=== PATIENT | female | born 1935 | race Caucasian/White ===

== ENCOUNTER → 2017-07-24 11:06 | Outpatient (CLI) | payer MEDICARE, SELFPAY ==
[2017-07-24 12:22] LABS: Absolute Lymphocyte Count 1.98 X10^3/ul (0.83-4.51); Absolute Neutrophil Count 5.2 X10^3/uL (2.0-7.7); Basophil# 0.03 X10^3/uL; Basophil% 0.4 % (0-1); Eosinophil# 0.13 X10^3/uL; Eosinophils% 1.7 % (0-5); Hematocrit 43.9 % (37-47); Hemoglobin 14.3 g/dl (12.0-15.0); Lymphocyte # 1.98 X10^3/ul (4.0); Lymphocyte % 25.2 % (19-41); Mean Corp Hgb Conc 32.6 g/gl (32-36); Mean Corpuscular Hgb 30.5 pg (27.0-32.0); Mean Corpuscular Volume 93.6 fL (81-99); Mean Platelet Vol. 10.6 fl (6.2-12.0); Monocyte# 0.53 X10^3/uL; Monocyte% 6.7 % (0-10); Neutrophil # 5.19 X10^3/uL (2.7-7.7); Neutrophil % 65.9 % (47-70); Platelet Count 262 K/mm3 (150-450); RBC Distribution Width CV 12.9 % (11.6-14.6); RBC Distribution Width SD 43.5 fl (35.1-43.9); Red Blood Count 4.69 M/mm3 (4.2-5.4); White Blood Count 7.9 K/mm3 (4.4-11.0)
[2017-07-24 12:23] LABS: International Normalized Ratio 1.6; Prothrombin Time (Protime)PT. 18.5 SECONDS (11.7-14.9)
[2017-07-24 12:36] LABS: POSITIVE COUNT NO; POSITIVE DIFFERENTIAL NO; POSITIVE MORPHOLOGY NO
[2017-07-24 12:50] LABS: AST(SGOT) 21 U/L (15-37); Alanine Aminotransfer ALT/SGPT 26 U/L (13-56); Albumin, Serum 3.6 g/dL (3.2-5.0); Alkaline Phosphatase 87 U/L (45-117); Anion Gap 8 (5-15); BUN 10 mg/dL (7-18); BUN/Creat Ratio 15.4 RATIO (10-20); Calcium,Total 8.4 mg/dL (8.5-10.1); Chloride 100 mmol/L (98-107); Cholesterol 167 mg/dL (200); Creatinine, Serum 0.65 mg/dL (0.55-1.02); EST Glomerular Filtration Rate 93 mL/min (>60); Est Glom Filt Rate - Afr Amer 113 mL/min (>60); Globulin 3.7 g/dL (2.2-4.2); Glucose 82 mg/dL (74-106); High Density Lipoprotein 39 mg/dL; Potassium 3.8 mmol/L (3.5-5.1); Protein, Total 7.3 g/dL (6.4-8.2); Sodium Level 138 mmol/L (136-145); Triglycerides 123 mg/dL; Very Low Density Lipoprotein 25 mg/dL (5-40)
== END ==
PROVIDERS: Family Provider Family Medicine; PCP Family Medicine; Visit Provider Family Medicine
DX: I48.91 Unspecified atrial fibrillation (principal); G45.9 Transient cerebral ischemic attack, unspecified
CPT/HCPCS: 36415; 80053; 80061; 85025; 85610

== ENCOUNTER 2017-07-31 13:39 | Emergency (ER) | payer MEDICARE, SELFPAY ==
[2017-07-31 13:40] VITALS: BP 158/84; PULSE 72; RESP 17; TEMP 35.8; O2SAT 97; BMI 33.5
[2017-07-31 13:56] VITALS: BP 172/73; PULSE 65; RESP 17; O2SAT 97
[2017-07-31 14:11] LABS: Bedside Glucose 130 mg/dL (70-110)
--- NOTE | 2017-07-31 14:13 | RAD_ITS ---
STUDY: X-RAY CHEST REASON FOR EXAM: Female, 82 years old. Stroke workup. TECHNIQUE: Single AP portable view of the chest. COMPARISON: 10/01/2016. FINDINGS: The lungs are clear and expanded. There is no demonstrated pleural abnormality. Sternal cerclage wires and vascular clips are present from a prior sternotomy and coronary artery bypass graft procedure (CABG). Normal mediastinum and sue. Normal visualized pulmonary arteries. Normal visualized aortic arch and descending thoracic aorta. Normal visualized thoracic spine. Normal visualized ribs, clavicles, and shoulders. There is no demonstrated abnormality of the visualized soft tissue structures of the upper abdomen. RAD/Chest 1 View IMPRESSION: No acute chest disease. Electronically Signed: Juan Martinez MD at 14:46 EST , Service support ,
--- NOTE | 2017-07-31 14:13 | EKG12_ITS ---
Test Reason : NEURO S
--- NOTE | 2017-07-31 14:13 | CT_ITS ---
STUDY: CT BRAIN WITHOUT CONTRAST REASON FOR EXAM: Female, 82 years old. Speech changes. Difficulty speaking. RADIATION DOSAGE (If Supplied By Facility): CTDIvol = ( 44.99 ) mGy, DLP = ( 762.36 ) mGycm TECHNIQUE: Transaxial CT imaging of the brain was performed without administration of intravenous contrast material. Individualized dose optimization techniques were used for this CT. COMPARISON: None. FINDINGS: Normal soft tissue structures. Normal calvarium. There is mild cerebral atrophy with widening of the extra-axial spaces and ventricular dilatation. There are areas of decreased attenuation within the white matter tracts of the supratentorial brain, consistent with microvascular disease changes. Normal basal ganglia and thalami. Normal brainstem. There is mild cerebellar atrophy. There is no intracranial hemorrhage. There are no findings of an acute ischemic infarction. Normal visualized paranasal sinuses. CT/Brain/Head without Contrast IMPRESSION: Mild atrophy and White matter disease. No acute abnormalities. Electronically Signed: Juan Martinez MD at 14:48 EST , Service support ,
[2017-07-31 14:21] LABS: Absolute Lymphocyte Count 2.39 X10^3/ul (0.83-4.51); Absolute Neutrophil Count 4.2 X10^3/uL (2.0-7.7); Basophil# 0.03 X10^3/uL; Basophil% 0.4 % (0-1); Eosinophils% 2.7 % (0-5); Hematocrit 41.6 % (37-47); Hemoglobin 13.9 g/dl (12.0-15.0); Lymphocyte # 2.39 X10^3/ul (4.0); Lymphocyte % 32.5 % (19-41); Mean Corp Hgb Conc 33.4 g/gl (32-36); Mean Corpuscular Hgb 30.8 pg (27.0-32.0); Mean Platelet Vol. 10.4 fl (6.2-12.0); Monocyte% 6.8 % (0-10); Neutrophil # 4.22 X10^3/uL (2.7-7.7); Neutrophil % 57.5 % (47-70); Platelet Count 215 K/mm3 (150-450); RBC Distribution Width CV 12.6 % (11.6-14.6); RBC Distribution Width SD 42.7 fl (35.1-43.9); Red Blood Count 4.52 M/mm3 (4.2-5.4); White Blood Count 7.4 K/mm3 (4.4-11.0)
[2017-07-31 14:22] LABS: POSITIVE COUNT NO; POSITIVE DIFFERENTIAL NO; POSITIVE MORPHOLOGY NO
[2017-07-31 14:28] LABS: International Normalized Ratio 1.8; Partial Thromboplast Time 29.8 Seconds (24.1-36.2); Prothrombin Time (Protime)PT. 20.8 SECONDS (11.7-14.9)
[2017-07-31 14:33] LABS: Anion Gap 5 (5-15); BUN 7 mg/dL (7-18); BUN/Creat Ratio 10.3 RATIO (10-20); Calcium,Total 8.2 mg/dL (8.5-10.1); Chloride 103 mmol/L (98-107); Creatinine, Serum 0.68 mg/dL (0.55-1.02); EST Glomerular Filtration Rate 89 mL/min (>60); Est Glom Filt Rate - Afr Amer 107 mL/min (>60); Estimated Creatinine Clearance 33.86 ml/min; Glucose 132 mg/dL (74-106); Potassium 3.9 mmol/L (3.5-5.1); Sodium Level 139 mmol/L (136-145)
[2017-07-31 15:13] VITALS: BP 129/93; PULSE 60; PULSE 61; RESP 17; O2SAT 95; O2SAT 96
[2017-07-31 16:30] VITALS: BP 162/78; PULSE 59; PULSE 60; RESP 15; RESP 16; O2SAT 98
--- NOTE | 2017-07-31 16:32 | ED.VISSUMM ---
- ER Visit Summary Date of Service: 07/31/17 Chief Complaint: Slurred speech History of Present Illness: The patient is a 82 F transient slurred speech starting at 130 today. States that frontal headache. No falls or head injuries. No visual changes. She is on Coumadin for history of PE and paroxysmal atrial fibrillation. A week ago INR was 1.6. She has had multiple TIAs in the past. Always speech changes. She is on cholesterol medications. States speech is resolving. No hemiparesis. No other complaints. No recent illness. Physical Examination: General: Alert and oriented ?3, no acute distress HEENT: Normocephalic, atraumatic. Moist mucosa membranes Neck: supple, nontender. Cardiovascular: Regular rate and rhythm, no murmurs Respiratory: Normal breath sounds, symmetric, no distress Abdomen: Soft, nontender, nondistended Extremities: Nontender, no edema, pulses intact ?4 Neuro: NIH equal to 1 for paresthesia of left arm and left leg. Test Results: EKG: Sinus rhythm rate of [address] or T-wave changes. CBC, BMP, troponin normal. INR 1.8. Emergency Department Course and Treatment: Evaluation there is no speech changes, NIH is a 1 for paresthesias. Bat B workup initiated. Results negative except for noting a slightly subtherapeutic INR 1.8. On reevaluation only had mild paresthesia left lower extremity. Patient currently on optimal treatment with aspirin and Coumadin therapy, she is on lipid medications. Discussed with the patient and daughter in the room. Discussed options for monitoring the hospital versus outpatient follow-up with PCP with bridging of her Coumadin. She would like to workup as an outpatient. I did speak with her PCP, Dr. Ochoa, agrees with a Lovenox bridge. She will be bridged with a 1.5mg/kg daily. Patient will have Coumadin draw tomorrow as scheduled in the clinic. He states he is already initiated MRI and MRA studies as an outpatient. Discussed this with patient and family who understands and agrees with plan. She will return if any worsening symptoms. Lovenox given the ED. Treatment Plan: Lovenox bridge Disposition: [] Impression: 1. TIA 2. Subtherapeutic INR This note was generated with Spreakeration software. It may contain incorrect words, spelling, and punctuation that were not noted in review of the chart prior to signing ED Disposition - Plan for ED Patient: Disposition: Home or Assisted Living Chief Complaint: Neuro S/Sx Diagnosis: TIA (transient ischemic attack), Subtherapeutic international normalized ratio (INR) Instructions: ED Transient Ischemic Attack Prescriptions: Enoxaparin Sodium [Lovenox] 120 mg SQ DAILY #7 syringe Referrals: Joao Simon MD [Primary Care Provider] - 1 Day Additional Instructions: INR 1.8. Have INR checked as scheduled in office tomorrow to see if Lovenox needs to be continued.
[2017-07-31] MEDS: Enoxaparin 120 MG/0.8 ML Syringe SC (16:37)
[2017-07-31 16:42] VITALS: BP 162/87; PULSE 64; RESP 18; O2SAT 99
== END 2017-07-31 16:54 | disposition home or self-care (01) ==
PROVIDERS: Emergency Provider Emergency Medicine; Family Provider Family Medicine; PCP Family Medicine
DX: G45.9 Transient cerebral ischemic attack, unspecified (principal); R79.1 Abnormal coagulation profile; Z86.73 Personal history of transient ischemic attack (TIA), and cerebral infarction without residual deficits; I25.10 Atherosclerotic heart disease of native coronary artery without angina pectoris; I10 Essential (primary) hypertension; E78.00 Pure hypercholesterolemia, unspecified; I48.0 Paroxysmal atrial fibrillation; Z86.711 Personal history of pulmonary embolism; Z95.1 Presence of aortocoronary bypass graft; Z79.01 Long term (current) use of anticoagulants; Z79.82 Long term (current) use of aspirin; Z79.899 Other long term (current) drug therapy
CPT/HCPCS: 70450; 71045; 80048; 82962; 84484; 85025; 85610; 85730; 93005; 96372; 99284; A4216

== ENCOUNTER → 2017-08-01 10:35 | Outpatient (CLI) | payer MEDICARE, SELFPAY ==
[2017-08-01 12:07] LABS: International Normalized Ratio 1.7; Prothrombin Time (Protime)PT. 20.1 SECONDS (11.7-14.9)
== END ==
PROVIDERS: Family Provider Family Medicine; PCP Family Medicine; Visit Provider Family Medicine
DX: I48.91 Unspecified atrial fibrillation (principal)
CPT/HCPCS: 36415; 85610

== ENCOUNTER → 2017-08-09 09:26 | Outpatient (CLI) | payer MEDICARE, SELFPAY ==
--- NOTE | 2017-08-09 10:15 | MRI_ITS ---
MRA Neck WO/W Contrast INDICATION: tia x 4 since 03/2017, speech disturbances, lt sided weakness COMPARISON: None TECHNIQUE: MR angiogram of the arterial structures of the neck and 2-D sweg-[id number]-ikwynq and 3-D phmr-oi-xwvzmx technique without and with IV contrast. 8 mL of Gadavist were given intravenously. 3-D admit reformatted images are provided. FINDINGS: Mild motion is present at the arch. Origins of the common carotid arteries appear within normal limits. Common carotid arteries are normal and symmetric in caliber. Mild luminal irregularities are noted at the carotid bifurcations without evidence of significant luminal narrowing at the origin of the left internal carotid artery. There is minimal luminal narrowing suggested at the origin of the right internal carotid artery. Internal carotid arteries are otherwise normal and symmetric. Posterior circulation demonstrates Origins of the vertebral arteries are not well appreciated. The vertebral arteries are normal and symmetric without evidence of luminal irregularity to the confluence to the basilar artery. MRI/MRA Neck WITH and W/O Contrast IMPRESSION: Minimal luminal irregularity suggested at the carotid bifurcations without evidence of significant luminal narrowing at the origin of the left internal carotid artery and questionable mild luminal narrowing at the origin of the right internal carotid artery. at 1236 Reported and signed by: Rossi Haro MD Electronically Signed: Rossi Haro MD at 11:34 EDT Tel , Service support ,
--- NOTE | 2017-08-09 10:15 | MRI_ITS ---
MRA Head W/O Contrast INDICATION: tia x 4 since 03/2017, speech disturbances, lt sided weakness COMPARISON: None TECHNIQUE: MR angiogram and 3-D mpvc-qe-oddjyu technique with 3-D reformatted images. FINDINGS: There is symmetric flow related signal and intracranial portions of the internal carotid arteries with symmetric supply to the anterior and middle cerebral arteries and their branching vessels. The anterior communicating artery is patent. Posterior circulation demonstrates normal appearance of the basilar artery, basilar artery gives rise to the left posterior cerebral artery, the right posterior cerebral artery appears in origin. MRI/MRA Head ONLY without Contrast IMPRESSION: No evidence of aneurysm formation or large vessel occlusion within the resolution limitations of this modality. origin of the right posterior cerebral artery, normal variation. at 1237 Reported and signed by: Rossi Haro MD Electronically Signed: Rossi Haro MD at 11:35 EDT Tel , Service support ,
== END ==
PROVIDERS: Family Provider Family Medicine; PCP Family Medicine; Visit Provider Family Medicine
DX: Z86.73 Personal history of transient ischemic attack (TIA), and cerebral infarction without residual deficits (principal)
CPT/HCPCS: 70544; 70549; A9585

== ENCOUNTER 2017-10-05 10:47 | Outpatient (RCR) | payer MEDICARE, SELFPAY ==
--- NOTE | 2017-10-05 11:58 | HP.PTEVAL ---
Patient's Visit Information ERASTO RICHARDSON is a 82 year old F referred to Physical Therapy by Joao Simon with a diagnosis of FALL RISK ,BALANCE. Date of Evaluation: 10/05/17 Physical Therapist: Westley Nance PT, - Visit Plan Frequency: 2x /Week Duration: 4 Weeks Plan: balance training,endurance activities ,PRE'S BLE,nutep - Subjective Subjective: This 82 y/o female presents to physical therapy with fall risk and balance. Patient has had balance issues past 6 months ago when spouse . Patient last incidence of falling 6 months ago. Patient fell at home legs gives way. Patient uses rollator rollator community distance. Patient reports no dizziness . Patient c/o weakness since passeed away. Patient does steps one step at a time with rail.Patient is able to do ADL'S but has limiations with stamina. 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 SOCAIL: lives alone condo. VOCATION: retired - Pain Bilateral Knee Pain Intensity (Out of 10): 4 Pain Intensity Range: 10 Comment: with walking - Objective POSTURE: mild foward posture. GAIT: ambulates with with no device slow [place] mild foward posture ,reciprocal pattern. BALANCE: good -. NEURO: intact. MMT: quads/hams 4-/5,hip flexion 4-/5,abd 3+/5,ankle 4/5. AROM: supine knee flexion 0-130 degrees. FLEXABLITY: hams min tight. STAIRS: ascend/descend 12 steps with rail one step at atime - Balance Scores Functional Gait Assessment Score: 8 % Disability: 73.3400 CATSIB Score (Max score 120 seconds): 85 - Goals Goal 1:: Independant with HEP Goal Time Frame: 4-6 Weeks Goal 2:: Patient increase strength BLE 4/5 quads/hams/hip to improve function to decrease risk of falls Goal Time Frame: 4-6 Weeks Goal 3:: Patient to improve CATSIB score to 100 to decrease risk of falls. Goal Time Frame: 4-6 Weeks Goal 4:: Patient to improve to improve function gait assessment score to 10-12 to decrease risk of falls. Goal Time Frame: 4-6 Weeks Goal 5:: Patient to improve to improve quality of gait with rollator at community distance and ambulate no device at home Goal Time Frame: 4-6 Weeks - Rehabilitation Potential Physical Therapy Diagnosis: This patient has impairments with balance deficits and weakness in legs causing difiicits in gait,fall risk and decrease stamina thus benifit from skilled PT Rehabilitation Potential: Good - Anticipated Interventions Patient/Client Instruction: Educate patient on: Condition, Plan of Care For the Purpose of:: To decrease pain, To increase oxygenation perfusion, To improve ability to perform ADL's, To increase tolerance to activity/condition/position, To improve ability of physical actions for home/community/work/leisure, To improve health of tissue, To decrease soft tissue restriction, To improve endurance, To improve safety with gait, To foster healthy habits, To improve ability to perform tasks related to life management Therapeutic Exercise to Include: Strength training, Endurance training, Balance training, Flexibilty training, Gait and locomotor training For the Purpose of:: To decrease pain, To improve muscle performance and motor function, To improve ability to perform ADL's, To increase tolerance to activity/condition/position, To improve performance and independence with ADL's, To improve ability of physical actions for home/community/work/leisure, To improve gait and locomotor functions, To increase flexibility/ROM, To improve balance, To improve safety with gait, To assume or resume ADL's, To improve ability to perform tasks related to life management Functional Training to Include: Gait training For the Purpose of:: To improve muscle performance and motor function, To increase tolerance to activity/condition/position, To improve performance and independence with ADL's, To improve ability of physical actions for home/community/work/leisure, To improve health of tissue, To decrease soft tissue restriction, To increase flexibility/ROM, To improve ability to perform tasks related to life management Thank you for the opportunity to evaluate your patient. For Medicare and Medicare HMO plans, please review the plan of care and approve it. It will need to be FAXED BACK to us at [phone] for Medicare purposes. Please let me know if there are questions or concerns regarding this plan of care. Physician Signature: Date:
--- NOTE | 2017-12-21 12:15 | HP.PTDCNRP_ITS ---
HP - Discharge Summary (1) - Patient Information ERASTO RICHARDSON was seen in my office for initial evaluation on 10/05/17. The following Plan of Care was established for this patient: Initial Frequency: 2x /Week Initial Duration: 4 Weeks - Anticipated Interventions Patient/Client Instruction: Educate patient on: Condition, Plan of Care For the Purpose of:: To decrease pain, To increase oxygenation perfusion, To improve ability to perform ADL's, To increase tolerance to activity/condition/ position, To improve ability of physical actions for home/community/work/leisure , To improve health of tissue, To decrease soft tissue restriction, To improve endurance, To improve safety with gait, To foster healthy habits, To improve ability to perform tasks related to life management Therapeutic Exercise to Include: Strength training, Endurance training, Balance training, Flexibilty training, Gait and locomotor training For the Purpose of:: To decrease pain, To improve muscle performance and motor function, To improve ability to perform ADL's, To increase tolerance to activity /condition/position, To improve performance and independence with ADL's, To improve ability of physical actions for home/community/work/leisure, To improve gait and locomotor functions, To increase flexibility/ROM, To improve balance, To improve safety with gait, To assume or resume ADL's, To improve ability to perform tasks related to life management Functional Training to Include: Gait training For the Purpose of:: To improve muscle performance and motor function, To increase tolerance to activity/condition/position, To improve performance and independence with ADL's, To improve ability of physical actions for home/ community/work/leisure, To improve health of tissue, To decrease soft tissue restriction, To increase flexibility/ROM, To improve ability to perform tasks related to life management This patient was last seen in our office . Pertinent comments regarding their Physical therapy will appear below: Patient seen for PT for balance but cancelled remander of appointments due making her worse.Thus is d/c. At this point I will be discontinuing this patient from physical therapy. I would be happy to see this patient again in the future if found appropriate by the physician. Thank you! Westley Nance, PT,
== END 2017-10-05 19:00 | disposition home or self-care (01) ==
LOC: PT 10:47
PROVIDERS: Family Provider Family Medicine; PCP Family Medicine; Visit Provider Family Medicine
DX: Z91.81 History of falling (principal); R26.81 Unsteadiness on feet
CPT/HCPCS: 97110; 97162

== ENCOUNTER → 2017-12-25 16:02 | Outpatient (CLI) | payer MEDICARE, SELFPAY ==
[2017-12-25 17:47] LABS: Anion Gap 8 (5-15); BUN 11 mg/dL (7-18); Calcium,Total 8.4 mg/dL (8.5-10.1); Chloride 103 mmol/L (98-107); Cholesterol 157 mg/dL (200); Creatinine, Serum 0.69 mg/dL (0.55-1.02); EST Glomerular Filtration Rate 87 mL/min (>60); Est Glom Filt Rate - Afr Amer 105 mL/min (>60); Glucose 84 mg/dL (74-106); High Density Lipoprotein 37 mg/dL; Sodium Level 141 mmol/L (136-145); Triglycerides 242 mg/dL; Very Low Density Lipoprotein 48 mg/dL (5-40)
== END ==
PROVIDERS: Family Provider Family Medicine; PCP Family Medicine; Visit Provider Family Medicine
DX: I10 Essential (primary) hypertension (principal)
CPT/HCPCS: 36415; 80048; 80061

== ENCOUNTER → 2018-03-30 05:58 | Outpatient (CLI) | payer MEDICARE, SELFPAY ==
[2018-03-30 08:51] LABS: Hemoglobin 14.3 g/dl (12.0-15.0); Mean Corp Hgb Conc 32.5 g/gl (32-36); Mean Corpuscular Hgb 30.7 pg (27.0-32.0); Mean Corpuscular Volume 94.4 fL (81-99); Mean Platelet Vol. 10.7 fl (6.2-12.0); Platelet Count 240 K/mm3 (150-450); RBC Distribution Width CV 12.8 % (11.6-14.6); Red Blood Count 4.66 M/mm3 (4.2-5.4); Scan Indicated on CBC? Y/N NO; White Blood Count 9.1 K/mm3 (4.4-11.0)
[2018-03-30 09:32] LABS: Anion Gap 8 (5-15); BUN 9 mg/dL (7-18); BUN/Creat Ratio 11.7 RATIO (10-20); Calcium,Total 8.4 mg/dL (8.5-10.1); Chloride 104 mmol/L (98-107); Creatinine, Serum 0.77 mg/dL (0.55-1.02); EST Glomerular Filtration Rate 77 mL/min (>60); Est Glom Filt Rate - Afr Amer 93 mL/min (>60); Glucose 129 mg/dL (74-106); Potassium 3.9 mmol/L (3.5-5.1); Sodium Level 144 mmol/L (136-145); Thyroid Stim Hormone (TSH) 3.88 uIU/mL (0.358-3.74)
--- NOTE | 2018-03-30 11:39 | STRESSREP_ITS ---
Stress Test Report Pharmacologic myocardial perfusion stress test. 82-year-old lady with a history of shortness of breath. Stress protocol: Resting EKG demonstrates normal sinus rhythm with rate of 69 bpm normal intervals and noted resting blood pressure 152/100 mmHg. 0.4 mg of regadenoson was infused per usual protocol followed Intravenous saline flush injection continuous cardiac monitor technician was performed. The maximum heart rate attained was 85 bpm which was 60% of maximum predicted heart rate the maximum workload was 1 metabolic equivalent. At rest there were no ST or T wave changes noted suggest abnormal flow reserve at peak infusion no ST or T wave changes were noted suggest abnormal flow reserve. The resting blood pressure 152/100 with a peak blood pressure of the same and a final blood pressure 140/100. Myocardial perfusion protocol. 14.6 mCi of technetium 99m sestamibi was injected at rest. 0.4 mg of regadenoson was infused per usual protocol. At peak infusion 44.7 mCi of technetium 99m sestamibi was injected stress images were obtained stress and rest images were reconstructed and compared in the short axis. Gated images were also obtained for next Perfusion SPECT analysis: Review of the stress images demonstrate normal uptake of tracer noted in all areas of the myocardium. The resting images similarly demonstrate normal uptake of tracer noted in all areas of the myocardium. No areas of reversibility are noted suggest ischemia. Gated SPECT analysis: The gated ejection fraction is 77%. Conclusion: Normal pharmacologic myocardial perfusion stress test. Preserved ejection fraction.
== END ==
PROVIDERS: Family Provider Family Medicine; PCP Family Medicine; Referring Provider Family Medicine; Visit Provider Family Medicine
DX: R06.02 Shortness of breath (principal)
CPT/HCPCS: 36415; 78452; 80048; 84443; 85027; 93017; A9500; A4216; J2785

== ENCOUNTER → 2018-06-13 10:49 | Outpatient (CLI) | payer MEDICARE, SELFPAY ==
[2018-05-25 10:39] VITALS: BMI 34.7
[2018-06-13 11:00] VITALS: PULSE 100; PULSE 107; PULSE 66; PULSE 71; PULSE 80; PULSE 84; PULSE 87; PULSE 88; O2SAT 90; O2SAT 92; O2SAT 93; O2SAT 94; O2SAT 95; O2SAT 98
--- NOTE | 2018-06-14 09:47 | WT_ITS ---
PSN 6 Minute Walk Test - 6 Minute Walk Test 6 Minute Walk Test: 6 Minute Walk Test PSN:6-Minute Walk Test Start: 06/13/18 11:16 Freq: Status: Active Protocol: RESP.6MINW Document 06/13/18 11:00 [facility] (Rec: 06/13/18 11:20 [facility] [id number]) 6 Minute Walk Test Date Performed 06/13/18 Time Performed 11:00 Height 5 ft 1 in Weight: 178 lb Weight in Pounds 178.[address]: Felipe Gee Assistive device used: None Pre-test Oxygen Delivery Method Room Air Pulse Ox (%) 95 Pulse Rate (60-100 beats/min) 66 Dyspnea Dianna Scale (0-10) 0 Exertion Dianna Scale (6-20) 6 1st minute Oxygen Delivery Method Room Air Pulse Ox (%) 98 Pulse Rate (60-100 beats/min) 80 Number of Rests Taken 0 2nd minute Oxygen Delivery Method Room Air Pulse Ox (%) 92 Pulse Rate (60-100 beats/min) 84 Number of Rests Taken 0 3rd minute Oxygen Delivery Method Room Air Pulse Ox (%) 95 Pulse Rate (60-100 beats/min) 87 Number of Rests Taken 0 4th minute Oxygen Delivery Method Room Air Pulse Ox (%) 92 Pulse Rate (60-100 beats/min) 88 Number of Rests Taken 0 Reported Symptoms Increased Work of Breathing 5th minute Oxygen Delivery Method Room Air Pulse Ox (%) 93 Pulse Rate (60-100 beats/min) 100 Number of Rests Taken 0 Reported Symptoms Increased Work of Breathing 6th minute Oxygen Delivery Method Room Air Pulse Ox (%) 90 Pulse Rate (60-100 beats/min) 107 H Reported Symptoms Increased Work of Breathing Post-test Oxygen Delivery Method Room Air Pulse Ox (%) 94 Pulse Rate (60-100 beats/min) 71 Dyspnea Dianna Scale (0-10) 3 Exertion Dianna Scale (6-20) 12 Full Laps Walked 14 Partial Lap, Number of Tiles Walked 20 Total Distance Walked (ft) 846 - Interpretation Interpretation: The patient ambulated 846 feet over the course of 6 minutes beginning on room air without assistive devices or breaks. Pretesting oxygen saturation was noted to be 95% on room air. With ambulation, the gloria oxygen saturation was 90%. This represents a significant exertional oxygen desaturation. - Recommendations Recommendations: There is no indication for the use of supplemental oxygen at this time. However, close interval follow-up is recommended, given the degree of oxygen desaturation noted during this study.
--- OUTSIDE RECORDS SUMMARY | 2018-08-18 06:30 | XMS RPT_ITS ---
:1935 Author Organization OHIP Support Name Relationship Address Phone MARIBELL GRIER Unavailable [address] + [place] [address] R Unavailable Unavailable Unavailable MARIBELL GRIER Unavailable [address] + [place] [address] R Unavailable Unavailable Unavailable MARIBELL GRIER Unavailable [address] + [place] [address] R Unavailable Unavailable Unavailable MARIBELL GRIER Unavailable [address] + [place] [address] R Unavailable Unavailable Unavailable MARIBELL GRIER Unavailable [address] + [place] [address] R Unavailable Unavailable Unavailable MARIBELL GRIER Unavailable [address] + [place] [address] R Unavailable Unavailable Unavailable MARIBELL GRIER Unavailable [address] + [place] [address] R Unavailable Unavailable Unavailable MARIBELL GRIER Unavailable [address] + [place] [address] R Unavailable Unavailable Unavailable MARIBELL GRIER Unavailable [address] + [place] [address] R Unavailable Unavailable Unavailable MARIBELL GRIER Unavailable [address] + [place] [address] R Unavailable Unavailable Unavailable MARIBELL GRIER Unavailable [address] + [place] [address] R Unavailable Unavailable Unavailable R Unavailable Unavailable Unavailable MARIBELL GRIER Unavailable [address] + [place] [address] R Unavailable Unavailable Unavailable CAIN BIRD Unavailable [address] + [place] [address] Care Team Providers Name Role Phone Felipe Brown, D.O. Attending Unavailable Simon, Joao Referring Unavailable Dangelo Kendall.OJose Attending Unavailable Dangelo Kendall.OJose Referring Unavailable Simon, Joao Primary Care Unavailable Simon, Joao Attending Unavailable Simon, Joao Primary Care Unavailable Simon, Joao Primary Care Unavailable Se Schmidt Attending Unavailable Dangelo Kendall.O. Attending Unavailable Dangelo Kendall.O. Referring Unavailable Simon, Joao Primary Care Unavailable Dangelo Kendall.OJose Attending Unavailable Dangelo Kendall.OJose Referring Unavailable Simon, Joao Attending Unavailable Simon, Joao Primary Care Unavailable Simon, Joao Attending Unavailable Simon, Joao Referring Unavailable Simon, Joao Primary Care Unavailable Simon, Joao Attending Unavailable Simon, Joao Referring Unavailable Simon, Joao Primary Care Unavailable Simon, Joao Attending Unavailable Simon, Joao Primary Care Unavailable Simon, Joao Attending Unavailable Simon, Joao Referring Unavailable Simon, Joao Primary Care Unavailable Antonieta, Rickey Attending Unavailable Simon, Joao Referring Unavailable PROBLEMS PROBLEMS DATE TYPE CONDITION / CODE ATTENDING STATUS SOURCE 06/22/2018 Unknown R06.02 - Shortness Felipe Gee, Active [place] of breath / D.O. 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 Status: REG CLI Ordering Dr: Date: Location: [facility] Sex: F C COMPLETE PULMONARY FUNCTION TEST INTERPRETATION Brief HPI: Patient is an 82 year old female, currently under the care of Dr. Gee, who presents to [facility] for complete pulmonary function tests secondary to diagnosis of dyspnea. Respiratory therapist reports good effort and reproducible results. Interpretation: Forced expiration spirometry shows no large airways obstructive ventilatory defect with an FEV1 of 84% predicted. There is no significant bronchodilator response by strict ATS criteria. Spirograms are of good quality and plateau normally. The respiratory flow volume loop shows a normal pattern. Lung volumes by body plethysmography show a decreased total lung capacity at 3.08 L, 75% predicted. All other lung volumes are reduced symmetrically. Diffusion capacity by carbon monoxide is normal at 63% predicted. The airway resistance is normal. No previous pulmonary function tests were available for review. Impression: Mild restrictive ventilatory defect with symmetric reduction diffusion capacity. 06/21/18 0656 <Electronically signed by Phillip Tovar MD> Date Phillip Tovar MD CC: Phillip Tovar MD; Felipe Gee D.O.; Joao Simon MD Date Dictated: 06/21/1854 Date Transcribed: 06/21/18653 Veterinary Medical Officer: BA Signed 6 MINUTE WALK TEST Observed: 06/14/2018 Status: F Source: [place] 9:47 AM [facility] REPOSITORY [facility] Pulmonary Services/Neurology [address] [place], [place] [id number] MR#: [id number] Acct: [id number] Name: COLETTE RICHARDSON Rep #: [id number] : 1935 82 From: Felipe Gee DO Referring Dr: Felipe Gee D.O. Date: Ordering Dr: Sex: F C Location: [facility] PSN 6 Minute Walk Test - 6 Minute Walk Test 6 Minute Walk Test: 6 Minute Walk Test PSN:6-Minute Walk Test Start: 06/13/18 11:16 Freq: Status: Active Protocol: RESP.6MINW Document 06/13/18 11:00 [facility] (Rec: 06/13/18 11:20 [facility] [id number]) 6 Minute Walk Test Date Performed 06/13/18 Time Performed 11:00 Height 5 ft 1 in Weight: 178 lb Weight in Pounds 178.[address]: Felipe Gee Assistive device used: None Pre-test Oxygen Delivery Method Room Air Pulse Ox (%) 95 Pulse Rate (60-100 beats/min) 66 Dyspnea Dianna Scale (0-10) 0 Exertion Dianna Scale (6-20) 6 1st minute Oxygen Delivery Method Room Air Pulse Ox (%) 98 Pulse Rate (60-100 beats/min) 80 Number of Rests Taken 0 2nd minute Oxygen Delivery Method Room Air Pulse Ox (%) 92 Pulse Rate (60-100 beats/min) 84 Number of Rests Taken 0 3rd minute Oxygen Delivery Method Room Air Pulse Ox (%) 95 Pulse Rate (60-100 beats/min) 87 Number of Rests Taken 0 4th minute Oxygen Delivery Method Room Air Pulse Ox (%) 92 Pulse Rate (60-100 beats/min) 88 Number of Rests Taken 0 Reported Symptoms Increased Work of Breathing 5th minute Oxygen Delivery Method Room Air Pulse Ox (%) 93 Pulse Rate (60-100 beats/min) 100 Number of Rests Taken 0 Reported Symptoms Increased Work of Breathing 6th minute Oxygen Delivery Method Room Air Pulse Ox (%) 90 Pulse Rate (60-100 beats/min) 107 H Reported Symptoms Increased Work of Breathing Post-test Oxygen Delivery Method Room Air Pulse Ox (%) 94 Pulse Rate (60-100 beats/min) 71 Dyspnea Dianna Scale (0-10) 3 Exertion Dianna Scale (6-20) 12 Full Laps Walked 14 Partial Lap, Number of Tiles Walked 20 Total Distance Walked (ft) 846 - Interpretation Interpretation: The patient ambulated 846 feet over the course of 6 minutes beginning on room air without assistive devices or breaks. Pretesting oxygen saturation was noted to be 95% on room air. With ambulation, the gloria oxygen saturation was 90%. This represents a significant exertional oxygen desaturation. - Recommendations Recommendations: There is no indication for the use of supplemental oxygen at this time. However, close interval follow-up is recommended, given the degree of oxygen desaturation noted during this study. [address] <Electronically signed by Felipe Gee DO> Date Felipe Gee DO CC: Date Dictated: 06/14/18945 Date Transcribed: 06/14/18945 Veterinary Medical Officer: Felipe Gee DO Signed PULMONARY VISIT REPORT Observed: 05/25/2018 Status: F Source: [place] 11:37 AM [facility] REPOSITORY [facility] [place] [address] [place] [address] OFFICE VISIT Date of Service: 05/25/18 MR#: [id number] Acct: [id number] Name: COLETTE RICHARDSON Rep #: [id number] : 1935 Provider: Felipe Gee D.O. Age/Sex: 82/F Location[place] [facility] Status: Signed Assessment AND Plan 1. Shortness of breath R06.02 Plan The patient's shortness of breath is currently undifferentiated. While in office spirometry did reveal findings suggestive of restriction, lung volumes would need to be obtained to confirm this assertion. She does have underlying heart failure with preserved ejection fraction, along with mild pulmonary hypertension noted on her most recent echocardiogram from September 2017. She also recently had a negative cardiac stress test. There have been no recent medication changes or introduction of new medications. At this time, I would recommend obtaining a full set of pulmonary function studies. In addition, I am also going to ask that the patient obtain a 6-minute walk test to assess for any exertional hypoxemia. She does not currently endorse any symptoms concerning for overt sleep disordered breathing. Further recommendations will be forthcoming, pending the outcome of her testing aforementioned. Orders Orders: 2. 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 Obesity E66.9 Plan Weight loss through dietary modification and a graded exercise regimen is strongly encouraged. Plan Detail Follow Up 1 Month (DMB) HPI HPI Comments Details: The patient is an 82 year old female who presents to the clinic today in referral for evaluation of shortness of breath. The patient is currently being followed by Dr. Simon of [facility]. In office spirometry completed in March 2018 revealed a preserved FEV1 to FVC ratio. The FVC was noted to be decreased, which could be related to an underlying restrictive impairment. However, lung volumes would have needed to have been completed to confirm this diagnosis. The patient reports the presence of gradually worsening exertional shortness of breath over the course of the last several years. She does report occasional wheezing but denies the presence of chest tightness. She has a history of paroxysmal atrial fibrillation and is currently anticoagulated on Coumadin. Based upon her last surface echocardiogram, she has underlying heart failure with preserved ejection fraction along with mild pulmonary hypertension. 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 She does have a smoking history that includes 1 pack/day x 15 years, having quit completely in 1979. She did also grow up in a smoking household. She denies ever having been diagnosed with asthma in childhood. She denies any significant recent weight changes. She does also report a history of prior pulmonary embolism, sometime within the last 10 years. She does currently keep a cat as a pet in her home environment and does report that with allergy testing done previously she did have a slight reaction to cat dander. When she does experience her episodes of dyspnea, she denies any choking sensation in her throat. She denies fevers, chills or night sweats. She denies chest pain, dizziness or lightheadedness. It does appear that the patient also underwent a cardiac stress test in March which was negative. Intake Vital Signs05/25/18 Height 5 ft 1 in 05/25/18 Weight: 184 lb Intake Visit Reasons: Shortness of breath Accompanied by: Daughter Allergies Penicillins Allergy (Verified 05/25/18 10:40) Anaphylaxis acetaminophen [From Vicodin] Adverse Reaction (Verified 05/25/18 10:40) Itching codeine Adverse Reaction (Verified 05/25/18 10:40) Nausea ezetimibe [From Zetia] Adverse Reaction (Verified 05/25/18 10:40) Itching hydrocodone bitartrate [From Vicodin] Adverse Reaction (Verified 05/25/18 10:40) Itching Dewkhky-Zlh-Ird Reductase Inhibitor Adverse Reaction (Verified 05/25/18 10:40) Other Medications ALPRAZolam [Xanax] 0.25 mg PO QHS 04/20/13 [History Confirmed 05/17/18] Furosemide [Lasix] 20 mg PO DAILY 04/20/13 [History Confirmed 05/17/18] Venlafaxine HCl [Effexor] 75 mg PO QHS 04/20/13 [History Confirmed 05/17/18] Warfarin [Coumadin] 5 mg PO DAILY 04/20/13 [History Confirmed 05/17/18] traZODone [Desyrel] 100 mg PO QHS 04/20/13 [History Confirmed 05/17/18] Atorvastatin Calcium [Lipitor] 40 mg PO QHS 10/01/16 [History Confirmed 05/17/18] Venlafaxine HCl [Venlafaxine HCl ER] 150 mg PO DAILY 10/01/16 [History Confirmed 05/17/18] Lisinopril [Zestril] 40 mg PO DAILY 07/31/17 [History Confirmed 05/17/18] Metoprolol Tartrate [Lopressor (beta bora)] 100 mg PO BID 07/31/17 [History Confirmed 05/17/18] anastrozole 1 mg tablet 1 mg PO DAILY 05/17/18 [History Confirmed 05/17/18] [facility] Medical History Hypotension (Acute) Diarrhea (Acute) Atrial fibrillation with RVR (Acute) Non-ST elevation [place] (NSTEMI) (Acute) Atrial fibrillation (Chronic) Bilateral breast cancer (Chronic) Depression (Chronic) Coronary artery disease (Chronic) Hypertension (Chronic) Surgical History History of open heart surgery (Resolved) History of appendectomy (Resolved) Status post coronary artery bypass graft (Chronic) Social History Smoking Status: Former smoker how long ago did patient quit smokin, 1ppd second hand exposure: Yes Review of Systems Const CONSTITUTIONAL: Positive fatigue; negative anorexia, body ache, chills, daytime sleepiness, fever(s), night sweats, oral thrush, stops breathing during sleep, weight loss, sleeping in chair, weight loss, weight gain, frequent colds, seasonal allergies, other, headache(s) or orthopnea EETM Ear Nose Throat Mouth: Positive hearing normal, nasal discharge and post nasal drip; negative hard of hearing, hoarseness, dry mouth in morning, change in vision, itchy eyes, eye pain, swallowing Difficulty, ear pain, nose bleed, headache(s), mouth pain, nasal congestion, sinus pain, sinus pressure, sore throat or other Cardio Cardiovascular: Negative chest pain, chest pain at rest, chest pain with activity, irregular heart rhythm, edema, shortness of breath when lying down, palpitations, murmur or other Resp Respiratory: Positive as per HPI, shortness of breath shortness of breath: Positive with activity, while talking and worsening, wheezing and cough cough: Positive non-productive; negative pain with cough, chest congestion, chest tightness, pain on inspiration, inhalers, increase use of rescue inhalers, snoring, apnea or other Gastro Gastrointestional: Negative bloody stools, change in appetite, difficulty swallowing, reflux, hematemesis, melena stool, loose stool, constipation or other Genitourinary: Negative blood in urine, nocturia, pain with urination or other Musc Musculoskeletal: Negative body pain, back pain, neck pain or other Skin/Breast Skin/Breast: Negative dry skin, itching, rash, unusual bruising, breast lump or other Neuro Neurological: Negative restless legs, confusion, weakness or other Psych Psychocological: Negative abnormal sleep pattern, anxiety, thoughts of hurting self/others, hopelessness or other Lymph Lymphatic: Negative easy bleeding, easy bruising, swollen lymph nodes or other Exam Const Constitutional: Positive conversant, cooperative, in no acute respiratory distress, well developed, well nourished, good hygiene and obese Head Head: Positive normocephalic and atraumatic; negative cyanosis of lips/distal nose Eyes Eye: Positive clear conjunctiva; negative nystagmus or scleral abnormality Ears Ear: Positive hearing normal and external ears normal; negative hard of hearing Nose Nose: Positive external nose normal; negative epistaxis Mouth Mouth: Positive oral mucosae normal, posterior oropharynx is adequate and post nasal drip; negative no lesions Mallampati Score: II: Mallampati Score Neck Neck: Positive normal visual inspection and trachea midline; negative lymphadenopathy Chest Wall Chest: Positive symmetric chest movement Normal AP diameter. Resp lung sounds: Positive good air exchange and normal expiratory time; negative wheezes, rhonchi or rales Cardio Cardiac: Positive regular rate, regular rhythm, S1 normal and S2 normal; negative rub, gallop or murmur GI GI: Positive normal bowel sounds and obese Soft without distention Genitourinary: Positive deferred Musc Musculoskeletal: Positive steady gait Skin Pulmonary Skin Exam: Positive intact; negative lesion, ulcers, dermal atrophy or rash Pulses Pulse: Yes Pedal pulses present: Extremities Extremities: No clubbing, No cyanosis, Yes edema (Trace LE) Neuro Neurologic: Yes conversant, Yes no focal neuro deficits, Yes cooperative Lymph Lymphatic: No lymphadenopathy Psych Appearance: Positive grossly normal Mental Status: Positive mental status grossly normal Mood: Positive congruent mood Affect: Positive normal affect Coding Level of Care Code Off vis,new,level 4 Diagnoses Shortness of breath R06.02 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 Obesity E66.9 05/25/18 1137 <Electronically signed by Felipe Gee DO> Date Felipe Gee DO Cosigner Signature: Date (if applicable) CC: Joao Simon MD STRESS REPORT Observed: 03/30/2018 Status: F Source: [place] 11:39 AM [facility] REPOSITORY [facility] Cardiovascular Services [address] [place] [id number] MR#: [id number] Acct: [id number] Name: COLETTE RICHARDSON Rep #: [id number] : 1935 82 From: Rickey Fung MD Primary Care: Joao Simon MD Status: REG CLI Ordering Dr: Sex: F C Stress Test Report Pharmacologic myocardial perfusion stress test. 82-year-old lady with a history of shortness of breath. Stress protocol: Resting EKG demonstrates normal sinus rhythm with rate of 69 bpm normal intervals and noted resting blood pressure 152/100 mmHg. 0.4 mg of regadenoson was infused per usual protocol followed Intravenous saline flush injection continuous quality assurance monitor body was performed. The maximum heart rate attained was 85 bpm which was 60% of maximum predicted heart rate the maximum workload was 1 metabolic equivalent. At rest there were no ST or T wave changes noted suggest abnormal flow reserve at peak infusion no ST or T wave changes were noted suggest abnormal flow reserve. The resting blood pressure 152/100 with a peak blood pressure of the same and a final blood pressure 140/100. Myocardial perfusion protocol. 14.6 mCi of technetium 99m sestamibi was injected at rest. 0.4 mg of regadenoson was infused per usual protocol. At peak infusion 44.7 mCi of technetium 99m sestamibi was injected stress images were obtained stress and rest images were reconstructed and compared in the short axis. Gated images were also obtained for next Perfusion SPECT analysis: Review of the stress images demonstrate normal uptake of tracer noted in all areas of the myocardium. The resting images similarly demonstrate normal uptake of tracer noted in all areas of the myocardium. No areas of reversibility are noted suggest ischemia. Gated SPECT analysis: The gated ejection fraction is 77%. Conclusion: Normal pharmacologic myocardial perfusion stress test. Preserved ejection fraction. 03/30/18 1139 <Electronically signed by Rickey Fung MD> Date Rickey Fung MD CC: Joao Simon MD Date Dictated: 03/30/18 113 Date Transcribed: 03/30/181132 Veterinary Medical Officer: CO Signed CBC-COMPLETE BLOOD CNT Collected: 03/30/2018 Status: F Source: [place] NO DIFF 6:15 AM [facility] REPOSITORY TYPE CODE TESTS RESULT OUT OF RANGE REFERENCE UNITS LAB L100.1000 4.4-11.0 K/mm3 Normal WBC 9.1 LAB L100.1200 4.2-5.4 M/mm3 Normal RBC 4.66 LAB L100.1300 12.0-15.0 g/dl Normal HGB 14.3 LAB L100.1400 37-47 % Normal HCT 44.0 LAB L100.1500 81-99 fL Normal MCV 94.4 LAB L100.1600 27.0-32.0 pg Normal MCH 30.7 LAB L100.1700 32-36 g/gl Normal MCHC 32.5 LAB L100.1810 11.6-14.6 % Normal RDW CV 12.8 LAB L100.1820 35.1-43.9 fl High RDW SD 44.0 LAB L100.1900 150-450 K/mm3 Normal PLT 240 LAB L100.2000 6.2-12.0 fl Normal MPV 10.7 Performed By: #### L100.0500 #### [facility] [address] [place], [place], [id number] BASIC METABOLIC Collected: 03/30/2018 Status: F Source: [place] PROFILE (BMP) 6:15 AM [facility] REPOSITORY TYPE CODE TESTS RESULT OUT OF RANGE REFERENCE UNITS LAB L501.0100 74-106 mg/dL High GLU 129 Result Comment: Fasting Glucose result greater than or equal to 126 mg/dL suggests DIABETES MELLITUS per A.D.A. criteria. Please note revised GLUCOSE reference range effective 2017. LAB L501.1000 7-18 mg/dL Normal BUN 9 LAB L501.1100 0.55-1.02 mg/dL Normal CREAT,SERUM 0.77 Result Comment: The validity of the calculated GFR AND GFRAA in patients over 70 years has not been determined. Clinical correlation is essential. LAB L501.1110 >60 mL/min Normal EST GFR 77 Result Comment: Non- GFR Calc LAB L501.1115 >60 mL/min Normal EST GFR - AA 93 Result Comment: GFR Calc LAB L501.1300 10-20 RATIO Normal BUN/CRE 11.7 LAB L501.2200 8.5-10.1 mg/dL Low CA 8.4 LAB L501.5300 136-145 mmol/L NA Normal 144 LAB L501.5600 3.5-5.1 mmol/L K Normal 3.9 LAB L501.5900 98-107 mmol/L CL Normal 104 LAB L501.6100 21.0-32.0 mmol/L Normal CO2 32.0 LAB L501.6200 5-15 Normal GAP 8 Performed By: #### L500.2500, L501.9520 #### [facility] [address] [place], [place], [id number] THYROID STIM HORMONE Collected: 03/30/2018 Status: F Source: [place] (TSH) 6:15 AM [facility] REPOSITORY TYPE CODE TESTS RESULT OUT OF RANGE REFERENCE UNITS LAB L501.9520 0.358-3.74 uIU/mL High TSH 3.88 Performed By: #### L500.2500, L501.9520 #### [facility] [address] [facility] [place], [place], [id number] BASIC METABOLIC Collected: 12/25/2017 Status: F Source: [place] PROFILE (BMP) 4:04 PM [facility] REPOSITORY TYPE CODE TESTS RESULT OUT OF RANGE REFERENCE UNITS LAB L501.0100 74-106 mg/dL Normal GLU 84 Result Comment: Please note revised GLUCOSE reference range effective 2017. LAB L501.1000 7-18 mg/dL Normal BUN 11 LAB L501.1100 0.55-1.02 mg/dL Normal CREAT,SERUM 0.69 Result Comment: The validity of the calculated GFR AND GFRAA in patients over 70 years has not been determined. Clinical correlation is essential. LAB L501.1110 >60 mL/min Normal EST GFR 87 Result Comment: Non- GFR Calc LAB L501.1115 >60 mL/min Normal EST GFR - AA 105 Result Comment: GFR Calc LAB L501.1300 10-20 RATIO Normal BUN/CRE 16.0 LAB L501.2200 8.5-10.1 mg/dL Low CA 8.4 LAB L501.5300 136-145 mmol/L NA Normal 141 LAB L501.5600 3.5-5.1 mmol/L K Normal 4.0 LAB L501.5900 98-107 mmol/L CL Normal 103 LAB L501.6100 21.0-32.0 mmol/L Normal CO2 30.0 LAB L501.6200 5-15 Normal GAP 8 Performed By: #### L500.2500, L500.4100 #### [facility] [address] [place], [address] LIPID PROFILE Collected: 12/25/2017 Status: F Source: [place] 4:04 PM [facility] REPOSITORY TYPE CODE TESTS RESULT OUT OF RANGE REFERENCE UNITS LAB L501.4900 200 mg/dL Normal CHOL 157 Result Comment: <200 mg/dL Desirable 200-240 mg/dL Borderline >240 mg/dL High Risk LAB L501.5000 mg/dL High TRIG 242 Result Comment: The drugs N-Acetylcysteine and Metamizole may falsely depress this assay. Serum Triglycerides Reference Interval Normal <150 mg/dL Borderline high 150 - 199 mg/dL High 200 - 499 mg/dL Very High > or = 500 mg/dL LAB L501.6400 mg/dL Low HDL 37 Result Comment: The drugs N-Acetylcysteine and Metamizole may falsely depress this assay. Reference Range HDL <40 mg/dL Low HDL Cholesterol HDL >or= 60 mg/dL High HDL Cholesterol LAB L501.6500 0-130 mg/dL Normal LDL 72 LAB L501.6600 5-40 mg/dL High VLDL 48 Performed By: #### L500.2500, L500.4100 #### [facility] [address] [place], [address] INITAL EVALUATION (1) Observed: 10/05/2017 Status: F Source: [place] - PT 3:32 PM [facility] REPOSITORY [facility] [address] [address] [place], [place] [address] Fax REHABILITATION SERVICES INITIAL EVALUATION MR#: [id number] Acct: [id number] Name: COLETTE RICHARDSON Rep #: [id number] : 1935 82 From: Westley Nance PT, Cert. MDT, OCS Referring Dr.: Joao Simon MD Status: REG RCR Insurance: [facility] MEDICARE SELF PAY INSURANCE Patient's Visit Information COLETTE RICHARDSON is a 82 year old F referred to Physical Therapy by Joao Simon with a diagnosis of FALL RISK ,BALANCE. Date of Evaluation: 10/05/17 Physical Therapist: Westley Nance PT, - Visit Plan Frequency: 2x /Week Duration: 4 Weeks Plan: balance training,endurance activities ,PRE'S BLE,nutep - Subjective Subjective: This 82 y/o female presents to physical therapy with fall risk and balance. Patient has had balance issues past 6 months ago when spouse . Patient last incidence of falling 6 months ago. Patient fell at home legs gives way. Patient uses rollator rollator community distance. Patient reports no dizziness . Patient c/o weakness since passeed away. Patient does steps one step at a time with rail.Patient is able to do ADL'S but has limiations with stamina. 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 SOCAIL: lives alone condo. VOCATION: retired - Pain Bilateral Knee Pain Intensity (Out of 10): 4 Pain Intensity Range: 10 Comment: with walking - Objective POSTURE: mild foward posture. GAIT: ambulates with with no device slow [place] mild foward posture ,reciprocal pattern. BALANCE: good -. NEURO: intact. MMT: quads/hams 4-/5,hip flexion 4-/5,abd 3+/5,ankle 4/5. AROM: supine knee flexion 0-130 degrees. FLEXABLITY: hams min tight. STAIRS: ascend/descend 12 steps with rail one step at atime - Balance Scores Functional Gait Assessment Score: 8 % Disability: 73.3400 CATSIB Score (Max score 120 seconds): 85 - Goals Goal 1:: Independant with HEP Goal Time Frame: 4-6 Weeks Goal 2:: Patient increase strength BLE 4/5 quads/hams/hip to improve function to decrease risk of falls Goal Time Frame: 4-6 Weeks Goal 3:: Patient to improve CATSIB score to 100 to decrease risk of falls. Goal Time Frame: 4-6 Weeks Goal 4:: Patient to improve to improve function gait assessment score to 10-12 to decrease risk of falls. Goal Time Frame: 4-6 Weeks Goal 5:: Patient to improve to improve quality of gait with rollator at community distance and ambulate no device at home Goal Time Frame: 4-6 Weeks - Rehabilitation Potential Physical Therapy Diagnosis: This patient has impairments with balance deficits and weakness in legs causing difiicits in gait,fall risk and decrease stamina thus benifit from skilled PT Rehabilitation Potential: Good - Anticipated Interventions Patient/Client Instruction: Educate patient on: Condition, Plan of Care For the Purpose of:: To decrease pain, To increase oxygenation perfusion, To improve ability to perform ADL's, To increase tolerance to activity/condition/position, To improve ability of physical actions for home/community/work/leisure, To improve health of tissue, To decrease soft tissue restriction, To improve endurance, To improve safety with gait, To foster healthy habits, To improve ability to perform tasks related to life management Therapeutic Exercise to Include: Strength training, Endurance training, Balance training, Flexibilty training, Gait and locomotor training For the Purpose of:: To decrease pain, To improve muscle performance and motor function, To improve ability to perform ADL's, To increase tolerance to activity/condition/position, To improve performance and independence with ADL's, To improve ability of physical actions for home/community/work/leisure, To improve gait and locomotor functions, To increase flexibility/ROM, To improve balance, To improve safety with gait, To assume or resume ADL's, To improve ability to perform tasks related to life management Functional Training to Include: Gait training For the Purpose of:: To improve muscle performance and motor function, To increase tolerance to activity/condition/position, To improve performance and independence with ADL's, To improve ability of physical actions for home/community/work/leisure, To improve health of tissue, To decrease soft tissue restriction, To increase flexibility/ROM, To improve ability to perform tasks related to life management Thank you for the opportunity to evaluate your patient. For Medicare and Medicare HMO plans, please review the plan of care and approve it. It will need to be FAXED BACK to us at [phone] for Medicare purposes. Please let me know if there are questions or concerns regarding this plan of care. Physician Signature: Date: <Electronically signed by Westley Nance PT, Cert. T, OCS> 10/05/17 1532 CC: Joao Simon MD EKATERINA Signed For Medicare only, by signing this I certify the plan of care. Physicians Signature Date CNCO Observed: 09/08/2017 Status: COMPLETED Source: [facility] 12:00 AM CLINIC OTHER CAMPUS REPOSITORY Letter Text [facility] [place] [address] [place] [address] Dept: [phone] Dept Fredo Kathleen MD September 08, 2017 Colette Richardson [address] [place] [address] 1935 Dear Colette Richardson, We missed seeing you for your scheduled appointment with Dr. Kathleen on 09/05/17. Our goal is to offer the best possible care to our patients, so we are concerned when you are unable to keep a scheduled appointment. Please call us at [phone] so that we can reschedule your appointment for a day and time that will work for you. If you find it difficult to keep your appointment, please notify our office at least 24 hours in advance so that we may reschedule your appointment. We are glad that you have chosen [facility] for your cardiovascular needs and hope to continue serving you in the future. Sincerely, Fredo Kathleen MD (Signed electronically to expedite mailing) MRA NECK WITH AND W/O Observed: 08/09/2017 Status: F Source: [place] CONTRAST 10:16 AM [facility] REPOSITORY [facility] Imaging Services [address] [facility] [place] [address] MRA Neck WITH and W/O Contrast MR#: [id number] Acct: [id number] Name: COLETTE RICHARDSON Rep #: [id number] : 1935 F 82 From: Rossi Haro MD PCP: Joao Simon MD Status: REG CLI Study: MRA Neck WITH and W/O Contrast Date of Exam: 08/09/17 Exam# [id number] Ordering Dr: Joao Simon MD MRA Neck WO/W Contrast INDICATION: tia x 4 since 03/2017, speech disturbances, lt sided weakness COMPARISON: None TECHNIQUE: MR angiogram of the arterial structures of the neck and 2-D hmzz-ys-dflfsl and 3-D fgmk-nt-fjkxhi technique without and with IV contrast. 8 mL of Gadavist were given intravenously. 3-D admit reformatted images are provided. FINDINGS: Mild motion is present at the arch. Origins of the common carotid arteries appear within normal limits. Common carotid arteries are normal and symmetric in caliber. Mild luminal irregularities are noted at the carotid bifurcations without evidence of significant luminal narrowing at the origin of the left internal carotid artery. There is minimal luminal narrowing suggested at the origin of the right internal carotid artery. Internal carotid arteries are otherwise normal and symmetric. Posterior circulation demonstrates Origins of the vertebral arteries are not well appreciated. The vertebral arteries are normal and symmetric without evidence of luminal irregularity to the confluence to the basilar artery. MRI/MRA Neck WITH and W/O Contrast IMPRESSION: Minimal luminal irregularity suggested at the carotid bifurcations without evidence of significant luminal narrowing at the origin of the left internal carotid artery and questionable mild luminal narrowing at the origin of the right internal carotid artery. at 1236 Reported and signed by: Rossi Haro MD Electronically Signed: Rossi Haro MD at 11:34 EDT Tel , Service support , CC: Joao Simon MD Veterinary Medical Officer: Signed MRA HEAD ONLY WITHOUT Observed: 08/09/2017 Status: F Source: [place] CONTR[place] 10:16 AM [facility] REPOSITORY [facility] Imaging Services [address] [place] [address] MRA Head ONLY without Contrast MR#: [id number] Acct: [id number] Name: COLETTE RICHARDSON Rep #: [id number] : 1935 F 82 From: Rossi Haro MD PCP: Joao Simon MD Status: REG CLI Study: MRA Head ONLY without Contrast Date of Exam: 08/09/17 Exam# [id number] Ordering Dr: Joao Simon MD MRA Head W/O Contrast INDICATION: tia x 4 since 03/2017, speech disturbances, lt sided weakness COMPARISON: None TECHNIQUE: MR angiogram and 3-D ddsy-sa-ginzjl technique with 3-D reformatted images. FINDINGS: There is symmetric flow related signal and intracranial portions of the internal carotid arteries with symmetric supply to the anterior and middle cerebral arteries and their branching vessels. The anterior communicating artery is patent. Posterior circulation demonstrates normal appearance of the basilar artery, basilar artery gives rise to the left posterior cerebral artery, the right posterior cerebral artery appears in origin. MRI/MRA Head ONLY without Contrast IMPRESSION: No evidence of aneurysm formation or large vessel occlusion within the resolution limitations of this modality. origin of the right posterior cerebral artery, normal variation. at 1237 Reported and signed by: Rossi Haro MD Electronically Signed: Rossi Haro MD at 11:35 EDT Tel , Service support , CC: Joao Simon MD Veterinary Medical Officer: Signed 12 LEAD ELECTROCARDIOGRAM Observed: 08/01/2017 Status: F Source: [place] 2:24 PM [facility] REPOSITORY [facility] Cardiovascular Services [address] [place] [address] 12 Lead EKG 07/31/17 1356 MR#: [id number] Acct: [id number] Name: COLETTE RICHARDSON Rep #: [id number] : 1935 82 From: Rickey Fung MD Attending Dr: Status: DEP ER Ordering Dr: Se Schmidt DO Date: 07/31/17 Location: ED Sex: F C Admitted: Test Reason : NEURO S Blood Pressure : / mmHG Vent. Rate : 064 BPM Atrial Rate : 064 BPM P-R Int : 152 ms QRS Dur : 094 ms QT Int : 430 ms P-R-T Axes : 043 -05 065 degrees QTc Int : 443 ms Normal sinus rhythm Normal ECG Confirmed by RICKEY FUNG MD ([id number]), deputy editor in chief ROSSI ARCHIBALD ([id number]) on 08/01/2017 2:24:11 PM Referred By: SARAH/REYNA Confirmed By:RICKEY FUNG MD 08/01/17 1424 Date Rickey Fung MD CC: Joao Simon MD; Se Schmidt Signed PROTHROMBIN TIME W/INR Collected: 08/01/2017 Status: F Source: [place] 10:36 AM [facility] REPOSITORY TYPE CODE TESTS RESULT OUT OF RANGE REFERENCE UNITS LAB L300.4150 11.7-14.9 SECONDS High PROTIME 20.1 LAB L300.4200 Normal INR 1.7 Performed By: #### L300.3900 #### [facility] [address] [place], [address] EMERGENCY DEPARTMENT Observed: 07/31/2017 Status: F Source: [place] SUMMARY 4:39 PM [facility] REPOSITORY [facility] Medical Records Department [address] [place] [address] Emergency Department Summary 07/31/17 1632 MR#: [id number] Acct: [id number] Name: COLETTE RICHARDSON Rep #: [id number] : 1935 82 From: Se Lu PCP: Joao Simon MD Status: REG ER - ER Visit Summary Date of Service: 07/31/17 Chief Complaint: Slurred speech History of Present Illness: The patient is a 82 F transient slurred speech starting at 130 today. States that frontal headache. No falls or head injuries. No visual changes. She is on Coumadin for history of PE and paroxysmal atrial fibrillation. A week ago INR was 1.6. She has had multiple TIAs in the past. Always speech changes. She is on cholesterol medications. States speech is resolving. No hemiparesis. No other complaints. No recent illness. Physical Examination: General: Alert and oriented 3, no acute distress HEENT: Normocephalic, atraumatic. Moist mucosa membranes Neck: supple, nontender. Cardiovascular: Regular rate and rhythm, no murmurs Respiratory: Normal breath sounds, symmetric, no distress Abdomen: Soft, nontender, nondistended Extremities: Nontender, no edema, pulses intact 4 Neuro: NIH equal to 1 for paresthesia of left arm and left leg. Test Results: EKG: Sinus rhythm rate of [address] or T-wave changes. CBC, BMP, troponin normal. INR 1.8. Emergency Department Course and Treatment: Evaluation there is no speech changes, NIH is a 1 for paresthesias. Bat B workup initiated. Results negative except for noting a slightly subtherapeutic INR 1.8. On reevaluation only had mild paresthesia left lower extremity. Patient currently on optimal treatment with aspirin and Coumadin therapy, she is on lipid medications. Discussed with the patient and daughter in the room. Discussed options for monitoring the hospital versus outpatient follow-up with PCP with bridging of her Coumadin. She would like to workup as an outpatient. I did speak with her PCP, Dr. Ochoa, agrees with a Lovenox bridge. She will be bridged with a 1.5mg/kg daily. Patient will have Coumadin draw tomorrow as scheduled in the clinic. He states he is already initiated MRI and MRA studies as an outpatient. Discussed this with patient and family who understands and agrees with plan. She will return if any worsening symptoms. Lovenox given the ED. Treatment Plan: Lovenox bridge Disposition: [] Impression: 1. TIA 2. Subtherapeutic INR This note was generated with Graffleation software. It may contain incorrect words, spelling, and punctuation that were not noted in review of the chart prior to signing ED Disposition - Plan for ED Patient: Disposition: Home or Assisted Living Chief Complaint: Neuro S/Sx Diagnosis: TIA (transient ischemic attack), Subtherapeutic international normalized ratio (INR) Instructions: ED Transient Ischemic Attack Prescriptions: Enoxaparin Sodium [Lovenox] 120 mg SQ DAILY #7 syringe Referrals: Joao Simon MD [Primary Care Provider] - 1 Day Additional Instructions: INR 1.8. Have INR checked as scheduled in office tomorrow to see if Lovenox needs to be continued. What to do if you have Problems For any increased pain, shortness of breath, bleeding, nausea or vomiting, chest pain, or any unexpected problems, contact your Primary Care Provider. Call [facility] ([phone]) or report to the closest Emergency Room. Call 911 if necessary. 07/31/17 3919 <Electronically signed by Se Lu> Date Se Lu Cosigner Signature (If Indicated): Date CC: Joao Simon MD CHEST 1 VIEW Observed: 07/31/2017 Status: F Source: [place] 2:14 PM [facility] HOSPITAL REPOSITORY [facility] Imaging Services [address] [place] [address] Chest 1 View MR#: [id number] Acct: [id number] Name: COLETTE RICHARDSON Rep #: [id number] : 1935 F 82 From: Juan Martinez MD PCP: Joao Simon MD Status: PRE ER Study: Chest 1 View Date of Exam: 07/31/17 Exam# [id number] Ordering Dr: Se Schmidt DO STUDY: X-RAY CHEST REASON FOR EXAM: Female, 82 years old. Stroke workup. TECHNIQUE: Single AP portable view of the chest. COMPARISON: 10/01/2016. FINDINGS: The lungs are clear and expanded. There is no demonstrated pleural abnormality. Sternal cerclage wires and vascular clips are present from a prior sternotomy and coronary artery bypass graft procedure (CABG). Normal mediastinum and sue. Normal visualized pulmonary arteries. Normal visualized aortic arch and descending thoracic aorta. Normal visualized thoracic spine. Normal visualized ribs, clavicles, and shoulders. There is no demonstrated abnormality of the visualized soft tissue structures of the upper abdomen. RAD/Chest 1 View IMPRESSION: No acute chest disease. Electronically Signed: Juan Martinez MD at 14:46 EST , Service support , CC: Joao Simon MD; Se Schmidt Veterinary Medical Officer: Signed BRAIN/HEAD WITHOUT Observed: 07/31/2017 Status: F Source: [place] CONTRAST 2:14 PM [facility] HOSPITAL REPOSITORY [facility] Imaging Services [address] [place] [address] Brain/Head without Contrast MR#: [id number] Acct: [id number] Name: COLETTE RICHARDSON Rep #: [id number] : 1935 F 82 From: Juan Martinez MD PCP: Joao Simon MD Status: REG KYM Study: Brain/Head without Contrast Date of Exam: 07/31/17 Exam# [id number] Ordering Dr: Se Schmidt DO STUDY: CT BRAIN WITHOUT CONTRAST REASON FOR EXAM: Female, 82 years old. Speech changes. Difficulty speaking. RADIATION DOSAGE (If Supplied By Facility): CTDIvol = ( 44.99 ) mGy, DLP = ( 762.36 ) mGycm TECHNIQUE: Transaxial CT imaging of the brain was performed without administration of intravenous contrast material. Individualized dose optimization techniques were used for this CT. COMPARISON: None. FINDINGS: Normal soft tissue structures. Normal calvarium. There is mild cerebral atrophy with widening of the extra- axial spaces and ventricular dilatation. There are areas of decreased attenuation within the white matter tracts of the supratentorial brain, consistent with microvascular disease changes. Normal basal ganglia and thalami. Normal brainstem. There is mild cerebellar atrophy. There is no intracranial hemorrhage. There are no findings of an acute ischemic infarction. Normal visualized paranasal sinuses. CT/Brain/Head without Contrast IMPRESSION: Mild atrophy and White matter disease. No acute abnormalities. Electronically Signed: Juan Martinez MD at 14:48 EST , Service support , CC: Joao Simon MD; Se Schmidt Veterinary Medical Officer: Signed CBC W/DIFF, AUTOMATED Collected: 07/31/2017 Status: F Source: [place] 2:02 PM [facility] REPOSITORY TYPE CODE TESTS RESULT OUT OF RANGE REFERENCE UNITS LAB L100.1000 4.4-11.0 K/mm3 Normal WBC 7.4 LAB L100.1200 4.2-5.4 M/mm3 Normal RBC 4.52 LAB L100.1300 12.0-15.0 g/dl Normal HGB 13.9 LAB L100.1400 37-47 % Normal HCT 41.6 LAB L100.1500 81-99 fL Normal MCV 92.0 LAB L100.1600 27.0-32.0 pg Normal MCH 30.8 LAB L100.1700 32-36 g/gl Normal MCHC 33.4 LAB L100.1810 11.6-14.6 % Normal RDW CV 12.6 LAB L100.1820 35.1-43.9 fl Normal RDW SD 42.7 LAB L100.1900 150-450 K/mm3 Normal PLT 215 LAB L100.2000 6.2-12.0 fl Normal MPV 10.4 LAB L100.2100 47-70 % Normal NEUT% 57.5 LAB L100.2200 19-41 % Normal LY% 32.5 LAB L100.2300 0-10 % Normal MONO% 6.8 LAB L100.2400 0-5 % Normal EO% 2.7 LAB L100.2500 0-1 % Normal BASO% 0.4 LAB L100.2550 0.0-0.9 % Normal IM GRAN % 0.100 Result Comment: IG% - Immature Granulocytes (promyelocytes, myelocytes and metamyelocytes) > 1% indicates that a LEFT SHIFT is Present. LAB L100.2620 2.0-7.7 X10 3/uL Normal Absolute Neut 4.2 LAB L100.2720 0.83-4.51 X10 3/ul Normal Absolute Lymph 2.39 Performed By: #### L100.0100 #### [facility] [address] [facility] [place], [place], [id number] PROTHROMBIN TIME W/INR Collected: 07/31/2017 Status: F Source: [place] 2:02 PM [facility] REPOSITORY TYPE CODE TESTS RESULT OUT OF RANGE REFERENCE UNITS LAB L300.4150 11.7-14.9 SECONDS High PROTIME 20.8 LAB L300.4200 Normal INR 1.8 Performed By: #### L300.3900, L300.4310 #### [facility] [address] [place], [place], [address] PARTIAL THROMBOPLAST Collected: 07/31/2017 Status: F Source: [place] TIME 2:02 PM [facility] REPOSITORY TYPE CODE TESTS RESULT OUT OF RANGE REFERENCE UNITS LAB L300.4310 24.1-36.2 Seconds Normal PTT 29.8 Performed By: #### L300.3900, L300.4310 #### [facility] [address] [facility], [address] BASIC METABOLIC Collected: 07/31/2017 Status: F Source: [place] PROFILE (BMP) 2:02 PM [facility] REPOSITORY Order Comment: 'TROP' Serial specimen #1, #2, #3, or #4: 1 TYPE CODE TESTS RESULT OUT OF RANGE REFERENCE UNITS LAB L501.0100 74-106 mg/dL High GLU 132 Result Comment: Fasting Glucose result greater than or equal to 126 mg/dL suggests DIABETES MELLITUS per A.D.A. criteria. Please note revised GLUCOSE reference range effective 2017. LAB L501.1000 7-18 mg/dL Normal BUN 7 LAB L501.1100 0.55-1.02 mg/dL Normal CREAT,SERUM 0.68 Result Comment: The validity of the calculated GFR AND GFRAA in patients over 70 years has not been determined. Clinical correlation is essential. LAB L501.1110 >60 mL/min Normal EST GFR 89 Result Comment: Non- GFR Calc LAB L501.1115 >60 mL/min Normal EST GFR - AA 107 Result Comment: GFR Calc LAB L501.1255 ml/min Normal Estimated CRCL 33.86 LAB L501.1300 10-20 RATIO Normal BUN/CRE 10.3 LAB L501.2200 8.5-10 mg/dL Low .1 CA 8.2 LAB L501.5300 136-14 mmol/L Normal 5 NA 139 LAB L501.5600 3.5-5. mmol/L Normal 1 K 3.9 LAB L501.5900 98-107 mmol/L Normal CL 103 LAB L501.6100 21.0-3 mmol/L Normal 2.0 CO2 31.0 LAB L501.6200 5-15 Normal GAP 5 Performed By: #### L500.2500, L501.4010 #### [facility] [address] [place], [address] TROPONIN-I Collected: 07/31/2017 Status: F Source: [place] 2:02 PM [facility] REPOSITORY Order Comment: 'TROP' Serial specimen #1, #2, #3, or #4: 1 TYPE CODE TESTS RESULT OUT OF RANGE REFERENCE UNITS LAB L501.4010 <0.06 ng/mL Normal < 0.02 TROPONIN-I Result Comment: TROPONIN-I EXPECTED VALUES <0.05 NEGATIVE 0.06 - 0.59 AT RISK OF [place] > OR = 0.60 SUGGEST [place] Performed By: #### L500.2500, L501.4010 #### [facility] [address] [place], [address] BEDSIDE GLUCOSE Collected: 07/31/2017 Status: F Source: [place] 1:54 PM [facility] REPOSITORY TYPE CODE TESTS RESULT OUT OF REFERENCE UNITS RANGE LAB L501.080 70-110 mg/dL High BEDSIDE GLU 130 Result Comment: MANAGEMENT OF PATIENT CARE PER NURSING PROTOCOL Performed By: #### L501.080 #### [facility] Point of Care [address] [facility] [address] PROTHROMBIN TIME W/INR Collected: 07/24/2017 Status: F Source: [place] 11:09 AM [facility] REPOSITORY TYPE CODE TESTS RESULT OUT OF RANGE REFERENCE UNITS LAB L300.4150 11.7-14.9 SECONDS High PROTIME 18.5 LAB L300.4200 Normal INR 1.6 Performed By: #### L300.3900 #### [facility] [address] [facility] [place], [address] CBC W/DIFF, AUTOMATED Collected: 07/24/2017 Status: F Source: [place] 11:09 AM [facility] REPOSITORY TYPE CODE TESTS RESULT OUT OF RANGE REFERENCE UNITS LAB L100.1000 4.4-11.0 K/mm3 Normal WBC 7.9 LAB L100.1200 4.2-5.4 M/mm3 Normal RBC 4.69 LAB L100.1300 12.0-15.0 g/dl Normal HGB 14.3 LAB L100.1400 37-47 % Normal HCT 43.9 LAB L100.1500 81-99 fL Normal MCV 93.6 LAB L100.1600 27.0-32.0 pg Normal MCH 30.5 LAB L100.1700 32-36 g/gl Normal MCHC 32.6 LAB L100.1810 11.6-14.6 % Normal RDW CV 12.9 LAB L100.1820 35.1-43.9 fl Normal RDW SD 43.5 LAB L100.1900 150-450 K/mm3 Normal PLT 262 LAB L100.2000 6.2-12.0 fl Normal MPV 10.6 LAB L100.2100 47-70 % Normal NEUT% 65.9 LAB L100.2200 19-41 % Normal LY% 25.2 LAB L100.2300 0-10 % Normal MONO% 6.7 LAB L100.2400 0-5 % Normal EO% 1.7 LAB L100.2500 0-1 % Normal BASO% 0.4 LAB L100.2550 0.0-0.9 % Normal IM GRAN % 0.100 Result Comment: IG% - Immature Granulocytes (promyelocytes, myelocytes and metamyelocytes) > 1% indicates that a LEFT SHIFT is Present. LAB L100.2620 2.0-7.7 X10 3/uL Normal Absolute Neut 5.2 LAB L100.2720 0.83-4.51 X10 3/ul Normal Absolute Lymph 1.98 Performed By: #### L100.0100 #### [facility] [address] [place], [place], [address] COMPREHENSIVE METABOLIC Collected: 07/24/2017 Status: F Source: [place] SILVINA 11:09 AM [facility] REPOSITORY TYPE CODE TESTS RESULT OUT OF RANGE REFERENCE UNITS LAB L501.0100 74-106 mg/dL Normal GLU 82 Result Comment: Please note revised GLUCOSE reference range effective 2017. LAB L501.1000 7-18 mg/dL Normal BUN 10 LAB L501.1100 0.55-1.02 mg/dL Normal CREAT,SERUM 0.65 Result Comment: The validity of the calculated GFR AND GFRAA in patients over 70 years has not been determined. Clinical correlation is essential. LAB L501.1110 >60 mL/min Normal EST GFR 93 Result Comment: Non- GFR Calc LAB L501.1115 >60 mL/min Normal EST GFR - AA 113 Result Comment: GFR Calc LAB L501.1300 10-20 RATIO Normal BUN/CRE 15.4 LAB L501.1500 6.4-8.2 g/dL T Normal PROT 7.3 LAB L501.1800 3.2-5.0 g/dL Normal ALB 3.6 LAB L501.1950 2.2-4.2 g/dL Normal GLOB 3.7 LAB L501.2000 0.9-2.4 RATIO Normal A/G 1.0 LAB L501.2200 8.5-10.1 mg/dL Low CA 8.4 LAB L501.4100 15-37 U/L Normal AST 21 LAB L501.4305 45-117 U/L Normal ALK P 87 LAB L501.4405 13-56 U/L Normal ALT 26 Result Comment: Please note revised ALT reference range effective 2017. LAB L501.4600 0.20-1.00 mg/dL Normal T BILI 0.30 LAB L501.5300 136-145 mmol/L Normal NA 138 LAB L501.5600 3.5-5.1 mmol/L Normal K 3.8 LAB L501.5900 98-107 mmol/L Normal CL 100 LAB L501.6100 21.0-32.0 mmol/L Normal CO2 30.0 LAB L501.6200 5-15 Normal GAP 8 Performed By: #### L500.4050, L500.4100 #### [facility] [address]. [place], [place], [address] LIPID PROFILE Collected: 07/24/2017 Status: F Source: [place] 11:09 AM [facility] REPOSITORY TYPE CODE TESTS RESULT OUT OF RANGE REFERENCE UNITS LAB L501.4900 200 mg/dL Normal CHOL 167 Result Comment: <200 mg/dL Desirable 200-240 mg/dL Borderline >240 mg/dL High Risk LAB L501.5000 mg/dL Normal TRIG 123 Result Comment: The drugs N-Acetylcysteine and Metamizole may falsely depress this assay. Serum Triglycerides Reference Interval Normal <150 mg/dL Borderline high 150 - 199 mg/dL High 200 - 499 mg/dL Very High > or = 500 mg/dL LAB L501.6400 mg/dL Low HDL 39 Result Comment: The drugs N-Acetylcysteine and Metamizole may falsely depress this assay. Reference Range HDL <40 mg/dL Low HDL Cholesterol HDL >or= 60 mg/dL High HDL Cholesterol LAB L501.6500 0-130 mg/dL Normal LDL 103 LAB L501.6600 5-40 mg/dL Normal VLDL 25 Performed By: #### L500.4050, L500.4100 #### [facility] [address] [place], [address] CNCO Observed: 07/20/2017 Status: COMPLETED Source: [place] 12:00 AM [facility] REPOSITORY Letter Text Colette Esparza Lucio [address] [facility] [address] 07/20/2017 [facility] #: [id number] Dear , Due to a change in the provider's schedule it has been necessary to reschedule your Appointment. Your original appointment was scheduled for September 12, 2017 at 2 PM with Kamar Franklin M.D. Your new appointment is now scheduled on October 24, 2017 at 2:20 PM with Kamar Franklin M.D. If this new appointment is not convenient for you, please contact our office at [phone]. Thank you for choosing the [facility] as your Healthcare Provider . Sincerely, Internal Medicine Appointment Office ALLERGIES ALLERGIES DATE TYPE / NAME / CODE REACTION SEVERITY SOURCE CODE 05/25/2018 Drug hydrocodone Itching Unknown [place] Allergy/41 bitartrate/P39504 [facility] [id number](SN 1555(RXNORM) [facility]) Repository 05/25/2018 Drug Penicillins/F0010 Anaphylaxis Unknown [place] Allergy/41 75214(RXNORM) [facility] 3478864([facility]) Repository 05/25/2018 Drug Lwmciac-Ryk-Wtm Other Unknown Liam Allergy/41 Reductase [facility] 5906329( Inhibitor/L874836 [facility]) 095(RXNORM) Repository 05/25/2018 Drug codeine/[id number] Nausea Unknown [place] Allergy/41 0(RXNORM) [facility] 4070176([facility]) Repository 05/25/2018 Drug acetaminophen/F00 Itching Unknown [place] Allergy/41 6117076(RXNORM) [facility] 3047033([facility]) Repository 05/25/2018 Drug ezetimibe/D863509 Itching Unknown [place] Allergy/41 817(RXNORM) [facility] 5399976([facility]) Repository ENCOUNTERS ENCOUNTERS ADMIT/DISCHARGE ACCOUNT ADMITTING ENCOUNTER LOCATION SOURCE NUMBER CLASS 06/20/2018 [id number] Ambulatory [place] 1 [facility] ing:PSN Repository 06/14/2018 [id number] Ambulatory [facility]:W Liam 8 [facility] Repository 06/13/2018 [id number] Ambulatory [place] Liam 2 [facility] ing:PSN Repository 05/25/2018/ [id number] Ambulatory [facility]:B [place] 8 6 [facility] Repository 03/30/2018 [id number] Ambulatory [place] 2 [facility] ing:CVS Repository 03/30/2018 [id number] Ambulatory BMSBuilding:W Liam 1 [facility] Repository 12/25/2017 [id number] Ambulatory [place] 6 [facility] ing:MFPLAB Repository 10/05/2017/ [id number] Ambulatory [place] Liam 8 3 [facility] ing:PT Repository 08/09/2017 [id number] Ambulatory [place] Liam 3 [facility] ing:MRI Repository 08/01/2017 [id number] Ambulatory [place] Liam 4 [facility] ing:MFPLAB Repository 07/31/2017/ [id number] Emergency Liam [place] 8 6 [facility] ing:ED Repository 07/24/2017 [id number] Ambulatory [place] 8 [facility] ing:MFPLAB Repository PAYERS PAYERS ENCOUNTER GUARANTOR PAYER SUBSCRIBER SOURCE 06/20/2018 COLETTE Esparza Primary Insurance:MMO COLETTE Andersonoster [id number] MEDICAREPolwilly RICHARDSONB: [facility] Number: [id number], [place] [id number] Repository [address]Ifo: (862) Date:1789-32-24ZD [phone] () [address] [place] [phone]: 06/20/2018 Secondary NOT GIVENUNK [place] Insurance:SELF PAY [facility] Number: Effective Repository Date:2018-05-25 06/14/2018 COLETTE Esparza Primary Insurance:MMO COLETTE Esparza [place] [id number] MEDICAREPolicy SPRAD[place]DOB: [facility] [place] Number: [id number], [place] [id number] Repository 860[address]Pst: (330) Date:5684-39-52ZO [phone] (HP) [address] [place] [phone]: 06/14/2018 Secondary NOT GIVENUNK [place] Insurance:SELF PAY [facility] Number: Effective Repository Date:2018-06-14 06/13/2018 COLETTE Esparza Primary Insurance:MMO COLETTE Vilma Liam [id number] MEDICAREPolicy SPRADLEYDOB: [facility] [place] Number: [id number], [place] [id number] Repository 90[address]Vwb: (330) Date:1934-65-47JU [phone] () [address] [place], [place] [phone]: 06/13/2018 Secondary NOT GIVENUNK [place] Insurance:SELF PAY [facility] Number: Effective Repository Date:2018-05-25 05/25/2018 COLETTE Esparza Primary Insurance:MMO COLETTE Esparza [place] [id number] MEDICAREPolicy SPRADLEYDOB: [facility] [place] Number: [id number], [place] [id number] Repository [address]Ebn: (330) Date:9799-00-91IM [phone] () [address] [place] [phone]: 05/25/2018 Secondary NOT GIVENUNK [place] Insurance:SELF PAY [facility] Number: Effective Repository Date:2018-05-24 03/30/2018 Colette Esparza Primary Insurance:MMO Colette Vilma Liam [id number] MEDICAREPolicy Spr[place]DOB: [facility] [place] Number: [id number], [place] [id number] Repository 26[address]Svu: (330) Date:9978-32-51ZJ [phone] (HP) [address] [place] [address]LL: 03/30/2018 Secondary NOT GIVENUNK Liam Insurance:SELF PAY [facility] Number: Effective Repository Date:2018-03-29 03/30/2018 Colette Esparza Primary Insurance:MMO Colette J Liam [id number] MEDICAREPolicy Spr[place]leyDOB: [facility] [place] Number: [id number], [place] [id number] Repository [address]Ogu: (330) Date:6489-98-47FO [phone] (HP) [address], [place] [address]BQ: 03/30/2018 Secondary NOT GIVENUNK [place] Insurance:SELF PAY [facility] Number: Effective Repository Date:2018-03-30 12/25/2017 Colette Esparza Primary Insurance:MMO Colette Esparza Liam [id number] MEDICAREPolicy [facility] Number: [id number], [place] [id number] Repository 514[address]Lvu: (330) Date:3450-13-78AY [phone] (HP) [address], [place] [address]HR: 12/25/2017 Secondary NOT GIVENUNK Liam Insurance:SELF PAY [facility] Number: Effective Repository Date:2017-12-25 10/05/2017 Colette Esparza Primary Insurance:MMO Colette Esparza Liam [id number] MEDICAREPolicy [facility] Number: [id number], [place] [id number] Repository [address]Jcu: (330) Date:4541-02-23KI [phone] (HP) [address] [place] [address]SK: 10/05/2017 Secondary NOT GIVENUNK [place] Insurance:SELF PAY [facility] Number: Effective Repository Date:2017-09-28 08/09/2017 Colette Esparza Primary Insurance:MMO Colette Esparza [place] [id number] MEDICAREPolicy SpradleyDOB: [facility] Number: [id number], [place] [id number] Repository [address]Bia: (330) Date:0749-38-32LV [phone] () [address], [place] [address]OZ: 08/09/2017 Secondary NOT GIVENUNK [place] Insurance:SELF PAY [facility] Number: Effective Repository Date:2017-08-01 08/01/2017 Colette Esparza Primary Insurance:MMO Colette Esparza Liam [id number] MEDICAREPolicy SpradleyDOB: [facility] Number: [id number], [place] [id number] Repository [address]Cbj: (330) Date:8468-40-80RT [phone] () [address] [place] [address]BU: 08/01/2017 Secondary NOT GIVENUNK Liam Insurance:SELF PAY [facility] Number: Effective Repository Date:2017-08-01 07/31/2017 Colette Esparza Primary Insurance:MMO Colette Esparza Liam [id number] MEDICAREPolicy SpradleyDOB: [facility] Number: [id number], [place] [id number] Repository 337[address]Exw: (330) Date:3161-32-44MF [phone] () [address], [place] [address]OG: 07/31/2017 Secondary NOT GIVENUNK Liam Insurance:SELF PAY [facility] Number: Effective Repository Date:2017-07-31 07/24/2017 Colette Esparza Primary Insurance:MMO Colette Esparza Liam [id number] MEDICAREPolicy Spr[place]leyDOB: [facility] Number: [id number], [place] [id number] Repository [address]Wju: 330) Date:2891-13-87FY [phone] ( [address], [place] [address]QB: 07/24/2017 Secondary NOT GIVENUNK Liam Insurance:SELF PAY [facility] Effective Repository Date:2017-07-24
== END ==
PROVIDERS: Family Provider Family Medicine; PCP Family Medicine; Referring Provider Internal Medicine Critical Care Medicine; Visit Provider Internal Medicine Critical Care Medicine
DX: R06.02 Shortness of breath (principal)
CPT/HCPCS: 94618

== ENCOUNTER → 2018-06-20 12:55 | Outpatient (CLI) | payer MEDICARE, SELFPAY ==
[2018-05-25 10:39] VITALS: BMI 34.7
--- NOTE | 2018-06-21 06:56 | PFTCOMP_ITS ---
COMPLETE PULMONARY FUNCTION TEST INTERPRETATION Brief HPI: Patient is an 82 year old female, currently under the care of Dr. Gee, who presents to [facility] for complete pulmonary function tests secondary to diagnosis of dyspnea. Respiratory therapist reports good effort and reproducible results. Interpretation: Forced expiration spirometry shows no large airways obstructive ventilatory defect with an FEV1 of 84% predicted. There is no significant bronchodilator response by strict ATS criteria. Spirograms are of good quality and plateau normally. The respiratory flow volume loop shows a normal pattern. Lung volumes by body plethysmography show a decreased total lung capacity at 3.08 L, 75% predicted. All other lung volumes are reduced symmetrically. Diffusion capacity by carbon monoxide is normal at 63% predicted. The airway resistance is normal. No previous pulmonary function tests were available for review. Impression: Mild restrictive ventilatory defect with symmetric reduction diffusion capacity.
--- OUTSIDE RECORDS SUMMARY | 2018-08-22 12:00 | XMS RPT_ITS ---
:1935 Author Organization OHIP Support Name Relationship Address Phone MARIBELL GRIER Unavailable [address] + [place] [address] R Unavailable Unavailable Unavailable MARIBELL GRIER Unavailable [address] + [place] [address] R Unavailable Unavailable Unavailable MARIBELL GRIER Unavailable [address] + [place] [address] R Unavailable Unavailable Unavailable MARIBELL GRIER Unavailable [address] + [place] [address] R Unavailable Unavailable Unavailable MARIBELL GRIER Unavailable [address] + [place] [address] R Unavailable Unavailable Unavailable MARIBELL GRIER Unavailable [address] + [place] [address] R Unavailable Unavailable Unavailable MARIBELL GRIER Unavailable [address] + [place] [address] R Unavailable Unavailable Unavailable MARIBELL GRIER Unavailable [address] + [place] [address] R Unavailable Unavailable Unavailable MARIBELL GRIER Unavailable [address] + [place] [address] R Unavailable Unavailable Unavailable MARIBELL GRIER Unavailable [address] + [place] [address] R Unavailable Unavailable Unavailable MARIBELL GRIER Unavailable [address] + [place] [address] R Unavailable Unavailable Unavailable R Unavailable Unavailable Unavailable MARIBELL GRIER Unavailable [address] + [place] [address] R Unavailable Unavailable Unavailable CAIN BIRD Unavailable [address] + [place] [address] Care Team Providers Name Role Phone Felipe Brown, D.O. Attending Unavailable Simon, Joao Referring Unavailable Dangelo eKndall.OJose Attending Unavailable Dangelo Kendall.OJose Referring Unavailable Simon, [...] Unknown R06.02 - Shortness Felipe Gee, Active [place] of breath / D.O. 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 Status: REG CLI Ordering Dr: Date: Location: [facility] Sex: F C COMPLETE PULMONARY FUNCTION TEST INTERPRETATION Brief HPI: Patient is an 82 year old female, currently under the care of Dr. Gee, who presents to [facility] for complete pulmonary function tests secondary to [...] MD Date Dictated: 06/21/1854 Date Transcribed: 06/21/18653 Lead Javascript Engineer: BA Signed 6 MINUTE WALK TEST Observed: 06/14/2018 Status: F Source: [place] 9:47 AM [facility] REPOSITORY [facility] Pulmonary Services/Neurology [address] [place], [place] [address] MR#: [id number] Acct: [id number] Name: COLETTE RICHARDSON Rep #: [id number] : 1935 82 From: Felipe Gee DO Referring Dr: Felipe Gee D.O. Date: Ordering Dr: Sex: F C Location: [facility] PSN 6 Minute Walk Test - 6 Minute Walk Test 6 Minute Walk Test: 6 Minute Walk Test PSN:6-Minute Walk Test Start: 06/13/18 11:16 Freq: Status: Active Protocol: RESP.6MINW Document 06/13/18 11:00 [facility] (Rec: 06/13/18 11:20 [facility] [id number]) 6 Minute Walk Test Date Performed 06/13/18 [...] CC: Date Dictated: 06/14/18945 Date Transcribed: 06/14/18945 Lead Javascript Engineer: Felipe Gee DO Signed PULMONARY VISIT REPORT Observed: 05/25/2018 Status: F Source: [place] 11:37 AM [facility] REPOSITORY [facility] Pulmonary Medicine of [place] [address] [place] [address] OFFICE VISIT Date of Service: 05/25/18 MR#: [id number] Acct: [id number] Name: COLETTE RICHARDSON Rep #: [id number] : 1935 Provider: Felipe Gee D.O. Age/Sex: 82/F Location: [facility].PMW Status: Signed Assessment AND Plan 1. Shortness [...] currently being followed by Dr. Simon of [facility]. In office spirometry completed in March 2018 [...] Vicodin] Adverse Reaction (Verified 05/25/18 10:40) Itching Dlpepnf-Pih-Oim Reductase Inhibitor Adverse Reaction (Verified 05/25/18 10:40) [...] mg PO DAILY 05/17/18 [History Confirmed 05/17/18] [facility] Medical History Hypotension (Acute) Diarrhea (Acute) Atrial fibrillation with RVR (Acute) Non-ST elevation NC (NSTEMI) (Acute) Atrial fibrillation (Chronic) Bilateral breast [...] STRESS REPORT Observed: 03/30/2018 Status: F Source: [place] 11:39 AM [facility] REPOSITORY [facility] Cardiovascular Services [address] [place] [address] MR#: [id number] Acct: [id number] Name: COLETTE RICHARDSON Rep #: [id number] : 1935 82 From: Rickey Fung MD [...] protocol followed Intravenous saline flush injection continuous night monitor was performed. The maximum heart rate attained [...] Date Dictated: 03/30/18 113 Date Transcribed: 03/30/181132 Lead Javascript Engineer: CO Signed CBC-COMPLETE BLOOD CNT Collected: 03/30/2018 Status: F Source: [place] NO DIFF 6:15 AM [facility] REPOSITORY TYPE CODE TESTS RESULT OUT OF [...] MPV 10.7 Performed By: #### L100.0500 #### [facility] [address] [place], [place], [address] BASIC METABOLIC Collected: 03/30/2018 Status: F Source: [place] PROFILE (BMP) 6:15 AM [facility] REPOSITORY TYPE CODE TESTS RESULT OUT OF [...] 8 Performed By: #### L500.2500, L501.9520 #### [facility] [address] [place], [place], [address] THYROID STIM HORMONE Collected: 03/30/2018 Status: F Source: [place] (TSH) 6:15 AM [facility] REPOSITORY TYPE CODE TESTS RESULT OUT OF RANGE REFERENCE UNITS LAB L501.9520 0.358-3.74 uIU/mL High TSH 3.88 Performed By: #### L500.2500, L501.9520 #### [facility] [address] [facility] [place], [place], [address] BASIC METABOLIC Collected: 12/25/2017 Status: F Source: [place] PROFILE (BMP) 4:04 PM [facility] REPOSITORY TYPE CODE TESTS RESULT OUT OF [...] 8 Performed By: #### L500.2500, L500.4100 #### [facility] [address] [place], [address] LIPID PROFILE Collected: 12/25/2017 Status: F Source: [place] 4:04 PM [facility] REPOSITORY TYPE CODE TESTS RESULT OUT OF [...] 48 Performed By: #### L500.2500, L500.4100 #### [facility] [address] [place], [address] INITAL EVALUATION (1) Observed: 10/05/2017 Status: F Source: [place] - PT 3:32 PM [facility] REPOSITORY [facility] Physical Therapy [facility] [address] [facility] [place], [place] [address] Fax REHABILITATION SERVICES INITIAL EVALUATION MR#: [id number] Acct: [id number] Name: COLETTE RICHARDSON Rep #: [id number] : 1935 82 From: Westley Nance PT, Cert. MDT, OCS Referring Dr.: Joao Simon MD Status: REG RCR Insurance: [facility] SELF PAY INSURANCE Patient's Visit Information [...] but has limiations with stamina. Patient has family medicine resident assist with cookng.Patient has walkin shower.Patient has [...] to be FAXED BACK to us at [phone] for Medicare purposes. Please let me know if there are questions or concerns regarding this plan of care. Physician Signature: Date: <Electronically signed by Westley Nance PT, Cert. T, OCS> 10/05/17 1532 CC: Joao Simon MD EKATERINA Signed For Medicare only, by signing this I certify the plan of care. Physicians Signature Date CNCO Observed: 09/08/2017 Status: COMPLETED Source: [place] 12:00 AM CLINIC OTHER CAMPUS REPOSITORY Letter Text [facility] [place] [address] [place] [address] Dept: [phone] Dept Fredo Kathleen MD September 08, 2017 Colette Richardson [address] [place] [address] 1935 Dear Colette Richardson, We missed seeing you for your scheduled appointment with Dr. Kathleen on 09/05/17. Our goal is to offer the best possible care to our patients, so we are concerned when you are unable to keep a scheduled appointment. Please call us at [phone] so that we can reschedule your appointment for a day and time that will work for you. If you find it difficult to keep your appointment, please notify our office at least 24 hours in advance so that we may reschedule your appointment. We are glad that you have chosen [facility] Cardiology for your cardiovascular needs and hope to continue serving you in the future. Sincerely, Fredo Kathleen MD (Signed electronically to expedite mailing) MRA NECK WITH AND W/O Observed: 08/09/2017 Status: F Source: [place] CONTRAST 10:16 AM [facility] REPOSITORY [facility] Imaging Services [address] [facility] [place] [address] MRA Neck WITH and W/O Contrast MR#: [id number] Acct: [id number] Name: COLETTE RICHARDSON Rep #: [id number] : 1935 F 82 From: Rossi Haro MD PCP: Joao Simon MD Status: REG CLI Study: MRA Neck WITH and W/O Contrast Date of Exam: 08/09/17 Exam# [id number] Ordering Dr: Joao Simon MD MRA Neck WO/W Contrast INDICATION: tia x 4 since 03/2017, speech disturbances, lt sided weakness COMPARISON: None TECHNIQUE: MR angiogram of the arterial structures of the neck and 2-D qzfk-lw-lpmyjk and 3-D vucx-zc-enugen technique without and with IV contrast. 8 [...] Service support , CC: Joao Simon MD Lead Javascript Engineer: Signed MRA HEAD ONLY WITHOUT Observed: 08/09/2017 Status: F Source: [place] CONTRAST 10:16 AM [facility] REPOSITORY [facility] Imaging Services [address] [place] [address] MRA Head ONLY without Contrast MR#: [id number] Acct: [id number] Name: COLETTE RICHARDSON Rep #: [id number] : 1935 F 82 From: Rossi Haro MD PCP: Joao Simno MD Status: REG CLI Study: MRA Head ONLY without Contrast Date of Exam: 08/09/17 Exam# [id number] Ordering Dr: Joao Simon MD MRA Head W/O Contrast INDICATION: tia x 4 since 03/2017, speech disturbances, lt sided weakness COMPARISON: None TECHNIQUE: MR angiogram and 3-D vdln-iq-oyjcip technique with 3-D reformatted images. FINDINGS: There [...] Service support , CC: Joao Simon MD Lead Javascript Engineer: Signed 12 LEAD ELECTROCARDIOGRAM Observed: 08/01/2017 Status: F Source: [place] 2:24 PM [facility] REPOSITORY [facility] Cardiovascular Services [address] [place] [address] 12 Lead EKG 07/31/17 1356 MR#: [id number] Acct: [id number] Name: COLETTE RICHARDSON Rep #: [id number] : 1935 82 From: Rickey Fung MD [...] ECG Confirmed by RICKEY FUNG MD ([id number]), supervising film or videotape editor ROSSI ARCHIBALD ([id number]) on 08/01/2017 2:24:11 PM Referred By: SARAH/REYNA Confirmed By:RICKEY FUNG MD 08/01/17 1424 Date Rickey Fung MD CC: Joao Simon MD; Se Schmidt Signed PROTHROMBIN TIME W/INR Collected: 08/01/2017 Status: F Source: [place] 10:36 AM [facility] REPOSITORY TYPE CODE TESTS RESULT OUT OF RANGE REFERENCE UNITS LAB L300.4150 11.7-14.9 SECONDS High PROTIME 20.1 LAB L300.4200 Normal INR 1.7 Performed By: #### L300.3900 #### [facility] [address] [place], [address] EMERGENCY DEPARTMENT Observed: 07/31/2017 Status: F Source: [place] SUMMARY 4:39 PM [facility] REPOSITORY [facility] Medical Records Department [address] [place] [address] Emergency Department Summary 07/31/17 1632 MR#: [id number] Acct: [id number] Name: COLETTE RICHARDSON Rep #: [id number] : 1935 82 From: Se Lu PCP: [...] Subtherapeutic INR This note was generated with eDiets.comation software. It may contain incorrect words, spelling, [...] your Primary Care Provider. Call [facility] ([phone]) or report to the closest Emergency Room. Call 911 if necessary. 07/31/17 2921 <Electronically signed by Se Lu> Date Se Lu Cosigner Signature (If Indicated): Date CC: Joao Simon MD CHEST 1 VIEW Observed: 07/31/2017 Status: F Source: [place] 2:14 PM [facility] REPOSITORY [facility] Imaging Services [address] [place] [address] Chest 1 View MR#: [id number] Acct: [id number] Name: COLETTE RICHARDSON Rep #: [id number] : 1935 F 82 From: Juan Martinez MD PCP: Joao Simon MD Status: PRE ER Study: Chest 1 View Date of Exam: 07/31/17 Exam# [id number] Ordering Dr: Se Schmidt DO STUDY: X-RAY [...] , CC: Joao Simon MD; Se Schmidt Lead Javascript Engineer: Signed BRAIN/HEAD WITHOUT Observed: 07/31/2017 Status: F Source: [place] CONTRAST 2:14 PM [facility] REPOSITORY [facility] Imaging Services [address] [place] [address] Brain/Head without Contrast MR#: [id number] Acct: [id number] Name: COLETTE RICHARDSON Rep #: [id number] : 1935 F 82 From: Juan [place] MD PCP: Joao Simon MD Status: REG KYM Study: Brain/Head without Contrast Date of Exam: 07/31/17 Exam# [id number] Ordering Dr: Se Schmidt DO STUDY: CT [...] , CC: Joao Simon MD; Se Schmidt Lead Javascript Engineer: Signed CBC W/DIFF, AUTOMATED Collected: 07/31/2017 Status: F Source: [place] 2:02 PM [facility] REPOSITORY TYPE CODE TESTS RESULT OUT OF [...] Lymph 2.39 Performed By: #### L100.0100 #### [facility] [address] [facility] [place], [place], [address] PROTHROMBIN TIME W/INR Collected: 07/31/2017 Status: F Source: [place] 2:02 PM [facility] REPOSITORY TYPE CODE TESTS RESULT OUT OF RANGE REFERENCE UNITS LAB L300.4150 11.7-14.9 SECONDS High PROTIME 20.8 LAB L300.4200 Normal INR 1.8 Performed By: #### L300.3900, L300.4310 #### [facility] [address] [place], [place], [address] PARTIAL THROMBOPLAST Collected: 07/31/2017 Status: F Source: [place] TIME 2:02 PM [facility] REPOSITORY TYPE CODE TESTS RESULT OUT OF RANGE REFERENCE UNITS LAB L300.4310 24.1-36.2 Seconds Normal PTT 29.8 Performed By: #### L300.3900, L300.4310 #### [facility] [address] [facility] [place], [address] BASIC METABOLIC Collected: 07/31/2017 Status: F Source: [place] PROFILE (BMP) 2:02 PM [facility] REPOSITORY Order Comment: 'TROP' Serial specimen #1, [...] 5 Performed By: #### L500.2500, L501.4010 #### [facility] [address] [place], [address] TROPONIN-I Collected: 07/31/2017 Status: F Source: [place] 2:02 PM [facility] REPOSITORY Order Comment: 'TROP' Serial specimen #1, #2, #3, or #4: 1 TYPE CODE TESTS RESULT OUT OF RANGE REFERENCE UNITS LAB L501.4010 <0.06 ng/mL Normal < 0.02 TROPONIN-I Result Comment: TROPONIN-I EXPECTED VALUES <0.05 NEGATIVE 0.06 - 0.59 AT RISK OF NC > OR = 0.60 SUGGEST NC Performed By: #### L500.2500, L501.4010 #### [facility] [address] [place], [address] BEDSIDE GLUCOSE Collected: 07/31/2017 Status: F Source: [place] 1:54 PM [facility] REPOSITORY TYPE CODE TESTS RESULT OUT OF REFERENCE UNITS RANGE LAB L501.080 70-110 mg/dL High BEDSIDE GLU 130 Result Comment: MANAGEMENT OF PATIENT CARE PER NURSING PROTOCOL Performed By: #### L501.080 #### [facility] Point of Care [address] [facility] [place] [address] PROTHROMBIN TIME W/INR Collected: 07/24/2017 Status: F Source: [place] 11:09 AM [facility] REPOSITORY TYPE CODE TESTS RESULT OUT OF RANGE REFERENCE UNITS LAB L300.4150 11.7-14.9 SECONDS High PROTIME 18.5 LAB L300.4200 Normal INR 1.6 Performed By: #### L300.3900 #### [facility] [address] [facility] [place], [address] CBC W/DIFF, AUTOMATED Collected: 07/24/2017 Status: F Source: [place] 11:09 AM [facility] REPOSITORY TYPE CODE TESTS RESULT OUT OF [...] Lymph 1.98 Performed By: #### L100.0100 #### [facility] [address] [place], [place], [address] COMPREHENSIVE METABOLIC Collected: 07/24/2017 Status: F Source: [place] S[place] 11:09 AM [facility] REPOSITORY TYPE CODE TESTS RESULT OUT OF [...] 8 Performed By: #### L500.4050, L500.4100 #### [facility] [address] [facility] [place], [place], [address] LIPID PROFILE Collected: 07/24/2017 Status: F Source: [place] 11:09 AM [facility] REPOSITORY TYPE CODE TESTS RESULT OUT OF [...] 25 Performed By: #### L500.4050, L500.4100 #### [facility] [address] [place], [address] CNCO Observed: 07/20/2017 Status: COMPLETED Source: [place] 12:00 AM CLINIC MAIN CAMPUS REPOSITORY Letter Text Colette Esparza Luc[place] [address] [facility] [address] 07/20/2017 CCF #: [id number] Dear , Due to a change in [...] for you, please contact our office at [phone]. Thank you for choosing the [facility] as your Healthcare Provider . Sincerely, Internal Medicine Appointment Office ALLERGIES ALLERGIES DATE TYPE / NAME / CODE REACTION SEVERITY SOURCE CODE 05/25/2018 Drug hydrocodone Itching Unknown [place] Allergy/41 bitartrate/E02163 [facility] 9013548(SN 1555(RXNORM) [facility]) Repository 05/25/2018 Drug Penicillins/F0010 Anaphylaxis Unknown [place] Allergy/41 97144(RXNORM) Community 8870858([facility]) Repository 05/25/2018 Drug Dcmevos-Qul-Xac Other Unknown [place] Allergy/41 Reductase Community 6012307( Inhibitor/V935193 [facility]) 095(RXNORM) Repository 05/25/2018 Drug codeine/R87123212 Nausea Unknown [place] Allergy/41 0(RXNORM) Community 8315384([facility]) Repository 05/25/2018 Drug acetaminophen/F00 Itching Unknown [place] Allergy/41 2753695(RXNORM) [facility] 2511545([facility]) Repository 05/25/2018 Drug ezetimibe/V487087 Itching Unknown [place] Allergy/41 817(RXNORM) [facility] 4119731([facility]) Repository ENCOUNTERS ENCOUNTERS ADMIT/DISCHARGE ACCOUNT ADMITTING ENCOUNTER LOCATION SOURCE NUMBER CLASS 06/20/2018 [id number] Ambulatory [place] 1 [facility] ing:PSN Repository 06/14/2018 [id number] Ambulatory BMSBuilding:W [place] [facility] Repository 06/13/2018 [id number] Ambulatory [place] 2 [facility] ing:PSN Repository 05/25/2018/ [id number] Ambulatory BMSBuilding:B [place] 8 6 [place] Repository 03/30/2018 [id number] Ambulatory [place] 2 [facility] ing:CVS Repository 03/30/2018 [id number] Ambulatory BMSBuilding:W [place] 1 [facility] Repository 12/25/2017 [id number] Ambulatory [place] 6 [facility] ing:MFPLAB Repository 10/05/2017/ [id number] Ambulatory [place] 8 3 [facility] ing:PT Repository 08/09/2017 [id number] Ambulatory [place] 3 [facility] ing:MRI Repository 08/01/2017 [id number] Ambulatory [place] 4 [facility] ing:MFPLAB Repository 07/31/2017/ [id number] Emergency [place] 8 6 [facility] ing:ED Repository 07/24/2017 [id number] Ambulatory [place] 8 [facility] ing:MFPLAB Repository PAYERS PAYERS ENCOUNTER GUARANTOR PAYER SUBSCRIBER SOURCE 06/20/2018 COLETTE Esparza Primary Insurance:MMO COLETTE Andersonoster [id number] MEDICAREPolwilly RICHARDSONB: [facility] Number: [id number], [place] [id number] Repository [address]Qui: (151) Date:0331-82-71CW [phone] () [address] [place] [phone]: 06/20/2018 Secondary NOT GIVENUNK [place] Insurance:SELF PAY [facility] Number: Effective Repository Date:2018-05-25 06/14/2018 COLETTE Esparza Primary Insurance:MMO COLETTE Esparza [place] [id number] MEDICAREPolicy SPRADLEYDOB: [facility] [place] Number: [id number], [place] [id number] Repository [address]Nml: (330) Date:5552-14-86EL [phone] (HP) [address] [place] [phone]: 06/14/2018 Secondary NOT GIVENUNK [place] Insurance:SELF PAY [facility] Number: Effective Repository Date:2018-06-14 06/13/2018 COLETTE Esparza Primary Insurance:MMO COLETTE Vilma [place] [id number] MEDICAREPolicy SPRADLEYDOB: [facility] [place] Number: [id number], [place] [id number] Repository [address]Iwy: (330) Date:1478-01-68YZ [phone] () [address] [place], [place] [phone]: 06/13/2018 Secondary NOT GIVENUNK [place] Insurance:SELF PAY [facility] Number: Effective Repository Date:2018-05-25 05/25/2018 COLETTE Esparza Primary Insurance:MMO COLETTE Esparza [place] [id number] MEDICAREPolicy SPRADLEYDOB: [facility] [place] Number: [id number], [place] [id number] Repository [address]Bty: (330) Date:7163-73-82VS [phone] () [address] [place] [phone]: 05/25/2018 Secondary NOT GIVENUNK [place] Insurance:SELF PAY [facility] Number: Effective Repository Date:2018-05-24 03/30/2018 Colette Esparza Primary Insurance:MMO Colette [place] [id number] MEDICAREPolicy SpradleyDOB: [facility] [place] Number: [id number] [place], [place] [id number] Repository [address]Wsn: (330) Date:9377-18-16PZ [phone] (HP) [address] [place] [phone]: 03/30/2018 Secondary NOT GIVENUNK [place] Insurance:SELF PAY [facility] Number: Effective Repository Date:2018-03-29 03/30/2018 Colette Esparza Primary Insurance:MMO Colette J [place] [id number] MEDICAREPolicy SpradleyDOB: [facility] [place] Number: [id number] Pleasant, [place] [id number] Repository [address]Gbv: (330) Date:5172-34-45VY [phone] (HP) [address], [place] [address]OM: 03/30/2018 Secondary NOT GIVENUNK [place] Insurance:SELF PAY [facility] Number: Effective Repository Date:2018-03-30 12/25/2017 Colette Esparza Primary Insurance:MMO Colette Esparza [place] [id number] MEDICAREPolicy [facility] Number: [id number] Pleasant, [place] [id number] Repository [address]Koj: (330) Date:4860-72-20IP [phone] (HP) [address], [place] [address]MG: 12/25/2017 Secondary NOT GIVENUNK [place] Insurance:SELF PAY [facility] Number: Effective Repository Date:2017-12-25 10/05/2017 Colette Esparza Primary Insurance:MMO Colette Esparza [place] [id number] MEDICAREPolicy [facility] Number: [id number] Pleasant, [place] [id number] Repository [address]Fpr: (330) Date:0162-71-26VD [phone] (HP) [address] [place] [phone]: 10/05/2017 Secondary NOT GIVENUNK [place] Insurance:SELF PAY [facility] Number: Effective Repository Date:2017-09-28 08/09/2017 Colette Esparza Primary Insurance:MMO Colette Esparza [place] [id number] MEDICAREPolicy Spr[facility]DOB[facility] Number: [id number], [place] [id number] Repository 17[address]Gkq: (330) Date:[id number] [phone] () [address], [place] [address]PR: 08/09/2017 Secondary NOT GIVENUNK Newell Insurance:SELF PAY [facility] Number: Effective Repository Date:2017-08-01 08/01/2017 Colette Esparza Primary Insurance:MMO Colette Esparza Liam [id number] MEDICAREPolicy SpradleyDOB: [facility] Number: [id number] [place]asant, [place] [id number] Repository [address]33[address]Kgn: (330) Date:[id number] [phone] () [address] [place] [id number]: 08/01/2017 Secondary NOT GIVENUNK Liam Insurance:SELF PAY [facility] Number: Effective Repository Date:2017-08-01 07/31/2017 Colette Esparza Primary Insurance:MMO Colette Esparza Liam [id number] MEDICAREPolicy SpradleyDOB: [facility] Number: [id number] [place], [place] [id number] Repository [address]Apo: (330) Date:[id number] [phone] () [address], [place] [address]DA: 07/31/2017 Secondary NOT GIVENUNK Liam Insurance:SELF PAY [facility] Number: Effective Repository Date:2017-07-31 07/24/2017 Colette Esparza Primary Insurance:MMO Colette Esparza Liam [id number] MEDICAREPolicy SpradleyDOB: [facility] Number: [id number] [place], [place] [id number] Repository 40471Qxs: 330) Date:[id number] [phone] ( [address], [place] [address]GS: 07/24/2017 Secondary NOT GIVENUNK Liam Insurance:SELF PAY [facility]: Effective Repository Date:2017-07-24
== END ==
PROVIDERS: Family Provider Family Medicine; PCP Family Medicine; Referring Provider Internal Medicine Critical Care Medicine; Visit Provider Internal Medicine Critical Care Medicine
DX: R06.02 Shortness of breath (principal)
CPT/HCPCS: 94060; 94726; 94729

== ENCOUNTER → 2018-07-12 17:39 | Outpatient (CLI) | payer MEDICARE, SELFPAY ==
[2018-07-04 10:52] VITALS: BMI 33.6
== END ==
PROVIDERS: Family Provider Family Medicine; PCP Family Medicine; Referring Provider Family Medicine; Visit Provider Family Medicine
DX: R35.0 Frequency of micturition (principal)
CPT/HCPCS: 87086; 87088

== ENCOUNTER → 2018-08-01 07:36 | Outpatient (CLI) | payer MEDICARE, SELFPAY ==
[2018-07-04 10:52] VITALS: BMI 33.6
--- NOTE | 2018-08-01 07:40 | ECHOD_ITS ---
Reason For Study: DYSPNEA/SOB Procedure This was a 2D Doppler, Color Flow transthoracic echocardiogram. Myocardial strain analysis was performed in this exam to aid in the assessment of cardiac function. Exam performed in department. Left Ventricle Normal size and thickness. The estimated ejection fraction is 65 %. Stage 1 diastolic dysfunction. No regional wall motion abnormalities noted. Right Ventricle Normal size and thickness. Normal systolic function. Atria Normal left atrium. Normal right atrium. Normal atrial septum. Bubble contrast study negative for right to left interatrial shunt. Mitral Valve Mild diffuse mitral valve thickening. Mild focal mitral valve thickening. Moderate mitral annular calcification extending into the posterior leaflet. Trivial mitral valve insufficiency. Tricuspid Valve Normal tricuspid valve. Trivial tricuspid valve insufficiency. Right ventricular systolic pressure estimated to be 35 mmHg. Aortic Valve Trisinus/trileaflet aortic valve. Mild diffuse aortic valve thickening. Mild focal aortic valve thickening. Mild aortic stenosis. Peak aortic valve gradient 15 mmHg. Mean aortic valve gradient 10 mmHg. Trivial aortic valve insufficiency. Pulmonic Valve Normal pulmonic valve. Trivial pulmonic valve insufficiency. Great Vessels Normal aortic root. Normal arch. Normal inferior vena cava. Inferior vena cava collapse with sniff. Pericardium/Pleural No pericardial effusion. Medication 22 gauge I.V. with prn adaptor inserted into right arm. Performed a rapid injection of agitated mix of 9 cc saline and 1cc air to assess for atrial septal defect. MMode/2D Measurements & Calculations LVIDd: 3.9 cm IVSd: 1.2 cm LVOT diam: 2.0 cm LVIDs: 2.4 cm LVPWd: 1.1 cm RVDd: 3.4 cm FS: 39.1 % LVOT area: 3.1 cm2 Ao root diam: 3.3 cm LAV(MOD-bp): 61.3 ml LVAd ap4: 22.2 cm2 LAV(MOD-bp) Indexed: 34.2 ml/m2 EDV(MOD-sp4): 57.5 ml LAV(MOD-sp2): 73.0 ml EDV(sp4-el): 59.3 ml LAV(MOD-sp4): 49.5 ml LVAs ap4: 10.9 cm2 ESV(MOD-sp4): 19.5 ml ESV(sp4-el): 18.9 ml EF(MOD-sp4): 66.1 % EF(sp4-el): 68.1 % SV(MOD-sp4): 38.0 ml SV(sp4-el): 40.4 ml LA A4 area: 18.7 cm2 LA dimension(2D): 3.9 cm RA A4 area: 15.7 cm2 Time Measurements MV dec time: 0.23 sec Doppler Measurements & Calculations MV E max rizwan: 90.7 cm/sec Lat Peak E' Rizwan: 9.6 cm/sec Med Peak E' Rizwan: 7.0 cm/sec MV A max rizwan: 99.3 cm/sec E/E' lat: 9.5 E/E' med: 13.0 MV E/A: 0.91 Ao V2 max: 194.0 cm/sec AI max rizwan: 342.8 cm/sec LV V1 max: 94.0 cm/sec Ao max P.1 mmHg AI max P.0 mmHg LV V1 max P.5 mmHg Ao V2 mean: 152.8 cm/sec AI dec slope: 207.6 cm/sec2 LV V1 mean P.8 mmHg Ao mean P.0 mmHg AI P1/2t: 483.7 msec LV V1 mean: 62.0 cm/sec Ao V2 VTI: 48.4 cm LV V1 VTI: 22.2 cm YAW(I,D): 1.4 cm2 YAW(V,D): 1.5 cm2 SV(LVOT): 69.9 ml PA V2 max: 89.6 cm/sec TR max rizwan: 266.0 cm/sec TR max P.4 mmHg Interpretation Summary The estimated ejection fraction is 65 %. Stage 1 diastolic dysfunction. Bubble contrast study negative for right to left interatrial shunt. Trivial mitral valve insufficiency. Trivial tricuspid valve insufficiency. Right ventricular systolic pressure estimated to be 35 mmHg. Mild aortic stenosis. Trivial aortic valve insufficiency. Compared to echo rerport dated 10/03/2016, LV function has remained the same. RVSP has decreased from 41 to 35 mm Hg. Ordering Physician: Felipe Gee D.O. Referring Physician: Felipe Gee D.O. Performed By: Reva Barrera RDCS
== END ==
PROVIDERS: Family Provider Family Medicine; PCP Family Medicine; Referring Provider Internal Medicine Critical Care Medicine; Visit Provider Internal Medicine Critical Care Medicine
DX: R06.02 Shortness of breath (principal)
CPT/HCPCS: 93306; A4216

== ENCOUNTER → 2018-09-26 | Outpatient (CLI) | payer MEDICARE, SELFPAY ==
[2018-09-26 07:46] VITALS: BMI 32.8
[2018-09-26 17:43] LABS: Anion Gap 4 (5-15); BUN 11 mg/dL (7-18); BUN/Creat Ratio 16.5 RATIO (10-20); Calcium,Total 8.6 mg/dL (8.5-10.1); Chloride 102 mmol/L (98-107); Creatinine, Serum 0.67 mg/dL (0.55-1.02); EST Glomerular Filtration Rate 90 mL/min (>60); Est Glom Filt Rate - Afr Amer 109 mL/min (>60); Glucose 97 mg/dL (74-106); Potassium 4.2 mmol/L (3.5-5.1); Sodium Level 139 mmol/L (136-145)
== END | disposition home or self-care (01) ==
LOC: MFPLAB 15:52
PROVIDERS: Family Provider Family Medicine; PCP Family Medicine; Referring Provider Family Medicine; Visit Provider Family Medicine
DX: I48.91 Unspecified atrial fibrillation (principal)
CPT/HCPCS: 36415; 80048

== ENCOUNTER 2019-02-14 15:11 | Emergency (ER) | payer MEDICARE, SELFPAY ==
[2019-01-07 08:05] VITALS: BMI 32.8
[2019-02-14 15:13] VITALS: BP 142/101; PULSE 69; RESP 14; TEMP 36.2; O2SAT 95; BMI 33.4
--- NOTE | 2019-02-14 17:03 | EKG12_ITS ---
Test Reason : WEAKNESS Blood Pressure : / mmHG Vent. Rate : 066 BPM Atrial Rate : 066 BPM P-R Int : 106 ms QRS Dur : 140 ms QT Int : 462 ms P-R-T Axes : 007 005 014 degrees QTc Int : 484 ms Sinus rhythm with short ID Right bundle branch block Abnormal ECG Confirmed by CHRIS HOLLAND, JESSI ([id number]), videotape editor DELISA MAYA ([id number]) on 02/15/2019 1:20:34 PM Referred By: LANDY Confirmed By:JOSÉ PEREZ MD
--- NOTE | 2019-02-14 17:03 | RAD_ITS ---
STUDY: X-RAY CHEST REASON FOR EXAM: Female, 83 years old. Bilateral leg weakness. Recent fall. Tremors. TECHNIQUE: AP portable upright CXR COMPARISON: 07/31/2017 CXR FINDINGS: No evidence of pneumonia, pulmonary edema, pneumothorax or pleural effusion. Cardiac silhouette, hilar and mediastinal contours with no acute findings. Atherosclerosis of the thoracic aorta, sternotomy wires again demonstrated. Degenerative osseous changes with no acute osseous abnormality. Left axillary surgical clips again demonstrated. RAD/Chest 1 View (Portable) IMPRESSION: No acute findings. Electronically Signed: Mo Tay, at 17:25 EDT Tel , Service support ,
[2019-02-14 17:11] VITALS: BP 179/104; PULSE 70; RESP 16; O2SAT 96
[2019-02-14 17:43] LABS: Absolute Lymphocyte Count 2.65 X10^3/uL (0.83-4.51); Absolute Neutrophil Count 5.5 X10^3/uL (2.0-7.7); Basophil# 0.04 X10^3/uL; Basophil% 0.4 % (0-1); Eosinophil# 0.15 X10^3/uL; Eosinophils% 1.7 % (0-5); Hematocrit 43.6 % (37-47); Hemoglobin 14.6 g/dL (12.0-15.0); Lymphocyte # 2.65 X10^3/ul (4.0); Lymphocyte % 29.5 % (19-41); Mean Corp Hgb Conc 33.5 g/dL (32-36); Mean Corpuscular Hgb 31.3 pg (27.0-32.0); Mean Corpuscular Volume 93.6 fL (81-99); Mean Platelet Vol. 10.1 fl (6.2-12.0); Monocyte# 0.62 X10^3/uL; Monocyte% 6.9 % (0-10); NRBC Flagged by Analyzer 0 % (0-5); Neutrophil % 61.3 % (47-70); Platelet Count 215 K/mm3 (150-450); RBC Distribution Width CV 12.3 % (11.6-14.6); RBC Distribution Width SD 42.3 fl (35.1-43.9); Red Blood Count 4.66 M/mm3 (4.2-5.4)
[2019-02-14 18:03] LABS: ALB/GLOB Ratio 0.8 RATIO (0.9-2.4); AST(SGOT) 29 U/L (15-37); Alanine Aminotransfer ALT/SGPT 24 U/L (13-56); Albumin, Serum 3.3 g/dL (3.2-5.0); Alkaline Phosphatase 94 U/L (45-117); BUN 9 mg/dL (7-18); BUN/Creat Ratio 11.6 RATIO (10-20); Calcium,Total 8.6 mg/dL (8.5-10.1); Chloride 103 mmol/L (98-107); Creatinine, Serum 0.77 mg/dL (0.55-1.02); EST Glomerular Filtration Rate 76 mL/min (>60); Est Glom Filt Rate - Afr Amer 92 mL/min (>60); Estimated Creatinine Clearance 33.29 ml/min; Globulin 3.9 g/dL (2.2-4.2); Glucose 110 mg/dL (74-106); Potassium 4.1 mmol/L (3.5-5.1); Protein, Total 7.2 g/dL (6.4-8.2); Sodium Level 139 mmol/L (136-145)
[2019-02-14 18:04] LABS: Anion Gap 4 (5-15)
[2019-02-14] MEDS: 0.9% Normal Saline 1,000 ML 1000 ML IV (18:11)
--- NOTE | 2019-02-14 18:15 | CT_ITS ---
STUDY: CT BRAIN WITHOUT CONTRAST REASON FOR EXAM: Female, 83 years old. Breast cancer, takes Coumadin, hypertension, bilateral leg weakness. TECHNIQUE: Transaxial CT imaging of the brain was performed without administration of intravenous contrast material. Individualized dose optimization techniques were used for this CT. COMPARISON: 07/31/2017 CT brain. FINDINGS: No evidence of intracranial hemorrhage, mass, acute infarct, or hydrocephalus. Chronic microangiopathic changes in the white matter. Chronic lacunar infarct left thalamus unchanged. Atherosclerosis of the intracranial arteries. No acute osseous abnormality. Visualized paranasal sinuses and mastoid air cells patent. Visualized extracranial soft tissues unremarkable. ASPECTS 03/07 CT/Brain/Head without Contrast IMPRESSION: No acute intracranial findings. Electronically Signed: Mo Tay, at 18:47 EDT Tel , Service support ,
[2019-02-14 19:30] VITALS: BP 177/87; PULSE 68; RESP 16; O2SAT 96
[2019-02-14 19:34] LABS: Bacteria 0 SEEN /hpf (None Seen); Mucous, Urine 0 SEEN /hpf (<or=2+); Red Blood Cells-Urine 0 SEEN /hpf (0-5); Squamous Epithelial Cells - UA 0 SEEN /hpf (5-10); White Blood Cells 0 SEEN /hpf (0-5)
[2019-02-14 19:43] LABS: Color, Urine Yellow (Yellow); Glucose, Dipstick Normal (Normal); Ketone-Dipstick Negative (Negative); Leukocyte Esterase-Dipstick 25 /ul (Negative); Nitrite-Dipstick Negative (Negative); Occult Blood-Urine Negative /ul (Negative); Protein-Dipstick Negative (Negative); Urine Bilirubin Dipstick Negative (Negative); Urine Clarity Sl. Cloudy (Clear); Urine Urobilinogen Normal (Normal)
--- NOTE | 2019-02-14 20:35 | ED.DCSUM_ITS ---
- ER Visit Summary Date of Service: 02/14/19 Chief Complaint: Weakness History of Present Illness: The patient is a 83 F who presents with weakness. She states for the past week she has had weakness in her legs intermittently. She had some falls at home. Over the past day her weakness has been constant. She feels like she has a new tremor which is intermittent as well. She states that she has been eating and drinking okay. No nausea, vomiting or diarrhea. She saw her PCP recently and told her that this could be the start of Parkinson's disease. She was also on antibiotics recently for a cold. She does have a walker that she can use at home. Physical Examination: Vital signs reviewed. HEENT exam unremarkable. Heart is regular rate and rhythm without murmurs. Lungs are clear to auscultation. Abdomen is soft and nontender. Extremities reveal no edema. Skin exam normal. Neurologic exam normal. She has no tremor on examination. Test Results: Laboratory studies, urinalysis, EKG, chest x-ray and head CT are all unremarkable Emergency Department Course and Treatment: The patient has no acute cause for her symptoms. She is able to ambulate on her own and with a walker. I do not feel she needs admitted to the hospital. She will need to follow-up with her PCP. Treatment Plan: [] Disposition: Discharge Impression: Weakness This note was generated with [employer] dictation software. It may contain incorrect words, spelling, and punctuation that were not noted in review of the chart prior to signing ED Disposition - Plan for ED Patient: Referrals: Joao Simon MD [Primary Care Provider] -
--- NOTE | 2019-02-14 20:39 | ED.DEP ---
ED Disposition - Plan for ED Patient: Disposition: Home or Assisted Living Instructions: WEAKNESS, Unk Cause Referrals: Joao Simon MD [Primary Care Provider] -
[2019-02-14 20:54] VITALS: PULSE 68; RESP 16; O2SAT 95
== END 2019-02-14 20:56 | disposition home or self-care (01) ==
PROVIDERS: Emergency Provider Emergency Medicine; Family Provider Family Medicine; PCP Family Medicine
DX: R29.898 Other symptoms and signs involving the musculoskeletal system (principal); R29.6 Repeated falls; I45.10 Unspecified right bundle-branch block
CPT/HCPCS: 70450; 71045; 80053; 81001; 85025; 93005; 96360; 96361; 99284; J7030

== ENCOUNTER 2019-04-10 10:30 | Outpatient (RCR) | payer MEDICARE, SELFPAY ==
--- NOTE | 2019-04-03 11:53 | HP.PTEVAL ---
Patient's Visit Information ERASTO RICHARDSON is a 83 year old F referred to Physical Therapy by ARNALDO Garrison with a diagnosis of weakness in legs and unsteady gait. Date of Evaluation: 04/03/19 Physical Therapist: JIMMY Boyd - Visit Plan Frequency: 2x /Week Duration: 4 Weeks Plan: 2X/ week for 4 weeks for gait training, LE strengthening, endurace activities, balance activities, stairs, curb steps, bed mobility with HEP. - Subjective Findings: Pt reports that her legs are so weak and that her body is weak. The pt feels that she has lost a lot of memory and sentences dont come out. If she does not use her rollator she feels that she falls alot. Her Dr's keep talking around Alzheimers and Parkinson's. She does shake a lot. If she stands on one foot her whole body would start to shake. She reports that this really started a couple of months ago. Her 2 years ago and she does not think that she recovered. She lives alone. She does not drive. She relies on her family to get her here. SHe does nothing socially. She plays on the computer and watches a lot of TV. She is just more comfortable sitting quiet. SHe feels that she has depression and is taking meds. It helps somewhat. SHe does not exercises at home. Her daugher is an RN and driving her nuts to start to do exercises. Pt feels that she can walk 1/2 block and then her legs give out and shake. - Objective Gait: Walks with a rollator with decrease step length, flexed trunk. WIthout the rollator and with CGA the pt reaches for the hallway rail with short stride, decreased DF. LE MMT: B hip flex 3+/5, B knee ext 4-/5, B knee flexion 4-/5, Bridge 1/4 normal ROM. Rolling and sit to supine was struggle for the pt and needed verbal cues to change positions. FGA: 7. Tight B gastroc and HS - Balance Scores Functional Gait Assessment Score: 7 % Disability: 76.6700 - Goals Goal 1:: I HEP Goal Time Frame: 4-6 Weeks Goal 2:: Increase LE strength by 1/2 muscle grade (at time of eval: LE MMT: B hip flex 3+/5, B knee ext 4-/5, B knee flexion 4-/5, Bridge 1/4 normal ROM). Goal 3:: Increase FGA by 5 points to decrease fall risk (at time of eval: FGA 7) Goal 4:: Be able to go sit to supine and roll side to side with ease so it will carry over to bed mobility at home Goal Time Frame: 4-6 Weeks Goal 5:: Be able to go up and down 1 flight of stairs with B hand rails recip with CGA Goal Time Frame: 4-6 Weeks Goal 6:: Be able to walk 2 laps around the deptartment with or without the walker to increase endurance with CGA Goal Time Frame: 4-6 Weeks - Rehabilitation Potential Rehabilitation Potential: Good - Anticipated Interventions Thank you for the opportunity to evaluate your patient. For Medicare and Medicare HMO plans, please review the plan of care and approve it. It will need to be FAXED BACK to us at [phone] for Medicare purposes. For Medicare only, by signing this I certify the plan of care. Please let me know if there are questions or concerns regarding this plan of care. Physician Signature: Date:
--- NOTE | 2019-04-16 08:30 | HP.PT.NRP ---
HP - Discharge Summary (1) - Patient Information ERASTO RICHARDSON was seen in my office for initial evaluation on 04/03/19. The following Plan of Care was established for this patient: Initial Frequency: 2x /Week Initial Duration: 4 Weeks This patient was last seen in our office 04/10/19. Pertinent comments regarding their Physical therapy will appear below: Pt cancelled all appointments and is going into a prison. Currently in hospital for another stroke. DC PT At this point I will be discontinuing this patient from physical therapy. I would be happy to see this patient again in the future if found appropriate by the physician. Thank you! Lizzie Menon, MPT
== END 2019-04-10 19:00 | disposition home or self-care (01) ==
LOC: PT 10:30
PROVIDERS: Family Provider Family Medicine; PCP Family Medicine; Referring Provider Nurse Practitioner Adult Health; Visit Provider Nurse Practitioner Adult Health
DX: R29.898 Other symptoms and signs involving the musculoskeletal system (principal); R26.81 Unsteadiness on feet
CPT/HCPCS: 97110; 97162

== ENCOUNTER 2019-04-11 05:30 | Emergency (ER) | payer MEDICARE, SELFPAY ==
[2019-04-11 05:31] VITALS: BP 171/81; PULSE 68; RESP 16; TEMP 36.1; O2SAT 96; BMI 33.9
--- NOTE | 2019-04-11 05:37 | ED.VIS.GEN ---
History of Present Illness Chief Complaint: Nosebleed Informant: Patient Narrative: Patient stated for the last 12 hours she sat on and off right-sided nosebleed and she is on Coumadin. Her last INR 10 days ago was 3.8. She is made no changes to her medications. She has had some mild bleeding. She is been able to hold her nose to get it to stop mostly. Denies any other symptoms. She has seen ENT in the remote past for occasional nosebleeds. She is required cauterization in the past. - Past Medical History (1) Atrial fibrillation with RVR Status: Acute Comment: Status post cardioversion (2) Diarrhea Status: Acute (3) Hypotension Status: Acute (4) Non-ST elevation [place] (NSTEMI) Status: Acute (5) Atrial fibrillation Status: Chronic (6) Bilateral breast cancer Status: Chronic Comment: History of right breast cancer 20 years ago status post mastectomy, chemotherapy. Left breast cancer 3 and half years ago status post lumpectomy currently on anastrozole. 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 (12) Obesity Status: Chronic (13) Restrictive airway disease Status: Chronic (14) Shortness of breath Status: Chronic (15) Status post coronary artery bypass graft Status: Chronic (16) History of appendectomy Status: Resolved (17) History of open heart surgery Status: Resolved Past Medical History - Allergies and Home Meds Allergies/Adverse Reactions: Allergies Penicillins Allergy (Verified 04/11/19 05:34) Anaphylaxis acetaminophen [From Vicodin] Adverse Reaction (Verified 04/11/19 05:34) Itching codeine Adverse Reaction (Verified 04/11/19 05:34) Nausea ezetimibe [From Zetia] Adverse Reaction (Verified 04/11/19 05:34) Itching hydrocodone bitartrate [From Vicodin] Adverse Reaction (Verified 04/11/19 05:34) Itching Ddfryrn-Sjk-Ree Reductase Inhibitor Adverse Reaction (Verified 04/11/19 05:34) Other Primary Care Physician: Joao Simon MD [Primary Care Provider] - Prior records reviewed: Yes Past Medical History: - - See problem list Surgical History: coronary bypass surgery Lives: With Family Smoking Status: Former smoker Alcohol: None Drugs: None - Family History Maternal Family History: Reports: No pertinent history Paternal Family History: Reports: No pertinent history Review of Systems General: Denies: Chills, Fever, Sweats Eyes: Denies: Visual changes - bilaterally, Diplopia ENT: Reports: - - See HPI. Denies: Sore throat Cardiovascular: Denies: Chest pain, Palpitations Respiratory: Denies: Dyspnea, Cough, Dyspnea on exertion Gastrointestinal: Denies: Abdominal pain, Nausea, Vomiting, Diarrhea, Melena, Hematochezia Genitourinary: Denies: Dysuria, Hematuria, Frequency Musculoskeletal: Denies: Back pain, Extremity Pain Skin: Denies: Rash, Wounds Neurological: Denies: Headache, Weakness, Numbness Physical Exam Vital Signs/Narrative: Vital Signs Temp Pulse Resp BP Pulse Ox 04/11/19 05:31 96.9 F L 68 16 171/81 H 96 General: Well nourished, Well developed, No Acute Distress Head: Normocephalic, Atraumatic Eyes: Perrl, EOMI ENT: Moist mucous membranes, - - Nosebleed on the right side?mild in nature. Negative for: No rhinorrhea Neck: Supple, Nontender Cardiovascular: Regular rate, Regular rhythm, No murmurs Respiratory: No distress, CTA bilaterally, Chest nontender Abdomen: Soft, Nontender, Nondistended, Normal bowel sounds Back: Nontender, Normal Inspection Extremities: Nontender, No edema Skin: Normal color, No rash Neurological: Alert, Oriented x3, Cranial nerves II-XII grossly intact, Normal Strength, Normal Sensation Psychological: Normal affect, Normal Mood Diagnostic/Tx/Re-eval - Medical Decision Making Instilled Afrin into her nares. Cotton ball and pressure was held for 20 minutes. Lab work obtained. INR is 1.9. CBC is normal. This stopped the bleeding. Resting comfortably. Pressure was withheld and a cottonball will be kept in her nose. She will follow-up as an outpatient with ENT. I offered her a Rhino Rocket but at this time we will hold off. She does not want this due to the fact that it stopped. She is had a history of pulmonary embolism therefore we will continue Coumadin ED Disposition - Plan for ED Patient: Diagnosis: Nosebleed Instructions: Nosebleed Referrals: Joao Simon MD [Primary Care Provider] - Hugo Cespedes MD [STAFF PHYSICIAN] -
[2019-04-11] MEDS: Oxymetazoline 0.05% 1 SPRAY SPRAY.BTL 2 SPRAY NASAL (05:46)
[2019-04-11 05:52] LABS: Absolute Lymphocyte Count 1.89 X10^3/uL (0.83-4.51); Absolute Neutrophil Count 5.4 X10^3/uL (2.0-7.7); Basophil# 0.05 X10^3/uL; Basophil% 0.6 % (0-1); Eosinophil# 0.25 X10^3/uL; Eosinophils% 3.1 % (0-5); Hematocrit 40.1 % (37-47); Hemoglobin 13.2 g/dL (12.0-15.0); Lymphocyte # 1.89 X10^3/ul (4.0); Lymphocyte % 23.4 % (19-41); Mean Corp Hgb Conc 32.9 g/dL (32-36); Mean Corpuscular Hgb 30.5 pg (27.0-32.0); Mean Corpuscular Volume 92.6 fL (81-99); Monocyte# 0.46 X10^3/uL; Monocyte% 5.7 % (0-10); NRBC Flagged by Analyzer 0 % (0-5); Neutrophil # 5.42 X10^3/uL (2.7-7.7); Platelet Count 229 K/mm3 (150-450); RBC Distribution Width CV 12.5 % (11.6-14.6); RBC Distribution Width SD 42.6 fl (35.1-43.9); Red Blood Count 4.33 M/mm3 (4.2-5.4); White Blood Count 8.1 K/mm3 (4.4-11.0)
[2019-04-11 05:59] LABS: International Normalized Ratio 1.9; Prothrombin Time (Protime)PT. 21.9 SECONDS (11.7-14.9)
[2019-04-11 06:35] VITALS: BP 160/70; PULSE 75; RESP 18; O2SAT 96
== END 2019-04-11 06:37 | disposition home or self-care (01) ==
PROVIDERS: Emergency Provider Emergency Medicine; Family Provider Family Medicine; PCP Family Medicine
DX: R04.0 Epistaxis (principal); I48.91 Unspecified atrial fibrillation; I25.2 Old myocardial infarction; I25.10 Atherosclerotic heart disease of native coronary artery without angina pectoris; F32.9 Major depressive disorder, single episode, unspecified; E66.9 Obesity, unspecified; J45.909 Unspecified asthma, uncomplicated; I11.0 Hypertensive heart disease with heart failure; I50.9 Heart failure, unspecified; Z85.3 Personal history of malignant neoplasm of breast; Z86.711 Personal history of pulmonary embolism; Z95.1 Presence of aortocoronary bypass graft; Z79.01 Long term (current) use of anticoagulants; Z79.899 Other long term (current) drug therapy; Z87.891 Personal history of nicotine dependence
CPT/HCPCS: 30901; 36415; 85025; 85610; 99282

== ENCOUNTER 2019-04-12 13:26 | Emergency (ER) | payer MEDICARE, SELFPAY ==
[2019-04-11 05:31] VITALS: BMI 33.9
[2019-04-12] VITALS (13 sets, daily range): BP systolic 104–144; BP diastolic 61–108; PULSE 61–69; RESP 13–68; TEMP 35.5–36.6; O2SAT 96–98; BMI 33.4
--- NOTE | 2019-04-12 13:39 | RAD_ITS ---
STUDY: X-RAY CHEST REASON FOR EXAM: Female, 83 years old. Right-sided paresthesia. TECHNIQUE: Single AP portable view of the chest. COMPARISON: Comparison is made with prior examination dated February 14, 2019. FINDINGS: EKG electrodes are seen. The lungs are clear and expanded. There is no demonstrated pleural abnormality. Sternal cerclage wires and vascular clips are present from a prior sternotomy and coronary artery bypass graft procedure (CABG). Borderline cardiomegaly. Normal mediastinum and sue. Normal visualized pulmonary arteries. There is atherosclerotic calcification of the aortic arch with tortuosity. There are degenerative changes of the visualized thoracic spine. Normal visualized ribs, clavicles, and shoulders. There is no demonstrated abnormality of the visualized soft tissue structures of the upper abdomen. RAD/Chest 1 View IMPRESSION: No acute abnormality is seen. Electronically Signed: Agapito Jimenez, at 14:10 EST , Service support ,
--- NOTE | 2019-04-12 13:39 | CT_ITS ---
STUDY: CT BRAIN WITHOUT CONTRAST REASON FOR EXAM: Female, 83 years old. Right-sided weakness. RADIATION DOSAGE (If Supplied By Facility): CTDIvol = ( 44.99 ) mGy, DLP = ( 796.11 ) mGycm TECHNIQUE: Transaxial CT imaging of the brain was performed without administration of intravenous contrast material. Individualized dose optimization techniques were used for this CT. COMPARISON: Comparison is made with prior study there are February 14, 2019. FINDINGS: Normal soft tissue structures. Normal calvarium. There is mild cerebral atrophy with widening of the extra-axial spaces and ventricular dilatation. There are areas of decreased attenuation within the white matter tracts of the supratentorial brain, consistent with microvascular disease changes. There are small punctate calcifications of the basal ganglia which are seen in the aging brain as a normal variant. Stable old small left thalamic lacunar infarct. Normal brainstem. Normal cerebellum. There is no intracranial hemorrhage. There are no findings of an acute ischemic infarction. Atherosclerotic calcification of the cavernous portions of the internal carotid artery bilaterally. Normal visualized paranasal sinuses. CT/Brain/Head without Contrast IMPRESSION: Chronic involutional changes of the brain. No acute abnormality is seen. N.B. : The above information has been verbally conveyed by Agapito Jimenez to Rosemary Flores on 04/12/2019 13:49:45 (ET). Electronically Signed: Agapito Jimenez, at 13:50 EST , Service support ,
--- NOTE | 2019-04-12 13:39 | EKG12_ITS ---
Test Reason : CVA Blood Pressure : / mmHG Vent. Rate : 066 BPM Atrial Rate : 066 BPM P-R Int : 172 ms QRS Dur : 134 ms QT Int : 416 ms P-R-T Axes : 056 001 009 degrees QTc Int : 436 ms Normal sinus rhythm Right bundle branch block Abnormal ECG Confirmed by CALLI HOLLAND, LUCILA ([id number]), associate entertainment editor CRISTINO ARCHIBALD ([id number]) on 04/16/2019 11:09:07 AM Referred By: Rosalva Ramon Confirmed By:LUCILA MCCURDY MD
--- NOTE | 2019-04-12 13:42 | ED.VIS.STROK ---
History of Present Illness Chief Complaint: Neuro S/Sx Informant: Patient Onset: Today Quality and Location: Right Face Paresthesia, Right Leg Parasthesia, Right Arm Weakness Narrative: Patient is a 83-year-old female with history of PE on Coumadin therapy presenting with right-sided paresthesias. Patient states she went to bed at 10:00 last night and felt fine. She lives home alone and does not drive. She woke up at 930 this morning and noticed that her right side felt numb. She waited until around 1 PM to let any family know about this. Patient notes she has been feeling well for the past few days and has been more tired. She is been having recurrent nosebleeds was actually the ER yesterday for treatment of epistaxis. Patient states she has had no further nosebleeding. She denies any chest pain, shortness of breath, difficulty breathing, nausea, vomiting or abdominal pain. She denies any urinary symptoms. Patient is supposed to be in physical therapy and is supposed to use a Rollator at baseline. Prior similar symptoms: No Past Medical History - Allergies and Home Meds Allergies/Adverse Reactions: Allergies Penicillins Allergy (Verified 04/12/19 13:50) Anaphylaxis acetaminophen [From Vicodin] Adverse Reaction (Verified 04/12/19 13:50) Itching codeine Adverse Reaction (Verified 04/12/19 13:50) Nausea ezetimibe [From Zetia] Adverse Reaction (Verified 04/12/19 13:50) Itching hydrocodone bitartrate [From Vicodin] Adverse Reaction (Verified 04/12/19 13:50) Itching Utukbtz-Ksf-Ujp Reductase Inhibitor Adverse Reaction (Verified 04/12/19 13:50) Other Primary Care Physician: Joao Simon MD [Primary Care Provider] - Past Medical History: - - Hypertension, hyperlipidemia, coronary artery disease, atrial flutter atrial fibrillation, and STEMI, hypertension, depression Surgical History: coronary bypass surgery Lives: Alone Smoking Status: Former smoker - Family History Maternal Family History: Reports: No pertinent history Paternal Family History: Reports: No pertinent history Review of Systems General: Reports: Malaise. Denies: Chills, Fever, Sweats Eyes: Denies: Visual changes - bilaterally, Diplopia ENT: Denies: Rhinorrhea, Sore throat Cardiovascular: Denies: Chest pain, Palpitations Respiratory: Denies: Dyspnea, Cough, Dyspnea on exertion Gastrointestinal: Denies: Abdominal pain, Nausea, Vomiting, Diarrhea, Melena, Hematochezia Genitourinary: Denies: Dysuria, Hematuria, Frequency Musculoskeletal: Denies: Back pain, Extremity Pain Skin: Denies: Rash, Wounds Neurological: Reports: Parasthesia - right sided . Denies: Headache, Weakness, Numbness STROKE Inital Vital Signs reviewed: Yes - NIHSS Initial 1a Level of Consciousness: 0 1b LOC Questions (Score 2 if aphasic/stupor): 0 1c LOC Commands (Only score 1st attempt): 0 2 Best Gaze (If aphasic, use reflexive mvmts.): 0 3 Visual: 0 4 Facial Palsy: 0 5 Motor Arm Right (UN = amputation/fusion): 0 5 Motor Arm Left: 0 6 Motor Leg Right: 0 6 Motor Leg Left: 0 7 Limb ataxia (Only + if out of proportion): 0 8 Sensory (Aphasia/stupor=0 or 1, coma=2): 1 9 Best Language: 0 10 Dysarthria (mute, coma=2, intubated=UN): 0 11 Extinction and Inattention (only scored if +): 0 Total Score: 1 General: Well nourished, Well developed Head: Normocephalic, Atraumatic Eyes: Perrl, EOMI ENT: Moist mucous membranes, No rhinorrhea Neck: Supple, Nontender Cardiovascular: Regular rate, Regular rhythm, No murmurs Respiratory: No distress, CTA bilaterally, Chest nontender Abdomen: Soft, Nontender, Nondistended, Normal bowel sounds Back: Nontender, Normal Inspection Extremities: Nontender, No edema Skin: Normal color, No rash Neurological: Alert, Oriented x3, Cranial nerves II-XII grossly intact, Normal Strength, Parasthesia - right sided Psychological: Normal affect Diagnostic/Tx/Re-eval Clinical Impression(s) from Imaging Studies Brain CT 04/12/19 13:39 IMPRESSION: Chronic involutional changes of the brain. No acute abnormality is seen. N.B. : The above information has been verbally conveyed by Agapito Jimenez to Rosemary Flores on 04/12/2019 13:49:45 (ET). Electronically Signed: Agapito Jimenez, at 13:50 EST , Service support , ADDENDUM: 04/12/19 1357 IMPRESSION: Chronic involutional changes of the brain. No acute abnormality is seen. N.B. : The above information has been verbally conveyed by Agapito Jimenez to Rosemary Flores on 04/12/2019 13:49:45 (ET). Electronically Signed: Agapito Jimenez, at 13:50 EST , Service support , Chest X-Ray 04/12/19 13:39 IMPRESSION: No acute abnormality is seen. Electronically Signed: Agapito Jimenez, at 14:10 EST , Service support , Laboratory Data 04/12/19 04/12/19 04/12/19 13:32 13:35 13:35 WBC 8.8 RBC 4.11 L Hgb 12.6 Hct 38.8 MCV 94.4 MCH 30.7 MCHC 32.5 RDW Std Deviation 44.8 H RDW Coeff of Lindy 13.0 Plt Count 242 MPV 10.1 Immature Gran % (Auto) 0.300 Neut % (Auto) 63.5 Lymph % (Auto) 26.2 Cedar % (Auto) 6.3 Eos % (Auto) 3.1 Baso % (Auto) 0.6 Absolute Neuts (auto) 5.6 Absolute Lymphs (auto) 2.31 Nucleated RBC % 0 PT INR APTT Sodium 141 Potassium 3.7 Chloride 104 Carbon Dioxide 32.0 Anion Gap 5 BUN 19 H Creatinine 0.78 Estim Creat Clear Calc 33.29 Est GFR (MDRD) Af Amer 91 Est GFR (MDRD) Non-Af 76 BUN/Creatinine Ratio 24.5 H Glucose 97 Calcium 8.6 Troponin I < 0.015 Urine Color Urine Clarity Urine pH Ur Specific Lenox Urine Protein Urine Glucose (UA) Urine Ketones Urine Occult Blood Urine Nitrite Urine Bilirubin Urine Urobilinogen Ur Leukocyte Esterase Urine RBC Urine WBC Ur Squamous Epith Cells Urine Bacteria Urine Mucus POC Glucose 117 H 04/12/19 04/12/19 14:20 14:50 WBC RBC Hgb Hct MCV MCH MCHC RDW Std Deviation RDW Coeff of Lindy Plt Count MPV Immature Gran % (Auto) Neut % (Auto) Lymph % (Auto) Cedar % (Auto) Eos % (Auto) Baso % (Auto) Absolute Neuts (auto) Absolute Lymphs (auto) Nucleated RBC % PT 20.6 H INR 1.8 APTT 28.5 Sodium Potassium Chloride Carbon Dioxide Anion Gap BUN Creatinine Estim Creat Clear Calc Est GFR (MDRD) Af Amer Est GFR (MDRD) Non-Af BUN/Creatinine Ratio Glucose Calcium Troponin I Urine Color Yellow Urine Clarity Sl. Cloudy Urine pH 6.5 Ur Specific Lenox 1.010 Urine Protein Negative Urine Glucose (UA) Normal Urine Ketones Negative Urine Occult Blood Negative Urine Nitrite Negative Urine Bilirubin Negative Urine Urobilinogen Normal Ur Leukocyte Esterase Negative Urine RBC 0 SEEN Urine WBC 0 SEEN Ur Squamous Epith Cells 0-5 SEEN Urine Bacteria 0 SEEN Urine Mucus 0 SEEN POC Glucose - Rhythm Strip Rhythm Strip: Sinus Rhythm Rate: 66 Ectopy: None - EKG Initial EKG Interpretation: Sinus Rhythm, RBBB, - - Normal sinus rhythm at a rate of 66 Normal intervals Right bundle branch block Nonspecific T wave inversion in lead III, Normal axis - Medical Decision Making Stroke Team Activated: Yes Reviewed Inclusion/Exclusion criteria: Yes - She not a candidate for TPA based on timing of symptoms Was Patient considered for Endovascular Intervention?: No - Low NIH IV Alteplase (t-PA) Administered: No Evaluated for right-sided paresthesias. Her NIH is 1. Her symptoms have been present since 930 this morning and her last known well was 10 PM. Patient is not a candidate for TPA. Discussed with stroke doctor at [facility] who states that based on her symptoms alone she is also not a candidate for endovascular treatment. He recommends further stroke evaluation but it does not need to be done emergently. Patient be admitted for further evaluation of her stroke. As this hospital does not have neurology on the weekends, she is transferred to [facility]. She is stable at time of disposition. Her Coumadin is found to be slightly subtherapeutic at 1.8. Patient is given aspirin in the emergency room. Remainder work-up is largely negative. ED Disposition - Plan for ED Patient: Disposition: [facility] Diagnosis: Paresthesia of right arm and leg, Right facial numbness, Subtherapeutic anticoagulation Referrals: Joao Simon MD [Primary Care Provider] -
[2019-04-12 13:54] LABS: Absolute Lymphocyte Count 2.31 X10^3/uL (0.83-4.51); Absolute Neutrophil Count 5.6 X10^3/uL (2.0-7.7); Basophil# 0.05 X10^3/uL; Basophil% 0.6 % (0-1); Eosinophil# 0.27 X10^3/uL; Eosinophils% 3.1 % (0-5); Hematocrit 38.8 % (37-47); Hemoglobin 12.6 g/dL (12.0-15.0); Lymphocyte # 2.31 X10^3/ul (4.0); Lymphocyte % 26.2 % (19-41); Mean Corp Hgb Conc 32.5 g/dL (32-36); Mean Corpuscular Hgb 30.7 pg (27.0-32.0); Mean Corpuscular Volume 94.4 fL (81-99); Mean Platelet Vol. 10.1 fl (6.2-12.0); Monocyte# 0.56 X10^3/uL; Monocyte% 6.3 % (0-10); NRBC Flagged by Analyzer 0 % (0-5); Neutrophil # 5.61 X10^3/uL (2.7-7.7); Neutrophil % 63.5 % (47-70); Platelet Count 242 K/mm3 (150-450); RBC Distribution Width SD 44.8 fl (35.1-43.9); Red Blood Count 4.11 M/mm3 (4.2-5.4); White Blood Count 8.8 K/mm3 (4.4-11.0)
[2019-04-12 13:56] LABS: Bedside Glucose 117 mg/dL (70-110)
[2019-04-12 14:07] LABS: Anion Gap 5 (5-15); BUN 19 mg/dL (7-18); BUN/Creat Ratio 24.5 RATIO (10-20); Calcium,Total 8.6 mg/dL (8.5-10.1); Chloride 104 mmol/L (98-107); Creatinine, Serum 0.78 mg/dL (0.55-1.02); EST Glomerular Filtration Rate 76 mL/min (>60); Est Glom Filt Rate - Afr Amer 91 mL/min (>60); Estimated Creatinine Clearance 33.29 ml/min; Glucose 97 mg/dL (74-106); Potassium 3.7 mmol/L (3.5-5.1); Sodium Level 141 mmol/L (136-145)
--- NOTE | 2019-04-12 14:20 | CM.ED ---
Social Work Consult: Stroke Alert Met with patient family. Support and active listening provided. Lance CARTER, MAE
[2019-04-12 14:44] LABS: International Normalized Ratio 1.8; Prothrombin Time (Protime)PT. 20.6 SECONDS (11.7-14.9)
[2019-04-12 14:45] LABS: Partial Thromboplast Time 28.5 Seconds (24.1-36.2)
[2019-04-12 14:52] LABS: Bacteria 0 SEEN /hpf (None Seen); Mucous, Urine 0 SEEN /hpf (<or=2+); Red Blood Cells-Urine 0 SEEN /hpf (0-5); White Blood Cells 0 SEEN /hpf (0-5)
[2019-04-12 15:02] LABS: Color, Urine Yellow (Yellow); Glucose, Dipstick Normal (Normal); Ketone-Dipstick Negative (Negative); Leukocyte Esterase-Dipstick Negative /ul (Negative); Nitrite-Dipstick Negative (Negative); Occult Blood-Urine Negative /ul (Negative); Protein-Dipstick Negative (Negative); Urine Bilirubin Dipstick Negative (Negative); Urine Clarity Sl. Cloudy (Clear); Urine Urobilinogen Normal (Normal); Urine pH 6.5 (5.0 - 8.0)
[2019-04-12 15:11] LABS: Squamous Epithelial Cells - UA 0-5 SEEN /hpf (5-10)
[2019-04-12] MEDS: Aspirin 325 MG Tablet PO (15:49)
--- NOTE | 2019-04-12 16:45 | ED.RN ---
FAMILY DECLINES TRANSFER TO [facility], REQUESTS [facility]. FAMILY AWARE TRANSFER TIME MAY BE PROLONGED IF GOING TO [facility].
--- NOTE | 2019-04-12 18:44 | ED.RN ---
REPORT TO [facility]. PT OUT OF ED WITH EMS FOR TRANSPORT TO [facility]. PT SKIN P/W/D, RESP EVEN AND UNLABORED, PT A&O X 3, NO DISTRESS NOTED.
== END 2019-04-12 18:45 | disposition short-term general hospital (02) ==
PROVIDERS: Emergency Provider Emergency Medicine; Family Provider Family Medicine; PCP Family Medicine
DX: R20.2 Paresthesia of skin (principal); Z79.01 Long term (current) use of anticoagulants; R79.1 Abnormal coagulation profile; R20.0 Anesthesia of skin; Z86.711 Personal history of pulmonary embolism; Z87.891 Personal history of nicotine dependence; I10 Essential (primary) hypertension; E78.5 Hyperlipidemia, unspecified; I25.10 Atherosclerotic heart disease of native coronary artery without angina pectoris; I48.91 Unspecified atrial fibrillation; I25.2 Old myocardial infarction; F32.9 Major depressive disorder, single episode, unspecified; Z79.899 Other long term (current) drug therapy; Z95.1 Presence of aortocoronary bypass graft
CPT/HCPCS: 70450; 71045; 80048; 81001; 82962; 84484; 85025; 85610; 85730; 93005; 99251; 99285; J7030; A4216; G0463

== ENCOUNTER → 2019-06-24 15:17 | Outpatient (CLI) | payer MEDICARE, SELFPAY ==
[2019-04-12 13:48] VITALS: BMI 33.4
--- NOTE | 2019-06-24 15:23 | RAD_ITS ---
STUDY: X-RAY - LUMBOSACRAL SPINE REASON FOR EXAM: Female, 83 years old. LOW BACK PAIN, CHRONIC TECHNIQUE: 6 view(s) of the lumbosacral spine were obtained. Including lateral flexion and extension views. COMPARISON: None FINDINGS: Normal lumbar lordosis. There is a gentle dextroscoliosis of the lumbar spine. There is normal alignment of the vertebrae. Limited visualization of the thoracolumbar junction. There is multilevel endplate spondylosis of the lumbar vertebrae. There is multi-level degenerative disc disease with multi-level disc space narrowing. Extensive facet arthropathy with neural foraminal narrowing L5-S1, L4-3-4, L2 1 with posterior inferior end plate spurring, no significant narrowing L4-5 with inferior posterior spurring. Vacuum disc formation 5 S1 L2-3. No abnormal motion detected on flexion and extension view. Normal bilateral sacral ala, sacroiliac joints, and visualized sacrum. There is atherosclerotic calcification of the abdominal aorta with a fusiform infrarenal demonstrated aneurysm with a 4 cm AP and 4.5 cm craniocaudal dimension. There are surgical changes in the right pelvis and likely anterior pelvic abdominal wall. RAD/L/S Spine Comp/w Bending Views IMPRESSION: Degenerative changes predominantly involving the facet joints with neural foraminal narrowing. No compression injury or abnormal motion on flexion and extension detected. Diffuse atherosclerosis with an infrarenal fusiform abdominal aortic aneurysm as above. Electronically Signed: Ban Spencer MD at 7:02 EST , Service support ,
--- NOTE | 2019-06-24 16:40 | RAD_ITS ---
STUDY: X-RAY - RIGHT HAND, ATTENTION FIRST FINGER REASON FOR EXAM: Female, 83 years old. PAIN TO BASE OF 1ST DIGIT AND THROUGHOUT CARPALS S/P FALL IN APRIL, NOT GETTING BETTER TECHNIQUE: 3 view(s) of the finger were obtained. COMPARISON: None. FINDINGS: Normal metacarpal head. There is mild degenerative arthrosis of the metacarpophalangeal joint. Normal proximal phalanx. Normal distal phalanx. There is mild degenerative arthrosis of the proximal interphalangeal joint. There is mild degenerative arthrosis of the distal interphalangeal joint. There is atherosclerosis of the distal forearm. RAD/Finger(s) Min 2 Views IMPRESSION: Degenerative changes. There is no acute displaced fracture or dislocation. Electronically Signed: Ban Spencer MD at 3:12 EST , Service support ,
== END ==
PROVIDERS: PCP Family Medicine; Referring Provider Psychiatry & Neurology Neurology; Visit Provider Psychiatry & Neurology Neurology
DX: R53.1 Weakness (principal); M79.644 Pain in right finger(s)
CPT/HCPCS: 72114; 73140

== ENCOUNTER → 2019-07-23 09:56 | Outpatient (CLI) | payer MEDICARE, SELFPAY ==
[2019-04-12 13:48] VITALS: BMI 33.4
[2019-07-23 12:22] LABS: Erythrocyte Sedimentation Rate 5 mm/hr (0-30)
[2019-07-23 12:35] LABS: Hemoglobin A1c 6.4 % (4.2-6.3)
[2019-07-23 12:42] LABS: Thyroid Stim Hormone (TSH) 2.85 uIU/mL (0.358-3.74)
[2019-07-23 13:10] LABS: Hepatitis C Antibody Non-Reactive (Nonreactive); Vitamin B12 371 pg/mL (211-911)
[2019-07-24 14:08] LABS: RNP Ab <0.2 AI (0.0-0.9); Smith Ab <0.2 AI (0.0-0.9)
[2019-07-24 15:58] LABS: ANTINUCLEAR ANTIBODIES DIRECT Negative (Negative)
[2019-07-24 16:08] LABS: Immunoglobulin A 367 mg/dL (64-422); Immunoglobulin G 996 mg/dL (700-1600); PROEL- Albumin 3.4 g/dL (2.9-4.4); PROEL- Alpha-1 Globulin 0.2 g/dL (0.0-0.4); PROEL- Alpha-2 Globulin 0.9 g/dL (0.4-1.0); PROEL- Beta Globulin 1.3 g/dL (0.7-1.3); PROEL- Globulin, Total 3.5 g/dL (2.2-3.9); PROEL- TOTAL PROTEIN 6.9 g/dL (6.0-8.5)
[2019-07-24 20:04] LABS: Immunoglobulin M 98 mg/dL (26-217)
== END ==
PROVIDERS: PCP Family Medicine; Referring Provider Family Medicine; Visit Provider Psychiatry & Neurology Neurology
DX: R73.9 Hyperglycemia, unspecified (principal); G62.9 Polyneuropathy, unspecified; R53.83 Other fatigue
CPT/HCPCS: 36415; 82607; 82746; 82784; 83036; 84165; 84443; 85652; 86038; 86235; 86334; 86431; 86803

== ENCOUNTER → 2019-09-02 13:14 | Outpatient (CLI) | payer MEDICARE, SELFPAY ==
[2019-04-12 13:48] VITALS: BMI 33.4
[2019-09-02 13:22] LABS: Bacteria 0 SEEN /hpf (None Seen); Mucous, Urine 0 SEEN /hpf (<or=2+); Red Blood Cells-Urine 0 SEEN /hpf (0-5); Squamous Epithelial Cells - UA 0 SEEN /hpf (5-10); White Blood Cells 0 SEEN /hpf (0-5)
[2019-09-02 14:53] LABS: Color, Urine Yellow (Yellow); Glucose, Dipstick Normal (Normal); Ketone-Dipstick Negative (Negative); Leukocyte Esterase-Dipstick Negative /ul (Negative); Nitrite-Dipstick Negative (Negative); Occult Blood-Urine 10 /ul (Negative); Protein-Dipstick Negative (Negative); Urine Bilirubin Dipstick Negative (Negative); Urine Clarity Clear (Clear); Urine Urobilinogen Normal (Normal)
== END ==
PROVIDERS: PCP Family Medicine; Referring Provider Family Medicine; Visit Provider Family Medicine
DX: R30.0 Dysuria (principal)
CPT/HCPCS: 81001; 87086; 87088

== ENCOUNTER 2019-09-06 12:23 | Emergency (ER) | payer MEDICARE, SELFPAY ==
[2019-04-12 13:48] VITALS: BMI 33.4
[2019-09-06 12:24] VITALS: BP 157/87; PULSE 64; RESP 16; TEMP 36.5; O2SAT 96; BMI 33.2
[2019-09-06] MEDS: Mixture 30 ML Bottle 5 ML TOPICAL (12:40)
[2019-09-06 12:50] LABS: Absolute Lymphocyte Count 2.25 X10^3/uL (0.83-4.51); Absolute Neutrophil Count 4.5 X10^3/uL (2.0-7.7); Basophil# 0.05 X10^3/uL; Basophil% 0.7 % (0-1); Eosinophil# 0.22 X10^3/uL; Eosinophils% 2.9 % (0-5); Hematocrit 42.9 % (37-47); Hemoglobin 13.6 g/dL (12.0-15.0); Lymphocyte # 2.25 X10^3/ul (4.0); Lymphocyte % 29.7 % (19-41); Mean Corp Hgb Conc 31.7 g/dL (32-36); Mean Corpuscular Hgb 29.4 pg (27.0-32.0); Mean Corpuscular Volume 92.9 fL (81-99); Monocyte# 0.56 X10^3/uL; Monocyte% 7.4 % (0-10); NRBC Flagged by Analyzer 0 % (0-5); Neutrophil # 4.48 X10^3/uL (2.7-7.7); Neutrophil % 59.2 % (47-70); Platelet Count 235 K/mm3 (150-450); RBC Distribution Width CV 13.2 % (11.6-14.6); RBC Distribution Width SD 44.6 fl (35.1-43.9); Red Blood Count 4.62 M/mm3 (4.2-5.4); White Blood Count 7.6 K/mm3 (4.4-11.0)
[2019-09-06 12:57] LABS: Prothrombin Time (Protime)PT. 44.3 SECONDS (11.7-14.9)
[2019-09-06 12:59] LABS: International Normalized Ratio 4.7
--- NOTE | 2019-09-06 13:05 | ED.VIS.GEN ---
History of Present Illness Chief Complaint: Nosebleed Informant: Patient Onset: Hours - 22 Context: Sudden Onset - After scratching the inside of her nose Timing: Continuous Quality: Oozing Location: Right naris Current Severity: Mild Maximum Severity: Moderate Worsened by: Nothing Relieved by: Holding pressure Associated Symptoms: Nothing. Think she is swallowing some blood but does not know how much. Narrative: No lightheadedness, chest pain, near-syncope, or syncope. No other symptoms. She had a prior stroke and has difficulty speaking that is chronic for her. Patient is on warfarin for chronic A. fib, she has not had her INR checked in about a month. - Past Medical History (1) Atrial fibrillation Status: Chronic (2) Bilateral breast cancer Status: Chronic Comment: History of right breast cancer 20 years ago status post mastectomy, chemotherapy. Left breast cancer 3 and half years ago status post lumpectomy currently on anastrozole. (3) Coronary artery disease Status: Chronic (4) Depression Status: Chronic (5) Heart failure with preserved ejection fraction Status: Chronic (6) Hypertension Status: Chronic (7) Restrictive airway disease Status: Chronic Past Medical History - Allergies and Home Meds Allergies/Adverse Reactions: Allergies Penicillins Allergy (Verified 09/06/19 12:25) Anaphylaxis acetaminophen [From Vicodin] Adverse Reaction (Verified 09/06/19 12:25) Itching codeine Adverse Reaction (Verified 09/06/19 12:25) Nausea ezetimibe [From Zetia] Adverse Reaction (Verified 09/06/19 12:25) Itching hydrocodone bitartrate [From Vicodin] Adverse Reaction (Verified 09/06/19 12:25) Itching Rgtwnjw-Fjn-Clf Reductase Inhibitor Adverse Reaction (Verified 09/06/19 12:25) Other Primary Care Physician: Serge Sexton MD [STAFF PHYSICIAN] - (call for appt to be seen on monday if possible; if not, return to ER for packing removal and INR recheck) Surgical History: appendectomy, coronary bypass surgery Lives: Alone Smoking Status: Former smoker - Family History Maternal Family History: Reports: No pertinent history Paternal Family History: Reports: No pertinent history Review of Systems General: Denies: Fever, Malaise ENT: Reports: - - Nosebleed. Denies: Bilateral ear pain, Sore throat Cardiovascular: Denies: Chest pain, Palpitations, Heart racing Respiratory: Denies: Dyspnea, Cough Gastrointestinal: Denies: Abdominal pain, Nausea, Vomiting Hematologic: Reports: Easy bruising, Easy bleeding Physical Exam Vital Signs/Narrative: Vital Signs Temp Pulse Resp BP Pulse Ox 09/06/19 12:24 97.7 F L 64 16 157/87 H 96 Inital Vital Signs reviewed: Yes General: Well nourished, Well developed, No Acute Distress Head: Normocephalic, Atraumatic ENT: - - Blood in posterior oropharynx in addition to coming from the right naris. Relatively mild after gauze that she had placed in her nose was removed. Left side is clear. Neck: Supple, Nontender Skin: Normal color, No rash, No Trauma Neurological: Alert, Oriented x3 Psychological: Normal affect, Normal Mood Diagnostic/Tx/Re-eval Laboratory Tests 09/06/19 09/06/19 Range/Units 12:35 12:35 WBC 7.6 (4.4-11.0) K/mm3 RBC 4.62 (4.2-5.4) M/mm3 Hgb 13.6 (12.0-15.0) g/dL Hct 42.9 (37-47) % MCV 92.9 (81-99) fL MCH 29.4 (27.0-32.0) pg MCHC 31.7 L (32-36) g/dL RDW Std Deviation 44.6 H (35.1-43.9) fl RDW Coeff of Lindy 13.2 (11.6-14.6) % Plt Count 235 (150-450) K/mm3 MPV 10.0 (6.2-12.0) fl Immature Gran % (Auto) 0.100 (0.0-0.9) % Neut % (Auto) 59.2 (47-70) % Lymph % (Auto) 29.7 (19-41) % [place] % (Auto) 7.4 (0-10) % Eos % (Auto) 2.9 (0-5) % Baso % (Auto) 0.7 (0-1) % Absolute Neuts (auto) 4.5 (2.0-7.7) X10^3/uL Absolute Lymphs (auto) 2.25 (0.83-4.51) X10^3/uL Nucleated RBC % 0 (0-5) % PT 44.3 H (11.7-14.9) SECONDS INR 4.7 H* - Medical Decision Making Blood counts are good, her INR is high at 4.7. She will be told to hold her Coumadin after discharge. At discharge patient has an anterior nasal packing with good hemostasis, she is tolerating it well and stable for follow-up. There is no otolaryngology on-call right now. It is Monday. Technically she should have the packing removed on Monday, but if it was Monday or Monday that would be adequate without the need for antibiotics. She has a very short packing inserted. Therefore, she was advised that if after the she is not able to get an appointment with otolaryngology, she should return to the ER for removal. - Critical Care Time Critical care time (excluding procedures): 30-74 minutes - 30 min, not including procedure time, Including time spent:, Discussing w/Patient &/or Family/Direct Mail Manager, Discussing w/Consultants - ENT not avail / not on-call, Performing Direct Patient Care at Bedside Procedures Procedure(s): Epistaxis treatment. Initially patient evacuated all of the clots and blood from her nose. There was mild bleeding it was from the septum on the right naris but deep within, difficult to reach for cauterization. Rubina mix was placed within the naris via aerosolization, followed by a nasal pledget soaked in it. On removal, she still has some small amount of blood in the posterior oropharynx, and there is still mild bleeding from the apparent source at the septum. Therefore a short approximately 3 cm long Merisel packing was placed with good anesthesia and hemostasis. ED Disposition - Plan for ED Patient: Disposition: Home or Assisted Living Diagnosis: Acute anterior epistaxis, Supratherapeutic INR Instructions: ED Epistaxis Adult Referrals: Serge Sexton MD [STAFF PHYSICIAN] - (call for appt to be seen on monday if possible; if not, return to ER for packing removal and INR recheck) Additional Instructions: Hold your Coumadin until your doctor tells you otherwise or you have your INR rechecked. Your INR was 4.7.
[2019-09-06 15:45] VITALS: BP 140/73; PULSE 72; RESP 17; O2SAT 96
== END 2019-09-06 15:37 | disposition home or self-care (01) ==
PROVIDERS: Emergency Provider Emergency Medicine; PCP Family Medicine
DX: R04.0 Epistaxis (principal); R79.1 Abnormal coagulation profile; I48.20 Chronic atrial fibrillation, unspecified; I11.0 Hypertensive heart disease with heart failure; I50.32 Chronic diastolic (congestive) heart failure; I25.10 Atherosclerotic heart disease of native coronary artery without angina pectoris; F32.9 Major depressive disorder, single episode, unspecified; Z79.899 Other long term (current) drug therapy; Z79.01 Long term (current) use of anticoagulants; Z88.8 Allergy status to other drugs, medicaments and biological substances; Z88.5 Allergy status to narcotic agent; Z88.0 Allergy status to penicillin; Z86.73 Personal history of transient ischemic attack (TIA), and cerebral infarction without residual deficits; Z85.3 Personal history of malignant neoplasm of breast; Z92.21 Personal history of antineoplastic chemotherapy; Z87.891 Personal history of nicotine dependence; Z90.11 Acquired absence of right breast and nipple
CPT/HCPCS: 30901; 85025; 85610; 99282

== ENCOUNTER → 2019-10-24 | Outpatient (CLI) | payer MEDICARE, SELFPAY ==
[2019-10-28 14:55] LABS: HPV Reflexed? NOT INDICATED
== END | disposition home or self-care (01) ==
PROVIDERS: PCP Family Medicine; Visit Provider Family Medicine
DX: Z01.419 Encounter for gynecological examination (general) (routine) without abnormal findings (principal)
CPT/HCPCS: 88175; G0145

== ENCOUNTER → 2019-12-11 04:16 | Outpatient (CLI) | payer MEDICARE, SELFPAY ==
[2019-12-11 10:55] LABS: Prothrombin Time Fingerstick 39.3 SEC (11.9-14.4)
== END ==
PROVIDERS: PCP Family Medicine; Referring Provider Family Medicine; Visit Provider Family Medicine
DX: I48.91 Unspecified atrial fibrillation (principal)
CPT/HCPCS: 36416; 85610

== ENCOUNTER → 2020-01-06 14:37 | Outpatient (CLI) | payer MEDICARE, SELFPAY ==
[2020-01-06 18:09] LABS: Absolute Lymphocyte Count 1.68 X10^3/uL (0.83-4.51); Absolute Neutrophil Count 6.9 X10^3/uL (2.0-7.7); Basophil# 0.05 X10^3/uL; Basophil% 0.6 % (0-1); Eosinophil# 0.02 X10^3/uL; Eosinophils% 0.2 % (0-5); Hematocrit 42.6 % (37-47); Hemoglobin 13.8 g/dL (12.0-15.0); Lymphocyte # 1.68 X10^3/ul (4.0); Lymphocyte % 18.5 % (19-41); Mean Corp Hgb Conc 32.4 g/dL (32-36); Mean Corpuscular Hgb 30.7 pg (27.0-32.0); Mean Corpuscular Volume 94.9 fL (81-99); Monocyte# 0.34 X10^3/uL; Monocyte% 3.7 % (0-10); NRBC Flagged by Analyzer 0 % (0-5); Neutrophil # 6.94 X10^3/uL (2.7-7.7); Neutrophil % 76.6 % (47-70); Platelet Count 266 K/mm3 (150-450); RBC Distribution Width CV 12.5 % (11.6-14.6); RBC Distribution Width SD 43.3 fl (35.1-43.9); Red Blood Count 4.49 M/mm3 (4.2-5.4); White Blood Count 9.1 K/mm3 (4.4-11.0)
[2020-01-06 18:19] LABS: Erythrocyte Sedimentation Rate 5 mm/hr (0-30)
[2020-01-06 18:51] LABS: ALB/GLOB Ratio 0.9 RATIO (0.9-2.4); AST(SGOT) 40 U/L (15-37); Alanine Aminotransfer ALT/SGPT 38 U/L (13-56); Albumin, Serum 3.5 g/dL (3.2-5.0); Alkaline Phosphatase 65 U/L (45-117); Anion Gap 6 (5-15); BUN 12 mg/dL (7-18); BUN/Creat Ratio 15.3 RATIO (10-20); CRP < 2.90 mg/L (0.0-3.0); Calcium,Total 8.5 mg/dL (8.5-10.1); Chloride 100 mmol/L (98-107); Creatinine, Serum 0.79 mg/dL (0.55-1.02); EST Glomerular Filtration Rate 74 mL/min (>60); Est Glom Filt Rate - Afr Amer 90 mL/min (>60); Globulin 3.8 g/dL (2.2-4.2); Glucose 173 mg/dL (74-106); Potassium 3.8 mmol/L (3.5-5.1); Protein, Total 7.3 g/dL (6.4-8.2); Sodium Level 138 mmol/L (136-145)
[2020-01-07 11:56] LABS: Hepatitis B Surface Antibody Non-Reactive; Hepatitis B Surface Antigen Non-Reactive (Nonreactive); Hepatitis C Antibody Non-Reactive (Nonreactive)
[2020-01-08 15:37] LABS: ANTINUCLEAR ANTIBODIES DIRECT Negative (Negative)
[2020-01-09 07:35] LABS: CCP IgG Antibodies 4 units (0-19); Hepatitis B Core AB IgM Negative (Negative)
== END ==
PROVIDERS: PCP Family Medicine; Referring Provider Internal Medicine Rheumatology; Visit Provider Internal Medicine Rheumatology
DX: M06.4 Inflammatory polyarthropathy (principal); G56.01 Carpal tunnel syndrome, right upper limb; M79.7 Fibromyalgia; I10 Essential (primary) hypertension; I25.10 Atherosclerotic heart disease of native coronary artery without angina pectoris; J44.9 Chronic obstructive pulmonary disease, unspecified; G30.9 Alzheimer's disease, unspecified; E78.5 Hyperlipidemia, unspecified; F32.9 Major depressive disorder, single episode, unspecified; F41.9 Anxiety disorder, unspecified; Z86.711 Personal history of pulmonary embolism; Z86.79 Personal history of other diseases of the circulatory system; Z86.73 Personal history of transient ischemic attack (TIA), and cerebral infarction without residual deficits; Z85.3 Personal history of malignant neoplasm of breast
CPT/HCPCS: 36415; 80053; 85025; 85652; 86038; 86140; 86200; 86431; 86705; 86706; 86803; 87340

== ENCOUNTER → 2020-01-10 05:49 | Outpatient (CLI) | payer MEDICARE, SELFPAY ==
[2020-01-10 12:28] LABS: International Normalized Ratio 1.4; Prothrombin Time (Protime)PT. 16.9 SECONDS (11.7-14.9)
== END ==
PROVIDERS: PCP Family Medicine; Visit Provider Family Medicine
DX: I48.91 Unspecified atrial fibrillation (principal)
CPT/HCPCS: 36415; 85610

== ENCOUNTER → 2020-01-24 04:36 | Outpatient (CLI) | payer MEDICARE, SELFPAY ==
[2020-01-24 09:31] LABS: Prothrombin Time Fingerstick 18.6 SEC (11.9-14.4)
== END ==
PROVIDERS: Referring Provider Family Medicine; Visit Provider Family Medicine
DX: I48.91 Unspecified atrial fibrillation (principal)
CPT/HCPCS: 36416; 85610

== ENCOUNTER → 2020-02-04 12:25 | Outpatient (CLI) | payer MEDICARE, SELFPAY ==
[2020-02-04 13:31] LABS: Prothrombin Time Fingerstick 18.1 SEC (11.9-14.4)
== END ==
PROVIDERS: PCP Family Medicine; Visit Provider Family Medicine
DX: I48.91 Unspecified atrial fibrillation (principal)
CPT/HCPCS: 36416; 85610

== ENCOUNTER → 2020-02-08 08:11 | Outpatient (CLI) | payer MEDICARE, SELFPAY ==
--- NOTE | 2020-02-08 08:17 | US_ITS ---
STUDY: ABDOMINAL ULTRASOUND - RIGHT UPPER QUADRANT REASON FOR VISIT: Female, 84 years old. Elevated liver enzymes TECHNIQUE: Ultrasound evaluation of the right upper quadrant was performed with real-time and static gonzalez-scale imaging. TECHNICAL QUALITY: Adequate. COMPARISON: None. FINDINGS: Liver: The liver measures 17 cm. There is increased echogenicity of the liver. The bile ducts are within normal limits. There is hepatic color flow. The direction of portal flow is hepatopetal. There is no demonstrated mass lesion. Gallbladder: Removed. Common Bile Duct (C.B.D.): The common bile duct measures 6 mm. Pancreas: Has increased echogenicity Right Kidney: Normal size of the right kidney. The right kidney measures 11.2 x 5.6 x 4.7 cm. Normal renal cortex. The right cortex measures 1.4 cm. There is no demonstrated renal mass or cyst. There is no right hydronephrosis. US/Abdomen Limited IMPRESSION: Hepatomegaly and steatosis. 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 Refer to definitive imaging of the abdomen with CT or MR. Electronically Signed: Nae Campbell, at 17:46 EDT Tel , Service support ,
== END ==
PROVIDERS: PCP Family Medicine; Referring Provider Internal Medicine Rheumatology; Visit Provider Internal Medicine Rheumatology
DX: M05.79 Rheumatoid arthritis with rheumatoid factor of multiple sites without organ or systems involvement (principal); G56.01 Carpal tunnel syndrome, right upper limb; M79.7 Fibromyalgia; I10 Essential (primary) hypertension; I25.10 Atherosclerotic heart disease of native coronary artery without angina pectoris; J44.9 Chronic obstructive pulmonary disease, unspecified; G30.9 Alzheimer's disease, unspecified; E78.5 Hyperlipidemia, unspecified; F32.9 Major depressive disorder, single episode, unspecified; F41.9 Anxiety disorder, unspecified; Z86.711 Personal history of pulmonary embolism; Z95.1 Presence of aortocoronary bypass graft
CPT/HCPCS: 76705

== ENCOUNTER → 2020-02-12 07:24 | Outpatient (CLI) | payer MEDICARE, SELFPAY ==
[2020-02-12 09:56] LABS: Prothrombin Time Fingerstick 20.9 SEC (11.9-14.4)
== END ==
PROVIDERS: PCP Family Medicine; Referring Provider Family Medicine; Visit Provider Family Medicine
DX: I48.91 Unspecified atrial fibrillation (principal)
CPT/HCPCS: 36416; 85610

== ENCOUNTER → 2020-02-19 11:25 | Outpatient (CLI) | payer MEDICARE, SELFPAY ==
[2020-02-19 12:20] LABS: Prothrombin Time Fingerstick 30.4 SEC (11.9-14.4)
== END ==
PROVIDERS: PCP Family Medicine; Visit Provider Family Medicine
DX: I48.91 Unspecified atrial fibrillation (principal)
CPT/HCPCS: 36416; 85610

== ENCOUNTER → 2020-03-04 08:47 | Outpatient (CLI) | payer MEDICARE, SELFPAY ==
[2020-03-04 10:31] LABS: Prothrombin Time Fingerstick 18.5 SEC (11.9-14.4)
== END ==
PROVIDERS: PCP Family Medicine; Visit Provider Family Medicine
DX: I48.91 Unspecified atrial fibrillation (principal)
CPT/HCPCS: 36416; 85610

== ENCOUNTER → 2020-03-18 09:09 | Outpatient (CLI) | payer MEDICARE, SELFPAY | PROVIDERS: PCP Family Medicine; Referring Provider Family Medicine; Visit Provider Family Medicine | DX: I48.91 Unspecified atrial fibrillation (principal) | CPT/HCPCS: 36416; 85610 ==

== ENCOUNTER → 2020-03-30 15:00 | Outpatient (CLI) | payer MEDICARE, SELFPAY ==
[2020-03-30 15:58] LABS: Absolute Lymphocyte Count 2.56 X10^3/uL (0.83-4.51); Absolute Neutrophil Count 3.6 X10^3/uL (2.0-7.7); Basophil# 0.07 X10^3/uL; Eosinophil# 0.37 X10^3/uL; Eosinophils% 5.1 % (0-5); Hemoglobin 13.8 g/dL (12.0-15.0); Lymphocyte # 2.56 X10^3/ul (4.0); Lymphocyte % 35.4 % (19-41); Mean Corp Hgb Conc 32.1 g/dL (32-36); Mean Corpuscular Hgb 30.5 pg (27.0-32.0); Mean Corpuscular Volume 94.9 fL (81-99); Mean Platelet Vol. 10.7 fl (6.2-12.0); Monocyte# 0.61 X10^3/uL; Monocyte% 8.4 % (0-10); NRBC Flagged by Analyzer 0 % (0-5); Neutrophil # 3.61 X10^3/uL (2.7-7.7); Platelet Count 254 K/mm3 (150-450); RBC Distribution Width CV 12.5 % (11.6-14.6); RBC Distribution Width SD 43.7 fl (35.1-43.9); Red Blood Count 4.53 M/mm3 (4.2-5.4); White Blood Count 7.2 K/mm3 (4.4-11.0)
[2020-03-30 16:27] LABS: ALB/GLOB Ratio 0.9 RATIO (0.9-2.4); AST(SGOT) 28 U/L (15-37); Alanine Aminotransfer ALT/SGPT 28 U/L (13-56); Albumin, Serum 3.4 g/dL (3.2-5.0); Alkaline Phosphatase 70 U/L (45-117); Anion Gap 4 (5-15); BUN 10 mg/dL (7-18); BUN/Creat Ratio 13.9 RATIO (10-20); Calcium,Total 8.5 mg/dL (8.5-10.1); Chloride 101 mmol/L (98-107); Creatinine, Serum 0.72 mg/dL (0.55-1.02); EST Glomerular Filtration Rate 83 mL/min (>60); Est Glom Filt Rate - Afr Amer 100 mL/min (>60); Globulin 3.9 g/dL (2.2-4.2); Glucose 102 mg/dL (74-106); Potassium 3.9 mmol/L (3.5-5.1); Protein, Total 7.3 g/dL (6.4-8.2); Sodium Level 139 mmol/L (136-145)
== END ==
PROVIDERS: PCP Family Medicine; Referring Provider Internal Medicine Rheumatology; Visit Provider Internal Medicine Rheumatology
DX: M05.79 Rheumatoid arthritis with rheumatoid factor of multiple sites without organ or systems involvement (principal); G56.01 Carpal tunnel syndrome, right upper limb; M79.7 Fibromyalgia; I10 Essential (primary) hypertension; I25.10 Atherosclerotic heart disease of native coronary artery without angina pectoris; J44.9 Chronic obstructive pulmonary disease, unspecified; Z95.1 Presence of aortocoronary bypass graft
CPT/HCPCS: 36415; 80053; 85025

== ENCOUNTER → 2020-04-08 07:19 | Outpatient (CLI) | payer MEDICARE, SELFPAY ==
[2020-04-08 11:00] LABS: Prothrombin Time Fingerstick 30.5 SEC (11.9-14.4)
== END ==
PROVIDERS: PCP Family Medicine; Referring Provider Family Medicine; Visit Provider Family Medicine
DX: I48.91 Unspecified atrial fibrillation (principal)
CPT/HCPCS: 36416; 85610

== ENCOUNTER 2020-04-26 17:11 | Emergency (ER) | payer MEDICARE, SELFPAY ==
[2020-04-26 17:12] VITALS: BP 158/111; PULSE 78; RESP 18; TEMP 36.1; O2SAT 96; BMI 33.2
[2020-04-26 17:44] LABS: International Normalized Ratio 3.3; Prothrombin Time (Protime)PT. 33.1 SECONDS (11.7-14.9)
--- NOTE | 2020-04-26 18:02 | ED.DCSUM_ITS ---
- ER Visit Summary Date of Service: 04/26/20 Chief Complaint: Nosebleed History of Present Illness: The patient is a [address] Joao Rehman and Dr. Obie Guevara. She reports that she is on Coumadin for a DVT. States that she woke up in the middle of the night and her nose was bleeding. She was able to get it to stop, but then it began bleeding again at 6:00 this morning. Denies any recent injury to her nose. She reports she does have sinus congestion. She has never had anything like this before. Physical Examination: Vitals: Stable. Afebrile. General: Well-nourished and well-developed. Head: Normocephalic atraumatic. HEENT: There is excoriation to the right side of her anterior nasal septum. There is no culprit vessel that is bleeding. There is no active bleeding. There is no blood in the oropharynx. Neck: Supple, no lymphadenopathy. No JVD. Nontender. Cardiovascular: Regular rate and rhythm. 3-6 systolic murmur. Respiratory: No respiratory distress. Clear to auscultation bilaterally. Abdominal: Soft, nontender, nondistended, normal bowel sounds. No guarding, rebound, or peritoneal signs. Back: Nontender. Extremities: Nontender, no edema. Skin: Normal color, no rash. Neurologic: Alert and oriented ?3. Cranial nerves II through XII are intact. Normal strength and sensation. Psych: Normal affect. Test Results: INR is 3.3. Emergency Department Course and Treatment: Patient had a Coagit NP7 placed in her right nares. She has had no further bleeding. She is able to ambulate about the emergency department out bleeding. She was given Keflex p.o. Treatment Plan: Patient will be discharged instructions to follow-up with Dr. Guevara in 3 to 5 days. She is instructed to hold her Coumadin for the next 2 days and get her INR checked and speak with Dr. Rehman about further dosing of her Coumadin. She will be discharged on Keflex to prevent sinusitis. Return to the emergency department for any worsening symptoms. Disposition: To home in improved and stable condition. Impression: 1. Epistaxis on right. 2. Supratherapeutic INR. This note was generated with [employer] software. It may contain incorrect words, spelling, and punctuation that were not noted in review of the chart prior to signing ED Disposition - Plan for ED Patient: Instructions: Nosebleed Prescriptions: Cephalexin [Keflex] 500 mg PO TID #21 cap Prescription Printed Referrals: Hugo Cespedes MD [STAFF PHYSICIAN] - 3-5 Days Additional Instructions: Hold your Coumadin for the next 2 days and then get your level checked again and speak with Dr. Ochoa about further dosing of your Coumadin.
[2020-04-26] MEDS: Cephalexin 500 MG Capsule PO (18:25)
== END 2020-04-26 18:46 | disposition home or self-care (01) ==
PROVIDERS: Emergency Provider Emergency Medicine; PCP Family Medicine
DX: R04.0 Epistaxis (principal); R79.1 Abnormal coagulation profile; I25.10 Atherosclerotic heart disease of native coronary artery without angina pectoris; Z79.01 Long term (current) use of anticoagulants
CPT/HCPCS: 85610; 99282

== ENCOUNTER → 2020-05-06 06:01 | Outpatient (CLI) | payer MEDICARE, SELFPAY ==
[2020-04-26 17:12] VITALS: BMI 33.2
[2020-05-06 11:21] LABS: Prothrombin Time Fingerstick 23.6 SEC (11.9-14.4)
== END ==
PROVIDERS: PCP Family Medicine; Visit Provider Family Medicine
DX: I48.91 Unspecified atrial fibrillation (principal)
CPT/HCPCS: 36416; 85610

== ENCOUNTER → 2020-05-20 08:50 | Outpatient (CLI) | payer MEDICARE, SELFPAY ==
[2020-04-26 17:12] VITALS: BMI 33.2
[2020-05-20 10:20] LABS: Prothrombin Time Fingerstick 30.7 SEC (11.9-14.4)
== END ==
PROVIDERS: PCP Family Medicine; Referring Provider Family Medicine; Visit Provider Family Medicine
DX: I48.91 Unspecified atrial fibrillation (principal)
CPT/HCPCS: 36416; 85610

== ENCOUNTER → 2020-06-10 08:55 | Outpatient (CLI) | payer MEDICARE, SELFPAY ==
[2020-06-10 11:11] LABS: Prothrombin Time Fingerstick 21.9 SEC (11.9-14.4)
== END ==
PROVIDERS: PCP Family Medicine; Visit Provider Family Medicine
DX: I48.91 Unspecified atrial fibrillation (principal)
CPT/HCPCS: 36416; 85610

== ENCOUNTER → 2020-06-26 10:57 | Outpatient (CLI) | payer MEDICARE, SELFPAY ==
[2020-06-26 11:40] LABS: Prothrombin Time Fingerstick 21.9 SEC (11.9-14.4)
== END ==
PROVIDERS: PCP Family Medicine; Visit Provider Family Medicine
DX: I48.91 Unspecified atrial fibrillation (principal)
CPT/HCPCS: 36416; 85610

== ENCOUNTER → 2020-07-24 04:48 | Outpatient (CLI) | payer MEDICARE, SELFPAY ==
[2020-07-24 10:06] LABS: Prothrombin Time Fingerstick 22.5 SEC (11.9-14.4)
--- NOTE | 2020-07-24 15:19 | RAD_ITS ---
STUDY: X-RAY CHEST REASON FOR EXAM: Female, 85 years old. SOB TECHNIQUE: Frontal and lateral views of the chest COMPARISON: 12 April 2019 FINDINGS: Lungs are mildly hyperinflated. There is no pneumothorax, pulmonary edema or focal opacities. Interstitial markings are mildly increased in visibility, likely mild chronic interstitial disease such as related to emphysema or scarring. There is mild cardiomegaly with prior open heart surgery and sternotomy. The skeleton is osteoporotic. There is no gas under the diaphragms. Appearance is stable since prior. RAD/Chest PA and Lateral IMPRESSION: 1. No acute findings or change since prior. 2. Prior open heart surgery. Electronically Signed: Nae Campbell MD at 21:35 EST Tel , Service support ,
[2020-07-24 17:27] LABS: Hematocrit 44.3 % (37-47); Mean Corp Hgb Conc 31.6 g/dL (32-36); Mean Corpuscular Hgb 29.5 pg (27.0-32.0); Mean Corpuscular Volume 93.5 fL (81-99); Mean Platelet Vol. 10.7 fl (6.2-12.0); Platelet Count 267 K/mm3 (150-450); RBC Distribution Width CV 12.1 % (11.6-14.6); RBC Distribution Width SD 41.9 fl (35.1-43.9); Red Blood Count 4.74 M/mm3 (4.2-5.4); White Blood Count 8.1 K/mm3 (4.4-11.0)
[2020-07-24 17:42] LABS: Anion Gap 6 (5-15); BUN 12 mg/dL (7-18); BUN/Creat Ratio 15.3 RATIO (10-20); Chloride 101 mmol/L (98-107); Creatinine, Serum 0.78 mg/dL (0.55-1.02); EST Glomerular Filtration Rate 75 mL/min (>60); Est Glom Filt Rate - Afr Amer 90 mL/min (>60); Glucose 113 mg/dL (74-106); Potassium 3.9 mmol/L (3.5-5.1); Sodium Level 140 mmol/L (136-145)
[2020-07-24 18:16] LABS: BNP,B-Type NATRIURETIC PEPTIDE 322.8 pg/mL (0-100)
== END ==
PROVIDERS: PCP Family Medicine; Referring Provider Family Medicine; Visit Provider Family Medicine
DX: I48.91 Unspecified atrial fibrillation (principal); R06.02 Shortness of breath
CPT/HCPCS: 36415; 36416; 71046; 80048; 83880; 85027; 85610

== ENCOUNTER → 2020-07-31 13:53 | Outpatient (CLI) | payer MEDICARE, SELFPAY ==
--- NOTE | 2020-07-31 13:55 | ECHOCS_ITS ---
Reason For Study: CHF Procedure This was a 2D Doppler, Color Flow transthoracic echocardiogram. The study was technically difficult. Due to body habitus. Contrast injection was performed. Left Ventricle Normal LV size. Left ventricular systolic function is normal. The estimated ejection fraction is 65 %. Post operative septal motion. There is evidence of diastolic dysfunction. No regional wall motion abnormalities noted. Right Ventricle Normal RV size. Normal systolic function. Atria The left atrium is moderately enlarged. Normal right atrium. No doppler evidence for ASD. Mitral Valve There is moderate mitral annular calcification. Extension of the mitral annular calcification on the base of the posterior mitral valve leaflet. Mild (1+) mitral valve insufficiency. Tricuspid Valve Normal tricuspid valve. Moderate (2+) tricuspid valve insufficiency. Right ventricular systolic pressure estimated to be 32 mmHg. Aortic Valve Trisinus/trileaflet aortic valve. Mild diffuse aortic valve thickening. Moderate diffuse aortic valve calcification. Mild aortic stenosis. Mild (1+) aortic valve insufficiency. Pulmonic Valve The pulmonic valve is not well visualized. Great Vessels Normal sized aortic root. Calcified aortic root. Pericardium/Pleural No pericardial effusion. Medication 22 gauge I.V. with prn adaptor inserted into right arm. Diluted definity 2.0ml given slow IV push to enhance endocardial definition. MMode/2D Measurements & Calculations LVIDd: 4.4 cm IVSd: 1.2 cm LVOT diam: 2.2 cm LVIDs: 2.5 cm LVPWd: 1.2 cm RVDd: 3.0 cm FS: 43.2 % LVOT area: 3.7 cm2 Ao root diam: 3.2 cm LAV(MOD-bp): 67.4 ml LA A4 area: 20.4 cm2 LAV(MOD-bp) Indexed: 37.5 ml/m2 LAV(MOD-sp2): 70.7 ml LAV(MOD-sp4): 62.1 ml LA dimension(2D): 3.8 cm RA A4 area: 16.6 cm2 Time Measurements MV dec time: 0.30 sec Doppler Measurements & Calculations MV E max rizwan: 76.0 cm/sec Lat Peak E' Rizwan: 6.8 cm/sec Med Peak E' Rizwan: 4.7 cm/sec MV A max rizwan: 96.3 cm/sec E/E' lat: 11.2 E/E' med: 16.1 MV E/A: 0.79 Ao V2 max: 246.1 cm/sec LV V1 max: 91.5 cm/sec SV(LVOT): 74.3 ml Ao max P.2 mmHg LV V1 max P.4 mmHg Ao V2 mean: 179.8 cm/sec LV V1 mean P.7 mmHg Ao mean P.2 mmHg LV V1 mean: 61.1 cm/sec Ao V2 VTI: 53.1 cm LV V1 VTI: 20.1 cm YAW(I,D): 1.4 cm2 YAW(V,D): 1.4 cm2 PA V2 max: 85.4 cm/sec PI dec slope: 146.5 cm/sec2 TR max rizwan: 267.5 cm/sec TR max P.6 mmHg Interpretation Summary The study was technically difficult. Contrast injection was performed. Left ventricular systolic function is normal. The estimated ejection fraction is 65 %. Post operative septal motion. The left atrium is moderately enlarged. There is moderate mitral annular calcification. Extension of the mitral annular calcification on the base of the posterior mitral valve leaflet. Mild (1+) mitral valve insufficiency. Moderate (2+) tricuspid valve insufficiency. Mild aortic stenosis. Mild (1+) aortic valve insufficiency. Calcified aortic root. Right ventricular systolic pressure estimated to be 32 mmHg. There is evidence of diastolic dysfunction. Ordering Physician: Joao Simon Referring Physician: Joao Simon Performed By: Amanda Keene, RDCS, RVT
== END ==
PROVIDERS: PCP Family Medicine; Referring Provider Family Medicine; Visit Provider Family Medicine
DX: I25.10 Atherosclerotic heart disease of native coronary artery without angina pectoris (principal); I50.9 Heart failure, unspecified
CPT/HCPCS: 93306; Q9957; A4216; C8929

== ENCOUNTER → 2020-08-21 09:41 | Outpatient (CLI) | payer MEDICARE, SELFPAY ==
[2020-08-21 11:10] LABS: INR Fingerstick 1.6; Prothrombin Time Fingerstick 18.7 SEC (11.9-14.4)
== END ==
PROVIDERS: PCP Family Medicine; Visit Provider Family Medicine
DX: I48.91 Unspecified atrial fibrillation (principal)
CPT/HCPCS: 36416; 85610

== ENCOUNTER → 2020-08-31 09:01 | Outpatient (CLI) | payer MEDICARE, SELFPAY ==
[2020-08-31 10:16] LABS: INR Fingerstick 1.7; Prothrombin Time Fingerstick 20.1 SEC (11.9-14.4)
== END ==
PROVIDERS: PCP Family Medicine; Referring Provider Family Medicine; Visit Provider Family Medicine
DX: I48.91 Unspecified atrial fibrillation (principal)
CPT/HCPCS: 36416; 85610

== ENCOUNTER → 2020-09-16 09:35 | Outpatient (CLI) | payer MEDICARE, SELFPAY ==
[2020-09-16 11:11] LABS: INR Fingerstick 2.6; Prothrombin Time Fingerstick 28.6 SEC (11.9-14.4)
== END ==
PROVIDERS: PCP Family Medicine; Referring Provider Family Medicine; Visit Provider Family Medicine
DX: I48.91 Unspecified atrial fibrillation (principal)
CPT/HCPCS: 36416; 85610

== ENCOUNTER → 2020-10-05 12:13 | Outpatient (CLI) | payer MEDICARE, SELFPAY ==
--- NOTE | 2020-10-05 12:18 | EKG12_ITS ---
Test Reason : PRE OP Blood Pressure : / mmHG Vent. Rate : 063 BPM Atrial Rate : 063 BPM P-R Int : 160 ms QRS Dur : 132 ms QT Int : 454 ms P-R-T Axes : 061 036 027 degrees QTc Int : 464 ms Normal sinus rhythm Non-specific intra-ventricular conduction block Abnormal ECG Confirmed by CALLI HOLLAND, LUCILA ([id number]), newspaper editor DELISA MAYA ([id number]) on 10/06/2020 8:35:53 AM Referred By: Jose Milner Confirmed By:LUCILA MCCURDY MD
[2020-10-05 13:01] LABS: Hematocrit 42.6 % (37-47); Hemoglobin 13.5 g/dL (12.0-15.0); Mean Corp Hgb Conc 31.7 g/dL (32-36); Mean Corpuscular Hgb 29.4 pg (27.0-32.0); Mean Corpuscular Volume 92.8 fL (81-99); Mean Platelet Vol. 10.2 fl (6.2-12.0); Platelet Count 245 K/mm3 (150-450); RBC Distribution Width CV 12.3 % (11.6-14.6); Red Blood Count 4.59 M/mm3 (4.2-5.4); White Blood Count 8.7 K/mm3 (4.4-11.0)
[2020-10-05 14:20] LABS: Anion Gap 4 (5-15); BUN 9 mg/dL (7-18); Calcium,Total 8.9 mg/dL (8.5-10.1); Chloride 103 mmol/L (98-107); Creatinine, Serum 0.75 mg/dL (0.55-1.02); EST Glomerular Filtration Rate 78 mL/min (>60); Est Glom Filt Rate - Afr Amer 95 mL/min (>60); Glucose 92 mg/dL (74-106); Potassium 4.1 mmol/L (3.5-5.1); Sodium Level 139 mmol/L (136-145)
== END ==
PROVIDERS: PCP Family Medicine; Referring Provider Physician Assistant; Visit Provider Physician Assistant
DX: Z01.818 Encounter for other preprocedural examination (principal)
CPT/HCPCS: 36415; 80048; 85027; 93005

== ENCOUNTER → 2020-10-07 05:06 | Outpatient (CLI) | payer MEDICARE, SELFPAY ==
[2020-10-07 08:30] LABS: INR Fingerstick 1.1; Prothrombin Time Fingerstick 13.3 SEC (11.9-14.4)
== END ==
PROVIDERS: PCP Family Medicine; Visit Provider Orthopaedic Surgery
DX: Z01.818 Encounter for other preprocedural examination (principal); I48.91 Unspecified atrial fibrillation
CPT/HCPCS: 36416; 85610

== ENCOUNTER → 2020-10-13 09:09 | Outpatient (CLI) | payer MEDICARE, SELFPAY ==
[2020-10-13 11:45] LABS: International Normalized Ratio 1.7; Prothrombin Time (Protime)PT. 19.6 SECONDS (11.7-14.9)
== END ==
PROVIDERS: PCP Family Medicine; Referring Provider Family Medicine; Visit Provider Family Medicine
DX: I48.91 Unspecified atrial fibrillation (principal)
CPT/HCPCS: 36415; 85610

== ENCOUNTER → 2020-10-21 09:46 | Outpatient (CLI) | payer MEDICARE, SELFPAY ==
[2020-10-21 10:41] LABS: INR Fingerstick 2.3; Prothrombin Time Fingerstick 26.1 SEC (11.9-14.4)
== END ==
PROVIDERS: PCP Family Medicine; Visit Provider Family Medicine
DX: I48.91 Unspecified atrial fibrillation (principal)
CPT/HCPCS: 36416; 85610

== ENCOUNTER → 2020-11-18 16:47 | Outpatient (CLI) | payer MEDICARE, SELFPAY ==
[2020-11-18 17:54] LABS: Absolute Lymphocyte Count 2.36 X10^3/uL (0.83-4.51); Absolute Neutrophil Count 4.3 X10^3/uL (2.0-7.7); Basophil# 0.05 X10^3/uL; Basophil% 0.7 % (0-1); Eosinophil# 0.29 X10^3/uL; Eosinophils% 3.8 % (0-5); Hematocrit 42.3 % (37-47); Hemoglobin 13.8 g/dL (12.0-15.0); Lymphocyte # 2.36 X10^3/ul (0.83-4.51); Lymphocyte % 31.2 % (19-41); Mean Corp Hgb Conc 32.6 g/dL (32-36); Mean Corpuscular Hgb 30.3 pg (27.0-32.0); Mean Corpuscular Volume 92.8 fL (81-99); Mean Platelet Vol. 10.6 fl (6.2-12.0); Monocyte# 0.58 X10^3/uL; Monocyte% 7.7 % (0-10); NRBC Flagged by Analyzer 0 % (0-5); Neutrophil # 4.25 X10^3/uL (2.7-7.7); Neutrophil % 56.2 % (47-70); Platelet Count 241 K/mm3 (150-450); RBC Distribution Width CV 12.5 % (11.6-14.6); RBC Distribution Width SD 42.6 fl (35.1-43.9); Red Blood Count 4.56 M/mm3 (4.2-5.4); White Blood Count 7.6 K/mm3 (4.4-11.0)
[2020-11-18 18:35] LABS: Anion Gap 5 (5-15); BUN 11 mg/dL (7-18); BUN/Creat Ratio 14.3 RATIO (10-20); Calcium,Total 8.8 mg/dL (8.5-10.1); Chloride 102 mmol/L (98-107); Cholesterol 143 mg/dL (200); Creatinine, Serum 0.77 mg/dL (0.55-1.02); EST Glomerular Filtration Rate 76 mL/min (>60); Est Glom Filt Rate - Afr Amer 92 mL/min (>60); Glucose 118 mg/dL (74-106); High Density Lipoprotein 42 mg/dL; Potassium 3.7 mmol/L (3.5-5.1); Sodium Level 140 mmol/L (136-145); Triglycerides 148 mg/dL; Very Low Density Lipoprotein 30 mg/dL (5-40)
== END ==
PROVIDERS: PCP Family Medicine; Referring Provider Family Medicine; Visit Provider Family Medicine
DX: I10 Essential (primary) hypertension (principal)
CPT/HCPCS: 36415; 80048; 80061; 85025

== ENCOUNTER → 2020-11-26 09:03 | Outpatient (CLI) | payer MEDICARE, SELFPAY ==
[2020-11-26 11:51] LABS: INR Fingerstick 2.5; Prothrombin Time Fingerstick 28.3 SEC (11.9-14.4)
== END ==
PROVIDERS: PCP Family Medicine; Visit Provider Family Medicine
DX: I48.91 Unspecified atrial fibrillation (principal)
CPT/HCPCS: 36416; 85610

== ENCOUNTER → 2020-12-25 04:20 | Outpatient (CLI) | payer MEDICARE, SELFPAY ==
[2020-12-25 09:41] LABS: Prothrombin Time Fingerstick 22.8 SEC (11.9-14.4)
== END ==
PROVIDERS: PCP Family Medicine; Referring Provider Family Medicine; Visit Provider Family Medicine
DX: I48.91 Unspecified atrial fibrillation (principal)
CPT/HCPCS: 36416; 85610

== ENCOUNTER → 2021-01-20 11:37 | Outpatient (CLI) | payer MEDICARE, SELFPAY ==
[2021-01-20 14:51] LABS: Basophil# 0.07 X10^3/uL; Basophil% 0.8 % (0-1); Eosinophil# 0.19 X10^3/uL; Eosinophils% 2.3 % (0-5); Hematocrit 44.3 % (37-47); Hemoglobin 14.6 g/dL (12.0-15.0); Mean Corpuscular Hgb 30.4 pg (27.0-32.0); Mean Corpuscular Volume 92.3 fL (81-99); Mean Platelet Vol. 10.9 fl (6.2-12.0); Monocyte# 0.56 X10^3/uL; Monocyte% 6.8 % (0-10); NRBC Flagged by Analyzer 0 % (0-5); Neutrophil # 5.03 X10^3/uL (2.7-7.7); Neutrophil % 60.9 % (47-70); Platelet Count 265 K/mm3 (150-450); RBC Distribution Width CV 12.1 % (11.6-14.6); RBC Distribution Width SD 41.3 fl (35.1-43.9); White Blood Count 8.3 K/mm3 (4.4-11.0)
[2021-01-20 15:02] LABS: International Normalized Ratio 2.2; Prothrombin Time (Protime)PT. 23.9 SECONDS (11.7-14.9)
[2021-01-20 15:06] LABS: Anion Gap 5 (5-15); BUN 9 mg/dL (7-18); BUN/Creat Ratio 12.9 RATIO (10-20); Calcium,Total 8.7 mg/dL (8.5-10.1); Chloride 103 mmol/L (98-107); EST Glomerular Filtration Rate 85 mL/min (>60); Est Glom Filt Rate - Afr Amer 103 mL/min (>60); Glucose 108 mg/dL (74-106); Sodium Level 138 mmol/L (136-145)
== END ==
PROVIDERS: PCP Family Medicine; Referring Provider Family Medicine; Visit Provider Family Medicine
DX: R06.02 Shortness of breath (principal); I48.91 Unspecified atrial fibrillation; I10 Essential (primary) hypertension
CPT/HCPCS: 36415; 80048; 85025; 85610

== ENCOUNTER → 2021-02-17 08:08 | Outpatient (CLI) | payer MEDICARE, SELFPAY ==
[2021-02-17 10:50] LABS: Prothrombin Time Fingerstick 23.1 SEC (11.9-14.4)
== END ==
PROVIDERS: PCP Family Medicine; Visit Provider Family Medicine
DX: I48.91 Unspecified atrial fibrillation (principal)
CPT/HCPCS: 36416; 85610

== ENCOUNTER → 2021-03-17 09:22 | Outpatient (CLI) | payer MEDICARE, SELFPAY ==
[2021-03-17 10:51] LABS: INR Fingerstick 2.2; Prothrombin Time Fingerstick 25.1 SEC (11.9-14.4)
== END ==
PROVIDERS: PCP Family Medicine; Visit Provider Family Medicine
DX: I48.91 Unspecified atrial fibrillation (principal)
CPT/HCPCS: 36416; 85610

== ENCOUNTER → 2021-04-14 08:41 | Outpatient (CLI) | payer MEDICARE, SELFPAY ==
[2021-04-14 10:18] LABS: International Normalized Ratio 1.9; Prothrombin Time (Protime)PT. 21.1 SECONDS (11.7-14.9)
[2021-04-14 10:47] LABS: Anion Gap 5 (5-15); BUN 13 mg/dL (7-18); BUN/Creat Ratio 18.1 RATIO (10-20); Calcium,Total 8.8 mg/dL (8.5-10.1); Chloride 105 mmol/L (98-107); Creatinine, Serum 0.72 mg/dL (0.55-1.02); EST Glomerular Filtration Rate 82 mL/min (>60); Est Glom Filt Rate - Afr Amer 99 mL/min (>60); Glucose 124 mg/dL (74-106); Potassium 4.1 mmol/L (3.5-5.1); Sodium Level 140 mmol/L (136-145)
== END ==
PROVIDERS: PCP Family Medicine; Referring Provider Family Medicine; Visit Provider Family Medicine
DX: I48.91 Unspecified atrial fibrillation (principal)
CPT/HCPCS: 36415; 80048; 85610

== ENCOUNTER → 2021-05-12 04:23 | Outpatient (CLI) | payer MEDICARE, SELFPAY ==
[2021-05-12 10:31] LABS: INR Fingerstick 1.9
== END ==
PROVIDERS: PCP Family Medicine; Referring Provider Family Medicine; Visit Provider Family Medicine
DX: I48.91 Unspecified atrial fibrillation (principal)
CPT/HCPCS: 36416; 85610

== ENCOUNTER 2021-06-10 08:17 | Outpatient (CLI) | payer MEDICARE, SELFPAY ==
[2021-06-10 11:00] LABS: Prothrombin Time Fingerstick 22.8 SEC (11.9-14.4)
== END 2021-06-10 23:59 | disposition short-term general hospital (02) ==
LOC: LAB 08:18
PROVIDERS: Visit Provider Family Medicine
DX: I48.91 Unspecified atrial fibrillation (principal)
CPT/HCPCS: 36416; 85610

== ENCOUNTER 2021-06-17 09:40 | Observation (INO) | payer MEDICARE, SELFPAY ==
[2021-06-17 09:41] VITALS: BP 162/99; BP 171/113; PULSE 62; RESP 19; TEMP 36.6; O2SAT 96; BMI 33.8
--- NOTE | 2021-06-17 10:08 | CT_ITS ---
STUDY: CT BRAIN WITHOUT CONTRAST REASON FOR EXAM: Female, 85 years old. Headache, mental status change RADIATION DOSAGE (If Supplied By Facility): CTDIvol = ( 34.38 ) mGy, DLP = ( 1280.07 ) mGycm TECHNIQUE: Transaxial CT imaging of the brain was performed without administration of intravenous contrast material. Individualized dose optimization techniques were used for this CT. COMPARISON: 2018 FINDINGS: Normal soft tissue structures. Normal calvarium. There is mild cerebral atrophy with widening of the extra-axial spaces and ventricular dilatation. There are areas of decreased attenuation within the white matter tracts of the supratentorial brain, consistent with microvascular disease changes. Normal basal ganglia and thalami. Normal brainstem. Normal cerebellum. There is no intracranial hemorrhage. There are no findings of an acute ischemic infarction. Normal visualized paranasal sinuses. CT/Brain/Head without Contrast IMPRESSION: Chronic involutional changes of the brain. No acute hemorrhage or significant interval change Electronically Signed: Von Rivers MD at 11:01 EST , Service support ,
--- NOTE | 2021-06-17 10:08 | CT_ITS ---
STUDY: CT CERVICAL SPINE WITHOUT CONTRAST REASON FOR EXAM: Female, 85 years old. Headache after fall RADIATION DOSAGE (If Supplied By Facility): CTDIvol = ( 34.38 ) mGy, DLP = ( 1280.07 ) mGycm TECHNIQUE: High resolution transaxial imaging was performed without contrast material. Sagittal and coronal images were reconstructed. Individualized dose optimization techniques were used for this CT. COMPARISON: None FINDINGS: Normal craniovertebral junction. There are degenerative changes of the anterior atlantoaxial articulation. Normal odontoid process. There is straightening of the normal cervical lordosis. Bones are demineralized. There is anatomic alignment of the cervical spine. No demonstrated fracture. Intervertebral disc space narrowing throughout the C-spine. No central canal stenosis, there is bilateral foraminal narrowing throughout the C-spine due to degenerative changes. Soft tissues show normal-appearing thyroid. Dense calcifications are noted in the carotid artery bulbs. No airway narrowing or deviation or suspicious adenopathy. CT/Spine Cervical without Contras IMPRESSION: Multilevel degenerative changes, as described above. Electronically Signed: Von Rivers MD at 11:07 EST , Service support ,
--- NOTE | 2021-06-17 10:08 | RAD_ITS ---
STUDY: X-RAY - PELVIS AND LEFT HIP REASON FOR EXAM: Female, 85 years old. Left hip pain, stiffness TECHNIQUE: 3 views of the pelvis and hip. COMPARISON: None. FINDINGS: There is a non-specific bowel gas pattern. Normal visualized soft tissue structures. There is diffuse demineralization of the osseous structures. There is narrowing with cortical sclerosis and osteophyte formation of the sacroiliac joint consistent with degenerative osteoarthritic changes. Normal bilateral superior and inferior pubic rami. Normal pubic symphysis. Normal bilateral ischial tuberosities. Normal visualized femoral head. Normal acetabulum. There is moderate articular joint space narrowing of the hip. RAD/HIP, UNI W/ Pelvis 2-3 Views IMPRESSION: Age consistent hip and SI joint arthrosis. No demonstrated fracture or suspicious osseous lesion. However, hip and pelvic fractures in patients of this age can be subtle, if there is strong clinical suspicion of a fracture, recommend further evaluation with cross-sectional imaging Electronically Signed: Von Rivers MD at 11:08 EST , Service support ,
--- NOTE | 2021-06-17 10:08 | RAD_ITS ---
STUDY: X-RAY - LEFT SHOULDER REASON FOR EXAM: Female, 85 years old. Pain and stiffness TECHNIQUE: 4 view(s) of the shoulder. COMPARISON: None. FINDINGS: There is moderate degenerative arthrosis of the glenohumeral articulation. There has been previous resection of the distal clavicle. Normal acromion. There is demineralization of the humerus and visualized osseous structures. The soft tissue structures are unremarkable. Normal visualized pulmonary apex. RAD/Shoulder min 2 Views IMPRESSION: Moderate glenohumeral arthrosis There is been previous resection of the distal clavicle, AC joint cannot be accurately assessed No upper rib fracture or pneumothorax Electronically Signed: Von Rivers MD at 11:10 EST , Service support ,
--- NOTE | 2021-06-17 10:11 | EDS_ITS ---
HPI HPI - Fall History of Present Illness Chief Complaint: Fall Narrative Narrative: Patient with chronically unsteady gait presents for evaluation after a fall today. She states she was walking without her walker which she normally uses for unsteadiness and fell. She states she fell hitting her head on a plastic trash can. She did not lose consciousness. She has no visual changes, nausea, vomiting, headache. She sustained no lacerations or abrasions to the head. Patient states that as she fell she landed on her left shoulder and her left hip. She states she was in too much pain to get up on her own. She complains of left shoulder pain and difficulty moving the left shoulder. Patient states that her left hip was more painful but now feels okay. Patient is on Coumadin for history of blood clots and atrial fibrillation she reports. [facility] Medical History Atrial fibrillation Atrial fibrillation with RVR Bilateral breast cancer Coronary artery disease Depression Diarrhea Hypertension Hypotension Non-ST elevation HI (NSTEMI) Restrictive airway disease Home Medications furosemide 20 mg PO DAILY 04/20/13 [History Last Taken Unknown] trazodone 100 mg PO QHS 04/20/13 [History Last Taken 10/01/16] warfarin 4 mg PO DAILY 04/20/13 [History Last Taken 09/30/16] atorvastatin 40 mg PO QHS 10/01/16 [History Last Taken Unknown] metoprolol tartrate 100 mg PO BID 07/31/17 [History Last Taken Unknown] fluticasone furoate 50 mcg IH DAILY 02/14/19 [History Last Taken Unknown] losartan 50 mg DAILY 02/14/19 [History Last Taken Unknown] venlafaxine 75 mg PO BID 02/14/19 [History Last Taken Unknown] aspirin 81 mg PO DAILY 08/09/20 [History Last Taken Unknown] hydroxychloroquine 200 mg PO BID 08/09/20 [History Last Taken Unknown] Allergy/AdvReac Type Severity Reaction Status Date / Time Penicillins Allergy Anaphylaxis Verified 06/17/21 09:47 acetaminophen [From Vicodin] AdvReac Itching Verified 06/17/21 09:47 codeine AdvReac Nausea Verified 06/17/21 09:47 ezetimibe [From Zetia] AdvReac Itching Verified 06/17/21 09:47 hydrocodone bitartrate AdvReac Itching Verified 06/17/21 09:47 [From Vicodin] [id number] Reductase AdvReac Other Verified 06/17/21 09:47 Inhibitor [Ffcyuko-Wlo-Gpo Reductase Inhibitor] Surgical History History of appendectomy History of open heart surgery Status post coronary artery bypass graft Social History Smoking Status: Former smoker how long ago did patient quit smokin, 1ppd second hand exposure: Yes ROS ROS ED Constitutional Constitutional ED: Denies chills or fever(s) Eyes Eyes: Denies blurry vision or diplopia ENT ENT ED: Denies rhinorrhea or sore throat Cardiovascular Cardiovascular: Denies chest pain or palpitations Respiratory/Chest Respiratory/Chest: Denies cough or dyspnea Gastrointestinal Gastrointestinal: Denies abdominal pain, nausea or vomiting Genitourinary Genitourinary ED: Denies dysuria or hematuria Musculoskeletal Musculoskeletal: Reports other Details: Left shoulder pain, left hip pain Integumentary Denies Abrasions or rash Neurologic Neurologic: Denies headache(s) or paresthesias EXAM Physical Exam Const Vital Signs: 06/17/21 09:41 06/17/21 10:23 06/17/21 11:08 Temperature 97.9 F Temperature Source Temporal Pulse Rate 62 59 L Respiratory Rate 19 H 20 H Respiratory Effort Normal Non-Labored Respiratory Depth Normal Respiratory Pattern Normal Blood Pressure 162/99 H 151/67 H Blood Pressure Mean 120 95 Pulse Ox 96 94 Oxygen Delivery Method Room Air Room Air Positive well nourished General Appearance ED: NAD HEENT Reports normocephalic and TM's clear atraumatic Tympanic Membrane ED: Yes TM's clear Eyes PERRL and EOMs intact bilaterally General Eye ED: Negative for pale conjunctiva or scleral icterus Neck Neck Narrative: No midline spinal tenderness, deformity, step-off. Chest Wall inspection of chest normal Resp normal respiratory effort and clear to auscultation bilaterally Cardio regular rate and regular rhythm Back/Spine Back/Spine Narrative: Tenderness to palpation mildly over the left greater trochanter. Patient is able to flex her hip with under her own strength. There is no obvious deformity. Left shoulder has pain over the deltoid. There is no bruising or abrasions. Patient unable to range her left shoulder in abduction or flexion. Cervical Spine: Negative for cervical spine tenderness Thoracic Spine / Upper Back: Negative for thoracic spinal tenderness Lumbar Spine / Lower Back: Negative for lumbar spinal tenderness Neuro oriented x3, CN's II-XII intact bilaterally and no sensory deficits noted Sensorium / Orientation: alert Psych mental status grossly normal and thought process normal Skin Skin Narrative: Superficial abrasion over the left wrist. MDM MDM MDM Narrative Medical decision making narrative: Patient arrives with left shoulder pain and left hip pain after mechanical fall. Patient states she was unable to the off the floor and is unable to ambulate without a walker. She would not be able to use her left shoulder due to pain and therefore cannot ambulate. He is given morphine and Zofran on arrival. Her CBC is normal. Her INR is therapeutic. CMP is unremarkable. CT of the brain and cervical spine are negative for acute findings. Left hip x-ray does not show any acute fracture or subluxation and the radiologist does agree. Patient clinically able to flex her hip in bed and I do not suspect occult fracture. Left shoulder does not appear to have any acute fractures or subluxations on my interpretation the radiologist does agree. Since patient is unable to ambulate I did involve social work and they stated that with her insurance she would have to be admitted to the hospital before going to intermediate. This was discussed with the hospitalist. Patient in stable condition. Impression: 1. Mechanical fall 2. Left shoulder contusion 3. Left hip contusion 4. Superficial abrasion left wrist 5. Closed head injury 6. Inability to ambulate Lab Data Labs: Laboratory Results - last 24 hr 06/17/21 06/17/21 06/17/21 09:42 09:42 10:18 WBC 7.2 RBC 4.84 Hgb 15.1 H Hct 45.1 MCV 93.2 MCH 31.2 MCHC 33.5 RDW Std Deviation 42.2 RDW Coeff of Lindy 12.3 Plt Count 236 MPV 11.7 Immature Gran % (Auto) 0.300 Neut % (Auto) 56.6 Lymph % (Auto) 30.5 Sebastian % (Auto) 7.5 Eos % (Auto) 4.3 Baso % (Auto) 0.8 Absolute Neuts (auto) 4.1 Absolute Lymphs (auto) 2.21 Nucleated RBC % 0 PT 24.2 H INR 2.3 Sodium Cancelled Potassium Cancelled Chloride Cancelled Carbon Dioxide Cancelled Anion Gap Cancelled BUN Cancelled Creatinine Cancelled Estim Creat Clear Calc Cancelled Est GFR (MDRD) Af Amer Cancelled Est GFR (MDRD) Non-Af Cancelled BUN/Creatinine Ratio Cancelled Glucose Cancelled Calcium Cancelled Total Bilirubin Cancelled AST Cancelled ALT Cancelled Alkaline Phosphatase Cancelled Total Protein Cancelled Albumin Cancelled Globulin Cancelled Albumin/Globulin Ratio Cancelled 06/17/21 11:05 WBC RBC Hgb Hct MCV MCH MCHC RDW Std Deviation RDW Coeff of Lindy Plt Count MPV Immature Gran % (Auto) Neut % (Auto) Lymph % (Auto) Sebastian % (Auto) Eos % (Auto) Baso % (Auto) Absolute Neuts (auto) Absolute Lymphs (auto) Nucleated RBC % PT INR Sodium 140 Potassium 4.1 Chloride 104 Carbon Dioxide 31.0 Anion Gap 5 BUN 11 Creatinine 0.73 Estim Creat Clear Calc 32.17 Est GFR (MDRD) Af Amer 97 Est GFR (MDRD) Non-Af 81 BUN/Creatinine Ratio 15.0 Glucose 125 H Calcium 8.4 L Total Bilirubin 0.50 AST 23 ALT 24 Alkaline Phosphatase 68 Total Protein 6.8 Albumin 3.1 L Globulin 3.7 Albumin/Globulin Ratio 0.8 L Radiography Diagnostic Testing: Clinical Impression(s) from Imaging Studies Brain CT 06/17/21 10:08 IMPRESSION: Chronic involutional changes of the brain. No acute hemorrhage or significant interval change Electronically Signed: Von Rivers MD at 11:01 EST , Service support , Cervical Spine CT 06/17/21 10:08 IMPRESSION: Multilevel degenerative changes, as described above. Electronically Signed: Von Rivers MD at 11:07 EST , Service support , Hip/Pelvis X-Ray 06/17/21 10:08 IMPRESSION: Age consistent hip and SI joint arthrosis. No demonstrated fracture or suspicious osseous lesion. However, hip and pelvic fractures in patients of this age can be subtle, if there is strong clinical suspicion of a fracture, recommend further evaluation with cross-sectional imaging Electronically Signed: Von Rivers MD at 11:08 EST , Service support , Shoulder X-Ray 06/17/21 10:08 IMPRESSION: Moderate glenohumeral arthrosis There is been previous resection of the distal clavicle, AC joint cannot be accurately assessed No upper rib fracture or pneumothorax Electronically Signed: Von Rivers MD at 11:10 EST , Service support , Discharge Plan Triage Chief Complaint: Fall ED Provider: Joe Rosario Dx/Rx/DC Orders Prescriptions: No Action trazodone 50 MG tablet 100 mg PO QHS RF: 0 warfarin 5 MG tablet 4 mg PO DAILY RF: 0 furosemide 20 MG tablet 20 mg PO DAILY RF: 0 atorvastatin 40 MG tablet 40 mg PO QHS RF: 0 metoprolol tartrate 25 MG tablet 100 mg PO BID RF: 0 losartan 50 MG tablet 50 mg DAILY RF: 0 venlafaxine 75 MG tablet 75 mg PO BID RF: 0 fluticasone furoate 50 MCG blister with device 50 mcg IH DAILY RF: 0 aspirin 81 MG tablet,delayed release (DR/EC) 81 mg PO DAILY RF: 0 hydroxychloroquine 200 MG tablet 200 mg PO BID RF: 0 Primary Care Provider: Joao Simon
[2021-06-17] MEDS: Ondansetron 4 MG/2 ML Vial IV (10:22)
[2021-06-17] MEDS: Morphine 4 MG/ML Syringe IV (10:22)
[2021-06-17 10:49] LABS: Absolute Lymphocyte Count 2.21 X10^3/uL (0.83-4.51); Absolute Neutrophil Count 4.1 X10^3/uL (2.0-7.7); Basophil# 0.06 X10^3/uL; Basophil% 0.8 % (0-1); Eosinophil# 0.31 X10^3/uL; Eosinophils% 4.3 % (0-5); Hematocrit 45.1 % (37-47); Hemoglobin 15.1 g/dL (12.0-15.0); Lymphocyte # 2.21 X10^3/ul (0.83-4.51); Lymphocyte % 30.5 % (19-41); Mean Corp Hgb Conc 33.5 g/dL (32-36); Mean Corpuscular Hgb 31.2 pg (27.0-32.0); Mean Corpuscular Volume 93.2 fL (81-99); Mean Platelet Vol. 11.7 fl (6.2-12.0); Monocyte# 0.54 X10^3/uL; Monocyte% 7.5 % (0-10); NRBC Flagged by Analyzer 0 % (0-5); Neutrophil % 56.6 % (47-70); Platelet Count 236 K/mm3 (150-450); RBC Distribution Width CV 12.3 % (11.6-14.6); RBC Distribution Width SD 42.2 fl (35.1-43.9); Red Blood Count 4.84 M/mm3 (4.2-5.4); White Blood Count 7.2 K/mm3 (4.4-11.0)
[2021-06-17 10:52] LABS: International Normalized Ratio 2.3; Prothrombin Time (Protime)PT. 24.2 SECONDS (11.7-14.9)
[2021-06-17 11:08] VITALS: BP 151/67; PULSE 59; RESP 20; O2SAT 94
[2021-06-17 11:24] LABS: ALB/GLOB Ratio 0.8 RATIO (0.9-2.4); AST(SGOT) 23 U/L (15-37); Alanine Aminotransfer ALT/SGPT 24 U/L (13-56); Albumin, Serum 3.1 g/dL (3.2-5.0); Alkaline Phosphatase 68 U/L (45-117); Anion Gap 5 (5-15); BUN 11 mg/dL (7-18); Calcium,Total 8.4 mg/dL (8.5-10.1); Chloride 104 mmol/L (98-107); Creatinine, Serum 0.73 mg/dL (0.55-1.02); EST Glomerular Filtration Rate 81 mL/min (>60); Est Glom Filt Rate - Afr Amer 97 mL/min (>60); Estimated Creatinine Clearance 32.17 ml/min; Globulin 3.7 g/dL (2.2-4.2); Glucose 125 mg/dL (74-106); Potassium 4.1 mmol/L (3.5-5.1); Protein, Total 6.8 g/dL (6.4-8.2); Sodium Level 140 mmol/L (136-145)
--- NOTE | 2021-06-17 12:00 | CM.ED ---
BETTINA Note Referral Source: MD Referral Reason: Placement MD advised that he is concerned about patient going home with her arm injury. SAI BHATIA called TCU and they have no beds. SAI BHATIA called [facility] and they have a bed but the patient can't be admitted from the ED. They also stated that they do take MMO. BETTINA met with patient and her daughter. They indicated their first choice is TCU and if no bed is available there second choice is [facility]. BETTINA called Janette at at [facility]. Their first available bed is Monday and Janette will review patient's chart to see if she is appropriate for TCU. Plan: Admit to acute unit [facility]
[2021-06-17 12:27] VITALS: BP 154/79; PULSE 58; RESP 12; TEMP 36; O2SAT 94
[2021-06-17 12:59] VITALS: BMI 33.0
[2021-06-17 13:13] VITALS: BP 162/75; PULSE 57; RESP 16; TEMP 36.6; O2SAT 96
--- NOTE | 2021-06-17 13:23 | PCM.HP.STD ---
[facility] - General General Date of Admission: 06/17/21 Date of Service: 06/17/21 Chief Complaint: Fall in garage while turning around. Pain over left shoulder. [facility] Narrative ERASTO RICHARDSON, is a 85 F who was brought by EMS after she fell down in her garage. Patient at baseline uses walker and has chronic unsteady gait. She is stepped down 2 steps and went to garage and took the newspaper and then she turned around and lost balance and fell on the left side. She has mainly pain over left shoulder. She has history of left shoulder rotator cuff surgery in the past and is surgical scar. She also hit her head on the plastic cane but does not have any major injury hematoma or bruise. She has history of ischemic stroke with mild right-sided weakness in the past. She also has history of paroxysmal A. fib history of DVT and is on Coumadin. INR is therapeutic. X-rays reviewed does not show any major fracture or acute abnormality. In ED, vital signs were in acceptable limit. No hypotension. No hypoxia or tachypnea. Labs reviewed. [facility] Medical History (Updated 06/17/21 @ 18:[address] Rogerio Genao MD) Atrial fibrillation Atrial fibrillation with RVR Bilateral breast cancer Coronary artery disease Depression Diarrhea Hypertension Hypotension Non-ST elevation RI (NSTEMI) Restrictive airway disease Home Medications furosemide 20 mg PO DAILY 04/20/13 [History Last Taken Unknown] trazodone 100 mg PO QHS 04/20/13 [History Last Taken 10/01/16] warfarin 4 mg PO DAILY 04/20/13 [History Last Taken 09/30/16] atorvastatin 40 mg PO QHS 10/01/16 [History Last Taken Unknown] metoprolol tartrate 100 mg PO BID 07/31/17 [History Last Taken Unknown] fluticasone furoate 50 mcg IH DAILY 02/14/19 [History Last Taken Unknown] losartan 50 mg DAILY 02/14/19 [History Last Taken Unknown] venlafaxine 75 mg PO BID 02/14/19 [History Last Taken Unknown] aspirin 81 mg PO DAILY 08/09/20 [History Last Taken Unknown] hydroxychloroquine 200 mg PO BID 08/09/20 [History Last Taken Unknown] Allergy/AdvReac Type Severity Reaction Status Date / Time Penicillins Allergy Anaphylaxis Verified 06/17/21 09:47 acetaminophen [From Vicodin] AdvReac Itching Verified 06/17/21 09:47 codeine AdvReac Nausea Verified 06/17/21 09:47 ezetimibe [From Zetia] AdvReac Itching Verified 06/17/21 09:47 hydrocodone bitartrate AdvReac Itching Verified 06/17/21 09:47 [From Vicodin] Qqvvgvs-JMB-AkR Reductase AdvReac Other Verified 06/17/21 09:47 Inhibitor [Mzztqga-Goy-Msh Reductase Inhibitor] Surgical History History of appendectomy History of open heart surgery Status post coronary artery bypass graft Social History Smoking Status: Former smoker how long ago did patient quit smokin, 1ppd second hand exposure: Yes ROS ROS Narrative Constitutional: Reports fatigue and weakness. No fever HEENT: No blurry vision. Reports systems reviewed and no addt'l complaints, except as documented Respiratory/Chest: Denies chest pain, shortness of breath at rest. Mild dyspnea on exertion on walking because of deconditioning. Gastrointestinal: Denies coffee ground emesis, hematemesis or vomiting Genitourinary: Denies burning urination or new urinary tract symptoms Musculoskeletal: Left shoulder pain. 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 Patient does not walk outside home. Ambulation restricted on walker, physical deconditioning. Neurologic: Old stroke with right-sided weakness mainly right lower extremity. Denies seizure-like activity skin: Bruise over left forearm. Endocrinology: Reports systems reviewed and no addt'l complaints, except as documented Hematologic/Lymphatic: Reports systems reviewed and no addt'l complaints, except as documented Rest 14 ROS are negative except as mentioned in HPI Vital Signs Vital Signs Vital Signs: 06/17/21 09:41 06/17/21 10:23 06/17/21 11:08 Temperature 97.9 F Temperature Source Temporal Pulse Rate 62 59 L Respiratory Rate 19 H 20 H Respiratory Effort Normal Non-Labored Respiratory Depth Normal Respiratory Pattern Normal Blood Pressure 162/99 H 151/67 H Blood Pressure Mean 120 95 Blood Pressure Source Blood Pressure Position Blood Pressure Location Pulse Ox 96 94 Oxygen Delivery Method Room Air Room Air 06/17/21 12:27 06/17/21 13:13 Temperature 96.8 F L 97.8 F Temperature Source Temporal Oral Pulse Rate 58 L 57 L Respiratory Rate 12 16 Respiratory Effort Respiratory Depth Respiratory Pattern Blood Pressure 154/79 H 162/75 H Blood Pressure Mean 104 104 Blood Pressure Source Monitor Blood Pressure Position Semi-Fowlers Blood Pressure Location Right Arm Pulse Ox 94 96 Oxygen Delivery Method Room Air Room Air Weight Weight: 174 lb 9 oz Body Mass Index (BMI) 33.0 Physical Exam Narrative General: Alert, Oriented x3, Cooperative HEENT: Atraumatic, PERRLA, EOMI, Normocephalic Oral: No Gingival or Mucosal Lesions/ Ulcerations Neck: Supple, No JVD, Negative Carotid Bruits Lungs: Air entry diminished in bilateral lung bases. No crepitation/rhonchi Cardiovascular: Regular rate, Regular Rhythm, Normal S1, Normal S2, No murmurs Abdomen: Bowel Sounds Present, Soft, Non Tender, Non-Distended : No renal angle tenderness. No suprapubic tenderness. Extremities: No edema, Capillary Refill Less than 3 Seconds Skin: No rashes, No breakdown Musculoskeletal: Mild tenderness over left rotator cuff area. Surgical scar present. Mild tenderness over the left pelvis. Soft tissue tenderness. Neurological: Cranial nerves II-XII grossly intact, chronic right-sided weakness, right lower extremity weakness 3+/5, left lower extremity 4/5 Psych/Mental Status: Flat affect Results Lab / Micro Data Result Diagrams: 06/17/21 09:42 06/17/21 11:05 Labs: Laboratory Results - last 24 hr 06/17/21 09:42: WBC 7.2, RBC 4.84, Hgb 15.1 H, Hct 45.1, MCV 93.2, MCH 31.2, MCHC 33.5, RDW Std Deviation 42.2, RDW Coeff of Lindy 12.3, Plt Count 236, MPV 11.7, Immature Gran % (Auto) 0.300, Neut % (Auto) 56.6, Lymph % (Auto) 30.5, [place] % (Auto) 7.5, Eos % (Auto) 4.3, Baso % (Auto) 0.8, Absolute Neuts (auto) 4.1, Absolute Lymphs (auto) 2.21, Nucleated RBC % 0 06/17/21 09:42: Sodium Cancelled, Potassium Cancelled, Chloride Cancelled, Carbon Dioxide Cancelled, Anion Gap Cancelled, BUN Cancelled, Creatinine Cancelled, Estim Creat Clear Calc Cancelled, Est GFR (MDRD) Af Amer Cancelled, Est GFR (MDRD) Non-Af Cancelled, BUN/Creatinine Ratio Cancelled, Glucose Cancelled, Calcium Cancelled, Total Bilirubin Cancelled, AST Cancelled, ALT Cancelled, Alkaline Phosphatase Cancelled, Total Protein Cancelled, Albumin Cancelled, Globulin Cancelled, Albumin/Globulin Ratio Cancelled 06/17/21 10:18: PT 24.2 H, INR 2.3 06/17/21 11:05: Sodium 140, Potassium 4.1, Chloride 104, Carbon Dioxide 31.0, Anion Gap 5, BUN 11, Creatinine 0.73, Estim Creat Clear Calc 32.17, Est GFR (MDRD) Af Amer 97, Est GFR (MDRD) Non-Af 81, BUN/Creatinine Ratio 15.0, Glucose 125 H, Calcium 8.4 L, Total Bilirubin 0.50, AST 23, ALT 24, Alkaline Phosphatase 68, Total Protein 6.8, Albumin 3.1 L, Globulin 3.7, Albumin/Globulin Ratio 0.8 L Radiology Impression Brain CT 06/17/21 10:08 IMPRESSION: Chronic involutional changes of the brain. No acute hemorrhage or significant interval change Electronically Signed: Von Rivers MD at 11:01 EST , Service support , Cervical Spine CT 06/17/21 10:08 IMPRESSION: Multilevel degenerative changes, as described above. Electronically Signed: Von Rivers MD at 11:07 EST , Service support , Hip/Pelvis X-Ray 06/17/21 10:08 IMPRESSION: Age consistent hip and SI joint arthrosis. No demonstrated fracture or suspicious osseous lesion. However, hip and pelvic fractures in patients of this age can be subtle, if there is strong clinical suspicion of a fracture, recommend further evaluation with cross-sectional imaging Electronically Signed: Von Rivers MD at 11:08 EST , Service support , Shoulder X-Ray 06/17/21 10:08 IMPRESSION: Moderate glenohumeral arthrosis There is been previous resection of the distal clavicle, AC joint cannot be accurately assessed No upper rib fracture or pneumothorax Electronically Signed: Von Rivers MD at 11:10 EST , Service support , Assessment & Plan Assessment/Plan (1) Fall: PLAN: 1. Mechanical fall with no major acute fracture/dislocation but soft tissue pain: Patient is being admitted on Med[facility] floor. X-rays reviewed. CT head and CT C-spine does not show acute change. Hip pelvis x-ray shows chronic hip and SI joint arthrosis with degenerative changes. No demonstrated fracture or suspicious osseous lesion. Left shoulder x-ray shows moderate glenohumeral arthrosis with previous resection of distal clavicle. PT and OT ordered. Pain control. Muscle relaxant. Patient will need evaluation for possible SNF placement. 2. coronary artery disease, status post CABG and stents, non-STEMI, history of paroxysmal A. fib status post cardioversion. Dyslipidemia: Last echo in July 2020 shows EF 65%, LA moderately enlarged, mild MR, moderate TR, mild aortic stenosis. RVSP 30 to MAG. Continue home cardiac medications. No chest pain or acute shortness of breath. Continue Lasix, aspirin, metoprolol, and losartan 2. Chronic dyspnea on exertion, undifferentiated with restrictive airway disease: Patient follows Dr. Gee. Her previous PFT May 2018 will need demonstrated mild restrictive ventilatory impairment. Patient has dyspnea on exertion probably due to Deconditioning and obesity. Past history of smoking. 4. History of PE and DVT: On warfarin, continued. INR therapeutic. Follow-up INR daily. 5. History of breast cancer status post mastectomy. Patient had chemotherapy more than 23 years ago. 6. Anxiety and depression: Home medication continued 7. History of stroke with mild right-sided weakness: The patient is on aspirin and warfarin. VTE prophylaxis: Warfarin Living will/advanced directive/end of life care: Patient does have living will or advanced directive. Her daughter who accompanied to ER is power of deputy commonwealth's attorney for health. After discussion of benefits/risks procedures involved with full code, DNR CC arrest and DNR CC, the patient and her daughter agreeable for DNRCC arrest with no intubation Patient doesn't want artificial life support including intubation, tube feed, ventilator and/chest compression, central venous catheter, vasopressor and DC shock if needed Total time spent in wfdk-[id number] encounter in discussion of advanced directive 16 minutes. Clinical Impression(s) from Imaging Studies Brain CT 06/17/21 10:08 IMPRESSION: Chronic involutional changes of the brain. No acute hemorrhage or significant interval change Cervical Spine CT 06/17/21 10:08 IMPRESSION: Multilevel degenerative changes, as described above. Hip/Pelvis X-Ray 06/17/21 10:08 IMPRESSION: Age consistent hip and SI joint arthrosis. No demonstrated fracture or suspicious osseous lesion. However, hip and pelvic fractures in patients of this age can be subtle, if there is strong clinical suspicion of a fracture, recommend further evaluation with cross-sectional imaging Shoulder X-Ray 06/17/21 10:08 IMPRESSION: Moderate glenohumeral arthrosis There is been previous resection of the distal clavicle, AC joint cannot be accurately assessed No upper rib fracture or pneumothorax Electronically Signed: Von Rivers MD at 11:10 EST , Service support , Charges/Coding Visit Charges Inpatient E&M: 67948 Init Hosp L3 Procedures Hospitalists Procedures: 86438 Advncd Care Plan 30 Min
[2021-06-17] MEDS: oxyCODONE 5 MG Tablet PO ×2 (14:44→22:00)
[2021-06-17] MEDS: Lactated Ringers 1,000 ML 75 ML IV (14:45)
[2021-06-17 21:56] VITALS: PULSE 68
[2021-06-17] MEDS: Metoprolol Tartrate 100 MG Tablet PO (21:56)
[2021-06-17] MEDS: Atorvastatin Calcium 40 MG Tablet PO ×2 (21:56)
[2021-06-17 22:04] VITALS: BP 189/78; PULSE 62; RESP 16; TEMP 36.8; O2SAT 96
[2021-06-17] MEDS: traZODone 100 MG Tablet PO (22:25)
[2021-06-17] MEDS: Venlafaxine HCl 75 MG Tablet PO (22:25)
[2021-06-17] MEDS: Hydroxychloroquine 200 MG Tablet PO (22:25)
[2021-06-18 04:04] VITALS: BP 155/76; PULSE 59; RESP 16; TEMP 36.9; O2SAT 96
[2021-06-18 04:27] LABS: Absolute Lymphocyte Count 1.81 X10^3/uL (0.83-4.51); Absolute Neutrophil Count 5.7 X10^3/uL (2.0-7.7); Basophil# 0.04 X10^3/uL; Basophil% 0.5 % (0-1); Eosinophil# 0.35 X10^3/uL; Eosinophils% 4.1 % (0-5); Hematocrit 37.7 % (37-47); Lymphocyte # 1.81 X10^3/ul (0.83-4.51); Lymphocyte % 21.3 % (19-41); Mean Corp Hgb Conc 34.5 g/dL (32-36); Mean Corpuscular Volume 89.8 fL (81-99); Mean Platelet Vol. 10.5 fl (6.2-12.0); Monocyte# 0.63 X10^3/uL; Monocyte% 7.4 % (0-10); NRBC Flagged by Analyzer 0 % (0-5); Neutrophil # 5.67 X10^3/uL (2.7-7.7); Neutrophil % 66.6 % (47-70); Platelet Count 180 K/mm3 (150-450); RBC Distribution Width CV 12.2 % (11.6-14.6); RBC Distribution Width SD 40.2 fl (35.1-43.9); White Blood Count 8.5 K/mm3 (4.4-11.0)
[2021-06-18 05:01] LABS: Anion Gap 5 (5-15); BUN 16 mg/dL (7-18); Calcium,Total 8.1 mg/dL (8.5-10.1); Chloride 103 mmol/L (98-107); EST Glomerular Filtration Rate 85 mL/min (>60); Est Glom Filt Rate - Afr Amer 103 mL/min (>60); Estimated Creatinine Clearance 32.17 ml/min; Glucose 127 mg/dL (74-106); International Normalized Ratio 2.3; Potassium 3.7 mmol/L (3.5-5.1); Prothrombin Time (Protime)PT. 24.7 SECONDS (11.7-14.9); Sodium Level 136 mmol/L (136-145)
[2021-06-18 08:07] VITALS: BP 138/66; PULSE 64; RESP 18; TEMP 36.7; O2SAT 97
[2021-06-18] MEDS: oxyCODONE 5 MG Tablet PO (08:19)
--- NOTE | 2021-06-18 09:07 | PCS.PANDOC ---
PANDEMIC DOCUMENTATION INITIATED: Date: 01/11/2021 Time: 190
[2021-06-18] MEDS: Venlafaxine HCl 75 MG Tablet PO (09:38)
[2021-06-18] MEDS: Fluticasone 0.05% 1 SPRAY NASAL.SRY 2 SPRAY NASAL (09:38)
[2021-06-18] MEDS: Aspirin E.C. 81 MG Tablet PO (09:38)
[2021-06-18] MEDS: Losartan Potassium 50 MG Tablet PO (09:38)
[2021-06-18 09:39] VITALS: PULSE 64
[2021-06-18] MEDS: Metoprolol Tartrate 100 MG Tablet PO (09:39)
[2021-06-18] MEDS: Hydroxychloroquine 200 MG Tablet PO (09:39)
[2021-06-18 10:21] VITALS: O2SAT 97
--- NOTE | 2021-06-18 10:26 | CASEMGMT ---
Social Work SW received referral from [facility], BETTINA that pt will need placement and pt choosing TCU or [facility] SNF. SW spoke with Janette in TCU and they will have a bed available today and can accept pt. SW met with pt and introduced self and role of SW. Pt states she lives alone and dgt Brooke is very supportive. Pt is independent with all care needs and Brooke gets groceries and pre made meals from [employer] that pt is able to warm up. Pt has a rollator, walker, cane shower chair and toilet riser. Pt had fall at home yesterday and is now requiring placement for short term rehab prior to return home. SW provided pt with list of SNF providers including quality and resource use data and consistent with the patient's preferred geographic region, medial needs and insurance network. Pt confirms provider of choice is TCU. Pt notified that they do have a bed available and are able to accept pt today if medically ready. Pt agreeable. With pt permission VM left with pt dgt and updated on discharge plan. Physician notified that a bed is available in TCU today if medically ready. Plan: TCU, when medically ready. YUN Parmar
--- NOTE | 2021-06-18 10:58 | PCM.TXEXTCAR ---
Documented by User: Radhames GALLEGOS 06/18/21 11:04 Diet 06/17/21 14:00 Diet: Cardiac - Heart Healthy Food consistency:: Regular Liquid Consistency:: Regular/Thin Wound(s) LEFT FOREARM: Wound Type: Skin Tear Therapies Weight Bearing: Partial weight bearing Physical Therapy: Eval and Treat Occupational Therapy: Eval and Treat Problem/Diagnosis (1) Fall: Status: Acute Allergies/Procedures Done in Hospital Allergies Penicillins Allergy (Verified 06/17/21 09:47) Anaphylaxis acetaminophen [From Vicodin] Adverse Reaction (Verified 06/17/21 09:47) Itching codeine Adverse Reaction (Verified 06/17/21 09:47) Nausea ezetimibe [From Zetia] Adverse Reaction (Verified 06/17/21 09:47) Itching hydrocodone bitartrate [From Vicodin] Adverse Reaction (Verified 06/17/21 09:47) Itching Vqdwdtm-XAG-TdI Reductase Inhibitor [Ezqcsoy-Edv-Qar Reductase Inhibitor] Adverse Reaction (Verified 06/17/21 09:47) Other Type of Care/Length of Stay Estimated LOS: Convalescent Care Less Than 30 days Type of Care Needed: Skilled Rehab Potential: Good Prognosis: Good Additional Orders/Day of Discharge Day of Discharge: 06/18/21 Discharge Plan Admission Admit Date/Time: 06/17/21 13:16 Primary Reason for Your Visit: Fall, no fracture Attending Provider: Dusty Santana Primary Care Provider: Joao Simon Discharge Orders/Prescriptions Prescriptions: Continued trazodone 50 MG tablet 100 mg PO QHS RF: 0 warfarin 5 MG tablet 4 mg PO DAILY RF: 0 furosemide 20 MG tablet 20 mg PO DAILY RF: 0 atorvastatin 40 MG tablet 40 mg PO QHS RF: 0 metoprolol tartrate 25 MG tablet 100 mg PO BID RF: 0 losartan 50 MG tablet 50 mg DAILY RF: 0 venlafaxine 75 MG tablet 75 mg PO BID RF: 0 fluticasone furoate 50 MCG blister with device 50 mcg IH DAILY RF: 0 aspirin 81 MG tablet,delayed release (DR/EC) 81 mg PO DAILY RF: 0 hydroxychloroquine 200 MG tablet 200 mg PO BID RF: 0 Referrals / Follow Up: Joao Simon MD [Primary Care Provider] - Within 2 Weeks Disposition Disposition (needs filled in before D/C Order can be placed): Long Term Facility Documented by User: Dr. Dusty Santana MD 06/18/21 15:41 Allergies/Procedures Done in Hospital Allergies Penicillins Allergy (Verified 06/17/21 09:47) Anaphylaxis acetaminophen [From Vicodin] Adverse Reaction (Verified 06/17/21 09:47) Itching codeine Adverse Reaction (Verified 06/17/21 09:47) Nausea ezetimibe [From Zetia] Adverse Reaction (Verified 06/17/21 09:47) Itching hydrocodone bitartrate [From Vicodin] Adverse Reaction (Verified 06/17/21 09:47) Itching Loaatqb-EDI-DhR Reductase Inhibitor [Dlrtxlh-Ilv-Kwz Reductase Inhibitor] Adverse Reaction (Verified 06/17/21 09:47) Other Discharge Plan Admission Admit Date/Time: 06/17/21 13:16 Primary Reason for Your Visit: Fall, no fracture Attending Provider: Dusty Santana Primary Care Provider: Joao Simon Discharge Orders/Prescriptions Prescriptions: Continued trazodone 50 MG tablet 100 mg PO QHS RF: 0 warfarin 5 MG tablet 4 mg PO DAILY RF: 0 furosemide 20 MG tablet 20 mg PO DAILY RF: 0 atorvastatin 40 MG tablet 40 mg PO QHS RF: 0 metoprolol tartrate 25 MG tablet 100 mg PO BID RF: 0 losartan 50 MG tablet 50 mg DAILY RF: 0 venlafaxine 75 MG tablet 75 mg PO BID RF: 0 fluticasone furoate 50 MCG blister with device 50 mcg IH DAILY RF: 0 aspirin 81 MG tablet,delayed release (DR/EC) 81 mg PO DAILY RF: 0 hydroxychloroquine 200 MG tablet 200 mg PO BID RF: 0 Referrals / Follow Up: Joao Simon MD [Primary Care Provider] - Within 2 Weeks Disposition Disposition (needs filled in before D/C Order can be placed): Long Term Facility
[2021-06-18] MEDS: Furosemide 20 MG Tablet PO (11:39)
[2021-06-18] MEDS: Psyllium 1 PACKET PO (11:39)
[2021-06-18 11:40] VITALS: BP 116/67; PULSE 58; RESP 18; TEMP 36.7; O2SAT 92
[2021-06-18 12:04] VITALS: O2SAT 92
--- NOTE | 2021-06-18 12:38 | NURSING ---
[report called to Maryam GIBBS, TCU. awaiting on bed.
--- NOTE | 2021-06-18 13:14 | CASEMGMT ---
Social Work Per physician, pt ready for d/c today. Orders faxed to TCU. TCU aware of admission. Pt notified and agreeable. Plan: TCU today YUN Parmar
--- NOTE | 2021-06-18 13:56 | PCM.DC.SUM ---
Documented by User: Radhames GALLEGOS 06/18/21 14:00 Providers Date of Admission: 06/17/21 Primary Care Physician: Dr. Joao Simon MD Reason For Visit: INABILITY TO AMBULATE Diagnosis Discharge Diagnosis (1) Fall: Status: Acute Code(s): W19.XXXA - Unspecified fall, initial encounter Medications at Discharge Home Medications furosemide 20 mg PO DAILY 04/20/13 trazodone 100 mg PO QHS 04/20/13 warfarin 4 mg PO DAILY 04/20/13 atorvastatin 40 mg PO QHS 10/01/16 metoprolol tartrate 100 mg PO BID 07/31/17 fluticasone furoate 50 mcg IH DAILY 02/14/19 losartan 50 mg DAILY 02/14/19 venlafaxine 75 mg PO BID 02/14/19 aspirin 81 mg PO DAILY 08/09/20 hydroxychloroquine 200 mg PO BID 08/09/20 Hospital Course Summary of Care Provided Minutes Spent on Discharge: 15 Hospital Course: Patient is an 85-year-old female who was admitted to [facility] on 06/17/2021 after suffering a mechanical fall. Imaging to include CT of the head, cervical spine and hip/pelvic x-rays demonstrated no acute fracture and only showed chronic changes. Patient was managed on adjunctive pain medications throughout admission and qualified to go to the transitional care unit for rehabilitation. Patient was subsequently discharged on 06/18/2021 to TCU for ongoing therapy. All medications for all other chronic conditions were continued. Patient is to follow-up with primary care provider within the next 2 weeks. Patient seen by Rahdames Kaufman PA-C, under the supervision of Dr. Santana. Time spent on patient care: 15 minutes. Physical Exam Narrative Patient is an 85-year-old female comfortably resting in bed, alert and orient x3. Patient reports of mild hip pain and area where she suffered a fall, but reports that this is manageable. Denies development of any new symptoms overnight. Does not appear in acute distress. Const alert, oriented x3 and no apparent distress HEENT normocephalic, head/scalp atraumatic and hearing grossly normal bilaterally Eyes PERRL, EOMs intact bilaterally and conjunctivae normal Neck no lymphadenopathy, supple and no JVD Resp normal respiratory effort, no retractions, no use of accessory muscles and clear to auscultation bilaterally Cardio regular rate, regular rhythm and no JVD GI normal to inspection, nondistended, normoactive bowel sounds, soft to palpation and non-tender Extremity normal to inspection, full ROM and no clubbing, cyanosis or edema Skin no rashes or lesions noted, no wounds and skin turgor normal Neuro CN's II-XII intact bilaterally Psych affect normal Weight / BMI Weight Weight: 177 lb 11.081 oz Body Mass Index (BMI) 33.0 ABG / Lab / Microbiology Data Result Diagrams: 06/18/21 04:15 06/18/21 04:15 Laboratory: Laboratory Results - last 24 hr 06/18/21 04:15: WBC 8.5, RBC 4.20, Hgb 13.0, Hct 37.7, MCV 89.8, MCH 31.0, MCHC 34.5, RDW Std Deviation 40.2, RDW Coeff of Lindy 12.2, Plt Count 180, MPV 10.5, Immature Gran % (Auto) 0.100, Neut % (Auto) 66.6, Lymph % (Auto) 21.3, [place] % (Auto) 7.4, Eos % (Auto) 4.1, Baso % (Auto) 0.5, Absolute Neuts (auto) 5.7, Absolute Lymphs (auto) 1.81, Nucleated RBC % 0 06/18/21 04:15: PT 24.7 H, INR 2.3 06/18/21 04:15: Sodium 136, Potassium 3.7, Chloride 103, Carbon Dioxide 28.0, Anion Gap 5, BUN 16, Creatinine 0.70, Estim Creat Clear Calc 32.17, Est GFR (MDRD) Af Amer 103, Est GFR (MDRD) Non-Af 85, BUN/Creatinine Ratio 23.0 H, Glucose 127 H, Calcium 8.1 L Meaningful Use Info Meaningful Use Diagnoses (Choose all that apply): None applicable Discharge Plan Admission Admit Date/Time: 06/17/21 13:16 Primary Reason for Your Visit: Fall, no fracture Attending Provider: Dusty Santana Primary Care Provider: Joao Simon Discharge Orders/Prescriptions Prescriptions: Continued trazodone 50 MG tablet 100 mg PO QHS RF: 0 warfarin 5 MG tablet 4 mg PO DAILY RF: 0 furosemide 20 MG tablet 20 mg PO DAILY RF: 0 atorvastatin 40 MG tablet 40 mg PO QHS RF: 0 metoprolol tartrate 25 MG tablet 100 mg PO BID RF: 0 losartan 50 MG tablet 50 mg DAILY RF: 0 venlafaxine 75 MG tablet 75 mg PO BID RF: 0 fluticasone furoate 50 MCG blister with device 50 mcg IH DAILY RF: 0 aspirin 81 MG tablet,delayed release (DR/EC) 81 mg PO DAILY RF: 0 hydroxychloroquine 200 MG tablet 200 mg PO BID RF: 0 Referrals / Follow Up: Joao Simon MD [Primary Care Provider] - Within 2 Weeks Disposition Disposition (needs filled in before D/C Order can be placed): [facility] Facility Documented by User: Dr. Dusty Santana MD 06/18/21 15:45 Providers Date of Admission: 06/17/21 Reason For Visit: INABILITY TO AMBULATE Medications at Discharge Home Medications furosemide 20 mg PO DAILY 04/20/13 trazodone 100 mg PO QHS 04/20/13 warfarin 4 mg PO DAILY 04/20/13 atorvastatin 40 mg PO QHS 10/01/16 metoprolol tartrate 100 mg PO BID 07/31/17 fluticasone furoate 50 mcg IH DAILY 02/14/19 losartan 50 mg DAILY 02/14/19 venlafaxine 75 mg PO BID 02/14/19 aspirin 81 mg PO DAILY 08/09/20 hydroxychloroquine 200 mg PO BID 08/09/20 ABG / Lab / Microbiology Data Result Diagrams: 06/18/21 04:15 06/18/21 04:15 Discharge Plan Admission Admit Date/Time: 06/17/21 13:16 Primary Reason for Your Visit: Fall, no fracture Attending Provider: Dusty Santana Primary Care Provider: Joao Simon Discharge Orders/Prescriptions Prescriptions: Continued trazodone 50 MG tablet 100 mg PO QHS RF: 0 warfarin 5 MG tablet 4 mg PO DAILY RF: 0 furosemide 20 MG tablet 20 mg PO DAILY RF: 0 atorvastatin 40 MG tablet 40 mg PO QHS RF: 0 metoprolol tartrate 25 MG tablet 100 mg PO BID RF: 0 losartan 50 MG tablet 50 mg DAILY RF: 0 venlafaxine 75 MG tablet 75 mg PO BID RF: 0 fluticasone furoate 50 MCG blister with device 50 mcg IH DAILY RF: 0 aspirin 81 MG tablet,delayed release (DR/EC) 81 mg PO DAILY RF: 0 hydroxychloroquine 200 MG tablet 200 mg PO BID RF: 0 Referrals / Follow Up: Joao Simon MD [Primary Care Provider] - Within 2 Weeks Disposition Disposition (needs filled in before D/C Order can be placed): [facility] Charges/Coding Addendum Addendum: Dr. Santana: I personally reviewed the chart and examined the patient, and agree with the above findings. 85-year-old female who lives home alone after a stroke had gone into the garage and when she made a turn to go back up the steps she fell on her left side. She hurt her left shoulder and hit her head. No signs of a fracture on any imaging and no head bleed on CT scan despite being on Coumadin. Would recommend continuing her Coumadin for her history of DVT. We will continue all of her home medications for her coronary artery disease after her CABG and stents as well as her history of non-STEMI is in A. fib. She was also has a history of breast cancer and anxiety and depression and she had a stroke with mild right-sided weakness and she also states that she has difficulty speaking because of the stroke as well. PT and OT evaluated her and felt that she would benefit from SNF placement and she was excepted in the transitional care unit today. I discussed with her the plan for discharge today and she expressed understanding of the risk and benefits of going to the SNF and would like to go today if possible. Clinical time in all aspects of patient care: 30 minutes Visit Charges OBSV E&M: 20719 Observation care discharge
== END 2021-06-18 15:35 ==
LOC: ED 10:17 → MS2 13:44
PROVIDERS: Admitting Provider Internal Medicine; Emergency Provider Student in an Organized Health Care Education/Training Program; PCP Family Medicine; Visit Provider Family Medicine
DX: S40.012A Contusion of left shoulder, initial encounter (principal); I69.351 Hemiplegia and hemiparesis following cerebral infarction affecting right dominant side; I48.91 Unspecified atrial fibrillation; S09.90XA Unspecified injury of head, initial encounter; I25.2 Old myocardial infarction; F41.9 Anxiety disorder, unspecified; Z95.1 Presence of aortocoronary bypass graft; W10.9XXA Fall (on) (from) unspecified stairs and steps, initial encounter; Z87.891 Personal history of nicotine dependence; I10 Essential (primary) hypertension; M19.012 Primary osteoarthritis, left shoulder; S70.02XA Contusion of left hip, initial encounter; S60.812A Abrasion of left wrist, initial encounter; I25.10 Atherosclerotic heart disease of native coronary artery without angina pectoris; Z79.01 Long term (current) use of anticoagulants; Z79.899 Other long term (current) drug therapy; Z79.82 Long term (current) use of aspirin; Z86.718 Personal history of other venous thrombosis and embolism; I69.328 Other speech and language deficits following cerebral infarction; F32.A Depression, unspecified; Y93.01 Activity, walking, marching and hiking; Y99.9 Unspecified external cause status; Y92.008 Other place in unspecified non-institutional (private) residence as the place of occurrence of the external cause; Z86.711 Personal history of pulmonary embolism
CPT/HCPCS: 36415; 70450; 72125; 73030; 73502; 80048; 80053; 85025; 85610; 87426; 96361; 96374; 96375; 97162; 97166; 99218; 99251; 99285; J7120; A4216; G0378; G0463; J2405

== ENCOUNTER 2021-06-18 15:42 | Inpatient (IN) | payer MEDICARE, SELFPAY ==
[2021-06-18 15:47] VITALS: PULSE 62; RESP 18; BMI 33.3
--- NOTE | 2021-06-18 15:56 | HP.PCM_ITS ---
HPI - General General Date of Admission: 06/18/21 HPI Narrative 06/17/2021 ERASTO RICHARDSON, is a 85 Female who presents to [facility] Emergency Department with fall. Usually walks with walker. Walked without walker and fell, hit head, no loss of consciousness. Landed on left shoulder, left hip, unable to get up. Left shoulder pain, Left hip pain. Morphine, Zofran given. CT brain negative, CT cervical spine negative. X-ray left hip negative, X-ray left shoulder negative. 06/17/2021 Admit to Hospital. PT/OT for debility. 06/18/2021 Admit to TCU with debility, here for rehabilitation, strengthening, prior to discharge home alone. Resident suffering left shoulder pain secondary to left rotator cuff tendinopathy. After informed consent, the area was prepped in sterile manner, anesthesia with vapocoolant spray, left subacromial bursa injected with Kenalog 40mg, Lidocaine 1% 1ML, Band-Aid applied, no immediate complications, patient tolerated procedure well. [facility] Medical History (Updated 06/18/21 @ 16:[address] Joseph Rouse MD) Atrial fibrillation Atrial fibrillation with RVR Bilateral breast cancer Coronary artery disease Depression Diarrhea Hypertension Hypotension Non-ST elevation [place] (NSTEMI) Restrictive airway disease Home Medications furosemide 20 mg PO DAILY 04/20/13 [History Last Taken Unknown] trazodone 100 mg PO QHS 04/20/13 [History Last Taken 10/01/16] warfarin 4 mg PO DAILY 04/20/13 [History Last Taken 09/30/16] atorvastatin 40 mg PO QHS 10/01/16 [History Last Taken Unknown] metoprolol tartrate 100 mg PO BID 07/31/17 [History Last Taken Unknown] fluticasone furoate 50 mcg IH DAILY 02/14/19 [History Last Taken Unknown] losartan 50 mg PO DAILY 02/14/19 [History Last Taken Unknown] venlafaxine 75 mg PO BID 02/14/19 [History Last Taken Unknown] aspirin 81 mg PO DAILY 08/09/20 [History Last Taken Unknown] hydroxychloroquine 200 mg PO BID 08/09/20 [History Last Taken Unknown] Allergy/AdvReac Type Severity Reaction Status Date / Time Penicillins Allergy Anaphylaxis Verified 06/17/21 09:47 acetaminophen [From Vicodin] AdvReac Itching Verified 06/17/21 09:47 codeine AdvReac Nausea Verified 06/17/21 09:47 ezetimibe [From Zetia] AdvReac Itching Verified 06/17/21 09:47 hydrocodone bitartrate AdvReac Itching Verified 06/17/21 09:47 [From Vicodin] Tlxzlur-HNP-ZaX Reductase AdvReac Other Verified 06/17/21 09:47 Inhibitor [Dhvilcw-Gne-Bpw Reductase Inhibitor] Surgical History History of appendectomy History of open heart surgery Status post coronary artery bypass graft Social History (Updated 06/18/21 @ 16:[address] Joseph Rouse MD) household members: none Smoking Status: Former smoker how long ago did patient quit smokin, 1ppd second hand exposure: Yes ROS Constitutional Constitutional: Denies chills, fever(s) or weight gain ENT HEENT: Denies headache(s), nasal congestion or nasal discharge Cardiovascular Cardiovascular: Denies chest pain or palpitations Respiratory/Chest Respiratory/Chest: Denies cough, excessive phlegm production or shortness of breath with exertion Gastrointestinal Gastrointestinal: Denies abdominal pain, nausea or vomiting Genitourinary Genitourinary: Denies dysuria Musculoskeletal Musculoskeletal: Denies joint pain or joint swelling Integumentary Integumentary: Denies rash or wounds Neurologic Neurologic: Denies focal weakness, numbness or tingling Psychiatric Psychiatric: Denies anxiety, auditory hallucinations, depression, homicidal ideation or suicidal ideation Physical Exam Const alert and oriented x3 General Appearance: cooperative HEENT normocephalic Eyes PERRL and EOMs intact bilaterally Neck supple, no JVD and no carotid bruits Resp normal respiratory effort, normal air movement and clear to auscultation bilaterally Cardio regular rate and regular rhythm GI normal to inspection, nondistended, normoactive bowel sounds, non-tender and non-distended Extremity normal capillary refill General Extremity: Negative for edema Skin no rashes or lesions noted General Skin Exam: no breakdown Psych affect normal Appearance: appropriate Assessment & Plan Assessment/Plan (1) Debility: (2) Fall: (3) Left rotator cuff tear arthropathy: (4) Left hip pain: (5) Atrial fibrillation: (6) Edema: (7) Insomnia: (8) Hyperlipidemia: (9) Coronary artery disease: (10) Allergic rhinitis: (11) Depression: PLAN: 85 year old female with below past medical history hospitalized for fall, left shoulder pain, left hip pain, no fractures, admitted to TCU with debility, here for rehabilitation, strengthening, prior to discharge home alone. * Debility - PT/OT. * Pain - Tylenol 1000mg q6h prn pain (1-3), Tramadol 50mg q6h prn pain (4-10). * Bowel - Miralax 17gm daily, Senna/colace 1 tablet bid, Dulcolax 10mg daily prn. * Adult immunization - Administer prevnar 13, pneumovax 23, fluzone, covid19 vaccine as appropriate. * DVT prophylaxis - Not necessary, already on warfarin. * Hyperlipidemia - Atorvastatin 40mg qhs. * Restrictive lung disease - Fluticasone furoate 50mcg 1 inhalation daily. * Edema - Lasix 20mg daily. * Rheum - Plaquenil 200mg bid. * Hypertension - Metoprolol 100mg bid, Losartan 50mg daily. * Coronary artery disease - Metoprolol 100mg bid, Warfarin 4mg daily. * Atrial fibrillation - Metoprolol 100mg bid, Warfarin 4mg daily. 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 * Left rotator cuff tendinopathy - left subacromial bursa steroid injection as documented above.
[2021-06-18 16:00] VITALS: BP 146/71; PULSE 62; RESP 18; TEMP 36.9; O2SAT 91
--- NOTE | 2021-06-18 18:13 | NURSING ---
dr alcazar updated, daughter stated pt takes Effexor 150mg QAM & 75mg QHS, xanax 0.5mg PRN BID, & warfarin is 5mg instead of 4mg. new order to change effexor and add xanax per home regimen. no change to coumadin at this time. updated pt and dauhter of changes.
[2021-06-18] MEDS: Senna/Docusate Sodium 1 Tablet PO (18:26)
[2021-06-18 18:27] VITALS: BP 116/67; PULSE 68
[2021-06-18] MEDS: Metoprolol Tartrate 100 MG Tablet PO (18:27)
[2021-06-18 18:40] VITALS: PULSE 67; RESP 18; O2SAT 93
[2021-06-18] MEDS: Budesonide Respules 0.5 MG/2 ML AMPUL.NEB. INHALATION (18:40)
[2021-06-18] MEDS: Hydroxychloroquine 200 MG Tablet PO (18:56)
[2021-06-18] MEDS: Venlafaxine HCl 75 MG Tablet PO (20:41)
[2021-06-18] MEDS: Atorvastatin Calcium 40 MG Tablet PO (20:41)
[2021-06-18] MEDS: traZODone 100 MG Tablet PO (20:42)
[2021-06-19] MEDS: Losartan Potassium 50 MG Tablet PO (05:42)
[2021-06-19] MEDS: Senna/Docusate Sodium 1 Tablet PO ×2 (05:42→17:50)
[2021-06-19] MEDS: Furosemide 20 MG Tablet PO (05:42)
[2021-06-19] MEDS: Venlafaxine HCl 75 MG Tablet 150 MG PO (05:42)
[2021-06-19 05:43] VITALS: BP 176/76; PULSE 61
[2021-06-19 05:43] LABS: Absolute Lymphocyte Count 1.53 X10^3/uL (0.83-4.51); Absolute Neutrophil Count 4.3 X10^3/uL (2.0-7.7); Basophil# 0.05 X10^3/uL; Basophil% 0.7 % (0-1); Eosinophil# 0.31 X10^3/uL; Eosinophils% 4.6 % (0-5); Hematocrit 38.5 % (37-47); Hemoglobin 12.7 g/dL (12.0-15.0); Lymphocyte # 1.53 X10^3/ul (0.83-4.51); Lymphocyte % 22.8 % (19-41); Mean Corpuscular Hgb 30.5 pg (27.0-32.0); Mean Corpuscular Volume 92.5 fL (81-99); Monocyte# 0.56 X10^3/uL; Monocyte% 8.3 % (0-10); NRBC Flagged by Analyzer 0 % (0-5); Neutrophil # 4.26 X10^3/uL (2.7-7.7); Neutrophil % 63.5 % (47-70); Platelet Count 178 K/mm3 (150-450); RBC Distribution Width CV 12.2 % (11.6-14.6); RBC Distribution Width SD 41.6 fl (35.1-43.9); Red Blood Count 4.16 M/mm3 (4.2-5.4); White Blood Count 6.7 K/mm3 (4.4-11.0)
[2021-06-19] MEDS: Nystatin Powder 15gm Bottle 1 APPLIC TOPICAL ×2 (05:43→17:51)
[2021-06-19] MEDS: Polyethylene Glycol 3350 17 GM PACKET PO (05:43)
[2021-06-19] MEDS: Metoprolol Tartrate 100 MG Tablet PO ×2 (05:43→17:51)
[2021-06-19 06:05] LABS: Anion Gap 2 (5-15); BUN 15 mg/dL (7-18); BUN/Creat Ratio 23.9 RATIO (10-20); Calcium,Total 8.6 mg/dL (8.5-10.1); Chloride 105 mmol/L (98-107); Creatinine, Serum 0.63 mg/dL (0.55-1.02); EST Glomerular Filtration Rate 96 mL/min (>60); Est Glom Filt Rate - Afr Amer 116 mL/min (>60); Estimated Creatinine Clearance 32.17 ml/min; Glucose 124 mg/dL (74-106); Potassium 4.2 mmol/L (3.5-5.1); Sodium Level 139 mmol/L (136-145)
[2021-06-19 07:21] VITALS: PULSE 58; RESP 18
[2021-06-19] MEDS: Budesonide Respules 0.5 MG/2 ML AMPUL.NEB. INHALATION ×2 (07:21→19:20)
[2021-06-19] MEDS: Hydroxychloroquine 200 MG Tablet PO ×2 (08:05→17:50)
[2021-06-19] MEDS: Tuberculin,Purif.prot.deriv. 50 TU/ML Vial 0.1 ML ID (09:41)
[2021-06-19 11:00] VITALS: BP 124/68; PULSE 69; RESP 16; TEMP 36.4; O2SAT 92
[2021-06-19 17:51] VITALS: PULSE 69
[2021-06-19 19:20] VITALS: PULSE 76; RESP 16
[2021-06-19] MEDS: traZODone 100 MG Tablet PO (21:42)
[2021-06-19] MEDS: Atorvastatin Calcium 40 MG Tablet PO (21:42)
[2021-06-19] MEDS: ALPRAZolam 0.5 MG Tablet PO (21:43)
[2021-06-19] MEDS: Venlafaxine HCl 75 MG Tablet PO (21:43)
[2021-06-20] MEDS: Losartan Potassium 50 MG Tablet PO (06:10)
[2021-06-20 06:11] VITALS: BP 169/77; PULSE 61
[2021-06-20] MEDS: Nystatin Powder 15gm Bottle 1 APPLIC TOPICAL ×2 (06:11→16:48)
[2021-06-20] MEDS: Senna/Docusate Sodium 1 Tablet PO (06:11)
[2021-06-20] MEDS: Metoprolol Tartrate 100 MG Tablet PO ×2 (06:11→16:47)
[2021-06-20] MEDS: Furosemide 20 MG Tablet PO (06:12)
[2021-06-20] MEDS: Venlafaxine HCl 75 MG Tablet 150 MG PO (06:12)
[2021-06-20 06:53] VITALS: PULSE 58; RESP 14; O2SAT 94
[2021-06-20] MEDS: Budesonide Respules 0.5 MG/2 ML AMPUL.NEB. INHALATION ×2 (06:53→18:55)
[2021-06-20] MEDS: Hydroxychloroquine 200 MG Tablet PO ×2 (08:08→16:46)
[2021-06-20 11:00] VITALS: BP 160/70; PULSE 63; RESP 14; TEMP 36.3; O2SAT 95
[2021-06-20 16:47] VITALS: PULSE 63
[2021-06-20 18:55] VITALS: PULSE 63; RESP 16
[2021-06-20] MEDS: ALPRAZolam 0.5 MG Tablet PO (21:14)
[2021-06-20] MEDS: traZODone 100 MG Tablet PO (21:14)
[2021-06-20] MEDS: Venlafaxine HCl 75 MG Tablet PO (21:14)
[2021-06-20] MEDS: Atorvastatin Calcium 40 MG Tablet PO (21:14)
[2021-06-21 06:13] VITALS: BP 155/79; PULSE 59
[2021-06-21] MEDS: Furosemide 20 MG Tablet PO (06:13)
[2021-06-21] MEDS: Losartan Potassium 50 MG Tablet PO (06:13)
[2021-06-21] MEDS: Venlafaxine HCl 75 MG Tablet 150 MG PO (06:13)
[2021-06-21] MEDS: Senna/Docusate Sodium 1 Tablet PO (06:13)
[2021-06-21] MEDS: Metoprolol Tartrate 100 MG Tablet PO ×2 (06:13→17:49)
[2021-06-21] MEDS: Nystatin Powder 15gm Bottle 1 APPLIC TOPICAL ×2 (06:15→17:50)
[2021-06-21 06:25] LABS: International Normalized Ratio 1.8; Prothrombin Time (Protime)PT. 20.4 SECONDS (11.7-14.9)
[2021-06-21 06:52] VITALS: PULSE 64; RESP 16; O2SAT 94
[2021-06-21] MEDS: Budesonide Respules 0.5 MG/2 ML AMPUL.NEB. INHALATION (06:52)
[2021-06-21] MEDS: Hydroxychloroquine 200 MG Tablet PO ×2 (08:45→17:49)
--- NOTE | 2021-06-21 11:58 | CASEMGMT ---
Social Work Met with patient for initial assessment. Confirmed DNR-CCA, no intubation and completed MOLST form. MOLST communicated to Dr and placed in chart. Explained [facility] insurance with NRD 06/24 and continued stay is not guaranteed with each review. The goal is for pt to return home alone. Her dtr lives nearby and is an RN but works multimedia author. Pt must return to [facility] to return home safely. SW to continue to follow to assist with DC planning. Valarie Triplett, [employer]
--- NOTE | 2021-06-21 12:56 | PHA.CONS1_ITS ---
Progress Note - Pharmacy Subjective: [] Objective: Allergies Penicillins Allergy (Verified 06/17/21 09:47) Anaphylaxis acetaminophen [From Vicodin] Adverse Reaction (Verified 06/17/21 09:47) Itching codeine Adverse Reaction (Verified 06/17/21 09:47) Nausea ezetimibe [From Zetia] Adverse Reaction (Verified 06/17/21 09:47) Itching hydrocodone bitartrate [From Vicodin] Adverse Reaction (Verified 06/17/21 09:47) Itching Rlpdayn-SPQ-XyR Reductase Inhibitor [Nzdmqqk-Ryt-Gse Reductase Inhibitor] Adverse Reaction (Verified 06/17/21 09:47) Other Current Medications Generic Name Dose Route Start Last Admin Trade Name Freq PRN Reason Stop Dose Admin Alprazolam 0.5 mg 06/18/21 18:13 06/20/21 21:14 Alprazolam 0.5 Mg Tablet PO 0.5 mg BID PRN PRN Administration ANXIETY Atorvastatin Calcium 40 mg 06/18/21 22:00 06/20/21 21:14 Atorvastatin Calcium 40 Mg Tablet PO 40 mg QHS WALESKA Administration Bisacodyl 10 mg 06/18/21 16:25 Bisacodyl 5 Mg Tablet PO DAILY PRN PRN Constipation Fluticasone Propionate 1 spray 06/21/21 18:00 Fluticasone 0.05% 1 [place] Nasal.Sry NASAL BID WALESKA Furosemide 20 mg 06/19/21 06:00 06/21/21 06:13 Furosemide 20 Mg Tablet PO 20 mg DAILY WALESKA Administration Hydroxychloroquine Sulfate 200 mg 06/18/21 17:00 06/21/21 08:45 Hydroxychloroquine 200 Mg Tablet PO 200 mg BIDCM WALESKA Administration Losartan Potassium 50 mg 06/19/21 06:00 06/21/21 06:13 Losartan Potassium 50 Mg Tablet PO 50 mg DAILY WALESKA Administration Metoprolol Tartrate 100 mg 06/18/21 18:00 06/21/21 06:13 Metoprolol Tartrate 100 Mg Tablet PO 100 mg BID WALESKA Administration Nystatin 1 applic 06/18/21 20:15 06/21/21 06:15 Nystatin Powder 15gm Bottle TOPICAL 1 applic BID WALESKA Administration Protocol Polyethylene Glycol 17 gm 06/19/21 06:00 06/21/21 06:14 Polyethylene Glycol 3350 17 Gm Packet PO Not Given DAILY WALESKA Senna/Docusate Sodium 1 tablet 06/18/21 18:00 06/21/21 06:13 Senna/Docusate Sodium 1 Tablet PO 1 tablet BID WALESKA Administration Sodium Chloride 10 - 40 ml 06/18/21 16:43 0.9% Saline Lock 10 Ml Syringe IV UD PRN SALINE FLUSH Tramadol HCl 50 mg 06/18/21 16:25 Tramadol 50 Mg Tablet PO Q6H PRN PRN Pain Score 4-10 Trazodone HCl 100 mg 06/18/21 22:00 06/20/21 21:14 Trazodone 100 Mg Tablet PO 100 mg QHS WALESKA Administration Tuberculin PPD 0.1 ml 06/26/21 10:00 Tuberculin,Purif.Prot.Deriv. 50 Tu/Ml Vial ID 06/26/21 10:01 X1 ONE Venlafaxine HCl 150 mg 06/19/21 06:00 06/21/21 06:13 Venlafaxine Hcl 75 Mg Tablet PO 150 mg DAILY WALESKA Administration Venlafaxine HCl 75 mg 06/18/21 22:00 06/20/21 21:14 Venlafaxine Hcl 75 Mg Tablet PO 75 mg QHS WALESKA Administration Warfarin Sodium 2 mg/ Warfarin 4.5 mg 06/21/21 17:00 Sodium 2.5 mg PO [facility] Problem List (Last Reviewed 06/18/21 @ 16:[address] Joseph Rouse MD) Depression (Acute) Allergic rhinitis (Acute) Coronary artery disease (Acute) Hyperlipidemia (Acute) Insomnia (Acute) Edema (Acute) Atrial fibrillation (Acute) Left hip pain (Acute) Left rotator cuff tear arthropathy (Acute) Debility (Acute) Fall (Acute) Vital Signs Temp Pulse Resp BP Pulse Ox 97.4 F L 64 16 155/79 H 94 06/20/21 11:00 06/21/21 06:52 06/21/21 06:52 06/21/21 06:13 06/21/21 06:52 Oxygen Delivery Method Room Air Weight: 79.946 kg Body Mass Index (BMI) 33.3 Sodium 139 mmol/L (136-145) 06/19/21 05:02 Potassium 4.2 mmol/L (3.5-5.1) 06/19/21 05:02 Chloride 105 mmol/L (98-107) 06/19/21 05:02 Carbon Dioxide 32.0 mmol/L (21.0-32.0) 06/19/21 05:02 Anion Gap 2 (5-15) L 06/19/21 05:02 BUN 15 mg/dL (7-18) 06/19/21 05:02 Creatinine 0.63 mg/dL (0.55-1.02) 06/19/21 05:02 Est GFR (MDRD) Af Amer 116 mL/min (>60) 06/19/21 05:02 Est GFR (MDRD) Non-Af 96 mL/min (>60) 06/19/21 05:02 BUN/Creatinine Ratio 23.9 RATIO (10-20) H 06/19/21 05:02 Glucose 124 mg/dL (74-106) H 06/19/21 05:02 Assessment/Plan: 1) Pain: Tramadol 50mg po q6h prn for pain 4-10. Please continue to monitor prn usage and for signs/symptoms of increased pain. 2) Hyperlipidemia: Atorvastatin 40mg po qhs. Pts most recent Lipid panel and LFTs are within normal limits. Please continue to monitor. 3) Hypertension, CAD, Afib: Metoprolol 100mg po bid, Losartan 50mg po daily, [place] rfarin 4.5mg po daily at 1700. Pts most recent INR was 1.8. Please continue to monitor. Pt's BUN is 15, SrCr is 0.63, and K+ is 4.2. Please continue to monitor labs. Pts average pulse rate is 64.5, pulse rhythm is regular, and strength is normal. Please continue to monitor pts pulse. Pts average blood pressure is 149.4/72.6. Please continue to monitor pts blood pressure. 4) Edema: Furosemide 20mg po daily. Pts Na is 139, K+ is 4.2. Please continue to monitor labs while pt is on Furosemide. Thanks *5) Rheumatoid Arthritis: Hydroxychloroquine 200mg po bid with food. Please ensure that pt is receiving scheduled ophthalmologic exams while she is taking Hydroxychloroquine. Thanks Psychotropic Medications: Trazodone 100mg po qhs for insomnia. Please see physicians progress not about GDR Venlafaxine 150mg po qam and 75mg qhs. Dose recently increased 06/19/21. GDR not recommended Unnecessary Medications: none *Bowel Regimen: Bisacodyl 10 mg po daily prn for constipation, Miralax 17gm po daily, Senna/Docusate 1 tablet po bid. Pt has refused 2 out of 3 Miralax doses. Please continue to monitor pt refusals. If pt continues to refuse, please consider changing Miralax to prn. Thanks Date of Note:: 06/21/21
--- NOTE | 2021-06-21 14:30 | NURSING ---
Resp therapy spoke with pt regarding pulmicort order, pt denies using inhaler at home, never needed. pt does have allergies and uses flonase nasal spray. new order received from dr alcazar.
[2021-06-21 14:58] VITALS: BP 116/70; PULSE 69; RESP 17; TEMP 37.2; O2SAT 96
--- NOTE | 2021-06-21 16:51 | NURSING ---
daughter brought in covid immunization card, copied and placed in front of chart. pt removed from quarantine.
[2021-06-21 17:49] VITALS: BP 116/70; PULSE 69
[2021-06-21] MEDS: Fluticasone 0.05% 1 SPRAY NASAL.SRY NASAL (17:50)
[2021-06-21] MEDS: traZODone 100 MG Tablet PO (21:41)
[2021-06-21] MEDS: Atorvastatin Calcium 40 MG Tablet PO (21:42)
[2021-06-21] MEDS: Venlafaxine HCl 75 MG Tablet PO (21:42)
[2021-06-21] MEDS: ALPRAZolam 0.5 MG Tablet PO (21:44)
[2021-06-22 06:14] VITALS: BP 115/67; PULSE 65
[2021-06-22] MEDS: Losartan Potassium 50 MG Tablet PO (06:14)
[2021-06-22] MEDS: Metoprolol Tartrate 100 MG Tablet PO ×2 (06:14→17:18)
[2021-06-22] MEDS: Venlafaxine HCl 75 MG Tablet 150 MG PO (06:14)
[2021-06-22] MEDS: Furosemide 20 MG Tablet PO (06:14)
[2021-06-22] MEDS: Fluticasone 0.05% 1 SPRAY NASAL.SRY NASAL ×2 (06:15→17:17)
[2021-06-22] MEDS: Nystatin Powder 15gm Bottle 1 APPLIC TOPICAL (06:15)
[2021-06-22] MEDS: Hydroxychloroquine 200 MG Tablet PO ×2 (08:25→17:18)
[2021-06-22 12:45] VITALS: PULSE 67; RESP 18; O2SAT 94
[2021-06-22 13:35] VITALS: BP 140/69; PULSE 67; RESP 18; TEMP 37.1; O2SAT 94
[2021-06-22] MEDS: Senna/Docusate Sodium 1 Tablet PO (17:17)
[2021-06-22 17:18] VITALS: PULSE 67
[2021-06-22] MEDS: ALPRAZolam 0.5 MG Tablet PO (20:05)
[2021-06-22] MEDS: Atorvastatin Calcium 40 MG Tablet PO (20:06)
[2021-06-22] MEDS: Venlafaxine HCl 75 MG Tablet PO (20:07)
[2021-06-22] MEDS: traZODone 100 MG Tablet PO (20:07)
[2021-06-23] MEDS: Fluticasone 0.05% 1 SPRAY NASAL.SRY NASAL ×2 (05:40→17:55)
[2021-06-23 05:41] VITALS: BP 167/73; PULSE 66
[2021-06-23] MEDS: Venlafaxine HCl 75 MG Tablet 150 MG PO (05:41)
[2021-06-23] MEDS: Losartan Potassium 50 MG Tablet PO (05:41)
[2021-06-23] MEDS: Nystatin Powder 15gm Bottle 1 APPLIC TOPICAL ×2 (05:41→17:55)
[2021-06-23] MEDS: Senna/Docusate Sodium 1 Tablet PO ×2 (05:41→17:54)
[2021-06-23] MEDS: Furosemide 20 MG Tablet PO (05:41)
[2021-06-23] MEDS: Metoprolol Tartrate 100 MG Tablet PO ×2 (05:41→17:56)
[2021-06-23] MEDS: Hydroxychloroquine 200 MG Tablet PO ×2 (08:53→17:54)
--- NOTE | 2021-06-23 09:31 | CASEMGMT ---
Social Work SW completed the BIMS(14) and PHQ-9(4) with pt. Pt states has depression at her baseline, has had it my whole life. Pt states is on medication and it helps. She states she feels she is managing well with her depression at this time, and is glad to be here in TCU. She states she has a supportive daughter, and a supportive facilitator who has become a friend. She states her daughter stays over every Monday, and her facilitator checks on her daily. Pt also has a cat named Wright, and she is glad to have the cat. SW will continue to follow for discharge needs. SHERICE Erickson
[2021-06-23 11:00] VITALS: BP 144/74; PULSE 67; RESP 14; TEMP 36.1; O2SAT 95
--- NOTE | 2021-06-23 14:07 | CASEMGMT ---
Addendum entered by Valarie Triplett 06/23/21 15:04: Patient also received services from [facility]. Updated Ronnie on DC. Addendum entered by Valarie Triplett 06/23/21 15:01: [facility] was too far from DC date. Pt agreeable to [facility]. Referral made. Original Note: Social Work IDT met with patient and dtr for care plan meeting. Discussed patient's progress in PT/OT and nursing. Pt progressing well. Explained [facility] insurance with NRD 06/24 and continued stay is not guaranteed. Inquired about setting DC date for pt. Pt will DC home alone and has 2 steps to enter. Pt is ready to DC 06/26 - dtr works manager multimedia and is only available to transport and transition pt home then. IDT agreeable. Pt requesting [facility] PT/OT. Provided list of nonskilled HHC to dtr, per her request. Plan: DC home alone 06/26, [facility] PT/OT RAUL Mi
--- NOTE | 2021-06-23 15:10 | CHAPLAIN ---
Type of Pastoral Visit _x__ Initial Visit ___ Follow-up Visit ___ On-call Visit ___ General Patient Visit ___ Spiritual Assessment ___ Family Conference ___ Bereavement ___ Rapid Response ___ Code Blue ___ Other (describe below) Pastoral Care Referral From _x__ Patient ___ Family ___ Nurse ___ Physician ___ Commercial Illustrator ___ Manager Relocation ___ Other (describe below) Sacrament/Intervention _x__ Active listening ___ Anointing ___ Christian ___ Bereavement ___ Communion ___ Pauline exploration ___ _x__ Life review _x__ Prayer ___ Reconciliation ___ Sacrament of Sick _x__ Supportive presence ___ Wedding ___ Other (describe below) Pastoral Comments patient speaks of her goal of gaining balance and returning home soon; pt was four years ago and discussion about adjustments; pt has daughters for support and is a member of the local [facility] buddhism
[2021-06-23 17:56] VITALS: PULSE 67
[2021-06-23] MEDS: Arthritis Pain Compound 60 CLICK TUBE TOPICAL (18:38)
--- NOTE | 2021-06-23 19:41 | DS.PCM_ITS ---
Providers Date of Admission: 06/18/21 Primary Care Physician: Dr. Joao Simon MD Reason For Visit: DEBILITY/FALLS Diagnosis Discharge Diagnosis (1) Debility: Status: Acute Code(s): R53.81 - Other malaise (2) Fall: Status: Acute Code(s): W19.XXXA - Unspecified fall, initial encounter (3) Left rotator cuff tear arthropathy: Status: Acute Code(s): M75.102 - Unspecified rotator cuff tear or rupture of left shoulder, not specified as traumatic; M12.812 - Other specific arthropathies, not elsewhere classified, left shoulder (4) Left hip pain: Status: Acute Code(s): M25.552 - Pain in left hip (5) Atrial fibrillation: Status: Acute Code(s): I48.91 - Unspecified atrial fibrillation (6) Edema: Status: Acute Code(s): R60.9 - Edema, unspecified (7) Insomnia: Status: Acute Code(s): G47.00 - Insomnia, unspecified (8) Hyperlipidemia: Status: Acute Code(s): E78.5 - Hyperlipidemia, unspecified (9) Coronary artery disease: Status: Acute Code(s): I25.10 - Atherosclerotic heart disease of [place] coronary artery without angina pectoris (10) Allergic rhinitis: Status: Acute Code(s): J30.9 - Allergic rhinitis, unspecified (11) Depression: Status: Acute Code(s): F32.A - Depression, unspecified Medications at Discharge Home Medications furosemide 20 mg PO DAILY 04/20/13 trazodone 100 mg PO QHS 04/20/13 atorvastatin 40 mg PO QHS 10/01/16 metoprolol tartrate 100 mg PO BID 07/31/17 losartan 50 mg PO DAILY 02/14/19 venlafaxine 75 mg PO BID 02/14/19 hydroxychloroquine 200 mg PO BID 08/09/20 alprazolam 0.5 mg PO BID PRN PRN #0 tab 06/23/21 fluticasone propionate 1 spray NASAL BID #0 g 06/23/21 warfarin 5 mg PO DAILY #0 tab 06/23/21 Hospital Course Operations None Procedures None Summary of Care Provided Minutes Spent on Discharge: 35 Hospital Course: 85 year old female with below past medical history hospitalized for fall, left shoulder pain, left hip pain, no fractures, admitted to TCU with debility, here for rehabilitation, strengthening, prior to discharge home alone. Discharge home alone 06/26/2021, [facility] PT/OT. Physical Exam Const alert and oriented x3 General Appearance: cooperative HEENT normocephalic Eyes PERRL and EOMs intact bilaterally Neck supple, no JVD and no carotid bruits Resp normal respiratory effort, normal air movement and clear to auscultation bilaterally Cardio regular rate and regular rhythm GI normal to inspection, nondistended, normoactive bowel sounds, non-tender and non-distended Extremity normal capillary refill General Extremity: Negative for edema Skin no rashes or lesions noted General Skin Exam: no breakdown Psych affect normal Appearance: appropriate Weight / BMI Weight Weight: 77.337 kg Body Mass Index (BMI) 33.3 ABG / Lab / Microbiology Data Result Diagrams: 06/19/21 05:02 06/19/21 05:02 D/C Instructions Discharge Diet: No restrictions Discharge Activity: Return to Normal Activity, May Shower and Use Walker Weight Bearing Status: Weight bearing as tolerated Call your doctor if you observe: Fever of 101 or Higher, Inability to urinate, Inability to have a bowel movement, Shortness of breath, Dizziness, Fainting spells, Swelling in the ankles, Chest pain and Uncontrolled pain Additional Instructions: Discharge home alone 06/26/2021, [facility] PT/OT. Please Follow Up With: Joao Simon When: 1 week. Meaningful Use Info Meaningful Use Diagnoses (Choose all that apply): None applicable Discharge Plan Admission Admit Date/Time: 06/18/21 15:42 Primary Reason for Your Visit: Debility. Attending Provider: Joseph Rouse Chi Primary Care Provider: Joao Simon Instructions Additional Instructions / Restrictions: Discharge home alone 06/26/2021, [facility] PT/OT. Discharge Orders/Prescriptions Prescriptions: New alprazolam 0.5 mg Tablet 0.5 mg PO BID PRN PRN (Reason: Anxiety) Qty: 0 RF: 0 fluticasone propionate 50 mcg/actuation [place],Suspension 1 spray NASAL BID Qty: 0 RF: 0 Continued trazodone 50 MG tablet 100 mg PO QHS RF: 0 furosemide 20 MG tablet 20 mg PO DAILY RF: 0 atorvastatin 40 MG tablet 40 mg PO QHS RF: 0 metoprolol tartrate 25 MG tablet 100 mg PO BID RF: 0 losartan 50 MG tablet 50 mg PO DAILY RF: 0 venlafaxine 75 MG tablet 75 mg PO BID RF: 0 hydroxychloroquine 200 MG tablet 200 mg PO BID RF: 0 Changed warfarin 5 MG tablet 5 mg PO DAILY Qty: 0 RF: 0 Discontinued fluticasone furoate 50 MCG blister with device 50 mcg IH DAILY RF: 0 aspirin 81 MG tablet,delayed release (DR/EC) 81 mg PO DAILY RF: 0 Referrals / Follow Up: Joao Simon MD [Primary Care Provider] - Disposition Disposition (needs filled in before D/C Order can be placed): Home Health Service
[2021-06-23] MEDS: ALPRAZolam 0.5 MG Tablet PO (20:33)
[2021-06-23] MEDS: Venlafaxine HCl 75 MG Tablet PO (20:33)
[2021-06-23] MEDS: Atorvastatin Calcium 40 MG Tablet PO (20:33)
[2021-06-23] MEDS: traZODone 100 MG Tablet PO (20:33)
[2021-06-24] MEDS: Fluticasone 0.05% 1 SPRAY NASAL.SRY NASAL ×2 (05:24→16:42)
[2021-06-24 05:25] VITALS: BP 169/66; PULSE 67
[2021-06-24] MEDS: Senna/Docusate Sodium 1 Tablet PO ×2 (05:25→16:41)
[2021-06-24] MEDS: Losartan Potassium 50 MG Tablet PO (05:25)
[2021-06-24] MEDS: Venlafaxine HCl 75 MG Tablet 150 MG PO (05:25)
[2021-06-24] MEDS: Metoprolol Tartrate 100 MG Tablet PO ×2 (05:25→16:44)
[2021-06-24] MEDS: Furosemide 20 MG Tablet PO (05:26)
[2021-06-24] MEDS: Arthritis Pain Compound 60 CLICK TUBE TOPICAL ×2 (05:26→16:40)
[2021-06-24] MEDS: Nystatin Powder 15gm Bottle 1 APPLIC TOPICAL ×2 (05:27→16:41)
[2021-06-24 06:07] LABS: International Normalized Ratio 1.4; Prothrombin Time (Protime)PT. 16.2 SECONDS (11.7-14.9)
[2021-06-24] MEDS: Hydroxychloroquine 200 MG Tablet PO ×2 (08:36→16:40)
[2021-06-24 11:00] VITALS: BP 140/73; PULSE 71; RESP 16; TEMP 36.1; O2SAT 97
[2021-06-24 16:44] VITALS: PULSE 71
[2021-06-24] MEDS: Atorvastatin Calcium 40 MG Tablet PO (20:10)
[2021-06-24] MEDS: traZODone 100 MG Tablet PO (20:10)
[2021-06-24] MEDS: Venlafaxine HCl 75 MG Tablet PO (20:10)
[2021-06-24] MEDS: ALPRAZolam 0.5 MG Tablet PO (20:12)
[2021-06-25] MEDS: Furosemide 20 MG Tablet PO (05:58)
[2021-06-25 05:59] VITALS: BP 162/71; PULSE 68
[2021-06-25] MEDS: Metoprolol Tartrate 100 MG Tablet PO ×2 (05:59→17:07)
[2021-06-25] MEDS: Losartan Potassium 50 MG Tablet PO (05:59)
[2021-06-25] MEDS: Venlafaxine HCl 75 MG Tablet 150 MG PO (05:59)
[2021-06-25] MEDS: Senna/Docusate Sodium 1 Tablet PO (05:59)
[2021-06-25] MEDS: Arthritis Pain Compound 60 CLICK TUBE TOPICAL ×2 (05:59→17:08)
[2021-06-25] MEDS: Fluticasone 0.05% 1 SPRAY NASAL.SRY NASAL ×2 (06:02→17:08)
[2021-06-25] MEDS: Hydroxychloroquine 200 MG Tablet PO ×2 (08:02→17:07)
[2021-06-25] MEDS: Nystatin Powder 15gm Bottle 1 APPLIC TOPICAL ×2 (08:03→17:08)
[2021-06-25 14:03] VITALS: BP 147/76; PULSE 64; RESP 18; TEMP 37; O2SAT 92
[2021-06-25 17:07] VITALS: PULSE 64
[2021-06-25] MEDS: Venlafaxine HCl 75 MG Tablet PO (21:22)
[2021-06-25] MEDS: traZODone 100 MG Tablet PO (21:22)
[2021-06-25] MEDS: Atorvastatin Calcium 40 MG Tablet PO (21:22)
[2021-06-25] MEDS: ALPRAZolam 0.5 MG Tablet PO (21:25)
[2021-06-26 06:00] VITALS: BP 141/64; PULSE 69
[2021-06-26] MEDS: Venlafaxine HCl 75 MG Tablet 150 MG PO (06:00)
[2021-06-26] MEDS: Fluticasone 0.05% 1 SPRAY NASAL.SRY NASAL (06:00)
[2021-06-26] MEDS: Arthritis Pain Compound 60 CLICK TUBE TOPICAL (06:00)
[2021-06-26] MEDS: Metoprolol Tartrate 100 MG Tablet PO (06:00)
[2021-06-26] MEDS: Nystatin Powder 15gm Bottle 1 APPLIC TOPICAL (06:00)
[2021-06-26] MEDS: Furosemide 20 MG Tablet PO (06:00)
[2021-06-26] MEDS: Losartan Potassium 50 MG Tablet PO (06:00)
[2021-06-26] MEDS: Hydroxychloroquine 200 MG Tablet PO (08:00)
[2021-06-26 16:31] LABS: Anion Gap 3 (5-15); BUN 13 mg/dL (7-18); BUN/Creat Ratio 20.4 RATIO (10-20); Calcium,Total 8.6 mg/dL (8.5-10.1); Chloride 105 mmol/L (98-107); Creatinine, Serum 0.64 mg/dL (0.55-1.02); EST Glomerular Filtration Rate 94 mL/min (>60); Est Glom Filt Rate - Afr Amer 114 mL/min (>60); Estimated Creatinine Clearance 32.17 ml/min; Glucose 122 mg/dL (74-106); Potassium 3.8 mmol/L (3.5-5.1); Sodium Level 140 mmol/L (136-145)
[2021-06-26 21:47] LABS: Absolute Lymphocyte Count 2.42 X10^3/uL (0.83-4.51); Basophil# 0.06 X10^3/uL; Basophil% 0.7 % (0-1); Eosinophil# 0.31 X10^3/uL; Eosinophils% 3.6 % (0-5); Hematocrit 48.4 % (37-47); Hemoglobin 15.7 g/dL (12.0-15.0); Lymphocyte # 2.42 X10^3/ul (0.83-4.51); Lymphocyte % 28.3 % (19-41); Mean Corp Hgb Conc 32.4 g/dL (32-36); Mean Corpuscular Hgb 30.5 pg (27.0-32.0); Mean Platelet Vol. 10.2 fl (6.2-12.0); Monocyte# 0.72 X10^3/uL; Monocyte% 8.4 % (0-10); NRBC Flagged by Analyzer 0 % (0-5); Neutrophil # 5.03 X10^3/uL (2.7-7.7); Neutrophil % 58.8 % (47-70); Platelet Count 234 K/mm3 (150-450); RBC Distribution Width CV 12.7 % (11.6-14.6); RBC Distribution Width SD 43.7 fl (35.1-43.9); Red Blood Count 5.15 M/mm3 (4.2-5.4); White Blood Count 8.6 K/mm3 (4.4-11.0)
--- NOTE | 2021-06-30 15:28 | MDS.RN ---
Information for the mds was obtained from review of the clinical record, interview of resident, staff, and direct observation of resident's care. Information systems, billing dept. and [facility] aware PDPM codes not generating for finalized mds assessment.
== END 2021-06-26 10:00 | disposition home health service (06) | DRG 950 ==
PROVIDERS: Admitting Provider Family Medicine Geriatric Medicine; PCP Family Medicine; Visit Provider Family Medicine Geriatric Medicine
DX: S46.012D Strain of muscle(s) and tendon(s) of the rotator cuff of left shoulder, subsequent encounter (principal); E78.5 Hyperlipidemia, unspecified; I48.91 Unspecified atrial fibrillation; I25.10 Atherosclerotic heart disease of native coronary artery without angina pectoris; M25.552 Pain in left hip; I10 Essential (primary) hypertension; I25.2 Old myocardial infarction; J98.4 Other disorders of lung; F41.9 Anxiety disorder, unspecified; W19.XXXD Unspecified fall, subsequent encounter; F32.A Depression, unspecified; G47.00 Insomnia, unspecified; Z87.891 Personal history of nicotine dependence; Z79.899 Other long term (current) drug therapy; Z79.82 Long term (current) use of aspirin
CPT/HCPCS: 36415; 80048; 85025; 85610; 87426; 94640; 97110; 97116; 97162; 97166; 97530; 97535; 97802

== ENCOUNTER 2021-07-14 08:41 | Outpatient (CLI) | payer MEDICARE, SELFPAY ==
[2021-07-14 11:31] LABS: INR Fingerstick 1.5; Prothrombin Time Fingerstick 18.2 SEC (11.9-14.4)
== END 2021-07-14 23:59 | disposition home or self-care (01) ==
LOC: LAB 08:44
PROVIDERS: PCP Family Medicine; Visit Provider Family Medicine
DX: I48.91 Unspecified atrial fibrillation (principal)
CPT/HCPCS: 36416; 85610

== ENCOUNTER 2021-07-28 04:19 | Outpatient (CLI) | payer MEDICARE, SELFPAY ==
[2021-07-28 10:46] LABS: INR Fingerstick 1.2; Prothrombin Time Fingerstick 15.1 SEC (11.7-14.9)
== END 2021-07-28 23:59 | disposition home or self-care (01) ==
LOC: LAB 04:20
PROVIDERS: PCP Family Medicine; Referring Provider Family Medicine; Visit Provider Family Medicine
DX: I48.91 Unspecified atrial fibrillation (principal)
CPT/HCPCS: 36416; 85610

== ENCOUNTER 2021-08-11 09:44 | Outpatient (CLI) | payer MEDICARE, SELFPAY ==
[2021-08-11 10:55] LABS: INR Fingerstick 1.3; Prothrombin Time Fingerstick 15.7 SEC (11.7-14.9)
== END 2021-08-11 23:59 | disposition home or self-care (01) ==
LOC: LAB 09:45
PROVIDERS: PCP Family Medicine; Visit Provider Family Medicine
DX: I48.91 Unspecified atrial fibrillation (principal)
CPT/HCPCS: 36416; 85610

== ENCOUNTER 2021-08-27 08:05 | Outpatient (CLI) | payer MEDICARE, SELFPAY ==
[2021-08-27 10:41] LABS: INR Fingerstick 2.4; Prothrombin Time Fingerstick 27.5 SEC (11.7-14.9)
== END 2021-08-27 23:59 | disposition home or self-care (01) ==
LOC: LAB 08:07
PROVIDERS: PCP Family Medicine; Visit Provider Family Medicine
DX: I48.91 Unspecified atrial fibrillation (principal)
CPT/HCPCS: 36416; 85610

== ENCOUNTER 2021-09-14 08:54 | Outpatient (CLI) | payer MEDICARE, SELFPAY ==
[2021-09-14 11:26] LABS: INR Fingerstick 2.1; Prothrombin Time Fingerstick 25.1 SEC (11.7-14.9)
== END 2021-09-14 23:59 | disposition home or self-care (01) ==
LOC: LAB 08:56
PROVIDERS: PCP Family Medicine; Visit Provider Family Medicine
DX: I48.91 Unspecified atrial fibrillation (principal)
CPT/HCPCS: 36416; 85610

== ENCOUNTER → 2021-09-29 | Outpatient (CLI) | payer MEDICARE, SELFPAY ==
[2021-09-29 17:42] LABS: Anion Gap 7 (5-15); BNP,B-Type NATRIURETIC PEPTIDE 372.7 pg/mL (0-100); BUN 11 mg/dL (7-18); BUN/Creat Ratio 17.1 RATIO (10-20); Calcium,Total 8.7 mg/dL (8.5-10.1); Chloride 100 mmol/L (98-107); Creatinine, Serum 0.64 mg/dL (0.55-1.02); EST Glomerular Filtration Rate 94 mL/min (>60); Est Glom Filt Rate - Afr Amer 113 mL/min (>60); Glucose 87 mg/dL (74-106); Potassium 3.6 mmol/L (3.5-5.1); Sodium Level 138 mmol/L (136-145)
== END | disposition home or self-care (01) ==
LOC: LAB 15:26
PROVIDERS: PCP Family Medicine; Visit Provider Internal Medicine Cardiovascular Disease
DX: I50.32 Chronic diastolic (congestive) heart failure (principal); R06.00 Dyspnea, unspecified
CPT/HCPCS: 36415; 80048; 83880

== ENCOUNTER → 2021-10-06 | Outpatient (CLI) | payer MEDICARE, SELFPAY ==
[2021-10-06 10:26] LABS: INR Fingerstick 1.6; Prothrombin Time Fingerstick 19.7 SEC (11.7-14.9)
== END | disposition home or self-care (01) ==
LOC: LAB 08:19
PROVIDERS: PCP Family Medicine; Referring Provider Family Medicine; Visit Provider Family Medicine
DX: I48.91 Unspecified atrial fibrillation (principal)
CPT/HCPCS: 36416; 85610

== ENCOUNTER → 2021-10-13 | Outpatient (CLI) | payer MEDICARE, SELFPAY ==
[2021-10-13 11:34] LABS: International Normalized Ratio 3.1; Prothrombin Time (Protime)PT. 31.8 SECONDS (11.7-14.9)
== END | disposition home or self-care (01) ==
PROVIDERS: PCP Family Medicine; Visit Provider Family Medicine
DX: I48.91 Unspecified atrial fibrillation (principal)
CPT/HCPCS: 36415; 85610

== ENCOUNTER → 2021-10-21 | Outpatient (CLI) | payer MEDICARE, SELFPAY ==
[2021-10-21 11:30] LABS: International Normalized Ratio 2.1; Prothrombin Time (Protime)PT. 23.2 SECONDS (11.7-14.9)
[2021-10-21 11:56] LABS: Anion Gap 4 (5-15); BUN 15 mg/dL (7-18); BUN/Creat Ratio 19.7 RATIO (10-20); Calcium,Total 9.1 mg/dL (8.5-10.1); Chloride 99 mmol/L (98-107); Creatinine, Serum 0.76 mg/dL (0.55-1.02); EST Glomerular Filtration Rate 77 mL/min (>60); Est Glom Filt Rate - Afr Amer 93 mL/min (>60); Glucose 108 mg/dL (74-106); Potassium 4.2 mmol/L (3.5-5.1); Sodium Level 137 mmol/L (136-145)
== END | disposition home or self-care (01) ==
LOC: LAB 09:27
PROVIDERS: Internal Medicine Cardiovascular Disease; PCP Family Medicine; Visit Provider Family Medicine
DX: I48.91 Unspecified atrial fibrillation (principal)
CPT/HCPCS: 36415; 80048; 85610

== ENCOUNTER 2021-11-02 11:47 | Observation (INO) | payer MEDICARE, SELFPAY ==
[2021-11-02] VITALS (11 sets, daily range): BP systolic 116–169; BP diastolic 66–86; PULSE 66–87; RESP 17–20; TEMP 36.6–37.1; O2SAT 93–98; BMI 32.8; BMI 32.1
--- NOTE | 2021-11-02 12:10 | EKG12_ITS ---
Test Reason : CONFUSION Blood Pressure : / mmHG Vent. Rate : 074 BPM Atrial Rate : 074 BPM P-R Int : 160 ms QRS Dur : 102 ms QT Int : 406 ms P-R-T Axes : -09 002 029 degrees QTc Int : 450 ms Sinus rhythm with Fusion complexes Left ventricular hypertrophy with repolarization abnormality Abnormal ECG Confirmed by CALLI HOLLAND, LUCILA ([id number]), brands editor DELISA MAYA ([id number]) on 11/03/2021 9:02:26 AM Referred By: REJI Confirmed By:LUCILA MCCURDY MD
--- NOTE | 2021-11-02 12:10 | CT_ITS ---
STUDY: CT BRAIN WITHOUT CONTRAST REASON FOR EXAM: 86-year-old female patient with history of confusion following a fall., RADIATION DOSAGE (If Supplied By Facility): CTDIvol = ( 44.99 ) mGy, DLP = ( 762.36 ) mGycm TECHNIQUE: Transaxial CT imaging of the brain was performed without administration of intravenous contrast material. Individualized dose optimization techniques were used for this CT. COMPARISON: Comparison is made with prior study dated 06/17/2021. FINDINGS: Normal soft tissue structures. Normal calvarium. There is mild cerebral atrophy with widening of the extra-axial spaces and ventricular dilatation. There are areas of decreased attenuation within the white matter tracts of the supratentorial brain, consistent with microvascular disease changes. There are small punctate calcifications of the basal ganglia which are seen in the aging brain as a normal variant. Normal brainstem. Normal cerebellum. There is no intracranial hemorrhage. There are no findings of an acute ischemic infarction. Normal visualized paranasal sinuses. CT/Brain/Head without Contrast IMPRESSION: Chronic involutional changes of the brain. Electronically Signed: Agapito Jimenez MD at 13:36 EDT ,
--- NOTE | 2021-11-02 12:10 | RAD_ITS ---
STUDY: X-RAY CHEST REASON FOR EXAM: 86-year-old female patient with history of shortness of breath., TECHNIQUE: Single AP portable view of the chest. COMPARISON: Comparison is made with prior study dated 07/24/2020. FINDINGS: EKG electrodes are seen. The lungs are clear and expanded. There is no demonstrated pleural abnormality. Sternal cerclage wires and vascular clips are present from a prior sternotomy and coronary artery bypass graft procedure (CABG). Normal mediastinum and seu. Normal visualized pulmonary arteries. There is atherosclerotic calcification of the aortic arch with tortuosity. Normal visualized thoracic spine. Normal visualized ribs, clavicles, and shoulders. There is no demonstrated abnormality of the visualized soft tissue structures of the upper abdomen. RAD/Chest 1 View (Portable) IMPRESSION: No acute abnormality is seen. Electronically Signed: Agapito Jimenez MD at 13:36 EDT ,
--- NOTE | 2021-11-02 12:12 | EX.ED.DYSGE1 ---
HPI History of Present Illness Chief Complaint: Confusion Informant: patient and family Onset/Context/Timing Onset: Days Context: Gradual Onset Timing: Waxes and wanes Current Severity: Mild Maximum Severity: Moderate Narrative Narrative: Patient presents with daughter for evaluation secondary to increased confusion. She did have a fall on Monday and was evaluated by EMS. She was not transported. She denies hitting her head or loss of consciousness. She is on Coumadin. Daughter feels that she is been slightly more confused since that time. Patient's had some mild nausea. Daughter does not believe that her mother ate last night. 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 Nonrheumatic aortic (valve) stenosis Parkinsonian syndrome Paroxysmal atrial fibrillation Postoperative atrial fibrillation (04/04/13) Recurrent deep vein thrombosis (DVT) Restrictive airway disease Rheumatoid arthritis Home Medications atorvastatin 40 mg PO QHS 10/01/16 [History Last Taken Unknown] venlafaxine 75 mg PO BID 02/14/19 [History Last Taken Unknown] hydroxychloroquine 200 mg PO BID 08/09/20 [History Last Taken Unknown] alprazolam 0.5 mg PO BID PRN PRN #0 tab 06/23/21 [Rx Last Taken Unknown] warfarin 5 mg PO DAILY #0 tab 06/23/21 [Rx Last Taken 09/30/16] albuterol sulfate 90 mcg/actuation aerosol inhaler 2 puff INHALATION Q6H PRN 09/23/21 [History Last Taken Unknown] losartan 100 mg tablet 100 mg PO DAILY tab 09/23/21 [History Last Taken Unknown] trazodone 100 mg tablet 100 mg PO QHS tab 09/23/21 [History Last Taken Unknown] warfarin 1 mg tablet 1 mg PO DAILY tab 09/23/21 [History Last Taken Unknown] metoprolol tartrate 100 mg tablet 100 mg PO BID 09/29/21 [History Last Taken Unknown] hydrochlorothiazide 25 mg tablet 25 mg PO DAILY #90 tab 09/30/21 [Rx Last Taken Unknown] Allergy/AdvReac Type Severity Reaction Status Date / Time Penicillins Allergy Anaphylaxis Verified 11/02/21 11:51 acetaminophen [From Vicodin] AdvReac Itching Verified 11/02/21 11:51 codeine AdvReac Nausea Verified 11/02/21 11:51 ezetimibe [From Zetia] AdvReac Itching Verified 11/02/21 11:51 hydrocodone bitartrate AdvReac Itching Verified 11/02/21 11:51 [From Vicodin] Qqwrepf-MVY-EgV Reductase AdvReac Other Verified 11/02/21 11:51 Inhibitor [Tpxdlzu-Apq-Rrp Reductase Inhibitor] Surgical History 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) History of appendectomy History of cardioversion (10/01/16) History of coronary artery stent placement (12/2003) History of left heart catheterization (10/13/15) Social History household members: none Smoking Status: Former smoker how long ago did patient quit smokin, 1ppd second hand exposure: Yes ROS ROS ED Constitutional Constitutional ED: Denies chills or fever(s) Eyes Eyes: Denies change in vision ENT ENT ED: Denies sore throat Cardiovascular Cardiovascular: Denies chest pain Respiratory/Chest Respiratory/Chest: Denies cough or dyspnea Gastrointestinal Gastrointestinal: Reports nausea; Denies abdominal pain, diarrhea or vomiting Genitourinary Genitourinary ED: Denies dysuria Musculoskeletal Musculoskeletal: Denies back pain or neck pain Integumentary Denies rash Neurologic Neurologic: Denies headache(s) or weakness Allergic/Immunologic Allergic/Immunologic ED: Denies urticaria EXAM Physical Exam Const Vital Signs: 11/02/21 11:48 11/02/21 11:51 11/02/21 13:49 Temperature 98 F 98 F Temperature Source Temporal Temporal Pulse Rate 77 77 67 Respiratory Rate 20 H 20 H 18 Blood Pressure 157/83 H 157/83 H 150/81 H Blood Pressure Mean 107 107 104 Pulse Ox 93 93 95 Oxygen Delivery Method Room Air Room Air Room Air 11/02/21 15:02 Temperature Temperature Source Pulse Rate 87 Respiratory Rate 18 Blood Pressure 169/86 H Blood Pressure Mean 113 Pulse Ox 95 Oxygen Delivery Method Room Air Positive well nourished and well developed General Appearance ED: well developed HEENT Reports moist mucous membranes Negative for trauma Eyes PERRL and EOMs intact bilaterally Neck supple Chest Wall inspection of chest normal and palpation of chest normal Resp normal respiratory effort and clear to auscultation bilaterally Cardio regular rate and regular rhythm Heart Sounds: murmur GI normal to inspection, nondistended, normoactive bowel sounds and non-tender Palpation: soft Extremity normal to inspection Neuro oriented x3 Neuro Narrative: No focal neurologic deficits. Sensorium / Orientation: alert Psych mental status grossly normal Skin no rashes or lesions noted MDM MDM MDM Narrative Medical decision making narrative: Patient sent for head CT. Lab work, urinalysis, chest x-ray obtained. Lab Data Attestation: I reviewed the patient's lab results. Labs: Laboratory Results - last 24 hr 11/02/21 11/02/21 11/02/21 12:33 12:33 12:33 WBC 7.9 RBC 4.51 Hgb 14.1 Hct 40.2 MCV 89.1 MCH 31.3 MCHC 35.1 RDW Std Deviation 37.6 RDW Coeff of Lindy 11.7 Plt Count 222 MPV 10.1 Immature Gran % (Auto) 0.300 Neut % (Auto) 75.5 H Lymph % (Auto) 17.4 L [place] % (Auto) 6.1 Eos % (Auto) 0.3 Baso % (Auto) 0.4 Absolute Neuts (auto) 6.0 Absolute Lymphs (auto) 1.37 Nucleated RBC % 0 PT 23.8 H INR 2.2 Sodium 129 L Potassium 3.2 L Chloride 92 L Carbon Dioxide 30.0 Anion Gap 7 BUN 15 Creatinine 0.82 Estim Creat Clear Calc 36.68 Est GFR (MDRD) Af Amer 86 Est GFR (MDRD) Non-Af 71 BUN/Creatinine Ratio 18.4 Glucose 182 H Calcium 9.1 Troponin I High Sens 12 Urine Color Urine Clarity Urine pH Ur Specific [place] Urine Protein Urine Glucose (UA) Urine Ketones Urine Occult Blood Urine Nitrite Urine Bilirubin Urine Urobilinogen Ur Leukocyte Esterase Urine RBC Urine WBC Ur Squamous Epith Cells Urine Bacteria Urine Mucus 11/02/21 13:13 WBC RBC Hgb Hct MCV MCH MCHC RDW Std Deviation RDW Coeff of Lindy Plt Count MPV Immature Gran % (Auto) Neut % (Auto) Lymph % (Auto) [place] % (Auto) Eos % (Auto) Baso % (Auto) Absolute Neuts (auto) Absolute Lymphs (auto) Nucleated RBC % PT INR Sodium Potassium Chloride Carbon Dioxide Anion Gap BUN Creatinine Estim Creat Clear Calc Est GFR (MDRD) Af Amer Est GFR (MDRD) Non-Af BUN/Creatinine Ratio Glucose Calcium Troponin I High Sens Urine Color Yellow Urine Clarity Clear Urine pH 6.0 Ur Specific [place] 1.015 Urine Protein Negative Urine Glucose (UA) Normal Urine Ketones 5 H Urine Occult Blood 25 H Urine Nitrite Negative Urine Bilirubin Negative Urine Urobilinogen Normal Ur Leukocyte Esterase Negative Urine RBC 0-5 SEEN Urine WBC 0 SEEN Ur Squamous Epith Cells 0-5 SEEN Urine Bacteria 0 SEEN Urine Mucus 0 SEEN Radiography Chest X-Ray - ED: 1 View, Read by ED Physician and Chronic Changes Diagnostic Testing: Clinical Impression(s) from Imaging Studies Brain CT 11/02/21 12:10 IMPRESSION: Chronic involutional changes of the brain. Electronically Signed: Agapito Jimenez MD at 13:36 EDT , Chest X-Ray 11/02/21 12:10 IMPRESSION: No acute abnormality is seen. Electronically Signed: Agapito Jimenez MD at 13:36 EDT , EKG Initial EKG: Attestation: I personally reviewed and interpreted this EKG as follows: Interpretation: Sinus Rhythm (Sinus at 74 with LVH. No acute ST change.) Treatment and Re-Evaluation Narrative: Patient's lab work is reviewed. Her sodium is 129, down from 137 2 weeks ago. Her potassium is slightly low at 3.2. This is replaced orally and she has started on IV normal saline. Urinalysis shows no infection. INR is therapeutic at 2.2. Head CT shows no acute changes. Chest x-ray per my interpretation reveals no acute changes. Radiology interpretation is reviewed. At this time patient does seem to have symptomatic hyponatremia. Family does now state that her diuretic was recently changed from Lasix to hydrochlorothiazide. This may be contributing to her electrolyte disturbances. I will speak with the hospitalist regarding observation. Discharge Plan Triage Chief Complaint: Confusion ED Provider: Joyce Rios Dx/Rx/DC Orders Clinical Impression: Acute hyponatremia, Hypokalemia Prescriptions: No Action trazodone 100 mg tablet 100 mg PO QHS RF: 0 warfarin 1 mg tablet 1 mg PO DAILY RF: 0 albuterol sulfate [Ventolin HFA] 90 mcg/actuation HFA aerosol inhaler 2 puff inhalation Q6H PRNRF: 0 losartan 100 mg tablet 100 mg PO DAILY RF: 0 metoprolol tartrate 100 mg tablet 100 mg PO BID RF: 0 atorvastatin 40 MG tablet 40 mg PO QHS RF: 0 venlafaxine 75 MG tablet 75 mg PO BID RF: 0 hydroxychloroquine 200 MG tablet 200 mg PO BID RF: 0 alprazolam 0.5 mg Tablet 0.5 mg PO BID PRN PRN (Reason: Anxiety) Qty: 0 RF: 0 warfarin 5 MG tablet 5 mg PO DAILY Qty: 0 RF: 0 hydrochlorothiazide 25 mg tablet 25 mg PO DAILY Qty: 90 RF: 3 Primary Care Provider: Joao Simon Referrals: Joao Simon MD [Primary Care Provider] - Disposition Disposition: Acute Care Hospital [facility]
[2021-11-02] MEDS: 0.9% Normal Saline 1,000 ML 150 ML IV ×2 (12:32→21:31)
[2021-11-02 12:43] LABS: Absolute Lymphocyte Count 1.37 X10^3/uL (0.83-4.51); Basophil# 0.03 X10^3/uL; Basophil% 0.4 % (0-1); Eosinophil# 0.02 X10^3/uL; Eosinophils% 0.3 % (0-5); Hematocrit 40.2 % (37-47); Hemoglobin 14.1 g/dL (12.0-15.0); Lymphocyte # 1.37 X10^3/ul (0.83-4.51); Lymphocyte % 17.4 % (19-41); Mean Corp Hgb Conc 35.1 g/dL (32-36); Mean Corpuscular Hgb 31.3 pg (27.0-32.0); Mean Corpuscular Volume 89.1 fL (81-99); Mean Platelet Vol. 10.1 fl (6.2-12.0); Monocyte# 0.48 X10^3/uL; Monocyte% 6.1 % (0-10); NRBC Flagged by Analyzer 0 % (0-5); Neutrophil # 5.97 X10^3/uL (2.7-7.7); Neutrophil % 75.5 % (47-70); Platelet Count 222 K/mm3 (150-450); RBC Distribution Width CV 11.7 % (11.6-14.6); RBC Distribution Width SD 37.6 fl (35.1-43.9); Red Blood Count 4.51 M/mm3 (4.2-5.4); White Blood Count 7.9 K/mm3 (4.4-11.0)
[2021-11-02 13:04] LABS: Anion Gap 7 (5-15); BUN 15 mg/dL (7-18); BUN/Creat Ratio 18.4 RATIO (10-20); Calcium,Total 9.1 mg/dL (8.5-10.1); Chloride 92 mmol/L (98-107); Creatinine, Serum 0.82 mg/dL (0.55-1.02); EST Glomerular Filtration Rate 71 mL/min (>60); Est Glom Filt Rate - Afr Amer 86 mL/min (>60); Estimated Creatinine Clearance 36.68 ml/min; Glucose 182 mg/dL (74-106); Potassium 3.2 mmol/L (3.5-5.1); Sodium Level 129 mmol/L (136-145); Troponin-I HS 12 pg/mL (3.0-54.0)
[2021-11-02 13:17] LABS: International Normalized Ratio 2.2; Prothrombin Time (Protime)PT. 23.8 SECONDS (11.7-14.9)
[2021-11-02 13:20] LABS: Bacteria 0 SEEN /hpf (None Seen); Mucous, Urine 0 SEEN /hpf (<or=2+); White Blood Cells 0 SEEN /hpf (0-5)
[2021-11-02] MEDS: Potassium Chloride Oral Tablet 20 MEQ 40 MEQ PO (13:25)
[2021-11-02 13:37] LABS: Color, Urine Yellow (Yellow); Glucose, Dipstick Normal (Normal); Ketone-Dipstick 5 mg/dl (Negative); Leukocyte Esterase-Dipstick Negative /ul (Negative); Nitrite-Dipstick Negative (Negative); Occult Blood-Urine 25 /ul (Negative); Protein-Dipstick Negative (Negative); Specific Gravity, Urine 1.015 (1.002-1.030); Urine Bilirubin Dipstick Negative (Negative); Urine Clarity Clear (Clear); Urine Urobilinogen Normal (Normal)
[2021-11-02 13:46] LABS: Red Blood Cells-Urine 0-5 SEEN /hpf (0-5); Squamous Epithelial Cells - UA 0-5 SEEN /hpf (5-10)
--- NOTE | 2021-11-02 15:17 | HP.PCM.HOS_ITS ---
HPI - General General Date of Admission: 11/02/21 HPI Narrative ERASTO RICHARDSON, is a 86 F with an extensive PMh as outlined who presents via the ED on 11/02/2021 with a complaint of altered mental status. She had a fall on Monday night and didnt hit her head. SHe was reviewed by EMS, but wasnt brought in to the ED. Daughter noticed that she had been more confused, so they brought her in to the ED. She denied any fever, chills, nausea, vomiting or diarrhea. She denied any urinary symptoms. She had recently been switched from lasix to HCTZ by her open hearth furnace operator helper. Patient and her daughter said she had been getting confused for quite a few months now; her PCP had been concerned about possible dementia. She has also fallen about 3 times over the past couple of months. Vitals in the ED were BP of 169/86, NC of 87, RR of 18 and sats of 95% on room air. CBC was unremarkable, and BMP showed sodium of 129, with most recent sodium about a week ago being 137. INR was 2.2 and potassium was 3.2. Urinalysis didnt show any evidence of UTI. INR was 2.2. CT of the brain showed no acute intrac ranial pathology. She is being admitted to be managed for acute metabolic encephalopathy due to hyponatremia. [facility] Medical History Atherosclerotic heart disease of [place] coronary artery without angina pectoris Atrial fibrillation with RVR (10/01/16) Bilateral breast cancer Depression Essential hypertension History of non-ST elevation myocardial infarction (NSTEMI) (10/01/16) History of pulmonary embolus (PE) Hypercoagulable state retirement current use of anticoagulant Nonrheumatic aortic (valve) stenosis Parkinsonian syndrome Paroxysmal atrial fibrillation Postoperative atrial fibrillation (04/04/13) Recurrent deep vein thrombosis (DVT) Restrictive airway disease Rheumatoid arthritis Home Medications atorvastatin 40 mg PO QHS 10/01/16 [History Last Taken 11/01/21] venlafaxine 75 mg PO QHS 02/14/19 [History Last Taken 11/01/21] albuterol sulfate 90 mcg/actuation aerosol inhaler 2 puff INHALATION Q6H PRN 09/23/21 [History Last Taken Unknown] losartan 100 mg tablet 100 mg PO DAILY tab 09/23/21 [History Last Taken Unknown] trazodone 100 mg tablet 100 mg PO QHS tab 09/23/21 [History Last Taken 11/01/21] hydrochlorothiazide 25 mg tablet 25 mg PO DAILY #90 tab 09/30/21 [Rx Last Taken 11/01/21] alprazolam 0.5 - 1 mg PO BID PRN PRN 11/02/21 [History Last Taken Unknown] hydroxychloroquine 200 mg PO BID 11/02/21 [History Last Taken 11/01/21] metoprolol tartrate 100 mg PO BID 11/02/21 [History Last Taken 11/01/21] venlafaxine 150 mg PO BREAKFAST 11/02/21 [History Last Taken 11/01/21] warfarin 2 mg PO DAILY 11/02/21 [History Last Taken 11/01/21] warfarin 5 mg PO DAILY 11/02/21 [History Last Taken 11/01/21] Allergy/AdvReac Type Severity Reaction Status Date / Time Penicillins Allergy Anaphylaxis Verified 11/02/21 11:51 acetaminophen [From Vicodin] AdvReac Itching Verified 11/02/21 11:51 codeine AdvReac Nausea Verified 11/02/21 11:51 ezetimibe [From Zetia] AdvReac Itching Verified 11/02/21 11:51 hydrocodone bitartrate AdvReac Itching Verified 11/02/21 11:51 [From Vicodin] Drlsvui-FZH-PhK Reductase AdvReac Other Verified 11/02/21 11:51 Inhibitor [Gqezyzn-Mzn-Ygx Reductase Inhibitor] Surgical History 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) History of appendectomy History of cardioversion (10/01/16) History of coronary artery stent placement (12/2003) History of left heart catheterization (10/13/15) Social History household members: none Smoking Status: Former smoker how long ago did patient quit smokin, 1ppd second hand exposure: Yes ROS Constitutional Constitutional: Denies anorexia, chills, fatigue, malaise or weakness Eyes Eyes: Denies change in vision ENT HEENT: Denies dysphagia, headache(s) or hearing loss Cardiovascular Cardiovascular: Denies chest pain, dyspnea on exertion, edema, lightheadedness, orthopnea, palpitations, paroxysmal nocturnal dyspnea, rapid heart rate or syncope Respiratory/Chest Respiratory/Chest: Denies cough, dyspnea, shortness of breath at rest or shortness of breath with exertion Gastrointestinal Gastrointestinal: Denies abdominal pain, constipation, diarrhea, nausea or vomiting Genitourinary Genitourinary: Denies burning urination, dysuria or urinary frequency Neurologic Neurologic: Reports confusion and dizziness; Denies focal weakness, headache(s), numbness or seizures Psychiatric Psychiatric: Denies anxiety Endocrine Endocrinology: Denies change in body appearance Hematologic/Lymphatic Hematologic/Lymphatic: Denies anemia Vital Signs Vital Signs Vital Signs: 11/02/21 11:48 11/02/21 11:51 11/02/21 13:49 Temperature 98 F 98 F Temperature Source Temporal Temporal Pulse Rate 77 77 67 Respiratory Rate 20 H 20 H 18 Blood Pressure 157/83 H 157/83 H 150/81 H Blood Pressure Mean 107 107 104 Pulse Ox 93 93 95 Oxygen Delivery Method Room Air Room Air Room Air 11/02/21 15:02 Temperature Temperature Source Pulse Rate 87 Respiratory Rate 18 Blood Pressure 169/86 H Blood Pressure Mean 113 Pulse Ox 95 Oxygen Delivery Method Room Air Weight Weight: 168 lb Body Mass Index (BMI) 32.8 Physical Exam Const alert and oriented x3 General Appearance: cooperative HEENT normocephalic, head/scalp atraumatic, hearing grossly normal bilaterally and moist oral mucous membranes Eyes PERRL, EOMs intact bilaterally and conjunctivae normal Neck no lymphadenopathy, supple and no JVD Resp normal respiratory effort, no retractions, no use of accessory muscles and clear to auscultation bilaterally Cardio regular rate, regular rhythm, S1 normal heart sound, S2 normal heart sound and no murmurs GI normal to inspection, nondistended, normoactive bowel sounds, soft to palpation, non-tender and non-distended Extremity normal to inspection, full ROM and no clubbing, cyanosis or edema Peripheral Pulses: Yes pulses 2+ throughout Skin no rashes or lesions noted Neuro oriented x3, CN's II-XII intact bilaterally and moves all extremities Sensorium / Orientation: awake and alert Motor Exam: strength 5/5 throughout Psych affect normal Results Lab / Micro Data Result Diagrams: 11/02/21 12:33 11/02/21 12:33 Labs: Laboratory Results - last 24 hr 11/02/21 12:33: WBC 7.9, RBC 4.51, Hgb 14.1, Hct 40.2, MCV 89.1, MCH 31.3, MCHC 35.1, RDW Std Deviation 37.6, RDW Coeff of Lindy 11.7, Plt Count 222, MPV 10.1, Immature Gran % (Auto) 0.300, Neut % (Auto) 75.5 H, Lymph % (Auto) 17.4 L, [place] % (Auto) 6.1, Eos % (Auto) 0.3, Baso % (Auto) 0.4, Absolute Neuts (auto) 6.0, Absolute Lymphs (auto) 1.37, Nucleated RBC % 0 11/02/21 12:33: PT 23.8 H, INR 2.2 11/02/21 12:33: Sodium 129 L, Potassium 3.2 L, Chloride 92 L, Carbon Dioxide 30.0, Anion Gap 7, BUN 15, Creatinine 0.82, Estim Creat Clear Calc 36.68, Est GFR (MDRD) Af Amer 86, Est GFR (MDRD) Non-Af 71, BUN/Creatinine Ratio 18.4, Glucose 182 H, Calcium 9.1, Troponin I High Sens 12 11/02/21 13:13: Urine Color Yellow, Urine Clarity Clear, Urine pH 6.0, Ur Spec ific [place] 1.015, Urine Protein Negative, Urine Glucose (UA) Normal, Urine Ketones 5 H, Urine Occult Blood 25 H, Urine Nitrite Negative, Urine Bilirubin Negative, Urine Urobilinogen Normal, Ur Leukocyte Esterase Negative, Urine RBC 0-5 SEEN, Urine WBC 0 SEEN, Ur Squamous Epith Cells 0-5 SEEN, Urine Bacteria 0 SEEN, Urine Mucus 0 SEEN Radiology Impression Brain CT 11/02/21 12:10 IMPRESSION: Chronic involutional changes of the brain. Electronically Signed: Agapito Jimenez MD at 13:36 EDT , Chest X-Ray 11/02/21 12:10 IMPRESSION: No acute abnormality is seen. Electronically Signed: Agapito Jimenez MD at 13:36 EDT , Assessment & Plan Assessment/Plan (1) Acute hyponatremia: (2) Hypokalemia: (3) Acute metabolic encephalopathy: PLAN: #Acute metabolic encephalopathy due to hyponatremia * admit to med surg * sodium is 129; was recently 137 a few weeks ago. * there is no evidence of infection with normal CXR and no evidence of UTI on urinalysis * hydrate with IVF NS @ 150cc/hr * check urine sodium, urine osmolality and serum osmolality * if hyponatremia doesnt improve, will consult nephrology. #Debility due to recurrent falls * patient has also been getting quite forgetful over for quite a while now. She has also been falling down frequently. * consult PT/OT. * fall precautions. * PCP is concerned about possible dementia. Counseled taht she will need to follow up with PCP once hyponatremia resolves to be evaluated for and diagnosed with dementia * #Hyponatremia: as above #Hypokalemia: K is 3.2. Will replace and trend. #Afib * rate controlled. On metoprolol. On coumadin. INR is therapeutic * #History of PE and DVT: on coumadin. INR is therapeutic. #Hypertension; hold HCTZ. on losartan and metoprolol #History of bilateral breast cancer #Depression; on venlafaxine #Hyperlipidemia: on statin. DVT prophylaxis: not indicated as patient is on coumadin. code status; full code. * Patient and daughter counseled extensively about different types of CODE STATUS including full code, DNR CCA and DNR CCA. Patient elects to be full code. * Total yffk-js-pjgi time 17 minutes. Charges/Coding Visit Charges OBSV E&M: 31751 Initial observation care L2 Procedures Hospitalists Procedures: 81453 Advncd Care Plan 30 Min
--- NOTE | 2021-11-02 15:19 | NURSING ---
DR CHAVEZ FOR DR BELTRAN
--- NOTE | 2021-11-02 15:21 | NURSING ---
MED SURG OBS KORAM HYPONATREMIA, HYPOKALEMIA
[2021-11-02 17:30] LABS: Osmolality, Serum 275 mOsm/KG (280-301)
[2021-11-02] MEDS: Atorvastatin Calcium 40 MG Tablet PO (22:01)
[2021-11-02] MEDS: Metoprolol Tartrate 100 MG Tablet PO (22:01)
[2021-11-02] MEDS: traZODone 100 MG Tablet PO (22:01)
[2021-11-02] MEDS: Venlafaxine HCl 75 MG Tablet PO (22:02)
[2021-11-02 22:27] LABS: Osmolality, Urine 253 mOsm/KG
[2021-11-03] VITALS (13 sets, daily range): BP systolic 140–172; BP diastolic 64–85; PULSE 60–88; RESP 16–18; TEMP 36.4–36.9; O2SAT 97–98
[2021-11-03 02:38] LABS: Urine Sodium 35 mmol/L (Not Establ.)
[2021-11-03] MEDS: 0.9% Saline Lock 10 ML Syringe IV (03:06)
[2021-11-03] MEDS: 0.9% Normal Saline 1,000 ML 150 ML IV ×2 (04:04→11:30)
[2021-11-03 06:46] LABS: Absolute Lymphocyte Count 1.58 X10^3/uL (0.83-4.51); Absolute Neutrophil Count 4.2 X10^3/uL (2.0-7.7); Basophil# 0.04 X10^3/uL; Basophil% 0.6 % (0-1); Eosinophil# 0.11 X10^3/uL; Eosinophils% 1.7 % (0-5); Hematocrit 40.3 % (37-47); Hemoglobin 13.8 g/dL (12.0-15.0); Lymphocyte # 1.58 X10^3/ul (0.83-4.51); Lymphocyte % 23.8 % (19-41); Mean Corp Hgb Conc 34.2 g/dL (32-36); Mean Corpuscular Hgb 30.9 pg (27.0-32.0); Mean Corpuscular Volume 90.4 fL (81-99); Mean Platelet Vol. 10.4 fl (6.2-12.0); Monocyte# 0.67 X10^3/uL; Monocyte% 10.1 % (0-10); NRBC Flagged by Analyzer 0 % (0-5); Neutrophil # 4.21 X10^3/uL (2.7-7.7); Neutrophil % 63.5 % (47-70); Platelet Count 188 K/mm3 (150-450); RBC Distribution Width CV 11.9 % (11.6-14.6); Red Blood Count 4.46 M/mm3 (4.2-5.4); White Blood Count 6.6 K/mm3 (4.4-11.0)
[2021-11-03 07:12] LABS: Anion Gap 3 (5-15); BUN 9 mg/dL (7-18); BUN/Creat Ratio 16.9 RATIO (10-20); Calcium,Total 8.6 mg/dL (8.5-10.1); Chloride 104 mmol/L (98-107); Creatinine, Serum 0.53 mg/dL (0.55-1.02); EST Glomerular Filtration Rate 116 mL/min (>60); Est Glom Filt Rate - Afr Amer 140 mL/min (>60); Estimated Creatinine Clearance 30.08 ml/min; Glucose 110 mg/dL (74-106); Potassium 4.2 mmol/L (3.5-5.1); Sodium Level 137 mmol/L (136-145)
[2021-11-03] MEDS: Venlafaxine HCl 75 MG Tablet 150 MG PO (09:06)
[2021-11-03] MEDS: Metoprolol Tartrate 100 MG Tablet PO ×2 (09:07→21:17)
[2021-11-03] MEDS: Losartan Potassium 100 MG Tablet PO (09:07)
[2021-11-03 09:29] LABS: International Normalized Ratio 2.5; Prothrombin Time (Protime)PT. 26.7 SECONDS (11.7-14.9)
--- NOTE | 2021-11-03 14:24 | CASEMGMT ---
Social Work Referral: care home placement. Referral source: Ramp Service Man. Met with patient in room. Introduced self and director of social media marketing role. Patient agreeable to speak with this director of social media marketing. This director of social media marketing broached conversation of alf placement for patient. Patient is agreeable to alf placement. This director of social media marketing provided list of in-network facility that are local to patient geographical region. Patient reported that first choice for placement is TCU. Patient is agreeable to this director of social media marketing calling patient Brooke klein in regards to discharge plan. Telephone call to [facility]. [facility] reports to not have any open beds. Telephone call to patient Brooke klein. No answer. Voicemail left. Will continue to follow. Lance Baker MSW, MAE-S
--- NOTE | 2021-11-03 14:40 | PN.HOSP_ITS ---
Subjective Subjective Dates she has been feeling much better today than she did yesterday on admission. She does acknowledge the need for some help and is agreeable to placement if she qualifies. She does note memory issues. Appetite is good this morning. She states she was able to get up with some help to the chair this morning. Objective Data Objective Data Vital Signs: Vital Signs Temp Pulse Resp BP Pulse Ox 98.4 F 68 16 144/68 H 97 11/03/21 14:11 11/03/21 14:11 11/03/21 14:11 11/03/21 14:11 11/03/21 14:11 Oxygen Delivery Method Room Air Weight: 74.661 kg Body Mass Index (BMI) 32.1 Intake & Output: Intake and Output for Last 24 Hours 11/01/21 11/02/21 11/03/21 23:59 23:59 23:59 Intake Total 1000 / 1000 2482.5 / 2482.5 Output Total 400 / 400 Balance 1000 / 1000 2082.5 / 2082.5 Lab / Micro Data Result Diagrams: 11/03/21 05:30 11/03/21 05:30 Labs: Laboratory Results - last 24 hr 11/02/21 15:56: Serum Osmolality 275 L 11/02/21 21:55: Urine Osmolality 253, Ur Random Sodium 35 11/03/21 05:30: WBC 6.6, RBC 4.46, Hgb 13.8, Hct 40.3, MCV 90.4, MCH 30.9, MCHC 34.2, RDW Std Deviation 39.0, RDW Coeff of Lindy 11.9, Plt Count 188, MPV 10.4, Immature Gran % (Auto) 0.300, Neut % (Auto) 63.5, Lymph % (Auto) 23.8, [place] % (Auto) 10.1 H, Eos % (Auto) 1.7, Baso % (Auto) 0.6, Absolute Neuts (auto) 4.2, Absolute Lymphs (auto) 1.58, Nucleated RBC % 0 11/03/21 05:30: Sodium 137, Potassium 4.2, Chloride 104, Carbon Dioxide 30.0, Anion Gap 3 L, BUN 9, Creatinine 0.53 L, Estim Creat Clear Calc 30.08, Est GFR (MDRD) Af Amer 140, Est GFR (MDRD) Non-Af 116, BUN/Creatinine Ratio 16.9, Glucose 110 H, Calcium 8.6 11/03/21 08:18: PT 26.7 H, INR 2.5 Physical Exam Const alert, oriented x3, no apparent distress, healthy appearing and well nourished Exam Limitations: no limitations Nutritional Appearance: obese HEENT head/scalp atraumatic and moist oral mucous membranes HEENT Narrative: Mallampati 2, dentures in place, no thrush Head and Scalp: normocephalic Resp normal respiratory effort, no retractions, no use of accessory muscles and clear to auscultation bilaterally Auscultation: Negative for crackles, rales, rhonchi or wheezes Cardio regular rate, regular rhythm, S1 normal heart sound, S2 normal heart sound, no murmurs, no rub, no gallops, no clicks and no JVD GI normal to inspection, nondistended, normoactive bowel sounds, soft to palpation, non-tender and non-distended Extremity no clubbing, cyanosis or edema Peripheral Pulses: Yes pulses 2+ throughout Neuro oriented x3, CN's II-XII intact bilaterally, moves all extremities and no focal motor deficits Neuro Narrative: Mild generalized weakness Sensorium / Orientation: awake and alert Speech: speech normal Psych affect normal Psych Narrative: Patient very pleasant and appropriately interactive Assessment & Plan Assessment/Plan (1) Acute metabolic encephalopathy: (2) Acute hyponatremia: (3) Hypokalemia: (4) Frequent falls: (5) Poor balance: (6) Memory loss: PLAN: Acute metabolic encephalopathy -Resolved Acute hypoosmolar hyponatremia -Serum sodium on admission was 129 -Has normalized with IV fluids--> 137 today -Suspect related from diuretic use and possibly mild dehydration -Discontinue IV fluids -Repeat BMP in a.m. -Continue to hold hydrochlorothiazide -We will likely discontinue on discharge and resume back to Lasix -Was recently changed to HCTZ by her credit risk modeler however with resultant hyponatremia will discontinue as above Debility/frequent falls -PT/OT consultation -Patient lives alone -Ambulates with a wheeled walker -Likely need placement upon discharge Hypokalemia -Resolved Paroxysmal atrial fibrillation -Continue metoprolol -Continue Coumadin -INR remains therapeutic at 2.5 this a.m. -We will repeat INR on a.m. of 11/05/2021 as INR has been fairly stable History of PE/DVT -Continue Harris and -INR is therapeutic Hypertension -Continue losartan and metoprolol -Discontinue HCTZ on admission secondary to hyponatremia -We will start Lasix 20 mg daily History of breast cancer -In remission Depression/anxiety -Continue venlafaxine -Continue home low-dose Xanax -Continue home trazodone DVT prophylaxis -Patient is fully anticoagulated with Coumadin having a therapeutic INR CODE STATUS -full code Charges/Coding Visit Charges Inpatient E&M: 52443 Subs Hosp L2
--- NOTE | 2021-11-03 14:45 | CASEMGMT ---
Social Work This manager social services met with patient in room. This manager social services informed patient that TCU does not have any open beds. Patient second choice is [facility] Swing bed unit. Telephone call to [facility] - swing bed, [facility]. [facility] reports to have open beds. Clinical information faxed. Will continue to follow. Lance CARTER, SHERICE
--- NOTE | 2021-11-03 15:40 | CASEMGMT ---
RN SRIRAM NOTE: Intro role of CM to patient and MACHADO form explained re: Observation status for treatment of acute metabolic encephalopathy and hyponatremia. Explained hospitalization will be paid per her insurance policy for Outpatient billing and condition will continue to be evaluated for Inpt necessity. Also let pt know that [facility] sends paper in the billing packet with their phone number if questions arise. Discussed Pharmacy section of MACHADO form and self administered medication guideline. Pt verbalizes understanding and does not have further questions. Form signed, copy made and placed in chart, and original given to pt. Jamir SHETTY RN CM
[2021-11-03] MEDS: Furosemide 20 MG Tablet PO (15:58)
--- NOTE | 2021-11-03 16:23 | CASEMGMT ---
Social Work Telephone call from daughter, Brooke. This oncology social work introduced self and oncology social work role. Brooke agreeable to prison placement and also inquired about assisted living. Brooke reports to have been looking into [facility] home. This oncology social work updated Brooke that TCU does not have a bed open and that a referral has been sent to [facility]. Brooke states to be unsure about [facility]. Brooke request for this oncology social work to reach out to [facility] to explore options if patient would choose to discharge to [facility]. Brooke aware that assisted living will be private pay. Brooke inquired about [facility] for patient. This oncology social work communicating that [facility] is out of network with patient insurance but this oncology social work could call to see if [facility] would do a one time contract. Brooke request for this oncology social work to reach out to [facility]. This oncology social work to call both [facility] and [facility] tomorrow morning. Will continue to follow. Lance CARTER, SHERICE
--- NOTE | 2021-11-03 17:09 | NURSING ---
MYSTIQUE INK TECHNICIAN DOCUMENTATION REVIEWED.
[2021-11-03] MEDS: Venlafaxine HCl 75 MG Tablet PO (21:17)
[2021-11-03] MEDS: traZODone 100 MG Tablet PO (21:17)
[2021-11-03] MEDS: Atorvastatin Calcium 40 MG Tablet PO (21:17)
[2021-11-03] MEDS: ALPRAZolam 0.5 MG Tablet PO (21:23)
[2021-11-04] VITALS (8 sets, daily range): BP systolic 127–164; BP diastolic 57–64; PULSE 59–110; RESP 16; TEMP 36.5–36.7; O2SAT 93–97
[2021-11-04] MEDS: hydrALAZINE 20 MG/ML Vial 5 MG IV (03:51)
[2021-11-04] MEDS: 0.9% Saline Lock 10 ML Syringe IV (03:52)
[2021-11-04 06:22] LABS: BUN 10 mg/dL (7-18); BUN/Creat Ratio 17.1 RATIO (10-20); Calcium,Total 8.7 mg/dL (8.5-10.1); Creatinine, Serum 0.58 mg/dL (0.55-1.02); EST Glomerular Filtration Rate 104 mL/min (>60); Est Glom Filt Rate - Afr Amer 126 mL/min (>60); Estimated Creatinine Clearance 30.08 ml/min; Glucose 106 mg/dL (74-106)
[2021-11-04 06:23] LABS: Anion Gap 6 (5-15); Chloride 105 mmol/L (98-107); Potassium 3.5 mmol/L (3.5-5.1); Sodium Level 137 mmol/L (136-145)
--- NOTE | 2021-11-04 09:02 | NURSING ---
SITTING UP IN CHAIR EATING BREAKFAST. DENIES NEEDS
--- NOTE | 2021-11-04 09:50 | CASEMGMT ---
Social Work [facility] TCU now has an open bed. Referral made to Janette in admissions as this was patient preferred choice. This social media marketing manager updated patient and patient daughter, Brooke on above information, all agreeable to plan to pursue skilled placement to TCU. Telephone call to [facility], [facility]. Referral canceled. PLAN: TCU, pending pre-cert. Social Work to continue to follow. Lance Baker MSW, SHERLYS
[2021-11-04] MEDS: Venlafaxine HCl 75 MG Tablet 150 MG PO (10:24)
[2021-11-04] MEDS: Metoprolol Tartrate 100 MG Tablet PO (10:24)
[2021-11-04] MEDS: amLODIPine 5 MG Tablet PO (10:24)
[2021-11-04] MEDS: Furosemide 20 MG Tablet PO (10:34)
[2021-11-04] MEDS: Losartan Potassium 100 MG Tablet PO (13:19)
--- NOTE | 2021-11-04 14:30 | CASEMGMT ---
Social Work Telephone call from [facility], Janette. Pre-cert has been obtained and patient is able to admit today. Dr. Avina (hospitalist) reports that patient is medically cleared for discharge today to TCU. Medical team, patient, and patient daughter updated with plan for patient to discharge to TCU today. PLAN: TCU, skilled. Lance CARTER, MAE-S
--- NOTE | 2021-11-04 15:02 | DS.PCM_ITS ---
Providers Date of Admission: 11/02/21 Date of Discharge: 11/04/21 Primary Care Physician: Dr. Joao Simon MD Reason For Visit: ACUTE MATABOLIC ENCEPHALOPATHY, HYPONATREMIA Diagnosis Discharge Diagnosis (1) Acute metabolic encephalopathy: Status: Acute Code(s): G93.41 - Metabolic encephalopathy (2) Acute hyponatremia: Status: Acute Code(s): E87.1 - Hypo-osmolality and hyponatremia (3) Hypokalemia: Status: Acute Code(s): E87.6 - Hypokalemia (4) Frequent falls: Status: Acute Code(s): R29.6 - Repeated falls (5) Poor balance: Status: Acute Code(s): R26.89 - Other abnormalities of gait and mobility (6) Memory loss: Status: Acute Code(s): R41.3 - Other amnesia Medications at Discharge Home Medications atorvastatin 40 mg PO QHS 10/01/16 venlafaxine 75 mg PO QHS 02/14/19 albuterol sulfate 90 mcg/actuation aerosol inhaler 2 puff INHALATION Q6H PRN 09/23/21 losartan 100 mg tablet 100 mg PO DAILY tab 09/23/21 trazodone 100 mg tablet 100 mg PO QHS tab 09/23/21 hydroxychloroquine 200 mg PO BID 11/02/21 metoprolol tartrate 100 mg PO BID 11/02/21 venlafaxine 150 mg PO BREAKFAST 11/02/21 warfarin 2 mg PO DAILY 11/02/21 warfarin 5 mg PO DAILY 11/02/21 amlodipine 5 mg PO DAILY #30 tab 11/04/21 furosemide 20 mg PO DAILY #30 tab 11/04/21 Hospital Course Operations None Procedures - (CT of the head) Summary of Care Provided Minutes Spent on Discharge: 36 Hospital Course: Mrs. Valdes is an 86-year-old white female who presented to emergency department at [facility] on 11/02/2021 with a chief complaint of altered mental status. Evidently on Monday night of last week she had a fall where she did not hit her head. She was evaluated by the EMS but was not brought to the emergency department. The daughter had noticed that she had been more confused than baseline so they brought her to the emergency department for evaluation. She had no other symptoms associated. Evidently her Lasix had recently been switched to hydrochlorothiazide by her mica machine operator. The daughter reported that the patient had been having more confusion for several months and her primary care physician was concerned about possible dementia. She also suffered from approximately 3 falls in the past couple of months. Her vital signs in the emergency department were unremarkable. Her CBC was unremarkable. Her BMP showed mild hyponatremia with a sodium of 129 with a recent sodium being 137 approximately 1 week ago. Her INR was 2.2 and her potassium was 3.2. Her urinalysis was not consistent with any signs for UTI. A CT of her brain was performed and showed no acute intracranial pathology and she was admitted to the hospital for acute metabolic encephalopathy which was thought to be due to hyponatremia. She was given IV fluids and her hydrochlorothiazide was held. Her sodium improved 129 at admission to 137 on the morning after admission. Her IV fluids were then discontinued but her hydrochlorothiazide continued to be held. She was started on Lasix for hypertension at 20 mg daily. Her sodium remained stable and her mental status remained at baseline. Family wanted her placed in a facility and she did show some debility with increased risk of fall when she was evaluated by physical and Occupational Therapy. Family is considering transition to assisted living however in the meantime she will transition to TCU for continued rehab while family works on placement at assisted living facility. Her blood pressure did remain elevated despite the addition of Lasix and substitution for hydrochlorothiazide and the amlodipine 5 mg was added with improved blood pressure control. We discontinued her as needed benzodiazepines as these could also be contributing to her falling. She remained stable throughout her hospitalization was discharged in stable condition to TCU on 11/24/2021. We have recommended follow-up with her primary care physician within the next month for reevaluation. She should have a repeat BMP in approximately 1 week. We would recommend further extensive memory testing now that her metabolic issues have been corrected. Discharge diagnoses: Acute metabolic encephalopathy-resolved Acute hypoosmolar hyponatremia-resolved Falls Debility Hypokalemia-resolved PAF History of PE/DVT Hypertension History of breast cancer Depression Anxiety Suspected memory impairment Physical Exam Const alert, oriented x3, no apparent distress, healthy appearing and well nourished Constitutional Narrative: Obese elderly white female sitting up in a chair at the bedside, eating breakfast, appears comfortable and nontoxic, patient alert and oriented however she does appear to have some mild cognitive deficits when it comes to memory General Appearance: cooperative, comfortable, well kempt and well developed Orientation / Consciousness: awake Exam Limitations: no limitations Nutritional Appearance: obese HEENT normocephalic, head/scalp atraumatic, hearing grossly normal bilaterally and mo ist oral mucous membranes HEENT Narrative: Dentures in place, Mallampati 2, no thrush Eyes PERRL, EOMs intact bilaterally and conjunctivae normal Eyes Narrative: No scleral icterus Neck no lymphadenopathy, supple and no JVD Resp normal respiratory effort, no retractions, no use of accessory muscles and clear to auscultation bilaterally Auscultation: Negative for crackles, rales, rhonchi or wheezes Cardio regular rate, regular rhythm, S1 normal heart sound, S2 normal heart sound, no murmurs, no rub, no gallops, no clicks and no JVD GI normal to inspection, nondistended, normoactive bowel sounds, soft to palpation, non-tender and non-distended Extremity normal to inspection, full ROM and no clubbing, cyanosis or edema Skin no rashes or lesions noted, no wounds, skin turgor normal and no jaundice Neuro oriented x3, CN's II-XII intact bilaterally, moves all extremities, no focal motor deficits and no sensory deficits noted Neuro Narrative: Mild generalized weakness Sensorium / Orientation: awake and alert Speech: speech normal Psych affect normal Psych Narrative: Patient very pleasant and appropriately interactive Weight / BMI Weight Weight: 74.661 kg Body Mass Index (BMI) 32.1 ABG / Lab / Microbiology Data Result Diagrams: 11/03/21 05:30 11/04/21 04:13 Laboratory: Laboratory Results - last 24 hr 11/04/21 04:13: Sodium 137, Potassium 3.5, Chloride 105, Carbon Dioxide 26.0, Anion Gap 6, BUN 10, Creatinine 0.58, Estim Creat Clear Calc 30.08, Est GFR (MDRD) Af Amer 126, Est GFR (MDRD) Non-Af 104, BUN/Creatinine Ratio 17.1, Glucose 106, Calcium 8.7 Meaningful Use Info Meaningful Use Diagnoses (Choose all that apply): None applicable Discharge Plan Admission Admit Date/Time: 11/02/21 15:29 Primary Reason for Your Visit: Falls/Confusion Attending Provider: Gail Avina Primary Care Provider: Joao Simon Consulting Providers: Luci Hess Discharge Orders/Prescriptions Prescriptions: New amlodipine 5 mg Tablet 5 mg PO DAILY Qty: 30 RF: 0 furosemide 20 mg Tablet 20 mg PO DAILY Qty: 30 RF: 0 Continued trazodone 100 mg tablet 100 mg PO QHS RF: 0 albuterol sulfate [Ventolin HFA] 90 mcg/actuation HFA aerosol inhaler 2 puff inhalation Q6H PRN (Reason: Wheezing) RF: 0 losartan 100 mg tablet 100 mg PO DAILY RF: 0 atorvastatin 40 MG tablet 40 mg PO QHS RF: 0 venlafaxine 75 MG tablet 75 mg PO QHS RF: 0 venlafaxine 150 mg Capsule,Extended Release 24hr 150 mg PO BREAKFAST RF: 0 warfarin 5 MG tablet 5 mg PO DAILY RF: 0 warfarin 2 mg Tablet 2 mg PO DAILY RF: 0 metoprolol tartrate 50 mg tablet 100 mg PO BID RF: 0 hydroxychloroquine 200 mg tablet 200 mg PO BID RF: 0 Discontinued alprazolam 0.5 mg tablet 0.5 - 1 mg PO BID PRN PRN (Reason: Anxiety) RF: 0 hydrochlorothiazide 25 mg tablet 25 mg PO DAILY Qty: 90 RF: 3 Referrals / Follow Up: Joao Simon MD [Primary Care Provider] - Within 1 Month Disposition Disposition (needs filled in before D/C Order can be placed): Prison Facility Charges/Coding Visit Charges Inpatient E&M: 11256 SNF Disch >30 Min
--- NOTE | 2021-11-04 15:16 | TREXTCAR_ITS ---
Diet 11/02/21 17:45 Diet: Cardiac - Heart Healthy Food consistency:: Regular Liquid Consistency:: Regular/Thin Routine Orders/Code Status Routine Lab Work: BMP (In 1 week) and INR (Weekly) Code Status: DNRCC-A Therapies Physical Therapy: Eval and Treat Occupational Therapy: Eval and Treat Problem/Diagnosis (1) Acute metabolic encephalopathy: Status: Acute (2) Acute hyponatremia: Status: Acute (3) Hypokalemia: Status: Acute (4) Frequent falls: Status: Acute (5) Poor balance: Status: Acute (6) Memory loss: Status: Acute Allergies/Procedures Done in Hospital Allergies Penicillins Allergy (Verified 11/02/21 11:51) Anaphylaxis acetaminophen [From Vicodin] Adverse Reaction (Verified 11/02/21 11:51) Itching codeine Adverse Reaction (Verified 11/02/21 11:51) Nausea ezetimibe [From Zetia] Adverse Reaction (Verified 11/02/21 11:51) Itching hydrocodone bitartrate [From Vicodin] Adverse Reaction (Verified 11/02/21 11:51) Itching Zebtnke-Xai-Pbf Reductase Inhibitor Adverse Reaction (Verified 11/02/21 11:51) Other Procedures: None Type of Care/Length of Stay Estimated LOS: Convalescent Care Less Than 30 days Type of Care Needed: Skilled Rehab Potential: Good Prognosis: Good Additional Orders/Day of Discharge Day of Discharge: 11/04/21 Discharge Plan Admission Admit Date/Time: 11/02/21 15:29 Primary Reason for Your Visit: Falls/Confusion Attending Provider: Gail Avina Primary Care Provider: Joao Simon Consulting Providers: Luci Hess Discharge Orders/Prescriptions Prescriptions: New amlodipine 5 mg Tablet 5 mg PO DAILY Qty: 30 RF: 0 furosemide 20 mg Tablet 20 mg PO DAILY Qty: 30 RF: 0 Continued trazodone 100 mg tablet 100 mg PO QHS RF: 0 albuterol sulfate [Ventolin HFA] 90 mcg/actuation HFA aerosol inhaler 2 puff inhalation Q6H PRN (Reason: Wheezing) RF: 0 losartan 100 mg tablet 100 mg PO DAILY RF: 0 atorvastatin 40 MG tablet 40 mg PO QHS RF: 0 venlafaxine 75 MG tablet 75 mg PO QHS RF: 0 venlafaxine 150 mg Capsule,Extended Release 24hr 150 mg PO BREAKFAST RF: 0 warfarin 5 MG tablet 5 mg PO DAILY RF: 0 warfarin 2 mg Tablet 2 mg PO DAILY RF: 0 metoprolol tartrate 50 mg tablet 100 mg PO BID RF: 0 hydroxychloroquine 200 mg tablet 200 mg PO BID RF: 0 Discontinued alprazolam 0.5 mg tablet 0.5 - 1 mg PO BID PRN PRN (Reason: Anxiety) RF: 0 hydrochlorothiazide 25 mg tablet 25 mg PO DAILY Qty: 90 RF: 3 Referrals / Follow Up: Joao Simon MD [Primary Care Provider] - Within 1 Month Disposition Disposition (needs filled in before D/C Order can be placed): Group Home Facility
--- NOTE | 2021-11-04 15:55 | NURSING ---
attempted to call report to tcu
--- NOTE | 2021-11-04 17:01 | NURSING ---
report called to humberto in tcu. pt will go to room 5, pt and daughter aware.
== END 2021-11-04 17:48 ==
LOC: ED 15:15 → MS3 15:51
PROVIDERS: Admitting Provider Student in an Organized Health Care Education/Training Program; Emergency Provider Emergency Medicine; PCP Family Medicine; Visit Provider Internal Medicine
DX: E87.1 Hypo-osmolality and hyponatremia (principal); G20 Parkinson's disease; M06.9 Rheumatoid arthritis, unspecified; I48.0 Paroxysmal atrial fibrillation; Z87.891 Personal history of nicotine dependence; R26.89 Other abnormalities of gait and mobility; F32.A Depression, unspecified; F41.9 Anxiety disorder, unspecified; E87.6 Hypokalemia; I10 Essential (primary) hypertension; I25.10 Atherosclerotic heart disease of native coronary artery without angina pectoris; R53.81 Other malaise; R41.3 Other amnesia; R11.0 Nausea; G93.41 Metabolic encephalopathy; Z79.01 Long term (current) use of anticoagulants; Z79.899 Other long term (current) drug therapy; Z95.1 Presence of aortocoronary bypass graft; I25.2 Old myocardial infarction; Z86.718 Personal history of other venous thrombosis and embolism; Z91.81 History of falling; Z86.711 Personal history of pulmonary embolism
CPT/HCPCS: 36415; 70450; 71045; 80048; 81001; 83930; 83935; 84300; 84484; 85025; 85610; 87426; 93005; 96361; 96374; 97162; 97166; 99218; 99285; J7030; A4216; G0378

== ENCOUNTER 2021-11-04 18:19 | Inpatient (IN) | payer MEDICARE, SELFPAY ==
[2021-11-04 18:29] VITALS: BP 147/89; PULSE 75; RESP 16; TEMP 36.2; O2SAT 95; BMI 33.1
[2021-11-04] MEDS: Venlafaxine HCl 75 MG Tablet PO (20:18)
[2021-11-04] MEDS: traZODone 100 MG Tablet PO (20:18)
[2021-11-04] MEDS: Atorvastatin Calcium 40 MG Tablet PO (20:18)
--- NOTE | 2021-11-04 22:18 | HP.PCM_ITS ---
HPI - General General Date of Admission: 11/04/21 HPI Narrative 11/02/2021 ERASTO RICHARDSON, is a 86 Female who presents to [facility] Emergency Department with confusion. 11/02/2021 EKG sinus rhythm with fusion complexes, LVH with repolarization abnormality. Increasing confusion, recent fall, more confused since fall. Mild nausea. Sodium 129, K 3.2, K replaced, Normal saline IV started. Urine negative, INR 2.2, CT head negative, Chest X-ray negative. Recent change from Furosemide to HCTZ. 11/02/2021 Admit to Hospital. Normal saline IV, serum osmolality, urine osmolality, urine sodium for hyponatremia. PT/OT for debility. Consider evaluation for dementia. Replace potassium. 11/03/2021 Feeling better, admits to memory issues. Discontinue IV fluids, stop HCTZ , restart Lasix for hyponatremia. PT/OT for custodial facility. 11/04/2021 Admit to TCU with debility, here for rehabilitation, strengthening, prior to discharge home alone. [facility] Medical History Atherosclerotic heart disease of [place] coronary artery without angina pectoris Atrial fibrillation with RVR (10/01/16) Bilateral breast cancer Depression Essential hypertension History of non-ST elevation myocardial infarction (NSTEMI) (10/01/16) History of pulmonary embolus (PE) Hypercoagulable state detention current use of anticoagulant Nonrheumatic aortic (valve) stenosis Parkinsonian syndrome Paroxysmal atrial fibrillation Postoperative atrial fibrillation (04/04/13) Recurrent deep vein thrombosis (DVT) Restrictive airway disease Rheumatoid arthritis Home Medications atorvastatin 40 mg PO QHS 10/01/16 [History Last Taken 11/01/21] venlafaxine 75 mg PO QHS 02/14/19 [History Last Taken 11/01/21] albuterol sulfate 90 mcg/actuation aerosol inhaler 2 puff INHALATION Q6H PRN 09/23/21 [History Last Taken Unknown] losartan 100 mg tablet 100 mg PO DAILY tab 09/23/21 [History Last Taken Unknown] trazodone 100 mg tablet 100 mg PO QHS tab 09/23/21 [History Last Taken 11/01/21] hydroxychloroquine 200 mg PO BID 11/02/21 [History Last Taken 11/01/21] metoprolol tartrate 100 mg PO BID 11/02/21 [History Last Taken 11/01/21] venlafaxine 150 mg PO BREAKFAST 11/02/21 [History Last Taken 11/01/21] warfarin 2 mg PO DAILY 11/02/21 [History Last Taken 11/01/21] warfarin 5 mg PO DAILY 11/02/21 [History Last Taken 11/01/21] amlodipine 5 mg PO DAILY 11/04/21 [History Last Taken Unknown] furosemide 20 mg PO DAILY 11/04/21 [History Last Taken Unknown] Allergy/AdvReac Type Severity Reaction Status Date / Time Penicillins Allergy Anaphylaxis Verified 11/02/21 11:51 acetaminophen [From Vicodin] AdvReac Itching Verified 11/02/21 11:51 codeine AdvReac Nausea Verified 11/02/21 11:51 ezetimibe [From Zetia] AdvReac Itching Verified 11/02/21 11:51 hydrocodone bitartrate AdvReac Itching Verified 11/02/21 11:51 [From Vicodin] Trimwaa-ZDT-ByR Reductase AdvReac Other Verified 11/02/21 11:51 Inhibitor [Nwaulbf-Vyt-Ncu Reductase Inhibitor] Surgical History 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 Joseph Rouse MD) household members: none Smoking Status: Former smoker how long ago did patient quit smokin, 1ppd second hand exposure: Yes alcohol intake: never substance use type: does not use ROS Constitutional Constitutional: Denies chills, fever(s) or weight gain ENT HEENT: Denies headache(s), nasal congestion or nasal discharge Cardiovascular Cardiovascular: Denies chest pain or palpitations Respiratory/Chest Respiratory/Chest: Denies cough, excessive phlegm production or shortness of breath with exertion Gastrointestinal Gastrointestinal: Denies abdominal pain, nausea or vomiting Genitourinary Genitourinary: Denies dysuria Musculoskeletal Musculoskeletal: Denies joint pain or joint swelling Integumentary Integumentary: Denies rash or wounds Neurologic Neurologic: Denies focal weakness, numbness or tingling Psychiatric Psychiatric: Denies anxiety, auditory hallucinations, depression, homicidal ideation or suicidal ideation Vital Signs Vital Signs Vital Signs: 11/04/21 18:29 Temperature 97.1 F L Temperature Source Temporal Pulse Rate 75 Pulse Rhythm Regular Pulse Strength Normal (2+) Respiratory Rate 16 Respiratory Effort Normal Non-Labored Respiratory Depth Normal Respiratory Pattern Normal Blood Pressure 147/89 H Blood Pressure Mean 108 Blood Pressure Source Monitor Blood Pressure Position Sitting Blood Pressure Location Left Arm Pulse Ox 95 Oxygen Delivery Method Room Air Weight Weight: 77.02 kg Body Mass Index (BMI) 33.1 Physical Exam Const alert General Appearance: cooperative HEENT normocephalic Eyes PERRL and EOMs intact bilaterally Neck supple, no JVD and no carotid bruits Resp normal respiratory effort, normal air movement and clear to auscultation bilaterally Cardio regular rate and regular rhythm GI normal to inspection, nondistended, normoactive bowel sounds, non-tender and non-distended Extremity normal capillary refill General Extremity: Negative for edema Skin no rashes or lesions noted General Skin Exam: no breakdown Psych affect normal Appearance: appropriate Results Lab / Micro Data Result Diagrams: 11/05/21 05:21 11/05/21 05:21 Assessment & Plan Assessment/Plan (1) Debility: (2) Acute metabolic encephalopathy: (3) Acute hyponatremia: (4) Hypokalemia: (5) Atrial fibrillation: (6) Hyperlipidemia: (7) Restrictive lung disease: (8) Edema: (9) Hypertension: (10) Coronary artery disease: (11) Insomnia: (12) Depression: PLAN: 86 year old female with below past medical history hospitalized for acute metabolic encephalopathy secondary to hyponatremia, complicated by hypokalemia, admitted to TCU with debility, here for rehabilitation, strengthening, prior to discharge home alone. * Debility - PT/OT. * Pain - Monitor, Tylenol allergy. * Bowel - Senna/colace 1 tablet bid, Dulcolax 10mg daily prn. * Adult immunization - Administer pneumonia vaccine, covid19 vaccine, flu vaccine as appropriate. * DVT prophylaxis - Not necessary, on warfarin. * Restrictive airway disease - Albuterol 2 puffs q6h prn. * Hypertension - Metoprolol 100mg bid, Losartan 100mg daily, Amlodipine 5mg daily. * Hyperlipidemia - Atorvastatin 40mg qhs. * Chronic diastolic congestive heart failure - Metoprolol 100mg bid, Losartan 100mg daily, Furosemide 20mg daily. * Coronary artery disease - Metoprolol 100mg bid, Losartan 100mg daily, warfarin. * Rheum - Plaquenil 200mg bid. * Tinea Corporis - Nystatin powder topical bid. * Insomnia - Trazodone 100mg qhs. * Depression - Venlafaxine 150mg am, 75mg qhs, stable chronic fpc use, GDR not recommended. * Atrial fibrillation - Metoprolol 100mg bid, warfain 7mg daily, monitor INR. * Hypokalemia - Replace potassium.
[2021-11-05 05:56] LABS: Absolute Lymphocyte Count 2.23 X10^3/uL (0.83-4.51); Absolute Neutrophil Count 3.9 X10^3/uL (2.0-7.7); Basophil# 0.05 X10^3/uL; Basophil% 0.7 % (0-1); Eosinophil# 0.18 X10^3/uL; Eosinophils% 2.6 % (0-5); Hematocrit 37.5 % (37-47); Hemoglobin 12.8 g/dL (12.0-15.0); Lymphocyte # 2.23 X10^3/ul (0.83-4.51); Lymphocyte % 31.9 % (19-41); Mean Corp Hgb Conc 34.1 g/dL (32-36); Mean Corpuscular Hgb 31.2 pg (27.0-32.0); Mean Corpuscular Volume 91.5 fL (81-99); Mean Platelet Vol. 10.1 fl (6.2-12.0); Monocyte# 0.59 X10^3/uL; Monocyte% 8.4 % (0-10); NRBC Flagged by Analyzer 0 % (0-5); Neutrophil # 3.91 X10^3/uL (2.7-7.7); Platelet Count 211 K/mm3 (150-450); RBC Distribution Width CV 12.4 % (11.6-14.6); RBC Distribution Width SD 41.1 fl (35.1-43.9)
[2021-11-05 06:07] LABS: International Normalized Ratio 3.5; Prothrombin Time (Protime)PT. 34.6 SECONDS (11.7-14.9)
[2021-11-05 06:21] LABS: Anion Gap 5 (5-15); BUN 13 mg/dL (7-18); BUN/Creat Ratio 20.7 RATIO (10-20); Calcium,Total 8.4 mg/dL (8.5-10.1); Chloride 103 mmol/L (98-107); Creatinine, Serum 0.63 mg/dL (0.55-1.02); EST Glomerular Filtration Rate 96 mL/min (>60); Est Glom Filt Rate - Afr Amer 116 mL/min (>60); Estimated Creatinine Clearance 30.08 ml/min; Glucose 109 mg/dL (74-106); Potassium 3.2 mmol/L (3.5-5.1); Sodium Level 136 mmol/L (136-145)
[2021-11-05 06:37] VITALS: BP 158/61; PULSE 73
[2021-11-05] MEDS: amLODIPine 5 MG Tablet PO (06:37)
[2021-11-05] MEDS: Hydroxychloroquine 200 MG Tablet PO ×2 (06:37→17:44)
[2021-11-05] MEDS: Furosemide 20 MG Tablet PO (06:37)
[2021-11-05] MEDS: Losartan Potassium 100 MG Tablet PO (06:37)
[2021-11-05] MEDS: Metoprolol Tartrate 100 MG Tablet PO ×2 (06:37→17:44)
[2021-11-05] MEDS: Nystatin Powder 15gm Bottle 1 APPLIC TOPICAL ×2 (06:40→17:48)
[2021-11-05 06:46] VITALS: BP 158/61; PULSE 73; RESP 16; TEMP 36.3; O2SAT 94
[2021-11-05] MEDS: Potassium Chloride Oral Tablet 20 MEQ 40 MEQ PO (08:38)
[2021-11-05] MEDS: Potassium Chloride Oral Tablet 20 MEQ PO (08:39)
[2021-11-05] MEDS: Venlafaxine HCl 75 MG Tablet 150 MG PO (08:39)
[2021-11-05] MEDS: Tuberculin,Purif.prot.deriv. 50 TU/ML Vial 0.1 ML ID (09:03)
--- NOTE | 2021-11-05 14:20 | CASEMGMT ---
Social Work See attached assessment for complete details. Patient with previous stay on the transitional care unit. MOLST form to stay the same per patient. Patient plans to discharge to an assisted living at time of discharge, not sure which one at this point. Patient with insurance update due on 11/10/2021 and educated on insurance update/approval process. Patient with no further questions. Lance CARTER, MAE-S
[2021-11-05 14:47] VITALS: BP 109/62; PULSE 67; RESP 16; TEMP 35.9; O2SAT 97
--- NOTE | 2021-11-05 15:57 | CHAPLAIN ---
Type of Pastoral Visit _x__ Initial Visit ___ Follow-up Visit ___ On-call Visit ___ General Patient Visit ___ Spiritual Assessment ___ Family Conference ___ Bereavement ___ Rapid Response ___ Code Blue ___ Other (describe below) Pastoral Care Referral From _x__ Patient ___ Family ___ Nurse ___ Physician ___ Attendant Child Activity ___ Voucher Clerk ___ Other (describe below) Sacrament/Intervention _x__ Active listening ___ Anointing ___ Religion ___ Bereavement ___ Communion ___ Pauline exploration ___ ___ Life review _x__ Prayer ___ Reconciliation ___ Sacrament of Sick ___ Supportive presence ___ Wedding ___ Other (describe below) Pastoral Comments brief review of life at home since patient was last admitted to this unit; pt goal is to get stronger and be safe at home alone; pt has been careful of her health since the pandemic; pt welcomes prayer and presence
[2021-11-05 17:44] VITALS: BP 157/73; PULSE 72
[2021-11-05] MEDS: Senna/Docusate Sodium 1 Tablet PO (17:45)
[2021-11-05] MEDS: Atorvastatin Calcium 40 MG Tablet PO (21:32)
[2021-11-05] MEDS: Venlafaxine HCl 75 MG Tablet PO (21:32)
[2021-11-05] MEDS: traZODone 100 MG Tablet PO (21:33)
[2021-11-05] MEDS: ALPRAZolam 0.25 MG Tablet PO (21:37)
[2021-11-05 22:21] VITALS: PULSE 74; RESP 16; O2SAT 98
[2021-11-06 05:00] VITALS: BP 174/74; PULSE 71; RESP 17; TEMP 35.8; O2SAT 98
[2021-11-06] MEDS: Losartan Potassium 100 MG Tablet PO (06:04)
[2021-11-06 06:05] VITALS: BP 174/74; PULSE 71
[2021-11-06] MEDS: Furosemide 20 MG Tablet PO (06:05)
[2021-11-06] MEDS: Metoprolol Tartrate 100 MG Tablet PO ×2 (06:05→16:59)
[2021-11-06] MEDS: Nystatin Powder 15gm Bottle 1 APPLIC TOPICAL ×2 (06:06→21:05)
[2021-11-06] MEDS: amLODIPine 5 MG Tablet PO (06:06)
[2021-11-06] MEDS: Senna/Docusate Sodium 1 Tablet PO ×2 (06:07→17:00)
[2021-11-06] MEDS: Hydroxychloroquine 200 MG Tablet PO ×2 (06:07→17:00)
[2021-11-06] MEDS: Venlafaxine HCl 75 MG Tablet 150 MG PO (08:56)
[2021-11-06] MEDS: Potassium Chloride Oral Tablet 20 MEQ PO (08:56)
[2021-11-06 10:10] VITALS: PULSE 68; RESP 18; O2SAT 96
--- NOTE | 2021-11-06 14:19 | NURSING ---
PER PT DAUGHTER,PT HAS APPOINTMENT WITH DR. MCCURDY ON 11/10/21 AT 1500 FOR A ECO. DAUGHTER STATED APPOINTMENT WAS MADE WAY BACK AND WOULD LIKE TO KEEP IT IF POSSIBLE. PLEASE CALL OFFICE ON MONDAY TO CONFIRM. LEFT MESSAGE ALSO FOR Kym YOUNG
[2021-11-06 16:53] VITALS: BP 155/77; PULSE 70; RESP 18; TEMP 36.4; O2SAT 96
[2021-11-06 16:59] VITALS: BP 155/77; PULSE 70
--- NOTE | 2021-11-06 17:03 | NURSING ---
THIS NURSE CAUGHT PT UP IN ROOM WALKING. ASKED PT IF THERE WAS SOME THING I COULD HELP HER WITH PT STATED NO I JUST WENT TO THE BATH ROOM AND GOT MY NIGHT CLOTHES OUT. THIS NURSE EDUCATED PT ON USE OF THE CALL LIGHT AND THAT WE DID NOT WANT HER TO FALL. PT STATED SHE DID NOT KNOW AND UNDER STOOD.
[2021-11-06] MEDS: traZODone 100 MG Tablet PO (21:05)
[2021-11-06] MEDS: Venlafaxine HCl 75 MG Tablet PO (21:05)
[2021-11-06] MEDS: Atorvastatin Calcium 40 MG Tablet PO (21:06)
[2021-11-06] MEDS: ALPRAZolam 0.25 MG Tablet PO (21:07)
[2021-11-07 05:00] VITALS: BP 140/67; PULSE 67
[2021-11-07 06:08] VITALS: BP 140/74; PULSE 67
[2021-11-07] MEDS: Senna/Docusate Sodium 1 Tablet PO ×2 (06:08→17:46)
[2021-11-07] MEDS: Metoprolol Tartrate 100 MG Tablet PO ×2 (06:08→17:45)
[2021-11-07] MEDS: Hydroxychloroquine 200 MG Tablet PO ×2 (06:08→17:46)
[2021-11-07] MEDS: Nystatin Powder 15gm Bottle 1 APPLIC TOPICAL ×2 (06:08→20:52)
[2021-11-07] MEDS: amLODIPine 5 MG Tablet PO (06:08)
[2021-11-07] MEDS: Furosemide 20 MG Tablet PO (06:08)
[2021-11-07] MEDS: Losartan Potassium 100 MG Tablet PO (06:08)
[2021-11-07 06:55] LABS: Anion Gap 3 (5-15); BUN 14 mg/dL (7-18); BUN/Creat Ratio 22.2 RATIO (10-20); Calcium,Total 8.9 mg/dL (8.5-10.1); Chloride 106 mmol/L (98-107); Creatinine, Serum 0.63 mg/dL (0.55-1.02); EST Glomerular Filtration Rate 96 mL/min (>60); Est Glom Filt Rate - Afr Amer 116 mL/min (>60); Estimated Creatinine Clearance 30.08 ml/min; Glucose 107 mg/dL (74-106); Sodium Level 139 mmol/L (136-145)
[2021-11-07] MEDS: Potassium Chloride Oral Tablet 20 MEQ PO (08:39)
[2021-11-07] MEDS: Venlafaxine HCl 75 MG Tablet 150 MG PO (08:40)
[2021-11-07 13:34] VITALS: PULSE 64; RESP 20; O2SAT 96
[2021-11-07 14:55] VITALS: BP 143/54; TEMP 36.6
[2021-11-07 17:45] VITALS: BP 143/54; PULSE 64
[2021-11-07 20:15] VITALS: O2SAT 97
[2021-11-07] MEDS: Venlafaxine HCl 75 MG Tablet PO (20:44)
[2021-11-07] MEDS: traZODone 100 MG Tablet PO (20:44)
[2021-11-07] MEDS: Atorvastatin Calcium 40 MG Tablet PO (20:44)
[2021-11-07] MEDS: ALPRAZolam 0.25 MG Tablet PO (20:50)
[2021-11-08 05:50] VITALS: BP 132/74; PULSE 64
[2021-11-08] MEDS: Furosemide 20 MG Tablet PO (05:55)
[2021-11-08] MEDS: amLODIPine 5 MG Tablet PO (05:55)
[2021-11-08] MEDS: Senna/Docusate Sodium 1 Tablet PO (05:55)
[2021-11-08] MEDS: Losartan Potassium 100 MG Tablet PO (05:55)
[2021-11-08] MEDS: Nystatin Powder 15gm Bottle 1 APPLIC TOPICAL ×2 (05:59→17:29)
[2021-11-08 06:08] LABS: Prothrombin Time (Protime)PT. 30.5 SECONDS (11.7-14.9)
[2021-11-08] MEDS: Potassium Chloride Oral Tablet 20 MEQ PO (08:38)
[2021-11-08] MEDS: Venlafaxine HCl 75 MG Tablet 150 MG PO (08:38)
[2021-11-08] MEDS: Hydroxychloroquine 200 MG Tablet PO ×2 (08:38→17:29)
[2021-11-08 11:00] VITALS: BP 110/64; PULSE 71
[2021-11-08] MEDS: Metoprolol Tartrate 100 MG Tablet PO ×2 (11:00→20:58)
--- NOTE | 2021-11-08 11:54 | CASEMGMT ---
Social Work Telephone call from [facility] Fern[facility] wan. Fernandez reports to have spoken with patient daughter, Brooke and they are holding a room. Fernandez requesting for clinical information to be able to determine level of care for patient. Telephone call to Brooke Cox confirms above information. Met with patient in room. This social services confirming above information. Patient confirms with plan for patient to transition to [facility] at time of discharge. Medical team updated Clinical information sent via secure e-mail to Fernandez at [facility]. Fernandez to initiate [facility] to complete assessment of patient. No discharge date. Patient with insurance update due on 11/10/2021 patient juan Cox updated on this. Will continue to follow. Lance CARTER, SHERLYS
[2021-11-08 14:00] VITALS: BP 118/68; PULSE 68; RESP 20; TEMP 36.2; O2SAT 99
--- NOTE | 2021-11-08 15:59 | PHA.CONS_ITS ---
TCU RX Drug Regimen Review Subjective: [86yof admitted to TCU on 11/04 for debility, strength and conditioning. Pt was transferred from inpatient admission 11/02-11/04 for metabolic encephalopathy and hyponatremia. Note that pt was on HCTZ which was stopped due to the hyponatremia.] Objective: Allergies Penicillins Allergy (Verified 11/02/21 11:51) Anaphylaxis acetaminophen [From Vicodin] Adverse Reaction (Verified 11/02/21 11:51) Itching codeine Adverse Reaction (Verified 11/02/21 11:51) Nausea ezetimibe [From Zetia] Adverse Reaction (Verified 11/02/21 11:51) Itching hydrocodone bitartrate [From Vicodin] Adverse Reaction (Verified 11/02/21 11:51) Itching Cyidpcl-MFN-AfR Reductase Inhibitor [Dvfcgay-Vfi-Uie Reductase Inhibitor] Adverse Reaction (Verified 11/02/21 11:51) Other Current Medications Generic Name Dose Route Start Last Admin Trade Name Freq PRN Reason Stop Dose Admin Albuterol Sulfate 2 puff 11/04/21 18:41 Albuterol Sulfate 8 Gm Inhaler (60 Puffs) INHALATION Q6H PRN Wheezing Alprazolam 0.25 mg 11/05/21 08:15 11/07/21 20:50 Alprazolam 0.25 Mg Tablet PO 0.25 mg QHS PRN PRN Administration ANXIETY/RESTLESSNESS/SLEEP Amlodipine Besylate 5 mg 11/05/21 06:00 11/08/21 05:55 Amlodipine 5 Mg Tablet PO 5 mg DAILY WALESKA Administration Atorvastatin Calcium 40 mg 11/04/21 22:00 11/07/21 20:44 Atorvastatin Calcium 40 Mg Tablet PO 40 mg QHS WALESKA Administration Bisacodyl 10 mg 11/04/21 22:35 Bisacodyl 5 Mg Tablet PO DAILY PRN Constipation COVID-19 Vaccine mRNA LNP-S (PFR) (PF) 30 mcg 11/09/21 11:00 Covid-19 Vacc, Mrna(Pfizer)/Pf 30 Mcg/0.3 Ml Syringe IM 11/09/21 11:01 .ONCE ONE Furosemide 20 mg 11/05/21 06:00 11/08/21 05:55 Furosemide 20 Mg Tablet PO 20 mg DAILY WALESKA Administration Hydroxychloroquine Sulfate 200 mg 11/08/21 08:00 11/08/21 08:38 Hydroxychloroquine 200 Mg Tablet PO 200 mg BIDCM WALESKA Administration Losartan Potassium 100 mg 11/05/21 06:00 11/08/21 05:55 Losartan Potassium 100 Mg Tablet PO 100 mg DAILY WALESKA Administration Metoprolol Tartrate 100 mg 11/08/21 10:00 11/08/21 11:00 Metoprolol Tartrate 100 Mg Tablet PO 100 mg 1000,2200 WALESKA Administration Nystatin 1 applic 11/05/21 06:00 11/08/21 05:59 Nystatin Powder 15gm Bottle TOPICAL 1 applic BID WALESKA Administration Protocol Potassium Chloride 20 meq 11/05/21 08:00 11/08/21 08:38 Potassium Chloride Oral Tablet 20 Meq PO 20 meq DAILYCM WALESKA Administration Senna/Docusate Sodium 1 tablet 11/05/21 06:00 11/08/21 05:55 Senna/Docusate Sodium 1 Tablet PO 1 tablet BID WALESKA Administration Sodium Chloride 10 - 40 ml 11/04/21 18:51 0.9% Saline Lock 10 Ml Syringe IV UD PRN SALINE FLUSH Trazodone HCl 100 mg 11/04/21 22:00 11/07/21 20:44 Trazodone 100 Mg Tablet PO 100 mg QHS WALESKA Administration Tuberculin PPD 0.1 ml 11/12/21 10:00 Tuberculin,Purif.Prot.Deriv. 50 Tu/Ml Vial ID 11/12/21 10:01 X1 ONE Venlafaxine HCl 75 mg 11/04/21 22:00 11/07/21 20:44 Venlafaxine Hcl 75 Mg Tablet PO 75 mg QHS WALESKA Administration Venlafaxine HCl 150 mg 11/05/21 08:00 11/08/21 08:38 Venlafaxine Hcl 75 Mg Tablet PO 150 mg BREAKFAST WALESKA Administration Warfarin Sodium 5 mg 11/05/21 17:00 11/07/21 17:45 Warfarin 5 Mg Tablet PO 5 mg 1700 WALESKA Administration Warfarin Sodium 1 mg 11/05/21 17:00 11/07/21 17:45 Warfarin 1 Mg Tablet PO 1 mg 1700 WALESKA Administration Problem List (Last Reviewed 11/04/21 @ 22:[address] Joseph Rouse MD) Depression (Acute) Insomnia (Acute) Coronary artery disease (Acute) Hypertension (Chronic) Edema (Acute) Restrictive lung disease (Acute) Hyperlipidemia (Acute) Atrial fibrillation (Acute) Debility (Acute) Acute metabolic encephalopathy (Acute) Acute hyponatremia (Acute) Hypokalemia (Acute) Vital Signs Temp Pulse Resp BP Pulse Ox 97.9 F 71 20 H 110/64 97 11/07/21 14:55 11/08/21 11:00 11/07/21 13:34 11/08/21 11:00 11/07/21 20:15 Oxygen Delivery Method Room Air Weight: 77.02 kg Body Mass Index (BMI) 33.1 Sodium 139 mmol/L (136-145) 11/07/21 06:05 Potassium 4.0 mmol/L (3.5-5.1) 11/07/21 06:05 Chloride 106 mmol/L (98-107) 11/07/21 06:05 Carbon Dioxide 30.0 mmol/L (21.0-32.0) 11/07/21 06:05 Anion Gap 3 (5-15) L 11/07/21 06:05 BUN 14 mg/dL (7-18) 11/07/21 06:05 Creatinine 0.63 mg/dL (0.55-1.02) 11/07/21 06:05 Est GFR (MDRD) Af Amer 116 mL/min (>60) 11/07/21 06:05 Est GFR (MDRD) Non-Af 96 mL/min (>60) 11/07/21 06:05 BUN/Creatinine Ratio 22.2 RATIO (10-20) H 11/07/21 06:05 Glucose 107 mg/dL (74-106) H 11/07/21 06:05 Assessment/Plan: 1. CAD s/p NSTEMI and CABG/ CHF with preserved EF: Currently on atorvastatin 40mg qhs, losartan 100mg po daily, metoprolol 100mg po bid, furosemide 20mg po daily. Last lipid profile done in 10/2020 - LDL 71, HDL 42. AST/AST nl in 05/2021. Consider checking lipid profile annually, check AST/ALT periodicially and if sign/sx of hepatoxicity. BP has ranged from 109/62-174/75, HR 64-75. SCr = 0.63, K 4.0. Continue to monitor BP/HR, symptoms of orthostasis/dizziness for losartan and metoprolol, renal function/K for losartan/furosemide. 2. Hypertension- Currently on losartan 100mg po daily, metoprolol 100mg po bid, amlodipine 5mg po daily. Note that HCTZ was recently discontinued for hyponatremia (Na now normal), amlodipine just added. BP has ranged from 109/62- 174/75, HR 64-75. SCr = 0.63, K 4.0. Blood pressures have been improved since the initiation of amlodipine on 11/05 (110-140s SBP). Continue to monitor BP/HR, symptoms of orthostasis/dizziness, renal function/K for losartan. 3. H/O atrial fibrillation: Currently on metoprolol 100mg po bid for rate control and anticoagulated with warfarin. HR has been controlled (64-75). INR 3.0 on 11/08/21. Hgb 12.8 on 11/05/21. Monitor for palpitations, dizziness, volume overload. Continue to monitor INR at least twice weekly or more often as indicated for signs/sx of bleeding or initiation of interacting medications. 4. H/O PE and DVT: Chronically anticoagulated with warfarin- current dose is 6mg po daily. INR 3.0 on 11/08/21. Hgb 12.8 on 11/05/21. Monitor for leg swelling or pain, SOB, CP. Continue to monitor INR at least twice weekly or more often as indicated for signs/sx of bleeding or initiation of interacting medications. 5. Hypokalemia: K was low (3.2) on 11/05/21, likely due to furosemide therapy for heart failure. On KCL 20 mEq po daily. K now normal (4.0 on 11/07). Monitor for upset stomach, po intake as well as serum potassium periodically. 6. H/O rheumatoid arthritis: Currently on hydroxychloroquine 200mg po bid. CBC, liver function and renal function normal. Continue to monitor for sx of RA or muscle weakness (can cause myopathy with long-term use), vision changes as well as CBC, liver function, and renal function periodically during therapy, blood glucose (if symptoms of hypoglycemia occur). 7. Constipation: Currently on senna-S 1 tab po bid, bisacodyl 10mg po daily prn. Has not used any doses of bisacodyl prn since admit to TCU. Monitor for constipation/diarrhea. 8. Skin integrity: Currently on mycostatin topically BID to groin. Monitor for erythema, skin breakdown, s/sx of infection. 9. H/O airway disease: Currently on albuterol 2 puffs q6h prn wheezing. Has not used any doses since admission to TCU. Monitor for wheezing/SOB. Assessment/Plan for indications treated with psychotropic medications: 10. Anxiety disorder/Insomnia: currently on alprazolam 0.25mg po qhs prn anxiety/restlessness/sleep and trazadone 100mg po qhs. Note that pt is on a reduced dose of alprazolam - was prescribed 0.5mg po bid prior to admission. Note that pt does have h/o recent falls and alprazolam is a [employer] medication, however, pt was hyponatremic at time of falls and pt is now on lower dose of alprazolam. Monitor anxiety, sleep, falls, cognition, sedation. Would not consider reduction in trazadone dose until patient is able to be tapered completely off of alprazolam. 11. Depression: Currently on venlafaxine 150mg AM, 75mg HS. Note that use is chronic and stable for diagnosis of depression and GDR is not recommended by attending physician. BP as above, Na now normal. Monitor mood/affect as well as BP (can cause hypertension), sodium, sx of bleeding (can increase risk of bleeding with anticoagulation), AST/ALT if indication of hepatoxicity. Medical chart and medication regimen reviewed. The following medication irregularities or issues were identified: NONE Please note that alprazolam is a [employer] list medication, please continue to evaluate risks versus benefit for use of medication. Pt does have h/o falls in last several weeks, however, was also hyponatremic at the time of the occurrence of these falls. Noted that dose of alprazolam has been reduced, consider continuing to attempt to taper off of alprazolam. Date of Note:: 11/08/21
[2021-11-08 20:58] VITALS: BP 143/74; PULSE 65
[2021-11-08] MEDS: ALPRAZolam 0.25 MG Tablet PO (20:58)
[2021-11-08] MEDS: Atorvastatin Calcium 40 MG Tablet PO (20:58)
[2021-11-08] MEDS: traZODone 100 MG Tablet PO (20:59)
[2021-11-08] MEDS: Venlafaxine HCl 75 MG Tablet PO (20:59)
[2021-11-09 06:00] VITALS: BP 132/67; PULSE 64
[2021-11-09] MEDS: amLODIPine 5 MG Tablet PO (06:04)
[2021-11-09] MEDS: Furosemide 20 MG Tablet PO (06:04)
[2021-11-09] MEDS: Senna/Docusate Sodium 1 Tablet PO (06:04)
[2021-11-09] MEDS: Losartan Potassium 100 MG Tablet PO (06:04)
[2021-11-09] MEDS: Nystatin Powder 15gm Bottle 1 APPLIC TOPICAL ×2 (06:05→17:14)
[2021-11-09] MEDS: Venlafaxine HCl 75 MG Tablet 150 MG PO (08:09)
[2021-11-09] MEDS: Hydroxychloroquine 200 MG Tablet PO ×2 (08:09→17:10)
[2021-11-09] MEDS: Potassium Chloride Oral Tablet 20 MEQ PO (08:09)
[2021-11-09 10:51] VITALS: BP 124/59; PULSE 69
[2021-11-09] MEDS: Metoprolol Tartrate 100 MG Tablet PO ×2 (10:51→20:23)
[2021-11-09] MEDS: COVID-19 VACC, MRNA(PFIZER)/PF 30 MCG/0.3 ML SYRINGE IM (13:44)
[2021-11-09 14:00] VITALS: BP 134/60; PULSE 63; RESP 16; TEMP 36.4; O2SAT 97
--- NOTE | 2021-11-09 14:40 | NURSING ---
Addendum entered by Lacie Sharp 11/09/21 17:07: Xanax and $20.00 sent with pt's friend Demetra per pt request, verified with another nurse RN Meghana Oliveira Original Note: Pt reported to this nurse that she was missing $20.00 and her bottle of xanax from her purse. iso coordinator in room with this nurse while pt was reporting this. This nurse assisted pt in looking in purse and pt was able to locate her $20.00 as well as her bottle of Xanax containing 4 pills. iso coordinator also verified that pt has $20.00 and 4 pills in her prescription bottle of xanax. Xanax, money and new covid booster card locked up and daughter was called and notified. Daughter is to pick it up this evening when she comes in.
[2021-11-09 20:23] VITALS: BP 121/56; PULSE 62
[2021-11-09] MEDS: ALPRAZolam 0.25 MG Tablet PO (20:23)
[2021-11-09] MEDS: Atorvastatin Calcium 40 MG Tablet PO (20:24)
[2021-11-09] MEDS: Venlafaxine HCl 75 MG Tablet PO (20:24)
[2021-11-09] MEDS: traZODone 100 MG Tablet PO (20:24)
[2021-11-10] MEDS: Furosemide 20 MG Tablet PO (05:54)
[2021-11-10] MEDS: Losartan Potassium 100 MG Tablet PO (05:54)
[2021-11-10] MEDS: amLODIPine 5 MG Tablet PO (05:54)
[2021-11-10] MEDS: Nystatin Powder 15gm Bottle 1 APPLIC TOPICAL ×2 (05:56→21:00)
[2021-11-10] MEDS: Hydroxychloroquine 200 MG Tablet PO ×2 (07:54→16:59)
[2021-11-10] MEDS: Venlafaxine HCl 75 MG Tablet 150 MG PO (07:55)
[2021-11-10] MEDS: Potassium Chloride Oral Tablet 20 MEQ PO (07:55)
--- NOTE | 2021-11-10 08:39 | CASEMGMT ---
Addendum entered by Valarie Triplett 11/11/21 08:33: Error/Correction: DC date is 11/12, per pt request Original Note: Social Work IDT met with patient, dtr and friend for care plan meeting. Discussed patient's progress in PT/OT/ST/SN. Explained [employer] insurance with [facility] 11/10 and to anticipate DC date. Offered to set DC date for pt to return to [facility]. Pt/dtr/IDT agreeable to order HHC with previously used agency [facility]. No DME needs. Discussed setting DC date. Per dtr, [place] prefers not to have DC on the weekend. Pt/dtr requesting DC 11/11. IDT agreeable. Dtr to transport at 1300. Referral made to [facility] PT/OT/ST. Plan: DC to [facility] 11/11, [facility] PT/OT/ST RAUL MiW
[2021-11-10 09:23] VITALS: BP 131/61; PULSE 70
[2021-11-10] MEDS: Metoprolol Tartrate 100 MG Tablet PO ×2 (09:23→20:52)
[2021-11-10 09:26] VITALS: BP 131/61; PULSE 70
[2021-11-10 12:12] VITALS: BP 125/69; PULSE 61; RESP 20; TEMP 36.2
[2021-11-10] MEDS: Senna/Docusate Sodium 1 Tablet PO (16:59)
[2021-11-10] MEDS: ALPRAZolam 0.25 MG Tablet PO (20:51)
[2021-11-10] MEDS: traZODone 100 MG Tablet PO (20:51)
[2021-11-10 20:52] VITALS: BP 113/68; PULSE 62
[2021-11-10] MEDS: Venlafaxine HCl 75 MG Tablet PO (20:52)
[2021-11-10] MEDS: Atorvastatin Calcium 40 MG Tablet PO (20:53)
--- NOTE | 2021-11-10 21:06 | PCM.DC.SUM ---
Providers Date of Admission: 11/04/21 Primary Care Physician: Dr. Joao Simon MD Reason For Visit: HYPONATREMIA, METABOLIC ENCEPHALOPATHY, FREQ FALLS Diagnosis Discharge Diagnosis (1) Debility: Status: Acute Code(s): R53.81 - Other malaise (2) Acute metabolic encephalopathy: Status: Acute Code(s): G93.41 - Metabolic encephalopathy (3) Acute hyponatremia: Status: Acute Code(s): E87.1 - Hypo-osmolality and hyponatremia (4) Hypokalemia: Status: Acute Code(s): E87.6 - Hypokalemia (5) Atrial fibrillation: Status: Acute Code(s): I48.91 - Unspecified atrial fibrillation (6) Hyperlipidemia: Status: Acute Code(s): E78.5 - Hyperlipidemia, unspecified (7) Restrictive lung disease: Status: Acute Code(s): J98.4 - Other disorders of lung (8) Edema: Status: Acute Code(s): R60.9 - Edema, unspecified (9) Hypertension: Status: Chronic Code(s): I10 - Essential (primary) hypertension (10) Coronary artery disease: Status: Acute Code(s): I25.10 - Atherosclerotic heart disease of [place] coronary artery without angina pectoris (11) Insomnia: Status: Acute Code(s): G47.00 - Insomnia, unspecified (12) Depression: Status: Acute Code(s): F32.A - Depression, unspecified Medications at Discharge Home Medications atorvastatin 40 mg tablet 40 mg PO QHS cholesterol 10/01/16 venlafaxine 75 mg tablet 75 mg PO QHS BP 02/14/19 albuterol sulfate 90 mcg/actuation aerosol inhaler (Ventolin HFA) 2 puff inhalation Q6H PRN Wheezing 09/23/21 losartan 100 mg tablet 100 mg PO DAILY BP 09/23/21 trazodone 100 mg tablet 100 mg PO QHS Sleep 09/23/21 hydroxychloroquine 200 mg tablet 200 mg PO BID RA 11/02/21 metoprolol tartrate 50 mg tablet 100 mg PO BID HEART 11/02/21 venlafaxine 150 mg capsule,extended release 24 hr 150 mg PO BREAKFAST BP 11/02/21 warfarin 5 mg tablet 5 mg PO DAILY AFIB 11/02/21 alprazolam 0.25 mg tablet 0.25 mg PO QHS PRN PRN Anxiety/Restlessness/Sleep #0 tabs 11/10/21 amlodipine 5 mg tablet 5 mg PO DAILY BP 30 days #30 tabs 11/10/21 furosemide 20 mg tablet 20 mg PO DAILY Fluid retention 30 days #30 tabs 11/10/21 potassium chloride 20 mEq tablet,extended release(part/cryst) (Klor-Con M) 20 meq PO DAILYCM 30 days #30 tabs 11/10/21 warfarin 1 mg tablet (Jantoven) 1 mg PO 1700 30 days #30 tabs 11/10/21 Hospital Course Operations None Procedures None Summary of Care Provided Minutes Spent on Discharge: 35 Hospital Course: 86 year old female with below past medical history hospitalized for acute metabolic encephalopathy secondary to hyponatremia, complicated by hypokalemia, admitted to TCU with debility, here for rehabilitation, strengthening, prior to discharge home alone. Discharge to [facility] 11/11/2021, [facility] PT/OT/ST. Physical Exam Const alert General Appearance: cooperative HEENT normocephalic Eyes PERRL and EOMs intact bilaterally Neck supple, no JVD and no carotid bruits Resp normal respiratory effort, normal air movement and clear to auscultation bilaterally Cardio regular rate and regular rhythm GI normal to inspection, nondistended, normoactive bowel sounds, non-tender and non-distended Extremity normal capillary refill General Extremity: Negative for edema Skin no rashes or lesions noted General Skin Exam: no breakdown Psych affect normal Appearance: appropriate Weight / BMI Weight Weight: 75.931 kg Body Mass Index (BMI) 33.1 ABG / Lab / Microbiology Data Result Diagrams: 11/05/21 05:21 11/07/21 06:05 D/C Instructions Discharge Diet: No restrictions Discharge Activity: Return to Normal Activity, May Shower and Use Walker Weight Bearing Status: Weight bearing as tolerated Call your doctor if you observe: Fever of 101 or Higher, Inability to urinate, Inability to have a bowel movement, Shortness of breath, Dizziness, Fainting spells, Swelling in the ankles, Chest pain and Uncontrolled pain Additional Instructions: Discharge to [facility] 11/11/2021, [facility] PT/OT/ST. Please Follow Up With: When: As scheduled. Meaningful Use Info Meaningful Use Diagnoses (Choose all that apply): None applicable Discharge Plan Admission Admit Date/Time: 11/04/21 18:19 Primary Reason for Your Visit: Debility. Attending Provider: Joseph Rouse Chi Primary Care Provider: Joao Simon Instructions Additional Instructions / Restrictions: Discharge to [facility] 11/11/2021, [facility] PT/OT/ST. Discharge Orders/Prescriptions Prescriptions: New alprazolam 0.25 mg Tablet 0.25 mg PO QHS PRN PRN (Reason: Anxiety/Restlessness/Sleep) Qty: 0 0RF potassium chloride [Klor-Con M20] 20 mEq Tablet,Er Particles/Crystals 20 meq PO DAILYCM 30 Days Qty: 30 0RF warfarin [Jantoven] 1 mg Tablet 1 mg PO 1700 30 Days Qty: 30 0RF Continued trazodone 100 mg tablet 100 mg PO QHS Label Comments: TAKE 1 TABLET BY MOUTH AT BEDTIME albuterol sulfate [Ventolin HFA] 90 mcg/actuation HFA aerosol inhaler 2 puff inhalation Q6H PRN (Reason: Wheezing) losartan 100 mg tablet 100 mg PO DAILY Label Comments: DAUGHTER IS UNSURE IF PT IS STILL TAKING. SHE WILL VERIFY AND CALL WITH UPDATE. atorvastatin 40 MG tablet 40 mg PO QHS Label Comments: CHOLESTEROL venlafaxine 75 MG tablet 75 mg PO QHS venlafaxine 150 mg Capsule,Extended Release 24hr 150 mg PO BREAKFAST warfarin 5 MG tablet 5 mg PO DAILY Label Comments: PT IS CURRENTLY TAKING 7MG DAILY 1 (5MG) AND 1 (2MG) FOR TOTAL DOSE OF 7MG. metoprolol tartrate 50 mg tablet 100 mg PO BID Label Comments: TAKE 2 TABLETS BY MOUTH TWICE DAILY hydroxychloroquine 200 mg tablet 200 mg PO BID Label Comments: TAKE 1 TABLET BY MOUTH TWICE DAILY amlodipine 5 mg tablet 5 mg PO DAILY 30 Days Qty: 30 0RF furosemide 20 mg tablet 20 mg PO DAILY 30 Days Qty: 30 0RF Discontinued warfarin 2 mg Tablet 2 mg PO DAILY Label Comments: PT IS CURRENTLY TAKING 7MG DAILY 1 (5MG) AND 1 (2MG) FOR TOTAL DOSE OF 7MG. Referrals / Follow Up: Joao Simon MD [Primary Care Provider] - Disposition Disposition (needs filled in before D/C Order can be placed): Assisted Living
[2021-11-10 22:46] VITALS: PULSE 62; RESP 16; O2SAT 95
[2021-11-11 06:13] LABS: International Normalized Ratio 2.3; Prothrombin Time (Protime)PT. 24.6 SECONDS (11.7-14.9)
[2021-11-11] MEDS: Furosemide 20 MG Tablet PO (06:14)
[2021-11-11] MEDS: Losartan Potassium 100 MG Tablet PO (06:14)
[2021-11-11] MEDS: Senna/Docusate Sodium 1 Tablet PO ×2 (06:14→17:29)
[2021-11-11] MEDS: amLODIPine 5 MG Tablet PO (06:14)
[2021-11-11] MEDS: Nystatin Powder 15gm Bottle 1 APPLIC TOPICAL (06:16)
[2021-11-11 06:17] VITALS: BP 144/75; PULSE 63; RESP 16; TEMP 36.3; O2SAT 95
[2021-11-11] MEDS: Venlafaxine HCl 75 MG Tablet 150 MG PO (08:15)
[2021-11-11] MEDS: Potassium Chloride Oral Tablet 20 MEQ PO (08:15)
[2021-11-11] MEDS: Hydroxychloroquine 200 MG Tablet PO ×2 (08:16→17:29)
[2021-11-11 09:25] VITALS: BP 122/60; PULSE 66
[2021-11-11] MEDS: Metoprolol Tartrate 100 MG Tablet PO ×2 (09:25→21:38)
[2021-11-11 09:27] VITALS: BP 122/60; PULSE 66
[2021-11-11 09:40] VITALS: PULSE 63; RESP 18; O2SAT 97
--- NOTE | 2021-11-11 11:38 | CASEMGMT ---
Social Work BIMS and PHQ-9 completed for MDS assessment. Valarie Triplett, ELECTRICAL PROSPECTING OBSERVER TRANSPORTATION DISPATCHER
[2021-11-11 14:00] VITALS: BP 119/58; PULSE 65; RESP 20; TEMP 36.2; O2SAT 95
--- NOTE | 2021-11-11 14:30 | NURSING ---
Addendum entered by Leonel Leyva 11/11/21 14:39: DAUGHTER CALLED BACK AND THIS NURSE UPDATED HER ON A STAFF MEMBER HAD TESTED POSITIVE FOR COVID. PT ALSO WAS INFORMED. Original Note: CALLED DAUGHTER TO UPDATE HER ON PT,NO ANSWER,LEFT MESSAGE TO CALL BACK.
[2021-11-11] MEDS: ALPRAZolam 0.25 MG Tablet PO (21:34)
[2021-11-11] MEDS: Venlafaxine HCl 75 MG Tablet PO (21:35)
[2021-11-11] MEDS: traZODone 100 MG Tablet PO (21:35)
[2021-11-11] MEDS: Atorvastatin Calcium 40 MG Tablet PO (21:36)
[2021-11-11 21:38] VITALS: BP 137/67; PULSE 61
[2021-11-12 06:12] LABS: Absolute Lymphocyte Count 1.86 X10^3/uL (0.83-4.51); Absolute Neutrophil Count 3.7 X10^3/uL (2.0-7.7); Basophil# 0.04 X10^3/uL; Basophil% 0.6 % (0-1); Eosinophil# 0.25 X10^3/uL; Eosinophils% 3.9 % (0-5); Hematocrit 37.4 % (37-47); Hemoglobin 12.5 g/dL (12.0-15.0); Lymphocyte # 1.86 X10^3/ul (0.83-4.51); Mean Corp Hgb Conc 33.4 g/dL (32-36); Mean Corpuscular Hgb 31.3 pg (27.0-32.0); Mean Corpuscular Volume 93.7 fL (81-99); Mean Platelet Vol. 10.1 fl (6.2-12.0); Monocyte% 9.4 % (0-10); NRBC Flagged by Analyzer 0 % (0-5); Neutrophil # 3.65 X10^3/uL (2.7-7.7); Neutrophil % 56.9 % (47-70); Platelet Count 204 K/mm3 (150-450); RBC Distribution Width SD 41.7 fl (35.1-43.9); Red Blood Count 3.99 M/mm3 (4.2-5.4); White Blood Count 6.4 K/mm3 (4.4-11.0)
[2021-11-12] MEDS: Senna/Docusate Sodium 1 Tablet PO (06:30)
[2021-11-12] MEDS: Furosemide 20 MG Tablet PO (06:30)
[2021-11-12] MEDS: amLODIPine 5 MG Tablet PO (06:30)
[2021-11-12] MEDS: Losartan Potassium 100 MG Tablet PO (06:30)
[2021-11-12] MEDS: Nystatin Powder 15gm Bottle 1 APPLIC TOPICAL ×2 (06:34→06:35)
[2021-11-12 06:38] LABS: Anion Gap 3 (5-15); BUN 13 mg/dL (7-18); BUN/Creat Ratio 21.6 RATIO (10-20); Calcium,Total 8.6 mg/dL (8.5-10.1); Chloride 104 mmol/L (98-107); EST Glomerular Filtration Rate 101 mL/min (>60); Est Glom Filt Rate - Afr Amer 122 mL/min (>60); Estimated Creatinine Clearance 30.08 ml/min; Glucose 103 mg/dL (74-106); Potassium 4.1 mmol/L (3.5-5.1); Sodium Level 137 mmol/L (136-145)
[2021-11-12 07:55] VITALS: PULSE 62
[2021-11-12] MEDS: Metoprolol Tartrate 100 MG Tablet PO (07:55)
[2021-11-12] MEDS: Venlafaxine HCl 75 MG Tablet 150 MG PO (07:55)
[2021-11-12] MEDS: Potassium Chloride Oral Tablet 20 MEQ PO (07:55)
[2021-11-12] MEDS: Hydroxychloroquine 200 MG Tablet PO (07:55)
[2021-11-12 10:00] VITALS: PULSE 63
[2021-11-12 13:19] VITALS: BP 131/83; PULSE 63; RESP 16; TEMP 36.9; O2SAT 98
--- NOTE | 2021-11-17 14:49 | MDS.RN ---
Information for the mds was obtained from review of the clinical record, interview of resident, staff, and direct observation of resident's care.
== END 2021-11-12 13:30 | disposition home health service (06) | DRG 640 ==
PROVIDERS: Admitting Provider Family Medicine Geriatric Medicine; PCP Family Medicine; Visit Provider Family Medicine Geriatric Medicine
DX: E87.1 Hypo-osmolality and hyponatremia (principal); I21.4 Non-ST elevation (NSTEMI) myocardial infarction; I50.32 Chronic diastolic (congestive) heart failure; G20 Parkinson's disease; B35.4 Tinea corporis; E78.5 Hyperlipidemia, unspecified; E87.6 Hypokalemia; I48.0 Paroxysmal atrial fibrillation; I11.0 Hypertensive heart disease with heart failure; M06.9 Rheumatoid arthritis, unspecified; I25.10 Atherosclerotic heart disease of native coronary artery without angina pectoris; J98.4 Other disorders of lung; I25.2 Old myocardial infarction; F41.9 Anxiety disorder, unspecified; K59.00 Constipation, unspecified; Z87.891 Personal history of nicotine dependence; F32.A Depression, unspecified; Z79.899 Other long term (current) drug therapy; Z79.01 Long term (current) use of anticoagulants; Z86.718 Personal history of other venous thrombosis and embolism; Z23 Encounter for immunization
CPT/HCPCS: 0004A; 36415; 80048; 85025; 85610; 87426; 91300; 92507; 92523; 97110; 97116; 97162; 97166; 97530; 97535; 97802

== ENCOUNTER → 2021-11-18 | Outpatient (REF) | payer MEDICARE, SELFPAY ==
[2021-11-18 08:34] LABS: Hematocrit 38.1 % (37-47); Hemoglobin 12.8 g/dL (12.0-15.0); Mean Corp Hgb Conc 33.6 g/dL (32-36); Mean Corpuscular Hgb 31.1 pg (27.0-32.0); Mean Corpuscular Volume 92.5 fL (81-99); Mean Platelet Vol. 10.5 fl (6.2-12.0); Platelet Count 220 K/mm3 (150-450); RBC Distribution Width CV 12.3 % (11.6-14.6); RBC Distribution Width SD 41.6 fl (35.1-43.9); Red Blood Count 4.12 M/mm3 (4.2-5.4); White Blood Count 6.8 K/mm3 (4.4-11.0)
[2021-11-18 08:54] LABS: Anion Gap 5 (5-15); BUN 16 mg/dL (7-18); BUN/Creat Ratio 21.1 RATIO (10-20); Calcium,Total 8.8 mg/dL (8.5-10.1); Chloride 97 mmol/L (98-107); Creatinine, Serum 0.76 mg/dL (0.55-1.02); EST Glomerular Filtration Rate 77 mL/min (>60); Est Glom Filt Rate - Afr Amer 94 mL/min (>60); Glucose 99 mg/dL (74-106); Potassium 4.2 mmol/L (3.5-5.1); Sodium Level 132 mmol/L (136-145)
== END | disposition home or self-care (01) ==
PROVIDERS: PCP Family Medicine; Visit Provider Family Medicine
DX: E87.1 Hypo-osmolality and hyponatremia (principal); E87.6 Hypokalemia; G93.41 Metabolic encephalopathy
CPT/HCPCS: 36415; 80048; 85027

== ENCOUNTER → 2021-11-23 12:00 | Outpatient (REF) | payer MEDICARE, SELFPAY ==
[2021-11-23 12:50] LABS: Anion Gap 5 (5-15); BUN 11 mg/dL (7-18); BUN/Creat Ratio 15.5 RATIO (10-20); Calcium,Total 9.3 mg/dL (8.5-10.1); Chloride 98 mmol/L (98-107); Creatinine, Serum 0.71 mg/dL (0.55-1.02); EST Glomerular Filtration Rate 84 mL/min (>60); Est Glom Filt Rate - Afr Amer 101 mL/min (>60); Glucose 112 mg/dL (74-106); Potassium 4.9 mmol/L (3.5-5.1); Sodium Level 133 mmol/L (136-145)
== END ==
PROVIDERS: PCP Family Medicine; Visit Provider Family Medicine
DX: E86.0 Dehydration (principal)
CPT/HCPCS: 36415; 80048

== ENCOUNTER → 2021-11-25 04:00 | Outpatient (REF) | payer MEDICARE, SELFPAY ==
[2021-11-25 08:25] LABS: Mean Corp Hgb Conc 34.2 g/dL (32-36); Mean Corpuscular Hgb 31.3 pg (27.0-32.0); Mean Corpuscular Volume 91.6 fL (81-99); Mean Platelet Vol. 10.3 fl (6.2-12.0); Platelet Count 209 K/mm3 (150-450); RBC Distribution Width CV 12.4 % (11.6-14.6); RBC Distribution Width SD 41.4 fl (35.1-43.9); Red Blood Count 4.15 M/mm3 (4.2-5.4); White Blood Count 6.5 K/mm3 (4.4-11.0)
[2021-11-25 08:49] LABS: Anion Gap 4 (5-15); BUN 11 mg/dL (7-18); BUN/Creat Ratio 15.3 RATIO (10-20); Calcium,Total 8.8 mg/dL (8.5-10.1); Chloride 102 mmol/L (98-107); Creatinine, Serum 0.72 mg/dL (0.55-1.02); EST Glomerular Filtration Rate 82 mL/min (>60); Est Glom Filt Rate - Afr Amer 99 mL/min (>60); Glucose 110 mg/dL (74-106); Potassium 4.7 mmol/L (3.5-5.1); Sodium Level 136 mmol/L (136-145)
== END ==
PROVIDERS: PCP Family Medicine; Visit Provider Family Medicine
DX: E87.1 Hypo-osmolality and hyponatremia (principal); E87.6 Hypokalemia; G93.41 Metabolic encephalopathy
CPT/HCPCS: 36415; 80048; 85027

== ENCOUNTER → 2021-12-02 04:00 | Outpatient (REF) | payer MEDICARE, SELFPAY ==
[2021-12-02 08:48] LABS: Hematocrit 42.4 % (37-47); Hemoglobin 14.4 g/dL (12.0-15.0); Mean Corpuscular Hgb 31.4 pg (27.0-32.0); Mean Corpuscular Volume 92.4 fL (81-99); Mean Platelet Vol. 10.6 fl (6.2-12.0); Platelet Count 248 K/mm3 (150-450); RBC Distribution Width CV 12.2 % (11.6-14.6); RBC Distribution Width SD 41.6 fl (35.1-43.9); Red Blood Count 4.59 M/mm3 (4.2-5.4); White Blood Count 7.2 K/mm3 (4.4-11.0)
[2021-12-02 09:02] LABS: Anion Gap 4 (5-15); BUN 13 mg/dL (7-18); BUN/Creat Ratio 17.2 RATIO (10-20); Calcium,Total 8.9 mg/dL (8.5-10.1); Chloride 96 mmol/L (98-107); Creatinine, Serum 0.75 mg/dL (0.55-1.02); EST Glomerular Filtration Rate 78 mL/min (>60); Est Glom Filt Rate - Afr Amer 94 mL/min (>60); Glucose 126 mg/dL (74-106); Potassium 3.5 mmol/L (3.5-5.1); Sodium Level 133 mmol/L (136-145)
[2021-12-02 09:11] LABS: International Normalized Ratio 1.7; Prothrombin Time (Protime)PT. 19.9 SECONDS (11.7-14.9)
== END ==
PROVIDERS: PCP Family Medicine; Visit Provider Family Medicine
DX: I10 Essential (primary) hypertension (principal); Z79.899 Other long term (current) drug therapy; Z79.01 Long term (current) use of anticoagulants
CPT/HCPCS: 36415; 80048; 85027; 85610

== ENCOUNTER → 2021-12-10 04:34 | Outpatient (REF) | payer MEDICARE, SELFPAY ==
[2021-12-10 07:52] LABS: Hemoglobin 12.4 g/dL (12.0-15.0); Mean Corp Hgb Conc 34.4 g/dL (32-36); Mean Corpuscular Hgb 31.7 pg (27.0-32.0); Mean Corpuscular Volume 92.1 fL (81-99); Mean Platelet Vol. 10.3 fl (6.2-12.0); Platelet Count 206 K/mm3 (150-450); RBC Distribution Width CV 12.3 % (11.6-14.6); RBC Distribution Width SD 41.1 fl (35.1-43.9); Red Blood Count 3.91 M/mm3 (4.2-5.4); White Blood Count 5.9 K/mm3 (4.4-11.0)
[2021-12-10 08:06] LABS: Anion Gap 5 (5-15); BUN 12 mg/dL (7-18); BUN/Creat Ratio 18.8 RATIO (10-20); Calcium,Total 8.7 mg/dL (8.5-10.1); Chloride 98 mmol/L (98-107); Creatinine, Serum 0.64 mg/dL (0.55-1.02); EST Glomerular Filtration Rate 94 mL/min (>60); Est Glom Filt Rate - Afr Amer 114 mL/min (>60); Glucose 111 mg/dL (74-106); Potassium 3.7 mmol/L (3.5-5.1); Sodium Level 135 mmol/L (136-145)
[2021-12-13 05:22] LABS: Cholesterol 114 mg/dL (200); High Density Lipoprotein 48 mg/dL; Triglycerides 61 mg/dL; Very Low Density Lipoprotein 12 mg/dL (5-40)
== END ==
PROVIDERS: PCP Family Medicine; Visit Provider Family Medicine
DX: I48.91 Unspecified atrial fibrillation (principal); E87.6 Hypokalemia; E87.1 Hypo-osmolality and hyponatremia; G93.41 Metabolic encephalopathy
CPT/HCPCS: 80048; 80061; 85027

== ENCOUNTER → 2021-12-13 05:00 | Outpatient (REF) | payer MEDICARE, SELFPAY ==
[2021-12-13 08:20] LABS: INR Fingerstick 1.4; Prothrombin Time Fingerstick 17.2 SEC (11.7-14.9)
== END ==
PROVIDERS: PCP Family Medicine; Visit Provider Family Medicine
DX: E78.5 Hyperlipidemia, unspecified (principal); Z79.01 Long term (current) use of anticoagulants
CPT/HCPCS: 36416; 85610

== ENCOUNTER → 2021-12-20 05:00 | Outpatient (REF) | payer MEDICARE, SELFPAY ==
[2021-12-20 08:10] LABS: INR Fingerstick 2.1; Prothrombin Time Fingerstick 25.2 SEC (11.7-14.9)
== END ==
PROVIDERS: PCP Family Medicine; Visit Provider Family Medicine
DX: Z79.01 Long term (current) use of anticoagulants (principal)
CPT/HCPCS: 36416; 85610

== ENCOUNTER → 2022-01-06 | Outpatient (REF) | payer MEDICARE, SELFPAY ==
[2022-01-06 07:26] LABS: INR Fingerstick 2.2; Prothrombin Time Fingerstick 25.9 SEC (11.7-14.9)
== END ==
PROVIDERS: PCP Family Medicine; Visit Provider Family Medicine
DX: Z79.01 Long term (current) use of anticoagulants (principal)
CPT/HCPCS: 36416; 85610

== ENCOUNTER → 2022-02-03 | Outpatient (REF) | payer MEDICARE, SELFPAY ==
[2022-02-03 07:05] LABS: INR Fingerstick 2.1; Prothrombin Time Fingerstick 24.8 SEC (11.7-14.9)
== END ==
PROVIDERS: PCP Family Medicine; Visit Provider Family Medicine
DX: Z79.01 Long term (current) use of anticoagulants (principal)
CPT/HCPCS: 36416; 85610

== ENCOUNTER 2022-03-07 14:46 | Emergency (ER) | payer MEDICARE, SELFPAY ==
[2022-03-07 14:47] VITALS: BP 120/54; PULSE 98; RESP 14; TEMP 37.2; O2SAT 96; BMI 31.4
[2022-03-07 15:01] VITALS: BP 158/90; PULSE 86; RESP 17; TEMP 37.2; O2SAT 92
--- NOTE | 2022-03-07 15:19 | CT_ITS ---
STUDY: CT BRAIN WITHOUT CONTRAST REASON FOR EXAM: Female, 86 years old. confusion Individualized dose optimization techniques were used for this CT. TECHNIQUE: Transaxial CT imaging of the brain was performed without administration of intravenous contrast material. COMPARISON: 11/02/2021 FINDINGS: There are calcifications around the carotid artery. These are noted in the cavernous carotid arteries. Normal calvarium. Normal soft tissues. There is mild cerebral atrophy with widening of the extra-axial spaces and ventricular dilatation. There are areas of decreased attenuation within the white matter tracts of the supratentorial brain, consistent with microvascular disease changes. Normal basal ganglia and thalami. Normal brainstem. There is mild cerebellar atrophy. There is no intracranial hemorrhage. There are no findings of an acute ischemic infarction. Normal visualized paranasal sinuses. ASPECTS Score for Acute Strokes: 03/07 CT/Brain/Head without Contrast IMPRESSION: There are no acute findings. Chronic involutional changes of the brain. Electronically Signed: Dev Kapoor MD at 17:19 EDT ,
--- NOTE | 2022-03-07 15:19 | EKG12_ITS ---
Test Reason : DYSRHYTHMIA Blood Pressure : / mmHG Vent. Rate : 078 BPM Atrial Rate : 078 BPM P-R Int : 170 ms QRS Dur : 144 ms QT Int : 434 ms P-R-T Axes : 031 006 -06 degrees QTc Int : 494 ms Sinus rhythm with frequent Premature ventricular complexes and Fusion complexes Right bundle branch block Abnormal ECG Confirmed by CALLI HOLLAND, LUCILA ([id number]), slot editor DELISA MAYA ([id number]) on 03/08/2022 9:24:15 AM Referred By: XAVIER Confirmed By:LUCILA MCCURDY MD
--- NOTE | 2022-03-07 15:20 | EDS_ITS ---
HPI History of Present Illness Chief Complaint: Shortness of Breath Informant: patient Onset/Context/Timing Onset: Days Narrative Narrative: Patient presents from [facility] that she has not felt well for about a week or so. Outpatient labs were done today and she was noted to have a white count of 13.6. Nursing notes document that the patient was found in her closet this morning talking to cats. Patient does have a history of paroxysmal A. fib and is on Coumadin. She denies any recent falls. She denies headache. She reports moist cough with occasional sputum production. She had nausea with 1 episode of vomiting today. No abdominal pain. She does report slight pressure when she urinates. [facility] Medical History Atherosclerotic heart disease of [place] coronary artery without angina pectoris Atrial fibrillation with RVR (10/01/16) Bilateral breast cancer Depression Essential hypertension Frequent falls History of non-ST elevation myocardial infarction (NSTEMI) (10/01/16) History of pulmonary embolus (PE) Hypercoagulable state skilled nursing current use of anticoagulant Memory loss Nonrheumatic aortic (valve) stenosis Parkinsonian syndrome Paroxysmal atrial fibrillation Poor balance Postoperative atrial fibrillation (04/04/13) Recurrent deep vein thrombosis (DVT) Restrictive airway disease Rheumatoid arthritis Home Medications atorvastatin 40 mg tablet 40 mg PO QHS cholesterol 10/01/16 [History Last Taken 11/01/21] venlafaxine 75 mg tablet 75 mg PO QHS BP 02/14/19 [History Last Taken 11/01/21] albuterol sulfate 90 mcg/actuation aerosol inhaler (Ventolin HFA) 2 puff inhalation Q6H PRN Wheezing 09/23/21 [History Last Taken Unknown] losartan 100 mg tablet 100 mg PO DAILY BP 09/23/21 [History Last Taken Unknown] trazodone 100 mg tablet 100 mg PO QHS Sleep 09/23/21 [History Last Taken 11/01/21] hydroxychloroquine 200 mg tablet 200 mg PO BID RA 11/02/21 [History Last Taken 11/01/21] metoprolol tartrate 50 mg tablet 100 mg PO BID HEART 11/02/21 [History Last Taken 11/01/21] venlafaxine 150 mg capsule,extended release 24 hr 150 mg PO BREAKFAST BP 11/02/21 [History Last Taken 11/01/21] alprazolam 0.25 mg tablet 0.25 mg PO QHS PRN PRN Anxiety/Restlessness/Sleep #0 tabs 11/10/21 [Rx Last Taken Unknown] amlodipine 5 mg tablet 5 mg PO DAILY BP 30 days #30 tabs 11/10/21 [Rx Last Taken Unknown] furosemide 20 mg tablet 20 mg PO DAILY Fluid retention 30 days #30 tabs 11/10/21 [Rx Last Taken Unknown] potassium chloride 20 mEq tablet,extended release(part/cryst) (Klor-Con M) 20 meq PO DAILYCM 30 days #30 tabs 11/10/21 [Rx Last Taken Unknown] hydrochlorothiazide 25 mg tablet 25 mg PO DAILY 03/07/22 [History Last Taken Unknown] warfarin 3 mg tablet 3 mg PO DINNER 03/07/22 [History Last Taken Unknown] warfarin 4 mg tablet 4 mg PO DINNER 03/07/22 [History Last Taken Unknown] Allergy/AdvReac Type Severity Reaction Status Date / Time Penicillins Allergy Anaphylaxis Verified 03/07/22 14:47 acetaminophen [From Vicodin] AdvReac Itching Verified 03/07/22 14:47 codeine AdvReac Nausea Verified 03/07/22 14:47 ezetimibe [From Zetia] AdvReac Itching Verified 03/07/22 14:47 hydrocodone bitartrate AdvReac Itching Verified 03/07/22 14:47 [From Vicodin] Hsdhqgp-PDE-VzX Reductase AdvReac Other Verified 03/07/22 14:47 Inhibitor [Lzapmkj-Nti-Mnl Reductase Inhibitor] Surgical History 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) History of appendectomy History of cardioversion (10/01/16) History of coronary artery stent placement (12/2003) History of left heart catheterization (10/13/15) Social History household members: none Smoking Status: Former smoker how long ago did patient quit smokin, 1ppd second hand exposure: Yes alcohol intake: never substance use type: does not use ROS ROS ED Constitutional Constitutional ED: Denies chills or fever(s) Eyes Eyes: Denies change in vision or discharge from eye(s) ENT ENT ED: Denies discharge from eye(s), rhinorrhea or sore throat Cardiovascular Cardiovascular: Denies chest pain or palpitations Respiratory/Chest Respiratory/Chest: Reports cough; Denies dyspnea Gastrointestinal Gastrointestinal: Reports nausea and vomiting; Denies abdominal pain or diarrhea Genitourinary Genitourinary ED: Reports dysuria; Denies difficulty urinating Musculoskeletal Musculoskeletal: Denies back pain or extremity pain Integumentary Denies Abrasions or rash Neurologic Neurologic: Denies headache(s) or weakness Psychiatric Psychiatric: Denies anxiety or depression Allergic/Immunologic Allergic/Immunologic ED: Denies lip swelling or urticaria EXAM Physical Exam Const Vital Signs: 03/07/22 14:47 03/07/22 15:01 03/07/22 15:05 Temperature 98.9 F 98.9 F Temperature Source Temporal Temporal Pulse Rate 98 86 Respiratory Rate 14 17 Respiratory Effort Normal Non-Labored Respiratory Depth Normal Respiratory Pattern Normal Blood Pressure 120/54 L 158/90 H Blood Pressure Mean 76 112 Pulse Ox 96 92 Oxygen Delivery Method Nasal Cannula Room Air Oxygen Flow Rate (L/min) 2 03/07/22 15:40 03/07/22 17:00 03/07/22 18:00 Temperature 98.7 F 97.8 F 97.8 F Temperature Source Temporal Temporal Temporal Pulse Rate 79 82 83 Respiratory Rate 18 19 H 18 Respiratory Effort Respiratory Depth Respiratory Pattern Blood Pressure 126/67 H 135/78 H 126/89 H Blood Pressure Mean 86 97 101 Pulse Ox 91 93 94 Oxygen Delivery Method Room Air Room Air Room Air Oxygen Flow Rate (L/min) Positive well nourished and well developed General Appearance ED: well developed HEENT Reports normocephalic and head/scalp atraumatic Eyes PERRL and EOMs intact bilaterally Neck supple Chest Wall inspection of chest normal and palpation of chest normal Resp normal respiratory effort and clear to auscultation bilaterally Cardio Rhythm: abnormal rhythm irregularly irregular GI normal to inspection, nondistended, normoactive bowel sounds Palpation: soft Back/Spine no CVA tenderness Extremity normal to inspection Neuro oriented x3 and no sensory deficits noted Neuro Narrative: Slight right-sided chronic weakness from prior stroke Sensorium / Orientation: alert Psych mental status grossly normal Skin no rashes or lesions noted MDM MDM MDM Narrative Medical decision making narrative: Patient placed on cardiac cath technician. EKG and chest x-ray obtained. Lab work and urinalysis ordered. Swab for COVID and influenza obtained along with cultures her blood and urine. Because patient did have a fall and is on Coumadin she was sent for head CT as well. Lab Data Attestation: I reviewed the patient's lab results. Labs: Laboratory Results - last 24 hr 03/07/22 03/07/22 03/07/22 15:30 15:30 15:30 WBC 14.3 H RBC 4.30 Hgb 13.5 Hct 39.2 MCV 91.2 MCH 31.4 MCHC 34.4 RDW Std Deviation 40.9 RDW Coeff of Lindy 12.3 Plt Count 229 MPV 10.2 Immature Gran % (Auto) 0.400 Neut % (Auto) 73.9 H Lymph % (Auto) 14.7 L [place] % (Auto) 9.8 Eos % (Auto) 1.0 Baso % (Auto) 0.2 Absolute Neuts (auto) 10.6 H Absolute Lymphs (auto) 2.09 Nucleated RBC % 0 PT Cancelled INR Cancelled Sodium 134 L Potassium 3.6 Chloride 97 L Carbon Dioxide 30.0 Anion Gap 7 BUN 13 Creatinine 0.73 Estim Creat Clear Calc 31.60 Est GFR (MDRD) Af Amer 97 Est GFR (MDRD) Non-Af 80 BUN/Creatinine Ratio 17.7 Glucose 122 H Calcium 9.0 Total Bilirubin 0.60 Direct Bilirubin 0.17 AST 15 ALT 17 Alkaline Phosphatase 64 Troponin I High Sens 9 Total Protein 7.4 Albumin 3.3 Globulin 4.1 Urine Color Urine Clarity Urine pH Ur Specific [place] Urine Protein Urine Glucose (UA) Urine Ketones Urine Occult Blood Urine Nitrite Urine Bilirubin Urine Urobilinogen Ur Leukocyte Esterase Urine RBC Urine WBC Ur Squamous Epith Cells Urine Bacteria Urine Mucus 03/07/22 03/07/22 16:30 16:32 WBC RBC Hgb Hct MCV MCH MCHC RDW Std Deviation RDW Coeff of Lindy Plt Count MPV Immature Gran % (Auto) Neut % (Auto) Lymph % (Auto) [place] % (Auto) Eos % (Auto) Baso % (Auto) Absolute Neuts (auto) Absolute Lymphs (auto) Nucleated RBC % PT 50.6 H INR 5.6 H* Sodium Potassium Chloride Carbon Dioxide Anion Gap BUN Creatinine Estim Creat Clear Calc Est GFR (MDRD) Af Amer Est GFR (MDRD) Non-Af BUN/Creatinine Ratio Glucose Calcium Total Bilirubin Direct Bilirubin AST ALT Alkaline Phosphatase Troponin I High Sens Total Protein Albumin Globulin Urine Color Yellow Urine Clarity Clear Urine pH 6.5 Ur Specific [place] 1.010 Urine Protein Negative Urine Glucose (UA) Normal Urine Ketones Negative Urine Occult Blood 25 H Urine Nitrite Negative Urine Bilirubin Negative Urine Urobilinogen 1 H Ur Leukocyte Esterase Negative Urine RBC 5-10 SEEN Urine WBC 0 SEEN Ur Squamous Epith Cells 0-5 SEEN Urine Bacteria RARE Urine Mucus 0 SEEN Radiography Chest X-Ray - ED: 1 View, Read by ED Physician, Chronic Changes and No Infiltrates Diagnostic Testing: Clinical Impression(s) from Imaging Studies Brain CT 03/07/22 15:19 IMPRESSION: There are no acute findings. Chronic involutional changes of the brain. Electronically Signed: Dev Kapoor MD at 17:19 EDT , Chest X-Ray 03/07/22 17:00 IMPRESSION: There are no acute findings. Electronically Signed: Dve Kapoor MD at 17:20 EDT , EKG Initial EKG: Attestation: I personally reviewed and interpreted this EKG as follows: Interpretation: Sinus Rhythm (Sinus at 78 with PVCs. No acute ischemia.) Treatment and Re-Evaluation Narrative: Patient had been given a liter IV fluid. On repeat evaluation she reports feeling much improved. Her O2 sat on room air is 93%. Chest x-ray per my interpretation reveals no infiltrate. Radiology interpretation is reviewed. Lab work does reveal mild elevated white count at 14.3. Chemistry studies significant for a sodium of 134. LFTs normal. Urinalysis reveals no acute infection. INR is 5.6. Head CT reveals no acute findings. I spoke with Dr. Unger, her primary care physician at [facility]. Dr. Unger states that she already advised staff to hold the Coumadin and start Zithromax. This will cover respiratory as well as sinus source of her illness. Patient will be discharged back to [facility]. Discharge Plan Triage Chief Complaint: Shortness of Breath ED Provider: Joyce Rios Dx/Rx/DC Orders Clinical Impression: URI (upper respiratory infection), Confusion, Supratherapeutic INR Instructions: ED URI, Viral, No Abx (Adult) Prescriptions: No Action trazodone 100 mg tablet 100 mg PO QHS Label Comments: TAKE 1 TABLET BY MOUTH AT BEDTIME albuterol sulfate [Ventolin HFA] 90 mcg/actuation HFA aerosol inhaler 2 puff inhalation Q6H PRN (Reason: Wheezing) losartan 100 mg tablet 100 mg PO DAILY Label Comments: DAUGHTER IS UNSURE IF PT IS STILL TAKING. SHE WILL VERIFY AND CALL WITH UPDATE. atorvastatin 40 MG tablet 40 mg PO QHS Label Comments: CHOLESTEROL venlafaxine 75 MG tablet 75 mg PO QHS venlafaxine 150 mg Capsule,Extended Release 24hr 150 mg PO BREAKFAST metoprolol tartrate 50 mg tablet 100 mg PO BID Label Comments: TAKE 2 TABLETS BY MOUTH TWICE DAILY hydroxychloroquine 200 mg tablet 200 mg PO BID Label Comments: TAKE 1 TABLET BY MOUTH TWICE DAILY alprazolam 0.25 mg Tablet 0.25 mg PO QHS PRN PRN (Reason: Anxiety/Restlessness/Sleep) Qty: 0 0RF potassium chloride [Klor-Con M20] 20 mEq Tablet,Er Particles/Crystals 20 meq PO DAILYCM 30 Days Qty: 30 0RF amlodipine 5 mg tablet 5 mg PO DAILY 30 Days Qty: 30 0RF furosemide 20 mg tablet 20 mg PO DAILY 30 Days Qty: 30 0RF warfarin 4 mg tablet 4 mg PO DINNER Rx Instructions: take with 3mg tablet for total dose of 7mg warfarin 3 mg tablet 3 mg PO DINNER Rx Instructions: for a total of 7mg give with 4mg tablet hydrochlorothiazide 25 mg tablet 25 mg PO DAILY Primary Care Provider: Joao Simon Referrals: Hortensia Unger MD [Med Staff - Equipment Cleaner] - 1 Week Joao Simon MD [Primary Care Provider] - Disposition Disposition: Custodial Facility Discharge Location: [facility]
[2022-03-07 15:40] VITALS: BP 126/67; PULSE 79; RESP 18; TEMP 37.1; O2SAT 91
[2022-03-07] MEDS: 0.9% Normal Saline 1,000 ML 150 ML IV (15:41)
[2022-03-07 16:00] LABS: Absolute Lymphocyte Count 2.09 X10^3/uL (0.83-4.51); Absolute Neutrophil Count 10.6 X10^3/uL (2.0-7.7); Basophil# 0.03 X10^3/uL; Basophil% 0.2 % (0-1); Eosinophil# 0.14 X10^3/uL; Hematocrit 39.2 % (37-47); Hemoglobin 13.5 g/dL (12.0-15.0); Lymphocyte # 2.09 X10^3/ul (0.83-4.51); Lymphocyte % 14.7 % (19-41); Mean Corp Hgb Conc 34.4 g/dL (32-36); Mean Corpuscular Hgb 31.4 pg (27.0-32.0); Mean Corpuscular Volume 91.2 fL (81-99); Mean Platelet Vol. 10.2 fl (6.2-12.0); Monocyte# 1.39 X10^3/uL; Monocyte% 9.8 % (0-10); NRBC Flagged by Analyzer 0 % (0-5); Neutrophil # 10.55 X10^3/uL (2.7-7.7); Neutrophil % 73.9 % (47-70); Platelet Count 229 K/mm3 (150-450); RBC Distribution Width CV 12.3 % (11.6-14.6); RBC Distribution Width SD 40.9 fl (35.1-43.9); White Blood Count 14.3 K/mm3 (4.4-11.0)
[2022-03-07 16:13] LABS: AST(SGOT) 15 U/L (15-37); Alanine Aminotransfer ALT/SGPT 17 U/L (13-56); Albumin, Serum 3.3 g/dL (3.2-5.0); Alkaline Phosphatase 64 U/L (45-117); Anion Gap 7 (5-15); BUN 13 mg/dL (7-18); BUN/Creat Ratio 17.7 RATIO (10-20); Bilirubin, Direct 0.17 mg/dL (0.00-0.30); Chloride 97 mmol/L (98-107); Creatinine, Serum 0.73 mg/dL (0.55-1.02); EST Glomerular Filtration Rate 80 mL/min (>60); Est Glom Filt Rate - Afr Amer 97 mL/min (>60); Globulin 4.1 g/dL (2.2-4.2); Glucose 122 mg/dL (74-106); Potassium 3.6 mmol/L (3.5-5.1); Protein, Total 7.4 g/dL (6.4-8.2); Sodium Level 134 mmol/L (136-145); Troponin-I HS 9 pg/mL (3.0-54.0)
--- NOTE | 2022-03-07 16:19 | NURSING ---
BLUE TOP HEMOLIZED
[2022-03-07 16:36] LABS: Mucous, Urine 0 SEEN /hpf (<or=2+); White Blood Cells 0 SEEN /hpf (0-5)
[2022-03-07 16:45] LABS: Prothrombin Time (Protime)PT. 50.6 SECONDS (11.7-14.9)
[2022-03-07 16:48] LABS: International Normalized Ratio 5.6
[2022-03-07 16:51] LABS: Color, Urine Yellow (Yellow); Glucose, Dipstick Normal (Normal); Ketone-Dipstick Negative (Negative); Leukocyte Esterase-Dipstick Negative /ul (Negative); Nitrite-Dipstick Negative (Negative); Occult Blood-Urine 25 /ul (Negative); Protein-Dipstick Negative (Negative); Urine Bilirubin Dipstick Negative (Negative); Urine Clarity Clear (Clear); Urine Urobilinogen 1 mg/dl (Normal); Urine pH 6.5 (5.0 - 8.0)
[2022-03-07 16:56] LABS: Bacteria RARE /hpf (None Seen); Red Blood Cells-Urine 5-10 SEEN /hpf (0-5); Squamous Epithelial Cells - UA 0-5 SEEN /hpf (5-10)
[2022-03-07 17:00] VITALS: BP 135/78; PULSE 82; RESP 19; TEMP 36.6; O2SAT 93
--- NOTE | 2022-03-07 17:00 | RAD_ITS ---
STUDY: X-RAY CHEST REASON FOR EXAM: Female, 86 years old. cough TECHNIQUE: XR Chest 1 View COMPARISON: 6.7.22 FINDINGS: There is atherosclerotic calcification of the aortic arch with tortuosity. There are diffuse degenerative changes of the visualized thoracic spine. There is degenerative osteoarthritis of the bilateral shoulders. There is no demonstrated pleural abnormality. There are multiple median sternotomy wires. Normal size heart. Normal mediastinum and sue. Normal visualized pulmonary arteries. There is no demonstrated abnormality of the visualized soft tissue structures of the upper abdomen. RAD/Chest 1 View (Portable) IMPRESSION: There are no acute findings. Electronically Signed: Dev Kapoor MD at 17:20 EDT ,
[2022-03-07 18:00] VITALS: BP 126/89; PULSE 83; RESP 18; TEMP 36.6; O2SAT 94
--- NOTE | 2022-03-07 18:54 | ED.RN ---
Report called to [facility], aware that pt's daughter will transport her back.
== END 2022-03-07 19:19 | disposition skilled nursing facility (03) ==
PROVIDERS: Emergency Provider Emergency Medicine; PCP Family Medicine; Visit Provider Emergency Medicine
DX: J06.9 Acute upper respiratory infection, unspecified (principal); I48.0 Paroxysmal atrial fibrillation; I48.92 Unspecified atrial flutter; I10 Essential (primary) hypertension; Z87.891 Personal history of nicotine dependence; I25.10 Atherosclerotic heart disease of native coronary artery without angina pectoris; R06.02 Shortness of breath; R41.0 Disorientation, unspecified; Z79.01 Long term (current) use of anticoagulants; R30.0 Dysuria; R11.2 Nausea with vomiting, unspecified; E78.5 Hyperlipidemia, unspecified; E87.1 Hypo-osmolality and hyponatremia
CPT/HCPCS: 36415; 70450; 71045; 80048; 80053; 80061; 80076; 81001; 84484; 85025; 85027; 85610; 87040; 87086; 87428; 93005; 96360; 96361; 99285; J7030; A4216

== ENCOUNTER → 2022-03-07 | Outpatient (REF) | payer MEDICARE, SELFPAY ==
[2022-03-07 09:13] LABS: Hematocrit 40.8 % (37-47); Hemoglobin 13.9 g/dL (12.0-15.0); Mean Corp Hgb Conc 34.1 g/dL (32-36); Mean Corpuscular Hgb 31.8 pg (27.0-32.0); Mean Corpuscular Volume 93.4 fL (81-99); Mean Platelet Vol. 10.6 fl (6.2-12.0); Platelet Count 223 K/mm3 (150-450); RBC Distribution Width CV 12.2 % (11.6-14.6); RBC Distribution Width SD 42.1 fl (35.1-43.9); Red Blood Count 4.37 M/mm3 (4.2-5.4); White Blood Count 13.6 K/mm3 (4.4-11.0)
[2022-03-07 09:27] LABS: Prothrombin Time (Protime)PT. 45.7 SECONDS (11.7-14.9)
[2022-03-07 09:44] LABS: ALB/GLOB Ratio 0.7 RATIO (0.9-2.4); AST(SGOT) 20 U/L (15-37); Alanine Aminotransfer ALT/SGPT 22 U/L (13-56); Albumin, Serum 3.2 g/dL (3.2-5.0); Alkaline Phosphatase 74 U/L (45-117); Anion Gap 10 (5-15); BUN 12 mg/dL (7-18); BUN/Creat Ratio 16.1 RATIO (10-20); Calcium,Total 8.9 mg/dL (8.5-10.1); Chloride 95 mmol/L (98-107); Cholesterol 119 mg/dL (200); Creatinine, Serum 0.75 mg/dL (0.55-1.02); EST Glomerular Filtration Rate 79 mL/min (>60); Est Glom Filt Rate - Afr Amer 95 mL/min (>60); Globulin 4.3 g/dL (2.2-4.2); Glucose 147 mg/dL (74-106); High Density Lipoprotein 57 mg/dL; Potassium 3.6 mmol/L (3.5-5.1); Protein, Total 7.5 g/dL (6.4-8.2); Sodium Level 133 mmol/L (136-145); Triglycerides 81 mg/dL; Very Low Density Lipoprotein 16 mg/dL (5-40)
[2022-03-07 10:10] LABS: International Normalized Ratio 4.9
== END ==
PROVIDERS: PCP Family Medicine; Referring Provider Family Medicine; Visit Provider Family Medicine
DX: I48.92 Unspecified atrial flutter (principal); E87.1 Hypo-osmolality and hyponatremia; I10 Essential (primary) hypertension; E78.5 Hyperlipidemia, unspecified
CPT/HCPCS: 36415; 80053; 80061; 85027; 85610

== ENCOUNTER → 2022-03-15 | Outpatient (REF) | payer MEDICARE, SELFPAY ==
[2022-03-15 15:32] LABS: Color, Urine Yellow (Yellow); Glucose, Dipstick Normal (Normal); Ketone-Dipstick Negative (Negative); Leukocyte Esterase-Dipstick Negative /ul (Negative); Nitrite-Dipstick Negative (Negative); Occult Blood-Urine Negative /ul (Negative); Protein-Dipstick Negative (Negative); Urine Bilirubin Dipstick Negative (Negative); Urine Clarity Clear (Clear); Urine Urobilinogen Normal (Normal)
== END ==
PROVIDERS: PCP Family Medicine; Visit Provider Family Medicine
DX: E87.6 Hypokalemia (principal); I10 Essential (primary) hypertension; R30.0 Dysuria; E78.5 Hyperlipidemia, unspecified
CPT/HCPCS: 81002; 87077; 87086; 87088; 87186

== ENCOUNTER → 2022-03-16 | Outpatient (REF) | payer MEDICARE, SELFPAY ==
[2022-03-16 07:55] LABS: INR Fingerstick 2.2
== END ==
PROVIDERS: PCP Family Medicine; Visit Provider Family Medicine
DX: Z79.01 Long term (current) use of anticoagulants (principal)
CPT/HCPCS: 36416; 85610

== ENCOUNTER → 2022-03-26 | Outpatient (REF) | payer MEDICARE, SELFPAY ==
[2022-03-26 15:08] LABS: Bacteria 0 SEEN /hpf (None Seen); Mucous, Urine 0 SEEN /hpf (<or=2+); Red Blood Cells-Urine 0 SEEN /hpf (0-5); Squamous Epithelial Cells - UA 0 SEEN /hpf (5-10); White Blood Cells 0 SEEN /hpf (0-5)
[2022-03-26 15:13] LABS: Color, Urine Yellow (Yellow); Glucose, Dipstick Normal (Normal); Ketone-Dipstick Negative (Negative); Leukocyte Esterase-Dipstick Negative /ul (Negative); Nitrite-Dipstick Negative (Negative); Occult Blood-Urine 10 /ul (Negative); Protein-Dipstick Negative (Negative); Specific Gravity, Urine 1.015 (1.002-1.030); Urine Bilirubin Dipstick Negative (Negative); Urine Clarity Clear (Clear); Urine Urobilinogen Normal (Normal); Urine pH 6.5 (5.0 - 8.0)
== END ==
PROVIDERS: PCP Family Medicine; Visit Provider Family Medicine
DX: R30.0 Dysuria (principal)
CPT/HCPCS: 81001; 87086

== ENCOUNTER → 2022-04-07 | Outpatient (REF) | payer MEDICARE, SELFPAY ==
[2022-04-07 09:17] LABS: Hematocrit 38.1 % (37-47); Mean Corp Hgb Conc 34.1 g/dL (32-36); Mean Corpuscular Hgb 31.4 pg (27.0-32.0); Platelet Count 219 K/mm3 (150-450); RBC Distribution Width CV 12.6 % (11.6-14.6); RBC Distribution Width SD 42.2 fl (35.1-43.9); Red Blood Count 4.14 M/mm3 (4.2-5.4); White Blood Count 5.5 K/mm3 (4.4-11.0)
[2022-04-07 09:41] LABS: ALB/GLOB Ratio 0.9 RATIO (0.9-2.4); AST(SGOT) 17 U/L (15-37); Alanine Aminotransfer ALT/SGPT 18 U/L (13-56); Alkaline Phosphatase 58 U/L (45-117); Anion Gap 8 (5-15); BUN 9 mg/dL (7-18); BUN/Creat Ratio 13.1 RATIO (10-20); Calcium,Total 8.7 mg/dL (8.5-10.1); Chloride 99 mmol/L (98-107); Creatinine, Serum 0.69 mg/dL (0.55-1.02); EST Glomerular Filtration Rate 86 mL/min (>60); Est Glom Filt Rate - Afr Amer 104 mL/min (>60); Globulin 3.4 g/dL (2.2-4.2); Glucose 100 mg/dL (74-106); Potassium 3.8 mmol/L (3.5-5.1); Protein, Total 6.4 g/dL (6.4-8.2); Sodium Level 136 mmol/L (136-145)
[2022-04-07 09:44] LABS: Prothrombin Time (Protime)PT. 22.6 SECONDS (11.7-14.9)
== END ==
PROVIDERS: PCP Family Medicine; Visit Provider Family Medicine
DX: I48.91 Unspecified atrial fibrillation (principal); I10 Essential (primary) hypertension; E78.5 Hyperlipidemia, unspecified; Z79.01 Long term (current) use of anticoagulants
CPT/HCPCS: 36415; 80053; 85027; 85610

== ENCOUNTER → 2022-05-09 | Outpatient (REF) | payer MEDICARE, SELFPAY ==
[2022-05-09 09:04] LABS: Hemoglobin 13.4 g/dL (12.0-15.0); Mean Corp Hgb Conc 32.7 g/dL (32-36); Mean Corpuscular Hgb 30.4 pg (27.0-32.0); Mean Platelet Vol. 10.5 fl (6.2-12.0); Platelet Count 257 K/mm3 (150-450); RBC Distribution Width CV 12.4 % (11.6-14.6); RBC Distribution Width SD 42.8 fl (35.1-43.9); Red Blood Count 4.41 M/mm3 (4.2-5.4); White Blood Count 5.8 K/mm3 (4.4-11.0)
[2022-05-09 09:15] LABS: International Normalized Ratio 1.8; Prothrombin Time (Protime)PT. 20.3 SECONDS (11.7-14.9)
[2022-05-09 09:16] LABS: ALB/GLOB Ratio 0.9 RATIO (0.9-2.4); AST(SGOT) 23 U/L (15-37); Alanine Aminotransfer ALT/SGPT 29 U/L (13-56); Albumin, Serum 3.2 g/dL (3.2-5.0); Alkaline Phosphatase 61 U/L (45-117); Anion Gap 4 (5-15); BUN 12 mg/dL (7-18); BUN/Creat Ratio 15.6 RATIO (10-20); Calcium,Total 8.8 mg/dL (8.5-10.1); Chloride 99 mmol/L (98-107); Creatinine, Serum 0.77 mg/dL (0.55-1.02); EST Glomerular Filtration Rate 76 mL/min (>60); Est Glom Filt Rate - Afr Amer 92 mL/min (>60); Globulin 3.7 g/dL (2.2-4.2); Glucose 115 mg/dL (74-106); Potassium 4.1 mmol/L (3.5-5.1); Protein, Total 6.9 g/dL (6.4-8.2); Sodium Level 135 mmol/L (136-145)
== END ==
PROVIDERS: PCP Family Medicine; Referring Provider Family Medicine; Visit Provider Family Medicine
DX: I48.91 Unspecified atrial fibrillation (principal); I10 Essential (primary) hypertension; Z79.01 Long term (current) use of anticoagulants
CPT/HCPCS: 36415; 80053; 85027; 85610

== ENCOUNTER → 2022-06-06 | Outpatient (REF) | payer MEDICARE, SELFPAY ==
[2022-06-06 10:22] LABS: Hemoglobin 12.2 g/dL (12.0-15.0); Mean Corpuscular Hgb 30.6 pg (27.0-32.0); Mean Corpuscular Volume 92.7 fL (81-99); Mean Platelet Vol. 10.5 fl (6.2-12.0); Platelet Count 214 K/mm3 (150-450); RBC Distribution Width CV 12.7 % (11.6-14.6); RBC Distribution Width SD 43.4 fl (35.1-43.9); Red Blood Count 3.99 M/mm3 (4.2-5.4); White Blood Count 5.9 K/mm3 (4.4-11.0)
[2022-06-06 10:34] LABS: ALB/GLOB Ratio 0.9 RATIO (0.9-2.4); AST(SGOT) 21 U/L (15-37); Alanine Aminotransfer ALT/SGPT 25 U/L (13-56); Albumin, Serum 2.9 g/dL (3.2-5.0); Alkaline Phosphatase 54 U/L (45-117); Anion Gap 8 (5-15); BUN 15 mg/dL (7-18); BUN/Creat Ratio 19.7 RATIO (10-20); Calcium,Total 8.3 mg/dL (8.5-10.1); Chloride 101 mmol/L (98-107); Cholesterol 111 mg/dL (200); Creatinine, Serum 0.76 mg/dL (0.55-1.02); EST Glomerular Filtration Rate 77 mL/min (>60); Est Glom Filt Rate - Afr Amer 93 mL/min (>60); Globulin 3.1 g/dL (2.2-4.2); Glucose 93 mg/dL (74-106); High Density Lipoprotein 47 mg/dL; Sodium Level 140 mmol/L (136-145); Triglycerides 51 mg/dL; Very Low Density Lipoprotein 10 mg/dL (5-40)
[2022-06-06 10:42] LABS: International Normalized Ratio 2.1; Prothrombin Time (Protime)PT. 23.1 SECONDS (11.7-14.9)
== END ==
PROVIDERS: PCP Family Medicine; Visit Provider Family Medicine
DX: I10 Essential (primary) hypertension (principal); E87.6 Hypokalemia; E87.1 Hypo-osmolality and hyponatremia
CPT/HCPCS: 36415; 80053; 80061; 85027; 85610

== ENCOUNTER 2022-06-16 12:12 | Observation (INO) | payer MEDICARE, SELFPAY ==
[2022-06-16] VITALS (12 sets, daily range): BP systolic 101–156; BP diastolic 54–113; PULSE 55–67; RESP 13–20; TEMP 36.4–36.8; O2SAT 92–95; BMI 32.6
--- NOTE | 2022-06-16 12:48 | EKG12_ITS ---
Test Reason : Blood Pressure : / mmHG Vent. Rate : 061 BPM Atrial Rate : 061 BPM P-R Int : 178 ms QRS Dur : 112 ms QT Int : 474 ms P-R-T Axes : 047 001 004 degrees QTc Int : 477 ms Sinus rhythm with Fusion complexes Minimal voltage criteria for LVH, may be normal variant ( Vian product ) Borderline ECG Confirmed by CALLI HOLLAND, LUCILA ([id number]), science editor DELISA MAYA ([id number]) on 06/20/2022 10:31:02 AM Referred By: TOMASA Confirmed By:LUCILA MCCURDY MD
--- NOTE | 2022-06-16 12:48 | CT_ITS ---
STUDY: CT HEAD STROKE PROTOCOL W/O CONTRAST INJECTION REASON FOR EXAM: Female, 86 years old. Neuro deficit, acute, stroke suspected RADIATION DOSAGE (If Supplied By Facility): CTDIvol = ( 44.99 ) mGy, DLP = ( 796.11 ) mGycm TECHNIQUE: Transaxial CT imaging of the brain was performed without administration of intravenous contrast material. Individualized dose optimization techniques were used for this CT. COMPARISON: Comparison is made with prior study dated 03/07/2022. FINDINGS: Normal soft tissue structures. Normal calvarium. There is mild cerebral atrophy with widening of the extra-axial spaces and ventricular dilatation. There are areas of decreased attenuation within the white matter tracts of the supratentorial brain, consistent with microvascular disease changes. There are small punctate calcifications of the basal ganglia which are seen in the aging brain as a normal variant. Normal brainstem. There is mild cerebellar atrophy. There is no intracranial hemorrhage. There are no findings of an acute ischemic infarction. Atherosclerotic calcification of the cavernous portions of the internal carotid arteries bilaterally. Normal visualized paranasal sinuses. ASPECT score: 10 CT/STROKE Brain/Head without Cont IMPRESSION: Chronic involutional changes of the brain. N.B. : The above Results were Read Back by Agapito Jimenez MD to Jesse Davis and understanding confirmed on 06/16/2022 13:10:16 (ET). Electronically Signed: Agapito Jimenez MD at 13:11 EST ,
--- NOTE | 2022-06-16 12:48 | CT_ITS ---
STUDY: CTA HEAD AND NECK WITH CONTRAST REASON FOR EXAM: Female, 86 years old. Neuro deficit, acute, stroke suspected RADIATION DOSAGE (If Supplied By Facility): CTDIvol = ( 21.78 ) mGy, DLP = ( 679.62 ) mGycm TECHNIQUE: CT angiography was performed with a multi-detector CT scanner. Data acquisition was obtained from the skull base through the vertex following intravenous administration of IV 100mL [id number]-[id number]. MIP images were reconstructed from the axial data set. Post-processing of the angiographic images was performed, with multiplanar reformation and 3D reconstruction. Individualized dose optimization techniques were used for this CT. COMPARISON: No relevant priors. FINDINGS: Normal bilateral petrous carotid arteries. There is calcified plaque formation of the right cavernous carotid artery, without a cross-sectional luminal stenosis. There is calcified plaque formation of the left cavernous carotid artery, without a cross-sectional luminal stenosis. Normal right A1 segments of the anterior cerebral artery. Normal left A1 segments of the anterior cerebral artery. Normal intact anterior communicating artery (ACOM). Normal bilateral A2 segments of the anterior cerebral arteries. Normal right M1 and M2 segments of the middle cerebral arteries, with a normal M1 bifurcation. Normal left M1 and M2 segments of the middle cerebral arteries, with a normal M1 bifurcation. Normal right posterior communicating artery (PCOM). Normal left posterior communicating artery (PCOM). Normal bilateral vertebral arteries. Normal basilar artery with a normal basilar bifurcation. The visualized bilateral superior cerebellar (SCA) arteries are normal. Normal bilateral P1, P2 and visualized P3 segments of the posterior cerebral arteries. There is no demonstrated aneurysm of the [place]. Cerebral atrophy. Prior CABG. AORTIC ARCH: There is atherosclerotic calcific plaque formation of the aortic arch and great vessels arising from the aortic arch, without a hemodynamically significant stenosis. There is a normal origin of the brachiocephalic, left common carotid, and left subclavian arteries. Atherosclerotic plaque formation at the origin of the left common carotid artery as well as the left subclavian artery. RIGHT CAROTID ARTERIES: There is atherosclerotic plaque formation of the common carotid artery, but without a hemodynamically significant stenosis. Normal right common carotid bulb. There is moderate atherosclerotic plaque formation of the origin of the right internal carotid artery with an estimated stenosis of 50-69% stenosis. Normal visualized cervical portion of the right internal carotid artery. Normal origin of the right external carotid artery (ECA). LEFT CAROTID ARTERIES: There is atherosclerotic plaque formation of the common carotid artery, but without a hemodynamically significant stenosis. Normal left common carotid bulb. There is moderate atherosclerotic plaque formation of the origin of the left internal carotid artery with an estimated stenosis of 50-69% stenosis. Normal visualized cervical portion of the left internal carotid artery. Normal origin of the left external carotid artery (ECA). VERTEBRAL ARTERIES: Normal bilateral vertebral arteries. CT/STROKE CTA Head AND Neck W/Con IMPRESSION: Calcific plaque formation at the origin of the right and left internal carotid arteries causing 50-69% narrowing. N.B. : The above Results were Read Back by Agapito Jimenez MD to Jesse Davis and understanding confirmed on 06/16/2022 13:29:51 (ET). Electronically Signed: Agapito Jimenez MD at 13:30 EST ,
--- NOTE | 2022-06-16 12:49 | ED.VIS.STROK ---
HPI History of Present Illness Chief Complaint: Alt LOC Detail of Chief Complaint: Slurred speech, paresthesias right hand Informant: patient Narrative Narrative: Patient presents the emergency department with complaint of slurred speech this morning. Patient on Coumadin and apparently had a fall last evening where she lost her balance after picking up some cat litter and hit her head. No loss of consciousness. This morning she had meds at 914 and apparently was her normal self but soon after apparently may have developed some slurred speech. Patient herself is unsure what time that was. Daughter who is with her states that she thinks the nursing staff noted the slurred slurred speech around 11 AM. Patient on Coumadin for history of A. fib. Patient has had prior TIAs. Patient also states that she had some visual changes from the right eye where she had a hard time seeing from the periphery of the right eye but that is resolved currently as well. Patient still having some numbness and some mild weakness of the right hand. Prior similar symptoms: Yes PFSH PFSH Medical History Atherosclerotic heart disease of [place] coronary artery without angina pectoris Atrial fibrillation with RVR (10/01/16) Bilateral breast cancer Depression Essential hypertension Frequent falls History of non-ST elevation myocardial infarction (NSTEMI) (10/01/16) History of pulmonary embolus (PE) Hypercoagulable state long-term current use of anticoagulant Memory loss Nonrheumatic aortic (valve) stenosis Parkinsonian syndrome Paroxysmal atrial fibrillation Poor balance Postoperative atrial fibrillation (04/04/13) Recurrent deep vein thrombosis (DVT) Restrictive airway disease Rheumatoid arthritis Home Medications atorvastatin 40 mg tablet 40 mg PO QHS cholesterol 10/01/16 [History Last Taken 06/15/22 20:45] venlafaxine 75 mg tablet 75 mg PO QHS DEPRESSION 02/14/19 [History Last Taken 06/15/22 20:45] albuterol sulfate 90 mcg/actuation aerosol inhaler (Ventolin HFA) 2 puff inhalation Q6H PRN Wheezing 09/23/21 [History Last Taken Unknown] losartan 100 mg tablet 100 mg PO DAILY BP 09/23/21 [History Last Taken 06/16/22 09:15] trazodone 100 mg tablet 100 mg PO QHS Sleep 09/23/21 [History Last Taken 06/15/22 20:45] hydroxychloroquine 200 mg tablet 200 mg PO BID RA 11/02/21 [History Last Taken 06/16/22 09:15] venlafaxine 150 mg capsule,extended release 24 hr 150 mg PO BREAKFAST DEPRESSION 11/02/21 [History Last Taken 06/16/22 09:15] alprazolam 0.25 mg tablet 0.25 mg PO QHS PRN PRN Anxiety/Restlessness/Sleep #0 tabs 11/10/21 [Rx Last Taken 06/15/22 11:30] potassium chloride 20 mEq tablet,extended release(part/cryst) (Klor-Con M) 20 meq PO DAILYCM 30 days #30 tabs 11/10/21 [Rx Last Taken 06/16/22 09:15] hydrochlorothiazide 25 mg tablet 25 mg PO DAILY 03/07/22 [History Last Taken 06/16/22 09:15] acetaminophen 325 mg tablet 650 mg PO Q6H PRN Pain 06/16/22 [History Last Taken 06/08/22 20:00] alprazolam 0.5 mg tablet 0.5 mg PO QHS DEPRESSION 06/16/22 [History Last Taken 06/15/22 20:45] metoprolol tartrate 100 mg tablet 100 mg PO BID HTN 06/16/22 [History Last Taken 06/16/22 09:15] warfarin 5 mg tablet 5 mg PO DINNER AFIB 06/16/22 [History Last Taken 06/15/22 16:45] Allergy/AdvReac Type Severity Reaction Status Date / Time Penicillins Allergy Anaphylaxis Verified 06/16/22 12:15 acetaminophen [From Vicodin] AdvReac Itching Verified 06/16/22 12:15 codeine AdvReac Nausea Verified 06/16/22 12:15 ezetimibe [From Zetia] AdvReac Itching Verified 06/16/22 12:15 hydrocodone bitartrate AdvReac Itching Verified 06/16/22 12:15 [From Vicodin] Vbikqxb-SZY-KkF Reductase AdvReac Other Verified 06/16/22 12:15 Inhibitor [Bqzpuos-Gxr-Bdv Reductase Inhibitor] Surgical History 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) History of appendectomy History of cardioversion (10/01/16) History of coronary artery stent placement (12/2003) History of left heart catheterization (10/13/15) Social History household members: none Smoking Status: Former smoker how long ago did patient quit smokin, 1ppd second hand exposure: Yes alcohol intake: never substance use type: does not use ROS ROS ED Review of Systems ROS Unobtainable: other Constitutional Constitutional ED: Reports lethargy; Denies chills, fever(s), sweats or weight loss Eyes Eyes: Denies blurry vision, change in vision or diplopia ENT ENT ED: Denies rhinorrhea or sore throat Cardiovascular Cardiovascular: Denies chest pain, orthopnea or racing heartbeat Respiratory/Chest Respiratory/Chest: Denies cough, dyspnea, dyspnea on exertion, orthopnea or sputum Gastrointestinal Gastrointestinal: Denies abdominal pain, diarrhea, nausea or vomiting Genitourinary Genitourinary ED: Denies dysuria, hematuria or urinary frequency Musculoskeletal Musculoskeletal: Denies arthralgias, back pain, myalgias or neck pain Integumentary Denies abscess, Abrasions or rash Neurologic Neurologic: Reports headache(s), paresthesias, weakness and other Details: Speech difficulty that is now resolved, vision change now resolved Psychiatric Psychiatric: Denies anxiety, depression or suicidal thoughts Endocrine Endocrinology: Denies polydipsia, polyphagia or polyuria Hematologic/Lymphatic Hematologic/Lymphatic: Denies easy bleeding, easy bruising or lymphadenopathy Allergic/Immunologic Allergic/Immunologic ED: Denies mouth swelling, tongue swelling or urticaria EXAM Physical Exam Const Vital Signs: 06/16/22 12:16 06/16/22 12:48 06/16/22 12:48 Temperature 97.9 F Temperature Source Temporal Pulse Rate 61 65 Respiratory Rate 13 16 Blood Pressure 150/113 H 131/74 H Blood Pressure Mean 125 93 Pulse Ox 92 Oxygen Delivery Method Room Air Room Air Room Air Positive well nourished and well developed General Appearance ED: well developed and NAD HEENT Reports TM's clear and moist mucous membranes normocephalic and atraumatic; Negative for trauma or tenderness Tympanic Membrane ED: Yes TM's clear Eyes PERRL and EOMs intact bilaterally General Eye ED: Negative for pale conjunctiva or scleral icterus Neck no lymphadenopathy, supple and no JVD General: Negative for tenderness Chest Wall inspection of chest normal and palpation of chest normal Chest: Negative for tenderness Resp normal respiratory effort and clear to auscultation bilaterally Effort and Inspection: Negative for respiratory distress or pain with movement Auscultation: Negative for rhonchi, wheezes or diminished lung sounds Cardio regular rate, regular rhythm, S1 normal heart sound, S2 normal heart sound and no murmurs Peripheral Pulses: pulses 2+ throughout GI normal to inspection, nondistended, normoactive bowel sounds, soft to palpation, non-tender, non-distended and no masses Back/Spine no CVA tenderness and no thoracic nor lumbar tenderness Extremity normal to inspection General Extremety ED: Negative for edema General Extremity: Negative for edema Neuro oriented x3, CN's II-XII intact bilaterally, no sensory deficits noted and gait normal Neuro Narrative: Patient has no focal neurologic deficits noted. She does have some slightly decreased sensation to the right hand compared to left therefore I will give her an NIH stroke scale of 1. Sensorium / Orientation: awake, alert, oriented to person, oriented to place and oriented to time Motor Exam: strength 5/5 throughout and strength abnormal Psych mental status grossly normal Skin no rashes or lesions noted and no wounds MDM MDM MDM Narrative Medical decision making narrative: IV line established on arrival. 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 Stroke team was activated after my evaluation of the patient. Initially it was unclear exactly when the symptoms started but we were able to call the assisted living facility and note that around 9 AM she had her medications and at that time was normal. Patient also on Coumadin and not a thrombolytic candidate. Patient also with low NIH of 1. Speech difficulties resolved. Patient was evaluated by stroke neurologist and agreed that no tPA was indicated. Patient had a CT scan of the brain without contrast that showed chronic involutional changes. CTA of the head and neck showed some stenosis of the carotid arteries from 50 to 69% bilaterally. Stroke neurologist recommended admission for completing stroke work-up. Case will be discussed with hospitalist to evaluate patient for admission Lab Data Attestation: I reviewed the patient's lab results. Labs: Laboratory Results - last 24 hr 06/16/22 06/16/22 06/16/22 12:51 12:51 12:51 WBC 6.4 RBC 4.32 Hgb 13.1 Hct 39.5 MCV 91.4 MCH 30.3 MCHC 33.2 RDW Std Deviation 41.0 RDW Coeff of Lindy 12.3 Plt Count 233 MPV 10.1 Immature Gran % (Auto) 0.200 Neut % (Auto) 56.3 Lymph % (Auto) 30.6 Harney % (Auto) 8.2 Eos % (Auto) 3.9 Baso % (Auto) 0.8 Absolute Neuts (auto) 3.6 Absolute Lymphs (auto) 1.94 Nucleated RBC % 0 PT 21.0 H INR 1.9 APTT 30.2 Sodium 135 L Potassium 4.2 Chloride 99 Carbon Dioxide 32.0 Anion Gap 4 L BUN 12 Creatinine 0.72 Estim Creat Clear Calc 31.60 Est GFR (MDRD) Af Amer 100 Est GFR (MDRD) Non-Af 83 BUN/Creatinine Ratio 16.8 Glucose 98 Calcium 8.9 Troponin I High Sens 9 Radiography Diagnostic Testing: Clinical Impression(s) from Imaging Studies Brain CT 06/16/22 12:48 IMPRESSION: Chronic involutional changes of the brain. N.B. : The above Results were Read Back by Agapito Jimenez MD to Jesse Davis and understanding confirmed on 06/16/2022 13:10:16 (ET). Electronically Signed: Agapito Jimenez MD at 13:11 EST , ADDENDUM: 06/16/22 1318 IMPRESSION: Chronic involutional changes of the brain. N.B. : The above Results were Read Back by Agapito Jimenez MD to Jesse Davis and understanding confirmed on 06/16/2022 13:10:16 (ET). Electronically Signed: Agapito Jimenez MD at 13:11 EST , Head/Neck CTA 06/16/22 12:48 IMPRESSION: Calcific plaque formation at the origin of the right and left internal carotid arteries causing 50-69% narrowing. N.B. : The above Results were Read Back by Agapito Jimenez MD to Jesse Davis and understanding confirmed on 06/16/2022 13:29:51 (ET). Electronically Signed: Agapito Jimenez MD at 13:30 EST , ADDENDUM: 06/16/22 1337 IMPRESSION: Calcific plaque formation at the origin of the right and left internal carotid arteries causing 50-69% narrowing. N.B. : The above Results were Read Back by Agapito Jimenez MD to Jesse Davis and understanding confirmed on 06/16/2022 13:29:51 (ET). Electronically Signed: Agapito Jimenez MD at 13:30 EST , Chest X-Ray 06/16/22 13:15 IMPRESSION: Prior CABG. The lungs are clear. Electronically Signed: Agapito Jimenez MD at 13:46 EST , 1 view chest x-ray obtained interpreted by myself as no acute disease process without evidence of infiltrate or effusion or pneumothorax. Radiology in agreement. EKG Initial EKG: Attestation: I personally reviewed and interpreted this EKG as follows: Comments: Sinus rhythm with a rate of [address] changes and incomplete right bundle branch block Discharge Plan Dx/Rx/DC Orders Clinical Impression: Acute CVA (cerebrovascular accident), History of atrial fibrillation, History of hypertension, History of Parkinson's disease Disposition Disposition: Acute Care Hospital [facility]
--- NOTE | 2022-06-16 13:12 | NURSING ---
OK TO CANCEL [facility] PER DR RANDOLPH
--- NOTE | 2022-06-16 13:15 | RAD_ITS ---
STUDY: X-RAY CHEST REASON FOR EXAM: Female, 86 years old. Neuro deficit, acute, stroke suspected TECHNIQUE: Single AP portable view of the chest. COMPARISON: Comparison is made with prior study dated 03/07/2022. FINDINGS: EKG electrodes are seen. The lungs are clear and expanded. There is no demonstrated pleural abnormality. Sternal cerclage wires and vascular clips are present from a prior sternotomy and coronary artery bypass graft procedure (CABG). Normal mediastinum and sue. Normal visualized pulmonary arteries. There is atherosclerotic calcification of the aortic arch with tortuosity. There are diffuse degenerative changes of the visualized thoracic spine. Normal visualized ribs, clavicles, and shoulders. There is no demonstrated abnormality of the visualized soft tissue structures of the upper abdomen. RAD/Chest 1 View IMPRESSION: Prior CABG. The lungs are clear. Electronically Signed: Agapito Jimenez MD at 13:46 EST ,
[2022-06-16 13:17] LABS: International Normalized Ratio 1.9; Partial Thromboplast Time 30.2 Seconds (24.1-36.2)
[2022-06-16 13:24] LABS: Anion Gap 4 (5-15); BUN 12 mg/dL (7-18); BUN/Creat Ratio 16.8 RATIO (10-20); Calcium,Total 8.9 mg/dL (8.5-10.1); Chloride 99 mmol/L (98-107); Creatinine, Serum 0.72 mg/dL (0.55-1.02); EST Glomerular Filtration Rate 83 mL/min (>60); Est Glom Filt Rate - Afr Amer 100 mL/min (>60); Glucose 98 mg/dL (74-106); Potassium 4.2 mmol/L (3.5-5.1); Sodium Level 135 mmol/L (136-145); Troponin-I HS 9 pg/mL (3.0-54.0)
[2022-06-16 13:25] LABS: Absolute Lymphocyte Count 1.94 X10^3/uL (0.83-4.51); Absolute Neutrophil Count 3.6 X10^3/uL (2.0-7.7); Basophil# 0.05 X10^3/uL; Basophil% 0.8 % (0-1); Eosinophil# 0.25 X10^3/uL; Eosinophils% 3.9 % (0-5); Hematocrit 39.5 % (37-47); Hemoglobin 13.1 g/dL (12.0-15.0); Lymphocyte # 1.94 X10^3/ul (0.83-4.51); Lymphocyte % 30.6 % (19-41); Mean Corp Hgb Conc 33.2 g/dL (32-36); Mean Corpuscular Hgb 30.3 pg (27.0-32.0); Mean Corpuscular Volume 91.4 fL (81-99); Mean Platelet Vol. 10.1 fl (6.2-12.0); Monocyte# 0.52 X10^3/uL; Monocyte% 8.2 % (0-10); NRBC Flagged by Analyzer 0 % (0-5); Neutrophil # 3.58 X10^3/uL (2.7-7.7); Neutrophil % 56.3 % (47-70); Platelet Count 233 K/mm3 (150-450); RBC Distribution Width CV 12.3 % (11.6-14.6); Red Blood Count 4.32 M/mm3 (4.2-5.4); White Blood Count 6.4 K/mm3 (4.4-11.0)
--- NOTE | 2022-06-16 14:24 | CHAPLAIN ---
Type of Pastoral Visit ___ Initial Visit ___ Follow-up Visit ___ On-call Visit ___ General Patient Visit ___ Spiritual Assessment ___ Family Conference ___ Bereavement _x__ Rapid Response ___ Code Blue ___ Other (describe below) Pastoral Care Referral From ___ Patient ___ Family ___ Nurse ___ Physician ___ Employment Manager ___ Supervisor Dog License Officer _x__ Other (describe below) Sacrament/Intervention _x__ Active listening ___ Anointing ___ Anabaptist ___ Bereavement ___ Communion ___ Pauline exploration ___ ___ Life review ___ Prayer ___ Reconciliation ___ Sacrament of Sick _x__ Supportive presence ___ Wedding ___ Other (describe below) Pastoral Comments responded to stroke alert; patient was being taken to CT; daughter was in room and knows this image scientist through a family member; daughter is not worried as this has happened before and it was fine; pt is said to be doing better already; gave presence to daughter as she talked about life, work, and family; patient returned to room for further evaluation; introduced self and role to patient who expresses gratitude; pt now to be given further evaluation; left room at this time
--- NOTE | 2022-06-16 17:38 | NURSING ---
PCU OBS LOVE CVA
--- NOTE | 2022-06-16 20:29 | HP.PCM.HOS_ITS ---
[facility] - General General Date of Admission: 06/16/22 Date of Service: 06/16/22 Chief Complaint: Right upper extremity weakness, slurred speech HPI Narrative ERASTO RICHARDSON, is a 86 F who presents to the emergency room at [facility] from assisted living facility with complaints of right upper extremity weakness and slurred speech which started approximately 11 AM this morning. Patient has a past history of cerebrovascular disease, she is not taking a daily aspirin however. Patient also has a history of paroxysmal atrial fibrillation and pulmonary emboli, she does take Coumadin chronically. A stroke alert was called when the patient reached the emergency room, CT of the head was performed as well as a CT of the head and neck, there was no evidence of acute stroke/bleed and tPA was not recommended. Labs were obtained, CBC was unremarkable, chemistry profile was unremarkable, and INR was 1.9. Patient's NIH score was 1. Patient will be placed in observation status on PCU, she will have an MRI of the brain tomorrow, I have not ordered an echocardiogram on the patient-this could be performed pending the results of the patient's MRI. According to the patient's daughter who was present at the time of my examination in the room today, patient has had a past history of a CVA, the daughter does not think her speech is slurred at this time. [facility] Medical History Atherosclerotic heart disease of [place] coronary artery without angina pectoris Atrial fibrillation with RVR (10/01/16) Bilateral breast cancer Depression Essential hypertension Frequent falls History of non-ST elevation myocardial infarction (NSTEMI) (10/01/16) History of pulmonary embolus (PE) Hypercoagulable state technician terminal and repeater current use of anticoagulant Memory loss Nonrheumatic aortic (valve) stenosis Parkinsonian syndrome Paroxysmal atrial fibrillation Poor balance Postoperative atrial fibrillation (04/04/13) Recurrent deep vein thrombosis (DVT) Restrictive airway disease Rheumatoid arthritis Home Medications atorvastatin 40 mg tablet 40 mg PO QHS cholesterol 10/01/16 [History Last Taken 06/15/22 20:45] venlafaxine 75 mg tablet 75 mg PO QHS DEPRESSION 02/14/19 [History Last Taken 06/15/22 20:45] albuterol sulfate 90 mcg/actuation aerosol inhaler (Ventolin HFA) 2 puff inhala tion Q6H PRN Wheezing 09/23/21 [History Last Taken Unknown] losartan 100 mg tablet 100 mg PO DAILY BP 09/23/21 [History Last Taken 06/16/22 09:15] trazodone 100 mg tablet 100 mg PO QHS Sleep 09/23/21 [History Last Taken 06/15/22 20:45] hydroxychloroquine 200 mg tablet 200 mg PO BID RA 11/02/21 [History Last Taken 06/16/22 09:15] venlafaxine 150 mg capsule,extended release 24 hr 150 mg PO BREAKFAST DEPRESSION 11/02/21 [History Last Taken 06/16/22 09:15] alprazolam 0.25 mg tablet 0.25 mg PO QHS PRN PRN Anxiety/Restlessness/Sleep #0 tabs 11/10/21 [Rx Last Taken 06/15/22 11:30] potassium chloride 20 mEq tablet,extended release(part/cryst) (Klor-Con M) 20 meq PO DAILYCM 30 days #30 tabs 11/10/21 [Rx Last Taken 06/16/22 09:15] hydrochlorothiazide 25 mg tablet 25 mg PO DAILY 03/07/22 [History Last Taken 06/16/22 09:15] acetaminophen 325 mg tablet 650 mg PO Q6H PRN Pain 06/16/22 [History Last Taken 06/08/22 20:00] alprazolam 0.5 mg tablet 0.5 mg PO QHS DEPRESSION 06/16/22 [History Last Taken 0 06/15/22 20:45] metoprolol tartrate 100 mg tablet 100 mg PO BID HTN 06/16/22 [History Last Taken 06/16/22 09:15] warfarin 5 mg tablet 5 mg PO DINNER AFIB 06/16/22 [History Last Taken 06/15/22 16:45] Allergy/AdvReac Type Severity Reaction Status Date / Time Penicillins Allergy Anaphylaxis Verified 06/16/22 12:15 acetaminophen [From Vicodin] AdvReac Itching Verified 06/16/22 12:15 codeine AdvReac Nausea Verified 06/16/22 12:15 ezetimibe [From Zetia] AdvReac Itching Verified 06/16/22 12:15 hydrocodone bitartrate AdvReac Itching Verified 01/19/23 12:15 [From Vicodin] Heowpkn-EMS-ItF Reductase AdvReac Other Verified 06/16/22 16:35 Inhibitor [Zeenohz-Rtb-Zps Reductase Inhibitor] Surgical History 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) History of appendectomy History of cardioversion (10/01/16) History of coronary artery stent placement (12/2003) History of left heart catheterization (10/13/15) Social History household members: none Smoking Status: Former smoker how long ago did patient quit smokin, 1ppd second hand exposure: Yes alcohol intake: never substance use type: does not use ROS Constitutional Constitutional: Denies anorexia, change in weight, chills, fatigue, fever(s), night sweats or weakness Eyes Eyes: Denies blurry vision, change in vision, discharge from eye(s) or eye pain Cardiovascular Cardiovascular: Denies chest pain, claudication, dyspnea on exertion, edema, lightheadedness or palpitations Respiratory/Chest Respiratory/Chest: Denies cough, excessive phlegm production, hemoptysis, productive cough, shortness of breath at rest or shortness of breath with exertion Gastrointestinal Gastrointestinal: Denies abdominal pain, constipation, diarrhea, hematemesis, hematochezia, melena, nausea or vomiting Genitourinary Genitourinary: Denies dysuria, hematuria, urinary frequency, urinary hesitancy, urinary incontinence or urinary urgency Musculoskeletal Musculoskeletal: Denies back pain, joint pain, joint stiffness, joint swelling, myalgias or neck pain Neurologic Neurologic: Reports abnormal speech and focal weakness; Denies abnormal gait, dizziness, headache(s), loss of vision, numbness, other visual disturbances, paresthesias, syncope or tingling Psychiatric Psychiatric: Denies anxiety, cognitive impairment, depression, irritability, mood swings or suicidal ideation Endocrine Endocrinology: Denies change in body appearance, cold intolerance, excessive sweating, heat intolerance, polydipsia or polyuria Hematologic/Lymphatic Hematologic/Lymphatic: Denies none, anemia, easy bleeding, easy bruising or lymphadenopathy Allergic/Immunologic Allergic/Immunologic: Denies rhinitis, urticaria, eczemia or asthma Vital Signs Vital Signs Vital Signs: 06/16/22 12:16 06/16/22 12:48 06/16/22 12:48 Temperature 97.9 F Temperature Source Temporal Pulse Rate 61 65 Respiratory Rate 13 16 Blood Pressure 150/113 H 131/74 H Blood Pressure Mean 125 93 Pulse Ox 92 Oxygen Delivery Method Room Air Room Air Room Air 06/16/22 14:14 06/16/22 16:14 06/16/22 18:14 Temperature Temperature Source Pulse Rate Respiratory Rate 16 18 Blood Pressure 156/67 H Blood Pressure Mean 96 Pulse Ox Oxygen Delivery Method 06/16/22 17:33 06/16/22 18:07 Temperature 97.6 F L Temperature Source Temporal Pulse Rate 67 62 Respiratory Rate 20 H Blood Pressure 156/67 H Blood Pressure Mean 96 Pulse Ox 95 Oxygen Delivery Method Room Air Weight Weight: 78.4 kg Body Mass Index (BMI) 32.6 Physical Exam Const alert, oriented x3, no apparent distress and average body habitus Constitutional Narrative: Patient appears her stated age General Appearance: cooperative, well kempt and well developed Orientation / Consciousness: awake, oriented to person, oriented to place and oriented to time HEENT normocephalic, head/scalp atraumatic, hearing grossly normal bilaterally and moist oral mucous membranes Eyes PERRL, EOMs intact bilaterally and conjunctivae normal Neck supple, no JVD, thyroid normal and no carotid bruits General: trachea midline Resp normal respiratory effort, no retractions, no use of accessory muscles and clear to auscultation bilaterally Auscultation: Negative for rales, rhonchi or wheezes Cardio regular rate, regular rhythm, S1 normal heart sound, S2 normal heart sound, no murmurs, no rub and no gallops GI normal to inspection, nondistended, normoactive bowel sounds, soft to palpation, non-tender and non-distended Extremity no clubbing, cyanosis or edema Skin no rashes or lesions noted General Skin Exam: no breakdown Neuro oriented x3, CN's II-XII intact bilaterally, moves all extremities and no sensory deficits noted Neuro Narrative: This examiner did not detect any weakness in the patient's right upper extremity on examination, patient has a slow deliberate speech pattern which according to the daughter is normal for the patient Sensorium / Orientation: awake, alert, oriented to person, oriented to place and oriented to time Motor Exam: strength 5/5 throughout Psych affect normal Results Lab / Micro Data Result Diagrams: 06/16/22 12:51 06/16/22 12:51 Labs: Laboratory Results - last 24 hr 06/16/22 12:51: WBC 6.4, RBC 4.32, Hgb 13.1, Hct 39.5, MCV 91.4, MCH 30.3, MCHC 33.2, RDW Std Deviation 41.0, RDW Coeff of Lindy 12.3, Plt Count 233, MPV 10.1, Immature Gran % (Auto) 0.200, Neut % (Auto) 56.3, Lymph % (Auto) 30.6, Mcpherson % (Auto) 8.2, Eos % (Auto) 3.9, Baso % (Auto) 0.8, Absolute Neuts (auto) 3.6, Absolute Lymphs (auto) 1.94, Nucleated RBC % 0 06/16/22 12:51: PT 21.0 H, INR 1.9, APTT 30.2 06/16/22 12:51: Sodium 135 L, Potassium 4.2, Chloride 99, Carbon Dioxide 32.0, Anion Gap 4 L, BUN 12, Creatinine 0.72, Estim Creat Clear Calc 31.60, Est GFR ( MDRD) Af Amer 100, Est GFR (MDRD) Non-Af 83, BUN/Creatinine Ratio 16.8, Glucose 98, Calcium 8.9, Troponin I High Sens [address] 06/16/22 12:48 IMPRESSION: Chronic involutional changes of the brain. N.B. : The above Results were Read Back by Agapito Jimenez MD to Jesse Davis and understanding confirmed on 06/16/2022 13:10:16 (ET). Electronically Signed: Agapito Jimenez MD at 13:11 EST , ADDENDUM: 06/16/22 1318 IMPRESSION: Chronic involutional changes of the brain. N.B. : The above Results were Read Back by Agapito Jimenez MD to Jesse Davis and understanding confirmed on 06/16/2022 13:10:16 (ET). Electronically Signed: Agapito Jimenez MD at 13:11 EST , Head/Neck CTA 06/16/22 12:48 IMPRESSION: Calcific plaque formation at the origin of the right and left internal carotid arteries causing 50-69% narrowing. N.B. : The above Results were Read Back by Agapito Jimenez MD to Jesse Davis and understanding confirmed on 06/16/2022 13:29:51 (ET). Electronically Signed: Agapito Jimenez MD at 13:30 EST , ADDENDUM: 06/16/22 1337 IMPRESSION: Calcific plaque formation at the origin of the right and left internal carotid arteries causing 50-69% narrowing. N.B. : The above Results were Read Back by Agapito Jimenez MD to Jesse Davis and understanding confirmed on 06/16/2022 13:29:51 (ET). Electronically Signed: Agapito Jimenez MD at 13:30 EST , Chest X-Ray 06/16/22 13:15 IMPRESSION: Prior CABG. The lungs are clear. Electronically Signed: Agapito Jimenez MD at 13:46 EST , Assessment & Plan Assessment/Plan (1) Right arm weakness: PLAN: Plan 1. Right upper extremity weakness-etiology unclear at this point, patient will be placed in observation status on PCU, MRI of the brain will be obtained, neurochecks will be carried out, patient was placed on a baby aspirin a day, she will remain on her statin. Patient has an allergy listed to statins-although she takes daily Lipitor at her assisted living facility. #2 slurred speech-resolved at this time-etiology unclear, again MRI will be obtained to rule out stroke #3 paroxysmal A. fib-patient is currently on Coumadin, INR slightly low-I gave the patient an extra dose of Coumadin today, INR be rechecked tomorrow #4 coronary artery disease-this appears stable at this time #5 essential hypertension-patient will remain on her current medications #6 hypercoagulable state secondary to paroxysmal A. fib-patient will remain on warfarin, INR will be rechecked Total clinical time spent by myself addressing the patient's medical issues, reviewing the patient's medical data, and collaborating with patient's care team: 55-minute Charges/Coding Visit Charges Inpatient E&M: 98987 Init Hosp L2
[2022-06-16] MEDS: Atorvastatin Calcium 40 MG Tablet PO (21:24)
[2022-06-16] MEDS: Metoprolol Tartrate 100 MG Tablet PO (21:24)
[2022-06-16] MEDS: traZODone 100 MG Tablet PO (21:24)
[2022-06-16] MEDS: Hydroxychloroquine 200 MG Tablet PO (21:25)
[2022-06-16] MEDS: Aspirin 81 MG TAB.CHEW PO (21:33)
[2022-06-16] MEDS: ALPRAZolam 0.5 MG Tablet PO (21:33)
[2022-06-17] VITALS (7 sets, daily range): BP systolic 110–138; BP diastolic 49–87; PULSE 57–62; RESP 14–18; TEMP 36.4–36.8; O2SAT 94–97; BMI 32.6
[2022-06-17 06:02] LABS: International Normalized Ratio 1.8; Prothrombin Time (Protime)PT. 20.2 SECONDS (11.7-14.9)
[2022-06-17 06:07] LABS: Cholesterol 112 mg/dL (200); High Density Lipoprotein 45 mg/dL; Triglycerides 78 mg/dL; Very Low Density Lipoprotein 16 mg/dL (5-40)
[2022-06-17] MEDS: Venlafaxine XR 150 MG Capsule PO (08:18)
[2022-06-17] MEDS: Potassium Chloride Oral Tablet 20 MEQ PO (08:18)
[2022-06-17] MEDS: Hydroxychloroquine 200 MG Tablet PO (08:18)
[2022-06-17] MEDS: hydroCHLOROthiazide 25 MG Tablet PO (08:20)
[2022-06-17] MEDS: Losartan Potassium 100 MG Tablet PO (08:20)
[2022-06-17] MEDS: Metoprolol Tartrate 100 MG Tablet PO (08:20)
--- NOTE | 2022-06-17 09:00 | MRI_ITS ---
HISTORY: right upper extremity weakness, slurred speech. TECHNIQUE: Multiplanar and multisequence MR images of the brain were obtained without contrast. 282 images. COMPARISON: CT prior day. FINDINGS: BRAIN PARENCHYMA: Moderate chronic white matter changes. No abnormal focus of restricted diffusion. No acute intracranial hemorrhage identified. Old microhemorrhage in the left radha and right occipital lobe. 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 Susceptibility artifact in the right cerebellopontine calcification. CSF SPACES: Generalized volume loss. No significant midline shift or other mass effect.No extra-axial fluid collection. VASCULAR SYSTEM: Major intracranial flow voids are maintained. PARANASAL SINUSES AND MASTOID AIR CELLS: Small left maxillary sinus mucous retention cyst. ORBITS: Bilateral lens resections. MRI/Brain without Contrast IMPRESSION: No evidence for acute infarct. Moderate chronic involutional and white matter changes. Electronically Signed: Morenita Donovan MD at 10:02 EST ,
--- NOTE | 2022-06-17 11:50 | CM.UR ---
Addendum entered by Prema Mendoza 06/17/22 14:57: Social Work Pt had PT/OT, they are not recommending any further therapy at this time. SW sent PT, OT, SENIOR WINDOWS ENGINEER notes along w/discharge instructions to [facility]. SW set up a wheelchair van w/Physicians for 4pm. SW let nurse Denver at [facility] know the time, as well as the bedside RN. SW also let pt's daughter Brooke know the time of pickup, and also let the pt know, both in agreement. Pt to return to [facility] assisted living today. SHERICE Erickson Original Note: Social Work SW spoke w/physician, stroke was ruled out so PHQ-9 not completed. SW spoke w/pt in the room. Pt confirmed is from [facility] and agreeable to return. Pt agreeable to SW checking in w/her daughter Brooke. SW called daughter/NELY Cox, confirmed plan would be for pt to return to [facility] at discharge. SW asked about home health if needed. Pt has had [facility] and agreeable to referral to [facility] if needed, list declined. SW explained PT/OT still pending, if it's needed we can order the home health. SW spoke w/daughter about getting pt back to [facility], she states it may be easier for her to take an ambulette back rather than getting in and out of the family car. SW did let her know pt will get a bill for this, daughter states understanding. SW called [facility], spoke w/nurse Goff. He confirms pt should be able to return at discharge. BETTINA faxed updates to [facility]. BETTINA will continue for discharge back to [facility] when pt is ready. SHERICE Erickson
--- NOTE | 2022-06-17 12:27 | CHAPLAIN ---
Type of Pastoral Visit ___ Initial Visit _x__ Follow-up Visit ___ On-call Visit ___ General Patient Visit ___ Spiritual Assessment ___ Family Conference ___ Bereavement ___ Rapid Response ___ Code Blue ___ Other (describe below) Pastoral Care Referral From _x__ Patient ___ Family ___ Nurse ___ Physician ___ Storeroom Supervisor ___ C.O.D. Biller ___ Other (describe below) Sacrament/Intervention _x__ Active listening ___ Anointing ___ Druze ___ Bereavement ___ Communion ___ Pauline exploration ___ _x__ Life review _x__ Prayer ___ Reconciliation ___ Sacrament of Sick _x__ Supportive presence ___ Wedding ___ Other (describe below) Pastoral Comments this patient was seen in ED yesterday for the stroke alert; she was a referral for today; pt states she is waiting on test results and hopes to return to [place] today; pt states that she is fine to go back there and looks forward to it because she loves it there; pt was seen in previous admissions and she gives updates on life and her status; pt welcomes prayer for support as she also speaks of her glass etcher helper coming monthly to see her at [place]
--- NOTE | 2022-06-17 12:29 | DCINST_ITS ---
Discharge Instructions Diet Discharge Diet: Low fat / Low cholesterol and 2000 mg Sodium Diet Activity Discharge Activity: Return to Normal Activity Follow Up Care Test Results: Test results from this visit will be discussed in further detail at your follow- up appointment, if applicable. Discharge Plan Admission Admit Date/Time: 06/16/22 16:28 Primary Reason for Your Visit: Right sided weakness Attending Provider: Jesenia Lopez Primary Care Provider: Hortensia Unger Consulting Providers: Gonzalo Stephens Discharge Orders/Prescriptions Prescriptions: New aspirin 81 mg capsule 81 mg PO DAILY 30 Days Qty: 30 0RF Continued trazodone 100 mg tablet 100 mg PO QHS Label Comments: TAKE 1 TABLET BY MOUTH AT BEDTIME albuterol sulfate [Ventolin HFA] 90 mcg/actuation HFA aerosol inhaler 2 puff inhalation Q6H PRN (Reason: Wheezing) losartan 100 mg tablet 100 mg PO DAILY Label Comments: DAUGHTER IS UNSURE IF PT IS STILL TAKING. SHE WILL VERIFY AND CALL WITH UPDATE. atorvastatin 40 MG tablet 40 mg PO QHS Label Comments: CHOLESTEROL venlafaxine 75 MG tablet 75 mg PO QHS venlafaxine 150 mg Capsule,Extended Release 24hr 150 mg PO BREAKFAST hydroxychloroquine 200 mg tablet 200 mg PO BID Label Comments: TAKE 1 TABLET BY MOUTH TWICE DAILY alprazolam 0.25 mg Tablet 0.25 mg PO QHS PRN PRN (Reason: Anxiety/Restlessness/Sleep) Qty: 0 0RF potassium chloride [Klor-Con M20] 20 mEq Tablet,Er Particles/Crystals 20 meq PO DAILYCM 30 Days Qty: 30 0RF hydrochlorothiazide 25 mg tablet 25 mg PO DAILY acetaminophen 325 mg Tablet 650 mg PO Q6H PRN (Reason: Pain) metoprolol tartrate 100 mg tablet 100 mg PO BID alprazolam 0.5 mg tablet 0.5 mg PO QHS warfarin 5 mg tablet 5 mg PO DINNER Referrals / Follow Up: Hortensia Unger MD [Primary Care Provider] - Disposition Disposition (needs filled in before D/C Order can be placed): NonSkilled NH/Intermed Care
--- NOTE | 2022-06-17 13:53 | DS.PCM_ITS ---
Providers Date of Admission: 06/16/22 Date of Discharge: 06/17/22 Primary Care Physician: Dr. Hortensia Unger MD Reason For Visit: RIGHT UPPER EXTREMITY WEAKNESS, SLURRED SPEECH Diagnosis Discharge Diagnosis (1) Right arm weakness: Status: Acute Code(s): R29.898 - Other symptoms and signs involving the musculoskeletal system Medications at Discharge Home Medications atorvastatin 40 mg tablet 40 mg PO QHS cholesterol 10/01/16 venlafaxine 75 mg tablet 75 mg PO QHS DEPRESSION 02/14/19 albuterol sulfate 90 mcg/actuation aerosol inhaler (Ventolin HFA) 2 puff inhalation Q6H PRN Wheezing 09/23/21 losartan 100 mg tablet 100 mg PO DAILY BP 09/23/21 trazodone 100 mg tablet 100 mg PO QHS Sleep 09/23/21 hydroxychloroquine 200 mg tablet 200 mg PO BID RA 11/02/21 venlafaxine 150 mg capsule,extended release 24 hr 150 mg PO BREAKFAST DEPRESSION 11/02/21 alprazolam 0.25 mg tablet 0.25 mg PO QHS PRN PRN Anxiety/Restlessness/Sleep #0 tabs 11/10/21 potassium chloride 20 mEq tablet,extended release(part/cryst) (Klor-Con M) 20 meq PO DAILYCM 30 days #30 tabs 11/10/21 hydrochlorothiazide 25 mg tablet 25 mg PO DAILY 03/07/22 acetaminophen 325 mg tablet 650 mg PO Q6H PRN Pain 06/16/22 alprazolam 0.5 mg tablet 0.5 mg PO QHS DEPRESSION 06/16/22 metoprolol tartrate 100 mg tablet 100 mg PO BID HTN 06/16/22 warfarin 5 mg tablet 5 mg PO DINNER AFIB 06/16/22 aspirin 81 mg capsule 81 mg PO DAILY 30 days #30 caps 06/17/22 Hospital Course Operations None Procedures None and 2-D Echocardiogram Summary of Care Provided Minutes Spent on Discharge: 35 Hospital Course: 86-year-old female with multiple comorbidities, resident in assisted living facility who comes in with right upper extremity weakness and slurred speech th at started on the morning of the admission. Patient's initial CT as well as CTA of the head and neck were unremarkable for acute stroke. Patient was not a candidate for tPA. Her NIH score was 1. She was admitted to the telemetry floor and monitored no acute events. She underwent MRI that was unremarkable. Patient was seen by PT and OT and ST and no other additional therapies recommended She was discharged home on her Coumadin which was slightly subtherapeutic. Aspirin 81 mg p.o. daily was added. She was given a referral to neurology. She will need to follow-up with her primary care doctor within 1 week. Physical Exam Narrative Physical exam: General: Alert, Oriented x3, Cooperative HEENT: Atraumatic Oral: Moist Mucosa Neck: Supple Lungs: Clear to auscultation Cardiovascular: HS I+II, regular, no murmurs Abdomen: Bowel Sounds Present, Soft, Non Tender Extremities: No edema Skin: No rashes, No breakdown Neurological: Grossly intact Psych/Mental Status: Appropriate Weight / BMI Weight Weight: 78.4 kg Body Mass Index (BMI) 32.6 ABG / Lab / Microbiology Data Result Diagrams: 06/16/22 12:51 06/16/22 12:51 Laboratory: Laboratory Results - last 24 hr 06/17/22 05:21: PT 20.2 H, INR 1.8 06/17/22 05:21: Triglycerides 78, Cholesterol 112, LDL Cholesterol 51, VLDL Cholesterol 16, HDL Cholesterol 45 Radiography Diagnostic Testing: Radiology Impression Brain MRI 06/17/22 09:00 IMPRESSION: No evidence for acute infarct. Moderate chronic involutional and white matter changes. Electronically Signed: Morenita Donovan MD at 10:02 EST Reading Location ID and State: [address] [place] [address] Tel , Service support , D/C Instructions Discharge Diet: Low fat / Low cholesterol and 2000 mg Sodium Diet Meaningful Use Info Meaningful Use Diagnoses (Choose all that apply): None applicable Discharge Plan Admission Admit Date/Time: 06/16/22 16:28 Primary Reason for Your Visit: Right sided weakness Attending Provider: Jesenia Lopez Primary Care Provider: Hortensia Unger Consulting Providers: Gonzalo Stephens Discharge Orders/Prescriptions Prescriptions: New aspirin 81 mg capsule 81 mg PO DAILY 30 Days Qty: 30 0RF Continued trazodone 100 mg tablet 100 mg PO QHS Label Comments: TAKE 1 TABLET BY MOUTH AT BEDTIME albuterol sulfate [Ventolin HFA] 90 mcg/actuation HFA aerosol inhaler 2 puff inhalation Q6H PRN (Reason: Wheezing) losartan 100 mg tablet 100 mg PO DAILY Label Comments: DAUGHTER IS UNSURE IF PT IS STILL TAKING. SHE WILL VERIFY AND CALL WITH UPDATE. atorvastatin 40 MG tablet 40 mg PO QHS Label Comments: CHOLESTEROL venlafaxine 75 MG tablet 75 mg PO QHS venlafaxine 150 mg Capsule,Extended Release 24hr 150 mg PO BREAKFAST hydroxychloroquine 200 mg tablet 200 mg PO BID Label Comments: TAKE 1 TABLET BY MOUTH TWICE DAILY alprazolam 0.25 mg Tablet 0.25 mg PO QHS PRN PRN (Reason: Anxiety/Restlessness/Sleep) Qty: 0 0RF potassium chloride [Klor-Con M20] 20 mEq Tablet,Er Particles/Crystals 20 meq PO DAILYCM 30 Days Qty: 30 0RF hydrochlorothiazide 25 mg tablet 25 mg PO DAILY acetaminophen 325 mg Tablet 650 mg PO Q6H PRN (Reason: Pain) metoprolol tartrate 100 mg tablet 100 mg PO BID alprazolam 0.5 mg tablet 0.5 mg PO QHS warfarin 5 mg tablet 5 mg PO DINNER Referrals / Follow Up: Hortensia Unger MD [Primary Care Provider] - Disposition Disposition (needs filled in before D/C Order can be placed): NonSkilled NH/Intermed Care Charges/Coding Visit Charges Inpatient E&M: 82916 Disch Hosp >30min
== END 2022-06-17 16:41 | disposition intermediate care facility (04) ==
LOC: ED 16:51 → PCU 17:48
PROVIDERS: Admitting Provider Internal Medicine; Emergency Provider Emergency Medicine; PCP Family Medicine; Visit Provider Internal Medicine
DX: R29.898 Other symptoms and signs involving the musculoskeletal system (principal); G20 Parkinson's disease; M06.9 Rheumatoid arthritis, unspecified; I48.0 Paroxysmal atrial fibrillation; D68.59 Other primary thrombophilia; Z79.01 Long term (current) use of anticoagulants; I10 Essential (primary) hypertension; Z87.891 Personal history of nicotine dependence; R29.701 NIHSS score 1; I25.10 Atherosclerotic heart disease of native coronary artery without angina pectoris; R47.81 Slurred speech; Z79.899 Other long term (current) drug therapy; R53.1 Weakness; I25.2 Old myocardial infarction; Z86.718 Personal history of other venous thrombosis and embolism; Z86.711 Personal history of pulmonary embolism
CPT/HCPCS: 36415; 70450; 70496; 70498; 70551; 71045; 80048; 80061; 84484; 85025; 85610; 85730; 93005; 94762; 97162; 97166; 99221; 99285; Q9967; A4216; G0378

== ENCOUNTER → 2022-07-01 | Outpatient (REF) | payer MEDICARE, SELFPAY ==
[2022-07-01 10:22] LABS: Hematocrit 37.1 % (37-47); Hemoglobin 12.7 g/dL (12.0-15.0); Mean Corp Hgb Conc 34.2 g/dL (32-36); Mean Corpuscular Hgb 31.5 pg (27.0-32.0); Mean Corpuscular Volume 92.1 fL (81-99); Mean Platelet Vol. 10.1 fl (6.2-12.0); Platelet Count 208 K/mm3 (150-450); RBC Distribution Width CV 12.5 % (11.6-14.6); RBC Distribution Width SD 42.5 fl (35.1-43.9); Red Blood Count 4.03 M/mm3 (4.2-5.4); White Blood Count 5.1 K/mm3 (4.4-11.0)
[2022-07-01 11:07] LABS: ALB/GLOB Ratio 0.9 RATIO (0.9-2.4); AST(SGOT) 22 U/L (15-37); Alanine Aminotransfer ALT/SGPT 20 U/L (13-56); Alkaline Phosphatase 55 U/L (45-117); Anion Gap 6 (5-15); BUN 14 mg/dL (7-18); Calcium,Total 8.6 mg/dL (8.5-10.1); Chloride 101 mmol/L (98-107); Creatinine, Serum 0.67 mg/dL (0.55-1.02); EST Glomerular Filtration Rate 89 mL/min (>60); Est Glom Filt Rate - Afr Amer 108 mL/min (>60); Globulin 3.3 g/dL (2.2-4.2); Glucose 151 mg/dL (74-106); Potassium 4.2 mmol/L (3.5-5.1); Protein, Total 6.3 g/dL (6.4-8.2); Sodium Level 137 mmol/L (136-145)
== END ==
PROVIDERS: PCP Family Medicine; Visit Provider Family Medicine
DX: I10 Essential (primary) hypertension (principal); Z79.899 Other long term (current) drug therapy; Z79.01 Long term (current) use of anticoagulants; E87.1 Hypo-osmolality and hyponatremia; E87.6 Hypokalemia
CPT/HCPCS: 36415; 80053; 85027; 85610

== ENCOUNTER → 2022-07-11 | Outpatient (REF) | payer MEDICARE, SELFPAY ==
[2022-07-11 08:57] LABS: Hematocrit 40.9 % (37-47); Hemoglobin 13.4 g/dL (12.0-15.0); Mean Corp Hgb Conc 32.8 g/dL (32-36); Mean Corpuscular Hgb 30.5 pg (27.0-32.0); Mean Corpuscular Volume 93.2 fL (81-99); Mean Platelet Vol. 10.5 fl (6.2-12.0); Platelet Count 224 K/mm3 (150-450); RBC Distribution Width CV 12.5 % (11.6-14.6); RBC Distribution Width SD 42.7 fl (35.1-43.9); Red Blood Count 4.39 M/mm3 (4.2-5.4); White Blood Count 6.2 K/mm3 (4.4-11.0)
[2022-07-11 09:18] LABS: ALB/GLOB Ratio 0.9 RATIO (0.9-2.4); AST(SGOT) 23 U/L (15-37); Alanine Aminotransfer ALT/SGPT 21 U/L (13-56); Albumin, Serum 3.4 g/dL (3.2-5.0); Alkaline Phosphatase 61 U/L (45-117); Anion Gap 6 (5-15); BUN 11 mg/dL (7-18); BUN/Creat Ratio 13.6 RATIO (10-20); Calcium,Total 8.9 mg/dL (8.5-10.1); Chloride 100 mmol/L (98-107); Creatinine, Serum 0.81 mg/dL (0.55-1.02); EST Glomerular Filtration Rate 72 mL/min (>60); Est Glom Filt Rate - Afr Amer 87 mL/min (>60); Globulin 3.6 g/dL (2.2-4.2); Glucose 120 mg/dL (74-106); Potassium 3.8 mmol/L (3.5-5.1); Sodium Level 136 mmol/L (136-145)
== END ==
PROVIDERS: PCP Family Medicine; Visit Provider Family Medicine
DX: I10 Essential (primary) hypertension (principal); E78.5 Hyperlipidemia, unspecified; Z79.899 Other long term (current) drug therapy
CPT/HCPCS: 36415; 80053; 85027

== ENCOUNTER → 2022-07-28 | Outpatient (REF) | payer MEDICARE, SELFPAY ==
[2022-07-28 08:16] LABS: Hematocrit 42.8 % (37-47); Mean Corp Hgb Conc 32.7 g/dL (32-36); Mean Corpuscular Hgb 30.7 pg (27.0-32.0); Mean Corpuscular Volume 93.9 fL (81-99); Mean Platelet Vol. 10.4 fl (6.2-12.0); Platelet Count 234 K/mm3 (150-450); RBC Distribution Width CV 12.2 % (11.6-14.6); RBC Distribution Width SD 42.4 fl (35.1-43.9); Red Blood Count 4.56 M/mm3 (4.2-5.4); White Blood Count 6.4 K/mm3 (4.4-11.0)
[2022-07-28 08:26] LABS: ALB/GLOB Ratio 0.9 RATIO (0.9-2.4); AST(SGOT) 23 U/L (15-37); Alanine Aminotransfer ALT/SGPT 25 U/L (13-56); Albumin, Serum 3.3 g/dL (3.2-5.0); Alkaline Phosphatase 65 U/L (45-117); Anion Gap 9 (5-15); BUN 10 mg/dL (7-18); BUN/Creat Ratio 14.2 RATIO (10-20); Calcium,Total 8.7 mg/dL (8.5-10.1); Chloride 95 mmol/L (98-107); EST Glomerular Filtration Rate 84 mL/min (>60); Est Glom Filt Rate - Afr Amer 101 mL/min (>60); Globulin 3.7 g/dL (2.2-4.2); Glucose 118 mg/dL (74-106); Potassium 3.5 mmol/L (3.5-5.1); Sodium Level 135 mmol/L (136-145)
[2022-07-28 08:27] LABS: International Normalized Ratio 1.7; Prothrombin Time (Protime)PT. 19.5 SECONDS (11.7-14.9)
== END ==
PROVIDERS: PCP Family Medicine; Visit Provider Family Medicine
DX: I10 Essential (primary) hypertension (principal); I25.10 Atherosclerotic heart disease of native coronary artery without angina pectoris; Z79.01 Long term (current) use of anticoagulants
CPT/HCPCS: 36415; 80053; 85027; 85610

== ENCOUNTER → 2022-08-08 | Outpatient (REF) | payer MEDICARE, SELFPAY ==
[2022-08-08 08:29] LABS: Sodium Level 137 mmol/L (136-145)
== END ==
PROVIDERS: PCP Family Medicine; Visit Provider Family Medicine
DX: E87.1 Hypo-osmolality and hyponatremia (principal); Z79.899 Other long term (current) drug therapy
CPT/HCPCS: 36415; 84295

== ENCOUNTER → 2022-08-29 | Outpatient (REF) | payer MEDICARE, SELFPAY ==
[2022-08-29 09:01] LABS: Hematocrit 40.7 % (37-47); Hemoglobin 13.4 g/dL (12.0-15.0); Mean Corp Hgb Conc 32.9 g/dL (32-36); Mean Corpuscular Hgb 30.6 pg (27.0-32.0); Mean Corpuscular Volume 92.9 fL (81-99); Platelet Count 215 K/mm3 (150-450); RBC Distribution Width CV 12.3 % (11.6-14.6); RBC Distribution Width SD 42.1 fl (35.1-43.9); Red Blood Count 4.38 M/mm3 (4.2-5.4); White Blood Count 6.4 K/mm3 (4.4-11.0)
[2022-08-29 09:10] LABS: Cholesterol 126 mg/dL (200); High Density Lipoprotein 48 mg/dL; Triglycerides 105 mg/dL; Very Low Density Lipoprotein 21 mg/dL (5-40)
[2022-08-29 09:11] LABS: International Normalized Ratio 1.9; Prothrombin Time (Protime)PT. 21.3 SECONDS (11.7-14.9)
== END ==
PROVIDERS: PCP Family Medicine; Visit Provider Family Medicine
DX: I10 Essential (primary) hypertension (principal); E78.5 Hyperlipidemia, unspecified; Z79.01 Long term (current) use of anticoagulants
CPT/HCPCS: 36415; 80061; 85027; 85610

== ENCOUNTER → 2022-09-16 | Outpatient (REF) | payer MEDICARE, SELFPAY ==
[2022-09-16 13:48] LABS: Color, Urine Yellow (Yellow); Glucose, Dipstick Normal (Normal); Ketone-Dipstick Negative (Negative); Leukocyte Esterase-Dipstick 500 /ul (Negative); Nitrite-Dipstick Negative (Negative); Occult Blood-Urine 10 /ul (Negative); Protein-Dipstick 15 mg/dl (Negative); Urine Bilirubin Dipstick Negative (Negative); Urine Clarity Sl. Cloudy (Clear); Urine Urobilinogen Normal (Normal)
== END ==
PROVIDERS: PCP Family Medicine; Visit Provider Family Medicine
DX: R41.82 Altered mental status, unspecified (principal)
CPT/HCPCS: 81002; 87086; 87088

== ENCOUNTER → 2022-09-20 | Outpatient (REF) | payer MEDICARE, SELFPAY ==
[2022-09-20 07:32] LABS: Hematocrit 38.3 % (37-47); Mean Corp Hgb Conc 33.9 g/dL (32-36); Mean Corpuscular Hgb 30.9 pg (27.0-32.0); Mean Platelet Vol. 10.2 fl (6.2-12.0); Platelet Count 229 K/mm3 (150-450); RBC Distribution Width CV 12.1 % (11.6-14.6); RBC Distribution Width SD 40.4 fl (35.1-43.9); Red Blood Count 4.21 M/mm3 (4.2-5.4); White Blood Count 6.7 K/mm3 (4.4-11.0)
[2022-09-20 07:38] LABS: Anion Gap 3 (5-15); BUN 10 mg/dL (7-18); BUN/Creat Ratio 12.7 RATIO (10-20); Calcium,Total 8.8 mg/dL (8.5-10.1); Chloride 96 mmol/L (98-107); Creatinine, Serum 0.79 mg/dL (0.55-1.02); EST Glomerular Filtration Rate 74 mL/min (>60); Est Glom Filt Rate - Afr Amer 89 mL/min (>60); Glucose 94 mg/dL (74-106); Potassium 4.4 mmol/L (3.5-5.1); Sodium Level 132 mmol/L (136-145)
== END ==
PROVIDERS: PCP Family Medicine; Visit Provider Family Medicine
DX: F03.90 Unspecified dementia, unspecified severity, without behavioral disturbance, psychotic disturbance, mood disturbance, and anxiety (principal); Z79.899 Other long term (current) drug therapy
CPT/HCPCS: 36415; 80048; 85027

== ENCOUNTER → 2022-09-28 | Outpatient (REF) | payer MEDICARE, SELFPAY ==
[2022-09-28 07:30] LABS: INR Fingerstick 2.2; Prothrombin Time Fingerstick 24.4 SEC (11.7-14.9)
== END ==
PROVIDERS: PCP Family Medicine; Visit Provider Family Medicine
DX: Z79.01 Long term (current) use of anticoagulants (principal)
CPT/HCPCS: 36416; 85610

== ENCOUNTER → 2022-10-03 | Outpatient (REF) | payer MEDICARE, SELFPAY ==
[2022-10-03 09:36] LABS: Anion Gap 4 (5-15); BUN 12 mg/dL (7-18); BUN/Creat Ratio 17.3 RATIO (10-20); Chloride 103 mmol/L (98-107); Creatinine, Serum 0.69 mg/dL (0.55-1.02); EST Glomerular Filtration Rate 86 mL/min (>60); Est Glom Filt Rate - Afr Amer 104 mL/min (>60); Glucose 121 mg/dL (74-106); Potassium 4.3 mmol/L (3.5-5.1); Sodium Level 136 mmol/L (136-145)
== END ==
PROVIDERS: PCP Family Medicine; Visit Provider Family Medicine
DX: Z79.899 Other long term (current) drug therapy (principal)
CPT/HCPCS: 36415; 80048

== ENCOUNTER → 2022-10-05 | Outpatient (REF) | payer MEDICARE, SELFPAY ==
[2022-10-05 08:41] LABS: INR Fingerstick 1.7
== END ==
PROVIDERS: PCP Family Medicine; Visit Provider Family Medicine
DX: Z79.01 Long term (current) use of anticoagulants (principal)
CPT/HCPCS: 36416; 85610

== ENCOUNTER → 2022-10-19 | Outpatient (REF) | payer MEDICARE, SELFPAY ==
[2022-10-19 09:14] LABS: Sodium Level 140 mmol/L (136-145)
[2022-10-19 09:30] LABS: International Normalized Ratio 2.8
== END ==
PROVIDERS: PCP Family Medicine; Visit Provider Family Medicine
DX: Z79.899 Other long term (current) drug therapy (principal); Z79.01 Long term (current) use of anticoagulants
CPT/HCPCS: 36415; 84295; 85610

== ENCOUNTER → 2022-11-02 | Outpatient (REF) | payer MEDICARE, SELFPAY ==
[2022-11-02 09:10] LABS: Hematocrit 42.4 % (37-47); Hemoglobin 13.6 g/dL (12.0-15.0); Mean Corp Hgb Conc 32.1 g/dL (32-36); Mean Corpuscular Hgb 30.6 pg (27.0-32.0); Mean Corpuscular Volume 95.5 fL (81-99); Mean Platelet Vol. 10.7 fl (6.2-12.0); Platelet Count 226 K/mm3 (150-450); RBC Distribution Width CV 13.1 % (11.6-14.6); RBC Distribution Width SD 46.2 fl (35.1-43.9); Red Blood Count 4.44 M/mm3 (4.2-5.4); White Blood Count 6.2 K/mm3 (4.4-11.0)
[2022-11-02 09:16] LABS: International Normalized Ratio 2.9; Prothrombin Time (Protime)PT. 30.9 SECONDS (11.7-14.9)
[2022-11-02 09:41] LABS: Anion Gap 3 (5-15); BUN 10 mg/dL (7-18); BUN/Creat Ratio 14.5 RATIO (10-20); Calcium,Total 9.2 mg/dL (8.5-10.1); Chloride 108 mmol/L (98-107); Creatinine, Serum 0.69 mg/dL (0.55-1.02); EST Glomerular Filtration Rate 86 mL/min (>60); Est Glom Filt Rate - Afr Amer 104 mL/min (>60); Glucose 120 mg/dL (74-106); Potassium 4.8 mmol/L (3.5-5.1); Sodium Level 141 mmol/L (136-145)
== END ==
PROVIDERS: PCP Family Medicine; Visit Provider Family Medicine
DX: I48.92 Unspecified atrial flutter (principal); E87.6 Hypokalemia; R60.9 Edema, unspecified; I10 Essential (primary) hypertension; Z79.01 Long term (current) use of anticoagulants
CPT/HCPCS: 36415; 80048; 85027; 85610

== ENCOUNTER → 2022-11-16 | Outpatient (REF) | payer MEDICARE, SELFPAY | PROVIDERS: PCP Family Medicine; Visit Provider Family Medicine | DX: I48.92 Unspecified atrial flutter (principal); Z79.01 Long term (current) use of anticoagulants | CPT/HCPCS: 36416; 85610 ==

== ENCOUNTER → 2022-11-30 | Outpatient (REF) | payer MEDICARE, SELFPAY ==
[2022-11-30 10:44] LABS: International Normalized Ratio 3.3
[2022-11-30 11:02] LABS: Cholesterol 127 mg/dL (200); High Density Lipoprotein 49 mg/dL; Sodium Level 139 mmol/L (136-145); Triglycerides 73 mg/dL; Very Low Density Lipoprotein 15 mg/dL (5-40)
== END ==
PROVIDERS: PCP Family Medicine; Visit Provider Family Medicine
DX: E78.5 Hyperlipidemia, unspecified (principal); Z79.899 Other long term (current) drug therapy; Z79.01 Long term (current) use of anticoagulants; E87.1 Hypo-osmolality and hyponatremia
CPT/HCPCS: 36415; 80061; 84295; 85610

== ENCOUNTER → 2023-01-03 | Outpatient (REF) | payer MEDICARE, SELFPAY ==
[2023-01-03 10:27] LABS: Hematocrit 42.7 % (37-47); Hemoglobin 13.5 g/dL (12.0-15.0); Mean Corp Hgb Conc 31.6 g/dL (32-36); Mean Corpuscular Hgb 30.4 pg (27.0-32.0); Mean Corpuscular Volume 96.2 fL (81-99); Mean Platelet Vol. 10.6 fl (6.2-12.0); Platelet Count 214 K/mm3 (150-450); RBC Distribution Width CV 12.7 % (11.6-14.6); Red Blood Count 4.44 M/mm3 (4.2-5.4); White Blood Count 5.7 K/mm3 (4.4-11.0)
[2023-01-03 10:43] LABS: Sodium Level 141 mmol/L (136-145)
== END ==
PROVIDERS: PCP Family Medicine; Visit Provider Family Medicine
DX: I48.91 Unspecified atrial fibrillation (principal); I48.92 Unspecified atrial flutter; I10 Essential (primary) hypertension; E87.6 Hypokalemia; Z79.01 Long term (current) use of anticoagulants; Z79.899 Other long term (current) drug therapy
CPT/HCPCS: 36415; 84295; 85027; 85610

== ENCOUNTER 2023-02-02 15:10 | Emergency (ER) | payer MEDICARE, SELFPAY ==
[2023-02-02 15:12] VITALS: BP 171/78; PULSE 64; RESP 18; TEMP 36.6; O2SAT 97
--- NOTE | 2023-02-02 17:49 | EKG12_ITS ---
Test Reason : GENERAL Blood Pressure : / mmHG Vent. Rate : 064 BPM Atrial Rate : 064 BPM P-R Int : 172 ms QRS Dur : 146 ms QT Int : 480 ms P-R-T Axes : 072 002 -04 degrees QTc Int : 495 ms Normal sinus rhythm Right bundle branch block Abnormal ECG Confirmed by CALLI HOLLAND, LUCILA ([id number]), publication editor RAIMUNDO GRANT ([id number]) on 02/03/2023 12:19:15 PM Referred By: Confirmed By:LUICLA MCCURDY MD
--- NOTE | 2023-02-02 17:50 | EDS_ITS ---
HPI History of Present Illness Chief Complaint: Nausea/Vomiting Informant: patient and family Narrative Narrative: Patient presents with nausea and vomiting. History is from patient and also from her daughter who is a nurse. Patient was started on Aricept last Monday. After starting this she vomited once. Since then she has been nauseated. She has been drinking a little bit of hubert idania and occasional bites of food only. The Aricept was discontinued on Monday. But her symptoms have continued. She has only had 2 bowel movements in that time but she has chronic constipation and that would not be abnormal especially when she is not eating and drinking much. The reason she came in today is because she vomited once again today. This was her second time. She denied abdominal pain. But her daughter had stated the patient did tell her that her abdomen was somewhat uncomfortable. She has not had fevers. There were evidently 1 staff member and 1 patient at her facility that have COVID but this patient has been tested twice and has been negative including being negative today. She is not coughing. She also has a history of hyponatremia and they are concerned that that might be causing this. 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 Memory loss Nonrheumatic aortic (valve) stenosis Parkinsonian syndrome Paroxysmal atrial fibrillation Poor balance Postoperative atrial fibrillation (04/04/13) Recurrent deep vein thrombosis (DVT) Restrictive airway disease Rheumatoid arthritis Home Medications atorvastatin 40 mg tablet 40 mg PO QHS cholesterol 10/01/16 [History Last Taken 06/15/22 20:45] venlafaxine 75 mg tablet 75 mg PO QHS DEPRESSION 02/14/19 [History Last Taken 06/15/22 20:45] albuterol sulfate 90 mcg/actuation aerosol inhaler (Ventolin HFA) 2 puff inhalation Q6H PRN Wheezing 09/23/21 [History Last Taken Unknown] losartan 100 mg tablet 100 mg PO DAILY BP 09/23/21 [History Last Taken 06/16/22 09:15] trazodone 100 mg tablet 100 mg PO QHS Sleep 09/23/21 [History Last Taken 06/15/22 20:45] hydroxychloroquine 200 mg tablet 200 mg PO BID RA 11/02/21 [History Last Taken 06/16/22 09:15] venlafaxine 150 mg capsule,extended release 24 hr 150 mg PO BREAKFAST DEPRESSION 11/02/21 [History Last Taken 06/16/22 09:15] alprazolam 0.25 mg tablet 0.25 mg PO QHS PRN PRN Anxiety/Restlessness/Sleep #0 tabs 11/10/21 [Rx Last Taken 06/15/22 11:30] potassium chloride 20 mEq tablet,extended release(part/cryst) (Klor-Con M) 20 meq PO DAILYCM 30 days #30 tabs 11/10/21 [Rx Last Taken 06/16/22 09:15] acetaminophen 325 mg tablet 650 mg PO Q6H PRN Pain 06/16/22 [History Last Taken 06/08/22 20:00] alprazolam 0.5 mg tablet 0.5 mg PO QHS DEPRESSION 06/16/22 [History Last Taken 06/15/22 20:45] metoprolol tartrate 100 mg tablet 100 mg PO BID HTN 06/16/22 [History Last Taken 06/16/22 09:15] aspirin 81 mg capsule 81 mg PO DAILY 30 days #30 caps 06/17/22 [Rx Last Taken Unknown] carbidopa 10 mg-levodopa 100 mg disintegrating tablet 1 tab PO TID 01/09/23 [History Last Taken Unknown] metoprolol tartrate 100 mg tablet 100 mg PO BID 01/09/23 [History Last Taken Unknown] warfarin 5 mg tablet 5 mg PO DINNER AFIB 01/09/23 [History Last Taken Unknown] warfarin 6 mg tablet 6 mg PO .3XW 01/09/23 [History Last Taken Unknown] donepezil 10 mg tablet 10 mg PO QHS #30 tabs 01/29/23 [Rx Last Taken Unknown] donepezil 5 mg tablet 5 mg PO QHS #30 tabs 01/29/23 [Rx Last Taken Unknown] ondansetron 4 mg disintegrating tablet 4 mg PO Q8H PRN PRN Nausea #10 tabs 02/02/23 [Rx Last Taken Unknown] Allergy/AdvReac Type Severity Reaction Status Date / Time Penicillins Allergy Anaphylaxis Verified 02/02/23 15:12 acetaminophen [From Vicodin] AdvReac Itching Verified 02/02/23 15:12 codeine AdvReac Nausea Verified 02/02/23 15:12 ezetimibe [From Zetia] AdvReac Itching Verified 02/02/23 15:12 hydrocodone bitartrate AdvReac Itching Verified 02/02/23 15:12 [From Vicodin] [id number] Reductase AdvReac Other Verified 02/02/23 15:12 Inhibitor [Lxuvaip-Asq-Idh Reductase Inhibitor] Surgical History 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) History of appendectomy History of cardioversion (10/01/16) History of coronary artery stent placement (12/2003) History of left heart catheterization (10/13/15) Social History household members: none Smoking Status: Former smoker how long ago did patient quit smokin, 1ppd second hand exposure: Yes alcohol intake: never substance use type: does not use ROS ROS ED ROS Narrative A complete review of systems was performed and is negative except as documented in the history of present illness. Some specific details below. Constitutional: No recent fevers or chills. She does have some generalized malaise because she has not been eating or drinking for a week. EYE: No visual complaints or pain. ENT: No difficulty swallowing. No swelling. No pain. Not having GERD CV: No chest pain or palpitations. Respiratory: No dyspnea. No hemoptysis. No difficulty taking breaths. Not short of breath GI: Please see history of present illness. : No frequency dysuria or hematuria. She does need to urinate now. Musculoskeletal: No recent trauma. No pains. Skin: No rash. Nondiaphoretic. Neuro: No weakness or numbness. Endocrine: No polyuria or polydipsia. EXAM Physical Exam Narrative Exam Narrative: CONSTITUTIONAL: Patient is nontoxic in appearance. The patient looks comfortable. She is very pleasant and cooperative. HEENT: No notable trauma. Mucous membranes are mildly dry. No indication of pain with swallowing. EYES: No conjunctival injection. No proptosis. CARDIOVASCULAR: Regular rate. Regular rhythm. No notable murmur. No JVD. RESPIRATORY: No respiratory distress. Breathing is unlabored. No wheezes. No rhonchi. No rales. No pain with a deep breath. GASTROINTESTINAL: Not distended. Bowel sounds are normal to slightly quiet. No tenderness. No guarding. No rebound. No palpable mass. No bruit. Overall her exam is relatively benign at this time. GENITOURINARY: No tenderness over the bladder. Although it does not hurt pressing over the bladder she states she does have to urinate. No CVA tenderness. MUSCULOSKELETAL: Atraumatic. No significant peripheral edema. No cord. No tenderness along the deep venous system. No asymmetry. NEUROLOGICAL: Patient is alert and appropriate. No focal deficit noted. SKIN: No noted rashes. No diaphoresis. PSYCHIATRIC: Patient is calm. Mood is appropriate. Const Vital Signs: 02/02/23 15:12 02/02/23 18:43 Temperature 97.9 F Temperature Source Temporal Pulse Rate 64 66 Respiratory Rate 18 Blood Pressure 171/78 H 186/92 H Blood Pressure Mean 109 123 Pulse Ox 97 Oxygen Delivery Method Room Air MDM MDM MDM Narrative Medical decision making narrative: Patient CBC shows no marked abnormalities. Patient's INR is therapeutic at 3.5. Just a little on the high side. Patient's electrolytes show no marked abnormalities. Her sodium was good at 137. Per her daughter, ever since she has been off hydrochlorothiazide her sodium has really stayed well. But they were concerned about this. Patient's liver function test are overall normal. Patient paces normal Patient's urinalysis is normal. We rechecked the patient. She received fluids and Zofran. She does feel better even her daughter states she had has not looked this good in a week. Her abdomen completely benign. We discussed considering CT but she has no tenderness. She has moved her bowels. She is not nauseated. She has no fevers. No white count. They are comfortable with her going back and managing this. Lab Data Attestation: I reviewed the patient's lab results. Labs: Laboratory Results - last 24 hr 02/02/23 02/02/23 18:05 18:40 WBC 7.1 RBC 4.68 Hgb 14.3 Hct 44.0 MCV 94.0 MCH 30.6 MCHC 32.5 RDW Std Deviation 42.9 RDW Coeff of Lindy 12.5 Plt Count 216 MPV 10.3 Immature Gran % (Auto) 0.300 Neut % (Auto) 65.1 Lymph % (Auto) 24.4 King % (Auto) 7.9 Eos % (Auto) 1.7 Baso % (Auto) 0.6 Absolute Neuts (auto) 4.6 Absolute Lymphs (auto) 1.73 Nucleated RBC % 0 PT 36.0 H INR 3.5 Sodium 137 Potassium 4.5 Chloride 104 Carbon Dioxide 30.0 Anion Gap 3 L BUN 11 Creatinine 0.68 Est GFR (MDRD) Af Amer 106 Est GFR (MDRD) Non-Af 87 BUN/Creatinine Ratio 16.2 Glucose 133 H Calcium 8.9 Total Bilirubin 0.30 AST 18 ALT 15 Alkaline Phosphatase 73 Total Protein 6.9 Albumin 3.2 Globulin 3.7 Albumin/Globulin Ratio 0.9 Lipase 15 Urine Color Yellow Urine Clarity Clear Urine pH 6.5 Ur Specific [place] 1.015 Urine Protein Negative Urine Glucose (UA) Normal Urine Ketones Negative Urine Occult Blood 25 H Urine Nitrite Negative Urine Bilirubin Negative Urine Urobilinogen Normal Ur Leukocyte Esterase 25 H Urine RBC 0-5 SEEN Urine WBC 0-5 SEEN Ur Squamous Epith Cells 0 SEEN Urine Bacteria 0 SEEN Urine Mucus 1+ Management Discussion w/another healthcare provider: Other (Discussed with her daughter who is also a nurse.) Discharge Plan Triage Chief Complaint: Nausea/Vomiting ED Provider: Matt Coy Dx/Rx/DC Orders Clinical Impression: Nausea & vomiting Instructions: ED Vomiting (Adult) Prescriptions: New ondansetron [ondansetron] 4 mg tablet,disintegrating 4 mg PO Q8H PRN PRN (Reason: Nausea) Qty: 10 0RF No Action trazodone 100 mg tablet 100 mg PO QHS Patient Comments: TAKE 1 TABLET BY MOUTH AT BEDTIME albuterol sulfate [Ventolin HFA] 90 mcg/actuation HFA aerosol inhaler 2 puff inhalation Q6H PRN (Reason: Wheezing) losartan 100 mg tablet 100 mg PO DAILY Patient Comments: DAUGHTER IS UNSURE IF PT IS STILL TAKING. SHE WILL VERIFY AND CALL WITH UPDATE. warfarin 6 mg tablet 6 mg PO .3XW Rx Instructions: take on tab PO on time a day three times weekly on , and Sun in the evening carbidopa-levodopa 10-100 mg tablet,disintegrating 1 tab PO TID metoprolol tartrate 100 mg tablet 100 mg PO BID donepezil 5 mg tablet 5 mg PO QHS Qty: 30 0RF donepezil 10 mg tablet 10 mg PO QHS Qty: 30 5RF Rx Instructions: Begin after completing one month of treatment of donepezil 5mg nightly atorvastatin 40 MG tablet 40 mg PO QHS Patient Comments: CHOLESTEROL venlafaxine 75 MG tablet 75 mg PO QHS venlafaxine 150 mg Capsule,Extended Release 24hr 150 mg PO BREAKFAST hydroxychloroquine 200 mg tablet 200 mg PO BID Patient Comments: TAKE 1 TABLET BY MOUTH TWICE DAILY alprazolam 0.25 mg Tablet 0.25 mg PO QHS PRN PRN (Reason: Anxiety/Restlessness/Sleep) Qty: 0 0RF potassium chloride [Klor-Con M20] 20 mEq Tablet,Er Particles/Crystals 20 meq PO DAILYCM 30 Days Qty: 30 0RF acetaminophen 325 mg Tablet 650 mg PO Q6H PRN (Reason: Pain) metoprolol tartrate 100 mg tablet 100 mg PO BID alprazolam 0.5 mg tablet 0.5 mg PO QHS aspirin 81 mg capsule 81 mg PO DAILY 30 Days Qty: 30 0RF warfarin 5 mg tablet 5 mg PO DINNER Rx Instructions: 1 tb PO one time a day four times weekly on Mon, Wed, Fri, and Sat Evening. Primary Care Provider: Joao Simon Referrals: Joao Simon MD [Primary Care Provider] - 3-5 Days if not improving Disposition Disposition[facility] Facility
[2023-02-02] MEDS: Ondansetron 4 MG/2 ML Vial IM (18:03)
[2023-02-02 18:18] LABS: Absolute Lymphocyte Count 1.73 X10^3/uL (0.83-4.51); Absolute Neutrophil Count 4.6 X10^3/uL (2.0-7.7); Basophil# 0.04 X10^3/uL; Basophil% 0.6 % (0-1); Eosinophil# 0.12 X10^3/uL; Eosinophils% 1.7 % (0-5); Hemoglobin 14.3 g/dL (12.0-15.0); Lymphocyte # 1.73 X10^3/ul (0.83-4.51); Lymphocyte % 24.4 % (19-41); Mean Corp Hgb Conc 32.5 g/dL (32-36); Mean Corpuscular Hgb 30.6 pg (27.0-32.0); Mean Platelet Vol. 10.3 fl (6.2-12.0); Monocyte# 0.56 X10^3/uL; Monocyte% 7.9 % (0-10); NRBC Flagged by Analyzer 0 % (0-5); Neutrophil # 4.62 X10^3/uL (2.7-7.7); Neutrophil % 65.1 % (47-70); Platelet Count 216 K/mm3 (150-450); RBC Distribution Width CV 12.5 % (11.6-14.6); RBC Distribution Width SD 42.9 fl (35.1-43.9); Red Blood Count 4.68 M/mm3 (4.2-5.4); White Blood Count 7.1 K/mm3 (4.4-11.0)
[2023-02-02 18:26] LABS: International Normalized Ratio 3.5
[2023-02-02 18:31] LABS: ALB/GLOB Ratio 0.9 RATIO (0.9-2.4); AST(SGOT) 18 U/L (15-37); Alanine Aminotransfer ALT/SGPT 15 U/L (13-56); Albumin, Serum 3.2 g/dL (3.2-5.0); Alkaline Phosphatase 73 U/L (45-117); Anion Gap 3 (5-15); BUN 11 mg/dL (7-18); BUN/Creat Ratio 16.2 RATIO (10-20); Calcium,Total 8.9 mg/dL (8.5-10.1); Chloride 104 mmol/L (98-107); Creatinine, Serum 0.68 mg/dL (0.55-1.02); EST Glomerular Filtration Rate 87 mL/min (>60); Est Glom Filt Rate - Afr Amer 106 mL/min (>60); Globulin 3.7 g/dL (2.2-4.2); Glucose 133 mg/dL (74-106); Lipase 15 U/L (13-75); Potassium 4.5 mmol/L (3.5-5.1); Protein, Total 6.9 g/dL (6.4-8.2); Sodium Level 137 mmol/L (136-145)
[2023-02-02 18:43] VITALS: BP 186/92; PULSE 66
[2023-02-02] MEDS: 0.9% Normal Saline (500mL Bag) 500 ML 1000 ML IV (18:44)
[2023-02-02 18:45] LABS: Bacteria 0 SEEN /hpf (None Seen); Squamous Epithelial Cells - UA 0 SEEN /hpf (5-10)
[2023-02-02 18:46] LABS: Color, Urine Yellow (Yellow); Glucose, Dipstick Normal (Normal); Ketone-Dipstick Negative (Negative); Leukocyte Esterase-Dipstick 25 /ul (Negative); Nitrite-Dipstick Negative (Negative); Occult Blood-Urine 25 /ul (Negative); Protein-Dipstick Negative (Negative); Specific Gravity, Urine 1.015 (1.002-1.030); Urine Bilirubin Dipstick Negative (Negative); Urine Clarity Clear (Clear); Urine Urobilinogen Normal (Normal); Urine pH 6.5 (5.0 - 8.0)
[2023-02-02 18:51] LABS: Mucous, Urine 1+ /hpf (<or=2+); White Blood Cells 0-5 SEEN /hpf (0-5)
[2023-02-02 18:52] LABS: Red Blood Cells-Urine 0-5 SEEN /hpf (0-5)
--- NOTE | 2023-02-02 20:43 | ED.RN ---
called Freddy to inform of pts return
== END 2023-02-02 20:44 | disposition skilled nursing facility (03) ==
PROVIDERS: Emergency Provider Emergency Medicine; PCP Family Medicine; Visit Provider Emergency Medicine
DX: R11.2 Nausea with vomiting, unspecified (principal); G20 Parkinson's disease; M06.9 Rheumatoid arthritis, unspecified; I48.0 Paroxysmal atrial fibrillation; I10 Essential (primary) hypertension; I25.10 Atherosclerotic heart disease of native coronary artery without angina pectoris; Z87.891 Personal history of nicotine dependence; I45.10 Unspecified right bundle-branch block; Z86.711 Personal history of pulmonary embolism; Z86.718 Personal history of other venous thrombosis and embolism; I25.2 Old myocardial infarction; Z79.899 Other long term (current) drug therapy; Z79.01 Long term (current) use of anticoagulants
CPT/HCPCS: 80053; 81001; 83690; 85025; 85610; 93005; 96372; 99285; J7030; J2405

== ENCOUNTER → 2023-02-07 | Outpatient (REF) | payer MEDICARE, SELFPAY ==
[2023-02-07 09:01] LABS: International Normalized Ratio 4.3; Prothrombin Time (Protime)PT. 41.7 SECONDS (11.7-14.9)
[2023-02-07 09:24] LABS: Vitamin B12 243 pg/mL (211-911)
== END ==
PROVIDERS: PCP Family Medicine; Visit Provider Family Medicine
DX: R53.83 Other fatigue (principal); Z79.899 Other long term (current) drug therapy; Z79.01 Long term (current) use of anticoagulants
CPT/HCPCS: 36415; 82607; 85610

== ENCOUNTER → 2023-02-14 | Outpatient (REF) | payer MEDICARE, SELFPAY ==
[2023-02-14 07:57] LABS: INR Fingerstick 1.9; Prothrombin Time Fingerstick 21.2 SEC (11.7-14.9)
== END ==
PROVIDERS: PCP Family Medicine; Visit Provider Family Medicine
DX: Z79.01 Long term (current) use of anticoagulants (principal)
CPT/HCPCS: 36416; 85610

== ENCOUNTER → 2023-02-21 | Outpatient (REF) | payer MEDICARE, SELFPAY ==
[2023-02-21 08:07] LABS: INR Fingerstick 3.1; Prothrombin Time Fingerstick 32.7 SEC (11.7-14.9)
== END ==
PROVIDERS: PCP Family Medicine; Referring Provider Family Medicine; Visit Provider Family Medicine
DX: Z79.01 Long term (current) use of anticoagulants (principal)
CPT/HCPCS: 36416; 85610

== ENCOUNTER → 2023-03-06 | Outpatient (REF) | payer MEDICARE, SELFPAY ==
[2023-03-06 10:19] LABS: Thyroid Stim Hormone (TSH) 1.71 uIU/mL (0.358-3.74)
[2023-03-06 11:16] LABS: Hematocrit 38.3 % (37-47); Hemoglobin 12.1 g/dL (12.0-15.0); Mean Corp Hgb Conc 31.6 g/dL (32-36); Mean Corpuscular Hgb 30.5 pg (27.0-32.0); Mean Corpuscular Volume 96.5 fL (81-99); Mean Platelet Vol. 10.9 fl (6.2-12.0); Platelet Count 195 K/mm3 (150-450); RBC Distribution Width CV 12.7 % (11.6-14.6); RBC Distribution Width SD 44.8 fl (35.1-43.9); Red Blood Count 3.97 M/mm3 (4.2-5.4); White Blood Count 5.8 K/mm3 (4.4-11.0)
[2023-03-06 11:57] LABS: Cholesterol 113 mg/dL (200); High Density Lipoprotein 44 mg/dL; Triglycerides 82 mg/dL; Very Low Density Lipoprotein 16 mg/dL (5-40)
== END ==
PROVIDERS: PCP Family Medicine; Visit Provider Family Medicine
DX: I10 Essential (primary) hypertension (principal); E78.5 Hyperlipidemia, unspecified; Z79.899 Other long term (current) drug therapy
CPT/HCPCS: 36415; 80061; 84443; 85027

== ENCOUNTER → 2023-04-06 | Outpatient (REF) | payer MEDICARE, SELFPAY ==
[2023-04-06 10:33] LABS: INR Fingerstick 2.8; Prothrombin Time Fingerstick 29.8 SEC (11.7-14.9)
== END ==
PROVIDERS: PCP Family Medicine; Visit Provider Family Medicine
DX: Z79.01 Long term (current) use of anticoagulants (principal)
CPT/HCPCS: 36416; 85610

== ENCOUNTER → 2023-05-08 | Outpatient (REF) | payer MEDICARE, SELFPAY ==
[2023-05-08 08:05] LABS: INR Fingerstick 2.4
== END ==
PROVIDERS: PCP Family Medicine; Visit Provider Family Medicine
DX: Z79.01 Long term (current) use of anticoagulants (principal)
CPT/HCPCS: 36416; 85610

== ENCOUNTER → 2023-05-23 | Outpatient (REF) | payer MEDICARE, SELFPAY ==
[2023-05-23 07:43] LABS: INR Fingerstick 3.4; Prothrombin Time Fingerstick 36.3 SEC (11.7-14.9)
== END ==
PROVIDERS: PCP Family Medicine; Visit Provider Family Medicine
DX: I25.10 Atherosclerotic heart disease of native coronary artery without angina pectoris (principal)
CPT/HCPCS: 36416; 85610

== ENCOUNTER → 2023-05-31 | Outpatient (REF) | payer MEDICARE, SELFPAY ==
--- OUTSIDE RECORDS SUMMARY | 2023-05-31 03:58 | XMS RPT_ITS | CCD ---
Author Name Unknown Address [address] [place] [address] Organization [facility] Care Team Providers Care Cutting And Boning Supervisor Name Role Phone VENKATESH PALOMINO Unavailable Unavailable VENKATESH PALOMINO Unavailable Unavailable MICHAEL, DAESUNG Unavailable Unavailable MICHAEL, DAESUNG Unavailable Unavailable ANDRE VALDES E Unavailable Unavailable ANDRE VALDES E Unavailable Unavailable FRANKLIN, ZITA Unavailable Unavailable FRANKLIN, ZITA Unavailable Unavailable FRANKLIN, ZITA Unavailable Unavailable FRANKLIN, ZITA Unavailable Unavailable FRANKLIN, ZITA Unavailable Unavailable FRANKLIN, ZITA Unavailable Unavailable PRASHANTH ROSE (EPIC WILLOW SPECIALIST) Unavailable Unavailable Allergies Allergy Classification Reported Allergen(s) Allergy Type Date of Onset Reaction(s) Facility (1 source) acetaminophen / HYDROcodone; Translations: [HYDROCODONE-ACET AMINOPHEN] Drug Allergy [address] [facility] Repository (1 source) codeine; Translations: [CODEINE] Drug Allergy 5 [facility] Repository (1 source) ezetimibe; Translations: [EZETIMIBE] Drug Allergy [address] [facility] Repository (1 source) Hmg-Coa Reductase Inhibitors (Statins); Translations: [[id number] REDUCTASE INHIBITORS] Propensity to adverse reactions to drug (disorder) [address] [facility] Repository (1 source) lovastatin; Translations: [LOVASTATIN] Drug Allergy [address] [facility] Repository (1 source) Penicillins; Translations: [PENICILLINS] Propensity to adverse reactions to drug (disorder) 5 [facility] Repository Problems Active Problems Problem Classification Problem Date Documented Da te Episodic/Chronic Diabetes mellitus with complications (1 source) Type 2 diabetes mellitus with diabetic neuropathy, unspecified; Translations: [Type 2 diabetes mellitus with diabetic neuropathy, unspecified] Onset: 03-06-2017 Essential hypertension (1 source) Essential (primary) hypertension; Translations: [Essential (primary) hypertension] Onset: 03-06-2017 Chronic Nutritional deficiencies (1 source) Vitamin D deficiency, unspecified; Translations: [Vitamin D deficiency, unspecified] Onset: 03-06-2017 Chronic Unclassified (1 source) Unknown / UNK(Unknown) Onset: 01-04-2017 Past or Other Problems Problem Classification Problem Date Documented Da te Episodic/Chronic Other aftercare (1 source) Other retirement (current) drug therapy; Translations: [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] Onset: 03-06-2017 Episodic Results Test Name Value Interpretation Reference Range Facil ity Encounters Encounter Date Encounter Type Care Provider Facility Start: 06-14-2017 End: 06-14-2017 Ambulatory VENKATESH PALOMINO [facility] Start: 04-03-2017 End: 04-03-2017 Ambulatory PRASHANTH (SCARLETT) ROSE [facility] Start: 03-21-2017 End: 03-22-2017 Ambulatory XENIA FRANKLIN [facility] Start: 03-07-2017 End: 03-09-2017 Ambulatory XENIA FRANKLIN [facility] Start: 03-06-2017 End: 03-07-2017 Ambulatory XENIA FRANKLIN [facility] Start: 02-15-2017 Ambulatory XENIA FRANKLIN [facility] Start: 01-04-2017 End: 01-04-2017 Ambulatory ANDRE VALDES [facility] Start: 11-25-2016 End: 11-25-2016 Ambulatory VENKATESH PALOMINO [facility] Summary Purpose Family History No Family History Records FoundNo Family History Records FoundNo Family History Records Found Advance Directives No Advanced Directives Records FoundNo Advanced Directives Records FoundNo Advanced Directives Records Found Additional Source Comments INFORMATION SOURCE (unrecogn ized section and content) DATE CREATED AUTHOR AUTHOR'S ORGANIZ ATION 11/17/2017 [facility] DATE CREATED AUTHOR AUTHOR'S ORGANIZ ATION 04/23/2019 [facility] ([place]) FOR RECORDS PERTAINING TO PATIENTS WHO ARE OR HAVE BEEN ENROLLED IN A CHEMICAL DEPENDENCY/SUBSTANCEABUSE PROGRAM, SOME INFORMATION MAY BE OMITTED. This clinical summary was aggregated from multiple sources. Caution should be exercised in using it in the provision of clinical care. This summary normalizes information from multiple sources, and as a consequence, information in this document may materially change the coding, format and clinical context of patient data. In addition, data may be omitted in some cases. CLINICAL DECISIONS SHOULD BE BASED ON THE PRIMARY CLINICAL RECORDS. [facility] [employer] [facility]. provides no warranty or guarantee of the accuracy or completeness of information in this document.
[2023-05-31 09:55] LABS: INR Fingerstick 2.5; Prothrombin Time Fingerstick 26.7 SEC (11.7-14.9)
== END ==
PROVIDERS: PCP Family Medicine; Referring Provider Family Medicine; Visit Provider Family Medicine
DX: Z79.01 Long term (current) use of anticoagulants (principal)
CPT/HCPCS: 36416; 85610

== ENCOUNTER → 2023-06-14 | Outpatient (REF) | payer MEDICARE, SELFPAY ==
--- OUTSIDE RECORDS SUMMARY | 2023-06-14 04:23 | XMS RPT_ITS | CCD ---
Author Name Unknown Address [address] [place] [address] Organization [facility] Care Team Providers Care Field Assessor Name Role Phone VENKATESH PALOMINO Unavailable Unavailable VENKATESH PALOMINO Unavailable Unavailable MICHAEL, DAESUNG Unavailable Unavailable MICHAEL, DAESUNG Unavailable Unavailable ANDRE VALDES E Unavailable Unavailable ANDRE VALDES E Unavailable Unavailable FRANKLIN, ZITA Unavailable Unavailable FRANKLIN, ZITA Unavailable Unavailable FRANKLIN, ZITA Unavailable Unavailable FRANKLIN, ZITA Unavailable Unavailable FRANKLIN, ZITA Unavailable Unavailable FRANKLIN, ZITA Unavailable Unavailable PRASHANTH ROSE (SCALE BALANCER) Unavailable Unavailable Allergies Allergy Classification Reported Allergen(s) Allergy Type Date of Onset Reaction(s) Facility (1 source) acetaminophen / HYDROcodone; Translations: [HYDROCODONE-ACET AMINOPHEN] Drug Allergy 2 [facility] Repository (1 source) codeine; Translations: [CODEINE] Drug Allergy 5 [facility] Repository (1 source) ezetimibe; Translations: [EZETIMIBE] Drug Allergy 7 [facility] Repository (1 source) Hmg-Coa Reductase Inhibitors (Statins); Translations: [[id number] REDUCTASE INHIBITORS] Propensity to adverse reactions to drug (disorder) 6 [facility] Repository (1 source) lovastatin; Translations: [LOVASTATIN] Drug Allergy 5 [facility] Repository (1 source) Penicillins; Translations: [PENICILLINS] Propensity to adverse reactions to drug (disorder) 5 [facility] Repository Problems Active Problems Problem Classification [...] te Episodic/Chronic Other aftercare (1 source) Other intermediate (current) drug therapy; Translations: [Other intermediate (current) drug therapy] Onset: 03-06-2017 Episodic Results Test Name Value Interpretation Reference Range Facil ity Encounters Encounter Date Encounter Type Care Provider Facility Start: 06-14-2017 End: 06-14-2017 Ambulatory VENKATESH PALOMINO [facility] Start: 04-03-2017 End: 04-03-2017 Ambulatory PRASHANTH (SCARLETT) ROSE [facility] Start: 03-21-2017 End: 03-22-2017 Ambulatory XENIA FRANKLIN [facility] Start: 03-07-2017 End: 03-09-2017 Ambulatory XENIA FRANLKIN [facility] Start: 03-06-2017 End: 03-07-2017 Ambulatory XENIA FRANKLIN [facility] Start: 02-15-2017 Ambulatory XENIA FRANKLIN [facility] Start: 01-04-2017 End: 01-04-2017 Ambulatory ANDRE VALDES [facility] Start: 11-25-2016 End: 11-25-2016 Ambulatory VENKATESH PALOMINO [facility] Summary Purpose Family History No Family History Records FoundNo Family History Records FoundNo Family History Records Found Advance Directives No Advanced Directives Records FoundNo Advanced Directives Records FoundNo Advanced Directives Records Found Additional Source Comments INFORMATION SOURCE (unrecogn ized section and content) DATE CREATED AUTHOR AUTHOR'S ORGANIZ ATION 11/17/2017 [facility] DATE CREATED AUTHOR AUTHOR'S ORGANIZ ATION 04/23/2019 [facility] ([place]) FOR RECORDS PERTAINING TO [...] BE BASED ON THE PRIMARY CLINICAL RECORDS. [facility] [employer] [facility]. provides no warranty or guarantee of the accuracy or completeness of information in this document.
[2023-06-14 08:22] LABS: INR Fingerstick 1.8; Prothrombin Time Fingerstick 19.7 SEC (11.7-14.9)
== END ==
PROVIDERS: PCP Family Medicine; Visit Provider Family Medicine
DX: Z79.01 Long term (current) use of anticoagulants (principal)
CPT/HCPCS: 36416; 85610

== ENCOUNTER → 2023-06-28 | Outpatient (REF) | payer MEDICARE, SELFPAY ==
--- OUTSIDE RECORDS SUMMARY | 2023-06-28 03:54 | XMS RPT_ITS | CCD ---
Author Name Unknown Address [address] [place] [address] Organization [facility] Care Team Providers Care Modeling Manager Name Role Phone VENKATESH PALOMINO Unavailable Unavailable VENKATESH PALOMINO Unavailable Unavailable MICHAEL, DAESUNG Unavailable Unavailable MICHAEL, DAESUNG Unavailable Unavailable ANDRE VALDES E Unavailable Unavailable ANDRE VALDES Unavailable Unavailable FRANKLIN, ZITA Unavailable Unavailable FRANKLIN, ZITA Unavailable Unavailable FRANKLIN, ZITA Unavailable Unavailable FRANKLIN, ZITA Unavailable Unavailable FRANKLIN, ZITA Unavailable Unavailable FRANKLIN, ZITA Unavailable Unavailable PRASHANTH ROSE (FLOOR SURFACER) Unavailable Unavailable Allergies Allergy Classification Reported Allergen(s) Allergy Type Date of Onset Reaction(s) Facility (1 source) acetaminophen / HYDROcodone; Translations: [HYDROCODONE-ACET AMINOPHEN] Drug Allergy 2 [facility] Repository (1 source) codeine; Translations: [CODEINE] Drug Allergy 5 [facility] Repository (1 source) ezetimibe; Translations: [EZETIMIBE] Drug Allergy 7 [facility] Repository (1 source) Hmg-Coa Reductase Inhibitors (Statins); Translations: [[id number] REDUCTASE INHIBITORS] Propensity to adverse reactions to drug (disorder) 6 [facility] Repository (1 source) lovastatin; Translations: [LOVASTATIN] Drug Allergy 5 [facility] Repository (1 source) Penicillins; Translations: [PENICILLINS] Propensity to adverse reactions to drug (disorder) 5 [facility] Repository Problems Active Problems Problem Classification Problem [...] te Episodic/Chronic Other aftercare (1 source) Other longterm (current) drug therapy; Translations: [Other longterm (current) drug therapy] Onset: 03-06-2017 Episodic Results Test Name Value Interpretation Reference Range Facil ity Encounters Encounter Date Encounter Type Care Provider Facility Start: 06-14-2017 End: 06-14-2017 Ambulatory VENKATESH PALOMINO [facility] Start: 04-03-2017 End: 04-03-2017 Ambulatory PRASHANTH (SCARLETT) ROSE [facility] Start: 03-21-2017 End: 03-22-2017 Ambulatory XENIA FRANKLIN [facility] Start: 03-07-2017 End: 03-09-2017 Ambulatory XENIA FRANKLIN [facility] Start: 03-06-2017 End: 03-07-2017 Ambulatory XENIA FRANKLIN [facility] Start: 02-15-2017 Ambulatory XENIA FRANKLIN [facility] Start: 01-04-2017 End: 01-04-2017 Ambulatory ANDRE VALDES [facility] Start: 11-25-2016 End: 11-25-2016 Ambulatory VENKATESH PALOMINO [facility] Summary Purpose Family History No Family History Records FoundNo Family History Records FoundNo Family History Records Found Advance Directives No Advanced Directives Records FoundNo Advanced Directives Records FoundNo Advanced Directives Records Found Additional Source Comments INFORMATION SOURCE (unrecogn ized section and content) DATE CREATED AUTHOR AUTHOR'S ORGANIZ ATION 11/17/2017 [facility] DATE CREATED AUTHOR AUTHOR'S ORGANIZ ATION 04/23/2019 [facility] ([place]) FOR RECORDS PERTAINING [...] BE BASED ON THE PRIMARY CLINICAL RECORDS. [facility] [employer] [facility]. provides no warranty or guarantee of the accuracy or completeness of information in this document.
[2023-06-28 07:59] LABS: INR Fingerstick 2.6; Prothrombin Time Fingerstick 27.9 SEC (11.7-14.9)
== END ==
PROVIDERS: PCP Family Medicine; Referring Provider Family Medicine; Visit Provider Family Medicine
DX: Z79.01 Long term (current) use of anticoagulants (principal)
CPT/HCPCS: 36416; 85610

== ENCOUNTER → 2023-07-11 | Outpatient (REF) | payer MEDICARE, SELFPAY ==
--- OUTSIDE RECORDS SUMMARY | 2023-07-11 05:26 | XMS RPT_ITS | CCD ---
Author Name Unknown Address [address] [place] [address] Organization [facility] Care Team Providers Care Non Licensed Operator Name Role Phone VENKATESH PALOMINO Unavailable Unavailable VENKATESH PALOMINO Unavailable Unavailable MICHAEL, DAESUNG Unavailable Unavailable MICHAEL, DAESUNG Unavailable Unavailable ANDRE VALDES E Unavailable Unavailable ANDRE VALDES E Unavailable Unavailable FRANKLIN, ZITA Unavailable Unavailable FRANKLIN, ZITA Unavailable Unavailable FRANKLIN, ZITA Unavailable Unavailable FRANKLIN, ZITA Unavailable Unavailable FRANKLIN, ZITA Unavailable Unavailable FRANKLIN, ZITA Unavailable Unavailable PRASHANTH ROSE (TOOL DRAWING CHECKER) Unavailable Unavailable Allergies Allergy Classification Reported Allergen(s) Allergy Type Date of Onset Reaction(s) Facility (1 source) acetaminophen / HYDROcodone; Translations: [HYDROCODONE-ACET AMINOPHEN] Drug Allergy 2 [facility] Repository (1 source) codeine; Translations: [CODEINE] Drug Allergy 5 [facility] [place] [facility] Repository (1 source) ezetimibe; Translations: [EZETIMIBE] Drug Allergy 7 [facility] Repository (1 source) Hmg-Coa Reductase Inhibitors (Statins); Translations: [[id number] REDUCTASE INHIBITORS] Propensity to adverse reactions to drug (disorder) 6 [facility] Repository (1 source) lovastatin; Translations: [LOVASTATIN] Drug Allergy 5 [facility] Repository (1 source) Penicillins; Translations: [PENICILLINS] Propensity to adverse reactions to drug (disorder) 5 [facility] [place] [facility] Repository Problems Active Problems Problem Classification Problem [...] te Episodic/Chronic Other aftercare (1 source) Other usp (current) drug therapy; Translations: [Other usp (current) drug therapy] Onset: 03-06-2017 Episodic Results Test Name Value Interpretation Reference Range Facil ity Encounters Encounter Date Encounter Type Care Provider Facility Start: 06-14-2017 End: 06-14-2017 Ambulatory VENKATESH PALOMINO [facility] Start: 04-03-2017 End: 04-03-2017 Ambulatory PRASHANTH (SCARLETT) ROSE [facility] Start: 03-21-2017 End: 03-22-2017 Ambulatory XENIA FRANKLIN [facility] Start: 03-07-2017 End: 03-09-2017 Ambulatory XENIA FRANKLIN [facility] Start: 03-06-2017 End: 03-07-2017 Ambulatory XENIA FRANKLIN [facility] Start: 02-15-2017 Ambulatory XENIA FRANKLIN [facility] Start: 01-04-2017 End: 01-04-2017 Ambulatory ANDRE VALDES [facility] Start: 11-25-2016 End: 11-25-2016 Ambulatory VENKATESH PALOMINO [facility] Summary Purpose Family History No Family History Records FoundNo Family History Records FoundNo Family History Records Found Advance Directives No Advanced Directives Records FoundNo Advanced Directives Records FoundNo Advanced Directives Records Found Additional Source Comments INFORMATION SOURCE (unrecogn ized section and content) DATE CREATED AUTHOR AUTHOR'S ORGANIZ ATION 11/17/2017 [facility] DATE CREATED AUTHOR AUTHOR'S ORGANIZ ATION 04/23/2019 [facility] ([place]) FOR RECORDS PERTAINING TO PATIENTS [...] BE BASED ON THE PRIMARY CLINICAL RECORDS. [facility] [employer] [facility]. provides no warranty or guarantee of the accuracy or completeness of information in this document.
[2023-07-11 09:39] LABS: International Normalized Ratio 2.8; Prothrombin Time (Protime)PT. 30.2 SECONDS (11.7-14.9)
== END ==
PROVIDERS: PCP Family Medicine; Visit Provider Family Medicine
DX: Z79.01 Long term (current) use of anticoagulants (principal)
CPT/HCPCS: 36415; 85610

== ENCOUNTER → 2023-07-26 | Outpatient (REF) | payer MEDICARE, SELFPAY ==
--- OUTSIDE RECORDS SUMMARY | 2023-07-26 03:52 | XMS RPT_ITS | CCD ---
Author Name Unknown Address [address] [place] [address] Organization [facility] Care Team Providers Care Rotoprinter Name Role Phone VENKATESH PALOMINO Unavailable Unavailable VENKATESH PALOMINO Unavailable Unavailable MICHAEL, DAESUNG Unavailable Unavailable MICHAEL, DAESUNG Unavailable Unavailable ANDRE VALDES E Unavailable Unavailable ANDRE VALDES Unavailable Unavailable FRANKLIN, ZITA Unavailable Unavailable FRANKLIN, ZITA Unavailable Unavailable FRANKLIN, ZITA Unavailable Unavailable FRANKLIN, ZITA Unavailable Unavailable FRANKLIN, ZITA Unavailable Unavailable FRANKLIN, ZITA Unavailable Unavailable PRASHANTH ROSE (CINDER CREW WORKER) Unavailable Unavailable Allergies Allergy Classification Reported Allergen(s) Allergy Type Date of Onset Reaction(s) Facility (1 source) acetaminophen / HYDROcodone; Translations: [HYDROCODONE-ACET AMINOPHEN] Drug Allergy 2 [facility] Repository (1 source) codeine; Translations: [CODEINE] Drug Allergy 5 [facility] Repository (1 source) ezetimibe; Translations: [EZETIMIBE] Drug Allergy 7 [facility] Repository (1 source) Hmg-Coa Reductase Inhibitors (Statins); Translations: [[id number] REDUCTASE INHIBITORS] Propensity to adverse reactions to drug (disorder) 6 [facility] Repository (1 source) lovastatin; Translations: [LOVASTATIN] Drug Allergy 5 [facility] Repository (1 source) Penicillins; Translations: [PENICILLINS] Propensity to adverse reactions to drug (disorder) 5 [facility] Repository Problems Active Problems Problem Classification [...] te Episodic/Chronic Other aftercare (1 source) Other alf (current) drug therapy; Translations: [Other alf (current) drug therapy] Onset: 03-06-2017 Episodic Results Test Name Value Interpretation Reference Range Facil ity Encounters Encounter Date Encounter Type Care Provider Facility Start: 06-14-2017 End: 06-14-2017 Ambulatory VENKATESH PALOMINO [facility] Start: 04-03-2017 End: 04-03-2017 Ambulatory PRASHANTH (SCARLETT) ROSE [facility] Start: 03-21-2017 End: 03-22-2017 Ambulatory XENIA FRANKLIN [facility] Start: 03-07-2017 End: 03-09-2017 Ambulatory XENIA FRANKLIN [facility] Start: 03-06-2017 End: 03-07-2017 Ambulatory XENIA FRANKLIN [facility] Start: 02-15-2017 Ambulatory XENIA FRANKLIN [facility] Start: 01-04-2017 End: 01-04-2017 Ambulatory ANDRE VALDES [facility] Start: 11-25-2016 End: 11-25-2016 Ambulatory VENKATESH PALOMINO [facility] Summary Purpose Family History No Family History Records FoundNo Family History Records FoundNo Family History Records Found Advance Directives No Advanced Directives Records FoundNo Advanced Directives Records FoundNo Advanced Directives Records Found Additional Source Comments INFORMATION SOURCE (unrecogn ized section and content) DATE CREATED AUTHOR AUTHOR'S ORGANIZ ATION 11/17/2017 [facility] DATE CREATED AUTHOR AUTHOR'S ORGANIZ [...] BE BASED ON THE PRIMARY CLINICAL RECORDS. [facility]. provides no warranty or guarantee of the accuracy or completeness of information in this document.
[2023-07-26 07:31] LABS: International Normalized Ratio 2.7; Prothrombin Time (Protime)PT. 28.2 SECONDS (11.7-14.9)
== END ==
PROVIDERS: PCP Family Medicine; Referring Provider Family Medicine; Visit Provider Family Medicine
DX: Z79.01 Long term (current) use of anticoagulants (principal)
CPT/HCPCS: 36415; 85610

== ENCOUNTER → 2023-08-09 | Outpatient (REF) | payer MEDICARE, SELFPAY ==
--- OUTSIDE RECORDS SUMMARY | 2023-08-09 08:00 | XMS RPT_ITS | CCD ---
Author Name Unknown Address [address] [place] [address] Organization [facility] Care Team Providers Care [place]htha Washing System Operator Name Role Phone VENKATESH PALOMINO Unavailable Unavailable VENKATESH PALOMINO Unavailable Unavailable MICHAEL, DAESUNG Unavailable Unavailable MICHAEL, DAESUNG Unavailable Unavailable ANDRE VALDES E Unavailable Unavailable ANDRE VALDES Unavailable Unavailable FRANKLIN, ZITA Unavailable Unavailable FRANKLIN, ZITA Unavailable Unavailable FRANKLIN, ZITA Unavailable Unavailable FRANKLIN, ZITA Unavailable Unavailable FRANKLIN, ZITA Unavailable Unavailable FRANKLIN, ZITA Unavailable Unavailable PRASHANTH ROSE (SSIS DEVELOPER) Unavailable Unavailable Allergies Allergy Classification Reported Allergen(s) Allergy Type Date of Onset Reaction(s) Facility (1 source) acetaminophen / HYDROcodone; Translations: [HYDROCODONE-ACET AMINOPHEN] Drug Allergy 2 [facility] Repository (1 source) codeine; Translations: [CODEINE] Drug Allergy 5 [facility] Repository (1 source) ezetimibe; Translations: [EZETIMIBE] Drug Allergy 7 [facility] Repository (1 source) Hmg-Coa Reductase Inhibitors (Statins); Translations: [EUARKKS-BOJ-DSB REDUCTASE INHIBITORS] Propensity to adverse reactions to drug (disorder) 6 [facility] Repository (1 source) lovastatin; Translations: [LOVASTATIN] Drug Allergy 5 [facility] Repository (1 source) Penicillins; Translations: [PENICILLINS] Propensity to adverse reactions to drug (disorder) 5 [facility] Repository Problems Active Problems Problem Classification [...] te Episodic/Chronic Other aftercare (1 source) 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; Translations: [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] Onset: 03-06-2017 Episodic Results Test Name Value Interpretation Reference Range Facil ity Encounters Encounter Date Encounter Type Care Provider Facility Start: 06-14-2017 End: 06-14-2017 Ambulatory VENKATESH PALOMINO [facility] Start: 04-03-2017 End: 04-03-2017 Ambulatory PRASHANTH (SCARLETT) ROSE [facility] Start: 03-21-2017 End: 03-22-2017 Ambulatory XENIA FRANKLIN [facility] Start: 03-07-2017 End: 03-09-2017 Ambulatory XENIA FRANKLIN [facility] Start: 03-06-2017 End: 03-07-2017 Ambulatory XENIA FRANKLIN [facility] Start: 02-15-2017 Ambulatory XENIA FRANKLIN [facility] Start: 01-04-2017 End: 01-04-2017 Ambulatory ANDRE VALDES [facility] Start: 11-25-2016 End: 11-25-2016 Ambulatory VENKATESH PALOMINO [facility] Summary Purpose Family History No Family History Records FoundNo Family History Records FoundNo Family History Records Found Advance Directives No Advanced Directives Records FoundNo Advanced Directives Records FoundNo Advanced Directives Records Found Additional Source Comments INFORMATION SOURCE (unrecogn ized section and content) DATE CREATED AUTHOR AUTHOR'S ORGANIZ ATION 11/17/2017 [facility] DATE CREATED AUTHOR AUTHOR'S ORGANIZ ATION 04/23/2019 [facility] ([place]) FOR RECORDS PERTAINING TO PATIENTS [...] BE BASED ON THE PRIMARY CLINICAL RECORDS. [facility] [employer] [facility]. provides no warranty or guarantee of the accuracy or completeness of information in this document.
[2023-08-09 08:04] LABS: International Normalized Ratio 2.7; Prothrombin Time (Protime)PT. 28.2 SECONDS (11.7-14.9)
== END ==
PROVIDERS: PCP Family Medicine; Referring Provider Family Medicine; Visit Provider Family Medicine
DX: Z79.01 Long term (current) use of anticoagulants (principal)
CPT/HCPCS: 36415; 85610

== ENCOUNTER → 2023-08-30 | Outpatient (REF) | payer MEDICARE, SELFPAY ==
[2023-08-30 07:26] LABS: INR Fingerstick 1.9; Prothrombin Time Fingerstick 19.9 SEC (11.7-14.9)
== END ==
PROVIDERS: PCP Family Medicine; Visit Provider Family Medicine
DX: Z79.01 Long term (current) use of anticoagulants (principal)
CPT/HCPCS: 36416; 85610

== ENCOUNTER → 2023-09-11 | Outpatient (REF) | payer MEDICARE, SELFPAY ==
[2023-09-11 09:21] LABS: International Normalized Ratio 2.3; Prothrombin Time (Protime)PT. 25.2 SECONDS (11.7-14.9)
== END ==
PROVIDERS: PCP Family Medicine; Referring Provider Family Medicine; Visit Provider Family Medicine
DX: Z79.01 Long term (current) use of anticoagulants (principal)
CPT/HCPCS: 36415; 85610

== ENCOUNTER → 2023-09-26 | Outpatient (REF) | payer MEDICARE, SELFPAY ==
[2023-09-26 10:34] LABS: INR Fingerstick 2.7; Prothrombin Time Fingerstick 27.2 SEC (11.7-14.9)
== END ==
PROVIDERS: PCP Family Medicine; Visit Provider Family Medicine
DX: I10 Essential (primary) hypertension (principal); I48.91 Unspecified atrial fibrillation; Z86.718 Personal history of other venous thrombosis and embolism
CPT/HCPCS: 36416; 85610

== ENCOUNTER → 2023-10-13 | Outpatient (REF) | payer MEDICARE, SELFPAY ==
[2023-10-13 08:06] LABS: Prothrombin Time Fingerstick 20.9 SEC (11.7-14.9)
== END ==
PROVIDERS: PCP Family Medicine; Visit Provider Family Medicine
DX: Z79.01 Long term (current) use of anticoagulants (principal)
CPT/HCPCS: 36416; 85610

== ENCOUNTER → 2023-10-17 | Outpatient (REF) | payer MEDICARE, SELFPAY ==
[2023-10-17 07:39] LABS: Hematocrit 39.1 % (37-47); Hemoglobin 12.7 g/dL (12.0-15.0); Mean Corp Hgb Conc 32.5 g/dL (32-36); Mean Corpuscular Hgb 30.9 pg (27.0-32.0); Mean Corpuscular Volume 95.1 fL (81-99); Mean Platelet Vol. 10.4 fl (6.2-12.0); Platelet Count 173 K/mm3 (150-450); RBC Distribution Width CV 12.8 % (11.6-14.6); RBC Distribution Width SD 45.2 fl (35.1-43.9); Red Blood Count 4.11 M/mm3 (4.2-5.4); White Blood Count 5.7 K/mm3 (4.4-11.0)
[2023-10-17 08:57] LABS: Anion Gap 4 (5-15); BUN 12 mg/dL (7-18); Calcium,Total 8.7 mg/dL (8.5-10.1); Chloride 107 mmol/L (98-107); Cholesterol 137 mg/dL (200); Creatinine, Serum 0.63 mg/dL (0.55-1.02); EST Glomerular Filtration Rate 95 mL/min (>60); Est Glom Filt Rate - Afr Amer 115 mL/min (>60); Glucose 104 mg/dL (74-106); High Density Lipoprotein 50 mg/dL; Sodium Level 142 mmol/L (136-145); Thyroid Stim Hormone (TSH) 3.27 uIU/mL (0.358-3.74); Triglycerides 64 mg/dL; Very Low Density Lipoprotein 13 mg/dL (5-40)
== END ==
PROVIDERS: PCP Family Medicine; Visit Provider Family Medicine
DX: I10 Essential (primary) hypertension (principal); R53.81 Other malaise; E87.1 Hypo-osmolality and hyponatremia; E78.5 Hyperlipidemia, unspecified; G93.41 Metabolic encephalopathy
CPT/HCPCS: 36415; 80048; 80061; 84443; 85027

== ENCOUNTER → 2023-10-27 | Outpatient (REF) | payer MEDICARE, SELFPAY ==
[2023-10-27 07:21] LABS: INR Fingerstick 2.2; Prothrombin Time Fingerstick 22.7 SEC (11.7-14.9)
== END ==
PROVIDERS: PCP Family Medicine; Visit Provider Family Medicine
DX: Z79.01 Long term (current) use of anticoagulants (principal)
CPT/HCPCS: 36416; 85610

== ENCOUNTER → 2023-11-14 | Outpatient (REF) | payer MEDICARE, SELFPAY ==
[2023-11-14 08:11] LABS: INR Fingerstick 2.4
== END ==
PROVIDERS: PCP Family Medicine; Visit Provider Family Medicine
DX: Z79.01 Long term (current) use of anticoagulants (principal)
CPT/HCPCS: 36416; 85610

== ENCOUNTER → 2023-12-13 | Outpatient (REF) | payer MEDICARE, SELFPAY ==
[2023-12-13 08:04] LABS: INR Fingerstick 1.8; Prothrombin Time Fingerstick 19.5 SEC (11.7-14.9)
== END ==
PROVIDERS: PCP Family Medicine; Visit Provider Family Medicine
DX: Z79.01 Long term (current) use of anticoagulants (principal)
CPT/HCPCS: 36416; 85610

== ENCOUNTER → 2023-12-15 | Outpatient (REF) | payer MEDICARE, SELFPAY ==
[2023-12-15 06:48] LABS: INR Fingerstick 2.1; Prothrombin Time Fingerstick 22.1 SEC (11.7-14.9)
== END ==
PROVIDERS: PCP Family Medicine; Visit Provider Family Medicine
DX: Z79.01 Long term (current) use of anticoagulants (principal)
CPT/HCPCS: 36416; 85610

== ENCOUNTER → 2024-01-09 | Outpatient (REF) | payer MEDICARE, SELFPAY ==
[2024-01-09 09:42] LABS: Hematocrit 41.8 % (37-47); Hemoglobin 13.5 g/dL (12.0-15.0); Mean Corp Hgb Conc 32.3 g/dL (32-36); Mean Corpuscular Hgb 30.8 pg (27.0-32.0); Mean Corpuscular Volume 95.4 fL (81-99); Mean Platelet Vol. 10.5 fl (6.2-12.0); Platelet Count 191 K/mm3 (150-450); RBC Distribution Width CV 12.6 % (11.6-14.6); RBC Distribution Width SD 44.7 fl (35.1-43.9); Red Blood Count 4.38 M/mm3 (4.2-5.4); White Blood Count 8.6 K/mm3 (4.4-11.0)
[2024-01-09 09:50] LABS: Color, Urine Yellow (Yellow); Glucose, Dipstick Normal (Normal); Ketone-Dipstick Negative (Negative); Leukocyte Esterase-Dipstick 500 /ul (Negative); Nitrite-Dipstick Negative (Negative); Occult Blood-Urine 10 /ul (Negative); Protein-Dipstick 15 mg/dl (Negative); Specific Gravity, Urine 1.015 (1.002-1.030); Urine Bilirubin Dipstick Negative (Negative); Urine Clarity Clear (Clear); Urine Urobilinogen Normal (Normal)
[2024-01-09 12:21] LABS: ALB/GLOB Ratio 0.9 RATIO (0.9-2.4); AST(SGOT) 18 U/L (15-37); Alanine Aminotransfer ALT/SGPT 20 U/L (13-56); Albumin, Serum 3.1 g/dL (3.2-5.0); Alkaline Phosphatase 66 U/L (45-117); Anion Gap 6 (5-15); BUN 10 mg/dL (7-18); BUN/Creat Ratio 14.9 RATIO (10-20); Calcium,Total 8.6 mg/dL (8.5-10.1); Chloride 104 mmol/L (98-107); Creatinine, Serum 0.67 mg/dL (0.55-1.02); EST Glomerular Filtration Rate 88 mL/min (>60); Est Glom Filt Rate - Afr Amer 107 mL/min (>60); Globulin 3.5 g/dL (2.2-4.2); Glucose 144 mg/dL (74-106); Potassium 4.3 mmol/L (3.5-5.1); Protein, Total 6.6 g/dL (6.4-8.2); Sodium Level 140 mmol/L (136-145)
[2024-01-09 13:25] LABS: Hemoglobin A1c 5.6 % (3.8-5.6)
== END ==
PROVIDERS: PCP Family Medicine; Visit Provider Family Medicine
DX: I48.91 Unspecified atrial fibrillation (principal); I10 Essential (primary) hypertension; E78.5 Hyperlipidemia, unspecified; R39.9 Unspecified symptoms and signs involving the genitourinary system; Z79.899 Other long term (current) drug therapy
CPT/HCPCS: 36415; 80053; 81002; 83036; 84443; 85027; 87086

== ENCOUNTER → 2024-02-19 | Outpatient (REF) | payer MEDICARE, SELFPAY ==
[2024-02-19 08:53] LABS: INR Fingerstick 3.3
== END ==
PROVIDERS: PCP Family Medicine; Visit Provider Family Medicine
DX: Z79.01 Long term (current) use of anticoagulants (principal)
CPT/HCPCS: 36416; 85610

== ENCOUNTER → 2024-02-20 | Outpatient (REF) | payer MEDICARE, SELFPAY ==
[2024-02-20 10:06] LABS: INR Fingerstick 2.5; Prothrombin Time Fingerstick 26.1 SEC (11.7-14.9)
== END ==
PROVIDERS: PCP Family Medicine; Visit Provider Family Medicine
DX: Z79.01 Long term (current) use of anticoagulants (principal)
CPT/HCPCS: 36416; 85610

== ENCOUNTER → 2024-02-21 | Outpatient (REF) | payer MEDICARE, SELFPAY ==
[2024-02-21 08:28] LABS: International Normalized Ratio 2.6
== END ==
PROVIDERS: PCP Family Medicine; Visit Provider Family Medicine
DX: Z79.01 Long term (current) use of anticoagulants (principal)
CPT/HCPCS: 36415; 85610

== ENCOUNTER → 2024-02-29 | Outpatient (REF) | payer MEDICARE, SELFPAY ==
[2024-02-29 08:56] LABS: INR Fingerstick 2.9; Prothrombin Time Fingerstick 29.4 SEC (11.7-14.9)
== END ==
PROVIDERS: PCP Family Medicine; Visit Provider Family Medicine
DX: Z79.01 Long term (current) use of anticoagulants (principal)
CPT/HCPCS: 36416; 85610

== ENCOUNTER → 2024-03-14 | Outpatient (REF) | payer MEDICARE, SELFPAY ==
[2024-03-14 08:32] LABS: International Normalized Ratio 3.1; Prothrombin Time (Protime)PT. 31.4 SECONDS (11.7-14.9)
== END ==
PROVIDERS: PCP Family Medicine; Visit Provider Family Medicine
DX: Z79.01 Long term (current) use of anticoagulants (principal)
CPT/HCPCS: 36415; 85610

== ENCOUNTER → 2024-03-18 | Outpatient (REF) | payer MEDICARE, SELFPAY ==
[2024-03-18 08:56] LABS: INR Fingerstick 3.3; Prothrombin Time Fingerstick 32.9 SEC (11.7-14.9)
== END ==
PROVIDERS: PCP Family Medicine; Visit Provider Family Medicine
DX: Z79.01 Long term (current) use of anticoagulants (principal)
CPT/HCPCS: 36416; 85610

== ENCOUNTER → 2024-03-19 | Outpatient (REF) | payer MEDICARE, SELFPAY ==
[2024-03-19 08:58] LABS: Prothrombin Time (Protime)PT. 40.3 SECONDS (11.7-14.9)
[2024-03-19 09:08] LABS: International Normalized Ratio 4.2
== END ==
PROVIDERS: PCP Family Medicine; Visit Provider Family Medicine
DX: Z79.01 Long term (current) use of anticoagulants (principal)
CPT/HCPCS: 36415; 85610

== ENCOUNTER → 2024-03-20 | Outpatient (REF) | payer MEDICARE, SELFPAY ==
[2024-03-20 09:14] LABS: Absolute Lymphocyte Count 1.34 X10^3/uL (0.83-4.51); Absolute Neutrophil Count 4.1 X10^3/uL (2.0-7.7); Basophil# 0.03 X10^3/uL; Basophil% 0.5 % (0-1); Eosinophil# 0.32 X10^3/uL; Eosinophils% 5.1 % (0-5); Hematocrit 38.4 % (37-47); Hemoglobin 12.4 g/dL (12.0-15.0); International Normalized Ratio 2.3; Lymphocyte # 1.34 X10^3/ul (0.83-4.51); Lymphocyte % 21.3 % (19-41); Mean Corp Hgb Conc 32.3 g/dL (32-36); Mean Corpuscular Hgb 30.5 pg (27.0-32.0); Mean Corpuscular Volume 94.3 fL (81-99); Mean Platelet Vol. 10.5 fl (6.2-12.0); Monocyte# 0.44 X10^3/uL; NRBC Flagged by Analyzer 0 % (0-5); Neutrophil # 4.14 X10^3/uL (2.7-7.7); Neutrophil % 65.9 % (47-70); Platelet Count 173 K/mm3 (150-450); Prothrombin Time (Protime)PT. 25.3 SECONDS (11.7-14.9); RBC Distribution Width CV 12.9 % (11.6-14.6); RBC Distribution Width SD 44.3 fl (35.1-43.9); Red Blood Count 4.07 M/mm3 (4.2-5.4); White Blood Count 6.3 K/mm3 (4.4-11.0)
[2024-03-20 09:34] LABS: ALB/GLOB Ratio 0.9 RATIO (0.9-2.4); AST(SGOT) 15 U/L (15-37); Alanine Aminotransfer ALT/SGPT 14 U/L (13-56); Albumin, Serum 3.2 g/dL (3.2-5.0); Alkaline Phosphatase 65 U/L (45-117); Anion Gap 5 (5-15); BUN 11 mg/dL (7-18); BUN/Creat Ratio 16.8 RATIO (10-20); Calcium,Total 8.9 mg/dL (8.5-10.1); Chloride 108 mmol/L (98-107); Creatinine, Serum 0.65 mg/dL (0.55-1.02); EST Glomerular Filtration Rate 91 mL/min (>60); Est Glom Filt Rate - Afr Amer 110 mL/min (>60); Globulin 3.4 g/dL (2.2-4.2); Glucose 124 mg/dL (74-106); Potassium 4.2 mmol/L (3.5-5.1); Protein, Total 6.6 g/dL (6.4-8.2); Sodium Level 140 mmol/L (136-145)
== END ==
PROVIDERS: PCP Family Medicine; Visit Provider Family Medicine
DX: I10 Essential (primary) hypertension (principal); Z79.899 Other long term (current) drug therapy; Z79.01 Long term (current) use of anticoagulants
CPT/HCPCS: 36415; 80053; 85025; 85610

== ENCOUNTER → 2024-03-21 | Outpatient (REF) | payer MEDICARE, SELFPAY ==
[2024-03-21 09:26] LABS: International Normalized Ratio 2.5; Prothrombin Time (Protime)PT. 26.7 SECONDS (11.7-14.9)
== END ==
PROVIDERS: PCP Family Medicine; Visit Provider Family Medicine
DX: Z79.01 Long term (current) use of anticoagulants (principal)
CPT/HCPCS: 36415; 85610

== ENCOUNTER → 2024-03-22 | Outpatient (REF) | payer MEDICARE, SELFPAY ==
[2024-03-22 09:42] LABS: INR Fingerstick 2.2; Prothrombin Time Fingerstick 22.9 SEC (11.7-14.9)
== END ==
PROVIDERS: PCP Family Medicine; Visit Provider Family Medicine
DX: R79.1 Abnormal coagulation profile (principal); Z79.01 Long term (current) use of anticoagulants
CPT/HCPCS: 36416; 85610

== ENCOUNTER 2024-03-24 11:05 | Emergency (ER) | payer MEDICARE, SELFPAY ==
[2024-03-24 11:05] VITALS: BP 177/77; PULSE 71; RESP 16; TEMP 36.8; O2SAT 96; BMI 26.6
--- NOTE | 2024-03-24 11:45 | EDS_ITS ---
HPI History of Present Illness HPI Narrative: Patient presents with right hip pain that began after a fall 1 week ago. Patient states her pain has been constant for the past week. Patient describes it as constant aching but sharp with any movement. Patient states she is unable to bear weight today.. Patient admits to some weakness due to her Parkinson's disease. Patient denies any paresthesias. Patient denies any head injury or loss of consciousness. Patient denies any other injuries. Chief Complaint: Lower Extremity Injury Informant: patient Occured/Mechanism Mechanism/Context: Yes fall Onset/Context/Timing Onset: Weeks (1) Context: Sudden Onset Timing: Continuous Quality of Pain: Sharp (With movement) and Aching Location: Right hip Worsened by: Movement Relieved by: Rest Associated Symptoms Associated Symptoms: Positive for Weakness; Negative for Parasthesia or Loss of Funtion [facility] History History of Parkinson's disease Memory loss Nonrheumatic aortic (valve) stenosis Poor balance Frequent falls skilled nursing current use of anticoagulant Rheumatoid arthritis Parkinsonian syndrome History of pulmonary embolus (PE) Postoperative atrial fibrillation (04/04/13) Recurrent deep vein thrombosis (DVT) Hypercoagulable state History of non-ST elevation myocardial infarction (NSTEMI) (10/01/16) Atherosclerotic heart disease of [place] coronary artery without angina pectoris Paroxysmal atrial fibrillation Essential hypertension Restrictive airway disease Atrial fibrillation with RVR (10/01/16) Bilateral breast cancer Depression Home Medications ?Medication ?Instructions ?Recorded ?Last Taken ?Type venlafaxine 75 mg tablet 75 mg PO QHS DEPRESSION 02/14/19 06/15/22 20:45 History albuterol sulfate 90 mcg/actuation 2 puff inhalation Q6H PRN Wheezing 09/23/21 Unknown History aerosol inhaler (Ventolin HFA) losartan 100 mg tablet 100 mg PO DAILY BP 09/23/21 06/16/22 09:15 History trazodone 100 mg tablet 100 mg PO QHS Sleep 09/23/21 06/15/22 20:45 History hydroxychloroquine 200 mg tablet 200 mg PO BID RA 11/02/21 06/16/22 09:15 History venlafaxine 150 mg 150 mg PO BREAKFAST DEPRESSION 11/02/21 06/16/22 09:15 History capsule,extended release 24 hr alprazolam 0.25 mg tablet 0.25 mg PO QHS PRN PRN 11/10/21 06/15/22 11:30 Rx Anxiety/Restlessness/Sleep #0 tabs potassium chloride 20 mEq 20 meq PO DAILYCM 30 days #30 tabs 11/10/21 06/16/22 09:15 Rx tablet,extended release(part/cryst) (Klor-Con M) acetaminophen 325 mg tablet 650 mg PO Q6H PRN Pain 06/16/22 06/08/22 20:00 History alprazolam 0.5 mg tablet 0.5 mg PO QHS DEPRESSION 06/16/22 06/15/22 20:45 History metoprolol tartrate 100 mg tablet 100 mg PO BID HTN 06/16/22 06/16/22 09:15 History carbidopa 10 mg-levodopa 100 mg 1 tab PO TID 01/09/23 Unknown History disintegrating tablet metoprolol tartrate 100 mg tablet 100 mg PO BID 01/09/23 Unknown History warfarin 5 mg tablet 5 mg PO DINNER AFIB 01/09/23 Unknown History warfarin 6 mg tablet 6 mg PO .3XW 01/09/23 Unknown History ondansetron 4 mg disintegrating 4 mg PO Q8H PRN PRN Nausea #10 tabs 02/02/23 Unknown Rx tablet Allergy/AdvReac Type Severity Reaction Status Date / Time Penicillins Allergy Anaphylaxis Verified 03/24/24 11:05 acetaminophen (From Vicodin) AdvReac Itching Verified 03/24/24 11:05 codeine AdvReac Nausea Verified 03/24/24 11:05 ezetimibe (From Zetia) AdvReac Itching Verified 03/24/24 11:05 hydrocodone bitartrate (From AdvReac Itching Verified 03/24/24 11:05 Vicodin) Iyikefz-SYF-WkZ Reductase AdvReac Other Verified 03/24/24 11:05 Inhibitor (Qvvagfe-Wgv-Pdt Reductase Inhibitor) Surgical History History of coronary artery stent placement (12/2003) History of left heart catheterization (10/13/15) History of cardioversion (10/01/16) 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) History of appendectomy Social History household members: none Smoking Status: Former smoker how long ago did patient quit smokin, 1ppd second hand exposure: Yes alcohol intake: never substance use type: does not use ROS ROS ED Constitutional Constitutional ED: Denies chills or fever(s) Eyes Eyes: Reports change in vision; Denies blurry vision or diplopia ENT ENT ED: Denies rhinorrhea or sore throat Cardiovascular Cardiovascular: Denies chest pain or palpitations Respiratory/Chest Respiratory/Chest: Denies cough or dyspnea Gastrointestinal Gastrointestinal: Denies nausea or vomiting Genitourinary Genitourinary ED: Denies dysuria or hematuria Musculoskeletal Musculoskeletal: Denies back pain or neck pain Integumentary Denies abscess or rash Neurologic Neurologic: Denies headache(s) or weakness Allergic/Immunologic Allergic/Immunologic ED: Denies mouth swelling or urticaria EXAM Physical Exam Const Vital Signs: 03/24/24 11:05 03/24/24 13:31 03/24/24 14:18 Temperature 98.2 F Temperature Source Oral Pulse Rate 71 62 64 Respiratory Rate 16 16 18 Blood Pressure 177/77 H 142/68 H 165/65 H Blood Pressure Mean 110 92 98 Pulse Ox 96 96 Oxygen Delivery Method Room Air Room Air Positive well nourished and well developed General Appearance ED: well developed and NAD HEENT Reports moist mucous membranes Neck full ROM and supple Resp normal respiratory effort and clear to auscultation bilaterally Cardio regular rate and regular rhythm GI non-tender and non-distended Palpation: soft Extremity Extremity Narrative: There is tenderness to palpation over the right hip on the anterior and lateral aspects. There is limited range of motion of the right hip secondary to pain. There is no obvious deformity noted. Pedal pulses are equal bilaterally. Sensation was intact to light touch bilaterally in the lower extremities. Strength is 5/5 bilaterally in the lower extremities. General Extremety ED: Yes weight-bearing difficulty General Extremity: weight-bearing difficulty Neuro oriented x3, CN's II-XII intact bilaterally, moves all extremities and no sensory deficits noted Sensorium / Orientation: alert Motor Exam: strength 5/5 throughout Psych mental status grossly normal MDM MDM MDM Narrative Medical decision making narrative: Differential diagnosis includes hip fracture, contusion, sprain, pneumonia, and viral illness. X-rays of the right hip and pelvis will be obtained to assess for fracture. Chest x-ray will be obtained to assess for pneumonia. Radiography Chest X-Ray - ED: 1 View, Read by ED Physician, Read by Radiologist and No Acute Disease Diagnostic Testing: Clinical Impression(s) from Imaging Studies Chest X-Ray 03/24/24 11:49 IMPRESSION: No radiographic evidence of acute cardiopulmonary disease. Electronically Signed: Tyrel Diaz MD at 13:11 EDT , Hip/Pelvis X-Ray 03/24/24 11:49 IMPRESSION: Foreshortening of the right femoral neck. Subcapital fracture cannot be entirely excluded. CT scan of the pelvis might be of value. Electronically Signed: Tyrel Diaz MD at 13:06 EDT , Lower Extremity CT 03/24/24 13:08 IMPRESSION: No evidence of acute fracture. Electronically Signed: Tyrel Diaz MD at 14:26 EDT , X-rays of the right hip were obtained. There are 3 views. On my independent interpretation, there is a questionable subcapital femoral neck fracture. There is no displacement. There are some degenerative changes noted. Radiologist also interpreted the x-rays and agrees. Radiologist recommended obtaining CT scan of the hip. Because of the radiologist recommendation, CT scan of the hip was obtained. There is no evidence of any acute fracture. There are some degenerative changes. This was interpreted by the radiologist and was also independently reviewed by myself. Portable 1 view chest x-ray was obtained. On my independent interpretation, lung herman are clear. There is normal cardiac silhouette. Bony thorax is normal. There is no acute process noted. Radiologist also interpreted the x- ray and agrees. Treatment and Re-Evaluation Narrative: Patient was given morphine and Zofran here. Patient and family were advised of the findings. Patient will attempt ambulation with a walker. If the patient is able to ambulate, I feel that the patient can be discharged home. Patient states she wants to go home. If the patient is unable to ambulate, I will contact the hospitalist for admission for therapy. Patient was able to ambulate with a walker. Patient was instructed to continue her medications as previously prescribed. Patient was instructed to follow-up with her primary care physician in 5 to 7 days. Patient understood and was agreeable with the plan. All questions were answered. Discharge Plan Triage Chief Complaint: Lower Extremity Injury ED Provider: Serge Gómez Dx/Rx/DC Orders Clinical Impression: Acute right hip pain, Parkinsonian syndrome, Fall Instructions: ED Hip Contusion Prescriptions: No Action trazodone 100 mg tablet 100 mg PO QHS Patient Comments: TAKE 1 TABLET BY MOUTH AT BEDTIME albuterol sulfate [Ventolin HFA] 90 mcg/actuation HFA aerosol inhaler 2 puff inhalation Q6H PRN (Reason: Wheezing) losartan 100 mg tablet 100 mg PO DAILY Patient Comments: DAUGHTER IS UNSURE IF PT IS STILL TAKING. SHE WILL VERIFY AND CALL WITH UPDATE. warfarin 6 mg tablet 6 mg PO .3XW Rx Instructions: take on tab PO on time a day three times weekly on , and Sun in the evening carbidopa-levodopa 10-100 mg tablet,disintegrating 1 tab PO TID metoprolol tartrate 100 mg tablet 100 mg PO BID venlafaxine 75 MG tablet 75 mg PO QHS venlafaxine 150 mg Capsule,Extended Release 24hr 150 mg PO BREAKFAST hydroxychloroquine 200 mg tablet 200 mg PO BID Patient Comments: TAKE 1 TABLET BY MOUTH TWICE DAILY alprazolam 0.25 mg Tablet 0.25 mg PO QHS PRN PRN (Reason: Anxiety/Restlessness/Sleep) Qty: 0 0RF potassium chloride [Klor-Con M20] 20 mEq Tablet,Er Particles/Crystals 20 meq PO DAILYCM 30 Days Qty: 30 0RF acetaminophen 325 mg Tablet 650 mg PO Q6H PRN (Reason: Pain) metoprolol tartrate 100 mg tablet 100 mg PO BID alprazolam 0.5 mg tablet 0.5 mg PO QHS warfarin 5 mg tablet 5 mg PO DINNER Rx Instructions: 1 tb PO one time a day four times weekly on Mon, Wed, Fri, and Sat Evening. ondansetron [ondansetron] 4 mg tablet,disintegrating 4 mg PO Q8H PRN PRN (Reason: Nausea) Qty: 10 0RF Primary Care Provider: Melo Shrestha Referrals: Joao Simon MD [Med Staff - Active Staff] - 3-5 Days Print Language: Malay Disposition Disposition: Home, Self Care
--- NOTE | 2024-03-24 11:49 | RAD_ITS ---
INDICATION: Injury/Pain EXAMINATION/TECHNIQUE: X-RAY - XR Hip Unilateral with Pelvis when performed; 2-3 Views COMPARISON: Prior study dated: 06/17/2021 FINDINGS: PELVIC BONES: No displaced fracture, destructive or sclerotic lesions. Note that overlapping bowel shadows may however obscure fine detail. Sacroiliac joints are unremarkable. No widening of the pubic symphysis. HIPS: The articular structures are unremarkable. Foreshortening of the femoral neck. Subcapital fracture is difficult to exclude. SOFT TISSUES: Vascular calcifications. RAD/HIP, UNI W/ Pelvis 2-3 Views IMPRESSION: Foreshortening of the right femoral neck. Subcapital fracture cannot be entirely excluded. CT scan of the pelvis might be of value. Electronically Signed: Tyrel Diaz MD at 13:06 EDT ,
--- NOTE | 2024-03-24 11:49 | RAD_ITS ---
INDICATION: Cough EXAMINATION/TECHNIQUE: X-RAY - XR Chest 1 View COMPARISON: Prior study dated: 1922 FINDINGS: LINES/DEVICES: None. LUNGS: No consolidation, edema or effusion. No pneumothorax. MEDIASTINUM AND CARDIOVASCULAR STRUCTURES: Stable cardiomediastinal silhouette. Status post median sternotomy and CABG. BONES AND SOFT TISSUES: Unremarkable. RAD/Chest 1 View (Portable) IMPRESSION: No radiographic evidence of acute cardiopulmonary disease. Electronically Signed: Tyrel Diaz MD at 13:11 EDT ,
[2024-03-24] MEDS: Ondansetron 4 MG/2 ML Vial IV (11:55)
[2024-03-24] MEDS: Morphine 4 MG/ML Syringe IV (11:56)
--- OUTSIDE RECORDS SUMMARY | 2024-03-24 11:59 | XMS RPT_ITS | CCD ---
Author Organization [facility] Care Team Providers Care Job Setter Name Role Phone JOAO FAY Unavailable Unavailable JOAO FAY Unavailable Unavailable MICHAEL, DAESUNG Unavailable Unavailable MICHAEL, DAESUNG Unavailable Unavailable FREDO VALDES E Unavailable Unavailable KEISHA, FREDO E Unavailable Unavailable FRANKLIN, ZITA Unavailable Unavailable FRANKLIN, ZITA Unavailable Unavailable FRANKLIN, ZITA Unavailable Unavailable FRANKLIN, ZITA Unavailable Unavailable FRANKLIN, ZITA Unavailable Unavailable FRANKLIN, ZITA Unavailable Unavailable OLDER, JESSIE (BUTTON MAKER AND INSTALLER) Unavailable Unavailable Allergies Allergy Classification Reported Allergen(s) Allergy Type Date of Onset Reaction(s) Facility (1 source) acetaminophen / HYDROcodone; Translations: [HYDROCODONE-ACET AMINOPHEN] Drug Allergy 2 [facility] Repository (1 source) codeine; Translations: [CODEINE] Drug Allergy 5 [facility] Repository (1 source) ezetimibe; Translations: [EZETIMIBE] Drug Allergy 7 [facility] Repository (1 source) Hmg-Coa Reductase Inhibitors (Statins); Translations: [[id number] REDUCTASE INHIBITORS] Propensity to adverse reactions to drug (disorder) 6 [facility] Repository (1 source) lovastatin; Translations: [LOVASTATIN] Drug Allergy 5 [facility] Repository (1 source) Penicillins; Translations: [PENICILLINS] Propensity to adverse reactions to drug (disorder) 5 [facility] Repository Problems Active Problems Problem [...] te Episodic/Chronic Other aftercare (1 source) Other [place] [facility] (current) drug therapy; 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] Onset: 03-06-2017 Episodic Results Test Name Value Interpretation Reference Range Facility PROon 04-16-2019 INR Coag (PPP) [Relative time] 2.3 {INR} Normal [facility] ([place]) Comment on above: Order Comment: order ed secondary to warfarin order Result Comment: [employer] (CHEST, 1992, 102:312S-25S) recommended therapeutic range for oral anticoagulant therapy is: LOW RISK: Prophylaxis of venous thrombosis INR: 2.0-3.0 Treatment of pulmonary embolism 2.0-3.0 Prevention of systemic embolism 2.0-3.0 HIGH RISK: Mechanical prosthetic valves 2.5-3.5 Performed By: #### C BC, ADIFF, ANEU, PRO, CMP, GFR #### [address] [address] PT Coag (PPP) [Time] 26.9 s High 9.0-14.6 [facility] ([place]) Comment on above: Order Comment: order ed secondary to warfarin order Result Comment: Effe ctive 12/11/07, Protime results may be affected by some antibiotics (i.e. Ciprofloxacin, Azithromycin, Bactrim) which may potentiate the action of oral anticoagulants, with further increases in Protime/INR. Performed By: #### C BC, ADIFF, ANEU, PRO, CMP, GFR #### [address] [address] .Auto Diffon 04-15-2019 Ammonia (P) [Mass/Vol] 0.50 10 3/mcL Normal 0.09-1.40 [facility] ([place]) Comment on above: Performed By: #### C BC, ADIFF, ANEU, PRO, CMP, GFR #### [address] [address] Basophils (Bld) [#/Vol] 0.10 10 3/mcL Normal 0.00-0.27 [facility] ([place]) Comment on above: Performed By: #### C BC, ADIFF, ANEU, PRO, CMP, GFR #### [address] [address] Basophils/100 WBC (Bld) 0.8 % Normal 0.0-2.5 [facility] ([place]) Comment on above: Performed By: #### C BC, ADIFF, ANEU, PRO, CMP, GFR #### [address] [address] Eosinophils (Bld) [#/Vol] 0.40 10 3/mcL Normal 0.00-0.65 [facility] ([place]) Comment on above: Performed By: #### C BC, ADIFF, ANEU, PRO, CMP, GFR #### [address] [address] Eosinophils/100 WBC (Bld) 5.9 % Normal 0.0-6.0 [facility] ([place]) Comment on above: Performed By: #### C BC, ADIFF, ANEU, PRO, CMP, GFR #### [address] [address] Lymphocytes (Bld) [#/Vol] 2.40 10 3/mcL Normal 0.90-4.32 [facility] ([place]) Comment on above: Performed By: #### C BC, ADIFF, ANEU, PRO, CMP, GFR #### [address] [address] Lymphocytes/100 WBC (Bld) 34.4 % Normal 20.0-40.0 [facility] ([place]) Comment on above: Performed By: #### C BC, ADIFF, ANEU, PRO, CMP, GFR #### [address] [address] Monocytes/100 WBC (Bld) 6.5 % Normal 2.0-13.0 [facility] ([place]) Comment on above: Performed By: #### C BC, ADIFF, ANEU, PRO, CMP, GFR #### [address] [address] Neutrophils/100 WBC (Bld) 52.4 % Normal 50.0-75.0 [facility] ([place] Comment on above: Performed By: #### C BC, ADIFF, ANEU, PRO, CMP, GFR #### [address] [address] .GFRon 04-15-2019 GFR >60 Normal [facility] ([place] Comment on above: Result Comment: GFR Population mean for , Non- Americans Ages 20-29 = 116 mL/min/1.73 sq.m. Ages 30-39 = 107 mL/min/1.73 sq.m. Ages 40-49 = 99 mL/min/1.73 sq.m. Ages 50-59 = 93 mL/min/1.73 sq.m. Ages 60-69 = 85 mL/min/1.73 sq.m. Ages 70+ = 75 mL/min/1.73 sq.m. Chronic Kidney Disease: Less than 60 mL/min/1.73 square meters End Stage Renal Disease: Less than 15 mL/min/1.73 square meters Performed By: #### C BC, ADIFF, ANEU, PRO, CMP, GFR #### [address] [address] GFR Non- >60 Normal [facility] ([place]) Comment on above: Result Comment: GFR Population mean for , Non- Americans Ages 20-29 = 116 mL/min/1.73 sq.m. Ages 30-39 = 107 mL/min/1.73 sq.m. Ages 40-49 = 99 mL/min/1.73 sq.m. Ages 50-59 = 93 mL/min/1.73 sq.m. Ages 60-69 = 85 mL/min/1.73 sq.m. Ages 70+ = 75 mL/min/1.73 sq.m. Chronic Kidney Disease: Less than 60 mL/min/1.73 square meters End Stage Renal Disease: Less than 15 mL/min/1.73 square meters Performed By: #### C BC, ADIFF, ANEU, PRO, CMP, GFR #### [address] [address] .NEUABSon 04-15-2019 Neutrophils (Bld) [#/Vol] 3.60 10 3/mcL Normal 2.25-8.10 [facility] ([place] Comment on above: Performed By: #### C BC, ADIFF, ANEU, PRO, CMP, GFR #### [address] [address] BMPon 04-15-2019 Creatinine [Mass/Vol] 0.64 mg/dL Normal 0.50-1.20 [facility] ([place]) Comment on above: Performed By: #### C BC, ADIFF, ANEU, PRO, CMP, GFR #### [place] [address] Urea nitrogen/Creatinine [Mass ratio] 17.2 ratio Normal 10.0-22.0 [facility] ([place] Comment on above: Performed By: #### C BC, ADIFF, ANEU, PRO, CMP, GFR #### [place] [address] Calcium [Mass/Vol] 7.9 mg/dL Low 8.4-10.1 [facility] ([place] Comment on above: Performed By: #### C BC, ADIFF, ANEU, PRO, CMP, GFR #### [address] [address] Chloride [Moles/Vol] 109 mmol/L Normal 98-110 [facility] ([place] Comment on above: Performed By: #### C BC, ADIFF, ANEU, PRO, CMP, GFR #### [address] [address] CO2 [Moles/Vol] 29 mmol/L Normal 22-32 [facility] ([place]) Comment on above: Performed By: #### C BC, ADIFF, ANEU, PRO, CMP, GFR #### [address] [address] Electrolyte Balance 6.0 mEq/L Normal 4.0-15.0 [facility] ([place]) Comment on above: Performed By: #### C BC, ADIFF, ANEU, PRO, CMP, GFR #### [address] [address] Glucose [Mass/Vol] 100 mg/dL Normal 82-115 [facility] [place] Comment on above: Performed By: #### C BC, ADIFF, ANEU, PRO, CMP, GFR #### [place] [id number] Potassium [Moles/Vol] 4.0 mmol/L Normal 3.5-5.0 [facility] ([place] Comment on above: Performed By: #### C BC, ADIFF, ANEU, PRO, CMP, GFR #### [place] [id number] Sodium [Moles/Vol] 144 mmol/L Normal 136-145 [facility] [place] Comment on above: Performed By: #### C BC, ADIFF, ANEU, PRO, CMP, GFR #### [place] [id number] Urea nitrogen [Mass/Vol] 11.0 mg/dL Normal 8.0-22.0 [facility] ([place]) Comment on above: Performed By: #### C BC, ADIFF, ANEU, PRO, CMP, GFR #### [address] [address] CBCon 04-15-2019 Erythrocyte distribution width (RBC) [Ratio] 13.5 % Normal 11.5-15.5 [facility] ([place] Comment on above: Performed By: #### C BC, ADIFF, ANEU, PRO, CMP, GFR #### [place] [id number] Hematocrit (Bld) [Volume fraction] 33.9 % Low 34.0-46.0 [facility] ([place] Comment on above: Performed By: #### C BC, ADIFF, ANEU, PRO, CMP, GFR #### [place] [id number] Hemoglobin (Bld) [Mass/Vol] 11.6 G/dL Low 12.0-16.0 [facility] ([place] Comment on above: Performed By: #### C BC, ADIFF, ANEU, PRO, CMP, GFR #### [place] [id number] MCH (RBC) [Entitic mass] 31.8 pg Normal 27.0-33.0 [facility] ([place] Comment on above: Performed By: #### C BC, ADIFF, ANEU, PRO, CMP, GFR #### [place] [id number] MCHC (RBC) [Mass/Vol] 34.3 G/dL Normal 32.0-36.0 [facility] ([place] Comment on above: Performed By: #### C BC, ADIFF, ANEU, PRO, CMP, GFR #### [place] [id number] MCV (RBC) [Entitic vol] 92.7 fL Normal 80.0-99.0 [facility] ([place] Comment on above: Performed By: #### C BC, ADIFF, ANEU, PRO, CMP, GFR #### [place] [id number] Platelet mean volume (Bld) [Entitic vol] 8.6 fL Normal 6.6-10.5 [facility] ([place] Comment on above: Performed By: #### C BC, ADIFF, ANEU, PRO, CMP, GFR #### [place] [id number] Platelets (Bld) [#/Vol] 198 10 3/mcL Normal 150-450 [facility] ([place] Comment on above: Performed By: #### C BC, ADIFF, ANEU, PRO, CMP, GFR #### [place] [id number] RBC (Bld) [#/Vol] 3.65 10 6/mcL Low 4.10-5.30 [facility] ([place]) Comment on above: Performed By: #### C BC, ADIFF, ANEU, PRO, CMP, GFR #### [place] [id number] WBC (Bld) [#/Vol] 6.90 10 3/mcL Normal 4.50-10.80 [facility] ([place]) Comment on above: Performed By: #### C BC, ADIFF, ANEU, PRO, CMP, GFR #### [address] [address] MGon 04-15-2019 Magnesium [Mass/Vol] 2.2 mg/dL Normal 1.6-2.4 [facility] ([place] Comment on above: Performed By: #### C BC, ADIFF, ANEU, PRO, CMP, GFR #### [address] [address] PROon 04-15-2019 INR Coag (PPP) [Relative time] 2.0 {INR} Normal [facility] ([place] Comment on above: Order Comment: order ed secondary to warfarin order Result Comment: [employer] [place] (CHEST, 1992, 102:312S-25S) recommended therapeutic range for oral anticoagulant therapy is: LOW RISK: Prophylaxis of venous thrombosis INR: 2.0-3.0 Treatment of pulmonary embolism 2.0-3.0 Prevention of systemic embolism 2.0-3.0 HIGH RISK: Mechanical prosthetic valves 2.5-3.5 Performed By: #### C BC, ADIFF, ANEU, PRO, CMP, GFR #### [place] [address] PT Coag (PPP) [Time] 23.4 s High 9.0-14.6 [facility] ([place] Comment on above: Order Comment: order ed secondary to warfarin order Result Comment: Effe ctive 12/11/07, Protime results may be affected by some antibiotics (i.e. Ciprofloxacin, Azithromycin, Bactrim) which may potentiate the action of oral anticoagulants, with further increases in Protime/INR. Performed By: #### C BC, ADIFF, ANEU, PRO, CMP, GFR #### [address] [address] .Auto Diffon 04-14-2019 Ammonia (P) [Mass/Vol] 0.40 10 3/mcL Normal 0.09-1.40 [facility] ([place] Comment on above: Performed By: #### C BC, ADIFF, ANEU, PRO, CMP, GFR #### [address] [address] Basophils (Bld) [#/Vol] 0.00 10 3/mcL Normal 0.00-0.27 [facility] ([place] Comment on above: Performed By: #### C BC, ADIFF, ANEU, PRO, CMP, GFR #### [address] [address] Basophils/100 WBC (Bld) 0.6 % Normal 0.0-2.5 [facility] ([place]) Comment on above: Performed By: #### C BC, ADIFF, ANEU, PRO, CMP, GFR #### [address] [address] Eosinophils (Bld) [#/Vol] 0.30 10 3/mcL Normal 0.00-0.65 [facility] ([place]) Comment on above: Performed By: #### C BC, ADIFF, ANEU, PRO, CMP, GFR #### [address] [address] Eosinophils/100 WBC (Bld) 5.1 % Normal 0.0-6.0 [facility] ([place]) Comment on above: Performed By: #### C BC, ADIFF, ANEU, PRO, CMP, GFR #### [address] [address] Lymphocytes (Bld) [#/Vol] 2.30 10 3/mcL Normal 0.90-4.32 [facility] ([place]) Comment on above: Performed By: #### C BC, ADIFF, ANEU, PRO, CMP, GFR #### [address] [address] Lymphocytes/100 WBC (Bld) 35.3 % Normal 20.0-40.0 [facility] ([place]) Comment on above: Performed By: #### C BC, ADIFF, ANEU, PRO, CMP, GFR #### [address] [address] Monocytes/100 WBC (Bld) 6.9 % Normal 2.0-13.0 [facility] ([place]) Comment on above: Performed By: #### C BC, ADIFF, ANEU, PRO, CMP, GFR #### [address] [address] Neutrophils/100 WBC (Bld) 52.1 % Normal 50.0-75.0 [facility] ([place] Comment on above: Performed By: #### C BC, ADIFF, ANEU, PRO, CMP, GFR #### [address] [address] .GFRon 04-14-2019 GFR >60 Normal [facility] ([place] Comment on above: Result Comment: GFR Population mean for , Non- Americans Ages 20-29 = 116 mL/min/1.73 sq.m. Ages 30-39 = 107 mL/min/1.73 sq.m. Ages 40-49 = 99 mL/min/1.73 sq.m. Ages 50-59 = 93 mL/min/1.73 sq.m. Ages 60-69 = 85 mL/min/1.73 sq.m. Ages 70+ = 75 mL/min/1.73 sq.m. Chronic Kidney Disease: Less than 60 mL/min/1.73 square meters End Stage Renal Disease: Less than 15 mL/min/1.73 square meters Performed By: #### C BC, ADIFF, ANEU, PRO, CMP, GFR #### [address] [address] GFR Non- >60 Normal [facility] ([place] Comment on above: Result Comment: GFR Population mean for , Non- Americans Ages 20-29 = 116 mL/min/1.73 sq.m. Ages 30-39 = 107 mL/min/1.73 sq.m. Ages 40-49 = 99 mL/min/1.73 sq.m. Ages 50-59 = 93 mL/min/1.73 sq.m. Ages 60-69 = 85 mL/min/1.73 sq.m. Ages 70+ = 75 mL/min/1.73 sq.m. Chronic Kidney Disease: Less than 60 mL/min/1.73 square meters End Stage Renal Disease: Less than 15 mL/min/1.73 square meters Performed By: #### C BC, ADIFF, ANEU, PRO, CMP, GFR #### [address] [address] .NEUABSon 04-14-2019 Neutrophils (Bld) [#/Vol] 3.30 10 3/mcL Normal 2.25-8.10 [facility] ([place] Comment on above: Performed By: #### C BC, ADIFF, ANEU, PRO, CMP, GFR #### [address] [address] A1Con 04-14-2019 HbA1c (Bld) [Mass fraction] 6.1 % High 4.0-6.0 [facility] ([place] Comment on above: Performed By: #### C BC, ADIFF, ANEU, PRO, CMP, GFR #### [address] [address] BMPon 04-14-2019 Calcium [Mass/Vol] 7.8 mg/dL Low 8.4-10.1 [facility] [place] Comment on above: Performed By: #### C BC, ADIFF, ANEU, PRO, CMP, GFR #### [address] [address] Chloride [Moles/Vol] 107 mmol/L Normal 98-110 [facility] ([place] Comment on above: Performed By: #### C BC, ADIFF, ANEU, PRO, CMP, GFR #### [address] [address] CO2 [Moles/Vol] 30 mmol/L Normal 22-32 [facility] ([place] Comment on above: Performed By: #### C BC, ADIFF, ANEU, PRO, CMP, GFR #### [address] [address] Creatinine [Mass/Vol] 0.66 mg/dL Normal 0.50-1.20 [facility] ([place]) Comment on above: Performed By: #### C BC, ADIFF, ANEU, PRO, CMP, GFR #### [address] [address] Electrolyte Balance 5.0 mEq/L Normal 4.0-15.0 [facility] ([place]) Comment on above: Performed By: #### C BC, ADIFF, ANEU, PRO, CMP, GFR #### [address] [address] Glucose [Mass/Vol] 102 mg/dL Normal 82-115 [facility] [place] Comment on above: Performed By: #### C BC, ADIFF, ANEU, PRO, CMP, GFR #### [address] [address] Potassium [Moles/Vol] 3.9 mmol/L Normal 3.5-5.0 [facility] ([place] Comment on above: Performed By: #### C BC, ADIFF, ANEU, PRO, CMP, GFR #### [address] [address] Sodium [Moles/Vol] 142 mmol/L Normal 136-145 [facility] [place] Comment on above: Performed By: #### C BC, ADIFF, ANEU, PRO, CMP, GFR #### [place] [id number] Urea nitrogen [Mass/Vol] 13.0 mg/dL Normal 8.0-22.0 [facility] ([place]) Comment on above: Performed By: #### C BC, ADIFF, ANEU, PRO, CMP, GFR #### [place] [id number] Urea nitrogen/Creatinine [Mass ratio] 19.7 ratio Normal 10.0-22.0 [facility] ([place]) Comment on above: Performed By: #### C BC, ADIFF, ANEU, PRO, CMP, GFR #### [address] [address] CBCon 04-14-2019 Erythrocyte distribution width (RBC) [Ratio] 13.1 % Normal 11.5-15.5 [facility] ([place] Comment on above: Performed By: #### C BC, ADIFF, ANEU, PRO, CMP, GFR #### [address] [address] Hematocrit (Bld) [Volume fraction] 33.9 % Low 34.0-46.0 [facility] ([place]) Comment on above: Performed By: #### C BC, ADIFF, ANEU, PRO, CMP, GFR #### [place] [id number] Hemoglobin (Bld) [Mass/Vol] 11.6 G/dL Low 12.0-16.0 [facility] ([place] Comment on above: Performed By: #### C BC, ADIFF, ANEU, PRO, CMP, GFR #### [place] [id number] MCH (RBC) [Entitic mass] 31.9 pg Normal 27.0-33.0 [facility] ([place] Comment on above: Performed By: #### C BC, ADIFF, ANEU, PRO, CMP, GFR #### [place] [id number] MCHC (RBC) [Mass/Vol] 34.2 G/dL Normal 32.0-36.0 [facility] ([place] Comment on above: Performed By: #### C BC, ADIFF, ANEU, PRO, CMP, GFR #### [place] [id number] MCV (RBC) [Entitic vol] 93.4 fL Normal 80.0-99.0 [facility] ([place] Comment on above: Performed By: #### C BC, ADIFF, ANEU, PRO, CMP, GFR #### [place] [id number] Platelet mean volume (Bld) [Entitic vol] 9.2 fL Normal 6.6-10.5 [facility] ([place] Comment on above: Performed By: #### C BC, ADIFF, ANEU, PRO, CMP, GFR #### [place] [id number] Platelets (Bld) [#/Vol] 197 10 3/mcL Normal 150-450 [facility] ([place]) Comment on above: Performed By: #### C BC, ADIFF, ANEU, PRO, CMP, GFR #### [place] [id number] RBC (Bld) [#/Vol] 3.63 10 6/mcL Low 4.10-5.30 [facility] ([place]) Comment on above: Performed By: #### C BC, ADIFF, ANEU, PRO, CMP, GFR #### [place] [address] WBC (Bld) [#/Vol] 6.40 10 3/mcL Normal 4.50-10.80 [facility] ([place]) Comment on above: Performed By: #### C BC, ADIFF, ANEU, PRO, CMP, GFR #### [place] [address] MGon 04-14-2019 Magnesium [Mass/Vol] 2.1 mg/dL Normal 1.6-2.4 [facility] ([place] Comment on above: Performed By: #### C BC, ADIFF, ANEU, PRO, CMP, GFR #### [place] [address] PROon 04-14-2019 INR Coag (PPP) [Relative time] 1.8 {INR} Normal [facility] ([place] Comment on above: Order Comment: order ed secondary to warfarin order Result Comment: [employer] [place] (CHEST, 1992, 102:312S-25S) recommended therapeutic range for oral anticoagulant therapy is: LOW RISK: Prophylaxis of venous thrombosis INR: 2.0-3.0 Treatment of pulmonary embolism 2.0-3.0 Prevention of systemic embolism 2.0-3.0 HIGH RISK: Mechanical prosthetic valves 2.5-3.5 Performed By: #### C BC, ADIFF, ANEU, PRO, CMP, GFR #### [place] [id number] PT Coag (PPP) [Time] 21.7 s High 9.0-14.6 [facility] ([place]) Comment on above: Order Comment: order ed secondary to warfarin order Result Comment: Effe ctive 12/11/07, Protime results may be affected by some antibiotics (i.e. Ciprofloxacin, Azithromycin, Bactrim) which may potentiate the action of oral anticoagulants, with further increases in Protime/INR. Performed By: #### C BC, ADIFF, ANEU, PRO, CMP, GFR #### [place] [address] .Auto Diffon 04-13-2019 Ammonia (P) [Mass/Vol] 0.60 10 3/mcL Normal 0.09-1.40 [facility] ([place] Comment on above: Performed By: #### C BC, ADIFF, ANEU, BMP, GFR, LIPID, TROPI #### [address] [address] Basophils (Bld) [#/Vol] 0.00 10 3/mcL Normal 0.00-0.27 [facility] ([place]) Comment on above: Performed By: #### C BC, ADIFF, ANEU, BMP, GFR, LIPID, TROPI #### [address] [address] Basophils/100 WBC (Bld) 0.6 % Normal 0.0-2.5 [facility] ([place]) Comment on above: Performed By: #### C BC, ADIFF, ANEU, BMP, GFR, LIPID, TROPI #### [address] [address] Eosinophils (Bld) [#/Vol] 0.30 10 3/mcL Normal 0.00-0.65 [facility] ([place] Comment on above: Performed By: #### C BC, ADIFF, ANEU, BMP, GFR, LIPID, TROPI #### [address] [address] Eosinophils/100 WBC (Bld) 4.5 % Normal 0.0-6.0 [facility] ([place] Comment on above: Performed By: #### C BC, ADIFF, ANEU, BMP, GFR, LIPID, TROPI #### [address] [address] Lymphocytes (Bld) [#/Vol] 2.60 10 3/mcL Normal 0.90-4.32 [facility] ([place] Comment on above: Performed By: #### C BC, ADIFF, ANEU, BMP, GFR, LIPID, TROPI #### [address] [address] Lymphocytes/100 WBC (Bld) 34.8 % Normal 20.0-40.0 [facility] ([place]) Comment on above: Performed By: #### C BC, ADIFF, ANEU, BMP, GFR, LIPID, TROPI #### [address] [address] Monocytes/100 WBC (Bld) 7.5 % Normal 2.0-13.0 [facility] ([place] Comment on above: Performed By: #### C BC, ADIFF, ANEU, BMP, GFR, LIPID, TROPI #### [address] [address] Neutrophils/100 WBC (Bld) 52.6 % Normal 50.0-75.0 [facility] ([place]) Comment on above: Performed By: #### C BC, ADIFF, ANEU, BMP, GFR, LIPID, TROPI #### [address] [address] .GFRon 04-13-2019 GFR Non- >60 Normal [facility] ([place]) Comment on above: Result Comment: GFR Population mean for , Non- Americans Ages 20-29 = 116 mL/min/1.73 sq.m. Ages 30-39 = 107 mL/min/1.73 sq.m. Ages 40-49 = 99 mL/min/1.73 sq.m. Ages 50-59 = 93 mL/min/1.73 sq.m. Ages 60-69 = 85 mL/min/1.73 sq.m. Ages 70+ = 75 mL/min/1.73 sq.m. Chronic Kidney Disease: Less than 60 mL/min/1.73 square meters End Stage Renal Disease: Less than 15 mL/min/1.73 square meters Performed By: #### C BC, ADIFF, ANEU, PRO, CMP, GFR #### [address] [address] GFR >60 Normal [facility] ([place] Comment on above: Result Comment: GFR Population mean for , Non- Americans Ages 20-29 = 116 mL/min/1.73 sq.m. Ages 30-39 = 107 mL/min/1.73 sq.m. Ages 40-49 = 99 mL/min/1.73 sq.m. Ages 50-59 = 93 mL/min/1.73 sq.m. Ages 60-69 = 85 mL/min/1.73 sq.m. Ages 70+ = 75 mL/min/1.73 sq.m. Chronic Kidney Disease: Less than 60 mL/min/1.73 square meters End Stage Renal Disease: Less than 15 mL/min/1.73 square meters Performed By: #### C BC, ADIFF, ANEU, PRO, CMP, GFR #### [address] [address] .NEUABSon 04-13-2019 Neutrophils (Bld) [#/Vol] 4.00 10 3/mcL Normal 2.25-8.10 [facility] ([place] Comment on above: Performed By: #### C BC, ADIFF, ANEU, PRO, CMP, GFR #### [place] [address] BMPon 04-13-2019 Calcium [Mass/Vol] 7.8 mg/dL Low 8.4-10.1 [facility] [place] Comment on above: Performed By: #### C BC, ADIFF, ANEU, PRO, CMP, GFR #### [place] [address] Chloride [Moles/Vol] 106 mmol/L Normal 98-110 [facility] ([place]) Comment on above: Performed By: #### C BC, ADIFF, ANEU, PRO, CMP, GFR #### [place] [address] CO2 [Moles/Vol] 31 mmol/L Normal 22-32 [facility] ([place]) Comment on above: Performed By: #### C BC, ADIFF, ANEU, PRO, CMP, GFR #### [place] [address] Creatinine [Mass/Vol] 0.74 mg/dL Normal 0.50-1.20 [facility] ([place]) Comment on above: Performed By: #### C BC, ADIFF, ANEU, PRO, CMP, GFR #### [place] [address] Electrolyte Balance 6.0 mEq/L Normal 4.0-15.0 [facility] ([place]) Comment on above: Performed By: #### C BC, ADIFF, ANEU, PRO, CMP, GFR #### [place] [id number] Glucose [Mass/Vol] 107 mg/dL Normal 82-115 [facility] ([place] Comment on above: Performed By: #### C BC, ADIFF, ANEU, PRO, CMP, GFR #### [place] [id number] Potassium [Moles/Vol] 4.0 mmol/L Normal 3.5-5.0 [facility] ([place] Comment on above: Performed By: #### C BC, ADIFF, ANEU, PRO, CMP, GFR #### [place] [id number] Sodium [Moles/Vol] 143 mmol/L Normal 136-145 [facility] ([place] Comment on above: Performed By: #### C BC, ADIFF, ANEU, PRO, CMP, GFR #### [place] [address] Urea nitrogen [Mass/Vol] 16.0 mg/dL Normal 8.0-22.0 [facility] ([place] Comment on above: Performed By: #### C BC, ADIFF, ANEU, PRO, CMP, GFR #### [place] [address] Urea nitrogen/Creatinine [Mass ratio] 21.6 ratio Normal 10.0-22.0 [facility] ([place]) Comment on above: Performed By: #### C BC, ADIFF, ANEU, PRO, CMP, GFR #### [address] [address] CBCon 04-13-2019 WBC (Bld) [#/Vol] 7.50 10 3/mcL Normal 4.50-10.80 [facility] ([place]) Comment on above: Result Comment: No n ormals available: specimen drawn from IV arm. Performed By: #### C BC, ADIFF, ANEU, BMP, GFR, LIPID, TROPI #### [place] [id number] Erythrocyte distribution width (RBC) [Ratio] 13.5 % Normal 11.5-15.5 [facility] ([place] Comment on above: Performed By: #### C BC, ADIFF, ANEU, BMP, GFR, LIPID, TROPI #### [place] [id number] Hematocrit (Bld) [Volume fraction] 32.9 % Low 34.0-46.0 [facility] ([place] Comment on above: Performed By: #### C BC, ADIFF, ANEU, BMP, GFR, LIPID, TROPI #### [place] [id number] Hemoglobin (Bld) [Mass/Vol] 10.9 G/dL Low 12.0-16.0 [facility] ([place] Comment on above: Performed By: #### C BC, ADIFF, ANEU, BMP, GFR, LIPID, TROPI #### [place] [id number] MCH (RBC) [Entitic mass] 31.2 pg Normal 27.0-33.0 [facility] ([place] Comment on above: Performed By: #### C BC, ADIFF, ANEU, BMP, GFR, LIPID, TROPI #### [place] [id number] MCHC (RBC) [Mass/Vol] 33.2 G/dL Normal 32.0-36.0 [facility] ([place] Comment on above: Performed By: #### C BC, ADIFF, ANEU, BMP, GFR, LIPID, TROPI #### [place] [id number] MCV (RBC) [Entitic vol] 94.0 fL Normal 80.0-99.0 [facility] ([place] Comment on above: Performed By: #### C BC, ADIFF, ANEU, BMP, GFR, LIPID, TROPI #### [place] [id number] Platelet mean volume (Bld) [Entitic vol] 8.4 fL Normal 6.6-10.5 [facility] ([place] Comment on above: Performed By: #### C BC, ADIFF, ANEU, BMP, GFR, LIPID, TROPI #### [facility] [address] [place] [address] Platelets (Bld) [#/Vol] 188 10 3/mcL Normal 150-450 [facility] ([place]) Comment on above: Performed By: #### C BC, ADIFF, ANEU, BMP, GFR, LIPID, TROPI #### [facility] [address] [place] [address] RBC (Bld) [#/Vol] 3.49 10 6/mcL Low 4.10-5.30 [facility] ([place]) Comment on above: Performed By: #### C BC, ADIFF, ANEU, BMP, GFR, LIPID, TROPI #### [facility] [address] [place] [address] ANGIOGRAPHY HEAD W/ CONTR Tariq 04-13-2019 CT ANGIOGRAPHY HEAD W/ CONTRAST ORIGINAL CT Angiogram of the head, 04/13/2019 4:57 PM INDICATION: right side weakness COMPARISON: No TECHNIQUE: CT angiography of the head following uncomplicated administration of intravenous contrast, with 3D post-acquisition processing, and with results displayed in source images, sagittal reformats throught the carotid siphons, maximum intensity projections and volume rendered images. This exam was performed according to our departmental dose optimization program, and includes the following measures where applicable: automated exposure control, adjustment of the mAs and/or kVp according to patient size and/or exam, and an iterative reconstruction algorithm. FINDINGS: The study is of poor to fair technical quality. There are mild atherosclerotic changes to the cavernous internal carotid arteries. There is mild irregularity of a few of the more distal vessels, particularly the pericallosal arteries. The major vessels of the posterior circulation are unremarkable in appearance. There is a circulatory pattern on the right. IMPRESSION: No large vessel occlusion. Mild atherosclerotic changes to the cavernous internal carotid arteries. Mild focal narrowing of the pericallosal arteries. Interpreted By: Westley Storm MD Preliminary Report By: Westley Storm MD Electronically Signed By: Westley Storm MD Dictated Date: 04/13/2019 8:43:37 PM Prelim Date: 04/13/2019 8:43:37 PM Sign Date: 04/13/2019 8:46:53 PM Ordering Provider:Naomie Solano [facility] ([place]) CT ANGIOGRAPHY NECK W/CONTRA STon 04-13-2019 CT ANGIOGRAPHY NECK W/CONTRAST ORIGINAL CT ANGIOGRAPHY NECK W/CONTRAST CLINICAL STATEMENT: right side weakness TECHNIQUE: Nonionic intravenous contrast material was administered and axial images were obtained through the neck per standard CTA protocol. Multiplanar reformatted and shaded-surface display and three dimensional volume rendered images were generated. Where applicable, evaluation of ICA stenosis was performed using the site of greatest stenosis is compared to the diameter of the ICA distal to the stenosis at a point where the ICA jon become parallel. This exam was performed according to our departmental dose optimization program, and includes the following measures where applicable: automated exposure control, adjustment of the mAs and/or kVp according to patient size and/or exam, and an iterative reconstruction algorithm. COMPARISON: MRI brain and CTA head performed today FINDINGS: There is a two-vessel aortic arch, a normal variant. Atherosclerotic calcifications are present at the aortic arch and the origins of the branch vessels, no significant stenosis is demonstrated at the origin of the branch vessels. There is significant patient motion which renders evaluation of the degree of stenosis of the proximal internal carotid arteries unmeasurable There is atherosclerotic disease at the carotid bulbs bilaterally. The common carotid arteries, external carotid arteries and internal carotid arteries do appear to maintain patency. The cervical vertebral arteries are patent. The proximal posterior inferior cerebellar arteries are visualized and appear patent. Thyroid gland is grossly unremarkable. Overall, evaluation of soft tissues of the neck is limited due to patient motion. A RIGHT breast implant is partially visualized. Motion artifact limits assessment of the lung apices. There is scarring or atelectasis at the LEFT lung apex. There is mosaic attenuation at the apices, suggestive of air trapping. Partial visualization of sternotomy wires. There are multilevel degenerative changes of the cervical spine. IMPRESSION: The exam is significantly degraded by patient motion. As a result, accurate determination of degree of internal carotid artery stenosis is not possible. There does not appear to be occlusion of the carotid arteries or vertebral arteries. I have personally reviewed the images of this examination and agree with the resident's findings and interpretation. Interpreted By: Westley Storm MD Preliminary Report By: Gomez Patel MD Electronically Signed By: Westley Storm MD Dictated Date: 04/13/2019 7:48:37 PM Prelim Date: 04/13/2019 7:57:39 PM Sign Date: 04/13/2019 8:25:57 PM Ordering Provider:Naomie Maurice Normal [facility] ([place]) LIPIDon 04-13-2019 Cholesterol in HDL [Mass/Vol] 30 mg/dL Low 40-59 [facility] ([place]) Comment on above: Result Comment: HDL Reference Interval: Less than 40 Low - high risk 60 or above Optimal/lowers risk Performed By: #### C BC, ADIFF, ANEU, PRO, CMP, GFR #### [address] [address] Cholesterol in LDL [Mass/Vol] 78 mg/dL Normal 0-129 [facility] ([place]) Comment on above: Result Comment: LDL is a calculated result and requires a 12- hr fast. LDL Reference Interval: Less than 100 Optimal 100-129 Near or above optimal 130-159 Borderline high risk 160-189 High risk 190 and above Very high risk Performed By: #### C BC, ADIFF, ANEU, PRO, CMP, GFR #### [address] [address] Cholesterol [Mass/Vol] 135 mg/dL Normal 50-199 [facility] ([place]) Comment on above: Result Comment: Chol esterol Reference Interval: Less than 200 Desirable 200-239 Borderline high risk 240 and above High risk Performed By: #### C BC, ADIFF, ANEU, PRO, CMP, GFR #### [address] [address] Triglyceride [Mass/Vol] 134 mg/dL Normal 3-149 [facility] ([place] Comment on above: Result Comment: Trig lyceride Reference Interval: Less than 150 Normal 150-199 Borderline high risk 200-499 High risk 500 or higher Very high risk Performed By: #### C BC, ADIFF, ANEU, PRO, CMP, GFR #### [facility] [address] [place] [address] MRI BRAIN W/O CONTRASTon MRI BRAIN W/O CONTRAST ORIGINAL MRI BRAIN W/O CONTRAST Clinical Statement: Stroke. RIGHT arm and leg weakness. TECHNIQUE: Sagittal T1, axial FLAIR, T2 and diffusion-weighted images of the brain with ADC maps. COMPARISON: None. FINDINGS: There is abnormal diffusion restriction and FLAIR hyperintensity at the posterior limb of the internal capsule and adjacent thalamus on the LEFT consistent with acute infarct. There is no mass, mass-effect, or abnormal extra-axial fluid collection. There is a small transcortical remote RIGHT frontal infarct at the middle frontal gyrus. Patchy FLAIR hyperintensities in the brain parenchyma are nonspecific but statistically most consistent with moderate chronic microvascular angiopathy. The ventricles are normal in size, shape and position. There are normal signal voids in the larger intracranial vessels. Paranasal sinuses are clear. The mastoid air cells are clear. The marrow signal pattern is within normal limits. IMPRESSION: Acute lacunar infarct at the posterior limb of the internal capsule and adjacent thalamus on the LEFT. Interpreted By: Rome Reyez Preliminary Report By: Rome Reyez Electronically Signed By: Rome Reyez Dictated Date: 04/13/2019 11:37:02 AM Prelim Date: 04/13/2019 11:37:02 AM Sign Date: 04/13/2019 11:39:49 AM Ordering Provider:Naomie Solano [facility] ([place]) PROon 04-13-2019 INR Coag (PPP) [Relative time] 1.8 {INR} Normal [facility] ([place]) Comment on above: Order Comment: order ed secondary to warfarin order Result Comment: [employer] (CHEST, 1992, 102:312S-[id number]) recommended therapeutic range for oral anticoagulant therapy is: LOW RISK: Prophylaxis of venous thrombosis INR: 2.0-3.0 Treatment of pulmonary embolism 2.0-3.0 Prevention of systemic embolism 2.0-3.0 HIGH RISK: Mechanical prosthetic valves 2.5-3.5 Performed By: #### C CRISTÓBAL, SIXTOIFF, ANEU, PRO, CMP, GFR #### [address] [address] PT Coag (PPP) [Time] 21.0 s High 9.0-14.6 [facility] ([place]) Comment on above: Order Comment: order ed secondary to warfarin order Result Comment: Effe ctive 12/11/07, Protime results may be affected by some antibiotics (i.e. Ciprofloxacin, Azithromycin, Bactrim) which may potentiate the action of oral anticoagulants, with further increases in Protime/INR. Performed By: #### C CRISTÓBAL, SIXTOIFF, ANEU, PRO, CMP, GFR #### [place] [address] [place] [address] [facility] 04-13-2019 Troponin I.cardiac [Mass/Vol] ng/mL Normal 0.000-0.040 [facility] ([place]) Comment on above: Result Comment: Trop onin I reference ranges (02/03/14): 0.00-0.040 ng/mL Negative and non-diagnostic. >0.040 ng/mL Consistent with cardiac damage, increased clinical risk and possibility of myocardial infarction. Serial measurements, a rise & fall in test results, clinical history, appropriate symptoms and/or ECG changes may help assess possibility of OK. *Other non-acute coronary syndrome conditions such as CHF, myocarditis, pulmonary emboli, sepsis and cardiac surgery could result in myocardial damage and increased troponin levels. Performed By: #### C BC, ADIFF, ANEU, PRO, CMP, GFR #### [place] [address] Troponin I.cardiac [Mass/Vol] ng/mL Normal 0.000-0.040 [facility] ([place]) Comment on above: Result Comment: Trop onin I reference ranges (02/03/14): 0.00-0.040 ng/mL Negative and non-diagnostic. >0.040 ng/mL Consistent with cardiac damage, increased clinical risk and possibility of myocardial infarction. Serial measurements, a rise & fall in test results, clinical history, appropriate symptoms and/or ECG changes may help assess possibility of OK. *Other non-acute coronary syndrome conditions such as CHF, myocarditis, pulmonary emboli, sepsis and cardiac surgery could result in myocardial damage and increased troponin levels. Performed By: #### T ROPI #### [place] [id number] Troponin I.cardiac [Mass/Vol] ng/mL Normal 0.000-0.040 [facility] ([place]) Comment on above: Result Comment: Trop onin I reference ranges (02/03/14): 0.00-0.040 ng/mL Negative and non-diagnostic. >0.040 ng/mL Consistent with cardiac damage, increased clinical risk and possibility of myocardial infarction. Serial measurements, a rise & fall in test results, clinical history, appropriate symptoms and/or ECG changes may help assess possibility of OK. *Other non-acute coronary syndrome conditions such as CHF, myocarditis, pulmonary emboli, sepsis and cardiac surgery could result in myocardial damage and increased troponin levels. Performed By: #### T ROPI #### [address] [address] .Auto Diffon 04-12-2019 Ammonia (P) [Mass/Vol] 0.60 10 3/mcL Normal 0.09-1.40 [facility] ([place]) Comment on above: Performed By: #### C BC, ADIFF, ANEU, PRO, CMP, GFR #### [address] [address] Basophils (Bld) [#/Vol] 0.10 10 3/mcL Normal 0.00-0.27 [facility] ([place]) Comment on above: Performed By: #### C BC, ADIFF, ANEU, PRO, CMP, GFR #### [address] [address] Basophils/100 WBC (Bld) 0.6 % Normal 0.0-2.5 [facility] ([place]) Comment on above: Performed By: #### C BC, ADIFF, ANEU, PRO, CMP, GFR #### [address] [address] Eosinophils (Bld) [#/Vol] 0.40 10 3/mcL Normal 0.00-0.65 [facility] ([place]) Comment on above: Performed By: #### C BC, ADIFF, ANEU, PRO, CMP, GFR #### [address] [address] Eosinophils/100 WBC (Bld) 4.4 % Normal 0.0-6.0 [facility] ([place]) Comment on above: Performed By: #### C BC, ADIFF, ANEU, PRO, CMP, GFR #### [address] [address] Lymphocytes (Bld) [#/Vol] 3.20 10 3/mcL Normal 0.90-4.32 [facility] ([place]) Comment on above: Performed By: #### C BC, ADIFF, ANEU, PRO, CMP, GFR #### [address] [address] Lymphocytes/100 WBC (Bld) 37.2 % Normal 20.0-40.0 [facility] ([place]) Comment on above: Performed By: #### C BC, ADIFF, ANEU, PRO, CMP, GFR #### [address] [address] Monocytes/100 WBC (Bld) 6.7 % Normal 2.0-13.0 [facility] ([place]) Comment on above: Performed By: #### C BC, ADIFF, ANEU, PRO, CMP, GFR #### [address] [address] Neutrophils/100 WBC (Bld) 51.1 % Normal 50.0-75.0 [facility] ([place]) Comment on above: Performed By: #### C BC, ADIFF, ANEU, PRO, CMP, GFR #### [address] [address] .GFRon 04-12-2019 GFR >60 Normal [facility] ([place]) Comment on above: Result Comment: GFR Population mean for , Non- Americans Ages 20-29 = 116 mL/min/1.73 sq.m. Ages 30-39 = 107 mL/min/1.73 sq.m. Ages 40-49 = 99 mL/min/1.73 sq.m. Ages 50-59 = 93 mL/min/1.73 sq.m. Ages 60-69 = 85 mL/min/1.73 sq.m. Ages 70+ = 75 mL/min/1.73 sq.m. Chronic Kidney Disease: Less than 60 mL/min/1.73 square meters End Stage Renal Disease: Less than 15 mL/min/1.73 square meters Performed By: #### C BC, ADIFF, ANEU, PRO, CMP, GFR #### [address] [address] GFR Non- >60 Normal [facility] ([place]) Comment on above: Result Comment: GFR Population mean for , Non- Americans Ages 20-29 = 116 mL/min/1.73 sq.m. Ages 30-39 = 107 mL/min/1.73 sq.m. Ages 40-49 = 99 mL/min/1.73 sq.m. Ages 50-59 = 93 mL/min/1.73 sq.m. Ages 60-69 = 85 mL/min/1.73 sq.m. Ages 70+ = 75 mL/min/1.73 sq.m. Chronic Kidney Disease: Less than 60 mL/min/1.73 square meters End Stage Renal Disease: Less than 15 mL/min/1.73 square meters Performed By: #### C BC, ADIFF, ANEU, PRO, CMP, GFR #### [address] [address] .NEUABSon 04-12-2019 Neutrophils (Bld) [#/Vol] 4.40 10 3/mcL Normal 2.25-8.10 [facility] ([place] Comment on above: Performed By: #### C BC, ADIFF, ANEU, PRO, CMP, GFR #### [place] [address] CBCon 04-12-2019 Erythrocyte distribution width (RBC) [Ratio] 13.5 % Normal 11.5-15.5 [facility] ([place] Comment on above: Performed By: #### C BC, ADIFF, ANEU, PRO, CMP, GFR #### [place] [address] Hematocrit (Bld) [Volume fraction] 35.5 % Normal 34.0-46.0 [facility] ([place]) Comment on above: Performed By: #### C BC, ADIFF, ANEU, PRO, CMP, GFR #### [place] [phone] Hemoglobin (Bld) [Mass/Vol] 12.0 G/dL Normal 12.0-16.0 [facility] ([place] Comment on above: Performed By: #### C BC, ADIFF, ANEU, PRO, CMP, GFR #### [place] [phone] MCH (RBC) [Entitic mass] 32.0 pg Normal 27.0-33.0 [facility] ([place] Comment on above: Performed By: #### C BC, ADIFF, ANEU, PRO, CMP, GFR #### [address] [address] MCHC (RBC) [Mass/Vol] 33.8 G/dL Normal 32.0-36.0 [facility] ([place] Comment on above: Performed By: #### C BC, ADIFF, ANEU, PRO, CMP, GFR #### [address] [address] MCV (RBC) [Entitic vol] 94.7 fL Normal 80.0-99.0 [facility] ([place]) Comment on above: Performed By: #### C BC, ADIFF, ANEU, PRO, CMP, GFR #### [address] [address] Platelet mean volume (Bld) [Entitic vol] 8.7 fL Normal 6.6-10.5 [facility] ([place]) Comment on above: Performed By: #### C BC, ADIFF, ANEU, PRO, CMP, GFR #### [place] [id number] Platelets (Bld) [#/Vol] 209 10 3/mcL Normal 150-450 [facility] ([place]) Comment on above: Performed By: #### C BC, ADIFF, ANEU, PRO, CMP, GFR #### [address] [address] RBC (Bld) [#/Vol] 3.75 10 6/mcL Low 4.10-5.30 [facility] ([place]) Comment on above: Performed By: #### C BC, ADIFF, ANEU, PRO, CMP, GFR #### [place] [id number] WBC (Bld) [#/Vol] 8.60 10 3/mcL Normal 4.50-10.80 [facility] ([place]) Comment on above: Performed By: #### C BC, ADIFF, ANEU, PRO, CMP, GFR #### [address] [address] CMPon 04-12-2019 Albumin/Globulin [Mass ratio] 1.0 {ratio} Normal 0.9-1.6 [facility] ([place] Comment on above: Performed By: #### C BC, ADIFF, ANEU, PRO, CMP, GFR #### [address] [address] ALP [Catalytic activity/Vol] 72 U/L Normal 38-126 [facility] ([place] Comment on above: Performed By: #### C BC, ADIFF, ANEU, PRO, CMP, GFR #### [address] [address] Bili Total 0.3 mg/dL Normal 0.2-1.2 [facility] ([place] Comment on above: Performed By: #### C BC, ADIFF, ANEU, PRO, CMP, GFR #### [address] [address] Creatinine [Mass/Vol] 0.66 mg/dL Normal 0.50-1.20 [facility] ([place] Comment on above: Performed By: #### C BC, ADIFF, ANEU, PRO, CMP, GFR #### [place] [id number] Globulin (S) [Mass/Vol] 3.0 G/dL Normal 1.5-3.8 [facility] ([place] Comment on above: Performed By: #### C BC, ADIFF, ANEU, PRO, CMP, GFR #### [address] [address] Protein [Mass/Vol] 6.0 G/dL Normal 6.0-8.5 [facility] [place] Comment on above: Performed By: #### C BC, ADIFF, ANEU, PRO, CMP, GFR #### [address] [address] Urea nitrogen/Creatinine [Mass ratio] 27.3 ratio High 10.0-22.0 [facility] ([place] Comment on above: Performed By: #### C BC, ADIFF, ANEU, PRO, CMP, GFR #### [address] [address] Albumin [Mass/Vol] 3.0 G/dL Low 3.2-4.8 [facility] [place] Comment on above: Performed By: #### C BC, ADIFF, ANEU, PRO, CMP, GFR #### [address] [address] ALT [Catalytic activity/Vol] 24 U/L Normal 10-49 [facility] ([place] Comment on above: Performed By: #### C BC, ADIFF, ANEU, PRO, CMP, GFR #### [address] [address] AST [Catalytic activity/Vol] 20 U/L Normal 8-34 [facility] ([place] Comment on above: Performed By: #### C BC, ADIFF, ANEU, PRO, CMP, GFR #### [address] [address] Calcium [Mass/Vol] 8.2 mg/dL Low 8.4-10.1 [facility] [place] Comment on above: Performed By: #### C BC, ADIFF, ANEU, PRO, CMP, GFR #### [place] [id number] Chloride [Moles/Vol] 105 mmol/L Normal 98-110 [facility] ([place] Comment on above: Performed By: #### C BC, ADIFF, ANEU, PRO, CMP, GFR #### [address] [address] CO2 [Moles/Vol] 28 mmol/L Normal 22-32 [facility] ([place] Comment on above: Performed By: #### C BC, ADIFF, ANEU, PRO, CMP, GFR #### [address] [address] Electrolyte Balance 8.0 mEq/L Normal 4.0-15.0 [facility] ([place]) Comment on above: Performed By: #### C BC, ADIFF, ANEU, PRO, CMP, GFR #### [address] [address] Glucose [Mass/Vol] 108 mg/dL Normal 82-115 [facility] [place] Comment on above: Performed By: #### C BC, ADIFF, ANEU, PRO, CMP, GFR #### [address] [address] Potassium [Moles/Vol] 3.7 mmol/L Normal 3.5-5.0 [facility] ([place] Comment on above: Performed By: #### C BC, ADIFF, ANEU, PRO, CMP, GFR #### [place] [id number] Sodium [Moles/Vol] 141 mmol/L Normal 136-145 [facility] [place] Comment on above: Performed By: #### C BC, ADIFF, ANEU, PRO, CMP, GFR #### [place] [address] Urea nitrogen [Mass/Vol] 18.0 mg/dL Normal 8.0-22.0 [facility] ([place] Comment on above: Performed By: #### C BC, ADIFF, ANEU, PRO, CMP, GFR #### [place] [address] PROon 04-12-2019 INR Coag (PPP) [Relative time] 1.8 {INR} Normal [facility] ([place] Comment on above: Result Comment: [employer] [place] [employer] (CHEST, 1992, 102:312S-25S) recommended therapeutic range for oral anticoagulant therapy is: LOW RISK: Prophylaxis of venous thrombosis INR: 2.0-3.0 Treatment of pulmonary embolism 2.0-3.0 Prevention of systemic embolism 2.0-3.0 HIGH RISK: Mechanical prosthetic valves 2.5-3.5 Performed By: #### C BC, ADIFF, ANEU, PRO, CMP, GFR #### [place] [id number] PT Coag (PPP) [Time] 20.9 s High 9.0-14.6 [facility] ([place]) Comment on above: Result Comment: Effe ctive 12/11/07, Protime results may be affected by some antibiotics (i.e. Ciprofloxacin, Azithromycin, Bactrim) which may potentiate the action of oral anticoagulants, with further increases in Protime/INR. Performed By: #### C BC, ADIFF, ANEU, PRO, CMP, GFR #### [place] [address] CNCOon 09-08-2017 CNCO Letter Text Ppg Card [place] [address]Ytti: [phone] Kyfqmsq E. Shafer, [facility] HOSPITALprme 2017Shnichol Esparza Xvonpnmu7241 [facility] [id number] Colette Esparza Dylan,We missed seeing you for your scheduled appointment with Dr. Valdes on09/05/17.Our goal is to offer the best possible care to our patients, so we areconcerned when you are unable to keep a scheduled appointment.Please call us at [phone] so that we can reschedule your appointment fora day and time that will work for you.If you find it difficult to keep your appointment, please notify our officeat least 24 hours in advance so that we may reschedule your appointment.We are glad that you have chosen [facility] for yourcardiovascular needs and hope to continue serving you in the future.Sincerely,Fredo Valdes MD(Signed electronically to expedite mailing) [facility] CNCOon 07-20-2017 CNCO Letter TextPhone: Ramironichol Vilma Jzrotkwe2706 [facility] [id number] #: [id number] ,Due to a change in the provider's schedule it has been necessary toreschedule your Appointment.Your original appointment was scheduled for September 12, 2017 at 2 PM withKamar Franklin M.D.Your new appointment is now scheduled on October 24, 2017 at 2:20 PM with Keyanna Donald.If this new appointment is not convenient for you, please contact our officeat [phone].Thank you for choosing the [facility] as your Healthcare Provider.Sincerely,Internal MedicineAppointment Office Normal [facility] CNOVon 06-14-2017 CNOV Office Visit ([facility]) -------COLETTE RICHARDSON ([id number]) 1935 FDate Time Provider Department06/14/17 2:45 PM 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 (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) [facility] During your visit today, we recorded the following information about you: Temperature Pulse Respiration Blood pressure 97.3 degrees 70/minute 16/minute 130/80 Weight 81.2 kgRufino Cintron CNP, SCARLETT 06/14/2017 6:14 PM SignedHPIPatient presents with:Nasal Congestion: nasal drainage, some wheezing, right ear pain x 1 weekHx of COPD, bronchitis, pneumoniaTylenol otc with minimal relief.ROSPAST MEDICAL HISTORYDiagnosis Date- Acute gastritis without mention of hemorrhage- Allergic rhinitis, cause unspecified 01/24/2005- Anxiety state, unspecified 01/24/2005- Asthma- Atrial fibrillation (HCC)- Breast cancer ([facility]) 1989 Right- Chronic obstructive pulmonary disease (COPD) ([facility])- 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 11/25/2016- Coronary atherosclerosis of unspecified type of vessel, flandreau or graft01/24/2005 Stent to LAD, RCA 2003.- Depressive disorder, not elsewhere classified 10/15/2008- Diverticulosis of colon (without mention of hemorrhage)- DVT (deep venous thrombosis) ([facility]) 03/04/2009- Dysmetabolic syndrome X 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- Female stress incontinence 01/24/2005- Intestinal adhesions 07/09/2011- Lumbago 06/17/09 low back pain- Malignant neoplasm of breast (female), unspecified site 01/24/20051990 with no recurrence.- Malignant neoplasm of breast (female), unspecified site 2012 Breast cancer left- Microcalcifications of the breast- Nonspecific abnormal results of liver function study 01/24/2005 Fatty liver, nonalcoholic, chronic- Other and unspecified hyperlipidemia 01/24/2005- Other pulmonary embolism and infarction 03/10/2007- S/P epidural steroid injection Dec 2015 back/hip pain- Snoring- Type II or unspecified type diabetes mellitus without mention ofcomplication, not stated as uncontrolled 10/15/2008- Unspecified essential hypertension 01/24/2005- Unspecified venous (peripheral) insufficiency 01/24/2005 EdemaPAST SURGICAL HISTORYProcedure Laterality Date- APPENDECTOMY 2002- BX BREAST PERC VACUUM/ROTN 06/21/12 left- BX/REMV,LYMPH NODE,DEEP AXILL 07-11-12 LEFT- CABG, ARTERY-VEIN, TWO CABG, two grafts- COLONOSCOP W/ OR W/O BRSH SPEC 05/30/2004 Colonoscopy, [place]- COLONOSCOP W/ OR W/O BRSH SPEC 09/15/09- COLONOSCOP W/ OR W/O BRSH SPEC 02/19/15 Colonoscopy- CYSTOSCOPY 01/01/13 [place] office cysto for khadijah/urge incont- DANDamp;C, DIAG AND/OR THERAPEUTIC SAB about 54 yrs. ago- EGD W/O BRSH SPECIMEN W/BX 03/28/11- KNEE SCOPE,DIAGNOSTIC 1994 Arthroscopy, knee, left- KNEE SCOPE,DIAGNOSTIC 06-21-05 Arthroscopy, knee, right- LAP CHOLECYSTECT/CHOLANGIOGRAPH Y 07/08/11 significant umbilical adhesions, Normal IOC- LEFT HEART CATH,PERCUTANEOUS 10/12/2015 Cardiac cath, L heart- MASTECTOMY 1990 right radical with lymph node dissection- MASTECTOMY, PARTIAL 07-11-12 LEFT- MASTECTOMY, SIMPLE, COMPLETE 11/26/1990 Right sided, axillary dissection- PAST SURGICAL HISTORY OF 1997 left clavicle reduction- PAST SURGICAL HISTORY OF left bunionectomy, 2nd toe arthrodesis- REMV CATARACT EXTRACAP,INSERT LENS Cataract Removal- both- REPAIR ING HERNIA,5+Y/O,REDUCIBL 1959 and 1967 Hernia repair, inguinal, right- REPAIR ROTATOR CUFF,ACUTE Rotator cuff repair left- REPAIR UMBILICAL MARIO,ANDlt;5Y/O,REDUC 2003 Hernia repair, umbilical- STENT PLACEMENT 2003 LAD,RCA- VAGINAL HYSTERECTOMY 1968 Hysterectomy, vaginalALLERGIES Lovastatin; Statins [Wnttocc-Gbl-Brb Reductase Inhibitors]; Codeine;Penicillins; Vicodin [Hydrocodone-Acetaminophen] ; Zetia [Ezetimibe]MEDICATIONSALPRA Zolam (XANAX) 0.5 mg tablet Take 1 tablet by mouth twice daily as needed.TENS Units jahaira 1 Device as needed.meclizine (ANTIVERT) 25 mg tab Take 1 tablet by mouth three times daily asneeded (dizziness).TENS unit and electrodes cmpk Use as instructed.venlafaxine (EFFEXOR) 75 mg tablet Take two (2) tablets in the AM and one (1)tablet in the PM.ipratropium-albuterol (COMBIVENT RESPIMAT) 20-100 mcg/actuation mist Inhale 1Puff as instructed four times daily.traMADol (ULTRAM) 50 mg tablet Take 1 tablet by mouth every 6 hours as needed.metoprolol tartrate, short acting, (LOPRESSOR) 50 mg tablet Take 2 tablets bymouth twice daily.traZODone (DESYREL) 100 mg tablet Take 1 tablet by mouth daily at bedtime.nitroglycerin sublingual (NITROQUICK) 0.4 mg SL tablet Dissolve 1 tablet underthe tongue as needed. FOR CHEST PAIN. IF NO RELIEF CALL 911ondansetron orally disintegrating (ZOFRAN ODT) 4 mg disintegrating tablet Take1 tablet by mouth every 8 hours as needed for Nausea/Vomiting.HYDROcodone -acetaminophen (NORCO) 5-325 mg per tablet Take 1 tablet by mouthonce daily. For back,hip pain.warfarin (COUMADIN) 5 mg tablet Take 1 tablet by mouth once daily.anastrozole (ARIMIDEX) 1 mg tablet Take 1 tablet by mouth once daily.lisinopril (PRINIVIL) 20 mg tablet Take 1 tablet by mouth twice daily.atorvastatin (LIPITOR) 40 mg tablet Take 1 tablet by mouth daily at bedtime.pantoprazole DR (PROTONIX) 20 mg tablet Take 1 tablet by mouth once daily.furosemide (LASIX) 20 mg tablet Take 1 tablet by mouth once daily.Blood-Glucose Meter monitoring kit Glucose Meter of Choice - Kit - Dx: E11.40.blood sugar diagnostic (BLOOD GLUCOSE TEST) test strip Test blood sugar(s) onetimes daily. Dx: Type 2 DM - Controlled E11.40 Insulin: NoLancets lancets Test blood sugar(s) one times daily. Dx: Type 2 DM -Controlled E11.40 Insulin: Noergocalciferol, vitamin D2, (DRISDOL) 50,000 unit capsule Take 1 capsule bymouth once each week.Ipratropium Newberg (ATROVENT) 0.03 % nasal spray Use 2 Sprays in the noseevery 12 hours.aspirin 81 mg chewable tablet Take 2 tablets by mouth once daily.therapeutic multivitamin tablet Take 1 tablet by mouth daily with breakfast.COMPOUNDED PRESCRIPTION L8020 Breast ProsthesisCOMPOUNDED PRESCRIPTION L8000 Surgical/Mastectomy Brasfluticasone (FLOVENT HFA) 110 mcg/Actuation INHALATION inhaler Inhale 2 Puffsas instructed twice daily. Use with spacer. Rinse mouth out after use.FAMILY HISTORYProblem Relation Age of Onset- Colon Cancer Mother- Lipids Mother- UNKNOWN [OTHER] Father NO CONTACT WITH FATHER- Heart Brother- Breast Cancer Daughter- Diabetes Maternal Grandmother all of mother's siblings with diabetes- Stroke Maternal Grandmother- Ischemic Heart Disease Maternal GrandfatherSocial HistorySubstance Use Topics- Smoking status: Former Smoker Packs/day: 1.00 Years: 25.00 Types: Cigarettes Quit date: 05/29/1987- Smokeless tobacco: Never Used- Alcohol use 6.0 oz/week Comment: 1 glass of wine per month or lessPhysical ExamConstitutional: She is well-developed, well-nourished, and in no distress.HENT:Head: Normocephalic.Right Ear: Tympanic membrane, external ear and ear canal normal.Left Ear: Tympanic membrane, external ear and ear canal normal.Nose: Rhinorrhea present. Right sinus exhibits no maxillary sinus tendernessand no frontal sinus tenderness. Left sinus exhibits no maxillary sinustenderness and no frontal sinus tenderness.Mouth/Throat: Posterior oropharyngeal erythema (PND) present.Right ear canal impacted with dark brown cerumen, after in office lavage, TMvisualized erythematous with mucoid fluid behind TMEyes: Conjunctivae are normal.Neck: Normal range of motion. Neck supple.Cardiovascular: Normal rate, regular rhythm and normal heart sounds.Pulmonary/Chest: Effort normal. No respiratory distress. She has wheezes (finescattered exp wheeze). She has no rales.Abdominal: Soft. She exhibits no distension. There is no tenderness.Lymphadenopathy: She has no cervical adenopathy.Skin: Skin is warm and dry. No rash noted.Nursing note and vitals reviewed.ASSESSMENT/PLAN:1. Acute mucoid otitis media of right ear - ICD9: 381.02, ICD10: H65.111(primary diagnosis)- Will begin treatment with as per antibiotic as written, see orders- The patient should also be given OTC decongestants prn, OTC cough and coldmeds as needed, warm salt water gargles, throat lozenges and/or OTC throatspray as needed and nasal saline gtts and suction prn for the first 5-7 days oftreatment.- Supportive care with plenty of fluids, rest, and analgesia prn.- Follow up in 3-5 days if symptoms persist or worsen.2. Impacted cerumen of right ear - ICD9: 380.4, ICD10: H61.21-pt tolerated in office lavage-home preventive treatments reviewed-f/u PRN3. COPD with exacerbation (HCC) - ICD9: 491.21, ICD10: J44.3-Xyuhsamysc-A/u with pcp in 3-5 days or sooner if symptoms are not improving or worseningPrescription instructions reviewed with patient as applicable. Patient advisedif symptoms do not improve or if symptoms worsen sooner, to contact theirprimary care physician. Potential red flag symptoms discussed with thepatient. Reviewed appropriate action plan to take if red flag symptoms occur.Patient agreeable to treatment plan.Rufino Cintron CNPReferring Provider: SELF [[id number]]Allergies As of Date: 06/14/2017 Noted Allergy ReactionLOVASTATIN 01/08/2015 17 - Myalgia Comments: Leg painsSTATINS ([id number]-UNG-YMS REDUCTAS*11/22/2005 14 - Other: See Comments Comments: elevated liver enzymes.CODEINE 01/24/2005 Comments: nauseaPENICILLINS 01/24/2005 Comments: felt throat was swollenVICODIN (HYDROCODONE-ACETAMINOPHE*0 07/15/2011 9 - ItchingZETIA (EZETIMIBE) 06/28/2006 5 - Intolerance Comments: elevated liver enzymesDate Reviewed: 06/14/2017Reviewed by: Rufino Ward (Marjan) SCARLETT Cintron - Fully AssessedReason for Visit: Nasal Congestion [235] Cmt: nasal drainage, some wheezing, right ear pain x 1 weekPrimary Visit Diagnosis:Acute mucoid otitis media of right ear [H65.111] Other Visit Diagnoses:Impacted cerumen of right ear [H61.21] COPD with exacerbation (HCC) [J44.1]Order(s):cefdinir (OMNICEF) 300 mg capsuleTake 1 capsule by mouth twice daily for 10 days.Disp: 20 capsuleRfl: 0 predniSONE (DELTASONE) 20 mg tabletTake 2 tablets by mouth once daily for 5 days. Take daily with food.Disp: 10 tabletRfl: 0Prescriptions as of 06/14/2017 Sig: ALPRAZOLAM 0.5 MG TABLET Take 1 tablet by mouth twice * TRANSCUTANEOUS ELECTRICAL NER* 1 Device as needed. MECLIZINE 25 MG TABLET Take 1 tablet by mouth three * TENS UNIT AND ELECTRODES COMB* Use as instructed. VENLAFAXINE 75 MG TABLET Take two (2) tablets in the A* IPRATROPIUM 20 MCG-ALBUTEROL * Inhale 1 Puff as instructed f* TRAMADOL 50 MG TABLET Take 1 tablet by mouth every * METOPROLOL TARTRATE 50 MG TAB* Take 2 tablets by mouth twice* TRAZODONE 100 MG TABLET Take 1 tablet by mouth daily * NITROGLYCERIN 0.4 MG SUBLINGU* Dissolve 1 tablet under the t* ONDANSETRON 4 MG DISINTEGRATI* Take 1 tablet by mouth every * HYDROCODONE 5 MG-ACETAMINOPHE* Take 1 tablet by mouth once d* WARFARIN 5 MG TABLET Take 1 tablet by mouth once d* ANASTROZOLE 1 MG TABLET Take 1 tablet by mouth once d* LISINOPRIL 20 MG TABLET Take 1 tablet by mouth twice * ATORVASTATIN 40 MG TABLET Take 1 tablet by mouth daily * PANTOPRAZOLE 20 MG TABLET,DEL* Take 1 tablet by mouth once d* FUROSEMIDE 20 MG TABLET Take 1 tablet by mouth once d* BLOOD-GLUCOSE METER KIT Glucose Meter of Choice - Kit* BLOOD SUGAR DIAGNOSTIC STRIPS Test blood sugar(s) one times* LANCETS Test blood sugar(s) one times* ERGOCALCIFEROL (VITAMIN D2) 5* Take 1 capsule by mouth once * IPRATROPIUM BROMIDE 0.03 % NA* Use 2 Sprays in the nose ever* ASPIRIN 81 MG CHEWABLE TABLET Take 2 tablets by mouth once * THERAPEUTIC MULTIVITAMIN TABL* Take 1 tablet by mouth daily * COMPOUNDED PRESCRIPTION L8020 Breast Prosthesis COMPOUNDED PRESCRIPTION L8000 Surgical/Mastectomy Bras FLUTICASONE 110 MCG/ACTUATION* Inhale 2 Puffs as instructed * CEFDINIR 300 MG CAPSULE Take 1 capsule by mouth twice* PREDNISONE 20 MG TABLET Take 2 tablets by mouth once *Problem List As Of Date 06/14/2017 Noted Resolved Coronary atherosclerosis [I25.10] INVALID FOR* More... More... Essential hypertension [I10] INVALID FOR* Venous (peripheral) insufficiency [I87.2] INVALID FOR* Anxiety state [F41.1] INVALID FOR* More... FEMALE STRESS INCONTINENCE [N39.3] INVALID FOR* ABNORMAL LIVER FUNCTION STUDY [R94.5] INVALID FOR*01/13/2006 More... Allergic rhinitis [J30.9] INVALID FOR* INT DERANGEMENT KNEE NOS [M23.90] INVALID FOR*07/12/2005 TEAR MED MENISC KNEE-CURRENT [[id number]] INVALID FOR*07/12/2005 LATERAL EPICONDYLITIS [M77.10] INVALID FOR*06/03/2005 MONONEURITIS ARM NEC [G56.80] INVALID FOR*06/03/2005 AFTERCARE NOS [Z51.89] INVALID FOR*07/12/2005 Primary Localized Osteoarthrosis, Lower Leg [M1*INVALID FOR*02/09/2009 PES ANSERINUS TENDINITIS [LBJ0035] INVALID FOR*01/13/2006 SYMPTOMATIC FEMALE CLIMACTERIC STATE [N95.1] INVALID FOR* PULM EMBOLISM/INFARCT NOS [I26.99] INVALID FOR*02/29/2008 Asthma [J45.909] INVALID FOR* DIABETES MELLITUS TYPE II-UNCOMPL [E11.9] INVALID FOR*09/15/2008 Dermatophytosis of nail [B35.1] INVALID FOR*05/31/2012 Other acquired deformity of toe [M20.5X9] INVALID FOR*11/22/2011 Hallux valgus (acquired) [M20.10] INVALID FOR*05/31/2012 Pain in limb [M79.609] INVALID FOR*05/31/2012 DIABETES TYPE II W NEURO MANIFESTATIONS [E11.49]INVALID FOR*09/15/2008 Unspecified deformity of ankle and foot, acquir*INVALID FOR*11/22/2011 Dysmetabolic Syndrome X [E88.81] INVALID FOR*02/18/2009 PULMONARY EMBOLISM [I26.99] INVALID FOR*10/15/2008 Depressive disorder [F32.9] INVALID FOR* Diabetes mellitus type II, controlled (HCC) [E1*INVALID FOR* More... Lumbago [M54.5] INVALID FOR*03/07/2017 More... Enthesopathy of hip region [M76.899] INVALID FOR*05/31/2012 Unspecified arthropathy, pelvic region and thig*INVALID FOR*05/31/2012 Irritated//Inflamed seborrheic keratosis [L82.0]INVALID FOR*05/31/2012 Other seborrheic keratoses [L82.1] INVALID FOR*05/31/2012 Actinic Damage//Sun-damaged skin [L57.8] INVALID FOR*05/31/2012 Solar lentigines [L81.4] INVALID FOR*05/31/2012 Skin tag [L91.8] INVALID FOR*05/31/2012 Epidermal cyst [L72.0] INVALID FOR*05/31/2012 Milia [L72.0] INVALID FOR*05/31/2012 Sebaceous Hyperplasia [L73.9] INVALID FOR*05/31/2012 Abdominal pain, acute, right upper quadrant [R1*INVALID FOR*11/22/2011 Acute gastritis without mention of hemorrhage [*INVALID FOR*12/30/2014 Abdominal pain, unspecified site [R10.9] INVALID FOR*11/22/2011 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 More... 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 KASIA (acute kidney injury) [N17.9] INVALID FOR*04/07/2013 Priority: F More... Acute blood loss anemia [D62] INVALID FOR*12/26/2013 Priority: H More... Atrial fibrillation [I48.91] INVALID FOR* Hypoxemia [R09.02] INVALID FOR*04/07/2013 Priority: B More... Atelectasis/Pleural Effusion/FVO [J98.11] INVALID FOR*12/26/2013 Priority: B More... More... Hyperlipidemia with target LDL less than 70 [E7*INVALID FOR* More... History of venous thromboembolism [Z86.718] INVALID FOR*03/07/2017 Anticoagulation management encounter [Z51.81, Z*INVALID FOR* Non-proliferative diabetic retinopathy (HCC) [E*INVALID FOR* Vaginal burning [N94.9] INVALID FOR*12/30/2014 Hematuria [R31.9] INVALID FOR*03/07/2017 UTI (lower urinary tract infection) [N39.0] INVALID FOR*12/30/2014 Right flank pain [R10.9] INVALID FOR*12/30/2014 Family history of malignant neoplasm of gastroi*INVALID FOR*02/19/2015 Vitamin D deficiency [E55.9] INVALID FOR* Pain in right hip [M25.551] INVALID FOR* Unstable angina (HCC) [I20.0] INVALID FOR*02/07/2016 Priority: Mild More... HTN (hypertension) [I10] INVALID FOR*03/07/2017 CAD (coronary artery disease) [I25.10] INVALID FOR*03/07/2017 More... VTE (venous thromboembolism) [I82.90] INVALID FOR*07/26/2016 More... 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 PREDNISONE 20 MG TABLET 10 t* 0 06/14/2017 06/19/2017 Route: ORAL Sig: Take 2 tablets by mouth once daily for 5 days. Take daily with food.Disposition: Return if symptoms worsen or fail to improve.Follow-up and Disposition History RecordedEncounter Number: [id number] Status:Closed by RUFINO CINTRON on 06/14/[address] [facility] PROGRESSon 06-14-2017 PROGRESS HNO ID: [id number] thor: Rufino Ward (Trade Show Specialist) Rayo Cintron: (none)Author Type: Nurse PractitionerType: Progress NotesFiled: 06/14/2017 6:14 PMNote Text:HPIPatient presents with:Nasal Congestion: nasal drainage, some wheezing, right ear pain x 1 weekHx of COPD, bronchitis, pneumoniaTylenol otc with minimal relief.ROSPAST MEDICAL HISTORYDiagnosis Date- Acute gastritis without mention of hemorrhage- Allergic rhinitis, cause unspecified 01/24/2005- Anxiety state, unspecified 01/24/2005- Asthma- Atrial fibrillation (HCC)- Breast cancer (HCC) 1989 Right- Chronic obstructive pulmonary disease (COPD) (HCC)- 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 11/25/2016- Coronary atherosclerosis of unspecified type of vessel, flandreau or graft01/24/2005 Stent to LAD, RCA 2003.- Depressive disorder, not elsewhere classified 10/15/2008- Diverticulosis of colon (without mention of hemorrhage)- DVT (deep venous thrombosis) (HCC) 03/04/2009- Dysmetabolic syndrome X 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- Female stress incontinence 01/24/2005- Intestinal adhesions 07/09/2011- Lumbago 06/17/09 low back pain- Malignant neoplasm of breast (female), unspecified site 01/24/20051990 with no recurrence.- Malignant neoplasm of breast (female), unspecified site 2012 Breast cancer left- Microcalcifications of the breast- Nonspecific abnormal results of liver function study 01/24/2005 Fatty liver, nonalcoholic, chronic- Other and unspecified hyperlipidemia 01/24/2005- Other pulmonary embolism and infarction 03/10/2007- S/P epidural steroid injection Dec 2015 back/hip pain- Snoring- Type II or unspecified type diabetes mellitus without mention ofcomplication, not stated as uncontrolled 10/15/2008- Unspecified essential hypertension 01/24/2005- Unspecified venous (peripheral) insufficiency 01/24/2005 EdemaPAST SURGICAL HISTORYProcedure Laterality Date- APPENDECTOMY 2003- BX BREAST PERC VACUUM/ROTN 06/21/12 left- BX/REMV,LYMPH NODE,DEEP AXILL 07-11-12 LEFT- CABG, ARTERY-VEIN, TWO CABG, two grafts- COLONOSCOP W/ OR W/O BRS SPEC 05/30/2004 Colonoscopy, [place]- COLONOSCOP W/ OR W/O BRS SPEC 09/15/09- COLONOSCOP W/ OR W/O BRS SPEC 02/19/15 Colonoscopy- CYSTOSCOPY 01/01/13 [place] office cysto for khadijah/urge incont- DANDC, DIAG AND/OR THERAPEUTIC SAB about 56 yrs. ago- EGD W/O BRS SPECIMEN W/BX 03/28/11- KNEE SCOPE,DIAGNOSTIC 1994 Arthroscopy, knee, left- KNEE SCOPE,DIAGNOSTIC 06-21-05 Arthroscopy, knee, right- LAP CHOLECYSTECT/CHOLANGIOGRAPH Y 07/08/11 significant umbilical adhesions, Normal IOC- LEFT HEART CATH,PERCUTANEOUS 10/12/2015 Cardiac cath, L heart- MASTECTOMY 1990 right radical with lymph node dissection- MASTECTOMY, PARTIAL 07-11-12 LEFT- MASTECTOMY, SIMPLE, COMPLETE 11/26/1990 Right sided, axillary dissection- PAST SURGICAL HISTORY OF 1997 left clavicle reduction- PAST SURGICAL HISTORY OF left bunionectomy, 2nd toe arthrodesis- REMV CATARACT EXTRACAP,INSERT LENS Cataract Removal- both- REPAIR ING HERNIA,5+Y/O,REDUCIBL 1959 and 1967 Hernia repair, inguinal, right- REPAIR ROTATOR CUFF,ACUTE Rotator cuff repair left- REPAIR UMBILICAL MARIO,<5Y/O,REDUC 2003 Hernia repair, umbilical- STENT PLACEMENT 2003 LAD,RCA- VAGINAL HYSTERECTOMY 1968 Hysterectomy, vaginalALLERGIES Lovastatin; Statins [Ztaznjv-Irj-Ese Reductase Inhibitors];Codeine; Penicillins; Vicodin [Hydrocodone-Acetaminophen] ; Zetia[Ezetimibe]MEDICATIONS ALPRAZolam (XANAX) 0.5 mg tablet Take 1 tablet by mouth twice daily asneeded.TENS Units jahaira 1 Device as needed.meclizine (ANTIVERT) 25 mg tab Take 1 tablet by mouth three times daily asneeded (dizziness).TENS unit and electrodes cmpk Use as instructed.venlafaxine (EFFEXOR) 75 mg tablet Take two (2) tablets in the AM and one(1) tablet in the PM.ipratropium-albuterol (COMBIVENT RESPIMAT) 20-100 mcg/actuation mistInhale 1 Puff as instructed four times daily.traMADol (ULTRAM) 50 mg tablet Take 1 tablet by mouth every 6 hours asneeded.metoprolol tartrate, short acting, (LOPRESSOR) 50 mg tablet Take 2 tabletsby mouth twice daily.traZODone (DESYREL) 100 mg tablet Take 1 tablet by mouth daily at bedtime.nitroglycerin sublingual (NITROQUICK) 0.4 mg SL tablet Dissolve 1 tabletunder the tongue as needed. FOR CHEST PAIN. IF NO RELIEF CALL 911ondansetron orally disintegrating (ZOFRAN ODT) 4 mg disintegrating tabletTake 1 tablet by mouth every 8 hours as needed for Nausea/Vomiting.HYDROcodone -acetaminophen (NORCO) 5-325 mg per tablet Take 1 tablet bymouth once daily. For back,hip pain.warfarin (COUMADIN) 5 mg tablet Take 1 tablet by mouth once daily.anastrozole (ARIMIDEX) 1 mg tablet Take 1 tablet by mouth once daily.lisinopril (PRINIVIL) 20 mg tablet Take 1 tablet by mouth twice daily.atorvastatin (LIPITOR) 40 mg tablet Take 1 tablet by mouth daily atbedtime.pantoprazole DR (PROTONIX) 20 mg tablet Take 1 tablet by mouth once daily.furosemide (LASIX) 20 mg tablet Take 1 tablet by mouth once daily.Blood-Glucose Meter monitoring kit Glucose Meter of Choice - Kit - Dx:E11.40.blood sugar diagnostic (BLOOD GLUCOSE TEST) test strip Test blood sugar(s)one times daily. Dx: Type 2 DM - Controlled E11.40 Insulin: NoLancets lancets Test blood sugar(s) one times daily. Dx: Type 2 DM -Controlled E11.40 Insulin: Noergocalciferol, vitamin D2, (DRISDOL) 50,000 unit capsule Take 1 capsuleby mouth once each week.Ipratropium Newberg (ATROVENT) 0.03 % nasal spray Use 2 Sprays in the noseevery 12 hours.aspirin 81 mg chewable tablet Take 2 tablets by mouth once daily.therapeutic multivitamin tablet Take 1 tablet by mouth daily withbreakfast.COMPOUNDED PRESCRIPTION L8020 Breast ProsthesisCOMPOUNDED PRESCRIPTION L8000 Surgical/Mastectomy Brasfluticasone (FLOVENT HFA) 110 mcg/Actuation INHALATION inhaler Inhale 2Puffs as instructed twice daily. Use with spacer. Rinse mouth out afteruse.FAMILY HISTORYProblem Relation Age of Onset- Colon Cancer Mother- Lipids Mother- UNKNOWN [OTHER] Father NO CONTACT WITH FATHER- Heart Brother- Breast Cancer Daughter- Diabetes Maternal Grandmother all of mother's siblings with diabetes- Stroke Maternal Grandmother- Ischemic Heart Disease Maternal GrandfatherSocial HistorySubstance Use Topics- Smoking status: Former Smoker Packs/day: 1.00 Years: 25.00 Types: Cigarettes Quit date: 05/29/1987- Smokeless tobacco: Never Used- Alcohol use 6.0 oz/week Comment: 1 glass of wine per month or lessPhysical ExamConstitutional: She is well-developed, well-nourished, and in no distress.HENT:Head: Normocephalic.Right Ear: Tympanic membrane, external ear and ear canal normal.Left Ear: Tympanic membrane, external ear and ear canal normal.Nose: Rhinorrhea present. Right sinus exhibits no maxillary sinustenderness and no frontal sinus tenderness. Left sinus exhibits nomaxillary sinus tenderness and no frontal sinus tenderness.Mouth/Throat: Posterior oropharyngeal erythema (PND) present.Right ear canal impacted with dark brown cerumen, after in office lavage,TM visualized erythematous with mucoid fluid behind TMEyes: Conjunctivae are normal.Neck: Normal range of motion. Neck supple.Cardiovascular: Normal rate, regular rhythm and normal heart sounds.Pulmonary/Chest: Effort normal. No respiratory distress. She has wheezes(fine scattered exp wheeze). She has no rales.Abdominal: Soft. She exhibits no distension. There is no tenderness.Lymphadenopathy: She has no cervical adenopathy.Skin: Skin is warm and dry. No rash noted.Nursing note and vitals reviewed.ASSESSMENT/PLAN:1. Acute mucoid otitis media of right ear - ICD9: 381.02, ICD10: H65.111(primary diagnosis)- Will begin treatment with as per antibiotic as written, see orders- The patient should also be given OTC decongestants prn, OTC cough andcold meds as needed, warm salt water gargles, throat lozenges and/or OTCthroat spray as needed and nasal saline gtts and suction prn for the first5-7 days of treatment.- Supportive care with plenty of fluids, rest, and analgesia prn.- Follow up in 3-5 days if symptoms persist or worsen.2. Impacted cerumen of right ear - ICD9: 380.4, ICD10: H61.21-pt tolerated in office lavage-home preventive treatments reviewed-f/u PRN3. COPD with exacerbation (HCC) - ICD9: 491.21, ICD10: J44.5-Wheherqdis-O/u with pcp in 3-5 days or sooner if symptoms are not improving orworseningPrescription instructions reviewed with patient as applicable. Patientadvised if symptoms do not improve or if symptoms worsen sooner, tocontact their primary care physician. Potential red flag symptomsdiscussed with the patient. Reviewed appropriate action plan to take ifred flag symptoms occur. Patient agreeable to treatment plan.Rufino Cintron CNP [facility] OBSOLETEon 04-16-2017 OBSOLETE Refill (INTMWS) -------COLETTE RICHARDSON ([id number]) 1935 FDate Time Provider Xfxrghsooh19/19/17 KAMAR FRANKLIN INTAnanyaWS During your visit today, we recorded the following information about you:Allergies As of Date: 04/16/2017 Noted Allergy ReactionLOVASTATIN 01/08/2015 17 - Myalgia Comments: Leg painsSTATINS (CTXJVBM-MED-WUL REDUCTAS*11/22/2005 14 - Other: See Comments Comments: elevated liver enzymes.CODEINE 01/24/2005 Comments: nauseaPENICILLINS 01/24/2005 Comments: felt throat was swollenVICODIN (HYDROCODONE-ACETAMINOPHE*0 07/15/2011 9 - ItchingZETIA (EZETIMIBE) 06/28/2006 5 - Intolerance Comments: elevated liver enzymesDate Reviewed: 04/03/2017Reviewed by: Vesta Enamorado Ma - Fully AssessedReason for Visit: Refill Request [94]Prescriptions as of 04/16/2017 Sig: ALPRAZOLAM 0.5 MG TABLET Take 1 tablet by mouth twice * TRANSCUTANEOUS ELECTRICAL NER* 1 Device as needed. MECLIZINE 25 MG TABLET Take 1 tablet by mouth three * TENS UNIT AND ELECTRODES COMB* Use as instructed. VENLAFAXINE 75 MG TABLET Take two (2) tablets in the A* IPRATROPIUM 20 MCG-ALBUTEROL * Inhale 1 Puff as instructed f* TRAMADOL 50 MG TABLET Take 1 tablet by mouth every * METOPROLOL TARTRATE 50 MG TAB* Take 2 tablets by mouth twice* TRAZODONE 100 MG TABLET Take 1 tablet by mouth daily * NITROGLYCERIN 0.4 MG SUBLINGU* Dissolve 1 tablet under the t* ONDANSETRON 4 MG DISINTEGRATI* Take 1 tablet by mouth every * HYDROCODONE 5 MG-ACETAMINOPHE* Take 1 tablet by mouth once d* WARFARIN 5 MG TABLET Take 1 tablet by mouth once d* ANASTROZOLE 1 MG TABLET Take 1 tablet by mouth once d* LISINOPRIL 20 MG TABLET Take 1 tablet by mouth twice * ATORVASTATIN 40 MG TABLET Take 1 tablet by mouth daily * PANTOPRAZOLE 20 MG TABLET,DEL* Take 1 tablet by mouth once d* FUROSEMIDE 20 MG TABLET Take 1 tablet by mouth once d* BLOOD-GLUCOSE METER KIT Glucose Meter of Choice - Kit* BLOOD SUGAR DIAGNOSTIC STRIPS Test blood sugar(s) one times* LANCETS Test blood sugar(s) one times* ERGOCALCIFEROL (VITAMIN D2) 5* Take 1 capsule by mouth once * IPRATROPIUM BROMIDE 0.03 % NA* Use 2 Sprays in the nose ever* ASPIRIN 81 MG CHEWABLE TABLET Take 2 tablets by mouth once * THERAPEUTIC MULTIVITAMIN TABL* Take 1 tablet by mouth daily * COMPOUNDED PRESCRIPTION L8020 Breast Prosthesis COMPOUNDED PRESCRIPTION L8000 Surgical/Mastectomy Bras FLUTICASONE 110 MCG/ACTUATION* Inhale 2 Puffs as instructed *Problem List As Of Date 04/16/2017 Noted Resolved Coronary atherosclerosis [I25.10] INVALID FOR* More... More... Essential hypertension [I10] INVALID FOR* Venous (peripheral) insufficiency [I87.2] INVALID FOR* Anxiety state [F41.1] INVALID FOR* More... FEMALE STRESS INCONTINENCE [N39.3] INVALID FOR* ABNORMAL LIVER FUNCTION STUDY [R94.5] INVALID FOR*01/13/2006 More... Allergic rhinitis [J30.9] INVALID FOR* INT DERANGEMENT KNEE NOS [M23.90] INVALID FOR*07/12/2005 TEAR MED MENISC KNEE-CURRENT [XCP6832] INVALID FOR*07/12/2005 LATERAL EPICONDYLITIS [M77.10] INVALID FOR*06/03/2005 MONONEURITIS ARM NEC [G56.80] INVALID FOR*06/03/2005 AFTERCARE NOS [Z51.89] INVALID FOR*07/12/2005 Primary Localized Osteoarthrosis, Lower Leg [M1*INVALID FOR*02/09/2009 PES ANSERINUS TENDINITIS [TZL1348] INVALID FOR*01/13/2006 SYMPTOMATIC FEMALE CLIMACTERIC STATE [N95.1] INVALID FOR* PULM EMBOLISM/INFARCT NOS [I26.99] INVALID FOR*02/29/2008 Asthma [J45.909] INVALID FOR* DIABETES MELLITUS TYPE II-UNCOMPL [E11.9] INVALID FOR*09/15/2008 Dermatophytosis of nail [B35.1] INVALID FOR*05/31/2012 Other acquired deformity of toe [M20.5X9] INVALID FOR*11/22/2011 Hallux valgus (acquired) [M20.10] INVALID FOR*05/31/2012 Pain in limb [M79.609] INVALID FOR*05/31/2012 DIABETES TYPE II W NEURO MANIFESTATIONS [E11.49]INVALID FOR*09/15/2008 Unspecified deformity of ankle and foot, acquir*INVALID FOR*11/22/2011 Dysmetabolic Syndrome X [E88.81] INVALID FOR*02/18/2009 PULMONARY EMBOLISM [I26.99] INVALID FOR*10/15/2008 Depressive disorder [F32.9] INVALID FOR* Diabetes mellitus type II, controlled (HCC) [E1*INVALID FOR* More... Lumbago [M54.5] INVALID FOR*03/07/2017 More... Enthesopathy of hip region [M76.899] INVALID FOR*05/31/2012 Unspecified arthropathy, pelvic region and thig*INVALID FOR*05/31/2012 Irritated//Inflamed seborrheic keratosis [L82.0]INVALID FOR*05/31/2012 Other seborrheic keratoses [L82.1] INVALID FOR*05/31/2012 Actinic Damage//Sun-damaged skin [L57.8] INVALID FOR*05/31/2012 Solar lentigines [L81.4] INVALID FOR*05/31/2012 Skin tag [L91.8] INVALID FOR*05/31/2012 Epidermal cyst [L72.0] INVALID FOR*05/31/2012 Milia [L72.0] INVALID FOR*05/31/2012 Sebaceous Hyperplasia [L73.9] INVALID FOR*05/31/2012 Abdominal pain, acute, right upper quadrant [R1*INVALID FOR*11/22/2011 Acute gastritis without mention of hemorrhage [*INVALID FOR*12/30/2014 Abdominal pain, unspecified site [R10.9] INVALID FOR*11/22/2011 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 More... 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 KASIA (acute kidney injury) [N17.9] INVALID FOR*04/07/2013 Priority: F More... Acute blood loss anemia [D62] INVALID FOR*12/26/2013 Priority: H More... Atrial fibrillation [I48.91] INVALID FOR* Hypoxemia [R09.02] INVALID FOR*04/07/2013 Priority: B More... Atelectasis/Pleural Effusion/FVO [J98.11] INVALID FOR*12/26/2013 Priority: B More... More... Hyperlipidemia with target LDL less than 70 [E7*INVALID FOR* More... History of venous thromboembolism [Z86.718] INVALID FOR*03/07/2017 Anticoagulation management encounter [Z51.81, Z*INVALID FOR* Non-proliferative diabetic retinopathy (HCC) [E*INVALID FOR* Vaginal burning [N94.9] INVALID FOR*12/30/2014 Hematuria [R31.9] INVALID FOR*03/07/2017 UTI (lower urinary tract infection) [N39.0] INVALID FOR*12/30/2014 Right flank pain [R10.9] INVALID FOR*12/30/2014 Family history of malignant neoplasm of gastroi*INVALID FOR*02/19/2015 Vitamin D deficiency [E55.9] INVALID FOR* Pain in right hip [M25.551] INVALID FOR* Unstable angina (HCC) [I20.0] INVALID FOR*02/07/2016 Priority: Mild More... HTN (hypertension) [I10] INVALID FOR*03/07/2017 CAD (coronary artery disease) [I25.10] INVALID FOR*03/07/2017 More... VTE (venous thromboembolism) [I82.90] INVALID FOR*07/26/2016 More... 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] INVALID FOR*03/07/2017 Chronic right SI joint pain [M53.3, G89.29] INVALID FOR* Connective 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*INVALID FOR*03/07/2017Encounter Number: [id number] Status:Closed by ANTOINETTE GONZALEZ LPN on 04/18/17 [facility] 04-03-2017 CNOV Office Visit (INTMWS) -------COLETTE RICHARDSON ([id number]) 1935 FDate Time Provider Upkwinsuvr86/6/17 2:20 PM JESSIE ROSE (SCARLETT) INTMWS During your visit today, we recorded the following information about you: Pulse Respiration Blood pressure Weight 64/minute 16/minute 122/60 80.2 kgNaz Older, SCARLETT 04/03/2017 3:16 PM SignedCC: Patient presents with:TIA: Symptoms x 1 week agoTaylor Richardson is a 81 year old female who presents today for possible TIAlast . Patient states she was talking to her and all of asudden could barely get her words out even though she knew what she wanted tosay and speech was garbled. Thinks it may have lasted less than 10 minutes.Right after this felt a little shaky and had pain on the top of her head thatshe treated with Tylenol and eventually resolved. Sullivan just like regularheadache. Denies any other associated symptoms including unilateral weakness,facial drooping, visual disturbance, tremors, shaking, numbness, tingling.Patient is diabetic, did not check her blood sugar when speech difficultyoccurred. Intermittent dizziness when getting out of bed for about one monthprior which has since resolved. Also reports over the past 6 or more monthsseems to lose her train of thought and forgets what she wants to say or theANDquot;words won't just come right away.ANDquot; Has had ANDquot;balanceproblemsANDq uot; for the past year. No recent fall or head injury. No history ofCVA or TIA. No excessive caffeine intake. Does not drink alcohol, no drug use.No new medications. No recent illnesses.Is currently taking Coumadin for Afib- Last INR two weeks ago, 1.7. Doseincreased to 7.5 mg 2 days a week and 5 mg all other days. Due to haverechecked tomorrow. History of CAD. Just had cholesterol levels checked andtakes statin medication daily.REVIEW OF SYSTEMSGeneral: no fevers, no chills, no night sweats, no recurrent infections, nochange in appetite, no change in energy and no significant changes in weightHEENT: no frequent or significant headaches, no changes in hearing, no visualchangesRespiratory: no cough, no wheezing, no shortness of breath, no hemoptysisCardiovascular: no chest pain, no chest pressure, no palpitations and noswellingGI: Negative for abdominal discomfort, blood in stools or black stools, nausea,vomiting, diarrheaPsych: Negative for sleep disturbance, Positive for severe stress due tohusband that is very sick. History of anxiety and depression. Currently takingXanax and Trazodone at bedtime and Effexor daily.Endocrine: no fatigue, no weight gain, no weight loss, no hair loss, no dryskin, no cold intolerance, no heat intolerance and no neck pain/pressureNeurologic: no syncope, no seizures, no memory loss, no confusion, no numbnessor tingling of hands, no numbness or tingling of feet, no involuntarymovements, no tremorPAST MEDICAL HISTORYDiagnosis Date- Acute gastritis without mention of hemorrhage- Allergic rhinitis, cause unspecified 01/24/2005- Anxiety state, unspecified 01/24/2005- Asthma- Atrial fibrillation (HCC)- Breast cancer ([facility]) 1989 Right- Chronic obstructive pulmonary disease (COPD) ([facility])- 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 11/25/2016- Coronary atherosclerosis of unspecified type of vessel, [place] or graft01/24/2005 Stent to LAD, RCA 2003.- Depressive disorder, not elsewhere classified 10/15/2008- Diverticulosis of colon (without mention of hemorrhage)- DVT (deep venous thrombosis) ([facility]) 03/04/2009- Dysmetabolic syndrome X 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- Female stress incontinence 01/24/2005- Intestinal adhesions 07/09/2011- Lumbago 06/17/09 low back pain- Malignant neoplasm of breast (female), unspecified site 01/24/20051990 with no recurrence.- Malignant neoplasm of breast (female), unspecified site 2012 Breast cancer left- Microcalcifications of the breast- Nonspecific abnormal results of liver function study 01/24/2005 Fatty liver, nonalcoholic, chronic- Other and unspecified hyperlipidemia 01/24/2005- Other pulmonary embolism and infarction 03/10/2007- S/P epidural steroid injection Dec 2015 back/hip pain- Snoring- Type II or unspecified type diabetes mellitus without mention ofcomplication, not stated as uncontrolled 10/15/2008- Unspecified essential hypertension 01/24/2005- Unspecified venous (peripheral) insufficiency 01/24/2005 EdemaPAST SURGICAL HISTORYProcedure Laterality Date- APPENDECTOMY 2003- BX BREAST PERC VACUUM/ROTN 06/21/12 left- BX/REMV,LYMPH NODE,DEEP AXILL 07-11-12 LEFT- CABG, ARTERY-VEIN, TWO CABG, two grafts- COLONOSCOP W/ OR W/O BRS SPEC 05/30/2004 Colonoscopy, [place]- COLONOSCOP W/ OR W/O BRS SPEC 09/15/09- COLONOSCOP W/ OR W/O [facility] SPEC 02/19/15 Colonoscopy- CYSTOSCOPY 01/01/13 [place] office cysto for khadijah/urge incont- DANDamp;C, DIAG AND/OR THERAPEUTIC SAB about 54 yrs. ago- EGD W/O [facility] SPECIMEN W/BX 03/28/11- KNEE SCOPE,DIAGNOSTIC 1994 Arthroscopy, knee, left- KNEE SCOPE,DIAGNOSTIC 06-21-05 Arthroscopy, knee, right- LAP CHOLECYSTECT/CHOLANGIOGRAPH Y 07/08/11 significant umbilical adhesions, Normal IOC- LEFT HEART CATH,PERCUTANEOUS 10/12/2015 Cardiac cath, L heart- MASTECTOMY 1990 right radical with lymph node dissection- MASTECTOMY, PARTIAL 07-11-12 LEFT- MASTECTOMY, SIMPLE, COMPLETE 11/26/1990 Right sided, axillary dissection- PAST SURGICAL HISTORY OF 1997 left clavicle reduction- PAST SURGICAL HISTORY OF left bunionectomy, 2nd toe arthrodesis- REMV CATARACT EXTRACAP,INSERT LENS Cataract Removal- both- REPAIR ING HERNIA,5+Y/O,REDUCIBL 1959 and 1967 Hernia repair, inguinal, right- REPAIR ROTATOR CUFF,ACUTE Rotator cuff repair left- REPAIR UMBILICAL MARIO,ANDlt;5Y/O,REDUC 2004 Hernia repair, umbilical- STENT PLACEMENT 2003 LAD,RCA- VAGINAL HYSTERECTOMY 1968 Hysterectomy, vaginalALLERGIES Lovastatin; Statins [Wflzukf-Uhg-Jzf Reductase Inhibitors]; Codeine;Penicillins; Vicodin [Hydrocodone-Acetaminophen] ; Zetia [Ezetimibe]MEDICATIONSALPRA Zolam (XANAX) 0.5 mg tablet Take 1 tablet by mouth twice daily as needed.TENS Units jahaira 1 Device as needed.meclizine (ANTIVERT) 25 mg tab Take 1 tablet by mouth three times daily asneeded (dizziness).TENS unit and electrodes cmpk Use as instructed.venlafaxine (EFFEXOR) 75 mg tablet Take two (2) tablets in the AM and one (1)tablet in the PM.ipratropium-albuterol (COMBIVENT RESPIMAT) 20-100 mcg/actuation mist Inhale 1Puff as instructed four times daily.traMADol (ULTRAM) 50 mg tablet Take 1 tablet by mouth every 6 hours as needed.metoprolol tartrate, short acting, (LOPRESSOR) 50 mg tablet Take 2 tablets bymouth twice daily.traZODone (DESYREL) 100 mg tablet Take 1 tablet by mouth daily at bedtime.nitroglycerin sublingual (NITROQUICK) 0.4 mg SL tablet Dissolve 1 tablet underthe tongue as needed. FOR CHEST PAIN. IF NO RELIEF CALL 911ondansetron orally disintegrating (ZOFRAN ODT) 4 mg disintegrating tablet Take1 tablet by mouth every 8 hours as needed for Nausea/Vomiting.HYDROcodone -acetaminophen (NORCO) 5-325 mg per tablet Take 1 tablet by mouthonce daily. For back,hip pain.warfarin (COUMADIN) 5 mg tablet Take 1 tablet by mouth once daily.anastrozole (ARIMIDEX) 1 mg tablet Take 1 tablet by mouth once daily.lisinopril (PRINIVIL) 20 mg tablet Take 1 tablet by mouth twice daily.atorvastatin (LIPITOR) 40 mg tablet Take 1 tablet by mouth daily at bedtime.pantoprazole DR (PROTONIX) 20 mg tablet Take 1 tablet by mouth once daily.furosemide (LASIX) 20 mg tablet Take 1 tablet by mouth once daily.Blood-Glucose Meter monitoring kit Glucose Meter of Choice - Kit - Dx: E11.40.blood sugar diagnostic (BLOOD GLUCOSE TEST) test strip Test blood sugar(s) onetimes daily. Dx: Type 2 DM - Controlled E11.40 Insulin: NoLancets lancets Test blood sugar(s) one times daily. Dx: Type 2 DM -Controlled E11.40 Insulin: Noergocalciferol, vitamin D2, (DRISDOL) 50,000 unit capsule Take 1 capsule bymouth once each week.Ipratropium Newberg (ATROVENT) 0.03 % nasal spray Use 2 Sprays in the noseevery 12 hours.aspirin 81 mg chewable tablet Take 2 tablets by mouth once daily.therapeutic multivitamin tablet Take 1 tablet by mouth daily with breakfast.COMPOUNDED PRESCRIPTION L8020 Breast ProsthesisCOMPOUNDED PRESCRIPTION L8000 Surgical/Mastectomy Brasfluticasone (FLOVENT HFA) 110 mcg/Actuation INHALATION inhaler Inhale 2 Puffsas instructed twice daily. Use with spacer. Rinse mouth out after use.amLODIPine (NORVASC) 5 mg tablet Take 1 tablet by mouth once daily.FAMILY HISTORYProblem Relation Age of Onset- Colon Cancer Mother- Lipids Mother- UNKNOWN [OTHER] Father NO CONTACT WITH FATHER- Heart Brother- Breast Cancer Daughter- Diabetes Maternal Grandmother all of mother's siblings with diabetes- Stroke Maternal Grandmother- Ischemic Heart Disease Maternal GrandfatherSocial HistorySubstance Use Topics- Smoking status: Former Smoker Packs/day: 1.00 Years: 25.00 Types: Cigarettes Quit date: 05/29/1987- Smokeless tobacco: Never Used- Alcohol use 6.0 oz/week Comment: 1 glass of wine per month or lessPHYSICAL EXAMBP 122/60 (BP Site: Right Arm, BP Position: Sitting, BP Cuff Size: Large Adult) Pulse 64 Resp 16 Wt 80.2 kg (176 lb 12.8 oz) BMI 34.53 kg/m6Adyfpvf Appearance: well appearing, in no acute distress, alertPysch: mood and affect broad and appropriateSkin: Skin color, texture, turgor normal for age;Head: normocephalic, atraumaticEyes: PERRLA, EOM's intact, conjunctiva pink and moist, no icterus, sclerawhite, non-injectedNeck: Thyroid normal size and symmetric without palpable nodules, No bruits,Neck supple, No adenopathyOropharynx: lips normal without lesions, tongue midline and normal, softpalate, uvula, and tonsils normalLungs: Lungs clear to auscultation. No wheezing, rhonchi, ralesHeart: RRR without murmur, gallop, or rubs. No ectopyAbdomen: Abdomen soft, non-tender. Bowel sounds normal. No masses, organomegalyNeurological: Negative findings: speech normal, mental status intact, cranialnerves 2-12 intact, gait, including heel, toe, and tandem walking normal,Romberg negative, muscle strength normal, finger to nose normal, reflexesnormal and symmetric, plantar response downgoing bilaterallyExt: no edema in LE bilaterally, good distal pulsesComponent Latest Ref Rng ANDamp; Units 03/06/2017 10/24/2017WBC 3.70 - 11.00 k/uL 7.44RBC 3.90 - 5.20 m/uL 4.74Hemoglobin 11.5 - 15.5 g/dL 14.5Hematocrit 36.0 - 46.0 % 44.8MCV 80.0 - 100.0 fL 94.5MCH 26.0 - 34.0 pG 30.6MCHC 30.5 - 36.0 g/dL 32.4RDW-CV 11.5 - 15.0 % 12.5Platelet Count 150 - 400 k/uL 257MPV 9.0 - 12.7 fL 11.1Neut% % 61.3Abs Neut (ANC) 1.45 - 7.50 k/uL 4.56Lymph% % 28.0Abs Lymph 1.00 - 4.00 k/uL 2.08Mono% % 6.7Abs [place] ANDlt;0.87 k/uL 0.50Eosin% % 3.2Abs Eosin ANDlt;0.46 k/uL 0.24Baso% % 0.8Abs Baso ANDlt;0.11 k/uL 0.06Nucleated Reds 0 /100 WBC 0.0Absolute nRBC 0.00 k/uL 0.00Diff Type Auto DiffProtein, Total 6.3 - 8.0 g/dL 7.2Albumin 3.9 - 4.9 g/dL 4.0Calcium 8.5 - 10.2 mg/dL 9.1Bilirubin, Total 0.2 - 1.3 mg/dL 0.4Alkaline Phosphatase 32 - 117 U/L 81AST 13 - 35 U/L 24Glucose 74 - 99 mg/dL 145 (H)BUN 7 - 21 mg/dL 15Creatinine 0.58 - 0.96 mg/dL 0.76Sodium 136 - 144 mmol/L 142Potassium 3.7 - 5.1 mmol/L 4.0Chloride 97 - 105 mmol/L 98CO2 22 - 30 mmol/L 29Anion Gap 9 - 18 mmol/L 15ALT 7 - 38 U/L 16eGFR- ANDgt;60eGFR-All Other Races . ANDgt;60Triglyceride 30 - 149 mg/dL 172 (H)Cholesterol 100 - 199 mg/dL 171HDL Cholesterol ANDgt;55 mg/dL 37 (L)VLDL Cholesterol 6 - 40 mg/dL 34LDL Cholesterol 60 - 129 mg/dL 100Fasting Time hrs 12TC:HDL Ratio 1.00 - 5.00 4.62LDL:HDL Ratio 0.50 - 3.55 2.70Non HDL Cholesterol 90 - 159 mg/dL 134Creatinine, Ur Random (UCRR) 20 - 300 mg/dL 72.0Albumin, Urine Random 0.0 - 23.0 mg/L 17.4Albumin/Creat Ratio 0 - 30 mg/g 24Hemoglobin A1C 4.3 - 5.6 % 6.4 (H)Estimated Average Glucose mg/dL 137INR (POCT) 0.8 - 1.2 1.9 (H) 1.7 (H)Internal Quality Check Acceptable AcceptableVitamin D 25 Hydroxy 31.0 - 80.0 ng/mL 48.6ASSESSMENT/PLAN:1. Garbled speech - ICD9: 784.59, ICD10: R47.89 (primary diagnosis)Symptoms consistent with TIA. Patient has multiple risk factors including Afib,CAD, DiabetesWork-up with stat labs and MRI/MRA of the brain, see ordersReviewed red flag symptoms with patient requiring emergency room evaluationincluding severe headache, visual disturbance, unilateral weakness, confusion,slurred speech, gait disturbance or syncopeFollow-up pending results of work-up- LIAM ISTAT BMP- LIAM CBC- MRI BRAIN WO/W IVCON- MRA BRAIN WO IVCON2. Expressive aphasia - ICD9: 784.3, ICD10: R47.01As above- LIAM ISTAT BMP- LIAM CBC- MRI BRAIN WO/W IVCON- MRA BRAIN WO IVCON3. Atrial fibrillation, unspecified type (HCC) - ICD9: 427.31, ICD10: I48.91Check INR todayPlan as above- PROTHROMBIN TIME/PT- MRI BRAIN WO/W IVCON- MRA BRAIN WO IVCON4. Atherosclerosis of [place] coronary artery of [place] heart, angina presenceunspecified - ICD9: 414.01, ICD10: I25.10Cholesterol levels checked one month ago, normal. Taking statin as prescribed- MRI BRAIN WO/W IVCON- MRA BRAIN WO IVCONNsergio Rose CNPPrescription instructions reviewed with patient as applicable. Potential redflag symptoms discussed with the patient. Reviewed appropriate action plan totake if red flag symptoms occur. Patient agreeable to treatment plan.Jessie Femi SCARLETT 04/03/2017 2:59 PM SignedIf symptoms recur call 911 or go to the nearest ERReferring Provider: SELF [200]Allergies As of Date: 04/03/2017 Noted Allergy ReactionLOVASTATIN 01/08/2015 17 - Myalgia Comments: Leg painsSTATINS ([id number] REDUCTAS*11/22/2005 14 - Other: See Comments Comments: elevated liver enzymes.CODEINE 01/24/2005 Comments: nauseaPENICILLINS 01/24/2005 Comments: felt throat was swollenVICODIN (HYDROCODONE-ACETAMINOPHE*0 07/15/2011 9 - ItchingZETIA (EZETIMIBE) 06/28/2006 5 - Intolerance Comments: elevated liver enzymesDate Reviewed: 04/03/2017Reviewed by: Vesta Enamorado Ma - Fully AssessedReason for Visit: TIA [2095] Cmt: Symptoms x 1 week agoPrimary Visit Diagnosis:Garbled speech [R47.89] Other Visit Diagnoses:Expressive aphasia [R47.01] Atrial fibrillation, unspecified type (HCC) [I48.91] Atherosclerosis of [place] coronary artery of [place] heart, angina presence unspecified [I25.10]Order(s):LIAM ISTAT BMP [SQWSTBMP] Order #: [id number] FUTURE LIAM CBC [SQWCBC] Order #: [id number] FUTURE PROTHROMBIN TIME/PT [SQPT] Order #: [id number] FUTURE MRI BRAIN WO/W IVCON [[id number]] Order #: [id number] FUTURE iv contrast (radiology procedure)MRI Brain Inject, intravenously, once for 1 dose.No IV access, insert saline lock prior to beginning of sedation, infusion, injection of imaging exam.Discontinue saline lock post exam. If Pt. has a central line or IVAD, may access for administration according to line specific nursing protocol.Once exam is complete flush line and de-access according to line specific nursing protocol in the MR contrast administration guidelines linkDisp: 1 EachRfl: 0 MRA BRAIN WO IVCON [[id number]] Order #: [id number] FUTUREPrescriptions as of 04/03/2017 Sig: ALPRAZOLAM 0.5 MG TABLET Take 1 tablet by mouth twice * TRANSCUTANEOUS ELECTRICAL NER* 1 Device as needed. MECLIZINE 25 MG TABLET Take 1 tablet by mouth three * TENS UNIT AND ELECTRODES COMB* Use as instructed. VENLAFAXINE 75 MG TABLET Take two (2) tablets in the A* IPRATROPIUM 20 MCG-ALBUTEROL * Inhale 1 Puff as instructed f* TRAMADOL 50 MG TABLET Take 1 tablet by mouth every * METOPROLOL TARTRATE 50 MG TAB* Take 2 tablets by mouth twice* TRAZODONE 100 MG TABLET Take 1 tablet by mouth daily * NITROGLYCERIN 0.4 MG SUBLINGU* Dissolve 1 tablet under the t* ONDANSETRON 4 MG DISINTEGRATI* Take 1 tablet by mouth every * HYDROCODONE 5 MG-ACETAMINOPHE* Take 1 tablet by mouth once d* WARFARIN 5 MG TABLET Take 1 tablet by mouth once d* ANASTROZOLE 1 MG TABLET Take 1 tablet by mouth once d* LISINOPRIL 20 MG TABLET Take 1 tablet by mouth twice * ATORVASTATIN 40 MG TABLET Take 1 tablet by mouth daily * PANTOPRAZOLE 20 MG TABLET,DEL* Take 1 tablet by mouth once d* FUROSEMIDE 20 MG TABLET Take 1 tablet by mouth once d* BLOOD-GLUCOSE METER KIT Glucose Meter of Choice - Kit* BLOOD SUGAR DIAGNOSTIC STRIPS Test blood sugar(s) one times* LANCETS Test blood sugar(s) one times* ERGOCALCIFEROL (VITAMIN D2) 5* Take 1 capsule by mouth once * IPRATROPIUM BROMIDE 0.03 % NA* Use 2 Sprays in the nose ever* ASPIRIN 81 MG CHEWABLE TABLET Take 2 tablets by mouth once * THERAPEUTIC MULTIVITAMIN TABL* Take 1 tablet by mouth daily * COMPOUNDED PRESCRIPTION L8020 Breast Prosthesis COMPOUNDED PRESCRIPTION L8000 Surgical/Mastectomy Bras FLUTICASONE 110 MCG/ACTUATION* Inhale 2 Puffs as instructed * IV CONTRAST (RADIOLOGY PROCED* MRI Brain Inject, intravenous*Problem List As Of Date 04/03/2017 Noted Resolved Coronary atherosclerosis [I25.10] INVALID FOR* More... More... Essential hypertension [I10] INVALID FOR* Venous (peripheral) insufficiency [I87.2] INVALID FOR* Anxiety state [F41.1] INVALID FOR* More... FEMALE STRESS INCONTINENCE [N39.3] INVALID FOR* ABNORMAL LIVER FUNCTION STUDY [R94.5] INVALID FOR*01/13/2006 More... Allergic rhinitis [J30.9] INVALID FOR* INT DERANGEMENT KNEE NOS [M23.90] INVALID FOR*07/12/2005 TEAR MED MENISC KNEE-CURRENT [[id number]] INVALID FOR*07/12/2005 LATERAL EPICONDYLITIS [M77.10] INVALID FOR*06/03/2005 MONONEURITIS ARM NEC [G56.80] INVALID FOR*06/03/2005 AFTERCARE NOS [Z51.89] INVALID FOR*07/12/2005 Primary Localized Osteoarthrosis, Lower Leg [M1*INVALID FOR*02/09/2009 PES ANSERINUS TENDINITIS [[id number]] INVALID FOR*01/13/2006 SYMPTOMATIC FEMALE CLIMACTERIC STATE [N95.1] INVALID FOR* PULM EMBOLISM/INFARCT NOS [I26.99] INVALID FOR*02/29/2008 Asthma [J45.909] INVALID FOR* DIABETES MELLITUS TYPE II-UNCOMPL [E11.9] INVALID FOR*09/15/2008 Dermatophytosis of nail [B35.1] INVALID FOR*05/31/2012 Other acquired deformity of toe [M20.5X9] INVALID FOR*11/22/2011 Hallux valgus (acquired) [M20.10] INVALID FOR*05/31/2012 Pain in limb [M79.609] INVALID FOR*05/31/2012 DIABETES TYPE II W NEURO MANIFESTATIONS [E11.49]INVALID FOR*09/15/2008 Unspecified deformity of ankle and foot, acquir*INVALID FOR*11/22/2011 Dysmetabolic Syndrome X [E88.81] INVALID FOR*02/18/2009 PULMONARY EMBOLISM [I26.99] INVALID FOR*10/15/2008 Depressive disorder [F32.9] INVALID FOR* Diabetes mellitus type II, controlled (HCC) [E1*INVALID FOR* More... Lumbago [M54.5] INVALID FOR*03/07/2017 More... Enthesopathy of hip region [M76.899] INVALID FOR*05/31/2012 Unspecified arthropathy, pelvic region and thig*INVALID FOR*05/31/2012 Irritated//Inflamed seborrheic keratosis [L82.0]INVALID FOR*05/31/2012 Other seborrheic keratoses [L82.1] INVALID FOR*05/31/2012 Actinic Damage//Sun-damaged skin [L57.8] INVALID FOR*05/31/2012 Solar lentigines [L81.4] INVALID FOR*05/31/2012 Skin tag [L91.8] INVALID FOR*05/31/2012 Epidermal cyst [L72.0] INVALID FOR*05/31/2012 Milia [L72.0] INVALID FOR*05/31/2012 Sebaceous Hyperplasia [L73.9] INVALID FOR*05/31/2012 Abdominal pain, acute, right upper quadrant [R1*INVALID FOR*11/22/2011 Acute gastritis without mention of hemorrhage [*INVALID FOR*12/30/2014 Abdominal pain, unspecified site [R10.9] INVALID FOR*11/22/2011 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 More... 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 KASIA (acute kidney injury) [N17.9] INVALID FOR*04/07/2013 Priority: F More... Acute blood loss anemia [D62] INVALID FOR*12/26/2013 Priority: H More... Atrial fibrillation [I48.91] INVALID FOR* Hypoxemia [R09.02] INVALID FOR*04/07/2013 Priority: B More... Atelectasis/Pleural Effusion/FVO [J98.11] INVALID FOR*12/26/2013 Priority: B More... More... Hyperlipidemia with target LDL less than 70 [E7*INVALID FOR* More... History of venous thromboembolism [Z86.718] INVALID FOR*03/07/2017 Anticoagulation management encounter [Z51.81, Z*INVALID FOR* Non-proliferative diabetic retinopathy (HCC) [E*INVALID FOR* Vaginal burning [N94.9] INVALID FOR*12/30/2014 Hematuria [R31.9] INVALID FOR*03/07/2017 UTI (lower urinary tract infection) [N39.0] INVALID FOR*12/30/2014 Right flank pain [R10.9] INVALID FOR*12/30/2014 Family history of malignant neoplasm of gastroi*INVALID FOR*02/19/2015 Vitamin D deficiency [E55.9] INVALID FOR* Pain in right hip [M25.551] INVALID FOR* Unstable angina (HCC) [I20.0] INVALID FOR*02/07/2016 Priority: Mild More... HTN (hypertension) [I10] INVALID FOR*03/07/2017 CAD (coronary artery disease) [I25.10] INVALID FOR*03/07/2017 More... VTE (venous thromboembolism) [I82.90] INVALID FOR*07/26/2016 More... 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 If Pt. has a central line or IVAD, may access for administration according to line specific nursing protocol.Once exam is complete flush line and de-access according to line specific nursing protocol in the MR contrast administration guidelines linkMedications Discontinued During This Encounter amLODIPine (NORVASC) 5 mg tablet 90 t* 4 03/22/2016 04/03/2017 Route: ORAL Sig: Take 1 tablet by mouth once daily. Disc: Discontinued by another Health Care ProviderEncounter Number: [id number] Status:Closed by JESSIE ROSE CNP on 04/03/17 [facility] CNPN Telephone (INTMWS) -------COLETTE RICHARDSON ([id number]) 1935 FDate Time Provider Hfkwqwxhax64/6/17 JESSIE ROSE (BUTTON MAKER AND INSTALLER) INTMWS During your visit today, we recorded the following information about you:Cassidy Thomas LPN 04/03/2017 3:26 PM SignedW[facility] de[facility] calling over , needing order for creatinine , fax [phone].Order pending, please file, then print then faxThanks.Jessie Rose CNP 04/03/2017 3:31 PM SignedI ordered stat BMP already, creatinine is in there.Jenny May Ma 04/03/2017 3:35 PM SignedFaxed over all stat lab orders to fax number below. Faxed imaging to [facility] at [phone]. Notified them that patient was on her way over.Vesta Mclean As of Date: 04/03/2017 Noted Allergy ReactionLOVASTATIN 01/08/2015 17 - Myalgia Comments: Leg painsSTATINS ([id number] REDUCTAS*11/22/2005 14 - Other: See Comments Comments: elevated liver enzymes.CODEINE 01/24/2005 Comments: nauseaPENICILLINS 01/24/2005 Comments: felt throat was swollenVICODIN (HYDROCODONE-ACETAMINOPHE*0 07/15/2011 9 - ItchingZETIA (EZETIMIBE) 06/28/2006 5 - Intolerance Comments: elevated liver enzymesDate Reviewed: 04/03/2017Reviewed by: Vesta Enamorado Ma - Fully AssessedReason for Visit: Orders [681]Prescriptions as of 04/03/2017 Sig: IV CONTRAST (RADIOLOGY PROCED* MRI Brain Inject, intravenous* ALPRAZOLAM 0.5 MG TABLET Take 1 tablet by mouth twice * TRANSCUTANEOUS ELECTRICAL NER* 1 Device as needed. MECLIZINE 25 MG TABLET Take 1 tablet by mouth three * TENS UNIT AND ELECTRODES COMB* Use as instructed. VENLAFAXINE 75 MG TABLET Take two (2) tablets in the A* IPRATROPIUM 20 MCG-ALBUTEROL * Inhale 1 Puff as instructed f* TRAMADOL 50 MG TABLET Take 1 tablet by mouth every * METOPROLOL TARTRATE 50 MG TAB* Take 2 tablets by mouth twice* TRAZODONE 100 MG TABLET Take 1 tablet by mouth daily * NITROGLYCERIN 0.4 MG SUBLINGU* Dissolve 1 tablet under the t* ONDANSETRON 4 MG DISINTEGRATI* Take 1 tablet by mouth every * HYDROCODONE 5 MG-ACETAMINOPHE* Take 1 tablet by mouth once d* WARFARIN 5 MG TABLET Take 1 tablet by mouth once d* ANASTROZOLE 1 MG TABLET Take 1 tablet by mouth once d* LISINOPRIL 20 MG TABLET Take 1 tablet by mouth twice * ATORVASTATIN 40 MG TABLET Take 1 tablet by mouth daily * PANTOPRAZOLE 20 MG TABLET,DEL* Take 1 tablet by mouth once d* FUROSEMIDE 20 MG TABLET Take 1 tablet by mouth once d* BLOOD-GLUCOSE METER KIT Glucose Meter of Choice - Kit* BLOOD SUGAR DIAGNOSTIC STRIPS Test blood sugar(s) one times* LANCETS Test blood sugar(s) one times* ERGOCALCIFEROL (VITAMIN D2) 5* Take 1 capsule by mouth once * IPRATROPIUM BROMIDE 0.03 % NA* Use 2 Sprays in the nose ever* ASPIRIN 81 MG CHEWABLE TABLET Take 2 tablets by mouth once * THERAPEUTIC MULTIVITAMIN TABL* Take 1 tablet by mouth daily * COMPOUNDED PRESCRIPTION L8020 Breast Prosthesis COMPOUNDED PRESCRIPTION L8000 Surgical/Mastectomy Bras FLUTICASONE 110 MCG/ACTUATION* Inhale 2 Puffs as instructed *Problem List As Of Date 04/03/2017 Noted Resolved Coronary atherosclerosis [I25.10] INVALID FOR* More... More... Essential hypertension [I10] INVALID FOR* Venous (peripheral) insufficiency [I87.2] INVALID FOR* Anxiety state [F41.1] INVALID FOR* More... FEMALE STRESS INCONTINENCE [N39.3] INVALID FOR* ABNORMAL LIVER FUNCTION STUDY [R94.5] INVALID FOR*01/13/2006 More... Allergic rhinitis [J30.9] INVALID FOR* INT DERANGEMENT KNEE NOS [M23.90] INVALID FOR*07/12/2005 TEAR MED MENISC KNEE-CURRENT [[id number]] INVALID FOR*07/12/2005 LATERAL EPICONDYLITIS [M77.10] INVALID FOR*06/03/2005 MONONEURITIS ARM NEC [G56.80] INVALID FOR*06/03/2005 AFTERCARE NOS [Z51.89] INVALID FOR*07/12/2005 Primary Localized Osteoarthrosis, Lower Leg [M1*INVALID FOR*02/09/2009 PES ANSERINUS TENDINITIS [[id number]] INVALID FOR*01/13/2006 SYMPTOMATIC FEMALE CLIMACTERIC STATE [N95.1] INVALID FOR* PULM EMBOLISM/INFARCT NOS [I26.99] INVALID FOR*02/29/2008 Asthma [J45.909] INVALID FOR* DIABETES MELLITUS TYPE II-UNCOMPL [E11.9] INVALID FOR*09/15/2008 Dermatophytosis of nail [B35.1] INVALID FOR*05/31/2012 Other acquired deformity of toe [M20.5X9] INVALID FOR*11/22/2011 Hallux valgus (acquired) [M20.10] INVALID FOR*05/31/2012 Pain in limb [M79.609] INVALID FOR*05/31/2012 DIABETES TYPE II W NEURO MANIFESTATIONS [E11.49]INVALID FOR*09/15/2008 Unspecified deformity of ankle and foot, acquir*INVALID FOR*11/22/2011 Dysmetabolic Syndrome X [E88.81] INVALID FOR*02/18/2009 PULMONARY EMBOLISM [I26.99] INVALID FOR*10/15/2008 Depressive disorder [F32.9] INVALID FOR* Diabetes mellitus type II, controlled (HCC) [E1*INVALID FOR* More... Lumbago [M54.5] INVALID FOR*03/07/2017 More... Enthesopathy of hip region [M76.899] INVALID FOR*05/31/2012 Unspecified arthropathy, pelvic region and thig*INVALID FOR*05/31/2012 Irritated//Inflamed seborrheic keratosis [L82.0]INVALID FOR*05/31/2012 Other seborrheic keratoses [L82.1] INVALID FOR*05/31/2012 Actinic Damage//Sun-damaged skin [L57.8] INVALID FOR*05/31/2012 Solar lentigines [L81.4] INVALID FOR*05/31/2012 Skin tag [L91.8] INVALID FOR*05/31/2012 Epidermal cyst [L72.0] INVALID FOR*05/31/2012 Milia [L72.0] INVALID FOR*05/31/2012 Sebaceous Hyperplasia [L73.9] INVALID FOR*05/31/2012 Abdominal pain, acute, right upper quadrant [R1*INVALID FOR*11/22/2011 Acute gastritis without mention of hemorrhage [*INVALID FOR*12/30/2014 Abdominal pain, unspecified site [R10.9] INVALID FOR*11/22/2011 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 More... 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 KASIA (acute kidney injury) [N17.9] INVALID FOR*04/07/2013 Priority: F More... Acute blood loss anemia [D62] INVALID FOR*12/26/2013 Priority: H More... Atrial fibrillation [I48.91] INVALID FOR* Hypoxemia [R09.02] INVALID FOR*04/07/2013 Priority: B More... Atelectasis/Pleural Effusion/FVO [J98.11] INVALID FOR*12/26/2013 Priority: B More... More... Hyperlipidemia with target LDL less than 70 [E7*INVALID FOR* More... History of venous thromboembolism [Z86.718] INVALID FOR*03/07/2017 Anticoagulation management encounter [Z51.81, Z*INVALID FOR* Non-proliferative diabetic retinopathy (HCC) [E*INVALID FOR* Vaginal burning [N94.9] INVALID FOR*12/30/2014 Hematuria [R31.9] INVALID FOR*03/07/2017 UTI (lower urinary tract infection) [N39.0] INVALID FOR*12/30/2014 Right flank pain [R10.9] INVALID FOR*12/30/2014 Family history of malignant neoplasm of gastroi*INVALID FOR*02/19/2015 Vitamin D deficiency [E55.9] INVALID FOR* Pain in right hip [M25.551] INVALID FOR* Unstable angina (HCC) [I20.0] INVALID FOR*02/07/2016 Priority: Mild More... HTN (hypertension) [I10] INVALID FOR*03/07/2017 CAD (coronary artery disease) [I25.10] INVALID FOR*03/07/2017 More... VTE (venous thromboembolism) [I82.90] INVALID FOR*07/26/2016 More... 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 Patient states she was talking to her and allof a sudden could barely get her words out even though she knew what shewanted to say and speech was garbled. Thinks it may have lasted less than10 minutes. Right after this felt a little shaky and had pain on the topof her head that she treated with Tylenol and eventually resolved. Feltjust like regular headache. Denies any other associated symptoms includingunilateral weakness, facial drooping, visual disturbance, tremors,shaking, numbness, tingling. Patient is diabetic, did not check her bloodsugar when speech difficulty occurred. Intermittent dizziness whengetting out of bed for about one month prior which has since resolved.Also reports over the past 6 or more months seems to lose her train ofthought and forgets what she wants to say or the words won't just comeright away. Has had balance problems for the past year. No recent fallor head injury. No history of CVA or TIA. No excessive caffeine intake.Does not drink alcohol, no drug use. No new medications. No recentillnesses.Is currently taking Coumadin for Afib- Last INR two weeks ago, 1.7. Doseincreased to 7.5 mg 2 days a week and 5 mg all other days. Due to haverechecked tomorrow. History of CAD. Just had cholesterol levels checkedand takes statin medication daily.REVIEW OF SYSTEMSGeneral: no fevers, no chills, no night sweats, no recurrent infections,no change in appetite, no change in energy and no significant changes inweightHEENT: no frequent or significant headaches, no changes in hearing, novisual changesRespiratory: no cough, no wheezing, no shortness of breath, no hemoptysisCardiovascular: no chest pain, no chest pressure, no palpitations and noswellingGI: Negative for abdominal discomfort, blood in stools or black stools,nausea, vomiting, diarrheaPsych: Negative for sleep disturbance, Positive for severe stress due tohusband that is very sick. History of anxiety and depression. Currentlytaking Xanax and Trazodone at bedtime and Effexor daily.Endocrine: no fatigue, no weight gain, no weight loss, no hair loss, nodry skin, no cold intolerance, no heat intolerance and no neckpain/pressureNeurologic : no syncope, no seizures, no memory loss, no confusion, nonumbness or tingling of hands, no numbness or tingling of feet, noinvoluntary movements, no tremorPAST MEDICAL HISTORYDiagnosis Date- Acute gastritis without mention of hemorrhage- Allergic rhinitis, cause unspecified 01/24/2005- Anxiety state, unspecified 01/24/2005- Asthma- Atrial fibrillation (HCC)- Breast cancer (HCC) 1989 Right- Chronic obstructive pulmonary disease (COPD) (HCC)- 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 11/25/2016- Coronary atherosclerosis of unspecified type of vessel, [place] or graft01/24/2005 Stent to LAD, RCA 2003.- Depressive disorder, not elsewhere classified 10/15/2008- Diverticulosis of colon (without mention of hemorrhage)- DVT (deep venous thrombosis) ([facility]) 03/04/2009- Dysmetabolic syndrome X 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- Female stress incontinence 01/24/2005- Intestinal adhesions 07/09/2011- Lumbago 06/17/09 low back pain- Malignant neoplasm of breast (female), unspecified site 01/24/20051990 with no recurrence.- Malignant neoplasm of breast (female), unspecified site 2012 Breast cancer left- Microcalcifications of the breast- Nonspecific abnormal results of liver function study 01/24/2005 Fatty liver, nonalcoholic, chronic- Other and unspecified hyperlipidemia 01/24/2005- Other pulmonary embolism and infarction 03/10/2007- S/P epidural steroid injection Dec 2015 back/hip pain- Snoring- Type II or unspecified type diabetes mellitus without mention ofcomplication, not stated as uncontrolled 10/15/2008- Unspecified essential hypertension 01/24/2005- Unspecified venous (peripheral) insufficiency 01/24/2005 EdemaPAST SURGICAL HISTORYProcedure Laterality Date- APPENDECTOMY 2002- BX BREAST PERC VACUUM/ROTN 06/21/12 left- BX/REMV,LYMPH NODE,DEEP AXILL 07-11-12 LEFT- CABG, ARTERY-VEIN, TWO CABG, two grafts- COLONOSCOP W/ OR W/O BRS SPEC 05/30/2004 Hemant Nolen [place]- COLONOSCOP W/ OR W/O BRS SPEC 09/15/09- COLONOSCOP W/ OR W/O BRS SPEC 02/19/15 Colonoscopy- CYSTOSCOPY 01/01/13 Liam office cysto for khadijah/urge incont- DANDC, DIAG AND/OR THERAPEUTIC SAB about 54 yrs. ago- EGD W/O BRSH SPECIMEN W/BX 03/28/11- KNEE SCOPE,DIAGNOSTIC 1994 Arthroscopy, knee, left- KNEE SCOPE,DIAGNOSTIC 06-21-05 Arthroscopy, knee, right- LAP CHOLECYSTECT/CHOLANGIOGRAPH Y 07/08/11 significant umbilical adhesions, Normal IOC- LEFT HEART CATH,PERCUTANEOUS 10/12/2015 Cardiac cath, L heart- MASTECTOMY 1990 right radical with lymph node dissection- MASTECTOMY, PARTIAL 07-11-12 LEFT- MASTECTOMY, SIMPLE, COMPLETE 11/26/1990 Right sided, axillary dissection- PAST SURGICAL HISTORY OF 1997 left clavicle reduction- PAST SURGICAL HISTORY OF left bunionectomy, 2nd toe arthrodesis- REMV CATARACT EXTRACAP,INSERT LENS Cataract Removal- both- REPAIR ING HERNIA,5+Y/O,REDUCIBL 1959 and 1967 Hernia repair, inguinal, right- REPAIR ROTATOR CUFF,ACUTE Rotator cuff repair left- REPAIR UMBILICAL MARIO,<5Y/O,REDUC 2004 Hernia repair, umbilical- STENT PLACEMENT 2003 LAD,RCA- VAGINAL HYSTERECTOMY 1968 Hysterectomy, vaginalALLERGIES Lovastatin; Statins [Jjbcvgn-Orr-Jcc Reductase Inhibitors];Codeine; Penicillins; Vicodin [Hydrocodone-Acetaminophen] ; Zetia[Ezetimibe]MEDICATIONS ALPRAZolam (XANAX) 0.5 mg tablet Take 1 tablet by mouth twice daily asneeded.TENS Units jahaira 1 Device as needed.meclizine (ANTIVERT) 25 mg tab Take 1 tablet by mouth three times daily asneeded (dizziness).TENS unit and electrodes cmpk Use as instructed.venlafaxine (EFFEXOR) 75 mg tablet Take two (2) tablets in the AM and one(1) tablet in the PM.ipratropium-albuterol (COMBIVENT RESPIMAT) 20-100 mcg/actuation mistInhale 1 Puff as instructed four times daily.traMADol (ULTRAM) 50 mg tablet Take 1 tablet by mouth every 6 hours asneeded.metoprolol tartrate, short acting, (LOPRESSOR) 50 mg tablet Take 2 tabletsby mouth twice daily.traZODone (DESYREL) 100 mg tablet Take 1 tablet by mouth daily at bedtime.nitroglycerin sublingual (NITROQUICK) 0.4 mg SL tablet Dissolve 1 tabletunder the tongue as needed. FOR CHEST PAIN. IF NO RELIEF CALL 911ondansetron orally disintegrating (ZOFRAN ODT) 4 mg disintegrating tabletTake 1 tablet by mouth every 8 hours as needed for Nausea/Vomiting.HYDROcodone -acetaminophen (NORCO) 5-325 mg per tablet Take 1 tablet bymouth once daily. For back,hip pain.warfarin (COUMADIN) 5 mg tablet Take 1 tablet by mouth once daily.anastrozole (ARIMIDEX) 1 mg tablet Take 1 tablet by mouth once daily.lisinopril (PRINIVIL) 20 mg tablet Take 1 tablet by mouth twice daily.atorvastatin (LIPITOR) 40 mg tablet Take 1 tablet by mouth daily atbedtime.pantoprazole DR (PROTONIX) 20 mg tablet Take 1 tablet by mouth once daily.furosemide (LASIX) 20 mg tablet Take 1 tablet by mouth once daily.Blood-Glucose Meter monitoring kit Glucose Meter of Choice - Kit - Dx:E11.40.blood sugar diagnostic (BLOOD GLUCOSE TEST) test strip Test blood sugar(s)one times daily. Dx: Type 2 DM - Controlled E11.40 Insulin: NoLancets lancets Test blood sugar(s) one times daily. Dx: Type 2 DM -Controlled E11.40 Insulin: Noergocalciferol, vitamin D2, (DRISDOL) 50,000 unit capsule Take 1 capsuleby mouth once each week.Ipratropium [place] (ATROVENT) 0.03 % nasal spray Use 2 Sprays in the noseevery 12 hours.aspirin 81 mg chewable tablet Take 2 tablets by mouth once daily.therapeutic multivitamin tablet Take 1 tablet by mouth daily withbreakfast.COMPOUNDED PRESCRIPTION L8020 Breast ProsthesisCOMPOUNDED PRESCRIPTION L8000 Surgical/Mastectomy Brasfluticasone (FLOVENT HFA) 110 mcg/Actuation INHALATION inhaler Inhale 2Puffs as instructed twice daily. Use with spacer. Rinse mouth out afteruse.amLODIPine (NORVASC) 5 mg tablet Take 1 tablet by mouth once daily.FAMILY HISTORYProblem Relation Age of Onset- Colon Cancer Mother- Lipids Mother- UNKNOWN [OTHER] Father NO CONTACT WITH FATHER- Heart Brother- Breast Cancer Daughter- Diabetes Maternal Grandmother all of mother's siblings with diabetes- Stroke Maternal Grandmother- Ischemic Heart Disease Maternal GrandfatherSocial HistorySubstance Use Topics- Smoking status: Former Smoker Packs/day: 1.00 Years: 25.00 Types: Cigarettes Quit date: 05/29/1987- Smokeless tobacco: Never Used- Alcohol use 6.0 oz/week Comment: 1 glass of wine per month or lessPHYSICAL EXAMBP 122/60 (BP Site: Right Arm, BP Position: Sitting, BP Cuff Size: LargeAdult) Pulse 64 Resp 16 Wt 80.2 kg (176 lb 12.8 oz) BMI 34.53kg/i6Xrvywwk Appearance: well appearing, in no acute distress, alertPysch: mood and affect broad and appropriateSkin: Skin color, texture, turgor normal for age;Head: normocephalic, atraumaticEyes: PERRLA, EOM's intact, conjunctiva pink and moist, no icterus,sclera white, non-injectedNeck: Thyroid normal size and symmetric without palpable nodules, Nobruits, Neck supple, No adenopathyOropharynx: lips normal without lesions, tongue midline and normal, softpalate, uvula, and tonsils normalLungs: Lungs clear to auscultation. No wheezing, rhonchi, ralesHeart: RRR without murmur, gallop, or rubs. No ectopyAbdomen: Abdomen soft, non-tender. Bowel sounds normal. No masses,organomegalyNeurolog ical: Negative findings: speech normal, mental status intact,cranial nerves 2-12 intact, gait, including heel, toe, and tandem walkingnormal, Romberg negative, muscle strength normal, finger to nose normal,reflexes normal and symmetric, plantar response downgoing bilaterallyExt: no edema in LE bilaterally, good distal pulsesComponent Latest Ref Rng AND Units 03/06/2017 03/21/2017WBC 3.70 - 11.00 k/uL 7.44RBC 3.90 - 5.20 m/uL 4.74Hemoglobin 11.5 - 15.5 g/dL 14.5Hematocrit 36.0 - 46.0 % 44.8MCV 80.0 - 100.0 fL 94.5MCH 26.0 - 34.0 pG 30.6MCHC 30.5 - 36.0 g/dL 32.4RDW-CV 11.5 - 15.0 % 12.5Platelet Count 150 - 400 k/uL 257MPV 9.0 - 12.7 fL 11.1Neut% % 61.3Abs Neut (ANC) 1.45 - 7.50 k/uL 4.56Lymph% % 28.0Abs Lymph 1.00 - 4.00 k/uL 2.08Mono% % 6.7Abs [place] <0.87 k/uL 0.50Eosin% % 3.2Abs Eosin <0.46 k/uL 0.24Baso% % 0.8Abs Baso <0.11 k/uL 0.06Nucleated Reds 0 /100 WBC 0.0Absolute nRBC 0.00 k/uL 0.00Diff Type Auto DiffProtein, Total 6.3 - 8.0 g/dL 7.2Albumin 3.9 - 4.9 g/dL 4.0Calcium 8.5 - 10.2 mg/dL 9.1Bilirubin, Total 0.2 - 1.3 mg/dL 0.4Alkaline Phosphatase 32 - 117 U/L 81AST 13 - 35 U/L 24Glucose 74 - 99 mg/dL 145 (H)BUN 7 - 21 mg/dL 15Creatinine 0.58 - 0.96 mg/dL 0.76Sodium 136 - 144 mmol/L 142Potassium 3.7 - 5.1 mmol/L 4.0Chloride 97 - 105 mmol/L 98CO2 22 - 30 mmol/L 29Anion Gap 9 - 18 mmol/L 15ALT 7 - 38 U/L 16eGFR- >60eGFR-All Other Races . >60Triglyceride 30 - 149 mg/dL 172 (H)Cholesterol 100 - 199 mg/dL 171HDL Cholesterol >55 mg/dL 37 (L)VLDL Cholesterol 6 - 40 mg/dL 34LDL Cholesterol 60 - 129 mg/dL 100Fasting Time hrs 12TC:HDL Ratio 1.00 - 5.00 4.62LDL:HDL Ratio 0.50 - 3.55 2.70Non HDL Cholesterol 90 - 159 mg/dL 134Creatinine, Ur Random (UCRR) 20 - 300 mg/dL 72.0Albumin, Urine Random 0.0 - 23.0 mg/L 17.4Albumin/Creat Ratio 0 - 30 mg/g 24Hemoglobin A1C 4.3 - 5.6 % 6.4 (H)Estimated Average Glucose mg/dL 137INR (POCT) 0.8 - 1.2 1.9 (H) 1.7 (H)Internal Quality Check Acceptable AcceptableVitamin D 25 Hydroxy 31.0 - 80.0 ng/mL 48.6ASSESSMENT/PLAN:1. Garbled speech - ICD9: 784.59, ICD10: R47.89 (primary diagnosis)Symptoms consistent with TIA. Patient has multiple risk factors includingAfib, CAD, DiabetesWork-up with stat labs and MRI/MRA of the brain, see ordersReviewed red flag symptoms with patient requiring emergency roomevaluation including severe headache, visual disturbance, unilateralweakness, confusion, slurred speech, gait disturbance or syncopeFollow-up pending results of work-up- LIAM ISTAT BMP- LIAM CBC- MRI BRAIN WO/W IVCON- MRA BRAIN WO IVCON2. Expressive aphasia - ICD9: 784.3, ICD10: R47.01As above- LIAM ISTAT BMP- LIAM CBC- MRI BRAIN WO/W IVCON- MRA BRAIN WO IVCON3. Atrial fibrillation, unspecified type (HCC) - ICD9: 427.31, ICD10:I48.91Check INR todayPlan as above- PROTHROMBIN TIME/PT- MRI BRAIN WO/W IVCON- MRA BRAIN WO IVCON4. Atherosclerosis of [place] coronary artery of [place] heart, anginapresence unspecified - ICD9: 414.01, ICD10: I25.10Cholesterol levels checked one month ago, normal. Taking statin asprescribed- MRI BRAIN WO/W IVCON- MRA BRAIN WO IVCONNaz Older, CNPPrescription instructions reviewed with patient as applicable. Potentialred flag symptoms discussed with the patient. Reviewed appropriate actionplan to take if red flag symptoms occur. Patient agreeable to treatmentplan. Normal [facility] 03-21-2017 HOSP Anticoagulation Visi t (COUMWS) -------DYLANCOLETTE ([id number]) 1935 FDate Time Provider Uytlutqzqb42/24/17 11:30 AM ANTICOAG [facility] COUMWS During your visit today, we recorded the following information about you:Cassidy Thomas LPN 03/21/2017 11:45 AM SignedINR 1.7 - results reviewed with patient. Current dose is 5 mg daily with lastdose change 09/01/2016. Previous INR on 03/06/2017 was 1.9.Pt is scheduled for repeat INR in 1 week.Advised she would be contacted regarding dosage instructions and followupappointment after review with . Written instructions given and sheverbalized understanding.Kamar Franklin MD 03/21/2017 2:11 PM SignedIncrease Coumadin dose. 7.5 mg on Tue and Amber and 5 mg on all other 5 days ofthe week. INR in 2 weeks.Cassidy Thomas LPN 03/21/2017 2:11 PM Signedpt notified to take 7.5 mg Tu Th and 5 mg all other days, pt correctly readback instructions, appointment scheduled for 2 weeks.Referring Provider: KAMAR FRANKLIN [[id number]]Allergies As of Date: 03/21/2017 Noted Allergy ReactionLOVASTATIN 01/08/2015 17 - Myalgia Comments: Leg painsSTATINS (DFLLRGK-BDZ-SCF REDUCTAS*11/22/2005 14 - Other: See Comments Comments: elevated liver enzymes.CODEINE 01/24/2005 Comments: nauseaPENICILLINS 01/24/2005 Comments: felt throat was swollenVICODIN (HYDROCODONE-ACETAMINOPHE*0 07/15/2011 9 - ItchingZETIA (EZETIMIBE) 06/28/2006 5 - Intolerance Comments: elevated liver enzymesDate Reviewed: 03/07/2017Reviewed by: Emma Ayala LPN - Fully AssessedVisit Diagnoses:Anticoagulation management encounter [Z51.81, Z79.01] Chronic atrial fibrillation (HCC) [I48.2]Prescriptions as of 03/21/2017 Sig: ALPRAZOLAM 0.5 MG TABLET Take 1 tablet by mouth twice * TRANSCUTANEOUS ELECTRICAL NER* 1 Device as needed. MECLIZINE 25 MG TABLET Take 1 tablet by mouth three * TENS UNIT AND ELECTRODES COMB* Use as instructed. VENLAFAXINE 75 MG TABLET Take two (2) tablets in the A* IPRATROPIUM 20 MCG-ALBUTEROL * Inhale 1 Puff as instructed f* TRAMADOL 50 MG TABLET Take 1 tablet by mouth every * METOPROLOL TARTRATE 50 MG TAB* Take 2 tablets by mouth twice* TRAZODONE 100 MG TABLET Take 1 tablet by mouth daily * NITROGLYCERIN 0.4 MG SUBLINGU* Dissolve 1 tablet under the t* ONDANSETRON 4 MG DISINTEGRATI* Take 1 tablet by mouth every * HYDROCODONE 5 MG-ACETAMINOPHE* Take 1 tablet by mouth once d* WARFARIN 5 MG TABLET Take 1 tablet by mouth once d* ANASTROZOLE 1 MG TABLET Take 1 tablet by mouth once d* LISINOPRIL 20 MG TABLET Take 1 tablet by mouth twice * ATORVASTATIN 40 MG TABLET Take 1 tablet by mouth daily * PANTOPRAZOLE 20 MG TABLET,DEL* Take 1 tablet by mouth once d* AMLODIPINE 5 MG TABLET Take 1 tablet by mouth once d* FUROSEMIDE 20 MG TABLET Take 1 tablet by mouth once d* BLOOD-GLUCOSE METER KIT Glucose Meter of Choice - Kit* BLOOD SUGAR DIAGNOSTIC STRIPS Test blood sugar(s) one times* LANCETS Test blood sugar(s) one times* ERGOCALCIFEROL (VITAMIN D2) 5* Take 1 capsule by mouth once * IPRATROPIUM BROMIDE 0.03 % NA* Use 2 Sprays in the nose ever* ASPIRIN 81 MG CHEWABLE TABLET Take 2 tablets by mouth once * THERAPEUTIC MULTIVITAMIN TABL* Take 1 tablet by mouth daily * COMPOUNDED PRESCRIPTION L8020 Breast Prosthesis COMPOUNDED PRESCRIPTION L8000 Surgical/Mastectomy Bras FLUTICASONE 110 MCG/ACTUATION* Inhale 2 Puffs as instructed *Problem List As Of Date 03/21/2017 Noted Resolved Coronary atherosclerosis [I25.10] INVALID FOR* More... More... Essential hypertension [I10] INVALID FOR* Venous (peripheral) insufficiency [I87.2] INVALID FOR* Anxiety state [F41.1] INVALID FOR* More... FEMALE STRESS INCONTINENCE [N39.3] INVALID FOR* ABNORMAL LIVER FUNCTION STUDY [R94.5] INVALID FOR*01/13/2006 More... Allergic rhinitis [J30.9] INVALID FOR* INT DERANGEMENT KNEE NOS [M23.90] INVALID FOR*07/12/2005 TEAR MED MENISC KNEE-CURRENT [[id number]] INVALID FOR*07/12/2005 LATERAL EPICONDYLITIS [M77.10] INVALID FOR*06/03/2005 MONONEURITIS ARM NEC [G56.80] INVALID FOR*06/03/2005 AFTERCARE NOS [Z51.89] INVALID FOR*07/12/2005 Primary Localized Osteoarthrosis, Lower Leg [M1*INVALID FOR*02/09/2009 PES ANSERINUS TENDINITIS [IRH4612] INVALID FOR*01/13/2006 SYMPTOMATIC FEMALE CLIMACTERIC STATE [N95.1] INVALID FOR* PULM EMBOLISM/INFARCT NOS [I26.99] INVALID FOR*02/29/2008 Asthma [J45.909] INVALID FOR* DIABETES MELLITUS TYPE II-UNCOMPL [E11.9] INVALID FOR*09/15/2008 Dermatophytosis of nail [B35.1] INVALID FOR*05/31/2012 Other acquired deformity of toe [M20.5X9] INVALID FOR*11/22/2011 Hallux valgus (acquired) [M20.10] INVALID FOR*05/31/2012 Pain in limb [M79.609] INVALID FOR*05/31/2012 DIABETES TYPE II W NEURO MANIFESTATIONS [E11.49]INVALID FOR*09/15/2008 Unspecified deformity of ankle and foot, acquir*INVALID FOR*11/22/2011 Dysmetabolic Syndrome X [E88.81] INVALID FOR*02/18/2009 PULMONARY EMBOLISM [I26.99] INVALID FOR*10/15/2008 Depressive disorder [F32.9] INVALID FOR* Diabetes mellitus type II, controlled (HCC) [E1*INVALID FOR* More... Lumbago [M54.5] INVALID FOR*03/07/2017 More... Enthesopathy of hip region [M76.899] INVALID FOR*05/31/2012 Unspecified arthropathy, pelvic region and thig*INVALID FOR*05/31/2012 Irritated//Inflamed seborrheic keratosis [L82.0]INVALID FOR*05/31/2012 Other seborrheic keratoses [L82.1] INVALID FOR*05/31/2012 Actinic Damage//Sun-damaged skin [L57.8] INVALID FOR*05/31/2012 Solar lentigines [L81.4] INVALID FOR*05/31/2012 Skin tag [L91.8] INVALID FOR*05/31/2012 Epidermal cyst [L72.0] INVALID FOR*05/31/2012 Milia [L72.0] INVALID FOR*05/31/2012 Sebaceous Hyperplasia [L73.9] INVALID FOR*05/31/2012 Abdominal pain, acute, right upper quadrant [R1*INVALID FOR*11/22/2011 Acute gastritis without mention of hemorrhage [*INVALID FOR*12/30/2014 Abdominal pain, unspecified site [R10.9] INVALID FOR*11/22/2011 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 More... 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 KASIA (acute kidney injury) [N17.9] INVALID FOR*04/07/2013 Priority: F More... Acute blood loss anemia [D62] INVALID FOR*12/26/2013 Priority: H More... Atrial fibrillation [I48.91] INVALID FOR* Hypoxemia [R09.02] INVALID FOR*04/07/2013 Priority: B More... Atelectasis/Pleural Effusion/FVO [J98.11] INVALID FOR*12/26/2013 Priority: B More... More... Hyperlipidemia with target LDL less than 70 [E7*INVALID FOR* More... History of venous thromboembolism [Z86.718] INVALID FOR*03/07/2017 Anticoagulation management encounter [Z51.81, Z*INVALID FOR* Non-proliferative diabetic retinopathy (HCC) [E*INVALID FOR* Vaginal burning [N94.9] INVALID FOR*12/30/2014 Hematuria [R31.9] INVALID FOR*03/07/2017 UTI (lower urinary tract infection) [N39.0] INVALID FOR*12/30/2014 Right flank pain [R10.9] INVALID FOR*12/30/2014 Family history of malignant neoplasm of gastroi*INVALID FOR*02/19/2015 Vitamin D deficiency [E55.9] INVALID FOR* Pain in right hip [M25.551] INVALID FOR* Unstable angina (HCC) [I20.0] INVALID FOR*02/07/2016 Priority: Mild More... HTN (hypertension) [I10] INVALID FOR*03/07/2017 CAD (coronary artery disease) [I25.10] INVALID FOR*03/07/2017 More... VTE (venous thromboembolism) [I82.90] INVALID FOR*07/26/2016 More... 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 [facility] PROGRESS HNO ID: [id number] Author: Kamar Franklin Service: (none) Author Type: Physician Type: Progress Notes Filed: 03/21/2017 2:11 PM Note Text: Increase Coumadin dose. 7.5 mg on Tue and Amber and 5 mg on all other 5 days of the week. INR in 2 weeks. Normal [facility] PROGRESS HNO ID: [id number] thor: Cassidy Thomas RONNINService: (none)Author Type: (none)Type: Progress NotesFiled: 03/21/2017 11:45 AMNote Text:INR 1.7 - results reviewed with patient. Current dose is 5 mg daily withlast dose change 09/01/2016. Previous INR on 03/06/2017 was 1.9.Pt is scheduled for repeat INR in 1 week.Advised she would be contacted regarding dosage instructions and followupappointment after review with . Written instructions givenand she verbalized understanding. Normal [facility] PROGRESSon 03-08-2017 PROGRESS HNO ID: [id number] thor: Kamar Oswald: (none)Author Type: PhysicianType: Progress NotesFiled: 03/07/2017 10:35 PMNote Text:This note was created using Peter Blueberry.Juanito Richardson is a 81 year old female was here for an annual Medicarewellness and annual follow up. She was generally doing well. Caregiverstress was ongoing due to her spouse's declining health. Allergies andasthma were stable. atrial fibrillation was controlled, andanticoagulation was monitored. Chronic low back, SI joint, and hip painswere controlled. CAD was stable. DM was controlled. History of breastcancer was monitored. Other listed conditions were stable.Review of SystemsConstitutional: Negative.HENT: Negative.Respiratory: Negative.Cardiovascular: Negative.Endocrine: Negative for polydipsia and polyuria.Genitourinary: Positive for urgency. Negative for frequency.Neurological: Positive for light-headedness. Negative for dizziness andheadaches.Psychiatric/Be havioral: Positive for dysphoric mood. The patient isnervous/anxious.Objective BP 142/80 Pulse 72 Resp 12 Ht 152.4 cm (5') Wt 81.1 kg (178 lb12.8 oz) BMI 34.92 kg/c5Idqauklg ExamConstitutional: She is oriented to person, place, and time. She appearswell-nourished.HENT: Head: Normocephalic.Nose: Nose normal.Mouth/Throat: Oropharynx is clear and moist.Eyes: Conjunctivae are normal. Pupils are equal, round, and reactive tolight. No scleral icterus.Neck: Neck supple. Carotid bruit is not present. No thyromegaly present.Cardiovascular: S1 normal and S2 normal. An irregular rhythm present.No murmur heard.Pulmonary/Chest: Effort normal and breath sounds normal.Abdominal: Soft. She exhibits no mass. There is no tenderness.Musculoskeletal: She exhibits no edema or tenderness.Lymphadenopathy: She has no cervical adenopathy.Neurological: She is alert and oriented to person, place, and time. Nocranial nerve deficit. Coordination normal.Skin: No rash noted.Psychiatric: She has a normal mood and affect.Feet: Shoes and socks removed, No deformities, ulcers, calluses, normaldistal pulses, not sensitive to monofilament in some toes. and nailsnotable for Crumbly, Deformed, Hypertrophic or Yellowish.Hemoglobin A1C (%)Date Value10 6.404 6.5 )CMP:Glucose 145 03/06/2017BUN 15 03/06/2017Creatinine 0.76 03/06/2017Sodium 142 03/06/2017Potassium 4.0 03/06/2017Chloride 98 03/06/2017CO2 Content, Venous 29 03/06/2017Protein, Total 7.2 03/06/2017Albumin 4.0 03/06/2017Calcium 9.1 03/06/2017Alkaline Phosphatase 81 03/06/2017Bilirubin, Total 0.4 03/06/2017AST 24 03/06/2017ALT 16 03/06/2017ASSESSMENT/PLAN:1. Medicare annual wellness visit, subsequent - ICD9: V70.0, ICD10: Z00.00(primary diagnosis)See wellness note.2. Venous (peripheral) insufficiency - ICD9: 459.81, ICD10: I87.2Controlled.3. Atherosclerosis of [place] coronary artery of [place] heart, anginapresence unspecified - ICD9: 414.01, ICD10: I25.10Stable.4. Essential hypertension - ICD9: 401.9, ICD10: I10- good control- Continue current medication(s)- Reviewed risks of HTN and principles of treatment5. Anxiety state - ICD9: 300.00, ICD10: F41.1Controlled. ALPRAZOLAM refilled.6. Female stress incontinence - ICD9: 625.6, ICD10: N39.3Controlled.7. Allergic rhinitis, unspecified chronicity, unspecified seasonality,unspecified trigger - ICD9: 477.9, ICD10: J30.9Stable.8. Uncomplicated asthma, unspecified asthma severity, unspecified whetherpersistent - ICD9: 493.90, ICD10: J45.909Controlled.9. Depressive disorder - ICD9: 311, ICD10: F32.9Controlled.10. Controlled type 2 diabetes mellitus with diabetic neuropathy, withoutlong-term current use of insulin (HCC) - ICD9: 250.60, 357.2, ICD10:E11.40Controlled.- Continue current cafieukpsst21. Carcinoma of left breast, estrogen and progesterone receptor positive(HCC) - ICD9: 174.9, V86.0, ICD10: C50.912, Z17.0Per oncology.12. Chronic atrial fibrillation (HCC) - ICD9: 427.31, ICD10: I48.2Controlled, anticoagulated.13. Symptomatic menopausal or female climacteric states - ICD9: 627.2,ICD10: N95.1Related to hormonal therapy.14. Hyperlipidemia with target LDL less than 70 - ICD9: 272.4, ICD10:E78.5- good control- Continue current medication.Kamar Franklin MD [facility] CNOVon 03-07-2017 CNOV Office Visit (INTMWS) -------COLETTE RICHARDSON ([id number]) 1935 [facility] Time Provider Xxnofoomsg00/10/17 3:00 PM KAMAR FRANKLIN INTTAJ During your visit today, we recorded the following information about you: Pulse Respiration Blood pressure Weight 72/minute 12/minute 142/80 81.1 kg Height 1.524 Megan Franklin MD 03/07/2017 10:35 PM SignedMedicare Yearly VisitMedical B eligibilty date 2003Date of last exam N/APAST MEDICAL HISTORYDiagnosis Date- Acute gastritis without mention of hemorrhage- Allergic rhinitis, cause unspecified 01/24/2005- Anxiety state, unspecified 01/24/2005- Asthma- Atrial fibrillation (HCC)- Breast cancer (HCC) 1989 Right- Chronic obstructive pulmonary disease (COPD) (HCC)- 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 11/25/2016- Coronary atherosclerosis of unspecified type of vessel, [place] or graft01/24/2005 Stent to LAD, RCA 2003.- Depressive disorder, not elsewhere classified 10/15/2008- Diverticulosis of colon (without mention of hemorrhage)- DVT (deep venous thrombosis) (HCC) 03/04/2009- Dysmetabolic syndrome X 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- Female stress incontinence 01/24/2005- Intestinal adhesions 07/09/2011- Lumbago 06/17/09 low back pain- Malignant neoplasm of breast (female), unspecified site 01/24/20051990 with no recurrence.- Malignant neoplasm of breast (female), unspecified site 2012 Breast cancer left- Microcalcifications of the breast- Nonspecific abnormal results of liver function study 01/24/2005 Fatty liver, nonalcoholic, chronic- Other and unspecified hyperlipidemia 01/24/2005- Other pulmonary embolism and infarction 03/10/2007- S/P epidural steroid injection Dec 2015 back/hip pain- Snoring- Type II or unspecified type diabetes mellitus without mention ofcomplication, not stated as uncontrolled 10/15/2008- Unspecified essential hypertension 01/24/2005- Unspecified venous (peripheral) insufficiency 01/24/2005 EdemaPAST SURGICAL HISTORYProcedure Laterality Date- APPENDECTOMY 2002- BX BREAST PERC VACUUM/ROTN 06/21/12 left- BX/REMV,LYMPH NODE,DEEP AXILL 07-11-12 LEFT- CABG, ARTERY-VEIN, TWO CABG, two grafts- COLONOSCOP W/ OR W/O BRSH SPEC 05/30/2004 ColonoscopyHemant LA- COLONOSCOP W/ OR W/O BRSH SPEC 09/15/09- COLONOSCOP W/ OR W/O BRSH SPEC 02/19/15 Colonoscopy- CYSTOSCOPY 01/01/13 Liam office cysto for khadijah/urge incont- DANDamp;C, DIAG AND/OR THERAPEUTIC SAB about 54 yrs. ago- EGD W/O [facility] SPECIMEN W/BX 03/28/11- KNEE SCOPE,DIAGNOSTIC 1994 Arthroscopy, knee, left- KNEE SCOPE,DIAGNOSTIC 06-21-05 Arthroscopy, knee, right- LAP CHOLECYSTECT/CHOLANGIOGRAPH Y 07/08/11 significant umbilical adhesions, Normal IOC- LEFT HEART CATH,PERCUTANEOUS 10/12/2015 Cardiac cath, L heart- MASTECTOMY 1990 right radical with lymph node dissection- MASTECTOMY, PARTIAL 07-11-12 LEFT- MASTECTOMY, SIMPLE, COMPLETE 11/26/1990 Right sided, axillary dissection- PAST SURGICAL HISTORY OF 1997 left clavicle reduction- PAST SURGICAL HISTORY OF left bunionectomy, 2nd toe arthrodesis- REMV CATARACT EXTRACAP,INSERT LENS Cataract Removal- both- REPAIR ING HERNIA,5+Y/O,REDUCIBL 1959 and 1967 Hernia repair, inguinal, right- REPAIR ROTATOR CUFF,ACUTE Rotator cuff repair left- REPAIR UMBILICAL MARIO,ANDlt;5Y/O,REDUC 2004 Hernia repair, umbilical- STENT PLACEMENT 2003 LAD,RCA- VAGINAL HYSTERECTOMY 1968 Hysterectomy, vaginalLovastatin; Statins [Uvrudxl-Ubh-Cmv Reductase Inhibitors]; Codeine;Penicillins; Vicodin [Hydrocodone-Acetaminophen] ; Zetia [Ezetimibe]Medications reviewed: YesFAMILY HISTORYProblem Relation Age of Onset- Colon Cancer Mother- Heart Brother- UNKNOWN [Other] [OTHER] Father NO CONTACT WITH FATHER- Breast Cancer Daughter- Diabetes Maternal Grandmother all of mother's siblings with diabetes- Stroke Maternal Grandmother- Lipids Mother- Ischemic Heart Disease Maternal GrandfatherSOCIAL HISTORY:Social History Marital status: Spouse name: Years of education: Number of children: 3Occupational HistoryOccupation Employer CommentRETIREDSocial History Main Topics Smoking status: Former Smoker Packs/day: 1.00 Years: 25.00 Types: Cigarettes Quit date: 05/29/1987 Smokeless status: Never Used Alcohol use: Yes 6.0 oz/week Comment: 1 glass of wine per month or less Drug use: No Sexual activity: Not CurrentlyShelby denies regular aerobic exercise. She watches her diet for sodium, lowfat and low cholesterol some of the time.List of current specialists seen:Dr. Fay, pain management. Dr. Valdes, cardiology. Dr. Mer Rodriguez, radiationoncology. Dr. Knox, [facility].End of Live Planning discussed including patients advanced directive wishes: Chriss am willing to follow Colette's advanced directives.Depression screenShe in the past two weeks admits to having felt down, depressed, hopeless orwith little interest or pleasure in doing things.Functional Ability/Safety Screen1. Was the patient's timed Up and Go test unsteady or longer than 30 seconds?No2. Does the patient need help with the phone, transportation,shopping,pre paring meals, housework, laundry, medications or managing money? No3. Does your home have rugs in the hallway, lack of grab bars in the bathroom,lack of handrails on the stairs or have poor lighting? NoHearing Evaluation: normalPHYSICAL EXAMBP 142/80 Pulse 72 Resp 12 Ht 152.4 cm (5') Wt 81.1 kg (178 lb 12.8 oz) BMI 34.92 kg/g7Mrhjr and oriented X 3: YESBody mass index is 34.92 kg/(m2).Visual acuity: OD: 20/30 OS: 20/ 70 OU: 20/30.ASSESSMENT/PLAN:81 year old femaleThe following prevention plan was discussed during the office visit andprovided to the patient:Diabetic care. Vaccinations up to date.Arben Elmore MD 03/07/2017 10:35 PM SignedThis note was created using NoteWriter.Juanito Richardson is a 81 year old female was here for an annual Medicarewellness and annual follow up. She was generally doing well. Caregiver stresswas ongoing due to her spouse's declining health. Allergies and asthma werestable. atrial fibrillation was controlled, and anticoagulation was monitored. Chronic low back, SI joint, and hip pains were controlled. CAD was stable.DM was controlled. History of breast cancer was monitored. Other listedconditions were stable.Review of SystemsConstitutional: Negative.HENT: Negative.Respiratory: Negative.Cardiovascular: Negative.Endocrine: Negative for polydipsia and polyuria.Genitourinary: Positive for urgency. Negative for frequency.Neurological: Positive for light-headedness. Negative for dizziness andheadaches.Psychiatric/Be havioral: Positive for dysphoric mood. The patient isnervous/anxious.Objective BP 142/80 Pulse 72 Resp 12 Ht 152.4 cm (5') Wt 81.1 kg (178 lb 12.8 oz) BMI 34.92 kg/w2Cwylfead ExamConstitutional: She is oriented to person, place, and time. She appearswell-nourished.HENT: Head: Normocephalic.Nose: Nose normal.Mouth/Throat: Oropharynx is clear and moist.Eyes: Conjunctivae are normal. Pupils are equal, round, and reactive to light.No scleral icterus.Neck: Neck supple. Carotid bruit is not present. No thyromegaly present.Cardiovascular: S1 normal and S2 normal. An irregular rhythm present.No murmur heard.Pulmonary/Chest: Effort normal and breath sounds normal.Abdominal: Soft. She exhibits no mass. There is no tenderness.Musculoskeletal: She exhibits no edema or tenderness.Lymphadenopathy: She has no cervical adenopathy.Neurological: She is alert and oriented to person, place, and time. No cranialnerve deficit. Coordination normal.Skin: No rash noted.Psychiatric: She has a normal mood and affect.Feet: Shoes and socks removed, No deformities, ulcers, calluses, normal distalpulses, not sensitive to monofilament in some toes. and nails notable forCrumbly, Deformed, Hypertrophic or Yellowish.Hemoglobin A1C (%)Date Value03/06/2017 6.404/07/2016 6.5 )CMP:Glucose 145 03/06/2017BUN 15 03/06/2017Creatinine 0.76 03/06/2017Sodium 142 03/06/2017Potassium 4.0 03/06/2017Chloride 98 03/06/2017CO2 Content, Venous 29 03/06/2017Protein, Total 7.2 03/06/2017Albumin 4.0 03/06/2017Calcium 9.1 03/06/2017Alkaline Phosphatase 81 03/06/2017Bilirubin, Total 0.4 03/06/2017AST 24 03/06/2017ALT 16 03/06/2017ASSESSMENT/PLAN:1. Medicare annual wellness visit, subsequent - ICD9: V70.0, ICD10: Z00.00(primary diagnosis)See wellness note.2. Venous (peripheral) insufficiency - ICD9: 459.81, ICD10: I87.2Controlled.3. Atherosclerosis of [place] coronary artery of [place] heart, angina presenceunspecified - ICD9: 414.01, ICD10: I25.10Stable.4. Essential hypertension - ICD9: 401.9, ICD10: I10- good control- Continue current medication(s)- Reviewed risks of HTN and principles of treatment5. Anxiety state - ICD9: 300.00, ICD10: F41.1Controlled. ALPRAZOLAM refilled.6. Female stress incontinence - ICD9: 625.6, ICD10: N39.3Controlled.7. Allergic rhinitis, unspecified chronicity, unspecified seasonality,unspecified trigger - ICD9: 477.9, ICD10: J30.9Stable.8. Uncomplicated asthma, unspecified asthma severity, unspecified whetherpersistent - ICD9: 493.90, ICD10: J45.909Controlled.9. Depressive disorder - ICD9: 311, ICD10: F32.9Controlled.10. Controlled type 2 diabetes mellitus with diabetic neuropathy, withoutlong-term current use of insulin (HCC) - ICD9: 250.60, 357.2, ICD10: E11.40Controlled.- Continue current lirjbnwqfid54. Carcinoma of left breast, estrogen and progesterone receptor positive (HCC)- ICD9: 174.9, V86.0, ICD10: C50.912, Z17.0Per oncology.12. Chronic atrial fibrillation (HCC) - ICD9: 427.31, ICD10: I48.2Controlled, anticoagulated.13. Symptomatic menopausal or female climacteric states - ICD9: 627.2, ICD10:N95.1Related to hormonal therapy.14. Hyperlipidemia with target LDL less than 70 - ICD9: 272.4, ICD10: E78.5- good control- Continue current medication.Kamar Franklin, MAYURIeferring Provider: KAMAR FRANKLIN [[id number]]Allergies As of Date: 03/07/2017 Noted Allergy ReactionLOVASTATIN 01/08/2015 17 - Myalgia Comments: Leg painsSTATINS (EPLIZIA-IHW-GFL REDUCTAS*11/22/2005 14 - Other: See Comments Comments: elevated liver enzymes.CODEINE 01/24/2005 Comments: nauseaPENICILLINS 01/24/2005 Comments: felt throat was swollenVICODIN (HYDROCODONE-ACETAMINOPHE*0 07/15/2011 9 - ItchingZETIA (EZETIMIBE) 06/28/2006 5 - Intolerance Comments: elevated liver enzymesDate Reviewed: 03/07/2017Reviewed by: Emma Ayala LPN - Fully AssessedReason for Visit: Yearly Exam [187] Cmt: Review labsPrimary Visit Diagnosis:Medicare annual wellness visit, subsequent [Z00.00] Other Visit Diagnoses:Venous (peripheral) insufficiency [I87.2] Atherosclerosis of [place] coronary artery of [place] heart, angina presence unspecified [I25.10] Essential hypertension [I10] Anxiety state [F41.1] Female stress incontinence [N39.3] Allergic rhinitis, unspecified chronicity, unspecified seasonality, unspecified trigger [J30.9] Uncomplicated asthma, unspecified asthma severity, unspecified whether persistent [J45.909] Depressive disorder [F32.9] Controlled type 2 diabetes mellitus with diabetic neuropathy, without long-term current use of insulin (HCC) [E11.40] Carcinoma of left breast, estrogen and progesterone receptor positive (HCC) [C50.912, Z17.0] Chronic atrial fibrillation (HCC) [I48.2] Symptomatic menopausal or female climacteric states [N95.1] Hyperlipidemia with target LDL less than 70 [E78.5]Order(s):ALPRAZolam (XANAX) 0.5 mg tabletTake 1 tablet by mouth twice daily as needed.Disp: 60 tabletRfl: 5Prescriptions as of 03/07/2017 Sig: ALPRAZOLAM 0.5 MG TABLET Take 1 tablet by mouth twice * TRANSCUTANEOUS ELECTRICAL NER* 1 Device as needed. MECLIZINE 25 MG TABLET Take 1 tablet by mouth three * TENS UNIT AND ELECTRODES COMB* Use as instructed. VENLAFAXINE 75 MG TABLET Take two (2) tablets in the A* IPRATROPIUM 20 MCG-ALBUTEROL * Inhale 1 Puff as instructed f* TRAMADOL 50 MG TABLET Take 1 tablet by mouth every * METOPROLOL TARTRATE 50 MG TAB* Take 2 tablets by mouth twice* TRAZODONE 100 MG TABLET Take 1 tablet by mouth daily * NITROGLYCERIN 0.4 MG SUBLINGU* Dissolve 1 tablet under the t* ONDANSETRON 4 MG DISINTEGRATI* Take 1 tablet by mouth every * HYDROCODONE 5 MG-ACETAMINOPHE* Take 1 tablet by mouth once d* WARFARIN 5 MG TABLET Take 1 tablet by mouth once d* ANASTROZOLE 1 MG TABLET Take 1 tablet by mouth once d* LISINOPRIL 20 MG TABLET Take 1 tablet by mouth twice * ATORVASTATIN 40 MG TABLET Take 1 tablet by mouth daily * PANTOPRAZOLE 20 MG TABLET,DEL* Take 1 tablet by mouth once d* AMLODIPINE 5 MG TABLET Take 1 tablet by mouth once d* FUROSEMIDE 20 MG TABLET Take 1 tablet by mouth once d* BLOOD-GLUCOSE METER KIT Glucose Meter of Choice - Kit* BLOOD SUGAR DIAGNOSTIC STRIPS Test blood sugar(s) one times* LANCETS Test blood sugar(s) one times* ERGOCALCIFEROL (VITAMIN D2) 5* Take 1 capsule by mouth once * IPRATROPIUM BROMIDE 0.03 % NA* Use 2 Sprays in the nose ever* ASPIRIN 81 MG CHEWABLE TABLET Take 2 tablets by mouth once * THERAPEUTIC MULTIVITAMIN TABL* Take 1 tablet by mouth daily * COMPOUNDED PRESCRIPTION L8020 Breast Prosthesis COMPOUNDED PRESCRIPTION L8000 Surgical/Mastectomy Bras FLUTICASONE 110 MCG/ACTUATION* Inhale 2 Puffs as instructed *Problem List As Of Date 03/07/2017 Noted Resolved Coronary atherosclerosis [I25.10] INVALID FOR* More... More... Essential hypertension [I10] INVALID FOR* Venous (peripheral) insufficiency [I87.2] INVALID FOR* Anxiety state [F41.1] INVALID FOR* More... FEMALE STRESS INCONTINENCE [N39.3] INVALID FOR* ABNORMAL LIVER FUNCTION STUDY [R94.5] INVALID FOR*01/13/2006 More... Allergic rhinitis [J30.9] INVALID FOR* INT DERANGEMENT KNEE NOS [M23.90] INVALID FOR*07/12/2005 TEAR MED MENISC KNEE-CURRENT [[id number]] INVALID FOR*07/12/2005 LATERAL EPICONDYLITIS [M77.10] INVALID FOR*06/03/2005 MONONEURITIS ARM NEC [G56.80] INVALID FOR*06/03/2005 AFTERCARE NOS [Z51.89] INVALID FOR*07/12/2005 Primary Localized Osteoarthrosis, Lower Leg [M1*INVALID FOR*02/09/2009 PES ANSERINUS TENDINITIS [[id number]] INVALID FOR*01/13/2006 SYMPTOMATIC FEMALE CLIMACTERIC STATE [N95.1] INVALID FOR* PULM EMBOLISM/INFARCT NOS [I26.99] INVALID FOR*02/29/2008 Asthma [J45.909] INVALID FOR* DIABETES MELLITUS TYPE II-UNCOMPL [E11.9] INVALID FOR*09/15/2008 Dermatophytosis of nail [B35.1] INVALID FOR*05/31/2012 Other acquired deformity of toe [M20.5X9] INVALID FOR*11/22/2011 Hallux valgus (acquired) [M20.10] INVALID FOR*05/31/2012 Pain in limb [M79.609] INVALID FOR*05/31/2012 DIABETES TYPE II W NEURO MANIFESTATIONS [E11.49]INVALID FOR*09/15/2008 Unspecified deformity of ankle and foot, acquir*INVALID FOR*11/22/2011 Dysmetabolic Syndrome X [E88.81] INVALID FOR*02/18/2009 PULMONARY EMBOLISM [I26.99] INVALID FOR*10/15/2008 Depressive disorder [F32.9] INVALID FOR* Diabetes mellitus type II, controlled (HCC) [E1*INVALID FOR* More... Lumbago [M54.5] INVALID FOR*03/07/2017 More... Enthesopathy of hip region [M76.899] INVALID FOR*05/31/2012 Unspecified arthropathy, pelvic region and thig*INVALID FOR*05/31/2012 Irritated//Inflamed seborrheic keratosis [L82.0]INVALID FOR*05/31/2012 Other seborrheic keratoses [L82.1] INVALID FOR*05/31/2012 Actinic Damage//Sun-damaged skin [L57.8] INVALID FOR*05/31/2012 Solar lentigines [L81.4] INVALID FOR*05/31/2012 Skin tag [L91.8] INVALID FOR*05/31/2012 Epidermal cyst [L72.0] INVALID FOR*05/31/2012 Milia [L72.0] INVALID FOR*05/31/2012 Sebaceous Hyperplasia [L73.9] INVALID FOR*05/31/2012 Abdominal pain, acute, right upper quadrant [R1*INVALID FOR*11/22/2011 Acute gastritis without mention of hemorrhage [*INVALID FOR*12/30/2014 Abdominal pain, unspecified site [R10.9] INVALID FOR*11/22/2011 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 More... 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 KASIA (acute kidney injury) [N17.9] INVALID FOR*04/07/2013 Priority: F More... Acute blood loss anemia [D62] INVALID FOR*12/26/2013 Priority: H More... Atrial fibrillation [I48.91] INVALID FOR* Hypoxemia [R09.02] INVALID FOR*04/07/2013 Priority: B More... Atelectasis/Pleural Effusion/FVO [J98.11] INVALID FOR*12/26/2013 Priority: B More... More... Hyperlipidemia with target LDL less than 70 [E7*INVALID FOR* More... History of venous thromboembolism [Z86.718] INVALID FOR*03/07/2017 Anticoagulation management encounter [Z51.81, Z*INVALID FOR* Non-proliferative diabetic retinopathy (HCC) [E*INVALID FOR* Vaginal burning [N94.9] INVALID FOR*12/30/2014 Hematuria [R31.9] INVALID FOR*03/07/2017 UTI (lower urinary tract infection) [N39.0] INVALID FOR*12/30/2014 Right flank pain [R10.9] INVALID FOR*12/30/2014 Family history of malignant neoplasm of gastroi*INVALID FOR*02/19/2015 Vitamin D deficiency [E55.9] INVALID FOR* Pain in right hip [M25.551] INVALID FOR* Unstable angina (HCC) [I20.0] INVALID FOR*02/07/2016 Priority: Mild More... HTN (hypertension) [I10] INVALID FOR*03/07/2017 CAD (coronary artery disease) [I25.10] INVALID FOR*03/07/2017 More... VTE (venous thromboembolism) [I82.90] INVALID FOR*07/26/2016 More... 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] INVALID FOR*03/07/2017 Chronic right SI joint pain [M53.3, G89.29] INVALID FOR* Connective 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*INVALID FOR*03/07/2017Prescriptions ordered this encounter Disp Refills Start End ALPRAZOLAM 0.5 MG TABLET 60 t* 5 03/07/2017 Class: Print RX Route: ORAL Sig: Take 1 tablet by mouth twice daily as needed.Medications Discontinued During This Encounter ALPRAZolam (XANAX) 0.5 mg tablet 60 t* 2 07/26/2016 03/07/2017 Class: Print RX Sig: TAKE ONE TABLET BY MOUTH TWICE DAILY NEEDED FOR ANXIETY Disc: Reason for discontinue is not on file.Disposition: Return in about 6 months (around 09/05/2017).Follow-up and Disposition History RecordedEncounter Number: [id number] Status:Closed by KAMAR FRANKLIN MD on 03/07/17 [facility] PROGRESSon 03-07-2017 PROGRESS HNO ID: [id number] thor: Kamar Oswald: (none)Author Type: PhysicianType: Progress NotesFiled: 03/07/2017 10:35 PMNote Text:Medicare Yearly VisitMedical B eligibilty date 2003Date of last exam N/APAST MEDICAL HISTORYDiagnosis Date- Acute gastritis without mention of hemorrhage- Allergic rhinitis, cause unspecified 01/24/2005- Anxiety state, unspecified 01/24/2005- Asthma- Atrial fibrillation (HCC)- Breast cancer (HCC) 1989 Right- Chronic obstructive pulmonary disease (COPD) (HCC)- 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 11/25/2016- Coronary atherosclerosis of unspecified type of vessel, [place] or graft01/24/2005 Stent to LAD, RCA 2003.- Depressive disorder, not elsewhere classified 10/15/2008- Diverticulosis of colon (without mention of hemorrhage)- DVT (deep venous thrombosis) (HCC) 03/04/2009- Dysmetabolic syndrome X 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- Female stress incontinence 01/24/2005- Intestinal adhesions 07/09/2011- Lumbago 06/17/09 low back pain- Malignant neoplasm of breast (female), unspecified site 01/24/20051990 with no recurrence.- Malignant neoplasm of breast (female), unspecified site 2012 Breast cancer left- Microcalcifications of the breast- Nonspecific abnormal results of liver function study 01/24/2005 Fatty liver, nonalcoholic, chronic- Other and unspecified hyperlipidemia 01/24/2005- Other pulmonary embolism and infarction 03/10/2007- S/P epidural steroid injection Dec 2015 back/hip pain- Snoring- Type II or unspecified type diabetes mellitus without mention ofcomplication, not stated as uncontrolled 10/15/2008- Unspecified essential hypertension 01/24/2005- Unspecified venous (peripheral) insufficiency 01/24/2005 EdemaPAST SURGICAL HISTORYProcedure Laterality Date- APPENDECTOMY 2002- BX BREAST PERC VACUUM/ROTN 06/21/12 left- BX/REMV,LYMPH NODE,DEEP AXILL 07-11-12 LEFT- CABG, ARTERY-VEIN, TWO CABG, two grafts- COLONOSCOP W/ OR W/O BRS SPEC 05/30/2004 Colonoscopy, LUZ Marcos- COLONOSCOP W/ OR W/O BRS SPEC 09/15/09- COLONOSCOP W/ OR W/O BRS SPEC 02/19/15 Colonoscopy- CYSTOSCOPY 01/01/13 [facility] cysto for khadijah/urge incont- DANDC, DIAG AND/OR THERAPEUTIC SAB about 54 yrs. ago- EGD W/O BRSH SPECIMEN W/BX 03/28/11- KNEE SCOPE,DIAGNOSTIC 1994 Arthroscopy, knee, left- KNEE SCOPE,DIAGNOSTIC 06-21-05 Arthroscopy, knee, right- LAP CHOLECYSTECT/CHOLANGIOGRAPH Y 07/08/11 significant umbilical adhesions, Normal IOC- LEFT HEART CATH,PERCUTANEOUS 10/12/2015 Cardiac cath, L heart- MASTECTOMY 1990 right radical with lymph node dissection- MASTECTOMY, PARTIAL 07-11-12 LEFT- MASTECTOMY, SIMPLE, COMPLETE 11/26/1990 Right sided, axillary dissection- PAST SURGICAL HISTORY OF 1997 left clavicle reduction- PAST SURGICAL HISTORY OF left bunionectomy, 2nd toe arthrodesis- REMV CATARACT EXTRACAP,INSERT LENS Cataract Removal- both- REPAIR ING HERNIA,5+Y/O,REDUCIBL 1959 and 1967 Hernia repair, inguinal, right- REPAIR ROTATOR CUFF,ACUTE Rotator cuff repair left- REPAIR UMBILICAL MARIO,<5Y/O,REDUC 2004 Hernia repair, umbilical- STENT PLACEMENT 2003 LAD,RCA- VAGINAL HYSTERECTOMY 1968 Hysterectomy, vaginalLovastatin; Statins [Hlxxtzo-Sch-Ihw Reductase Inhibitors]; Codeine;Penicillins; Vicodin [Hydrocodone-Acetaminophen] ; Zetia [Ezetimibe]Medications reviewed: YesFAMILY HISTORYProblem Relation Age of Onset- Colon Cancer Mother- Heart Brother- UNKNOWN [Other] [OTHER] Father NO CONTACT WITH FATHER- Breast Cancer Daughter- Diabetes Maternal Grandmother all of mother's siblings with diabetes- Stroke Maternal Grandmother- Lipids Mother- Ischemic Heart Disease Maternal GrandfatherSOCIAL HISTORY:Social History Marital status: Spouse name: Years of education: Number of children: 3Occupational HistoryOccupation Employer CommentRETIREDSocial History Main Topics Smoking status: Former Smoker Packs/day: 1.00 Years: 25.00 Types: Cigarettes Quit date: 05/29/1987 Smokeless status: Never Used Alcohol use: Yes 6.0 oz/week Comment: 1 glass of wine per month or less Drug use: No Sexual activity: Not CurrentlyShelby denies regular aerobic exercise. She watches her diet for sodium,low fat and low cholesterol some of the time.List of current specialists seen:Dr. Fay, pain management. Dr. Valdes, cardiology. Dr. Mer Rodriguez, radiationoncology. Dr. Knox, [facility].End of Live Planning discussed including patients advanced directivewishes: Chriss am willing to follow Colette's advanced directives.Depression screenShe in the past two weeks admits to having felt down, depressed, hopelessor with little interest or pleasure in doing things.Functional Ability/Safety Screen1. Was the patient's timed Up and Go test unsteady or longer than 30seconds? No2. Does the patient need help with the phone, transportation,shopping,pre paring meals, housework, laundry, medications or managingmoney? No3. Does your home have rugs in the hallway, lack of grab bars in thebathroom, lack of handrails on the stairs or have poor lighting? NoHearing Evaluation: normalPHYSICAL EXAMBP 142/80 Pulse 72 Resp 12 Ht 152.4 cm (5') Wt 81.1 kg (178 lb12.8 oz) BMI 34.92 kg/b6Rmzba and oriented X 3: YESBody mass index is 34.92 kg/(m2).Visual acuity: OD: 20/30 OS: 20/ 70 OU: 20/30.ASSESSMENT/PLAN:81 year old femaleThe following prevention plan was discussed during the office visit andprovided to the patient:Diabetic care. Vaccinations up to date.Kamar Franklin MD Normal [facility] Albumin/Creat Ratioon 2016 Albumin Urine Random 17.4 mg/L Normal 0.0-23.0 [facility] Comment on above: Performed By: #### U ACR ####[facility] [place] [address] [phone] Albumin/Creat Ratio 24 mg/g Normal 0-30 [facility] Comment on above: Result Comment: 30 t o 300 mg/g indicates an increased risk for diabetic nephropathy. Greater than 300 mg/g is consistent with clinical nephropathy. (Am J Kidney Disease 1995, 25:107) Performed By: #### U ACR ####[place] [address] [place], [place] [phone] Creatinine,Urine,Ra n 72.0 mg/dL Normal 20-300 [facility] Comment on above: Performed By: #### U ACR ####[facility] [place], [place] [phone] CBC and Differentialon 03-06 Abs Baso 0.06 k/uL Normal <0.11 [facility] Comment on above: Performed By: #### C BCDIF, CMP, VITD ####[facility] [phone] Abs [place] 0.50 k/uL Normal <0.87 [facility] Comment on above: Performed By: #### C BCDIF, CMP, VITD ####[place] [address] [place] [phone] Abs Neut 4.56 k/uL Normal 1.45-7.50 [facility] Comment on above: Performed By: #### C BCDIF, CMP, VITD ####[place] [address] [place] [phone] Basophils/100 WBC Auto (Bld) 0.8 % Normal [facility] Comment on above: Performed By: #### C BCDIF, CMP, VITD ####[place] [address] [phone] DTYPE Auto Diff Normal [facility] Comment on above: Performed By: #### C BCDIF, CMP, VITD ####[place] [address] [place] [phone] Eosinophils 0.24 10*3/uL Normal <0.46 [facility] Comment on above: Performed By: #### C BCDIF, CMP, VITD ####[place] [address] [place] [phone] Eosinophils/100 leukocytes 3.2 % Normal [facility] Comment on above: Performed By: #### C BCDIF, CMP, VITD ####[place] [address] [place] [phone] Erythrocyte distribution width Auto Ratio (RBC) 12.5 % Normal 11.5-15.0 [facility] Comment on above: Performed By: #### C BCDIF, CMP, VITD ####[place] [address] [place] [phone] Erythrocytes (RBC) 4.74 10*6/uL Normal 3.90-5.20 [facility] Comment on above: Performed By: #### C BCDIF, CMP, VITD ####[place] [address] [place] [phone] Erythrocytes (RBC) 0.0 /100 WBC Normal 0 [facility] Comment on above: Performed By: #### C BCDIF, CMP, VITD ####[place] [address] [place] [phone] Erythrocytes (RBC) 0.00 10*6/uL Normal 0.00 [facility] Comment on above: Performed By: #### C BCDIF, CMP, VITD ####[place] [address] [place] [phone] Hematocrit (HCT) 44.8 % Normal 36.0-46.0 [facility] Comment on above: Performed By: #### C BCDIF, CMP, VITD ####[place] [address] [place] [phone] Hemoglobin mass conc (Bld) 14.5 g/dL Normal 11.5-15.5 [facility] Comment on above: Performed By: #### C BCDIF, CMP, VITD ####[place] [address] [place] [phone] Lymphocytes 2.08 10*3/uL Normal 1.00-4.00 [facility] Comment on above: Performed By: #### C BCDIF, CMP, VITD ####[place] [address] [place] [phone] Lymphocytes/100 leukocytes 28.0 % Normal [facility] Comment on above: Performed By: #### C BCDIF, CMP, VITD ####[place] [address] [place] [phone] MCH 30.6 pG Normal 26.0-34.0 [facility] Comment on above: Performed By: #### C BCDIF, CMP, VITD ####[address] [phone] MCHC mass conc (RBC) 32.4 g/dL Normal 30.5-36.0 [facility] Comment on above: Performed By: #### C BCDIF, CMP, VITD ####[address] [phone] MCV 94.5 fL Normal 80.0-100.0 [facility] Comment on above: Performed By: #### C BCDIF, CMP, VITD ####[address] [phone] Monocytes/100 leukocytes 6.7 % Normal [facility] Comment on above: Performed By: #### C BCDIF, CMP, VITD ####[address] [place] [phone] Neutrophils/100 WBC Auto (Bld) 61.3 % Normal [facility] Comment on above: Performed By: #### C BCDIF, CMP, VITD ####[address] [phone] Platelet mean volume (PMV) 11.1 fL Normal 9.0-12.7 [facility] Comment on above: Performed By: #### C BCDIF, CMP, VITD ####[address] [place] [phone] Platelets 257 10*3/uL Normal 150-400 [facility] Comment on above: Performed By: #### C BCDIF, CMP, VITD ####[place] [address] [phone] WBC (Leukocytes) 7.44 10*3/uL Normal 3.70-11.00 [facility] Comment on above: Performed By: #### C BCDIF, CMP, VITD ####[place] [address] [phone] Comp Metabolic Panelon 03-06 Alanine aminotransferase (ALT) 16 U/L Normal 7-38 [facility] Comment on above: Performed By: #### C BCDIF, CMP, VITD ####[place] [address] [phone] Albumin 4.0 g/dL Normal 3.9-4.9 [facility] Comment on above: Performed By: #### C BCDIF, CMP, VITD ####[place] [address] [phone] Alkaline phosphatase (ALP) 81 U/L Normal 32-117 [facility] Comment on above: Performed By: #### C BCDIF, CMP, VITD ####[place] [address] [phone] Anion gap 15 mmol/L Normal 9-18 [facility] Comment on above: Performed By: #### C BCDIF, CMP, VITD ####[place] [address] [phone] Aspartate aminotransferase (AST) 24 U/L Normal 13-35 [facility] Comment on above: Performed By: #### C BCDIF, CMP, VITD ####[place] [address] [place] [phone] Bilirubin (total) 0.4 mg/dL Normal 0.2-1.3 [facility] Comment on above: Performed By: #### C BCDIF, CMP, VITD ####[place] [address] [place] [phone] Calcium 9.1 mg/dL Normal 8.5-10.2 [facility] Comment on above: Performed By: #### C BCDIF, CMP, VITD ####[facility], [place] [phone] Chloride 98 mmol/L Normal 97-105 [facility] Comment on above: Performed By: #### C BCDIF, CMP, VITD ####[place] [address] [place] [phone] CO2 29 mmol/L Normal 22-30 [facility] Comment on above: Performed By: #### C BCDIF, CMP, VITD ####[place] [address] [place] [phone] Creatinine 0.76 mg/dL Normal 0.58-0.96 [facility] Comment on above: Performed By: #### C BCDIF, CMP, VITD ####[place] [address] [place] [phone] eGFR (non-black) mL/min/{1.73_m2} Normal [facility] Comment on above: Result Comment: eGFR (Estimated GFR) Units of measure: mL/min/1.73 meters squaredeGFR is derived from the reexpressed MDRD Study equation using the following parameters: serum creatinine, age, gender and race. The creatinine assay has been calibrated to be traceable to IDMS.An eGFR <60 mL/min/1.73m2 for >3 months is consistent with chronic kidney disease. Refer to KDOQI guidelines for clinical interpretation.In patients with unstable renal function, e.g. those with acute kidney injury, the eGFR may not accurately reflect actual GFR. Performed By: #### C BCDIF, CMP, VITD ####[place] [address] [place] [phone] Glucose mass conc 145 mg/dL High 74-99 [facility] Comment on above: Result Comment: The [place] Diabetes Association (ADA) provides guidance for cutoff values for fasting glucose and random glucose. The ADA defines fasting as no caloric intake for at least 8 hours. Fasting plasma glucose results between 100 to 125 mg/dL indicate increased risk for diabetes (prediabetes).Fasting plasma glucose results greater than or equal to 126 mg/dL meet the criteria for diagnosis of diabetes. In the absence of unequivocal hyperglycemia, results should be confirmed by repeat testing. In a patient with classic symptoms of hyperglycemia or hyperglycemic crisis, random plasma glucose results greater than or equal to 200 mg/dL meet the criteria for diagnosis of diabetes.Reference: Standards of Medical Care in Diabetes 2016, [place] Diabetes Association. Diabetes Care. 2016.39(Suppl 1). Performed By: #### C BCDIF CMP, VITD ####[facility] [place], [place] [phone] Potassium molar conc 4.0 mmol/L Normal 3.7-5.1 [facility] Comment on above: Performed By: #### C BCDIF, CMP, VITD ####[facility] [place], [place] [phone] Protein 7.2 g/dL Normal 6.3-8.0 [facility] Comment on above: Performed By: #### C BCDIF, CMP, VITD ####[facility], [place] [phone] Sodium 142 mmol/L Normal 136-144 [facility] Comment on above: Performed By: #### C BCDIF, CMP, VITD ####[facility], [place] [phone] Urea nitrogen 15 mg/dL Normal 7-21 [facility] Comment on above: Performed By: #### C BCDIF, CMP, VITD ####[facility], [place] [phone] HOSPon 03-06-2017 HOSP Anticoagulation Visi t (COUMWS) -------COLETTE RICHARDSON ([id number]) 1935 FDate Time Provider Dglxcvobje35/9/17 8:30 AM ANTICOAG [facility] COUMWS During your visit today, we recorded the following information about you:Klever Arellano RN 03/06/2017 8:24 AM SignedPatient had INR completed at [facility] CCPatient's INR is 1.9Patient is currently taking 5 mg dailyPatient's last dose change was 09/01/16Patient has had no medication and no change in diet.Advised patient that they would be contacted regarding medication dose andfollow-up once reviewed by provider. After provider review, please contactpatient with information and schedule follow-up appointment with coumadinclinic. Patient is seeing PCP in office tomorrow.Klever Franklin MD 03/06/2017 4:24 PM SignedContinue Coumadin dose. INR in 2 weeks.Antoinette Gonzalez LPN 03/06/2017 4:24 PM SignedThis note was created using Say2meriter.Juanito Richardson is a 81 year old female.Review of SystemsObjectiveThere were no vitals taken for this visit.Physical ExamAssessment and PlanPatient notified of results and provider's instructions. Patient verbalizesunderstanding.Armin Gonzalez LPNReferring Provider: KAMAR FRANKLIN [[id number]]Allergies As of Date: 03/06/2017 Noted Allergy ReactionLOVASTATIN 01/08/2015 17 - Myalgia Comments: Leg painsSTATINS (RUBGGSF-PRC-NLW REDUCTAS*11/22/2005 14 - Other: See Comments Comments: elevated liver enzymes.CODEINE 01/24/2005 Comments: nauseaPENICILLINS 01/24/2005 Comments: felt throat was swollenVICODIN (HYDROCODONE-ACETAMINOPHE*0 07/15/2011 9 - ItchingZETIA (EZETIMIBE) 06/28/2006 5 - Intolerance Comments: elevated liver enzymesDate Reviewed: 02/15/2017Reviewed by: Emma Ayala WEFT STRAIGHTENER - Fully AssessedReason for Visit: Coumadin/INR [1207]Primary Visit Diagnosis:Chronic anticoagulation [Z79.01]Order(s):INR (POC) [[id number]] Order #: [id number]. #:[id number] BPrescriptions as of 03/06/2017 Sig: TRANSCUTANEOUS ELECTRICAL NER* 1 Device as needed. MECLIZINE 25 MG TABLET Take 1 tablet by mouth three * TENS UNIT AND ELECTRODES COMB* Use as instructed. VENLAFAXINE 75 MG TABLET Take two (2) tablets in the A* IPRATROPIUM 20 MCG-ALBUTEROL * Inhale 1 Puff as instructed f* TRAMADOL 50 MG TABLET Take 1 tablet by mouth every * METOPROLOL TARTRATE 50 MG TAB* Take 2 tablets by mouth twice* TRAZODONE 100 MG TABLET Take 1 tablet by mouth daily * NITROGLYCERIN 0.4 MG SUBLINGU* Dissolve 1 tablet under the t* ONDANSETRON 4 MG DISINTEGRATI* Take 1 tablet by mouth every * HYDROCODONE 5 MG-ACETAMINOPHE* Take 1 tablet by mouth once d* WARFARIN 5 MG TABLET Take 1 tablet by mouth once d* ALPRAZOLAM 0.5 MG TABLET TAKE ONE TABLET BY MOUTH TWIC* ANASTROZOLE 1 MG TABLET Take 1 tablet by mouth once d* LISINOPRIL 20 MG TABLET Take 1 tablet by mouth twice * ATORVASTATIN 40 MG TABLET Take 1 tablet by mouth daily * PANTOPRAZOLE 20 MG TABLET,DEL* Take 1 tablet by mouth once d* AMLODIPINE 5 MG TABLET Take 1 tablet by mouth once d* FUROSEMIDE 20 MG TABLET Take 1 tablet by mouth once d* BLOOD-GLUCOSE METER KIT Glucose Meter of Choice - Kit* BLOOD SUGAR DIAGNOSTIC STRIPS Test blood sugar(s) one times* LANCETS Test blood sugar(s) one times* ERGOCALCIFEROL (VITAMIN D2) 5* Take 1 capsule by mouth once * IPRATROPIUM BROMIDE 0.03 % NA* Use 2 Sprays in the nose ever* ASPIRIN 81 MG CHEWABLE TABLET Take 2 tablets by mouth once * THERAPEUTIC MULTIVITAMIN TABL* Take 1 tablet by mouth daily * COMPOUNDED PRESCRIPTION L8020 Breast Prosthesis COMPOUNDED PRESCRIPTION L8000 Surgical/Mastectomy Bras FLUTICASONE 110 MCG/ACTUATION* Inhale 2 Puffs as instructed *Problem List As Of Date 03/06/2017 Noted Resolved Coronary atherosclerosis [I25.10] INVALID FOR* More... More... Essential hypertension [I10] INVALID FOR* Venous (peripheral) insufficiency [I87.2] INVALID FOR* More... Anxiety state [F41.1] INVALID FOR* More... FEMALE STRESS INCONTINENCE [N39.3] INVALID FOR* ABNORMAL LIVER FUNCTION STUDY [R94.5] INVALID FOR*01/13/2006 More... ALLERGIC RHINITIS NOS [J30.9] INVALID FOR* INT DERANGEMENT KNEE NOS [M23.90] INVALID FOR*07/12/2005 TEAR MED MENISC KNEE-CURRENT [[id number]] INVALID FOR*07/12/2005 LATERAL EPICONDYLITIS [M77.10] INVALID FOR*06/03/2005 MONONEURITIS ARM NEC [G56.80] INVALID FOR*06/03/2005 AFTERCARE NOS [Z51.89] INVALID FOR*07/12/2005 Primary Localized Osteoarthrosis, Lower Leg [M1*INVALID FOR*02/09/2009 PES ANSERINUS TENDINITIS [[id number]] INVALID FOR*01/13/2006 SYMPTOMATIC FEMALE CLIMACTERIC STATE [N95.1] INVALID FOR* PULM EMBOLISM/INFARCT NOS [I26.99] INVALID FOR*02/29/2008 Asthma [J45.909] INVALID FOR* DIABETES MELLITUS TYPE II-UNCOMPL [E11.9] INVALID FOR*09/15/2008 Dermatophytosis of nail [B35.1] INVALID FOR*05/31/2012 Other acquired deformity of toe [M20.5X9] INVALID FOR*11/22/2011 Hallux valgus (acquired) [M20.10] INVALID FOR*05/31/2012 Pain in limb [M79.609] INVALID FOR*05/31/2012 DIABETES TYPE II W NEURO MANIFESTATIONS [E11.49]INVALID FOR*09/15/2008 Unspecified deformity of ankle and foot, acquir*INVALID FOR*11/22/2011 Dysmetabolic Syndrome X [E88.81] INVALID FOR*02/18/2009 PULMONARY EMBOLISM [I26.99] INVALID FOR*10/15/2008 Depressive disorder [F32.9] INVALID FOR* Diabetes mellitus type II, controlled (HCC) [E1*INVALID FOR* More... Lumbago [M54.5] INVALID FOR* More... Enthesopathy of hip region [M76.899] INVALID FOR*05/31/2012 Unspecified arthropathy, pelvic region and thig*INVALID FOR*05/31/2012 Irritated//Inflamed seborrheic keratosis [L82.0]INVALID FOR*05/31/2012 Other seborrheic keratoses [L82.1] INVALID FOR*05/31/2012 Actinic Damage//Sun-damaged skin [L57.8] INVALID FOR*05/31/2012 Solar lentigines [L81.4] INVALID FOR*05/31/2012 Skin tag [L91.8] INVALID FOR*05/31/2012 Epidermal cyst [L72.0] INVALID FOR*05/31/2012 Milia [L72.0] INVALID FOR*05/31/2012 Sebaceous Hyperplasia [L73.9] INVALID FOR*05/31/2012 Abdominal pain, acute, right upper quadrant [R1*INVALID FOR*11/22/2011 Acute gastritis without mention of hemorrhage [*INVALID FOR*12/30/2014 Abdominal pain, unspecified site [R10.9] INVALID FOR*11/22/2011 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 More... 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 KASIA (acute kidney injury) [N17.9] INVALID FOR*04/07/2013 Priority: F More... Acute blood loss anemia [D62] INVALID FOR*12/26/2013 Priority: H More... Atrial fibrillation [I48.91] INVALID FOR* Hypoxemia [R09.02] INVALID FOR*04/07/2013 Priority: B More... Atelectasis/Pleural Effusion/FVO [J98.11] INVALID FOR*12/26/2013 Priority: B More... More... Hyperlipidemia with target LDL less than 70 [E7*INVALID FOR* More... History of venous thromboembolism [Z86.718] INVALID FOR* Anticoagulation management encounter [Z51.81, Z*INVALID FOR* Non-proliferative diabetic retinopathy (HCC) [E*INVALID FOR* Vaginal burning [N94.9] INVALID FOR*12/30/2014 Hematuria [R31.9] INVALID FOR* UTI (lower urinary tract infection) [N39.0] INVALID FOR*12/30/2014 Right flank pain [R10.9] INVALID FOR*12/30/2014 Family history of malignant neoplasm of gastroi*INVALID FOR*02/19/2015 Vitamin D deficiency [E55.9] INVALID FOR* Pain in right hip [M25.551] INVALID FOR* Unstable angina (HCC) [I20.0] INVALID FOR*02/07/2016 Priority: Mild More... HTN (hypertension) [I10] INVALID FOR* More... CAD (coronary artery disease) [I25.10] INVALID FOR* More... VTE (venous thromboembolism) [I82.90] INVALID FOR*07/26/2016 More... Lipid disorder [E78.9] INVALID FOR* More... 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 Performed By: #### L IPB, HBA1C ####[place] [address] [place] [phone] Hemoglobin A1c/Hemoglobin.tota l mass fraction (Bld) 6.4 % High 4.3-5.6 [facility] Comment on above: Result Comment: [place] Diabetes Association guidelines indicate that patients with HgbA1c in the range 5.7-6.4% are at increased risk for development of diabetes, and intervention by lifestyle modification may be beneficial. HgbA1c greater or equal to 6.5% is considered diagnostic of diabetes. Performed By: #### L IPB, HBA1C ####[place] [address] [place] [phone] Lipid Panel, Basic 017 Cholesterol 171 mg/dL Normal 100-199 [facility] Comment on above: Performed By: #### L IPB, HBA1C ####[place] [address] [place] [phone] Fasting Time 12 hrs Normal [facility] Comment on above: Performed By: #### L IPB, HBA1C ####[place] [address] [place] [phone] HDL Cholesterol 37 mg/dL Low >55 [facility] Comment on above: Performed By: #### L IPB, HBA1C ####[place] [address] [place] [phone] LDL Cholesterol 100 mg/dL Normal 60-129 [facility] Comment on above: Performed By: #### L IPB, HBA1C ####[place] [address] [place] [phone] LDL:HDL Ratio 2.70 Normal 0.50-3.55 [facility] Comment on above: Performed By: #### L IPB, HBA1C ####[place] [address] [place] [phone] Non HDL Cholesterol 134 mg/dL Normal 90-159 [facility] Comment on above: Performed By: #### L IPB, HBA1C ####[facility] [address], [place] [phone] TC:HDL Ratio 4.62 Normal 1.00-5.00 [facility] Comment on above: Performed By: #### L IPB, HBA1C ####[facility] [address], [place] [phone] Triglyceride 172 mg/dL High 30-149 [facility] Comment on above: Performed By: #### L IPB, HBA1C ####[facility] [address], [place] [phone] VLDL Cholesterol 34 mg/dL Normal 6-40 [facility] Comment on above: Performed By: #### L IPB, HBA1C ####[facility] [address] [place], [place] [phone] PROGRESSon 03-06-2017 PROGRESS HNO ID: [id number] thor: Antoinette Gonzalez LPNService: (none)Author Type: (none)Type: Progress NotesFiled: 03/06/2017 4:24 PMNote Text:This note was created using Peter Blueberry.Juanito Richardson is a 81 year old female.Review of SystemsObjectiveThere were no vitals taken for this visit.Physical ExamAssessment and PlanPatient notified of results and provider's instructions. Patientverbalizes understanding.Antoinette Gonzalez LPN Normal [facility] PROGRESS HNO ID: [id number] Author: Kamar Franklin Service: (none) Author Type: Physician Type: Progress Notes Filed: 03/06/2017 4:24 PM Note Text: Continue Coumadin dose. INR in 2 weeks. Normal [facility] PROGRESS HNO ID: [id number] thor: Klever Arellano RNService: (none)Author Type: (none)Type: Progress NotesFiled: 03/06/2017 8:24 AMNote Text:Patient had IN[facility] completed at [facility] CCPatient's INR is 1.9Patient is currently taking 5 mg dailyPatient's last dose change was 09/01/16Patient has had no medication and no change in diet.Advised patient that they would be contacted regarding medication dose andfollow-up once reviewed by provider. After provider review, please contactpatient with information and schedule follow-up appointment with coumadinclinic. Patient is seeing PCP in office tomorrow.Klever Arellano RN Normal [facility] Vitamin D 25 Hydroxyon 03-06 Vitamin D 25 Hydroxy 48.6 ng/mL Normal 31.0-80.0 [facility] Comment on above: Result Comment: Clas sification of 25 [place] Vitamin D status:Insufficiency/Moderate Deficiency: < or = 30 ng/mLSufficiency/Optimal Levels: 31 to 80 ng/mLToxicity: > 100 ng/mLTest performed by chemiluminescent immunoassay. Performed By: #### C BCDIF, CMP, VITD ####[facility] [address] [place], [place] [phone] [facility] 02-15-2017 [facility] Nurse Visit (FAMPWS) -------COLETTE RICHARDSON ([id number]) 1935 [facility] Time Provider Department02/15/17 10:30 AM [place] NURSE FAMPWS During your visit today, we recorded the following information about you:Emma Janynoah CHIQUI 02/15/2017 2:51 PM Drrtib52 year old female here for INACTIVATED INFLUENZA VACCINE.5058-9500 SeasonPatient is identified by name and date of : Yes [] CONTRAINDICATIONS color enhancedsectionAge less than 6 months? NoAllergy to eggs, chicken, chicken feathers, or chicken dander? NoAllergy to thimerosal (a preservative) or formaldehyde? NoHistory of severe reaction to any vaccine component or a previous dose ofinfluenza vaccination? NoHistory of Guillain-Dublin Syndrome within 6 weeks after a previous influenzavaccine? NoCurrent moderate or severe illness? NoCurrent temperature greater or equal to 100.4F? NoHistory of Bone Marrow Transplant in past 6 months or solid organ transplant inthe past 3 months ? No [] VERIFICATION colorenhanced sectionWas the answer ANDquot;YesANDquot; for any of the above contraindications? Nocontraindications present. Acceptable to proceed with vaccine.Patient/guardian agrees the above answers are true to the best of theirknowledge? YesFlu vaccine information sheet given? YesSee immunization activity in [facility] for details of immunizations adminsteredtoday.Patient age: [age] year old For The 9568-6598 Flu Season 6-35 months old: Fluzone 0.25 ml - IM (Preservative Free)3 years of age: Fluzone 0.5 ml - IM (Preservative Free)3 years and older: Fluzone 0.5 ml- IM-(with Preservatives)65+ years old: Fluzone High-Dose 0.5 ml - IM (Preservative Free)REMEMBER: If patient is less than 9 years of age and this is the first vaccineof Influenza to be received in any flu season, they should receive a seconddose in one months time.Referring Provider: KAMAR FRANKLIN [[id number]]Allergies As of Date: 02/15/2017 Noted Allergy ReactionLOVASTATIN 01/08/2015 17 - Myalgia Comments: Leg painsSTATINS (KSTHXHP-IBY-RTZ REDUCTAS*11/22/2005 14 - Other: See Comments Comments: elevated liver enzymes.CODEINE 01/24/2005 Comments: nauseaPENICILLINS 01/24/2005 Comments: felt throat was swollenVICODIN (HYDROCODONE-ACETAMINOPHE*0 07/15/2011 9 - ItchingZETIA (EZETIMIBE) 06/28/2006 5 - Intolerance Comments: elevated liver enzymesDate Reviewed: 02/15/2017Reviewed by: Emma Ayala LPN - Fully AssessedReason for Visit: Imm/Inj [58] Cmt: Flu VaccinePrimary Visit Diagnosis:Need for vaccination [Z23]Order(s):INFLUENZA SEASONAL HIGH DOSE AGE 65+ [[id number]] Order #: [id number] as of 02/15/2017 Sig: TRANSCUTANEOUS ELECTRICAL NER* 1 Device as needed. MECLIZINE 25 MG TABLET Take 1 tablet by mouth three * TENS UNIT AND ELECTRODES COMB* Use as instructed. VENLAFAXINE 75 MG TABLET Take two (2) tablets in the A* IPRATROPIUM 20 MCG-ALBUTEROL * Inhale 1 Puff as instructed f* TRAMADOL 50 MG TABLET Take 1 tablet by mouth every * METOPROLOL TARTRATE 50 MG TAB* Take 2 tablets by mouth twice* TRAZODONE 100 MG TABLET Take 1 tablet by mouth daily * NITROGLYCERIN 0.4 MG SUBLINGU* Dissolve 1 tablet under the t* ONDANSETRON 4 MG DISINTEGRATI* Take 1 tablet by mouth every * HYDROCODONE 5 MG-ACETAMINOPHE* Take 1 tablet by mouth once d* WARFARIN 5 MG TABLET Take 1 tablet by mouth once d* ALPRAZOLAM 0.5 MG TABLET TAKE ONE TABLET BY MOUTH TWIC* ANASTROZOLE 1 MG TABLET Take 1 tablet by mouth once d* LISINOPRIL 20 MG TABLET Take 1 tablet by mouth twice * ATORVASTATIN 40 MG TABLET Take 1 tablet by mouth daily * PANTOPRAZOLE 20 MG TABLET,DEL* Take 1 tablet by mouth once d* AMLODIPINE 5 MG TABLET Take 1 tablet by mouth once d* FUROSEMIDE 20 MG TABLET Take 1 tablet by mouth once d* BLOOD-GLUCOSE METER KIT Glucose Meter of Choice - Kit* BLOOD SUGAR DIAGNOSTIC STRIPS Test blood sugar(s) one times* LANCETS Test blood sugar(s) one times* ERGOCALCIFEROL (VITAMIN D2) 5* Take 1 capsule by mouth once * IPRATROPIUM BROMIDE 0.03 % NA* Use 2 Sprays in the nose ever* ASPIRIN 81 MG CHEWABLE TABLET Take 2 tablets by mouth once * THERAPEUTIC MULTIVITAMIN TABL* Take 1 tablet by mouth daily * COMPOUNDED PRESCRIPTION L8020 Breast Prosthesis COMPOUNDED PRESCRIPTION L8000 Surgical/Mastectomy Bras FLUTICASONE 110 MCG/ACTUATION* Inhale 2 Puffs as instructed *Problem List As Of Date 02/15/2017 Noted Resolved Coronary atherosclerosis [I25.10] INVALID FOR* More... More... Essential hypertension [I10] INVALID FOR* Venous (peripheral) insufficiency [I87.2] INVALID FOR* More... Anxiety state [F41.1] INVALID FOR* More... FEMALE STRESS INCONTINENCE [N39.3] INVALID FOR* ABNORMAL LIVER FUNCTION STUDY [R94.5] INVALID FOR*01/13/2006 More... ALLERGIC RHINITIS NOS [J30.9] INVALID FOR* INT DERANGEMENT KNEE NOS [M23.90] INVALID FOR*07/12/2005 TEAR MED MENISC KNEE-CURRENT [[id number]] INVALID FOR*07/12/2005 LATERAL EPICONDYLITIS [M77.10] INVALID FOR*06/03/2005 MONONEURITIS ARM NEC [G56.80] INVALID FOR*06/03/2005 AFTERCARE NOS [Z51.89] INVALID FOR*07/12/2005 Primary Localized Osteoarthrosis, Lower Leg [M1*INVALID FOR*02/09/2009 PES ANSERINUS TENDINITIS [[id number]] INVALID FOR*01/13/2006 SYMPTOMATIC FEMALE CLIMACTERIC STATE [N95.1] INVALID FOR* PULM EMBOLISM/INFARCT NOS [I26.99] INVALID FOR*02/29/2008 Asthma [J45.909] INVALID FOR* DIABETES MELLITUS TYPE II-UNCOMPL [E11.9] INVALID FOR*09/15/2008 Dermatophytosis of nail [B35.1] INVALID FOR*05/31/2012 Other acquired deformity of toe [M20.5X9] INVALID FOR*11/22/2011 Hallux valgus (acquired) [M20.10] INVALID FOR*05/31/2012 Pain in limb [M79.609] INVALID FOR*05/31/2012 DIABETES TYPE II W NEURO MANIFESTATIONS [E11.49]INVALID FOR*09/15/2008 Unspecified deformity of ankle and foot, acquir*INVALID FOR*11/22/2011 Dysmetabolic Syndrome X [E88.81] INVALID FOR*02/18/2009 PULMONARY EMBOLISM [I26.99] INVALID FOR*10/15/2008 Depressive disorder [F32.9] INVALID FOR* Diabetes mellitus type II, controlled (HCC) [E1*INVALID FOR* More... Lumbago [M54.5] INVALID FOR* More... Enthesopathy of hip region [M76.899] INVALID FOR*05/31/2012 Unspecified arthropathy, pelvic region and thig*INVALID FOR*05/31/2012 Irritated//Inflamed seborrheic keratosis [L82.0]INVALID FOR*05/31/2012 Other seborrheic keratoses [L82.1] INVALID FOR*05/31/2012 Actinic Damage//Sun-damaged skin [L57.8] INVALID FOR*05/31/2012 Solar lentigines [L81.4] INVALID FOR*05/31/2012 Skin tag [L91.8] INVALID FOR*05/31/2012 Epidermal cyst [L72.0] INVALID FOR*05/31/2012 Milia [L72.0] INVALID FOR*05/31/2012 Sebaceous Hyperplasia [L73.9] INVALID FOR*05/31/2012 Abdominal pain, acute, right upper quadrant [R1*INVALID FOR*11/22/2011 Acute gastritis without mention of hemorrhage [*INVALID FOR*12/30/2014 Abdominal pain, unspecified site [R10.9] INVALID FOR*11/22/2011 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 More... 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 KASIA (acute kidney injury) [N17.9] INVALID FOR*04/07/2013 Priority: F More... Acute blood loss anemia [D62] INVALID FOR*12/26/2013 Priority: H More... Atrial fibrillation [I48.91] INVALID FOR* Hypoxemia [R09.02] INVALID FOR*04/07/2013 Priority: B More... Atelectasis/Pleural Effusion/FVO [J98.11] INVALID FOR*12/26/2013 Priority: B More... More... Hyperlipidemia with target LDL less than 70 [E7*INVALID FOR* More... History of venous thromboembolism [Z86.718] INVALID FOR* Anticoagulation management encounter [Z51.81, Z*INVALID FOR* Non-proliferative diabetic retinopathy (HCC) [E*INVALID FOR* Vaginal burning [N94.9] INVALID FOR*12/30/2014 Hematuria [R31.9] INVALID FOR* UTI (lower urinary tract infection) [N39.0] INVALID FOR*12/30/2014 Right flank pain [R10.9] INVALID FOR*12/30/2014 Family history of malignant neoplasm of gastroi*INVALID FOR*02/19/2015 Vitamin D deficiency [E55.9] INVALID FOR* Pain in right hip [M25.551] INVALID FOR* Unstable angina (HCC) [I20.0] INVALID FOR*02/07/2016 Priority: Mild More... HTN (hypertension) [I10] INVALID FOR* More... CAD (coronary artery disease) [I25.10] INVALID FOR* More... VTE (venous thromboembolism) [I82.90] INVALID FOR*07/26/2016 More... Lipid disorder [E78.9] INVALID FOR* More... 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 SeasonPatient is identified by name and date of : Yes [] CONTRAINDICATIONS colorenhanced sectionAge less than 6 months? NoAllergy to eggs, chicken, chicken feathers, or chicken dander? NoAllergy to thimerosal (a preservative) or formaldehyde? NoHistory of severe reaction to any vaccine component or a previous dose ofinfluenza vaccination? NoHistory of Guillain-Dublin Syndrome within 6 weeks after a previousinfluenza vaccine? NoCurrent moderate or severe illness? NoCurrent temperature greater or equal to 100.4F? NoHistory of Bone Marrow Transplant in past 6 months or solid organtransplant in the past 3 months ? No [] VERIFICATIONcolor enhanced sectionWas the answer Yes for any of the above contraindications? Nocontraindications present. Acceptable to proceed with vaccine.Patient/guardian agrees the above answers are true to the best of theirknowledge? YesFlu vaccine information sheet given? YesSee immunization activity in [facility] for details of immunizationsadminstered today.Patient age: [age] year old For The Flu Season 6-35 months old: Fluzone 0.25 ml - IM (Preservative Free)3 years of age: Fluzone 0.5 ml - IM (Preservative Free)3 years and older: Fluzone 0.5 ml- IM-(with Preservatives)65+ years old: Fluzone High-Dose 0.5 ml - IM (Preservative Free)REMEMBER: If patient is less than 9 years of age and this is the firstvaccine of Influenza to be received in any flu season, they should receivea second dose in one months time. Normal [facility] CNOVon 01-04-2017 CNOV Office Visit (MO) -------COLETTE RICHARDSON ([id number]) 1935 FDate Time Provider Department01/04/17 1:15 PM FREDO VALDES During your visit today, we recorded the following information about you: Pulse Blood pressure Weight Height 64/minute 138/78 81.8 kg 1.549 Fausto Valdes MD 01/04/2017 1:52 PM SignedPERTINENT CARDIAC HISTORYASHD - stent to LAD, RCA 2003.04/02/2013:CABG x 2 (APARICIO-LAD, SVG-om)Afib- post-opHTNHLPE/DVT- MCFP anticoagulation with WarfarinCLINICAL IMPRESSION/PLAN:Colette Richardson is doing well. Her coronary disease is stable. She has beenadvised to continue her optimal medical therapy, including moderate doseLipitor. This is the maximum dose that she can tolerate.Blood pressure is under good control.I've encouraged her to remain active and takes time for herself. INR will bedone today. She was directed to the [facility] Coumadin clinic.I will see her in 8 months or as needed. If there is increased chest pain orshortness of breath, she has been advised to contact me.Written and verbal health teaching given to patient, patient verbalizesunderstanding and agrees with treatment plan.This note was generated using EZ4U voice recognition system, and there may besome incorrect words, spellings, and punctuation that were not noted inchecking the note before saving.DIAGNOSIS FOR VISIT:ASHDHypertensionHISTO RY OF PRESENT ILLNESSColette Richardson returns for follow-up of her coronary disease andhypertension. She reports stable exercise tolerance. She has been caring forher who is in the final stages of his illness. She's had no recentchest discomfort and has used no nitroglycerin. She has had no orthopnea. She'shad minimal edema. She denies syncope, palpitations, TIAs, amaurosis andclaudication.ALLERGIES:A LLERGIESAllergen Reactions- Lovastatin Myalgia Leg pains- Statins [Statins-Hm* Other: See Comments elevated liver enzymes.- Codeine nausea- Penicillins felt throat was swollen- Vicodin [Hydrocodon* Itching- Zetia [Ezetimibe] Intolerance elevated liver enzymesCURRENT OUTPATIENT MEDICATIONS:meclizine (ANTIVERT) 25 mg tab Take 1 tablet by mouth three times daily asneeded (dizziness).TENS unit and electrodes cmpk Use as instructed.venlafaxine (EFFEXOR) 75 mg tablet Take two (2) tablets in the AM and one (1)tablet in the PM.ipratropium-albuterol (COMBIVENT RESPIMAT) 20-100 mcg/actuation mist Inhale 1Puff as instructed four times daily.traMADol (ULTRAM) 50 mg tablet Take 1 tablet by mouth every 6 hours as needed.metoprolol tartrate, short acting, (LOPRESSOR) 50 mg tablet Take 2 tablets bymouth twice daily.traZODone (DESYREL) 100 mg tablet Take 1 tablet by mouth daily at bedtime.nitroglycerin sublingual (NITROQUICK) 0.4 mg SL tablet Dissolve 1 tablet underthe tongue as needed. FOR CHEST PAIN. IF NO RELIEF CALL 911ondansetron orally disintegrating (ZOFRAN ODT) 4 mg disintegrating tablet Take1 tablet by mouth every 8 hours as needed for Nausea/Vomiting.HYDROcodone -acetaminophen (NORCO) 5-325 mg per tablet Take 1 tablet by mouthonce daily. For back,hip pain.warfarin (COUMADIN) 5 mg tablet Take 1 tablet by mouth once daily.ALPRAZolam (XANAX) 0.5 mg tablet TAKE ONE TABLET BY MOUTH TWICE DAILY NEEDEDFOR ANXIETYanastrozole (ARIMIDEX) 1 mg tablet Take 1 tablet by mouth once daily.lisinopril (PRINIVIL) 20 mg tablet Take 1 tablet by mouth twice daily.atorvastatin (LIPITOR) 40 mg tablet Take 1 tablet by mouth daily at bedtime.pantoprazole DR (PROTONIX) 20 mg tablet Take 1 tablet by mouth once daily.amLODIPine (NORVASC) 5 mg tablet Take 1 tablet by mouth once daily.furosemide (LASIX) 20 mg tablet Take 1 tablet by mouth once daily.Blood-Glucose Meter monitoring kit Glucose Meter of Choice - Kit - Dx: E11.40.blood sugar diagnostic (BLOOD GLUCOSE TEST) test strip Test blood sugar(s) onetimes daily. Dx: Type 2 DM - Controlled E11.40 Insulin: NoLancets lancets Test blood sugar(s) one times daily. Dx: Type 2 DM -Controlled E11.40 Insulin: Noergocalciferol, vitamin D2, (DRISDOL) 50,000 unit capsule Take 1 capsule bymouth once each week.Ipratropium Newberg (ATROVENT) 0.03 % nasal spray Use 2 Sprays in the noseevery 12 hours.aspirin 81 mg chewable tablet Take 2 tablets by mouth once daily.therapeutic multivitamin tablet Take 1 tablet by mouth daily with breakfast.COMPOUNDED PRESCRIPTION L8020 Breast ProsthesisCOMPOUNDED PRESCRIPTION L8000 Surgical/Mastectomy Brasfluticasone (FLOVENT HFA) 110 mcg/Actuation INHALATION inhaler Inhale 2 Puffsas instructed twice daily. Use with spacer. Rinse mouth out after use.PHYSICAL EXAMINATION:VITAL SIGNS: BP 138/78 Pulse 64 Ht 5' 1ANDquot; (1.55m) Wt 180 lb 4.8 oz(81.8kg) BMI 34.09 kg/(m2).Chest: Clear to percussion and auscultation. Trachea is midline. Air entry isequal. Cardiac: Regular rhythm. S1 and S2 are normal. PMI is nondisplaced.There is a soft systolic ejection murmur. Carotids are brisk without bruits.JVP is less than 10 cm. Abdomen: Soft and nontender. There are no pulsatilemasses or bruits. No liver enlargement. Bowel sounds are active.Extremities: Trace edema. Pulses are intact and symmetrical.Recent labs were reviewed. Renal function is stable. Labs are due to berepeated in February for primary care. INR is overdue.Electronically Signed:Matti Tyler 2016 1:31 [facility]: Kamar Franklin, MDReferring Provider: FREDO VALDES [[id number]]Allergies As of Date: 01/04/2017 Noted Allergy ReactionLOVASTATIN 01/08/2015 17 - Myalgia Comments: Leg painsSTATINS (MYZTUFS-ZMB-PXW REDUCTAS*11/22/2005 14 - Other: See Comments Comments: elevated liver enzymes.CODEINE 01/24/2005 Comments: nauseaPENICILLINS 01/24/2005 Comments: felt throat was swollenVICODIN (HYDROCODONE-ACETAMINOPHE*0 07/15/2011 9 - ItchingZETIA (EZETIMIBE) 06/28/2006 5 - Intolerance Comments: elevated liver enzymesDate Reviewed: 01/04/2017Reviewed by: Angeles Renner Ma - Fully AssessedReason for Visit: Follow Up [171]Primary Visit Diagnosis:ASHD (arteriosclerotic heart disease) [I25.10] Other Visit Diagnosis:Essential hypertension [I10]Order(s):INR FINGERSTICK B/O [[id number]] Order #: [id number] STANDINGPrescriptions as of 01/04/2017 Sig: MECLIZINE 25 MG TABLET Take 1 tablet by mouth three * TENS UNIT AND ELECTRODES COMB* Use as instructed. VENLAFAXINE 75 MG TABLET Take two (2) tablets in the A* IPRATROPIUM 20 MCG-ALBUTEROL * Inhale 1 Puff as instructed f* TRAMADOL 50 MG TABLET Take 1 tablet by mouth every * METOPROLOL TARTRATE 50 MG TAB* Take 2 tablets by mouth twice* TRAZODONE 100 MG TABLET Take 1 tablet by mouth daily * NITROGLYCERIN 0.4 MG SUBLINGU* Dissolve 1 tablet under the t* ONDANSETRON 4 MG DISINTEGRATI* Take 1 tablet by mouth every * HYDROCODONE 5 MG-ACETAMINOPHE* Take 1 tablet by mouth once d* WARFARIN 5 MG TABLET Take 1 tablet by mouth once d* ALPRAZOLAM 0.5 MG TABLET TAKE ONE TABLET BY MOUTH TWIC* ANASTROZOLE 1 MG TABLET Take 1 tablet by mouth once d* LISINOPRIL 20 MG TABLET Take 1 tablet by mouth twice * ATORVASTATIN 40 MG TABLET Take 1 tablet by mouth daily * PANTOPRAZOLE 20 MG TABLET,DEL* Take 1 tablet by mouth once d* AMLODIPINE 5 MG TABLET Take 1 tablet by mouth once d* FUROSEMIDE 20 MG TABLET Take 1 tablet by mouth once d* BLOOD-GLUCOSE METER KIT Glucose Meter of Choice - Kit* BLOOD SUGAR DIAGNOSTIC STRIPS Test blood sugar(s) one times* LANCETS Test blood sugar(s) one times* ERGOCALCIFEROL (VITAMIN D2) 5* Take 1 capsule by mouth once * IPRATROPIUM BROMIDE 0.03 % NA* Use 2 Sprays in the nose ever* ASPIRIN 81 MG CHEWABLE TABLET Take 2 tablets by mouth once * THERAPEUTIC MULTIVITAMIN TABL* Take 1 tablet by mouth daily * COMPOUNDED PRESCRIPTION L8020 Breast Prosthesis COMPOUNDED PRESCRIPTION L8000 Surgical/Mastectomy Bras FLUTICASONE 110 MCG/ACTUATION* Inhale 2 Puffs as instructed *Problem List As Of Date 01/04/2017 Noted Resolved Coronary atherosclerosis [I25.10] INVALID FOR* More... More... Essential hypertension [I10] INVALID FOR* Venous (peripheral) insufficiency [I87.2] INVALID FOR* More... Anxiety state [F41.1] INVALID FOR* More... FEMALE STRESS INCONTINENCE [N39.3] INVALID FOR* ABNORMAL LIVER FUNCTION STUDY [R94.5] INVALID FOR*01/13/2006 More... ALLERGIC RHINITIS NOS [J30.9] INVALID FOR* INT DERANGEMENT KNEE NOS [M23.90] INVALID FOR*07/12/2005 TEAR MED MENISC KNEE-CURRENT [[id number]] INVALID FOR*07/12/2005 LATERAL EPICONDYLITIS [M77.10] INVALID FOR*06/03/2005 MONONEURITIS ARM NEC [G56.80] INVALID FOR*06/03/2005 AFTERCARE NOS [Z51.89] INVALID FOR*07/12/2005 Primary Localized Osteoarthrosis, Lower Leg [M1*INVALID FOR*02/09/2009 PES ANSERINUS TENDINITIS [[id number]] INVALID FOR*01/13/2006 SYMPTOMATIC FEMALE CLIMACTERIC STATE [N95.1] INVALID FOR* PULM EMBOLISM/INFARCT NOS [I26.99] INVALID FOR*02/29/2008 Asthma [J45.909] INVALID FOR* DIABETES MELLITUS TYPE II-UNCOMPL [E11.9] INVALID FOR*09/15/2008 Dermatophytosis of nail [B35.1] INVALID FOR*05/31/2012 Other acquired deformity of toe [M20.5X9] INVALID FOR*11/22/2011 Hallux valgus (acquired) [M20.10] INVALID FOR*05/31/2012 Pain in limb [M79.609] INVALID FOR*05/31/2012 DIABETES TYPE II W NEURO MANIFESTATIONS [E11.49]INVALID FOR*09/15/2008 Unspecified deformity of ankle and foot, acquir*INVALID FOR*11/22/2011 Dysmetabolic Syndrome X [E88.81] INVALID FOR*02/18/2009 PULMONARY EMBOLISM [I26.99] INVALID FOR*10/15/2008 Depressive disorder [F32.9] INVALID FOR* Diabetes mellitus type II, controlled (HCC) [E1*INVALID FOR* More... Lumbago [M54.5] INVALID FOR* More... Enthesopathy of hip region [M76.899] INVALID FOR*05/31/2012 Unspecified arthropathy, pelvic region and thig*INVALID FOR*05/31/2012 Irritated//Inflamed seborrheic keratosis [L82.0]INVALID FOR*05/31/2012 Other seborrheic keratoses [L82.1] INVALID FOR*05/31/2012 Actinic Damage//Sun-damaged skin [L57.8] INVALID FOR*05/31/2012 Solar lentigines [L81.4] INVALID FOR*05/31/2012 Skin tag [L91.8] INVALID FOR*05/31/2012 Epidermal cyst [L72.0] INVALID FOR*05/31/2012 Milia [L72.0] INVALID FOR*05/31/2012 Sebaceous Hyperplasia [L73.9] INVALID FOR*05/31/2012 Abdominal pain, acute, right upper quadrant [R1*INVALID FOR*11/22/2011 Acute gastritis without mention of hemorrhage [*INVALID FOR*12/30/2014 Abdominal pain, unspecified site [R10.9] INVALID FOR*11/22/2011 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 More... 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 KASIA (acute kidney injury) [N17.9] INVALID FOR*04/07/2013 Priority: F More... Acute blood loss anemia [D62] INVALID FOR*12/26/2013 Priority: H More... Atrial fibrillation [I48.91] INVALID FOR* Hypoxemia [R09.02] INVALID FOR*04/07/2013 Priority: B More... Atelectasis/Pleural Effusion/FVO [J98.11] INVALID FOR*12/26/2013 Priority: B More... More... Hyperlipidemia with target LDL less than 70 [E7*INVALID FOR* More... History of venous thromboembolism [Z86.718] INVALID FOR* Anticoagulation management encounter [Z51.81, Z*INVALID FOR* Non-proliferative diabetic retinopathy (HCC) [E*INVALID FOR* Vaginal burning [N94.9] INVALID FOR*12/30/2014 Hematuria [R31.9] INVALID FOR* UTI (lower urinary tract infection) [N39.0] INVALID FOR*12/30/2014 Right flank pain [R10.9] INVALID FOR*12/30/2014 Family history of malignant neoplasm of gastroi*INVALID FOR*02/19/2015 Vitamin D deficiency [E55.9] INVALID FOR* Pain in right hip [M25.551] INVALID FOR* Unstable angina (HCC) [I20.0] INVALID FOR*02/07/2016 Priority: Mild More... HTN (hypertension) [I10] INVALID FOR* More... CAD (coronary artery disease) [I25.10] INVALID FOR* More... VTE (venous thromboembolism) [I82.90] INVALID FOR*07/26/2016 More... Lipid disorder [E78.9] INVALID FOR* More... 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*INVALID FOR* Status:Closed by FREDO VALDES MD on 01/04/17 [facility] CNOV Office Visit (RADTWS) -------COLETTE RICHARDSON ([id number]) 1935 FDate Time Provider Department01/04/17 11:00 AM POWER RODRIGUEZ During your visit today, we recorded the following information about you: Temperature Pulse Respiration Blood pressure 97.5 degrees 69/minute 20/minute 154/75 Weight 82.1 kgAna Reyes RN, RN 01/04/2017 11:05 AM SignedRadiation Therapy - Nursing Note (Follow-up)PATIENT NAME: Colette Pineda 2014[facility] FACILITY/LOCATION: [facility] [place] for visit: Follow up.Subjective DataNo c/oAdditional DataDo you want to see a Well Cleaner? NoNursing AssessmentFatigue: increased fatigue over baseline but not altering normal activitiesAppetite: goodWeight Gain/Loss: NoLast 6 Encounter Wt Readings: Date: Wt: 01/04/2017 82.1 kg (181 lb) 11/25/2016 80.3 kg (177 lb) 11/15/2016 81.6 kg (180 lb) 11/05/2016 81.6 kg (180 lb) 09/07/2016 84.4 kg (186 lb) 09/07/2016 84.4 kg (186 lb)Bowel Function: normal bowel movementsBone Pain: noneFocused AssessmentBREAST: Lymphedema Assessment: Is the patient noting any swelling? No.Was KP approved? Did not have tabletSIGNED by: Zachariah Kim MD 01/04/2017 11:20 AM SignedRadiation Oncology - Follow Up NotePATIENT NAME: Colette Pineda : 1. Stage IA, T1cN0, ER positive, SD positive and Her2/krish negative,invasive ductal carcinoma of the left breast s/p lumpectomy and sentinel nodebiopsy, s/p radiation treatment finished on 10/09/12. She is on Arimidex. 2. Stage IIb right breast cancer in 1990. It was a T2 N1, ER positive, lymphnode positive breast cancer. The patient had a right modified radicalmastectomy followed by reconstruction. She had adjuvant chemotherapy with theFAC regimen x6 cycles followed by tamoxifen for 9 years.INTERVAL HISTORY: She is doing well without any specific new complaints. Shedenies any lumps in the breasts. Left mammogram on 06/24/16 showed benignfindings.ALLERGIES:AL LERGIESAllergen Reactions- Lovastatin Myalgia Leg pains- Statins [Statins-Hm* Other: See Comments elevated liver enzymes.- Codeine nausea- Penicillins felt throat was swollen- Vicodin [Hydrocodon* Itching- Zetia [Ezetimibe] Intolerance elevated liver enzymesMEDICATIONS:meclizin e (ANTIVERT) 25 mg tab Take 1 tablet by mouth three times daily asneeded (dizziness).venlafaxine (EFFEXOR) 75 mg tablet Take two (2) tablets in the AM and one (1)tablet in the PM.ipratropium-albuterol (COMBIVENT RESPIMAT) 20-100 mcg/actuation mist Inhale 1Puff as instructed four times daily.traMADol (ULTRAM) 50 mg tablet Take 1 tablet by mouth every 6 hours as needed.metoprolol tartrate, short acting, (LOPRESSOR) 50 mg tablet Take 2 tablets bymouth twice daily.traZODone (DESYREL) 100 mg tablet Take 1 tablet by mouth daily at bedtime.nitroglycerin sublingual (NITROQUICK) 0.4 mg SL tablet Dissolve 1 tablet underthe tongue as needed. FOR CHEST PAIN. IF NO RELIEF CALL 911ondansetron orally disintegrating (ZOFRAN ODT) 4 mg disintegrating tablet Take1 tablet by mouth every 8 hours as needed for Nausea/Vomiting.HYDROcodone -acetaminophen (NORCO) 5-325 mg per tablet Take 1 tablet by mouthonce daily. For back,hip pain.warfarin (COUMADIN) 5 mg tablet Take 1 tablet by mouth once daily.ALPRAZolam (XANAX) 0.5 mg tablet TAKE ONE TABLET BY MOUTH TWICE DAILY NEEDEDFOR ANXIETYanastrozole (ARIMIDEX) 1 mg tablet Take 1 tablet by mouth once daily.lisinopril (PRINIVIL) 20 mg tablet Take 1 tablet by mouth twice daily.atorvastatin (LIPITOR) 40 mg tablet Take 1 tablet by mouth daily at bedtime.pantoprazole DR (PROTONIX) 20 mg tablet Take 1 tablet by mouth once daily.amLODIPine (NORVASC) 5 mg tablet Take 1 tablet by mouth once daily.furosemide (LASIX) 20 mg tablet Take 1 tablet by mouth once daily.ergocalciferol, vitamin D2, (DRISDOL) 50,000 unit capsule Take 1 capsule bymouth once each week.Ipratropium Newberg (ATROVENT) 0.03 % nasal spray Use 2 Sprays in the noseevery 12 hours.aspirin 81 mg chewable tablet Take 2 tablets by mouth once daily.therapeutic multivitamin tablet Take 1 tablet by mouth daily with breakfast.fluticasone (FLOVENT HFA) 110 mcg/Actuation INHALATION inhaler Inhale 2 Puffsas instructed twice daily. Use with spacer. Rinse mouth out after use.TENS unit and electrodes cmpk Use as instructed.Blood-Glucose Meter monitoring kit Glucose Meter of Choice - Kit - Dx: E11.40.blood sugar diagnostic (BLOOD GLUCOSE TEST) test strip Test blood sugar(s) onetimes daily. Dx: Type 2 DM - Controlled E11.40 Insulin: NoLancets lancets Test blood sugar(s) one times daily. Dx: Type 2 DM -Controlled E11.40 Insulin: NoCOMPOUNDED PRESCRIPTION L8020 Breast ProsthesisCOMPOUNDED PRESCRIPTION L8000 Surgical/Mastectomy BrasPHYSICAL EXAM:VS: BP 154/75 Pulse 69 Temp 36.4 ?C (97.5 ?F) (Tympanic) Resp 20 Wt82.1 kg (181 lb) SpO2 96% BMI 34.2 kg/m2KPS: 100General appearance: Alert and oriented. No acute distress.HEENT: NCAT. EOMI. Sclera anicteric.Lymph nodes: There is no palpable lymphadenopathy in the cervical,supraclavicular or axillary region.Breasts: s/p right mastectomy with reconstruction. There is no suspiciousnodule or mass on the right chest wall. There is no dominant mass, suspiciousskin change or nipple discharge in the left breast.Extremities: No edema in upper extremities.ASSESSMENT AND PLAN: Clinically stable. She is scheduled to see Enid Dover a few weeks. She is regularly followed with Enid Jones. I will see [place] needed.Signed by: Power [facility]:Kamar Franklin MDMULTICARE HEALTHKYM [id number] [place], [place] [address]Lvzvt: [phone]: [phone] Provider: POWER RODRIGUEZ [[id number]]Allergies As of Date: 01/04/2017 Noted Allergy ReactionLOVASTATIN 01/08/2015 17 - Myalgia Comments: Leg painsSTATINS (IIONPFH-EIX-YFY REDUCTAS*11/22/2005 14 - Other: See Comments Comments: elevated liver enzymes.CODEINE 01/24/2005 Comments: nauseaPENICILLINS 01/24/2005 Comments: felt throat was swollenVICODIN (HYDROCODONE-ACETAMINOPHE*0 07/15/2011 9 - ItchingZETIA (EZETIMIBE) 06/28/2006 5 - Intolerance Comments: elevated liver enzymesDate Reviewed: 01/04/2017Reviewed by: Ana (Brandy) BRANDY Reyes - Fully AssessedReason for Visit: Recheck [92]Primary Visit Diagnosis:ER+ SD+ carcinoma of breast, 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, Z17.0]Prescriptions as of 01/04/2017 Sig: MECLIZINE 25 MG TABLET Take 1 tablet by mouth three * VENLAFAXINE 75 MG TABLET Take two (2) tablets in the A* IPRATROPIUM 20 MCG-ALBUTEROL * Inhale 1 Puff as instructed f* TRAMADOL 50 MG TABLET Take 1 tablet by mouth every * METOPROLOL TARTRATE 50 MG TAB* Take 2 tablets by mouth twice* TRAZODONE 100 MG TABLET Take 1 tablet by mouth daily * NITROGLYCERIN 0.4 MG SUBLINGU* Dissolve 1 tablet under the t* ONDANSETRON 4 MG DISINTEGRATI* Take 1 tablet by mouth every * HYDROCODONE 5 MG-ACETAMINOPHE* Take 1 tablet by mouth once d* WARFARIN 5 MG TABLET Take 1 tablet by mouth once d* ALPRAZOLAM 0.5 MG TABLET TAKE ONE TABLET BY MOUTH TWIC* ANASTROZOLE 1 MG TABLET Take 1 tablet by mouth once d* LISINOPRIL 20 MG TABLET Take 1 tablet by mouth twice * ATORVASTATIN 40 MG TABLET Take 1 tablet by mouth daily * PANTOPRAZOLE 20 MG TABLET,DEL* Take 1 tablet by mouth once d* AMLODIPINE 5 MG TABLET Take 1 tablet by mouth once d* FUROSEMIDE 20 MG TABLET Take 1 tablet by mouth once d* ERGOCALCIFEROL (VITAMIN D2) 5* Take 1 capsule by mouth once * IPRATROPIUM BROMIDE 0.03 % NA* Use 2 Sprays in the nose ever* ASPIRIN 81 MG CHEWABLE TABLET Take 2 tablets by mouth once * THERAPEUTIC MULTIVITAMIN TABL* Take 1 tablet by mouth daily * FLUTICASONE 110 MCG/ACTUATION* Inhale 2 Puffs as instructed * TENS UNIT AND ELECTRODES COMB* Use as instructed. BLOOD-GLUCOSE METER KIT Glucose Meter of Choice - Kit* BLOOD SUGAR DIAGNOSTIC STRIPS Test blood sugar(s) one times* LANCETS Test blood sugar(s) one times* COMPOUNDED PRESCRIPTION L8020 Breast Prosthesis COMPOUNDED PRESCRIPTION L8000 Surgical/Mastectomy BrasProblem List As Of Date 01/04/2017 Noted Resolved Coronary atherosclerosis [I25.10] INVALID FOR* More... More... Essential hypertension [I10] INVALID FOR* Venous (peripheral) insufficiency [I87.2] INVALID FOR* More... Anxiety state [F41.1] INVALID FOR* More... FEMALE STRESS INCONTINENCE [N39.3] INVALID FOR* ABNORMAL LIVER FUNCTION STUDY [R94.5] INVALID FOR*01/13/2006 More... ALLERGIC RHINITIS NOS [J30.9] INVALID FOR* INT DERANGEMENT KNEE NOS [M23.90] INVALID FOR*07/12/2005 TEAR MED MENISC KNEE-CURRENT [[id number]] INVALID FOR*07/12/2005 LATERAL EPICONDYLITIS [M77.10] INVALID FOR*06/03/2005 MONONEURITIS ARM NEC [G56.80] INVALID FOR*06/03/2005 AFTERCARE NOS [Z51.89] INVALID FOR*07/12/2005 Primary Localized Osteoarthrosis, Lower Leg [M1*INVALID FOR*02/09/2009 PES ANSERINUS TENDINITIS [[id number]] INVALID FOR*01/13/2006 SYMPTOMATIC FEMALE CLIMACTERIC STATE [N95.1] INVALID FOR* PULM EMBOLISM/INFARCT NOS [I26.99] INVALID FOR*02/29/2008 Asthma [J45.909] INVALID FOR* DIABETES MELLITUS TYPE II-UNCOMPL [E11.9] INVALID FOR*09/15/2008 Dermatophytosis of nail [B35.1] INVALID FOR*05/31/2012 Other acquired deformity of toe [M20.5X9] INVALID FOR*11/22/2011 Hallux valgus (acquired) [M20.10] INVALID FOR*05/31/2012 Pain in limb [M79.609] INVALID FOR*05/31/2012 DIABETES TYPE II W NEURO MANIFESTATIONS [E11.49]INVALID FOR*09/15/2008 Unspecified deformity of ankle and foot, acquir*INVALID FOR*11/22/2011 Dysmetabolic Syndrome X [E88.81] INVALID FOR*02/18/2009 PULMONARY EMBOLISM [I26.99] INVALID FOR*10/15/2008 Depressive disorder [F32.9] INVALID FOR* Diabetes mellitus type II, controlled (HCC) [E1*INVALID FOR* More... Lumbago [M54.5] INVALID FOR* More... Enthesopathy of hip region [M76.899] INVALID FOR*05/31/2012 Unspecified arthropathy, pelvic region and thig*INVALID FOR*05/31/2012 Irritated//Inflamed seborrheic keratosis [L82.0]INVALID FOR*05/31/2012 Other seborrheic keratoses [L82.1] INVALID FOR*05/31/2012 Actinic Damage//Sun-damaged skin [L57.8] INVALID FOR*05/31/2012 Solar lentigines [L81.4] INVALID FOR*05/31/2012 Skin tag [L91.8] INVALID FOR*05/31/2012 Epidermal cyst [L72.0] INVALID FOR*05/31/2012 Milia [L72.0] INVALID FOR*05/31/2012 Sebaceous Hyperplasia [L73.9] INVALID FOR*05/31/2012 Abdominal pain, acute, right upper quadrant [R1*INVALID FOR*11/22/2011 Acute gastritis without mention of hemorrhage [*INVALID FOR*12/30/2014 Abdominal pain, unspecified site [R10.9] INVALID FOR*11/22/2011 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 More... 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 KASIA (acute kidney injury) [N17.9] INVALID FOR*04/07/2013 Priority: F More... Acute blood loss anemia [D62] INVALID FOR*12/26/2013 Priority: H More... Atrial fibrillation [I48.91] INVALID FOR* Hypoxemia [R09.02] INVALID FOR*04/07/2013 Priority: B More... Atelectasis/Pleural Effusion/FVO [J98.11] INVALID FOR*12/26/2013 Priority: B More... More... Hyperlipidemia with target LDL less than 70 [E7*INVALID FOR* More... History of venous thromboembolism [Z86.718] INVALID FOR* Anticoagulation management encounter [Z51.81, Z*INVALID FOR* Non-proliferative diabetic retinopathy (HCC) [E*INVALID FOR* Vaginal burning [N94.9] INVALID FOR*12/30/2014 Hematuria [R31.9] INVALID FOR* UTI (lower urinary tract infection) [N39.0] INVALID FOR*12/30/2014 Right flank pain [R10.9] INVALID FOR*12/30/2014 Family history of malignant neoplasm of gastroi*INVALID FOR*02/19/2015 Vitamin D deficiency [E55.9] INVALID FOR* Pain in right hip [M25.551] INVALID FOR* Unstable angina (HCC) [I20.0] INVALID FOR*02/07/2016 Priority: Mild More... HTN (hypertension) [I10] INVALID FOR* More... CAD (coronary artery disease) [I25.10] INVALID FOR* More... VTE (venous thromboembolism) [I82.90] INVALID FOR*07/26/2016 More... Lipid disorder [E78.9] INVALID FOR* More... 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 NoNursing AssessmentFatigue: increased fatigue over baseline but not altering normalactivitiesAppetite: goodWeight Gain/Loss: NoLast 6 Encounter Wt Readings: Date: Wt: 01/04/2017 82.1 kg (181 lb) 11/25/2016 80.3 kg (177 lb) 11/15/2016 81.6 kg (180 lb) 11/05/2016 81.6 kg (180 lb) 09/07/2016 84.4 kg (186 lb) 09/07/2016 84.4 kg (186 lb)Bowel Function: normal bowel movementsBone Pain: noneFocused AssessmentBREAST: Lymphedema Assessment: Is the patient noting any swelling?No.Was approved? Did not have tabletSIGNED by: Ana Reyes RNEncounter Number: [id number] Status:Closed by POWER RODRIGUEZ MD on 01/04/17 Normal [facility] PROGRESSon 01-04-2017 PROGRESS HNO ID: [id number] thor: Fredo Marvin: (none)Author Type: PhysicianType: Progress NotesFiled: 01/04/2017 1:52 PMNote Text:PERTINENT CARDIAC HISTORYASHD - stent to LAD, RCA 2003.04/02/2013:CABG x 2 (APARICIO-LAD, SVG-om)Afib- post-opHTNHLPE/DVT- MCFP anticoagulation with WarfarinCLINICAL IMPRESSION/PLAN:Colette Richardson is doing well. Her coronary disease is stable. She hasbeen advised to continue her optimal medical therapy, including moderatedose Lipitor. This is the maximum dose that she can tolerate.Blood pressure is under good control.I've encouraged her to remain active and takes time for herself. INR willbe done today. She was directed to the [facility] Coumadin [facility].I will see her in 8 months or as needed. If there is increased chest painor shortness of breath, she has been advised to contact me.Written and verbal health teaching given to patient, patient verbalizesunderstanding and agrees with treatment plan.This note was generated using EZ4U voice recognition system, and theremay be some incorrect words, spellings, and punctuation that were notnoted in checking the note before saving.DIAGNOSIS FOR VISIT:ASHDHypertensionHISTO RY OF PRESENT ILLNESSShnichol Richardson returns for follow-up of her coronary disease andhypertension. She reports stable exercise tolerance. She has been caringfor her who is in the final stages of his illness. She's had norecent chest discomfort and has used no nitroglycerin. She has had noorthopnea. She's had minimal edema. She denies syncope, palpitations,TIAs, amaurosis and claudication.ALLERGIES:DARÍO RGIESAllergen Reactions- Lovastatin Myalgia Leg pains- Statins [Statins-Hm* Other: See Comments elevated liver enzymes.- Codeine nausea- Penicillins felt throat was swollen- Vicodin [Hydrocodon* Itching- Zetia [Ezetimibe] Intolerance elevated liver enzymesCURRENT OUTPATIENT MEDICATIONS:meclizine (ANTIVERT) 25 mg tab Take 1 tablet by mouth three times daily asneeded (dizziness).TENS unit and electrodes cmpk Use as instructed.venlafaxine (EFFEXOR) 75 mg tablet Take two (2) tablets in the AM and one(1) tablet in the PM.ipratropium-albuterol (COMBIVENT RESPIMAT) 20-100 mcg/actuation mistInhale 1 Puff as instructed four times daily.traMADol (ULTRAM) 50 mg tablet Take 1 tablet by mouth every 6 hours asneeded.metoprolol tartrate, short acting, (LOPRESSOR) 50 mg tablet Take 2 tabletsby mouth twice daily.traZODone (DESYREL) 100 mg tablet Take 1 tablet by mouth daily at bedtime.nitroglycerin sublingual (NITROQUICK) 0.4 mg SL tablet Dissolve 1 tabletunder the tongue as needed. FOR CHEST PAIN. IF NO RELIEF CALL 911ondansetron orally disintegrating (ZOFRAN ODT) 4 mg disintegrating tabletTake 1 tablet by mouth every 8 hours as needed for Nausea/Vomiting.HYDROcodone -acetaminophen (NORCO) 5-325 mg per tablet Take 1 tablet bymouth once daily. For back,hip pain.warfarin (COUMADIN) 5 mg tablet Take 1 tablet by mouth once daily.ALPRAZolam (XANAX) 0.5 mg tablet TAKE ONE TABLET BY MOUTH TWICE DAILY ASNEEDED FOR ANXIETYanastrozole (ARIMIDEX) 1 mg tablet Take 1 tablet by mouth once daily.lisinopril (PRINIVIL) 20 mg tablet Take 1 tablet by mouth twice daily.atorvastatin (LIPITOR) 40 mg tablet Take 1 tablet by mouth daily atbedtime.pantoprazole DR (PROTONIX) 20 mg tablet Take 1 tablet by mouth once daily.amLODIPine (NORVASC) 5 mg tablet Take 1 tablet by mouth once daily.furosemide (LASIX) 20 mg tablet Take 1 tablet by mouth once daily.Blood-Glucose Meter monitoring kit Glucose Meter of Choice - Kit - Dx:E11.40.blood sugar diagnostic (BLOOD GLUCOSE TEST) test strip Test blood sugar(s)one times daily. Dx: Type 2 DM - Controlled E11.40 Insulin: NoLancets lancets Test blood sugar(s) one times daily. Dx: Type 2 DM -Controlled E11.40 Insulin: Noergocalciferol, vitamin D2, (DRISDOL) 50,000 unit capsule Take 1 capsuleby mouth once each week.Ipratropium Newberg (ATROVENT) 0.03 % nasal spray Use 2 Sprays in the noseevery 12 hours.aspirin 81 mg chewable tablet Take 2 tablets by mouth once daily.therapeutic multivitamin tablet Take 1 tablet by mouth daily withbreakfast.COMPOUNDED PRESCRIPTION L8020 Breast ProsthesisCOMPOUNDED PRESCRIPTION L8000 Surgical/Mastectomy Brasfluticasone (FLOVENT HFA) 110 mcg/Actuation INHALATION inhaler Inhale 2Puffs as instructed twice daily. Use with spacer. Rinse mouth out afteruse.PHYSICAL EXAMINATION:VITAL SIGNS: BP 138/78 Pulse 64 Ht 5' 1 (1.55m) Wt 180 lb 4.8 oz(81.8kg) BMI 34.09 kg/(m2).Chest: Clear to percussion and auscultation. Trachea is midline. Airentry is equal. Cardiac: Regular rhythm. S1 and S2 are normal. PMI isnondisplaced. There is a soft systolic ejection murmur. Carotids arebrisk without bruits. JVP is less than 10 cm. Abdomen: Soft andnontender. There are no pulsatile masses or bruits. No liverenlargement. Bowel sounds are active. Extremities: Trace edema. Pulsesare intact and symmetrical.Recent labs were reviewed. Renal function is stable. Labs are due to berepeated in February for primary care. INR is overdue.Electronically Signed:Fredo Valdes [facility] 2016 1:31 PMCC: Kamar Franklin MD [facility] PROGRESS HNO ID: [id number] thor: Power Marinelli: (none)Author Type: PhysicianType: Progress NotesFiled: 01/04/2017 11:20 AMNote Text:Radiation Oncology - Follow Up NotePATIENT NAME: Colette RichardsonPATIENT : 1. Stage IA, T1cN0, ER positive, SD positive and Her2/neunegative, invasive ductal carcinoma of the left breast s/p lumpectomy andsentinel node biopsy, s/p radiation treatment finished on 10/09/12. She chinedu Arimidex. 2. Stage IIb right breast cancer in 1990. It was a T2 N1, ER positive,lymph node positive breast cancer. The patient had a right modifiedradical mastectomy followed by reconstruction. She had adjuvantchemotherapy with the FAC regimen x6 cycles followed by tamoxifen for 9years.INTERVAL HISTORY: She is doing well without any specific new complaints.She denies any lumps in the breasts. Left mammogram on 06/24/16 showedbenign findings.ALLERGIES:ALLERGIE SAllergen Reactions- Lovastatin Myalgia Leg pains- Statins [Statins-Hm* Other: See Comments elevated liver enzymes.- Codeine nausea- Penicillins felt throat was swollen- Vicodin [Hydrocodon* Itching- Zetia [Ezetimibe] Intolerance elevated liver enzymesMEDICATIONS:meclizin e (ANTIVERT) 25 mg tab Take 1 tablet by mouth three times daily asneeded (dizziness).venlafaxine (EFFEXOR) 75 mg tablet Take two (2) tablets in the AM and one(1) tablet in the PM.ipratropium-albuterol (COMBIVENT RESPIMAT) 20-100 mcg/actuation mistInhale 1 Puff as instructed four times daily.traMADol (ULTRAM) 50 mg tablet Take 1 tablet by mouth every 6 hours asneeded.metoprolol tartrate, short acting, (LOPRESSOR) 50 mg tablet Take 2 tabletsby mouth twice daily.traZODone (DESYREL) 100 mg tablet Take 1 tablet by mouth daily at bedtime.nitroglycerin sublingual (NITROQUICK) 0.4 mg SL tablet Dissolve 1 tabletunder the tongue as needed. FOR CHEST PAIN. IF NO RELIEF CALL 911ondansetron orally disintegrating (ZOFRAN ODT) 4 mg disintegrating tabletTake 1 tablet by mouth every 8 hours as needed for Nausea/Vomiting.HYDROcodone -acetaminophen (NORCO) 5-325 mg per tablet Take 1 tablet bymouth once daily. For back,hip pain.warfarin (COUMADIN) 5 mg tablet Take 1 tablet by mouth once daily.ALPRAZolam (XANAX) 0.5 mg tablet TAKE ONE TABLET BY MOUTH TWICE DAILY ASNEEDED FOR ANXIETYanastrozole (ARIMIDEX) 1 mg tablet Take 1 tablet by mouth once daily.lisinopril (PRINIVIL) 20 mg tablet Take 1 tablet by mouth twice daily.atorvastatin (LIPITOR) 40 mg tablet Take 1 tablet by mouth daily atbedtime.pantoprazole DR (PROTONIX) 20 mg tablet Take 1 tablet by mouth once daily.amLODIPine (NORVASC) 5 mg tablet Take 1 tablet by mouth once daily.furosemide (LASIX) 20 mg tablet Take 1 tablet by mouth once daily.ergocalciferol, vitamin D2, (DRISDOL) 50,000 unit capsule Take 1 capsuleby mouth once each week.Ipratropium Newberg (ATROVENT) 0.03 % nasal spray Use 2 Sprays in the noseevery 12 hours.aspirin 81 mg chewable tablet Take 2 tablets by mouth once daily.therapeutic multivitamin tablet Take 1 tablet by mouth daily withbreakfast.fluticasone (FLOVENT HFA) 110 mcg/Actuation INHALATION inhaler Inhale 2Puffs as instructed twice daily. Use with spacer. Rinse mouth out afteruse.TENS unit and electrodes cmpk Use as instructed.Blood-Glucose Meter monitoring kit Glucose Meter of Choice - Kit - Dx:E11.40.blood sugar diagnostic (BLOOD GLUCOSE TEST) test strip Test blood sugar(s)one times daily. Dx: Type 2 DM - Controlled Insulin: NoLancets lancets Test blood sugar(s) one times daily. Dx: Type 2 DM -Controlled 40 Insulin: NoCOMPOUNDED PRESCRIPTION L8020 Breast ProsthesisCOMPOUNDED PRESCRIPTION L8000 Surgical/Mastectomy BrasPHYSICAL EXAM:VS: BP 154/75 Pulse 69 Temp 36.4 ?C (97.5 ?F) (Tympanic) Resp 20 Wt 82.1 kg (181 lb) SpO2 96% BMI 34.2 kg/m2KPS: 100General appearance: Alert and oriented. No acute distress.HEENT: NCAT. EOMI. Sclera anicteric.Lymph nodes: There is no palpable lymphadenopathy in the cervical,supraclavicular or axillary region.Breasts: s/p right mastectomy with reconstruction. There is no suspiciousnodule or mass on the right chest wall. There is no dominant mass,suspicious skin change or nipple discharge in the left breast.Extremities: No edema in upper extremities.ASSESSMENT AND PLAN: Clinically stable. She is scheduled to see Yanni in a few weeks. She is regularly followed with Enid Jones.I will see her as needed.Signed by: Power Rodriguez [facility]:MARCUS Elmore [address] [address]Tkldi: [phone]: [phone] Normal [facility] CNOVon 11-25-2016 CNOV Office Visit (PNMDNA) -------COLETTE RICHARDSON ([id number]) 1935 FDate Time Provider Department11/25/16 10:40 AM JOAO FAY During your visit today, we recorded the following information about you: Pulse Weight 64/minute 80.3 kgPaul Soheila Fay MD 11/25/2016 11:32 AM SignedDATE: November 25, 2016Chief Complaint: Right Buttocks SUB JECTIVE:[facility]. [facility] a followup appointment regarding their right lower extremity pain. She states thatsince the last visit symptoms have been stable. The pain is located in theRight buttocks area and does radiate. The pain is described as burning,radiating, throbbing, tight band, tingling and cramping and is rated as 6 on ascale of 0-10. The patient Reports None. Symptoms interfere with physicalactivity, walking, cooking, household cleaning and lifting. The pain isexacerbated by standing and lifting. The pain is mitigated by sitting andmedications. The patient is overall improved with the injections by 60%.She is currently receiving medications through the [facility]. She is not havingdifficulty with her [facility] medications. The medications are partially effective. The patient states the last dose of .Ultram/tramadol was taken at November 24, 2016.REVIEW OF SYSTEMS:Constitutional:(-) Fever(-) Night Sweats(-) Weight Gain(-) Weight Loss(+) Fatigue Cardiovascular:(-) Chest Pain(-) Palpitations(-) Lightheadedness(-) Swelling of Ankles(+) Hx Heart SurgeryRespiratory:(-) Shortness of Breath(+) Cough(+) Wheezing(-) Snoring Gastrointestinal:(-) Incontinence(-) Abdominal Pain(-) Diarrhea(-) Constipation(-) Nausea/Vomiting(-) Heart BurnEndocrine:(-) Thyroid Disorder(-) Diabetes Hematologic:(-) Prolonged Bleeding(+) Easy BruisingGenitourinary:(+) Incontinence(-) Frequency(-) Urinary Urgency Skin:(-) Rashes(-) Itching(-) Other LesionsNeurologic:(-) Headache(-) Double Vision(-) Confusion(-) Paralysis Psychiatric:(+) Depression(+) Anxiety(-) Delusions(-) Hallucinations(-) Personal History of Alcohol or Substance Abuse(-) Family History of Alcohol or Substance Abuse PAST MEDICAL HISTORYDiagnosis Date- Abdominal pain, epigastric- Acute gastritis without mention of hemorrhage- Allergic rhinitis, cause unspecified 01/24/2005- Anxiety state, unspecified 01/24/2005- Asthma- Atrial fibrillation (HCC)- Breast cancer (HCC) 1989 Right- Chronic obstructive pulmonary disease (COPD) (HCC)- Coronary atherosclerosis of unspecified type of vessel, [place]andreau or graft01/24/2005 Stent to LAD, RCA 2003.- Coronary atherosclerosis of unspecified type of vessel, [place]reau or graft- Depressive disorder, not elsewhere classified 10/15/2008- Diverticulosis of colon (without mention of hemorrhage)- DVT (deep venous thrombosis) (HCC) 03/04/2009- Dysmetabolic syndrome X 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- Family history of malignant neoplasm of gastrointestinal tract- Female stress incontinence 01/24/2005- Impaired fasting glucose- Intestinal adhesions 07/09/2011- Lumbago 06/17/09 low back pain- Malignant neoplasm of breast (female), unspecified site 01/24/20051990 with no recurrence.- Malignant neoplasm of breast (female), unspecified site 2013 Breast cancer left- Microcalcifications of the breast- Nonspecific abnormal results of liver function study 01/24/2005 Fatty liver, nonalcoholic, chronic- Other and unspecified hyperlipidemia 01/24/2005- Other and unspecified hyperlipidemia- Other pulmonary embolism and infarction 03/10/2007- S/P epidural steroid injection Dec 2015 back/hip pain- Snoring- Type II or unspecified type diabetes mellitus without mention ofcomplication, not stated as uncontrolled 10/15/2008- Unspecified essential hypertension 01/24/2005- Unspecified venous (peripheral) insufficiency 01/24/2005 EdemaPAST SURGICAL [id number]: APPENDECTOMY06/21/12: BX BREAST PERC VACUUM/ROTN Comment: left07-11-12: BX/REMV,LYMPH NODE,DEEP AXILL Comment: LEFTMar.: CABG, ARTERY-VEIN, TWO Comment: CABG, two grafts05/30/2004: COLONOSCOP W/ OR W/O BRSH SPEC Comment: ColonoscopyHemant, LA09/15/09: COLONOSCOP W/ OR W/O BRSH SPEC02/19/15: COLONOSCOP W/ OR W/O BRSH SPEC Comment: Colonoscopy01/01/13: CYSTOSCOPY Comment: [place] [facility] cysto for khadijah/urge incontNo date: DANDamp;C, DIAG AND/OR THERAPEUTIC Comment: SAB about 54 yrs. ago03/28/11: EGD W/O BRSH SPECIMEN W/BXNo date: HEART SURGERY [id number]: KNEE SCOPE,DIAGNOSTIC Comment: Arthroscopy, knee, left06-21-05: KNEE SCOPE,DIAGNOSTIC Comment: Arthroscopy, knee, right07/08/11: LAP CHOLECYSTECT/CHOLANGIOGRAPH Y Comment: significant umbilical adhesions, Normal IO10/12/2015: LEFT HEART CATH,PERCUTANEOUS Comment: Cardiac cath, L [id number]: MASTECTOMY Comment: right radical with lymph node [id number]: MASTECTOMY, PARTIAL Comment: LEFT11/26/1990: MASTECTOMY, SIMPLE, COMPLETE Comment: Right sided, axillary [id number]: PAST SURGICAL HISTORY OF Comment: left clavicle reductionNo date: PAST SURGICAL HISTORY OF Comment: left bunionectomy, 2nd toe arthrodesisNo date: REMV CATARACT EXTRACAP,INSERT LENS Comment: Cataract Removal- [id number] and 1967: REPAIR ING HERNIA,5+Y/O,REDUCIBL Comment: Hernia repair, inguinal, rightNo date: REPAIR ROTATOR CUFF,ACUTE Comment: Rotator cuff repair [id number]: REPAIR UMBILICAL MARIO,ANDlt;5Y/O,REDUC Comment: Hernia repair, [id number]: STENT PLACEMENT Comment: LAD,[id number]: VAGINAL HYSTERECTOMY Comment: Hysterectomy, vaginalALLERGIESAllergen Reactions- Lovastatin Myalgia Leg pains- Statins [Statins-Hm* Other: See Comments elevated liver enzymes.- Codeine nausea- Penicillins felt throat was swollen- Vicodin [Hydrocodon* Itching- Zetia [Ezetimibe] Intolerance elevated liver enzymesCurrent Outpatient Prescriptions:venlafaxine (EFFEXOR) 75 mg tablet Take two (2) tablets in the AM and one (1)tablet in the PM.ipratropium-albuterol (COMBIVENT RESPIMAT) 20-100 mcg/actuation mist Inhale 1Puff as instructed four times daily.traMADol (ULTRAM) 50 mg tablet Take 1 tablet by mouth every 6 hours as needed.metoprolol tartrate, short acting, (LOPRESSOR) 50 mg tablet Take 2 tablets bymouth twice daily.traZODone (DESYREL) 100 mg tablet Take 1 tablet by mouth daily at bedtime.nitroglycerin sublingual (NITROQUICK) 0.4 mg SL tablet Dissolve 1 tablet underthe tongue as needed. FOR CHEST PAIN. IF NO RELIEF CALL 911meclizine (ANTIVERT) 25 mg tab Take 1 tablet by mouth three times daily asneeded (dizziness).ondansetron orally disintegrating (ZOFRAN ODT) 4 mg disintegrating tablet Take1 tablet by mouth every 8 hours as needed for Nausea/Vomiting.HYDROcodone -acetaminophen (NORCO) 5-325 mg per tablet Take 1 tablet by mouthonce daily. For back,hip pain.warfarin (COUMADIN) 5 mg tablet Take 1 tablet by mouth once daily.ALPRAZolam (XANAX) 0.5 mg tablet TAKE ONE TABLET BY MOUTH TWICE DAILY NEEDEDFOR ANXIETYanastrozole (ARIMIDEX) 1 mg tablet Take 1 tablet by mouth once daily.lisinopril (PRINIVIL) 20 mg tablet Take 1 tablet by mouth twice daily.atorvastatin (LIPITOR) 40 mg tablet Take 1 tablet by mouth daily at bedtime.pantoprazole DR (PROTONIX) 20 mg tablet Take 1 tablet by mouth once daily.amLODIPine (NORVASC) 5 mg tablet Take 1 tablet by mouth once daily.furosemide (LASIX) 20 mg tablet Take 1 tablet by mouth once daily.Blood-Glucose Meter monitoring kit Glucose Meter of Choice - Kit - Dx: E11.40.blood sugar diagnostic (BLOOD GLUCOSE TEST) test strip Test blood sugar(s) onetimes daily. Dx: Type 2 DM - Controlled E11.40 Insulin: NoLancets lancets Test blood sugar(s) one times daily. Dx: Type 2 DM -Controlled E11.40 Insulin: Noergocalciferol, vitamin D2, (DRISDOL) 50,000 unit capsule Take 1 capsule bymouth once each week.Ipratropium Newberg (ATROVENT) 0.03 % nasal spray Use 2 Sprays in the noseevery 12 hours.aspirin 81 mg chewable tablet Take 2 tablets by mouth once daily.therapeutic multivitamin tablet Take 1 tablet by mouth daily with breakfast.COMPOUNDED PRESCRIPTION L8020 Breast ProsthesisCOMPOUNDED PRESCRIPTION L8000 Surgical/Mastectomy Brasfluticasone (FLOVENT HFA) 110 mcg/Actuation INHALATION inhaler Inhale 2 Puffsas instructed twice daily. Use with spacer. Rinse mouth out after use.TENS unit and electrodes cmpk Use as instructed.No current facility-administered medications for this visit.I have reviewed the nurses notes and I am aware of the family/social history.Since the last evaluation the medical history has not changed.PHYSICAL EXAMINATION:Vitals: Pulse 64 Wt 177 lb (80.3kg) SpO2 93%Performed in conjunction with observation.The patient is alert and oriented x3.The patient is in no acute distress.Station and Gait: Normal stance, normal gait.Lungs: normal respiratory rate and rhythm.Cardiovascular: regular rate.Neck: Supple. The range of motion is intact.Back: Range of motion of the trunk was generally intact.Spine: right gluteal Tenderness on palpation: no focal tenderness over theright PSIS.Extremities: no reported edema or erythema.Motor: Exhibits full strength in all four extremities.ASSESSMENT:Asse ssment :Encounter Diagnosis ICD-10-CM1. 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 Chronic right-sided low back pain with right-sided sciatica M54.41 G89.294. 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 Myofascial pain M79.1OARRS website checked and validated. All prescriptions have been APPROPRIATELYfilled. No suspicious activity was identified.- 11/25/2016 by Lizzie Mooreotic Agreement reviewed and signed?: N/A on November 25, 2016Urine Panel:No results found for: UQCANN, UQBNZL, LKV9FQT, UQAMPH, UQMAMP, UQBUPRE,UQNORBUP, UQMTHD, UQEDDP, UQTRAM, UQDTRM, UQFNTL, UQNFTL, UQCODE, UQMORP,UQDCDN, UQHCOD, UQOXYC, UQHMOR, UQOXYM, UQCREA, UQPH, UQSPGR, UQOXID, UQSPQThe pain panel was N/APLAN:1. Discussed multicomponent pain source.2. Recommend a trial of TENS unit.3. No interventional procedures indicated4. Encouraged home PT.5) Follow up:3 months for an office visit.The treatment plan was discussed with the patient during the office visit andthey verbalized an understanding of it.Joao Fay, [facility]: Dr. Kamra Franklin, [facility]: Joao Fay MD[address] [facility] [address]Hayqx: [phone]: [phone] of consultation to be transmitted via electronic medical record forthose providers who practice within [facility] or with access to [employer] via MD Connect,or via letter.Referring Provider: JOAO FAY [[id number]]Allergies As of Date: 11/25/2016 Noted Allergy ReactionLOVASTATIN 01/08/2015 17 - Myalgia Comments: Leg painsSTATINS (CEDRNJA-SCH-DEQ REDUCTAS*11/22/2005 14 - Other: See Comments Comments: elevated liver enzymes.CODEINE 01/24/2005 Comments: nauseaPENICILLINS 01/24/2005 Comments: felt throat was swollenVICODIN (HYDROCODONE-ACETAMINOPHE*0 07/15/2011 9 - ItchingZETIA (EZETIMIBE) 06/28/2006 5 - Intolerance Comments: elevated liver enzymesDate Reviewed: 11/25/2016Reviewed by: Lizzie Valentine Ma - Fully AssessedReason for Visit: Established Patient [175] Cmt: Follow up injectionsPrimary Visit Diagnosis:Arthritis of sacroiliac joint (HCC) [M46.98] Other Visit Diagnoses:Chronic right SI joint pain [M53.3, G89.29] Chronic right-sided low back pain with right-sided sciatica [M54.41, G89.29] 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 [M99.43] Myofascial pain [M79.1]Order(s):TENS unit and electrodes cmpkUse as instructed.Disp: 1 DeviceRfl: 0Prescriptions as of 11/25/2016 Sig: VENLAFAXINE 75 MG TABLET Take two (2) tablets in the A* IPRATROPIUM 20 MCG-ALBUTEROL * Inhale 1 Puff as instructed f* TRAMADOL 50 MG TABLET Take 1 tablet by mouth every * METOPROLOL TARTRATE 50 MG TAB* Take 2 tablets by mouth twice* TRAZODONE 100 MG TABLET Take 1 tablet by mouth daily * NITROGLYCERIN 0.4 MG SUBLINGU* Dissolve 1 tablet under the t* MECLIZINE 25 MG TABLET Take 1 tablet by mouth three * ONDANSETRON 4 MG DISINTEGRATI* Take 1 tablet by mouth every * HYDROCODONE 5 MG-ACETAMINOPHE* Take 1 tablet by mouth once d* WARFARIN 5 MG TABLET Take 1 tablet by mouth once d* ALPRAZOLAM 0.5 MG TABLET TAKE ONE TABLET BY MOUTH TWIC* ANASTROZOLE 1 MG TABLET Take 1 tablet by mouth once d* LISINOPRIL 20 MG TABLET Take 1 tablet by mouth twice * ATORVASTATIN 40 MG TABLET Take 1 tablet by mouth daily * PANTOPRAZOLE 20 MG TABLET,DEL* Take 1 tablet by mouth once d* AMLODIPINE 5 MG TABLET Take 1 tablet by mouth once d* FUROSEMIDE 20 MG TABLET Take 1 tablet by mouth once d* BLOOD-GLUCOSE METER KIT Glucose Meter of Choice - Kit* BLOOD SUGAR DIAGNOSTIC STRIPS Test blood sugar(s) one times* LANCETS Test blood sugar(s) one times* ERGOCALCIFEROL (VITAMIN D2) 5* Take 1 capsule by mouth once * IPRATROPIUM BROMIDE 0.03 % NA* Use 2 Sprays in the nose ever* ASPIRIN 81 MG CHEWABLE TABLET Take 2 tablets by mouth once * THERAPEUTIC MULTIVITAMIN TABL* Take 1 tablet by mouth daily * COMPOUNDED PRESCRIPTION L8020 Breast Prosthesis COMPOUNDED PRESCRIPTION L8000 Surgical/Mastectomy Bras FLUTICASONE 110 MCG/ACTUATION* Inhale 2 Puffs as instructed * TENS UNIT AND ELECTRODES COMB* Use as instructed.X VENLAFAXINE 75 MG TABLET Take two (2) tablets in the A*Problem List As Of Date 11/25/2016 Noted Resolved Coronary atherosclerosis [I25.10] INVALID FOR* More... More... Essential hypertension [I10] INVALID FOR* Venous (peripheral) insufficiency [I87.2] INVALID FOR* More... Anxiety state [F41.1] INVALID FOR* More... FEMALE STRESS INCONTINENCE [N39.3] INVALID FOR* ABNORMAL LIVER FUNCTION STUDY [R94.5] INVALID FOR*01/13/2006 More... ALLERGIC RHINITIS NOS [J30.9] INVALID FOR* INT DERANGEMENT KNEE NOS [M23.90] INVALID FOR*07/12/2005 TEAR MED MENISC KNEE-CURRENT [[id number]] INVALID FOR*07/12/2005 LATERAL EPICONDYLITIS [M77.10] INVALID FOR*06/03/2005 MONONEURITIS ARM NEC [G56.80] INVALID FOR*06/03/2005 AFTERCARE NOS [Z51.89] INVALID FOR*07/12/2005 Primary Localized Osteoarthrosis, Lower Leg [M1*INVALID FOR*02/09/2009 PES ANSERINUS TENDINITIS [[id number]] INVALID FOR*01/13/2006 SYMPTOMATIC FEMALE CLIMACTERIC STATE [N95.1] INVALID FOR* PULM EMBOLISM/INFARCT NOS [I26.99] INVALID FOR*02/29/2008 Asthma [J45.909] INVALID FOR* DIABETES MELLITUS TYPE II-UNCOMPL [E11.9] INVALID FOR*09/15/2008 Dermatophytosis of nail [B35.1] INVALID FOR*05/31/2012 Other acquired deformity of toe [M20.5X9] INVALID FOR*11/22/2011 Hallux valgus (acquired) [M20.10] INVALID FOR*05/31/2012 Pain in limb [M79.609] INVALID FOR*05/31/2012 DIABETES TYPE II W NEURO MANIFESTATIONS [E11.49]INVALID FOR*09/15/2008 Unspecified deformity of ankle and foot, acquir*INVALID FOR*11/22/2011 Dysmetabolic Syndrome X [E88.81] INVALID FOR*02/18/2009 PULMONARY EMBOLISM [I26.99] INVALID FOR*10/15/2008 Depressive disorder [F32.9] INVALID FOR* Diabetes mellitus type II, controlled (HCC) [E1*INVALID FOR* More... Lumbago [M54.5] INVALID FOR* More... Enthesopathy of hip region [M76.899] INVALID FOR*05/31/2012 Unspecified arthropathy, pelvic region and thig*INVALID FOR*05/31/2012 Irritated//Inflamed seborrheic keratosis [L82.0]INVALID FOR*05/31/2012 Other seborrheic keratoses [L82.1] INVALID FOR*05/31/2012 Actinic Damage//Sun-damaged skin [L57.8] INVALID FOR*05/31/2012 Solar lentigines [L81.4] INVALID FOR*05/31/2012 Skin tag [L91.8] INVALID FOR*05/31/2012 Epidermal cyst [L72.0] INVALID FOR*05/31/2012 Milia [L72.0] INVALID FOR*05/31/2012 Sebaceous Hyperplasia [L73.9] INVALID FOR*05/31/2012 Abdominal pain, acute, right upper quadrant [R1*INVALID FOR*11/22/2011 Acute gastritis without mention of hemorrhage [*INVALID FOR*12/30/2014 Abdominal pain, unspecified site [R10.9] INVALID FOR*11/22/2011 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 More... 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 KASIA (acute kidney injury) [N17.9] INVALID FOR*04/07/2013 Priority: F More... Acute blood loss anemia [D62] INVALID FOR*12/26/2013 Priority: H More... Atrial fibrillation [I48.91] INVALID FOR* Hypoxemia [R09.02] INVALID FOR*04/07/2013 Priority: B More... Atelectasis/Pleural Effusion/FVO [J98.11] INVALID FOR*12/26/2013 Priority: B More... More... Hyperlipidemia with target LDL less than 70 [E7*INVALID FOR* More... History of venous thromboembolism [Z86.718] INVALID FOR* Anticoagulation management encounter [Z51.81, Z*INVALID FOR* Non-proliferative diabetic retinopathy (HCC) [E*INVALID FOR* Vaginal burning [N94.9] INVALID FOR*12/30/2014 Hematuria [R31.9] INVALID FOR* UTI (lower urinary tract infection) [N39.0] INVALID FOR*12/30/2014 Right flank pain [R10.9] INVALID FOR*12/30/2014 Family history of malignant neoplasm of gastroi*INVALID FOR*02/19/2015 Vitamin D deficiency [E55.9] INVALID FOR* Pain in right hip [M25.551] INVALID FOR* Unstable angina (HCC) [I20.0] INVALID FOR*02/07/2016 Priority: Mild More... HTN (hypertension) [I10] INVALID FOR* More... CAD (coronary artery disease) [I25.10] INVALID FOR* More... VTE (venous thromboembolism) [I82.90] INVALID FOR*07/26/2016 More... Lipid disorder [E78.9] INVALID FOR* More... 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*INVALID FOR*Prescriptions ordered this encounter Disp Refills Start End TENS UNIT AND ELECTRODES COMBO PACK 1 De* 0 11/25/2016 Class: Print RX Sig: Use as instructed. Status:Closed by JOAO FAY MD on 11/25/16 Normal [facility] PROGRESSon 11-25-2016 PROGRESS HNO ID: [id number] thor: Joao Alves: (none)Author Type: PhysicianType: Progress NotesFiled: 11/25/2016 11:32 AMNote Text:DATE: November 25, 2016Chief Complaint: Right Buttocks SUB JECTIVE:[facility] afollow up appointment regarding their right lower extremity pain. Shestates that since the last visit symptoms have been stable. The pain islocated in the Right buttocks area and does radiate. The pain isdescribed as burning, radiating, throbbing, tight band, tingling andcramping and is rated as 6 on a scale of 0-10. The patient Reports None.Symptoms interfere with physical activity, walking, cooking, householdcleaning and lifting. The pain is exacerbated by standing and lifting. Thepain is mitigated by sitting and medications. The patient is overallimproved with the injections by 60%.She is currently receiving medications through the [facility]. She is not havingdifficulty with her [facility] medications. The medications are partiallyeffective. The patient states the last dose of .Ultram/tramadol was taken at November 24, 2016.REVIEW OF SYSTEMS:Constitutional:(-) Fever(-) Night Sweats(-) Weight Gain(-) Weight Loss(+) Fatigue Cardiovascular:(-) Chest Pain(-) Palpitations(-) Lightheadedness(-) Swelling of Ankles(+) Hx Heart SurgeryRespiratory:(-) Shortness of Breath(+) Cough(+) Wheezing(-) Snoring Gastrointestinal:(-) Incontinence(-) Abdominal Pain(-) Diarrhea(-) Constipation(-) Nausea/Vomiting(-) Heart BurnEndocrine:(-) Thyroid Disorder(-) Diabetes Hematologic:(-) Prolonged Bleeding(+) Easy BruisingGenitourinary:(+) Incontinence(-) Frequency(-) Urinary Urgency Skin:(-) Rashes(-) Itching(-) Other LesionsNeurologic:(-) Headache(-) Double Vision(-) Confusion(-) Paralysis Psychiatric:(+) Depression(+) Anxiety(-) Delusions(-) Hallucinations(-) Personal History of Alcohol or Substance Abuse(-) Family History of Alcohol or Substance Abuse PAST MEDICAL HISTORYDiagnosis Date- Abdominal pain, epigastric- Acute gastritis without mention of hemorrhage- Allergic rhinitis, cause unspecified 01/24/2005- Anxiety state, unspecified 01/24/2005- Asthma- Atrial fibrillation (HCC)- Breast cancer ([facility]) 1989 Right- Chronic obstructive pulmonary disease (COPD) ([facility])- Coronary atherosclerosis of unspecified type of vessel, [place]reau or graft01/24/2005 Stent to LAD, RCA 2003.- Coronary atherosclerosis of unspecified type of vessel, [place]reau or graft- Depressive disorder, not elsewhere classified 10/15/2008- Diverticulosis of colon (without mention of hemorrhage)- DVT (deep venous thrombosis) ([facility]) 03/04/2009- Dysmetabolic syndrome X 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- Family history of malignant neoplasm of gastrointestinal tract- Female stress incontinence 01/24/2005- Impaired fasting glucose- Intestinal adhesions 07/09/2011- Lumbago 06/17/09 low back pain- Malignant neoplasm of breast (female), unspecified site 01/24/20051990 with no recurrence.- Malignant neoplasm of breast (female), unspecified site 2012 Breast cancer left- Microcalcifications of the breast- Nonspecific abnormal results of liver function study 01/24/2005 Fatty liver, nonalcoholic, chronic- Other and unspecified hyperlipidemia 01/24/2005- Other and unspecified hyperlipidemia- Other pulmonary embolism and infarction 03/10/2007- S/P epidural steroid injection Dec 2015 back/hip pain- Snoring- Type II or unspecified type diabetes mellitus without mention ofcomplication, not stated as uncontrolled 10/15/2008- Unspecified essential hypertension 01/24/2005- Unspecified venous (peripheral) insufficiency 01/24/2005 EdemaPAST SURGICAL [id number]: APPENDECTOMY06/21/12: BX BREAST PERC VACUUM/ROTN Comment: left07-11-12: BX/REMV,LYMPH NODE,DEEP AXILL Comment: LEFTNov.: CABG, ARTERY-VEIN, TWO Comment: CABG, two grafts05/30/2004: COLONOSCOP W/ OR W/O BRSH SPEC Comment: ColonoscopyHemant, [place]09/15/09: COLONOSCOP W/ OR W/O BRSH SPEC02/19/15: COLONOSCOP W/ OR W/O BRSH SPEC Comment: Colonoscopy01/01/13: CYSTOSCOPY Comment: Liam office cysto for khadijah/urge incontNo date: DANDC, DIAG AND/OR THERAPEUTIC Comment: SAB about 54 yrs. ago03/28/11: EGD W/O BRSH SPECIMEN W/BXNo date: HEART SURGERY [id number]: KNEE SCOPE,DIAGNOSTIC Comment: Arthroscopy, knee, left06-21-05: KNEE SCOPE,DIAGNOSTIC Comment: Arthroscopy, knee, right07/08/11: LAP CHOLECYSTECT/CHOLANGIOGRAPH Y Comment: significant umbilical adhesions, Normal IO10/12/2015: LEFT HEART CATH,PERCUTANEOUS Comment: Cardiac cath, L [id number]: MASTECTOMY Comment: right radical with lymph node [id number]: MASTECTOMY, PARTIAL Comment: LEFT11/26/1990: MASTECTOMY, SIMPLE, COMPLETE Comment: Right sided, axillary [id number]: PAST SURGICAL HISTORY OF Comment: left clavicle reductionNo date: PAST SURGICAL HISTORY OF Comment: left bunionectomy, 2nd toe arthrodesisNo date: REMV CATARACT EXTRACAP,INSERT LENS Comment: Cataract Removal- [id number] and 1967: REPAIR ING HERNIA,5+Y/O,REDUCIBL Comment: Hernia repair, inguinal, rightNo date: REPAIR ROTATOR CUFF,ACUTE Comment: Rotator cuff repair [id number]: REPAIR UMBILICAL MARIO,<5Y/O,REDUC Comment: Hernia repair, [id number]: STENT PLACEMENT Comment: LAD,[id number]: VAGINAL HYSTERECTOMY Comment: Hysterectomy, vaginalALLERGIESAllergen Reactions- Lovastatin Myalgia Leg pains- Statins [Statins-Hm* Other: See Comments elevated liver enzymes.- Codeine nausea- Penicillins felt throat was swollen- Vicodin [Hydrocodon* Itching- Zetia [Ezetimibe] Intolerance elevated liver enzymesCurrent Outpatient Prescriptions:venlafaxine (EFFEXOR) 75 mg tablet Take two (2) tablets in the AM and one(1) tablet in the PM.ipratropium-albuterol (COMBIVENT RESPIMAT) 20-100 mcg/actuation mistInhale 1 Puff as instructed four times daily.traMADol (ULTRAM) 50 mg tablet Take 1 tablet by mouth every 6 hours asneeded.metoprolol tartrate, short acting, (LOPRESSOR) 50 mg tablet Take 2 tabletsby mouth twice daily.traZODone (DESYREL) 100 mg tablet Take 1 tablet by mouth daily at bedtime.nitroglycerin sublingual (NITROQUICK) 0.4 mg SL tablet Dissolve 1 tabletunder the tongue as needed. FOR CHEST PAIN. IF NO RELIEF CALL 911meclizine (ANTIVERT) 25 mg tab Take 1 tablet by mouth three times daily asneeded (dizziness).ondansetron orally disintegrating (ZOFRAN ODT) 4 mg disintegrating tabletTake 1 tablet by mouth every 8 hours as needed for Nausea/Vomiting.HYDROcodone -acetaminophen (NORCO) 5-325 mg per tablet Take 1 tablet bymouth once daily. For back,hip pain.warfarin (COUMADIN) 5 mg tablet Take 1 tablet by mouth once daily.ALPRAZolam (XANAX) 0.5 mg tablet TAKE ONE TABLET BY MOUTH TWICE DAILY ASNEEDED FOR ANXIETYanastrozole (ARIMIDEX) 1 mg tablet Take 1 tablet by mouth once daily.lisinopril (PRINIVIL) 20 mg tablet Take 1 tablet by mouth twice daily.atorvastatin (LIPITOR) 40 mg tablet Take 1 tablet by mouth daily atbedtime.pantoprazole DR (PROTONIX) 20 mg tablet Take 1 tablet by mouth once daily.amLODIPine (NORVASC) 5 mg tablet Take 1 tablet by mouth once daily.furosemide (LASIX) 20 mg tablet Take 1 tablet by mouth once daily.Blood-Glucose Meter monitoring kit Glucose Meter of Choice - Kit - Dx:E11.40.blood sugar diagnostic (BLOOD GLUCOSE TEST) test strip Test blood sugar(s)one times daily. Dx: Type 2 DM - Controlled E11.40 Insulin: NoLancets lancets Test blood sugar(s) one times daily. Dx: Type 2 DM -Controlled E11.40 Insulin: Noergocalciferol, vitamin D2, (DRISDOL) 50,000 unit capsule Take 1 capsuleby mouth once each week.Ipratropium Newberg (ATROVENT) 0.03 % nasal spray Use 2 Sprays in the noseevery 12 hours.aspirin 81 mg chewable tablet Take 2 tablets by mouth once daily.therapeutic multivitamin tablet Take 1 tablet by mouth daily withbreakfast.COMPOUNDED PRESCRIPTION L8020 Breast ProsthesisCOMPOUNDED PRESCRIPTION L8000 Surgical/Mastectomy Brasfluticasone (FLOVENT HFA) 110 mcg/Actuation INHALATION inhaler Inhale 2Puffs as instructed twice daily. Use with spacer. Rinse mouth out afteruse.TENS unit and electrodes cmpk Use as instructed.No current facility-administered medications for this visit.I have reviewed the nurses notes and I am aware of the family/socialhistory.Since the last evaluation the medical history has not changed.PHYSICAL EXAMINATION:Vitals: Pulse 64 Wt 177 lb (80.3kg) SpO2 93%Performed in conjunction with observation.The patient is alert and oriented x3.The patient is in no acute distress.Station and Gait: Normal stance, normal gait.Lungs: normal respiratory rate and rhythm.Cardiovascular: regular rate.Neck: Supple. The range of motion is intact.Back: Range of motion of the trunk was generally intact.Spine: right gluteal Tenderness on palpation: no focal tenderness over theright PSIS.Extremities: no reported edema or erythema.Motor: Exhibits full strength in all four extremities.ASSESSMENT:Asse ssment :Encounter Diagnosis ICD-10-CM1. 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 Chronic right-sided low back pain with right-sided sciatica M54.41 G89.294. 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 Myofascial pain M79.1OARRS website checked and validated. All prescriptions have beenAPPROPRIATELY filled. No suspicious activity was identified.- 11/25/2016brian Argueta Agreement reviewed and signed?: N/A on November 25, 2016Urine Panel:No results found for: UQCANN, UQBNZL, IFA1JEO, UQAMPH, UQMAMP, UQBUPRE,UQNORBUP, UQMTHD, UQEDDP, UQTRAM, UQDTRM, UQFNTL, UQNFTL, UQCODE, UQMORP,UQDCDN, UQHCOD, UQOXYC, UQHMOR, UQOXYM, UQCREA, UQPH, UQSPGR, UQOXID,UQSPQThe pain panel was N/APLAN:1. Discussed multicomponent pain source.2. Recommend a trial of TENS unit.3. No interventional procedures indicated4. Encouraged home PT.5) Follow up:3 months for an office visit.The treatment plan was discussed with the patient during the office visitand they verbalized an understanding of it.Joao Fay, [facility]: Dr. Kamar Franklin, [facility]: Joao Fay MD[address] [facility] [address]Wvxjz: [phone]: [phone] of consultation to be transmitted via electronic medical recordfor those providers who practice within [facility] or with access to [employer] via MDConnect, or via letter. Normal [facility] Encounters Encounter Date Encounter Type Care Provider Facility Start: 06-14-2017 End: 06-14-2017 Ambulatory JOAO FAY [facility] Start: 04-03-2017 End: 04-03-2017 Ambulatory JESSIE (SCARLETT) OLDER [facility] Start: 03-21-2017 End: 03-22-2017 Ambulatory KAMAR FRANKLIN [facility] Start: 03-07-2017 End: 03-09-2017 Ambulatory KAMAR FRANKLIN [facility] Start: 03-06-2017 End: 03-07-2017 Ambulatory KAMAR FRANKLIN [facility] Start: 02-15-2017 Ambulatory KAMAR FRANKLIN [facility] Start: 01-04-2017 End: 01-04-2017 Ambulatory FREDO VALDES [facility] Start: 11-25-2016 End: 11-25-2016 Ambulatory JOAO FAY [facility] Summary Purpose Family History No Family History Records FoundNo Family History Records FoundNo Family History Records Found Advance Directives No Advanced Directives Records FoundNo Advanced Directives Records FoundNo Advanced Directives Records Found Additional Source Comments INFORMATION SOURCE (unrecogn ized section and content) DATE CREATED AUTHOR 11/16/2017 [facility] DATE CREATED AUTHOR AUTHOR'S ORGANIZ ATION 11/17/2017 [facility] DATE CREATED AUTHOR AUTHOR'S ORGANIZ ATION 04/23/2019 [facility] ([place]) FOR RECORDS PERTAINING TO PATIENTS WHO ARE [...] BE BASED ON THE PRIMARY CLINICAL RECORDS. [facility] [email or web address] [facility]. provides no warranty or guarantee of the accuracy or completeness of information in this document.
--- NOTE | 2024-03-24 13:08 | CT_ITS ---
STUDY: CT RIGHT HIP REASON FOR EXAM: Female, 88 years old. Hip pain CONTRAST: None. TECHNIQUE: Transaxial imaging of the hip was performed with reformatted sagittal and coronal images. The protocol utilizes one or more of the following dose reduction techniques: automated exposure control, adjustment of mA and/or kV according to patient size,and/or use of iterative reconstruction technique. COMPARISON: Radiographs of the right hip of the same day. FINDINGS: HIP Mild narrowing of the hip joint. The acetabulum appears unremarkable. Mild subchondral cystic changes in the femoral neck. No evidence of acute fracture or dislocation. SOFT TISSUES: No evidence of significant soft tissue swelling or joint effusion. Vascular calcifications. CT/Extremity Lower without Contra IMPRESSION: No evidence of acute fracture. Electronically Signed: Tyrel Diaz MD at 14:26 EDT ,
[2024-03-24 13:31] VITALS: BP 142/68; PULSE 62; RESP 16
[2024-03-24 14:18] VITALS: BP 165/65; PULSE 64; RESP 18; O2SAT 96
== END 2024-03-24 16:33 | disposition home or self-care (01) ==
PROVIDERS: Emergency Provider Emergency Medicine; PCP Family Medicine; Visit Provider Emergency Medicine
DX: M25.551 Pain in right hip (principal); G20.A1 Parkinson's disease without dyskinesia, without mention of fluctuations; I48.0 Paroxysmal atrial fibrillation; W19.XXXA Unspecified fall, initial encounter; I25.10 Atherosclerotic heart disease of native coronary artery without angina pectoris; I10 Essential (primary) hypertension; I25.2 Old myocardial infarction; Z79.01 Long term (current) use of anticoagulants; Z79.899 Other long term (current) drug therapy; Z87.891 Personal history of nicotine dependence; Z95.1 Presence of aortocoronary bypass graft; Z95.5 Presence of coronary angioplasty implant and graft
CPT/HCPCS: 71045; 73502; 73700; 96374; 96375; 99285; A4216; J2405

== ENCOUNTER → 2024-03-25 | Outpatient (REF) | payer MEDICARE, SELFPAY ==
[2024-03-25 07:25] LABS: Hematocrit 37.5 % (37-47); Hemoglobin 12.3 g/dL (12.0-15.0); Mean Corp Hgb Conc 32.8 g/dL (32-36); Mean Corpuscular Hgb 31.2 pg (27.0-32.0); Mean Corpuscular Volume 95.2 fL (81-99); Mean Platelet Vol. 9.8 fl (6.2-12.0); Platelet Count 165 K/mm3 (150-450); RBC Distribution Width CV 13.1 % (11.6-14.6); RBC Distribution Width SD 45.8 fl (35.1-43.9); Red Blood Count 3.94 M/mm3 (4.2-5.4); White Blood Count 4.6 K/mm3 (4.4-11.0)
[2024-03-25 07:31] LABS: Bacteria 0 SEEN /hpf (None Seen); Mucous, Urine 0 SEEN /hpf (<or=2+); Red Blood Cells-Urine 0 SEEN /hpf (0-5)
[2024-03-25 07:38] LABS: Anion Gap 4 (5-15); BUN 9 mg/dL (7-18); BUN/Creat Ratio 14.1 RATIO (10-20); Calcium,Total 8.3 mg/dL (8.5-10.1); Chloride 105 mmol/L (98-107); Creatinine, Serum 0.64 mg/dL (0.55-1.02); EST Glomerular Filtration Rate 94 mL/min (>60); Est Glom Filt Rate - Afr Amer 114 mL/min (>60); Glucose 94 mg/dL (74-106); Potassium 3.8 mmol/L (3.5-5.1); Sodium Level 140 mmol/L (136-145)
[2024-03-25 08:22] LABS: Color, Urine Yellow (Yellow); Glucose, Dipstick Normal (Normal); Ketone-Dipstick Negative (Negative); Leukocyte Esterase-Dipstick 25 /ul (Negative); Nitrite-Dipstick Negative (Negative); Occult Blood-Urine 25 /ul (Negative); Protein-Dipstick 15 mg/dl (Negative); Urine Bilirubin Dipstick Negative (Negative); Urine Clarity Sl. Cloudy (Clear); Urine Urobilinogen Normal (Normal)
[2024-03-25 08:49] LABS: Squamous Epithelial Cells - UA 0-5 SEEN /hpf (5-10); Transitional Epithelial - Ur 0-5 SEEN /hpf (0-5)
[2024-03-25 08:50] LABS: White Blood Cells 0-5 SEEN /hpf (0-5)
[2024-03-25 08:59] LABS: Procalcitonin 0.05 ng/mL (0.00-0.09)
[2024-03-25 09:01] LABS: International Normalized Ratio 1.5; Prothrombin Time (Protime)PT. 18.2 SECONDS (11.7-14.9)
== END ==
PROVIDERS: PCP Family Medicine; Visit Provider Family Medicine
DX: N39.0 Urinary tract infection, site not specified (principal); E78.5 Hyperlipidemia, unspecified; Z79.01 Long term (current) use of anticoagulants; I10 Essential (primary) hypertension; R41.82 Altered mental status, unspecified; E87.1 Hypo-osmolality and hyponatremia; G93.41 Metabolic encephalopathy
CPT/HCPCS: 36415; 80048; 81001; 84145; 85027; 85610; 87086

== ENCOUNTER → 2024-04-04 | Outpatient (REF) | payer MEDICARE, SELFPAY ==
[2024-04-04 08:08] LABS: Hematocrit 37.1 % (37-47); Hemoglobin 11.8 g/dL (12.0-15.0); Mean Corp Hgb Conc 31.8 g/dL (32-36); Mean Corpuscular Hgb 30.2 pg (27.0-32.0); Mean Corpuscular Volume 94.9 fL (81-99); Mean Platelet Vol. 9.4 fl (6.2-12.0); Platelet Count 294 K/mm3 (150-450); RBC Distribution Width CV 12.8 % (11.6-14.6); RBC Distribution Width SD 44.6 fl (35.1-43.9); Red Blood Count 3.91 M/mm3 (4.2-5.4); White Blood Count 4.9 K/mm3 (4.4-11.0)
[2024-04-04 08:29] LABS: Anion Gap 3 (5-15); BUN 13 mg/dL (7-18); BUN/Creat Ratio 20.8 RATIO (10-20); Calcium,Total 8.7 mg/dL (8.5-10.1); Chloride 105 mmol/L (98-107); Creatinine, Serum 0.62 mg/dL (0.55-1.02); EST Glomerular Filtration Rate 96 mL/min (>60); Est Glom Filt Rate - Afr Amer 116 mL/min (>60); Glucose 102 mg/dL (74-106); Sodium Level 137 mmol/L (136-145); T4 Free Direct 0.92 ng/dL (0.76-1.46)
[2024-04-05 05:08] LABS: Prealbumin 16 mg/dL (9-32)
== END ==
PROVIDERS: PCP Family Medicine; Visit Provider Family Medicine
DX: I48.91 Unspecified atrial fibrillation (principal); D64.9 Anemia, unspecified; R53.83 Other fatigue; R63.4 Abnormal weight loss; R41.82 Altered mental status, unspecified; Z79.899 Other long term (current) drug therapy
CPT/HCPCS: 36415; 80048; 84134; 84439; 84443; 85027

== ENCOUNTER → 2024-06-16 | Outpatient (REF) | payer MEDICARE, SELFPAY ==
[2024-06-16 11:07] LABS: Bacteria 0 SEEN /hpf (None Seen); Mucous, Urine 0 SEEN /hpf (<or=2+); Red Blood Cells-Urine 0 SEEN /hpf (0-5); Squamous Epithelial Cells - UA 0 SEEN /hpf (5-10); White Blood Cells 0 SEEN /hpf (0-5)
[2024-06-16 11:12] LABS: Color, Urine Straw (Yellow); Glucose, Dipstick Normal (Normal); Ketone-Dipstick Negative (Negative); Leukocyte Esterase-Dipstick Negative /ul (Negative); Nitrite-Dipstick Negative (Negative); Occult Blood-Urine Negative /ul (Negative); Protein-Dipstick Negative (Negative); Specific Gravity, Urine 1.005 (1.002-1.030); Urine Bilirubin Dipstick Negative (Negative); Urine Clarity Clear (Clear); Urine Urobilinogen Normal (Normal)
== END ==
PROVIDERS: PCP Family Medicine; Visit Provider Family Medicine
DX: R41.82 Altered mental status, unspecified (principal)
CPT/HCPCS: 81001; 87086

== ENCOUNTER → 2024-07-01 | Outpatient (REF) | payer MEDICARE, SELFPAY ==
[2024-07-01 08:37] LABS: INR Fingerstick 1.2; Prothrombin Time Fingerstick 13.8 SEC (11.7-14.9)
== END ==
PROVIDERS: PCP Family Medicine; Visit Provider Family Medicine
DX: Z79.01 Long term (current) use of anticoagulants (principal)
CPT/HCPCS: 36416; 85610

== ENCOUNTER → 2024-07-02 | Outpatient (REF) | payer MEDICARE, SELFPAY ==
[2024-07-02 08:43] LABS: International Normalized Ratio 1.1; Prothrombin Time (Protime)PT. 14.7 SECONDS (11.7-14.9)
== END ==
PROVIDERS: PCP Family Medicine; Visit Provider Family Medicine
DX: I48.92 Unspecified atrial flutter (principal); Z79.01 Long term (current) use of anticoagulants
CPT/HCPCS: 36415; 85610

== ENCOUNTER → 2024-07-03 | Outpatient (REF) | payer MEDICARE, SELFPAY ==
[2024-07-03 06:16] LABS: INR Fingerstick 1.1; Prothrombin Time Fingerstick 13.5 SEC (11.7-14.9)
== END ==
PROVIDERS: PCP Family Medicine; Visit Provider Family Medicine
DX: I48.92 Unspecified atrial flutter (principal); Z79.01 Long term (current) use of anticoagulants
CPT/HCPCS: 36416; 85610

== ENCOUNTER → 2024-07-04 05:00 | Outpatient (REF) | payer MEDICARE, SELFPAY ==
[2024-07-04 10:04] LABS: International Normalized Ratio 1.3; Prothrombin Time (Protime)PT. 16.4 SECONDS (11.7-14.9)
== END ==
PROVIDERS: PCP Family Medicine; Visit Provider Family Medicine
DX: I48.92 Unspecified atrial flutter (principal)
CPT/HCPCS: 36415; 85610

== ENCOUNTER → 2024-07-05 | Outpatient (REF) | payer MEDICARE, SELFPAY ==
[2024-07-05 08:36] LABS: INR Fingerstick 1.2
== END ==
PROVIDERS: PCP Family Medicine; Visit Provider Family Medicine
DX: I48.92 Unspecified atrial flutter (principal); Z79.01 Long term (current) use of anticoagulants
CPT/HCPCS: 36416; 85610

== ENCOUNTER → 2024-07-08 | Outpatient (REF) | payer MEDICARE, SELFPAY ==
[2024-07-08 09:15] LABS: INR Fingerstick 1.9; Prothrombin Time Fingerstick 21.2 SEC (11.7-14.9)
== END ==
PROVIDERS: PCP Family Medicine; Visit Provider Family Medicine
DX: Z79.01 Long term (current) use of anticoagulants (principal)
CPT/HCPCS: 36416; 85610

== ENCOUNTER → 2024-07-09 05:00 | Outpatient (REF) | payer MEDICARE, SELFPAY ==
[2024-07-09 08:50] LABS: International Normalized Ratio 2.1; Prothrombin Time (Protime)PT. 23.8 SECONDS (11.7-14.9)
== END ==
PROVIDERS: PCP Family Medicine; Visit Provider Family Medicine
DX: Z79.01 Long term (current) use of anticoagulants (principal)
CPT/HCPCS: 36415; 85610

== ENCOUNTER → 2024-07-12 | Outpatient (REF) | payer MEDICARE, SELFPAY ==
[2024-07-12 08:14] LABS: INR Fingerstick 1.7; Prothrombin Time Fingerstick 18.8 SEC (11.7-14.9)
== END ==
PROVIDERS: PCP Family Medicine; Visit Provider Family Medicine
DX: Z79.01 Long term (current) use of anticoagulants (principal)
CPT/HCPCS: 36416; 85610

== ENCOUNTER → 2024-07-15 05:00 | Outpatient (REF) | payer MEDICARE, SELFPAY ==
[2024-07-15 08:39] LABS: International Normalized Ratio 1.8; Prothrombin Time (Protime)PT. 21.5 SECONDS (11.7-14.9)
== END ==
PROVIDERS: PCP Family Medicine; Visit Provider Family Medicine
DX: Z79.01 Long term (current) use of anticoagulants (principal)
CPT/HCPCS: 36415; 85610

== ENCOUNTER → 2024-07-16 05:00 | Outpatient (REF) | payer MEDICARE, SELFPAY ==
[2024-07-16 11:06] LABS: International Normalized Ratio 1.9; Prothrombin Time (Protime)PT. 22.3 SECONDS (11.7-14.9)
== END ==
PROVIDERS: PCP Family Medicine; Visit Provider Family Medicine
DX: Z79.01 Long term (current) use of anticoagulants (principal)
CPT/HCPCS: 36415; 85610

== ENCOUNTER → 2024-07-17 | Outpatient (REF) | payer MEDICARE, SELFPAY ==
[2024-07-17 08:35] LABS: INR Fingerstick 1.6; Prothrombin Time Fingerstick 18.3 SEC (11.7-14.9)
== END ==
PROVIDERS: PCP Family Medicine; Visit Provider Family Medicine
DX: Z79.01 Long term (current) use of anticoagulants (principal)
CPT/HCPCS: 36416; 85610

== ENCOUNTER → 2024-07-18 05:00 | Outpatient (REF) | payer MEDICARE, SELFPAY ==
[2024-07-18 09:17] LABS: International Normalized Ratio 2.2; Prothrombin Time (Protime)PT. 25.3 SECONDS (11.7-14.9)
== END ==
PROVIDERS: PCP Family Medicine; Visit Provider Family Medicine
DX: Z79.01 Long term (current) use of anticoagulants (principal)
CPT/HCPCS: 36415; 85610

== ENCOUNTER → 2024-07-22 | Outpatient (REF) | payer MEDICARE, SELFPAY ==
[2024-07-22 08:55] LABS: International Normalized Ratio 1.9; Prothrombin Time (Protime)PT. 22.5 SECONDS (11.7-14.9)
== END ==
PROVIDERS: PCP Family Medicine; Visit Provider Family Medicine
DX: Z79.01 Long term (current) use of anticoagulants (principal)
CPT/HCPCS: 36415; 85610

== ENCOUNTER → 2024-07-24 | Outpatient (REF) | payer MEDICARE, SELFPAY ==
[2024-07-24 07:48] LABS: INR Fingerstick 2.1; Prothrombin Time Fingerstick 23.3 SEC (11.7-14.9)
== END ==
PROVIDERS: PCP Family Medicine; Visit Provider Family Medicine
DX: Z79.01 Long term (current) use of anticoagulants (principal)
CPT/HCPCS: 36416; 85610

== ENCOUNTER → 2024-07-25 | Outpatient (REF) | payer MEDICARE, SELFPAY ==
[2024-07-25 09:13] LABS: INR Fingerstick 2.2; Prothrombin Time Fingerstick 24.3 SEC (11.7-14.9)
== END ==
PROVIDERS: PCP Family Medicine; Referring Provider Family Medicine; Visit Provider Family Medicine
DX: Z79.01 Long term (current) use of anticoagulants (principal)
CPT/HCPCS: 36416; 85610

== ENCOUNTER → 2024-07-29 | Outpatient (REF) | payer MEDICARE, SELFPAY ==
[2024-07-29 08:27] LABS: International Normalized Ratio 2.8; Prothrombin Time (Protime)PT. 30.2 SECONDS (11.7-14.9)
== END ==
PROVIDERS: PCP Family Medicine; Visit Provider Family Medicine
DX: I48.92 Unspecified atrial flutter (principal); Z79.01 Long term (current) use of anticoagulants
CPT/HCPCS: 36415; 85610

== ENCOUNTER → 2024-08-12 | Outpatient (REF) | payer MEDICARE, SELFPAY ==
[2024-08-12 09:41] LABS: International Normalized Ratio 2.5; Prothrombin Time (Protime)PT. 27.8 SECONDS (11.7-14.9)
== END ==
PROVIDERS: PCP Family Medicine; Referring Provider Family Medicine; Visit Provider Family Medicine
DX: Z79.01 Long term (current) use of anticoagulants (principal)
CPT/HCPCS: 36415; 85610

== ENCOUNTER → 2024-09-09 | Outpatient (REF) | payer MEDICARE, SELFPAY ==
[2024-09-09 09:26] LABS: International Normalized Ratio 2.5; Prothrombin Time (Protime)PT. 27.6 SECONDS (11.7-14.9)
== END ==
PROVIDERS: PCP Family Medicine; Referring Provider Family Medicine; Visit Provider Family Medicine
DX: Z79.01 Long term (current) use of anticoagulants (principal)
CPT/HCPCS: 36415; 85610

== ENCOUNTER 2024-10-09 19:00 | Emergency (ER) | payer MEDICARE, SELFPAY ==
[2024-10-09 19:02] VITALS: BP 178/84; PULSE 66; RESP 18; TEMP 36.8; O2SAT 96; BMI 27.6
--- NOTE | 2024-10-09 19:25 | CT_ITS ---
EXAM: CT Head Without Intravenous Contrast CLINICAL INDICATION: HEAD INJURY TECHNIQUE: Axial computed tomography images of the head/brain without intravenous contrast. This CT exam was performed using one or more of the following dose reduction techniques: automated exposure control, adjustment of the mA and/or kV according to patient size, and/or use of iterative reconstruction technique. COMPARISON: No relevant prior studies available. FINDINGS: BRAIN AND EXTRA-AXIAL SPACES: Areas of decreased attenuation in the deep cerebral white matter are consistent with small vessel ischemic/degenerative changes. The cerebral and cerebellar sulci are prominent consistent with brain atrophy. No acute intracranial hemorrhage, midline shift or mass effect. If symptoms persist, further evaluation with MRI is recommended. BONES/JOINTS: Unremarkable. No acute fracture. SOFT TISSUES: Unremarkable. SINUSES: Unremarkable as visualized. No acute sinusitis. MASTOID AIR CELLS: Unremarkable as visualized. No mastoid effusion. CT/Brain/Head without Contrast IMPRESSION: 1. Small vessel ischemic/degenerative changes. 2. Generalized brain atrophy. 3. No acute intracranial hemorrhage, midline shift or mass effect. If symptoms persist, further evaluation with MRI is recommended. Reading Location: [id number]
--- NOTE | 2024-10-09 19:25 | CT_ITS ---
EXAM: CT Cervical Spine Without Intravenous Contrast CLINICAL INDICATION: INJURY TECHNIQUE: Axial computed tomography images of the cervical spine without intravenous contrast. This CT exam was performed using one or more of the following dose reduction techniques: automated exposure control, adjustment of the mA and/or kV according to patient size, and/or use of iterative reconstruction technique. COMPARISON: No relevant prior studies available. FINDINGS: VERTEBRAE: Mild reversal cervical spine lordosis. 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 No acute fracture. DISCS/SPINAL CANAL/NEURAL FORAMINA: Degenerative disc disease lower cervical spine. SOFT TISSUES: Unremarkable. CT/Spine Cervical without Contras IMPRESSION: 1. No acute fracture. 2. Degenerative changes cervical spine as described. Reading Location: [id number]
--- NOTE | 2024-10-09 19:26 | ED.VIS.FALL ---
HPI HPI - Fall History of Present Illness Chief Complaint: Head Injury Informant: patient and family Narrative Narrative: Brought from [facility] by EMS daughter present for the kitchen. She history of Parkinson's and was a walker states get 100 feet her cat when somehow she went down. She bumped her head on the floor she did not lose consciousness. He is on warfarin history of paroxysmal A-fib along with blood clots in the past. Denies chest pains abdominal pain back pain denies extremity pains. States discomfort to the left forehead and mild discomfort to left wrist. PFSH PFSH Medical History History of Parkinson's disease Memory loss Nonrheumatic aortic (valve) stenosis Poor balance Frequent falls residential current use of anticoagulant Rheumatoid arthritis Parkinsonian syndrome History of pulmonary embolus (PE) Postoperative atrial fibrillation (04/04/13) Recurrent deep vein thrombosis (DVT) Hypercoagulable state History of non-ST elevation myocardial infarction (NSTEMI) (10/01/16) Atherosclerotic heart disease of [place] coronary artery without angina pectoris Paroxysmal atrial fibrillation Essential hypertension Restrictive airway disease Atrial fibrillation with RVR (10/01/16) Bilateral breast cancer Depression Home Medications ?Medication ?Instructions ?Recorded ?Last Taken ?Type venlafaxine 75 mg tablet 75 mg PO QHS DEPRESSION 02/14/19 06/15/22 20:45 History albuterol sulfate 90 mcg/actuation 2 puff inhalation Q6H PRN Wheezing 09/23/21 Unknown History aerosol inhaler (Ventolin HFA) losartan 100 mg tablet 100 mg PO DAILY BP 09/23/21 06/16/22 09:15 History trazodone 100 mg tablet 100 mg PO QHS Sleep 09/23/21 06/15/22 20:45 History hydroxychloroquine 200 mg tablet 200 mg PO BID RA 11/02/21 06/16/22 09:15 History venlafaxine 150 mg 150 mg PO BREAKFAST DEPRESSION 11/02/21 06/16/22 09:15 History capsule,extended release 24 hr alprazolam 0.25 mg tablet 0.25 mg PO QHS PRN PRN 11/10/21 06/15/22 11:30 Rx Anxiety/Restlessness/Sleep #0 tabs potassium chloride 20 mEq 20 meq PO DAILYCM 30 days #30 tabs 11/10/21 06/16/22 09:15 Rx tablet,extended release(part/cryst) (Klor-Con M) acetaminophen 325 mg tablet 650 mg PO Q6H PRN Pain 06/16/22 06/08/22 20:00 History alprazolam 0.5 mg tablet 0.5 mg PO QHS DEPRESSION 06/16/22 06/15/22 20:45 History metoprolol tartrate 100 mg tablet 100 mg PO BID HTN 06/16/22 06/16/22 09:15 History carbidopa 10 mg-levodopa 100 mg 1 tab PO TID 01/09/23 Unknown History disintegrating tablet metoprolol tartrate 100 mg tablet 100 mg PO BID 01/09/23 Unknown History warfarin 5 mg tablet 5 mg PO DINNER AFIB 01/09/23 Unknown History warfarin 6 mg tablet 6 mg PO .3XW 01/09/23 Unknown History ondansetron 4 mg disintegrating 4 mg PO Q8H PRN PRN Nausea #10 tabs 02/02/23 Unknown Rx tablet Allergy/AdvReac Type Severity Reaction Status Date / Time memantine Allergy PT UNSURE Verified 10/09/24 19:02 OF REACTION Penicillins Allergy Anaphylaxis Verified 10/09/24 19:02 acetaminophen (From Vicodin) AdvReac Itching Verified 03/24/24 11:05 codeine AdvReac Nausea Verified 10/09/24 19:02 ezetimibe (From Zetia) AdvReac Itching Verified 10/09/24 19:02 hydrocodone bitartrate (From AdvReac Itching Verified 10/09/24 19:02 Vicodin) Zsbobws-DGE-TkA Reductase AdvReac Other Verified 10/09/24 19:02 Inhibitor (Unkuqmd-Yrs-Eaj Reductase Inhibitor) Surgical History History of coronary artery stent placement (12/2003) History of left heart catheterization (10/13/15) History of cardioversion (10/01/16) 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) History of appendectomy Social History household members: none Smoking Status: Former smoker how long ago did patient quit smokin, 1ppd second hand exposure: Yes alcohol intake: never substance use type: does not use ROS ROS ED Constitutional Constitutional ED: Denies chills, fever(s) or sweats ENT ENT ED: Denies sore throat Cardiovascular Cardiovascular: Denies chest pain, leg edema, palpitations or racing heartbeat Respiratory/Chest Respiratory/Chest: Denies cough, dyspnea or dyspnea on exertion Gastrointestinal Gastrointestinal: Denies abdominal pain, diarrhea, nausea or vomiting Genitourinary Genitourinary ED: Denies dysuria, hematuria or urinary frequency Musculoskeletal Musculoskeletal: Denies back pain, extremity pain or neck pain Integumentary Reports wounds; Denies rash Neurologic Neurologic: Reports headache(s); Denies paresthesias or weakness EXAM Physical Exam Const Vital Signs: 10/09/24 19:02 10/09/24 19:14 10/09/24 20:34 Temperature 98.2 F Temperature Source Oral Pulse Rate 66 69 Respiratory Rate 18 18 Respiratory Effort Normal Non-Labored Respiratory Depth Normal Respiratory Pattern Normal Blood Pressure 178/84 H 175/104 H Blood Pressure Mean 115 127 Pulse Ox 96 98 Oxygen Delivery Method Room Air 10/09/24 20:54 Temperature 98.0 F Temperature Source Pulse Rate 68 Respiratory Rate 18 Respiratory Effort Respiratory Depth Respiratory Pattern Blood Pressure 188/80 H Blood Pressure Mean 116 Pulse Ox 96 Oxygen Delivery Method Positive well nourished and well developed Constitutional Narrative: GCS 15. General Appearance ED: well developed and NAD HEENT Reports moist mucous membranes HEENT Narrative: Small contusion left upper outer forehead. No laceration. normocephalic Eyes General Eye ED: Yes normal appearance of both eyes Neck full ROM Neck Narrative: No midline tenderness or step-offs. Chest Wall inspection of chest normal and palpation of chest normal Chest: Negative for tenderness Resp normal respiratory effort and normal air movement Effort and Inspection: symmetric chest movement; Negative for respiratory distress Cardio regular rate, regular rhythm and no murmurs Peripheral Pulses: pulses 2+ throughout GI normal to inspection, nondistended, normoactive bowel sounds and non-tender Palpation: Negative for guarding or rebound tenderness present Extremity normal to inspection Extremity Narrative: Negative logroll of the lower extremities. Soft compartments. Upper extremity full range of motion. No tenderness of the elbows or any bony tenderness of the wrist or hand. Skin intact. General Extremety ED: Negative for edema or tenderness General Extremity: Negative for edema Neuro oriented x3, CN's II-XII intact bilaterally and no sensory deficits noted Sensorium / Orientation: awake and alert Skin no rashes or lesions noted and no wounds MDM MDM MDM Narrative Medical decision making narrative: Interventions / MDM: Differential diagnosis: Closed head injury, forehead contusion, chronic anticoagulants Diagnosis considered but do not suspect: Fracture, intracranial hemorrhage however CT negative. My EKG interpretation: N/A Imaging independently reviewed and interpreted by myself: CT brain/cervical spine: No intracranial hemorrhage, no fracture. Also read by radiology. External documents reviewed: N/A Test considered but not ordered:N/A ED course: Patient with a fall history of Parkinson's on warfarin. Small contusion on the forehead. IV established with labs. Will check her INR. Will check trauma scans of head and neck. Trauma scans negative INR therapeutic at 2.4. Patient able to ambulate in the ED with no difficulties. Discharge home with daughter. She will use Tylenol as needed. All questions were answered. Re-evaluation: stable Disposition discussed with patient/family/significant other: Patient and daughter Case discussed with consulting clinician: N/A This note was generated with [employer] dictation software. It may contain incorrect words, spelling, and punctuation that were not noted in checking the note before signing. Lab Data Attestation: I reviewed the patient's lab results. Labs: Laboratory Results - last 24 hr 10/09/24 19:14 WBC 5.5 RBC 4.18 L Hgb 13.1 Hct 38.7 MCV 92.6 MCH 31.3 MCHC 33.9 RDW Std Deviation 42.1 RDW Coeff of Lindy 12.3 Plt Count 196 MPV 10.3 Immature Gran % (Auto) 0.200 Neut % (Auto) 52.6 Lymph % (Auto) 33.8 [place] % (Auto) 8.5 Eos % (Auto) 4.2 Baso % (Auto) 0.7 Absolute Neuts (auto) 2.9 Absolute Lymphs (auto) 1.87 Nucleated RBC % 0 PT 26.6 H INR 2.4 APTT 32.4 Sodium 134 Potassium 4.3 Chloride 99 Carbon Dioxide 28.1 Anion Gap 7 BUN 14 Creatinine 0.66 L Estim Creat Clear Calc 43.20 L Est GFR (MDRD) Non-Af 85 BUN/Creatinine Ratio 20.6 H Glucose 131 H Calcium 8.8 Radiography Diagnostic Testing: Clinical Impression(s) from Imaging Studies Brain CT 10/09/24 19:25 IMPRESSION: 1. Small vessel ischemic/degenerative changes. 2. Generalized brain atrophy. 3. No acute intracranial hemorrhage, midline shift or mass effect. If symptoms persist, further evaluation with MRI is recommended. Reading Location: [facility] Cervical Spine CT 10/09/24 19:25 IMPRESSION: 1. No acute fracture. 2. Degenerative changes cervical spine as described. Reading Location: [facility] Discharge Plan Triage Chief Complaint: Head Injury Other Complaint: Fall ED Provider: Se Schmidt Dx/Rx/DC Orders Clinical Impression: CHI (closed head injury), Chronic anticoagulation, Contusion of face, Fall Instructions: Bruises (Contusions), ED Head Injury (Adult) Prescriptions: No Action trazodone 100 mg tablet 100 mg PO QHS Patient Comments: TAKE 1 TABLET BY MOUTH AT BEDTIME albuterol sulfate [Ventolin HFA] 90 mcg/actuation HFA aerosol inhaler 2 puff inhalation Q6H PRN (Reason: Wheezing) losartan 100 mg tablet 100 mg PO DAILY Patient Comments: DAUGHTER IS UNSURE IF PT IS STILL TAKING. SHE WILL VERIFY AND CALL WITH UPDATE. warfarin 6 mg tablet 6 mg PO .3XW Rx Instructions: take on tab PO on time a day three times weekly on , and Sun in the evening carbidopa-levodopa 10-100 mg tablet,disintegrating 1 tab PO TID metoprolol tartrate 100 mg tablet 100 mg PO BID venlafaxine 75 MG tablet 75 mg PO QHS venlafaxine 150 mg Capsule,Extended Release 24hr 150 mg PO BREAKFAST hydroxychloroquine 200 mg tablet 200 mg PO BID Patient Comments: TAKE 1 TABLET BY MOUTH TWICE DAILY alprazolam 0.25 mg Tablet 0.25 mg PO QHS PRN PRN (Reason: Anxiety/Restlessness/Sleep) Qty: 0 0RF potassium chloride [Klor-Con M20] 20 mEq Tablet,Er Particles/Crystals 20 meq PO DAILYCM 30 Days Qty: 30 0RF acetaminophen 325 mg Tablet 650 mg PO Q6H PRN (Reason: Pain) metoprolol tartrate 100 mg tablet 100 mg PO BID alprazolam 0.5 mg tablet 0.5 mg PO QHS warfarin 5 mg tablet 5 mg PO DINNER Rx Instructions: 1 tb PO one time a day four times weekly on Mon, Wed, Fri, and Sat Evening. ondansetron [ondansetron] 4 mg tablet,disintegrating 4 mg PO Q8H PRN PRN (Reason: Nausea) Qty: 10 0RF Primary Care Provider: Melo Shrestha Referrals: Melo Shrestha MD [Primary Care Provider] - 1 Week Activity Restrictions/Additional Instructions: Your INR is 2.[address] head and neck negative for acute process. Use Tylenol as needed. Follow-up with your doctor. Print Language: Citizen [place] Disposition Disposition: Home, Self Care Discharge Date/Time: 10/09/24 20:56
[2024-10-09 19:51] LABS: Absolute Lymphocyte Count 1.87 X10^3/uL (0.83-4.51); Absolute Neutrophil Count 2.9 X10^3/uL (2.0-7.7); Basophil# 0.04 X10^3/uL; Basophil% 0.7 % (0-1); Eosinophil# 0.23 X10^3/uL; Eosinophils% 4.2 % (0-5); Hematocrit 38.7 % (37-47); Hemoglobin 13.1 g/dL (12.0-15.0); Lymphocyte # 1.87 X10^3/ul (0.83-4.51); Lymphocyte % 33.8 % (19-41); Mean Corp Hgb Conc 33.9 g/dL (32-36); Mean Corpuscular Hgb 31.3 pg (27.0-32.0); Mean Corpuscular Volume 92.6 fL (81-99); Mean Platelet Vol. 10.3 fl (6.2-12.0); Monocyte# 0.47 X10^3/uL; Monocyte% 8.5 % (0-10); NRBC Flagged by Analyzer 0 % (0-5); Neutrophil # 2.92 X10^3/uL (2.7-7.7); Neutrophil % 52.6 % (47-70); Platelet Count 196 K/mm3 (150-450); RBC Distribution Width CV 12.3 % (11.6-14.6); RBC Distribution Width SD 42.1 fl (35.1-43.9); Red Blood Count 4.18 M/mm3 (4.2-5.4); White Blood Count 5.5 K/mm3 (4.4-11.0)
[2024-10-09 19:59] LABS: Anion Gap 7 (5-15); BUN 14 mg/dL (4-19); BUN/Creat Ratio 20.6 RATIO (10-20); Calcium,Total 8.8 mg/dL (7.6-11.0); Carbon Dioxide 28.1 mmol/L (21.0-32.0); Chloride 99 mmol/L (98-108); Creatinine, Serum 0.66 mg/dL (0.70-1.20); EST Glomerular Filtration Rate 85 (>60); Glucose 131 mg/dL (70-99); Potassium 4.3 mmol/L (3.3-5.1); Sodium Level 134 mmol/L (133-145)
[2024-10-09 20:14] LABS: International Normalized Ratio 2.4; Prothrombin Time (Protime)PT. 26.6 SECONDS (11.7-14.9)
[2024-10-09 20:15] LABS: Partial Thromboplast Time 32.4 Seconds (24.1-36.2)
[2024-10-09 20:34] VITALS: BP 175/104; PULSE 69; RESP 18; O2SAT 98
[2024-10-09 20:54] VITALS: BP 188/80; PULSE 68; RESP 18; TEMP 36.7; O2SAT 96
== END 2024-10-09 20:56 | disposition home or self-care (01) ==
PROVIDERS: Emergency Provider Emergency Medicine; PCP Family Medicine; Visit Provider Emergency Medicine
DX: S00.83XA Contusion of other part of head, initial encounter (principal); G20.A1 Parkinson's disease without dyskinesia, without mention of fluctuations; I48.0 Paroxysmal atrial fibrillation; W18.30XA Fall on same level, unspecified, initial encounter; Y92.090 Kitchen in other non-institutional residence as the place of occurrence of the external cause; I25.10 Atherosclerotic heart disease of native coronary artery without angina pectoris; I10 Essential (primary) hypertension; I25.2 Old myocardial infarction; Z79.01 Long term (current) use of anticoagulants; Z79.899 Other long term (current) drug therapy; Z87.891 Personal history of nicotine dependence
CPT/HCPCS: 70450; 72125; 80048; 85025; 85610; 85730; 99285

== ENCOUNTER → 2024-10-22 | Outpatient (REF) | payer MEDICARE, SELFPAY ==
[2024-10-22 09:48] LABS: International Normalized Ratio 2.3
== END ==
PROVIDERS: PCP Family Medicine; Referring Provider Family Medicine; Visit Provider Family Medicine
DX: Z79.01 Long term (current) use of anticoagulants (principal)
CPT/HCPCS: 36415; 85610

== ENCOUNTER → 2024-12-13 05:00 | Outpatient (REF) | payer MEDICARE, SELFPAY ==
--- OUTSIDE RECORDS SUMMARY | 2024-12-13 04:13 | XMS RPT_ITS | CCD ---
Author Organization [facility] Care Team Providers Care Baggage Porter Name Role Phone JOAO PALOMINO Unavailable Unavailable JOAO PALOMINO Unavailable Unavailable MICHAEL, DAESUNG Unavailable Unavailable MICHAEL, DAESUNG Unavailable Unavailable FREDO VALDES E Unavailable Unavailable KEISHAFREDO WILSON E Unavailable Unavailable FRANKLIN, ZITA Unavailable Unavailable FRANKLIN, ZITA Unavailable Unavailable FRANKLIN, ZITA Unavailable Unavailable FRANKLIN, ZITA Unavailable Unavailable FRANKLIN, ZITA Unavailable Unavailable FRANKLIN, ZITA Unavailable Unavailable OLDER, JESSIE (STEAM GIGGER) Unavailable Unavailable Dr. Joe Rosario Emergency Provider Dr. Joao Simon Primary Care Provider Dr. Rogerio Genao Admit Provider Dr. Rogerio Genao Attending Provider Dr. Rogerio Genao Other Provider Dr. Dusty Santana Attending Provider Dr. Dusty Santana Other Provider Dr. Joao Simon Referring Provider Dr. Rickey Fung Attending Provider Dr. Joao Simon Primary Care Provider Dr. Joyce Rios Emergency Provider Dr. Luci Hess Admit Provider Dr. Luci Hess Other Provider Dr. Gail Avina Attending Provider Dr. Gail Avina Other Provider Dr. Joao Simon Primary Care Provider Dr. Hortensia Unger Primary Care Provider Dr. Jesse Davis Emergency Provider Dr. Gonzalo Stephens Admit Provider Dr. Gonzalo Stephens Attending Provider Dr. Gonzalo Stephens [facility] Attending Provider Rose Mariemilanmalick, Dr. Ba Other Provider Dr. Hortensia Unger Primary Care Provider Dr. Jesse Davis Emergency Provider TerDr. Gonzalo mullenit Provider Dr. Gonzalo Stephens Attending Provider Dr. Gonzalo Stephens Other Provider Jessica, Dr. Ba Attending Provider Jessica, Dr. Ba Other Provider Dr. Hortensia Unger Primary Care Provider Dr. Hortensia Unger Referring Provider Dr. Tom Sorenson Attending Provider Dr. Hortensia Unger Primary Care Provider Dr. Hortensia Unger Referring Provider Dr. Tom Sorenson Attending Provider Fady HOLLAND, Dr. Alejo Primary Care Provider Unav camilo Shrestha MD, Dr. Alejo Attending Provider Unavail cassidy Shrestha MD, Dr. lAejo Referring Provider Unavail able Fady HOLLAND, Dr. Alejo Primary Care Provider Estefany Shrestha MD, Dr. Alejo Attending Provider Unavail cassidy Shrestha MD, Dr. Alejo Referring Provider Unavail able Dr. Se Schmidt DO Emergency Provider [phone] Fady HOLLAND, Dr. Alejo Primary Care Provider Juliannev camilo Shrestha MD, Dr. Alejo Attending Provider Unavail able Dr. Se Schmidt DO Attending Provider [phone] Shrestha OLS, Melo Primary Care Unavailable Shrestha OLS, Melo Attending Unavailable Simon, Joao Primary Care Unavailable Shrestha OLS, Melo Attending Unavailable Shrestha OLS, Melo Attending Unavailable Shrestha OLS, Melo Primary Care Unavailable Simon, Joao Primary Care Unavailable Shrestha OLS, Melo Attending Unavailable Shrestha OLS, Melo Attending Unavailable Shrestha OLS, Melo Primary Care Unavailable Simon, Joao Primary Care Unavailable Shrestha OLS, Melo Attending Unavailable Simon, Joao Primary Care Unavailable Shrestha OLS, Melo Attending Unavailable Shrestha OLS, Melo Attending Unavailable Shrestha OLS, Melo Primary Care Unavailable Shrestha OLS, Melo Referring Unavailable Shrestha OLS, Melo Attending Unavailable Shrestha OLS, Melo Primary Care Unavailable Shrestha OLS, Melo Primary Care Unavailable Serge Gómez Attending Unavailable Simon, Joao Primary Care Unavailable Shrestha OLS, Melo Attending Unavailable Shrestha OLS, Melo Attending Unavailable Simon, Joao Primary Care Unavailable Shrestha OLS, Melo Attending Unavailable Simon, Joao Primary Care Unavailable Shrestha OLS, Melo Attending Unavailable Shrestha OLS, Melo Referring Unavailable Shrestha OLS, Melo Primary Care Unavailable Shrestha OLS, Melo Attending Unavailable Shrestha OLS, Melo Referring Unavailable Shrestha OLS, Melo Primary Care Unavailable Shrestha OLS, Melo Attending Unavailable Shrestha OLS, Melo Referring Unavailable Shrestha OLS, Melo Primary Care Unavailable Shrestha OLS, Melo Attending Unavailable Shrestha OLS, Melo Primary Care Unavailable Shrestha OLS, Melo Attending Unavailable Shrestha OLS, Melo Primary Care Unavailable Shrestha OLS, Melo Attending Unavailable Shrestha OLS, Melo Primary Care Unavailable Shrestha OLS, Melo Attending Unavailable Shrestha OLS, Melo Primary Care Unavailable Shrestha OLS, Melo Primary Care Unavailable Se Schmidt Attending Unavailable Simon, Joao Primary Care Unavailable Shrestha OLS, Melo Attending Unavailable Simon, Joao Primary Care Unavailable Shrestha OLS, Melo Attending Unavailable Shrestha OLS, Melo Attending Unavailable Shrestha OLS, Melo Primary Care Unavailable Simon, Joao Primary Care Unavailable Shrestha OLS, Melo Attending Unavailable Shrestha OLS, Melo Attending Unavailable Shrestha OLS, Melo Primary Care Unavailable Shrestha OLS, Melo Attending Unavailable Shrestha OLS, Melo Primary Care Unavailable Shrestha OLS, Melo Attending Unavailable Shrestha OLS, Melo Primary Care Unavailable Shrestha OLS, Melo Attending Unavailable Shrestha OLS, Melo Primary Care Unavailable Shrestha OLS, Melo Attending Unavailable Shrestha OLS, Melo Primary Care Unavailable Shrestha OLS, Melo Attending Unavailable Simon, Joao Primary Care Unavailable Shrestha OLS, Melo Attending Unavailable Simon, Joao Primary Care Unavailable Shrestha OLS, Melo Attending Unavailable Simon, Joao Primary Care Unavailable Simon OLS, Joao Attending Unavailable Simon, Joao Primary Care Unavailable Shrestha OLS, Melo Attending Unavailable Shrestha OLS, Melo Primary Care Unavailable Shrestha OLS, Melo Attending Unavailable Shrestha OLS, Melo Primary Care Unavailable Shrestha OLS, Melo Attending Unavailable Shrestha OLS, Melo Primary Care Unavailable Shrestha OLS, Melo Attending Unavailable Shrestha OLS, Melo Primary Care Unavailable Shrestha OLS, Melo Attending Unavailable Shrestha OLS, Melo Primary Care Unavailable Allergies Allergy Classification Reported Allergen(s) Allergy Type Date of Onset Reaction(s) Facility (1 source) acetaminophen / HYDROcodone; Translations: [HYDROCODONE-ACET AMINOPHEN] Drug Allergy 2 AOF [facility] Repository (20 sources) codeine; Translations: [CODEINE] Drug Allergy 5 Nausea [facility] Repository (20 sources) ezetimibe; Translations: [EZETIMIBE] Drug Allergy 7 AOF, Itching [facility] Repository (1 source) Hmg-Coa Reductase Inhibitors (Statins); Translations: [LAROLNG-NXT-INC REDUCTASE INHIBITORS] Propensity to adverse reactions to drug (disorder) 6 AOF [facility] Repository (1 source) lovastatin; Translations: [LOVASTATIN] Drug Allergy 5 AOF [facility] Repository (20 sources) Penicillins; Translations: [PENICILLINS] Propensity to adverse reactions to drug (disorder) 5 Anaphylaxis [facility] Repository (20 sources) Acetaminophen Drug Allergy 2 Itching [facility] (20 sources) HYDROcodone; Translations: [hydrocodone bitartrate] Drug Allergy 2 Itching [facility] (20 sources) Clgdgay-Ztw-Vme Reductase Inhibitor; Translations: [Oonvtts-Vep-Owm Reductase Inhibitor] Propensity to adverse reactions 2 Other [facility] Comment on above: TOLERATES LIPITOR (2 sources) Memantine Drug Allergy 5 PT UNSURE OF REACTION [facility] (1 source) Acetaminophen Drug Allergy 4 [facility] Repository (1 source) Memantine Drug Allergy [facility] Repository Medications Current Medications Medication Drug Class(es) Dates Sig (Normalized) Sig (Original) acetaminophen 325 mg oral tablet (20 sources) Start: 06-16-2022 take 2 tablets by mouth every six hours as needed for pain Acetaminophen 325 mg Tablet Active 650 mg PO EVERY 6 HOURS as needed for Pain June 16, 2022 1:00am Start: 06-16-2022 take 650 mg by mouth every six hours Acetaminophen Active 650 MG PO EVERY 6 HOURS June 16, 2022 1:00am Albuterol Sulfate (20 sources) beta2-Adrenergic Agonist Start: 09-23-2021 take 1 puff(s) by inhalation every six hours Albuterol Sulfate (Ventolin Hfa) 90 mcg/actuation HFA aerosol inhaler Active 2 PUFF INHALATION EVERY 6 HOURS September 23, 2021 11:10am Start: 09-23-2021 Albuterol Sulf ate (Ventolin Hfa) 90 mcg/actuation HFA aerosol inhaler Active 2 NMA INHALATION EVERY 6 HOURS as needed for Wheezing September 23, 2021 12:00am Start: 09-23-2021 take 1 puff(s) by in halation every six hours Albuterol Sulfate (Ventolin Hfa) 90 mcg/actuation HFA aerosol inhaler Active 2 PUFF INHALATION EVERY 6 HOURS September 23, 2021 12:00am ALPRAZolam 0.5 mg oral tablet (20 sources) Benzodiazepine Start: 06-16-2022 take 1 tablet by mouth at bedtime Alprazolam 0.5 mg tablet Active 0.5 mg PO AT BEDTIME June 16, 2022 1:00am Start: 11-10-2021 take 1 tablet by gisella th at bedtime as needed for anxiety Alprazolam 0.25 mg Tablet Active 0.25 mg PO AT BEDTIME NEEDED as needed for Anxiety/Restlessness/Sleep 0 November 10, 2021 12:00am Start: 06-23-2021 End: 11-04-2021 take 0.5-1 mg by mouth twice daily as needed for anxiety Alprazolam 0.5 mg tablet Discontinued 0. 5 - 1 mg PO TWICE DAILY NEEDED as needed for Anxiety November 02, 2021 3:57pm November 04, 2021 3:03pm carbidopa 10 mg / levodopa 100 mg disintegrating oral tablet (20 sources) Aromatic Amino Acid Decarboxylation Inhibitor, Aromatic Amino Acid Start: 01-09-2023 Carbidopa-Levodopa 10-100 mg tablet,disintegrating Active 1 {tbl} PO THREE TIMES A DAY January 09, 2023 12:00am Start: 01-09-2023 take 1 tablet by gisella th three times daily Carbidopa-Levodopa Active 1 TABLET PO THREE TIMES A DAY January 09, 2023 12:00am hydroxychloroquine sulfate 200 mg oral tablet (20 sources) Antimalarial, Antirheumatic Agent Start: 11-02-2021 take 1 tablet by mouth twice daily Hydroxychloroquine 200 mg tablet Active 200 mg PO TWICE A DAY November 02, 2021 12:00am Start: 08-09-2020 take 200 mg by mouth twice daily Hydroxychloroquine Active 200 MG PO TWICE A DAY August 09, 2020 10:35am losartan potassium 100 mg oral tablet (20 sources) Angiotensin 2 Receptor Valente Start: 09-23-2021 take 1 tablet by mouth once daily Losartan 100 mg tablet Active 100 mg PO DAILY September 23, 2021 12:00am Start: 02-14-2019 End: 09-23-2021 take 1 tablet by mouth once daily Losartan 50 MG tablet Discontinued 50 mg PO DAILY February 14, 2019 12:00am September 23, 2021 11:12am metoprolol tartrate 100 mg oral tablet (20 sources) beta-Adrenergic Valente Start: 06-16-2022 take 1 tablet by mouth twice daily Metoprolol Tartrate 100 mg tablet Active 100 mg PO TWICE A DAY January 09, 2023 12:00am Start: 11-02-2021 take 100 mg by mouth twice daily Metoprolol Tartrate Active 100 MG PO TWICE A DAY November 01, 2021 11:00pm Start: 09-29-2021 take 100 mg by mouth twice daily Metoprolol Tartrate Active 100 MG PO TWICE A DAY September 29, 2021 2:35pm Start: 09-23-2021 End: 09-29-2021 take 2 tablets by mouth twice daily Metoprolol Tartrate 50 mg tablet Discontinued 100 mg PO TWICE A DAY September 23, 2021 12:00am September 29, 2021 2:35pm Start: 09-23-2021 End: 09-29-2021 take 100 mg by mouth twice daily Metoprolol Tartrate Discontinued 100 MG PO TWICE A DAY September 23, 2021 12:00am September 29, 2021 2:35pm Start: 07-31-2017 End: 09-23-2021 take 4 tablets by mouth twice daily Metoprolol Tartrate 25 MG tablet Discontinued 100 mg PO TWICE A DAY July 31, 2017 4:13pm September 23, 2021 11:08am Start: 07-31-2017 End: 09-23-2021 take 100 mg by mouth twice daily Metoprolol Tartrate Discontinued 100 MG PO TWICE A DAY July 31, 2017 4:13pm September 23, 2021 11:08am Start: 10-04-2016 End: 07-31-2017 take 1 tablet by mouth twice daily Metoprolol Tartrate 25 MG tablet Discontinued 25 mg PO TWICE A DAY October 04, 2016 12:00am July 31, 2017 4:13pm ondansetron 4 mg disintegrating oral tablet (20 sources) Serotonin-3 Receptor Antagonist Start: 02-02-2023 take 1 tablet by mouth every eight hours as needed for nausea Ondansetron 4 mg tablet,disintegrating Active 4 mg PO EVERY 8 HOURS NEEDED as needed for Nausea February 02, 2023 12:00am microencapsulated potassium chloride 20 meq extended release oral tablet (20 sources) Start: 11-10-2021 Potassium Chloride (Klor-Con M20) 20 mEq Tablet,Er Particles/Crystals Active 20 meq PO DAILY WITH MEALS November 10, 2021 12:00am traZODone hydrochloride 100 mg oral tablet (20 sources) Serotonin Reuptake Inhibitor Start: 09-23-2021 take 1 tablet by mouth at bedtime Trazodone 100 mg tablet Active 100 mg PO AT BEDTIME September 23, 2021 12:00am Start: 04-20-2013 End: 09-23-2021 take 2 tablets by mouth at bedtime Trazodone 50 MG tablet Discontinued 100 mg PO AT BEDTIME April 20, 2013 1:00am September 23, 2021 11:09am Start: 04-20-2013 End: 09-23-2021 take 100 mg by mouth at bedtime Trazodone Discontinued 100 MG PO AT BEDTIME April 20, 2013 1:00am September 23, 2021 11:09am 24 hr venlafaxine 150 mg extended release oral capsule (20 sources) Serotonin and Norepinephrine Reuptake Inhibitor Start: 11-02-2021 take 1 capsule by mouth every twenty-four hours at breakfast Venlafaxine 150 mg Capsule,Extended Release 24hr Active 150 mg PO WITH BREAKFAST November 02, 2021 12:00am Start: 02-14-2019 take 1 tablet by gisella th at bedtime Venlafaxine 75 MG tablet Active 75 mg PO AT BEDTIME February 14, 2019 12:00am Start: 10-01-2016 End: 01-07-2019 take 1 tablet by mouth once daily Venlafaxine 150 MG tablet extended release 24hr Discontinued 150 mg PO DAILY October 01, 2016 12:00am January 07, 2019 8:24am Start: 04-20-2013 End: 01-07-2019 take 1 tablet by mouth at bedtime Venlafaxine 75 MG tablet Discontinued 75 mg PO AT BEDTIME April 20, 2013 1:00am January 07, 2019 8:24am warfarin sodium 5 mg oral tablet (20 sources) Vitamin K Antagonist Start: 01-09-2023 Warfarin 6 mg tablet Active 6 mg PO .3XW January 09, 2023 12:00am take on tab PO on time a day three times weekly on Tu, Th and Sun in the evening Start: 06-16-2022 End: 01-09-2023 Warfarin 5 mg tablet Active 5 mg PO WITH DINNER January 09, 2023 10:34am 1 tb PO one time a day four times weekly on Mon, Wed, Fri, and Sat Evening. Start: 03-07-2022 Warfarin Activ e 3 MG PO WITH DINNER March 06, 2022 11:00pm for a total of 7mg give with 4mg tablet Start: 03-07-2022 Warfarin Activ e 4 MG PO WITH DINNER March 06, 2022 11:00pm take with 3mg tablet for total dose of 7mg Start: 11-10-2021 Warfarin ( oven) 1 mg Tablet Active 1 MG PO 1700 30 30 November 10, 2021 12:00am Start: 11-02-2021 End: 11-10-2021 take 1 tablet by mouth once daily Warfarin 2 mg Tablet Discontinued 2 mg PO DAILY November 02, 2021 12:00am November 10, 2021 9:10pm Start: 09-23-2021 take 1 mg by mouth once daily Warfarin Active 1 MG PO DAILY September 23, 2021 11:09am Start: 06-23-2021 End: 11-02-2021 take 1 tablet by mouth once daily Warfarin 5 MG tablet Discontinued 5 mg PO DAILY June 23, 2021 8:45pm November 02, 2021 3:21pm Start: 04-20-2013 End: 06-23-2021 take 4 mg by mouth once daily Warfarin 5 MG tablet Dis continued 4 mg PO DAILY April 20, 2013 1:00am June 23, 2021 8:45pm Start: 04-20-2013 End: 06-23-2021 take 4 mg by mouth once daily Warfarin Discontinued 4 MG PO DAILY April 20, 2013 1:00am June 23, 2021 8:45pm Completed/Discontinued Medications Medication Drug Class(es) Dates Sig (Normalized) Sig (Original) amLODIPine 5 mg oral tablet (20 sources) Dihydropyridine Calcium Channel Valente Start: 11-04-2021 End: 11-10-2021 take 1 tablet by mouth once daily Amlodipine 5 mg tablet Discontinued 5 mg PO DAILY November 04, 2021 6:41pm November 10, 2021 9:11pm Start: 10-01-2016 End: 10-04-2016 take 1 tablet by mouth once daily Amlodipine 5 MG tablet Discontinued 5 mg PO DAILY October 01, 2016 12:00am October 04, 2016 10:18am aspirin 81 mg oral tablet (20 sources) Platelet Aggregation Inhibitor, Nonsteroidal Anti-inflammatory Drug Start: 06-17-2022 End: 03-24-2024 take 1 capsule by mouth once daily Aspirin 81 mg capsule Discontinued 81 mg PO DAILY June 17, 2022 1:00am March 24, 2024 12:03pm Start: 09-23-2021 End: 09-29-2021 take 1 tablet by mouth once daily Aspirin (Adult Aspirin Regimen) 81 mg tablet,delayed release (DR/EC) Discontinued 81 mg PO DAILY September 23, 2021 12:00am September 29, 2021 2:36pm Start: 08-09-2020 End: 06-23-2021 take 1 tablet by mouth once daily Aspirin 81 MG tablet,delayed release (DR/EC) Discontinued 81 mg PO DAILY August 09, 2020 1:00am June 23, 2021 8:43pm Start: 04-20-2013 End: 05-17-2018 take 2 tablets by mouth once daily Aspirin 81 MG tablet,chewable Discontinued 162 mg PO DAILY@0800 April 20, 2013 1:00am May 17, 2018 8:22am Start: 04-20-2013 End: 05-17-2018 take 162 mg by mouth once daily Aspirin Discontinued 162 MG PO DAILY@0800 April 20, 2013 1:00am May 17, 2018 8:22am atorvastatin 40 mg oral tablet (20 sources) HMG-CoA Reductase Inhibitor Start: 10-01-2016 End: 03-24-2024 take 1 tablet by mouth at bedtime Atorvastatin 40 MG tablet Discontinued 40 mg PO AT BEDTIME October 01, 2016 12:00am March 24, 2024 12:00pm donepezil hydrochloride 5 mg oral tablet (20 sources) Start: 01-29-2023 End: 03-24-2024 take 1 tablet by mouth once daily at bedtime Donepezil 10 mg tablet Discontinued 10 mg PO AT BEDTIME January 29, 2023 12:00am March 24, 2024 12:03pm Begin after completing one month of treatment of donepezil 5mg nightly Start: 01-29-2023 End: 03-24-2024 take 1 tablet by mouth at bedtime Donepezil 5 mg tablet Discontinued 5 mg PO AT BEDTIME January 29, 2023 12:00am March 24, 2024 12:02pm 0.8 ml enoxaparin sodium 150 mg/ml prefilled syringe (20 sources) Low Molecular Weight Heparin Start: 07-31-2017 End: 05-17-2018 inject 120 mg by subcutaneous injection once daily Enoxaparin 120 MG/0.8 ML syringe Discontinued 120 mg SQ DAILY July 31, 2017 1:00am May 17, 2018 8:23am at 4pm ergocalciferol 1.25 mg oral capsule (20 sources) Provitamin D2 Compound Start: 04-20-2013 End: 05-17-2018 Ergocalciferol (Vitamin D2) 50,000 UNIT capsule Discontinued 24897 U PO Q7D April 20, 2013 1:00am May 17, 2018 8:23am 30 actuat fluticasone furoate 0.05 mg/actuat dry powder inhaler (20 sources) Corticosteroid Start: 09-23-2021 End: 09-29-2021 Fluticasone Furoate (Arnuity Ellipta) 50 mcg/actuation blister with device Discontinued INHALATION September 23, 2021 12:00am September 29, 2021 2:37pm Start: 06-23-2021 End: 09-23-2021 Fluticasone Propionate 50 mcg/actuation [place]isco[place],Suspension Discontinued 1 NMA NASAL TWICE A DAY 0 June 23, 2021 1:00am September 23, 2021 11:11am Start: 06-23-2021 End: 09-23-2021 Fluticasone Propionate Disco ntinued 1 SPRAY NASAL TWICE A DAY 0 June 23, 2021 1:00am September 23, 2021 11:11am Start: 02-14-2019 End: 06-23-2021 take 50 ug by inhalation once daily Fluticasone Furoate 50 MCG blister with device Discontinued 50 ug IH DAILY February 14, 2019 12:00am June 23, 2021 8:44pm furosemide 20 mg oral tablet (20 sources) Loop Diuretic Start: 11-04-2021 End: 11-10-2021 take 1 tablet by mouth once daily Furosemide 20 mg tablet Discontinued 20 mg PO DAILY November 04, 2021 6:41pm November 10, 2021 9:11pm Start: 04-20-2013 End: 09-29-2021 take 1 tablet by mouth once daily Furosemide 20 MG tablet Discontinued 20 mg PO DAILY April 20, 2013 1:00am September 29, 2021 3:26pm hydroCHLOROthiazide 25 mg oral tablet (20 sources) Thiazide Diuretic Start: 03-07-2022 End: 01-09-2023 take 1 tablet by mouth once daily Hydrochlorothiazide 25 mg tablet Discontinued 25 mg PO DAILY March 07, 2022 12:00am January 09, 2023 10:42am Start: 09-30-2021 End: 11-04-2021 take 1 tablet by mouth once daily Hydrochlorothiazide 25 mg tablet Discontinued 25 mg PO DAILY 90 September 30, 2021 12:00am November 04, 2021 3:03pm lisinopril 20 mg oral tablet (20 sources) Angiotensin Converting Enzyme Inhibitor Start: 10-04-2016 End: 07-31-2017 take 1 tablet by mouth once daily Lisinopril 20 MG tablet Discontinued 20 mg PO DAILY October 04, 2016 12:00am July 31, 2017 4:13pm Start: 10-01-2016 End: 10-04-2016 take 1 tablet by mouth twice daily Lisinopril 20 MG tablet Discontinued 20 mg PO TWICE A DAY October 01, 2016 12:00am October 04, 2016 10:18am Problems Active Problems Problem Classification Problem Date Documented Da te Episodic/Chronic Acute cerebrovascular disease (20 sources) Cerebrovascular accident; Translations: [Cerebral infarction, unspecified] 06-16-2022 Chronic Acute myocardial infarction (3 sources) Myocardial infarction; Translations: [Non-ST elevation (NSTEMI) myocardial infarction] Chronic Cancer of breast (20 sources) Malignant tumor of breast ; Translations: [Malignant neoplasm of unspecified site of right female breast] 09-23-2021 Chronic Comment on above: History of right sg ast cancer 20 years ago status post mastectomy, chemotherapy. Left breast cancer 3 and half years ago status post lumpectomy currently on anastrozole. (right s/p modified radical mastectomy followed by reconstruction with adjuvant chemo + XRT. Left s/p lumpectomy and sentinel node biopsy) Cardiac dysrhythmias (20 sources) Atrial fibrillation; Translations: [Unspecified atrial fibrillation] Onset: 10-01-2016 Chronic Comment on above: Status post cardiove rsion Congestive heart failure; nonhypertensive (20 sources) Heart failure with normal ejection fraction; Translations: [Unspecified diastolic (congestive) heart failure] Chronic Coronary atherosclerosis and other heart disease (20 sources) Coronary arteriosclerosis; Translations: [Atherosclerotic heart disease of circle coronary artery without angina pectoris] Chronic Delirium, dementia, and amnestic and other cognitive disorders (20 sources) Dementia; Translations: [Unspecified dementia without behavioral disturbance] 01-29-2023 Chronic Diabetes mellitus with complications (1 source) Type 2 diabetes mellitus with diabetic neuropathy, unspecified; Translations: [Type 2 diabetes mellitus with diabetic neuropathy, unspecified] Onset: 03-06-2017 Disorders of lipid metabolism (20 sources) Hyperlipidemia; Translations: [Hyperlipidemia, unspecified] Onset: 02-07-2024 Chronic E Codes: Fall (18 sources) Fall; Translations: [Unspecified fall, initial encounter] 04-01-2024 Episodic Essential hypertension (20 sources) Essential (primary) hypertension; Translations: [Hypertensive disorder] Onset: 03-06-2017 Chronic Heart valve disorders (20 sources) Aortic stenosis, non-rheumatic ; Translations: [Nonrheumatic aortic (valve) stenosis] 09-30-2021 Chronic Mood disorders (20 sources) Depressive disorder; Translations: [Depression] Chronic Nausea and vomiting (20 sources) Nausea and vomiting; Translations: [Nausea with vomiting, unspecified] 02-02-2023 Episodic Nutritional deficiencies (1 source) Vitamin D deficiency, unspecified; Translations: [Vitamin D deficiency, unspecified] Onset: 03-06-2017 Chronic Other aftercare (20 sources) Anticoagulant control - finding; Translations: [Encounter for therapeutic drug level monitoring] 04-13-2019 Episodic Other aftercare (20 sources) Long-term current use of anticoagulant; Translations: [residential (current) use of anticoagulants] 09-23-2021 Episodic Other aftercare (2 sources) residential (current) use of anticoagulants; Translations: [residential (current) use of anticoagulants] Onset: 08-09-2024 Episodic Other circulatory disease (3 sources) Low blood pressure; Translations: [Hypotension, unspecified] Episodic Other circulatory disease (20 sources) H/O: hypertension; Translations: [Personal history of other diseases of the circulatory system] 06-16-2022 Episodic Other circulatory disease (20 sources) H/O: atrial fibrillation; Translations: [Personal history of other diseases of the circulatory system] 06-16-2022 Episodic Other circulatory disease (16 sources) Personal history of other diseases of the circulatory system; Translations: [Personal history of other diseases of circulatory system] 06-16-2022 Episodic Other circulatory disease (20 sources) History of cerebrovascular accident; Translations: [Personal history of transient ischemic attack (TIA), and cerebral infarction without residual deficits] 01-29-2023 Episodic Other circulatory disease (5 sources) Personal history of transient ischemic attack (TIA), and cerebral infarction without residual deficits; Translations: [Personal history of transient ischemic attack (TIA), and cerebral infarction without residual deficits] 01-09-2023 Episodic Other connective tissue disease (20 sources) Rotator cuff arthropathy of left shoulder; Translations: [Unspecified rotator cuff tear or rupture of left shoulder, not specified as traumatic] 09-23-2021 Episodic Other connective tissue disease (5 sources) Unspecified rotator cuff tear or rupture of left shoulder, not specified as traumatic; Translations: [Other specified arthropathy, shoulder region] Episodic Other connective tissue disease (6 sources) Recurrent falls ; Translations: [Repeated falls] Episodic Other connective tissue disease (2 sources) Repeated falls; Translations: [History of fall] Episodic Other connective tissue disease (20 sources) Muscle weakness of upper limb; Translations: [Other symptoms and signs involving the musculoskeletal system] 06-16-2022 Episodic Other connective tissue disease (7 sources) Other symptoms and signs involving the musculoskeletal system; Translations: [Other musculoskeletal symptoms referable to limbs] 06-17-2022 Episodic Other gastrointestinal disorders (3 sources) Diarrhea; Translations: [Diarrhea, unspecified] Episodic Other injuries and conditions due to external causes (2 sources) Closed injury of head; Translations: [Unspecified injury of head, initial encounter] 10-09-2024 Episodic Other injuries and conditions due to external causes (1 source) Unspecified injury of head, initial encounter; Translations: [Unspecified injury of head, initial encounter] Onset: 10-15-2024 Episodic Other lower respiratory disease (3 sources) Dyspnea; Translations: [Shortness of breath] Episodic Other lower respiratory disease (20 sources) Restrictive lung disease; Translations: [Other disorders of lung] 11-04-2021 Episodic Other lower respiratory disease (20 sources) Dyspnea on exertion; Translations: [Dyspnea, unspecified] 09-29-2021 Episodic Other lower respiratory disease (8 sources) Dyspnea, unspecified; Translations: [Other respiratory abnormalities] Episodic Other lower respiratory disease (5 sources) Other disorders of lung; Translations: [Other diseases of lung, not elsewhere classified] Episodic Other lower respiratory disease (1 source) Other forms of dyspnea; Translations: [Other respiratory abnormalities] Episodic Other nervous system disorders (20 sources) Metabolic encephalopathy; Translations: [Metabolic encephalopathy] 11-12-2021 Chronic Other nervous system disorders (14 sources) Metabolic encephalopathy; Translations: [Metabolic encephalopathy] Onset: 04-26-2024 Chronic Other nervous system disorders (20 sources) Polyneuropathy; Translations: [Polyneuropathy, unspecified] 01-29-2023 Chronic Other nervous system disorders (5 sources) Polyneuropathy, unspecified; Translations: [Unspecified hereditary and idiopathic peripheral neuropathy] 01-09-2023 Chronic Other nervous system disorders (20 sources) Paresthesia; Translations: [Paresthesia of skin] 04-13-2019 Episodic Other nervous system disorders (20 sources) Numbness of face; Translations: [Anesthesia of skin] 04-13-2019 Episodic Other nervous system disorders (6 sources) Poor balance; Translations: [Other abnormalities of gait and mobility] Episodic Other nervous system disorders (2 sources) Other abnormalities of gait and mobility; Translations: [Other symptoms involving nervous and musculoskeletal systems] Episodic Other nervous system disorders (20 sources) H/O: brain disorder; Translations: [Personal history of other diseases of the nervous system and sense organs] 06-16-2022 Episodic Other nervous system disorders (8 sources) Personal history of other diseases of the nervous system and sense organs; Translations: [Personal history of other disorders of nervous system and sense organs] 06-16-2022 Episodic Other nervous system disorders (20 sources) Abnormal gait; Translations: [Unspecified abnormalities of gait and mobility] 01-29-2023 Episodic Other nervous system disorders (5 sources) Unspecified abnormalities of gait and mobility; Translations: [Abnormality of gait] 01-09-2023 Episodic Other non-traumatic joint disorders (20 sources) Hip pain; Translations: [Pain in left hip] 09-23-2021 Episodic Other non-traumatic joint disorders (5 sources) Pain in left hip; Translations: [Pain in joint, pelvic region and thigh] Episodic Other nutritional; endocrine; and metabolic disorders (20 sources) Obesity; Translations: [Obesity, unspecified] 01-07-2019 Chronic Other upper respiratory disease (20 sources) Allergic rhinitis; Translations: [Allergic rhinitis, unspecified] 09-23-2021 Chronic Other upper respiratory disease (5 sources) Allergic rhinitis, unspecified; Translations: [Allergic rhinitis, cause unspecified] Chronic Other upper respiratory disease (20 sources) Bleeding from nose; Translations: [Epistaxis] 04-12-2019 Episodic Other upper respiratory disease (20 sources) Anterior epistaxis; Translations: [Epistaxis] 09-07-2019 Episodic Other upper respiratory infections (20 sources) Upper respiratory infection; Translations: [Acute upper respiratory infection, unspecified] 03-15-2022 Episodic Parkinson`s disease (20 sources) Parkinsonism; Translations: [Parkinson's disease] 09-23-2021 Chronic Phlebitis; thrombophlebitis and thromboembolism (20 sources) Recurrent deep vein thrombosis; Translations: [Acute embolism and thrombosis of unspecified deep veins of unspecified lower extremity] 09-23-2021 Episodic Residual codes; unclassified (1 source) Restlessness and agitation; Translations: [Restlessness and agitation] Onset: 08-02-2024 Chronic Residual codes; unclassified (20 sources) Insomnia; Translations: [Insomnia, unspecified] 11-04-2021 Episodic Residual codes; unclassified (3 sources) H/O cardiac surgery; Translations: [Other specified postprocedural states] Episodic Residual codes; unclassified (1 source) Swelling - edema - symptom; Translations: [Edema, unspecified] Episodic Residual codes; unclassified (8 sources) Edema, unspecified; Translations: [Edema] Episodic Residual codes; unclassified (10 sources) Insomnia, unspecified; Translations: [Insomnia, unspecified] Episodic Residual codes; unclassified (20 sources) Edema; Translations: [Edema, unspecified] 11-04-2021 Episodic Residual codes; unclassified (2 sources) Amnesia; Translations: [Other amnesia] Episodic Residual codes; unclassified (2 sources) Other amnesia; Translations: [Memory loss] Episodic Residual codes; unclassified (20 sources) Confusional state; Translations: [Disorientation, unspecified] 03-15-2022 Episodic Substance-related disorders (20 sources) Nicotine dependence, unspecified, in remission; Translations: [Nicotine dependence in remission] 09-23-2021 Chronic Superficial injury; contusion (2 sources) Contusion of face; Translations: [Contusion of other part of head, initial encounter] 10-09-2024 Episodic Transient cerebral ischemia (20 sources) Cerebral ischemia; Translations: [Transient cerebral ischemic attack, unspecified] 08-01-2017 Chronic Unclassified (1 source) Unknown / UNK(Unknown) Onset: 01-04-2017 Past or Other Problems Problem Classification Problem Date Documented Da te Episodic/Chronic Coronary atherosclerosis and other heart disease (9 sources) Presence of aortocoronary bypass graft; Translations: [Aortocoronary bypass status] Onset: 04-02-2013 Episodic Deficiency and other anemia (1 source) Anemia, unspecified; Translations: [Anemia, unspecified] Onset: 04-26-2024 Episodic Fluid and electrolyte disorders (20 sources) Acute hyponatremia; Translations: [Hypo-osmolality and hyponatremia] Onset: 04-26-2024 Episodic Malaise and fatigue (20 sources) Asthenia; Translations: [Other malaise] Onset: 04-26-2024 Episodic Other aftercare (3 sources) Other 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 therapy; Translations: [Other assisted (current) drug therapy] Onset: 03-06-2017 Episodic Other non-traumatic joint disorders (1 source) Pain in right hip; Translations: [Pain in right hip] Onset: 04-14-2024 Episodic Other screening for suspected conditions (not mental disorders or infectious disease) (20 sources) Deviation of international normalized ratio from target range; Translations: [Abnormal coagulation profile] Onset: 04-26-2024 08-01-2017 Episodic Results Test Name Value Interpretation Reference Range Facility International normalized rat io (INR) calculationOrdered By: Melo Shrestha on 10-22-2024 INR Coag (Bld) [Relative time] 2.3 {INR} [facility] Prothrombin timeOrdered By: Melo Shrestha on 10-22-2024 PT Coag (PPP) [Time] 26.0 s High 11.7-14.9 [facility] Absolute lymphocyte countOrd ered By: Se Schmidt on 10-09-2024 Lymphocytes Auto (Unsp spec) [#/Vol] 1.87 10*3/uL 0.83-4.51 [facility] Absolute neutrophil countOrd ered By: Se Schmidt on 10-09-2024 Neutrophils (Bld) [#/Vol] 2.9 10*3/uL 2.0-7.7 [facility] Activated partial thrombopla stin time (aPTT) in platelet poor plasma by coagulation aOrdered By: Se Schmidt on 10-09-2024 aPTT Coag (PPP) [Time] 32.4 s 24.1-36.2 [facility] Anion gap in Serum or Plasma Ordered By: Se Schmidt on 10-09-2024 Anion gap [Moles/Vol] 7 mmol/L 5-15 [facility] Automated lymphocyte count a s percentage of total leukocytesOrdered By: Se Schmidt on 10-09-2024 Lymphocytes/100 WBC Auto (Unsp spec) 33.8 % 19-41 [facility] BUN/creatinine ratioOrdered By: Se Schmidt on 10-09-2024 Urea nitrogen/Creatinine [Mass ratio] 20.6 mg/mg High - [facility] Basic Metabolic Profile (BMP )on 10-09-2024 BUN/CRE 20.6 RATIO High - [facility] Comment on above: Performed By: #### L 500.2500, L100.0100, L300.4310, L300.3900 #### [facility] [address] [place], [address] Calcium [Mass/Vol] 8.8 mg/dL Normal 7.6-11.0 [facility] Comment on above: Performed By: #### L 500.2500, L100.0100, L300.4310, L300.3900 #### [facility] [address] [place], [address] Chloride [Moles/Vol] 99 mmol/L Normal 98-108 [facility] Comment on above: Performed By: #### L 500.2500, L100.0100, L300.4310, L300.3900 #### [facility] [address] [place], [address] CO2 [Moles/Vol] 28.1 mmol/L Normal 21.0-32.0 [facility] Comment on above: Performed By: #### L 500.2500, L100.0100, L300.4310, L300.3900 #### [facility] [address] [place], [address] Creatinine [Mass/Vol] 0.66 mg/dL Low 0.70-1.20 [facility] Comment on above: Performed By: #### L 500.2500, L100.0100, L300.4310, L300.3900 #### [facility] [address] [place], [address] ECRCL 43.20 ml/min Low 50-250 [facility] Comment on above: Performed By: #### L 500.2500, L100.0100, L300.4310, L300.3900 #### [facility] [address] [place], [address] GAP 7 Normal 5-15 [facility] Comment on above: Performed By: #### L 500.2500, L100.0100, L300.4310, L300.3900 #### [facility] [address] [place], [address] GFR/1.73 sq M.predicted among non-blacks MDRD (S/P/Bld) [Vol rate/Area] 85 mL/min/{1.73_m2} Normal >60 [facility] Comment on above: Result Comment: mL/m in/1.73m2 CKD-EPI Creatinine Equation (2020) Performed By: #### L 500.2500, L100.0100, L300.4310, L300.3900 #### [facility] [address] [place], [address] Glucose [Mass/Vol] 131 mg/dL High 70-99 [facility] Comment on above: Performed By: #### L 500.2500, L100.0100, L300.4310, L300.3900 #### [facility] [address] [place], [address] Potassium [Moles/Vol] 4.3 mmol/L Normal 3.3-5.1 [facility] Comment on above: Performed By: #### L 500.2500, L100.0100, L300.4310, L300.3900 #### [facility] [address] [place], [address] Sodium [Moles/Vol] 134 mmol/L Normal 133-145 [facility] Comment on above: Performed By: #### L 500.2500, L100.0100, L300.4310, L300.3900 #### [facility] [address] [place], [address] Urea nitrogen [Mass/Vol] 14 mg/dL Normal 4-19 [facility] Comment on above: Performed By: #### L 500.2500, L100.0100, L300.4310, L300.3900 #### [facility] [address] [place], [address] Basophil percentageOrdered B y: Se Schmidt on 10-09-2024 Basophils/100 WBC (Bld) 0.7 % 0-1 [facility] Brain/Head without Contrasto n 10-09-2024 Brain/Head without Contrast [facility] Services [address] [place] [address] Brain/Head without Contrast MR#: [id number] Acct: [id number] Name: COLETTE RICHARDSON Rep #: [id number] : 1935 F 89 From: Gonzalo Schmidt MD PCP: Dr. Melo Shrestha MD Status: REG ER Study: Brain/Head without Contrast Date of Exam: 09/26 09/20 Exam# [id number] Ordering Dr: Se Schmidt DO EXAM: CT Head Without Intravenous Contrast CLINICAL INDICATION: HEAD INJURY TECHNIQUE: Axial computed tomography images of the head/brain without intravenous contrast. This CT exam was performed using one or more of the following dose reduction techniques: automated exposure control, adjustment of the mA and/or kV according to patient size, and/or use of iterative reconstruction technique. COMPARISON: No relevant prior studies available. FINDINGS: BRAIN AND EXTRA-AXIAL SPACES: Areas of decreased attenuation in the deep cerebral white matter are consistent with small vessel ischemic/degenerative changes. The cerebral and cerebellar sulci are prominent consistent with brain atrophy. No acute intracranial hemorrhage, midline shift or mass effect. If symptoms persist, further evaluation with MRI is recommended. BONES/JOINTS: Unremarkable. No acute fracture. SOFT TISSUES: Unremarkable. SINUSES: Unremarkable as visualized. No acute sinusitis. MASTOID AIR CELLS: Unremarkable as visualized. No mastoid effusion. CT/Brain/Head without Contrast IMPRESSION: 1. Small vessel ischemic/degenerative changes. 2. Generalized brain atrophy. 3. No acute intracranial hemorrhage, midline shift or mass effect. If symptoms persist, further evaluation with MRI is recommended. Reading Location: [facility] CC: Dr. Melo Shrestha MD; Dr. Se Schmidt, Collar Worker: Signed Normal [facility] CBC W/Diff, Automatedon 09-26 Absolute Lymph 1.87 X10 3/uL Normal 0.83-4.51 [facility] Comment on above: Performed By: #### L 500.2500, L100.0100, L300.4310, L300.3900 #### [facility] [address] [place], [address] Absolute Neut 2.9 X10 3/uL Normal 2.0-7.7 [facility] Comment on above: Performed By: #### L 500.2500, L100.0100, L300.4310, L300.3900 #### [facility] [address] [place], [address] Basophils/100 WBC (Bld) 0.7 % Normal 0-1 [facility] Comment on above: Performed By: #### L 500.2500, L100.0100, L300.4310, L300.3900 #### [facility] [address] [place], [address] Eosinophils/100 WBC (Bld) 4.2 % Normal 0-5 [facility] Comment on above: Performed By: #### L 500.2500, L100.0100, L300.4310, L300.3900 #### [facility] [address] [place], [address] Erythrocyte distribution width (RBC) [Ratio] 12.3 % Normal 11.6-14.6 [facility] Comment on above: Performed By: #### L 500.2500, L100.0100, L300.4310, L300.3900 #### [facility] [address] [place], [address] Hematocrit (Bld) [Volume fraction] 38.7 % Normal 37-47 [facility] Comment on above: Performed By: #### L 500.2500, L100.0100, L300.4310, L300.3900 #### [facility] [address] [place], [address] Hemoglobin (Bld) [Mass/Vol] 13.1 g/dL Normal 12.0-15.0 [facility] Comment on above: Performed By: #### L 500.2500, L100.0100, L300.4310, L300.3900 #### [facility] [address] [place], [address] IG% 0.200 Normal 0.0-0.9 [facility] Comment on above: Result Comment: IG% - Immature Granulocytes (promyelocytes, myelocytes and metamyelocytes) > 1% indicates that a LEFT SHIFT is Present. Performed By: #### L 500.2500, L100.0100, L300.4310, L300.3900 #### [facility] [address] [place], [address] Lymphocytes/100 WBC (Bld) 33.8 % Normal 19-41 [facility] Comment on above: Performed By: #### L 500.2500, L100.0100, L300.4310, L300.3900 #### [facility] [address] [place], [address] MCH (RBC) [Entitic mass] 31.3 pg Normal 27.0-32.0 [facility] Comment on above: Performed By: #### L 500.2500, L100.0100, L300.4310, L300.3900 #### [facility] [address] [place], [address] MCHC (RBC) [Mass/Vol] 33.9 g/dL Normal 32-36 [facility] Comment on above: Performed By: #### L 500.2500, L100.0100, L300.4310, L300.3900 #### [facility] [address] [place], [address] MCV (RBC) [Entitic vol] 92.6 fL Normal 81-99 [facility] Comment on above: Performed By: #### L 500.2500, L100.0100, L300.4310, L300.3900 #### [facility] [address] [place], [address] Monocytes/100 WBC (Bld) 8.5 % Normal 0-10 [facility] Comment on above: Performed By: #### L 500.2500, L100.0100, L300.4310, L300.3900 #### [facility] [address] [place], [address] Neutrophils/100 WBC (Bld) 52.6 % Normal 47-70 [facility] Comment on above: Performed By: #### L 500.2500, L100.0100, L300.4310, L300.3900 #### [facility] [address] [place], [address] Nucleated RBC (Bld) [#/Vol] 0 10*3/uL Normal 0-5 [facility] Comment on above: Performed By: #### L 500.2500, L100.0100, L300.4310, L300.3900 #### [facility] [address] [place], [address] Platelet mean volume (Bld) [Entitic vol] 10.3 fL Normal 6.2-12.0 [facility] Comment on above: Performed By: #### L 500.2500, L100.0100, L300.4310, L300.3900 #### [facility] [address] [place], [address] Platelets (Bld) [#/Vol] 196 10*3/uL Normal 150-450 [facility] Comment on above: Performed By: #### L 500.2500, L100.0100, L300.4310, L300.3900 #### [facility] [address] [place], [address] RBC (Bld) [#/Vol] 4.18 10*6/uL Low 4.2-5.4 [facility] Comment on above: Performed By: #### L 500.2500, L100.0100, L300.4310, L300.3900 #### [facility] [address] [place], [address] RDW SD 42.1 fl Normal 35.1-43.9 [facility] Comment on above: Performed By: #### L 500.2500, L100.0100, L300.4310, L300.3900 #### [facility] [address] [place], [address] WBC (Bld) [#/Vol] 5.5 10*3/uL Normal 4.4-11.0 [facility] Comment on above: Performed By: #### L 500.2500, L100.0100, L300.4310, L300.3900 #### [facility] [address] [place], [address] Carbon dioxide, total [Moles /volume] in Central venous bloodOrdered By: Se Schmidt on 10-09-2024 CO2 [Moles/Vol] 28.1 mmol/L 21.0-32.0 [facility] Chloride assayOrdered By: Cedric Schmidt on 10-09-2024 Chloride [Moles/Vol] 99 mmol/L 98-108 [facility] Emergency Department Summary on 10-09-2024 Emergency Department Summary [facility] Medical Records Department [address] [place] [address] Emergency Department Summary 10/09/24 MR#: [id number] Acct: [id number] Name: COLETTE RICHARDSON Rep #: [id number] : 1935 89 From: Se Lu PCP: Dr. Melo Shrestha MD Status:DEP ER Location: ED HPI HPI - Fall History of Present Illness Chief Complaint: Head Injury Informant: patient and family Narrative Narrative: Brought from [facility] living by EMS daughter present for the kitchen. She history of Parkinson's and was a walker states get 100 feet her cat when somehow she went down. She bumped her head on the floor she did not lose consciousness. He is on warfarin history of paroxysmal A-fib along with blood clots in the past. Denies chest pains abdominal pain back pain denies extremity pains. States discomfort to the left forehead and mild discomfort to left wrist. PFSH PFS Medical History History of Parkinson's disease Memory loss Nonrheumatic aortic (valve) stenosis Poor balance Frequent falls watermaster current use of anticoagulant Rheumatoid arthritis Parkinsonian syndrome History of pulmonary embolus (PE) Postoperative atrial fibrillation (04/04/13) Recurrent deep vein thrombosis (DVT) Hypercoagulable state History of non-ST elevation myocardial infarction (NSTEMI) (10/01/16) Atherosclerotic heart disease of circle coronary artery without angina pectoris Paroxysmal atrial fibrillation Essential hypertension Restrictive airway disease Atrial fibrillation with RVR (10/01/16) Bilateral breast cancer Depression Home Medications ???Medication ???Instructions ???Recorded ???Last Taken ???Type venlafaxine 75 mg tablet 75 mg PO QHS DEPRESSION 02/14/19 0 06/15/22 20:45 History albuterol sulfate 90 mcg/actuation 2 puff inhalation Q6H PRN Wheezi ng 09/23/21 Unknown History aerosol inhaler (Ventolin HFA) losartan 100 mg tablet 100 mg PO DAILY BP 09/23/21 09:15 History trazodone 100 mg tablet 100 mg PO QHS Sleep 09/23/2106/15 20:45 History hydroxychloroquine 200 mg tablet 200 mg PO BID RA 11/02/21 06/16/22 09:15 History venlafaxine 150 mg 150 mg PO BREAKFAST DEPRESSION 12/1706/16/22 09:15 History capsule,extended release 24 hr alprazolam 0.25 mg tablet 0.25 mg PO QHS PRN PRN 11/10/21 11:30 Rx Anxiety/Restlessness/Sleep #0 tabs potassium chloride 20 mEq 20 meq PO DAILYCM 30 days #30 tabs 11/10/21 06/16/22 09:15 Rx tablet,extended release(part/cryst) (Klor-Con M) acetaminophen 325 mg tablet 650 mg PO Q6H PRN Pain 06/16/22 20:00 History alprazolam 0.5 mg tablet 0.5 mg PO QHS DEPRESSION 06/16/22 06/15/22 20:45 History metoprolol tartrate 100 mg tablet 100 mg PO BID HTN 06/16/22 09:15 History carbidopa 10 mg-levodopa 100 mg 1 tab PO TID 01/09/23 Unknown Hist ory disintegrating tablet metoprolol tartrate 100 mg tablet 100 mg PO BID 01/09/23 Unknown Hi story warfarin 5 mg tablet 5 mg PO DINNER AFIB 01/09/23 Unkno wn History warfarin 6 mg tablet 6 mg PO .3XW 01/09/23 Unknown Hist ory ondansetron 4 mg disintegrating 4 mg PO Q8H PRN PRN Nausea #10 tab s 02/02/23 Unknown Rx tablet Allergy/AdvReac Type Severity Reaction Status Date / Time memantine Allergy PT UNSURE Verified 10/09/24 19:02 OF REACTION Penicillins Allergy Anaphylaxis Verified 10/09/24 19:02 acetaminophen (From Vicodin) AdvReac Itching Verified 03/24/24 11:05 codeine AdvReac Nausea Verified 10/09/24 19:02 ezetimibe (From Zetia) AdvReac Itching Verified 10/09/24 19:02 hydrocodone bitartrate (From AdvReac Itching Verified 10/09/24 19:02 Vicodin) Szwbamn-RDI-RsJ Reductase AdvReac Other Verified 10/09/24 19:02 Inhibitor (Yxucnoq-Yse-Bon Reductase Inhibitor) Surgical History History of coronary artery stent placement (12/2003) History of left heart catheterization (10/13/15) History of cardioversion (10/01/16) 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) History of appendectomy Social History household members: none Smoking Status: Former smoker how long ago did patient quit smokin, 1ppd second hand exposure: Yes alcohol intake: never substance use type: does not use ROS ROS ED Constitutional Constitutional ED: Denies chills, fever(s) or sweats ENT ENT ED: Denies sore throat Cardiovascular Cardiovascular: Denies chest pain, leg edema, palpitations or racing heartbeat Respiratory/Chest Respiratory/Chest: Denies cough, dyspnea or dyspnea on exertion Gastrointestinal Gastrointestinal: Denies abdominal pain, diarrhea, nausea or vomiting Genitourinary Genitourinary ED: Denies dysuria, hematur (more content not included)... Normal [facility] Eosinophil percentageOrdered By: Se Schmidt on 10-09-2024 Eosinophils/100 WBC (Bld) 4.2 % 0-5 [facility] Erythrocyte distribution wid th ratioOrdered By: Se Schmidt on 10-09-2024 Erythrocyte distribution width (RBC) [Ratio] 12.3 % 11.6-14.6 [facility] Erythrocyte distribution wid th standard deviationOrdered By: Se Schmidt on 10-09-2024 Erythrocyte distribution width (RBC) [Ratio] 42.1 fl 35.1-43.9 [facility] Glomerular filtration rate ( GFR) estimation/1.73 sq m using serum, plasma, or whole bOrdered By: Se Schmidt on 10-09-2024 GFR/1.73 sq M.predicted among non-blacks MDRD (S/P/Bld) [Vol rate/Area] 85 mL/min/{1.73_m2} >60 [facility] Comment on above: mL/min/1.73m2 CKD-EP I Creatinine Equation (2020) Hematocrit Auto (Bld) [Volum e fraction]Ordered By: Se Schmidt on 10-09-2024 Hematocrit (Bld) [Volume fraction] 38.7 % 37-47 [facility] Hemoglobin measurementOrdere d By: Se Schmidt on 10-09-2024 Hemoglobin (Bld) [Mass/Vol] 13.1 g/dL 12.0-15.0 [facility] Immature granulocytes/100 WB C Auto (Bld)Ordered By: Se Schmidt on 10-09-2024 Immature granulocytes/100 WBC (Bld) 0.200 % 0.0-0.9 [facility] Comment on above: IG% - Immature Granu locytes (promyelocytes, myelocytes and metamyelocytes) > 1% indicates that a LEFT SHIFT is Present. International normalized rat io (INR) calculationOrdered By: Se Schmidt on 10-09-2024 INR Coag (Bld) [Relative time] 2.4 {INR} [facility] MCV (mean corpuscular volume ) determinationOrdered By: Se Schmidt on 10-09-2024 MCV (RBC) [Entitic vol] 92.6 fL 81-99 [facility] Mean corpuscular hemoglobin (MCH) determinationOrdered By: Se Schmidt on 10-09-2024 MCH (RBC) [Entitic mass] 31.3 pg 27.0-32.0 [facility] Mean corpuscular hemoglobin concentration (MCHC) determinationOrdered By: Se Schmidt on 10-09-2024 MCHC (RBC) [Mass/Vol] 33.9 g/dL 32-36 [facility] Mean platelet volume determi nationOrdered By: Se Schmidt on 10-09-2024 Platelet mean volume (Bld) [Entitic vol] 10.3 fL 6.2-12.0 [facility] Monocyte percentageOrdered B y: Se Schmidt on 10-09-2024 Monocytes/100 WBC (Bld) 8.5 % 0-10 [facility] Neutrophil percentageOrdered By: Se Schmidt on 10-09-2024 Neutrophils/100 WBC (Bld) 52.6 % 47-70 [facility] Nucleated red blood cell per centageOrdered By: Se Schmidt on 10-09-2024 Nucleated RBC/100 WBC (Bld) [Ratio] 0 % 0-5 [facility] Partial Thromboplast Timeon 10-09-2024 aPTT Coag (Bld) [Time] 32.4 s Normal 24.1-36.2 [facility] Comment on above: Performed By: #### L 500.2500, L100.0100, L300.4310, L300.3900 #### [facility] [address] [place], [address] Platelet countOrdered By: Cedric Schmidt on 10-09-2024 Platelets (Bld) [#/Vol] 196 10*3/uL 150-450 [facility] Potassium measurement (mass/ volume)Ordered By: Se Schmidt on 10-09-2024 Potassium (Unsp spec) [Mass/Vol] 4.3 mmol/L 3.3-5.1 [facility] Prothrombin Time w/INRon INR Coag (PPP) [Relative time] 2.4 {INR} Normal [facility] Comment on above: Performed By: #### L 500.2500, L100.0100, L300.4310, L300.3900 #### [facility] [address] [place], [address] PT Coag (PPP) [Time] 26.6 s High 11.7-14.9 [facility] Comment on above: Performed By: #### L 500.2500, L100.0100, L300.4310, L300.3900 #### [facility] [address] [place], [address] Prothrombin timeOrdered By: Se Schmidt on 10-09-2024 PT Coag (PPP) [Time] 26.6 s High 11.7-14.9 [facility] RBC Auto (Bld) [#/Vol]Ordere d By: Se Schmidt on 10-09-2024 RBC (Bld) [#/Vol] 4.18 10*6/uL Low 4.2-5.4 [facility] Serum creatinine measurement (mass/volume)Ordered By: Se Schmidt on 10-09-2024 Creatinine [Mass/Vol] 0.66 mg/dL Low 0.70-1.20 [facility] Serum glucose measurement (m ass/volume)Ordered By: Se Schmidt on 10-09-2024 Glucose [Mass/Vol] 131 mg/dL High 70-99 [facility] Serum or plasma calcium josué urement (mass/volume)Ordered By: Se Schmidt on 10-09-2024 Calcium [Mass/Vol] 8.8 mg/dL 7.6-11.0 [facility] Serum or plasma urea nitroge n measurement (mass/volume)Ordered By: Se Schmidt on 10-09-2024 Urea nitrogen [Mass/Vol] 14 mg/dL 4-19 [facility] Sodium levelOrdered By: Se Schmidt on 10-09-2024 Sodium [Moles/Vol] 134 mmol/L 133-145 [facility] Spine Cervical without Contr ason 10-09-2024 Spine Cervical without Contras [facility] [address] [place], [place] [address] Spine Cervical without Contras MR#: [id number] Acct: [id number] Name: COLETTE RICHARDSON Rep #: [id number] : 1935 F 89 From: Gonzalo Schmidt MD PCP: Dr. Melo Shrestha MD Status: REG ER Study: Spine Cervical without Contras Date of Exam: 0 10/09/24 Exam# [id number] Ordering Dr: Se Schmidt DO EXAM: CT Cervical Spine Without Intravenous Contrast CLINICAL INDICATION: INJURY TECHNIQUE: Axial computed tomography images of the cervical spine without intravenous contrast. This CT exam was performed using one or more of the following dose reduction techniques: automated exposure control, adjustment of the mA and/or kV according to patient size, and/or use of iterative reconstruction technique. COMPARISON: No relevant prior studies available. FINDINGS: VERTEBRAE: Mild reversal cervical spine lordosis. 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 No acute fracture. DISCS/SPINAL CANAL/NEURAL FORAMINA: Degenerative disc disease lower cervical spine. SOFT TISSUES: Unremarkable. CT/Spine Cervical without Contras IMPRESSION: 1. No acute fracture. 2. Degenerative changes cervical spine as described. Reading Location: [facility] CC: Dr. Melo Shrestha MD; Dr. Se Schmidt DO Collar Worker: Signed Normal [facility] White blood cell (WBC) count Ordered By: Se Schmidt on 10-09-2024 WBC (Bld) [#/Vol] 5.5 10*3/uL 4.4-11.0 [facility] International normalized rat io (INR) calculationOrdered By: Melo Shrestha on 09-09-2024 INR Coag (Bld) [Relative time] 2.5 {INR} [facility] Prothrombin timeOrdered By: Melo Shrestha on 09-09-2024 PT Coag (PPP) [Time] 27.6 s High 11.7-14.9 [facility] International normalized rat io (INR) calculationOrdered By: Melo Shrestha on 08-12-2024 INR Coag (Bld) [Relative time] 2.5 {INR} [facility] Prothrombin timeOrdered By: Melo Shrestha on 08-12-2024 PT Coag (PPP) [Time] 27.8 s High 11.7-14.9 [facility] International normalized rat io (INR) calculationOrdered By: Melo Shrestha on 07-29-2024 INR Coag (Bld) [Relative time] 2.8 {INR} [facility] Prothrombin timeOrdered By: Melo Shrestha on 07-29-2024 PT Coag (PPP) [Time] 30.2 s High 11.7-14.9 [facility] INR Coag (BldC) [Relative ti me]Ordered By: Melo Shrestha on 07-25-2024 INR Coag (Bld) [Relative time] 2.2 {INR} [facility] Comment on above: Critical Value > 4.0 International normalized rat io (INR) measurement by fingerstickOrdered By: Melo Shrestha on 07-25-2024 INR Coag (BldC) [Relative time] 2.2 [facility] Comment on above: Critical Value > 4.0 PT Coag (Bld) [Time]Ordered By: Melo Shrestha on 07-25-2024 Bedside Prothrombin Time 24.3 SEC High 11.7-14.9 [facility] Whole blood prothrombin time Ordered By: Melo Shrestha on 07-25-2024 PT Coag (Bld) [Time] 24.3 s High 11.7-14.9 [facility] INR Coag (BldC) [Relative ti me]Ordered By: Melo Shrestha on 07-24-2024 INR Coag (Bld) [Relative time] 2.1 {INR} [facility] Comment on above: Critical Value > 4.0 International normalized rat io (INR) measurement by fingerstickOrdered By: Melo Shrestha on 07-24-2024 INR Coag (BldC) [Relative time] 2.1 [facility] Comment on above: Critical Value > 4.0 PT Coag (Bld) [Time]Ordered By: Melo Shrestha on 07-24-2024 Bedside Prothrombin Time 23.3 SEC High 11.7-14.9 [facility] Whole blood prothrombin time Ordered By: Melo Shrestha on 07-24-2024 PT Coag (Bld) [Time] 23.3 s High 11.7-14.9 [facility] International normalized rat io (INR) calculationOrdered By: Melo Shrestha on 2024 INR Coag (Bld) [Relative time] 1.9 {INR} [facility] Prothrombin timeOrdered By: Melo Shrestha on 2024 PT Coag (PPP) [Time] 22.5 s High 11.7-14.9 [facility] International normalized rat io (INR) calculationOrdered By: Melo Shrestha on 07-18-2024 INR Coag (Bld) [Relative time] 2.2 {INR} [facility] Prothrombin timeOrdered By: Melo Shrestha on 07-18-2024 PT Coag (PPP) [Time] 25.3 s High 11.7-14.9 [facility] INR Coag (BldC) [Relative ti me]Ordered By: Melo Shrestha on 07-17-2024 INR Coag (Bld) [Relative time] 1.6 {INR} [facility] Comment on above: Critical Value > 4.0 International normalized rat io (INR) measurement by fingerstickOrdered By: Melo Shrestha on 07-17-2024 INR Coag (BldC) [Relative time] 1.6 [facility] Comment on above: Critical Value > 4.0 PT Coag (Bld) [Time]Ordered By: Melo Shrestha on 07-17-2024 Bedside Prothrombin Time 18.3 SEC High 11.7-14.9 [facility] Whole blood prothrombin time Ordered By: Melo Shrestha on 07-17-2024 PT Coag (Bld) [Time] 18.3 s High 11.7-14.9 [facility] International normalized rat io (INR) calculationOrdered By: Melo Shrestha on 07-16-2024 INR Coag (Bld) [Relative time] 1.9 {INR} [facility] Prothrombin timeOrdered By: Melo Shrestha on 07-16-2024 PT Coag (PPP) [Time] 22.3 s High 11.7-14.9 [facility] International normalized rat io (INR) calculationOrdered By: Melo Shrestha on 07-15-2024 INR Coag (Bld) [Relative time] 1.8 {INR} [facility] Prothrombin timeOrdered By: Melo Shrestha on 07-15-2024 PT Coag (PPP) [Time] 21.5 s High 11.7-14.9 [facility] INR Coag (BldC) [Relative ti me]Ordered By: Melo Shrestha on 07-12-2024 INR Coag (Bld) [Relative time] 1.7 {INR} [facility] Comment on above: Critical Value > 4.0 International normalized rat io (INR) measurement by fingerstickOrdered By: Melo Shrestha on 07-12-2024 INR Coag (BldC) [Relative time] 1.7 [facility] Comment on above: Critical Value > 4.0 PT Coag (Bld) [Time]Ordered By: Melo Shrestha on 07-12-2024 Bedside Prothrombin Time 18.8 SEC High 11.7-14.9 [facility] Whole blood prothrombin time Ordered By: Melo Shrestha on 07-12-2024 PT Coag (Bld) [Time] 18.8 s High 11.7-14.9 [facility] International normalized rat io (INR) calculationOrdered By: Melo Shrestha on 07-09-2024 INR Coag (Bld) [Relative time] 2.1 {INR} [facility] Prothrombin timeOrdered By: Melo Shrestha on 07-09-2024 PT Coag (PPP) [Time] 23.8 s High 11.7-14.9 [facility] INR Coag (BldC) [Relative ti me]Ordered By: Melo Shrestha on 07-08-2024 INR Coag (Bld) [Relative time] 1.9 {INR} [facility] Comment on above: Critical Value > 4.0 International normalized rat io (INR) measurement by fingerstickOrdered By: Melo Shrestha on 07-08-2024 INR Coag (BldC) [Relative time] 1.9 [facility] Comment on above: Critical Value > 4.0 PT Coag (Bld) [Time]Ordered By: Melo Shrestha on 07-08-2024 Bedside Prothrombin Time 21.2 SEC High 11.7-14.9 [facility] Whole blood prothrombin time Ordered By: Melo Shrestha on 07-08-2024 PT Coag (Bld) [Time] 21.2 s High 11.7-14.9 [facility] INR Coag (BldC) [Relative ti me]Ordered By: Melo Shrestha on 07-05-2024 INR Coag (Bld) [Relative time] 1.2 {INR} [facility] Comment on above: Critical Value > 4.0 International normalized rat io (INR) measurement by fingerstickOrdered By: Melo Shrestha on 07-05-2024 INR Coag (BldC) [Relative time] 1.2 [facility] Comment on above: Critical Value > 4.0 PT Coag (Bld) [Time]Ordered By: Melo Shrestha on 07-05-2024 Bedside Prothrombin Time 14.0 SEC 11.7-14.9 [facility] Whole blood prothrombin time Ordered By: Melo Shrestha on 07-05-2024 PT Coag (Bld) [Time] 14.0 s 11.7-14.9 [facility] International normalized rat io (INR) calculationOrdered By: Melo Shrestha on 07-04-2024 INR Coag (Bld) [Relative time] 1.3 {INR} [facility] Prothrombin timeOrdered By: Melo Shrestha on 07-04-2024 PT Coag (PPP) [Time] 16.4 s High 11.7-14.9 [facility] INR Coag (BldC) [Relative ti me]Ordered By: Melo Shrestha on 07-03-2024 INR Coag (Bld) [Relative time] 1.1 {INR} [facility] Comment on above: Critical Value > 4.0 International normalized rat io (INR) measurement by fingerstickOrdered By: Melo Shrestha on 07-03-2024 INR Coag (BldC) [Relative time] 1.1 [facility] Comment on above: Critical Value > 4.0 PT Coag (Bld) [Time]Ordered By: Melo Shrestha on 07-03-2024 Bedside Prothrombin Time 13.5 SEC 11.7-14.9 [facility] Whole blood prothrombin time Ordered By: Melo Shrestha on 07-03-2024 PT Coag (Bld) [Time] 13.5 s 11.7-14.9 [facility] International normalized rat io (INR) calculationOrdered By: Melo Shrestha on 07-02-2024 INR Coag (Bld) [Relative time] 1.1 {INR} [facility] Prothrombin timeOrdered By: Melo Shrestha on 07-02-2024 PT Coag (PPP) [Time] 14.7 s 11.7-14.9 [facility] INR Coag (BldC) [Relative ti me]Ordered By: Melo Shrestha on 07-01-2024 INR Coag (Bld) [Relative time] 1.2 {INR} [facility] Comment on above: Critical Value > 4.0 International normalized rat io (INR) measurement by fingerstickOrdered By: Melo Shrestha on 07-01-2024 INR Coag (BldC) [Relative time] 1.2 [facility] Comment on above: Critical Value > 4.0 PT Coag (Bld) [Time]Ordered By: Melo Shrestha on 07-01-2024 Bedside Prothrombin Time 13.8 SEC 11.7-14.9 [facility] Whole blood prothrombin time Ordered By: Melo Shrestha on 07-01-2024 PT Coag (Bld) [Time] 13.8 s 11.7-14.9 [facility] Absolute lymphocyte countOrd ered By: Melo Shrestha on 06-17-2024 Lymphocytes Auto (Unsp spec) [#/Vol] 1.14 10*3/uL 0.83-4.51 [facility] Absolute neutrophil countOrd ered By: Melo Shrestha on 06-17-2024 Neutrophils (Bld) [#/Vol] 3.1 10*3/uL 2.0-7.7 [facility] Albumin to globulin ratioOrd ered By: Melo Shrestha on 06-17-2024 Albumin/Globulin [Mass ratio] 1.0 {ratio} 0.9-2.4 [facility] Automated lymphocyte count a s percentage of total leukocytesOrdered By: Melo Shrestha on 06-17-2024 Lymphocytes/100 WBC Auto (Unsp spec) 23.9 % 19-41 [facility] Basophil percentageOrdered B y: Melo Shrestha on 06-17-2024 Basophils/100 WBC (Bld) 0.6 % 0-1 [facility] Bilirubin, totalOrdered By: Melo Shrestha on 06-17-2024 Bilirubin [Mass/Vol] 0.50 mg/dL 0.20-1.00 [facility] Comment on above: For patients on eltr ombopag therapy, use of Dimension [place] TBIL is not recommended. Blood urea nitrogen (BUN)/cr eatinine ratioOrdered By: Melo Shrestha on 06-17-2024 Urea nitrogen/Creatinine [Mass ratio] 20.8 mg/mg High 10- [facility] Carbon dioxide measurementOr dered By: Melo Shrestha on 06-17-2024 CO2 [Moles/Vol] 29.0 mmol/L 21.0-32.0 [facility] Chloride measurementOrdered By: Melo Shrestha on 06-17-2024 Chloride [Moles/Vol] 107 mmol/L 98-107 [facility] Eosinophil percentageOrdered By: Melo Shrestha on 06-17-2024 Eosinophils/100 WBC (Bld) 2.5 % 0-5 [facility] Erythrocyte distribution wid th ratioOrdered By: Melo Shrestha on 06-17-2024 Erythrocyte distribution width (RBC) [Ratio] 12.5 % 11.6-14.6 [facility] Erythrocyte distribution wid th standard deviationOrdered By: Melo Shrestha on 06-17-2024 Erythrocyte distribution width (RBC) [Entitic vol] 43.2 fL 35.1-43.9 [facility] Erythrocyte distribution width (RBC) [Ratio] 43.2 fl 35.1-43.9 [facility] Estimated glomerular filtrat ion rate (GFR) AmericanOrdered By: Melo Shrestha on 06-17-2024 Estimated GFR (MDRD) Amer 116 mL/min >60 [facility] Comment on above: GFR Calc Glomerular filtration rate ( GFR) estimationOrdered By: Melo Shrestha on 06-17-2024 Estimated GFR (MDRD) Non-Af Amer 96 mL/min >60 [facility] Comment on above: Non- GFR Calc GFR/1.73 sq M.predicted among non-blacks MDRD (S/P/Bld) [Vol rate/Area] 96 mL/min/{1.73_m2} >60 [facility] Comment on above: Non- GFR Calc Glucose measurementOrdered B y: Melo Shrestha on 06-17-2024 Glucose [Mass/Vol] 113 mg/dL High 74-106 [facility] Comment on above: Fasting Glucose resu lt from 100 to 125 mg/dL suggests IMPAIRED HOMEOSTASIS per A.D.A. criteria. Hematocrit Auto (Bld) [Volum e fraction]Ordered By: Melo Shrestha on 06-17-2024 Hematocrit (Bld) [Volume fraction] 37.9 % 37-47 [facility] Hemoglobin measurementOrdere d By: Melo Shrestha on 06-17-2024 Hemoglobin (Bld) [Mass/Vol] 12.1 g/dL 12.0-15.0 [facility] Immature granulocytes/100 WB C Auto (Bld)Ordered By: Melo Shrestha on 06-17-2024 Immature granulocytes/100 WBC (Bld) 0.200 % 0.0-0.9 [facility] Comment on above: IG% - Immature Granu locytes (promyelocytes, myelocytes and metamyelocytes) > 1% indicates that a LEFT SHIFT is Present. Laboratory - Chemistry and C hemistry - challengeOrdered By: Melo Shrestha on 06-17-2024 AST [Catalytic activity/Vol] 16 U/L 15-37 [facility] Lymphocytes Auto (Unsp spec) [#/Vol]Ordered By: Melo Shrestha on 06-17-2024 Lymphocytes (Bld) [#/Vol] 1.14 10*3/uL 0.83-4.51 [facility] Lymphocytes/100 WBC Auto (Un sp spec)Ordered By: Melo Shrestha on 06-17-2024 Lymphocytes/100 WBC (Bld) 23.9 % 19-41 [facility] MCV (mean corpuscular volume ) determinationOrdered By: Melo Shrestha on 06-17-2024 MCV (RBC) [Entitic vol] 94.0 fL 81-99 [facility] Mean corpuscular hemoglobin (MCH) determinationOrdered By: Melo Shrestha on 06-17-2024 MCH (RBC) [Entitic mass] 30.0 pg 27.0-32.0 [facility] Mean corpuscular hemoglobin concentration (MCHC) determinationOrdered By: Melo Shrestha on 06-17-2024 MCHC (RBC) [Mass/Vol] 31.9 g/dL Low 32-36 [facility] Mean platelet volume determi nationOrdered By: Melo Shrestha on 06-17-2024 Platelet mean volume (Bld) [Entitic vol] 10.1 fL 6.2-12.0 [facility] Monocyte percentageOrdered B y: Melo Shrestha on 06-17-2024 Monocytes/100 WBC (Bld) 8.0 % 0-10 [facility] Neutrophil percentageOrdered By: Melo Shrestha on 06-17-2024 Neutrophils/100 WBC (Bld) 64.8 % 47-70 [facility] Nucleated red blood cell per centageOrdered By: Melo Shrestha on 06-17-2024 Nucleated RBC/100 WBC (Bld) [Ratio] 0 % 0-5 [facility] Platelet countOrdered By: Bennie Shrestha on 06-17-2024 Platelets (Bld) [#/Vol] 188 10*3/uL 150-450 [facility] Potassium measurementOrdered By: Melo Shrestha on 06-17-2024 Potassium [Moles/Vol] 4.3 mmol/L 3.5-5.1 [facility] RBC Auto (Bld) [#/Vol]Ordere d By: Melo Shrestha on 06-17-2024 RBC (Bld) [#/Vol] 4.03 10*6/uL Low 4.2-5.4 [facility] Serum anion gap measurementO rdered By: Melo Shrestha on 06-17-2024 Anion gap [Moles/Vol] 3 mmol/L Low 5-15 [facility] Serum globulin measurementOr dered By: Melo Shrestha on 06-17-2024 Globulin (S) [Mass/Vol] 3.2 g/dL 2.2-4.2 [facility] Serum or plasma alanine dudley otransferase (ALT) measurementOrdered By: Melo Shrestha on 06-17-2024 ALT [Catalytic activity/Vol] 7 U/L Low 13-56 [facility] Serum or plasma albumin josué urement (mass/volume)Ordered By: Melo Shrestha on 06-17-2024 Albumin [Mass/Vol] 3.1 g/dL Low 3.2-5.0 [facility] Serum or plasma alkaline juventino sphatase measurementOrdered By: Melo Shrestha on 06-17-2024 ALP [Catalytic activity/Vol] 56 U/L 45-117 [facility] Serum or plasma calcium josué urement (mass/volume)Ordered By: Melo Shrestha on 06-17-2024 Calcium [Mass/Vol] 8.9 mg/dL 8.5-10.1 [facility] Serum or plasma creatinine m easurement (mass/volume)Ordered By: Melo Shrestha on 06-17-2024 Creatinine [Mass/Vol] 0.62 mg/dL 0.55-1.02 [facility] Comment on above: The validity of the calculated GFR & GFRAA in patients over 70 years has not been determined. Clinical correlation is essential. Serum or plasma urea nitroge n measurement (mass/volume)Ordered By: Melo Shrestha on 06-17-2024 Urea nitrogen [Mass/Vol] 13 mg/dL 7-18 [facility] Sodium levelOrdered By: Neo Shrestha on 06-17-2024 Sodium [Moles/Vol] 140 mmol/L 136-145 [facility] Total proteinOrdered By: Enoc Shrestha on 06-17-2024 Protein [Mass/Vol] 6.3 g/dL Low 6.4-8.2 [facility] White blood cell (WBC) count Ordered By: Melo Shrestha on 06-17-2024 WBC (Bld) [#/Vol] 4.8 10*3/uL 4.4-11.0 [facility] Bilirubin Test strip Ql (U)O rdered By: Melo Shrestha on 06-16-2024 Bilirubin Ql (U) Negative Negative [facility] Epithelial cells.squamous LM Ql (Urine sed)Ordered By: Melo Shrestha on 06-16-2024 Epithelial cells.squamous LM.HPF (Urine sed) [#/Area] 0 /[HPF] 5-10 [facility] Glucose Ql (U)Ordered By: Bennie Shrestha on 06-16-2024 Urine Glucose (UA) Normal mg/dl Normal [facility] Ketones Test strip Ql (U)Ord ered By: Melo Shrestha on 06-16-2024 Ketones Ql (U) Negative Negative [facility] Microscopic analysis of urin e for red blood cells (RBC)Ordered By: Melo Shrestha on 06-16-2024 Microscopic analysis of urine for red blood cells (RBC) 0 SEEN /hpf 0-5 [facility] Urine RBC 0 SEEN /hpf 0-5 [facility] Mucus LM Ql (Urine sed)Order ed By: Melo Shrestha on 06-16-2024 Mucus Ql (Urine sed) 0 SEEN /hpf [facility] Nitrite Test strip Ql (U)Ord ered By: Melo Shrestha on 06-16-2024 Nitrite Ql (U) Negative Negative [facility] Protein Test strip Ql (U)Ord ered By: Melo Shrestha on 06-16-2024 Protein Ql (U) Negative Negative [facility] Squamous epithelial cells de tection in urine sediment by light microscopyOrdered By: Melo Shrestha on 06-16-2024 Epithelial cells.squamous LM Ql (Urine sed) 0 SEEN /hpf 5-10 [facility] Urine blood detectionOrdered By: Melo Shrestha on 06-16-2024 Urine Occult Blood Negative Negative [facility] Urine clarityOrdered By: Enoc Shrestha on 06-16-2024 Clarity (U) Clear Clear [facility] Urine color determinationOrd ered By: Melo Shrestha on 06-16-2024 Color (U) Straw Yellow [facility] Urine cultureOrdered By: Enoc Shrestha on 06-16-2024 Bacteria identified Cx Nom (U) Culture exhibits no growth. [facility] Bacteria identified Cx Nom (U) Culture exhibits no growth. [facility] Urine glucose detectionOrder ed By: Melo Shrestha on 06-16-2024 Glucose Ql (U) Normal mg/dl Normal [facility] Urine leukocyte esterase det ection by dipstickOrdered By: Melo Shrestha on 06-16-2024 Leukocyte esterase Test strip Ql (U) Negative Negative [facility] Urine pHOrdered By: Melo flores on 06-16-2024 pH (U) 7.0 [pH] 5.0 - 8.0 [facility] Urine sediment bacteria coun t by microscopy (number/high power field)Ordered By: Melo Shrestha on 06-16-2024 Bacteria LM.HPF (Urine sed) [#/Area] 0 /[HPF] None Seen [facility] Urine specific gravity measu rementOrdered By: Melo Shrestha on 06-16-2024 Specific gravity (U) [Rel density] 1.005 1.002-1.03 0 [facility] Urine urobilinogen measureme ntOrdered By: Melo Shrestha on 06-16-2024 Urobilinogen Ql (U) Normal mg/dl Normal [facility] Urobilinogen Ql (U)Ordered B y: Melo Shrestha on 06-16-2024 Urine Urobilinogen Normal mg/dl Normal [facility] White blood cell countOrdere d By: Melo Shrestha on 06-16-2024 Urine WBC 0 SEEN /hpf 0-5 [facility] White blood cell count 0 SEEN /hpf 0-5 [facility] Blood urea nitrogen (BUN)/cr eatinine ratioOrdered By: Melo Shrestha on 04-04-2024 Urea nitrogen/Creatinine [Mass ratio] 20.8 mg/mg High 10-20 [facility] Carbon dioxide measurementOr dered By: Melo Shrestha on 04-04-2024 CO2 [Moles/Vol] 29.0 mmol/L 21.0-32.0 [facility] Chloride measurementOrdered By: Melo Shrestha on 04-04-2024 Chloride [Moles/Vol] 105 mmol/L 98-107 [facility] Direct serum free thyroxine (FT4) measurementOrdered By: Melo Shrestha on 04-04-2024 Free T4 [Mass/Vol] 0.92 ng/dL 0.76-1.46 [facility] Erythrocyte distribution wid th ratioOrdered By: Melo Shrestha on 04-04-2024 Erythrocyte distribution width (RBC) [Ratio] 12.8 % 11.6-14.6 [facility] Erythrocyte distribution wid th standard deviationOrdered By: Melo Shrestha on 04-04-2024 Erythrocyte distribution width (RBC) [Entitic vol] 44.6 fL High 35.1-43.9 [facility] Estimated glomerular filtrat ion rate (GFR) AmericanOrdered By: Melo Shrestha on 04-04-2024 Estimated GFR (MDRD) Amer 116 mL/min >60 [facility] Comment on above: GFR Calc Glomerular filtration rate ( GFR) estimationOrdered By: Melo Shrestha on 04-04-2024 Estimated GFR (MDRD) Non-Af Amer 96 mL/min >60 [facility] Comment on above: Non- GFR Calc Glucose measurementOrdered B y: Melo Shrestha on 04-04-2024 Glucose [Mass/Vol] 102 mg/dL 74-106 [facility] Comment on above: Fasting Glucose resu lt from 100 to 125 mg/dL suggests IMPAIRED HOMEOSTASIS per A.D.A. criteria. Hematocrit Auto (Bld) [Volum e fraction]Ordered By: Melo Shrestha on 04-04-2024 Hematocrit (Bld) [Volume fraction] 37.1 % 37-47 [facility] Hemoglobin measurementOrdere d By: Melo Shrestha on 04-04-2024 Hemoglobin (Bld) [Mass/Vol] 11.8 g/dL Low 12.0-15.0 [facility] MCV (mean corpuscular volume ) determinationOrdered By: Melo Shrestha on 04-04-2024 MCV (RBC) [Entitic vol] 94.9 fL 81-99 [facility] Mean corpuscular hemoglobin (MCH) determinationOrdered By: Melo Shrestha on 04-04-2024 MCH (RBC) [Entitic mass] 30.2 pg 27.0-32.0 [facility] Mean corpuscular hemoglobin concentration (MCHC) determinationOrdered By: Melo Shrestha on 04-04-2024 MCHC (RBC) [Mass/Vol] 31.8 g/dL Low 32-36 [facility] Mean platelet volume determi nationOrdered By: Melo Shrestha on 04-04-2024 Platelet mean volume (Bld) [Entitic vol] 9.4 fL 6.2-12.0 [facility] Platelet countOrdered By: Bennie Shrestha on 04-04-2024 Platelets (Bld) [#/Vol] 294 10*3/uL 150-450 [facility] Potassium measurementOrdered By: Melo Shrestha on 04-04-2024 Potassium [Moles/Vol] 4.0 mmol/L 3.5-5.1 [facility] RBC Auto (Bld) [#/Vol]Ordere d By: Melo Shrestha on 04-04-2024 RBC (Bld) [#/Vol] 3.91 10*6/uL Low 4.2-5.4 [facility] Serum anion gap measurementO rdered By: Melo Shrestha on 04-04-2024 Anion gap [Moles/Vol] 3 mmol/L Low 5-15 [facility] Serum or plasma calcium josué urement (mass/volume)Ordered By: Melo Shrestha on 04-04-2024 Calcium [Mass/Vol] 8.7 mg/dL 8.5-10.1 [facility] Serum or plasma creatinine m easurement (mass/volume)Ordered By: Melo Shrestha on 04-04-2024 Creatinine [Mass/Vol] 0.62 mg/dL 0.55-1.02 [facility] Comment on above: The validity of the calculated GFR & GFRAA in patients over 70 years has not been determined. Clinical correlation is essential. Serum or plasma urea nitroge n measurement (mass/volume)Ordered By: Melo Shrestha on 04-04-2024 Urea nitrogen [Mass/Vol] 13 mg/dL -18 [facility] Serum prealbumin measurement by immunoassayOrdered By: Melo Shrestha on 04-04-2024 Prealbumin [Mass/Vol] 16 mg/dL [facility] Comment on above: Performed at: [address] [id number] Director: Rolando Bocanegra PhD, Phone: [phone] Sodium levelOrdered By: Neo Shrestha on 04-04-2024 Sodium [Moles/Vol] 137 mmol/L 136-145 [facility] TSH QnOrdered By: Melo wyatt on 04-04-2024 Thyroid Stimulating Hormone (TSH) 1.710 uIU/mL 0.358-3.74 0 [facility] White blood cell (WBC) count Ordered By: Melo Shrestha on 04-04-2024 WBC (Bld) [#/Vol] 4.9 10*3/uL 4.4-11.0 [facility] Chest 1 View (Portable)on Chest 1 View (Portable) [facility] Imaging Services [address] [place] [address] Chest 1 View (Portable) MR#: [id number] Acct: [id number] Name: COLETTE RICHARDSON Rep #: [id number] : 1935 F 88 From: Tyrel Pierson PCP: Dr. Melo Shrestha MD Status: REG ER Study: Chest 1 View (Portable) Date of Exam: 03/24/24 Exam# [id number] Ordering Dr: Serge Gómez DO [id number] INDICATION: Cough EXAMINATION/TECHNIQUE: X-RAY - XR Chest 1 View COMPARISON: Prior study dated: 1922 FINDINGS: LINES/DEVICES: None. LUNGS: No consolidation, edema or effusion. No pneumothorax. MEDIASTINUM AND CARDIOVASCULAR STRUCTURES: Stable cardiomediastinal silhouette. Status post median sternotomy and CABG. BONES AND SOFT TISSUES: Unremarkable. RAD/Chest 1 View (Portable) IMPRESSION: No radiographic evidence of acute cardiopulmonary disease. Electronically Signed: Tyrel Diaz MD at 13:11 EDT , CC: Dr. Serge Gómez DO; Dr. Meol Shrestha MD Collar Worker: Signed Normal [facility] Emergency Department Summary on 03-24-2024 Emergency Department Summary [facility] Medical Records Department [address] [place] [address] Emergency Department Summary 03/24/24 MR#: [id number] Acct: [id number] Name: COLETTE RICHARDSON Rep #: [id number] : 1935 88 From: Serge Gómez DO PCP: Dr. Melo Shrestha MD Status:DEP ER Location: ED HPI History of Present Illness HPI Narrative: Patient presents with right hip pain that began after a fall 1 week ago. Patient states her pain has been constant for the past week. Patient describes it as constant aching but sharp with any movement. Patient states she is unable to bear weight today.. Patient admits to some weakness due to her Parkinson's disease. Patient denies any paresthesias. Patient denies any head injury or loss of consciousness. Patient denies any other injuries. Chief Complaint: Lower Extremity Injury Informant: patient Occured/Mechanism Mechanism/Context: Yes fall Onset/Context/Timing Onset: Weeks (1) Context: Sudden Onset Timing: Continuous Quality of Pain: Sharp (With movement) and Aching Location: Right hip Worsened by: Movement Relieved by: Rest Associated Symptoms Associated Symptoms: Positive for Weakness; Negative for Parasthesia or Loss of Funtion [facility] Medical History History of Parkinson's disease Memory loss Nonrheumatic aortic (valve) stenosis Poor balance Frequent falls residential current use of anticoagulant Rheumatoid arthritis Parkinsonian syndrome History of pulmonary embolus (PE) Postoperative atrial fibrillation (04/04/13) Recurrent deep vein thrombosis (DVT) Hypercoagulable state History of non-ST elevation myocardial infarction (NSTEMI) (10/01/16) Atherosclerotic heart disease of circle coronary artery without angina pectoris Paroxysmal atrial fibrillation Essential hypertension Restrictive airway disease Atrial fibrillation with RVR (10/01/16) Bilateral breast cancer Depression Home Medications ???Medication ???Instructions ???Recorded ???Last Taken ???Type venlafaxine 75 mg tablet 75 mg PO QHS DEPRESSION 02/14/19 06/15/22 20:45 History albuterol sulfate 90 mcg/actuation 2 puff inhalation Q6H PRN Wheezing 09/23/21 Unknown History aerosol inhaler (Ventolin HFA) losartan 100 mg tablet 100 mg PO DAILY BP 09/23/21 06/16/22 09:15 History trazodone 100 mg tablet 100 mg PO QHS Sleep 09/23/21 06/15/22 20:45 History hydroxychloroquine 200 mg tablet 200 mg PO BID RA 11/02/21 06/16/22 09:15 History venlafaxine 150 mg 150 mg PO BREAKFAST DEPRESSION 11/02/21 06/16/22 09:15 History capsule,extended release 24 hr alprazolam 0.25 mg tablet 0.25 mg PO QHS PRN PRN 11/10/21 06/15/22 11:30 Rx Anxiety/Restlessness/Sleep #0 tabs potassium chloride 20 mEq 20 meq PO DAILYCM 30 days #30 tabs 11/10/21 06/16/22 09:15 Rx tablet,extended release(part/cryst) (Klor-Con M) acetaminophen 325 mg tablet 650 mg PO Q6H PRN Pain 06/16/22 06/08/22 20:00 History alprazolam 0.5 mg tablet 0.5 mg PO QHS DEPRESSION 06/16/22 06/15/22 20:45 History metoprolol tartrate 100 mg tablet 100 mg PO BID HTN 06/16/22 06/16/22 09:15 History carbidopa 10 mg-levodopa 100 mg 1 tab PO TID 01/09/23 Unknown History disintegrating tablet metoprolol tartrate 100 mg tablet 100 mg PO BID 01/09/23 Unknown History warfarin 5 mg tablet 5 mg PO DINNER AFIB 01/09/23 Unknown History warfarin 6 mg tablet 6 mg PO .3XW 01/09/23 Unknown History ondansetron 4 mg disintegrating 4 mg PO Q8H PRN PRN Nausea #10 tabs 02/02/23 Unknown Rx tablet Allergy/AdvReac Type Severity Reaction Status Date / Time Penicillins Allergy Anaphylaxis Verified 03/24/24 11:05 acetaminophen (From Vicodin) AdvReac Itching Verified 03/24/24 11:05 codeine AdvReac Nausea Verified 03/24/24 11:05 ezetimibe (From Zetia) AdvReac Itching Verified 03/24/24 11:05 hydrocodone bitartrate (From AdvReac Itching Verified 03/24/24 11:05 Vicodin) Zmsbgcn-RAN-RsC Reductase AdvReac Other Verified 03/24/24 11:05 Inhibitor (Uslkglj-Vcz-Tit Reductase Inhibitor) Surgical History History of coronary artery stent placement (12/2003) History of left heart catheterization (10/13/15) History of cardioversion (10/01/16) 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) History of appendectomy Social History household members: none Smoking Status: Former smoker how long ago did patient quit smokin, 1ppd second hand exposure: Yes alcohol intake: never substance use type: does not use ROS ROS ED Constitutional Constitutional ED: Denies chills or fever(s) Eyes Eyes: Reports change in vision; Denies blurry vision or diplopia ENT ENT ED: Denies rhinorrhea or sore throat Cardiovascular Cardiov (more content not included)... [facility] Extremity Lower without Cont raon 03-24-2024 Extremity Lower without Contra [facility] Imaging Services [address] [place], [place] [address] Extremity Lower without Contra MR#: [id number] Acct: [id number] Name: COLETTE RICHARDSON Rep #: [id number] : 1935 F 88 From: Tyrel Pierson PCP: Dr. Melo Shrestha MD Status: REG ER Study: Extremity Lower without Contra Date of Exam: 1 Exam# [id number] Ordering Dr: Serge Gómez DO [id number] STUDY: CT RIGHT HIP REASON FOR EXAM: Female, 88 years old. Hip pain CONTRAST: None. TECHNIQUE: Transaxial imaging of the hip was performed with reformatted sagittal and coronal images. The protocol utilizes one or more of the following dose reduction techniques: automated exposure control, adjustment of mA and/or kV according to patient size,and/or use of iterative reconstruction technique. COMPARISON: Radiographs of the right hip of the same day. FINDINGS: HIP Mild narrowing of the hip joint. The acetabulum appears unremarkable. Mild subchondral cystic changes in the femoral neck. No evidence of acute fracture or dislocation. SOFT TISSUES: No evidence of significant soft tissue swelling or joint effusion. Vascular calcifications. CT/Extremity Lower without Contra IMPRESSION: No evidence of acute fracture. Electronically Signed: Tyrel Diaz MD at 14:26 EDT , CC: Dr. Serge Gómez DO; Dr. Melo Shrestha MD Collar Worker: Signed [facility] HIP, UNI W/ Pelvis 2-3 Views on 03-24-2024 HIP, UNI W/ Pelvis 2-3 Views [facility] Imaging Services [address] [place] [id number] HIP, UNI W/ Pelvis 2-3 Views MR#: [id number] Acct: [id number] Name: COLETTE RICHARDSON Rep #: [id number] : 1935 F 88 From: Tyrel Pierson PCP: Dr. Melo Shrestha MD Status: [facility] Study: HIP, UNI W/ Pelvis 2-3 Views Date of Exam: Exam# [id number] Ordering Dr: Serge Gómez DO [id number] INDICATION: Injury/Pain EXAMINATION/TECHNIQUE: X-RAY - XR Hip Unilateral with Pelvis when performed; 2-3 Views COMPARISON: Prior study dated: 06/17/2021 FINDINGS: PELVIC BONES: No displaced fracture, destructive or sclerotic lesions. Note that overlapping bowel shadows may however obscure fine detail. Sacroiliac joints are unremarkable. No widening of the pubic symphysis. HIPS: The articular structures are unremarkable. Foreshortening of the femoral neck. Subcapital fracture is difficult to exclude. SOFT TISSUES: Vascular calcifications. RAD/HIP, UNI W/ Pelvis 2-3 Views IMPRESSION: Foreshortening of the right femoral neck. Subcapital fracture cannot be entirely excluded. CT scan of the pelvis might be of value. Electronically Signed: Tyrel Diaz MD at 13:06 EDT , CC: Dr. Serge Gómez, ; Dr. Melo Shrestha MD Collar Worker: Signed Normal [facility] Laboratory - CoagulationOrde red By: Joao Simon on 09-11-2023 INR Coag (Bld) [Relative time] 2.3 {INR} [facility] PT Coag (PPP) [Time] 25.2 s 11.7-14.9 [facility] Capillary blood internationa l normalized ratio (INR)Ordered By: Joao Simon on 08-30-2023 INR Coag (BldC) [Relative time] 1.9 [facility] Comment on above: Critical Value > 4.0 Whole blood prothrombin time Ordered By: Joao Simon on 08-30-2023 PT Coag (Bld) [Time] 19.9 s 11.7-14.9 [facility] Laboratory - CoagulationOrde red By: Joao Simon on 08-09-2023 INR Coag (Bld) [Relative time] 2.7 {INR} [facility] PT Coag (PPP) [Time] 28.2 s 11.7-14.9 [facility] Laboratory - CoagulationOrde red By: Joao Simon on 07-26-2023 INR Coag (Bld) [Relative time] 2.7 {INR} [facility] PT Coag (PPP) [Time] 28.2 s 11.7-14.9 [facility] Laboratory - CoagulationOrde red By: Joao Simon on 07-11-2023 INR Coag (Bld) [Relative time] 2.8 {INR} [facility] PT Coag (PPP) [Time] 30.2 s 11.7-14.9 [facility] Capillary blood internationa l normalized ratio (INR)Ordered By: Joao Simon on 06-28-2023 INR Coag (BldC) [Relative time] 2.6 [facility] Comment on above: Critical Value > 4.0 Whole blood prothrombin time Ordered By: Joao Simon on 06-28-2023 PT Coag (Bld) [Time] 27.9 s 11.7-14.9 [facility] Capillary blood internationa l normalized ratio (INR)Ordered By: Joao Simon on 06-14-2023 INR Coag (BldC) [Relative time] 1.8 [facility] Comment on above: Critical Value > 4.0 Whole blood prothrombin time Ordered By: Joao Simon on 06-14-2023 PT Coag (Bld) [Time] 19.7 s 11.7-14.9 [facility] Laboratory - CoagulationOrde red By: Joao Simon on 05-31-2023 INR Coag (Bld) [Relative time] 2.5 {INR} [facility] Comment on above: Critical Value > 4.0 Whole blood prothrombin time Ordered By: Joao Simon on 05-31-2023 PT Coag (Bld) [Time] 26.7 s 11.7-14.9 [facility] Laboratory - CoagulationOrde red By: Joao Simon on 05-23-2023 INR Coag (Bld) [Relative time] 3.4 {INR} [facility] Comment on above: Critical Value > 4.0 Whole blood prothrombin time Ordered By: Joao Simon on 05-23-2023 PT Coag (Bld) [Time] 36.3 s 11.7-14.9 [facility] Laboratory - CoagulationOrde red By: Joao Simon on 05-08-2023 INR Coag (Bld) [Relative time] 2.4 {INR} [facility] Comment on above: Critical Value > 4.0 Whole blood prothrombin time Ordered By: Joao Simon on 05-08-2023 PT Coag (Bld) [Time] 26.0 s 11.7-14.9 [facility] Laboratory - CoagulationOrde red By: Joao Simon on 04-06-2023 INR Coag (Bld) [Relative time] 2.8 {INR} [facility] Comment on above: Critical Value > 4.0 Whole blood prothrombin time Ordered By: Joao Simon on 04-06-2023 PT Coag (Bld) [Time] 29.8 s 11.7-14.9 [facility] Basophil percentageOrdered B y: Joao Simon on 03-06-2023 Cholesterol [Mass/Vol] 113 mg/dL <200 [facility] Comment on above: <200 mg/dL Desirable 200-240 mg/dL Borderline >240 mg/dL High Risk Triglyceride [Mass/Vol] 82 mg/dL <199 [facility] Comment on above: The drugs N-Acetylcy steine and Metamizole may falsely depress this assay.Serum Triglycerides Reference Interval Normal <150 mg/dL Borderline high 150 - 199 mg/dL High 200 - 499 mg/dL Very High > or = 500 mg/dL WBC (Bld) [#/Vol] 5.8 10*3/uL 4.4-11.0 [facility] Blood erythrocytes count (nu mber/volume)Ordered By: Joao Simon on 03-06-2023 RBC (Bld) [#/Vol] 3.97 10*6/uL 4.2-5.4 [facility] Blood hemoglobin measurement (mass/volume)Ordered By: Joao Simon on 03-06-2023 Hemoglobin (Bld) [Mass/Vol] 12.1 g/dL 12.0-15.0 [facility] Blood platelet mean volumeOr dered By: Joao Simon on 03-06-2023 Platelet mean volume (Bld) [Entitic vol] 10.9 fL 6.2-12.0 [facility] Determination of erythrocyte mean corpuscular volume (MCV)Ordered By: Joao Simon on 03-06-2023 MCV (RBC) [Entitic vol] 96.5 fL 81-99 [facility] Hematocrit Auto (Bld) [Volum e fraction]Ordered By: Joao Simon on 03-06-2023 Hematocrit (Bld) [Volume fraction] 38.3 % 37-47 [facility] Laboratory - Hematology and Cell countsOrdered By: Joao Simon on 03-06-2023 Erythrocyte distribution width (RBC) [Entitic vol] 44.8 fL 35.1-43.9 [facility] Erythrocyte distribution width (RBC) [Ratio] 12.7 % 11.6-14.6 [facility] MCH (RBC) [Entitic mass] 30.5 pg 27.0-32.0 [facility] MCHC Auto (RBC) [Mass/Vol]Or dered By: Joao Simon on 03-06-2023 MCHC (RBC) [Mass/Vol] 31.6 g/dL 32-36 [facility] No Panel InformationOrdered By: Joao Simon on 03-06-2023 Thyroid Stimulating Hormone (TSH) 1.71 uIU/mL 0.358-3.74 [facility] Platelets bldOrdered By: Brittany Simon on 03-06-2023 Platelets (Bld) [#/Vol] 195 10*3/uL 150-450 [facility] Serum or plasma cholesterol in HDL measurement (mass/volume)Ordered By: Joao Simon on 03-06-2023 Cholesterol in HDL [Mass/Vol] 44 mg/dL >40 [facility] Comment on above: The drugs N-Acetylcy steine and Metamizole may falsely depress this assay. Reference Range HDL <40 mg/dL Low HDL Cholesterol HDL >or= 60 mg/dL High HDL Cholesterol Serum or plasma cholesterol in VLDL measurement (mass/volume)Ordered By: Joao Simon on 03-06-2023 Cholesterol in VLDL [Mass/Vol] 16 mg/dL 5-40 [facility] Serum or plasma low density lipoprotein (LDL) cholesterol measurement (mass/volume)Ordered By: Jaoo Simon on 03-06-2023 Cholesterol in LDL [Mass/Vol] 53 mg/dL 0-130 [facility] Laboratory - CoagulationOrde red By: Joao Simon on 02-21-2023 INR Coag (Bld) [Relative time] 3.1 {INR} [facility] Comment on above: Critical Value > 4.0 Whole blood prothrombin time Ordered By: Joao Simon on 02-21-2023 PT Coag (Bld) [Time] 32.7 s 11.7-14.9 [facility] Laboratory - CoagulationOrde red By: Joao Simon on 02-14-2023 INR Coag (Bld) [Relative time] 1.9 {INR} [facility] Comment on above: Critical Value > 4.0 Whole blood prothrombin time Ordered By: Joao Simon on 02-14-2023 PT Coag (Bld) [Time] 21.2 s 11.7-14.9 [facility] INR in Blood by Coagulation assayOrdered By: Joao Simon on 02-07-2023 INR Coag (Bld) [Relative time] 4.3 {INR} [facility] Laboratory - Chemistry and C hemistry - challengeOrdered By: Joao Simon on 02-07-2023 Cobalamin (Vitamin B12) [Mass/Vol] 243 pg/mL 211-911 [facility] Laboratory - CoagulationOrde red By: Joao Simon on 02-07-2023 PT Coag (PPP) [Time] 41.7 s 11.7-14.9 [facility] Absolute lymphocyte countOrd ered By: Matt Coy on 02-02-2023 Lymphocytes Auto (Unsp spec) [#/Vol] 1.73 10*3/uL 0.83-4.51 [facility] Basophil percentageOrdered B y: Matt Coy on 02-02-2023 Basophil percentage 0-5 SEEN /hpf 0-5 [facility] Basophils/100 WBC (Bld) 0.6 % 0-1 [facility] Bilirubin [Mass/Vol] 0.30 mg/dL 0.20-1.00 [facility] Comment on above: For patients on eltr ombopag therapy, use of Dimension [place] TBIL is not recommended. Chloride [Moles/Vol] 104 mmol/L 98-107 [facility] Eosinophils/100 WBC (Bld) 1.7 % 0-5 [facility] Glucose [Mass/Vol] 133 mg/dL 74-106 [facility] Comment on above: Fasting Glucose resu lt greater than or equal to 126 mg/dL suggests DIABETES MELLITUS per A.D.A. criteria. Neutrophils (Bld) [#/Vol] 4.6 10*3/uL 2.0-7.7 [facility] Neutrophils/100 WBC (Bld) 65.1 % 47-70 [facility] Potassium [Moles/Vol] 4.5 mmol/L 3.5-5.1 [facility] Protein [Mass/Vol] 6.9 g/dL 6.4-8.2 [facility] Sodium [Moles/Vol] 137 mmol/L 136-145 [facility] WBC (Bld) [#/Vol] 7.1 10*3/uL 4.4-11.0 [facility] Bilirubin Test strip Ql (U)O rdered By: Matt Coy on 02-02-2023 Bilirubin Ql (U) Negative Negative [facility] Blood erythrocytes count (nu mber/volume)Ordered By: Matt Coy on 02-02-2023 RBC (Bld) [#/Vol] 4.68 10*6/uL 4.2-5.4 [facility] Blood hemoglobin measurement (mass/volume)Ordered By: Matt Coy on 02-02-2023 Hemoglobin (Bld) [Mass/Vol] 14.3 g/dL 12.0-15.0 [facility] Blood lymphocytes/100 leukoc ytesOrdered By: Matt Coy on 02-02-2023 Lymphocytes/100 WBC (Bld) 24.4 % 19-41 [facility] Blood monocytes/100 leukocyt esOrdered By: Matt Coy on 02-02-2023 Monocytes/100 WBC (Bld) 7.9 % 0-10 [facility] Blood platelet mean volumeOr dered By: Matt Coy on 02-02-2023 Platelet mean volume (Bld) [Entitic vol] 10.3 fL 6.2-12.0 [facility] Determination of erythrocyte mean corpuscular volume (MCV)Ordered By: Matt Coy on 02-02-2023 MCV (RBC) [Entitic vol] 94.0 fL 81-99 [facility] Hematocrit Auto (Bld) [Volum e fraction]Ordered By: Matt Coy on 02-02-2023 Hematocrit (Bld) [Volume fraction] 44.0 % 37-47 [facility] INR in Blood by Coagulation assayOrdered By: Matt Coy on 02-02-2023 INR Coag (Bld) [Relative time] 3.5 {INR} [facility] Ketones Test strip Ql (U)Ord ered By: Matt Coy on 02-02-2023 Ketones Ql (U) Negative Negative [facility] Laboratory - Chemistry and C hemistry - challengeOrdered By: Matt Coy on 02-02-2023 ALP [Catalytic activity/Vol] 73 U/L 45-117 [facility] ALT [Catalytic activity/Vol] 15 U/L 13-56 [facility] CO2 [Moles/Vol] 30.0 mmol/L 21.0-32.0 [facility] Globulin (S) [Mass/Vol] 3.7 g/dL 2.2-4.2 [facility] Lipase [Catalytic activity/Vol] 15 U/L 13-75 [facility] Comment on above: Please note:LIPASE r evised reference range effective 22. New Lipase methodology. Expected to produce lower values than the previous assay method. NEW Reference Range: 13 - 75 U/L Urea nitrogen/Creatinine [Mass ratio] 16.2 mg/mg 10-20 [facility] Laboratory - CoagulationOrde red By: Matt Coy on 02-02-2023 PT Coag (PPP) [Time] 36.0 s 11.7-14.9 [facility] Laboratory - Hematology and Cell countsOrdered By: Matt Coy on 02-02-2023 Erythrocyte distribution width (RBC) [Entitic vol] 42.9 fL 35.1-43.9 [facility] Erythrocyte distribution width (RBC) [Ratio] 12.5 % 11.6-14.6 [facility] Immature granulocytes/100 WBC (Bld) 0.300 % 0.0-0.9 [facility] Comment on above: IG% - Immature Granu locytes (promyelocytes, myelocytes and metamyelocytes) > 1% indicates that a LEFT SHIFT is Present. MCH (RBC) [Entitic mass] 30.6 pg 27.0-32.0 [facility] Nucleated RBC/100 WBC (Bld) [Ratio] 0 % 0-5 [facility] MCHC Auto (RBC) [Mass/Vol]Or dered By: Matt Coy on 02-02-2023 MCHC (RBC) [Mass/Vol] 32.5 g/dL 32-36 [facility] Mucus LM Ql (Urine sed)Order ed By: Matt Coy on 02-02-2023 Mucus Ql (Urine sed) 1+ /hpf [facility] Nitrite Test strip Ql (U)Ord ered By: Matt Coy on 02-02-2023 Nitrite Ql (U) Negative Negative [facility] No Panel InformationOrdered By: Matt Coy on 02-02-2023 Estimated GFR (MDRD) Amer 106 mL/min >60 [facility] Comment on above: GFR Calc Estimated GFR (MDRD) Non-Af Amer 87 mL/min >60 [facility] Comment on above: Non- GFR Calc Platelets bldOrdered By: Pet kym Coy on 02-02-2023 Platelets (Bld) [#/Vol] 216 10*3/uL 150-450 [facility] Protein Test strip Ql (U)Ord ered By: Matt Coy on 02-02-2023 Protein Ql (U) Negative Negative [facility] Serum or plasma albumin josué urement (mass/volume)Ordered By: Matt Coy on 02-02-2023 Albumin [Mass/Vol] 3.2 g/dL 3.2-5.0 [facility] Serum or plasma albumin/glob ulin mass ratioOrdered By: Matt Coy on 02-02-2023 Albumin/Globulin [Mass ratio] 0.9 {ratio} 0.9-2.4 [facility] Serum or plasma calcium josué urement (mass/volume)Ordered By: Matt Coy on 02-02-2023 Calcium [Mass/Vol] 8.9 mg/dL 8.5-10.1 [facility] Serum or plasma creatinine m easurement (mass/volume)Ordered By: Matt Coy on 02-02-2023 Creatinine [Mass/Vol] 0.68 mg/dL 0.55-1.02 [facility] Comment on above: The validity of the calculated GFR & GFRAA in patients over 70 years has not been determined. Clinical correlation is essential. Serum or plasma urea nitroge n measurement (mass/volume)Ordered By: Matt Coy on 02-02-2023 Urea nitrogen [Mass/Vol] 11 mg/dL 7-18 [facility] Squamous epithelial cells de tection in urine sediment by light microscopyOrdered By: Matt Coy on 02-02-2023 Epithelial cells.squamous LM Ql (Urine sed) 0 SEEN /hpf 5-10 [facility] Thin prep Papanicolaou smear with manual screeningOrdered By: Matt Coy on 02-02-2023 Thin prep Papanicolaou smear with manual screening 18 U/L 15-37 [facility] Thin prep Papanicolaou smear with manual screening 3 5-15 [facility] Urine blood detectionOrdered By: Matt Coy on 02-02-2023 RBC Ql (U) 25 /ul Negative [facility] RBC Ql (U) 0-5 SEEN /hpf 0-5 [facility] Urine clarityOrdered By: Macey Coy on 02-02-2023 Clarity (U) Clear Clear [facility] Urine color determinationOrd ered By: Matt Coy on 02-02-2023 Color (U) Yellow Yellow [facility] Urine glucose detectionOrder ed By: Matt Cyo on 02-02-2023 Glucose Ql (U) Normal mg/dl Normal [facility] Urine leukocyte esterase det ection by dipstickOrdered By: Matt Coy on 02-02-2023 Leukocyte esterase Test strip Ql (U) 25 /ul Negative [facility] Urine pHOrdered By: Matt jacob on 02-02-2023 pH (U) 6.5 [pH] 5.0 - 8.0 [facility] Urine sediment bacteria coun t by microscopy (number/high power field)Ordered By: Matt Coy on 02-02-2023 Bacteria LM.HPF (Urine sed) [#/Area] 0 /[HPF] None Seen [facility] Urine specific gravity measu rementOrdered By: Matt Coy on 02-02-2023 Specific gravity (U) [Rel density] 1.015 1.002-1.03 0 [facility] Urobilinogen Auto test strip Ql (U)Ordered By: Matt Coy on 02-02-2023 Urobilinogen Ql (U) Normal mg/dl Normal [facility] Basophil percentageOrdered B y: Joao Simon on 01-03-2023 Sodium [Moles/Vol] 141 mmol/L 136-145 [facility] WBC (Bld) [#/Vol] 5.7 10*3/uL 4.4-11.0 [facility] Blood erythrocytes count (nu mber/volume)Ordered By: Joao Simon on 01-03-2023 RBC (Bld) [#/Vol] 4.44 10*6/uL 4.2-5.4 [facility] Blood hemoglobin measurement (mass/volume)Ordered By: Joao Simon on 01-03-2023 Hemoglobin (Bld) [Mass/Vol] 13.5 g/dL 12.0-15.0 [facility] Blood platelet mean volumeOr dered By: Joao Simon on 01-03-2023 Platelet mean volume (Bld) [Entitic vol] 10.6 fL 6.2-12.0 [facility] Determination of erythrocyte mean corpuscular volume (MCV)Ordered By: Joao Simon on 01-03-2023 MCV (RBC) [Entitic vol] 96.2 fL 81-99 [facility] Hematocrit Auto (Bld) [Volum e fraction]Ordered By: Joao Simon on 01-03-2023 Hematocrit (Bld) [Volume fraction] 42.7 % 37-47 [facility] INR in Blood by Coagulation assayOrdered By: Joao Simon on 01-03-2023 INR Coag (Bld) [Relative time] 2.0 {INR} [facility] Laboratory - CoagulationOrde red By: Joao Simon on 01-03-2023 PT Coag (PPP) [Time] 23.0 s 11.7-14.9 [facility] Laboratory - Hematology and Cell countsOrdered By: Joao Simon on 01-03-2023 Erythrocyte distribution width (RBC) [Entitic vol] 45.0 fL 35.1-43.9 [facility] Erythrocyte distribution width (RBC) [Ratio] 12.7 % 11.6-14.6 [facility] MCH (RBC) [Entitic mass] 30.4 pg 27.0-32.0 [facility] MCHC Auto (RBC) [Mass/Vol]Or dered By: Joao Simon on 01-03-2023 MCHC (RBC) [Mass/Vol] 31.6 g/dL 32-36 [facility] Platelets bldOrdered By: Brittany Simon on 01-03-2023 Platelets (Bld) [#/Vol] 214 10*3/uL 150-450 [facility] Basophil percentageOrdered B y: Joao Simon on 11-30-2022 Cholesterol [Mass/Vol] 127 mg/dL <200 [facility] Comment on above: <200 mg/dL Desirable 200-240 mg/dL Borderline >240 mg/dL High Risk Sodium [Moles/Vol] 139 mmol/L 136-145 [facility] Triglyceride [Mass/Vol] 73 mg/dL <199 [facility] Comment on above: The drugs N-Acetylcy steine and Metamizole may falsely depress this assay.Serum Triglycerides Reference Interval Normal <150 mg/dL Borderline high 150 - 199 mg/dL High 200 - 499 mg/dL Very High > or = 500 mg/dL INR in Blood by Coagulation assayOrdered By: Joao Simon on 11-30-2022 INR Coag (Bld) [Relative time] 3.3 {INR} [facility] Laboratory - CoagulationOrde red By: Joao Simon on 11-30-2022 PT Coag (PPP) [Time] 34.0 s 11.7-14.9 [facility] Serum or plasma cholesterol in HDL measurement (mass/volume)Ordered By: Joao Simon on 11-30-2022 Cholesterol in HDL [Mass/Vol] 49 mg/dL >40 [facility] Comment on above: The drugs N-Acetylcy steine and Metamizole may falsely depress this assay. Reference Range HDL <40 mg/dL Low HDL Cholesterol HDL >or= 60 mg/dL High HDL Cholesterol Serum or plasma cholesterol in VLDL measurement (mass/volume)Ordered By: Joao Simon on 11-30-2022 Cholesterol in VLDL [Mass/Vol] 15 mg/dL 5-40 [facility] Serum or plasma low density lipoprotein (LDL) cholesterol measurement (mass/volume)Ordered By: Joao Simon on 11-30-2022 Cholesterol in LDL [Mass/Vol] 63 mg/dL 0-130 [facility] Laboratory - CoagulationOrde red By: Joao Simon on 11-16-2022 INR Coag (Bld) [Relative time] 3.0 {INR} [facility] Comment on above: Critical Value > 4.0 Whole blood prothrombin time Ordered By: Joao Simon on 11-16-2022 PT Coag (Bld) [Time] 32.0 s 11.7-14.9 [facility] Basophil percentageOrdered B y: Joao Simon on 11-02-2022 Chloride [Moles/Vol] 108 mmol/L 98-107 [facility] Glucose [Mass/Vol] 120 mg/dL 74-106 [facility] Comment on above: Fasting Glucose resu lt from 100 to 125 mg/dL suggests IMPAIRED HOMEOSTASIS per A.D.A. criteria. Potassium [Moles/Vol] 4.8 mmol/L 3.5-5.1 [facility] Sodium [Moles/Vol] 141 mmol/L 136-145 [facility] WBC (Bld) [#/Vol] 6.2 10*3/uL 4.4-11.0 [facility] Blood erythrocytes count (nu mber/volume)Ordered By: Joao Simon on 11-02-2022 RBC (Bld) [#/Vol] 4.44 10*6/uL 4.2-5.4 [facility] Blood hemoglobin measurement (mass/volume)Ordered By: Joao Simon on 11-02-2022 Hemoglobin (Bld) [Mass/Vol] 13.6 g/dL 12.0-15.0 [facility] Blood platelet mean volumeOr dered By: Joao Simon on 11-02-2022 Platelet mean volume (Bld) [Entitic vol] 10.7 fL 6.2-12.0 [facility] Determination of erythrocyte mean corpuscular volume (MCV)Ordered By: Joao Simon on 11-02-2022 MCV (RBC) [Entitic vol] 95.5 fL 81-99 [facility] Hematocrit Auto (Bld) [Volum e fraction]Ordered By: Joao Simon on 11-02-2022 Hematocrit (Bld) [Volume fraction] 42.4 % 37-47 [facility] INR in Blood by Coagulation assayOrdered By: Joao Simon on 11-02-2022 INR Coag (Bld) [Relative time] 2.9 {INR} [facility] Laboratory - Chemistry and C hemistry - challengeOrdered By: Joao Simon on 11-02-2022 CO2 [Moles/Vol] 30.0 mmol/L 21.0-32.0 [facility] Urea nitrogen/Creatinine [Mass ratio] 14.5 mg/mg 10-20 [facility] Laboratory - CoagulationOrde red By: Joao Simon on 11-02-2022 PT Coag (PPP) [Time] 30.9 s 11.7-14.9 [facility] Laboratory - Hematology and Cell countsOrdered By: Joao Simon on 11-02-2022 Erythrocyte distribution width (RBC) [Entitic vol] 46.2 fL 35.1-43.9 [facility] Erythrocyte distribution width (RBC) [Ratio] 13.1 % 11.6-14.6 [facility] MCH (RBC) [Entitic mass] 30.6 pg 27.0-32.0 [facility] MCHC Auto (RBC) [Mass/Vol]Or dered By: Joao Simon on 11-02-2022 MCHC (RBC) [Mass/Vol] 32.1 g/dL 32-36 [facility] No Panel InformationOrdered By: Joao Simon on 11-02-2022 Estimated GFR (MDRD) Amer 104 mL/min >60 [facility] Comment on above: GFR Calc Estimated GFR (MDRD) Non-Af Amer 86 mL/min >60 [facility] Comment on above: Non- GFR Calc Platelets bldOrdered By: Brittany Simon on 11-02-2022 Platelets (Bld) [#/Vol] 226 10*3/uL 150-450 [facility] Serum or plasma calcium josué urement (mass/volume)Ordered By: Joao Simon on 11-02-2022 Calcium [Mass/Vol] 9.2 mg/dL 8.5-10.1 [facility] Serum or plasma creatinine m easurement (mass/volume)Ordered By: Joao Simon on 11-02-2022 Creatinine [Mass/Vol] 0.69 mg/dL 0.55-1.02 [facility] Comment on above: The validity of the calculated GFR & GFRAA in patients over 70 years has not been determined. Clinical correlation is essential. Serum or plasma urea nitroge n measurement (mass/volume)Ordered By: Joao Simon on 11-02-2022 Urea nitrogen [Mass/Vol] 10 mg/dL 7-18 [facility] Thin prep Papanicolaou smear with manual screeningOrdered By: Joao Simon on 11-02-2022 Thin prep Papanicolaou smear with manual screening 3 5-15 [facility] Basophil percentageOrdered B y: Joao Simon on 10-19-2022 Sodium [Moles/Vol] 140 mmol/L 136-145 [facility] INR in Blood by Coagulation assayOrdered By: Joao Simon on 10-19-2022 INR Coag (Bld) [Relative time] 2.8 {INR} [facility] Laboratory - CoagulationOrde red By: Joao Simon on 10-19-2022 PT Coag (PPP) [Time] 30.0 s 11.7-14.9 [facility] Laboratory - CoagulationOrde red By: Joao Simon on 10-05-2022 INR Coag (Bld) [Relative time] 1.7 {INR} [facility] Comment on above: Critical Value > 4.0 Whole blood prothrombin time Ordered By: Joao Simon on 10-05-2022 PT Coag (Bld) [Time] 19.0 s 11.7-14.9 [facility] Basophil percentageOrdered B y: Joao Simon on 10-03-2022 Chloride [Moles/Vol] 103 mmol/L 98-107 [facility] Glucose [Mass/Vol] 121 mg/dL 74-106 [facility] Comment on above: Fasting Glucose resu lt from 100 to 125 mg/dL suggests IMPAIRED HOMEOSTASIS per A.D.A. criteria. Potassium [Moles/Vol] 4.3 mmol/L 3.5-5.1 [facility] Sodium [Moles/Vol] 136 mmol/L 136-145 [facility] Laboratory - Chemistry and C hemistry - challengeOrdered By: Joao Simon on 10-03-2022 CO2 [Moles/Vol] 29.0 mmol/L 21.0-32.0 [facility] Urea nitrogen/Creatinine [Mass ratio] 17.3 mg/mg 10-20 [facility] No Panel InformationOrdered By: Joao Simon on 10-03-2022 Estimated GFR (MDRD) Amer 104 mL/min >60 [facility] Comment on above: GFR Calc Estimated GFR (MDRD) Non-Af Amer 86 mL/min >60 [facility] Comment on above: Non- GFR Calc Serum or plasma calcium josué urement (mass/volume)Ordered By: Joao Simon on 10-03-2022 Calcium [Mass/Vol] 9.0 mg/dL 8.5-10.1 [facility] Serum or plasma creatinine m easurement (mass/volume)Ordered By: Joao Simon on 10-03-2022 Creatinine [Mass/Vol] 0.69 mg/dL 0.55-1.02 [facility] Comment on above: The validity of the calculated GFR & GFRAA in patients over 70 years has not been determined. Clinical correlation is essential. Serum or plasma urea nitroge n measurement (mass/volume)Ordered By: Joao Simon on 10-03-2022 Urea nitrogen [Mass/Vol] 12 mg/dL 7-18 [facility] Thin prep Papanicolaou smear with manual screeningOrdered By: Joao Simon on 10-03-2022 Thin prep Papanicolaou smear with manual screening 4 5-15 [facility] Laboratory - CoagulationOrde red By: Joao Simon on 09-28-2022 INR Coag (Bld) [Relative time] 2.2 {INR} [facility] Comment on above: Critical Value > 4.0 Whole blood prothrombin time Ordered By: Joao Simon on 09-28-2022 PT Coag (Bld) [Time] 24.4 s 11.7-14.9 [facility] Basophil percentageOrdered B y: Joao Simon on 09-20-2022 Chloride [Moles/Vol] 96 mmol/L 98-107 [facility] Glucose [Mass/Vol] 94 mg/dL 74-106 [facility] Potassium [Moles/Vol] 4.4 mmol/L 3.5-5.1 [facility] Sodium [Moles/Vol] 132 mmol/L 136-145 [facility] WBC (Bld) [#/Vol] 6.7 10*3/uL 4.4-11.0 [facility] Blood erythrocytes count (nu mber/volume)Ordered By: Joao Simon on 09-20-2022 RBC (Bld) [#/Vol] 4.21 10*6/uL 4.2-5.4 [facility] Blood hemoglobin measurement (mass/volume)Ordered By: Joao Simon on 09-20-2022 Hemoglobin (Bld) [Mass/Vol] 13.0 g/dL 12.0-15.0 [facility] Blood platelet mean volumeOr dered By: Joao Simon on 09-20-2022 Platelet mean volume (Bld) [Entitic vol] 10.2 fL 6.2-12.0 [facility] Determination of erythrocyte mean corpuscular volume (MCV)Ordered By: Joao Simon on 09-20-2022 MCV (RBC) [Entitic vol] 91.0 fL 81-99 [facility] Hematocrit Auto (Bld) [Volum e fraction]Ordered By: Joao Simon on 09-20-2022 Hematocrit (Bld) [Volume fraction] 38.3 % 37-47 [facility] Laboratory - Chemistry and C hemistry - challengeOrdered By: Joao Simon on 09-20-2022 CO2 [Moles/Vol] 33.0 mmol/L 21.0-32.0 [facility] Urea nitrogen/Creatinine [Mass ratio] 12.7 mg/mg 10-20 [facility] Laboratory - Hematology and Cell countsOrdered By: Joao Simon on 09-20-2022 Erythrocyte distribution width (RBC) [Entitic vol] 40.4 fL 35.1-43.9 [facility] Erythrocyte distribution width (RBC) [Ratio] 12.1 % 11.6-14.6 [facility] MCH (RBC) [Entitic mass] 30.9 pg 27.0-32.0 [facility] MCHC Auto (RBC) [Mass/Vol]Or dered By: Joao Simon on 09-20-2022 MCHC (RBC) [Mass/Vol] 33.9 g/dL 32-36 [facility] No Panel InformationOrdered By: Joao Simon on 09-20-2022 Estimated GFR (MDRD) Amer 89 mL/min >60 [facility] Comment on above: GFR Calc Estimated GFR (MDRD) Non-Af Amer 74 mL/min >60 [facility] Comment on above: Non- GFR Calc Platelets bldOrdered By: Brittany Simon on 09-20-2022 Platelets (Bld) [#/Vol] 229 10*3/uL 150-450 [facility] Serum or plasma calcium josué urement (mass/volume)Ordered By: Joao Simon on 09-20-2022 Calcium [Mass/Vol] 8.8 mg/dL 8.5-10.1 [facility] Serum or plasma creatinine m easurement (mass/volume)Ordered By: Joao Simon on 09-20-2022 Creatinine [Mass/Vol] 0.79 mg/dL 0.55-1.02 [facility] Comment on above: The validity of the calculated GFR & GFRAA in patients over 70 years has not been determined. Clinical correlation is essential. Serum or plasma urea nitroge n measurement (mass/volume)Ordered By: Joao Simon on 09-20-2022 Urea nitrogen [Mass/Vol] 10 mg/dL 7-18 [facility] Thin prep Papanicolaou smear with manual screeningOrdered By: Joao Simon on 09-20-2022 Thin prep Papanicolaou smear with manual screening 3 5-15 [facility] Culture, urineOrdered By: Rodrick Simon on 09-17-2022 Bacteria identified Cx Nom (U) Positive [facility] Bilirubin Test strip Ql (U)O rdered By: Joao Simon on 09-16-2022 Bilirubin Ql (U) Negative Negative [facility] Culture, urineOrdered By: Rodrick Simon on 09-16-2022 Bacteria identified Cx Nom (U) Positive [facility] Ketones Test strip Ql (U)Ord ered By: Joao Simon on 09-16-2022 Ketones Ql (U) Negative Negative [facility] Nitrite Test strip Ql (U)Ord ered By: Joao Simon on 09-16-2022 Nitrite Ql (U) Negative Negative [facility] Protein Test strip Ql (U)Ord ered By: Joao Simon on 09-16-2022 Protein Ql (U) 15 mg/dl Negative [facility] Urine blood detectionOrdered By: Joao Simon on 09-16-2022 RBC Ql (U) 10 /ul Negative [facility] Urine clarityOrdered By: Brittany Simon on 09-16-2022 Clarity (U) Sl. Cloudy Clear [facility] Urine color determinationOrd ered By: Joao Simon on 09-16-2022 Color (U) Yellow Yellow [facility] Urine glucose detectionOrder ed By: Joao Simon on 09-16-2022 Glucose Ql (U) Normal mg/dl Normal [facility] Urine leukocyte esterase det ection by dipstickOrdered By: Joao Simon on 09-16-2022 Leukocyte esterase Test strip Ql (U) 500 /ul Negative [facility] Urine pHOrdered By: Joao almeida on 09-16-2022 pH (U) 6.0 [pH] 5.0 - 8.0 [facility] Urine specific gravity measu rementOrdered By: Joao Simon on 09-16-2022 Specific gravity (U) [Rel density] 1.020 1.002-1.03 0 [facility] Urobilinogen Auto test strip Ql (U)Ordered By: Joao Simon on 09-16-2022 Urobilinogen Ql (U) Normal mg/dl Normal [facility] Basophil percentageOrdered B y: Hortensia Unger on 08-29-2022 Cholesterol [Mass/Vol] 126 mg/dL <200 [facility] Comment on above: <200 mg/dL Desirable 200-240 mg/dL Borderline >240 mg/dL High Risk Triglyceride [Mass/Vol] 105 mg/dL <199 [facility] Comment on above: The drugs N-Acetylcy steine and Metamizole may falsely depress this assay.Serum Triglycerides Reference Interval Normal <150 mg/dL Borderline high 150 - 199 mg/dL High 200 - 499 mg/dL Very High > or = 500 mg/dL WBC (Bld) [#/Vol] 6.4 10*3/uL 4.4-11.0 [facility] Blood erythrocytes count (nu mber/volume)Ordered By: Hortensia Unger on 08-29-2022 RBC (Bld) [#/Vol] 4.38 10*6/uL 4.2-5.4 [facility] Blood hemoglobin measurement (mass/volume)Ordered By: Hortensia Unger on 08-29-2022 Hemoglobin (Bld) [Mass/Vol] 13.4 g/dL 12.0-15.0 [facility] Blood platelet mean volumeOr dered By: Hortensia Unger on 08-29-2022 Platelet mean volume (Bld) [Entitic vol] 10.0 fL 6.2-12.0 [facility] Determination of erythrocyte mean corpuscular volume (MCV)Ordered By: Hortensia Unger on 08-29-2022 MCV (RBC) [Entitic vol] 92.9 fL 81-99 [facility] Hematocrit Auto (Bld) [Volum e fraction]Ordered By: Hortensia Unger on 08-29-2022 Hematocrit (Bld) [Volume fraction] 40.7 % 37-47 [facility] INR in Blood by Coagulation assayOrdered By: Hortensia Unger on 08-29-2022 INR Coag (Bld) [Relative time] 1.9 {INR} [facility] Laboratory - CoagulationOrde red By: Hortensia Unger on 08-29-2022 PT Coag (PPP) [Time] 21.3 s 11.7-14.9 [facility] Laboratory - Hematology and Cell countsOrdered By: Hortensia Unger on 08-29-2022 Erythrocyte distribution width (RBC) [Entitic vol] 42.1 fL 35.1-43.9 [facility] Erythrocyte distribution width (RBC) [Ratio] 12.3 % 11.6-14.6 [facility] MCH (RBC) [Entitic mass] 30.6 pg 27.0-32.0 [facility] MCHC Auto (RBC) [Mass/Vol]Or dered By: Hortensia Unger on 08-29-2022 MCHC (RBC) [Mass/Vol] 32.9 g/dL 32-36 [facility] Platelets bldOrdered By: Hortensia Unger on 08-29-2022 Platelets (Bld) [#/Vol] 215 10*3/uL 150-450 [facility] Serum or plasma cholesterol in HDL measurement (mass/volume)Ordered By: Hortensia Unger on 08-29-2022 Cholesterol in HDL [Mass/Vol] 48 mg/dL >40 [facility] Comment on above: The drugs N-Acetylcy steine and Metamizole may falsely depress this assay. Reference Range HDL <40 mg/dL Low HDL Cholesterol HDL >or= 60 mg/dL High HDL Cholesterol Serum or plasma cholesterol in VLDL measurement (mass/volume)Ordered By: Hortensia Unger on 08-29-2022 Cholesterol in VLDL [Mass/Vol] 21 mg/dL 5-40 [facility] Serum or plasma low density lipoprotein (LDL) cholesterol measurement (mass/volume)Ordered By: Hortensia Unger on 08-29-2022 Cholesterol in LDL [Mass/Vol] 57 mg/dL 0-130 [facility] Basophil percentageOrdered B y: Hortensia Unger on 08-08-2022 Sodium [Moles/Vol] 137 mmol/L 136-145 [facility] Basophil percentageOrdered B y: Hortensia Unger on 07-28-2022 Bilirubin [Mass/Vol] 0.30 mg/dL 0.20-1.00 [facility] Comment on above: For patients on eltr ombopag therapy, use of Dimension [place] TBIL is not recommended. Chloride [Moles/Vol] 95 mmol/L 98-107 [facility] Glucose [Mass/Vol] 118 mg/dL 74-106 [facility] Comment on above: Fasting Glucose resu lt from 100 to 125 mg/dL suggests IMPAIRED HOMEOSTASIS per A.D.A. criteria. Potassium [Moles/Vol] 3.5 mmol/L 3.5-5.1 [facility] Protein [Mass/Vol] 7.0 g/dL 6.4-8.2 [facility] Sodium [Moles/Vol] 135 mmol/L 136-145 [facility] WBC (Bld) [#/Vol] 6.4 10*3/uL 4.4-11.0 [facility] Blood erythrocytes count (nu mber/volume)Ordered By: Hortensia Unger on 07-28-2022 RBC (Bld) [#/Vol] 4.56 10*6/uL 4.2-5.4 [facility] Blood hemoglobin measurement (mass/volume)Ordered By: Hortensia Unger on 07-28-2022 Hemoglobin (Bld) [Mass/Vol] 14.0 g/dL 12.0-15.0 [facility] Blood platelet mean volumeOr dered By: Hortensia Unger on 07-28-2022 Platelet mean volume (Bld) [Entitic vol] 10.4 fL 6.2-12.0 [facility] Determination of erythrocyte mean corpuscular volume (MCV)Ordered By: Hortensia Unger on 07-28-2022 MCV (RBC) [Entitic vol] 93.9 fL 81-99 [facility] Hematocrit Auto (Bld) [Volum e fraction]Ordered By: Hortensia Unger on 07-28-2022 Hematocrit (Bld) [Volume fraction] 42.8 % 37-47 [facility] INR in Blood by Coagulation assayOrdered By: Hortensia Unger on 07-28-2022 INR Coag (Bld) [Relative time] 1.7 {INR} [facility] Laboratory - Chemistry and C hemistry - challengeOrdered By: Hortensia Unger on 07-28-2022 ALP [Catalytic activity/Vol] 65 U/L 45-117 [facility] ALT [Catalytic activity/Vol] 25 U/L 13-56 [facility] CO2 [Moles/Vol] 31.0 mmol/L 21.0-32.0 [facility] Globulin (S) [Mass/Vol] 3.7 g/dL 2.2-4.2 [facility] Urea nitrogen/Creatinine [Mass ratio] 14.2 mg/mg 10-20 [facility] Laboratory - CoagulationOrde red By: Hrotensia Unger on 07-28-2022 PT Coag (PPP) [Time] 19.5 s 11.7-14.9 [facility] Laboratory - Hematology and Cell countsOrdered By: Hortensia Unger on 07-28-2022 Erythrocyte distribution width (RBC) [Entitic vol] 42.4 fL 35.1-43.9 [facility] Erythrocyte distribution width (RBC) [Ratio] 12.2 % 11.6-14.6 [facility] MCH (RBC) [Entitic mass] 30.7 pg 27.0-32.0 [facility] MCHC Auto (RBC) [Mass/Vol]Or dered By: Hortensia Unger on 03-02-2023 MCHC (RBC) [Mass/Vol] 32.7 g/dL 32-36 [facility] No Panel InformationOrdered By: Hortensia Unger on 07-28-2022 Estimated GFR (MDRD) Amer 101 mL/min >60 [facility] Comment on above: GFR Calc Estimated GFR (MDRD) Non-Af Amer 84 mL/min >60 [facility] Comment on above: Non- GFR Calc Platelets bldOrdered By: Hortensia Unger on 07-28-2022 Platelets (Bld) [#/Vol] 234 10*3/uL 150-450 [facility] Serum or plasma albumin josué urement (mass/volume)Ordered By: Hortensia Unger on 07-28-2022 Albumin [Mass/Vol] 3.3 g/dL 3.2-5.0 [facility] Serum or plasma albumin/glob ulin mass ratioOrdered By: Hortensia Unger on 07-28-2022 Albumin/Globulin [Mass ratio] 0.9 {ratio} 0.9-2.4 [facility] Serum or plasma calcium josué urement (mass/volume)Ordered By: Hortensia Unger on 07-28-2022 Calcium [Mass/Vol] 8.7 mg/dL 8.5-10.1 [facility] Serum or plasma creatinine m easurement (mass/volume)Ordered By: Hortensia Unger on 07-28-2022 Creatinine [Mass/Vol] 0.70 mg/dL 0.55-1.02 [facility] Comment on above: The validity of the calculated GFR & GFRAA in patients over 70 years has not been determined. Clinical correlation is essential. Serum or plasma urea nitroge n measurement (mass/volume)Ordered By: Hortensia Unger on 07-28-2022 Urea nitrogen [Mass/Vol] 10 mg/dL 7-18 [facility] Thin prep Papanicolaou smear with manual screeningOrdered By: Hortensia Unger on 07-28-2022 Thin prep Papanicolaou smear with manual screening 23 U/L 15-37 [facility] Thin prep Papanicolaou smear with manual screening 9 5-15 [facility] Basophil percentageOrdered B y: Hortensia Unger on 07-11-2022 Bilirubin [Mass/Vol] 0.50 mg/dL 0.20-1.00 [facility] Comment on above: For patients on eltr ombopag therapy, use of Dimension [place] TBIL is not recommended. Chloride [Moles/Vol] 100 mmol/L 98-107 [facility] Glucose [Mass/Vol] 120 mg/dL 74-106 [facility] Comment on above: Fasting Glucose resu lt from 100 to 125 mg/dL suggests IMPAIRED HOMEOSTASIS per A.D.A. criteria. Potassium [Moles/Vol] 3.8 mmol/L 3.5-5.1 [facility] Protein [Mass/Vol] 7.0 g/dL 6.4-8.2 [facility] Sodium [Moles/Vol] 136 mmol/L 136-145 [facility] WBC (Bld) [#/Vol] 6.2 10*3/uL 4.4-11.0 [facility] Blood erythrocytes count (nu mber/volume)Ordered By: Hortensia Unger on 07-11-2022 RBC (Bld) [#/Vol] 4.39 10*6/uL 4.2-5.4 [facility] Blood hemoglobin measurement (mass/volume)Ordered By: Hortensia Unger on 07-11-2022 Hemoglobin (Bld) [Mass/Vol] 13.4 g/dL 12.0-15.0 [facility] Blood platelet mean volumeOr dered By: Hortensia Unger on 07-11-2022 Platelet mean volume (Bld) [Entitic vol] 10.5 fL 6.2-12.0 [facility] Determination of erythrocyte mean corpuscular volume (MCV)Ordered By: Hortensia Unger on 07-11-2022 MCV (RBC) [Entitic vol] 93.2 fL 81-99 [facility] Hematocrit Auto (Bld) [Volum e fraction]Ordered By: Hortensia Unger on 07-11-2022 Hematocrit (Bld) [Volume fraction] 40.9 % 37-47 [facility] Laboratory - Chemistry and C hemistry - challengeOrdered By: Hortensia Unger on 07-11-2022 ALP [Catalytic activity/Vol] 61 U/L 45-117 [facility] ALT [Catalytic activity/Vol] 21 U/L 13-56 [facility] CO2 [Moles/Vol] 30.0 mmol/L 21.0-32.0 [facility] Globulin (S) [Mass/Vol] 3.6 g/dL 2.2-4.2 [facility] Urea nitrogen/Creatinine [Mass ratio] 13.6 mg/mg 10-20 [facility] Laboratory - Hematology and Cell countsOrdered By: Hortensia Unger on 07-11-2022 Erythrocyte distribution width (RBC) [Entitic vol] 42.7 fL 35.1-43.9 [facility] Erythrocyte distribution width (RBC) [Ratio] 12.5 % 11.6-14.6 [facility] MCH (RBC) [Entitic mass] 30.5 pg 27.0-32.0 [facility] MCHC Auto (RBC) [Mass/Vol]Or dered By: Hortensia Unger on 07-11-2022 MCHC (RBC) [Mass/Vol] 32.8 g/dL 32-36 [facility] No Panel InformationOrdered By: Hortensia Unger on 07-11-2022 Estimated GFR (MDRD) Amer 87 mL/min >60 [facility] Comment on above: GFR Calc Estimated GFR (MDRD) Non-Af Amer 72 mL/min >60 [facility] Comment on above: Non- GFR Calc Platelets bldOrdered By: Hortensia Unger on 07-11-2022 Platelets (Bld) [#/Vol] 224 10*3/uL 150-450 [facility] Serum or plasma albumin josué urement (mass/volume)Ordered By: Hortensia Unger on 07-11-2022 Albumin [Mass/Vol] 3.4 g/dL 3.2-5.0 [facility] Serum or plasma albumin/glob ulin mass ratioOrdered By: Hortensia Unger on 07-11-2022 Albumin/Globulin [Mass ratio] 0.9 {ratio} 0.9-2.4 [facility] Serum or plasma calcium josué urement (mass/volume)Ordered By: Hortensia Unger on 07-11-2022 Calcium [Mass/Vol] 8.9 mg/dL 8.5-10.1 [facility] Serum or plasma creatinine m easurement (mass/volume)Ordered By: Hortensia Unger on 07-11-2022 Creatinine [Mass/Vol] 0.81 mg/dL 0.55-1.02 [facility] Comment on above: The validity of the calculated GFR & GFRAA in patients over 70 years has not been determined. Clinical correlation is essential. Serum or plasma urea nitroge n measurement (mass/volume)Ordered By: Hortensia Unger on 07-11-2022 Urea nitrogen [Mass/Vol] 11 mg/dL 7-18 [facility] Thin prep Papanicolaou smear with manual screeningOrdered By: Hortensia Unger on 07-11-2022 Thin prep Papanicolaou smear with manual screening 23 U/L 15-37 [facility] Thin prep Papanicolaou smear with manual screening 6 5-15 [facility] Basophil percentageOrdered B y: Hortensia Unger on 07-01-2022 Bilirubin [Mass/Vol] 0.40 mg/dL 0.20-1.00 [facility] Comment on above: For patients on eltr ombopag therapy, use of Dimension [place] TBIL is not recommended. Chloride [Moles/Vol] 101 mmol/L 98-107 [facility] Glucose [Mass/Vol] 151 mg/dL 74-106 [facility] Comment on above: Fasting Glucose resu lt greater than or equal to 126 mg/dL suggests DIABETES MELLITUS per A.D.A. criteria. Potassium [Moles/Vol] 4.2 mmol/L 3.5-5.1 [facility] Protein [Mass/Vol] 6.3 g/dL 6.4-8.2 [facility] Sodium [Moles/Vol] 137 mmol/L 136-145 [facility] WBC (Bld) [#/Vol] 5.1 10*3/uL 4.4-11.0 [facility] Blood erythrocytes count (nu mber/volume)Ordered By: Hortensia Unegr on 07-01-2022 RBC (Bld) [#/Vol] 4.03 10*6/uL 4.2-5.4 [facility] Blood hemoglobin measurement (mass/volume)Ordered By: Hortensia Unger on 07-01-2022 Hemoglobin (Bld) [Mass/Vol] 12.7 g/dL 12.0-15.0 [facility] Blood platelet mean volumeOr dered By: Hortensia Unger on 07-01-2022 Platelet mean volume (Bld) [Entitic vol] 10.1 fL 6.2-12.0 [facility] Determination of erythrocyte mean corpuscular volume (MCV)Ordered By: Hortensia Unger on 07-01-2022 MCV (RBC) [Entitic vol] 92.1 fL 81-99 [facility] Hematocrit Auto (Bld) [Volum e fraction]Ordered By: Hortensia Unger on 07-01-2022 Hematocrit (Bld) [Volume fraction] 37.1 % 37-47 [facility] INR in Blood by Coagulation assayOrdered By: Hortensia Unger on 07-01-2022 INR Coag (Bld) [Relative time] 2.0 {INR} [facility] Laboratory - Chemistry and C hemistry - challengeOrdered By: Hortensia Unger on 07-01-2022 ALP [Catalytic activity/Vol] 55 U/L 45-117 [facility] ALT [Catalytic activity/Vol] 20 U/L 13-56 [facility] CO2 [Moles/Vol] 30.0 mmol/L 21.0-32.0 [facility] Globulin (S) [Mass/Vol] 3.3 g/dL 2.2-4.2 [facility] Urea nitrogen/Creatinine [Mass ratio] 21.0 mg/mg 10-20 [facility] Laboratory - CoagulationOrde red By: Hortensia Unger on 07-01-2022 PT Coag (PPP) [Time] 22.0 s 11.7-14.9 [facility] Laboratory - Hematology and Cell countsOrdered By: Hortensia Unger on 07-01-2022 Erythrocyte distribution width (RBC) [Entitic vol] 42.5 fL 35.1-43.9 [facility] Erythrocyte distribution width (RBC) [Ratio] 12.5 % 11.6-14.6 [facility] MCH (RBC) [Entitic mass] 31.5 pg 27.0-32.0 [facility] MCHC Auto (RBC) [Mass/Vol]Or dered By: Hortensia Unger on 07-01-2022 MCHC (RBC) [Mass/Vol] 34.2 g/dL 32-36 [facility] No Panel InformationOrdered By: Hortensia Unger on 07-01-2022 Estimated GFR (MDRD) Amer 108 mL/min >60 [facility] Comment on above: GFR Calc Estimated GFR (MDRD) Non-Af Amer 89 mL/min >60 [facility] Comment on above: Non- GFR Calc Platelets bldOrdered By: Hortensia Unger on 07-01-2022 Platelets (Bld) [#/Vol] 208 10*3/uL 150-450 [facility] Serum or plasma albumin josué urement (mass/volume)Ordered By: Hortensia Unger on 07-01-2022 Albumin [Mass/Vol] 3.0 g/dL 3.2-5.0 [facility] Serum or plasma albumin/glob ulin mass ratioOrdered By: Hortensia Unger on 07-01-2022 Albumin/Globulin [Mass ratio] 0.9 {ratio} 0.9-2.4 [facility] Serum or plasma calcium josué urement (mass/volume)Ordered By: Hortensia Unger on 07-01-2022 Calcium [Mass/Vol] 8.6 mg/dL 8.5-10.1 [facility] Serum or plasma creatinine m easurement (mass/volume)Ordered By: Hortensia Unger on 07-01-2022 Creatinine [Mass/Vol] 0.67 mg/dL 0.55-1.02 [facility] Comment on above: The validity of the calculated GFR & GFRAA in patients over 70 years has not been determined. Clinical correlation is essential. Serum or plasma urea nitroge n measurement (mass/volume)Ordered By: Hortensia Unger on 07-01-2022 Urea nitrogen [Mass/Vol] 14 mg/dL 7-18 [facility] Thin prep Papanicolaou smear with manual screeningOrdered By: Hortensia Unger on 07-01-2022 Thin prep Papanicolaou smear with manual screening 22 U/L 15-37 [facility] Thin prep Papanicolaou smear with manual screening 6 5-15 [facility] Basophil percentageOrdered B y: Dr. Stephens on 06-17-2022 Cholesterol [Mass/Vol] 112 mg/dL <200 [facility] Comment on above: <200 mg/dL Desirable 200-240 mg/dL Borderline >240 mg/dL High Risk Triglyceride [Mass/Vol] 78 mg/dL <199 [facility] Comment on above: The drugs N-Acetylcy steine and Metamizole may falsely depress this assay.Serum Triglycerides Reference Interval Normal <150 mg/dL Borderline high 150 - 199 mg/dL High 200 - 499 mg/dL Very High > or = 500 mg/dL INR in Blood by Coagulation assayOrdered By: Dr. Stephens on 06-17-2022 INR Coag (Bld) [Relative time] 1.8 {INR} [facility] Laboratory - CoagulationOrde red By: Dr. Stephens on 06-17-2022 PT Coag (PPP) [Time] 20.2 s 11.7-14.9 [facility] Serum or plasma cholesterol in HDL measurement (mass/volume)Ordered By: Dr. Stephens on 06-17-2022 Cholesterol in HDL [Mass/Vol] 45 mg/dL >40 [facility] Comment on above: The drugs N-Acetylcy steine and Metamizole may falsely depress this assay. Reference Range HDL <40 mg/dL Low HDL Cholesterol HDL >or= 60 mg/dL High HDL Cholesterol Serum or plasma cholesterol in VLDL measurement (mass/volume)Ordered By: Dr. Stephens on 06-17-2022 Cholesterol in VLDL [Mass/Vol] 16 mg/dL 5-40 [facility] Serum or plasma low density lipoprotein (LDL) cholesterol measurement (mass/volume)Ordered By: Dr. Stephens on 06-17-2022 Cholesterol in LDL [Mass/Vol] 51 mg/dL 0-130 [facility] Absolute lymphocyte countOrd ered By: Dr. Davis on 06-16-2022 Lymphocytes Auto (Unsp spec) [#/Vol] 1.94 10*3/uL 0.83-4.51 [facility] Basophil percentageOrdered B y: Dr. Davis on 06-16-2022 Basophils/100 WBC (Bld) 0.8 % 0-1 [facility] Chloride [Moles/Vol] 99 mmol/L 98-107 [facility] Eosinophils/100 WBC (Bld) 3.9 % 0-5 [facility] Glucose [Mass/Vol] 98 mg/dL 74-106 [facility] Neutrophils (Bld) [#/Vol] 3.6 10*3/uL 2.0-7.7 [facility] Neutrophils/100 WBC (Bld) 56.3 % 47-70 [facility] Potassium [Moles/Vol] 4.2 mmol/L 3.5-5.1 [facility] Sodium [Moles/Vol] 135 mmol/L 136-145 [facility] WBC (Bld) [#/Vol] 6.4 10*3/uL 4.4-11.0 [facility] Blood erythrocytes count (nu mber/volume)Ordered By: Dr. Davis on 06-16-2022 RBC (Bld) [#/Vol] 4.32 10*6/uL 4.2-5.4 [facility] Blood hemoglobin measurement (mass/volume)Ordered By: Dr. Davis on 06-16-2022 Hemoglobin (Bld) [Mass/Vol] 13.1 g/dL 12.0-15.0 [facility] Blood lymphocytes/100 leukoc ytesOrdered By: Dr. Davis on 06-16-2022 Lymphocytes/100 WBC (Bld) 30.6 % 19-41 [facility] Blood monocytes/100 leukocyt esOrdered By: Dr. Davis on 06-16-2022 Monocytes/100 WBC (Bld) 8.2 % 0-10 [facility] Blood platelet mean volumeOr dered By: Dr. Davis on 06-16-2022 Platelet mean volume (Bld) [Entitic vol] 10.1 fL 6.2-12.0 [facility] Determination of erythrocyte mean corpuscular volume (MCV)Ordered By: Dr. Davis on 06-16-2022 MCV (RBC) [Entitic vol] 91.4 fL 81-99 [facility] Hematocrit Auto (Bld) [Volum e fraction]Ordered By: Dr. Davis on 06-16-2022 Hematocrit (Bld) [Volume fraction] 39.5 % 37-47 [facility] INR in Blood by Coagulation assayOrdered By: Dr. Davis on 06-16-2022 INR Coag (Bld) [Relative time] 1.9 {INR} [facility] Laboratory - Chemistry and C hemistry - challengeOrdered By: Dr. Davis on 06-16-2022 CO2 [Moles/Vol] 32.0 mmol/L 21.0-32.0 [facility] Urea nitrogen/Creatinine [Mass ratio] 16.8 mg/mg 10-20 [facility] Laboratory - CoagulationOrde red By: Dr. Davis on 06-16-2022 aPTT Coag (Bld) [Time] 30.2 s 24.1-36.2 [facility] PT Coag (PPP) [Time] 21.0 s 11.7-14.9 [facility] Laboratory - Hematology and Cell countsOrdered By: Dr. Davis on 06-16-2022 Erythrocyte distribution width (RBC) [Entitic vol] 41.0 fL 35.1-43.9 [facility] Erythrocyte distribution width (RBC) [Ratio] 12.3 % 11.6-14.6 [facility] Immature granulocytes/100 WBC (Bld) 0.200 % 0.0-0.9 [facility] Comment on above: IG% - Immature Granu locytes (promyelocytes, myelocytes and metamyelocytes) > 1% indicates that a LEFT SHIFT is Present. MCH (RBC) [Entitic mass] 30.3 pg 27.0-32.0 [facility] Nucleated RBC/100 WBC (Bld) [Ratio] 0 % 0-5 [facility] MCHC Auto (RBC) [Mass/Vol]Or dered By: Dr. Davis on 06-16-2022 MCHC (RBC) [Mass/Vol] 33.2 g/dL 32-36 [facility] No Panel InformationOrdered By: Dr. Davis on 06-16-2022 Estimated Creatinine Clearance Calc 31.60 ml/min [facility] Estimated GFR (MDRD) Amer 100 mL/min >60 [facility] Comment on above: GFR Calc Estimated GFR (MDRD) Non-Af Amer 83 mL/min >60 [facility] Comment on above: Non- GFR Calc Troponin I High Sensitivity 9 pg/mL 3.0-54.0 [facility] Comment on above: Please Note: New Amber t Units and Gender Specific Reference Ranges. For more information see Policy Stat Procedure [place] High Sensitivity Troponin (TNIH) and attachments. Platelets bldOrdered By: Dr. Davis on 06-16-2022 Platelets (Bld) [#/Vol] 233 10*3/uL 150-450 [facility] Serum or plasma calcium josué urement (mass/volume)Ordered By: Dr. Davis on 06-16-2022 Calcium [Mass/Vol] 8.9 mg/dL 8.5-10.1 [facility] Serum or plasma creatinine m easurement (mass/volume)Ordered By: Dr. Davis on 06-16-2022 Creatinine [Mass/Vol] 0.72 mg/dL 0.55-1.02 [facility] Comment on above: The validity of the calculated GFR & GFRAA in patients over 70 years has not been determined. Clinical correlation is essential. Serum or plasma urea nitroge n measurement (mass/volume)Ordered By: Dr. Davis on 06-16-2022 Urea nitrogen [Mass/Vol] 12 mg/dL 7-18 [facility] Thin prep Papanicolaou smear with manual screeningOrdered By: Dr. Davis on 06-16-2022 Thin prep Papanicolaou smear with manual screening 4 5-15 [facility] Basophil percentageOrdered B y: Hortensia Ute on 06-06-2022 Bilirubin [Mass/Vol] 0.30 mg/dL 0.20-1.00 [facility] Comment on above: For patients on eltr ombopag therapy, use of Dimension [place] TBIL is not recommended. Chloride [Moles/Vol] 101 mmol/L 98-107 [facility] Cholesterol [Mass/Vol] 111 mg/dL <200 [facility] Comment on above: <200 mg/dL Desirable 200-240 mg/dL Borderline >240 mg/dL High Risk Glucose [Mass/Vol] 93 mg/dL 74-106 [facility] Potassium [Moles/Vol] 4.0 mmol/L 3.5-5.1 [facility] Protein [Mass/Vol] 6.0 g/dL 6.4-8.2 [facility] Sodium [Moles/Vol] 140 mmol/L 136-145 [facility] Triglyceride [Mass/Vol] 51 mg/dL <199 [facility] Comment on above: The drugs N-Acetylcy steine and Metamizole may falsely depress this assay.Serum Triglycerides Reference Interval Normal <150 mg/dL Borderline high 150 - 199 mg/dL High 200 - 499 mg/dL Very High > or = 500 mg/dL WBC (Bld) [#/Vol] 5.9 10*3/uL 4.4-11.0 [facility] Blood erythrocytes count (nu mber/volume)Ordered By: Hortensia Unger on 06-06-2022 RBC (Bld) [#/Vol] 3.99 10*6/uL 4.2-5.4 [facility] Blood hemoglobin measurement (mass/volume)Ordered By: Hortensia Unger on 06-06-2022 Hemoglobin (Bld) [Mass/Vol] 12.2 g/dL 12.0-15.0 [facility] Blood platelet mean volumeOr dered By: Hortensia Unger on 06-06-2022 Platelet mean volume (Bld) [Entitic vol] 10.5 fL 6.2-12.0 [facility] Determination of erythrocyte mean corpuscular volume (MCV)Ordered By: Hortensia Unger on 06-06-2022 MCV (RBC) [Entitic vol] 92.7 fL 81-99 [facility] Hematocrit Auto (Bld) [Volum e fraction]Ordered By: Hortensia Unger on 06-06-2022 Hematocrit (Bld) [Volume fraction] 37.0 % 37-47 [facility] INR in Blood by Coagulation assayOrdered By: Hortensia Unger on 06-06-2022 INR Coag (Bld) [Relative time] 2.1 {INR} [facility] Laboratory - Chemistry and C hemistry - challengeOrdered By: Hortensia Unger on 06-06-2022 ALP [Catalytic activity/Vol] 54 U/L 45-117 [facility] ALT [Catalytic activity/Vol] 25 U/L 13-56 [facility] CO2 [Moles/Vol] 31.0 mmol/L 21.0-32.0 [facility] Globulin (S) [Mass/Vol] 3.1 g/dL 2.2-4.2 [facility] Urea nitrogen/Creatinine [Mass ratio] 19.7 mg/mg 10-20 [facility] Laboratory - CoagulationOrde red By: Hortensia Unger on 06-06-2022 PT Coag (PPP) [Time] 23.1 s 11.7-14.9 [facility] - Hematology and Cell countsOrdered By: Hortensia Unger on 06-06-2022 Erythrocyte distribution width (RBC) [Entitic vol] 43.4 fL 35.1-43.9 [facility] Erythrocyte distribution width (RBC) [Ratio] 12.7 % 11.6-14.6 [facility] MCH (RBC) [Entitic mass] 30.6 pg 27.0-32.0 [facility] MCHC Auto (RBC) [Mass/Vol]Or dered By: Hortensia Unger on 06-06-2022 MCHC (RBC) [Mass/Vol] 33.0 g/dL 32-36 [facility] No Panel InformationOrdered By: Hortensia Unger on 06-06-2022 Estimated GFR (MDRD) Amer 93 mL/min >60 [facility] Comment on above: GFR Calc Estimated GFR (MDRD) Non-Af Amer 77 mL/min >60 [facility] Comment on above: Non- GFR Calc Platelets bldOrdered By: Hortensia Unger on 06-06-2022 Platelets (Bld) [#/Vol] 214 10*3/uL 150-450 [facility] Serum or plasma albumin josué urement (mass/volume)Ordered By: Hortensia Unger on 06-06-2022 Albumin [Mass/Vol] 2.9 g/dL 3.2-5.0 [facility] Serum or plasma albumin/glob ulin mass ratioOrdered By: Hortensia Unger on 06-06-2022 Albumin/Globulin [Mass ratio] 0.9 {ratio} 0.9-2.4 [facility] Serum or plasma calcium josué urement (mass/volume)Ordered By: Hortensia Unger on 06-06-2022 Calcium [Mass/Vol] 8.3 mg/dL 8.5-10.1 [facility] Serum or plasma cholesterol in HDL measurement (mass/volume)Ordered By: Hortensia Unger on 06-06-2022 Cholesterol in HDL [Mass/Vol] 47 mg/dL >40 [facility] Comment on above: The drugs N-Acetylcy steine and Metamizole may falsely depress this assay. Reference Range HDL <40 mg/dL Low HDL Cholesterol HDL >or= 60 mg/dL High HDL Cholesterol Serum or plasma cholesterol in VLDL measurement (mass/volume)Ordered By: Hortensia Unger on 06-06-2022 Cholesterol in VLDL [Mass/Vol] 10 mg/dL 5-40 [facility] Serum or plasma creatinine m easurement (mass/volume)Ordered By: Hortensia Unger on 06-06-2022 Creatinine [Mass/Vol] 0.76 mg/dL 0.55-1.02 [facility] Comment on above: The validity of the calculated GFR & GFRAA in patients over 70 years has not been determined. Clinical correlation is essential. Serum or plasma low density lipoprotein (LDL) cholesterol measurement (mass/volume)Ordered By: Hortensia Unger on 06-06-2022 Cholesterol in LDL [Mass/Vol] 54 mg/dL 0-130 [facility] Serum or plasma urea nitroge n measurement (mass/volume)Ordered By: Hortensia Unger on 06-06-2022 Urea nitrogen [Mass/Vol] 15 mg/dL 7-18 [facility] Thin prep Papanicolaou smear with manual screeningOrdered By: Hortensia Unger on 06-06-2022 Thin prep Papanicolaou smear with manual screening 21 U/L 15-37 [facility] Thin prep Papanicolaou smear with manual screening 8 5-15 [facility] Basophil percentageOrdered B y: Hortensia Unger on 05-09-2022 Bilirubin [Mass/Vol] 0.50 mg/dL 0.20-1.00 [facility] Comment on above: For patients on eltr ombopag therapy, use of Dimension [place] TBIL is not recommended. Chloride [Moles/Vol] 99 mmol/L 98-107 [facility] Glucose [Mass/Vol] 115 mg/dL 74-106 [facility] Comment on above: Fasting Glucose resu lt from 100 to 125 mg/dL suggests IMPAIRED HOMEOSTASIS per A.D.A. criteria. Potassium [Moles/Vol] 4.1 mmol/L 3.5-5.1 [facility] Protein [Mass/Vol] 6.9 g/dL 6.4-8.2 [facility] Sodium [Moles/Vol] 135 mmol/L 136-145 [facility] WBC (Bld) [#/Vol] 5.8 10*3/uL 4.4-11.0 [facility] Blood erythrocytes count (nu mber/volume)Ordered By: Hortensia Unger on 05-09-2022 RBC (Bld) [#/Vol] 4.41 10*6/uL 4.2-5.4 [facility] Blood hemoglobin measurement (mass/volume)Ordered By: Hortensia Unger on 05-09-2022 Hemoglobin (Bld) [Mass/Vol] 13.4 g/dL 12.0-15.0 [facility] Blood platelet mean volumeOr dered By: Hortensia Unger on 05-09-2022 Platelet mean volume (Bld) [Entitic vol] 10.5 fL 6.2-12.0 [facility] Determination of erythrocyte mean corpuscular volume (MCV)Ordered By: Hortensia Unger on 05-09-2022 MCV (RBC) [Entitic vol] 93.0 fL 81-99 [facility] Hematocrit Auto (Bld) [Volum e fraction]Ordered By: Hortensia Unger on 05-09-2022 Hematocrit (Bld) [Volume fraction] 41.0 % 37-47 [facility] INR in Blood by Coagulation assayOrdered By: Hortensia Unger on 05-09-2022 INR Coag (Bld) [Relative time] 1.8 {INR} [facility] Laboratory - Chemistry and C hemistry - challengeOrdered By: Hortensia Unger on 05-09-2022 ALP [Catalytic activity/Vol] 61 U/L 45-117 [facility] ALT [Catalytic activity/Vol] 29 U/L 13-56 [facility] CO2 [Moles/Vol] 32.0 mmol/L 21.0-32.0 [facility] Globulin (S) [Mass/Vol] 3.7 g/dL 2.2-4.2 [facility] Urea nitrogen/Creatinine [Mass ratio] 15.6 mg/mg 10-20 [facility] Laboratory - CoagulationOrde red By: Hortensia Unger on 05-09-2022 PT Coag (PPP) [Time] 20.3 s 11.7-14.9 [facility] - Hematology and Cell countsOrdered By: Hortensia Unger on 05-09-2022 Erythrocyte distribution width (RBC) [Entitic vol] 42.8 fL 35.1-43.9 [facility] Erythrocyte distribution width (RBC) [Ratio] 12.4 % 11.6-14.6 [facility] MCH (RBC) [Entitic mass] 30.4 pg 27.0-32.0 [facility] MCHC Auto (RBC) [Mass/Vol]Or dered By: Hortensia Unger on 05-09-2022 MCHC (RBC) [Mass/Vol] 32.7 g/dL 32-36 [facility] No Panel InformationOrdered By: Hortensia Unger on 05-09-2022 Estimated GFR (MDRD) Amer 92 mL/min >60 [facility] Comment on above: GFR Calc Estimated GFR (MDRD) Non-Af Amer 76 mL/min >60 [facility] Comment on above: Non- GFR Calc Platelets bldOrdered By: Hortensia Unger on 05-09-2022 Platelets (Bld) [#/Vol] 257 10*3/uL 150-450 [facility] Serum or plasma albumin josué urement (mass/volume)Ordered By: Hortensia Unger on 05-09-2022 Albumin [Mass/Vol] 3.2 g/dL 3.2-5.0 [facility] Serum or plasma albumin/glob ulin mass ratioOrdered By: Hortensia Unger on 05-09-2022 Albumin/Globulin [Mass ratio] 0.9 {ratio} 0.9-2.4 [facility] Serum or plasma calcium josué urement (mass/volume)Ordered By: Hortensia Unger on 05-09-2022 Calcium [Mass/Vol] 8.8 mg/dL 8.5-10.1 [facility] Serum or plasma creatinine m easurement (mass/volume)Ordered By: Hortensia Unger on 05-09-2022 Creatinine [Mass/Vol] 0.77 mg/dL 0.55-1.02 [facility] Comment on above: The validity of the calculated GFR & GFRAA in patients over 70 years has not been determined. Clinical correlation is essential. Serum or plasma urea nitroge n measurement (mass/volume)Ordered By: Hortensia Unger on 05-09-2022 Urea nitrogen [Mass/Vol] 12 mg/dL 7-18 [facility] Thin prep Papanicolaou smear with manual screeningOrdered By: Hortensia Unger on 05-09-2022 Thin prep Papanicolaou smear with manual screening 23 U/L 15-37 [facility] Thin prep Papanicolaou smear with manual screening 4 5-15 [facility] Basophil percentageOrdered B y: Hortensia Unger on 04-07-2022 Bilirubin [Mass/Vol] 0.50 mg/dL 0.20-1.00 [facility] Comment on above: For patients on eltr ombopag therapy, use of Dimension [place] TBIL is not recommended. Chloride [Moles/Vol] 99 mmol/L 98-107 [facility] Glucose [Mass/Vol] 100 mg/dL 74-106 [facility] Comment on above: Fasting Glucose resu lt from 100 to 125 mg/dL suggests IMPAIRED HOMEOSTASIS per A.D.A. criteria. Potassium [Moles/Vol] 3.8 mmol/L 3.5-5.1 [facility] Protein [Mass/Vol] 6.4 g/dL 6.4-8.2 [facility] Sodium [Moles/Vol] 136 mmol/L 136-145 [facility] WBC (Bld) [#/Vol] 5.5 10*3/uL 4.4-11.0 [facility] Blood erythrocytes count (nu mber/volume)Ordered By: Hortensia Unger on 04-07-2022 RBC (Bld) [#/Vol] 4.14 10*6/uL 4.2-5.4 [facility] Blood hemoglobin measurement (mass/volume)Ordered By: Hortensia Unger on 04-07-2022 Hemoglobin (Bld) [Mass/Vol] 13.0 g/dL 12.0-15.0 [facility] Blood platelet mean volumeOr dered By: Hortensia Unger on 04-07-2022 Platelet mean volume (Bld) [Entitic vol] 10.0 fL 6.2-12.0 [facility] Determination of erythrocyte mean corpuscular volume (MCV)Ordered By: Hortensia Unger on 04-07-2022 MCV (RBC) [Entitic vol] 92.0 fL 81-99 [facility] Hematocrit Auto (Bld) [Volum e fraction]Ordered By: Hortensia Unger on 04-07-2022 Hematocrit (Bld) [Volume fraction] 38.1 % 37-47 [facility] INR in Blood by Coagulation assayOrdered By: Hortensia Unger on 04-07-2022 INR Coag (Bld) [Relative time] 2.0 {INR} [facility] Laboratory - Chemistry and C hemistry - challengeOrdered By: Hortensia Unger on 04-07-2022 ALP [Catalytic activity/Vol] 58 U/L 45-117 [facility] ALT [Catalytic activity/Vol] 18 U/L 13-56 [facility] CO2 [Moles/Vol] 29.0 mmol/L 21.0-32.0 [facility] Globulin (S) [Mass/Vol] 3.4 g/dL 2.2-4.2 [facility] Urea nitrogen/Creatinine [Mass ratio] 13.1 mg/mg 10-20 [facility] Laboratory - CoagulationOrde red By: Hortensia Unger on 04-07-2022 PT Coag (PPP) [Time] 22.6 s 11.7-14.9 [facility] Laboratory - Hematology and Cell countsOrdered By: Hortensia Unger on 04-07-2022 Erythrocyte distribution width (RBC) [Entitic vol] 42.2 fL 35.1-43.9 [facility] Erythrocyte distribution width (RBC) [Ratio] 12.6 % 11.6-14.6 [facility] MCH (RBC) [Entitic mass] 31.4 pg 27.0-32.0 [facility] MCHC Auto (RBC) [Mass/Vol]Or dered By: Hortensia Unger on 04-07-2022 MCHC (RBC) [Mass/Vol] 34.1 g/dL 32-36 [facility] No Panel InformationOrdered By: Hortensia Unger on 04-07-2022 Estimated GFR (MDRD) Amer 104 mL/min >60 [facility] Comment on above: GFR Calc Estimated GFR (MDRD) Non-Af Amer 86 mL/min >60 [facility] Comment on above: Non- GFR Calc Platelets bldOrdered By: Hortensia Unger on 04-07-2022 Platelets (Bld) [#/Vol] 219 10*3/uL 150-450 [facility] Serum or plasma albumin josué urement (mass/volume)Ordered By: Hortensia Unger on 04-07-2022 Albumin [Mass/Vol] 3.0 g/dL 3.2-5.0 [facility] Serum or plasma albumin/glob ulin mass ratioOrdered By: Hortensia Unger on 04-07-2022 Albumin/Globulin [Mass ratio] 0.9 {ratio} 0.9-2.4 [facility] Serum or plasma calcium josué urement (mass/volume)Ordered By: Hortensia Unger on 04-07-2022 Calcium [Mass/Vol] 8.7 mg/dL 8.5-10.1 [facility] Serum or plasma creatinine m easurement (mass/volume)Ordered By: Hortensia Unger on 04-07-2022 Creatinine [Mass/Vol] 0.69 mg/dL 0.55-1.02 [facility] Comment on above: The validity of the calculated GFR & GFRAA in patients over 70 years has not been determined. Clinical correlation is essential. Serum or plasma urea nitroge n measurement (mass/volume)Ordered By: Hortensia Unger on 04-07-2022 Urea nitrogen [Mass/Vol] 9 mg/dL 7-18 [facility] Thin prep Papanicolaou smear with manual screeningOrdered By: Hortensia Unger on 04-07-2022 Thin prep Papanicolaou smear with manual screening 17 U/L 15-37 [facility] Thin prep Papanicolaou smear with manual screening 8 5-15 [facility] Culture, urineOrdered By: Isacc Unger on 03-28-2022 Bacteria identified Cx Nom (U) Culture exhibits no growth. [facility] Basophil percentageOrdered B y: Hortensia Unger on 03-26-2022 Basophil percentage 0 SEEN /hpf 0-5 [facility] Bilirubin Test strip Ql (U)O rdered By: Hortensia Unger on 03-26-2022 Bilirubin Ql (U) Negative Negative [facility] Ketones Test strip Ql (U)Ord ered By: Hortensia Unger on 03-26-2022 Ketones Ql (U) Negative Negative [facility] Mucus LM Ql (Urine sed)Order ed By: Hortensia Unger on 03-26-2022 Mucus Ql (Urine sed) 0 SEEN /hpf [facility] Nitrite Test strip Ql (U)Ord ered By: Hortensia Unger on 03-26-2022 Nitrite Ql (U) Negative Negative [facility] Protein Test strip Ql (U)Ord ered By: Hortensia Unger on 03-26-2022 Protein Ql (U) Negative Negative [facility] Squamous epithelial cells de tection in urine sediment by light microscopyOrdered By: Hortensia Unger on 03-26-2022 Epithelial cells.squamous LM Ql (Urine sed) 0 SEEN /hpf 5-10 [facility] Urine blood detectionOrdered By: Hortensia Unger on 03-26-2022 RBC Ql (U) 10 /ul Negative [facility] RBC Ql (U) 0 SEEN /hpf 0-5 [facility] Urine clarityOrdered By: Hortensia Unger on 03-26-2022 Clarity (U) Clear Clear [facility] Urine color determinationOrd ered By: Hortensia Unger on 03-26-2022 Color (U) Yellow Yellow [facility] Urine glucose detectionOrder ed By: Hortensia Unger on 03-26-2022 Glucose Ql (U) Normal mg/dl Normal [facility] Urine leukocyte esterase det ection by dipstickOrdered By: Hortensia Unger on 03-26-2022 Leukocyte esterase Test strip Ql (U) Negative Negative [facility] Urine pHOrdered By: Hortensia Szymanski iff on 03-26-2022 pH (U) 6.5 [pH] 5.0 - 8.0 [facility] Urine sediment bacteria coun t by microscopy (number/high power field)Ordered By: Hortensia Unger on 03-26-2022 Bacteria LM.HPF (Urine sed) [#/Area] 0 /[HPF] None Seen [facility] Urine specific gravity measu rementOrdered By: Hortensia Unger on 03-26-2022 Specific gravity (U) [Rel density] 1.015 1.002-1.03 0 [facility] Urobilinogen Auto test strip Ql (U)Ordered By: Hortensia Unger on 03-26-2022 Urobilinogen Ql (U) Normal mg/dl Normal [facility] Culture, urineOrdered By: Isacc Unger on 03-17-2022 Bacteria identified Cx Nom (U) Staphylococcus epidermidis [facility] Laboratory - CoagulationOrde red By: Hortensia Unger on 03-16-2022 INR Coag (Bld) [Relative time] 2.2 {INR} [facility] Comment on above: Critical Value > 4.0 Whole blood prothrombin time Ordered By: Hortensia Unger on 03-16-2022 PT Coag (Bld) [Time] 26.0 s 11.7-14.9 [facility] Bilirubin Test strip Ql (U)O rdered By: Hortensia Unger on 03-15-2022 Bilirubin Ql (U) Negative Negative [facility] Ketones Test strip Ql (U)Ord ered By: Hortensia Unger on 03-15-2022 Ketones Ql (U) Negative Negative [facility] Nitrite Test strip Ql (U)Ord ered By: Hortensia Unger on 03-15-2022 Nitrite Ql (U) Negative Negative [facility] Protein Test strip Ql (U)Ord ered By: Hortensia Unger on 03-15-2022 Protein Ql (U) Negative Negative [facility] Urine blood detectionOrdered By: Hortensia Unger on 03-15-2022 RBC Ql (U) Negative Negative [facility] Urine clarityOrdered By: Hortensia Unger on 03-15-2022 Clarity (U) Clear Clear [facility] Urine color determinationOrd ered By: Hortensia Unger on 03-15-2022 Color (U) Yellow Yellow [facility] Urine glucose detectionOrder ed By: Hortensia Unger on 03-15-2022 Glucose Ql (U) Normal mg/dl Normal [facility] Urine leukocyte esterase det ection by dipstickOrdered By: Hortensia Unger on 03-15-2022 Leukocyte esterase Test strip Ql (U) Negative Negative [facility] Urine pHOrdered By: Hortensia Szymanski iff on 03-15-2022 pH (U) 7.0 [pH] 5.0 - 8.0 [facility] Urine specific gravity measu rementOrdered By: Hortensia Unger on 03-15-2022 Specific gravity (U) [Rel density] 1.010 1.002-1.03 0 [facility] Urobilinogen Auto test strip Ql (U)Ordered By: Hortensia Unger on 03-15-2022 Urobilinogen Ql (U) Normal mg/dl Normal [facility] Laboratory - Microbiology an d Antimicrobial susceptibilityOrdered By: Dr. Rios on 03-13-2022 Bacteria identified Cx Nom (Bld) No growth in 5 days. [facility] Culture, urineOrdered By: Dr Jose Rios on 03-10-2022 Bacteria identified Cx Nom (U) Culture exhibits no growth. [facility] Absolute lymphocyte countOrd ered By: Dr. Rios on 03-07-2022 Lymphocytes Auto (Unsp spec) [#/Vol] 2.09 10*3/uL 0.83-4.51 [facility] Basophil percentageOrdered B y: Dr. Rios on 03-07-2022 Basophil percentage 0 SEEN /hpf 0-5 [facility] Basophils/100 WBC (Bld) 0.2 % 0-1 [facility] Bilirubin [Mass/Vol] 0.60 mg/dL 0.20-1.00 [facility] Comment on above: For patients on eltr ombopag therapy, use of Dimension [place] TBIL is not recommended. Chloride [Moles/Vol] 97 mmol/L 98-107 [facility] Eosinophils/100 WBC (Bld) 1.0 % 0-5 [facility] Glucose [Mass/Vol] 122 mg/dL 74-106 [facility] Comment on above: Fasting Glucose resu lt from 100 to 125 mg/dL suggests IMPAIRED HOMEOSTASIS per A.D.A. criteria. Neutrophils (Bld) [#/Vol] 10.6 10*3/uL 2.0-7.7 [facility] Neutrophils/100 WBC (Bld) 73.9 % 47-70 [facility] Potassium [Moles/Vol] 3.6 mmol/L 3.5-5.1 [facility] Protein [Mass/Vol] 7.4 g/dL 6.4-8.2 [facility] Sodium [Moles/Vol] 134 mmol/L 136-145 [facility] WBC (Bld) [#/Vol] 14.3 10*3/uL 4.4-11.0 [facility] Basophil percentageOrdered B y: Hortensia Unger on 03-07-2022 Bilirubin [Mass/Vol] 0.70 mg/dL 0.20-1.00 [facility] Comment on above: For patients on eltr ombopag therapy, use of Dimension [place] TBIL is not recommended. Chloride [Moles/Vol] 95 mmol/L 98-107 [facility] Cholesterol [Mass/Vol] 119 mg/dL <200 [facility] Comment on above: <200 mg/dL Desirable 200-240 mg/dL Borderline >240 mg/dL High Risk Glucose [Mass/Vol] 147 mg/dL 74-106 [facility] Comment on above: Fasting Glucose resu lt greater than or equal to 126 mg/dL suggests DIABETES MELLITUS per A.D.A. criteria. Potassium [Moles/Vol] 3.6 mmol/L 3.5-5.1 [facility] Protein [Mass/Vol] 7.5 g/dL 6.4-8.2 [facility] Sodium [Moles/Vol] 133 mmol/L 136-145 [facility] Triglyceride [Mass/Vol] 81 mg/dL <199 [facility] Comment on above: The drugs N-Acetylcy steine and Metamizole may falsely depress this assay.Serum Triglycerides Reference Interval Normal <150 mg/dL Borderline high 150 - 199 mg/dL High 200 - 499 mg/dL Very High > or = 500 mg/dL WBC (Bld) [#/Vol] 13.6 10*3/uL 4.4-11.0 [facility] Bilirubin Test strip Ql (U)O rdered By: Dr. Rios on 03-07-2022 Bilirubin Ql (U) Negative Negative [facility] Blood erythrocytes count (nu mber/volume)Ordered By: Dr. Rios on 03-07-2022 RBC (Bld) [#/Vol] 4.30 10*6/uL 4.2-5.4 [facility] Blood erythrocytes count (nu mber/volume)Ordered By: Hortensia Unger on 03-07-2022 RBC (Bld) [#/Vol] 4.37 10*6/uL 4.2-5.4 [facility] Blood hemoglobin measurement (mass/volume)Ordered By: Dr. Rios on 03-07-2022 Hemoglobin (Bld) [Mass/Vol] 13.5 g/dL 12.0-15.0 [facility] Blood hemoglobin measurement (mass/volume)Ordered By: Hortensia Unger on 03-07-2022 Hemoglobin (Bld) [Mass/Vol] 13.9 g/dL 12.0-15.0 [facility] Blood lymphocytes/100 leukoc ytesOrdered By: Dr. Rios on 03-07-2022 Lymphocytes/100 WBC (Bld) 14.7 % 19-41 [facility] Blood monocytes/100 leukocyt esOrdered By: Dr. Rios on 03-07-2022 Monocytes/100 WBC (Bld) 9.8 % 0-10 [facility] Blood platelet mean volumeOr dered By: Dr. Rios on 03-07-2022 Platelet mean volume (Bld) [Entitic vol] 10.2 fL 6.2-12.0 [facility] Blood platelet mean volumeOr dered By: Hortensia Unger on 03-07-2022 Platelet mean volume (Bld) [Entitic vol] 10.6 fL 6.2-12.0 [facility] Determination of erythrocyte mean corpuscular volume (MCV)Ordered By: Dr. Rios on 03-07-2022 MCV (RBC) [Entitic vol] 91.2 fL 81-99 [facility] Determination of erythrocyte mean corpuscular volume (MCV)Ordered By: Hortensia Unger on 03-07-2022 MCV (RBC) [Entitic vol] 93.4 fL 81-99 [facility] Direct bilirubinOrdered By: Dr. Rios on 03-07-2022 Bilirubin.direct [Mass/Vol] 0.17 mg/dL 0.00-0.30 [facility] Hematocrit Auto (Bld) [Volum e fraction]Ordered By: Dr. Rios on 03-07-2022 Hematocrit (Bld) [Volume fraction] 39.2 % - [facility] Hematocrit Auto (Bld) [Volum e fraction]Ordered By: Hortensia Unger on 03-07-2022 Hematocrit (Bld) [Volume fraction] 40.8 % 37- [facility] INR in Blood by Coagulation assayOrdered By: Dr. Rios on 03-07-2022 INR Coag (Bld) [Relative time] 5.6 {INR} [facility] Comment on above: CRITICAL VALUE VERIF IED. CALLED TO BJ BENZ03/07/22 1646 Westley Nath.RESULTS READ BACK BY SAME . INR in Blood by Coagulation assayOrdered By: Hortensia Unger on 03-07-2022 INR Coag (Bld) [Relative time] 4.9 {INR} [facility] Comment on above: CRITICAL VALUE VERIF IED. CALLED TO KHRIS KHAN)03/07/22 1009 Mono Menon.RESULTS READ BACK BY SAME. Influenza virus A and B and SARS-CoV-2 (COVID-19) Ag panel - Upper respiratory specimOrdered By: Dr. Rios on 03-07-2022 SARS-CoV-2 (COVID-19) RNA REMINGTON+probe Ql (Resp) [facility] Ketones Test strip Ql (U)Ord ered By: Dr. Rios on 03-07-2022 Ketones Ql (U) Negative Negative [facility] Laboratory - Chemistry and C hemistry - challengeOrdered By: Dr. Rios on 03-07-2022 ALP [Catalytic activity/Vol] 64 U/L 45-117 [facility] ALT [Catalytic activity/Vol] 17 U/L 13-56 [facility] CO2 [Moles/Vol] 30.0 mmol/L 21.0-32.0 [facility] Globulin (S) [Mass/Vol] 4.1 g/dL 2.2-4.2 [facility] Urea nitrogen/Creatinine [Mass ratio] 17.7 mg/mg 10-20 [facility] Laboratory - Chemistry and C hemistry - challengeOrdered By: Hortensia Unger on 03-07-2022 ALP [Catalytic activity/Vol] 74 U/L 45-117 [facility] ALT [Catalytic activity/Vol] 22 U/L 13-56 [facility] CO2 [Moles/Vol] 28.0 mmol/L 21.0-32.0 [facility] Globulin (S) [Mass/Vol] 4.3 g/dL 2.2-4.2 [facility] Urea nitrogen/Creatinine [Mass ratio] 16.1 mg/mg 10-20 [facility] Laboratory - CoagulationOrde red By: Dr. Rios on 03-07-2022 PT Coag (PPP) [Time] 50.6 s 11.7-14.9 [facility] Laboratory - CoagulationOrde red By: Hortensia Unger on 03-07-2022 PT Coag (PPP) [Time] 45.7 s 11.7-14.9 [facility] Laboratory - Hematology and Cell countsOrdered By: Dr. Rios on 03-07-2022 Erythrocyte distribution width (RBC) [Entitic vol] 40.9 fL 35.1-43.9 [facility] Erythrocyte distribution width (RBC) [Ratio] 12.3 % 11.6-14.6 [facility] Immature granulocytes/100 WBC (Bld) 0.400 % 0.0-0.9 [facility] Comment on above: IG% - Immature Granu locytes (promyelocytes, myelocytes and metamyelocytes) > 1% indicates that a LEFT SHIFT is Present. MCH (RBC) [Entitic mass] 31.4 pg 27.0-32.0 [facility] Nucleated RBC/100 WBC (Bld) [Ratio] 0 % 0-5 [facility] Laboratory - Hematology and Cell countsOrdered By: Hortensia Unger on 03-07-2022 Erythrocyte distribution width (RBC) [Entitic vol] 42.1 fL 35.1-43.9 [facility] Erythrocyte distribution width (RBC) [Ratio] 12.2 % 11.6-14.6 [facility] MCH (RBC) [Entitic mass] 31.8 pg 27.0-32.0 [facility] MCHC Auto (RBC) [Mass/Vol]Or dered By: Dr. Rios on 03-07-2022 MCHC (RBC) [Mass/Vol] 34.4 g[facility]dL [facility] [[facility]/Vol]Or dered By: Hortensia Unger on 03-07-2022 MCHC (RBC) [Mass/Vol] 34.1 g/dL 32-36 [facility] Mucus LM Ql (Urine sed)Order ed By: Dr. Rios on 03-07-2022 Mucus Ql (Urine sed) 0 SEEN /hpf [facility] Nitrite Test strip Ql (U)Ord ered By: Dr. Rios on 03-07-2022 Nitrite Ql (U) Negative Negative [facility] No Panel InformationOrdered By: Dr. Rios on 03-07-2022 Estimated Creatinine Clearance Calc 31.60 ml/min [facility] Estimated GFR (MDRD) Amer 97 mL/min >60 [facility] Comment on above: GFR Calc Estimated GFR (MDRD) Non-Af Amer 80 mL/min >60 [facility] Comment on above: Non- GFR Calc Troponin I High Sensitivity 9 pg/mL 3.0-54.0 [facility] Comment on above: Please Note: New Amber t Units and Gender Specific Reference Ranges. For more information see Policy Stat Procedure [place] High Sensitivity Troponin (TNIH) and attachments. No Panel InformationOrdered By: Hortensia Unger on 03-07-2022 Estimated GFR (MDRD) Amer 95 mL/min >60 [facility] Comment on above: GFR Calc Estimated GFR (MDRD) Non-Af Amer 79 mL/min >60 [facility] Comment on above: Non- GFR Calc Platelets bldOrdered By: Dr. Rios on 03-07-2022 Platelets (Bld) [#/Vol] 229 10*3/uL 150-450 [facility] Platelets bldOrdered By: Hortensia Unger on 03-07-2022 Platelets (Bld) [#/Vol] 223 10*3/uL 150-450 [facility] Protein Test strip Ql (U)Ord ered By: Dr. Rios on 03-07-2022 Protein Ql (U) Negative Negative [facility] Serum or plasma albumin josué urement (mass/volume)Ordered By: Dr. Rios on 03-07-2022 Albumin [Mass/Vol] 3.3 g/dL 3.2-5.0 [facility] Serum or plasma albumin josué urement (mass/volume)Ordered By: Hortensia Unger on 03-07-2022 Albumin [Mass/Vol] 3.2 g/dL 3.2-5.0 [facility] Serum or plasma albumin/glob ulin mass ratioOrdered By: Hortensia Unger on 03-07-2022 Albumin/Globulin [Mass ratio] 0.7 {ratio} 0.9-2.4 [facility] Serum or plasma calcium josué urement (mass/volume)Ordered By: Dr. Rios on 03-07-2022 Calcium [Mass/Vol] 9.0 mg/dL 8.5-10.1 [facility] Serum or plasma calcium josué urement (mass/volume)Ordered By: Hortensia Unger on 03-07-2022 Calcium [Mass/Vol] 8.9 mg/dL 8.5-10.1 [facility] Serum or plasma cholesterol in HDL measurement (mass/volume)Ordered By: Hortensia Unger on 03-07-2022 Cholesterol in HDL [Mass/Vol] 57 mg/dL >40 [facility] Comment on above: The drugs N-Acetylcy steine and Metamizole may falsely depress this assay. Reference Range HDL <40 mg/dL Low HDL Cholesterol HDL >or= 60 mg/dL High HDL Cholesterol Serum or plasma cholesterol in VLDL measurement (mass/volume)Ordered By: Hortensia Unger on 03-07-2022 Cholesterol in VLDL [Mass/Vol] 16 mg/dL 5-40 [facility] Serum or plasma creatinine m easurement (mass/volume)Ordered By: Dr. Rios on 03-07-2022 Creatinine [Mass/Vol] 0.73 mg/dL 0.55-1.02 [facility] Comment on above: The validity of the calculated GFR & GFRAA in patients over 70 years has not been determined. Clinical correlation is essential. Serum or plasma creatinine m easurement (mass/volume)Ordered By: Hortensia Unger on 03-07-2022 Creatinine [Mass/Vol] 0.75 mg/dL 0.55-1.02 [facility] Comment on above: The validity of the calculated GFR & GFRAA in patients over 70 years has not been determined. Clinical correlation is essential. Serum or plasma low density lipoprotein (LDL) cholesterol measurement (mass/volume)Ordered By: Hortensia Unger on 03-07-2022 Cholesterol in LDL [Mass/Vol] 46 mg/dL 0-130 [facility] Serum or plasma urea nitroge n measurement (mass/volume)Ordered By: Dr. Rios on 03-07-2022 Urea nitrogen [Mass/Vol] 13 mg/dL 7-18 [facility] Serum or plasma urea nitroge n measurement (mass/volume)Ordered By: Hortensia Unger on 03-07-2022 Urea nitrogen [Mass/Vol] 12 mg/dL -18 [facility] Squamous epithelial cells de tection in urine sediment by light microscopyOrdered By: Dr. Rios on 03-07-2022 Epithelial cells.squamous LM Ql (Urine sed) 0-5 SEEN /hpf 5-10 [facility] Thin prep Papanicolaou smear with manual screeningOrdered By: Dr. Rios on 03-07-2022 Thin prep Papanicolaou smear with manual screening 15 U/L [facility] Thin prep Papanicolaou smear with manual screening 7 5-15 [facility] Thin prep Papanicolaou smear with manual screeningOrdered By: Hortensia Unger on 03-07-2022 Thin prep Papanicolaou smear with manual screening 20 U/L [facility] Thin prep Papanicolaou smear with manual screening 10 -15 [facility] Urine blood detectionOrdered By: Dr. Rios on 03-07-2022 RBC Ql (U) 25 /ul Negative [facility] RBC Ql (U) 5-10 SEEN /hpf 0-5 [facility] Urine clarityOrdered By: Dr. Rios on 03-07-2022 Clarity (U) Clear Clear [facility] Urine color determinationOrd ered By: Dr. Rios on 03-07-2022 Color (U) Yellow Yellow [facility] Urine glucose detectionOrder ed By: Dr. Rios on 03-07-2022 Glucose Ql (U) Normal mg/dl Normal [facility] Urine leukocyte esterase det ection by dipstickOrdered By: Dr. Rios on 03-07-2022 Leukocyte esterase Test strip Ql (U) Negative Negative [facility] Urine pHOrdered By: Dr. Ricky ortiz on 03-07-2022 pH (U) 6.5 [pH] 5.0 - 8.0 [facility] Urine sediment bacteria coun t by microscopy (number/high power field)Ordered By: Dr. Rios on 03-07-2022 Bacteria LM.HPF (Urine sed) [#/Area] RARE /hpf None Seen [facility] Urine specific gravity measu rementOrdered By: Dr. Rios on 03-07-2022 Specific gravity (U) [Rel density] 1.010 1.002-1.03 0 [facility] Urobilinogen Auto test strip Ql (U)Ordered By: Dr. Rios on 03-07-2022 Urobilinogen Ql (U) 1 mg/dl Normal [facility] Laboratory - Coagulationon 0 02-03-2022 INR Coag (Bld) [Relative time] 2.1 {INR} [facility] Work Phone: Comment on above: Critical Value > 4.0 Whole blood prothrombin time on 02-03-2022 PT Coag (Bld) [Time] 24.8 s 11.7-14.9 [facility] Work Phone: Laboratory - Coagulationon 0 01-06-2022 INR Coag (Bld) [Relative time] 2.2 {INR} [facility] Work Phone: Comment on above: Critical Value > 4.0 Whole blood prothrombin time on 01-06-2022 PT Coag (Bld) [Time] 25.9 s 11.7-14.9 [facility] Work Phone: Laboratory - Coagulationon 0 12-20-2021 INR Coag (Bld) [Relative time] 2.1 {INR} [facility] Work Phone: Comment on above: Critical Value > 4.0 Whole blood prothrombin time on 12-20-2021 PT Coag (Bld) [Time] 25.2 s 11.7-14.9 [facility] Work Phone: Laboratory - Coagulationon 0 12-13-2021 INR Coag (Bld) [Relative time] 1.4 {INR} [facility] Work Phone: Comment on above: Critical Value > 4.0 Whole blood prothrombin time on 12-13-2021 PT Coag (Bld) [Time] 17.2 s 11.7-14.9 [facility] Work Phone: Basophil percentageon 2021 Chloride [Moles/Vol] 98 mmol/L 98-107 [facility] Work Phone: Cholesterol [Mass/Vol] 114 mg/dL <200 [facility] Work Phone: Comment on above: <200 mg/dL Desirable 200-240 mg/dL Borderline >240 mg/dL High Risk Glucose [Mass/Vol] 111 mg/dL 74-106 [facility] Work Phone: Comment on above: Fasting Glucose resu lt from 100 to 125 mg/dL suggests IMPAIRED HOMEOSTASIS per A.D.A. criteria. Potassium [Moles/Vol] 3.7 mmol/L 3.5-5.1 [facility] Work Phone: Sodium [Moles/Vol] 135 mmol/L 136-145 [facility] Work Phone: Triglyceride [Mass/Vol] 61 mg/dL <199 [facility] Work Phone: Comment on above: The drugs N-Acetylcy steine and Metamizole may falsely depress this assay.Serum Triglycerides Reference Interval Normal <150 mg/dL Borderline high 150 - 199 mg/dL High 200 - 499 mg/dL Very High > or = 500 mg/dL WBC (Bld) [#/Vol] 5.9 10*3/uL 4.4-11.0 [facility] Work Phone: Blood erythrocytes count (nu mber/volume)on 12-10-2021 RBC (Bld) [#/Vol] 3.91 10*6/uL 4.2-5.4 [facility] Work Phone: Blood hemoglobin measurement (mass/volume)on 12-10-2021 Hemoglobin (Bld) [Mass/Vol] 12.4 g/dL 12.0-15.0 [facility] Work Phone: Blood platelet mean volumeon 12-10-2021 Platelet mean volume (Bld) [Entitic vol] 10.3 fL 6.2-12.0 [facility] Work Phone: Determination of erythrocyte mean corpuscular volume (MCV)on 12-10-2021 MCV (RBC) [Entitic vol] 92.1 fL 81-99 [facility] Work Phone: Hematocrit Auto (Bld) [Volum e fraction]on 12-10-2021 Hematocrit (Bld) [Volume fraction] 36.0 % 37-47 [facility] Work Phone: Laboratory - Chemistry and C hemistry - challengeon 12-10-2021 CO2 [Moles/Vol] 32.0 mmol/L 21.0-32.0 [facility] Work Phone: Urea nitrogen/Creatinine [Mass ratio] 18.8 mg/mg 10-20 [facility] Work Phone: Laboratory - Hematology and Cell countson 12-10-2021 Erythrocyte distribution width (RBC) [Entitic vol] 41.1 fL 35.1-43.9 [facility] Work Phone: Erythrocyte distribution width (RBC) [Ratio] 12.3 % 11.6-14.6 [facility] Work Phone: MCH (RBC) [Entitic mass] 31.7 pg 27.0-32.0 [facility] Work Phone: MCHC Auto (RBC) [Mass/Vol]on 12-10-2021 MCHC (RBC) [Mass/Vol] 34.4 g/dL 32-[facility] Work [facility]: No Panel Informationon 12-10 Estimated GFR (MDRD) Amer 114 mL/min >60 [facility] Work Phone: Comment on above: GFR Calc Estimated GFR (MDRD) Non-Af Amer 94 mL/min >60 [facility] Work Phone: Comment on above: Non- GFR Calc Platelets bldon 12-10-2021 Platelets (Bld) [#/Vol] 206 10*3/uL 150-450 [facility] Work Phone: Serum or plasma calcium josué urement (mass/volume)on 12-10-2021 Calcium [Mass/Vol] 8.7 mg/dL 8.5-10.1 [facility] Work Phone: Serum or plasma cholesterol in HDL measurement (mass/volume)on 12-10-2021 Cholesterol in HDL [Mass/Vol] 48 mg/dL >40 [facility] Work Phone: Comment on above: The drugs N-Acetylcy steine and Metamizole may falsely depress this assay. Reference Range HDL <40 mg/dL Low HDL Cholesterol HDL >or= 60 mg/dL High HDL Cholesterol Serum or plasma cholesterol in VLDL measurement (mass/volume)on 12-10-2021 Cholesterol in VLDL [Mass/Vol] 12 mg/dL 5-40 [facility] Work Phone: Serum or plasma creatinine m easurement (mass/volume)on 12-10-2021 Creatinine [Mass/Vol] 0.64 mg/dL 0.55-1.02 [facility] Work Phone: Comment on above: The validity of the calculated GFR & GFRAA in patients over 70 years has not been determined. Clinical correlation is essential. Serum or plasma low density lipoprotein (LDL) cholesterol measurement (mass/volume)on 12-10-2021 Cholesterol in LDL [Mass/Vol] 54 mg/dL 0-130 [facility] Work Phone: Serum or plasma urea nitroge n measurement (mass/volume)on 12-10-2021 Urea nitrogen [Mass/Vol] 12 mg/dL 7-18 [facility] Work Phone: Thin prep Papanicolaou smear with manual screeningon 12-10-2021 Thin prep Papanicolaou smear with manual screening 5 5-15 [facility] Work Phone: Basophil percentageon 2021 Chloride [Moles/Vol] 96 mmol/L 98-107 [facility] Work Phone: Glucose [Mass/Vol] 126 mg/dL 74-106 [facility] Work Phone: Comment on above: Fasting Glucose resu lt greater than or equal to 126 mg/dL suggests DIABETES MELLITUS per A.D.A. criteria. Potassium [Moles/Vol] 3.5 mmol/L 3.5-5.1 [facility] Work Phone: Sodium [Moles/Vol] 133 mmol/L 136-145 [facility] Work Phone: WBC (Bld) [#/Vol] 7.2 10*3/uL 4.4-11.0 [facility] Work Phone: Blood erythrocytes count (nu mber/volume)on 12-02-2021 RBC (Bld) [#/Vol] 4.59 10*6/uL 4.2-5.4 [facility] Work Phone: Blood hemoglobin measurement (mass/volume)on 12-02-2021 Hemoglobin (Bld) [Mass/Vol] 14.4 g/dL 12.0-15.0 [facility] Work Phone: Blood platelet mean volumeon 12-02-2021 Platelet mean volume (Bld) [Entitic vol] 10.6 fL 6.2-12.0 [facility] Work Phone: Determination of erythrocyte mean corpuscular volume (MCV)on 12-02-2021 MCV (RBC) [Entitic vol] 92.4 fL 81-99 [facility] Work Phone: Hematocrit Auto (Bld) [Volum e fraction]on 12-02-2021 Hematocrit (Bld) [Volume fraction] 42.4 % 37-47 [facility] Work Phone: INR in Blood by Coagulation assayon 12-02-2021 INR Coag (Bld) [Relative time] 1.7 {INR} [facility] Work Phone: Laboratory - Chemistry and C hemistry - challengeon 12-02-2021 CO2 [Moles/Vol] 33.0 mmol/L 21.0-32.0 [facility] Work Phone: Urea nitrogen/Creatinine [Mass ratio] 17.2 mg/mg 10-20 [facility] Work Phone: Laboratory - Coagulationon 0 12-02-2021 PT Coag (PPP) [Time] 19.9 s 11.7-14.9 [facility] Work Phone: Laboratory - Hematology and Cell countson 12-02-2021 Erythrocyte distribution width (RBC) [Entitic vol] 41.6 fL 35.1-43.9 [facility] Work Phone: Erythrocyte distribution width (RBC) [Ratio] 12.2 % 11.6-14.6 [facility] Work Phone: MCH (RBC) [Entitic mass] 31.4 pg 27.0-32.0 [facility] Work Phone: MCHC Auto (RBC) [Mass/Vol]on 12-02-2021 MCHC (RBC) [Mass/Vol] 34.0 g/dL 32-36 [facility] Work Phone: No Panel Informationon 12-02 Estimated GFR (MDRD) Amer 94 mL/min >60 [facility] Work Phone: Comment on above: GFR Calc Estimated GFR (MDRD) Non-Af Amer 78 mL/min >60 [facility] Work Phone: Comment on above: Non- GFR Calc Platelets bldon 12-02-2021 Platelets (Bld) [#/Vol] 248 10*3/uL 150-450 [facility] Work Phone: Serum or plasma calcium josué urement (mass/volume)on 12-02-2021 Calcium [Mass/Vol] 8.9 mg/dL 8.5-10.1 [facility] Work Phone: Serum or plasma creatinine m easurement (mass/volume)on 12-02-2021 Creatinine [Mass/Vol] 0.75 mg/dL 0.55-1.02 [facility] Work Phone: Comment on above: The validity of the calculated GFR & GFRAA in patients over 70 years has not been determined. Clinical correlation is essential. Serum or plasma urea nitroge n measurement (mass/volume)on 12-02-2021 Urea nitrogen [Mass/Vol] 13 mg/dL 7-18 [facility] Work Phone: Thin prep Papanicolaou smear with manual screeningon 12-02-2021 Thin prep Papanicolaou smear with manual screening 4 5-15 [facility] Work Phone: Basophil percentageon 2021 Chloride [Moles/Vol] 102 mmol/L 98-107 [facility] Work Phone: Glucose [Mass/Vol] 110 mg/dL 74-106 [facility] Work Phone: Comment on above: Fasting Glucose resu lt from 100 to 125 mg/dL suggests IMPAIRED HOMEOSTASIS per A.D.A. criteria. Potassium [Moles/Vol] 4.7 mmol/L 3.5-5.1 [facility] Work Phone: Sodium [Moles/Vol] 136 mmol/L 136-145 [facility] Work Phone: WBC (Bld) [#/Vol] 6.5 10*3/uL 4.4-11.0 [facility] Work Phone: Blood erythrocytes count (nu mber/volume)on 11-25-2021 RBC (Bld) [#/Vol] 4.15 10*6/uL 4.2-5.4 [facility] Work Phone: Blood hemoglobin measurement (mass/volume)on 11-25-2021 Hemoglobin (Bld) [Mass/Vol] 13.0 g/dL 12.0-15.0 [facility] Work Phone: Blood platelet mean volumeon 11-25-2021 Platelet mean volume (Bld) [Entitic vol] 10.3 fL 6.2-12.0 [facility] Work Phone: Determination of erythrocyte mean corpuscular volume (MCV)on 11-25-2021 MCV (RBC) [Entitic vol] 91.6 fL 81-99 [facility] Work Phone: Hematocrit Auto (Bld) [Volum e fraction]on 11-25-2021 Hematocrit (Bld) [Volume fraction] 38.0 % 37-47 [facility] Work Phone: Laboratory - Chemistry and C hemistry - challengeon 11-25-2021 CO2 [Moles/Vol] 30.0 mmol/L 21.0-32.0 [facility] Work Phone: Urea nitrogen/Creatinine [Mass ratio] 15.3 mg/mg 10-20 [facility] Work Phone: Laboratory - Hematology and Cell countson 11-25-2021 Erythrocyte distribution width (RBC) [Entitic vol] 41.4 fL 35.1-43.9 [facility] Work Phone: Erythrocyte distribution width (RBC) [Ratio] 12.4 % 11.6-14.6 [facility] Work Phone: MCH (RBC) [Entitic mass] 31.3 pg 27.0-32.0 [facility] Work Phone: MCHC Auto (RBC) [Mass/Vol]on 11-25-2021 MCHC (RBC) [Mass/Vol] 34.2 g/dL 32-36 [facility] Work Phone: No Panel Informationon 11-25 Estimated GFR (MDRD) Amer 99 mL/min >60 [facility] Work Phone: Comment on above: GFR Calc Estimated GFR (MDRD) Non-Af Amer 82 mL/min >60 [facility] Work Phone: Comment on above: Non- GFR Calc Platelets bldon 11-25-2021 Platelets (Bld) [#/Vol] 209 10*3/uL 150-450 [facility] Work Phone: Serum or plasma calcium josué urement (mass/volume)on 11-25-2021 Calcium [Mass/Vol] 8.8 mg/dL 8.5-10.1 [facility] Work Phone: Serum or plasma creatinine m easurement (mass/volume)on 11-25-2021 Creatinine [Mass/Vol] 0.72 mg/dL 0.55-1.02 [facility] Work Phone: Comment on above: The validity of the calculated GFR & GFRAA in patients over 70 years has not been determined. Clinical correlation is essential. Serum or plasma urea nitroge n measurement (mass/volume)on 11-25-2021 Urea nitrogen [Mass/Vol] 11 mg/dL 7-18 [facility] Work Phone: Thin prep Papanicolaou smear with manual screeningon 11-25-2021 Thin prep Papanicolaou smear with manual screening 4 5-15 [facility] Work Phone: Basophil percentageon 2021 Chloride [Moles/Vol] 98 mmol/L 98-107 [facility] Work Phone: Glucose [Mass/Vol] 112 mg/dL 74-106 [facility] Work Phone: Comment on above: Fasting Glucose resu lt from 100 to 125 mg/dL suggests IMPAIRED HOMEOSTASIS per A.D.A. criteria. Potassium [Moles/Vol] 4.9 mmol/L 3.5-5.1 [facility] Work Phone: Sodium [Moles/Vol] 133 mmol/L 136-145 [facility] Work Phone: Laboratory - Chemistry and C hemistry - challengeon 11-23-2021 CO2 [Moles/Vol] 30.0 mmol/L 21.0-32.0 [facility] Work Phone: Urea nitrogen/Creatinine [Mass ratio] 15.5 mg/mg 10-20 [facility] Work Phone: No Panel Informationon 11-23 Estimated GFR (MDRD) Amer 101 mL/min >60 [facility] Work Phone: Comment on above: GFR Calc Estimated GFR (MDRD) Non-Af Amer 84 mL/min >60 [facility] Work Phone: Comment on above: Non- GFR Calc Serum or plasma calcium josué urement (mass/volume)on 11-23-2021 Calcium [Mass/Vol] 9.3 mg/dL 8.5-10.1 [facility] Work Phone: Serum or plasma creatinine m easurement (mass/volume)on 11-23-2021 Creatinine [Mass/Vol] 0.71 mg/dL 0.55-1.02 [facility] Work Phone: Comment on above: The validity of the calculated GFR & GFRAA in patients over 70 years has not been determined. Clinical correlation is essential. Serum or plasma urea nitroge n measurement (mass/volume)on 11-23-2021 Urea nitrogen [Mass/Vol] 11 mg/dL 7-18 [facility] Work Phone: Thin prep Papanicolaou smear with manual screeningon 11-23-2021 Thin prep Papanicolaou smear with manual screening 5 5-15 [facility] Work Phone: Basophil percentageon 2021 Chloride [Moles/Vol] 97 mmol/L 98-107 [facility] Work Phone: Glucose [Mass/Vol] 99 mg/dL 74-106 [facility] Work Phone: Potassium [Moles/Vol] 4.2 mmol/L 3.5-5.1 [facility] Work Phone: Sodium [Moles/Vol] 132 mmol/L 136-145 [facility] Work Phone: WBC (Bld) [#/Vol] 6.8 10*3/uL 4.4-11.0 [facility] Work Phone: Blood erythrocytes count (nu mber/volume)on 11-18-2021 RBC (Bld) [#/Vol] 4.12 10*6/uL 4.2-5.4 [facility] Work Phone: Blood hemoglobin measurement (mass/volume)on 11-18-2021 Hemoglobin (Bld) [Mass/Vol] 12.8 g/dL 12.0-15.0 [facility] Work Phone: Blood platelet mean volumeon 11-18-2021 Platelet mean volume (Bld) [Entitic vol] 10.5 fL 6.2-12.0 [facility] Work Phone: Determination of erythrocyte mean corpuscular volume (MCV)on 11-18-2021 MCV (RBC) [Entitic vol] 92.5 fL 81-99 [facility] Work Phone: Hematocrit Auto (Bld) [Volum e fraction]on 11-18-2021 Hematocrit (Bld) [Volume fraction] 38.1 % 37-47 [facility] Work Phone: Laboratory - Chemistry and C hemistry - challengeon 11-18-2021 CO2 [Moles/Vol] 30.0 mmol/L 21.0-32.0 [facility] Work Phone: Urea nitrogen/Creatinine [Mass ratio] 21.1 mg/mg 10-20 [facility] Work Phone: Laboratory - Hematology and Cell countson 11-18-2021 Erythrocyte distribution width (RBC) [Entitic vol] 41.6 fL 35.1-43.9 [facility] Work Phone: Erythrocyte distribution width (RBC) [Ratio] 12.3 % 11.6-14.6 [facility] Work Phone: MCH (RBC) [Entitic mass] 31.1 pg 27.0-32.0 [facility] Work Phone: MCHC Auto (RBC) [Mass/Vol]on 11-18-2021 MCHC (RBC) [Mass/Vol] 33.6 g/dL 32-36 [facility] Work Phone: No Panel Informationon 11-18 Estimated GFR (MDRD) Amer 94 mL/min >60 [facility] Work Phone: Comment on above: GFR Calc Estimated GFR (MDRD) Non-Af Amer 77 mL/min >60 [facility] Work Phone: Comment on above: Non- GFR Calc Platelets bldon 11-18-2021 Platelets (Bld) [#/Vol] 220 10*3/uL 150-450 [facility] Work Phone: Serum or plasma calcium josué urement (mass/volume)on 11-18-2021 Calcium [Mass/Vol] 8.8 mg/dL 8.5-10.1 [facility] Work Phone: Serum or plasma creatinine m easurement (mass/volume)on 11-18-2021 Creatinine [Mass/Vol] 0.76 mg/dL 0.55-1.02 [facility] Work Phone: Comment on above: The validity of the calculated GFR & GFRAA in patients over 70 years has not been determined. Clinical correlation is essential. Serum or plasma urea nitroge n measurement (mass/volume)on 11-18-2021 Urea nitrogen [Mass/Vol] 16 mg/dL 7-18 [facility] Work Phone: Thin prep Papanicolaou smear with manual screeningon 11-18-2021 Thin prep Papanicolaou smear with manual screening 5 5-15 [facility] Work Phone: Absolute lymphocyte counton 11-12-2021 Lymphocytes Auto (Unsp spec) [#/Vol] 1.86 10*3/uL 0.83-4.51 [facility] Work Phone: Basophil percentageon 2021 Basophils/100 WBC (Bld) 0.6 % 0-1 [facility] Work Phone: Chloride [Moles/Vol] 104 mmol/L 98-107 [facility] Work Phone: Eosinophils/100 WBC (Bld) 3.9 % 0-5 [facility] Work Phone: Glucose [Mass/Vol] 103 mg/dL 74-106 [facility] Work Phone: Comment on above: Fasting Glucose resu lt from 100 to 125 mg/dL suggests IMPAIRED HOMEOSTASIS per A.D.A. criteria. Neutrophils (Bld) [#/Vol] 3.7 10*3/uL 2.0-7.7 [facility] Work Phone: Neutrophils/100 WBC (Bld) 56.9 % 47-70 [facility] Work Phone: Potassium [Moles/Vol] 4.1 mmol/L 3.5-5.1 [facility] Work Phone: Sodium [Moles/Vol] 137 mmol/L 136-145 [facility] Work Phone: WBC (Bld) [#/Vol] 6.4 10*3/uL 4.4-11.0 [facility] Work Phone: [phone] Blood erythrocytes count (nu mber/volume)on 11-12-2021 RBC (Bld) [#/Vol] 3.99 10*6/uL 4.2-5.4 [facility] Work Phone: Blood hemoglobin measurement (mass/volume)on 11-12-2021 Hemoglobin (Bld) [Mass/Vol] 12.5 g/dL 12.0-15.0 [facility] Work Phone: Blood lymphocytes/100 leukoc yteson 11-12-2021 Lymphocytes/100 WBC (Bld) 29.0 % 19-41 [facility] Work Phone: Blood monocytes/100 leukocyt eson 11-12-2021 Monocytes/100 WBC (Bld) 9.4 % 0-10 [facility] Work Phone: Blood platelet mean volumeon 11-12-2021 Platelet mean volume (Bld) [Entitic vol] 10.1 fL 6.2-12.0 [facility] Work Phone: Determination of erythrocyte mean corpuscular volume (MCV)on 11-12-2021 MCV (RBC) [Entitic vol] 93.7 fL 81-99 [facility] Work Phone: Hematocrit Auto (Bld) [Volum e fraction]on 11-12-2021 Hematocrit (Bld) [Volume fraction] 37.4 % 37-47 [facility] Work Phone: Laboratory - Chemistry and C hemistry - challengeon 11-12-2021 CO2 [Moles/Vol] 30.0 mmol/L 21.0-32.0 [facility] Work Phone: Urea nitrogen/Creatinine [Mass ratio] 21.6 mg/mg 10-20 [facility] Work Phone: Laboratory - Hematology and Cell countson 11-12-2021 Erythrocyte distribution width (RBC) [Entitic vol] 41.7 fL 35.1-43.9 [facility] Work Phone: Erythrocyte distribution width (RBC) [Ratio] 12.0 % 11.6-14.6 [facility] Work Phone: Immature granulocytes/100 WBC (Bld) 0.200 % 0.0-0.9 [facility] Work Phone: Comment on above: IG% - Immature Granu locytes (promyelocytes, myelocytes and metamyelocytes) > 1% indicates that a LEFT SHIFT is Present. MCH (RBC) [Entitic mass] 31.3 pg 27.0-32.0 [facility] Work Phone: Nucleated RBC/100 WBC (Bld) [Ratio] 0 % 0-5 [facility] Work Phone: MCHC Auto (RBC) [Mass/Vol]on 11-12-2021 MCHC (RBC) [Mass/Vol] 33.4 g/dL 32-36 [facility] Work Phone: No Panel Informationon 11-12 Estimated Creatinine Clearance Calc 30.08 ml/min [facility] Work Phone: Estimated GFR (MDRD) Amer 122 mL/min >60 [facility] Work Phone: Comment on above: GFR Calc Estimated GFR (MDRD) Non-Af Amer 101 mL/min >60 [facility] Work Phone: Comment on above: Non- GFR Calc Platelets bldon 11-12-2021 Platelets (Bld) [#/Vol] 204 10*3/uL 150-450 [facility] Work Phone: Serum or plasma calcium josué urement (mass/volume)on 11-12-2021 Calcium [Mass/Vol] 8.6 mg/dL 8.5-10.1 [facility] Work Phone: Serum or plasma creatinine m easurement (mass/volume)on 11-12-2021 Creatinine [Mass/Vol] 0.60 mg/dL 0.55-1.02 [facility] Work Phone: Comment on above: The validity of the calculated GFR & GFRAA in patients over 70 years has not been determined. Clinical correlation is essential. Serum or plasma urea nitroge n measurement (mass/volume)on 11-12-2021 Urea nitrogen [Mass/Vol] 13 mg/dL 7-18 [facility] Work Phone: Thin prep Papanicolaou smear with manual screeningon 11-12-2021 Thin prep Papanicolaou smear with manual screening 3 5-15 [facility] Work Phone: INR in Blood by Coagulation assayon 11-11-2021 INR Coag (Bld) [Relative time] 2.3 {INR} [facility] Work Phone: Laboratory - Coagulationon 0 11-11-2021 PT Coag (PPP) [Time] 24.6 s 11.7-14.9 [facility] Work Phone: INR in Blood by Coagulation assayon 11-08-2021 INR Coag (Bld) [Relative time] 3.0 {INR} [facility] Work Phone: Laboratory - Coagulationon 0 11-08-2021 PT Coag (PPP) [Time] 30.5 s 11.7-14.9 [facility] Work Phone: Basophil percentageon 2021 Chloride [Moles/Vol] 106 mmol/L 98-107 [facility] Work Phone: Glucose [Mass/Vol] 107 mg/dL 74-106 [facility] Work Phone: Comment on above: Fasting Glucose resu lt from 100 to 125 mg/dL suggests IMPAIRED HOMEOSTASIS per A.D.A. criteria. Potassium [Moles/Vol] 4.0 mmol/L 3.5-5.1 [facility] Work Phone: Sodium [Moles/Vol] 139 mmol/L 136-145 [facility] Work Phone: Laboratory - Chemistry and C hemistry - challengeon 11-07-2021 CO2 [Moles/Vol] 30.0 mmol/L 21.0-32.0 [facility] Work Phone: Urea nitrogen/Creatinine [Mass ratio] 22.2 mg/mg 10-20 [facility] Work Phone: No Panel Informationon 11-07 Estimated Creatinine Clearance Calc 30.08 ml/min [facility] Work Phone: Estimated GFR (MDRD) Amer 116 mL/min >60 [facility] Work Phone: Comment on above: GFR Calc Estimated GFR (MDRD) Non-Af Amer 96 mL/min >60 [facility] Work Phone: Comment on above: Non- GFR Calc Serum or plasma calcium josué urement (mass/volume)on 11-07-2021 Calcium [Mass/Vol] 8.9 mg/dL 8.5-10.1 [facility] Work Phone: Serum or plasma creatinine m easurement (mass/volume)on 11-07-2021 Creatinine [Mass/Vol] 0.63 mg/dL 0.55-1.02 [facility] Work Phone: Comment on above: The validity of the calculated GFR & GFRAA in patients over 70 years has not been determined. Clinical correlation is essential. Serum or plasma urea nitroge n measurement (mass/volume)on 11-07-2021 Urea nitrogen [Mass/Vol] 14 mg/dL 7-18 [facility] Work Phone: Thin prep Papanicolaou smear with manual screeningon 11-07-2021 Thin prep Papanicolaou smear with manual screening 3 5-15 [facility] Work Phone: Absolute lymphocyte counton 11-05-2021 Lymphocytes Auto (Unsp spec) [#/Vol] 2.23 10*3/uL 0.83-4.51 [facility] Work Phone: Basophil percentageon 2021 Basophils/100 WBC (Bld) 0.7 % 0-1 [facility] Work Phone: Eosinophils/100 WBC (Bld) 2.6 % 0-5 [facility] Work Phone: [phone] Neutrophils (Bld) [#/Vol] 3.9 10*3/uL 2.0-7.7 [facility] Work Phone: [phone] Neutrophils/100 WBC (Bld) 56.0 % 47-70 [facility] Work Phone: WBC (Bld) [#/Vol] 7.0 10*3/uL 4.4-11.0 [facility] Work Phone: [phone] Blood erythrocytes count (nu mber/volume)on 11-05-2021 RBC (Bld) [#/Vol] 4.10 10*6/uL 4.2-5.4 [facility] Work Phone: Blood hemoglobin measurement (mass/volume)on 11-05-2021 Hemoglobin (Bld) [Mass/Vol] 12.8 g/dL 12.0-15.0 [facility] Work Phone: [phone] Blood lymphocytes/100 leukoc yteson 11-05-2021 Lymphocytes/100 WBC (Bld) 31.9 % 19-41 [facility] Work Phone: Blood monocytes/100 leukocyt eson 11-05-2021 Monocytes/100 WBC (Bld) 8.4 % 0-10 [facility] Work Phone: Blood platelet mean volumeon 11-05-2021 Platelet mean volume (Bld) [Entitic vol] 10.1 fL 6.2-12.0 [facility] Work Phone: Determination of erythrocyte mean corpuscular volume (MCV)on 11-05-2021 MCV (RBC) [Entitic vol] 91.5 fL 81-99 [facility] Work Phone: Hematocrit Auto (Bld) [Volum e fraction]on 11-05-2021 Hematocrit (Bld) [Volume fraction] 37.5 % 37-47 [facility] Work Phone: Laboratory - Hematology and Cell countson 11-05-2021 Erythrocyte distribution width (RBC) [Entitic vol] 41.1 fL 35.1-43.9 [facility] Work Phone: Erythrocyte distribution width (RBC) [Ratio] 12.4 % 11.6-14.6 [facility] Work Phone: Immature granulocytes/100 WBC (Bld) 0.400 % 0.0-0.9 [facility] Work Phone: Comment on above: IG% - Immature Granu locytes (promyelocytes, myelocytes and metamyelocytes) > 1% indicates that a LEFT SHIFT is Present. MCH (RBC) [Entitic mass] 31.2 pg 27.0-32.0 [facility] Work Phone: Nucleated RBC/100 WBC (Bld) [Ratio] 0 % 0-5 [facility] Work Phone: MCHC Auto (RBC) [Mass/Vol]on 11-05-2021 MCHC (RBC) [Mass/Vol] 34.1 g/dL 32-36 [facility] Work Phone: Platelets bldon 11-05-2021 Platelets (Bld) [#/Vol] 211 10*3/uL 150-450 [facility] Work Phone: Basophil percentageon 2021 Chloride [Moles/Vol] 105 mmol/L 98-107 [facility] Work Phone: Glucose [Mass/Vol] 106 mg/dL 74-106 [facility] Work Phone: Comment on above: Fasting Glucose resu lt from 100 to 125 mg/dL suggests IMPAIRED HOMEOSTASIS per A.D.A. criteria. Potassium [Moles/Vol] 3.5 mmol/L 3.5-5.1 [facility] Work Phone: Sodium [Moles/Vol] 137 mmol/L 136-145 [facility] Work Phone: Laboratory - Chemistry and C hemistry - challengeon 11-04-2021 CO2 [Moles/Vol] 26.0 mmol/L 21.0-32.0 [facility] Work Phone: Urea nitrogen/Creatinine [Mass ratio] 17.1 mg/mg 10-20 [facility] Work Phone: No Panel Informationon 11-04 Estimated Creatinine Clearance Calc 30.08 ml/min [facility] Work Phone: Estimated GFR (MDRD) Amer 126 mL/min >60 [facility] Work Phone: Comment on above: GFR Calc Estimated GFR (MDRD) Non-Af Amer 104 mL/min >60 [facility] Work Phone: Comment on above: Non- GFR Calc Serum or plasma calcium josué urement (mass/volume)on 11-04-2021 Calcium [Mass/Vol] 8.7 mg/dL 8.5-10.1 [facility] Work Phone: Serum or plasma creatinine m easurement (mass/volume)on 11-04-2021 Creatinine [Mass/Vol] 0.58 mg/dL 0.55-1.02 [facility] Work Phone: Comment on above: The validity of the calculated GFR & GFRAA in patients over 70 years has not been determined. Clinical correlation is essential. Serum or plasma urea nitroge n measurement (mass/volume)on 11-04-2021 Urea nitrogen [Mass/Vol] 10 mg/dL 7-18 [facility] Work Phone: Thin prep Papanicolaou smear with manual screeningon 11-04-2021 Thin prep Papanicolaou smear with manual screening 6 5-15 [facility] Work Phone: Absolute lymphocyte counton 11-03-2021 Lymphocytes Auto (Unsp spec) [#/Vol] 1.58 10*3/uL 0.83-4.51 [facility] Work Phone: Basophil percentageon 2021 Basophils/100 WBC (Bld) 0.6 % 0-1 [facility] Work Phone: [phone] Eosinophils/100 WBC (Bld) 1.7 % 0-5 [facility] Work Phone: Neutrophils (Bld) [#/Vol] 4.2 10*3/uL 2.0-7.7 [facility] Work Phone: Neutrophils/100 WBC (Bld) 63.5 % 47-70 [facility] Work Phone: WBC (Bld) [#/Vol] 6.6 10*3/uL 4.4-11.0 [facility] Work Phone: Blood erythrocytes count (nu mber/volume)on 11-03-2021 RBC (Bld) [#/Vol] 4.46 10*6/uL 4.2-5.4 [facility] Work Phone: Blood hemoglobin measurement (mass/volume)on 11-03-2021 Hemoglobin (Bld) [Mass/Vol] 13.8 g/dL 12.0-15.0 [facility] Work Phone: Blood lymphocytes/100 leukoc yteson 11-03-2021 Lymphocytes/100 WBC (Bld) 23.8 % 19-41 [facility] Work Phone: Blood monocytes/100 leukocyt eson 11-03-2021 Monocytes/100 WBC (Bld) 10.1 % 0-10 [facility] Work Phone: Blood platelet mean volumeon 11-03-2021 Platelet mean volume (Bld) [Entitic vol] 10.4 fL 6.2-12.0 [facility] Work Phone: Determination of erythrocyte mean corpuscular volume (MCV)on 11-03-2021 MCV (RBC) [Entitic vol] 90.4 fL 81-99 [facility] Work Phone: Hematocrit Auto (Bld) [Volum e fraction]on 11-03-2021 Hematocrit (Bld) [Volume fraction] 40.3 % 37-47 [facility] Work Phone: INR in Blood by Coagulation assayon 11-03-2021 INR Coag (Bld) [Relative time] 2.5 {INR} [facility] Work Phone: Laboratory - Coagulationon 0 11-03-2021 PT Coag (PPP) [Time] 26.7 s 11.7-14.9 [facility] Work Phone: Laboratory - Hematology and Cell countson 11-03-2021 Erythrocyte distribution width (RBC) [Entitic vol] 39.0 fL 35.1-43.9 [facility] Work Phone: Erythrocyte distribution width (RBC) [Ratio] 11.9 % 11.6-14.6 [facility] Work Phone: Immature granulocytes/100 WBC (Bld) 0.300 % 0.0-0.9 [facility] Work Phone: Comment on above: IG% - Immature Granu locytes (promyelocytes, myelocytes and metamyelocytes) > 1% indicates that a LEFT SHIFT is Present. MCH (RBC) [Entitic mass] 30.9 pg 27.0-32.0 [facility] Work Phone: Nucleated RBC/100 WBC (Bld) [Ratio] 0 % 0-5 [facility] Work Phone: MCHC Auto (RBC) [Mass/Vol]on 11-03-2021 MCHC (RBC) [Mass/Vol] 34.2 g/dL 32-36 [facility] Work Phone: Platelets bldon 11-03-2021 Platelets (Bld) [#/Vol] 188 10*3/uL 150-450 [facility] Work Phone: Absolute lymphocyte counton 11-02-2021 Lymphocytes Auto (Unsp spec) [#/Vol] 1.37 10*3/uL 0.83-4.51 [facility] Work Phone: Basophil percentageon 2021 Basophil percentage 0 SEEN /hpf 0-5 [facility] Work Phone: Basophils/100 WBC (Bld) 0.4 % 0-1 [facility] Work Phone: Chloride [Moles/Vol] 92 mmol/L 98-107 [facility] Work Phone: Eosinophils/100 WBC (Bld) 0.3 % 0-5 [facility] Work Phone: Glucose [Mass/Vol] 182 mg/dL 74-106 [facility] Work Phone: Comment on above: Fasting Glucose resu lt greater than or equal to 126 mg/dL suggests DIABETES MELLITUS per A.D.A. criteria. Neutrophils (Bld) [#/Vol] 6.0 10*3/uL 2.0-7.7 [facility] Work Phone: Neutrophils/100 WBC (Bld) 75.5 % 47-70 [facility] Work Phone: Potassium [Moles/Vol] 3.2 mmol/L 3.5-5.1 [facility] Work Phone: Sodium [Moles/Vol] 129 mmol/L 136-145 [facility] Work Phone: WBC (Bld) [#/Vol] 7.9 10*3/uL 4.4-11.0 [facility] Work Phone: Bilirubin Test strip Ql (U)o n 11-02-2021 Bilirubin Ql (U) Negative Negative [facility] Work Phone: Blood erythrocytes count (nu mber/volume)on 11-02-2021 RBC (Bld) [#/Vol] 4.51 10*6/uL 4.2-5.4 [facility] Work Phone: Blood hemoglobin measurement (mass/volume)on 11-02-2021 Hemoglobin (Bld) [Mass/Vol] 14.1 g/dL 12.0-15.0 [facility] Work Phone: Blood lymphocytes/100 leukoc yteson 11-02-2021 Lymphocytes/100 WBC (Bld) 17.4 % 19-41 [facility] Work Phone: Blood monocytes/100 leukocyt eson 11-02-2021 Monocytes/100 WBC (Bld) 6.1 % 0-10 [facility] Work Phone: Blood platelet mean volumeon 11-02-2021 Platelet mean volume (Bld) [Entitic vol] 10.1 fL 6.2-12.0 [facility] Work Phone: Determination of erythrocyte mean corpuscular volume (MCV)on 11-02-2021 MCV (RBC) [Entitic vol] 89.1 fL 81-99 [facility] Work Phone: Hematocrit Auto (Bld) [Volum e fraction]on 11-02-2021 Hematocrit (Bld) [Volume fraction] 40.2 % 37-47 [facility] Work Phone: INR in Blood by Coagulation assayon 11-02-2021 INR Coag (Bld) [Relative time] 2.2 {INR} [facility] Work Phone: Ketones Test strip Ql (U)on 11-02-2021 Ketones Ql (U) 5 mg/dl Negative [facility] Work Phone: Laboratory - Chemistry and C hemistry - challengeon 11-02-2021 Sodium (U) [Moles/Vol] 35 mmol/L Not Establ. [facility] Work Phone: CO2 [Moles/Vol] 30.0 mmol/L 21.0-32.0 [facility] Work Phone: Urea nitrogen/Creatinine [Mass ratio] 18.4 mg/mg 10-20 [facility] Work Phone: Laboratory - Coagulationon 0 11-02-2021 PT Coag (PPP) [Time] 23.8 s 11.7-14.9 [facility] Work Phone: Laboratory - Hematology and Cell countson 11-02-2021 Erythrocyte distribution width (RBC) [Entitic vol] 37.6 fL 35.1-43.9 [facility] Work Phone: Erythrocyte distribution width (RBC) [Ratio] 11.7 % 11.6-14.6 [facility] Work Phone: Immature granulocytes/100 WBC (Bld) 0.300 % 0.0-0.9 [facility] Work Phone: Comment on above: IG% - Immature Granu locytes (promyelocytes, myelocytes and metamyelocytes) > 1% indicates that a LEFT SHIFT is Present. MCH (RBC) [Entitic mass] 31.3 pg 27.0-32.0 [facility] Work Phone: Nucleated RBC/100 WBC (Bld) [Ratio] 0 % 0-5 [facility] Work Phone: MCHC Auto (RBC) [Mass/Vol]on 11-02-2021 MCHC (RBC) [Mass/Vol] 35.1 g/dL 32-36 [facility] Work Phone: Mucus LM Ql (Urine sed)on Mucus Ql (Urine sed) 0 SEEN /hpf [facility] Work Phone: Nitrite Test strip Ql (U)on 11-02-2021 Nitrite Ql (U) Negative Negative [facility] Work Phone: No Panel Informationon 11-02 Estimated Creatinine Clearance Calc 36.68 ml/min [facility] Work Phone: Estimated GFR (MDRD) Amer 86 mL/min >60 [facility] Work Phone: Comment on above: GFR Calc Estimated GFR (MDRD) Non-Af Amer 71 mL/min >60 [facility] Work Phone: Comment on above: Non- GFR Calc Troponin I High Sensitivity 12 pg/mL 3.0-54.0 [facility] Work Phone: Comment on above: Please Note: New Amber t Units and Gender Specific Reference Ranges. For more information see Policy Stat Procedure [place] High Sensitivity Troponin (TNIH) and attachments. Platelets bldon 11-02-2021 Platelets (Bld) [#/Vol] 222 10*3/uL 150-450 [facility] Work Phone: Protein Test strip Ql (U)on 11-02-2021 Protein Ql (U) Negative Negative [facility] Work Phone: Serum or plasma calcium josué urement (mass/volume)on 11-02-2021 Calcium [Mass/Vol] 9.1 mg/dL 8.5-10.1 [facility] Work Phone: Serum or plasma creatinine m easurement (mass/volume)on 11-02-2021 Creatinine [Mass/Vol] 0.82 mg/dL 0.55-1.02 [place] [facility] Work Phone: Comment on above: The validity of the calculated GFR & GFRAA in patients over 70 years has not been determined. Clinical correlation is essential. Serum or plasma urea nitroge n measurement (mass/volume)on 11-02-2021 Urea nitrogen [Mass/Vol] 15 mg/dL 7-18 [facility] Work Phone: Squamous epithelial cells de tection in urine sediment by light microscopyon 11-02-2021 Epithelial cells.squamous LM Ql (Urine sed) 0-5 SEEN /hpf 5-10 [facility] Work Phone: Thin prep Papanicolaou smear with manual screeningon 11-02-2021 Thin prep Papanicolaou smear with manual screening 275 mOsm/KG 280-301 [facility] Work Phone: Thin prep Papanicolaou smear with manual screening 7 5-15 [facility] Work Phone: Urine blood detectionon 06-0 RBC Ql (U) 25 /ul Negative [facility] Work Phone: RBC Ql (U) 0-5 SEEN /hpf 0-5 [facility] Work Phone: Urine clarityon 11-02-2021 Clarity (U) Clear Clear [facility] Work Phone: Urine color determinationon 11-02-2021 Color (U) Yellow Yellow [facility] Work Phone: Urine glucose detectionon Glucose Ql (U) Normal mg/dl Normal [facility] Work Phone: Urine leukocyte esterase det ection by dipstickon 11-02-2021 Leukocyte esterase Test strip Ql (U) Negative Negative [facility] Work Phone: Urine osmolality measurement on 11-02-2021 Osmolality (U) [Osmolality] 253 mOsm/KG >50 [facility] Work Phone: Comment on above: Normal Urine Referen ce Ranges Random: 50 - 1200 mOsm/kg H20 depending on fluid intake Random: >850 mOsm/kg after 12 hour fluid restriction 24 hour: ~300 - 900 mOsm/kg H2O Urine pHon 11-02-2021 pH (U) 6.0 [pH] 5.0 - 8.0 [facility] Work Phone: Urine sediment bacteria coun t by microscopy (number/high power field)on 11-02-2021 Bacteria LM.HPF (Urine sed) [#/Area] 0 /[HPF] None Seen [facility] Work Phone: Urine specific gravity measu rementon 06-07-2022 Specific gravity (U) [Rel density] 1.015 1.002-1.03 0 [facility] Work Phone: Urobilinogen Auto test strip Ql (U)on 11-02-2021 Urobilinogen Ql (U) Normal mg/dl Normal [facility] Work Phone: Basophil percentageon 2021 Chloride [Moles/Vol] 99 mmol/L 98-107 [facility] Work Phone: Glucose [Mass/Vol] 108 mg/dL 74-106 [facility] Work Phone: Comment on above: Fasting Glucose resu lt from 100 to 125 mg/dL suggests IMPAIRED HOMEOSTASIS per A.D.A. criteria. Potassium [Moles/Vol] 4.2 mmol/L 3.5-5.1 [facility] Work Phone: Sodium [Moles/Vol] 137 mmol/L 136-145 [facility] Work Phone: INR in Blood by Coagulation assayon 10-21-2021 INR Coag (Bld) [Relative time] 2.1 {INR} [facility] Work Phone: Laboratory - Chemistry and C hemistry - challengeon 10-21-2021 CO2 [Moles/Vol] 34.0 mmol/L 21.0-32.0 [facility] Work Phone: Urea nitrogen/Creatinine [Mass ratio] 19.7 mg/mg 10-20 [facility] Work Phone: Laboratory - Coagulationon 0 10-21-2021 PT Coag (PPP) [Time] 23.2 s 11.7-14.9 [facility] Work Phone: No Panel Informationon 10-21 Estimated GFR (MDRD) Amer 93 mL/min >60 [facility] Work Phone: Comment on above: GFR Calc Estimated GFR (MDRD) Non-Af Amer 77 mL/min >60 [facility] Work Phone: Comment on above: Non- GFR Calc Serum or plasma calcium josué urement (mass/volume)on 10-21-2021 Calcium [Mass/Vol] 9.1 mg/dL 8.5-10.1 [facility] Work Phone: Serum or plasma creatinine m easurement (mass/volume)on 10-21-2021 Creatinine [Mass/Vol] 0.76 mg/dL 0.55-1.02 [facility] Work Phone: Comment on above: The validity of the calculated GFR & GFRAA in patients over 70 years has not been determined. Clinical correlation is essential. Serum or plasma urea nitroge n measurement (mass/volume)on 10-21-2021 Urea nitrogen [Mass/Vol] 15 mg/dL 7- [facility] Work Phone: Thin prep Papanicolaou smear with manual screeningon 10-21-2021 Thin prep Papanicolaou smear with manual screening 4 5- [facility] Work Phone: INR in Blood by Coagulation assayon 10-13-2021 INR Coag (Bld) [Relative time] 3.1 {INR} [facility] Work Phone: Laboratory - Coagulationon 0 10-13-2021 PT Coag (PPP) [Time] 31.8 s 11.7-14.9 [facility] Work Phone: Laboratory - Coagulationon 0 10-06-2021 INR Coag (Bld) [Relative time] 1.6 {INR} [facility] Work Phone: Comment on above: Critical Value > 4.0 Whole blood prothrombin time on 10-06-2021 PT Coag (Bld) [Time] 19.7 s 11.7-14.9 [facility] Work Phone: Basophil percentageon 2021 Chloride [Moles/Vol] 100 mmol/L 98-107 [facility] Work Phone: Glucose [Mass/Vol] 87 mg/dL 74-106 [facility] Work Phone: Potassium [Moles/Vol] 3.6 mmol/L 3.5-5.1 [facility] Work Phone: Sodium [Moles/Vol] 138 mmol/L 136-145 [facility] Work Phone: Laboratory - Chemistry and C hemistry - challengeon 09-29-2021 CO2 [Moles/Vol] 31.0 mmol/L 21.0-32.0 [facility] Work Phone: Natriuretic peptide B (Bld) [Mass/Vol] 372.7 pg/mL 0-100 [facility] Work Phone: Urea nitrogen/Creatinine [Mass ratio] 17.1 mg/mg 10-20 [facility] Work Phone: No Panel Informationon 09-29 Estimated GFR (MDRD) Amer 113 mL/min >60 [facility] Work Phone: Comment on above: GFR Calc Estimated GFR (MDRD) Non-Af Amer 94 mL/min >60 [facility] Work Phone: Comment on above: Non- GFR Calc Serum or plasma calcium josué urement (mass/volume)on 09-29-2021 Calcium [Mass/Vol] 8.7 mg/dL 8.5-10.1 [facility] Work Phone: Serum or plasma creatinine m easurement (mass/volume)on 09-29-2021 Creatinine [Mass/Vol] 0.64 mg/dL 0.55-1.02 [facility] Work Phone: Comment on above: The validity of the calculated GFR & GFRAA in patients over 70 years has not been determined. Clinical correlation is essential. Serum or plasma urea nitroge n measurement (mass/volume)on 09-29-2021 Urea nitrogen [Mass/Vol] 11 mg/dL 7-18 [facility] Work Phone: Thin prep Papanicolaou smear with manual screeningon 09-29-2021 Thin prep Papanicolaou smear with manual screening 7 5-15 [facility] Work Phone: Laboratory - Coagulationon 0 09-14-2021 INR Coag (Bld) [Relative time] 2.1 {INR} [facility] Work Phone: Comment on above: Critical Value > 4.0 Whole blood prothrombin time on 09-14-2021 PT Coag (Bld) [Time] 25.1 s 11.7-14.9 [facility] Work Phone: Laboratory - Coagulationon 0 08-27-2021 INR Coag (Bld) [Relative time] 2.4 {INR} [facility] Work Phone: Comment on above: Critical Value > 4.0 Whole blood prothrombin time on 08-27-2021 PT Coag (Bld) [Time] 27.5 s 11.7-14.9 [facility] Work Phone: Laboratory - Coagulationon 0 08-11-2021 INR Coag (Bld) [Relative time] 1.3 {INR} [facility] Work Phone: Comment on above: Critical Value > 4.0 Whole blood prothrombin time on 08-11-2021 PT Coag (Bld) [Time] 15.7 s 11.7-14.9 [facility] Work Phone: Laboratory - Coagulationon 0 07-28-2021 INR Coag (Bld) [Relative time] 1.2 {INR} [facility] Work Phone: Comment on above: Critical Value > 4.0 Whole blood prothrombin time on 07-28-2021 PT Coag (Bld) [Time] 15.1 s 11.7-14.9 [facility] Work Phone: Laboratory - Coagulationon 0 07-14-2021 INR Coag (Bld) [Relative time] 1.5 {INR} [facility] Work Phone: Comment on above: Critical Value > 4.0 Whole blood prothrombin time on 07-14-2021 PT Coag (Bld) [Time] 18.2 s 11.9-14.4 [facility] Work Phone: [phone] Absolute lymphocyte counton 06-26-2021 Lymphocytes Auto (Unsp spec) [#/Vol] 2.42 10*3/uL 0.83-4.51 [facility] Work Phone: Basophil percentageon 2021 Basophils/100 WBC (Bld) 0.7 % 0-1 [facility] Work Phone: Chloride [Moles/Vol] 105 mmol/L 98-107 [facility] Work Phone: Eosinophils/100 WBC (Bld) 3.6 % 0-5 [facility] Work Phone: Glucose [Mass/Vol] 122 mg/dL 74-106 [facility] Work Phone: Comment on above: Fasting Glucose resu lt from 100 to 125 mg/dL suggests IMPAIRED HOMEOSTASIS per A.D.A. criteria. Neutrophils (Bld) [#/Vol] 5.0 10*3/uL 2.0-7.7 [facility] Work Phone: [phone] Neutrophils/100 WBC (Bld) 58.8 % 47-70 [facility] Work Phone: Potassium [Moles/Vol] 3.8 mmol/L 3.5-5.1 [facility] Work Phone: Sodium [Moles/Vol] 140 mmol/L 136-145 [facility] Work Phone: [phone] WBC (Bld) [#/Vol] 8.6 10*3/uL 4.4-11.0 [facility] Work Phone: Blood erythrocytes count (nu mber/volume)on 06-26-2021 RBC (Bld) [#/Vol] 5.15 10*6/uL 4.2-5.4 [facility] Work Phone: [phone] Blood hemoglobin measurement (mass/volume)on 06-26-2021 Hemoglobin (Bld) [Mass/Vol] 15.7 g/dL 12.0-15.0 [facility] Work Phone: [phone] Blood lymphocytes/100 leukoc yteson 06-26-2021 Lymphocytes/100 WBC (Bld) 28.3 % 19-41 [facility] Work Phone: Blood monocytes/100 leukocyt eson 06-26-2021 Monocytes/100 WBC (Bld) 8.4 % 0-10 [facility] Work Phone: Blood platelet mean volumeon 06-26-2021 Platelet mean volume (Bld) [Entitic vol] 10.2 fL 6.2-12.0 [facility] Work Phone: Determination of erythrocyte mean corpuscular volume (MCV)on 06-26-2021 MCV (RBC) [Entitic vol] 94.0 fL 81-99 [facility] Work Phone: Hematocrit Auto (Bld) [Volum e fraction]on 06-26-2021 Hematocrit (Bld) [Volume fraction] 48.4 % 37-47 [facility] Work Phone: Laboratory - Chemistry and C hemistry - challengeon 06-26-2021 CO2 [Moles/Vol] 32.0 mmol/L 21.0-32.0 [facility] Work Phone: Urea nitrogen/Creatinine [Mass ratio] 20.4 mg/mg 10-20 [facility] Work Phone: Laboratory - Hematology and Cell countson 06-26-2021 Erythrocyte distribution width (RBC) [Entitic vol] 43.7 fL 35.1-43.9 [facility] Work Phone: Erythrocyte distribution width (RBC) [Ratio] 12.7 % 11.6-14.6 [facility] Work Phone: Immature granulocytes/100 WBC (Bld) 0.200 % 0.0-0.9 [facility] Work Phone: Comment on above: IG% - Immature Granu locytes (promyelocytes, myelocytes and metamyelocytes) > 1% indicates that a LEFT SHIFT is Present. MCH (RBC) [Entitic mass] 30.5 pg 27.0-32.0 [facility] Work Phone: Nucleated RBC/100 WBC (Bld) [Ratio] 0 % 0-5 [facility] Work Phone: MCHC Auto (RBC) [Mass/Vol]on 06-26-2021 MCHC (RBC) [Mass/Vol] 32.4 g/dL 32-36 [facility] Work Phone: No Panel Informationon 06-26 Estimated Creatinine Clearance Calc 32.17 ml/min [facility] Work Phone: Estimated GFR (MDRD) Amer 114 mL/min >60 [facility] Work Phone: Comment on above: GFR Calc Estimated GFR (MDRD) Non-Af Amer 94 mL/min >60 [facility] Work Phone: Comment on above: Non- GFR Calc Platelets bldon 06-26-2021 Platelets (Bld) [#/Vol] 234 10*3/uL 150-450 [facility] Work Phone: Serum or plasma calcium josué urement (mass/volume)on 06-26-2021 Calcium [Mass/Vol] 8.6 mg/dL 8.5-10.1 [facility] Work Phone: Serum or plasma creatinine m easurement (mass/volume)on 06-26-2021 Creatinine [Mass/Vol] 0.64 mg/dL 0.55-1.02 [facility] Work Phone: Comment on above: The validity of the calculated GFR & GFRAA in patients over 70 years has not been determined. Clinical correlation is essential. Serum or plasma urea nitroge n measurement (mass/volume)on 06-26-2021 Urea nitrogen [Mass/Vol] 13 mg/dL 7-18 [facility] Work Phone: Thin prep Papanicolaou smear with manual screeningon 06-26-2021 Thin prep Papanicolaou smear with manual screening 3 5-15 [facility] Work Phone: INR in Blood by Coagulation assayon 06-24-2021 INR Coag (Bld) [Relative time] 1.4 {INR} [facility] Work Phone: [phone] Laboratory - Coagulationon 0 06-24-2021 PT Coag (PPP) [Time] 16.2 s 11.7-14.9 [facility] Work Phone: No Panel Informationon 06-24 SARS-CoV-2 Antigen (Rapid) [facility] Work Phone: [phone] Absolute lymphocyte counton 06-18-2021 Lymphocytes Auto (Unsp spec) [#/Vol] 1.81 10*3/uL 0.83-4.51 [facility] Work Phone: [phone] Basophil percentageon 2021 Basophils/100 WBC (Bld) 0.5 % 0-1 [facility] Work Phone: Chloride [Moles/Vol] 103 mmol/L 98-107 [facility] Work Phone: Eosinophils/100 WBC (Bld) 4.1 % 0-5 [facility] Work Phone: [phone] Glucose [Mass/Vol] 127 mg/dL 74-106 [facility] Work Phone: [phone] Comment on above: Fasting Glucose resu lt greater than or equal to 126 mg/dL suggests DIABETES MELLITUS per A.D.A. criteria. Neutrophils (Bld) [#/Vol] 5.7 10*3/uL 2.0-7.7 [facility] Work Phone: Neutrophils/100 WBC (Bld) 66.6 % 47-70 [facility] Work Phone: [phone] Potassium [Moles/Vol] 3.7 mmol/L 3.5-5.1 [facility] Work Phone: Sodium [Moles/Vol] 136 mmol/L 136-145 [facility] Work Phone: WBC (Bld) [#/Vol] 8.5 10*3/uL 4.4-11.0 [facility] Work Phone: Blood erythrocytes count (nu mber/volume)on 06-18-2021 RBC (Bld) [#/Vol] 4.20 10*6/uL 4.2-5.4 [facility]: Blood hemoglobin measurement (mass/volume)on 06-18-2021 Hemoglobin (Bld) [Mass/Vol] 13.0 g/dL 12.0-15.0 [facility] Work Phone: Blood lymphocytes/100 leukoc yteson 06-18-2021 Lymphocytes/100 WBC (Bld) 21.3 % 19-41 [facility] Work Phone: Blood monocytes/100 leukocyt eson 06-18-2021 Monocytes/100 WBC (Bld) 7.4 % 0-10 [facility] Work Phone: Blood platelet mean volumeon 06-18-2021 Platelet mean volume (Bld) [Entitic vol] 10.5 fL 6.2-12.0 [facility] Work Phone: Determination of erythrocyte mean corpuscular volume (MCV)on 06-18-2021 MCV (RBC) [Entitic vol] 89.8 fL 81-99 [facility] Work Phone: Hematocrit Auto (Bld) [Volum e fraction]on 06-18-2021 Hematocrit (Bld) [Volume fraction] 37.7 % 37-47 [facility] Work Phone: INR in Blood by Coagulation assayon 06-18-2021 INR Coag (Bld) [Relative time] 2.3 {INR} [facility] Work Phone: Laboratory - Chemistry and C hemistry - challengeon 06-18-2021 CO2 [Moles/Vol] 28.0 mmol/L 21.0-32.0 [facility] Work Phone: Urea nitrogen/Creatinine [Mass ratio] 23.0 mg/mg 10-20 [facility] Work Phone: Laboratory - Coagulationon 0 06-18-2021 PT Coag (PPP) [Time] 24.7 s 11.7-14.9 [facility] Work Phone: Laboratory - Hematology and Cell countson 06-18-2021 Erythrocyte distribution width (RBC) [Entitic vol] 40.2 fL 35.1-43.9 [facility] Work Phone: Erythrocyte distribution width (RBC) [Ratio] 12.2 % 11.6-14.6 [facility] Work Phone: Immature granulocytes/100 WBC (Bld) 0.100 % 0.0-0.9 [facility] Work Phone: Comment on above: IG% - Immature Granu locytes (promyelocytes, myelocytes and metamyelocytes) > 1% indicates that a LEFT SHIFT is Present. MCH (RBC) [Entitic mass] 31.0 pg 27.0-32.0 [facility] Work Phone: Nucleated RBC/100 WBC (Bld) [Ratio] 0 % 0-5 [facility] Work Phone: MCHC Auto (RBC) [Mass/Vol]on 06-18-2021 MCHC (RBC) [Mass/Vol] 34.5 g/dL 32-36 [facility] Work Phone: No Panel Informationon 06-18 SARS-CoV-2 Antigen (Rapid) [facility] Work Phone: Estimated Creatinine Clearance Calc 32.17 ml/min [facility] Work Phone: Estimated GFR (MDRD) Amer 103 mL/min >60 [facility] Work Phone: Comment on above: GFR Calc Estimated GFR (MDRD) Non-Af Amer 85 mL/min >60 [facility] Work Phone: Comment on above: Non- GFR Calc Platelets bldon 06-18-2021 Platelets (Bld) [#/Vol] 180 10*3/uL 150-450 [facility] Work Phone: Serum or plasma calcium josué urement (mass/volume)on 06-18-2021 Calcium [Mass/Vol] 8.1 mg/dL 8.5-10.1 [facility] Work Phone: Serum or plasma creatinine m easurement (mass/volume)on 06-18-2021 Creatinine [Mass/Vol] 0.70 mg/dL 0.55-1.02 [facility] Work Phone: Comment on above: The validity of the calculated GFR & GFRAA in patients over 70 years has not been determined. Clinical correlation is essential. Serum or plasma urea nitroge n measurement (mass/volume)on 06-18-2021 Urea nitrogen [Mass/Vol] 16 mg/dL 7-18 [facility] Work Phone: Thin prep Papanicolaou smear with manual screeningon 06-18-2021 Thin prep Papanicolaou smear with manual screening 5 5-15 [facility] Work Phone: Basophil percentageon 2021 Bilirubin [Mass/Vol] 0.50 mg/dL 0.20-1.00 [facility] Work Phone: Comment on above: For patients on eltr ombopag therapy, use of Dimension [place] TBIL is not recommended. Protein [Mass/Vol] 6.8 g/dL 6.4-8.2 [facility] Work Phone: Laboratory - Chemistry and C hemistry - challengeon 06-17-2021 ALP [Catalytic activity/Vol] 68 U/L 45-117 [facility] Work Phone: ALT [Catalytic activity/Vol] 24 U/L 13-56 [facility] Work Phone: Globulin (S) [Mass/Vol] 3.7 g/dL 2.2-4.2 [facility] Work Phone: Serum or plasma albumin josué urement (mass/volume)on 06-17-2021 Albumin [Mass/Vol] 3.1 g/dL 3.2-5.0 [facility] Work Phone: Serum or plasma albumin/glob ulin mass ratioon 06-17-2021 Albumin/Globulin [Mass ratio] 0.8 {ratio} 0.9-2.4 [facility] Work Phone: Thin prep Papanicolaou smear with manual screeningon 06-17-2021 Thin prep Papanicolaou smear with manual screening 23 U/L 15-37 [facility] Work Phone: Laboratory - Coagulationon 0 06-10-2021 INR Coag (Bld) [Relative time] 2.0 {INR} [facility] Work Phone: Comment on above: Critical Value > 4.0 Whole blood prothrombin time on 06-10-2021 PT Coag (Bld) [Time] 22.8 s 11.9-14.4 [facility] Work Phone: Laboratory - Coagulationon 1 07-13-2020 INR Coag (Bld) [Relative time] 1.9 {INR} [facility] Work Phone: Comment on above: Critical Value > 4.0 Whole blood prothrombin time on 05-12-2021 PT Coag (Bld) [Time] 22.0 s 11.9-14.4 [facility] Work Phone: PROon 04-16-2019 INR Coag (PPP) [Relative time] 2.3 {INR} Normal [facility] ([place]) Comment on above: Order Comment: order ed secondary to warfarin order Result Comment: [employer] (CHEST, 1992, [id number]) recommended therapeutic range for oral anticoagulant therapy is: LOW RISK: Prophylaxis of venous thrombosis INR: 2.0-3.0 Treatment of pulmonary embolism 2.0-3.0 Prevention of systemic embolism 2.0-3.0 HIGH RISK: Mechanical prosthetic valves 2.5-3.5 Performed By: #### C BC, ADIFF, ANEU, PRO, CMP, GFR #### [facility] [address] [place] [id number] PT Coag (PPP) [Time] 26.9 s High 9.0-14.6 [facility] ([place]) Comment on above: Order Comment: order ed secondary to warfarin order Result Comment: Effe ctive 12/11/07, Protime results may be affected by some antibiotics (i.e. Ciprofloxacin, Azithromycin, Bactrim) which may potentiate the action of oral anticoagulants, with further increases in Protime/INR. Performed By: #### C BC, ADIFF, ANEU, PRO, CMP, GFR #### [address] [address] .Auto Diffon 04-15-2019 Ammonia (P) [Mass/Vol] 0.50 10 3/mcL Normal 0.09-1.40 [facility] ([place]) Comment on above: Performed By: #### C BC, ADIFF, ANEU, PRO, CMP, GFR #### [address] [address] Basophils (Bld) [#/Vol] 0.10 10 3/mcL Normal 0.00-0.27 [facility] ([place]) Comment on above: Performed By: #### C BC, ADIFF, ANEU, PRO, CMP, GFR #### [address] [address] Basophils/100 WBC (Bld) 0.8 % Normal 0.0-2.5 [facility] ([place] Comment on above: Performed By: #### C BC, ADIFF, ANEU, PRO, CMP, GFR #### [address] [address] Eosinophils (Bld) [#/Vol] 0.40 10 3/mcL Normal 0.00-0.65 [facility] ([place]) Comment on above: Performed By: #### C BC, ADIFF, ANEU, PRO, CMP, GFR #### [address] [address] Eosinophils/100 WBC (Bld) 5.9 % Normal 0.0-6.0 [facility] ([place]) Comment on above: Performed By: #### C BC, ADIFF, ANEU, PRO, CMP, GFR #### [address] [address] Lymphocytes (Bld) [#/Vol] 2.40 10 3/mcL Normal 0.90-4.32 [facility] ([place]) Comment on above: Performed By: #### C BC, ADIFF, ANEU, PRO, CMP, GFR #### [address] [address] Lymphocytes/100 WBC (Bld) 34.4 % Normal 20.0-40.0 [facility] ([place] Comment on above: Performed By: #### C BC, ADIFF, ANEU, PRO, CMP, GFR #### [address] [address] Monocytes/100 WBC (Bld) 6.5 % Normal 2.0-13.0 [facility] [place] Comment on above: Performed By: #### C BC, ADIFF, ANEU, PRO, CMP, GFR #### [address] [address] Neutrophils/100 WBC (Bld) 52.4 % Normal 50.0-75.0 [facility] ([place]) Comment on above: Performed By: #### C BC, ADIFF, ANEU, PRO, CMP, GFR #### [address] [address] .GFRon 04-15-2019 GFR >60 Normal [facility] ([place]) Comment on above: Result Comment: GFR Population [...] BC, ADIFF, ANEU, PRO, CMP, GFR #### [address] [address] GFR Non- >60 Normal [facility] ([place]) Comment on above: Result Comment: GFR Population [...] BC, ADIFF, ANEU, PRO, CMP, GFR #### [address] [address] .NEUABSon 04-15-2019 Neutrophils (Bld) [#/Vol] 3.60 10 3/mcL Normal 2.25-8.10 [facility] ([place]) Comment on above: Performed By: #### C BC, ADIFF, ANEU, PRO, CMP, GFR #### [address] [address] BMPon 04-15-2019 Creatinine [Mass/Vol] 0.64 mg/dL Normal 0.50-1.20 [facility] ([place]) Comment on above: Performed By: #### C BC, ADIFF, ANEU, PRO, CMP, GFR #### [address] [address] Urea nitrogen/Creatinine [Mass ratio] 17.2 ratio Normal 10.0-22.0 [facility] ([place]) Comment on above: Performed By: #### C BC, ADIFF, ANEU, PRO, CMP, GFR #### [address] [address] Calcium [Mass/Vol] 7.9 mg/dL Low 8.4-10.1 [facility] ([place]) Comment on above: Performed By: #### C BC, ADIFF, ANEU, PRO, CMP, GFR #### [place] [address] Chloride [Moles/Vol] 109 mmol/L Normal 98-110 [facility] ([place]) Comment on above: Performed By: #### C BC, ADIFF, ANEU, PRO, CMP, GFR #### [address] [address] CO2 [Moles/Vol] 29 mmol/L Normal 22-32 [facility] ([place]) Comment on above: Performed By: #### C BC, ADIFF, ANEU, PRO, CMP, GFR #### [place] [address] Electrolyte Balance 6.0 mEq/L Normal 4.0-15.0 [facility] ([place]) Comment on above: Performed By: #### C BC, ADIFF, ANEU, PRO, CMP, GFR #### [place] [id number] Glucose [Mass/Vol] 100 mg/dL Normal 82-115 [facility] ([place]) Comment on above: Performed By: #### C BC, ADIFF, ANEU, PRO, CMP, GFR #### [place] [address] Potassium [Moles/Vol] 4.0 mmol/L Normal 3.5-5.0 [facility] ([place]) Comment on above: Performed By: #### C BC, ADIFF, ANEU, PRO, CMP, GFR #### [address] [address] Sodium [Moles/Vol] 144 mmol/L Normal 136-145 [facility] ([place] Comment on above: Performed By: #### C BC, ADIFF, ANEU, PRO, CMP, GFR #### [address] [address] Urea nitrogen [Mass/Vol] 11.0 mg/dL Normal 8.0-22.0 [facility] ([place]) Comment on above: Performed By: #### C BC, ADIFF, ANEU, PRO, CMP, GFR #### [address] [address] CBCon 04-15-2019 Erythrocyte distribution width (RBC) [Ratio] 13.5 % Normal 11.5-15.5 [facility] ([place]) Comment on above: Performed By: #### C BC, ADIFF, ANEU, PRO, CMP, GFR #### [place] [id number] Hematocrit (Bld) [Volume fraction] 33.9 % Low 34.0-46.0 [facility] ([place]) Comment on above: Performed By: #### C BC, ADIFF, ANEU, PRO, CMP, GFR #### [place] [id number] Hemoglobin (Bld) [Mass/Vol] 11.6 G/dL Low 12.0-16.0 [facility] ([place] Comment on above: Performed By: #### C BC, ADIFF, ANEU, PRO, CMP, GFR #### [place] [id number] MCH (RBC) [Entitic mass] 31.8 pg Normal 27.0-33.0 [facility] ([place]) Comment on above: Performed By: #### C BC, ADIFF, ANEU, PRO, CMP, GFR #### [place] [id number] MCHC (RBC) [Mass/Vol] 34.3 G/dL Normal 32.0-36.0 [facility] ([place]) Comment on above: Performed By: #### C BC, ADIFF, ANEU, PRO, CMP, GFR #### [place] [id number] MCV (RBC) [Entitic vol] 92.7 fL Normal 80.0-99.0 [facility] ([place]) Comment on above: Performed By: #### C BC, ADIFF, ANEU, PRO, CMP, GFR #### [place] [id number] Platelet mean volume (Bld) [Entitic vol] 8.6 fL Normal 6.6-10.5 [facility] ([place]) Comment on above: Performed By: #### C BC, ADIFF, ANEU, PRO, CMP, GFR #### [place] [id number] Platelets (Bld) [#/Vol] 198 10 3/mcL Normal 150-450 [facility] ([place]) Comment on above: Performed By: #### C BC, ADIFF, ANEU, PRO, CMP, GFR #### [address] [address] RBC (Bld) [#/Vol] 3.65 10 6/mcL Low 4.10-5.30 [facility] ([place]) Comment on above: Performed By: #### C BC, ADIFF, ANEU, PRO, CMP, GFR #### [address] [address] WBC (Bld) [#/Vol] 6.90 10 3/mcL Normal 4.50-10.80 [facility] ([place]) Comment on above: Performed By: #### C BC, ADIFF, ANEU, PRO, CMP, GFR #### [address] [address] MGon 04-15-2019 Magnesium [Mass/Vol] 2.2 mg/dL Normal 1.6-2.4 [facility] ([place]) Comment on above: Performed By: #### C BC, ADIFF, ANEU, PRO, CMP, GFR #### [address] [address] PROon 04-15-2019 INR Coag (PPP) [Relative time] 2.0 {INR} Normal [facility] ([place]) Comment on above: Order Comment: order ed secondary to warfarin order Result Comment: [employer] (CHEST, 1992, 102:[id number]) recommended therapeutic range for oral anticoagulant therapy is: LOW RISK: Prophylaxis of venous thrombosis INR: 2.0-3.0 Treatment of pulmonary embolism 2.0-3.0 Prevention of systemic embolism 2.0-3.0 HIGH RISK: Mechanical prosthetic valves 2.5-3.5 Performed By: #### C BC, ADIFF, ANEU, PRO, CMP, GFR #### [address] [address] PT Coag (PPP) [Time] 23.4 s High 9.0-14.6 [facility] ([place]) Comment on above: Order Comment: order ed secondary to warfarin order Result Comment: Effe ctive 12/11/07, Protime results may be affected by some antibiotics (i.e. Ciprofloxacin, Azithromycin, Bactrim) which may potentiate the action of oral anticoagulants, with further increases in Protime/INR. Performed By: #### C BC, ADIFF, ANEU, PRO, CMP, GFR #### [address] [address] .Auto Diffon 04-14-2019 Ammonia (P) [Mass/Vol] 0.40 10 3/mcL Normal 0.09-1.40 [facility] ([place]) Comment on above: Performed By: #### C BC, ADIFF, ANEU, PRO, CMP, GFR #### [place] [id number] Basophils (Bld) [#/Vol] 0.00 10 3/mcL Normal 0.00-0.27 [facility] ([place]) Comment on above: Performed By: #### C BC, ADIFF, ANEU, PRO, CMP, GFR #### [address] [address] Basophils/100 WBC (Bld) 0.6 % Normal 0.0-2.5 [facility] ([place] Comment on above: Performed By: #### C BC, ADIFF, ANEU, PRO, CMP, GFR #### [address] [address] Eosinophils (Bld) [#/Vol] 0.30 10 3/mcL Normal 0.00-0.65 [facility] ([place]) Comment on above: Performed By: #### C BC, ADIFF, ANEU, PRO, CMP, GFR #### [address] [address] Eosinophils/100 WBC (Bld) 5.1 % Normal 0.0-6.0 [facility] ([place]) Comment on above: Performed By: #### C BC, ADIFF, ANEU, PRO, CMP, GFR #### [address] [address] Lymphocytes (Bld) [#/Vol] 2.30 10 3/mcL Normal 0.90-4.32 [facility] ([place]) Comment on above: Performed By: #### C BC, ADIFF, ANEU, PRO, CMP, GFR #### [address] [address] Lymphocytes/100 WBC (Bld) 35.3 % Normal 20.0-40.0 [facility] ([place]) Comment on above: Performed By: #### C BC, ADIFF, ANEU, PRO, CMP, GFR #### [address] [address] Monocytes/100 WBC (Bld) 6.9 % Normal 2.0-13.0 [facility] [place] Comment on above: Performed By: #### C BC, ADIFF, ANEU, PRO, CMP, GFR #### [address] [address] Neutrophils/100 WBC (Bld) 52.1 % Normal 50.0-75.0 [facility] ([place]) Comment on above: Performed By: #### C BC, ADIFF, ANEU, PRO, CMP, GFR #### [address] [address] .GFRon 04-14-2019 GFR >60 Normal [facility] ([place]) Comment on above: Result Comment: GFR Population [...] BC, ADIFF, ANEU, PRO, CMP, GFR #### [address] [address] GFR Non- >60 Normal [facility] ([place]) Comment on above: Result Comment: GFR Population [...] BC, ADIFF, ANEU, PRO, CMP, GFR #### [place] [address] .NEUABSon 04-14-2019 Neutrophils (Bld) [#/Vol] 3.30 10 3/mcL Normal 2.25-8.10 [facility] ([place]) Comment on above: Performed By: #### C BC, ADIFF, ANEU, PRO, CMP, GFR #### [place] [address] A1Con 04-14-2019 HbA1c (Bld) [Mass fraction] 6.1 % High 4.0-6.0 [facility] ([place]) Comment on above: Performed By: #### C BC, ADIFF, ANEU, PRO, CMP, GFR #### [place] [id number] BMPon 04-14-2019 Calcium [Mass/Vol] 7.8 mg/dL Low 8.4-10.1 [facility] ([place] Comment on above: Performed By: #### C BC, ADIFF, ANEU, PRO, CMP, GFR #### [place] [id number] Chloride [Moles/Vol] 107 mmol/L Normal 98-110 [facility] ([place]) Comment on above: Performed By: #### C BC, ADIFF, ANEU, PRO, CMP, GFR #### [place] [id number] CO2 [Moles/Vol] 30 mmol/L Normal 22-32 [facility] ([place] Comment on above: Performed By: #### C BC, ADIFF, ANEU, PRO, CMP, GFR #### [address] [address] Creatinine [Mass/Vol] 0.66 mg/dL Normal 0.50-1.20 [facility] ([place]) Comment on above: Performed By: #### C BC, ADIFF, ANEU, PRO, CMP, GFR #### [address] [address] Electrolyte Balance 5.0 mEq/L Normal 4.0-15.0 [facility] ([place]) Comment on above: Performed By: #### C BC, ADIFF, ANEU, PRO, CMP, GFR #### [address] [address] Glucose [Mass/Vol] 102 mg/dL Normal 82-115 [facility] ([place] Comment on above: Performed By: #### C BC, ADIFF, ANEU, PRO, CMP, GFR #### [address] [address] Potassium [Moles/Vol] 3.9 mmol/L Normal 3.5-5.0 [facility] ([place]) Comment on above: Performed By: #### C BC, ADIFF, ANEU, PRO, CMP, GFR #### [address] [address] Sodium [Moles/Vol] 142 mmol/L Normal 136-145 [facility] ([place]) Comment on above: Performed By: #### C BC, ADIFF, ANEU, PRO, CMP, GFR #### [address] [address] Urea nitrogen [Mass/Vol] 13.0 mg/dL Normal 8.0-22.0 [facility] ([place]) Comment on above: Performed By: #### C BC, ADIFF, ANEU, PRO, CMP, GFR #### [address] [address] Urea nitrogen/Creatinine [Mass ratio] 19.7 ratio Normal 10.0-22.0 [facility] ([place]) Comment on above: Performed By: #### C BC, ADIFF, ANEU, PRO, CMP, GFR #### [place] [id number] CBCon 04-14-2019 Erythrocyte distribution width (RBC) [Ratio] 13.1 % Normal 11.5-15.5 [facility] ([place] Comment on above: Performed By: #### C BC, ADIFF, ANEU, PRO, CMP, GFR #### [place] [address] Hematocrit (Bld) [Volume fraction] 33.9 % Low 34.0-46.0 [facility] ([place] Comment on above: Performed By: #### C BC, ADIFF, ANEU, PRO, CMP, GFR #### [place] [address] Hemoglobin (Bld) [Mass/Vol] 11.6 G/dL Low 12.0-16.0 [facility] ([place] Comment on above: Performed By: #### C BC, ADIFF, ANEU, PRO, CMP, GFR #### [place] [address] MCH (RBC) [Entitic mass] 31.9 pg Normal 27.0-33.0 [facility] ([place] Comment on above: Performed By: #### C BC, ADIFF, ANEU, PRO, CMP, GFR #### [place] [id number] MCHC (RBC) [Mass/Vol] 34.2 G/dL Normal 32.0-36.0 [facility] ([place]) Comment on above: Performed By: #### C BC, ADIFF, ANEU, PRO, CMP, GFR #### [place] [id number] MCV (RBC) [Entitic vol] 93.4 fL Normal 80.0-99.0 [facility] ([place]) Comment on above: Performed By: #### C BC, ADIFF, ANEU, PRO, CMP, GFR #### [place] [address] Platelet mean volume (Bld) [Entitic vol] 9.2 fL Normal 6.6-10.5 [facility] ([place]) Comment on above: Performed By: #### C BC, ADIFF, ANEU, PRO, CMP, GFR #### [address] [address] Platelets (Bld) [#/Vol] 197 10 3/mcL Normal 150-450 [facility] ([place]) Comment on above: Performed By: #### C BC, ADIFF, ANEU, PRO, CMP, GFR #### [address] [address] RBC (Bld) [#/Vol] 3.63 10 6/mcL Low 4.10-5.30 [facility] ([place]) Comment on above: Performed By: #### C BC, ADIFF, ANEU, PRO, CMP, GFR #### [address] [address] WBC (Bld) [#/Vol] 6.40 10 3/mcL Normal 4.50-10.80 [facility] ([place]) Comment on above: Performed By: #### C BC, ADIFF, ANEU, PRO, CMP, GFR #### [place] [address] MGon 04-14-2019 Magnesium [Mass/Vol] 2.1 mg/dL Normal 1.6-2.4 [facility] ([place]) Comment on above: Performed By: #### C BC, ADIFF, ANEU, PRO, CMP, GFR #### [address] [address] PROon 04-14-2019 INR Coag (PPP) [Relative time] 1.8 {INR} Normal [facility] ([place]) Comment on above: Order Comment: order ed secondary to warfarin order Result Comment: [employer] (CHEST, 1992, 102:312S-25S) recommended therapeutic range for oral anticoagulant therapy is: LOW RISK: Prophylaxis of venous thrombosis INR: 2.0-3.0 Treatment of pulmonary embolism 2.0-3.0 Prevention of systemic embolism 2.0-3.0 HIGH RISK: Mechanical prosthetic valves 2.5-3.5 Performed By: #### C BC, ADIFF, ANEU, PRO, CMP, GFR #### [address] [address] PT Coag (PPP) [Time] 21.7 s High 9.0-14.6 [facility] ([place]) Comment on above: Order Comment: order ed secondary to warfarin order Result Comment: Effe ctive 12/11/07, Protime results may be affected by some antibiotics (i.e. Ciprofloxacin, Azithromycin, Bactrim) which may potentiate the action of oral anticoagulants, with further increases in Protime/INR. Performed By: #### C BC, ADIFF, ANEU, PRO, CMP, GFR #### [address] [address] .Auto Diffon 04-13-2019 Ammonia (P) [Mass/Vol] 0.60 10 3/mcL Normal 0.09-1.40 [facility] ([place]) Comment on above: Performed By: #### C BC, ADIFF, ANEU, BMP, GFR, LIPID, TROPI #### [address] [address] Basophils (Bld) [#/Vol] 0.00 10 3/mcL Normal 0.00-0.27 [facility] ([place] Comment on above: Performed By: #### C BC, ADIFF, ANEU, BMP, GFR, LIPID, TROPI #### [address] [address] Basophils/100 WBC (Bld) 0.6 % Normal 0.0-2.5 [facility] [place] Comment on above: Performed By: #### C BC, ADIFF, ANEU, BMP, GFR, LIPID, TROPI #### [address] [address] Eosinophils (Bld) [#/Vol] 0.30 10 3/mcL Normal 0.00-0.65 [facility] ([place] Comment on above: Performed By: #### C BC, ADIFF, ANEU, BMP, GFR, LIPID, TROPI #### [address] [address] Eosinophils/100 WBC (Bld) 4.5 % Normal 0.0-6.0 [facility] ([place]) Comment on above: Performed By: #### C BC, ADIFF, ANEU, BMP, GFR, LIPID, TROPI #### [address] [address] Lymphocytes (Bld) [#/Vol] 2.60 10 3/mcL Normal 0.90-4.32 [facility] ([place]) Comment on above: Performed By: #### C BC, ADIFF, ANEU, BMP, GFR, LIPID, TROPI #### [address] [address] Lymphocytes/100 WBC (Bld) 34.8 % Normal 20.0-40.0 [facility] ([place]) Comment on above: Performed By: #### C BC, ADIFF, ANEU, BMP, GFR, LIPID, TROPI #### [address] [address] Monocytes/100 WBC (Bld) 7.5 % Normal 2.0-13.0 [facility] [place] Comment on above: Performed By: #### C BC, ADIFF, ANEU, BMP, GFR, LIPID, TROPI #### [address] [address] Neutrophils/100 WBC (Bld) 52.6 % Normal 50.0-75.0 [facility] ([place] Comment on above: Performed By: #### C BC, ADIFF, ANEU, BMP, GFR, LIPID, TROPI #### [address] [address] .GFRon 04-13-2019 GFR Non- >60 Normal [facility] ([place]) Comment on above: Result Comment: GFR Population [...] BC, ADIFF, ANEU, PRO, CMP, GFR #### [address] [address] GFR >60 Normal [facility] ([place]) Comment on above: Result Comment: GFR Population [...] BC, ADIFF, ANEU, PRO, CMP, GFR #### [address] [address] .NEUABSon 04-13-2019 Neutrophils (Bld) [#/Vol] 4.00 10 3/mcL Normal 2.25-8.10 [facility] ([place]) Comment on above: Performed By: #### C BC, ADIFF, ANEU, PRO, CMP, GFR #### [address] [address] BMPon 04-13-2019 Calcium [Mass/Vol] 7.8 mg/dL Low 8.4-10.1 [facility] ([place] Comment on above: Performed By: #### C BC, ADIFF, ANEU, PRO, CMP, GFR #### [address] [address] Chloride [Moles/Vol] 106 mmol/L Normal 98-110 [facility] ([place] Comment on above: Performed By: #### C BC, ADIFF, ANEU, PRO, CMP, GFR #### [address] [address] CO2 [Moles/Vol] 31 mmol/L Normal 22-32 [facility] ([place] Comment on above: Performed By: #### C BC, ADIFF, ANEU, PRO, CMP, GFR #### [address] [address] Creatinine [Mass/Vol] 0.74 mg/dL Normal 0.50-1.20 [facility] ([place]) Comment on above: Performed By: #### C BC, ADIFF, ANEU, PRO, CMP, GFR #### [address] [address] Electrolyte Balance 6.0 mEq/L Normal 4.0-15.0 [facility] ([place]) Comment on above: Performed By: #### C BC, ADIFF, ANEU, PRO, CMP, GFR #### [address] [address] Glucose [Mass/Vol] 107 mg/dL Normal 82-115 [facility] ([place] Comment on above: Performed By: #### C BC, ADIFF, ANEU, PRO, CMP, GFR #### [address] [address] Potassium [Moles/Vol] 4.0 mmol/L Normal 3.5-5.0 [facility] ([place]) Comment on above: Performed By: #### C BC, ADIFF, ANEU, PRO, CMP, GFR #### [address] [address] Sodium [Moles/Vol] 143 mmol/L Normal 136-145 [facility] ([place] Comment on above: Performed By: #### C BC, ADIFF, ANEU, PRO, CMP, GFR #### [address] [address] Urea nitrogen [Mass/Vol] 16.0 mg/dL Normal 8.0-22.0 [facility] ([place]) Comment on above: Performed By: #### C BC, ADIFF, ANEU, PRO, CMP, GFR #### [address] [address] Urea nitrogen/Creatinine [Mass ratio] 21.6 ratio Normal 10.0-22.0 [facility] ([place]) Comment on above: Performed By: #### C BC, ADIFF, ANEU, PRO, CMP, GFR #### [address] [address] CBCon 04-13-2019 WBC (Bld) [#/Vol] 7.50 10 3/mcL Normal 4.50-10.80 [facility] ([place] Comment on above: Result Comment: No n ormals available: specimen drawn from IV arm. Performed By: #### C BC, ADIFF, ANEU, BMP, GFR, LIPID, TROPI #### [place] [id number] Erythrocyte distribution width (RBC) [Ratio] 13.5 % Normal 11.5-15.5 [facility] ([place] Comment on above: Performed By: #### C BC, ADIFF, ANEU, BMP, GFR, LIPID, TROPI #### [place] [id number] Hematocrit (Bld) [Volume fraction] 32.9 % Low 34.0-46.0 [facility] ([place] Comment on above: Performed By: #### C BC, ADIFF, ANEU, BMP, GFR, LIPID, TROPI #### [place] [id number] Hemoglobin (Bld) [Mass/Vol] 10.9 G/dL Low 12.0-16.0 [facility] ([place] Comment on above: Performed By: #### C BC, ADIFF, ANEU, BMP, GFR, LIPID, TROPI #### [place] [id number] MCH (RBC) [Entitic mass] 31.2 pg Normal 27.0-33.0 [facility] ([place] Comment on above: Performed By: #### C BC, ADIFF, ANEU, BMP, GFR, LIPID, TROPI #### [place] [id number] MCHC (RBC) [Mass/Vol] 33.2 G/dL Normal 32.0-36.0 [facility] ([place] Comment on above: Performed By: #### C BC, ADIFF, ANEU, BMP, GFR, LIPID, TROPI #### [address] [address] MCV (RBC) [Entitic vol] 94.0 fL Normal 80.0-99.0 [facility] [place] Comment on above: Performed By: #### C BC, ADIFF, ANEU, BMP, GFR, LIPID, TROPI #### [address] [address] Platelet mean volume (Bld) [Entitic vol] 8.4 fL Normal 6.6-10.5 [facility] ([place] Comment on above: Performed By: #### C BC, ADIFF, ANEU, BMP, GFR, LIPID, TROPI #### [address] [address] Platelets (Bld) [#/Vol] 188 10 3/mcL Normal 150-450 [facility] ([place] Comment on above: Performed By: #### C BC, ADIFF, ANEU, BMP, GFR, LIPID, TROPI #### [place] [id number] RBC (Bld) [#/Vol] 3.49 10 6/mcL Low 4.10-5.30 [facility] ([place] Comment on above: Performed By: #### C BC, ADIFF, ANEU, BMP, GFR, LIPID, TROPI #### [place] [address] CT ANGIOGRAPHY HEAD W/ CONTR Tariq 04-13-2019 [...] Sign Date: 04/13/2019 8:46:53 PM Ordering Provider:Naomie Richards [facility] ([place]) CT ANGIOGRAPHY NECK W/CONTRA STon 04-13-2019 CT [...] Sign Date: 04/13/2019 8:25:57 PM Ordering Provider:Naomie Solano [facility] LIPIDon 04-13-2019 Cholesterol in HDL [Mass/Vol] 30 mg/dL Low 40-59 [facility] ([place] Comment on above: Result Comment: HDL Reference Interval: Less than 40 Low - high risk 60 or above Optimal/lowers risk Performed By: #### C BC, ADIFF, ANEU, PRO, CMP, GFR #### [address] [address] Cholesterol in LDL [Mass/Vol] 78 mg/dL Normal 0-129 [facility] ([place]) Comment on above: Result Comment: LDL is a calculated result and requires a 12-hr fast. LDL Reference Interval: Less than 100 Optimal 100-129 Near or above optimal 130-159 Borderline high risk 160-189 High risk 190 and above Very high risk Performed By: #### C BC, ADIFF, ANEU, PRO, CMP, GFR #### [place] [id number] [address] [place] [address] Cholesterol [Mass/Vol] 135 mg/dL Normal 50-199 [facility] ([place]) Comment on above: Result Comment: Chol esterol Reference Interval: Less than 200 Desirable 200-239 Borderline high risk 240 and above High risk Performed By: #### C BC, ADIFF, ANEU, PRO, CMP, GFR #### [address] [address] Triglyceride [Mass/Vol] 134 mg/dL Normal 3-149 [facility] Comment on above: Result Comment: Trig lyceride Reference Interval: Less than 150 Normal 150-199 Borderline high risk 200-499 High risk 500 or higher Very high risk Performed By: #### C BC, ADIFF, ANEU, PRO, CMP, GFR #### [place] [address] MRI BRAIN W/O CONTRASTon MRI BRAIN W/O [...] [facility] ([place]) PROon 04-13-2019 INR Coag (PPP) [Relative time] 1.8 {INR} Normal [facility] ([place]) Comment on above: Order Comment: order ed secondary to warfarin order Result Comment: [employer] (CHEST, 1992, 102:312S-25S) recommended therapeutic range for oral anticoagulant therapy is: LOW RISK: Prophylaxis of venous thrombosis INR: 2.0-3.0 Treatment of pulmonary embolism 2.0-3.0 Prevention of systemic embolism 2.0-3.0 HIGH RISK: Mechanical prosthetic valves 2.5-3.5 Performed By: #### C BC, ADIFF, ANEU, PRO, CMP, GFR #### [address] [address] PT Coag (PPP) [Time] 21.0 s High 9.0-14.6 [facility] ([place]) Comment on above: Order Comment: order ed secondary to warfarin order Result Comment: Effe ctive 12/11/07, Protime results may be affected by some antibiotics (i.e. Ciprofloxacin, Azithromycin, Bactrim) which may potentiate the action of oral anticoagulants, with further increases in Protime/INR. Performed By: #### C BC, ADIFF, ANEU, PRO, CMP, GFR #### [address] [address] TROPIon 04-13-2019 Troponin I.cardiac [Mass/Vol] ng/mL Normal 0.000-0.04 0 [facility] ([place]) Comment on above: Result Comment: Trop onin I reference ranges (02/03/14): 0.00-0.040 ng/mL Negative and non-diagnostic. >0.040 ng/mL Consistent with cardiac damage, increased clinical risk and possibility of myocardial infarction. Serial measurements, a rise & fall in test results, clinical history, appropriate symptoms and/or ECG changes may help assess possibility of RI. *Other non-acute coronary syndrome conditions such as CHF, myocarditis, pulmonary emboli, sepsis and cardiac surgery could result in myocardial damage and increased troponin levels. Performed By: #### C BC, ADIFF, ANEU, PRO, CMP, GFR #### [address] [address] Troponin I.cardiac [Mass/Vol] ng/mL Normal 0.000-0.04 0 [facility] ([place]) Comment on above: Result Comment: Trop onin I reference ranges (02/03/14): 0.00-0.040 ng/mL Negative and non-diagnostic. >0.040 ng/mL Consistent with cardiac damage, increased clinical risk and possibility of myocardial infarction. Serial measurements, a rise & fall in test results, clinical history, appropriate symptoms and/or ECG changes may help assess possibility of RI. *Other non-acute coronary syndrome conditions such as CHF, myocarditis, pulmonary emboli, sepsis and cardiac surgery could result in myocardial damage and increased troponin levels. Performed By: #### T CLOTILDE #### [address] [address] Troponin I.cardiac [Mass/Vol] ng/mL Normal 0.000-0.04 0 [facility] ([place]) Comment on above: Result Comment: Trop onin I reference ranges (02/03/14): 0.00-0.040 ng/mL Negative and non-diagnostic. >0.040 ng/mL Consistent with cardiac damage, increased clinical risk and possibility of myocardial infarction. Serial measurements, a rise & fall in test results, clinical history, appropriate symptoms and/or ECG changes may help assess possibility of RI. *Other non-acute coronary syndrome conditions such as CHF, myocarditis, pulmonary emboli, sepsis and cardiac surgery could result in myocardial damage and increased troponin levels. Performed By: #### T CLOTILDE #### [place] [address] .Auto Diffon 04-12-2019 Ammonia (P) [Mass/Vol] 0.60 10 3/mcL Normal 0.09-1.40 [facility] ([place]) Comment on above: Performed By: #### C BC, ADIFF, ANEU, PRO, CMP, GFR #### [address] [address] Basophils (Bld) [#/Vol] 0.10 10 3/mcL Normal 0.00-0.27 [facility] ([place]) Comment on above: Performed By: #### C BC, ADIFF, ANEU, PRO, CMP, GFR #### [address] [address] Basophils/100 WBC (Bld) 0.6 % Normal 0.0-2.5 [facility] Comment on above: Performed By: #### C BC, ADIFF, ANEU, PRO, CMP, GFR #### [address] [address] Eosinophils (Bld) [#/Vol] 0.40 10 3/mcL Normal 0.00-0.65 [facility] ([place]) Comment on above: Performed By: #### C BC, ADIFF, ANEU, PRO, CMP, GFR #### [address] [address] Eosinophils/100 WBC (Bld) 4.4 % Normal 0.0-6.0 [facility] ([place]) Comment on above: Performed By: #### C BC, ADIFF, ANEU, PRO, CMP, GFR #### [address] [address] Lymphocytes (Bld) [#/Vol] 3.20 10 3/mcL Normal 0.90-4.32 [facility] ([place]) Comment on above: Performed By: #### C BC, ADIFF, ANEU, PRO, CMP, GFR #### [address] [address] Lymphocytes/100 WBC (Bld) 37.2 % Normal 20.0-40.0 [facility] ([place]) Comment on above: Performed By: #### C BC, ADIFF, ANEU, PRO, CMP, GFR #### [address] [address] Monocytes/100 WBC (Bld) 6.7 % Normal 2.0-13.0 [facility] ([place] Comment on above: Performed By: #### C BC, ADIFF, ANEU, PRO, CMP, GFR #### [address] [address] Neutrophils/100 WBC (Bld) 51.1 % Normal 50.0-75.0 [facility] ([place]) Comment on above: Performed By: #### C BC, ADIFF, ANEU, PRO, CMP, GFR #### [address] [address] .GFRon 04-12-2019 GFR >60 Normal [facility] ([place]) Comment on above: Result Comment: GFR Population [...] BC, ADIFF, ANEU, PRO, CMP, GFR #### [address] [address] GFR Non- >60 Normal [facility] ([place]) Comment on above: Result Comment: GFR Population [...] BC, ADIFF, ANEU, PRO, CMP, GFR #### [address] [address] .NEUABSon 04-12-2019 Neutrophils (Bld) [#/Vol] 4.40 10 3/mcL Normal 2.25-8.10 [facility] ([place]) Comment on above: Performed By: #### C BC, ADIFF, ANEU, PRO, CMP, GFR #### [address] [address] CBCon 04-12-2019 Erythrocyte distribution width (RBC) [Ratio] 13.5 % Normal 11.5-15.5 [facility] ([place]) Comment on above: Performed By: #### C BC, ADIFF, ANEU, PRO, CMP, GFR #### [address] [address] Hematocrit (Bld) [Volume fraction] 35.5 % Normal 34.0-46.0 [facility] ([place]) Comment on above: Performed By: #### C BC, ADIFF, ANEU, PRO, CMP, GFR #### [place] [id number] Hemoglobin (Bld) [Mass/Vol] 12.0 G/dL Normal 12.0-16.0 [facility] ([place]) Comment on above: Performed By: #### C BC, ADIFF, ANEU, PRO, CMP, GFR #### [place] [id number] MCH (RBC) [Entitic mass] 32.0 pg Normal 27.0-33.0 [facility] ([place]) Comment on above: Performed By: #### C BC, ADIFF, ANEU, PRO, CMP, GFR #### [place] [id number] MCHC (RBC) [Mass/Vol] 33.8 G/dL Normal 32.0-36.0 [facility] ([place]) Comment on above: Performed By: #### C BC, ADIFF, ANEU, PRO, CMP, GFR #### [place] [id number] MCV (RBC) [Entitic vol] 94.7 fL Normal 80.0-99.0 [facility] ([place]) Comment on above: Performed By: #### C BC, ADIFF, ANEU, PRO, CMP, GFR #### [place] [id number] Platelet mean volume (Bld) [Entitic vol] 8.7 fL Normal 6.6-10.5 [facility] ([place]) Comment on above: Performed By: #### C BC, ADIFF, ANEU, PRO, CMP, GFR #### [place] [id number] Platelets (Bld) [#/Vol] 209 10 3/mcL Normal 150-450 [facility] ([place]) Comment on above: Performed By: #### C BC, ADIFF, ANEU, PRO, CMP, GFR #### [place] [id number] RBC (Bld) [#/Vol] 3.75 10 6/mcL Low 4.10-5.30 [facility] ([place]) Comment on above: Performed By: #### C BC, ADIFF, ANEU, PRO, CMP, GFR #### [place] [address] WBC (Bld) [#/Vol] 8.60 10 3/mcL Normal 4.50-10.80 [facility] ([place]) Comment on above: Performed By: #### C BC, ADIFF, ANEU, PRO, CMP, GFR #### [place] [address] CMPon 04-12-2019 Albumin/Globulin [Mass ratio] 1.0 {ratio} Normal 0.9-1.6 [facility] ([place]) Comment on above: Performed By: #### C BC, ADIFF, ANEU, PRO, CMP, GFR #### [place] [address] ALP [Catalytic activity/Vol] 72 U/L Normal 38-126 [facility] ([place]) Comment on above: Performed By: #### C BC, ADIFF, ANEU, PRO, CMP, GFR #### [place] [address] Bili Total 0.3 mg/dL Normal 0.2-1.2 [facility] ([place]) Comment on above: Performed By: #### C BC, ADIFF, ANEU, PRO, CMP, GFR #### [place] [address] Creatinine [Mass/Vol] 0.66 mg/dL Normal 0.50-1.20 [facility] ([place]) Comment on above: Performed By: #### C BC, ADIFF, ANEU, PRO, CMP, GFR #### [place] [address] Globulin (S) [Mass/Vol] 3.0 G/dL Normal 1.5-3.8 [facility] ([place]) Comment on above: Performed By: #### C BC, ADIFF, ANEU, PRO, CMP, GFR #### [place] [address] Protein [Mass/Vol] 6.0 G/dL Normal 6.0-8.5 [facility] ([place]) Comment on above: Performed By: #### C BC, ADIFF, ANEU, PRO, CMP, GFR #### [address] [address] Urea nitrogen/Creatinine [Mass ratio] 27.3 ratio High 10.0-22.0 [facility] ([place]) Comment on above: Performed By: #### C BC, ADIFF, ANEU, PRO, CMP, GFR #### [address] [address] Albumin [Mass/Vol] 3.0 G/dL Low 3.2-4.8 [facility] ([place]) Comment on above: Performed By: #### C BC, ADIFF, ANEU, PRO, CMP, GFR #### [address] [address] ALT [Catalytic activity/Vol] 24 U/L Normal 10-49 [facility] ([place]) Comment on above: Performed By: #### C BC, ADIFF, ANEU, PRO, CMP, GFR #### [address] [address] AST [Catalytic activity/Vol] 20 U/L Normal 8-34 [facility] ([place]) Comment on above: Performed By: #### C BC, ADIFF, ANEU, PRO, CMP, GFR #### [address] [address] Calcium [Mass/Vol] 8.2 mg/dL Low 8.4-10.1 [facility] ([place]) Comment on above: Performed By: #### C BC, ADIFF, ANEU, PRO, CMP, GFR #### [address] [address] Chloride [Moles/Vol] 105 mmol/L Normal 98-110 [facility] ([place]) Comment on above: Performed By: #### C BC, ADIFF, ANEU, PRO, CMP, GFR #### [address] [address] CO2 [Moles/Vol] 28 mmol/L Normal 22-32 [facility] ([place]) Comment on above: Performed By: #### C BC, ADIFF, ANEU, PRO, CMP, GFR #### [address] [address] Electrolyte Balance 8.0 mEq/L Normal 4.0-15.0 [facility] ([place]) Comment on above: Performed By: #### C BC, ADIFF, ANEU, PRO, CMP, GFR #### [address] [address] Glucose [Mass/Vol] 108 mg/dL Normal 82-115 [facility] ([place]) Comment on above: Performed By: #### C BC, ADIFF, ANEU, PRO, CMP, GFR #### [address] [address] Potassium [Moles/Vol] 3.7 mmol/L Normal 3.5-5.0 [facility] ([place]) Comment on above: Performed By: #### C BC, ADIFF, ANEU, PRO, CMP, GFR #### [address] [address] Sodium [Moles/Vol] 141 mmol/L Normal 136-145 [facility] ([place]) Comment on above: Performed By: #### C BC, ADIFF, ANEU, PRO, CMP, GFR #### [address] [address] Urea nitrogen [Mass/Vol] 18.0 mg/dL Normal 8.0-22.0 [facility] ([place]) Comment on above: Performed By: #### C BC, ADIFF, ANEU, PRO, CMP, GFR #### [address] [address] PROon 04-12-2019 INR Coag (PPP) [Relative time] 1.8 {INR} Normal [facility] ([place]) Comment on above: Result Comment: [employer] (CHEST, 1992, 102:312S-25S) recommended therapeutic range for oral anticoagulant therapy is: LOW RISK: Prophylaxis of venous thrombosis INR: 2.0-3.0 Treatment of pulmonary embolism 2.0-3.0 Prevention of systemic embolism 2.0-3.0 HIGH RISK: Mechanical prosthetic valves 2.5-3.5 Performed By: #### C BC, ADIFF, ANEU, PRO, CMP, GFR #### [address] [address] PT Coag (PPP) [Time] 20.9 s High 9.0-14.6 [facility] ([place]) Comment on above: Result Comment: Effe ctive 12/11/07, Protime results may be affected by some antibiotics (i.e. Ciprofloxacin, Azithromycin, Bactrim) which may potentiate the action of oral anticoagulants, with further increases in Protime/INR. Performed By: #### C BC, ADIFF, ANEU, PRO, CMP, GFR #### [address] [address] [facility] 09-08-2017 CNCO Letter Text Ppg Card britney Laura. Exchange [facility] [address]Ntat: [phone] Wxebjzz E. Shafer, [facility] 2017Colette Richardson33[address] [facility] [id number]/1938Devitaly Richardson,We missed seeing you for your scheduled appointment with Dr. Valdes on09/05/17.Our goal is to offer the best possible care to our patients, so we areconcerned when you are unable to keep a scheduled appointment.Please call us at [phone] so that we can reschedule your appointment fora day and time that will work for you.If you find it difficult to keep your appointment, please notify our officeat least 24 hours in advance so that we may reschedule your appointment.We are glad that you have chosen [facility] for yourcardiovascular needs and hope to continue serving you in the future.Sincerely,Fredo Valdes MD(Signed electronically to expedite mailing) [facility] CNCO Letter TextPhone: Colette Richardson3383 [facility] [id number]/2018CCF #: [id number] ,Due to a change in the provider's schedule it has been necessary toreschedule your Appointment.Your original appointment was scheduled for September 12, 2017 at 2 PM withKamar Franklin M.D.Your new appointment is now scheduled on October 24, 2017 at 2:20 PM with Keyanna Donald.If this new appointment is not convenient for you, please contact our officeat [phone].Thank you for choosing the [facility] as your Healthcare Provider.Sincerely,Interna l MedicineAppointment Office [facility] CNOVon 06-14-2017 CNOV Office Visit (UCWSTR) COLETTE RICHARDSON ([id number]) 1935 FDate Time Provider Department06/14/17 2:45 PM RUFINO BRADLEY (AUTOMATIC CASTING MACHINE OPERATOR) WSTR During your visit today, we recorded the following information about you: Temperature Pulse Respiration Blood pressure 97.3 degrees 70/minute 16/minute 130/80 Weight 81.2 kgRufino Bradley CNP, STEAM GIGGER 06/14/2017 6:14 PM SignedHPIPatient presents with:Nasal Congestion: [...] Coronary atherosclerosis of unspecified type of vessel, circle or graft01/24/2005 Stent to LAD, RCA 2003.- Depressive disorder, not elsewhere classified 10/15/2008- Diverticulosis of colon (without mention of hemorrhage)- DVT (deep venous thrombosis) (HCC) 03/04/2009- Dysmetabolic syndrome 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 ago- EGD W/O BRS SPECIMEN W/BX 03/28/11- KNEE SCOPE,DIAGNOSTIC 1994 Arthroscopy, knee, left- KNEE SCOPE,DIAGNOSTIC 06-21-05 Arthroscopy, knee, right- LAP CHOLECYSTECT/CHOLANGIOGRAP HY 07/08/11 significant umbilical adhesions, Normal IOC- LEFT [...] VAGINAL HYSTERECTOMY 1968 Hysterectomy, vaginalALLERGIES Lovastatin; Statins [Rilzbkr-Uhf-Oyq Reductase Inhibitors]; Codeine;Penicillins; Vicodin [Hydrocodone-Acetaminophen ]; Zetia [Ezetimibe]MEDICATIONSALPR AZolam (XANAX) 0.5 mg tablet Take 1 tablet [...] mouth every 8 hours as needed for Nausea/Vomiting.HYDROcodon e-acetaminophen (NORCO) 5-325 mg per tablet Take 1 [...] Take 1 capsule bymouth once each week.Ipratropium Eva (ATROVENT) 0.03 % nasal spray Use 2 [...] She exhibits no distension. There is no tenderness.Lymphadenopathy : She has no cervical adenopathy.Skin: Skin is warm and dry. No rash noted.Nursing note and vitals reviewed.ASSESSMENT/PLAN:1 . Acute mucoid otitis media of right ear [...] with exacerbation (HCC) - ICD9: 491.21, ICD10: J44.5-Vksocdnrla-C/u with pcp in 3-5 days or sooner if symptoms are not improving or worseningPrescription instructions reviewed with patient as applicable. Patient advisedif symptoms do not improve or if symptoms worsen sooner, to contact theirprimary care physician. Potential red flag symptoms discussed with thepatient. Reviewed appropriate action plan to take if red flag symptoms occur.Patient agreeable to treatment plan.Rufino Bradley CNPReferring Provider: SELF [[id number]]Allergies As of Date: 06/14/2017 Noted Allergy ReactionLOVASTATIN 01/08/2015 17 - Myalgia Comments: Leg painsSTATINS (TIQNBOT-BAT-DVJ REDUCTAS*11/22/2005 14 - Other: See Comments Comments: elevated liver enzymes.CODEINE 01/24/2005 Comments: nauseaPENICILLINS 01/24/2005 Comments: felt throat was swollenVICODIN (HYDROCODONE-ACETAMINOPHE* 07/15/2011 9 - ItchingZETIA (EZETIMIBE) 06/28/2006 5 - Intolerance Comments: elevated liver enzymesDate Reviewed: 06/14/2017Reviewed by: Rufino Delaney (International Trade Specialist) SCARLETT Bradley - Fully AssessedReason for Visit: Nasal Congestion [...] [M23.90] INVALID FOR*07/12/2005 TEAR MED MENISC KNEE-CURRENT [[id number]] INVALID FOR*07/12/2005 LATERAL EPICONDYLITIS [M77.10] INVALID FOR*06/03/2005 MONONEURITIS ARM NEC [G56.80] INVALID FOR*06/03/2005 AFTERCARE NOS [Z51.89] INVALID FOR*07/12/2005 Primary Localized Osteoarthrosis, Lower Leg [M1*INVALID FOR*02/09/2009 PES ANSERINUS TENDINITIS [SPX8450] INVALID FOR*01/13/2006 SYMPTOMATIC FEMALE CLIMACTERIC STATE [N95.1] [...] FOR*12/30/2014 Breast cancer [C50.919] INVALID FOR*12/30/2014 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, Z17.0] INVALID FOR* [...] 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*INVALID FOR*03/07/2017Prescription s ordered this encounter Disp Refills Start End [...] to improve.Follow-up and Disposition History RecordedEncounter Number: [id number] Status:Closed by RUFINO BRADLEY on 06/14/17 [facility] PROGRESSon 06-14-2017 PROGRESS HNO ID: [id number] thor: Rufino Delaney (International Trade Specialist) SCARLETT BradleyService: (none)Author Type: Nurse PractitionerType: Progress NotesFiled: 06/14/2017 [...] Coronary atherosclerosis of unspecified type of vessel, circle or graft01/24/2005 Stent to LAD, RCA 2003.- Depressive disorder, not elsewhere classified 10/15/2008- Diverticulosis of colon (without mention of hemorrhage)- DVT (deep venous thrombosis) ([facility]) 03/04/2009- Dysmetabolic syndrome X 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 ago- EGD W/O [facility] SPECIMEN W/BX 03/28/11- KNEE SCOPE,DIAGNOSTIC 1994 Arthroscopy, knee, left- KNEE SCOPE,DIAGNOSTIC 06-21-05 Arthroscopy, knee, right- LAP CHOLECYSTECT/CHOLANGIOGRAP HY 07/08/11 significant umbilical adhesions, Normal IOC- LEFT [...] VAGINAL HYSTERECTOMY 1968 Hysterectomy, vaginalALLERGIES Lovastatin; Statins [Thtstri-Lsk-Vxg Reductase Inhibitors];Codeine; Penicillins; Vicodin [Hydrocodone-Acetaminophen ]; Zetia[Ezetimibe]MEDICATION SALPRAZolam (XANAX) 0.5 mg tablet Take 1 tablet [...] mouth every 8 hours as needed for Nausea/Vomiting.HYDROcodon e-acetaminophen (NORCO) 5-325 mg per tablet Take 1 [...] Take 1 capsuleby mouth once each week.Ipratropium Eva (ATROVENT) 0.03 % nasal spray Use 2 [...] She exhibits no distension. There is no tenderness.Lymphadenopathy : She has no cervical adenopathy.Skin: Skin is warm and dry. No rash noted.Nursing note and vitals reviewed.ASSESSMENT/PLAN:1 . Acute mucoid otitis media of right ear [...] with exacerbation (HCC) - ICD9: 491.21, ICD10: J44.0-Uwzlcdlutr-K/u with pcp in 3-5 days or sooner if symptoms are not improving orworseningPrescription instructions reviewed with patient as applicable. Patientadvised if symptoms do not improve or if symptoms worsen sooner, tocontact their primary care physician. Potential red flag symptomsdiscussed with the patient. Reviewed appropriate action plan to take ifred flag symptoms occur. Patient agreeable to treatment plan.Rufino Bradley CNP [facility] OBSOLETEon 04-16-2017 OBSOLETE Refill (INTMWS) COLETTE RICHARDSON ([id number]) 1935 FDate Time Provider Vqsjjxhyiu99/19/17 KAMAR FRANKLIN During your visit today, we recorded the following information about you:Allergies As of Date: 04/16/2017 Noted Allergy ReactionLOVASTATIN 01/08/2015 17 - Myalgia Comments: Leg painsSTATINS (NDYDZEZ-QFJ-FCB REDUCTAS*11/22/2005 14 - Other: See Comments Comments: elevated liver enzymes.CODEINE 01/24/2005 Comments: nauseaPENICILLINS 01/24/2005 Comments: felt throat was swollenVICODIN (HYDROCODONE-ACETAMINOPHE* 07/15/2011 9 - ItchingZETIA (EZETIMIBE) 06/28/2006 5 - Intolerance Comments: elevated liver enzymesDate Reviewed: 04/03/2017Reviewed by: Vesta Broderick Ma - Fully AssessedReason for Visit: Refill [...] [M23.90] INVALID FOR*07/12/2005 TEAR MED MENISC KNEE-CURRENT [[id number]] INVALID FOR*07/12/2005 LATERAL EPICONDYLITIS [M77.10] INVALID FOR*06/03/2005 MONONEURITIS ARM NEC [G56.80] INVALID FOR*06/03/2005 AFTERCARE NOS [Z51.89] INVALID FOR*07/12/2005 Primary Localized Osteoarthrosis, Lower Leg [M1*INVALID FOR*02/09/2009 PES ANSERINUS TENDINITIS [[id number]] INVALID FOR*01/13/2006 SYMPTOMATIC FEMALE CLIMACTERIC STATE [N95.1] [...] FOR*12/30/2014 Breast cancer [C50.919] INVALID FOR*12/30/2014 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, Z17.0] INVALID FOR* [...] 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*INVALID FOR*03/07/2017[facility] hospitaler Number: [id number] Status:Closed by ANTOINETTE RASHID LPN on 04/18/17 [facility] CNOVon 04-03-2017 CNOV Office Visit (INTMWS) DYLANCOLETTE J ([id number]) 1935 FDate Time Provider Paxexblnnl55/6/17 2:20 PM JESSIE KAHN (SCARLETT) INTMWS During your visit today, we recorded the following information about you: Pulse Respiration Blood pressure Weight 64/minute 16/minute 122/60 80.2 kgNaz SCARLETT Kahn 04/03/2017 3:16 PM SignedCC: Patient presents with:TIA: Symptoms x 1 week agoTaylor Esparza Dylan is a 81 year old female who [...] thatshe treated with Tylenol and eventually resolved. [place] just like regularheadache. Denies any other associated [...] won't just come right away.ANDquot; Has had ANDquot;balanceproblemsAND quot; for the past year. No recent fall [...] Coronary atherosclerosis of unspecified type of vessel, circle or graft01/24/2005 Stent to LAD, RCA 2003.- Depressive disorder, not elsewhere classified 10/15/2008- Diverticulosis of colon (without mention of hemorrhage)- DVT (deep venous thrombosis) (HCC) 03/04/2009- Dysmetabolic syndrome X 07/30/2008- ER+ CO+ carcinoma of breast 07/25/2012- Female stress incontinence [...] CABG, two grafts- COLONOSCOP W/ OR W/O [facility] SPEC 05/30/2004 [place] COLONOSCOP W/ OR W/O [facility] SPEC 09/15/09- COLONOSCOP W/ OR W/O [facility] SPEC 02/19/15 Colonoscopy- CYSTOSCOPY 01/01/13 [place] office cysto for khadijah/urge incont- DANDamp;C, DIAG AND/OR THERAPEUTIC SAB about 56 yrs. ago- EGD W/O [facility] SPECIMEN W/BX 03/28/11- KNEE SCOPE,DIAGNOSTIC 1994 Arthroscopy, knee, left- KNEE SCOPE,DIAGNOSTIC 06-21-05 Arthroscopy, knee, right- LAP CHOLECYSTECT/CHOLANGIOGRAP HY 07/08/11 significant umbilical adhesions, Normal IOC- LEFT [...] VAGINAL HYSTERECTOMY 1968 Hysterectomy, vaginalALLERGIES Lovastatin; Statins [Xvzpyhv-Idv-Pmr Reductase Inhibitors]; Codeine;Penicillins; Vicodin [Hydrocodone-Acetaminophen ]; Zetia [Ezetimibe]MEDICATIONSALPR AZolam (XANAX) 0.5 mg tablet Take 1 tablet [...] mouth every 8 hours as needed for Nausea/Vomiting.HYDROcodon e-acetaminophen (NORCO) 5-325 mg per tablet Take 1 [...] Take 1 capsule bymouth once each week.Ipratropium Eva (ATROVENT) 0.03 % nasal spray Use 2 [...] kg (176 lb 12.8 oz) BMI 34.53 kg/i1Peivwpd Appearance: well appearing, in no acute distress, [...] pulsesComponent Latest Ref Rng ANDamp; Units 03/06/2017 03/21/2017WBC 3.70 - 11.00 k/uL [...] 1.00 - 4.00 k/uL 2.08Mono% % 6.7Abs [place] ANDlt;0.87 k/uL 0.50Eosin% % 3.2Abs Eosin ANDlt;0.46 [...] IVCON- MRA BRAIN WO IVCON4. Atherosclerosis of circle coronary artery of circle heart, angina presenceunspecified - ICD9: 414.01, ICD10: I25.10Cholesterol levels checked one month ago, normal. Taking statin as prescribed- MRI BRAIN WO/W IVCON- MRA BRAIN WO IVCONNsergio Kahn CNPPrescription instructions reviewed with patient as applicable. Potential redflag symptoms discussed with the patient. Reviewed appropriate action plan totake if red flag symptoms occur. Patient agreeable to treatment plan.Jessie Kahn CNP 04/03/2017 2:59 PM SignedIf symptoms recur call 911 or go to the nearest ERReferring Provider: SELF [[id number]]Allergies As of Date: 04/03/2017 Noted Allergy ReactionLOVASTATIN 01/08/2015 17 - Myalgia Comments: Leg painsSTATINS (RUOSGOM-SSX-KVI REDUCTAS*11/22/2005 14 - Other: See Comments Comments: elevated liver enzymes.CODEINE 01/24/2005 Comments: nauseaPENICILLINS 01/24/2005 Comments: felt throat was swollenVICODIN (HYDROCODONE-ACETAMINOPHE* 07/15/2011 9 - ItchingZETIA (EZETIMIBE) 06/28/2006 5 - Intolerance Comments: elevated liver enzymesDate Reviewed: 04/03/2017Reviewed by: Vesta Broderick Ma - Fully AssessedReason for Visit: TIA [[id number]] Cmt: Symptoms x 1 week agoPrimary Visit Diagnosis:Garbled speech [R47.89] Other Visit Diagnoses:Expressive aphasia [R47.01] Atrial fibrillation, unspecified type (HCC) [I48.91] Atherosclerosis of circle coronary artery of circle heart, angina presence unspecified [I25.10]Order(s):LIAM ISTAT BMP [SQWSTBMP] Order #: [id number] FUTURE LIAM CBC [SQWCBC] Order #: [id number] FUTURE PROTHROMBIN TIME/PT [SQPT] Order #: [id number] FUTURE MRI BRAIN WO/W IVCON [[id number]] Order #: [id number] FUTURE iv contrast (radiology procedure)MRI Brain Inject, [...] 1 EachRfl: 0 MRA BRAIN WO IVCON [[id number]] Order #: [id number] FUTUREPrescriptions as of 04/03/2017 Sig: ALPRAZOLAM 0.5 [...] [M23.90] INVALID FOR*07/12/2005 TEAR MED MENISC KNEE-CURRENT [[id number]] INVALID FOR*07/12/2005 LATERAL EPICONDYLITIS [M77.10] INVALID FOR*06/03/2005 MONONEURITIS ARM NEC [G56.80] INVALID FOR*06/03/2005 AFTERCARE NOS [Z51.89] INVALID FOR*07/12/2005 Primary Localized Osteoarthrosis, Lower Leg [M1*INVALID FOR*02/09/2009 PES ANSERINUS TENDINITIS [[id number]] INVALID FOR*01/13/2006 SYMPTOMATIC FEMALE CLIMACTERIC STATE [N95.1] [...] FOR*12/30/2014 Breast cancer [C50.919] INVALID FOR*12/30/2014 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, Z17.0] INVALID FOR* [...] Discontinued by another Health Care ProviderEncounter Number: [id number] Status:Closed by JESSIE KAHN CNP on 04/03/17 [facility] Erick 04-03-2017 CNPN Telephone (INTMWS) COLETTE RICHARDSON ([id number]) 1935 [facility] [place] Time Provider Irnntxdtyf67/6/17 JESSIE KAHN (SCARLETT) INTMWS During your visit today, we recorded the following information about you:Cassidy Thomas LPN 04/03/2017 3:26 PM SignedW[facility] MRI dept calling over , needing order for creatinine , fax [phone].Order pending, please file, then print then faxThanks.Jessie Kahn CNP 04/03/2017 3:31 PM SignedI ordered stat BMP already, creatinine is in there.Jenny May Ma 04/03/2017 3:35 PM SignedFaxed over all stat lab orders to fax number below. Faxed imaging to [facility] at [phone]. Notified them that patient was on her way over.Vesta Rodriguezergies As of Date: 04/03/2017 Noted Allergy ReactionLOVASTATIN 01/08/2015 17 - Myalgia Comments: Leg painsSTATINS (DWZGZAL-OTG-RFM REDUCTAS*11/22/2005 14 - Other: See Comments Comments: elevated liver enzymes.CODEINE 01/24/2005 Comments: nauseaPENICILLINS 01/24/2005 Comments: felt throat was swollenVICODIN (HYDROCODONE-ACETAMINOPHE* 07/15/2011 9 - ItchingZETIA (EZETIMIBE) 06/28/2006 5 - Intolerance Comments: elevated liver enzymesDate Reviewed: 04/03/2017Reviewed by: Vesta Broderick Ma - Fully AssessedReason for Visit: Orders [...] [M23.90] INVALID FOR*07/12/2005 TEAR MED MENISC KNEE-CURRENT [[id number]] INVALID FOR*07/12/2005 LATERAL EPICONDYLITIS [M77.10] INVALID FOR*06/03/2005 MONONEURITIS ARM NEC [G56.80] INVALID FOR*06/03/2005 AFTERCARE NOS [Z51.89] INVALID FOR*07/12/2005 Primary Localized Osteoarthrosis, Lower Leg [M1*INVALID FOR*02/09/2009 PES ANSERINUS TENDINITIS [[id number]] INVALID FOR*01/13/2006 SYMPTOMATIC FEMALE CLIMACTERIC STATE [N95.1] [...] FOR*12/30/2014 Breast cancer [C50.919] INVALID FOR*12/30/2014 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, Z17.0] INVALID FOR* [...] of neural canal of l*INVALID FOR*03/07/2017Encounter Number: [id number] Status:Closed by VESTA BRODERICK MA on 04/03/17 [facility] PROGRESSon 04-03-2017 PROGRESS HNO ID: [id number] thor: Jessie (Engine Room Helper) OlderService: (none)Author Type: Nurse PractitionerType: Progress NotesFiled: [...] say or the words won't just comeright away." Has had "balance problems" for the past year. No recent fallor [...] cold intolerance, no heat intolerance and no neckpain/pressureNeurologi c: no syncope, no seizures, no memory loss, [...] Coronary atherosclerosis of unspecified type of vessel, circle or graft01/24/2005 Stent to LAD, RCA 2003.- Depressive disorder, not elsewhere classified 10/15/2008- Diverticulosis of colon (without mention of hemorrhage)- DVT (deep venous thrombosis) (HCC) 03/04/2009- Dysmetabolic syndrome X 07/30/2008- ER+ CO+ carcinoma of breast 07/25/2012- Female stress incontinence [...] W/O BRS SPEC 02/19/15 Colonoscopy- CYSTOSCOPY 01/01/13 [place] office cysto for khadijah/urge incont- DANDC, DIAG AND/OR THERAPEUTIC SAB about 56 yrs. ago- EGD W/O BRS SPECIMEN W/BX 03/28/11- KNEE SCOPE,DIAGNOSTIC 1994 Arthroscopy, knee, left- KNEE SCOPE,DIAGNOSTIC 06-21-05 Arthroscopy, knee, right- LAP CHOLECYSTECT/CHOLANGIOGRAP HY 07/08/11 significant umbilical adhesions, Normal IOC- LEFT [...] VAGINAL HYSTERECTOMY 1968 Hysterectomy, vaginalALLERGIES Lovastatin; Statins [Nyunrxg-Pnz-Zuv Reductase Inhibitors];Codeine; Penicillins; Vicodin [Hydrocodone-Acetaminophen ]; Zetia[Ezetimibe]MEDICATION SALPRAZolam (XANAX) 0.5 mg tablet Take 1 tablet [...] mouth every 8 hours as needed for Nausea/Vomiting.HYDROcodon e-acetaminophen (NORCO) 5-325 mg per tablet Take 1 [...] Take 1 capsuleby mouth once each week.Ipratropium Eva (ATROVENT) 0.03 % nasal spray Use 2 [...] 80.2 kg (176 lb 12.8 oz) BMI 34.53kg/w5Kusrrem Appearance: well appearing, in no acute distress, [...] Abdomen soft, non-tender. Bowel sounds normal. No masses,organomegalyNeurolo gical: Negative findings: speech normal, mental status intact,cranial [...] 1.00 - 4.00 k/uL 2.08Mono% % 6.7Abs [place] <0.87 k/uL 0.50Eosin% % 3.2Abs Eosin <0.46 [...] IVCON- MRA BRAIN WO IVCON4. Atherosclerosis of circle coronary artery of circle heart, anginapresence unspecified - ICD9: 414.01, ICD10: I25.10Cholesterol levels checked one month ago, normal. Taking statin asprescribed- MRI BRAIN WO/W IVCON- MRA BRAIN WO IVCONNaz Older, CNPPrescription instructions reviewed with patient as applicable. Potentialred flag symptoms discussed with the patient. Reviewed appropriate actionplan to take if red flag symptoms occur. Patient agreeable to treatmentplan. [facility] HOSPon 03-21-2017 HOSP Anticoagulation Visi t (COUMWS) COLETTE RICHARDSON ([id number]) 1935 FDate Time Provider Ohblfcucle55/24/17 11:30 AM ANTICOAG [facility] WSTR COUMWS During your visit today, we [...] scheduled for 2 weeks.Referring Provider: KAMAR FRANKLIN [[id number]]Allergies As of Date: 03/21/2017 Noted Allergy ReactionLOVASTATIN 01/08/2015 17 - Myalgia Comments: Leg painsSTATINS (BPCHNQU-NTZ-ZPV REDUCTAS*11/22/2005 14 - Other: See Comments Comments: elevated liver enzymes.CODEINE 01/24/2005 Comments: nauseaPENICILLINS 01/24/2005 Comments: felt throat was swollenVICODIN (HYDROCODONE-ACETAMINOPHE* 07/15/2011 9 - ItchingZETIA (EZETIMIBE) 06/28/2006 5 [...] [M23.90] INVALID FOR*07/12/2005 TEAR MED MENISC KNEE-CURRENT [[id number]] INVALID FOR*07/12/2005 LATERAL EPICONDYLITIS [M77.10] INVALID FOR*06/03/2005 MONONEURITIS ARM NEC [G56.80] INVALID FOR*06/03/2005 AFTERCARE NOS [Z51.89] INVALID FOR*07/12/2005 Primary Localized Osteoarthrosis, Lower Leg [M1*INVALID FOR*02/09/2009 PES ANSERINUS TENDINITIS [EAG0036] INVALID FOR*01/13/2006 SYMPTOMATIC FEMALE CLIMACTERIC STATE [N95.1] [...] FOR*12/30/2014 Breast cancer [C50.919] INVALID FOR*12/30/2014 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, Z17.0] INVALID FOR* [...] l*INVALID FOR*03/07/2017Follow-up and Disposition History RecordedEncounter Number: [id number] Status:Closed by CASSIDY THOMAS LPN on 03/21/17 [facility] PROGRESSon 03-21-2017 PROGRESS HNO ID: [id number] thor: Cassidy Morinice: (none)Author Type: (none)Type: Progress NotesFiled: 03/21/2017 2:11 PMNote Text:pt notified to take 7.5 mg Tu Th and 5 mg all other days, pt correctlyread back instructions, appointment scheduled for 2 weeks. [facility] PROGRESS HNO ID: [id number] Author: Kamar Franklin Service: (none) Author Type: Physician Type: Progress Notes Filed: 03/21/2017 2:11 PM Note Text: Increase Coumadin dose. 7.5 mg on Tue and Amber and 5 mg on all other 5 days of the week. INR in 2 weeks. [facility] PROGRESS HNO ID: [id number] thor: Cassidy Morinice: (none)Author Type: (none)Type: Progress NotesFiled: 03/21/2017 11:45 AMNote Text:INR 1.7 - results reviewed with patient. Current dose is 5 mg daily withlast dose change 09/01/2016. Previous INR on 03/06/2017 was 1.9.Pt is scheduled for repeat INR in 1 week.Advised she would be contacted regarding dosage instructions and followupappointment after review with . Written instructions givenand she verbalized understanding. [facility] PROGRESSon 03-08-2017 PROGRESS HNO ID: [id number] thor: Kamar FranklinService: (none)Author Type: PhysicianType: Progress NotesFiled: 03/07/2017 10:35 PMNote Text:This note was created using iROK[employer] Partnerster.Coty aashish Richardson is a 81 year old female [...] frequency.Neurological: Positive for light-headedness. Negative for dizziness andheadaches.Psychiatric/B ehavioral: Positive for dysphoric mood. The patient isnervous/anxious.Objectiv eBP 142/80 Pulse 72 Resp 12 Ht 152.4 cm (5') Wt 81.1 kg (178 lb12.8 oz) BMI 34.92 kg/p2Iblwsecs ExamConstitutional: She is oriented to person, place, and time. She appearswell-nourished.HENT :Head: Normocephalic.Nose: Nose normal.Mouth/Throat: Oropharynx is clear and moist.Eyes: Conjunctivae are normal. Pupils are equal, round, and reactive tolight. No scleral icterus.Neck: Neck supple. Carotid bruit is not present. No thyromegaly present.Cardiovascular: S1 normal and S2 normal. An irregular rhythm present.No murmur heard.Pulmonary/Chest: Effort normal and breath sounds normal.Abdominal: Soft. She exhibits no mass. There is no tenderness.Musculoskeletal : She exhibits no edema or tenderness.Lymphadenopathy : She has no cervical adenopathy.Neurological: She is alert and oriented to person, place, and time. Nocranial nerve deficit. Coordination normal.Skin: No rash noted.Psychiatric: She has a normal mood and affect.Feet: Shoes and socks removed, No deformities, ulcers, calluses, normaldistal pulses, not sensitive to monofilament in some toes. and nailsnotable for Crumbly, Deformed, Hypertrophic or Yellowish.Hemoglobin A1C (%)Date Value03/06/2017 6.404/07/2016 6.5 )CMP:Glucose 145 03/06/2017BUN 15 03/06/2017Creatinine 0.76 03/06/2017Sodium 142 03/06/2017Potassium 4.0 03/06/2017Chloride 98 03/06/2017CO2 Content, Venous 29 03/06/2017Protein, Total 7.2 03/06/2017Albumin 4.0 03/06/2017Calcium 9.1 03/06/2017Alkaline Phosphatase 81 03/06/2017Bilirubin, Total 0.4 03/06/2017AST 24 03/06/2017ALT 16 03/06/2017ASSESSMENT/PLAN:1 . Medicare annual wellness visit, subsequent - ICD9: V70.0, ICD10: Z00.00(primary diagnosis)See wellness note.2. Venous (peripheral) insufficiency - ICD9: 459.81, ICD10: I87.2Controlled.3. Atherosclerosis of circle coronary artery of circle heart, anginapresence unspecified - ICD9: 414.01, ICD10: [...] - ICD9: 250.60, 357.2, ICD10:E11.40Controlled.- Continue current qqgrvusvfoo00. Carcinoma of left breast, estrogen and progesterone receptor positive(HCC) - ICD9: 174.9, V86.0, ICD10: C50.912, Z17.0Per oncology.12. Chronic atrial fibrillation (HCC) - ICD9: 427.31, ICD10: I48.2Controlled, anticoagulated.13. Symptomatic menopausal or female climacteric states - ICD9: 627.2,ICD10: N95.1Related to hormonal therapy.14. Hyperlipidemia with target LDL less than 70 - ICD9: 272.4, ICD10:E78.5- good control- Continue current medication.Kamar Franklin MD [facility] CNOVon 03-07-2017 CNOV Office Visit (INTMWS) COLETTE RICHARDSON ([id number]) 1935 FDate Time Provider Zgzuzlfugb95/10/17 3:00 PM KAMAR FRANKLIN INTMWS During your visit today, we recorded the following information about you: Pulse Respiration Blood pressure Weight 72/minute 12/minute 142/80 81.1 kg Height 1.524 mVictfarhana Franklin MD 03/07/2017 10:35 PM SignedMedicare Yearly VisitMedical B eligibilty date 2003Date of last exam N/APAST MEDICAL HISTORYDiagnosis Date- Acute gastritis without mention of hemorrhage- Allergic rhinitis, cause unspecified 01/24/2005- Anxiety state, unspecified 01/24/2005- Asthma- Atrial fibrillation (HCC)- Breast cancer ([facility]) 1989 Right- Chronic obstructive pulmonary disease (COPD) ([facility])- 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 ago- EGD W/O BRS SPECIMEN W/BX 03/28/11- KNEE SCOPE,DIAGNOSTIC 1994 Arthroscopy, knee, left- KNEE SCOPE,DIAGNOSTIC 06-21-05 Arthroscopy, knee, right- LAP CHOLECYSTECT/CHOLANGIOGRAP HY 07/08/11 significant umbilical adhesions, Normal IOC- LEFT [...] LAD,RCA- VAGINAL HYSTERECTOMY 1968 Hysterectomy, vaginalLovastatin; Statins [Tnmfmsq-Cwz-Wom Reductase Inhibitors]; Codeine;Penicillins; Vicodin [Hydrocodone-Acetaminophen ]; Zetia [Ezetimibe]Medications reviewed: YesFAMILY HISTORYProblem Relation Age [...] of the time.List of current specialists seen:Dr. Palomino, pain management. Dr. Valdes, cardiology. Dr. Mer Avina, radiationoncology. Dr. Knox, [facility].End of Live Planning discussed including [...] the patient need help with the phone, transportation,shopping,pr eparing meals, housework, laundry, medications or managing money? No3. Does your home have rugs in the hallway, lack of grab bars in the bathroom,lack of handrails on the stairs or have poor lighting? NoHearing Evaluation: normalPHYSICAL EXAMBP 142/80 Pulse 72 Resp 12 Ht 152.4 cm (5') Wt 81.1 kg (178 lb 12.8 oz) BMI 34.92 kg/e7Euipb and oriented X 3: YESBody mass index is 34.92 kg/(m2).Visual acuity: OD: 20/30 OS: 20/ 70 OU: 20/30.ASSESSMENT/PLAN:81 year old femaleThe following prevention plan was discussed during the office visit andprovided to the patient:Diabetic care. Vaccinations up to date.Arben Elmore MD 03/07/2017 10:35 PM SignedThis note was created using AntriaBioriter.Coty Richardson is a 81 year old female [...] frequency.Neurological: Positive for light-headedness. Negative for dizziness andheadaches.Psychiatric/B ehavioral: Positive for dysphoric mood. The patient isnervous/anxious.Objectiv eBP 142/80 Pulse 72 Resp 12 Ht 152.4 cm (5') Wt 81.1 kg (178 lb 12.8 oz) BMI 34.92 kg/v4Ibwgxumg ExamConstitutional: She is oriented to person, place, and time. She appearswell-nourished.HENT :Head: Normocephalic.Nose: Nose normal.Mouth/Throat: Oropharynx is clear and moist.Eyes: Conjunctivae are normal. Pupils are equal, round, and reactive to light.No scleral icterus.Neck: Neck supple. Carotid bruit is not present. No thyromegaly present.Cardiovascular: S1 normal and S2 normal. An irregular rhythm present.No murmur heard.Pulmonary/Chest: Effort normal and breath sounds normal.Abdominal: Soft. She exhibits no mass. There is no tenderness.Musculoskeletal : She exhibits no edema or tenderness.Lymphadenopathy : She has no cervical adenopathy.Neurological: She is alert and oriented to person, place, and time. No cranialnerve deficit. Coordination normal.Skin: No rash noted.Psychiatric: She has a normal mood and affect.Feet: Shoes and socks removed, No deformities, ulcers, calluses, normal distalpulses, not sensitive to monofilament in some toes. and nails notable forCrumbly, Deformed, Hypertrophic or Yellowish.Hemoglobin A1C (%)Date Value10 6.404 6.5 )CMP:Glucose 145 03/06/2017BUN 15 03/06/2017Creatinine 0.76 03/06/2017Sodium 142 03/06/2017Potassium 4.0 03/06/2017Chloride 98 03/06/2017CO2 Content, Venous 29 03/06/2017Protein, Total 7.2 03/06/2017Albumin 4.0 03/06/2017Calcium 9.1 03/06/2017Alkaline Phosphatase 81 03/06/2017Bilirubin, Total 0.4 03/06/2017AST 24 03/06/2017ALT 16 03/06/2017ASSESSMENT/PLAN:1 . Medicare annual wellness visit, subsequent - ICD9: V70.0, ICD10: Z00.00(primary diagnosis)See wellness note.2. Venous (peripheral) insufficiency - ICD9: 459.81, ICD10: I87.2Controlled.3. Atherosclerosis of circle coronary artery of circle heart, angina presenceunspecified - ICD9: 414.01, ICD10: [...] ICD9: 250.60, 357.2, ICD10: E11.40Controlled.- Continue current owngjfolkzw19. Carcinoma of left breast, estrogen and progesterone receptor positive (HCC)- ICD9: 174.9, V86.0, ICD10: C50.912, Z17.0Per oncology.12. Chronic atrial fibrillation (HCC) - ICD9: 427.31, ICD10: I48.2Controlled, anticoagulated.13. Symptomatic menopausal or female climacteric states - ICD9: 627.2, ICD10:N95.1Related to hormonal therapy.14. Hyperlipidemia with target LDL less than 70 - ICD9: 272.4, ICD10: E78.5- good control- Continue current medication.Patricio Elmore Provider: KAMAR FRANKLIN [[id number]]Allergies As of Date: 03/07/2017 Noted Allergy ReactionLOVASTATIN 01/08/2015 17 - Myalgia Comments: Leg painsSTATINS (TYGOKQN-SXO-TGW REDUCTAS*11/22/2005 14 - Other: See Comments Comments: elevated liver enzymes.CODEINE 01/24/2005 Comments: nauseaPENICILLINS 01/24/2005 Comments: felt throat was swollenVICODIN (HYDROCODONE-ACETAMINOPHE* 07/15/2011 9 - ItchingZETIA (EZETIMIBE) 06/28/2006 5 - Intolerance Comments: elevated liver enzymesDate Reviewed: 03/07/2017Reviewed by: Emma Ayala LPN - Fully AssessedReason for Visit: Yearly Exam [187] Cmt: Review labsPrimary Visit Diagnosis:Medicare annual wellness visit, subsequent [Z00.00] Other Visit Diagnoses:Venous (peripheral) insufficiency [I87.2] Atherosclerosis of circle coronary artery of circle heart, angina presence unspecified [I25.10] Essential hypertension [...] [M23.90] INVALID FOR*07/12/2005 TEAR MED MENISC KNEE-CURRENT [[id number]] INVALID FOR*07/12/2005 LATERAL EPICONDYLITIS [M77.10] INVALID FOR*06/03/2005 MONONEURITIS ARM NEC [G56.80] INVALID FOR*06/03/2005 AFTERCARE NOS [Z51.89] INVALID FOR*07/12/2005 Primary Localized Osteoarthrosis, Lower Leg [M1*INVALID FOR*02/09/2009 PES ANSERINUS TENDINITIS [[id number]] INVALID FOR*01/13/2006 SYMPTOMATIC FEMALE CLIMACTERIC STATE [N95.1] [...] FOR*12/30/2014 Breast cancer [C50.919] INVALID FOR*12/30/2014 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, Z17.0] INVALID FOR* [...] 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*INVALID FOR*03/07/2017Prescription s ordered this encounter Disp Refills Start End [...] (around 09/05/2017).Follow-up and Disposition History RecordedEncounter Number: [id number] Status:Closed by KAMAR FRANKLIN MD on 03/07/17 [facility] PROGRESSon 03-07-2017 PROGRESS HNO ID: [id number] thor: Kamar Oswald: (none)Author Type: PhysicianType: Progress NotesFiled: 03/07/2017 10:35 PMNote Text:Medicare Yearly VisitMedical B eligibilty date 2003Date of last exam N/APAST MEDICAL HISTORYDiagnosis Date- Acute gastritis without mention of hemorrhage- Allergic rhinitis, cause unspecified 01/24/2005- Anxiety state, unspecified 01/24/2005- Asthma- Atrial fibrillation (HCC)- Breast cancer ([facility]) 1989 Right- Chronic obstructive pulmonary disease (COPD) (HCC)- 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 11/25/2016- Coronary atherosclerosis of unspecified type of vessel, circle or graft01/24/2005 Stent to LAD, RCA 2003.- Depressive disorder, not elsewhere classified 10/15/2008- Diverticulosis of colon (without mention of hemorrhage)- DVT (deep venous thrombosis) ([facility]) 03/04/2009- Dysmetabolic syndrome X 07/30/2008- ER+ CO+ carcinoma of breast 07/25/2012- Female stress incontinence [...] W/ OR W/O BRSH SPEC 05/30/2004 Colonoscopy, [place]- COLONOSCOP W/ OR W/O BRSH SPEC 09/15/09- COLONOSCOP W/ OR W/O BRSH SPEC 02/19/15 Colonoscopy- CYSTOSCOPY 01/01/13 [place] office cysto for khadijah/urge incont- DANDC, DIAG AND/OR THERAPEUTIC SAB about 56 yrs. ago- EGD W/O BRS SPECIMEN W/BX 03/28/11- KNEE SCOPE,DIAGNOSTIC 1994 Arthroscopy, knee, left- KNEE SCOPE,DIAGNOSTIC 06-21-05 Arthroscopy, knee, right- LAP CHOLECYSTECT/CHOLANGIOGRAP HY 07/08/11 significant umbilical adhesions, Normal IOC- LEFT [...] LAD,RCA- VAGINAL HYSTERECTOMY 1968 Hysterectomy, vaginalLovastatin; Statins [Kczmfrf-Htq-Rxv Reductase Inhibitors]; Codeine;Penicillins; Vicodin [Hydrocodone-Acetaminophen ]; Zetia [Ezetimibe]Medications reviewed: YesFAMILY HISTORYProblem Relation Age [...] of the time.List of current specialists seen:Dr. Palomino, pain management. Dr. Valdes, cardiology. Dr. Mer Avina, radiationoncology. Dr. Knox, [facility].End of Live Planning discussed including patients advanced directivewishes: Chriss am willing to follow Colette's advanced directives.Depression screenShe in the past two weeks admits to having felt down, depressed, hopelessor with little interest or pleasure in doing things.Functional Ability/Safety Screen1. Was the patient's timed Up and Go test unsteady or longer than 30seconds? No2. Does the patient need help with the phone, transportation,shopping,pr eparing meals, housework, laundry, medications or managingmoney? No3. Does your home have rugs in the hallway, lack of grab bars in thebathroom, lack of handrails on the stairs or have poor lighting? NoHearing Evaluation: normalPHYSICAL EXAMBP 142/80 Pulse 72 Resp 12 Ht 152.4 cm (5') Wt 81.1 kg (178 lb12.8 oz) BMI 34.92 kg/u8Ragog and oriented X 3: YESBody mass index is 34.92 kg/(m2).Visual acuity: OD: 20/30 OS: 20/ 70 OU: 20/30.ASSESSMENT/PLAN:81 year old femaleThe following prevention plan was discussed during the office visit andprovided to the patient:Diabetic care. Vaccinations up to date.Kamar Franklin MD [facility] Albumin/Creat Ratioon 2016 Albumin Urine Random 17.4 mg/L Normal 0.0-23.0 [facility] Comment on above: Performed By: #### U ACR ####[facility]CChristine Ville [phone] Albumin/Creat Ratio 24 mg/g Normal 0-30 [facility] Comment on above: Result Comment: 30 t o 300 mg/g indicates an increased risk for diabetic nephropathy. Greater than 300 mg/g is consistent with clinical nephropathy. (Am J Kidney Disease 1995, 25:107) Performed By: #### U ACR ####[place] [address] [address] [place] [phone] Creatinine,Urine,Ran 72.0 mg/dL Normal 20-300 [facility] Comment on above: Performed By: #### U ACR ####[place] [address] [address] [place] [phone] CBC and Differentialon 03-06 Abs Baso 0.06 k/uL Normal <0.11 [facility] Comment on above: Performed By: #### C BCDIF, CMP, VITD ####[place] [address] [address] [phone] Abs O[place] 0.50 k/uL Normal <0.87 [facility] Comment on above: Performed By: #### C BCDIF, CMP, VITD ####[place] [address] [place] [phone] Abs Neut 4.56 k/uL Normal 1.45-7.50 [facility] Comment on above: Performed By: #### C BCDIF, CMP, VITD ####[place] [address] [place] [phone] Basophils/100 WBC Auto (Bld) 0.8 % Normal [facility] Comment on above: Performed By: #### C BCDIF, CMP, VITD ####[place] [address] [address] [place] [phone] DTYPE Auto Diff Normal [facility] Comment on above: Performed By: #### C BCDIF, CMP, VITD ####[place] [address] [place] [phone] Eosinophils 0.24 10*3/uL Normal <0.46 [facility] Comment on above: Performed By: #### C BCDIF, CMP, VITD ####[place] [address] [address] [place] [phone] Eosinophils/100 leukocytes 3.2 % Normal [facility] Comment on above: Performed By: #### C BCDIF, CMP, VITD ####[place] [address] [address] [place] [phone] Erythrocyte distribution width Auto Ratio (RBC) 12.5 % Normal 11.5-15.0 [facility] Comment on above: Performed By: #### C BCDIF, CMP, VITD ####[place] [address] [address] [place] [phone] Erythrocytes (RBC) 4.74 10*6/uL Normal 3.90-5.20 [facility] Comment on above: Performed By: #### C BCDIF, CMP, VITD ####[place] [address] [address] [place] [phone] Erythrocytes (RBC) 0.0 /100 WBC Normal 0 [facility] Comment on above: Performed By: #### C BCDIF, CMP, VITD ####[place] [address] [address] [place] [phone] Erythrocytes (RBC) 0.00 10*6/uL Normal 0.00 [facility] Comment on above: Performed By: #### C BCDIF, CMP, VITD ####[place] [address] [address] [place] [phone] Hematocrit (HCT) 44.8 % Normal 36.0-46.0 [facility] Comment on above: Performed By: #### C BCDIF, CMP, VITD ####[place] [address] [place] [phone] Hemoglobin mass conc (Bld) 14.5 g/dL Normal 11.5-15.5 [facility] Comment on above: Performed By: #### C BCDIF, CMP, VITD ####[place] [phone] Lymphocytes 2.08 10*3/uL Normal 1.00-4.00 [facility] Comment on above: Performed By: #### C BCDIF, CMP, VITD ####[address]Joseph [place] [phone] Lymphocytes/100 leukocytes 28.0 % Normal [facility] Comment on above: Performed By: #### C BCDIF, CMP, VITD ####[address] AvMark [place] [phone] MCH 30.6 pG Normal 26.0-34.0 [facility] Comment on above: Performed By: #### C BCDIF, CMP, VITD ####[address] [place] [phone] MCHC mass conc (RBC) 32.4 g/dL Normal 30.5-36.0 [facility] Comment on above: Performed By: #### C BCDIF, CMP, VITD ####[place] [address] [place] [phone] MCV 94.5 fL Normal 80.0-100.0 [facility] Comment on above: Performed By: #### C BCDIF, CMP, VITD ####[place] [address] [place] [phone] Monocytes/100 leukocytes 6.7 % Normal [facility] Comment on above: Performed By: #### C BCDIF, CMP, VITD ####[place] [address] [address], [place] [phone] Neutrophils/100 WBC Auto (Bld) 61.3 % Normal [facility] Comment on above: Performed By: #### C BCDIF, CMP, VITD ####[address] AvL[address], [place] [phone] Platelet mean volume (PMV) 11.1 fL Normal 9.0-12.7 [facility] Comment on above: Performed By: #### C BCDIF, CMP, VITD ####[address]CChristine [place] [phone] Platelets 257 10*3/uL Normal 150-400 [facility] Comment on above: Performed By: #### C BCDIF, CMP, VITD ####[address] [place] [phone] WBC (Leukocytes) 7.44 10*3/uL Normal 3.70-11.00 [facility] Comment on above: Performed By: #### C BCDIF, CMP, VITD ####[address] [place] [phone] Comp Metabolic Panelon 03-06 Alanine aminotransferase (ALT) 16 U/L Normal 7-38 [facility] Comment on above: Performed By: #### C BCDIF, CMP, VITD ####[address]Joseph [place] [phone] Albumin 4.0 g/dL Normal 3.9-4.9 [facility] Comment on above: Performed By: #### C BCDIF, CMP, VITD ####[address]CChristine [place] [phone] Alkaline phosphatase (ALP) 81 U/L Normal 32-117 [facility] Comment on above: Performed By: #### C BCDIF, CMP, VITD ####[place] [address]ClevelRobert [place] [phone] Anion gap 15 mmol/L Normal 9-18 [facility] Comment on above: Performed By: #### C BCDIF, CMP, VITD ####[facility] [address]CChristine [place] [phone] Aspartate aminotransferase (AST) 24 U/L Normal 13-35 [facility] Comment on above: Performed By: #### C BCDIF, CMP, VITD ####[place] [address] [place] [phone] Bilirubin (total) 0.4 mg/dL Normal 0.2-1.3 [facility] Comment on above: Performed By: #### C BCDIF, CMP, VITD ####[place] [address] [place] [phone] Calcium 9.1 mg/dL Normal 8.5-10.2 [facility] Comment on above: Performed By: #### C BCDIF, CMP, VITD ####[place] [address]CMariah [place] [phone] Chloride 98 mmol/L Normal 97-105 [facility] Comment on above: Performed By: #### C BCDIF, CMP, VITD ####[place] [address]CAnna [place] [phone] CO2 29 mmol/L Normal 22-30 [facility] Comment on above: Performed By: #### C BCDIF, CMP, VITD ####[place] [address] AveClevelRobert [place] [phone] Creatinine 0.76 mg/dL Normal 0.58-0.96 [facility] Comment on above: Performed By: #### C BCDIF, CMP, VITD ####[place] [address]CChrist[place] [phone] eGFR (non-black) mL/min/{1.73_m2} Normal [facility] Comment on above: Result Comment: eGFR (Estimated [...] Performed By: #### C BCDIF, CMP, VITD ####[facility] [place], [place] [phone] Glucose mass conc 145 mg/dL High 74-99 [facility] Comment on above: Result Comment: The [place] Diabetes Association (ADA) provides guidance for cutoff [...] Standards of Medical Care in Diabetes 2016, [place] Diabetes Association. Diabetes Care. 2016.39(Suppl 1). Performed By: #### C BCDIF, CMP, VITD ####[facility] [address] [place], [place] [phone] Potassium molar conc 4.0 mmol/L Normal 3.7-5.1 [facility] Comment on above: Performed By: #### C BCDIF, CMP, VITD ####[facility] [address] [place], [place] [phone] Protein 7.2 g/dL Normal 6.3-8.0 [facility] Comment on above: Performed By: #### C BCDIF, CMP, VITD ####[facility] [address] [place], [place] [phone] Sodium 142 mmol/L Normal 136-144 [facility] Comment on above: Performed By: #### C BCDIF, CMP, VITD ####[facility] [address] [place], [place] [phone] Urea nitrogen 15 mg/dL Normal 7-21 [facility] Comment on above: Performed By: #### C BCDIF, CMP, VITD ####[facility] [address] [place], [place] [phone] HOSPon 03-06-2017 HOSP Anticoagulation Visi t (COUMWS) COLETTE RICHARDSON ([id number]) 1935 FDate Time Provider Kgeydjquew77/9/17 8:30 AM [facility] COUMWS During your visit today, we recorded the following information about you:Klever Mederos RN 03/06/2017 8:24 AM SignedPatient [facility] CCPatient's INR is 1.9Patient is currently taking [...] SignedContinue Coumadin dose. INR in 2 weeks.Antoinette Rashid LPN 03/06/2017 4:24 PM SignedThis note was created using NoteWriter.SubjectiveShdanis Richardson is a 81 year old female.Review of SystemsObjectiveThere were no vitals taken for this visit.Physical ExamAssessment and PlanPatient notified of results and provider's instructions. Patient verbalizesunderstanding.Phong Rashid LPNReferring Provider: KAMAR FRANKLIN [[id number]]Allergies As of Date: 03/06/2017 Noted Allergy ReactionLOVASTATIN 01/08/2015 17 - Myalgia Comments: Leg painsSTATINS (TNVKXXM-RIR-ACD REDUCTAS*11/22/2005 14 - Other: See Comments Comments: elevated liver enzymes.CODEINE 01/24/2005 Comments: nauseaPENICILLINS 01/24/2005 Comments: felt throat was swollenVICODIN (HYDROCODONE-ACETAMINOPHE* 07/15/2011 9 - ItchingZETIA (EZETIMIBE) 06/28/2006 5 - Intolerance Comments: elevated liver enzymesDate Reviewed: 02/15/2017Reviewed by: Emma Ayala LPN - Fully AssessedReason for Visit: Coumadin/INR [1207]Primary Visit Diagnosis:Chronic anticoagulation [Z79.01]Order(s):INR (POC) [4248813] Order #: [id number]. 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 Performed By: #### L IPB, HBA1C ####[facility] [place], [place] [phone] Hemoglobin A1c/Hemoglobin.total mass fraction (Bld) 6.4 % High 4.3-5.6 [facility] Comment on above: Result Comment: Amer [place] Diabetes Association guidelines indicate that patients with HgbA1c in the range 5.7-6.4% are at increased risk for development of diabetes, and intervention by lifestyle modification may be beneficial. HgbA1c greater or equal to 6.5% is considered diagnostic of diabetes. Performed By: #### L IPB, HBA1C ####[facility] [address] [place], [place] [phone] Lipid Panel, Basicon 017 Cholesterol 171 mg/dL Normal 100-199 [facility] Comment on above: Performed By: #### L IPB, HBA1C ####[facility] [address] [place], [place] [phone] Fasting Time 12 hrs Normal [facility] Comment on above: Performed By: #### L IPB, HBA1C ####[facility] [address] AveClevelFort [place], [place] [phone] HDL Cholesterol 37 mg/dL Low >55 [facility] Comment on above: Performed By: #### L IPB, HBA1C ####[facility], [place] [phone] LDL Cholesterol 100 mg/dL Normal 60-129 [facility] Comment on above: Performed By: #### L IPB, HBA1C ####[facility] [address] AveCChristine [place] [phone] LDL:HDL Ratio 2.70 Normal 0.50-3.55 [facility] Comment on above: Performed By: #### L IPB, HBA1C ####[place] [address] [place] [phone] Non HDL Cholesterol 134 mg/dL Normal 90-159 [facility] Comment on above: Performed By: #### L IPB, HBA1C ####[facility] [place] [phone] TC:HDL Ratio 4.62 Normal 1.00-5.00 [facility] Comment on above: Performed By: #### L IPB, HBA1C ####[facility] [place] [phone] Triglyceride 172 mg/dL High 30-149 [facility] Comment on above: Performed By: #### L IPB, HBA1C ####[facility] [place] [phone] VLDL Cholesterol 34 mg/dL Normal 6-40 [facility] Comment on above: Performed By: #### L IPB, HBA1C ####[facility], [place] [phone] PROGRESSon 03-06-2017 PROGRESS HNO ID: [id number] thor: Antoinette Rashid LPNService: (none)Author Type: (none)Type: Progress NotesFiled: 03/06/2017 4:24 PMNote Text:This note was created using [employer].Coty Richardson is a 81 year old female.Review of SystemsObjectiveThere were no vitals taken for this visit.Physical ExamAssessment and PlanPatient notified of results and provider's instructions. Patientverbalizes understanding.Antoinette Rashid CHIQUI Normal [facility] PROGRESS HNO ID: [id number] Author: Kamar Franklin Service: (none) Author Type: Physician Type: Progress Notes Filed: 03/06/2017 4:24 PM Note Text: Continue Coumadin dose. INR in 2 weeks. Normal [facility] PROGRESS HNO ID: [id number] thor: Klever Mederos RNService: (none)Author Type: (none)Type: Progress NotesFiled: 03/06/2017 8:24 AMNote Text:[facility]CPatient's INR is 1.9Patient is currently taking 5 mg dailyPatient's last dose change was 09/01/16Patient has had no medication and no change in diet.Advised patient that they would be contacted regarding medication dose andfollow-up once reviewed by provider. After provider review, please contactpatient with information and schedule follow-up appointment with coumadinclinic. Patient is seeing PCP in office tomorrow.Klever Mederos RN Normal [facility] Vitamin D 25 Hydroxyon 03-06 Vitamin D 25 Hydroxy 48.6 ng/mL Normal 31.0-80.0 [facility] Comment on above: Result Comment: Clas sification of 25 [place] Vitamin D status:Insufficiency/Moderate Deficiency: < or = 30 ng/mLSufficiency/Optimal Levels: 31 to 80 ng/mLToxicity: > 100 ng/mLTest performed by chemiluminescent immunoassay. Performed By: #### C BCDIF, CMP, VITD ####[facility] [address] [place], [place] [phone] CNNURSEon 02-15-2017 CNNURSE Nurse Visit (FAMPWS) COLETTE RICHARDSON ([id number]) 1935 FDate Time Provider Department02/15/17 10:30 AM RI NURSE KARPVALENTINA During your visit today, we recorded the following information about you:Emma Janynoah CHIQUI 02/15/2017 2:51 PM Yngauo85 year old female here for INACTIVATED INFLUENZA VACCINE. SeasonPatient is identified by name and date of : Yes [] CONTRAINDICATIONS color enhancedsectionAge less than 6 months? NoAllergy to eggs, chicken, chicken feathers, or chicken dander? NoAllergy to thimerosal (a preservative) or formaldehyde? NoHistory of severe reaction to any vaccine component or a previous dose ofinfluenza vaccination? NoHistory of Guillain-Dongola Syndrome within 6 weeks after a previous [...] information sheet given? YesSee immunization activity in [facility] for details of immunizations adminsteredtoday.Patient age: [age] year old For The 3177-0522 Flu Season 6-35 months old: Fluzone 0.25 [...] in one months time.Referring Provider: KAMAR FRANKLIN [[id number]]Allergies As of Date: 02/15/2017 Noted Allergy ReactionLOVASTATIN 01/08/2015 17 - Myalgia Comments: Leg painsSTATINS (LMUUZSI-OPZ-BMF REDUCTAS*11/22/2005 14 - Other: See Comments Comments: elevated liver enzymes.CODEINE 01/24/2005 Comments: nauseaPENICILLINS 01/24/2005 Comments: felt throat was swollenVICODIN (HYDROCODONE-ACETAMINOPHE* 07/15/2011 9 - ItchingZETIA (EZETIMIBE) 06/28/2006 5 - Intolerance Comments: elevated liver enzymesDate Reviewed: 02/15/2017Reviewed by: Emma Ayala LPN - Fully AssessedReason for Visit: Imm/Inj [58] Cmt: Flu VaccinePrimary Visit Diagnosis:Need for vaccination [Z23]Order(s):INFLUENZA SEASONAL HIGH DOSE AGE 65+ [[id number]] Order #: [id number] as of 02/15/2017 Sig: TRANSCUTANEOUS ELECTRICAL NER* [...] [M23.90] INVALID FOR*07/12/2005 TEAR MED MENISC KNEE-CURRENT [UQN2003] INVALID FOR*07/12/2005 LATERAL EPICONDYLITIS [M77.10] INVALID FOR*06/03/2005 MONONEURITIS ARM NEC [G56.80] INVALID FOR*06/03/2005 AFTERCARE NOS [Z51.89] INVALID FOR*07/12/2005 Primary Localized Osteoarthrosis, Lower Leg [M1*INVALID FOR*02/09/2009 PES ANSERINUS TENDINITIS [TZC7304] INVALID FOR*01/13/2006 SYMPTOMATIC FEMALE CLIMACTERIC STATE [N95.1] [...] FOR*12/30/2014 Breast cancer [C50.919] INVALID FOR*12/30/2014 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 NoAllergy to eggs, chicken, chicken feathers, or chicken dander? NoAllergy to thimerosal (a preservative) or formaldehyde? NoHistory of severe reaction to any vaccine component or a previous dose ofinfluenza vaccination? NoHistory of Guillain-Dongola Syndrome within 6 weeks after a previousinfluenza vaccine? NoCurrent moderate or severe illness? NoCurrent temperature greater or equal to 100.4F? NoHistory of Bone Marrow Transplant in past 6 months or solid organtransplant in the past 3 months ? No [] VERIFICATIONcolor enhanced sectionWas the answer "Yes" for any of the above contraindications? Nocontraindications present. Acceptable to proceed with vaccine.Patient/guardian agrees the above answers are true to the best of theirknowledge? YesFlu vaccine information sheet given? YesSee immunization activity in [facility] for details of immunizationsadminstered today.Patient age: [age] year old For The 9022-7038 Flu Season 6-35 months old: Fluzone 0.25 [...] second dose in one months time. Normal [facility] CNOVon 01-04-2017 CNOV Office Visit (MO) COLETTE RICHARDSON ([id number]) 1935 [facility] [place] Time Provider Department01/04/17 1:15 PM FREDO VALDES During your visit today, we recorded the following information about you: Pulse Blood pressure Weight Height 64/minute 138/78 81.8 kg 1.549 Fausto Valdes MD 01/04/2017 1:52 PM SignedPERTINENT CARDIAC HISTORYASHD - stent to LAD, RCA 2003.04/02/2013:CABG x 2 (APARICIO-LAD, SVG-om)Afib- post-opHTNHLPE/DVT- residential anticoagulation with WarfarinCLINICAL IMPRESSION/PLAN:Colette Richardson is doing well. Her coronary disease is stable. She has beenadvised to continue her optimal medical therapy, including moderate doseLipitor. This is the maximum dose that she can tolerate.Blood pressure is under good control.I've encouraged her to remain active and takes time for herself. INR will bedone today. She was [facility] to the [facility] Coumadin [facility].I will see her in 8 months or as needed. If there is increased chest pain orshortness of breath, she has been advised to contact me.Written and verbal health teaching given to patient, patient verbalizesunderstanding and agrees with treatment plan.This note was generated using [employer] voice recognition system, and there may besome incorrect words, spellings, and punctuation that were not noted inchecking the note before saving.DIAGNOSIS FOR VISIT:ASHDHypertensionHIST ORY OF PRESENT ILLNESSColette Richardson returns for follow-up of her coronary disease andhypertension. She reports stable exercise tolerance. She has been caring forher who is in the final stages of his illness. She's had no recentchest discomfort and has used no nitroglycerin. She has had no orthopnea. She'shad minimal edema. She denies syncope, palpitations, TIAs, amaurosis andclaudication.ALLERGIES: ALLERGIESAllergen Reactions- Lovastatin Myalgia Leg pains- Statins [Statins-Hm* [...] mouth every 8 hours as needed for Nausea/Vomiting.HYDROcodon e-acetaminophen (NORCO) 5-325 mg per tablet Take 1 [...] Take 1 capsule bymouth once each week.Ipratropium Eva (ATROVENT) 0.03 % nasal spray Use 2 [...] INR is overdue.Electronically Signed:Matti Tyler 2016 1:31 PMCC: Kamar Franklin, MDReferring Provider: FREDO VALDES [[id number]]Allergies As of Date: 01/04/2017 Noted Allergy ReactionLOVASTATIN 01/08/2015 17 - Myalgia Comments: Leg painsSTATINS (LZMLPXL-IZV-GSQ REDUCTAS*11/22/2005 14 - Other: See Comments Comments: elevated liver enzymes.CODEINE 01/24/2005 Comments: nauseaPENICILLINS 01/24/2005 Comments: felt throat was swollenVICODIN (HYDROCODONE-ACETAMINOPHE* 07/15/2011 9 - ItchingZETIA (EZETIMIBE) 06/28/2006 5 - Intolerance Comments: elevated liver enzymesDate Reviewed: 01/04/2017Reviewed by: Angeles Renner Ma - Fully AssessedReason for Visit: Follow Up [171]Primary Visit Diagnosis:ASHD (arteriosclerotic heart disease) [I25.10] Other Visit Diagnosis:Essential hypertension [I10]Order(s):INR FINGERSTICK B/O [[id number]] Order #: [id number] STANDINGPrescriptions as of 01/04/2017 Sig: MECLIZINE 25 [...] [M23.90] INVALID FOR*07/12/2005 TEAR MED MENISC KNEE-CURRENT [UYE5010] INVALID FOR*07/12/2005 LATERAL EPICONDYLITIS [M77.10] INVALID FOR*06/03/2005 MONONEURITIS ARM NEC [G56.80] INVALID FOR*06/03/2005 AFTERCARE NOS [Z51.89] INVALID FOR*07/12/2005 Primary Localized Osteoarthrosis, Lower Leg [M1*INVALID FOR*02/09/2009 PES ANSERINUS TENDINITIS [MNZ0202] INVALID FOR*01/13/2006 SYMPTOMATIC FEMALE CLIMACTERIC STATE [N95.1] [...] FOR*12/30/2014 Breast cancer [C50.919] INVALID FOR*12/30/2014 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, Z17.0] INVALID FOR* [...] Status:Closed by FREDO VALDES MD on 01/04/17 Normal [facility] CNOV Office Visit (RADTWS) COLETTE RICHARDSON ([id number]) 1935 [facility] Provider Department01/04/17 11:00 AM POWER AVINA RADTWS During your visit today, we recorded the following information about you: Temperature Pulse Respiration Blood pressure 97.5 degrees 69/minute 20/minute 154/75 Weight 82.1 kgAna Reyes RN, RN 01/04/2017 11:05 AM SignedRadiation Therapy - Nursing Note (Follow-up)PATIENT NAME: Colette RichadrsonPATIENT 2016[facility] for visit: Follow up.Subjective DataNo c/oAdditional DataDo you want to see a Crew Person? NoNursing AssessmentFatigue: increased fatigue over baseline but [...] : 1. 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 Left mammogram on 06/24/16 showed benignfindings.ALLERGIES:A LLERGIESAllergen Reactions- Lovastatin Myalgia Leg pains- Statins [Statins-Hm* Other: See Comments elevated liver enzymes.- Codeine nausea- Penicillins felt throat was swollen- Vicodin [Hydrocodon* Itching- Zetia [Ezetimibe] Intolerance elevated liver enzymesMEDICATIONS:meclizi ne (ANTIVERT) 25 mg tab Take 1 tablet [...] mouth every 8 hours as needed for Nausea/Vomiting.HYDROcodon e-acetaminophen (NORCO) 5-325 mg per tablet Take 1 [...] Take 1 capsule bymouth once each week.Ipratropium Eva (ATROVENT) 0.03 % nasal spray Use 2 Sprays in the noseevery 12 hours.aspirin 81 mg chewable tablet Take 2 tablets by mouth once daily.therapeutic multivitamin tablet Take 1 tablet by mouth daily with breakfast.fluticasone (FLOVENT HFA) 110 mcg/Actuation INHALATION inhaler Inhale 2 Puffsas instructed twice daily. Use with spacer. Rinse mouth out after use.TENS unit and electrodes [facility] Use as instructed.Blood-Glucose Meter monitoring kit Glucose [...] I will see phoenix needed.Signed by: Power Avina [facility]:Kamar Franklin MDKINDRED HOSP[facility]ATT[facility] - [facility] GATEKYM [id number] [place], [place] [address]Fczne: [phone]: [phone] Provider: POWER AVINA [[id number]]Allergies As of Date: 01/04/2017 Noted Allergy ReactionLOVASTATIN 01/08/2015 17 - Myalgia Comments: Leg painsSTATINS (AZGOOWU-CWB-NMA REDUCTAS*11/22/2005 14 - Other: See Comments Comments: elevated liver enzymes.CODEINE 01/24/2005 Comments: nauseaPENICILLINS 01/24/2005 Comments: felt throat was swollenVICODIN (HYDROCODONE-ACETAMINOPHE* 07/15/2011 9 - ItchingZETIA (EZETIMIBE) 06/28/2006 5 - Intolerance Comments: elevated liver enzymesDate Reviewed: 01/04/2017Reviewed by: Ana Lawrence) Darm, RN - Fully AssessedReason for Visit: Recheck [92]Primary Visit Diagnosis:ER+ CO+ carcinoma of breast, 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, Z17.0]Prescriptions [...] [M23.90] INVALID FOR*07/12/2005 TEAR MED MENISC KNEE-CURRENT [[id number]] INVALID FOR*07/12/2005 LATERAL EPICONDYLITIS [M77.10] INVALID FOR*06/03/2005 MONONEURITIS ARM NEC [G56.80] INVALID FOR*06/03/2005 AFTERCARE NOS [Z51.89] INVALID FOR*07/12/2005 Primary Localized Osteoarthrosis, Lower Leg [M1*INVALID FOR*02/09/2009 PES ANSERINUS TENDINITIS [[id number]] INVALID FOR*01/13/2006 SYMPTOMATIC FEMALE CLIMACTERIC STATE [N95.1] [...] FOR*12/30/2014 Breast cancer [C50.919] INVALID FOR*12/30/2014 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, Z17.0] INVALID FOR* [...] neural canal of l*INVALID FOR*Visit Notes:>> Ana (Brandy) BRANDY Reyes MonJan 04, 2017 11:03 AM Status: SignedRadiation Therapy - Nursing Note (Follow-up)PATIENT NAME: Colette RichardsonPATIENT 2016[facility] for visit: Follow up.Subjective DataNo c/oAdditional DataDo you want to see a Crew Person? NoNursing AssessmentFatigue: increased fatigue over baseline but [...] Assessment: Is the patient noting any swelling?No.Was KP approved? Did not have tabletSIGNED by: Ana Reyes RNEncounter Number: [id number] Status:Closed by POWER AVINA MD on 01/04/17 [facility] PROGRESSon 01-04-2017 PROGRESS HNO ID: [id number] thor: Fredo Marvin: (none)Author Type: PhysicianType: Progress NotesFiled: 01/04/2017 1:52 PMNote Text:PERTINENT CARDIAC HISTORYASHD - stent to LAD, RCA 2003.04/02/2013:CABG x 2 (APARICIO-LAD, SVG-om)Afib- post-opHTNHLPE/DVT- residential anticoagulation with WarfarinCLINICAL IMPRESSION/PLAN:Colette Richardson is doing well. Her coronary disease is stable. She hasbeen advised to continue her optimal medical therapy, including moderatedose Lipitor. This is the maximum dose that she can tolerate.Blood pressure is under good control.I've encouraged her to remain active and takes time for herself. INR willbe done today. She was directed to the [facility] Coumad[facility].I will see her in 8 months or as needed. If there is increased chest painor shortness of breath, she has been advised to contact me.Written and verbal health teaching given to patient, patient verbalizesunderstanding and agrees with treatment plan.This note was generated using Revel [employer] voice recognition system, and theremay be some incorrect words, spellings, and punctuation that were notnoted in checking the note before saving.DIAGNOSIS FOR VISIT:ASHDHypertensionHIST ORY OF PRESENT ILLNESSShnichol Richardson returns for follow-up of her coronary disease andhypertension. She reports stable exercise tolerance. She has been caringfor her who is in the final stages of his illness. She's had norecent chest discomfort and has used no nitroglycerin. She has had noorthopnea. She's had minimal edema. She denies syncope, palpitations,TIAs, amaurosis and claudication.ALLERGIES:ALL ERGIESAllergen Reactions- Lovastatin Myalgia Leg pains- Statins [Statins-Hm* [...] mouth every 8 hours as needed for Nausea/Vomiting.HYDROcodon e-acetaminophen (NORCO) 5-325 mg per tablet Take 1 [...] Take 1 capsuleby mouth once each week.Ipratropium Eva (ATROVENT) 0.03 % nasal spray Use 2 [...] SIGNS: BP 138/78 Pulse 64 Ht 5' 1" (1.55m) Wt 180 lb 4.8 oz(81.8kg) BMI [...] INR is overdue.Electronically Signed:Matti Tyler 2016 1:31 PMCC: Kamar Franklin MD [facility] PROGRESS HNO ID: [id number] thor: Power Marinelli: (none)Author Type: PhysicianType: Progress NotesFiled: 01/04/2017 11:20 AMNote Text:Radiation Oncology - Follow Up NotePATIENT NAME: Colette RichardsonPATIENT : 1. Stage IA, T1cN0, ER positive, CO positive and Her2/neunegative, invasive ductal carcinoma of [...] the breasts. Left mammogram on 06/24/16 showedbenign findings.ALLERGIES:ALLERGI ESAllergen Reactions- Lovastatin Myalgia Leg pains- Statins [Statins-Hm* Other: See Comments elevated liver enzymes.- Codeine nausea- Penicillins felt throat was swollen- Vicodin [Hydrocodon* Itching- Zetia [Ezetimibe] Intolerance elevated liver enzymesMEDICATIONS:meclizi ne (ANTIVERT) 25 mg tab Take 1 tablet [...] mouth every 8 hours as needed for Nausea/Vomiting.HYDROcodon e-acetaminophen (NORCO) 5-325 mg per tablet Take 1 [...] Take 1 capsuleby mouth once each week.Ipratropium Eva (ATROVENT) 0.03 % nasal spray Use 2 [...] will see her as needed.Signed by: Power Avina [facility]:Kamar Franklin MD[address] [address]Detca: [phone]: [phone] [facility] CNOVon 11-25-2016 CNOV Office Visit (PNMDNA) DYLAN,COLETTE J ([id number]) 1935 FDate Time Provider Department11/25/16 10:40 AM JOAO PALOMINO During your visit today, we recorded the following information about you: Pulse Weight 64/minute 80.3 kgPaonur Palomino MD 11/25/2016 11:32 AM SignedDATE: November 25, 2016Chief Complaint: Right Buttocks SUBJECTIVE:[facility] [...] 60%.She is currently receiving medications through the [facility]. She is not havingdifficulty with her [facility] medications. The medications are partially effective. The [...] Family History of Alcohol or Substance Abuse PAS T MEDICAL HISTORYDiagnosis Date- Abdominal pain, epigastric- Acute gastritis without mention of hemorrhage- Allergic rhinitis, cause unspecified 01/24/2005- Anxiety state, unspecified 01/24/2005- Asthma- Atrial fibrillation (HCC)- Breast cancer (HCC) 1989 Right- Chronic obstructive pulmonary disease (COPD) (HCC)- Coronary atherosclerosis of unspecified type of vessel, circle or graft01/24/2005 Stent to LAD, RCA 2003.- Coronary atherosclerosis of unspecified type of vessel, circle or graft- Depressive disorder, not elsewhere classified 10/15/2008- Diverticulosis of colon (without mention of hemorrhage)- DVT (deep venous thrombosis) (HCC) 03/04/2009- Dysmetabolic syndrome X 07/30/2008- ER+ CO+ carcinoma of breast 07/25/2012- Family history of [...] Unspecified venous (peripheral) insufficiency 01/24/2005 EdemaPAST SURGICAL [id number]: APPENDECTOMY06/21/12: BX BREAST PERC VACUUM/ROTN Comment: left07-11-12: BX/REMV,LYMPH NODE,DEEP AXILL Comment: LEFTMar.: CABG, ARTERY-VEIN, TWO Comment: CABG, two grafts05/30/2004: COLONOSCOP W/ OR W/O BRS SPEC Comment: ColonoscopyHemant, LA09/15/09: COLONOSCOP W/ OR W/O BRSH SPEC02/19/15: COLONOSCOP W/ OR W/O BRS SPEC Comment: Colonoscopy01/01/13: CYSTOSCOPY Comment: Liam office cysto for khadijah/urge incontNo date: DANDamp;C, DIAG AND/OR THERAPEUTIC Comment: SAB about 54 yrs. ago03/28/11: EGD W/O BRSH SPECIMEN W/BXNo date: HEART SURGERY [id number]: KNEE SCOPE,DIAGNOSTIC Comment: Arthroscopy, knee, left06-21-05: KNEE SCOPE,DIAGNOSTIC Comment: Arthroscopy, knee, right07/08/11: LAP CHOLECYSTECT/CHOLANGIOGRAP HY Comment: significant umbilical adhesions, Normal IOC5: LEFT HEART CATH,PERCUTANEOUS Comment: Cardiac cath, L [id number]: MASTECTOMY Comment: right radical with lymph node [id number]: MASTECTOMY, PARTIAL Comment: LEFT11/26/1990: MASTECTOMY, SIMPLE, COMPLETE Comment: Right sided, axillary [id number]: PAST SURGICAL HISTORY OF Comment: left clavicle reductionNo date: PAST SURGICAL HISTORY OF Comment: left bunionectomy, 2nd toe arthrodesisNo date: REMV CATARACT EXTRACAP,INSERT LENS Comment: Cataract Removal- [id number] and 1967: REPAIR ING HERNIA,5+Y/O,REDUCIBL Comment: Hernia repair, inguinal, rightNo date: REPAIR ROTATOR CUFF,ACUTE Comment: Rotator cuff repair [id number]: REPAIR UMBILICAL MARIO,ANDlt;5Y/O,REDUC Comment: Hernia repair, [id number]: STENT PLACEMENT Comment: LAD,[id number]: VAGINAL HYSTERECTOMY Comment: Hysterectomy, vaginalALLERGIESAllergen Reactions- Lovastatin [...] mouth every 8 hours as needed for Nausea/Vomiting.HYDROcodon e-acetaminophen (NORCO) 5-325 mg per tablet Take 1 [...] Take 1 capsule bymouth once each week.Ipratropium Eva (ATROVENT) 0.03 % nasal spray Use 2 [...] erythema.Motor: Exhibits full strength in all four extremities.ASSESSMENT:Ass essment :Encounter Diagnosis ICD-10-CM1. 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 Chronic right-sided low back pain with right-sided sciatica M54.41 G89.294. 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 Myofascial pain M79.1OARRS website checked and validated. All prescriptions have been APPROPRIATELYfilled. No suspicious activity was identified.- 11/25/2016 by Lizzie Argueta Agreement reviewed and signed?: N/A on November 25, 2016Urine Panel:No results found for: UQCANN, UQBNZL, [id number], UQAMPH, UQMAMP, UQBUPRE,UQNORBUP, UQMTHD, UQEDDP, UQTRAM, UQDTRM, [...] visit andthey verbalized an understanding of it.Joao Palomino [facility]: Dr. Kamar Franklin, [facility]: Joao Palomino MD[address] [place] [address]#5-1[facility] [address]Pelog: [phone]: [phone] of consultation to be transmitted via electronic medical record forthose providers who practice within [facility] or with access to [employer] via MD Connect,or via letter.Referring Provider: JOAO PALOMINO [[id number]]Allergies As of Date: 11/25/2016 Noted Allergy ReactionLOVASTATIN 01/08/2015 17 - Myalgia Comments: Leg painsSTATINS (LWZPVOH-WYB-ZAC REDUCTAS*11/22/2005 14 - Other: See Comments Comments: elevated liver enzymes.CODEINE 01/24/2005 Comments: nauseaPENICILLINS 01/24/2005 Comments: felt throat was swollenVICODIN (HYDROCODONE-ACETAMINOPHE* 07/15/2011 9 - ItchingZETIA (EZETIMIBE) 06/28/2006 5 [...] [M23.90] INVALID FOR*07/12/2005 TEAR MED MENISC KNEE-CURRENT [[id number]] INVALID FOR*07/12/2005 LATERAL EPICONDYLITIS [M77.10] INVALID FOR*06/03/2005 MONONEURITIS ARM NEC [G56.80] INVALID FOR*06/03/2005 AFTERCARE NOS [Z51.89] INVALID FOR*07/12/2005 Primary Localized Osteoarthrosis, Lower Leg [M1*INVALID FOR*02/09/2009 PES ANSERINUS TENDINITIS [[id number]] INVALID FOR*01/13/2006 SYMPTOMATIC FEMALE CLIMACTERIC STATE [N95.1] [...] FOR*12/30/2014 Breast cancer [C50.919] INVALID FOR*12/30/2014 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, Z17.0] INVALID FOR* [...] Sig: Use as instructed. Status:Closed by JOAO PALOMINO MD on 11/25/16 [facility] PROGRESSon 11-25-2016 PROGRESS HNO ID: [id number] thor: Joao Alves: (none)Author Type: PhysicianType: Progress NotesFiled: 11/25/2016 11:32 AMNote Text:DATE: November 25, 2016Chief Complaint: Right Buttocks SUBJECTIVE:Ms. [facility] [...] 60%.She is currently receiving medications through the [facility]. She is not havingdifficulty with her [facility] medications. The medications are partiallyeffective. The patient [...] Family History of Alcohol or Substance Abuse PAS T MEDICAL HISTORYDiagnosis Date- Abdominal pain, epigastric- Acute gastritis without mention of hemorrhage- Allergic rhinitis, cause unspecified 01/24/2005- Anxiety state, unspecified 01/24/2005- Asthma- Atrial fibrillation (HCC)- Breast cancer (HCC) 1989 Right- Chronic obstructive pulmonary disease (COPD) (HCC)- Coronary atherosclerosis of unspecified type of vessel, circle or graft01/24/2005 Stent to LAD, RCA 2003.- Coronary atherosclerosis of unspecified type of vessel, circle or graft- Depressive disorder, not elsewhere classified 10/15/2008- Diverticulosis of colon (without mention of hemorrhage)- DVT (deep venous thrombosis) (HCC) 03/04/2009- Dysmetabolic syndrome X 07/30/2008- ER+ CO+ carcinoma of breast 07/25/2012- Family history of [...] Unspecified venous (peripheral) insufficiency 01/24/2005 EdemaPAST SURGICAL [id number]: APPENDECTOMY06/21/12: BX BREAST PERC VACUUM/ROTN Comment: left07-11-12: BX/REMV,LYMPH NODE,DEEP AXILL Comment: LEFTMar.: CABG, ARTERY-VEIN, TWO Comment: CABG, two grafts05/30/2004: COLONOSCOP W/ OR W/O BRSH SPEC Comment: ColonoscopyHemant LA09/15/09: COLONOSCOP W/ OR W/O BRSH SPEC02/19/15: COLONOSCOP W/ OR W/O BRSH SPEC Comment: Colonoscopy01/01/13: CYSTOSCOPY Comment: Liam office cysto for khadijah/urge incontNo date: DANDC, DIAG AND/OR THERAPEUTIC Comment: SAB about 54 yrs. ago03/28/11: EGD W/O BRSH SPECIMEN W/BXNo date: HEART SURGERY [id number]: KNEE SCOPE,DIAGNOSTIC Comment: Arthroscopy, knee, left06-21-05: KNEE SCOPE,DIAGNOSTIC Comment: Arthroscopy, knee, right07/08/11: LAP CHOLECYSTECT/CHOLANGIOGRAP HY Comment: significant umbilical adhesions, Normal IO10/12/2015: LEFT HEART CATH,PERCUTANEOUS Comment: Cardiac cath, L [id number]: MASTECTOMY Comment: right radical with lymph node [id number]: MASTECTOMY, PARTIAL Comment: LEFT11/26/1990: MASTECTOMY, SIMPLE, COMPLETE Comment: Right sided, axillary [id number]: PAST SURGICAL HISTORY OF Comment: left clavicle reductionNo date: PAST SURGICAL HISTORY OF Comment: left bunionectomy, 2nd toe arthrodesisNo date: REMV CATARACT EXTRACAP,INSERT LENS Comment: Cataract Removal- [id number] and 1967: REPAIR ING HERNIA,5+Y/O,REDUCIBL Comment: Hernia repair, inguinal, rightNo date: REPAIR ROTATOR CUFF,ACUTE Comment: Rotator cuff repair [id number]: REPAIR UMBILICAL MARIO,<5Y/O,REDUC Comment: Hernia repair, [id number]: STENT PLACEMENT Comment: LAD,[id number]: VAGINAL HYSTERECTOMY Comment: Hysterectomy, vaginalALLERGIESAllergen Reactions- Lovastatin [...] mouth every 8 hours as needed for Nausea/Vomiting.HYDROcodon e-acetaminophen (NORCO) 5-325 mg per tablet Take 1 [...] Take 1 capsuleby mouth once each week.Ipratropium Eva (ATROVENT) 0.03 % nasal spray Use 2 [...] erythema.Motor: Exhibits full strength in all four extremities.ASSESSMENT:Ass essment :Encounter Diagnosis ICD-10-CM1. 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 Chronic right-sided low back pain with right-sided sciatica M54.41 G89.294. 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 Myofascial pain M79.1[facility] HOSPITALRS website checked and validated. All prescriptions have beenAPPROPRIATELY filled. No suspicious activity was identified.- 11/25/2016анна Argueta Agreement reviewed and signed?: N/A on November 25, 2016Urine Panel:No results found for: UQCANN, UQBNZL, [id number], UQAMPH, UQMAMP, UQBUPRE,UQNORBUP, UQMTHD, UQEDDP, UQTRAM, UQDTRM, [...] visitand they verbalized an understanding of it.Joao Palomino, [facility]: Dr. Kamar Franklin, [facility]: Joao Palomino MD[address]#5[address]1[place] [id number]: [phone]: [phone] of consultation to be transmitted via electronic medical recordfor those providers who practice within [facility] or with access to [employer] via MDConnect, or via letter. [facility] Culture, urine Bacteria identified Cx Nom (U) Culture exhibits no growth. [facility] Work Phone: Bacteria identified Cx Nom (U) Staphylococcus epidermidis [facility] Work Phone: Influenza virus A and B and SARS-CoV-2 (COVID-19) Ag panel - Upper respiratory specim SARS-CoV-2 (COVID-19) RNA REMINGTON+probe Ql (Resp) [facility] Work Phone: Laboratory - Microbiology an d Antimicrobial susceptibility Bacteria identified Cx Nom (Bld) No growth in 5 days. [facility] Work Phone: No Panel Information SARS-CoV-2 & FLU Antigen (Rapid) [facility] Work Phone: Vital Signs Date Time Vital Sign Value Performing Clinician Faci lity 10-09-2024 20:54-0400 Body temperature 98 [degF] Dr. Melo Shrestha MD [facility] 10-09-2024 20:54-0400 Diastolic blood pressure 80 mm[Hg] Dr. Melo Shrestha MD [facility] 10-09-2024 20:54-0400 Heart rate 68 /min Dr. Melo Shrestha MD [facility] 10-09-2024 20:54-0400 Respiratory rate 18 /min Dr. Melo Shrestha MD [facility] 10-09-2024 20:54-0400 SaO2% (BldA) [Mass fraction] 96 % Dr. Melo Shrestha MD [facility] 10-09-2024 20:54-0400 Systolic blood pressure 188 mm[Hg] Dr. Melo Shrestha MD [facility] 10-09-2024 19:02-0400 Body height 154.[address] Melo Shrestha MD [facility] 10-09-2024 19:02-0400 Body mass index (BMI) [Ratio] 27.6 kg/m2 Dr. Melo Shrestha MD [facility] 10-09-2024 19:02-0400 Body weight 66.[address] Melo Shrestha MD [facility] 02-02-2023 18:43-0400 Diastolic blood pressure 92 mm[Hg] Dr. Hortensia Unger Work Phone: [facility] 02-02-2023 18:43-0400 Heart rate 66 /min Dr. Hortensia Unger Work Phone: [facility] 02-02-2023 18:43-0400 Systolic blood pressure 186 mm[Hg] Dr. Hortensia Unger Work Phone: [facility] 02-02-2023 15:12-0400 Body height 154.[address] Hortensia Unger Work Phone: [facility] 02-02-2023 15:12-0400 Body temperature 97.9 [degF] Dr. Hortensia Unger Work Phone: [facility] 02-02-2023 15:12-0400 Respiratory rate 18 /min Dr. Hortensia Unger Work Phone: [facility] 02-02-2023 15:12-0400 SaO2% (BldA) [Mass fraction] 97 % Dr. Hortensia Unger Work Phone: [facility] 01-09-2023 10:02-0400 Body mass index (BMI) [Ratio] 30.1 kg/m2 Dr. Hortensia Unger Work Phone: [facility] 01-09-2023 10:02-0400 Body temperature 98 [degF] Dr. Hortensia Unger Work Phone: [facility] 01-09-2023 10:02-0400 Body weight 72.[address] Hortensia Unger Work Phone: [facility] 01-09-2023 10:02-0400 Diastolic blood pressure 60 mm[Hg] Dr. Hortensia Unger Work Phone: [facility] 01-09-2023 10:02-0400 Heart rate 63 /min Dr. Hortensia Unger Work Phone: [facility] 01-09-2023 10:02-0400 Respiratory rate 17 /min Dr. Hortensia Unger Work Phone: [facility] 01-09-2023 10:02-0400 SaO2% (BldA) [Mass fraction] 95 % Dr. Hortensia Unger Work Phone: [facility] 01-09-2023 10:02-0400 Systolic blood pressure 140 mm[Hg] Dr. Hortensia Unger Work Phone: [facility] 06-17-2022 14:56-0500 Body temperature 98.2 [degF] Dr. Hortensia Unger Work Phone: [facility] 06-17-2022 14:56-0500 Diastolic blood pressure 65 mm[Hg] Dr. Hortensia Unger Work Phone: [facility] 06-17-2022 14:56-0500 Heart rate 62 /min Dr. Hortensia Unger Work Phone: [facility] 06-17-2022 14:56-0500 Respiratory rate 18 /min Dr. Hortensia Unger Work Phone: [facility] 06-17-2022 14:56-0500 SaO2% (BldA) [Mass fraction] 95 % Dr. Hortensia Unger Work Phone: [facility] 06-17-2022 14:56-0500 Systolic blood pressure 116 mm[Hg] Dr. Hortensia Unger Work Phone: [facility] 06-17-2022 11:51-0500 Body mass index (BMI) [Ratio] 32.6 kg/m2 Dr. Hortensia Unger Work Phone: [facility] 06-16-2022 18:14-0500 Diastolic blood pressure 67 mm[Hg] [facility] 06-16-2022 18:14-0500 Systolic blood pressure 156 mm[Hg] [facility] 06-16-2022 18:07-0500 Body height 154.[address] Hortensia Unger Work Phone: [facility] 06-16-2022 18:07-0500 Body weight 78.[address] Hortensia Unger Work Phone: [facility] 06-16-2022 17:33-0500 Body temperature 97.6 [degF] [facility] 06-16-2022 17:33-0500 Heart rate 67 /min [facility] 06-16-2022 17:33-0500 Respiratory rate 20 /min [facility] 06-16-2022 17:33-0500 SaO2% (BldA) [Mass fraction] 95 % [facility] 06-16-2022 12:16-0500 Body height 154.99 cm [facility] 06-16-2022 12:16-0500 Body mass index (BMI) [Ratio] 32.6 kg/m2 [facility] 06-16-2022 12:16-0500 Body weight 78.4 kg [facility] 03-07-2022 18:00-0400 Body temperature 97.8 [degF] [facility] 03-07-2022 18:00-0400 Diastolic blood pressure 89 mm[Hg] [facility] 03-07-2022 18:00-0400 Heart rate 83 /min [facility] 03-07-2022 18:00-0400 Respiratory rate 18 /min [facility] 03-07-2022 18:00-0400 SaO2% (BldA) [Mass fraction] 94 % [facility] 03-07-2022 18:00-0400 Systolic blood pressure 126 mm[Hg] [facility] 03-07-2022 14:47-0400 Body height 154.94 cm [facility] Work Phone: 03-07-2022 14:47-0400 Body mass index (BMI) [Ratio] 31.4 kg/m2 [facility] 03-07-2022 14:47-0400 Body weight 75.29 kg [facility] 03-07-2022 14:47-0400 Inhaled oxygen flow rate 2 L/min [facility] 11-12-2021 13:19-0400 Body temperature 98.5 [degF] Dr. Joao Simon Work Phone: [facility] Work Phone: 11-12-2021 13:19-0400 Diastolic blood pressure 83 mm[Hg] Dr. Joao Simon Work Phone: [facility] Work Phone: 11-12-2021 13:19-0400 Heart rate 63 /min Dr. Joao Simon Work Phone: [facility] Work Phone: 11-12-2021 13:19-0400 Respiratory rate 16 /min Dr. Joao Simon Work Phone: [facility] Work Phone: 11-12-2021 13:19-0400 SaO2% (BldA) [Mass fraction] 98 % Dr. Joao Simon Work Phone: [facility] Work Phone: 11-12-2021 13:19-0400 Systolic blood pressure 131 mm[Hg] Dr. Joao Simon Work Phone: [facility] Work Phone: 11-10-2021 12:44-0400 Body height 152.[address] Joao Simon Work Phone: [facility] Work Phone: 11-10-2021 12:44-0400 Body weight 75.[address] Joao Simon Work Phone: [facility] Work Phone: 11-10-2021 09:26-0400 Diastolic blood pressure 61 mm[Hg] Dr. Joao Simon Work Phone: [facility] Work Phone: 11-10-2021 09:26-0400 Heart rate 70 /min Dr. Joao Simon Work Phone: [facility] Work Phone: 11-10-2021 09:26-0400 Systolic blood pressure 131 mm[Hg] Dr. Joao Simon Work Phone: [facility] Work Phone: 11-09-2021 14:57-0400 Body weight 75.[address] Joao Simon Work Phone: [facility] Work Phone: 11-09-2021 14:00-0400 Body temperature 97.6 [degF] Dr. Joao Simon Work Phone: [facility] Work Phone: 11-09-2021 14:00-0400 Respiratory rate 16 /min Dr. Joao Simon Work Phone: [facility] Work Phone: 11-09-2021 14:00-0400 SaO2% (BldA) [Mass fraction] 97 % Dr. Joao Simon Work Phone: [facility] Work Phone: 11-05-2021 16:00-0400 Body height 152.[address] Joao Simon Work Phone: [facility] Work Phone: 11-04-2021 18:29-0400 Body mass index (BMI) [Ratio] 33.1 kg/m2 Dr. Joao Simon Work Phone: [facility] Work Phone: 11-04-2021 14:52-0400 Body temperature 98 [degF] Dr. Joao Simon Work Phone: [facility] Work Phone: 11-04-2021 14:52-0400 Diastolic blood pressure 57 mm[Hg] Dr. Joao Simon Work Phone: [facility] Work Phone: 11-04-2021 14:52-0400 Heart rate 72 /min Dr. Joao Simon Work Phone: [facility] Work Phone: 11-04-2021 14:52-0400 Respiratory rate 16 /min Dr. Joao Simon Work Phone: [facility] Work Phone: 11-04-2021 14:52-0400 SaO2% (BldA) [Mass fraction] 97 % Dr. Joao Simon Work Phone: [facility] Work Phone: 11-04-2021 14:52-0400 Systolic blood pressure 138 mm[Hg] Dr. Joao Simon Work Phone: [facility] Work Phone: 11-02-2021 17:39-0400 Body height 152.[address] Joao Simon Work Phone: [facility] Work Phone: 11-02-2021 17:39-0400 Body mass index (BMI) [Ratio] 32.1 kg/m2 Dr. Joao Simon Work Phone: [facility] Work Phone: 11-02-2021 17:39-0400 Body weight 74.[address] Joao Simon Work Phone: [facility] Work Phone: 11-02-2021 17:03-0400 Heart rate 74 /min Dr. Joao Simon Work Phone: [facility] Work Phone: 11-02-2021 15:36-0400 Body temperature 98.7 [degF] Dr. Joao Simon Work Phone: [facility] Work Phone: 11-02-2021 15:36-0400 Diastolic blood pressure 86 mm[Hg] Dr. Joao Simon Work Phone: [facility] Work Phone: 11-02-2021 15:36-0400 Respiratory rate 17 /min Dr. Joao Simon Work Phone: [facility] Work Phone: 11-02-2021 15:36-0400 SaO2% (BldA) [Mass fraction] 95 % Dr. Joao Simon Work Phone: [facility] Work Phone: 11-02-2021 15:36-0400 Systolic blood pressure 169 mm[Hg] Dr. Joao Simon Work Phone: [facility] Work Phone: 11-02-2021 11:48-0400 Body height 152.[address] Joao Simon Work Phone: [facility] Work Phone: 11-02-2021 11:48-0400 Body mass index (BMI) [Ratio] 32.8 kg/m2 Dr. Joao Simon Work Phone: [facility] Work Phone: 11-02-2021 11:48-0400 Body weight 76.[address] Joao Simon Work Phone: [facility] Work Phone: 09-29-2021 14:32-0400 Body mass index (BMI) [Ratio] 32.5 kg/m2 Dr. Joao Simon Work Phone: [facility] Work Phone: 09-29-2021 14:32-0400 Body weight 78.[address] Joao Simon Work Phone: [facility] Work Phone: 09-29-2021 14:32-0400 Diastolic blood pressure 83 mm[Hg] Dr. Joao Simon Work Phone: [facility] Work Phone: 09-29-2021 14:32-0400 Heart rate 66 /min Dr. Joao Simon Work Phone: [facility] Work Phone: 09-29-2021 14:32-0400 Respiratory rate 16 /min Dr. Joao Simon Work Phone: [facility] Work Phone: 09-29-2021 14:32-0400 SaO2% (BldA) [Mass fraction] 94 % Dr. Joao Simon Work Phone: [facility] Work Phone: 09-29-2021 14:32-0400 Systolic blood pressure 155 mm[Hg] Dr. Joao Simon Work Phone: [facility] Work Phone: 09-29-2021 14:32-0400 Body height 154.[address] Joe Rosario Work Phone: [facility] Work Phone: 09-29-2021 14:32-0400 Body mass index (BMI) [Ratio] 32.5 kg/m2 Dr. Joe Rosario Work Phone: [facility] Work Phone: 09-29-2021 14:32-0400 Body weight 78.[address] Joe Rosario Work Phone: [facility] Work Phone: 09-29-2021 14:32-0400 Diastolic blood pressure 83 mm[Hg] Dr. Joe Rosario Work Phone: [facility] Work Phone: 09-29-2021 14:32-0400 Heart rate 66 /min Dr. Joe Rosario Work Phone: [facility] Work Phone: 09-29-2021 14:32-0400 Respiratory rate 16 /min Dr. Joe Rosario Work Phone: [facility] Work Phone: 09-29-2021 14:32-0400 SaO2% (BldA) [Mass fraction] 94 % Dr. Joe Rosario Work Phone: [facility] Work Phone: 09-29-2021 14:32-0400 Systolic blood pressure 155 mm[Hg] Dr. Joe Rosario Work Phone: [facility] Work Phone: 06-26-2021 05:00-0500 Diastolic blood pressure 64 mm[Hg] Dr. Joe Rosario Work Phone: [facility] Work Phone: 06-26-2021 05:00-0500 Heart rate 69 /min Dr. Joe Rosario Work Phone: [facility] Work Phone: 06-26-2021 05:00-0500 Systolic blood pressure 141 mm[Hg] Dr. Joe Rosario Work Phone: [facility] Work Phone: 06-25-2021 13:03-0500 Body temperature 98.6 [degF] Dr. Joe Rosario Work Phone: [facility] Work Phone: 06-25-2021 13:03-0500 Respiratory rate 18 /min Dr. Joe Rosario Work Phone: [facility] Work Phone: 06-25-2021 13:03-0500 SaO2% (BldA) [Mass fraction] 92 % Dr. Joe Rosario Work Phone: [facility] Work Phone: 06-23-2021 13:54-0500 Body height 154.[address] Joe Rosario Work Phone: [facility] Work Phone: 06-23-2021 13:54-0500 Body weight 77.[address] Joe Rosario Work Phone: [facility] Work Phone: 06-18-2021 14:47-0500 Body mass index (BMI) [Ratio] 33.3 kg/m2 Dr. Joe Rosario Work Phone: [facility] Work Phone: 06-18-2021 11:04-0500 SaO2% (BldA) [Mass fraction] 92 % Dr. Joe Rosario Work Phone: [facility] Work Phone: 06-18-2021 10:40-0500 Body temperature 98.1 [degF] Dr. Joe Rosario Work Phone: [facility] Work Phone: 06-18-2021 10:40-0500 Diastolic blood pressure 67 mm[Hg] Dr. Joe Rosario Work Phone: [facility] Work Phone: 06-18-2021 10:40-0500 Heart rate 58 /min Dr. Joe Rosario Work Phone: [facility] Work Phone: 06-18-2021 10:40-0500 Respiratory rate 18 /min Dr. Joe Rosario Work Phone: [facility] Work Phone: 06-18-2021 10:40-0500 Systolic blood pressure 116 mm[Hg] Dr. Joe Rosario Work Phone: [facility] Work Phone: 06-18-2021 01:05-0500 Body weight 80.[address] Joe Rosario Work Phone: [facility] Work Phone: 06-17-2021 11:59-0500 Body mass index (BMI) [Ratio] 33 kg/m2 Dr. Joe Rosario Work Phone: [facility] Work Phone: Encounters Encounter Date Encounter Type Care Provider Facility Start: 10-22-2024 End: 10-22-[address] Melo Shrestha MD [facility] Work Phone: Start: 10-22-2024 End: 10-22-[address] Melo Shrestha [facility] -[facility] Work Phone: Start: 10-22-2024 End: 10-22-2024 ambulatory Melo THOMAS Facility:[facility] Start: 10-09-2024 End: 10-09-2024 Emergency department patient visit Dr. Melo Shrestha MD -Emergency Department Work Phone: Start: 09-09-2024 End: 09-09-[address] Melo Shrestha MD [facility] Work Phone: Start: 09-09-2024 End: 09-09-[address] Melo Shrestha [facility] -[facility] Work Phone: Start: 09-09-2024 End: 09-09-2024 ambulatory Melo THOMAS Facility:[facility] Start: 08-12-2024 End: 08-12-[address] Melo Shrestha MD [facility] Work Phone: Start: 08-12-2024 End: 08-12-[address] Mel[facility] Shrest[facility] Work Phone: Start: 08-12-2024 End: 08-12-2024 ambulatory Melo THOMAS Facility:[facility] Start: 07-29-2024 End: 07-29-[address] Melo Shrestha MD [facility] Work Phone: Start: 07-29-2024 End: 07-29-[address] [facility] Work Phone: Start: 07-29-[address] [facility] Work Phone: Start: 07-29-2024 End: 07-29-2024 ambulatory Melo THOMAS Facility:[facility] Start: 07-25-2024 End: 07-25-[address] Melo Shrestha MD [facility] Work Phone: Start: 07-25-2024 End: 07-25-[address] [facility] Work Phone: Start: 07-25-[address] [facility] Work Phone: Start: 07-24-2024 End: 07-25-[address] Melo Shrestha MD [facility] Work Phone: Start: 07-24-2024 End: 07-24-[address] [facility] Work Phone: Start: 07-24-[address] [facility] Work Phone: Start: 07-24-2024 End: 07-24-2024 ambulatory Melo THOMAS Facility:[facility] Start: 2024 End: [address] Melo Shrestha MD [facility] Work Phone: Start: 2024 End: [address] [facility] Work Phone: Start: [address] [facility] Work Phone: Start: 2024 End: 2024 ambulatory Melo THOMAS Facility:[facility] Start: 07-18-2024 ambulatory Melo THOMAS Facil ity:[facility] Start: 07-18-[address] [facility] Work Phone: Start: 07-17-2024 End: 07-17-[address] Melo Shrestha MD [facility] Work Phone: Start: 07-17-2024 End: 07-17-[address] [facility] Work Phone: Start: 07-17-[address] [facility] Work Phone: Start: 07-16-2024 End: 07-17-2024 ambulatory Melo THOMAS Facility:[facility] Start: 07-16-[address] [facility] Work Phone: Start: 07-15-2024 ambulatory Melo THOMAS Facil ity:[facility] Start: 07-15-[address] [facility] Work Phone: Start: 07-12-2024 End: 07-12-[address] Melo Shrestha MD [facility] Work Phone: Start: 07-12-2024 End: 07-12-[address] [facility] Work Phone: Start: 07-12-[address] [facility] Work Phone: Start: 07-12-2024 End: 07-12-2024 ambulatory Melo THOMAS Facility:[facility] Start: 07-09-2024 ambulatory Melo THOMAS Facil ity:[facility] Start: 07-09-[address] [facility] Work Phone: Start: 07-08-2024 End: 07-08-[address] Melo Shrestha MD [facility] Work Phone: Start: 07-08-2024 End: 07-08-[address] [facility] Work Phone: Start: 07-08-[address] [facility] Work Phone: Start: 07-08-2024 End: 07-08-2024 ambulatory Melo THOMAS Facility:[facility] Start: 07-05-2024 End: 07-05-[address] Melo Shrestha MD [facility] Work Phone: Start: 07-05-2024 End: 07-05-[address] [facility] Work Phone: Start: 07-05-[address] [facility] Work Phone: Start: 07-04-2024 End: 07-05-2024 ambulatory Melo THOMAS Facility:[facility] Start: 07-04-[address] [facility] Work Phone: Start: 07-03-2024 End: 07-03-[address] Melo Shrestha MD [facility] Work Phone: Start: 07-03-2024 End: 07-03-[address] [facility] Work Phone: Start: 07-03-[address] [facility] Work Phone: Start: 07-02-2024 End: 07-03-[address] Melo Shrestha MD [facility] Work Phone: Start: 07-02-2024 End: 07-02-[address] [facility] Work Phone: Start: 07-01-2024 End: 07-02-[address] Melo Shrestha MD [facility] Work Phone: Start: 07-01-2024 End: 07-01-[address] [facility] Work Phone: Start: 07-01-[address] [facility] Work Phone: Start: 07-01-2024 End: 07-01-2024 ambulatory Melo THOMAS Facility:[facility] Start: 06-17-2024 ambulatory Melo THOMAS Facil ity:[facility] Start: 06-17-[address] Melo delaney MD -[facility] Work Phone: Start: 06-16-2024 End: 06-16-[address] Melo Shrestha MD [facility] Work Phone: Start: 06-16-2024 End: 06-16-[address] Melo Shrest[facility] Work Phone: Start: 06-16-[address] Melo delaney MD -[facility] Work Phone: Start: 06-16-2024 End: 06-16-2024 ambulatory Melo THOMAS Facility:[facility] Start: 04-04-2024 End: 04-04-[address] Melo Shrestha MD -[facility] Work Phone: Start: 04-04-2024 End: 04-04-2024 ambulatory Melo THOMAS Facility:[facility] Start: 03-25-2024 End: 03-25-2024 ambulatory Melo THOMAS Facility:[facility] Start: 03-24-2024 End: 03-24-2024 Emergency department patient visit Melo THOMAS Facility:[facility] Start: 03-22-2024 End: 03-22-2024 ambulatory Joao Simon Facility:[facility] Start: 03-21-2024 End: 03-21-2024 ambulatory Joao Simon Facility:[facility] Start: 03-20-2024 End: 03-20-2024 ambulatory Joao Simon Facility:[facility] Start: 03-19-2024 End: 03-19-2024 ambulatory Joao Simon Facility:[facility] Start: 03-18-2024 End: 03-18-2024 ambulatory Joao Simon Facility:[facility] Start: 03-14-2024 End: 03-14-2024 ambulatory Joao Simon Facility:[facility] Start: 02-29-2024 End: 02-29-2024 ambulatory Joao Simon Facility:[facility] Start: 02-21-2024 End: 02-21-2024 ambulatory Joao Simon Facility:[facility] Start: 02-20-2024 End: 02-20-2024 ambulatory Melo THOMAS Facility:[facility] Start: 02-19-2024 End: 02-19-2024 ambulatory Melo Shrestha OLS Facility:[facility] Start: 01-09-2024 End: 01-09-2024 ambulatory Melo Shrestha OLS Facility:[facility] Start: 12-15-2023 End: 12-15-2023 ambulatory Melo Shrestha OLS Facility:[facility] Start: 12-13-2023 End: 12-13-2023 ambulatory Melo Shrestha OLS Facility:[facility] Start: 11-14-2023 End: 11-14-2023 ambulatory Joao THOMAS Facility:[facility] Start: 09-11-2023 End: 09-11-2023 ambulatory [facility] Work Phone: Start: 09-11-2023 End: 09-11-[address] [facility] Work Phone: Start: 08-30-2023 End: 08-30-2023 ambulatory [facility] Work Phone: Start: 08-30-2023 End: 08-30-2023 Departed Referred [facility] Work Phone: Start: 08-09-2023 End: 08-09-2023 ambulatory [facility] Work Phone: Start: 08-09-2023 End: 08-09-2023 Departed Referred [facility] Work Phone: Start: 07-26-2023 End: 07-26-2023 ambulatory [facility] Work Phone: Start: 07-26-2023 End: 07-26-2023 Departed Referred [facility] Work Phone: Start: 07-11-2023 End: 07-11-2023 ambulatory [facility] Work Phone: Start: 07-11-2023 End: 07-11-[address] [facility] Work Phone: Start: 06-28-2023 End: 06-28-2023 ambulatory [facility] Work Phone: Start: 06-28-2023 End: 06-28-2023 [facility] Work [facility]: Start: 06-28-2023 [facility] Work Phone: Start: 06-14-2023 End: 06-14-2023 ambulatory [facility] Work Phone: Start: 06-14-2023 End: 06-14-[address] [facility] Work Phone: Start: 05-31-2023 End: 05-31-2023 ambulatory [facility] Work Phone: Start: 05-31-2023 End: 05-31-[address] [facility] Work Phone: Start: 05-23-2023 End: 05-23-2023 ambulatory [facility] Work Phone: Start: 05-23-2023 End: 05-23-2023 Departed Referred [facility] Work Phone: Start: 05-08-2023 End: 05-08-2023 ambulatory [facility] Work Phone: Start: 05-08-2023 End: 05-08-[address] [facility] Work Phone: Start: 04-06-2023 End: 04-06-[address] Hortensia Unger Work Phone: [facility] Work Phone: Start: 04-06-2023 End: 04-06-[address] Hortensia Unger Work Phone: [facility] Work Phone: Start: 03-06-2023 End: 03-06-[address] Hortensia Unger Work Phone: [facility] Work Phone: Start: 02-21-2023 End: 02-21-[address] Hortensia Unger Work Phone: [facility] Work Phone: Start: 02-21-2023 End: 02-21-[address] Hortensia Unger Work Phone: [facility] Work Phone: Start: 02-14-2023 End: 02-14-[address] Hortensia Unger Work Phone: [facility] Work Phone: Start: 02-14-2023 End: 02-14-[address] Hortensia Unger Work Phone: [facility] Work Phone: Start: 02-14-[address] Hortensia menchaca Work Phone: [facility] Work Phone: Start: 02-07-2023 End: 02-07-[address] Hortensia Unger Work Phone: [facility] Work Phone: Start: 02-07-2023 End: 02-07-[address] Hortensia Unger Work Phone: [facility] Work Phone: Start: 02-02-2023 End: 02-02-2023 Emergency department patient visit Dr. Hortensia Unger Work Phone: [facility] Work Phone: Start: 01-09-2023 End: 01-09-[address] Hortensia Unger Work Phone: [facility] Work Phone: Start: 01-03-2023 End: 01-03-[address] Hortensia Unger Work Phone: [facility] Work Phone: Start: 11-30-2022 End: 11-30-2022 ambulatory [facility] Work Phone: Start: 11-30-2022 End: 11-30-[address] [facility] Work Phone: Start: 11-30-2022 Registered Referred [facility] Work Phone: Start: 11-16-2022 End: 11-16-2022 ambulatory [facility] Work Phone: Start: 11-16-2022 End: 11-16-[address] [facility] Work Phone: Start: 11-02-2022 End: 11-02-2022 ambulatory [facility] Work Phone: Start: 11-02-2022 End: 11-02-[address] [facility] Start: 10-19-2022 End: 10-19-[address] [facility] Start: 10-05-2022 End: 10-05-[address] Hortensia Unger Work Phone: [facility] Work Phone: Start: 10-05-2022 End: 10-05-[address] Hortensia Unger Work Phone: [facility] Start: 10-03-2022 End: 10-03-[address] Hortensia Unger Work Phone: [facility] Work Phone: Start: 10-03-2022 End: 10-03-[address] Hortensia Unger Work Phone: [facility] Start: 09-28-2022 End: 09-28-[address] Hortensia Unger Work Phone: [facility] Work Phone: Start: 09-28-2022 End: 09-28-[address] Hortensia Unger Work Phone: [facility] Start: 09-28-[address] Hortensia menchaca Work Phone: [facility] Start: 09-20-2022 End: 09-20-[address] Hortensia Unger Work Phone: [facility] Start: 09-16-2022 End: 09-16-[address] Hortensia Unger Work Phone: [facility] Work Phone: Start: 09-16-2022 End: 09-16-[address] Hortensia Unger Work Phone: [facility] Start: 09-16-[address] Hortensia menchaca Work Phone: [facility] Start: 08-29-2022 End: 08-29-[address] Hortensia Unger Work Phone: [facility] Work Phone: Start: 08-29-2022 End: 08-29-[address] Hortensia Unger Work Phone: [facility] Start: 08-08-2022 End: 08-08-[address] Hortensia Unger Work Phone: [facility] Start: 07-28-2022 End: 07-28-[address] Hortensia Unger Work Phone: [facility] Start: 07-11-2022 End: 07-11-[address] Hortensia Unger Work Phone: [facility] Work Phone: Start: 07-11-2022 End: 07-11-[address] Hortensia Unger Work Phone: [facility] Start: 07-01-2022 End: 07-01-[address] Hortensia Unger Work Phone: [facility] Start: 06-17-2022 Non-patient / Non-visit Dr. Isacc Unger Work Phone: [facility] Start: 06-16-2022 Non-patient / Non-visit Dr. Isacc Unger Work Phone: [facility] Start: 06-16-2022 End: 06-17-2022 Evaluation and management of inpatient [facility] Start: 06-16-2022 End: 06-17-[address] Hortensia Unger Work Phone: [facility] Work Phone: Start: 06-06-2022 End: 06-06-2022 ambulatory [facility] Work Phone: Start: 06-06-2022 End: 06-06-2022 Departed Referred [facility] Start: 05-09-2022 End: 05-09-2022 [facility] Start: 04-07-2022 End: 04-07-2022 ambulatory [facility] Work Phone: Start: 04-07-2022 End: 04-07-2022 [facility] Start: 03-26-2022 End: 03-26-2022 ambulatory [facility] Work Phone: Start: 03-26-2022 End: 03-26-2022 [facility] Start: 03-26-2022 Registered Referred [facility] Start: 03-16-2022 End: 03-16-2022 ambulatory [facility] Work Phone: Start: 03-16-2022 End: 03-16-2022 Departed Referred [facility] Start: 03-16-2022 Registered Referred [facility] Start: 03-15-2022 End: 03-15-2022 ambulatory [facility] Work Phone: Start: 03-15-2022 End: 03-15-2022 Departed Referred [facility] Start: 03-07-2022 End: 03-07-2022 Emergency department patient visit [facility] Start: 03-07-2022 End: 03-07-2022 ambulatory [facility] Work Phone: Start: 03-07-2022 End: 03-07-2022 [facility] Start: 02-03-2022 End: 02-03-[address] Joao Simon Work Phone: [facility] Work Phone: Start: 02-03-2022 End: 02-03-[address] Joao Simon Work Phone: [facility] Start: 01-06-2022 End: 01-06-[address] Joao Simon Work Phone: [facility] Work Phone: Start: 01-06-2022 End: 01-06-[address] Joao Simon Work Phone: [facility] Start: 12-20-[address] Joao morin Work Phone: [facility] Start: 12-13-[address] Joao morin Work Phone: [facility] Start: 12-10-[address] Joao moirn Work Phone: [facility] Start: 12-02-[address] Joao morin Work Phone: [facility] Start: 11-25-[address] Joao morin Work Phone: [facility] Start: 11-23-[address] Joao morin Work Phone: [facility] Start: 11-18-2021 End: 11-18-[address] Joao Simon Work Phone: [facility] Start: 11-04-2021 End: 11-12-2021 Evaluation and management of inpatient Dr. Joao Simon Work Phone: [facility] Start: 11-04-2021 Non-patient / Non-visit Dr. Rodrick Simon Work Phone: [facility] Start: 11-03-2021 Non-patient / Non-visit Dr. Rodrick Simon Work Phone: [facility] Start: 11-02-2021 End: 11-04-2021 Evaluation and management [facility] Start: 10-21-2021 End: 10-21-[address] [facility] Start: 10-13-2021 End: 10-13-[address] [facility] Start: 10-06-2021 End: 10-06-[address] Joao Simon Work Phone: [facility] Start: 09-29-2021 End: 09-29-[address] Joe Rosario Work Phone: [facility] Start: 09-14-2021 End: 09-14-[address] [facility] Start: 08-27-2021 End: 08-27-[address] [facility] Start: 08-11-2021 End: 08-11-[address] [facility] Start: 07-28-2021 End: 07-28-[address] [facility] Start: 07-14-2021 End: 07-14-[address] [facility] Start: 06-18-2021 End: 06-26-2021 Evaluation and management of inpatient Dr. Joe Rosario Work Phone: [facility] Start: 06-18-2021 Non-patient / Non-visit Dr. Peraza Work Phone: [facility] Start: 06-17-2021 Non-patient / Non-visit Dr. Peraza Work Phone: [facility] Start: 06-17-2021 End: 06-18-2021 Evaluation and management of inpatient Dr. Joe Rosario Work Phone: [facility] Start: 06-10-2021 End: 06-10-[address] Joe Rosario Work Phone: [facility] Start: 05-12-[address] Joe Rosario Work Phone: [facility] Start: 06-14-2017 End: 06-14-2017 Ambulatory JOAO [facility] Start: 04-03-2017 End: 04-03-2017 Ambulatory JESSIE (STEAM GIGGER) [facility] Start: 03-21-2017 End: 03-22-2017 Ambulatory KAMAR FRANKLIN [facility] Start: 03-07-2017 End: 03-09-2017 Ambulatory KAMAR FRANKLIN [facility] Start: 03-06-2017 End: 03-07-2017 Ambulatory KAMAR FRANKLIN [facility] Start: 02-15-2017 Ambulatory KAMAR FRANKLIN [facility] Start: 01-04-2017 End: 01-04-2017 Ambulatory FREDO VALDES [facility] Start: 11-25-2016 End: 11-25-2016 Ambulatory JOAO [facility] Procedures Date Procedure Procedure Detail Performing Clinician Start: 10-09-2024 CT cervical spine without contrast Dr. Melo Shrestha MD Start: 10-09-2024 CT of head without contrast Dr. Melo Shrestha MD Start: 10-09-[address] Melo Shrestha MD Start: 06-17-2024 Measurement of renal function Dr. Melo Shrestha MD Comment on above: GFR Calc Start: 06-16-[address] Melo Shrestha MD Start: 06-16-2024 Urnls dip stick/tabl et reagent auto microscopy Dr. Melo Shrestha MD Start: 09-16-2022 Urine culture Start: 06-17-2022 MRI of brain without contrast Dr. Hortensia Unger Work Phone: Start: 06-16-2022 Plain chest X-ray Start: 06-16-2022 CT angiography of he ad and neck Start: 06-16-2022 CT of head without contrast Start: 03-07-2022 Plain chest X-ray Start: 03-07-2022 CT of head without contrast Start: 11-04-2021 End: 11-04-[address] Joao Simon Work Phone: Start: 11-02-2021 CT of head without contrast Dr. Joao Simon Work Phone: Start: 11-02-2021 Plain chest X-ray Dr. Joo Simon Work Phone: Start: 06-24-2021 SARS-CoV-2 Antigen (Rapid) Dr. Joe Rosario Work Phone: Start: 06-18-2021 SARS-CoV-2 Antigen (Rapid) Dr. Joe Rosario Work Phone: Start: 06-17-2021 CT cervical spine without contrast Dr. Joe Rosario Work Phone: Start: 06-17-2021 CT of head without contrast Dr. Jeo Rosario Work Phone: Start: 06-17-2021 Plain x-ray of pelvi s and lower extremity Dr. Joe Rosario Work Phone: Start: 06-17-2021 Plain X-ray of shoulder Dr. Joe Rosario Work Phone: Start: 04-02-2013 History of coronary artery bypass grafting H/O coronary artery bypass surgery Dr. Joe Rosario Work Phone: Comment on above: CABG x 2: [id number] an d free APARICIO from the casas of the vein graft to the LAD 04/02/2013 Start: 12-28-2003 History of placement of stent for coronary artery disease History of coronary artery stent placement Dr. Joe Rosario Work Phone: Comment on above: Stents-LAD and RCA Bacteria identified in Blood by Culture Bacteria identified in Blood by Culture History of appendectomy History of append ectomy Dr. 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 Joe Rosario Work Phone: SARS-CoV-2 & FLU Antigen (Rapid) SARS-CoV-2 & FLU Antigen (Rapid) Urine culture Urine culture Urine culture Urine culture Urine culture Dr. Hortensia diego Work Phone: Viral antigen assay Dr. Joao Simon Work Phone: Plan of Treatment Date Care Activity Detail Author Start: 10-09-2024 [facility] Start: 01-29-2023 Patient referral [facility] Work Phone: Start: 06-17-2022 Patient discharge [facility] Start: 06-16-2022 Assessment of risk o f venous thromboembolism [facility] Start: 06-16-2022 Cardiac monitoring [facility] Start: 06-16-2022 Catheterization of vein [facility] Start: 06-16-2022 Continuous pulse oximetry [facility] Start: 06-16-2022 Exercises [facility] Start: 06-16-2022 Insertion of cathete r into peripheral vein [facility] Start: 06-16-2022 Measuring intake and output [facility] Start: 06-16-2022 Notification of physician [facility] Start: 06-16-2022 Oxygen therapy [facility] Start: 06-16-2022 Providing care accor ding to standard [facility] Start: 06-16-2022 Provision of activity privileges [facility] Start: 06-16-2022 Referral to occupati onal therapist [facility] Start: 06-16-2022 Referral to service [facility] Start: 06-16-2022 Speech therapy assessment [facility] Start: 06-16-2022 [facility] Start: 06-16-2022 Following clinical p athway protocol [facility] Start: 06-16-2022 Verification routine [facility] Start: 06-16-2022 Admission procedure [facility] Start: 06-16-2022 [facility] Start: 12-24-2021 Blood chemistry [facility] Work Phone: Start: 12-17-2021 Blood chemistry [facility] Work Phone: Start: 12-10-2021 Blood chemistry [facility] Work Phone: Start: 12-03-2021 Blood chemistry [facility] Work Phone: Start: 11-29-2021 Prothrombin time [facility] Work Phone: Start: 11-26-2021 Blood chemistry [facility] Work Phone: Start: 11-25-2021 Prothrombin time [facility] Work Phone: Start: 11-22-2021 Prothrombin time [facility] Work Phone: Start: 11-19-2021 Blood chemistry [facility] Work Phone: Start: 11-18-2021 Prothrombin time [facility] Work Phone: Start: 11-15-2021 Prothrombin time [facility] Work Phone: Start: 11-14-2021 Development of care plan [facility] Work Phone: Start: 11-12-2021 Blood chemistry [facility] Work Phone: Start: 11-12-2021 Patient discharge [facility] Work Phone: Start: 11-11-2021 SARS-CoV-2 (COVID-19 ) Ag [Presence] in Respiratory specimen by Rapid immunoassay [facility] Work Phone: Start: 11-11-2021 [facility] Work Phone: Start: 11-11-2021 Prothrombin time [facility] Work Phone: Start: 11-10-2021 Referral to service [facility] Work Phone: Start: 11-08-2021 [facility] Work Phone: Start: 11-05-2021 Speech therapy management [facility] Work Phone: Start: 11-05-2021 Developing a treatment plan [facility] Work Phone: Start: 11-05-2021 Development of care plan [facility] Work Phone: Start: 11-05-2021 Speech therapy assessment [facility] Work Phone: Start: 11-04-2021 Following clinical p athway protocol [facility] Work Phone: Start: 11-04-2021 Admission procedure [facility] Work Phone: Start: 11-04-2021 Measuring intake and output [facility] Work Phone: Start: 11-04-2021 Patient referral to dietitian [facility] Work Phone: Start: 11-04-2021 Referral to occupati onal therapist [facility] Work Phone: Start: 11-04-2021 Referral to service [facility] Work Phone: Start: 11-04-2021 Verification routine [facility] Work Phone: Start: 11-04-2021 Vital signs measurements [facility] Work Phone: Start: 11-04-2021 [facility] Work Phone: Start: 11-04-2021 Patient discharge [facility] Work Phone: Start: 11-03-2021 Inhalation therapy procedure [facility] Work Phone: Start: 11-02-2021 Assessment of risk o f venous thromboembolism [facility] Work Phone: Start: 11-02-2021 Insertion of cathete r into peripheral vein [facility] Work Phone: Start: 11-02-2021 Providing care accor ding to standard [facility] Work Phone: Start: 11-02-2021 Provision of activity privileges [facility] Work Phone: Start: 11-02-2021 Referral to occupati onal therapist [facility] Work Phone: Start: 11-02-2021 Referral to service [facility] Work Phone: Start: 11-02-2021 [facility] Work Phone: Start: 11-02-2021 Following clinical p athway protocol [facility] Work Phone: Start: 11-02-2021 Admission procedure [facility] Work Phone: Anion gap measurement [facility] Work Phone: BUN/Creatinine ratio [facility] Work Phone: Calcium [Mass/volume ] in Serum or Plasma [facility] Work Phone: Carbon dioxide, tota l [Moles/volume] in Serum or Plasma [facility] Work Phone: Chloride [Moles/volu me] in Serum or Plasma [facility] Work Phone: Creatinine [Moles/vo lume] in Serum or Plasma [facility] Work Phone: Folate [Mass/volume] in Serum or Plasma [facility] Glucose [Mass/volume ] in Serum or Plasma [facility] Work Phone: Hematocrit [Volume F raction] of Blood [facility] Work Phone: Hemoglobin [Mass/volume] in Blood [facility] Work Phone: INR in Blood by Coagulation assay [facility] Work Phone: [place] and lambda light chains [facility] Leukocytes [#/volume] in Blood [facility] Work Phone: Mean corpuscular hem oglobin concentration determination [facility] Work Phone: Mean corpuscular hem oglobin determination [facility] Work Phone: Measurement of renal function [facility] Work Phone: Neutrophil count [facility] Work Phone: Neutrophil percent d ifferential count [facility] Work Phone: Patient Education [facility] Work Phone: Patient referral [facility] Work Phone: Platelets [#/volume] in Blood [facility] Work Phone: Potassium [Moles/vol ume] in Serum or Plasma [facility] Work Phone: Prothrombin time [facility] Work Phone: Red blood cell count [facility] Work Phone: Red cell distributio n width determination [facility] Work Phone: Sodium [Moles/volume ] in Serum or Plasma [facility] Work Phone: Thiamine measurement [facility] Thyroid stimulating hormone measurement [facility] Urea nitrogen [Mass/ volume] in Serum or Plasma [facility] Work Phone: US Heart [facility] Work Phone: Vitamin B12 measurement [facility] Immunizations Immunization Date Immunization Notes Care Provider Fa cili 11-09-2021 Covid (Pfizer) Dr. Joao lakhani Work Phone: [facility] 04-16-[address] Joe Rosario Work Phone: [facility] 03-17-2021 Covid (Pfizer) Dr. Joe Riggs nnedy Work Phone: [facility] 07-16-2020 Covid (Pfizer) Dr. Joe Riggs nnedy Work Phone: [facility] 06-24-2020 Covid (Pfizer) Dr. Joe Riggs nnedy Work Phone: [facility] 03-08-[address] Joe Rosario Work Phone: [facility] Payers Date Payer Category Payer Self-pay [id number] 2015 Medicare [id number] Unknown [id number] 2.16.8 40.1.809866.3.579.2.462 Unknown [id number] 2.16.8 40.1.954336.3.579.2.462 Unknown [id number] 2.16.8 40.1.793900.3.579.2.462 Unknown [id number] 2.16.8 40.1.320008.3.579.2.462 Unknown [id number] 2.16.8 40.1.770979.3.579.2.462 Unknown [id number] 2.16.8 40.1.979690.3.579.2.462 Unknown [id number] 2.16.8 40.1.543626.3.579.2.462 Unknown [id number] 2.16.8 40.1.556874.3.579.2.462 Unknown [id number] 2.16.8 40.1.485037.3.579.2.462 Unknown [id number] 2.16.8 40.1.893643.3.579.2.462 Unknown [id number] 2.16.8 40.1.119116.3.579.2.462 Unknown [id number] 2.16.8 40.1.675806.3.579.2.462 Unknown [id number] 2.16.8 40.1.344867.3.579.2.462 Unknown [id number] 2.16.8 40.1.815679.3.579.2.462 Unknown [id number] 2.16.8 40.1.288600.3.579.2.462 Unknown [id number] 2.16.8 40.1.492996.3.579.2.462 Unknown [id number] 2.16.8 40.1.450348.3.579.2.462 Unknown [id number] 2.16.8 40.1.042054.3.579.2.462 Unknown [id number] 2.16.8 40.1.484559.3.579.2.462 Unknown [id number] 2.16.8 40.1.768070.3.579.2.462 Unknown [id number] 2.16.8 40.1.965374.3.579.2.462 Unknown [id number] 2.16.8 40.1.625122.3.579.2.462 Unknown [id number] 2.16.8 40.1.118091.3.579.2.462 Unknown [id number] 2.16.8 40.1.105837.3.579.2.462 Unknown [id number] 2.16.8 40.1.046909.3.579.2.462 Unknown [id number] 2.16.8 40.1.541027.3.579.2.462 Unknown [id number] 2.16.8 40.1.072886.3.579.2.462 Unknown [id number] 2.16.8 40.1.903410.3.579.2.462 Unknown [id number] 2.16.8 40.1.349556.3.579.2.462 Unknown [id number] 2.16.8 40.1.793057.3.579.2.462 Unknown [id number] 2.16.8 40.1.012503.3.579.2.462 Unknown [id number] 2.16.8 40.1.817428.3.579.2.462 Unknown [id number] 2.16.8 40.1.617876.3.579.2.462 Unknown [id number] 2.16.8 40.1.794676.3.579.2.462 Unknown [id number] 2.16.8 40.1.724957.3.579.2.462 Unknown [id number] 2.16.8 40.1.857567.3.579.2.462 Unknown [id number] 2.16.8 40.1.591647.3.579.2.462 Unknown [id number] 2.16.8 40.1.213792.3.579.2.462 Unknown [id number] 2.16.8 40.1.458789.3.579.2.462 Social History Date Type Detail Facility Start: 06-18-2021 End: 02-02-2023 Tobacco smoking status NHIS Unknown if ever smoked [facility] Start: 04-11-2019 None [facility] Start: 09-06-2019 Alone [facility] Start: 1935 Sex Assigned At Female [facility] Start: 03-24-2024 End: 10-09-2024 Tobacco smoking status NHIS Ex-smoker (finding) [facility] Start: 08-02-2024 End: 09-10-2024 Sex Female (finding) [facility] Goals Date Patient Goal Desired Activity /State Functional Status Date Assessment Result Facility 06-17-2022 Functional status Bedrest [facility] Work Phone: 11-12-2021 Functional status Ambulates;Up ad romero [facility] Work Phone: 11-10-2021 Functional status Ambulates;Up ad romero [facility] Work Phone: 11-04-2021 Functional status Chair [facility] Work Phone: 06-25-2021 Functional status Activity Ability Indepe ndent [facility] Work Phone: 06-22-2021 Functional status Ambulates [facility] Work Phone: 06-18-2021 Functional status Patient Activity Chair [facility] Work Phone: 06-18-2021 Functional status Activity Abili ty With Assist of 1 [facility] Work Phone: Mental Status Date Assessment Result Facility 06-17-2022 Cognitive function Voice/Name [facility] Work Phone: 06-16-2022 Cognitive function Voice/Name [facility] Work Phone: 11-12-2021 Cognitive function Voice/Name [facility] Work Phone: 11-10-2021 Cognitive function Comprehension Ability Demonstrates ability to follow instructions/comprehend [facility] Work Phone: 11-09-2021 Cognitive function Voice/Name [facility] Work Phone: 11-05-2021 Cognitive function Comprehension Ability Demonstrates ability to follow instructions/comprehend [facility] Work Phone: 11-04-2021 Cognitive function Appropriate;Cooperativ e [facility] Work Phone: 06-25-2021 Cognitive function Voice/Name [facility] Work Phone: 06-18-2021 Cognitive function Voice/Name [facility] Work Phone: Clinical Notes 04-02-2013 to 10-09-2024 Note Date & Type Note Facility 10-09-2024 Radiology Diagnostic study note [facility] Imaging Services [address] [place] [address] Spine Cervical without Contras MR#: [id number] Acct: [id number] Name: COLETTE RICHARDSON Rep #: [id number] : 1935 F 89 From: Kristen Schmidt MD PCP: Dr. Melo Shrestha MD Status: REG ER Study:Spine Cervical without Contras Date of Exam: 10/09/24 Exam# [id number] Ordering Dr: Se Schmidt DO EXAM: CT Cervical Spine Without Intravenous Contrast CLINICAL INDICATION: INJURY TECHNIQUE: Axial computed tomography images of the cervical spine without intravenous contrast. This CT exam was performed using one or more of the following dose reduction techniques: automated exposure control, adjustment of the mA and/or kV according to patient size, and/or use of iterative reconstruction technique. COMPARISON: No relevant prior studies available. FINDINGS: VERTEBRAE: Mild reversal cervical spine lordosis. 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 No acute fracture. DISCS/SPINAL CANAL/NEURAL FORAMINA: Degenerative disc disease lower cervical spine. SOFT TISSUES: Unremarkable. CT/Spine Cervical without Contras IMPRESSION: 1. No acute fracture. 2. Degenerative changes cervical spine as described. Reading Location: [facility] CC: Dr. Melo Shrestha MD; Dr. Se Schmidt DO Collar Worker: Signed [facility] 10-09-2024 Radiology Diagnostic study note [facility] Imaging Services [address] [place] [id number] Brain/Head without Contrast MR#: [id number] Acct: [id number] Name: COLETTE RICHARDSON Rep #: [id number] : 1935 F 89 From: Kristen Schmidt MD PCP: Dr. Melo Shrestha MD Status: REG ER Study:Brain/Head without Contrast Date of Exa m: 10/09/24 Exam# [id number] Ordering Dr: Se Schmidt DO EXAM: CT Head Without Intravenous Contrast CLINICAL INDICATION: HEAD INJURY TECHNIQUE: Axial computed tomography images of the head/brain without intravenous contrast. This CT exam was performed using one or more of the following dose reduction techniques: automated exposure control, adjustment of the mA and/or kV according to patient size, and/or use of iterative reconstruction technique. COMPARISON: No relevant prior studies available. FINDINGS: BRAIN AND EXTRA-AXIAL SPACES: Areas of decreased attenuation in the deep cerebral white matter are consistent with small vessel ischemic/degenerative changes. The cerebral and cerebellar sulci are prominent consistent with brain atrophy. No acute intracranial hemorrhage, midline shift or mass effect. If symptoms persist, further evaluation with MRI is recommended. BONES/JOINTS: Unremarkable. No acute fracture. SOFT TISSUES: Unremarkable. SINUSES: Unremarkable as visualized. No acute sinusitis. MASTOID AIR CELLS: Unremarkable as visualized. No mastoid effusion. CT/Brain/Head without Contrast IMPRESSION: 1. Small vessel ischemic/degenerative changes. 2. Generalized brain atrophy. 3. No acute intracranial hemorrhage, midline shift or mass effect. If symptoms persist, further evaluation with MRI is recommended. Reading Location: [facility] CC: Dr. Melo Shrestha MD; Dr. Se Schmidt, DO ~ Collar Worker: Signed [facility] 10-09-2024 Hospital Discharg e instructions Additional Instructions Your INR is 2.[address] head and neck negative for acute process. Use Tylenol as needed. Follow-up with your doctor. [facility] Work Phone: 02-02-2023 Discharge summary Note Date/Time February 02, 2023 5:54pm [facility] Medical Records Department [address] [place] [address] Emergency Department Summary 02/02/23 MR#: [id number] Acct: [id number] Name: COLETTE RICHARDSON Rep #:[id number] : 1935 87 From: Matt Coy MD PCP: Dr. Joao Simon MD Status:REG E R Location: ED HPI History of Present Illness Chief Complaint: Nausea/Vomiting Informant: patient and family Narrative Narrative: Patient presents with nausea and vomiting. History is from patient and also from her daughter who is a nurse. Patient was started on Aricept last Monday. After starting this she vomited once. Since then she has been nauseated. She has been drinking a little bit ofginger idania and occasional bites of food only. The Aricept was discontinued on Monday. But her symptoms have continued. She has only had 2 bowel movements inthat time but she has chronic constipation and that would not be abnormal especially when she is not eating and drinking much. The reason she came in today is because she vomited once again today. This was her second time. She denied abdominal pain. But her daughter had stated the patient did tell her that her abdomen was somewhat uncomfortable. She has not had fevers. There were evidently 1 staff member and 1 patient at her facility that have COVID but this patient has been tested twice and has been negative including being negative today. She is not coughing. She also has a history of hyponatremia and they are concerned that that might be causing this. [facility] Medical History Atherosclerotic heart disease of circle coronary artery without angina pectoris Atrial fibrillation with RVR (10/01/16) Bilateral breast cancer Depression Essential hypertension Frequent falls History of non-ST elevation myocardial infarction (NSTEMI) (10/01/16) History of Parkinson's disease History of pulmonary embolus (PE) Hypercoagulable state watermaster current use of anticoagulant Memory loss Nonrheumatic aortic (valve) stenosis Parkinsonian syndrome Paroxysmal atrial fibrillation Poor balance Postoperative atrial fibrillation (04/04/13) Recurrent deep vein thrombosis (DVT) Restrictive airway disease Rheumatoid arthritis Home Medications atorvastatin 40 mg tablet 40 mg PO QHS cholesterol 10/01/16 [History Last Taken 06/15/22 20:45] venlafaxine 75 mg tablet 75 mg PO QHS DEPRESSION 02/14/19 [History Last Taken 06/15/22 20:45] albuterol sulfate 90 mcg/actuation aerosol inhaler (Ventolin HFA) 2 puff inhalation Q6H PRN Wheezing 09/23/21 [History Last Taken Unknown] losartan 100 mg tablet 100 mg PO DAILY BP 09/23/21 [History Last Taken 06/16/22 09:15] trazodone 100 mg tablet 100 mg PO QHS Sleep 09/23/21 [History Last Taken 06/15/22 20:45] hydroxychloroquine 200 mg tablet 200 mg PO BID RA 11/02/21 [History Last Taken 06/16/22 09:15] venlafaxine 150 mg capsule,extended release 24 hr 150 mg PO BREAKFAST [id number]/22 [History Last Taken 06/16/22 09:15] alprazolam 0.25 mg tablet 0.25 mg PO QHS PRN PRN Anxiety/Restlessness/Sleep #0 tabs 11/10/21 [Rx Last Taken 06/15/22 11:30] potassium chloride 20 mEq tablet,extended release(part/cryst) (Klor-Con M) 20 meq PO DAILYCM 30 days #30 tabs 11/10/21 [Rx Last Taken 06/16/22 09:15] acetaminophen 325 mg tablet 650 mg PO Q6H PRN Pain 06/16/22 [History Last Taken 06/08/22 20:00] alprazolam 0.5 mg tablet 0.5 mg PO QHS DEPRESSION 06/16/22 [History Last Taken 06/15/22 20:45] metoprolol tartrate 100 mg tablet 100 mg PO BID HTN 06/16/22 [History Last Taken 06/16/22 09:15] aspirin 81 mg capsule 81 mg PO DAILY 30 days #30 caps 06/17/22 [Rx Last Taken Unknown] carbidopa 10 mg-levodopa 100 mg disintegrating tablet 1 tab PO TID 01/09/23 [History Last Taken Unknown] metoprolol tartrate 100 mg tablet 100 mg PO BID 01/09/23 [History Last Taken Unknown] warfarin 5 mg tablet 5 mg PO DINNER AFIB 01/09/23 [History Last Taken Unknown] warfarin 6 mg tablet 6 mg PO .3XW 01/09/23 [History Last Taken Unknown] donepezil 10 mg tablet 10 mg PO QHS #30 tabs 01/29/23 [Rx Last Taken Unknown] donepezil 5 mg tablet 5 mg PO QHS #30 tabs 01/29/23 [Rx Last Taken Unknown] ondansetron 4 mg disintegrating tablet 4 mg PO Q8H PRN PRN Nausea #10 tabs 02/02/23 [Rx Last Taken Unknown] Allergy/AdvReac Type Severity Reaction Status Date / Time Penicillins Allergy Anaphylaxis Verified 02/02/23 15:12 acetaminophen [From Vicodin] AdvReac Itching Verified 02/02/23 15:12 codeine AdvReac Nausea Verified 02/02/23 15:12 ezetimibe [From Zetia] AdvReac Itching Verified 02/02/23 15:12 hydrocodone bitartrate AdvReac Itching Verified 02/02/23 15:12 [From Vicodin] Sixechf-NCX-CpV Reductase AdvReac Other Verified 02/02/23 15:12 Inhibitor [Flprcqn-Svb-Hht Reductase Inhibitor] Surgical History 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) History of appendectomy History of cardioversion (10/01/16) History of coronary artery stent placement (12/2003) History of left heart catheterization (10/13/15) Social History household members: none Smoking Status: Former smoker how long ago did patient quit smokin, 1ppd second hand exposure: Yes alcohol intake: never substance use type: does not use ROS ROS ED ROS Narrative A complete review of systems was performed and is negative except as documented in the history of present illness. Some specific details below. Constitutional: No recent fevers or chills. She does have some generalized malaise because she has not been eating or drinking for a week. EYE: No visual complaints or pain. ENT: No difficulty swallowing. No swelling. No pain. Not having GERD CV: No chest pain or palpitations. Respiratory: No dyspnea. No hemoptysis. No difficulty taking breaths. Not shortof breath GI: Please see history of present illness. : No frequency dysuria or hematuria. She does need to urinate now. Musculoskeletal: No recent trauma. No pains. Skin: No rash. Nondiaphoretic. Neuro: No weakness or numbness. Endocrine: No polyuria or polydipsia. EXAM Physical Exam Narrative Exam Narrative: CONSTITUTIONAL: Patient is nontoxic in appearance. The patient looks comfortable. She is very pleasant and cooperative. HEENT: No notable trauma. Mucous membranes are mildly dry. No indication of painwith swallowing. EYES: No conjunctival injection. No proptosis. CARDIOVASCULAR: Regular rate. Regular rhythm. No notable murmur. No JVD. RESPIRATORY: No respiratory distress. Breathing is unlabored. No wheezes. No rhonchi. No rales. No pain with a deep breath. GASTROINTESTINAL: Not distended. Bowel sounds are normal to slightly quiet. No tenderness. No guarding. No rebound. No palpable mass. No bruit. Overall her exam is relatively benign at this time. GENITOURINARY: No tenderness over the bladder. Although it does not hurt pressing over the bladder she states she does have to urinate. No CVA tenderness. MUSCULOSKELETAL: Atraumatic. No significant peripheral edema. No cord. No tenderness along the deep venous system. No asymmetry. NEUROLOGICAL: Patient is alert and appropriate. No focal deficit noted. SKIN: No noted rashes. No diaphoresis. PSYCHIATRIC: Patient is calm. Mood is appropriate. Const Vital Signs: 02/02/23 15:12 02/02/23 18:43 Temperature 97.9 F Temperature Source Temporal Pulse Rate 64 66 Respiratory Rate 18 Blood Pressure 171/78 H 186/92 H Blood Pressure Mean 109 123 Pulse Ox 97 Oxygen Delivery Method Room Air MDM MDM MDM Narrative Medical decision making narrative: Patient CBC shows no marked abnormalities. Patient's INR is therapeutic at 3.5. Just a little on the high side. Patient's electrolytes show no marked abnormalities. Her sodium was good at 137. Per her daughter, ever since she has been off hydrochlorothiazide her sodium has really stayed well. But they were concerned about this. Patient's liver function test are overall normal. Patient paces normal Patient's urinalysis is normal. We rechecked the patient. She received fluids and Zofran. She does feel bettereven her daughter states she had has not looked this good in a week. Her abdomen completely benign. We discussed considering CT but she has no tenderness. She has moved her bowels. She is not nauseated. She has no fevers. No white count. They are comfortable with her going back and managing this. Lab Data Attestation: I reviewed the patient's lab results. Labs: Laboratory Results - last 24 hr 02/02/23 02/02/23 18:05 18:40 WBC 7.1 RBC 4.68 Hgb 14.3 Hct 44.0 MCV 94.0 MCH 30.6 MCHC 32.5 RDW Std Deviation 42.9 RDW Coeff of Lindy 12.5 Plt Count 216 MPV 10.3 Immature Gran % (Auto) 0.300 Neut % (Auto) 65.1 Lymph % (Auto) 24.4 [place] % (Auto) 7.9 Eos % (Auto) 1.7 Baso % (Auto) 0.6 Absolute Neuts (auto) 4.6 Absolute Lymphs (auto) 1.73 Nucleated RBC % 0 PT 36.0 H INR 3.5 Sodium 137 Potassium 4.5 Chloride 104 Carbon Dioxide 30.0 Anion Gap 3 L BUN 11 Creatinine 0.68 Est GFR (MDRD) Af Amer 106 Est GFR (MDRD) Non-Af 87 BUN/Creatinine Ratio 16.2 Glucose 133 H Calcium 8.9 Total Bilirubin 0.30 AST 18 ALT 15 Alkaline Phosphatase 73 Total Protein 6.9 Albumin 3.2 Globulin 3.7 Albumin/Globulin Ratio 0.9 Lipase 15 Urine Color Yellow Urine Clarity Clear Urine pH 6.5 Ur Specific [place] 1.015 Urine Protein Negative Urine Glucose (UA) Normal Urine Ketones Negative Urine Occult Blood 25 H Urine Nitrite Negative Urine Bilirubin Negative Urine Urobilinogen Normal Ur Leukocyte Esterase 25 H Urine RBC 0-5 SEEN Urine WBC 0-5 SEEN Ur Squamous Epith Cells 0 SEEN Urine Bacteria 0 SEEN Urine Mucus 1+ Management Discussion w/another healthcare provider: Other (Discussed with her daughter whois also a nurse.) Discharge Plan Triage Chief Complaint: Nausea/Vomiting ED Provider: Matt Coy Dx/Rx/DC Orders Clinical Impression: Nausea & vomiting Instructions: ED Vomiting (Adult) Prescriptions: New ondansetron [ondansetron] 4 mg tablet,disintegrating 4 mg PO Q8H PRN PRN (Reason: Nausea) Qty: 10 0RF No Action trazodone 100 mg tablet 100 mg PO QHS Patient Comments: TAKE 1 TABLET BY MOUTH AT BEDTIME albuterol sulfate [Ventolin HFA] 90 mcg/actuation HFA aerosol inhaler 2 puff inhalation Q6H PRN (Reason: Wheezing) losartan 100 mg tablet 100 mg PO DAILY Patient Comments: DAUGHTER IS UNSURE IF PT IS STILL TAKING. SHE WILL VERIFY AND CALL WITH UPDATE. warfarin 6 mg tablet 6 mg PO .3XW Rx Instructions: take on tab PO on time a day three times weekly on , and Sun in theevening carbidopa-levodopa 10-100 mg tablet,disintegrating 1 tab PO TID metoprolol tartrate 100 mg tablet 100 mg PO BID donepezil 5 mg tablet 5 mg PO QHS Qty: 30 0RF donepezil 10 mg tablet 10 mg PO QHS Qty: 30 5RF Rx Instructions: Begin after completing one month of treatment of donepezil 5mg nightly atorvastatin 40 MG tablet 40 mg PO QHS Patient Comments: CHOLESTEROL venlafaxine 75 MG tablet 75 mg PO QHS venlafaxine 150 mg Capsule,Extended Release 24hr 150 mg PO BREAKFAST hydroxychloroquine 200 mg tablet 200 mg PO BID Patient Comments: TAKE 1 TABLET BY MOUTH TWICE DAILY alprazolam 0.25 mg Tablet 0.25 mg PO QHS PRN PRN (Reason: Anxiety/Restlessness/Sleep) Qty: 0 0RF potassium chloride [Klor-Con M20] 20 mEq Tablet,Er Particles/Crystals 20 meq PO DAILYCM 30 Days Qty: 30 0RF acetaminophen 325 mg Tablet 650 mg PO Q6H PRN (Reason: Pain) metoprolol tartrate 100 mg tablet 100 mg PO BID alprazolam 0.5 mg tablet 0.5 mg PO QHS aspirin 81 mg capsule 81 mg PO DAILY 30 Days Qty: 30 0RF warfarin 5 mg tablet 5 mg PO DINNER Rx Instructions: 1 tb PO one time a day four times weekly on Mon, Wed, Fri, and Sat Evening. Primary Care Provider: Joao Simon Referrals: Joao Simon MD [Primary Care Provider] - 3-5 Days if not improving Disposition [facility]position[facility] What to do if you have Problems For any increased pain, shortness of breath, bleeding, nausea or vomiting, chestpain, or any unexpected problems, contact your Primary Care Provider. Call [facility] ([phone]) or report to the closest Emergency Room. Call 911 if necessary. 02/02/232013 <Electronically signed by Matt Coy MD> Cosigner Signature (if applicable): CC: Dr. Joao Simon MD ~ Signed [facility] Work Phone: 1(411) 836-325201-20-[address] Lopez [facility] June 17, 2022 1:53pm Note Date/Time June 17, 2022 1 2:29pm [facility] Medical Records Department [address] [place] [id number] Instructions for Home/Discharge Instructions 06/17/22 1229 MR#: [id number] Acct: [id number] Name: COLETTE RICHARDSON Rep #:[id number] : 1935 86 From: Jesenia Lopez MD PCP: Dr. Hortensia Unger MD Status:ADM HUGO Discharge Instructions Diet Discharge Diet: Low fat / Low cholesterol and 2000 mg Sodium Diet Activity Discharge Activity: Return to Normal Activity Follow Up Care Test Results: Test results from this visit will be discussed in further detail at your follow- up appointment, if applicable. Discharge Plan Admission Admit Date/Time: 06/16/22 16:28 Primary Reason for Your Visit: Right sided weakness Attending Provider: Jesenia Lopez Primary Care Provider: Hortensia Unger Consulting Providers: Gonzalo Stephens Discharge Orders/Prescriptions Prescriptions: New aspirin 81 mg capsule 81 mg PO DAILY 30 Days Qty: 30 0RF Continued trazodone 100 mg tablet 100 mg PO QHS Label Comments: TAKE 1 TABLET BY MOUTH AT BEDTIME albuterol sulfate [Ventolin HFA] 90 mcg/actuation HFA aerosol inhaler 2 puff inhalation Q6H PRN (Reason: Wheezing) losartan 100 mg tablet 100 mg PO DAILY Label Comments: DAUGHTER IS UNSURE IF PT IS STILL TAKING. SHE WILL VERIFY AND CALL WITH UPDATE. atorvastatin 40 MG tablet 40 mg PO QHS Label Comments: CHOLESTEROL venlafaxine 75 MG tablet 75 mg PO QHS venlafaxine 150 mg Capsule,Extended Release 24hr 150 mg PO BREAKFAST hydroxychloroquine 200 mg tablet 200 mg PO BID Label Comments: TAKE 1 TABLET BY MOUTH TWICE DAILY alprazolam 0.25 mg Tablet 0.25 mg PO QHS PRN PRN (Reason: Anxiety/Restlessness/Sleep) Qty: 0 0RF potassium chloride [Klor-Con M20] 20 mEq Tablet,Er Particles/Crystals 20 meq PO DAILYCM 30 Days Qty: 30 0RF hydrochlorothiazide 25 mg tablet 25 mg PO DAILY acetaminophen 325 mg Tablet 650 mg PO Q6H PRN (Reason: Pain) metoprolol tartrate 100 mg tablet 100 mg PO BID alprazolam 0.5 mg tablet 0.5 mg PO QHS warfarin 5 mg tablet 5 mg PO DINNER Referrals / Follow Up: Hortensia Unger MD [Primary Care Provider] - Disposition Disposition (needs filled in before D/C Order can be placed): NonSkilled NH/Intermed Care 06/17/22 1353<Electronically signed by Jesenia Lopez MD>Jesenia Lopez MD CC: Dr. Hortensia Unger MD; Dr. Gonzalo Stephens, DO ~ Signed [facility] Work Phone: 1([phone]) 574-471501-19-2023 History and physical note Author Dr. Stephens [facility] June 16, 2022 8:43pm Note Date/Time June 16, 2022 8 :34pm [facility] Medical Records Department [address] [place] [address] H&P Exam - Hospitalist 06/16/222028 MR#: [id number] Acct: [id number] Name: COLETTE RICHARDSON Rep #:[id number] : 1935 86 From: Gonzalo Stephens DO PCP: Dr. Hortensia Unger MD Status:ADM HUGO Location: [place] [address] HPI - General General Date of Admission: 06/16/22 Date of Service: 06/16/22 Chief Complaint: Right upper extremity weakness, slurred speech HPI Narrative COLETTE RICHARDSON, is a 86 F who presents to the emergency room at [facility] from assisted living facility with complaints of right upper extremity weakness and slurred speech which started approximately 11 AM this morning. Patient has a past history of cerebrovascular disease, she is not taking a daily aspirin however. Patient also has a history of paroxysmal atrial fibrillation and pulmonary emboli, she does take Coumadin chronically. A stroke alert was called when the patient reached the emergency room, CT of thehead was performed as well as a CT of the head and neck, there was no evidence of acute stroke/bleed and tPA was not recommended. Labs were obtained, CBC was unremarkable, chemistry profile was unremarkable, and INR was 1.9. Patient's NIH score was 1. Patient will be placed in observation status on PCU, she will have an MRI of thebrain tomorrow, I have not ordered an echocardiogram on the patient-this could be performed pending the results of the patient's MRI. According to the patient's daughter who was present at the time of my examination in the room today, patient has had a past history of a CVA, the daughter does not think her speech is slurred at this time. COUNT INCLUDES THE [facility] Medical History Atherosclerotic heart disease of circle coronary artery without angina pectoris Atrial fibrillation with RVR (10/01/16) Bilateral breast cancer Depression Essential hypertension Frequent falls History of non-ST elevation myocardial infarction (NSTEMI) (10/01/16) History of pulmonary embolus (PE) Hypercoagulable state residential current use of anticoagulant Memory loss Nonrheumatic aortic (valve) stenosis Parkinsonian syndrome Paroxysmal atrial fibrillation Poor balance Postoperative atrial fibrillation (04/04/13) Recurrent deep vein thrombosis (DVT) Restrictive airway disease Rheumatoid arthritis Home Medications atorvastatin 40 mg tablet 40 mg PO QHS cholesterol 10/01/16 [History Last Taken 06/15/22 20:45] venlafaxine 75 mg tablet 75 mg PO QHS DEPRESSION 02/14/19 [History Last Taken 06/15/22 20:45] albuterol sulfate 90 mcg/actuation aerosol inhaler (Ventolin HFA) 2 puff inhalation Q6H PRN Wheezing 09/23/21 [History Last Taken Unknown] losartan 100 mg tablet 100 mg PO DAILY BP 09/23/21 [History Last Taken 06/16/22 09:15] trazodone 100 mg tablet 100 mg PO QHS Sleep 09/23/21 [History Last Taken 06/15/22 20:45] hydroxychloroquine 200 mg tablet 200 mg PO BID RA 11/02/21 [History Last Taken 06/16/22 09:15] venlafaxine 150 mg capsule,extended release 24 hr 150 mg PO BREAKFAST [id number]/07/22 [History Last Taken 06/16/22 09:15] alprazolam 0.25 mg tablet 0.25 mg PO QHS PRN PRN Anxiety/Restlessness/Sleep #0 tabs 11/10/21 [Rx Last Taken 06/15/22 11:30] potassium chloride 20 mEq tablet,extended release(part/cryst) (Klor-Con M) 20 meq PO DAILYCM 30 days #30 tabs 11/10/21 [Rx Last Taken 06/16/22 09:15] hydrochlorothiazide 25 mg tablet 25 mg PO DAILY 03/07/22 [History Last Taken 06/16/22 09:15] acetaminophen 325 mg tablet 650 mg PO Q6H PRN Pain 06/16/22 [History Last Taken 06/08/22 20:00] alprazolam 0.5 mg tablet 0.5 mg PO QHS DEPRESSION 06/16/22 [History Last Taken 06/15/22 20:45] metoprolol tartrate 100 mg tablet 100 mg PO BID HTN 06/16/22 [History Last Taken 06/16/22 09:15] warfarin 5 mg tablet 5 mg PO DINNER AFIB 06/16/22 [History Last Taken 06/15/22 16:45] Allergy/AdvReac Type Severity Reaction Status Date / Time Penicillins Allergy Anaphylaxis Verified 06/16/22 12:15 acetaminophen [From Vicodin] AdvReac Itching Verified 06/16/22 12:15 codeine AdvReac Nausea Verified 06/16/22 12:15 ezetimibe [From Zetia] AdvReac Itching Verified 06/16/22 12:15 hydrocodone bitartrate AdvReac Itching Verified 06/16/22 12:15 [From Vicodin] Bchnlpl-BYY-OaW Reductase AdvReac Other Verified 06/16/22 16:35 Inhibitor [Lcotdnm-Bkr-Snx Reductase Inhibitor] Surgical History 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) History of appendectomy History of cardioversion (10/01/16) History of coronary artery stent placement (12/2003) History of left heart catheterization (10/13/15) Social History household members: none Smoking Status: Former smoker how long ago did patient quit smokin, 1ppd second hand exposure: Yes alcohol intake: never substance use type: does not use ROS Constitutional Constitutional: Denies anorexia, change in weight, chills, fatigue, fever(s), night sweats or weakness Eyes Eyes: Denies blurry vision, change in vision, discharge from eye(s) or eye pain Cardiovascular Cardiovascular: Denies chest pain, claudication, dyspnea on exertion, edema, lightheadedness or palpitations Respiratory/Chest Respiratory/Chest: Denies cough, excessive phlegm production, hemoptysis, productive cough, shortness of breath at rest or shortness of breath with exertion Gastrointestinal Gastrointestinal: Denies abdominal pain, constipation, diarrhea, hematemesis, hematochezia, melena, nausea or vomiting Genitourinary Genitourinary: Denies dysuria, hematuria, urinary frequency, urinary hesitancy, urinary incontinence or urinary urgency Musculoskeletal Musculoskeletal: Denies back pain, joint pain, joint stiffness, joint swelling, myalgias or neck pain Neurologic Neurologic: Reports abnormal speech and focal weakness; Denies abnormal gait, dizziness, headache(s), loss of vision, numbness, other visual disturbances, paresthesias, syncope or tingling Psychiatric Psychiatric: Denies anxiety, cognitive impairment, depression, irritability, mood swings or suicidal ideation Endocrine Endocrinology: Denies change in body appearance, cold intolerance, excessive sweating, heat intolerance, polydipsia or polyuria Hematologic/Lymphatic Hematologic/Lymphatic: Denies none, anemia, easy bleeding, easy bruising or lymphadenopathy Allergic/Immunologic Allergic/Immunologic: Denies rhinitis, urticaria, eczemia or asthma Vital Signs Vital Signs Vital Signs: 06/16/22 12:16 06/16/22 12:48 06/16/22 12:48 Temperature 97.9 F Temperature Source Temporal Pulse Rate 61 65 Respiratory Rate 13 16 Blood Pressure 150/113 H 131/74 H Blood Pressure Mean 125 93 Pulse Ox 92 Oxygen Delivery Method Room Air Room Air Room Air 06/16/22 14:14 06/16/22 16:14 06/16/22 18:14 Temperature Temperature Source Pulse Rate Respiratory Rate 16 18 Blood Pressure 156/67 H Blood Pressure Mean 96 Pulse Ox Oxygen Delivery Method 06/16/22 17:33 06/16/22 18:07 Temperature 97.6 F L Temperature Source Temporal Pulse Rate 67 62 Respiratory Rate 20 H Blood Pressure 156/67 H Blood Pressure Mean 96 Pulse Ox 95 Oxygen Delivery Method Room Air Weight Weight: 78.4 kg Body Mass Index (BMI) 32.6 Physical Exam Const alert, oriented x3, no apparent distress and average body habitus Constitutional Narrative: Patient appears her stated age General Appearance: cooperative, well kempt and well developed Orientation / Consciousness: awake, oriented to person, oriented to place and oriented to time HEENT normocephalic, head/scalp atraumatic, hearing grossly normal bilaterally and moist oral mucous membranes Eyes PERRL, EOMs intact bilaterally and conjunctivae normal Neck supple, no JVD, thyroid normal and no carotid bruits General: trachea midline Resp normal respiratory effort, no retractions, no use of accessory muscles and clearto auscultation bilaterally Auscultation: Negative for rales, rhonchi or wheezes Cardio regular rate, regular rhythm, S1 normal heart sound, S2 normal heart sound, no murmurs, no rub and no gallops GI normal to inspection, nondistended, normoactive bowel sounds, soft to palpation,non-tender and non-distended Extremity no clubbing, cyanosis or edema Skin no rashes or lesions noted General Skin Exam: no breakdown Neuro oriented x3, CN's II-XII intact bilaterally, moves all extremities and no sensory deficits noted Neuro Narrative: This examiner did not detect any weakness in the patient's right upper extremityon examination, patient has a slow deliberate speech pattern which according to the daughter is normal for the patient Sensorium / Orientation: awake, alert, oriented to person, oriented to place andoriented to time Motor Exam: strength 5/5 throughout Psych affect normal Results Lab / Micro Data Result Diagrams: 06/16/22 12:51 06/16/22 12:51 Labs: Laboratory Results - last 24 hr 06/16/22 12:51: WBC 6.4, RBC 4.32, Hgb 13.1, Hct 39.5, MCV 91.4, MCH 30.3, MCHC 33.2, RDW Std Deviation 41.0, RDW Coeff of Lindy 12.3, Plt Count 233, MPV 10.1, Immature Gran % (Auto) 0.200, Neut % (Auto) 56.3, Lymph % (Auto) 30.6, [place] % (Auto) 8.2, Eos % (Auto) 3.9, Baso % (Auto) 0.8, Absolute Neuts (auto) 3.6, Absolute Lymphs (auto) 1.94, Nucleated RBC % 0 06/16/22 12:51: PT 21.0 H, INR 1.9, APTT 30.2 06/16/22 12:51: Sodium 135 L, Potassium 4.2, Chloride 99, Carbon Dioxide 32.0, Anion Gap 4 L, BUN 12, Creatinine 0.72, Estim Creat Clear Calc 31.60, Est GFR (MDRD) Af Amer 100, Est GFR (MDRD) Non-Af 83, BUN/Creatinine Ratio 16.8, [id number], Calcium 8.9, Troponin I High Sens [address] 06/16/22 12:48 IMPRESSION: Chronic involutional changes of the brain. N.B. : The above Results were Read Back by Agapito Jimenez MD to Jesse Davis and understanding confirmed on 06/16/2022 13:10:16 (ET). Electronically Signed: Agapito Jimenez MD at 13:11 EST , ADDENDUM: 06/16/22 1318 IMPRESSION: Chronic involutional changes of the brain. N.B. : The above Results were Read Back by Agapito Jimenez MD to Jesse Davis and understanding confirmed on 06/16/2022 13:10:16 (ET). Electronically Signed: Agapito Jimenez MD at 13:11 EST , Head/Neck CTA 06/16/22 12:48 IMPRESSION: Calcific plaque formation at the origin of the right and left internal carotid arteries causing 50-69% narrowing. N.B. : The above Results were Read Back by Agapito Jimenez MD to Jesse Davis and understanding confirmed on 06/16/2022 13:29:51 (ET). Electronically Signed: Agapito Jimenez MD at 13:30 EST , ADDENDUM: 06/16/22 1337 IMPRESSION: Calcific plaque formation at the origin of the right and left internal carotid arteries causing 50-69% narrowing. N.B. : The above Results were Read Back by Agapito Jimenez MD to Jesse Davis and understanding confirmed on 06/16/2022 13:29:51 (ET). Electronically Signed: Agapito Jimenez MD at 13:30 EST , Chest X-Ray 06/16/22 13:15 IMPRESSION: Prior CABG. The lungs are clear. Electronically Signed: Agapito Jimenez MD at 13:46 EST , Assessment & Plan Assessment/Plan (1) Right arm weakness: PLAN: Plan 1. Right upper extremity weakness-etiology unclear at this point, patient will be placed in observation status on PCU, MRI of the brain will be obtained, neurochecks will be carried out, patient was placed on a baby aspirin a day, shewill remain on her statin. Patient has an allergy listed to statins-although she takes daily Lipitor at her assisted living facility. #2 slurred speech-resolved at this time-etiology unclear, again MRI will be obtained to rule out stroke #3 paroxysmal A. fib-patient is currently on Coumadin, INR slightly low-I gave the patient an extra dose of Coumadin today, INR be rechecked tomorrow #4 coronary artery disease-this appears stable at this time #5 essential hypertension-patient will remain on her current medications #6 hypercoagulable state secondary to paroxysmal A. fib-patient will remain on warfarin, INR will be rechecked Total clinical time spent by myself addressing the patient's medical issues, reviewing the patient's medical data, and collaborating with patient's care team: 55-minute Charges/Coding Visit Charges Inpatient E&M: 06746 Init Hosp L2 06/16/222042 <Electronically signed by Gonzalo Stephens DO> Cosigner Signature (if applicable): CC: Dr. Hortensia Unger MD; Dr. Gonzalo Stephens DO~ Signed [facility] Work Phone: 1(635) 673-583201-19-[address] Davis [facility] June 16, 2022 4:46pm Note Date/Time June 16, 2022 1 2:52pm [facility] Medical Records Department [address] [place] [address] Emergency Department Summary 06/16/22 MR#: [id number] Acct: [id number] Name: COLETTE RICHARDSON Rep #:[id number] : 1935 86 From: Jesse Davis DO PCP: Dr. Hortensia Unger MD Status:REG ER Location: ED HPI History of Present Illness Chief Complaint: Alt LOC Detail of Chief Complaint: Slurred speech, paresthesias right hand Informant: patient Narrative Narrative: Patient presents the emergency department with complaint of slurred speech this morning. Patient on Coumadin and apparently had a fall last evening where she lost her balance after picking up some cat litter and hit her head. No loss of consciousness. This morning she had meds at 914 and apparently was her normal self but soon after apparently may have developed some slurred speech. Patient herself is unsure what time that was. Daughter who is with her states that she thinks the nursing staff noted the slurred slurred speech around 11 AM. Patienton Coumadin for history of A. fib. Patient has had prior TIAs. Patient also states that she had some visual changes from the right eye where she had a hard time seeing from the periphery of the right eye but that is resolved currently as well. Patient still having some numbness and some mild weakness of the righthand. Prior similar symptoms: Yes PFSH PFSH Medical History Atherosclerotic heart disease of circle coronary artery without angina pectoris Atrial fibrillation with RVR (10/01/16) Bilateral breast cancer Depression Essential hypertension Frequent falls History of non-ST elevation myocardial infarction (NSTEMI) (10/01/16) History of pulmonary embolus (PE) Hypercoagulable state residential current use of anticoagulant Memory loss Nonrheumatic aortic (valve) stenosis Parkinsonian syndrome Paroxysmal atrial fibrillation Poor balance Postoperative atrial fibrillation (04/04/13) Recurrent deep vein thrombosis (DVT) Restrictive airway disease Rheumatoid arthritis Home Medications atorvastatin 40 mg tablet 40 mg PO QHS cholesterol 10/01/16 [History Last Taken 06/15/22 20:45] venlafaxine 75 mg tablet 75 mg PO QHS DEPRESSION 02/14/19 [History Last Taken 06/15/22 20:45] albuterol sulfate 90 mcg/actuation aerosol inhaler (Ventolin HFA) 2 puff inhalation Q6H PRN Wheezing 09/23/21 [History Last Taken Unknown] losartan 100 mg tablet 100 mg PO DAILY BP 09/23/21 [History Last Taken 06/16/22 09:15] trazodone 100 mg tablet 100 mg PO QHS Sleep 09/23/21 [History Last Taken 06/15/22 20:45] hydroxychloroquine 200 mg tablet 200 mg PO BID RA 11/02/21 [History Last Taken 06/16/22 09:15] venlafaxine 150 mg capsule,extended release 24 hr 150 mg PO BREAKFAST [id number]/22 [History Last Taken 06/16/22 09:15] alprazolam 0.25 mg tablet 0.25 mg PO QHS PRN PRN Anxiety/Restlessness/Sleep #0 tabs 11/10/21 [Rx Last Taken 06/15/22 11:30] potassium chloride 20 mEq tablet,extended release(part/cryst) (Klor-Con M) 20 meq PO DAILYCM 30 days #30 tabs 11/10/21 [Rx Last Taken 06/16/22 09:15] hydrochlorothiazide 25 mg tablet 25 mg PO DAILY 03/07/22 [History Last Taken 06/16/22 09:15] acetaminophen 325 mg tablet 650 mg PO Q6H PRN Pain 06/16/22 [History Last Taken 06/08/22 20:00] alprazolam 0.5 mg tablet 0.5 mg PO QHS DEPRESSION 06/16/22 [History Last Taken 06/15/22 20:45] metoprolol tartrate 100 mg tablet 100 mg PO BID HTN 06/16/22 [History Last Taken 06/16/22 09:15] warfarin 5 mg tablet 5 mg PO DINNER AFIB 06/16/22 [History Last Taken 06/15/22 16:45] Allergy/AdvReac Type Severity Reaction Status Date / Time Penicillins Allergy Anaphylaxis Verified 06/16/22 12:15 acetaminophen [From Vicodin] AdvReac Itching Verified 06/16/22 12:15 codeine AdvReac Nausea Verified 06/16/22 12:15 ezetimibe [From Zetia] AdvReac Itching Verified 06/16/22 12:15 hydrocodone bitartrate AdvReac Itching Verified 06/16/22 12:15 [From Vicodin] Wrguogb-FZH-CsC Reductase AdvReac Other Verified 06/16/22 12:15 Inhibitor [Bqpseny-Vvu-Btr Reductase Inhibitor] Surgical History 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) History of appendectomy History of cardioversion (10/01/16) History of coronary artery stent placement (12/2003) History of left heart catheterization (10/13/15) Social History household members: none Smoking Status: Former smoker how long ago did patient quit smokin, 1ppd second hand exposure: Yes alcohol intake: never substance use type: does not use ROS ROS ED Review of Systems ROS Unobtainable: other Constitutional Constitutional ED: Reports lethargy; Denies chills, fever(s), sweats or weight loss Eyes Eyes: Denies blurry vision, change in vision or diplopia ENT ENT ED: Denies rhinorrhea or sore throat Cardiovascular Cardiovascular: Denies chest pain, orthopnea or racing heartbeat Respiratory/Chest Respiratory/Chest: Denies cough, dyspnea, dyspnea on exertion, orthopnea or sputum Gastrointestinal Gastrointestinal: Denies abdominal pain, diarrhea, nausea or vomiting Genitourinary Genitourinary ED: Denies dysuria, hematuria or urinary frequency Musculoskeletal Musculoskeletal: Denies arthralgias, back pain, myalgias or neck pain Integumentary Denies abscess, Abrasions or rash Neurologic Neurologic: Reports headache(s), paresthesias, weakness and other Details: Speech difficulty that is now resolved, vision change now resolved Psychiatric Psychiatric: Denies anxiety, depression or suicidal thoughts Endocrine Endocrinology: Denies polydipsia, polyphagia or polyuria Hematologic/Lymphatic Hematologic/Lymphatic: Denies easy bleeding, easy bruising or lymphadenopathy Allergic/Immunologic Allergic/Immunologic ED: Denies mouth swelling, tongue swelling or urticaria EXAM Physical Exam Const Vital Signs: 06/16/22 12:16 06/16/22 12:48 06/16/22 12:48 Temperature 97.9 F Temperature Source Temporal Pulse Rate 61 65 Respiratory Rate 13 16 Blood Pressure 150/113 H 131/74 H Blood Pressure Mean 125 93 Pulse Ox 92 Oxygen Delivery Method Room Air Room Air Room Air Positive well nourished and well developed General Appearance ED: well developed and NAD HEENT Reports TM's clear and moist mucous membranes normocephalic and atraumatic; Negative for trauma or tenderness Tympanic Membrane ED: Yes TM's clear Eyes PERRL and EOMs intact bilaterally General Eye ED: Negative for pale conjunctiva or scleral icterus Neck no lymphadenopathy, supple and no JVD General: Negative for tenderness Chest Wall inspection of chest normal and palpation of chest normal Chest: Negative for tenderness Resp normal respiratory effort and clear to auscultation bilaterally Effort and Inspection: Negative for respiratory distress or pain with movement Auscultation: Negative for rhonchi, wheezes or diminished lung sounds Cardio regular rate, regular rhythm, S1 normal heart sound, S2 normal heart sound and no murmurs Peripheral Pulses: pulses 2+ throughout GI normal to inspection, nondistended, normoactive bowel sounds, soft to palpation,non-tender, non-distended and no masses Back/Spine no CVA tenderness and no thoracic nor lumbar tenderness Extremity normal to inspection General Extremety ED: Negative for edema General Extremity: Negative for edema Neuro oriented x3, CN's II-XII intact bilaterally, no sensory deficits noted and gait normal Neuro Narrative: Patient has no focal neurologic deficits noted. She does have some slightly decreased sensation to the right hand compared to left therefore I will give heran NIH stroke scale of 1. Sensorium / Orientation: awake, alert, oriented to person, oriented to place andoriented to time Motor Exam: strength 5/5 throughout and strength abnormal Psych mental status grossly normal Skin no rashes or lesions noted and no wounds MDM MDM MDM Narrative Medical decision making narrative: IV line established on arrival. 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 Stroke teamwas activated after my evaluation of the patient. Initially it was unclear exactly when the symptoms started but we were able to call the assisted living facility and note that around 9 AM she had her medications and at that time was normal. Patient also on Coumadin and not a thrombolytic candidate. Patient also with low NIH of 1. Speech difficulties resolved. Patient was evaluated bystroke neurologist and agreed that no tPA was indicated. Patient had a CT scan of the brain without contrast that showed chronic involutional changes. CTA of the head and neck showed some stenosis of the carotid arteries from 50 to 69% bilaterally. Stroke neurologist recommended admission for completing stroke work-up. Case will be discussed with hospitalist to evaluate patient for admission Lab Data Attestation: I reviewed the patient's lab results. Labs: Laboratory Results - last 24 hr 06/16/22 06/16/22 06/16/22 12:51 12:51 12:51 WBC 6.4 RBC 4.32 Hgb 13.1 Hct 39.5 MCV 91.4 MCH 30.3 MCHC 33.2 RDW Std Deviation 41.0 RDW Coeff of Lindy 12.3 Plt Count 233 MPV 10.1 Immature Gran % (Auto) 0.200 Neut % (Auto) 56.3 Lymph % (Auto) 30.6 [place] % (Auto) 8.2 Eos % (Auto) 3.9 Baso % (Auto) 0.8 Absolute Neuts (auto) 3.6 Absolute Lymphs (auto) 1.94 Nucleated RBC % 0 PT 21.0 H INR 1.9 APTT 30.2 Sodium 135 L Potassium 4.2 Chloride 99 Carbon Dioxide 32.0 Anion Gap 4 L BUN 12 Creatinine 0.72 Estim Creat Clear Calc 31.60 Est GFR (MDRD) Af Amer 100 Est GFR (MDRD) Non-Af 83 BUN/Creatinine Ratio 16.8 Glucose 98 Calcium 8.9 Troponin I High Sens 9 Radiography Diagnostic Testing: Clinical Impression(s) from Imaging Studies Brain CT 06/16/22 12:48 IMPRESSION: Chronic involutional changes of the brain. N.B. : The above Results were Read Back by Agapito Jimenez MD to Jesse Davis and understanding confirmed on 06/16/2022 13:10:16 (ET). Electronically Signed: Agapito Jimenez MD at 13:11 EST , ADDENDUM: 06/16/22 1318 IMPRESSION: Chronic involutional changes of the brain. N.B. : The above Results were Read Back by Agapito Jimenez MD to Jesse Davis and understanding confirmed on 06/16/2022 13:10:16 (ET). Electronically Signed: Agapito Jimenez MD at 13:11 EST , Head/Neck CTA 06/16/22 12:48 IMPRESSION: Calcific plaque formation at the origin of the right and left internal carotid arteries causing 50-69% narrowing. N.B. : The above Results were Read Back by Agapito Jimenez MD to Jesse Davis and understanding confirmed on 06/16/2022 13:29:51 (ET). Electronically Signed: Agapito Jimenez MD at 13:30 EST , ADDENDUM: 06/16/22 1337 IMPRESSION: Calcific plaque formation at the origin of the right and left internal carotid arteries causing 50-69% narrowing. N.B. : The above Results were Read Back by Agapito Jimenez MD to Jesse Davis and understanding confirmed on 06/16/2022 13:29:51 (ET). Electronically Signed: Agapito Jimenez MD at 13:30 EST , Chest X-Ray 06/16/22 13:15 IMPRESSION: Prior CABG. The lungs are clear. Electronically Signed: Agapito Jimenez MD at 13:46 EST , 1 view chest x-ray obtained interpreted by myself as no acute disease process without evidence of infiltrate or effusion or pneumothorax. Radiology in agreement. EKG Initial EKG: Attestation: I personally reviewed and interpreted this EKG as follows: Comments: Sinus rhythm with a rate of [address] changes and incomplete right bundle branch block Discharge Plan Dx/Rx/DC Orders Clinical Impression: Acute CVA (cerebrovascular accident), History of atrial fibrillation, History of hypertension, History of Parkinson's disease Disposition Disposition: Acute Care [facility] What to do if you have Problems For any increased pain, shortness of breath, bleeding, nausea or vomiting, chestpain, or any unexpected problems, contact your Primary Care Provider. Call [facility] ([phone]) or report to the closest Emergency Room. Call 911 if necessary. 06/16/22 1646 <Electronically signed by Jesse Davis DO> Cosigner Signature (if applicable): CC: Dr. Hortensia Unger MD ~ Signed [facility] Work Phone: 1(785) 508-742911-05-2013 Evaluation note* Diagnosis Onset Date Resolution Status Dyspnea on minimal exertion acute Essential hypertension acute Paroxysmal atrial fibrillation acute 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, 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 Heart failure with preserved ejection fraction [facility] Work Phone: [phone]) [phone] Evaluation note* Diagnosis Onset Date Resolution Status Dyspnea on minimal exertion acute Essential hypertension acute Paroxysmal atrial fibrillation acute 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, 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 Heart failure with preserved ejection fraction chronic Acute hyponatremia acute Acute metabolic encephalopathy acute Hypokalemia acute [facility] Work Phone: 1(305) 715-713211-05-2013 Evaluation note* Diagnosis Onset Date Resolution Status Dyspnea on minimal exertion acute Essential hypertension acute Paroxysmal atrial fibrillation acute 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, 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 Heart failure with preserved ejection fraction chronic Acute hyponatremia acute Acute metabolic encephalopathy acute Frequent falls acute Hypokalemia acute Memory loss acute Poor balance acute [facility] Work Phone: [phone] Evaluation note* Diagnosis Onset Date Resolution Status Dyspnea on minimal exertion acute Essential hypertension acute Paroxysmal atrial fibrillation acute 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, 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 Heart failure with preserved ejection fraction chronic Acute hyponatremia acute Acute metabolic encephalopathy acute Frequent falls acute Hypokalemia acute Memory loss acute Poor balance acute Acute hyponatremia acute Acute metabolic encephalopathy acute Atrial fibrillation acute Coronary artery disease acut e Debility acute Depression acute Edema acute Hyperlipidemia acute Hypokalemia acute Insomnia acute Restrictive lung disease acu te Hypertension [facility] Work Phone: [phone]) 900-698211-05-2013 Evaluation note* Diagnosis Onset Date Resolution Status Dyspnea on minimal exertion acute Essential hypertension acute Paroxysmal atrial fibrillation acute 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, 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 Heart failure with preserved ejection fraction chronic Acute hyponatremia resolved Acute metabolic encephalopathy resolved Hypokalemia resolved Atrial fibrillation acute Coronary artery disease acut e Debility acute Depression acute Edema acute Hyperlipidemia acute Insomnia acute Restrictive lung disease acu te Hypertension chronic Acute hyponatremia resolved Acute metabolic encephalopathy resolved Hypokalemia resolved [facility] Work Phone: Evaluation note* Diagnosis Onset Date Resolution Status Allergic rhinitis acute Atrial fibrillation acute Coronary artery disease acut e Debility acute Depression acute Edema acute Hyperlipidemia acute Insomnia acute Left hip pain acute Left rotator cuff tear arthropathy acute [facility] Work Phone: Evaluation note* Diagnosis Onset Date Resolution Status Hyperlipidemia acute Allergic rhinitis resolved Debility resolved Depression resolved Insomnia resolved Left hip pain resolved Left rotator cuff tear arthropathy resolved Dyspnea on minimal exertion acute Essential hypertension acute Paroxysmal atrial fibrillation acute 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, 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 Heart failure with preserved ejection fraction chronic [facility] Work Phone: Evaluation note* Diagnosis Onset Date Resolution Status Acute hyponatremia resolved Acute metabolic encephalopathy resolved Hypokalemia resolved Atrial fibrillation acute Coronary artery disease acut e Debility acute Depression acute Edema acute Hyperlipidemia acute Insomnia acute Restrictive lung disease acu te Hypertension chronic Acute hyponatremia resolved Acute metabolic encephalopathy resolved Hypokalemia resolved [facility] Work Phone: Evaluation noteNo assessment information available [facility] Work Phone: Evaluation note* Diagnosis Onset Date Resolution Status Acute CVA (cerebrovascular accident) acute History of atrial fibrillation acute History of hypertension acut e History of Parkinson's disease acute [facility] Work Phone: Evaluation note* Diagnosis Onset Date Resolution Status Acute CVA (cerebrovascular accident) acute History of atrial fibrillation acute History of hypertension acut e History of Parkinson's disease acute Right arm weakness acute [facility] Work Phone: Evaluation note* Diagnosis Onset Date Resolution Status History of atrial fibrillation acute History of hypertension acut e History of Parkinson's disease acute Acute CVA (cerebrovascular accident) resolved Right arm weakness resolved [facility] Work Phone: Evaluation note* Diagnosis Onset Date Resolution Status Abnormality of gait and mobility acute History of stroke acute Parkinsonism acute Polyneuropathy acute Dementia chronic [facility] Work Phone[facility]: Reason for referral (narrative)No reason for referral information available[facility] Work [facility]: Summary Purpose Family History No Family History Records Found Relationship Condition Age at Onset Recorded Date/T keyanna Unknown Family History?No pertinent history Unkno wn October 02, 2016 7:42am Family History?No pertinent history Unkno wn October 02, 2016 7:42am Relationship Condition Age at Onset Recorded Date/T keyanna Unknown Family History?No pertinent history Unkno wn October 02, 2016 6:42am Family History?No pertinent history Unkno wn October 02, 2016 6:42am Advance Directives No Advanced Directives Records Found Advance Directive Response Recorded Date/ Time Name of Medical Power of Air Tube Releaser pool over[place] son June 17, 2021 1:59pm Living Will Yes June 21 12:54pm Power of Air Tube Releaser Yes June 21, 2021 12:54pm Advance Directive Response Recorded Date/ Time Living Will Yes June 21 12:54pm Power of Air Tube Releaser Yes June 21, 2021 12:54pm Advance Directive Response Recorded Date/ Time Living Will Yes November 02, 2021 3 :59pm Power of Air Tube Releaser Yes November 02, 2021 3:59pm Advance Directive Response Recorded Date/ Time Name of Medical Power of Air Tube Releaser DAUGHTER, KRISTIN GRIER November 02, 2021 3:59pm Name of Medical Power of Air Tube Releaser Pool [place] son November 05, 2021 2:10pm Living Will Yes November 05, 2021 2:10pm Power of Air Tube Releaser Yes November 05 2:10pm Advance Directive Response Recorded Date/ Time Living Will No March 07 3:07pm Power of Air Tube Releaser No March 07, 2022 3:07pm Advance Directive Response Recorded Date/ Time Living Will No March 07 2:07pm Power of Air Tube Releaser No March 07, 2022 2:07pm Advance Directive Response Recorded Date/ Time Name of Medical Power of Air Tube Releaser [place] son June 16, 2022 6:12pm Living Will Yes June 16 6:12pm Power of Air Tube Releaser Yes Lorri 19th, 2023 6:12pm Advance Directive Response Recorded Date/ Time Name of Medical Power of Air Tube Releaser [place] son June 16, 2022 7:12pm Living Will Yes June 16 7:12pm Power of Air Tube Releaser Yes June 16, 2022 7:12pm Advance Directive Response Recorded Date/ Time Living Will Yes June 16 7:12pm Power of Air Tube Releaser Yes June 16, 2022 7:12pm Advance Directive Response Recorded Date/ Time Living Will Yes June 16 6:12pm Power of Air Tube Releaser Yes June 16, 2022 6:12pm Advance Directive Response Recorded Date/ Time Do you have a Healthcare Power of Air Tube Releaser? No October 09, 2024 7:14pm Chief Complaint and Reason for Visit Chief Complaint HOME DRAW LAB WORK HOME DRAW LABWORK FALL AND PAIN OVER SHOULDER INABILITY TO AMBULATE INABILITY TO AMBULATE DEBILITY/FALLS HOMEDRAW LABWORK HOME DRAW LAB WORK HOMEDRAW LABWORK Reason for Visit Allergic rhinitis Atrial fibrillation Coronary artery disease Debility Depression Edema Hyperlipidemia Insomnia Left hip pain Left rotator cuff tear arthropathy Chief Complaint HOME DRAW LAB WORK HOME DRAW LABWORK FALL AND PAIN OVER SHOULDER INABILITY TO AMBULATE INABILITY TO AMBULATE DEBILITY/FALLS HOMEDRAW LABWORK HOME DRAW LAB WORK HOMEDRAW LABWORK HOMEDRAW LABWORK Reason for Visit Allergic rhinitis Atrial fibrillation Coronary artery disease Debility Depression Edema Hyperlipidemia Insomnia Left hip pain Left rotator cuff tear arthropathy Chief Complaint HOME DRAW LABWORK FALL AND PAIN OVER SHOULDER INABILITY TO AMBULATE INABILITY TO AMBULATE DEBILITY/FALLS HOMEDRAW LABWORK HOME DRAW LAB WORK HOMEDRAW LABWORK HOMEDRAW LABWORK HOMEDRAW LABWORK Reason for Visit Allergic rhinitis Atrial fibrillation Coronary artery disease Debility Depression Edema Hyperlipidemia Insomnia Left hip pain Left rotator cuff tear arthropathy Chief Complaint HOME DRAW LABWORK FALL AND PAIN OVER SHOULDER INABILITY TO AMBULATE INABILITY TO AMBULATE DEBILITY/FALLS HOMEDRAW LABWORK HOME DRAW LAB WORK HOMEDRAW LABWORK HOMEDRAW LABWORK HOMEDRAW LABWORK AFIB/BP ISSUES Reason for Visit Hyperlipidemia Allergic rhinitis Debility Depression Insomnia Left hip pain Left rotator cuff tear arthropathy Dyspnea on minimal exertion Essential hypertension Paroxysmal atrial fibrillation H/O coronary artery bypass surgery Heart failure with preserved ejection fraction Chief Complaint DEBILITY/FALLS HOMEDRAW LABWORK HOME DRAW LAB WORK HOMEDRAW LABWORK HOMEDRAW LABWORK HOMEDRAW LABWORK AFIB/BP ISSUES HOME DRAW LAB WORK HOMEDRAW LABWORK Reason for Visit Hyperlipidemia Allergic rhinitis Debility Depression Insomnia Left hip pain Left rotator cuff tear arthropathy Dyspnea on minimal exertion Essential hypertension Paroxysmal atrial fibrillation H/O coronary artery bypass surgery Heart failure with preserved ejection fraction Chief Complaint HOMEDRAW LABWORK HOME DRAW LAB WORK HOMEDRAW LABWORK HOMEDRAW LABWORK HOMEDRAW LABWORK AFIB/BP ISSUES HOME DRAW LAB WORK HOMEDRAW LABWORK HOMEDRAW LABWORK Reason for Visit Dyspnea on minimal e xertion Essential hypertension Paroxysmal atrial fibrillation H/O coronary artery bypass surgery Heart failure with preserved ejection fraction Chief Complaint HOMEDRAW LABWORK HOME DRAW LAB WORK HOMEDRAW LABWORK HOMEDRAW LABWORK HOMEDRAW LABWORK AFIB/BP ISSUES HOME DRAW LAB WORK HOMEDRAW LABWORK HOMEDRAW LABWORK ACUTE MATABOLIC ENCEPHALOPATHY, HYPONATREMIA Reason for Visit Dyspnea on minimal e xertion Essential hypertension Paroxysmal atrial fibrillation H/O coronary artery bypass surgery Heart failure with preserved ejection fraction Acute hyponatremia Acute metabolic encephalopathy Hypokalemia Chief Complaint HOMEDRAW LABWORK HOME DRAW LAB WORK HOMEDRAW LABWORK HOMEDRAW LABWORK HOMEDRAW LABWORK AFIB/BP ISSUES HOME DRAW LAB WORK HOMEDRAW LABWORK HOMEDRAW LABWORK ACUTE MATABOLIC ENCEPHALOPATHY, HYPONATREMIA ACUTE MATABOLIC ENCEPHALOPATHY, HYPONATREMIA ACUTE MATABOLIC ENCEPHALOPATHY, HYPONATREMIA Reason for Visit Dyspnea on minimal e xertion Essential hypertension Paroxysmal atrial fibrillation H/O coronary artery bypass surgery Heart failure with preserved ejection fraction Acute hyponatremia Acute metabolic encephalopathy Frequent falls Hypokalemia Memory loss Poor balance Chief Complaint HOMEDRAW LABWORK HOME DRAW LAB WORK HOMEDRAW LABWORK HOMEDRAW LABWORK HOMEDRAW LABWORK AFIB/BP ISSUES HOME DRAW LAB WORK HOMEDRAW LABWORK HOMEDRAW LABWORK ACUTE MATABOLIC ENCEPHALOPATHY, HYPONATREMIA ACUTE MATABOLIC ENCEPHALOPATHY, HYPONATREMIA ACUTE MATABOLIC ENCEPHALOPATHY, HYPONATREMIA HYPONATREMIA, METABOLIC ENCEPHALOPATHY, FREQ FALLS Reason for Visit Dyspnea on minimal e xertion Essential hypertension Paroxysmal atrial fibrillation H/O coronary artery bypass surgery Heart failure with preserved ejection fraction Acute hyponatremia Acute metabolic encephalopathy Frequent falls Hypokalemia Memory loss Poor balance Acute hyponatremia Acute metabolic encephalopathy Atrial fibrillation Coronary artery disease Debility Depression Edema Hyperlipidemia Hypokalemia Insomnia Restrictive lung disease Hypertension Chief Complaint HOME DRAW LAB WORK HOMEDRAW LABWORK HOMEDRAW LABWORK HOMEDRAW LABWORK AFIB/BP ISSUES HOME DRAW LAB WORK HOMEDRAW LABWORK HOMEDRAW LABWORK ACUTE MATABOLIC ENCEPHALOPATHY, HYPONATREMIA ACUTE MATABOLIC ENCEPHALOPATHY, HYPONATREMIA ACUTE MATABOLIC ENCEPHALOPATHY, HYPONATREMIA HYPONATREMIA, METABOLIC ENCEPHALOPATHY, FREQ FALLS Reason for Visit Dyspnea on minimal e xertion Essential hypertension Paroxysmal atrial fibrillation H/O coronary artery bypass surgery Heart failure with preserved ejection fraction Acute hyponatremia Acute metabolic encephalopathy Hypokalemia Atrial fibrillation Coronary artery disease Debility Depression Edema Hyperlipidemia Insomnia Restrictive lung disease Hypertension Acute hyponatremia Acute metabolic encephalopathy Hypokalemia Chief Complaint HOME DRAW LAB WORK HOMEDRAW LABWORK HOMEDRAW LABWORK HOMEDRAW LABWORK AFIB/BP ISSUES HOME DRAW LAB WORK HOMEDRAW LABWORK HOMEDRAW LABWORK ACUTE MATABOLIC ENCEPHALOPATHY, HYPONATREMIA ACUTE MATABOLIC ENCEPHALOPATHY, HYPONATREMIA ACUTE MATABOLIC ENCEPHALOPATHY, HYPONATREMIA HYPONATREMIA, METABOLIC ENCEPHALOPATHY, FREQ FALLS RESIDENTIAL LABWORK Reason for Visit Dyspnea on minimal e xertion Essential hypertension Paroxysmal atrial fibrillation H/O coronary artery bypass surgery Heart failure with preserved ejection fraction Acute hyponatremia Acute metabolic encephalopathy Hypokalemia Atrial fibrillation Coronary artery disease Debility Depression Edema Hyperlipidemia Insomnia Restrictive lung disease Hypertension Acute hyponatremia Acute metabolic encephalopathy Hypokalemia Chief Complaint AFIB/BP ISSUES HOME DRAW LAB WORK HOMEDRAW LABWORK HOMEDRAW LABWORK ACUTE MATABOLIC ENCEPHALOPATHY, HYPONATREMIA ACUTE MATABOLIC ENCEPHALOPATHY, HYPONATREMIA ACUTE MATABOLIC ENCEPHALOPATHY, HYPONATREMIA HYPONATREMIA, METABOLIC ENCEPHALOPATHY, FREQ FALLS RESIDENTIAL LABWORK RESIDENTIAL LABWORK RESIDENTIAL LAB WORK RESIDENTIAL LAB WORK RESIDENTIAL LABWORK RESIDENTIAL LABWORK RESIDENTIAL LABWORK RESIDENTIAL LAB WORK Reason for Visit Dyspnea on minimal e xertion Essential hypertension Paroxysmal atrial fibrillation H/O coronary artery bypass surgery Heart failure with preserved ejection fraction Acute hyponatremia Acute metabolic encephalopathy Hypokalemia Atrial fibrillation Coronary artery disease Debility Depression Edema Hyperlipidemia Insomnia Restrictive lung disease Hypertension Acute hyponatremia Acute metabolic encephalopathy Hypokalemia Chief Complaint HOMEDRAW LABWORK ACUTE MATABOLIC ENCEPHALOPATHY, HYPONATREMIA ACUTE MATABOLIC ENCEPHALOPATHY, HYPONATREMIA ACUTE MATABOLIC ENCEPHALOPATHY, HYPONATREMIA HYPONATREMIA, METABOLIC ENCEPHALOPATHY, FREQ FALLS RESIDENTIAL LABWORK RESIDENTIAL LABWORK RESIDENTIAL LAB WORK RESIDENTIAL LAB WORK RESIDENTIAL LABWORK RESIDENTIAL LABWORK RESIDENTIAL LABWORK RESIDENTIAL LAB WORK RESIDENTIAL LAB WORK Reason for Visit Acute hyponatremia Acute metabolic encephalopathy Hypokalemia Atrial fibrillation Coronary artery disease Debility Depression Edema Hyperlipidemia Insomnia Restrictive lung disease Hypertension Acute hyponatremia Acute metabolic encephalopathy Hypokalemia Chief Complaint RESIDENTIAL LABWORK RESIDENTIAL LABWORK RESIDENTIAL LAB WORK RESIDENTIAL LAB WORK RESIDENTIAL LABWORK RESIDENTIAL LABWORK RESIDENTIAL LABWORK RESIDENTIAL LAB WORK RESIDENTIAL LAB WORK RESIDENTIAL LAB WORK SOB Chief Complaint RESIDENTIAL LABWORK RESIDENTIAL LABWORK RESIDENTIAL LAB WORK RESIDENTIAL LAB WORK RESIDENTIAL LABWORK RESIDENTIAL LABWORK RESIDENTIAL LABWORK RESIDENTIAL LAB WORK RESIDENTIAL LAB WORK RESIDENTIAL LAB WORK SOB RESIDENTIAL LABWORK Chief Complaint RESIDENTIAL LAB WOR K RESIDENTIAL LAB WORK RESIDENTIAL LABWORK RESIDENTIAL LABWORK RESIDENTIAL LABWORK RESIDENTIAL LAB WORK RESIDENTIAL LAB WORK RESIDENTIAL LAB WORK SOB RESIDENTIAL LABWORK RESIDENTIAL LAB WORK Chief Complaint RESIDENTIAL LABWORK RESIDENTIAL LABWORK RESIDENTIAL LABWORK RESIDENTIAL LAB WORK RESIDENTIAL LAB WORK RESIDENTIAL LAB WORK SOB RESIDENTIAL LABWORK RESIDENTIAL LAB WORK RESIDENTIAL LABWORK Chief Complaint RESIDENTIAL LABWORK RESIDENTIAL LAB WORK RESIDENTIAL LAB WORK RESIDENTIAL LAB WORK SOB RESIDENTIAL LABWORK RESIDENTIAL LAB WORK RESIDENTIAL LAB WORK RESIDENTIAL LABWORK Chief Complaint RESIDENTIAL LAB WOR K SOB RESIDENTIAL LABWORK RESIDENTIAL LAB WORK RESIDENTIAL LAB WORK RESIDENTIAL LABWORK RESIDENTIAL LAB WORK RESIDENTIAL LABWORK Chief Complaint RESIDENTIAL LAB WOR K SOB RESIDENTIAL LABWORK RESIDENTIAL LAB WORK RESIDENTIAL LAB WORK RESIDENTIAL LABWORK RESIDENTIAL LAB WORK RESIDENTIAL LABWORK RIGHT UPPER EXTREMITY WEAKNESS, SLURRED SPEECH Reason for Visit Acute CVA (cerebrova scular accident) History of atrial fibrillation History of hypertension History of Parkinson's disease Chief Complaint RESIDENTIAL LAB WOR K SOB RESIDENTIAL LABWORK RESIDENTIAL LAB WORK RESIDENTIAL LAB WORK RESIDENTIAL LABWORK RESIDENTIAL LAB WORK RESIDENTIAL LABWORK RIGHT UPPER EXTREMITY WEAKNESS, SLURRED SPEECH RIGHT UPPER EXTREMITY WEAKNESS, SLURRED SPEECH Reason for Visit Acute CVA (cerebrova scular accident) History of atrial fibrillation History of hypertension History of Parkinson's disease Right arm weakness Chief Complaint RESIDENTIAL LABWORK RESIDENTIAL LAB WORK RESIDENTIAL LABWORK RIGHT UPPER EXTREMITY WEAKNESS, SLURRED SPEECH RIGHT UPPER EXTREMITY WEAKNESS, SLURRED SPEECH RIGHT UPPER EXTREMITY WEAKNESS, SLURRED SPEECH RESIDENTIAL LABWORK LABWORK RESIDENTIAL LABWORK Reason for Visit History of atrial fi brillation History of hypertension History of Parkinson's disease Acute CVA (cerebrovascular accident) Right arm weakness Chief Complaint RESIDENTIAL LABWORK RIGHT UPPER EXTREMITY WEAKNESS, SLURRED SPEECH RIGHT UPPER EXTREMITY WEAKNESS, SLURRED SPEECH RIGHT UPPER EXTREMITY WEAKNESS, SLURRED SPEECH RESIDENTIAL LABWORK LABWORK RESIDENTIAL LABWORK LABWORK LABWORK Reason for Visit History of atrial fi brillation History of hypertension History of Parkinson's disease Acute CVA (cerebrovascular accident) Right arm weakness Chief Complaint RESIDENTIAL LABWORK RIGHT UPPER EXTREMITY WEAKNESS, SLURRED SPEECH RIGHT UPPER EXTREMITY WEAKNESS, SLURRED SPEECH RIGHT UPPER EXTREMITY WEAKNESS, SLURRED SPEECH RESIDENTIAL LABWORK LABWORK RESIDENTIAL LABWORK LABWORK LABWORK RESIDENTIAL LAB WORK LABWORK Reason for Visit History of atrial fi brillation History of hypertension History of Parkinson's disease Acute CVA (cerebrovascular accident) Right arm weakness Chief Complaint RESIDENTIAL LABWORK RIGHT UPPER EXTREMITY WEAKNESS, SLURRED SPEECH RIGHT UPPER EXTREMITY WEAKNESS, SLURRED SPEECH RIGHT UPPER EXTREMITY WEAKNESS, SLURRED SPEECH RESIDENTIAL LABWORK LABWORK RESIDENTIAL LABWORK LABWORK LABWORK RESIDENTIAL LABWORK RESIDENTIAL LAB WORK LABWORK Reason for Visit History of atrial fi brillation History of hypertension History of Parkinson's disease Acute CVA (cerebrovascular accident) Right arm weakness Chief Complaint RIGHT UPPER EXTREMIT Y WEAKNESS, SLURRED SPEECH RIGHT UPPER EXTREMITY WEAKNESS, SLURRED SPEECH RIGHT UPPER EXTREMITY WEAKNESS, SLURRED SPEECH RESIDENTIAL LABWORK LABWORK RESIDENTIAL LABWORK LABWORK LABWORK RESIDENTIAL LABWORK RESIDENTIAL LAB WORK LABWORK LABWORK Reason for Visit History of atrial fi brillation History of hypertension History of Parkinson's disease Acute CVA (cerebrovascular accident) Right arm weakness Chief Complaint RIGHT UPPER EXTREMIT Y WEAKNESS, SLURRED SPEECH RIGHT UPPER EXTREMITY WEAKNESS, SLURRED SPEECH RIGHT UPPER EXTREMITY WEAKNESS, SLURRED SPEECH RESIDENTIAL LABWORK LABWORK RESIDENTIAL LABWORK LABWORK LABWORK RESIDENTIAL LABWORK RESIDENTIAL LAB WORK RESIDENTIAL LAB WORK LABWORK LABWORK Reason for Visit History of atrial fi brillation History of hypertension History of Parkinson's disease Acute CVA (cerebrovascular accident) Right arm weakness Chief Complaint RESIDENTIAL LABWORK LABWORK LABWORK RESIDENTIAL LABWORK RESIDENTIAL LAB WORK RESIDENTIAL LAB WORK LABWORK LABWORK LABWORK RESIDENTIAL LAB WORK Chief Complaint RESIDENTIAL LABWORK RESIDENTIAL LAB WORK RESIDENTIAL LAB WORK LABWORK LABWORK LABWORK RESIDENTIAL LAB WORK RESIDENTIAL LAB WORK RESIDENTIAL LAB WORK Chief Complaint LABWORK LABWORK RESIDENTIAL LAB WORK RESIDENTIAL LAB WORK RESIDENTIAL LAB WORK RESIDENTIAL LABWORK TROUBLE WALKING, UNSTEADY n/v Reason for Visit Abnormality of gait and mobility History of stroke Parkinsonism Polyneuropathy Dementia Chief Complaint RESIDENTIAL LAB WOR K RESIDENTIAL LAB WORK RESIDENTIAL LAB WORK RESIDENTIAL LABWORK TROUBLE WALKING, UNSTEADY n/v RESIDENTIAL LABWORK Reason for Visit Abnormality of gait and mobility History of stroke Parkinsonism Polyneuropathy Dementia Chief Complaint RESIDENTIAL LAB WOR K RESIDENTIAL LAB WORK RESIDENTIAL LAB WORK RESIDENTIAL LABWORK TROUBLE WALKING, UNSTEADY n/v RESIDENTIAL LABWORK RESIDENTIAL LAB WORK RESIDENTIAL LAB WORK Reason for Visit Abnormality of gait and mobility History of stroke Parkinsonism Polyneuropathy Dementia Chief Complaint RESIDENTIAL LABWORK TROUBLE WALKING, UNSTEADY n/v RESIDENTIAL LABWORK RESIDENTIAL LAB WORK RESIDENTIAL LAB WORK RESIDENTIAL LABWORK RESIDENTIAL LABWORK Reason for Visit Abnormality of gait and mobility History of stroke Parkinsonism Polyneuropathy Dementia Chief Complaint n/v RESIDENTIAL LABWORK RESIDENTIAL LAB WORK RESIDENTIAL LAB WORK RESIDENTIAL LABWORK RESIDENTIAL LABWORK RESIDENTIAL LAB WORK Chief Complaint n/v RESIDENTIAL LABWORK RESIDENTIAL LAB WORK RESIDENTIAL LAB WORK RESIDENTIAL LABWORK RESIDENTIAL LABWORK RESIDENTIAL LAB WORK RESIDENTIAL LABWORK Chief Complaint n/v RESIDENTIAL LABWORK RESIDENTIAL LAB WORK RESIDENTIAL LAB WORK RESIDENTIAL LABWORK RESIDENTIAL LABWORK RESIDENTIAL LAB WORK RESIDENTIAL LABWORK RESIDENTIAL LAB WORK Chief Complaint RESIDENTIAL LABWORK RESIDENTIAL LABWORK RESIDENTIAL LAB WORK RESIDENTIAL LABWORK RESIDENTIAL LAB WORK RESIDENTIAL LAB WORK RESIDENTIAL LAB WORK Chief Complaint RESIDENTIAL LABWORK RESIDENTIAL LAB WORK RESIDENTIAL LABWORK RESIDENTIAL LAB WORK RESIDENTIAL LAB WORK RESIDENTIAL LAB WORK LABWORK Chief Complaint RESIDENTIAL LABWORK RESIDENTIAL LAB WORK RESIDENTIAL LABWORK RESIDENTIAL LAB WORK RESIDENTIAL LAB WORK RESIDENTIAL LAB WORK LABWORK RESIDENTIAL LAB WORK Chief Complaint RESIDENTIAL LAB WOR K RESIDENTIAL LABWORK RESIDENTIAL LAB WORK RESIDENTIAL LAB WORK RESIDENTIAL LAB WORK LABWORK RESIDENTIAL LAB WORK RESIDENTIAL LAB WORK Chief Complaint RESIDENTIAL LAB WOR K RESIDENTIAL LABWORK RESIDENTIAL LAB WORK RESIDENTIAL LAB WORK RESIDENTIAL LAB WORK LABWORK RESIDENTIAL LAB WORK RESIDENTIAL LAB WORK LABWORK Chief Complaint RESIDENTIAL LABWORK RESIDENTIAL LAB WORK RESIDENTIAL LAB WORK RESIDENTIAL LAB WORK LABWORK RESIDENTIAL LAB WORK RESIDENTIAL LAB WORK LABWORK RESIDENTIAL LAB WORK Chief Complaint Admit Date RESIDENTIAL LAB WORK April 04, 2024 5:00am LABWORK June 16, 2024 1 1:03am LABWORK June 17, 2024 5 :00am RESIDENTIAL LAB WORK July 01, 2024 5:00am RESIDENTIAL LAB WORK July 02, 2024 5:00am LABWORK July 03, 2024 5 :00am LABWORK July 05, 2024 5 :00am RESIDENTIAL LAB WORK July 08 5:00am LABWORK July 12, 2024 5:00am RESIDENTIAL LAB WORK July 17 5:00am LABWORK 2024 5:00am RESIDENTIAL LAB WORK July 25 4:00am Chief Complaint Admit Date LABWORK June 16, 2024 1 1:03am LABWORK June 17, 2024 5 :00am RESIDENTIAL LAB WORK July 01, 2024 5:00am RESIDENTIAL LAB WORK July 02, 2024 5:00am LABWORK July 03, 2024 5 :00am LABWORK July 04, 2024 5 :00am LABWORK July 05, 2024 5 :00am RESIDENTIAL LAB WORK July 08 5:00am RESIDENTIAL LAB WORK July 09 5:00am LABWORK July 12, 2024 5:00am RESIDENTIAL LAB WORK July 15 5:00am LABWORK July 16, 2024 5:00am RESIDENTIAL LAB WORK July 17 5:00am LABWORK July 18, 2024 5:00am LABWORK 2024 5:00am RESIDENTIAL LAB WORK July 24 5:00am RESIDENTIAL LAB WORK July 25 4:00am LABWORK July 29, 2024 5:00 am RESIDENTIAL LAB WORK August 12, 2024 4 :00am Chief Complaint Admit Date LABWORK June 16, 2024 1 1:03am LABWORK June 17, 2024 5 :00am RESIDENTIAL LAB WORK July 01, 2024 5:00am RESIDENTIAL LAB WORK July 02, 2024 5:00am LABWORK July 03, 2024 5 :00am LABWORK July 04, 2024 5 :00am LABWORK July 05, 2024 5 :00am RESIDENTIAL LAB WORK July 08 5:00am RESIDENTIAL LAB WORK July 09 5:00am LABWORK July 12, 2024 5:00am RESIDENTIAL LAB WORK July 15 5:00am LABWORK July 16, 2024 5:00am RESIDENTIAL LAB WORK July 17 5:00am LABWORK July 18, 2024 5:00am LABWORK 2024 5:00am RESIDENTIAL LAB WORK July 24 5:00am RESIDENTIAL LAB WORK July 25 4:00am LABWORK July 29, 2024 5:00 am RESIDENTIAL LAB WORK August 12, 2024 4 :00am RESIDENTIAL LAB WORK September 09, 2024 4 :00am Chief Complaint Admit Date LABWORK June 16, 2024 1 1:03am LABWORK June 17, 2024 5 :00am RESIDENTIAL LAB WORK July 01, 2024 5:00am RESIDENTIAL LAB WORK July 02, 2024 5:00am LABWORK July 03, 2024 5 :00am LABWORK July 04, 2024 5 :00am LABWORK July 05, 2024 5 :00am RESIDENTIAL LAB WORK July 08 5:00am RESIDENTIAL LAB WORK July 09 5:00am LABWORK July 12, 2024 5:00am RESIDENTIAL LAB WORK July 15 5:00am LABWORK July 16, 2024 5:00am RESIDENTIAL LAB WORK July 17 5:00am LABWORK July 18, 2024 5:00am LABWORK 2024 5:00am RESIDENTIAL LAB WORK July 24 5:00am RESIDENTIAL LAB WORK July 25 4:00am LABWORK July 29, 2024 5:00 am RESIDENTIAL LAB WORK August 12, 2024 4 :00am RESIDENTIAL LAB WORK September 09, 2024 4 :00am fall, head injury October 09, 2024 7:00p m Chief Complaint Admit Date RESIDENTIAL LAB WORK July 01, 2024 5:00am RESIDENTIAL LAB WORK July 02, 2024 5:00am LABWORK July 03, 2024 5 :00am LABWORK July 04, 2024 5 :00am LABWORK July 05, 2024 5 :00am RESIDENTIAL LAB WORK July 08 5:00am RESIDENTIAL LAB WORK July 09 5:00am LABWORK July 12, 2024 5:00am RESIDENTIAL LAB WORK July 15 5:00am LABWORK July 16, 2024 5:00am RESIDENTIAL LAB WORK July 17 5:00am LABWORK July 18, 2024 5:00am LABWORK 2024 5:00am RESIDENTIAL LAB WORK July 24 5:00am RESIDENTIAL LAB WORK July 25 4:00am LABWORK July 29, 2024 5:00 am RESIDENTIAL LAB WORK August 12, 2024 4 :00am RESIDENTIAL LAB WORK September 09, 2024 4 :00am fall, head injury October 09, 2024 7:00p m RESIDENTIAL LAB WORK October 22, 2024 4:0 0am Additional Source Comments INFORMATION SOURCE (unrecogn ized section and content) DATE CREATED AUTHOR 11/16/2017 [facility] DATE CREATED AUTHOR AUTHOR'S ORGANIZ ATION 11/17/2017 [facility] DATE CREATED AUTHOR AUTHOR'S ORGANIZ ATION 04/23/2019 [facility] ([place]) DATE CREATED AUTHOR AUTHOR'S ORGANIZ ATION 10/27/2024 [facility] Goals (unrecognized section and content) Goals may be documented in a n alternate sectionGoals may be documented in an alternate sectionGoals may be documented in an alternate sectionGoals may be documented in an alternate sectionGoals may be documented in an alternate sectionGoals may be documented in an alternate sectionGoals may be documented in an alternate sectionGoals may be documented in an alternate sectionGoals may be documented in an alternate sectionGoals may be documented in an alternate sectionGoals may be documented in an alternate sectionGoals may be documented in an alternate sectionGoals may be documented in an alternate sectionGoals may be documented in an alternate sectionGoals may be documented in an alternate sectionGoals may be documented in an alternate sectionGoals may be documented in an alternate sectionGoals may be documented in an alternate sectionGoals may be documented in an alternate sectionGoals may be documented in an alternate sectionGoals may be documented in an alternate sectionGoals may be documented in an alternate sectionGoals may be documented in an alternate sectionGoals may be documented in an alternate sectionGoals may be documented in an alternate sectionGoals may be documented in an alternate sectionGoals may be documented in an alternate sectionGoals may be documented in an alternate sectionGoals may be documented in an alternate sectionGoals may be documented in an alternate sectionGoals may be documented in an alternate sectionGoals may be documented in an alternate sectionGoals may be documented in an alternate sectionGoals may be documented in an alternate sectionGoals may be documented in an alternate sectionGoals may be documented in an alternate sectionGoals may be documented in an alternate sectionGoals may be documented in an alternate sectionGoals may be documented in an alternate sectionGoals may be documented in an alternate sectionGoals may be documented in an alternate sectionGoals may be documented in an alternate sectionGoals may be documented in an alternate sectionGoals may be documented in an alternate sectionGoals may be documented in an alternate sectionGoals may be documented in an alternate sectionGoals may be documented in an alternate sectionGoals may be documented in an alternate sectionGoals may be documented in an alternate section Care Teams (unrecognized sec tion and content) Team Status: Active Member Role Status Dates Dr. Joao Simon MD Family Provider Active Dr. Hortensia Unger MD Primary Care Provider Active Team Status: Inactive Member Role Status Dates Dr. Joao Simon MD Primary Care Provider Active Hortensia Unger MD Attending Provider, Referring Provi pankaj Active Team Status: Inactive Member Role Status Dates Dr. Joao Simon MD Primary Care Provider Active Dr. Joyce Rios MD Attending Provider, Emergency Provider Active Team Status: Inactive Member Role Status Dates Dr. Joao Simon MD Primary Care Provider Active Hortensia Unger MD Attending Provider Active Team Status: Active Member Role Status Dates Dr. Hortensia Unger MD Primary Care Provider Active Dr. Jesse Davis DO Emergency Provider Active Dr. Gonzalo Stephens DO Admit Provider, Attending Pro vider Active Team Status: Active Member Role Status Dates Dr. Hortensia Unger MD Primary Care Provider Active Dr. Jesse Davis DO Emergency Provider Active Dr. Gonzalo Stephens DO Admit Provider, Attending Provider, Other Provider Active Team Status: Inactive Member Role Status Dates Dr. Hortensia Unger MD Primary Care Provider Active Dr. Jesse Davis DO Emergency Provider Active Dr. Gonzalo Stephens DO Admit Provider, Other Provide r Active Dr. Jesenia Lopez MD Attending Provider Active Team Status: Active Member Role Status Dates Dr. Hortensia Unger MD Primary Care Provider Active Dr. Jesse Davis DO Emergency Provider Active Dr. Gonzalo Stephens DO Admit Provider, Other Provide r Active Dr. Jesenia Lopez MD Attending Provider, Other Provider Active Team Status: Inactive Member Role Status Dates Dr. Hortensia Unger MD Primary Care Provider Active Hortensia Unger MD Attending Provider Active Team Status: Inactive Member Role Status Dates Dr. Joao Simon MD Primary Care Provider Active Hortensia TOHMAS MD Attending Provider Active Team Status: Inactive Member Role Status Dates Dr. Hortensia Unger MD Primary Care Provider Active Hortensia THOMAS MD Attending Provider Active Team Status: Active Member Role Status Dates Dr. Hortensia Unger MD Primary Care Provider Active Joao THOMAS Attending Provider Active Team Status: Inactive Member Role Status Dates Dr. Hortensia Unger MD Primary Care Provider Active Joao THOMAS Attending Provider Active Team Status: Active Member Role Status Dates Dr. Joao Simon MD Family Provider Active Dr. Joao Simon MD Primary Care Provider Active Team Status: Inactive Member Role Status Dates Dr. Hortensia Unger MD Primary Care Provider, Referrin g Provider Active Dr. Tom Sorenson MD Attending Provider Active Team Status: Inactive Member Role Status Dates Dr. Joao Simon MD Primary Care Provider Active Dr. Matt Coy MD Emergency Provider Active Team Status: Inactive Member Role Status Dates Dr. Joao Simon MD Primary Care Provider Active Dr. Matt Coy MD Attending Provider, Emergency Provider Active Team Status: Inactive Member Role Status Dates Dr. Joao Simon MD Primary Care Provider Active Joao THMOAS Attending Provider Active Team Status: Active Member Role Status Dates Dr. Joao Simon MD Primary Care Provider Active Joao THOMAS Attending Provider Active Team Status: Inactive Member Role Status Dates Dr. Joao Simon MD Primary Care Provider Active Joao THOMAS Attending Provider, Referring Provide r Active Team Status: Active Member Role Status Dates Dr. Joao Simon MD Primary Care Provider Active Joao THOMAS Attending Provider, Referring Provide r Active Team Status: Active Member Role Status Dates Dr. Joao Simon MD Family Provider Active Dr. Melo THOMAS MD Primary Care Provider Active Team Status: Inactive Member Role Status Dates Dr. Melo THOMAS MD Primary Care Provider Active Start: April 04, 2024 End: April 04, 2024 Dr. Melo THOMAS MD Attending Provider Active Start: April 04, 2024 End: April 04, 2024 Team Status: Active Member Role Status Dates Dr. Melo THOMAS MD Primary Care Provider Active Start: June 16, 2024 Dr. Melo THOMAS MD Attending Provider Active Start: June 16, 2024 Team Status: Active Member Role Status Dates Dr. Melo THOMAS MD Primary Care Provider Active Start: June 17, 2024 Dr. Melo THOMAS MD Attending Provider Active Start: June 17, 2024 Team Status: Active Member Role Status Dates Dr. Melo THOMAS MD Primary Care Provider Active Start: July 01, 2024 Dr. Melo THOMAS MD Attending Provider Active Start: July 01, 2024 Team Status: Inactive Member Role Status Dates Dr. Melo THOMAS MD Primary Care Provider Active Start: July 02, 2024 End: July 02, 2024 Dr. Melo THOMAS MD Attending Provider Active Start: July 02, 2024 End: July 02, 2024 Team Status: Active Member Role Status Dates Dr. Melo THOMAS MD Primary Care Provider Active Start: July 03, 2024 Dr. Melo THOMAS MD Attending Provider Active Start: July 03, 2024 Team Status: Active Member Role Status Dates Dr. Melo THOMAS MD Primary Care Provider Active Start: July 04, 2024 Dr. Melo THOMAS MD Attending Provider Active Start: July 04, 2024 Team Status: Active Member Role Status Dates Dr. Melo THOMAS MD Primary Care Provider Active Start: July 05, 2024 Dr. Melo THOMAS MD Attending Provider Active Start: July 05, 2024 Team Status: Active Member Role Status Dates Dr. Melo THOMAS MD Primary Care Provider Active Start: July 08, 2024 Dr. Melo THOMAS MD Attending Provider Active Start: July 08, 2024 Team Status: Active Member Role Status Dates Dr. Melo THOMAS MD Primary Care Provider Active Start: July 09, 2024 Dr. Melo THOMAS MD Attending Provider Active Start: July 09, 2024 Team Status: Active Member Role Status Dates Dr. Melo THOMAS MD Primary Care Provider Active Start: July 12, 2024 Dr. Melo THOMAS MD Attending Provider Active Start: July 12, 2024 Team Status: Active Member Role Status Dates Dr. Melo THOMAS MD Primary Care Provider Active Start: July 15, 2024 Dr. Melo THOMAS MD Attending Provider Active Start: July 15, 2024 Team Status: Active Member Role Status Dates Dr. Melo THOMAS MD Primary Care Provider Active Start: July 16, 2024 Dr. Melo THOMAS MD Attending Provider Active Start: July 16, 2024 Team Status: Active Member Role Status Dates Dr. Melo THOMAS MD Primary Care Provider Active Start: July 17, 2024 Dr. Melo THOMAS MD Attending Provider Active Start: July 17, 2024 Team Status: Active Member Role Status Dates Dr. Melo THOMAS MD Primary Care Provider Active Start: July 18, 2024 Dr. Melo THOMAS MD Attending Provider Active Start: July 18, 2024 Team Status: Active Member Role Status Dates Dr. Melo THOMAS MD Primary Care Provider Active Start: 2024 Dr. Melo THOMAS MD Attending Provider Active Start: 2024 Team Status: Active Member Role Status Dates Dr. Mleo THOMAS MD Primary Care Provider Active Start: July 24, 2024 Dr. Melo THOMAS MD Attending Provider Active Start: July 24, 2024 Team Status: Active Member Role Status Dates Dr. Melo THOMAS MD Primary Care Provider Active Start: July 25, 2024 Dr. Melo THOMAS MD Attending Provider Active Start: July 25, 2024 Dr. Melo THOMAS MD Referring Provider Active Start: July 25, 2024 Team Status: Active Member Role Status Dates Dr. Melo THOMAS MD Primary Care Provider Active Start: July 29, 2024 Dr. Melo HTOMAS MD Attending Provider Active Start: July 29, 2024 Team Status: Inactive Member Role Status Dates Dr. Melo THOMAS MD Primary Care Provider Active Start: July 03, 2024 End: July 03, 2024 Dr. Melo THOMAS MD Attending Provider Active Start: July 03, 2024 End: July 03, 2024 Team Status: Inactive Member Role Status Dates Dr. Melo THOMAS MD Primary Care Provider Active Start: July 05, 2024 End: July 05, 2024 Dr. Melo THOMAS MD Attending Provider Active Start: July 05, 2024 End: July 05, 2024 Team Status: Inactive Member Role Status Dates Dr. Melo THOMAS MD Primary Care Provider Active Start: July 08, 2024 End: July 08, 2024 Dr. Melo THOMAS MD Attending Provider Active Start: July 08, 2024 End: July 08, 2024 Team Status: Inactive Member Role Status Dates Dr. Melo THOMAS MD Primary Care Provider Active Start: July 25, 2024 End: July 25, 2024 Dr. Melo THOMAS MD Attending Provider Active Start: July 25, 2024 End: July 25, 2024 Dr. Melo THOMAS MD Referring Provider Active Start: July 25, 2024 End: July 25, 2024 Team Status: Inactive Member Role Status Dates Dr. Melo THOMAS MD Primary Care Provider Active Start: June 16, 2024 End: June 16, 2024 Dr. Melo THOMAS MD Attending Provider Active Start: June 16, 2024 End: June 16, 2024 Team Status: Inactive Member Role Status Dates Dr. Melo THOMAS MD Primary Care Provider Active Start: July 01, 2024 End: July 01, 2024 Dr. Melo THOMAS MD Attending Provider Active Start: July 01, 2024 End: July 01, 2024 Team Status: Inactive Member Role Status Dates Dr. Melo THOMAS MD Primary Care Provider Active Start: July 12, 2024 End: July 12, 2024 Dr. Melo THOMAS MD Attending Provider Active Start: July 12, 2024 End: July 12, 2024 Team Status: Inactive Member Role Status Dates Dr. Melo THOMAS MD Primary Care Provider Active Start: July 17, 2024 End: July 17, 2024 Dr. Melo THOMAS MD Attending Provider Active Start: July 17, 2024 End: July 17, 2024 Team Status: Inactive Member Role Status Dates Dr. Melo THOMAS MD Primary Care Provider Active Start: 2024 End: 2024 Dr. Melo THOMAS MD Attending Provider Active Start: 2024 End: 2024 Team Status: Inactive Member Role Status Dates Dr. Melo THOMAS MD Primary Care Provider Active Start: July 24, 2024 End: July 24, 2024 Dr. Melo THOMAS MD Attending Provider Active Start: July 24, 2024 End: July 24, 2024 Team Status: Inactive Member Role Status Dates Dr. Melo THOMAS MD Primary Care Provider Active Start: July 29, 2024 End: July 29, 2024 Dr. Melo THOMAS MD Attending Provider Active Start: July 29, 2024 End: July 29, 2024 Team Status: Inactive Member Role Status Dates Dr. Melo THOMAS MD Primary Care Provider Active Start: August 12, 2024 End: August 12, 2024 Dr. Melo THOMAS MD Attending Provider Active Start: August 12, 2024 End: August 12, 2024 Dr. Melo THOMAS MD Referring Provider Active Start: August 12, 2024 End: August 12, 2024 Team Status: Inactive Member Role Status Dates Dr. Melo THOMAS MD Primary Care Provider Active Start: September 09, 2024 End: September 09, 2024 Dr. Melo THOMAS MD Attending Provider Active Start: September 09, 2024 End: September 09, 2024 Dr. Melo THOMAS MD Referring Provider Active Start: September 09, 2024 End: September 09, 2024 Team Status: Active Member Role Status Dates Dr. Melo THOMAS MD Primary Care Provider Active Team Status: Inactive Member Role Status Dates Dr. Melo THOMAS MD Primary Care Provider Active Start: October 09, 2024 End: October 09, 2024 Dr. Se Schmidt DO Emergency Provider Active Start : October 09, 2024 End: October 09, 2024 Team Status: Inactive Member Role Status Dates Dr. Melo THOMAS MD Primary Care Provider Active Start: October 09, 2024 End: October 09, 2024 Dr. Se Schmidt DO Attending Provider Active Start : October 09, 2024 End: October 09, 2024 Dr. Se Schmidt DO Emergency Provider Active Start : October 09, 2024 End: October 09, 2024 Team Status: Inactive Member Role Status Dates Dr. Melo THOMAS MD Primary Care Provider Active Start: October 22, 2024 End: October 22, 2024 Dr. Melo THOMAS MD Attending Provider Active Start: October 22, 2024 End: October 22, 2024 Dr. Melo THOMAS MD Referring Provider Active Start: October 22, 2024 End: October 22, 2024 FOR RECORDS PERTAINING TO PATIENTS WHO ARE [...] BE BASED ON THE PRIMARY CLINICAL RECORDS. [facility]. provides no warranty or guarantee of the accuracy or completeness of information in this document.
[2024-12-13 08:03] LABS: INR Fingerstick 2.3
== END ==
PROVIDERS: PCP Family Medicine; Visit Provider Family Medicine
DX: Z79.01 Long term (current) use of anticoagulants (principal)
CPT/HCPCS: 36416; 85610

== ENCOUNTER → 2025-02-07 | Outpatient (REF) | payer MEDICARE, SELFPAY ==
--- OUTSIDE RECORDS SUMMARY | 2025-02-07 03:59 | XMS RPT_ITS | CCD ---
Author Organization [facility] Care Team Providers Care Brush Maker Machine Name Role Phone Dr. Joe Rosario Emergency Provider Dr. Joao [...] Dr. Ba Other Provider Dr. Hortensia Unger S Primary Care Provider Dr. Jesse Davis Emergency Provider Dr. Gonzalo Stephens Admit Provider Kat, Dr. Sánchez Attending Provider Dr. Gonzalo Stephens Other Provider Jessica, Dr. Ba Attending Provider Jessica, Dr. Ba Other Provider Dr. Hortensia Unger S Primary Care Provider Dr. Hortensia Unger Referring Provider Dr. Tom Sorenson Attending Provider Dr. Hortensia Unger S Primary Care Provider Dr. Hortensia Unger S Referring Provider Dr. Tom Sorenson Attending Provider Fady HOLLAND, Dr. Alejo Primary Care Provider Unawild Shrestha MD, Dr. Alejo Attending Provider Unavail Dr. Melo Jhaveri MD Referring Provider Unavail cassidy Shrestha MD, Dr. Alejo Primary Care Provider Unawild Sherstha MD, Dr. Alejo Attending Provider Unavail able Dr. Melo Shrestha MD Referring Provider Unavail able Dr. Se Schmidt DO Emergency Provider Dr. Melo Shrestha MD Primary Care Provider Unav Dr. Melo Cordova MD Attending Provider Unavail able Dr. Se Schmidt DO Attending Provider Akin Post Unavailable Frannie HOLLAND, Fredo Bone Unavailable Fabrice HOLLAND, Power Unavailable MELO SHRESTHA Referring Unavailable DIANA SIMON Attending Unavailable Melo Wallace Attending Unavailable Melo Wallace Primary Care Unavailable Shrestha OLS, Melo Attending [...] Joao Primary Care Unavailable Shrestha OLS, Melo Primary Care Unavailable Serge Gómez Attending Unavailable Shrestha OLS, Melo Attending Unavailable [...] Attending Unavailable Simon, Joao Primary Care Unavailable Se Schmidt Attending Unavailable Shrestha OLS, Melo Primary Care [...] Care Unavailable Shrestha OLS, Melo Attending Unavailable Melo Wallace Attending Unavailable Joao Simon Primary Care Unavailable Melo Wallace Attending Unavailable Joao Simon Primary Care Unavailable Melo Wallace Attending Unavailable Melo Wallace Primary Care Unavailable Allergies Allergy Classification Reported Allergen(s) Allergy Type Date of Onset Reaction(s) Facility (20 sources) Acetaminophen Drug Allergy 06-17-19 22 Itching [facility] (20 sources) Codeine; Translations: [CODEINE] Drug Allergy 01-25-20 05 Nausea [facility] (20 sources) ezetimibe; Translations: [EZETIMIBE] Drug Allergy 06-28-19 07 Intolerance [facility] (20 sources) HYDROcodone; Translations: [hydrocodone bitartrate] Drug Allergy 06-17-19 Itching [facility] (20 sources) Penicillins; Translations: [PENICILLINS] Allergy to substance 01-25-20 05 Anaphylaxis [facility] (20 sources) Xcjdwdq-Tun-Kai Reductase Inhibitor; Translations: [Hequlcu-Fab-Xku Reductase Inhibitor] Propensity to adverse reactions 06-17-19 22 Other [facility] Comment on above: TOLERATES LIPITOR (4 sources) Memantine; Translations: [MEMANTINE] Drug Allergy 10-10-19 25 Intolerance [facility] (2 sources) Acetaminophen / HYDROcodone; Translations: [HYDROCODONE-ACET AMINOPHEN] Drug Allergy 07-15-19 12 Itching [facility] (2 sources) donepezil; Translations: [DONEPEZIL] Drug Allergy 12-18-19 25 Intolerance [facility] (2 sources) HMG-CoA reductase inhibitor; Translations: [[id number] REDUCTASE INHIBITORS] Drug Intolerance 11-23-19 06 Other: See Comments [facility] (2 sources) Lovastatin; Translations: [LOVASTATIN] Drug Allergy 01-09-20 15 Myalgia [facility] Work Phone: (1 source) Acetaminophen Drug Allergy 03-24-20 [facility] (1 source) Codeine Drug Allergy 10-10-19 [facility] (1 source) ezetimibe Drug Allergy 10-10-19 [facility] (1 source) Memantine Drug Allergy 10-10-19 [facility] Medications Current Medications Medication Drug Class(es) [...] EVERY 6 HOURS September 23, 2021 12:00am ALBUTEROL INHALA TION Inhale as instructed every 6 hours as needed. Active ALPRAZolam 0.5 mg oral tablet (20 sources) [...] 02, 2021 3:57pm November 04, 2021 3:03pm take 0.25 mg by mout h three times daily as needed ALPRAZolam (XANAX) 0.5 mg tablet Take 0. 25 mg by mouth three times a day. PRN Active carbidopa 10 mg / levodopa 100 mg disintegrating oral tablet (20 sources) Aromatic Amino Acid Decarboxylation Inhibitor, Aromatic Amino Acid Start: 01-09-2023 Carbidopa-Levodopa 10-100 mg tablet,disintegrating Active 1 {tbl} PO THREE TIMES A DAY January 09, 2023 12:00am Start: 01-09-2023 take 1 tablet by gisella th three times daily Carbidopa-Levodopa Active 1 TABLET PO THREE TIMES A DAY January 09, 2023 12:00am End: 12-20-2024 carbidopa-levodopa (SINEMET 10-100) 10-100 mg per tablet Take 1 tablet by mouth once daily. 1 tab at noon 12/20/2024 Discontinued take 1 tablet by gisella th twice daily carbidopa-levodopa (SINEMET 25-100) 25-100 mg per tablet Take 1 tablet by mouth two times a day. Active docusate sodium 50 mg oral capsule (1 source) docusate sodium (COLACE CLEAR) 50 mg capsule Take 50 mg by mouth as needed for constipation. Active docusate sodium 50 mg / sennosides, [facility] 8.6 mg oral tablet (1 source) take 1 tablet by mouth once daily senna-docusate (SENNA-TIME S) 8.6-50 mg per tablet Take 1 tablet by mouth once daily. Active hydroxychloroquine sulfate 200 mg oral tablet (20 sources) Antimalarial, Antirheumatic Agent Start: 2024 take 1 tablet by mouth twice daily hydrOXYchloroQUINE (PLAQUENIL) 200 mg tablet Take 200 mg by mouth two times a day. 11/28/2024 Active Start: 11-02-2021 take 1 tablet by gisella th twice daily Hydroxychloroquine 200 mg tablet Active 200 mg PO TWICE A DAY November 02, 2021 12:00am Start: 08-09-2020 take 200 mg by mouth twice daily Hydroxychloroquine Active 200 MG PO TWICE A DAY August 09, 2020 10:35am losartan potassium 100 mg oral tablet (20 sources) Angiotensin 2 Receptor Valente Start: 11-28-2024 losartan (COZAAR) 10 0 mg tablet 11/28/2024 Active Start: 09-23-2021 take 1 tablet by gisella once daily Losartan 100 mg tablet Active [...] July 31, 2017 4:13pm Start: 10-01-2016 End: 09-29-2021 take 2 tablets by mouth twice daily Metoprolol Tartrate 50 mg tablet Discontinued 100 mg PO TWICE A DAY September 23, 2021 12:00am September 29, 2021 2:35pm ondansetron 4 mg disintegrating oral tablet (20 sources) Serotonin-3 Receptor Antagonist Start: 09-12-2016 take 1 tablet by mouth every eight hours as needed for nausea Ondansetron 4 mg tablet,disintegrating Active 4 mg PO EVERY 8 HOURS NEEDED as needed for Nausea February 02, 2023 12:00am Polyethylene Glycol 3350 powd (1 source) Polyethylene Gly col 3350 powd once daily. Active microencapsulated potassium chloride 20 meq extended release oral tablet (20 sources) Start: 11-28-2024 potassium chloride ER (KLOR-CON) 20 mEq tablet 11/28/2024 Active Start: 11-10-2021 Potassium Chlo ride (Klor-Con M20) 20 mEq Tablet,Er Particles/Crystals Active 20 meq PO DAILY WITH MEALS November 10, 2021 12:00am QUEtiapine 25 mg oral tablet (1 source) Atypical Antipsychotic Start: 11-27-2024 QUEtiapine (SEROQUEL) 25 mg tablet Take 25 mg by mouth two times a day. 12.5 mg BID 11/27/2024 Active sodium chloride 0.111 meq/ml nasal spray (1 source) sodium chloride (SALINE NASAL) 0.65 % nasal spray Use 1 spray in the nose as needed for cold/allergy symptoms. Active traZODone hydrochloride 100 mg oral tablet (20 sources) Serotonin Reuptake Inhibitor Start: 09-16-2016 take 1 tablet by mouth at bedtime [...] AT BEDTIME February 14, 2019 12:00am Start: 11-21-2016 venlafaxine (E FFEXOR) 75 mg tablet Indications: Chronic depression Take two (2) tablets in the AM and one (1) tablet in the PM. 270 tablet 3 11/21/2016 Active Start: 10-01-2016 End: 01-07-2019 take 1 tablet [...] a day three times weekly on , Th and Sun in the evening Start: [...] PO DAILY September 23, 2021 11:09am Start: 07-19-2017 End: 11-02-2021 take 1 tablet by mouth once daily Warfarin 5 MG tablet Discontinued 5 mg PO DAILY 0 June 23, 2021 8:45pm November 02, 2021 [...] Sig (Normalized) Sig (Original) acetaminophen 325 mg / HYDROcodone bitartrate 5 mg oral tablet (1 source) Opioid Agonist Start: 09-01-2016 End: 12-20-2024 take 1 tablet by mouth once daily for pain HYDROcodone-aceta minophen (NORCO) 5-325 mg per tablet Indications: Chronic right-sided low back pain with right-sided sciatica , Arthritis of sacroiliac joint Take 1 tablet by mouth once daily. For back,hip pain. 30 tablet 09/01/2016 12/20/2024 Discontinued 120 actuat albuterol 0.1 mg/actuat / ipratropium bromide 0.02 mg/actuat inhalation spray (1 source) Anticholinergic, beta2-Adrenergic Agonist Start: 11-08-2016 End: 12-20-2024 take 20-100 ug by inhalation four times daily ipratropium-albut nikko (COMBIVENT RESPIMAT) 20-100 mcg/actuation mist Inhale 1 Puff as instructed four times daily. 3 Cartridge 4 11/08/2016 12/20/2024 Discontinued amLODIPine 5 mg oral tablet (20 sources) [...] 01, 2016 12:00am October 04, 2016 10:18am anastrozole 1 mg oral tablet (1 source) Aromatase Inhibitor Start: 07-18-2016 End: 12-20-2024 take 1 tablet by mouth once daily anastrozole (ARIMIDEX) 1 mg tablet Take 1 tablet by mouth once daily. 90 tablet 3 07/18/2016 12/20/2024 Discontinued aspirin 81 mg oral tablet (20 sources) [...] 2021 8:43pm Start: 04-20-2013 End: 05-17-2018 take 162 mg by mouth once daily Aspirin Discontinued 162 MG PO DAILY@799April 20, 2013 1:00am May 17, 2018 8:22am Start: 04-13-2013 End: 12-20-2024 take 2 tablets by mouth once daily Aspirin 81 MG tablet,chewable Discontinued 162 mg PO DAILY@0800 April 20, 2013 1:00am May 17, 2018 8:22am atorvastatin 40 mg oral tablet (20 sources) HMG-CoA Reductase Inhibitor Start: 10-01-2016 End: 12-20-2024 take 1 tablet by mouth once daily at bedtime atorvastatin (LIPITOR) 40 mg tablet Take 1 tablet by mouth daily at bedtime. 90 tablet 2 07/19/2017 12/20/2024 Discontinued Blood-Glucose Meter monitoring kit (1 source) Start: 02-16-2016 End: 12-20-2024 Blood-Glucose Meter monitoring kit Indications: Controlled type 2 diabetes mellitus with diabetic neuropathy, without long-term current use of insulin ([facility]) Glucose Meter of Choice - Kit - Dx: E11.40. 1 Each 0 02/16/2016 12/20/2024 Discontinued COMPOUNDED PRESCRIPTION (2 sources) Start: 12-20-2012 End: 12-20-2024 COMPOUNDED PRESCRIPTION L8020 Breast Prosthesis 1 Units 0 12/20/2012 12/20/2024 Discontinued Start: 12-20-2012 End: 12-20-2024 COMPOUNDED PRESCRIPTION L800 0 Surgical/Mastectomy Bras 4 Units 0 12/20/2012 12/20/2024 Discontinued donepezil hydrochloride 5 mg oral tablet (20 [...] sources) Provitamin D2 Compound Start: 04-20-2013 End: 12-20-2024 take 1 capsule by mouth every week ergocalciferol, vitamin D2, (DRISDOL) 50,000 unit capsule Indications: Vitamin D deficiency Take 1 capsule by mouth once each week. 12 capsule 2 07/19/2017 12/20/2024 Discontinued 30 actuat fluticasone furoate 0.05 mg/actuat dry powder inhaler (20 sources) Corticosteroid Start: 09-23-2021 End: 09-29-2021 Fluticasone Furoate (Arnuity Ellipta) 50 mcg/actuation blister with device Discontinued INHALATION September 23, 2021 12:00am September 29, 2021 2:37pm Start: 06-23-2021 End: 09-23-2021 Fluticasone Propionate 50 mcg/actuation [place],Suspension Discontinued 1 NMA NASAL TWICE A DAY [...] 14, 2019 12:00am June 23, 2021 8:44pm Start: 11-25-2010 take 2 puff(s) by [facility] twice daily fluticasone (FLOVENT HFA) 110 mcg/Actuation INHALATION inhaler Indications: Unspecified asthma(493.90) Inhale 2 Puffs as instructed twice daily. Use with spacer. Rinse mouth out after use. 3 Inhaler 3 11/25/2010 Active furosemide 20 mg oral tablet (20 sources) Loop Diuretic Start: 04-20-2013 End: 12-20-2024 take 1 tablet by mouth once daily Furosemide 20 mg tablet Discontinued 20 mg PO DAILY November 04, 2021 6:41pm November 10, 2021 9:11pm hydroCHLOROthiazide 25 mg oral tablet (20 sources) [...] 30, 2021 12:00am November 04, 2021 3:03pm ipratropium bromide 0.021 mg/actuat metered dose nasal spray (1 source) Anticholinergic Start: 03-16-2015 End: 12-20-2024 Ipratropium [place] (ATROVENT) 0.03 % nasal spray Indications: Other allergic rhinitis Use 2 Sprays in the nose every 12 hours. 1 Bottle 11 03/16/2015 12/20/2024 Discontinued lisinopril 20 mg oral tablet (20 sources) Angiotensin Converting Enzyme Inhibitor Start: 07-19-2017 End: 12-20-2024 take 1 tablet by mouth twice daily lisinopril (PRINIVIL) 20 mg tablet Indications: Essential hypertension Take 1 tablet by mouth twice daily. 180 tablet 2 07/19/2017 12/20/2024 Discontinued Start: 10-04-2016 End: 07-31-2017 take 1 tablet by mouth once daily Lisinopril 20 MG tablet Discontinued 20 mg PO DAILY October 04, 2016 12:00am July 31, 2017 4:13pm Start: 10-01-2016 End: 10-04-2016 take 1 tablet by mouth twice daily Lisinopril 20 MG tablet Discontinued 20 mg PO TWICE A DAY October 01, 2016 12:00am October 04, 2016 10:18am meclizine hydrochloride 25 mg oral tablet (1 source) Antiemetic Start: 12-05-2016 End: 12-20-2024 take 1 tablet by mouth every eight hours as needed meclizine (ANTIVERT) 25 mg tab Take 1 tablet by mouth three times daily as needed (dizziness). 21 tablet 3 12/05/2016 12/20/2024 Discontinued nitroglycerin 0.4 mg sublingual tablet (1 source) Nitrate Vasodilator Start: 09-14-2016 End: 12-20-2024 nitroglycerin sublingual (NITROQUICK) 0.4 mg SL tablet Dissolve 1 tablet under the tongue as needed. FOR CHEST PAIN. IF NO RELIEF CALL 911 1 Bottle of 25 3 09/14/2016 12/20/2024 Discontinued pantoprazole 20 mg delayed release oral tablet (1 source) Proton Pump Inhibitor Start: 05-17-2016 End: 12-20-2024 take 1 tablet by mouth once daily pantoprazole DR (PROTONIX) 20 mg tablet Take 1 tablet by mouth once daily. 30 tablet 12 05/17/2016 12/20/2024 Discontinued TENS unit and electrodes cmpk (1 source) Start: 11-25-2016 End: 12-20-2024 TENS unit and electrodes cmpk Use as instructed. 1 Device 11/25/2016 12/20/2024 Discontinued TENS Units jahaira (1 source) Start: 01-10-2017 End: 12-20-2024 TENS Units jahaira Indications: Chronic right SI joint pain , Chronic right-sided low back pain with right-sided sciatica , Acute right-sided low back pain with sciatica, sciatica laterality unspecified 1 Device as needed. 1 Device 01/10/2017 12/20/2024 Discontinued therapeutic multivitamin tablet (1 source) Start: 04-12-2013 End: 12-20-2024 take 1 tablet by mouth once daily at breakfast therapeutic multivitamin tablet Take 1 tablet by mouth daily with breakfast. 0 04/12/2013 12/20/2024 Discontinued traMADol hydrochloride 50 mg oral tablet (1 source) Opioid Agonist Start: 10-18-2016 End: 12-20-2024 take 1 tablet by mouth every six hours as needed traMADol (ULTRAM) 50 mg tablet Indications: Chronic right-sided low back pain with right-sided sciatica , Pain in right hip Take 1 tablet by mouth every 6 hours as needed. 90 tablet 10/18/2016 12/20/2024 Discontinued Problems Active Problems Problem Classification Problem Date Documented Da te Episodic/Chronic Acute cerebrovascular disease (20 sources) Cerebrovascular accident; Translations: [Cerebral infarction, unspecified] 06-16-2022 Chronic Acute myocardial infarction (3 sources) Myocardial infarction; Translations: [Non-ST elevation (NSTEMI) myocardial infarction] Chronic Anxiety disorders (1 source) Anxiety state; Translations: [Generalized anxiety disorder] Onset: 5 01-18-2016 Chronic Asthma (1 source) Asthma; Translations: [Unspecified asthma, uncomplicated] Onset: 7 09-01-2015 Chronic Cancer of breast (20 sources) Malignant tumor of breast ; Translations: [Malignant neoplasm of unspecified site of right female breast] Onset: 3 Resolved: 5 09-23-2021 Chronic Comment on above: History of right sg ast cancer 20 years ago status post mastectomy, chemotherapy. Left breast cancer 3 and half years ago status post lumpectomy currently on anastrozole. (right s/p modified radical mastectomy followed by reconstruction with adjuvant chemo + XRT. 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] Onset: 2 06-24-2011 Chronic Congestive heart failure; nonhypertensive (20 sources) Heart failure with normal ejection fraction; Translations: [Unspecified diastolic (congestive) heart failure] Chronic Coronary atherosclerosis and other heart disease (20 sources) Coronary arteriosclerosis; Translations: [Atherosclerotic heart disease of [place] coronary artery without angina pectoris] Onset: 5 Resolved: 7 Chronic Delirium, dementia, and amnestic and other cognitive disorders (20 sources) Dementia; Translations: [Unspecified dementia without behavioral disturbance] 01-29-2023 Chronic Diabetes mellitus with complications (2 sources) Nonproliferative retinopathy due to diabetes mellitus; Translations: [Type 2 diabetes mellitus with mild nonproliferative diabetic retinopathy without macular edema, unspecified eye] Onset: 8 Resolved: 9 01-03-2014 Chronic Diabetes mellitus without complication (2 sources) Type 2 diabetes mellitus; Translations: [Type 2 diabetes mellitus without complications] Onset: 8 Resolved: 9 03-31-2015 Chronic Disorders of lipid metabolism (20 sources) Hyperlipidemia; Translations: [Hyperlipidemia, unspecified] Onset: 3 Chronic E Codes: Fall (18 sources) Fall; Translations: [Unspecified fall, initial encounter] 04-01-2024 Episodic Essential hypertension (20 sources) Hypertensive disorder; Translations: [Essential (primary) hypertension] Onset: 5 Resolved: 7 Chronic Genitourinary symptoms and ill-defined conditions (1 source) Female stress incontinence; Translations: [Stress incontinence (female) (male)] Onset: 5 09-24-2024 Chronic Heart valve disorders (20 sources) Aortic stenosis, non-rheumatic ; Translations: [Nonrheumatic aortic (valve) stenosis] 09-30-2021 Chronic Menopausal disorders (1 source) Menopausal symptom; Translations: [Menopausal and female climacteric states] Onset: 6 09-24-2024 Chronic Mood disorders (20 sources) Depressive disorder; Translations: [Depression] Onset: Chronic Nausea and vomiting (20 sources) Nausea and vomiting; Translations: [Nausea with vomiting, unspecified] 02-02-2023 Episodic Nutritional deficiencies (1 source) Vitamin D deficiency; Translations: [Vitamin D deficiency, unspecified] Onset: 5 03-19-2015 Chronic Other aftercare (20 sources) Anticoagulant control - finding; Translations: [Encounter for therapeutic drug level monitoring] 04-13-2019 Episodic Other aftercare (20 sources) Long-term current use of anticoagulant; Translations: [senior care (current) use of anticoagulants] 09-23-2021 Episodic Other aftercare (2 sources) senior care (current) use of anticoagulants; Translations: [assistant terminal manager (current) use of anticoagulants] Onset: Episodic Other circulatory disease (3 sources) Low [...] [Unspecified injury of head, initial encounter] Onset: Episodic Other lower respiratory disease (3 sources) [...] sources) Metabolic encephalopathy; Translations: [Metabolic encephalopathy] Onset: Chronic Other nervous system disorders (20 sources) [...] Translations: [Abnormality of gait] 01-09-2023 Episodic Other nervous system disorders (1 source) Multifactorial gait problem; Translations: [Other abnormalities of gait and mobility] 12-20-2024 Episodic Other non-traumatic joint disorders (5 sources) Pain in left hip; Translations: [Pain in joint, pelvic region and thigh] Episodic Other nutritional; endocrine; and metabolic disorders (20 sources) Obesity; Translations: [Obesity, unspecified] 01-07-2019 Chronic Other upper respiratory disease (20 sources) Allergic rhinitis; Translations: [Allergic rhinitis, unspecified] Onset: 5 09-23-2021 Chronic Other upper respiratory disease (5 [...] sources) Parkinsonism; Translations: [Parkinson's disease] 09-23-2021 Chronic Residual codes; unclassified (1 source) Restlessness and agitation; Translations: [Restlessness and agitation] Onset: Chronic Residual codes; unclassified (20 sources) Insomnia; [...] [Transient cerebral ischemic attack, unspecified] 08-01-2017 Chronic Past or Other Problems Problem Classification Problem Date Documented Da te Episodic/Chronic Abdominal pain (3 sources) Acute abdominal pain; Translations: [Right upper quadrant pain] Onset: 1 Resolved: 5 11-22-2011 Episodic Acquired foot deformities (1 source) Acquired hallux valgus; Translations: [Hallux valgus (acquired), unspecified foot] Onset: 8 Resolved: 3 05-31-2012 Chronic Acquired foot deformities (1 source) Acquired deformity of toe; Translations: [Other deformities of toe(s) (acquired), unspecified foot] Onset: 8 Resolved: 2 11-22-2011 Episodic Acute and unspecified renal failure (1 source) Acute renal failure syndrome; Translations: [Acute kidney failure, unspecified] Onset: 3 Resolved: 3 Episodic Acute posthemorrhagic anemia (1 source) Acute posthemorrhagic anemia; Translations: [Acute posthemorrhagic anemia] Onset: 3 Resolved: 4 05-24-2021 Episodic Allergic reactions (1 source) Solar degeneration; Translations: [Other skin changes due to chronic exposure to nonionizing radiation] Onset: 0 Resolved: 3 05-31-2012 Episodic Biliary tract disease (1 source) Biliary colic; Translations: [Calculus of bile duct without cholangitis or cholecystitis without obstruction] Onset: 2 Resolved: 3 05-31-2012 Episodic Coronary atherosclerosis and other heart disease (9 sources) Presence of aortocoronary bypass graft; Translations: [Aortocoronary bypass status] Onset: 3 Episodic Deficiency and other anemia (1 source) Anemia, unspecified; Translations: [Anemia, unspecified] Onset: 4 Episodic Fluid and electrolyte disorders (20 sources) Acute hyponatremia; Translations: [Hypo-osmolality and hyponatremia] Onset: 3 Resolved: 3 Episodic Gastritis and duodenitis (1 source) Acute gastritis; Translations: [Acute gastritis without bleeding] Onset: 1 Resolved: 5 12-30-2014 Episodic Genitourinary symptoms and ill-defined conditions (1 source) Blood in urine; Translations: [Hematuria, unspecified] Onset: 5 Resolved: 7 03-07-2017 Episodic Joint disorders and dislocations; trauma-related (1 source) Derangement of knee; Translations: [Unspecified internal derangement of unspecified knee] Onset: 5 Resolved: 6 09-24-2024 Chronic Joint disorders and dislocations; trauma-related (1 source) Tear of medial meniscus of knee; Translations: [Tear of medial cartilage or meniscus of knee, current] Onset: 5 Resolved: 6 04-29-2025 Episodic Malaise and fatigue (20 sources) Asthenia; Translations: [Other malaise] Onset: 4 Episodic Mycoses (1 source) Onychomycosis due to dermatophyte ; Translations: [Tinea unguium] Onset: 8 Resolved: 3 05-31-2012 Episodic Osteoarthritis (2 sources) Localized, primary osteoarthritis; Translations: [Unilateral primary osteoarthritis, unspecified knee] Onset: 6 Resolved: 3 02-09-2009 Chronic Other acquired deformities (1 source) Acquired deformity of ankle AND/OR foot; Translations: [Unspecified acquired deformity of unspecified lower leg] Onset: 8 Resolved: 2 11-22-2011 Episodic Other aftercare (1 source) Patient encounter status; Translations: [Encounter for therapeutic drug level monitoring] Onset: 3 Episodic Other aftercare (1 source) Follow-up status; Translations: [Encounter for other specified aftercare] Onset: 6 Resolved: 6 09-24-2024 Episodic Other aftercare (2 sources) Other assistant terminal manager (current) drug therapy; Translations: [Other assistant terminal manager (current) drug therapy] Onset: 4 Episodic Other connective tissue disease (1 source) Lateral epicondylitis; Translations: [Lateral epicondylitis, unspecified elbow] Onset: 6 Resolved: 6 09-24-2024 Episodic Other connective tissue disease (1 source) Inflammatory disorder of extremity; Translations: [Pes anserinus tendinitis or bursitis] Onset: 6 Resolved: 6 09-24-2024 Episodic Other connective tissue disease (1 source) Pain in limb; Translations: [Pain in unspecified limb] Onset: 8 Resolved: 3 05-31-2012 Episodic Other connective tissue disease (1 source) Enthesopathy of hip region; Translations: [Other specified enthesopathies of unspecified lower limb, excluding foot] Onset: 0 Resolved: 3 05-31-2012 Episodic Other diseases of veins and lymphatics (1 source) Peripheral venous insufficiency; Translations: [Venous insufficiency (chronic) (peripheral)] Onset: 5 03-07-2017 Episodic Other female genital disorders (1 source) Burning sensation of vagina; Translations: [Other specified conditions associated with female genital organs and menstrual cycle] Onset: 5 Resolved: 5 12-30-2014 Episodic Other gastrointestinal disorders (1 source) Adhesion of intestine; Translations: [Peritoneal adhesions (postprocedural) (postinfection)] Onset: 2 Resolved: 2 11-22-2011 Episodic Other lower respiratory disease (1 source) Hypoxemia; Translations: [Hypoxemia] Onset: 3 Resolved: 3 Episodic Other nervous system disorders (1 source) Mononeuropathy of upper limb; Translations: [Other specified mononeuropathies of unspecified upper limb] Onset: 6 Resolved: 6 09-24-2024 Chronic Other non-traumatic joint disorders (20 sources) Hip pain; Translations: [Pain in left hip] Onset: 6 09-23-2021 Episodic Other non-traumatic joint disorders (1 source) Pain in right hip; Translations: [Pain in right hip] Onset: 4 Episodic Other nutritional; endocrine; and metabolic disorders (1 source) Metabolic syndrome X; Translations: [Dysmetabolic syndrome X] Onset: 9 Resolved: 9 02-18-2009 Chronic Other screening for suspected conditions (not mental disorders or infectious disease) (20 sources) Deviation of international normalized ratio from target range; Translations: [Abnormal coagulation profile] Onset: 5 Resolved: 5 08-01-2017 Episodic Other skin disorders (1 source) Inflamed seborrheic keratosis; Translations: [Inflamed seborrheic keratosis] Onset: 0 Resolved: 3 05-31-2012 Episodic Other skin disorders (1 source) Seborrheic keratosis; Translations: [Other seborrheic keratosis] Onset: 0 Resolved: 3 05-31-2012 Episodic Other skin disorders (1 source) Solar lentigo; Translations: [Other melanin hyperpigmentation] Onset: 0 Resolved: 3 05-31-2012 Episodic Other skin disorders (1 source) Skin tag; Translations: [Other hypertrophic disorders of the skin] Onset: 0 Resolved: 3 05-31-2012 Episodic Other skin disorders (1 source) Epidermoid cyst of skin; Translations: [Epidermal cyst] Onset: 0 Resolved: 3 05-31-2012 Episodic Other skin disorders (1 source) Milia; Translations: [Epidermal cyst] Onset: 0 Resolved: 3 05-31-2012 Episodic Other skin disorders (1 source) Disorder of sebaceous gland; Translations: [Follicular disorder, unspecified] Onset: 0 Resolved: 3 05-31-2012 Episodic Phlebitis; thrombophlebitis and thromboembolism (20 sources) Recurrent deep vein thrombosis; Translations: [Acute embolism and thrombosis of unspecified deep veins of unspecified lower extremity] Onset: 3 Resolved: 7 09-23-2021 Episodic Pleurisy; pneumothorax; pulmonary collapse (1 source) Atelectasis; Translations: [Atelectasis] Onset: 3 Resolved: 4 05-24-2021 Episodic Pulmonary heart disease (2 sources) Pulmonary embolism with pulmonary infarction; Translations: [Other pulmonary embolism without acute cor pulmonale] Onset: 7 Resolved: 9 02-29-2008 Episodic Residual codes; unclassified (1 source) Memory impairment; Translations: [Other amnesia] Onset: 3 Resolved: 7 03-07-2017 Episodic Residual codes; unclassified (1 source) Family history of malignant neoplasm of gastrointestinal tract; Translations: [Family history of malignant neoplasm of digestive organs] Onset: 5 Resolved: 5 02-19-2015 Episodic Spondylosis; intervertebral disc disorders; other back problems (1 source) Sacroiliitis, not elsewhere classified; Translations: [Sacroiliitis, not elsewhere classified] Onset: 6 Resolved: 7 03-07-2017 Chronic Spondylosis; intervertebral disc disorders; other back problems (5 sources) Chronic low back pain; Translations: [Lumbago with sciatica, right side] Onset: 0 Resolved: 7 03-09-2016 Episodic Urinary tract infections (1 source) Lower urinary tract infectious disease; Translations: [Urinary tract infection, site not specified] Onset: 5 Resolved: 5 12-30-2014 Episodic Results Test Name Value Interpretation Reference Range Facility [facility] 12-17-2024 CNOV Office Visit (NRMDN) COLETTE RICHARDSON ([id number]) 1935 F Date Time Provider Department 12/17/24 11:00 [facility] your [facility] today, we recorded the following information about you: Weight 64.8 kg Diana Simon MD 12/20/2024 5:59 PM Signed [facility] PATIENT EVALUATION Recording using App[employer]end software for draft documentation of the visit was discussed with the patient/authorized technical account representative; all questions welcomed and answered. Patient/authorized technical account representative agreed to proceed Referring Provider: Melo Shrestha [address] [place] [id number] Dear Melo Shrestha: Thank you for referring Ms. Richardson to [...] three years ago by a neurologist in [place]. At the time of diagnosis, she was [...] physical therapy and an exercise class called [employer] at her [facility], which she enjoys. She does not endorse [...] freezin (none) Autonomic/Pain Lightheadeness on standin (none) Urinar (more content not included)... Normal [facility] normalized rat io (INR) calculationOrdered By: Melo Shrestha on 10-22-2024 INR Coag (Bld) [Relative time] 2.3 {INR} [facility] Prothrombin timeOrdered By: Melo Shrestha on 10-22-2024 PT Coag (PPP) [Time] 26.0 s High 11.7-14.9 [facility] Absolute lymphocyte countOrd ered By: Se Schmidt on 10-09-2024 Lymphocytes Auto (Unsp spec) [#/Vol] 1.87 10*3/uL 0.83-4.51 [facility] Absolute neutrophil countOrd ered By: Se Schmidt on 10-09-2024 Neutrophils (Bld) [#/Vol] 2.9 10*3/uL 2.0-7.7 [facility] Activated partial thrombopla stin time (aPTT) in platelet poor plasma by coagulation aOrdered By: Se Schmidt on 10-09-2024 aPTT Coag (PPP) [Time] 32.4 s 24.1-36.2 [facility] Anion gap in Serum or Plasma Ordered By: Se Schmidt on 10-09-2024 Anion gap [Moles/Vol] 7 mmol/L 5-15 [facility] Automated lymphocyte count a s percentage of total leukocytesOrdered By: Se Schmidt on 10-09-2024 Lymphocytes/100 WBC Auto (Unsp spec) 33.8 % [facility] BUN/creatinine ratioOrdered By: Se Schmidt on 10-09-2024 Urea nitrogen/Creatinine [Mass ratio] 20.6 mg/mg High 03-17 [facility] Basic Metabolic Profile (BMP )on 10-09-2024 BUN/CRE 20.6 RATIO High 03-17 [facility] Comment on above: Performed By: #### L 500.2500, L100.0100, L300.4310, L300.3900 #### [facility] [address] [place], [address] Calcium [Mass/Vol] 8.8 mg/dL Normal 7.6-11.0 [facility] Comment on above: Performed By: #### L 500.2500, L100.0100, L300.4310, L300.3900 #### [facility] [address] [place], [address] Chloride [Moles/Vol] 99 mmol/L Normal 98-108 [facility] Comment on above: Performed By: #### L 500.2500, L100.0100, L300.4310, L300.3900 #### [facility] [address] [place], [address] CO2 [Moles/Vol] 28.1 mmol/L Normal 21.0-32.0 [facility] Comment on above: Performed By: #### L 500.2500, L100.0100, L300.4310, L300.3900 #### [facility] [address] [place], [address] Creatinine [Mass/Vol] 0.66 mg/dL Low 0.70-1.20 [facility] Comment on above: Performed By: #### L 500.2500, L100.0100, L300.4310, L300.3900 #### [facility] [address] [place], [address] ECRCL 43.20 ml/min Low 50-250 [facility] Comment on above: Performed By: #### L 500.2500, L100.0100, L300.4310, L300.3900 #### [facility] [address] [place], [address] GAP 7 Normal 5-15 [facility] Comment on above: Performed By: #### L 500.2500, L100.0100, L300.4310, L300.3900 #### [facility] [address] [place], [address] GFR/1.73 sq M.predicted among non-blacks MDRD (S/P/Bld) [Vol rate/Area] 85 mL/min/{1.73_m2} Normal >60 [facility] Comment on above: Result Comment: mL/m in/1.73m2 CKD-EPI Creatinine Equation (2020) Performed By: #### L 500.2500, L100.0100, L300.4310, L300.3900 #### [facility] [address] [place], [address] Glucose [Mass/Vol] 131 mg/dL High 70-99 [facility] Comment on above: Performed By: #### L 500.2500, L100.0100, L300.4310, L300.3900 #### [facility] [address] [place], [address] Potassium [Moles/Vol] 4.3 mmol/L Normal 3.3-5.1 [facility] Comment on above: Performed By: #### L 500.2500, L100.0100, L300.4310, L300.3900 #### [facility] [address] [place], [address] Sodium [Moles/Vol] 134 mmol/L Normal 133-145 [facility] Comment on above: Performed By: #### L 500.2500, L100.0100, L300.4310, L300.3900 #### [facility] [address] [place], [address] Urea nitrogen [Mass/Vol] 14 mg/dL Normal 4-19 [facility] Comment on above: Performed By: #### L 500.2500, L100.0100, L300.4310, L300.3900 #### [facility] [address] [place], [address] Basophil percentageOrdered B y: Se Schmidt on 10-09-2024 Basophils/100 WBC (Bld) 0.7 % 0-1 [facility] Brain/Head without Contrasto n 10-09-2024 Brain/Head without Contrast [facility] Imaging Services [address] [place] [address] Brain/Head without Contrast MR#: [id number] Acct: [id number] Name: COLETTE RICHARDSON Rep #: [id number] : 1935 F 89 From: Gonzalo Schmidt MD PCP: Dr. Melo Shrestha MD Status: [facility] Study: Brain/Head without Contrast Date of Exam: 09/26 09/20 Exam# [id number] Ordering Dr: Se Schmidt DO EXAM: CT [...] evaluation with MRI is recommended. Reading Location: [facility] CC: Dr. Melo Shrestha MD; Dr. Se Schmidt DO Slide Maker: Signed Normal [facility] CBC W/Diff, Automatedon 09-26 Absolute Lymph 1.87 X10 3/uL Normal 0.83-4.51 [facility] Comment on above: Performed By: #### L 500.2500, L100.0100, L300.4310, L300.3900 #### [facility] [address] [place], [address] Absolute Neut 2.9 X10 3/uL Normal 2.0-7.7 [facility] Comment on above: Performed By: #### L 500.2500, L100.0100, L300.4310, L300.3900 #### [facility] [address] [place], [address] Basophils/100 WBC (Bld) 0.7 % Normal 0-1 [facility] Comment on above: Performed By: #### L 500.2500, L100.0100, L300.4310, L300.3900 #### [facility] [address] [place], [address] Eosinophils/100 WBC (Bld) 4.2 % Normal 0-5 [facility] Comment on above: Performed By: #### L 500.2500, L100.0100, L300.4310, L300.3900 #### [facility] [address] [place], [address] Erythrocyte distribution width (RBC) [Ratio] 12.3 % Normal 11.6-14.6 [facility] Comment on above: Performed By: #### L 500.2500, L100.0100, L300.4310, L300.3900 #### [facility] [address] [place], [address] Hematocrit (Bld) [Volume fraction] 38.7 % Normal 37-47 [facility] Comment on above: Performed By: #### L 500.2500, L100.0100, L300.4310, L300.3900 #### [facility] [address] [place], [address] Hemoglobin (Bld) [Mass/Vol] 13.1 g/dL Normal 12.0-15.0 [facility] Comment on above: Performed By: #### L 500.2500, L100.0100, L300.4310, L300.3900 #### [facility] [address] [place], [address] IG% 0.200 Normal 0.0-0.9 [facility] Comment on above: Result Comment: IG% - Immature Granulocytes (promyelocytes, myelocytes and metamyelocytes) > 1% indicates that a LEFT SHIFT is Present. Performed By: #### L 500.2500, L100.0100, L300.4310, L300.3900 #### [facility] [address] [place], [address] Lymphocytes/100 WBC (Bld) 33.8 % Normal 19-41 [facility] Comment on above: Performed By: #### L 500.2500, L100.0100, L300.4310, L300.3900 #### [facility] [address] [place], [address] MCH (RBC) [Entitic mass] 31.3 pg Normal 27.0-32.0 [facility] Comment on above: Performed By: #### L 500.2500, L100.0100, L300.4310, L300.3900 #### [facility] [address] [place], [address] MCHC (RBC) [Mass/Vol] 33.9 g/dL Normal 32-36 [facility] Comment on above: Performed By: #### L 500.2500, L100.0100, L300.4310, L300.3900 #### [facility] [address] [place], [address] MCV (RBC) [Entitic vol] 92.6 fL Normal 81-99 [facility] Comment on above: Performed By: #### L 500.2500, L100.0100, L300.4310, L300.3900 #### [facility] [address] [place], [address] Monocytes/100 WBC (Bld) 8.5 % Normal 0-10 [facility] Comment on above: Performed By: #### L 500.2500, L100.0100, L300.4310, L300.3900 #### [facility] [address] [place], [address] Neutrophils/100 WBC (Bld) 52.6 % Normal 47-70 [facility] Comment on above: Performed By: #### L 500.2500, L100.0100, L300.4310, L300.3900 #### [facility] [address] [place], [address] Nucleated RBC (Bld) [#/Vol] 0 10*3/uL Normal 0-5 [facility] Comment on above: Performed By: #### L 500.2500, L100.0100, L300.4310, L300.3900 #### [facility] [address] [place], [address] Platelet mean volume (Bld) [Entitic vol] 10.3 fL Normal 6.2-12.0 [facility] Comment on above: Performed By: #### L 500.2500, L100.0100, L300.4310, L300.3900 #### [facility] [address] [place], [address] Platelets (Bld) [#/Vol] 196 10*3/uL Normal 150-450 [facility] Comment on above: Performed By: #### L 500.2500, L100.0100, L300.4310, L300.3900 #### [facility] [address] [place], [address] RBC (Bld) [#/Vol] 4.18 10*6/uL Low 4.2-5.4 [facility] Comment on above: Performed By: #### L 500.2500, L100.0100, L300.4310, L300.3900 #### [facility] [address] [place], [address] RDW SD 42.1 fl Normal 35.1-43.9 [facility] Comment on above: Performed By: #### L 500.2500, L100.0100, L300.4310, L300.3900 #### [facility] [address] [place], [address] WBC (Bld) [#/Vol] 5.5 10*3/uL Normal 4.4-11.0 [facility] Comment on above: Performed By: #### L 500.2500, L100.0100, L300.4310, L300.3900 #### [facility] [address] [place], [address] Carbon dioxide, total [Moles /volume] in Central venous bloodOrdered By: Se Schmidt on 10-09-2024 CO2 [Moles/Vol] 28.1 mmol/L 21.0-32.0 [facility] Chloride assayOrdered By: Cedric Schmidt on 10-09-2024 Chloride [Moles/Vol] 99 mmol/L 98-108 [facility] Emergency Department Summary on 10-09-2024 Emergency Department Summary [facility] Medical Records Department [address] [place] [address] Emergency Department Summary 10/09/24 MR#: [id number] Acct: [id number] Name: COLETTE RICHARDSON Rep #: [id number] : 1935 89 From: Se Lu PCP: Dr. Melo Shrestha MD Status:DEP ER Location: ED HPI HPI - Fall History of Present Illness Chief Complaint: Head Injury Informant: patient and family Narrative Narrative: Brought from [place] assisted living by EMS daughter present for the [...] forehead and mild discomfort to left wrist. [facility] Medical History History of Parkinson's disease Memory loss Nonrheumatic aortic (valve) stenosis Poor balance Frequent falls senior care current use of anticoagulant Rheumatoid arthritis Parkinsonian syndrome History of pulmonary embolus (PE) Postoperative atrial fibrillation (04/04/13) Recurrent deep vein thrombosis (DVT) Hypercoagulable state History of non-ST elevation myocardial infarction (NSTEMI) (10/01/16) Atherosclerotic heart disease of [place] coronary artery without angina pectoris Paroxysmal atrial [...] PO QHS PRN PRN 11/10/21 11:30 Rx Anxiety/Restlessness/ Sleep #0 tabs potassium chloride 20 mEq 20 [...] (From AdvReac Itching Verified 10/09/24 19:02 Vicodin) Tdwrshu-FDB-VvR Reductase AdvReac Other Verified 10/09/24 19:02 Inhibitor (Jnguvfn-Aai-Zaa Reductase Inhibitor) Surgical History History of coronary [...] dysuria, hematur (more content not included)... Normal [facility] Eosinophil percentageOrdered By: Se Schmidt on 10-09-2024 Eosinophils/100 WBC (Bld) 4.2 % 0-5 [facility] Erythrocyte distribution wid th ratioOrdered By: Se Schmidt on 10-09-2024 Erythrocyte distribution width (RBC) [Ratio] 12.3 % 11.6-14.6 [facility] Erythrocyte distribution wid th standard deviationOrdered By: Se Schmidt on 10-09-2024 Erythrocyte distribution width (RBC) [Ratio] 42.1 fl 35.1-43.9 [facility] Glomerular filtration rate ( GFR) estimation/1.73 sq m using serum, plasma, or whole bOrdered By: Se Schmidt on 10-09-2024 GFR/1.73 sq M.predicted among non-blacks MDRD (S/P/Bld) [Vol rate/Area] 85 mL/min/{1.73_m2} >60 [facility] Comment on above: mL/min/1.73m2 CKD-EP I Creatinine Equation (2020) Hematocrit Auto (Bld) [Volum e fraction]Ordered By: Se Schmidt on 10-09-2024 Hematocrit (Bld) [Volume fraction] 38.7 % 37-47 [facility] Hemoglobin measurementOrdere d By: Se Schmidt on 10-09-2024 Hemoglobin (Bld) [Mass/Vol] 13.1 g/dL 12.0-15.0 [facility] Immature granulocytes/100 WB C Auto (Bld)Ordered By: Se Schmidt on 10-09-2024 Immature granulocytes/100 WBC (Bld) 0.200 % 0.0-0.9 [facility] Comment on above: IG% - Immature Granu locytes (promyelocytes, myelocytes and metamyelocytes) > 1% indicates that a LEFT SHIFT is Present. International normalized rat io (INR) calculationOrdered By: Se Schmidt on 10-09-2024 INR Coag (Bld) [Relative time] 2.4 {INR} [facility] MCV (mean corpuscular volume ) determinationOrdered By: Se Schmidt on 10-09-2024 MCV (RBC) [Entitic vol] 92.6 fL 81-99 [facility] Mean corpuscular hemoglobin (MCH) determinationOrdered By: Se Schmidt on 10-09-2024 MCH (RBC) [Entitic mass] 31.3 pg 27.0-32.0 [facility] Mean corpuscular hemoglobin concentration (MCHC) determinationOrdered By: Se Schmidt on 10-09-2024 MCHC (RBC) [Mass/Vol] 33.9 g/dL 32-36 [facility] Mean platelet volume determi nationOrdered By: Se Schmidt on 10-09-2024 Platelet mean volume (Bld) [Entitic vol] 10.3 fL 6.2-12.0 [facility] Monocyte percentageOrdered B y: Se Schmidt on 10-09-2024 Monocytes/100 WBC (Bld) 8.5 % 0-10 [facility] Neutrophil percentageOrdered By: Se Schmidt on 10-09-2024 Neutrophils/100 WBC (Bld) 52.6 % 47-70 [facility] Nucleated red blood cell per centageOrdered By: Se Schmidt on 10-09-2024 Nucleated RBC/100 WBC (Bld) [Ratio] 0 % 0-5 [facility] Partial Thromboplast Timeon 10-09-2024 aPTT Coag (Bld) [Time] 32.4 s Normal 24.1-36.2 [facility] Comment on above: Performed By: #### L 500.2500, L100.0100, L300.4310, L300.3900 #### [facility] [address] [place], [address] Platelet countOrdered By: Cedric Schmidt on 10-09-2024 Platelets (Bld) [#/Vol] 196 10*3/uL 150-450 [facility] Potassium measurement (mass/ volume)Ordered By: eS Schmidt on 10-09-2024 Potassium (Unsp spec) [Mass/Vol] 4.3 mmol/L 3.3-5.1 [facility] Prothrombin Time w/INRon INR Coag (PPP) [Relative time] 2.4 {INR} Normal [facility] Comment on above: Performed By: #### L 500.2500, L100.0100, L300.4310, L300.3900 #### [facility] [address] [place], [address] PT Coag (PPP) [Time] 26.6 s High 11.7-14.9 [facility] Comment on above: Performed By: #### L 500.2500, L100.0100, L300.4310, L300.3900 #### [facility] [address] [place], [address] Prothrombin timeOrdered By: Se Schmidt on 10-09-2024 PT Coag (PPP) [Time] 26.6 s High 11.7-14.9 [facility] RBC Auto (Bld) [#/Vol]Ordere d By: Se Schmidt on 10-09-2024 RBC (Bld) [#/Vol] 4.18 10*6/uL Low 4.2-5.4 [facility] Serum creatinine measurement (mass/volume)Ordered By: Se Schmidt on 10-09-2024 Creatinine [Mass/Vol] 0.66 mg/dL Low 0.70-1.20 [facility] Serum glucose measurement (m ass/volume)Ordered By: Se Schmidt on 10-09-2024 Glucose [Mass/Vol] 131 mg/dL High 70-99 [facility] Serum or plasma calcium josué urement (mass/volume)Ordered By: Se Schmidt on 10-09-2024 Calcium [Mass/Vol] 8.8 mg/dL 7.6-11.0 [facility] Serum or plasma urea nitroge n measurement (mass/volume)Ordered By: Se Schmidt on 10-09-2024 Urea nitrogen [Mass/Vol] 14 mg/dL 4-19 [facility] Sodium levelOrdered By: Se Schmidt on 10-09-2024 Sodium [Moles/Vol] 134 mmol/L 133-145 [facility] Spine Cervical without Contr ason 10-09-2024 Spine Cervical without Contras [facility] Imaging Services [address] [place] [id number] Spine Cervical without Contras MR#: [id number] Acct: [id number] Name: COLETTE RICHARDSON Rep #: [id number] : 1935 F 89 From: Gonzalo Schmidt MD PCP: Dr. Melo Shrestha MD Status: REG ER Study: Spine Cervical without Contras Date of Exam: 0 10/09/24 Exam# [id number] Ordering Dr: Se Schmidt DO EXAM: CT [...] changes cervical spine as described. Reading Location: [facility] CC: Dr. Melo Shrestha MD; Dr. Se Schmidt DO Slide Maker: Signed Normal [facility] White blood cell (WBC) count Ordered By: Se Schmidt on 10-09-2024 WBC (Bld) [#/Vol] 5.5 10*3/uL 4.4-11.0 [facility] International normalized rat io (INR) calculationOrdered By: Melo Shrestha on 09-09-2024 INR Coag (Bld) [Relative time] 2.5 {INR} [facility] Prothrombin timeOrdered By: Melo Shrestha on 09-09-2024 PT Coag (PPP) [Time] 27.6 s High 11.7-14.9 [facility] International normalized rat io (INR) calculationOrdered By: Melo Shrestha on 08-12-2024 INR Coag (Bld) [Relative time] 2.5 {INR} [facility] Prothrombin timeOrdered By: Melo Shrestha on 08-12-2024 PT Coag (PPP) [Time] 27.8 s High 11.7-14.9 [facility] International normalized rat io (INR) calculationOrdered By: Melo Shrestha on 07-29-2024 INR Coag (Bld) [Relative time] 2.8 {INR} [facility] Prothrombin timeOrdered By: Melo Shrestha on 07-29-2024 PT Coag (PPP) [Time] 30.2 s High 11.7-14.9 [facility] INR Coag (BldC) [Relative ti me]Ordered By: Melo Shrestha on 07-25-2024 INR Coag (Bld) [Relative time] 2.2 {INR} [facility] Comment on above: Critical Value > 4.0 International normalized rat io (INR) measurement by fingerstickOrdered By: Melo Shrestha on 07-25-2024 INR Coag (BldC) [Relative time] 2.2 [facility] Comment on above: Critical Value > 4.0 PT Coag (Bld) [Time]Ordered By: Melo Shrestha on 07-25-2024 Bedside Prothrombin Time 24.3 SEC High 11.7-14.9 [facility] Whole blood prothrombin time Ordered By: Melo Shrestha on 07-25-2024 PT Coag (Bld) [Time] 24.3 s High 11.7-14.9 [facility] INR Coag (BldC) [Relative ti me]Ordered By: Melo Shrestha on 07-24-2024 INR Coag (Bld) [Relative time] 2.1 {INR} [facility] Comment on above: Critical Value > 4.0 International normalized rat io (INR) measurement by fingerstickOrdered By: Melo Shrestha on 07-24-2024 INR Coag (BldC) [Relative time] 2.1 [facility] Comment on above: Critical Value > 4.0 PT Coag (Bld) [Time]Ordered By: Melo Shrestha on 07-24-2024 Bedside Prothrombin Time 23.3 SEC High 11.7-14.9 [facility] Whole blood prothrombin time Ordered By: Melo Shrestha on 07-24-2024 PT Coag (Bld) [Time] 23.3 s High 11.7-14.9 [facility] International normalized rat io (INR) calculationOrdered By: Melo Shrestha on 2024 INR Coag (Bld) [Relative time] 1.9 {INR} [facility] Prothrombin timeOrdered By: Melo Shrestha on 2024 PT Coag (PPP) [Time] 22.5 s High 11.7-14.9 [facility] International normalized rat io (INR) calculationOrdered By: Melo Shrestha on 07-18-2024 INR Coag (Bld) [Relative time] 2.2 {INR} [facility] Prothrombin timeOrdered By: Melo Shrestha on 07-18-2024 PT Coag (PPP) [Time] 25.3 s High 11.7-14.9 [facility] INR Coag (BldC) [Relative ti me]Ordered By: Melo Shrestha on 07-17-2024 INR Coag (Bld) [Relative time] 1.6 {INR} [facility] Comment on above: Critical Value > 4.0 International normalized rat io (INR) measurement by fingerstickOrdered By: Melo Shrestha on 07-17-2024 INR Coag (BldC) [Relative time] 1.6 [facility] Comment on above: Critical Value > 4.0 PT Coag (Bld) [Time]Ordered By: Melo Shrestha on 07-17-2024 Bedside Prothrombin Time 18.3 SEC High 11.7-14.9 [facility] Whole blood prothrombin time Ordered By: Melo Shrestha on 07-17-2024 PT Coag (Bld) [Time] 18.3 s High 11.7-14.9 [facility] International normalized rat io (INR) calculationOrdered By: Melo Shrestha on 07-16-2024 INR Coag (Bld) [Relative time] 1.9 {INR} [facility] Prothrombin timeOrdered By: Melo Shrestha on 07-16-2024 PT Coag (PPP) [Time] 22.3 s High 11.7-14.9 [facility] International normalized rat io (INR) calculationOrdered By: Melo Shrestha on 07-15-2024 INR Coag (Bld) [Relative time] 1.8 {INR} [facility] Prothrombin timeOrdered By: Melo Shrestha on 07-15-2024 PT Coag (PPP) [Time] 21.5 s High 11.7-14.9 [facility] INR Coag (BldC) [Relative ti me]Ordered By: Melo Shrestha on 07-12-2024 INR Coag (Bld) [Relative time] 1.7 {INR} [facility] Comment on above: Critical Value > 4.0 International normalized rat io (INR) measurement by fingerstickOrdered By: Melo Shrestha on 07-12-2024 INR Coag (BldC) [Relative time] 1.7 [facility] Comment on above: Critical Value > 4.0 PT Coag (Bld) [Time]Ordered By: Melo Shrestha on 07-12-2024 Bedside Prothrombin Time 18.8 SEC High 11.7-14.9 [facility] Whole blood prothrombin time Ordered By: Melo Shrestha on 07-12-2024 PT Coag (Bld) [Time] 18.8 s High 11.7-14.9 [facility] International normalized rat io (INR) calculationOrdered By: Melo Shrestha on 07-09-2024 INR Coag (Bld) [Relative time] 2.1 {INR} [facility] Prothrombin timeOrdered By: Melo Shrestha on 07-09-2024 PT Coag (PPP) [Time] 23.8 s High 11.7-14.9 [facility] INR Coag (BldC) [Relative ti me]Ordered By: Melo Shrestha on 07-08-2024 INR Coag (Bld) [Relative time] 1.9 {INR} [facility] Comment on above: Critical Value > 4.0 International normalized rat io (INR) measurement by fingerstickOrdered By: Melo Shrestha on 07-08-2024 INR Coag (BldC) [Relative time] 1.9 [facility] Comment on above: Critical Value > 4.0 PT Coag (Bld) [Time]Ordered By: Melo Shrestha on 07-08-2024 Bedside Prothrombin Time 21.2 SEC High 11.7-14.9 [facility] Whole blood prothrombin time Ordered By: Melo Shrestha on 07-08-2024 PT Coag (Bld) [Time] 21.2 s High 11.7-14.9 [facility] INR Coag (BldC) [Relative ti me]Ordered By: Melo Shrestha on 07-05-2024 INR Coag (Bld) [Relative time] 1.2 {INR} [facility] Comment on above: Critical Value > 4.0 International normalized rat io (INR) measurement by fingerstickOrdered By: Melo Shrestha on 07-05-2024 INR Coag (BldC) [Relative time] 1.2 [facility] Comment on above: Critical Value > 4.0 PT Coag (Bld) [Time]Ordered By: Melo Shrestha on 07-05-2024 Bedside Prothrombin Time 14.0 SEC 11.7-14.9 [facility] Whole blood prothrombin time Ordered By: Melo Shrestha on 07-05-2024 PT Coag (Bld) [Time] 14.0 s 11.7-14.9 [facility] International normalized rat io (INR) calculationOrdered By: Melo Shrestha on 07-04-2024 INR Coag (Bld) [Relative time] 1.3 {INR} [facility] Prothrombin timeOrdered By: Melo Shrestha on 07-04-2024 PT Coag (PPP) [Time] 16.4 s High 11.7-14.9 [facility] INR Coag (BldC) [Relative ti me]Ordered By: Melo Shrestha on 07-03-2024 INR Coag (Bld) [Relative time] 1.1 {INR} [facility] Comment on above: Critical Value > 4.0 International normalized rat io (INR) measurement by fingerstickOrdered By: Melo Shrestha on 07-03-2024 INR Coag (BldC) [Relative time] 1.1 [facility] Comment on above: Critical Value > 4.0 PT Coag (Bld) [Time]Ordered By: Melo Shrestha on 07-03-2024 Bedside Prothrombin Time 13.5 SEC 11.7-14.9 [facility] Whole blood prothrombin time Ordered By: Melo Shrestha on 07-03-2024 PT Coag (Bld) [Time] 13.5 s 11.7-14.9 [facility] International normalized rat io (INR) calculationOrdered By: Melo Shrestha on 07-02-2024 INR Coag (Bld) [Relative time] 1.1 {INR} [facility] Prothrombin timeOrdered By: Melo Shrestha on 07-02-2024 PT Coag (PPP) [Time] 14.7 s 11.7-14.9 [facility] INR Coag (BldC) [Relative ti me]Ordered By: Melo Shrestha on 07-01-2024 INR Coag (Bld) [Relative time] 1.2 {INR} [facility] Comment on above: Critical Value > 4.0 International normalized rat io (INR) measurement by fingerstickOrdered By: Melo Shrestha on 07-01-2024 INR Coag (BldC) [Relative time] 1.2 [facility] Comment on above: Critical Value > 4.0 PT Coag (Bld) [Time]Ordered By: Melo Shrestha on 07-01-2024 Bedside Prothrombin Time 13.8 SEC 11.7-14.9 [facility] Whole blood prothrombin time Ordered By: Melo Shrestha on 07-01-2024 PT Coag (Bld) [Time] 13.8 s 11.7-14.9 [facility] Absolute lymphocyte countOrd ered By: Melo Shrestha on 06-17-2024 Lymphocytes Auto (Unsp spec) [#/Vol] 1.14 10*3/uL 0.83-4.51 [facility] Absolute neutrophil countOrd ered By: Melo Shrestha on 06-17-2024 Neutrophils (Bld) [#/Vol] 3.1 10*3/uL 2.0-7.7 [facility] Albumin to globulin ratioOrd ered By: Melo Shrestha on 06-17-2024 Albumin/Globulin [Mass ratio] 1.0 {ratio} 0.9-2.4 [facility] Automated lymphocyte count a s percentage of total leukocytesOrdered By: Melo Shrestha on 06-17-2024 Lymphocytes/100 WBC Auto (Unsp spec) 23.9 % 19-41 [facility] Basophil percentageOrdered B y: Melo Shrestha on 06-17-2024 Basophils/100 WBC (Bld) 0.6 % 0-1 [facility] Bilirubin, totalOrdered By: Melo Shrestha on 06-17-2024 Bilirubin [Mass/Vol] 0.50 mg/dL 0.20-1.00 [facility] Comment on above: For patients on eltr ombopag therapy, use of Dimension [place] TBIL is not recommended. Blood urea nitrogen (BUN)/cr eatinine ratioOrdered By: Melo Shrestha on 06-17-2024 Urea nitrogen/Creatinine [Mass ratio] 20.8 mg/mg High 10-20 [facility] Carbon dioxide measurementOr dered By: Melo Shrestha on 06-17-2024 CO2 [Moles/Vol] 29.0 mmol/L 21.0-32.0 [facility] Chloride measurementOrdered By: Melo Shrestha on 06-17-2024 Chloride [Moles/Vol] 107 mmol/L 98-107 [facility] Eosinophil percentageOrdered By: Melo Shrestha on 06-17-2024 Eosinophils/100 WBC (Bld) 2.5 % 0-5 [facility] Erythrocyte distribution wid th ratioOrdered By: Melo Shrestha on 06-17-2024 Erythrocyte distribution width (RBC) [Ratio] 12.5 % 11.6-14.6 [facility] Erythrocyte distribution wid th standard deviationOrdered By: Melo Shrestha on 06-17-2024 Erythrocyte distribution width (RBC) [Entitic vol] 43.2 fL 35.1-43.9 [facility] Erythrocyte distribution width (RBC) [Ratio] 43.2 fl 35.1-43.9 [facility] Estimated glomerular filtrat ion rate (GFR) AmericanOrdered By: Melo Shrestha on 06-17-2024 Estimated GFR (MDRD) Amer 116 mL/min >60 [facility] Comment on above: GFR Calc Glomerular filtration rate ( GFR) estimationOrdered By: Melo Shrestha on 06-17-2024 Estimated GFR (MDRD) Non-Af Amer 96 mL/min >60 [facility] Comment on above: Non- GFR Calc GFR/1.73 sq M.predicted among non-blacks MDRD (S/P/Bld) [Vol rate/Area] 96 mL/min/{1.73_m2} >60 [facility] Comment on above: Non- GFR Calc Glucose measurementOrdered B y: Melo Shrestha on 06-17-2024 Glucose [Mass/Vol] 113 mg/dL High 74-106 [facility] Comment on above: Fasting Glucose resu lt from 100 to 125 mg/dL suggests IMPAIRED HOMEOSTASIS per A.D.A. criteria. Hematocrit Auto (Bld) [Volum e fraction]Ordered By: Melo Shrestha on 06-17-2024 Hematocrit (Bld) [Volume fraction] 37.9 % 37-47 [facility] Hemoglobin measurementOrdere d By: Melo Shrestha on 06-17-2024 Hemoglobin (Bld) [Mass/Vol] 12.1 g/dL 12.0-15.0 [facility] Immature granulocytes/100 WB C Auto (Bld)Ordered By: Melo Shrestha on 06-17-2024 Immature granulocytes/100 WBC (Bld) 0.200 % 0.0-0.9 [facility] Comment on above: IG% - Immature Granu locytes (promyelocytes, myelocytes and metamyelocytes) > 1% indicates that a LEFT SHIFT is Present. Laboratory - Chemistry and C hemistry - challengeOrdered By: Melo Shrestha on 06-17-2024 AST [Catalytic activity/Vol] 16 U/L 15-37 [facility] Lymphocytes Auto (Unsp spec) [#/Vol]Ordered By: Melo Shrestha on 06-17-2024 Lymphocytes (Bld) [#/Vol] 1.14 10*3/uL 0.83-4.51 [facility] Lymphocytes/100 WBC Auto (Un sp spec)Ordered By: Melo Shrestha on 06-17-2024 Lymphocytes/100 WBC (Bld) 23.9 % 19-41 [facility] MCV (mean corpuscular volume ) determinationOrdered By: Melo Shrestha on 06-17-2024 MCV (RBC) [Entitic vol] 94.0 fL 81-99 [facility] Mean corpuscular hemoglobin (MCH) determinationOrdered By: Melo Shrestha on 06-17-2024 MCH (RBC) [Entitic mass] 30.0 pg 27.0-32.0 [facility] Mean corpuscular hemoglobin concentration (MCHC) determinationOrdered By: Melo Shrestha on 06-17-2024 MCHC (RBC) [Mass/Vol] 31.9 g/dL Low 32-36 [facility] Mean platelet volume determi nationOrdered By: Melo Shrestha on 06-17-2024 Platelet mean volume (Bld) [Entitic vol] 10.1 fL 6.2-12.0 [facility] Monocyte percentageOrdered B y: Melo Shrestha on 06-17-2024 Monocytes/100 WBC (Bld) 8.0 % 0-10 [facility] Neutrophil percentageOrdered By: Melo Shrestha on 06-17-2024 Neutrophils/100 WBC (Bld) 64.8 % 47-70 [facility] Nucleated red blood cell per centageOrdered By: Melo Shrestha on 06-17-2024 Nucleated RBC/100 WBC (Bld) [Ratio] 0 % 0-5 [facility] Platelet countOrdered By: Bennie Shrestha on 06-17-2024 Platelets (Bld) [#/Vol] 188 10*3/uL 150-450 [facility] Potassium measurementOrdered By: Melo Shrestha on 06-17-2024 Potassium [Moles/Vol] 4.3 mmol/L 3.5-5.1 [facility] RBC Auto (Bld) [#/Vol]Ordere d By: Melo Shrestha on 06-17-2024 RBC (Bld) [#/Vol] 4.03 10*6/uL Low 4.2-5.4 [facility] Serum anion gap measurementO rdered By: Melo Shrestha on 06-17-2024 Anion gap [Moles/Vol] 3 mmol/L Low 5-15 [facility] Serum globulin measurementOr dered By: Melo Shrestha on 06-17-2024 Globulin (S) [Mass/Vol] 3.2 g/dL 2.2-4.2 [facility] Serum or plasma alanine dudley otransferase (ALT) measurementOrdered By: Melo Shrestha on 06-17-2024 ALT [Catalytic activity/Vol] 7 U/L Low 13-56 [facility] Serum or plasma albumin josué urement (mass/volume)Ordered By: Melo Shrestha on 06-17-2024 Albumin [Mass/Vol] 3.1 g/dL Low 3.2-5.0 [facility] Serum or plasma alkaline juventino sphatase measurementOrdered By: Melo Shrestha on 06-17-2024 ALP [Catalytic activity/Vol] 56 U/L 45-117 [facility] Serum or plasma calcium josué urement (mass/volume)Ordered By: Melo Shrestha on 06-17-2024 Calcium [Mass/Vol] 8.9 mg/dL 8.5-10.1 [facility] Serum or plasma creatinine m easurement (mass/volume)Ordered By: Melo Shrestha on 06-17-2024 Creatinine [Mass/Vol] 0.62 mg/dL 0.55-1.02 [facility] Comment on above: The validity of the calculated GFR & GFRAA in patients over 70 years has not been determined. Clinical correlation is essential. Serum or plasma urea nitroge n measurement (mass/volume)Ordered By: Melo Shrestha on 06-17-2024 Urea nitrogen [Mass/Vol] 13 mg/dL 7-18 [facility] Sodium levelOrdered By: Neo Shrestha on 06-17-2024 Sodium [Moles/Vol] 140 mmol/L 136-145 [facility] Total proteinOrdered By: Enoc Shrestha on 06-17-2024 Protein [Mass/Vol] 6.3 g/dL Low 6.4-8.2 [facility] White blood cell (WBC) count Ordered By: Melo Shrestha on 06-17-2024 WBC (Bld) [#/Vol] 4.8 10*3/uL 4.4-11.0 [facility] Bilirubin Test strip Ql (U)O rdered By: Melo Shrestha on 06-16-2024 Bilirubin Ql (U) Negative Negative [facility] Epithelial cells.squamous LM Ql (Urine sed)Ordered By: Melo Shrestha on 06-16-2024 Epithelial cells.squamous LM.HPF (Urine sed) [#/Area] 0 /[HPF] 5-10 [facility] Glucose Ql (U)Ordered By: Bennie Shrestha on 06-16-2024 Urine Glucose (UA) Normal mg/dl Normal [facility] Ketones Test strip Ql (U)Ord ered By: Melo Shrestha on 06-16-2024 Ketones Ql (U) Negative Negative [facility] Microscopic analysis of urin e for red blood cells (RBC)Ordered By: Melo Shrestha on 06-16-2024 Microscopic analysis of urine for red blood cells (RBC) 0 SEEN /hpf 0-5 [facility] Urine RBC 0 SEEN /hpf 0-5 [facility] Mucus LM Ql (Urine sed)Order ed By: Melo Shrestha on 06-16-2024 Mucus Ql (Urine sed) 0 SEEN /hpf [facility] Nitrite Test strip Ql (U)Ord ered By: Melo Shrestha on 06-16-2024 Nitrite Ql (U) Negative Negative [facility] Protein Test strip Ql (U)Ord ered By: Melo Shrestha on 06-16-2024 Protein Ql (U) Negative Negative [facility] Squamous epithelial cells de tection in urine sediment by light microscopyOrdered By: Meol Shrestha on 06-16-2024 Epithelial cells.squamous LM Ql (Urine sed) 0 SEEN /hpf 5-10 [facility] Urine blood detectionOrdered By: Melo Shrestha on 06-16-2024 Urine Occult Blood Negative Negative [facility] Urine clarityOrdered By: Enoc Shrestha on 06-16-2024 Clarity (U) Clear Clear [facility] Urine color determinationOrd ered By: Melo Shrestha on 06-16-2024 Color (U) Straw Yellow [facility] Urine cultureOrdered By: Enoc Shrestha on 06-16-2024 Bacteria identified Cx Nom (U) Culture exhibits no growth. [facility] Bacteria identified Cx Nom (U) Culture exhibits no growth. [facility] Urine glucose detectionOrder ed By: Melo Shrestha on 06-16-2024 Glucose Ql (U) Normal mg/dl Normal [facility] Urine leukocyte esterase det ection by dipstickOrdered By: Melo Shrestha on 06-16-2024 Leukocyte esterase Test strip Ql (U) Negative Negative [facility] Urine pHOrdered By: Melo flores on 06-16-2024 pH (U) 7.0 [pH] 5.0 - 8.0 [facility] Urine sediment bacteria coun t by microscopy (number/high power field)Ordered By: Melo Shrestha on 06-16-2024 Bacteria LM.HPF (Urine sed) [#/Area] 0 /[HPF] None Seen [facility] Urine specific gravity measu rementOrdered By: Melo Shrestha on 06-16-2024 Specific gravity (U) [Rel density] 1.005 1.002-1.030 [facility] Urine urobilinogen measureme ntOrdered By: Melo Shrestha on 06-16-2024 Urobilinogen Ql (U) Normal mg/dl Normal [facility] Urobilinogen Ql (U)Ordered B y: Melo Shrestha on 06-16-2024 Urine Urobilinogen Normal mg/dl Normal [facility] White blood cell countOrdere d By: Melo Shrestha on 06-16-2024 Urine WBC 0 SEEN /hpf 0-5 [facility] White blood cell count 0 SEEN /hpf 0-5 [facility] Blood urea nitrogen (BUN)/cr eatinine ratioOrdered By: Melo Shrestha on 04-04-2024 Urea nitrogen/Creatinine [Mass ratio] 20.8 mg/mg High 10-20 [facility] Carbon dioxide measurementOr dered By: Melo Shrestha on 04-04-2024 CO2 [Moles/Vol] 29.0 mmol/L 21.0-32.0 [facility] Chloride measurementOrdered By: Melo Shrestha on 04-04-2024 Chloride [Moles/Vol] 105 mmol/L 98-107 [facility] Direct serum free thyroxine (FT4) measurementOrdered By: Melo Shrestha on 04-04-2024 Free T4 [Mass/Vol] 0.92 ng/dL 0.76-1.46 [facility] Erythrocyte distribution wid th ratioOrdered By: Melo Shrestha on 04-04-2024 Erythrocyte distribution width (RBC) [Ratio] 12.8 % 11.6-14.6 [facility] Erythrocyte distribution wid th standard deviationOrdered By: Melo Shrestha on 04-04-2024 Erythrocyte distribution width (RBC) [Entitic vol] 44.6 fL High 35.1-43.9 [facility] Estimated glomerular filtrat ion rate (GFR) AmericanOrdered By: Melo Shrestha on 04-04-2024 Estimated GFR (MDRD) Amer 116 mL/min >60 [facility] Comment on above: GFR Calc Glomerular filtration rate ( GFR) estimationOrdered By: Melo Shrestha on 04-04-2024 Estimated GFR (MDRD) Non-Af Amer 96 mL/min >60 [facility] Comment on above: Non- GFR Calc Glucose measurementOrdered B y: Melo Shrestha on 04-04-2024 Glucose [Mass/Vol] 102 mg/dL 74-106 [facility] Comment on above: Fasting Glucose resu lt from 100 to 125 mg/dL suggests IMPAIRED HOMEOSTASIS per A.D.A. criteria. Hematocrit Auto (Bld) [Volum e fraction]Ordered By: Melo Shrestha on 04-04-2024 Hematocrit (Bld) [Volume fraction] 37.1 % 37-47 [facility] Hemoglobin measurementOrdere d By: Melo Shrestha on 04-04-2024 Hemoglobin (Bld) [Mass/Vol] 11.8 g/dL Low 12.0-15.0 [facility] MCV (mean corpuscular volume ) determinationOrdered By: Melo Shrestha on 04-04-2024 MCV (RBC) [Entitic vol] 94.9 fL 81-99 [facility] Mean corpuscular hemoglobin (MCH) determinationOrdered By: Melo Shrsetha on 04-04-2024 MCH (RBC) [Entitic mass] 30.2 pg 27.0-32.0 [facility] Mean corpuscular hemoglobin concentration (MCHC) determinationOrdered By: Melo Shrestha on 04-04-2024 MCHC (RBC) [Mass/Vol] 31.8 g/dL Low 32-36 [facility] Mean platelet volume determi nationOrdered By: Melo Shrestha on 04-04-2024 Platelet mean volume (Bld) [Entitic vol] 9.4 fL 6.2-12.0 [facility] Platelet countOrdered By: Bennie Shrestha on 04-04-2024 Platelets (Bld) [#/Vol] 294 10*3/uL 150-450 [facility] Potassium measurementOrdered By: Melo Shrestha on 04-04-2024 Potassium [Moles/Vol] 4.0 mmol/L 3.5-5.1 [facility] RBC Auto (Bld) [#/Vol]Ordere d By: Melo Shrestha on 04-04-2024 RBC (Bld) [#/Vol] 3.91 10*6/uL Low 4.2-5.4 [facility] Serum anion gap measurementO rdered By: Melo Shrestha on 04-04-2024 Anion gap [Moles/Vol] 3 mmol/L Low 5-15 [facility] Serum or plasma calcium josué urement (mass/volume)Ordered By: Melo Shrestha on 04-04-2024 Calcium [Mass/Vol] 8.7 mg/dL 8.5-10.1 [facility] Serum or plasma creatinine m easurement (mass/volume)Ordered By: Melo Shrestha on 04-04-2024 Creatinine [Mass/Vol] 0.62 mg/dL 0.55-1.02 [facility] Comment on above: The validity of the calculated GFR & GFRAA in patients over 70 years has not been determined. Clinical correlation is essential. Serum or plasma urea nitroge n measurement (mass/volume)Ordered By: Melo Shrestha on 04-04-2024 Urea nitrogen [Mass/Vol] 13 mg/dL 7-18 [facility] Serum prealbumin measurement by immunoassayOrdered By: Melo Shrestha on 04-04-2024 Prealbumin [Mass/Vol] 16 mg/dL 9-32 [facility] Comment on above: Performed at: [address] [id number] Director: Rolando Bocanegra PhD, Phone: [phone] Sodium levelOrdered By: Neo Shrestha on 04-04-2024 Sodium [Moles/Vol] 137 mmol/L 136-145 [facility] TSH QnOrdered By: Melo wyatt on 04-04-2024 Thyroid Stimulating Hormone (TSH) 1.710 uIU/mL 0.358-3.740 [facility] White blood cell (WBC) count Ordered By: Melo Shrestha on 04-04-2024 WBC (Bld) [#/Vol] 4.9 10*3/uL 4.4-11.0 [facility] Chest 1 View (Portable)on Chest 1 View (Portable) [facility] Imaging Services [address] [place] [address] [id number] Chest 1 View (Portable) MR#: [id number] Acct: [id number] Name: COLETTE RICHARDSON Soheila Rep #: [id number] : 1935 F 88 From: Tyrel Pierson PCP: Dr. Melo Shrestha MD Status: REG ER Study: Chest 1 View (Portable) Date of Exam: 03/24/24 Exam# [id number] Ordering Dr: Serge Gómez DO [id number] INDICATION: Cough EXAMINATION/TECHNIQUE : X-RAY - XR Chest 1 View COMPARISON: Prior study dated: 1922 __ FINDINGS: LINES/DEVICES: None. LUNGS: No consolidation, edema or effusion. No pneumothorax. MEDIASTINUM AND CARDIOVASCULAR STRUCTURES: Stable cardiomediastinal silhouette. Status post median sternotomy and CABG. BONES AND SOFT TISSUES: Unremarkable. RAD/Chest 1 View (Portable) IMPRESSION: No radiographic evidence of acute cardiopulmonary disease. Electronically Signed: Tyrel Diaz MD at 13:11 EDT , CC: Dr. Serge Gómez DO; Dr. 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 Rheumatoid arthritis Parkinsonian syndrome History of pulmonary embolus (PE) Postoperative atrial fibrillation (04/04/13) Recurrent deep vein thrombosis (DVT) Hypercoagulable state History of non-ST elevation myocardial infarction (NSTEMI) (10/01/16) Atherosclerotic heart disease of [place] coronary artery without angina pectoris Paroxysmal atrial [...] QHS PRN PRN 11/10/21 06/15/22 11:30 Rx Anxiety/Restlessness/ Sleep #0 tabs potassium chloride 20 mEq 20 [...] (From AdvReac Itching Verified 03/24/24 11:05 Vicodin) [id number] Reductase AdvReac Other Verified 03/24/24 11:05 Inhibitor (Obxlpoh-Cuq-Zzs Reductase Inhibitor) Surgical History History of coronary [...] Cardiovascular Cardiov (more content not included)... Normal [facility] Extremity Lower without Cont raon 03-24-2024 Extremity Lower without Contra [facility] Imaging Services [address] [place] [address] Extremity Lower without Contra MR#: [id number] Acct: [id number] Name: COLETTE RICHARDSON Rep #: [id number] : 1935 F 88 From: Tyrel Pierson PCP: Dr. Melo Shrestha MD Status: REG ER Study: Extremity Lower without Contra Date of Exam: 1 Exam# [id number] Ordering Dr: Serge Gómez DO [id number] STUDY: CT RIGHT HIP REASON FOR EXAM: [...] Serge Gómez DO; Dr. Melo Shrestha MD Slide Maker: Signed Normal [facility] HIP, UNI W/ Pelvis 2-3 Views on 03-24-2024 HIP, UNI W/ Pelvis 2-3 Views [facility] Imaging Services [address] [place] [address] [phone] HIP, UNI W/ Pelvis 2-3 Views MR#: [id number] Acct: [id number] Name: COLETTE RICHARDSON Rep #: [id number] : 1935 F 88 From: Tyrle Pierson PCP: Dr. Melo Shrestha MD Status: [facility] Study: HIP, UNI W/ Pelvis 2-3 Views Date of Exam: Exam# [id number] Ordering Dr: Serge Gómez DO [id number] INDICATION: Injury/Pain EXAMINATION/TECHNIQUE : X-RAY - XR Hip Unilateral with Pelvis when performed; 2-3 Views COMPARISON: Prior study dated: 06/17/2021 __ FINDINGS: PELVIC BONES: No displaced fracture, destructive [...] Serge Gómez, ; Dr. Melo Shrestha MD Slide Maker: Signed Normal [facility] - CoagulationOrde red By: Joao Simon on 09-11-2023 INR Coag (Bld) [Relative time] 2.3 {INR} [facility] PT Coag (PPP) [Time] 25.2 s 11.7-14.9 [facility] Capillary blood internationa l normalized ratio (INR)Ordered By: Joao Simon on 08-30-2023 INR Coag (BldC) [Relative time] 1.9 [facility] Comment on above: Critical Value > 4.0 Whole blood prothrombin time Ordered By: Joao Simon on 08-30-2023 PT Coag (Bld) [Time] 19.9 s 11.7-14.9 [facility] Laboratory - CoagulationOrde red By: Joao Simon on 08-09-2023 INR Coag (Bld) [Relative time] 2.7 {INR} [facility] PT Coag (PPP) [Time] 28.2 s 11.7-14.9 [facility] Laboratory - CoagulationOrde red By: Joao Simon on 07-26-2023 INR Coag (Bld) [Relative time] 2.7 {INR} [facility] PT Coag (PPP) [Time] 28.2 s 11.7-14.9 [facility] Laboratory - CoagulationOrde red By: Joao Simon on 07-11-2023 INR Coag (Bld) [Relative time] 2.8 {INR} [facility] PT Coag (PPP) [Time] 30.2 s 11.7-14.9 [facility] Capillary blood internationa l normalized ratio (INR)Ordered By: Joao Simon on 06-28-2023 INR Coag (BldC) [Relative time] 2.6 [facility] Comment on above: Critical Value > 4.0 Whole blood prothrombin time Ordered By: Joao Simon on 06-28-2023 PT Coag (Bld) [Time] 27.9 s 11.7-14.9 [facility] Capillary blood internationa l normalized ratio (INR)Ordered By: Joao Simon on 06-14-2023 INR Coag (BldC) [Relative time] 1.8 [facility] Comment on above: Critical Value > 4.0 Whole blood prothrombin time Ordered By: Joao Simon on 06-14-2023 PT Coag (Bld) [Time] 19.7 s 11.7-14.9 [facility] Laboratory - CoagulationOrde red By: Joao Simon on 05-31-2023 INR Coag (Bld) [Relative time] 2.5 {INR} [facility] Comment on above: Critical Value > 4.0 Whole blood prothrombin time Ordered By: Joao Simon on 05-31-2023 PT Coag (Bld) [Time] 26.7 s 11.7-14.9 [facility] Laboratory - CoagulationOrde red By: Joao Simon on 05-23-2023 INR Coag (Bld) [Relative time] 3.4 {INR} [facility] Comment on above: Critical Value > 4.0 Whole blood prothrombin time Ordered By: Joao Simon on 05-23-2023 PT Coag (Bld) [Time] 36.3 s 11.7-14.9 [facility] Laboratory - CoagulationOrde red By: Joao Simon on 05-08-2023 INR Coag (Bld) [Relative time] 2.4 {INR} [facility] Comment on above: Critical Value > 4.0 Whole blood prothrombin time Ordered By: Joao Simon on 05-08-2023 PT Coag (Bld) [Time] 26.0 s 11.7-14.9 [facility] Laboratory - CoagulationOrde red By: Joao Simon on 04-06-2023 INR Coag (Bld) [Relative time] 2.8 {INR} [facility] Comment on above: Critical Value > 4.0 Whole blood prothrombin time Ordered By: Joao Simon on 04-06-2023 PT Coag (Bld) [Time] 29.8 s 11.7-14.9 [facility] Basophil percentageOrdered B y: Joao Simon on 03-06-2023 Cholesterol [Mass/Vol] 113 mg/dL <200 [facility] Comment on above: <200 mg/dL Desirable 200-240 mg/dL Borderline >240 mg/dL High Risk Triglyceride [Mass/Vol] 82 mg/dL <199 [facility] Comment on above: The drugs N-Acetylcy steine and Metamizole may falsely depress this assay.Serum Triglycerides Reference Interval Normal <150 mg/dL Borderline high 150 - 199 mg/dL High 200 - 499 mg/dL Very High > or = 500 mg/dL WBC (Bld) [#/Vol] 5.8 10*3/uL 4.4-11.0 [facility] Blood erythrocytes count (nu mber/volume)Ordered By: Joao Simon on 03-06-2023 RBC (Bld) [#/Vol] 3.97 10*6/uL 4.2-5.4 [facility] Blood hemoglobin measurement (mass/volume)Ordered By: Joao Simon on 03-06-2023 Hemoglobin (Bld) [Mass/Vol] 12.1 g/dL 12.0-15.0 [facility] Blood platelet mean volumeOr dered By: Joao Simon on 03-06-2023 Platelet mean volume (Bld) [Entitic vol] 10.9 fL 6.2-12.0 [facility] Determination of erythrocyte mean corpuscular volume (MCV)Ordered By: Joao Simon on 03-06-2023 MCV (RBC) [Entitic vol] 96.5 fL 81-99 [facility] Hematocrit Auto (Bld) [Volum e fraction]Ordered By: Joao Simon on 03-06-2023 Hematocrit (Bld) [Volume fraction] 38.3 % 37-47 [facility] Laboratory - Hematology and Cell countsOrdered By: Joao Simon on 03-06-2023 Erythrocyte distribution width (RBC) [Entitic vol] 44.8 fL 35.1-43.9 [facility] Erythrocyte distribution width (RBC) [Ratio] 12.7 % 11.6-14.6 [facility] MCH (RBC) [Entitic mass] 30.5 pg 27.0-32.0 [facility] MCHC Auto (RBC) [Mass/Vol]Or dered By: Joao Simon on 03-06-2023 MCHC (RBC) [Mass/Vol] 31.6 g/dL 32-36 [facility] No Panel InformationOrdered By: Joao Simon on 03-06-2023 Thyroid Stimulating Hormone (TSH) 1.71 uIU/mL 0.358-3.74 [facility] Platelets bldOrdered By: Brittany Simon on 03-06-2023 Platelets (Bld) [#/Vol] 195 10*3/uL 150-450 [facility] Serum or plasma cholesterol in HDL measurement (mass/volume)Ordered By: Joao Simon on 03-06-2023 Cholesterol in HDL [Mass/Vol] 44 mg/dL >40 [facility] Comment on above: The drugs N-Acetylcy steine and Metamizole may falsely depress this assay. Reference Range HDL <40 mg/dL Low HDL Cholesterol HDL >or= 60 mg/dL High HDL Cholesterol Serum or plasma cholesterol in VLDL measurement (mass/volume)Ordered By: Joao Simon on 03-06-2023 Cholesterol in VLDL [Mass/Vol] 16 mg/dL 5-40 [facility] Serum or plasma low density lipoprotein (LDL) cholesterol measurement (mass/volume)Ordered By: Joao Simon on 03-06-2023 Cholesterol in LDL [Mass/Vol] 53 mg/dL 0-130 [facility] - CoagulationOrde red By: Joao Simon on 02-21-2023 INR Coag (Bld) [Relative time] 3.1 {INR} [facility] Comment on above: Critical Value > 4.0 Whole blood prothrombin time Ordered By: Joao Simon on 02-21-2023 PT Coag (Bld) [Time] 32.7 s 11.7-14.9 [facility] Laboratory - CoagulationOrde red By: Joao Simon on 02-14-2023 INR Coag (Bld) [Relative time] 1.9 {INR} [facility] Comment on above: Critical Value > 4.0 Whole blood prothrombin time Ordered By: Joao Simon on 02-14-2023 PT Coag (Bld) [Time] 21.2 s 11.7-14.9 [facility] INR in Blood by Coagulation assayOrdered By: Joao Simon on 02-07-2023 INR Coag (Bld) [Relative time] 4.3 {INR} [facility] - Chemistry and C hemistry - challengeOrdered By: Joao Simon on 02-07-2023 Cobalamin (Vitamin B12) [Mass/Vol] 243 pg/mL 211-911 [facility] - CoagulationOrde red By: Joao Simon on 02-07-2023 PT Coag (PPP) [Time] 41.7 s 11.7-14.9 [facility] Absolute lymphocyte countOrd ered By: Matt Coy on 02-02-2023 Lymphocytes Auto (Unsp spec) [#/Vol] 1.73 10*3/uL 0.83-4.51 [facility] Basophil percentageOrdered B y: Matt Coy on 02-02-2023 Basophil percentage 0-5 SEEN /hpf 0-5 [facility] Basophils/100 WBC (Bld) 0.6 % 0-1 [facility] Bilirubin [Mass/Vol] 0.30 mg/dL 0.20-1.00 [facility] Comment on above: For patients on eltr ombopag therapy, use of [employer] [place] TBIL is not recommended. Chloride [Moles/Vol] 104 mmol/L 98-107 [facility] Eosinophils/100 WBC (Bld) 1.7 % 0-5 [facility] Glucose [Mass/Vol] 133 mg/dL 74-106 [facility] Comment on above: Fasting Glucose resu lt greater than or equal to 126 mg/dL suggests DIABETES MELLITUS per A.D.A. criteria. Neutrophils (Bld) [#/Vol] 4.6 10*3/uL 2.0-7.7 [facility] Neutrophils/100 WBC (Bld) 65.1 % 47-70 [facility] Potassium [Moles/Vol] 4.5 mmol/L 3.5-5.1 [facility] Protein [Mass/Vol] 6.9 g/dL 6.4-8.2 [facility] Sodium [Moles/Vol] 137 mmol/L 136-145 [facility] WBC (Bld) [#/Vol] 7.1 10*3/uL 4.4-11.0 [facility] Bilirubin Test strip Ql (U)O rdered By: Matt Coy on 02-02-2023 Bilirubin Ql (U) Negative Negative [facility] Blood erythrocytes count (nu mber/volume)Ordered By: Matt Coy on 02-02-2023 RBC (Bld) [#/Vol] 4.68 10*6/uL 4.2-5.4 [facility] Blood hemoglobin measurement (mass/volume)Ordered By: Matt Coy on 02-02-2023 Hemoglobin (Bld) [Mass/Vol] 14.3 g/dL 12.0-15.0 [facility] Blood lymphocytes/100 leukoc ytesOrdered By: Matt Coy on 02-02-2023 Lymphocytes/100 WBC (Bld) 24.4 % 19-41 [facility] Blood monocytes/100 leukocyt esOrdered By: Matt Coy on 02-02-2023 Monocytes/100 WBC (Bld) 7.9 % 0-10 [facility] Blood platelet mean volumeOr dered By: Matt Coy on 02-02-2023 Platelet mean volume (Bld) [Entitic vol] 10.3 fL 6.2-12.0 [facility] Determination of erythrocyte mean corpuscular volume (MCV)Ordered By: Matt Coy on 02-02-2023 MCV (RBC) [Entitic vol] 94.0 fL 81-99 [facility] Hematocrit Auto (Bld) [Volum e fraction]Ordered By: Matt Coy on 02-02-2023 Hematocrit (Bld) [Volume fraction] 44.0 % 37-47 [facility] INR in Blood by Coagulation assayOrdered By: Matt Coy on 02-02-2023 INR Coag (Bld) [Relative time] 3.5 {INR} [facility] Ketones Test strip Ql (U)Ord ered By: Matt Coy on 02-02-2023 Ketones Ql (U) Negative Negative [facility] Laboratory - Chemistry and C hemistry - challengeOrdered By: Matt Coy on 02-02-2023 ALP [Catalytic activity/Vol] 73 U/L 45-117 [facility] ALT [Catalytic activity/Vol] 15 U/L 13-56 [facility] CO2 [Moles/Vol] 30.0 mmol/L 21.0-32.0 [facility] Globulin (S) [Mass/Vol] 3.7 g/dL 2.2-4.2 [facility] Lipase [Catalytic activity/Vol] 15 U/L 13-75 [facility] Comment on above: Please note:LIPASE r evised reference range effective 22. New Lipase methodology. Expected to produce lower values than the previous assay method. NEW Reference Range: 13 - 75 U/L Urea nitrogen/Creatinine [Mass ratio] 16.2 mg/mg 10-20 [facility] - CoagulationOrde red By: Matt Coy on 02-02-2023 PT Coag (PPP) [Time] 36.0 s 11.7-14.9 [facility] Laboratory - Hematology and Cell countsOrdered By: Matt Coy on 02-02-2023 Erythrocyte distribution width (RBC) [Entitic vol] 42.9 fL 35.1-43.9 [facility] Erythrocyte distribution width (RBC) [Ratio] 12.5 % 11.6-14.6 [facility] Immature granulocytes/100 WBC (Bld) 0.300 % 0.0-0.9 [facility] Comment on above: IG% - Immature Granu locytes (promyelocytes, myelocytes and metamyelocytes) > 1% indicates that a LEFT SHIFT is Present. MCH (RBC) [Entitic mass] 30.6 pg 27.0-32.0 [facility] Nucleated RBC/100 WBC (Bld) [Ratio] 0 % 0-5 [facility] MCHC Auto (RBC) [Mass/Vol]Or dered By: Matt Coy on 02-02-2023 MCHC (RBC) [Mass/Vol] 32.5 g/dL 32-36 [facility] Mucus LM Ql (Urine sed)Order ed By: Matt Coy on 02-02-2023 Mucus Ql (Urine sed) 1+ /hpf [facility] Nitrite Test strip Ql (U)Ord ered By: Matt Coy on 02-02-2023 Nitrite Ql (U) Negative Negative [facility] No Panel InformationOrdered By: Matt Coy on 02-02-2023 Estimated GFR (MDRD) Amer 106 mL/min >60 [facility] Comment on above: GFR Calc Estimated GFR (MDRD) Non-Af Amer 87 mL/min >60 [facility] Comment on above: Non- GFR Calc Platelets bldOrdered By: Macey Coy on 02-02-2023 Platelets (Bld) [#/Vol] 216 10*3/uL 150-450 [facility] Protein Test strip Ql (U)Ord ered By: Matt Coy on 02-02-2023 Protein Ql (U) Negative Negative [facility] Serum or plasma albumin josué urement (mass/volume)Ordered By: Matt Coy on 02-02-2023 Albumin [Mass/Vol] 3.2 g/dL 3.2-5.0 [facility] Serum or plasma albumin/glob ulin mass ratioOrdered By: Matt Coy on 02-02-2023 Albumin/Globulin [Mass ratio] 0.9 {ratio} 0.9-2.4 [facility] Serum or plasma calcium josué urement (mass/volume)Ordered By: Matt Coy on 02-02-2023 Calcium [Mass/Vol] 8.9 mg/dL 8.5-10.1 [facility] Serum or plasma creatinine m easurement (mass/volume)Ordered By: Matt Coy on 02-02-2023 Creatinine [Mass/Vol] 0.68 mg/dL 0.55-1.02 [facility] Comment on above: The validity of the calculated GFR & GFRAA in patients over 70 years has not been determined. Clinical correlation is essential. Serum or plasma urea nitroge n measurement (mass/volume)Ordered By: Matt Coy on 02-02-2023 Urea nitrogen [Mass/Vol] 11 mg/dL 7-18 [facility] Squamous epithelial cells de tection in urine sediment by light microscopyOrdered By: Matt Coy on 02-02-2023 Epithelial cells.squamous LM Ql (Urine sed) 0 SEEN /hpf 5-10 [facility] Thin prep Papanicolaou smear with manual screeningOrdered By: Matt Coy on 02-02-2023 Thin prep Papanicolaou smear with manual screening 18 U/L 15-37 [facility] Thin prep Papanicolaou smear with manual screening 3 5-15 [facility] Urine blood detectionOrdered By: Matt Coy on 02-02-2023 RBC Ql (U) 25 /ul Negative [facility] RBC Ql (U) 0-5 SEEN /hpf 0-5 [facility] Urine clarityOrdered By: Macey Coy on 02-02-2023 Clarity (U) Clear Clear [facility] Urine color determinationOrd ered By: Matt Coy on 02-02-2023 Color (U) Yellow Yellow [facility] Urine glucose detectionOrder ed By: Matt Coy on 02-02-2023 Glucose Ql (U) Normal mg/dl Normal [facility] Urine leukocyte esterase det ection by dipstickOrdered By: Matt Coy on 02-02-2023 Leukocyte esterase Test strip Ql (U) 25 /ul Negative [facility] Urine pHOrdered By: Matt jacob on 02-02-2023 pH (U) 6.5 [pH] 5.0 - 8.0 [facility] Urine sediment bacteria coun t by microscopy (number/high power field)Ordered By: Matt Coy on 02-02-2023 Bacteria LM.HPF (Urine sed) [#/Area] 0 /[HPF] None Seen [facility] Urine specific gravity measu rementOrdered By: Matt Coy on 02-02-2023 Specific gravity (U) [Rel density] 1.015 1.002-1.030 [facility] Urobilinogen Auto test strip Ql (U)Ordered By: Matt Coy on 02-02-2023 Urobilinogen Ql (U) Normal mg/dl Normal [facility] Basophil percentageOrdered B y: Joao Simon on 01-03-2023 Sodium [Moles/Vol] 141 mmol/L 136-145 [facility] WBC (Bld) [#/Vol] 5.7 10*3/uL 4.4-11.0 [facility] Blood erythrocytes count (nu mber/volume)Ordered By: Joao Simon on 01-03-2023 RBC (Bld) [#/Vol] 4.44 10*6/uL 4.2-5.4 [facility] Blood hemoglobin measurement (mass/volume)Ordered By: Joao Simon on 01-03-2023 Hemoglobin (Bld) [Mass/Vol] 13.5 g/dL 12.0-15.0 [facility] Blood platelet mean volumeOr dered By: Joao Simon on 01-03-2023 Platelet mean volume (Bld) [Entitic vol] 10.6 fL 6.2-12.0 [facility] Determination of erythrocyte mean corpuscular volume (MCV)Ordered By: Joao Simon on 01-03-2023 MCV (RBC) [Entitic vol] 96.2 fL 81-99 [facility] Hematocrit Auto (Bld) [Volum e fraction]Ordered By: Joao Simon on 01-03-2023 Hematocrit (Bld) [Volume fraction] 42.7 % 37-47 [facility] INR in Blood by Coagulation assayOrdered By: Joao Simon on 01-03-2023 INR Coag (Bld) [Relative time] 2.0 {INR} [facility] - CoagulationOrde red By: Joao Simon on 01-03-2023 PT Coag (PPP) [Time] 23.0 s 11.7-14.9 [facility] Laboratory - Hematology and Cell countsOrdered By: Joao Simon on 01-03-2023 Erythrocyte distribution width (RBC) [Entitic vol] 45.0 fL 35.1-43.9 [facility] Erythrocyte distribution width (RBC) [Ratio] 12.7 % 11.6-14.6 [facility] MCH (RBC) [Entitic mass] 30.4 pg 27.0-32.0 [facility] MCHC Auto (RBC) [Mass/Vol]Or dered By: Joao Simon on 01-03-2023 MCHC (RBC) [Mass/Vol] 31.6 g/dL 32-36 [facility] Platelets bldOrdered By: Brittany Simon on 01-03-2023 Platelets (Bld) [#/Vol] 214 10*3/uL 150-450 [facility] Basophil percentageOrdered B y: Joao Simon on 11-30-2022 Cholesterol [Mass/Vol] 127 mg/dL <200 [facility] Comment on above: <200 mg/dL Desirable 200-240 mg/dL Borderline >240 mg/dL High Risk Sodium [Moles/Vol] 139 mmol/L 136-145 [facility] Triglyceride [Mass/Vol] 73 mg/dL <199 [facility] Comment on above: The drugs N-Acetylcy steine and Metamizole may falsely depress this assay.Serum Triglycerides Reference Interval Normal <150 mg/dL Borderline high 150 - 199 mg/dL High 200 - 499 mg/dL Very High > or = 500 mg/dL INR in Blood by Coagulation assayOrdered By: Joao Simon on 11-30-2022 INR Coag (Bld) [Relative time] 3.3 {INR} [facility] - CoagulationOrde red By: Joao Simon on 11-30-2022 PT Coag (PPP) [Time] 34.0 s 11.7-14.9 [facility] Serum or plasma cholesterol in HDL measurement (mass/volume)Ordered By: Joao Simon on 11-30-2022 Cholesterol in HDL [Mass/Vol] 49 mg/dL >40 [facility] Comment on above: The drugs N-Acetylcy steine and Metamizole may falsely depress this assay. Reference Range HDL <40 mg/dL Low HDL Cholesterol HDL >or= 60 mg/dL High HDL Cholesterol Serum or plasma cholesterol in VLDL measurement (mass/volume)Ordered By: Joao Simon on 11-30-2022 Cholesterol in VLDL [Mass/Vol] 15 mg/dL 5-40 [facility] Serum or plasma low density lipoprotein (LDL) cholesterol measurement (mass/volume)Ordered By: Joao Simon on 11-30-2022 Cholesterol in LDL [Mass/Vol] 63 mg/dL 0-130 [facility] - CoagulationOrde red By: Joao Simon on 11-16-2022 INR Coag (Bld) [Relative time] 3.0 {INR} [facility] Comment on above: Critical Value > 4.0 Whole blood prothrombin time Ordered By: Joao Simon on 11-16-2022 PT Coag (Bld) [Time] 32.0 s 11.7-14.9 [facility] Basophil percentageOrdered B y: Joao Simon on 11-02-2022 Chloride [Moles/Vol] 108 mmol/L 98-107 [facility] Glucose [Mass/Vol] 120 mg/dL 74-106 [facility] Comment on above: Fasting Glucose resu lt from 100 to 125 mg/dL suggests IMPAIRED HOMEOSTASIS per A.D.A. criteria. Potassium [Moles/Vol] 4.8 mmol/L 3.5-5.1 [facility] Sodium [Moles/Vol] 141 mmol/L 136-145 [facility] WBC (Bld) [#/Vol] 6.2 10*3/uL 4.4-11.0 [facility] Blood erythrocytes count (nu mber/volume)Ordered By: Joao Simon on 11-02-2022 RBC (Bld) [#/Vol] 4.44 10*6/uL 4.2-5.4 [facility] Blood hemoglobin measurement (mass/volume)Ordered By: Joao Simon on 11-02-2022 Hemoglobin (Bld) [Mass/Vol] 13.6 g/dL 12.0-15.0 [facility] Blood platelet mean volumeOr dered By: Joao Simon on 11-02-2022 Platelet mean volume (Bld) [Entitic vol] 10.7 fL 6.2-12.0 [facility] Determination of erythrocyte mean corpuscular volume (MCV)Ordered By: Joao Simon on 11-02-2022 MCV (RBC) [Entitic vol] 95.5 fL 81-99 [facility] Hematocrit Auto (Bld) [Volum e fraction]Ordered By: Joao Simon on 11-02-2022 Hematocrit (Bld) [Volume fraction] 42.4 % 37-47 [facility] INR in Blood by Coagulation assayOrdered By: Joao Simon on 11-02-2022 INR Coag (Bld) [Relative time] 2.9 {INR} [facility] - Chemistry and C hemistry - challengeOrdered By: Joao Simon on 11-02-2022 CO2 [Moles/Vol] 30.0 mmol/L 21.0-32.0 [facility] Urea nitrogen/Creatinine [Mass ratio] 14.5 mg/mg 10-20 [facility] - CoagulationOrde red By: Joao Simon on 11-02-2022 PT Coag (PPP) [Time] 30.9 s 11.7-14.9 [facility] Laboratory - Hematology and Cell countsOrdered By: Joao Simon on 11-02-2022 Erythrocyte distribution width (RBC) [Entitic vol] 46.2 fL 35.1-43.9 [facility] Erythrocyte distribution width (RBC) [Ratio] 13.1 % 11.6-14.6 [facility] MCH (RBC) [Entitic mass] 30.6 pg 27.0-32.0 [facility] MCHC Auto (RBC) [Mass/Vol]Or dered By: Joao Simon on 11-02-2022 MCHC (RBC) [Mass/Vol] 32.1 g/dL 32-36 [facility] No Panel InformationOrdered By: Joao Simon on 11-02-2022 Estimated GFR (MDRD) Amer 104 mL/min >60 [facility] Comment on above: GFR Calc Estimated GFR (MDRD) Non-Af Amer 86 mL/min >60 [facility] Comment on above: Non- GFR Calc Platelets bldOrdered By: Brittany Simon on 11-02-2022 Platelets (Bld) [#/Vol] 226 10*3/uL 150-450 [facility] Serum or plasma calcium josué urement (mass/volume)Ordered By: Joao Simon on 11-02-2022 Calcium [Mass/Vol] 9.2 mg/dL 8.5-10.1 [facility] Serum or plasma creatinine m easurement (mass/volume)Ordered By: Joao Simon on 11-02-2022 Creatinine [Mass/Vol] 0.69 mg/dL 0.55-1.02 [facility] Comment on above: The validity of the calculated GFR & GFRAA in patients over 70 years has not been determined. Clinical correlation is essential. Serum or plasma urea nitroge n measurement (mass/volume)Ordered By: Joao Simon on 11-02-2022 Urea nitrogen [Mass/Vol] 10 mg/dL 7-18 [facility] Thin prep Papanicolaou smear with manual screeningOrdered By: Joao Simon on 11-02-2022 Thin prep Papanicolaou smear with manual screening 3 5-15 [facility] Basophil percentageOrdered B y: Joao Simon on 10-19-2022 Sodium [Moles/Vol] 140 mmol/L 136-145 [facility] INR in Blood by Coagulation assayOrdered By: Joao Simon on 10-19-2022 INR Coag (Bld) [Relative time] 2.8 {INR} [facility] - CoagulationOrde red By: Joao Simon on 10-19-2022 PT Coag (PPP) [Time] 30.0 s 11.7-14.9 [facility] Laboratory - CoagulationOrde red By: Joao Simon on 10-05-2022 INR Coag (Bld) [Relative time] 1.7 {INR} [facility] Comment on above: Critical Value > 4.0 Whole blood prothrombin time Ordered By: Joao Simon on 10-05-2022 PT Coag (Bld) [Time] 19.0 s 11.7-14.9 [facility] Basophil percentageOrdered B y: Joao Simon on 10-03-2022 Chloride [Moles/Vol] 103 mmol/L 98-107 [facility] Glucose [Mass/Vol] 121 mg/dL 74-106 [facility] Comment on above: Fasting Glucose resu lt from 100 to 125 mg/dL suggests IMPAIRED HOMEOSTASIS per A.D.A. criteria. Potassium [Moles/Vol] 4.3 mmol/L 3.5-5.1 [facility] Sodium [Moles/Vol] 136 mmol/L 136-145 [facility] Laboratory - Chemistry and C hemistry - challengeOrdered By: Joao Simon on 10-03-2022 CO2 [Moles/Vol] 29.0 mmol/L 21.0-32.0 [facility] Urea nitrogen/Creatinine [Mass ratio] 17.3 mg/mg 10-20 [facility] No Panel InformationOrdered By: Joao Simon on 10-03-2022 Estimated GFR (MDRD) Amer 104 mL/min >60 [facility] Comment on above: GFR Calc Estimated GFR (MDRD) Non-Af Amer 86 mL/min >60 [facility] Comment on above: Non- GFR Calc Serum or plasma calcium josué urement (mass/volume)Ordered By: Joao Simon on 10-03-2022 Calcium [Mass/Vol] 9.0 mg/dL 8.5-10.1 [facility] Serum or plasma creatinine m easurement (mass/volume)Ordered By: Joao Simon on 10-03-2022 Creatinine [Mass/Vol] 0.69 mg/dL 0.55-1.02 [facility] Comment on above: The validity of the calculated GFR & GFRAA in patients over 70 years has not been determined. Clinical correlation is essential. Serum or plasma urea nitroge n measurement (mass/volume)Ordered By: Joao Simon on 10-03-2022 Urea nitrogen [Mass/Vol] 12 mg/dL 7-18 [facility] Thin prep Papanicolaou smear with manual screeningOrdered By: Joao Simon on 10-03-2022 Thin prep Papanicolaou smear with manual screening 4 5-15 [facility] Laboratory - CoagulationOrde red By: Joao Simon on 09-28-2022 INR Coag (Bld) [Relative time] 2.2 {INR} [facility] Comment on above: Critical Value > 4.0 Whole blood prothrombin time Ordered By: Joao Simon on 09-28-2022 PT Coag (Bld) [Time] 24.4 s 11.7-14.9 [facility] Basophil percentageOrdered B y: Joao Simon on 09-20-2022 Chloride [Moles/Vol] 96 mmol/L 98-107 [facility] Glucose [Mass/Vol] 94 mg/dL 74-106 [facility] Potassium [Moles/Vol] 4.4 mmol/L 3.5-5.1 [facility] Sodium [Moles/Vol] 132 mmol/L 136-145 [facility] WBC (Bld) [#/Vol] 6.7 10*3/uL 4.4-11.0 [facility] Blood erythrocytes count (nu mber/volume)Ordered By: Joao Simon on 09-20-2022 RBC (Bld) [#/Vol] 4.21 10*6/uL 4.2-5.4 [facility] Blood hemoglobin measurement (mass/volume)Ordered By: Joao Simon on 09-20-2022 Hemoglobin (Bld) [Mass/Vol] 13.0 g/dL 12.0-15.0 [facility] Blood platelet mean volumeOr dered By: Joao Simon on 09-20-2022 Platelet mean volume (Bld) [Entitic vol] 10.2 fL 6.2-12.0 [facility] Determination of erythrocyte mean corpuscular volume (MCV)Ordered By: Joao Simon on 09-20-2022 MCV (RBC) [Entitic vol] 91.0 fL 81-99 [facility] Hematocrit Auto (Bld) [Volum e fraction]Ordered By: Joao Simon on 09-20-2022 Hematocrit (Bld) [Volume fraction] 38.3 % 37-47 [facility] Laboratory - Chemistry and C hemistry - challengeOrdered By: Joao Simon on 09-20-2022 CO2 [Moles/Vol] 33.0 mmol/L 21.0-32.0 [facility] Urea nitrogen/Creatinine [Mass ratio] 12.7 mg/mg 10-20 [facility] Laboratory - Hematology and Cell countsOrdered By: Joao Simon on 09-20-2022 Erythrocyte distribution width (RBC) [Entitic vol] 40.4 fL 35.1-43.9 [facility] Erythrocyte distribution width (RBC) [Ratio] 12.1 % 11.6-14.6 [facility] MCH (RBC) [Entitic mass] 30.9 pg 27.0-32.0 [facility] MCHC Auto (RBC) [Mass/Vol]Or dered By: Joao Simon on 04-25-2023 MCHC (RBC) [Mass/Vol] 33.9 g/dL 32-36 [facility] No Panel InformationOrdered By: Joao Simon on 09-20-2022 Estimated GFR (MDRD) Amer 89 mL/min >60 [facility] Comment on above: GFR Calc Estimated GFR (MDRD) Non-Af Amer 74 mL/min >60 [facility] Comment on above: Non- GFR Calc Platelets bldOrdered By: Brittany Simon on 09-20-2022 Platelets (Bld) [#/Vol] 229 10*3/uL 150-450 [facility] Serum or plasma calcium josué urement (mass/volume)Ordered By: Joao Simon on 09-20-2022 Calcium [Mass/Vol] 8.8 mg/dL 8.5-10.1 [facility] Serum or plasma creatinine m easurement (mass/volume)Ordered By: Joao Simon on 09-20-2022 Creatinine [Mass/Vol] 0.79 mg/dL 0.55-1.02 [facility] Comment on above: The validity of the calculated GFR & GFRAA in patients over 70 years has not been determined. Clinical correlation is essential. Serum or plasma urea nitroge n measurement (mass/volume)Ordered By: Joao Simon on 09-20-2022 Urea nitrogen [Mass/Vol] 10 mg/dL 7-18 [facility] Thin prep Papanicolaou smear with manual screeningOrdered By: Joao Simon on 09-20-2022 Thin prep Papanicolaou smear with manual screening 3 5-15 [facility] Culture, urineOrdered By: Rodrick Simon on 09-17-2022 Bacteria identified Cx Nom (U) Positive [facility] Bilirubin Test strip Ql (U)O rdered By: Joao Simon on 09-16-2022 Bilirubin Ql (U) Negative Negative [facility] Culture, urineOrdered By: Rodrick Simon on 09-16-2022 Bacteria identified Cx Nom (U) Positive [facility] Ketones Test strip Ql (U)Ord ered By: Joao Simon on 09-16-2022 Ketones Ql (U) Negative Negative [facility] Nitrite Test strip Ql (U)Ord ered By: Joao Simon on 09-16-2022 Nitrite Ql (U) Negative Negative [facility] Protein Test strip Ql (U)Ord ered By: Joao Simon on 09-16-2022 Protein Ql (U) 15 mg/dl Negative [facility] Urine blood detectionOrdered By: Joao Simon on 09-16-2022 RBC Ql (U) 10 /ul Negative [facility] Urine clarityOrdered By: Brittany Simon on 09-16-2022 Clarity (U) Sl. Cloudy Clear [facility] Urine color determinationOrd ered By: Joao Simon on 09-16-2022 Color (U) Yellow Yellow [facility] Urine glucose detectionOrder ed By: Joao Simon on 09-16-2022 Glucose Ql (U) Normal mg/dl Normal [facility] Urine leukocyte esterase det ection by dipstickOrdered By: Joao Simon on 09-16-2022 Leukocyte esterase Test strip Ql (U) 500 /ul Negative [facility] Urine pHOrdered By: Joao almeida on 09-16-2022 pH (U) 6.0 [pH] 5.0 - 8.0 [facility] Urine specific gravity measu rementOrdered By: Joao Simon on 09-16-2022 Specific gravity (U) [Rel density] 1.020 1.002-1.030 [facility] Urobilinogen Auto test strip Ql (U)Ordered By: Joao Simon on 09-16-2022 Urobilinogen Ql (U) Normal mg/dl Normal [facility] Basophil percentageOrdered B y: Hortensia Unger on 08-29-2022 Cholesterol [Mass/Vol] 126 mg/dL <200 [facility] Comment on above: <200 mg/dL Desirable 200-240 mg/dL Borderline >240 mg/dL High Risk Triglyceride [Mass/Vol] 105 mg/dL <199 [facility] Comment on above: The drugs N-Acetylcy steine and Metamizole may falsely depress this assay.Serum Triglycerides Reference Interval Normal <150 mg/dL Borderline high 150 - 199 mg/dL High 200 - 499 mg/dL Very High > or = 500 mg/dL WBC (Bld) [#/Vol] 6.4 10*3/uL 4.4-11.0 [facility] Blood erythrocytes count (nu mber/volume)Ordered By: Hortensia Unger on 08-29-2022 RBC (Bld) [#/Vol] 4.38 10*6/uL 4.2-5.4 [facility] Blood hemoglobin measurement (mass/volume)Ordered By: Hortensia Unger on 08-29-2022 Hemoglobin (Bld) [Mass/Vol] 13.4 g/dL 12.0-15.0 [facility] Blood platelet mean volumeOr dered By: Hortensia Unger on 08-29-2022 Platelet mean volume (Bld) [Entitic vol] 10.0 fL 6.2-12.0 [facility] Determination of erythrocyte mean corpuscular volume (MCV)Ordered By: Hortensia Unger on 08-29-2022 MCV (RBC) [Entitic vol] 92.9 fL 81-99 [facility] Hematocrit Auto (Bld) [Volum e fraction]Ordered By: Hortensia Unger on 08-29-2022 Hematocrit (Bld) [Volume fraction] 40.7 % 37-47 [facility] INR in Blood by Coagulation assayOrdered By: Hortensia Unger on 08-29-2022 INR Coag (Bld) [Relative time] 1.9 {INR} [facility] - CoagulationOrde red By: Hortensia Unger on 08-29-2022 PT Coag (PPP) [Time] 21.3 s 11.7-14.9 [facility] Laboratory - Hematology and Cell countsOrdered By: Hortensia Unger on 08-29-2022 Erythrocyte distribution width (RBC) [Entitic vol] 42.1 fL 35.1-43.9 [facility] Erythrocyte distribution width (RBC) [Ratio] 12.3 % 11.6-14.6 [facility] MCH (RBC) [Entitic mass] 30.6 pg 27.0-32.0 [facility] MCHC Auto (RBC) [Mass/Vol]Or dered By: Hortensia Unger on 08-29-2022 MCHC (RBC) [Mass/Vol] 32.9 g/dL 32-36 [facility] Platelets bldOrdered By: Hortensia Unger on 08-29-2022 Platelets (Bld) [#/Vol] 215 10*3/uL 150-450 [facility] Serum or plasma cholesterol in HDL measurement (mass/volume)Ordered By: Hortensia Unger on 08-29-2022 Cholesterol in HDL [Mass/Vol] 48 mg/dL >40 [facility] Comment on above: The drugs N-Acetylcy steine and Metamizole may falsely depress this assay. Reference Range HDL <40 mg/dL Low HDL Cholesterol HDL >or= 60 mg/dL High HDL Cholesterol Serum or plasma cholesterol in VLDL measurement (mass/volume)Ordered By: Hortensia Unger on 08-29-2022 Cholesterol in VLDL [Mass/Vol] 21 mg/dL 5-40 [facility] Serum or plasma low density lipoprotein (LDL) cholesterol measurement (mass/volume)Ordered By: Hortensia Unger on 08-29-2022 Cholesterol in LDL [Mass/Vol] 57 mg/dL 0-130 [facility] Basophil percentageOrdered B y: Hortensia Unger on 08-08-2022 Sodium [Moles/Vol] 137 mmol/L 136-145 [facility] Basophil percentageOrdered B y: Hortensia Unger on 07-28-2022 Bilirubin [Mass/Vol] 0.30 mg/dL 0.20-1.00 [facility] Comment on above: For patients on eltr ombopag therapy, use of [employer] [place] TBIL is not recommended. Chloride [Moles/Vol] 95 mmol/L 98-107 [facility] Glucose [Mass/Vol] 118 mg/dL 74-106 [facility] Comment on above: Fasting Glucose resu lt from 100 to 125 mg/dL suggests IMPAIRED HOMEOSTASIS per A.D.A. criteria. Potassium [Moles/Vol] 3.5 mmol/L 3.5-5.1 [facility] Protein [Mass/Vol] 7.0 g/dL 6.4-8.2 [facility] Sodium [Moles/Vol] 135 mmol/L 136-145 [facility] WBC (Bld) [#/Vol] 6.4 10*3/uL 4.4-11.0 [facility] Blood erythrocytes count (nu mber/volume)Ordered By: Hortensia Unger on 07-28-2022 RBC (Bld) [#/Vol] 4.56 10*6/uL 4.2-5.4 [facility] Blood hemoglobin measurement (mass/volume)Ordered By: Hortensia Unger on 07-28-2022 Hemoglobin (Bld) [Mass/Vol] 14.0 g/dL 12.0-15.0 [facility] Blood platelet mean volumeOr dered By: Hortensia Unger on 07-28-2022 Platelet mean volume (Bld) [Entitic vol] 10.4 fL 6.2-12.0 [facility] Determination of erythrocyte mean corpuscular volume (MCV)Ordered By: Hortensia Unger on 07-28-2022 MCV (RBC) [Entitic vol] 93.9 fL 81-99 [facility] Hematocrit Auto (Bld) [Volum e fraction]Ordered By: Hortensia Unger on 07-28-2022 Hematocrit (Bld) [Volume fraction] 42.8 % 37-47 [facility] INR in Blood by Coagulation assayOrdered By: Hortensia Unger on 07-28-2022 INR Coag (Bld) [Relative time] 1.7 {INR} [facility] Laboratory - Chemistry and C hemistry - challengeOrdered By: Hortensia Unger on 07-28-2022 ALP [Catalytic activity/Vol] 65 U/L 45-117 [facility] ALT [Catalytic activity/Vol] 25 U/L 13-56 [facility] CO2 [Moles/Vol] 31.0 mmol/L 21.0-32.0 [facility] Globulin (S) [Mass/Vol] 3.7 g/dL 2.2-4.2 [facility] Urea nitrogen/Creatinine [Mass ratio] 14.2 mg/mg 10-20 [facility] - CoagulationOrde red By: Hortensia Unger on 07-28-2022 PT Coag (PPP) [Time] 19.5 s 11.7-14.9 [facility] Laboratory - Hematology and Cell countsOrdered By: Hortensia Unger on 07-28-2022 Erythrocyte distribution width (RBC) [Entitic vol] 42.4 fL 35.1-43.9 [facility] Erythrocyte distribution width (RBC) [Ratio] 12.2 % 11.6-14.6 [facility] MCH (RBC) [Entitic mass] 30.7 pg 27.0-32.0 [facility] MCHC Auto (RBC) [Mass/Vol]Or dered By: Hortensia Unger on 07-28-2022 MCHC (RBC) [Mass/Vol] 32.7 g/dL 32-36 [facility] No Panel InformationOrdered By: Hortensia Unger on 07-28-2022 Estimated GFR (MDRD) Amer 101 mL/min >60 [facility] Comment on above: GFR Calc Estimated GFR (MDRD) Non-Af Amer 84 mL/min >60 [facility] Comment on above: Non- GFR Calc Platelets bldOrdered By: Hortensia Unger on 07-28-2022 Platelets (Bld) [#/Vol] 234 10*3/uL 150-450 [facility] Serum or plasma albumin josué urement (mass/volume)Ordered By: Hortensia Unger on 07-28-2022 Albumin [Mass/Vol] 3.3 g/dL 3.2-5.0 [facility] Serum or plasma albumin/glob ulin mass ratioOrdered By: Hortensia Unger on 07-28-2022 Albumin/Globulin [Mass ratio] 0.9 {ratio} 0.9-2.4 [facility] Serum or plasma calcium josué urement (mass/volume)Ordered By: Hortensia Unger on 07-28-2022 Calcium [Mass/Vol] 8.7 mg/dL 8.5-10.1 [facility] Serum or plasma creatinine m easurement (mass/volume)Ordered By: Hortensia Unger on 07-28-2022 Creatinine [Mass/Vol] 0.70 mg/dL 0.55-1.02 [facility] Comment on above: The validity of the calculated GFR & GFRAA in patients over 70 years has not been determined. Clinical correlation is essential. Serum or plasma urea nitroge n measurement (mass/volume)Ordered By: Hortensia Unger on 07-28-2022 Urea nitrogen [Mass/Vol] 10 mg/dL 7-18 [facility] Thin prep Papanicolaou smear with manual screeningOrdered By: Hortensia Unger on 07-28-2022 Thin prep Papanicolaou smear with manual screening 23 U/L 15-37 [facility] Thin prep Papanicolaou smear with manual screening 9 5-15 [facility] Basophil percentageOrdered B y: Hortensia Unger on 07-11-2022 Bilirubin [Mass/Vol] 0.50 mg/dL 0.20-1.00 [facility] Comment on above: For patients on eltr ombopag therapy, use of [employer] TBIL is not recommended. Chloride [Moles/Vol] 100 mmol/L 98-107 [facility] Glucose [Mass/Vol] 120 mg/dL 74-106 [facility] Comment on above: Fasting Glucose resu lt from 100 to 125 mg/dL suggests IMPAIRED HOMEOSTASIS per A.D.A. criteria. Potassium [Moles/Vol] 3.8 mmol/L 3.5-5.1 [facility] Protein [Mass/Vol] 7.0 g/dL 6.4-8.2 [facility] Sodium [Moles/Vol] 136 mmol/L 136-145 [facility] WBC (Bld) [#/Vol] 6.2 10*3/uL 4.4-11.0 [facility] Blood erythrocytes count (nu mber/volume)Ordered By: Hortensia Unger on 07-11-2022 RBC (Bld) [#/Vol] 4.39 10*6/uL 4.2-5.4 [facility] Blood hemoglobin measurement (mass/volume)Ordered By: Hortensia Unger on 07-11-2022 Hemoglobin (Bld) [Mass/Vol] 13.4 g/dL 12.0-15.0 [facility] Blood platelet mean volumeOr dered By: Hortensia Unger on 07-11-2022 Platelet mean volume (Bld) [Entitic vol] 10.5 fL 6.2-12.0 [facility] Determination of erythrocyte mean corpuscular volume (MCV)Ordered By: Hortensia Unger on 07-11-2022 MCV (RBC) [Entitic vol] 93.2 fL 81-99 [facility] Hematocrit Auto (Bld) [Volum e fraction]Ordered By: Hortensia Unger on 07-11-2022 Hematocrit (Bld) [Volume fraction] 40.9 % 37-47 [facility] Laboratory - Chemistry and C hemistry - challengeOrdered By: Hortensia Unger on 07-11-2022 ALP [Catalytic activity/Vol] 61 U/L 45-117 [facility] ALT [Catalytic activity/Vol] 21 U/L 13-56 [facility] CO2 [Moles/Vol] 30.0 mmol/L 21.0-32.0 [facility] Globulin (S) [Mass/Vol] 3.6 g/dL 2.2-4.2 [facility] Urea nitrogen/Creatinine [Mass ratio] 13.6 mg/mg 10-20 [facility] Laboratory - Hematology and Cell countsOrdered By: Hortensia Unger on 07-11-2022 Erythrocyte distribution width (RBC) [Entitic vol] 42.7 fL 35.1-43.9 [facility] Erythrocyte distribution width (RBC) [Ratio] 12.5 % 11.6-14.6 [facility] MCH (RBC) [Entitic mass] 30.5 pg 27.0-32.0 [facility] MCHC Auto (RBC) [Mass/Vol]Or dered By: Hortensia Unger on 07-11-2022 MCHC (RBC) [Mass/Vol] 32.8 g/dL 32-36 [facility] No Panel InformationOrdered By: Hortensia Unger on 07-11-2022 Estimated GFR (MDRD) Amer 87 mL/min >60 [facility] Comment on above: GFR Calc Estimated GFR (MDRD) Non-Af Amer 72 mL/min >60 [facility] Comment on above: Non- GFR Calc Platelets bldOrdered By: Hortensia Unger on 07-11-2022 Platelets (Bld) [#/Vol] 224 10*3/uL 150-450 [facility] Serum or plasma albumin josué urement (mass/volume)Ordered By: Hortensia Unger on 07-11-2022 Albumin [Mass/Vol] 3.4 g/dL 3.2-5.0 [facility] Serum or plasma albumin/glob ulin mass ratioOrdered By: Hortensia Unger on 07-11-2022 Albumin/Globulin [Mass ratio] 0.9 {ratio} 0.9-2.4 [facility] Serum or plasma calcium josué urement (mass/volume)Ordered By: Hortensia Unger on 07-11-2022 Calcium [Mass/Vol] 8.9 mg/dL 8.5-10.1 [facility] Serum or plasma creatinine m easurement (mass/volume)Ordered By: Hortensia Unger on 07-11-2022 Creatinine [Mass/Vol] 0.81 mg/dL 0.55-1.02 [facility] Comment on above: The validity of the calculated GFR & GFRAA in patients over 70 years has not been determined. Clinical correlation is essential. Serum or plasma urea nitroge n measurement (mass/volume)Ordered By: Hortensia Unger on 07-11-2022 Urea nitrogen [Mass/Vol] 11 mg/dL 7-18 [facility] Thin prep Papanicolaou smear with manual screeningOrdered By: Hortensia Unger on 07-11-2022 Thin prep Papanicolaou smear with manual screening 23 U/L 15-37 [facility] Thin prep Papanicolaou smear with manual screening 6 5-15 [facility] Basophil percentageOrdered B y: Hortensia Unger on 07-01-2022 Bilirubin [Mass/Vol] 0.40 mg/dL 0.20-1.00 [facility] Comment on above: For patients on eltr ombopag therapy, use of [employer] TBIL is not recommended. Chloride [Moles/Vol] 101 mmol/L 98-107 [facility] Glucose [Mass/Vol] 151 mg/dL 74-106 [facility] Comment on above: Fasting Glucose resu lt greater than or equal to 126 mg/dL suggests DIABETES MELLITUS per A.D.A. criteria. Potassium [Moles/Vol] 4.2 mmol/L 3.5-5.1 [facility] Protein [Mass/Vol] 6.3 g/dL 6.4-8.2 [facility] Sodium [Moles/Vol] 137 mmol/L 136-145 [facility] WBC (Bld) [#/Vol] 5.1 10*3/uL 4.4-11.0 [facility] Blood erythrocytes count (nu mber/volume)Ordered By: Hortensia Unger on 07-01-2022 RBC (Bld) [#/Vol] 4.03 10*6/uL 4.2-5.4 [facility] Blood hemoglobin measurement (mass/volume)Ordered By: Hortensia Unger on 07-01-2022 Hemoglobin (Bld) [Mass/Vol] 12.7 g/dL 12.0-15.0 [facility] Blood platelet mean volumeOr dered By: Hortensia Unger on 07-01-2022 Platelet mean volume (Bld) [Entitic vol] 10.1 fL 6.2-12.0 [facility] Determination of erythrocyte mean corpuscular volume (MCV)Ordered By: Hortensia Unger on 07-01-2022 MCV (RBC) [Entitic vol] 92.1 fL 81-99 [facility] Hematocrit Auto (Bld) [Volum e fraction]Ordered By: Hortensia Unger on 07-01-2022 Hematocrit (Bld) [Volume fraction] 37.1 % 37-47 [facility] INR in Blood by Coagulation assayOrdered By: Hortensia Unger on 07-01-2022 INR Coag (Bld) [Relative time] 2.0 {INR} [facility] Laboratory - Chemistry and C hemistry - challengeOrdered By: Hortensia Unger on 07-01-2022 ALP [Catalytic activity/Vol] 55 U/L 45-117 [facility] ALT [Catalytic activity/Vol] 20 U/L 13-56 [facility] CO2 [Moles/Vol] 30.0 mmol/L 21.0-32.0 [facility] Globulin (S) [Mass/Vol] 3.3 g/dL 2.2-4.2 [facility] Urea nitrogen/Creatinine [Mass ratio] 21.0 mg/mg 10-20 [facility] - CoagulationOrde red By: Hortensia Unger on 07-01-2022 PT Coag (PPP) [Time] 22.0 s 11.7-14.9 [facility] Laboratory - Hematology and Cell countsOrdered By: Hortensia Unger on 07-01-2022 Erythrocyte distribution width (RBC) [Entitic vol] 42.5 fL 35.1-43.9 [facility] Erythrocyte distribution width (RBC) [Ratio] 12.5 % 11.6-14.6 [facility] MCH (RBC) [Entitic mass] 31.5 pg 27.0-32.0 [facility] MCHC Auto (RBC) [Mass/Vol]Or dered By: Hortensia Unger on 07-01-2022 MCHC (RBC) [Mass/Vol] 34.2 g/dL 32-36 [facility] No Panel InformationOrdered By: Hortensia Unger on 07-01-2022 Estimated GFR (MDRD) Amer 108 mL/min >60 [facility] Comment on above: GFR Calc Estimated GFR (MDRD) Non-Af Amer 89 mL/min >60 [facility] Comment on above: Non- GFR Calc Platelets bldOrdered By: Hortensia Unger on 07-01-2022 Platelets (Bld) [#/Vol] 208 10*3/uL 150-450 [facility] Serum or plasma albumin josué urement (mass/volume)Ordered By: Hortensia Unger on 07-01-2022 Albumin [Mass/Vol] 3.0 g/dL 3.2-5.0 [facility] Serum or plasma albumin/glob ulin mass ratioOrdered By: Hortensia Unger on 07-01-2022 Albumin/Globulin [Mass ratio] 0.9 {ratio} 0.9-2.4 [facility] Serum or plasma calcium josué urement (mass/volume)Ordered By: Hortensia Unger on 07-01-2022 Calcium [Mass/Vol] 8.6 mg/dL 8.5-10.1 [facility] Serum or plasma creatinine m easurement (mass/volume)Ordered By: Hortensia Unger on 07-01-2022 Creatinine [Mass/Vol] 0.67 mg/dL 0.55-1.02 [facility] Comment on above: The validity of the calculated GFR & GFRAA in patients over 70 years has not been determined. Clinical correlation is essential. Serum or plasma urea nitroge n measurement (mass/volume)Ordered By: Hortensia Unger on 07-01-2022 Urea nitrogen [Mass/Vol] 14 mg/dL 7-18 [facility] Thin prep Papanicolaou smear with manual screeningOrdered By: Hortensia Unger on 07-01-2022 Thin prep Papanicolaou smear with manual screening 22 U/L 15-37 [facility] Thin prep Papanicolaou smear with manual screening 6 5-15 [facility] Basophil percentageOrdered B y: Dr. Stephens on 06-17-2022 Cholesterol [Mass/Vol] 112 mg/dL <200 [facility] Comment on above: <200 mg/dL Desirable 200-240 mg/dL Borderline >240 mg/dL High Risk Triglyceride [Mass/Vol] 78 mg/dL <199 [facility] Comment on above: The drugs N-Acetylcy steine and Metamizole may falsely depress this assay.Serum Triglycerides Reference Interval Normal <150 mg/dL Borderline high 150 - 199 mg/dL High 200 - 499 mg/dL Very High > or = 500 mg/dL INR in Blood by Coagulation assayOrdered By: Dr. Stephens on 06-17-2022 INR Coag (Bld) [Relative time] 1.8 {INR} [facility] Laboratory - CoagulationOrde red By: Dr. Stephens on 06-17-2022 PT Coag (PPP) [Time] 20.2 s 11.7-14.9 [facility] Serum or plasma cholesterol in HDL measurement (mass/volume)Ordered By: Dr. Stephens on 06-17-2022 Cholesterol in HDL [Mass/Vol] 45 mg/dL >40 [facility] Comment on above: The drugs N-Acetylcy steine and Metamizole may falsely depress this assay. Reference Range HDL <40 mg/dL Low HDL Cholesterol HDL >or= 60 mg/dL High HDL Cholesterol Serum or plasma cholesterol in VLDL measurement (mass/volume)Ordered By: Dr. Stephens on 06-17-2022 Cholesterol in VLDL [Mass/Vol] 16 mg/dL 5-40 [facility] Serum or plasma low density lipoprotein (LDL) cholesterol measurement (mass/volume)Ordered By: Dr. Stephens on 06-17-2022 Cholesterol in LDL [Mass/Vol] 51 mg/dL 0-130 [facility] Absolute lymphocyte countOrd ered By: Dr. Davis on 06-16-2022 Lymphocytes Auto (Unsp spec) [#/Vol] 1.94 10*3/uL 0.83-4.51 [facility] Basophil percentageOrdered B y: Dr. Davis on 06-16-2022 Basophils/100 WBC (Bld) 0.8 % 0-1 [facility] Chloride [Moles/Vol] 99 mmol/L 98-107 [facility] Eosinophils/100 WBC (Bld) 3.9 % 0-5 [facility] Glucose [Mass/Vol] 98 mg/dL 74-106 [facility] Neutrophils (Bld) [#/Vol] 3.6 10*3/uL 2.0-7.7 [facility] Neutrophils/100 WBC (Bld) 56.3 % 47-70 [facility] Potassium [Moles/Vol] 4.2 mmol/L 3.5-5.1 [facility] Sodium [Moles/Vol] 135 mmol/L 136-145 [facility] WBC (Bld) [#/Vol] 6.4 10*3/uL 4.4-11.0 [facility] Blood erythrocytes count (nu mber/volume)Ordered By: Dr. Davis on 06-16-2022 RBC (Bld) [#/Vol] 4.32 10*6/uL 4.2-5.4 [facility] Blood hemoglobin measurement (mass/volume)Ordered By: Dr. Davis on 06-16-2022 Hemoglobin (Bld) [Mass/Vol] 13.1 g/dL 12.0-15.0 [facility] Blood lymphocytes/100 leukoc ytesOrdered By: Dr. Davis on 06-16-2022 Lymphocytes/100 WBC (Bld) 30.6 % 19-41 [facility] Blood monocytes/100 leukocyt esOrdered By: Dr. Davis on 06-16-2022 Monocytes/100 WBC (Bld) 8.2 % 0-10 [facility] Blood platelet mean volumeOr dered By: Dr. Davis on 06-16-2022 Platelet mean volume (Bld) [Entitic vol] 10.1 fL 6.2-12.0 [facility] Determination of erythrocyte mean corpuscular volume (MCV)Ordered By: Dr. Davis on 06-16-2022 MCV (RBC) [Entitic vol] 91.4 fL 81-99 [facility] Hematocrit Auto (Bld) [Volum e fraction]Ordered By: Dr. Davis on 06-16-2022 Hematocrit (Bld) [Volume fraction] 39.5 % 37-47 [facility] [facility] IN[facility] in Blood by Coagulation assayOrdered By: Dr. Davis on 06-16-2022 INR Coag (Bld) [Relative time] 1.9 {INR} [facility] Laboratory - Chemistry and C hemistry - challengeOrdered By: Dr. Davis on 06-16-2022 CO2 [Moles/Vol] 32.0 mmol/L 21.0-32.0 [facility] Urea nitrogen/Creatinine [Mass ratio] 16.8 mg/mg 10-20 [facility] - CoagulationOrde red By: Dr. Davis on 06-16-2022 aPTT Coag (Bld) [Time] 30.2 s 24.1-36.2 [facility] PT Coag (PPP) [Time] 21.0 s 11.7-14.9 [facility] Laboratory - Hematology and Cell countsOrdered By: Dr. Davis on 06-16-2022 Erythrocyte distribution width (RBC) [Entitic vol] 41.0 fL 35.1-43.9 [facility] Erythrocyte distribution width (RBC) [Ratio] 12.3 % 11.6-14.6 [facility] Immature granulocytes/100 WBC (Bld) 0.200 % 0.0-0.9 [facility] Comment on above: IG% - Immature Granu locytes (promyelocytes, myelocytes and metamyelocytes) > 1% indicates that a LEFT SHIFT is Present. MCH (RBC) [Entitic mass] 30.3 pg 27.0-32.0 [facility] Nucleated RBC/100 WBC (Bld) [Ratio] 0 % 0-5 [facility] MCHC Auto (RBC) [Mass/Vol]Or dered By: Dr. Davis on 06-16-2022 MCHC (RBC) [Mass/Vol] 33.2 g/dL 32-36 [facility] No Panel InformationOrdered By: Dr. Davis on 06-16-2022 Estimated Creatinine Clearance Calc 31.60 ml/min [facility] Estimated GFR (MDRD) Amer 100 mL/min >60 [facility] Comment on above: GFR Calc Estimated GFR (MDRD) Non-Af Amer 83 mL/min >60 [facility] Comment on above: Non- GFR Calc Troponin I High Sensitivity 9 pg/mL 3.0-54.0 [facility] Comment on above: Please Note: New Amber t Units and Gender Specific Reference Ranges. For more information see Policy Stat Procedure [place] High Sensitivity Troponin (TNIH) and attachments. Platelets bldOrdered By: Dr. Davis on 06-16-2022 Platelets (Bld) [#/Vol] 233 10*3/uL 150-450 [facility] Serum or plasma calcium josué urement (mass/volume)Ordered By: Dr. Davis on 06-16-2022 Calcium [Mass/Vol] 8.9 mg/dL 8.5-10.1 [facility] Serum or plasma creatinine m easurement (mass/volume)Ordered By: Dr. Davis on 06-16-2022 Creatinine [Mass/Vol] 0.72 mg/dL 0.55-1.02 [facility] Comment on above: The validity of the calculated GFR & GFRAA in patients over 70 years has not been determined. Clinical correlation is essential. Serum or plasma urea nitroge n measurement (mass/volume)Ordered By: Dr. Davis on 06-16-2022 Urea nitrogen [Mass/Vol] 12 mg/dL 7-18 [facility] Thin prep Papanicolaou smear with manual screeningOrdered By: Dr. Davis on 06-16-2022 Thin prep Papanicolaou smear with manual screening 4 5-15 [facility] Basophil percentageOrdered B y: Hortensia Unger on 06-06-2022 Bilirubin [Mass/Vol] 0.30 mg/dL 0.20-1.00 [facility] Comment on above: For patients on eltr ombopag therapy, use of Dimension [place] TBIL is not recommended. Chloride [Moles/Vol] 101 mmol/L 98-107 [facility] Cholesterol [Mass/Vol] 111 mg/dL <200 [facility] Comment on above: <200 mg/dL Desirable 200-240 mg/dL Borderline >240 mg/dL High Risk Glucose [Mass/Vol] 93 mg/dL 74-106 [facility] Potassium [Moles/Vol] 4.0 mmol/L 3.5-5.1 [facility] Protein [Mass/Vol] 6.0 g/dL 6.4-8.2 [facility] Sodium [Moles/Vol] 140 mmol/L 136-145 [facility] Triglyceride [Mass/Vol] 51 mg/dL <199 [facility] Comment on above: The drugs N-Acetylcy steine and Metamizole may falsely depress this assay.Serum Triglycerides Reference Interval Normal <150 mg/dL Borderline high 150 - 199 mg/dL High 200 - 499 mg/dL Very High > or = 500 mg/dL WBC (Bld) [#/Vol] 5.9 10*3/uL 4.4-11.0 [facility] Blood erythrocytes count (nu mber/volume)Ordered By: Hortensia Unger on 06-06-2022 RBC (Bld) [#/Vol] 3.99 10*6/uL 4.2-5.4 [facility] Blood hemoglobin measurement (mass/volume)Ordered By: Hortensia Unger on 06-06-2022 Hemoglobin (Bld) [Mass/Vol] 12.2 g/dL 12.0-15.0 [facility] Blood platelet mean volumeOr dered By: Hortensia Unger on 06-06-2022 Platelet mean volume (Bld) [Entitic vol] 10.5 fL 6.2-12.0 [facility] Determination of erythrocyte mean corpuscular volume (MCV)Ordered By: Hortensia Unger on 06-06-2022 MCV (RBC) [Entitic vol] 92.7 fL 81-99 [facility] Hematocrit Auto (Bld) [Volum e fraction]Ordered By: Hortensia Unger on 06-06-2022 Hematocrit (Bld) [Volume fraction] 37.0 % 37-47 [facility] INR in Blood by Coagulation assayOrdered By: Hortensia Unger on 06-06-2022 INR Coag (Bld) [Relative time] 2.1 {INR} [facility] Laboratory - Chemistry and C hemistry - challengeOrdered By: Hortensia Unger on 06-06-2022 ALP [Catalytic activity/Vol] 54 U/L 45-117 [facility] ALT [Catalytic activity/Vol] 25 U/L 13-56 [facility] CO2 [Moles/Vol] 31.0 mmol/L 21.0-32.0 [facility] Globulin (S) [Mass/Vol] 3.1 g/dL 2.2-4.2 [facility] Urea nitrogen/Creatinine [Mass ratio] 19.7 mg/mg 10-20 [facility] - CoagulationOrde red By: Hortensia Unger on 06-06-2022 PT Coag (PPP) [Time] 23.1 s 11.7-14.9 [facility] Laboratory - Hematology and Cell countsOrdered By: Hortensia Unger on 06-06-2022 Erythrocyte distribution width (RBC) [Entitic vol] 43.4 fL 35.1-43.9 [facility] Erythrocyte distribution width (RBC) [Ratio] 12.7 % 11.6-14.6 [facility] MCH (RBC) [Entitic mass] 30.6 pg 27.0-32.0 [facility] MCHC Auto (RBC) [Mass/Vol]Or dered By: Hortensia Unger on 06-06-2022 MCHC (RBC) [Mass/Vol] 33.0 g/dL 32-36 [facility] No Panel InformationOrdered By: Hortensia Unger on 06-06-2022 Estimated GFR (MDRD) Amer 93 mL/min >60 [facility] Comment on above: GFR Calc Estimated GFR (MDRD) Non-Af Amer 77 mL/min >60 [facility] Comment on above: Non- GFR Calc Platelets bldOrdered By: Hortensia Unger on 06-06-2022 Platelets (Bld) [#/Vol] 214 10*3/uL 150-450 [facility] Serum or plasma albumin josué urement (mass/volume)Ordered By: Hortensia Unger on 06-06-2022 Albumin [Mass/Vol] 2.9 g/dL 3.2-5.0 [facility] Serum or plasma albumin/glob ulin mass ratioOrdered By: Hortensia Unger on 06-06-2022 Albumin/Globulin [Mass ratio] 0.9 {ratio} 0.9-2.4 [facility] Serum or plasma calcium josué urement (mass/volume)Ordered By: Hortensia Unger on 01-09-2023 Calcium [Mass/Vol] 8.3 mg/dL 8.5-10.1 [facility] Serum or plasma cholesterol in HDL measurement (mass/volume)Ordered By: Hortensia Unger on 06-06-2022 Cholesterol in HDL [Mass/Vol] 47 mg/dL >40 [facility] Comment on above: The drugs N-Acetylcy steine and Metamizole may falsely depress this assay. Reference Range HDL <40 mg/dL Low HDL Cholesterol HDL >or= 60 mg/dL High HDL Cholesterol Serum or plasma cholesterol in VLDL measurement (mass/volume)Ordered By: Hortensia Unger on 06-06-2022 Cholesterol in VLDL [Mass/Vol] 10 mg/dL 5-40 [facility] Serum or plasma creatinine m easurement (mass/volume)Ordered By: Hortensia Unger on 06-06-2022 Creatinine [Mass/Vol] 0.76 mg/dL 0.55-1.02 [facility] Comment on above: The validity of the calculated GFR & GFRAA in patients over 70 years has not been determined. Clinical correlation is essential. Serum or plasma low density lipoprotein (LDL) cholesterol measurement (mass/volume)Ordered By: Hortensia Unger on 06-06-2022 Cholesterol in LDL [Mass/Vol] 54 mg/dL 0-130 [facility] Serum or plasma urea nitroge n measurement (mass/volume)Ordered By: Hortensia Unger on 06-06-2022 Urea nitrogen [Mass/Vol] 15 mg/dL 7-18 [facility] Thin prep Papanicolaou smear with manual screeningOrdered By: Hortensia Unger on 06-06-2022 Thin prep Papanicolaou smear with manual screening 21 U/L 15-37 [facility] Thin prep Papanicolaou smear with manual screening 8 5-15 [facility] Basophil percentageOrdered B y: Hortensia Unger on 05-09-2022 Bilirubin [Mass/Vol] 0.50 mg/dL 0.20-1.00 [facility] Comment on above: For patients on eltr ombopag therapy, use of Dimension [place] TBIL is not recommended. Chloride [Moles/Vol] 99 mmol/L 98-107 [facility] Glucose [Mass/Vol] 115 mg/dL 74-106 [facility] Comment on above: Fasting Glucose resu lt from 100 to 125 mg/dL suggests IMPAIRED HOMEOSTASIS per A.D.A. criteria. Potassium [Moles/Vol] 4.1 mmol/L 3.5-5.1 [facility] Protein [Mass/Vol] 6.9 g/dL 6.4-8.2 [facility] Sodium [Moles/Vol] 135 mmol/L 136-145 [facility] WBC (Bld) [#/Vol] 5.8 10*3/uL 4.4-11.0 [facility] Blood erythrocytes count (nu mber/volume)Ordered By: Hortensia Unger on 05-09-2022 RBC (Bld) [#/Vol] 4.41 10*6/uL 4.2-5.4 [facility] Blood hemoglobin measurement (mass/volume)Ordered By: Hortensia Unger on 05-09-2022 Hemoglobin (Bld) [Mass/Vol] 13.4 g/dL 12.0-15.0 [facility] Blood platelet mean volumeOr dered By: Hortensia Unger on 05-09-2022 Platelet mean volume (Bld) [Entitic vol] 10.5 fL 6.2-12.0 [facility] Determination of erythrocyte mean corpuscular volume (MCV)Ordered By: Hortensia Unger on 05-09-2022 MCV (RBC) [Entitic vol] 93.0 fL 81-99 [facility] Hematocrit Auto (Bld) [Volum e fraction]Ordered By: Hortensia Unger on 05-09-2022 Hematocrit (Bld) [Volume fraction] 41.0 % 37-47 [facility] INR in Blood by Coagulation assayOrdered By: Hortensia Unger on 05-09-2022 INR Coag (Bld) [Relative time] 1.8 {INR} [facility] - Chemistry and C hemistry - challengeOrdered By: Hortensia Unger on 05-09-2022 ALP [Catalytic activity/Vol] 61 U/L 45-117 [facility] ALT [Catalytic activity/Vol] 29 U/L 13-56 [facility] CO2 [Moles/Vol] 32.0 mmol/L 21.0-32.0 [facility] Globulin (S) [Mass/Vol] 3.7 g/dL 2.2-4.2 [facility] Urea nitrogen/Creatinine [Mass ratio] 15.6 mg/mg 10-20 [facility] - CoagulationOrde red By: Hortensia Unger on 05-09-2022 PT Coag (PPP) [Time] 20.3 s 11.7-14.9 [facility] Laboratory - Hematology and Cell countsOrdered By: Hortensia Unger on 05-09-2022 Erythrocyte distribution width (RBC) [Entitic vol] 42.8 fL 35.1-43.9 [facility] Erythrocyte distribution width (RBC) [Ratio] 12.4 % 11.6-14.6 [facility] MCH (RBC) [Entitic mass] 30.4 pg 27.0-32.0 [facility] MCHC Auto (RBC) [Mass/Vol]Or dered By: Hortensia Unger on 05-09-2022 MCHC (RBC) [Mass/Vol] 32.7 g/dL 32-36 [facility] No Panel InformationOrdered By: Hortensia Unger on 05-09-2022 Estimated GFR (MDRD) Amer 92 mL/min >60 [facility] Comment on above: GFR Calc Estimated GFR (MDRD) Non-Af Amer 76 mL/min >60 [facility] Comment on above: Non- GFR Calc Platelets bldOrdered By: Hortensia Unger on 05-09-2022 Platelets (Bld) [#/Vol] 257 10*3/uL 150-450 [facility] Serum or plasma albumin josué urement (mass/volume)Ordered By: Hortensia Unger on 05-09-2022 Albumin [Mass/Vol] 3.2 g/dL 3.2-5.0 [facility] Serum or plasma albumin/glob ulin mass ratioOrdered By: Hortensia Unger on 05-09-2022 Albumin/Globulin [Mass ratio] 0.9 {ratio} 0.9-2.4 [facility] Serum or plasma calcium josué urement (mass/volume)Ordered By: Hortensia Unger on 05-09-2022 Calcium [Mass/Vol] 8.8 mg/dL 8.5-10.1 [facility] Serum or plasma creatinine m easurement (mass/volume)Ordered By: Hortensia Unger on 05-09-2022 Creatinine [Mass/Vol] 0.77 mg/dL 0.55-1.02 [facility] Comment on above: The validity of the calculated GFR & GFRAA in patients over 70 years has not been determined. Clinical correlation is essential. Serum or plasma urea nitroge n measurement (mass/volume)Ordered By: Hortensia Unger on 05-09-2022 Urea nitrogen [Mass/Vol] 12 mg/dL 7-18 [facility] Thin prep Papanicolaou smear with manual screeningOrdered By: Hortensia Unger on 05-09-2022 Thin prep Papanicolaou smear with manual screening 23 U/L 15-37 [facility] Thin prep Papanicolaou smear with manual screening 4 5-15 [facility] Basophil percentageOrdered B y: Hortensia Unger on 04-07-2022 Bilirubin [Mass/Vol] 0.50 mg/dL 0.20-1.00 [facility] Comment on above: For patients on eltr ombopag therapy, use of Dimension [place] TBIL is not recommended. Chloride [Moles/Vol] 99 mmol/L 98-107 [facility] Glucose [Mass/Vol] 100 mg/dL 74-106 [facility] Comment on above: Fasting Glucose resu lt from 100 to 125 mg/dL suggests IMPAIRED HOMEOSTASIS per A.D.A. criteria. Potassium [Moles/Vol] 3.8 mmol/L 3.5-5.1 [facility] Protein [Mass/Vol] 6.4 g/dL 6.4-8.2 [facility] Sodium [Moles/Vol] 136 mmol/L 136-145 [facility] WBC (Bld) [#/Vol] 5.5 10*3/uL 4.4-11.0 [facility] Blood erythrocytes count (nu mber/volume)Ordered By: Hortensia Unger on 04-07-2022 RBC (Bld) [#/Vol] 4.14 10*6/uL 4.2-5.4 [facility] Blood hemoglobin measurement (mass/volume)Ordered By: Hortensia Unger on 04-07-2022 Hemoglobin (Bld) [Mass/Vol] 13.0 g/dL 12.0-15.0 [facility] Blood platelet mean volumeOr dered By: Hortensia Unger on 04-07-2022 Platelet mean volume (Bld) [Entitic vol] 10.0 fL 6.2-12.0 [facility] Determination of erythrocyte mean corpuscular volume (MCV)Ordered By: Hortensia Unger on 04-07-2022 MCV (RBC) [Entitic vol] 92.0 fL 81-99 [facility] Hematocrit Auto (Bld) [Volum e fraction]Ordered By: Hortensia Unger on 04-07-2022 Hematocrit (Bld) [Volume fraction] 38.1 % 37-47 [facility] INR in Blood by Coagulation assayOrdered By: Hortensia Unger on 04-07-2022 INR Coag (Bld) [Relative time] 2.0 {INR} [facility] - Chemistry and C hemistry - challengeOrdered By: Hortensia Unger on 04-07-2022 ALP [Catalytic activity/Vol] 58 U/L 45-117 [facility] ALT [Catalytic activity/Vol] 18 U/L 13-56 [facility] CO2 [Moles/Vol] 29.0 mmol/L 21.0-32.0 [facility] Globulin (S) [Mass/Vol] 3.4 g/dL 2.2-4.2 [facility] Urea nitrogen/Creatinine [Mass ratio] 13.1 mg/mg 10-20 [facility] - CoagulationOrde red By: Hortensia Unger on 04-07-2022 PT Coag (PPP) [Time] 22.6 s 11.7-14.9 [facility] Laboratory - Hematology and Cell countsOrdered By: Hortensia Unger on 04-07-2022 Erythrocyte distribution width (RBC) [Entitic vol] 42.2 fL 35.1-43.9 [facility] Erythrocyte distribution width (RBC) [Ratio] 12.6 % 11.6-14.6 [facility] MCH (RBC) [Entitic mass] 31.4 pg 27.0-32.0 [facility] MCHC Auto (RBC) [Mass/Vol]Or dered By: Hortensia Unger on 04-07-2022 MCHC (RBC) [Mass/Vol] 34.1 g/dL 32-36 [facility] No Panel InformationOrdered By: Hortensia Unger on 04-07-2022 Estimated GFR (MDRD) Amer 104 mL/min >60 [facility] Comment on above: GFR Calc Estimated GFR (MDRD) Non-Af Amer 86 mL/min >60 [facility] Comment on above: Non- GFR Calc Platelets bldOrdered By: Hortensia Unger on 04-07-2022 Platelets (Bld) [#/Vol] 219 10*3/uL 150-450 [facility] Serum or plasma albumin josué urement (mass/volume)Ordered By: Hortensia Unger on 04-07-2022 Albumin [Mass/Vol] 3.0 g/dL 3.2-5.0 [facility] Serum or plasma albumin/glob ulin mass ratioOrdered By: Hortensia Unger on 04-07-2022 Albumin/Globulin [Mass ratio] 0.9 {ratio} 0.9-2.4 [facility] Serum or plasma calcium josué urement (mass/volume)Ordered By: Hortensia Unger on 04-07-2022 Calcium [Mass/Vol] 8.7 mg/dL 8.5-10.1 [facility] Serum or plasma creatinine m easurement (mass/volume)Ordered By: Hortensia Unger on 04-07-2022 Creatinine [Mass/Vol] 0.69 mg/dL 0.55-1.02 [facility] Comment on above: The validity of the calculated GFR & GFRAA in patients over 70 years has not been determined. Clinical correlation is essential. Serum or plasma urea nitroge n measurement (mass/volume)Ordered By: Hortensia Unger on 04-07-2022 Urea nitrogen [Mass/Vol] 9 mg/dL 7-18 [facility] Thin prep Papanicolaou smear with manual screeningOrdered By: Hortensia Unger on 04-07-2022 Thin prep Papanicolaou smear with manual screening 17 U/L 15-37 [facility] Thin prep Papanicolaou smear with manual screening 8 5-15 [facility] Culture, urineOrdered By: Isacc Unger on 03-28-2022 Bacteria identified Cx Nom (U) Culture exhibits no growth. [facility] Basophil percentageOrdered B y: Hortensia Unger on 03-26-2022 Basophil percentage 0 SEEN /hpf 0-5 [facility] Bilirubin Test strip Ql (U)O rdered By: Hortensia Unger on 03-26-2022 Bilirubin Ql (U) Negative Negative [facility] Ketones Test strip Ql (U)Ord ered By: Hortensia Unger on 03-26-2022 Ketones Ql (U) Negative Negative [facility] Mucus LM Ql (Urine sed)Order ed By: Hortensia Unger on 03-26-2022 Mucus Ql (Urine sed) 0 SEEN /hpf [facility] Nitrite Test strip Ql (U)Ord ered By: Hortensia Unger on 03-26-2022 Nitrite Ql (U) Negative Negative [facility] Protein Test strip Ql (U)Ord ered By: Hortensia Unger on 03-26-2022 Protein Ql (U) Negative Negative [facility] Squamous epithelial cells de tection in urine sediment by light microscopyOrdered By: Hortensia Unger on 03-26-2022 Epithelial cells.squamous LM Ql (Urine sed) 0 SEEN /hpf 5-10 [facility] Urine blood detectionOrdered By: Hortensia Unger on 03-26-2022 RBC Ql (U) 10 /ul Negative [facility] RBC Ql (U) 0 SEEN /hpf 0-5 [facility] Urine clarityOrdered By: Hortensia Unger on 03-26-2022 Clarity (U) Clear Clear [facility] Urine color determinationOrd ered By: Hortensia Unger on 03-26-2022 Color (U) Yellow Yellow [facility] Urine glucose detectionOrder ed By: Hortensia Unger on 03-26-2022 Glucose Ql (U) Normal mg/dl Normal [facility] Urine leukocyte esterase det ection by dipstickOrdered By: Hortensia Unger on 03-26-2022 Leukocyte esterase Test strip Ql (U) Negative Negative [facility] Urine pHOrdered By: Hortensia Szymanski iff on 03-26-2022 pH (U) 6.5 [pH] 5.0 - 8.0 [facility] Urine sediment bacteria coun t by microscopy (number/high power field)Ordered By: Hortensia Unger on 03-26-2022 Bacteria LM.HPF (Urine sed) [#/Area] 0 /[HPF] None Seen [facility] Urine specific gravity measu rementOrdered By: Hortensia Unger on 03-26-2022 Specific gravity (U) [Rel density] 1.015 1.002-1.030 [facility] Urobilinogen Auto test strip Ql (U)Ordered By: Hortensia Unger on 03-26-2022 Urobilinogen Ql (U) Normal mg/dl Normal [facility] Culture, urineOrdered By: Isacc Unger on 03-17-2022 Bacteria identified Cx Nom (U) Staphylococcus epidermidis [facility] Laboratory - CoagulationOrde red By: Hortensia Unger on 03-16-2022 INR Coag (Bld) [Relative time] 2.2 {INR} [facility] Comment on above: Critical Value > 4.0 Whole blood prothrombin time Ordered By: Hortensia Unger on 03-16-2022 PT Coag (Bld) [Time] 26.0 s 11.7-14.9 [facility] Bilirubin Test strip Ql (U)O rdered By: Hortensia Unger on 03-15-2022 Bilirubin Ql (U) Negative Negative [facility] Ketones Test strip Ql (U)Ord ered By: Hortensia Unger on 03-15-2022 Ketones Ql (U) Negative Negative [facility] Nitrite Test strip Ql (U)Ord ered By: Hortensia Unger on 03-15-2022 Nitrite Ql (U) Negative Negative [facility] Protein Test strip Ql (U)Ord ered By: Hortensia Unger on 03-15-2022 Protein Ql (U) Negative Negative [facility] Urine blood detectionOrdered By: Hortensia Unger on 03-15-2022 RBC Ql (U) Negative Negative [facility] Urine clarityOrdered By: Hortensia Unger on 03-15-2022 Clarity (U) Clear Clear [facility] Urine color determinationOrd ered By: Hortensia Unger on 03-15-2022 Color (U) Yellow Yellow [facility] Urine glucose detectionOrder ed By: Hortensia Unger on 03-15-2022 Glucose Ql (U) Normal mg/dl Normal [facility] Urine leukocyte esterase det ection by dipstickOrdered By: Hortensia Unger on 03-15-2022 Leukocyte esterase Test strip Ql (U) Negative Negative [facility] Urine pHOrdered By: Hortensia noef on 03-15-2022 pH (U) 7.0 [pH] 5.0 - 8.0 [facility] Urine specific gravity measu rementOrdered By: Hortensia Unger on 03-15-2022 Specific gravity (U) [Rel density] 1.010 1.002-1.030 [facility] Urobilinogen Auto test strip Ql (U)Ordered By: Hortensia Unger on 03-15-2022 Urobilinogen Ql (U) Normal mg/dl Normal [facility] Laboratory - Microbiology an d Antimicrobial susceptibilityOrdered By: Dr. Rios on 03-13-2022 Bacteria identified Cx Nom (Bld) No growth in 5 days. [facility] Culture, urineOrdered By: Dr Jose Rios on 03-10-2022 Bacteria identified Cx Nom (U) Culture exhibits no growth. [facility] Absolute lymphocyte countOrd ered By: Dr. Rios on 03-07-2022 Lymphocytes Auto (Unsp spec) [#/Vol] 2.09 10*3/uL 0.83-4.51 [facility] Basophil percentageOrdered B y: Dr. Rios on 03-07-2022 Basophil percentage 0 SEEN /hpf 0-5 [facility] Basophils/100 WBC (Bld) 0.2 % 0-1 [facility] Bilirubin [Mass/Vol] 0.60 mg/dL 0.20-1.00 [facility] Comment on above: For patients on eltr ombopag therapy, use of Dimension [place] TBIL is not recommended. Chloride [Moles/Vol] 97 mmol/L 98-107 [facility] Eosinophils/100 WBC (Bld) 1.0 % 0-5 [facility] Glucose [Mass/Vol] 122 mg/dL 74-106 [facility] Comment on above: Fasting Glucose resu lt from 100 to 125 mg/dL suggests IMPAIRED HOMEOSTASIS per A.D.A. criteria. Neutrophils (Bld) [#/Vol] 10.6 10*3/uL 2.0-7.7 [facility] Neutrophils/100 WBC (Bld) 73.9 % 47-70 [facility] Potassium [Moles/Vol] 3.6 mmol/L 3.5-5.1 [facility] Protein [Mass/Vol] 7.4 g/dL 6.4-8.2 [facility] Sodium [Moles/Vol] 134 mmol/L 136-145 [facility] WBC (Bld) [#/Vol] 14.3 10*3/uL 4.4-11.0 [facility] Basophil percentageOrdered B y: Hortensia Unger on 03-07-2022 Bilirubin [Mass/Vol] 0.70 mg/dL 0.20-1.00 [facility] Comment on above: For patients on eltr ombopag therapy, use of Dimension [place] TBIL is not recommended. Chloride [Moles/Vol] 95 mmol/L 98-107 [facility] Cholesterol [Mass/Vol] 119 mg/dL <200 [facility] Comment on above: <200 mg/dL Desirable 200-240 mg/dL Borderline >240 mg/dL High Risk Glucose [Mass/Vol] 147 mg/dL 74-106 [facility] Comment on above: Fasting Glucose resu lt greater than or equal to 126 mg/dL suggests DIABETES MELLITUS per A.D.A. criteria. Potassium [Moles/Vol] 3.6 mmol/L 3.5-5.1 [facility] Protein [Mass/Vol] 7.5 g/dL 6.4-8.2 [facility] Sodium [Moles/Vol] 133 mmol/L 136-145 [facility] Triglyceride [Mass/Vol] 81 mg/dL <199 [facility] Comment on above: The drugs N-Acetylcy steine and Metamizole may falsely depress this assay.Serum Triglycerides Reference Interval Normal <150 mg/dL Borderline high 150 - 199 mg/dL High 200 - 499 mg/dL Very High > or = 500 mg/dL WBC (Bld) [#/Vol] 13.6 10*3/uL 4.4-11.0 [facility] Bilirubin Test strip Ql (U)O rdered By: Dr. Rios on 03-07-2022 Bilirubin Ql (U) Negative Negative [facility] Blood erythrocytes count (nu mber/volume)Ordered By: Dr. Rios on 03-07-2022 RBC (Bld) [#/Vol] 4.30 10*6/uL 4.2-5.4 [facility] Blood erythrocytes count (nu mber/volume)Ordered By: Hortensia Unger on 03-07-2022 RBC (Bld) [#/Vol] 4.37 10*6/uL 4.2-5.4 [facility] Blood hemoglobin measurement (mass/volume)Ordered By: Dr. Rios on 03-07-2022 Hemoglobin (Bld) [Mass/Vol] 13.5 g/dL 12.0-15.0 [facility] Blood hemoglobin measurement (mass/volume)Ordered By: Hortensia Unger on 03-07-2022 Hemoglobin (Bld) [Mass/Vol] 13.9 g/dL 12.0-15.0 [facility] Blood lymphocytes/100 leukoc ytesOrdered By: Dr. Rios on 03-07-2022 Lymphocytes/100 WBC (Bld) 14.7 % 19-41 [facility] Blood monocytes/100 leukocyt esOrdered By: Dr. Rios on 03-07-2022 Monocytes/100 WBC (Bld) 9.8 % 0-10 [facility] Blood platelet mean volumeOr dered By: Dr. Rios on 03-07-2022 Platelet mean volume (Bld) [Entitic vol] 10.2 fL 6.2-12.0 [facility] Blood platelet mean volumeOr dered By: Hortensia Unger on 03-07-2022 Platelet mean volume (Bld) [Entitic vol] 10.6 fL 6.2-12.0 [facility] Determination of erythrocyte mean corpuscular volume (MCV)Ordered By: Dr. Rios on 03-07-2022 MCV (RBC) [Entitic vol] 91.2 fL 81-99 [facility] Determination of erythrocyte mean corpuscular volume (MCV)Ordered By: Hortensia Unger on 03-07-2022 MCV (RBC) [Entitic vol] 93.4 fL 81-99 [facility] Direct bilirubinOrdered By: Dr. Rios on 03-07-2022 Bilirubin.direct [Mass/Vol] 0.17 mg/dL 0.00-0.30 [facility] Hematocrit Auto (Bld) [Volum e fraction]Ordered By: Dr. Rios on 03-07-2022 Hematocrit (Bld) [Volume fraction] 39.2 % 37- [facility] Hematocrit Auto (Bld) [Volum e fraction]Ordered By: Hortensia Unger on 03-07-2022 Hematocrit (Bld) [Volume fraction] 40.8 % 37-47 [facility] INR in Blood by Coagulation assayOrdered By: Dr. Rios on 03-07-2022 INR Coag (Bld) [Relative time] 5.6 {INR} [facility] Comment on above: CRITICAL VALUE VERIF IED. CALLED TO BJ BENZ03/07/22 1646 Westley Nath.RESULTS READ BACK BY SAME . INR in Blood by Coagulation assayOrdered By: Hortensia Unger on 03-07-2022 INR Coag (Bld) [Relative time] 4.9 {INR} [facility] Comment on above: CRITICAL VALUE VERIF IED. CALLED TO KHRIS KHAN)03/07/22 1009 Mono Menon.RESULTS READ BACK BY SAME. Influenza virus A and B and SARS-CoV-2 (COVID-19) Ag panel - Upper respiratory specimOrdered By: Dr. Rios on 03-07-2022 SARS-CoV-2 (COVID-19) RNA REMINGTON+probe Ql (Resp) [facility] Ketones Test strip Ql (U)Ord ered By: Dr. Rios on 03-07-2022 Ketones Ql (U) Negative Negative [facility] Laboratory - Chemistry and C hemistry - challengeOrdered By: Dr. Rios on 03-07-2022 ALP [Catalytic activity/Vol] 64 U/L 45-117 [facility] ALT [Catalytic activity/Vol] 17 U/L 13-56 [facility] CO2 [Moles/Vol] 30.0 mmol/L 21.0-32.0 [facility] Globulin (S) [Mass/Vol] 4.1 g/dL 2.2-4.2 [facility] Urea nitrogen/Creatinine [Mass ratio] 17.7 mg/mg 10-20 [facility] Laboratory - Chemistry and C hemistry - challengeOrdered By: Hortensia Unger on 03-07-2022 ALP [Catalytic activity/Vol] 74 U/L 45-117 [facility] ALT [Catalytic activity/Vol] 22 U/L 13-56 [facility] CO2 [Moles/Vol] 28.0 mmol/L 21.0-32.0 [facility] Globulin (S) [Mass/Vol] 4.3 g/dL 2.2-4.2 [facility] Urea nitrogen/Creatinine [Mass ratio] 16.1 mg/mg 03-17 [facility] Laboratory - CoagulationOrde red By: Dr. Rios on 03-07-2022 PT Coag (PPP) [Time] 50.6 s 11.7-14.9 [facility] Laboratory - CoagulationOrde red By: Hortensia Unger on 03-07-2022 PT Coag (PPP) [Time] 45.7 s 11.7-14.9 [facility] Laboratory - Hematology and Cell countsOrdered By: Dr. Rios on 03-07-2022 Erythrocyte distribution width (RBC) [Entitic vol] 40.9 fL 35.1-43.9 [facility] Erythrocyte distribution width (RBC) [Ratio] 12.3 % 11.6-14.6 [facility] Immature granulocytes/100 WBC (Bld) 0.400 % 0.0-0.9 [facility] Comment on above: IG% - Immature Granu locytes (promyelocytes, myelocytes and metamyelocytes) > 1% indicates that a LEFT SHIFT is Present. MCH (RBC) [Entitic mass] 31.4 pg 27.0-32.0 [facility] Nucleated RBC/100 WBC (Bld) [Ratio] 0 % 0-5 [facility] Laboratory - Hematology and Cell countsOrdered By: Hortensia Unger on 03-07-2022 Erythrocyte distribution width (RBC) [Entitic vol] 42.1 fL 35.1-43.9 [facility] Erythrocyte distribution width (RBC) [Ratio] 12.2 % 11.6-14.6 [facility] MCH (RBC) [Entitic mass] 31.8 pg 27.0-32.0 [facility] MCHC Auto (RBC) [Mass/Vol]Or dered By: Dr. Rios on 03-07-2022 MCHC (RBC) [Mass/Vol] 34.4 g/dL 32-36 [facility] MCHC Auto (RBC) [Mass/Vol]Or dered By: Hortensia Unger on 03-07-2022 MCHC (RBC) [Mass/Vol] 34.1 g/dL 32-36 [facility] Mucus LM Ql (Urine sed)Order ed By: Dr. Rios on 03-07-2022 Mucus Ql (Urine sed) 0 SEEN /hpf [facility] Nitrite Test strip Ql (U)Ord ered By: Dr. Rios on 03-07-2022 Nitrite Ql (U) Negative Negative [facility] No Panel InformationOrdered By: Dr. Rios on 03-07-2022 Estimated Creatinine Clearance Calc 31.60 ml/min [facility] Estimated GFR (MDRD) Amer 97 mL/min >60 [facility] Comment on above: GFR Calc Estimated GFR (MDRD) Non-Af Amer 80 mL/min >60 [facility] Comment on above: Non- GFR Calc Troponin I High Sensitivity 9 pg/mL 3.0-54.0 [facility] Comment on above: Please Note: New Amber t Units and Gender Specific Reference Ranges. For more information see Policy Stat Procedure [place] High Sensitivity Troponin (TNIH) and attachments. No Panel InformationOrdered By: Hortensia Unger on 03-07-2022 Estimated GFR (MDRD) Amer 95 mL/min >60 [facility] Comment on above: GFR Calc Estimated GFR (MDRD) Non-Af Amer 79 mL/min >60 [facility] Comment on above: Non- GFR Calc Platelets bldOrdered By: Dr. Rios on 03-07-2022 Platelets (Bld) [#/Vol] 229 10*3/uL 150-450 [facility] Platelets bldOrdered By: Hortensia Unger on 03-07-2022 Platelets (Bld) [#/Vol] 223 10*3/uL 150-450 [facility] Protein Test strip Ql (U)Ord ered By: Dr. Rios on 03-07-2022 Protein Ql (U) Negative Negative [facility] Serum or plasma albumin josué urement (mass/volume)Ordered By: Dr. Rios on 03-07-2022 Albumin [Mass/Vol] 3.3 g/dL 3.2-5.0 [facility] Serum or plasma albumin josué urement (mass/volume)Ordered By: Hortensia Unger on 03-07-2022 Albumin [Mass/Vol] 3.2 g/dL 3.2-5.0 [facility] Serum or plasma albumin/glob ulin mass ratioOrdered By: Hortensia Unger on 03-07-2022 Albumin/Globulin [Mass ratio] 0.7 {ratio} 0.9-2.4 [facility] Serum or plasma calcium josué urement (mass/volume)Ordered By: Dr. Rios on 03-07-2022 Calcium [Mass/Vol] 9.0 mg/dL 8.5-10.1 [facility] Serum or plasma calcium josué urement (mass/volume)Ordered By: Hortensia Unger on 03-07-2022 Calcium [Mass/Vol] 8.9 mg/dL 8.5-10.1 [facility] Serum or plasma cholesterol in HDL measurement (mass/volume)Ordered By: Hortensia Unger on 03-07-2022 Cholesterol in HDL [Mass/Vol] 57 mg/dL >40 [facility] Comment on above: The drugs N-Acetylcy steine and Metamizole may falsely depress this assay. Reference Range HDL <40 mg/dL Low HDL Cholesterol HDL >or= 60 mg/dL High HDL Cholesterol Serum or plasma cholesterol in VLDL measurement (mass/volume)Ordered By: Hortensia Unger on 03-07-2022 Cholesterol in VLDL [Mass/Vol] 16 mg/dL 5-40 [facility] Serum or plasma creatinine m easurement (mass/volume)Ordered By: Dr. Rios on 03-07-2022 Creatinine [Mass/Vol] 0.73 mg/dL 0.55-1.02 [facility] Comment on above: The validity of the calculated GFR & GFRAA in patients over 70 years has not been determined. Clinical correlation is essential. Serum or plasma creatinine m easurement (mass/volume)Ordered By: Hortensia Unger on 03-07-2022 Creatinine [Mass/Vol] 0.75 mg/dL 0.55-1.02 [facility] Comment on above: The validity of the calculated GFR & GFRAA in patients over 70 years has not been determined. Clinical correlation is essential. Serum or plasma low density lipoprotein (LDL) cholesterol measurement (mass/volume)Ordered By: Hortensia Unger on 03-07-2022 Cholesterol in LDL [Mass/Vol] 46 mg/dL 0-130 [facility] Serum or plasma urea nitroge n measurement (mass/volume)Ordered By: Dr. Rios on 03-07-2022 Urea nitrogen [Mass/Vol] 13 mg/dL 7-18 [facility] Serum or plasma urea nitroge n measurement (mass/volume)Ordered By: Hortensia Unger on 03-07-2022 Urea nitrogen [Mass/Vol] 12 mg/dL - [facility] Squamous epithelial cells de tection in urine sediment by light microscopyOrdered By: Dr. Rios on 03-07-2022 Epithelial cells.squamous LM Ql (Urine sed) 0-5 SEEN /hpf 5-10 [facility] Thin prep Papanicolaou smear with manual screeningOrdered By: Dr. Rios on 03-07-2022 Thin prep Papanicolaou smear with manual screening 15 U/L 15- [facility] Thin prep Papanicolaou smear with manual screening 7 5-15 [facility] Thin prep Papanicolaou smear with manual screeningOrdered By: Hortensia Unger on 03-07-2022 Thin prep Papanicolaou smear with manual screening 20 U/L 15-37 [facility] Thin prep Papanicolaou smear with manual screening 10 5-15 [facility] Urine blood detectionOrdered By: Dr. Rios on 03-07-2022 RBC Ql (U) 25 /ul Negative [facility] RBC Ql (U) 5-10 SEEN /hpf 0-5 [facility] Urine clarityOrdered By: Dr. Rios on 03-07-2022 Clarity (U) Clear Clear [facility] Urine color determinationOrd ered By: Dr. Rios on 03-07-2022 Color (U) Yellow Yellow [facility] Urine glucose detectionOrder ed By: Dr. Rios on 03-07-2022 Glucose Ql (U) Normal mg/dl Normal [facility] Urine leukocyte esterase det ection by dipstickOrdered By: Dr. Rios on 03-07-2022 Leukocyte esterase Test strip Ql (U) Negative Negative [facility] Urine pHOrdered By: Dr. Ricky bone on 03-07-2022 pH (U) 6.5 [pH] 5.0 - 8.0 [facility] Urine sediment bacteria coun t by microscopy (number/high power field)Ordered By: Dr. Rios on 03-07-2022 Bacteria LM.HPF (Urine sed) [#/Area] RARE /hpf None Seen [facility] Urine specific gravity measu rementOrdered By: Dr. Rios on 03-07-2022 Specific gravity (U) [Rel density] 1.010 1.002-1.030 [facility] Urobilinogen Auto test strip Ql (U)Ordered By: Dr. Rios on 03-07-2022 Urobilinogen Ql (U) 1 mg/dl Normal [facility] Laboratory - Coagulationon 0 02-03-2022 INR Coag (Bld) [Relative time] 2.1 {INR} [facility] Work Phone: Comment on above: Critical Value > 4.0 Whole blood prothrombin time on 02-03-2022 PT Coag (Bld) [Time] 24.8 s 11.7-14.9 [facility] Work Phone: Laboratory - Coagulationon 0 01-06-2022 INR Coag (Bld) [Relative time] 2.2 {INR} [facility] Work Phone: Comment on above: Critical Value > 4.0 Whole blood prothrombin time on 01-06-2022 PT Coag (Bld) [Time] 25.9 s 11.7-14.9 [facility] Work Phone: Laboratory - Coagulationon 0 12-20-2021 INR Coag (Bld) [Relative time] 2.1 {INR} [facility] Work Phone: Comment on above: Critical Value > 4.0 Whole blood prothrombin time on 12-20-2021 PT Coag (Bld) [Time] 25.2 s 11.7-14.9 [facility] Work Phone: Laboratory - Coagulationon 0 12-13-2021 INR Coag (Bld) [Relative time] 1.4 {INR} [facility] Work Phone: Comment on above: Critical Value > 4.0 Whole blood prothrombin time on 12-13-2021 PT Coag (Bld) [Time] 17.2 s 11.7-14.9 [facility] Work Phone: Basophil percentageon 2021 Chloride [Moles/Vol] 98 mmol/L 98-107 [facility] Work Phone: Cholesterol [Mass/Vol] 114 mg/dL <200 [facility] Work Phone: Comment on above: <200 mg/dL Desirable 200-240 mg/dL Borderline >240 mg/dL High Risk Glucose [Mass/Vol] 111 mg/dL 74-106 [facility] Work Phone: Comment on above: Fasting Glucose resu lt from 100 to 125 mg/dL suggests IMPAIRED HOMEOSTASIS per A.D.A. criteria. Potassium [Moles/Vol] 3.7 mmol/L 3.5-5.1 [facility] Work Phone: Sodium [Moles/Vol] 135 mmol/L 136-145 [facility] Work Phone: Triglyceride [Mass/Vol] 61 mg/dL <199 [facility] Work Phone: Comment on above: The drugs N-Acetylcy steine and Metamizole may falsely depress this assay.Serum Triglycerides Reference Interval Normal <150 mg/dL Borderline high 150 - 199 mg/dL High 200 - 499 mg/dL Very High > or = 500 mg/dL WBC (Bld) [#/Vol] 5.9 10*3/uL 4.4-11.0 [facility] Work Phone: Blood erythrocytes count (nu mber/volume)on 12-10-2021 RBC (Bld) [#/Vol] 3.91 10*6/uL 4.2-5.4 [facility] Work Phone: Blood hemoglobin measurement (mass/volume)on 12-10-2021 Hemoglobin (Bld) [Mass/Vol] 12.4 g/dL 12.0-15.0 [facility] Work Phone: Blood platelet mean volumeon 12-10-2021 Platelet mean volume (Bld) [Entitic vol] 10.3 fL 6.2-12.0 [facility] Work Phone: Determination of erythrocyte mean corpuscular volume (MCV)on 12-10-2021 MCV (RBC) [Entitic vol] 92.1 fL 81-99 [facility] Work Phone: Hematocrit Auto (Bld) [Volum e fraction]on 12-10-2021 Hematocrit (Bld) [Volume fraction] 36.0 % 37-47 [facility] Work Phone: Laboratory - Chemistry and C hemistry - challengeon 12-10-2021 CO2 [Moles/Vol] 32.0 mmol/L 21.0-32.0 [facility] Work Phone: Urea nitrogen/Creatinine [Mass ratio] 18.8 mg/mg 10-20 [facility] Work Phone: Laboratory - Hematology and Cell countson 12-10-2021 Erythrocyte distribution width (RBC) [Entitic vol] 41.1 fL 35.1-43.9 [facility] Work Phone: Erythrocyte distribution width (RBC) [Ratio] 12.3 % 11.6-14.6 [facility] Work Phone: MCH (RBC) [Entitic mass] 31.7 pg 27.0-32.0 [facility] Work Phone: MCHC Auto (RBC) [Mass/Vol]on 12-10-2021 MCHC (RBC) [Mass/Vol] 34.4 g/dL 32-36 [facility] Work Phone: No Panel Informationon 12-10 Estimated GFR (MDRD) Amer 114 mL/min >60 [facility] Work Phone: Comment on above: GFR Calc Estimated GFR (MDRD) Non-Af Amer 94 mL/min >60 [facility] Work Phone: Comment on above: Non- GFR Calc Platelets bldon 12-10-2021 Platelets (Bld) [#/Vol] 206 10*3/uL 150-450 [facility] Work Phone: Serum or plasma calcium josué urement (mass/volume)on 12-10-2021 Calcium [Mass/Vol] 8.7 mg/dL 8.5-10.1 [facility] Work Phone: Serum or plasma cholesterol in HDL measurement (mass/volume)on 12-10-2021 Cholesterol in HDL [Mass/Vol] 48 mg/dL >40 [facility] Work Phone: Comment on above: The drugs N-Acetylcy steine and Metamizole may falsely depress this assay. Reference Range HDL <40 mg/dL Low HDL Cholesterol HDL >or= 60 mg/dL High HDL Cholesterol Serum or plasma cholesterol in VLDL measurement (mass/volume)on 12-10-2021 Cholesterol in VLDL [Mass/Vol] 12 mg/dL 5-40 [facility] Work Phone: Serum or plasma creatinine m easurement (mass/volume)on 12-10-2021 Creatinine [Mass/Vol] 0.64 mg/dL 0.55-1.02 [facility] Work Phone: Comment on above: The validity of the calculated GFR & GFRAA in patients over 70 years has not been determined. Clinical correlation is essential. Serum or plasma low density lipoprotein (LDL) cholesterol measurement (mass/volume)on 12-10-2021 Cholesterol in LDL [Mass/Vol] 54 mg/dL 0-130 [facility] Work Phone: Serum or plasma urea nitroge n measurement (mass/volume)on 12-10-2021 Urea nitrogen [Mass/Vol] 12 mg/dL 7-18 [facility] Work Phone: Thin prep Papanicolaou smear with manual screeningon 12-10-2021 Thin prep Papanicolaou smear with manual screening 5 5-15 [facility] Work Phone: Basophil percentageon 2021 Chloride [Moles/Vol] 96 mmol/L 98-107 [facility] Work Phone: Glucose [Mass/Vol] 126 mg/dL 74-106 [facility] Work Phone: Comment on above: Fasting Glucose resu lt greater than or equal to 126 mg/dL suggests DIABETES MELLITUS per A.D.A. criteria. Potassium [Moles/Vol] 3.5 mmol/L 3.5-5.1 [facility] Work Phone: Sodium [Moles/Vol] 133 mmol/L 136-145 [facility] Work Phone: WBC (Bld) [#/Vol] 7.2 10*3/uL 4.4-11.0 [facility] Work Phone: Blood erythrocytes count (nu mber/volume)on 12-02-2021 RBC (Bld) [#/Vol] 4.59 10*6/uL 4.2-5.4 [facility] Work Phone: Blood hemoglobin measurement (mass/volume)on 12-02-2021 Hemoglobin (Bld) [Mass/Vol] 14.4 g/dL 12.0-15.0 [facility] Work Phone: Blood platelet mean volumeon 12-02-2021 Platelet mean volume (Bld) [Entitic vol] 10.6 fL 6.2-12.0 [facility] Work Phone: Determination of erythrocyte mean corpuscular volume (MCV)on 12-02-2021 MCV (RBC) [Entitic vol] 92.4 fL 81-99 [facility] Work Phone: Hematocrit Auto (Bld) [Volum e fraction]on 12-02-2021 Hematocrit (Bld) [Volume fraction] 42.4 % 37-47 [facility] Work Phone: INR in Blood by Coagulation assayon 12-02-2021 INR Coag (Bld) [Relative time] 1.7 {INR} [facility] Work Phone: Laboratory - Chemistry and C hemistry - challengeon 12-02-2021 CO2 [Moles/Vol] 33.0 mmol/L 21.0-32.0 [facility] Work Phone: Urea nitrogen/Creatinine [Mass ratio] 17.2 mg/mg 10-20 [facility] Work Phone: Laboratory - Coagulationon 0 12-02-2021 PT Coag (PPP) [Time] 19.9 s 11.7-14.9 [facility] Work Phone: Laboratory - Hematology and Cell countson 12-02-2021 Erythrocyte distribution width (RBC) [Entitic vol] 41.6 fL 35.1-43.9 [facility] Work Phone: Erythrocyte distribution width (RBC) [Ratio] 12.2 % 11.6-14.6 [facility] Work Phone: MCH (RBC) [Entitic mass] 31.4 pg 27.0-32.0 [facility] Work Phone: MCHC Auto (RBC) [Mass/Vol]on 12-02-2021 MCHC (RBC) [Mass/Vol] 34.0 g/dL 32-36 [facility] Work Phone: No Panel Informationon 12-02 Estimated GFR (MDRD) Amer 94 mL/min >60 [facility] Work Phone: Comment on above: GFR Calc Estimated GFR (MDRD) Non-Af Amer 78 mL/min >60 [facility] Work Phone: Comment on above: Non- GFR Calc Platelets bldon 12-02-2021 Platelets (Bld) [#/Vol] 248 10*3/uL 150-450 [facility] Work Phone: Serum or plasma calcium josué urement (mass/volume)on 12-02-2021 Calcium [Mass/Vol] 8.9 mg/dL 8.5-10.1 [facility] Work Phone: Serum or plasma creatinine m easurement (mass/volume)on 12-02-2021 Creatinine [Mass/Vol] 0.75 mg/dL 0.55-1.02 [facility] Work Phone: Comment on above: The validity of the calculated GFR & GFRAA in patients over 70 years has not been determined. Clinical correlation is essential. Serum or plasma urea nitroge n measurement (mass/volume)on 12-02-2021 Urea nitrogen [Mass/Vol] 13 mg/dL 7-18 [facility] Work Phone: Thin prep Papanicolaou smear with manual screeningon 12-02-2021 Thin prep Papanicolaou smear with manual screening 4 5-15 [facility] Work Phone: Basophil percentageon 2021 Chloride [Moles/Vol] 102 mmol/L 98-107 [facility] Work Phone: Glucose [Mass/Vol] 110 mg/dL 74-106 [facility] Work Phone: Comment on above: Fasting Glucose resu lt from 100 to 125 mg/dL suggests IMPAIRED HOMEOSTASIS per A.D.A. criteria. Potassium [Moles/Vol] 4.7 mmol/L 3.5-5.1 [facility] Work Phone: Sodium [Moles/Vol] 136 mmol/L 136-145 [facility] Work Phone: WBC (Bld) [#/Vol] 6.5 10*3/uL 4.4-11.0 [facility] Work Phone: Blood erythrocytes count (nu mber/volume)on 11-25-2021 RBC (Bld) [#/Vol] 4.15 10*6/uL 4.2-5.4 [facility] Work Phone: Blood hemoglobin measurement (mass/volume)on 11-25-2021 Hemoglobin (Bld) [Mass/Vol] 13.0 g/dL 12.0-15.0 [facility] Work Phone: Blood platelet mean volumeon 11-25-2021 Platelet mean volume (Bld) [Entitic vol] 10.3 fL 6.2-12.0 [facility] Work Phone: Determination of erythrocyte mean corpuscular volume (MCV)on 11-25-2021 MCV (RBC) [Entitic vol] 91.6 fL 81-99 [facility] Work Phone: Hematocrit Auto (Bld) [Volum e fraction]on 11-25-2021 Hematocrit (Bld) [Volume fraction] 38.0 % 37-47 [facility] Work Phone: Laboratory - Chemistry and C hemistry - challengeon 11-25-2021 CO2 [Moles/Vol] 30.0 mmol/L 21.0-32.0 [facility] Work Phone: Urea nitrogen/Creatinine [Mass ratio] 15.3 mg/mg 10-20 [facility] Work Phone: Laboratory - Hematology and Cell countson 11-25-2021 Erythrocyte distribution width (RBC) [Entitic vol] 41.4 fL 35.1-43.9 [facility] Work Phone: Erythrocyte distribution width (RBC) [Ratio] 12.4 % 11.6-14.6 [facility] Work Phone: MCH (RBC) [Entitic mass] 31.3 pg 27.0-32.0 [facility] Work Phone: MCHC Auto (RBC) [Mass/Vol]on 11-25-2021 MCHC (RBC) [Mass/Vol] 34.2 g/dL 32-36 [facility] Work [facility]: No Panel Informationon 11-25 Estimated GFR (MDRD) Amer 99 mL/min >60 [facility] Work Phone: Comment on above: GFR Calc Estimated GFR (MDRD) Non-Af Amer 82 mL/min >60 [facility] Work Phone: Comment on above: Non- GFR Calc Platelets bldon 11-25-2021 Platelets (Bld) [#/Vol] 209 10*3/uL 150-450 [facility] Work Phone: Serum or plasma calcium josué urement (mass/volume)on 11-25-2021 Calcium [Mass/Vol] 8.8 mg/dL 8.5-10.1 [facility] Work Phone: Serum or plasma creatinine m easurement (mass/volume)on 11-25-2021 Creatinine [Mass/Vol] 0.72 mg/dL 0.55-1.02 [facility] Work Phone: Comment on above: The validity of the calculated GFR & GFRAA in patients over 70 years has not been determined. Clinical correlation is essential. Serum or plasma urea nitroge n measurement (mass/volume)on 11-25-2021 Urea nitrogen [Mass/Vol] 11 mg/dL 7-18 [facility] Work Phone: Thin prep Papanicolaou smear with manual screeningon 11-25-2021 Thin prep Papanicolaou smear with manual screening 4 5-15 [facility] Work Phone: Basophil percentageon 2021 Chloride [Moles/Vol] 98 mmol/L 98-107 [facility] Work Phone: Glucose [Mass/Vol] 112 mg/dL 74-106 [facility] Work Phone: Comment on above: Fasting Glucose resu lt from 100 to 125 mg/dL suggests IMPAIRED HOMEOSTASIS per A.D.A. criteria. Potassium [Moles/Vol] 4.9 mmol/L 3.5-5.1 [facility] Work Phone: Sodium [Moles/Vol] 133 mmol/L 136-145 [facility] Work Phone: Laboratory - Chemistry and C hemistry - challengeon 11-23-2021 CO2 [Moles/Vol] 30.0 mmol/L 21.0-32.0 [facility] Work Phone: Urea nitrogen/Creatinine [Mass ratio] 15.5 mg/mg 10-20 [facility] Work Phone: No Panel Informationon 11-23 Estimated GFR (MDRD) Amer 101 mL/min >60 [facility] Work Phone: Comment on above: GFR Calc Estimated GFR (MDRD) Non-Af Amer 84 mL/min >60 [facility] Work Phone: Comment on above: Non- GFR Calc Serum or plasma calcium josué urement (mass/volume)on 11-23-2021 Calcium [Mass/Vol] 9.3 mg/dL 8.5-10.1 [facility] Work Phone: Serum or plasma creatinine m easurement (mass/volume)on 11-23-2021 Creatinine [Mass/Vol] 0.71 mg/dL 0.55-1.02 [facility] Work Phone: Comment on above: The validity of the calculated GFR & GFRAA in patients over 70 years has not been determined. Clinical correlation is essential. Serum or plasma urea nitroge n measurement (mass/volume)on 11-23-2021 Urea nitrogen [Mass/Vol] 11 mg/dL 7-18 [facility] Work Phone: Thin prep Papanicolaou smear with manual screeningon 11-23-2021 Thin prep Papanicolaou smear with manual screening 5 5-15 [facility] Work Phone: Basophil percentageon 2021 Chloride [Moles/Vol] 97 mmol/L 98-107 [facility] [facility] Work Phone: Glucose [Mass/Vol] 99 mg/dL 74-106 [facility] Work Phone: Potassium [Moles/Vol] 4.2 mmol/L 3.5-5.1 [facility] Work [facility]: Sodium [Moles/Vol] 132 mmol/L 136-145 [facility]: WBC (Bld) [#/Vol] 6.8 10*3/uL 4.4-11.0 [facility] Work Phone: Blood erythrocytes count (nu mber/volume)on 11-18-2021 RBC (Bld) [#/Vol] 4.12 10*6/uL 4.2-5.4 [facility]: Blood hemoglobin measurement (mass/volume)on 11-18-2021 Hemoglobin (Bld) [Mass/Vol] 12.8 g/dL 12.0-15.0 [facility] Work Phone: Blood platelet mean volumeon 11-18-2021 Platelet mean volume (Bld) [Entitic vol] 10.5 fL 6.2-12.0 [facility] Work Phone: Determination of erythrocyte mean corpuscular volume (MCV)on 11-18-2021 MCV (RBC) [Entitic vol] 92.5 fL 81-99 [facility] Work Phone: Hematocrit Auto (Bld) [Volum e fraction]on 11-18-2021 Hematocrit (Bld) [Volume fraction] 38.1 % 37-47 [facility] Work Phone: Laboratory - Chemistry and C hemistry - challengeon 11-18-2021 CO2 [Moles/Vol] 30.0 mmol/L 21.0-32.0 [facility] Work Phone: Urea nitrogen/Creatinine [Mass ratio] 21.1 mg/mg 10-20 [facility] Work Phone: Laboratory - Hematology and Cell countson 11-18-2021 Erythrocyte distribution width (RBC) [Entitic vol] 41.6 fL 35.1-43.9 [facility] Work Phone: Erythrocyte distribution width (RBC) [Ratio] 12.3 % 11.6-14.6 [facility] Work Phone: MCH (RBC) [Entitic mass] 31.1 pg 27.0-32.0 [facility] Work Phone: MCHC Auto (RBC) [Mass/Vol]on 11-18-2021 MCHC (RBC) [Mass/Vol] 33.6 g/dL 32-36 [facility] Work Phone: No Panel Informationon 11-18 Estimated GFR (MDRD) Amer 94 mL/min >60 [facility] Work Phone: Comment on above: GFR Calc Estimated GFR (MDRD) Non-Af Amer 77 mL/min >60 [facility] Work Phone: Comment on above: Non- GFR Calc Platelets bldon 11-18-2021 Platelets (Bld) [#/Vol] 220 10*3/uL 150-450 [facility] Work Phone: Serum or plasma calcium josué urement (mass/volume)on 11-18-2021 Calcium [Mass/Vol] 8.8 mg/dL 8.5-10.1 [facility] Work Phone: Serum or plasma creatinine m easurement (mass/volume)on 11-18-2021 Creatinine [Mass/Vol] 0.76 mg/dL 0.55-1.02 [facility] Work Phone: Comment on above: The validity of the calculated GFR & GFRAA in patients over 70 years has not been determined. Clinical correlation is essential. Serum or plasma urea nitroge n measurement (mass/volume)on 11-18-2021 Urea nitrogen [Mass/Vol] 16 mg/dL 7-18 [facility] Work Phone: Thin prep Papanicolaou smear with manual screeningon 11-18-2021 Thin prep Papanicolaou smear with manual screening 5 5-15 [facility] Work Phone: Absolute lymphocyte counton 11-12-2021 Lymphocytes Auto (Unsp spec) [#/Vol] 1.86 10*3/uL 0.83-4.51 [facility] Work Phone: Basophil percentageon 2021 Basophils/100 WBC (Bld) 0.6 % 0-1 [facility] Work Phone: [phone] Chloride [Moles/Vol] 104 mmol/L 98-107 [facility] Work Phone: Eosinophils/100 WBC (Bld) 3.9 % 0-5 [facility] Work Phone: Glucose [Mass/Vol] 103 mg/dL 74-106 [facility] Work Phone: Comment on above: Fasting Glucose resu lt from 100 to 125 mg/dL suggests IMPAIRED HOMEOSTASIS per A.D.A. criteria. Neutrophils (Bld) [#/Vol] 3.7 10*3/uL 2.0-7.7 [facility] Work Phone: Neutrophils/100 WBC (Bld) 56.9 % 47-70 [facility] Work Phone: Potassium [Moles/Vol] 4.1 mmol/L 3.5-5.1 [facility] Work Phone: Sodium [Moles/Vol] 137 mmol/L 136-145 [facility] Work Phone: [phone] WBC (Bld) [#/Vol] 6.4 10*3/uL 4.4-11.0 [facility] Work Phone: Blood erythrocytes count (nu mber/volume)on 11-12-2021 RBC (Bld) [#/Vol] 3.99 10*6/uL 4.2-5.4 [facility] Work Phone: Blood hemoglobin measurement (mass/volume)on 11-12-2021 Hemoglobin (Bld) [Mass/Vol] 12.5 g/dL 12.0-15.0 [facility] Work Phone: Blood lymphocytes/100 leukoc yteson 11-12-2021 Lymphocytes/100 WBC (Bld) 29.0 % 19-41 [facility] Work Phone: Blood monocytes/100 leukocyt eson 11-12-2021 Monocytes/100 WBC (Bld) 9.4 % 0-10 [facility] Work Phone: Blood platelet mean volumeon 11-12-2021 Platelet mean volume (Bld) [Entitic vol] 10.1 fL 6.2-12.0 [facility] Work Phone: Determination of erythrocyte mean corpuscular volume (MCV)on 11-12-2021 MCV (RBC) [Entitic vol] 93.7 fL 81-99 [facility] Work Phone: Hematocrit Auto (Bld) [Volum e fraction]on 11-12-2021 Hematocrit (Bld) [Volume fraction] 37.4 % 37-47 [facility] Work Phone: Laboratory - Chemistry and C hemistry - challengeon 11-12-2021 CO2 [Moles/Vol] 30.0 mmol/L 21.0-32.0 [facility] Work Phone: Urea nitrogen/Creatinine [Mass ratio] 21.6 mg/mg 10-20 [facility] Work Phone: Laboratory - Hematology and Cell countson 11-12-2021 Erythrocyte distribution width (RBC) [Entitic vol] 41.7 fL 35.1-43.9 [facility] Work Phone: Erythrocyte distribution width (RBC) [Ratio] 12.0 % 11.6-14.6 [facility] Work Phone: Immature granulocytes/100 WBC (Bld) 0.200 % 0.0-0.9 [facility] Work Phone: Comment on above: IG% - Immature Granu locytes (promyelocytes, myelocytes and metamyelocytes) > 1% indicates that a LEFT SHIFT is Present. MCH (RBC) [Entitic mass] 31.3 pg 27.0-32.0 [facility] Work Phone: Nucleated RBC/100 WBC (Bld) [Ratio] 0 % 0-5 [facility] Work Phone: MCHC Auto (RBC) [Mass/Vol]on 11-12-2021 MCHC (RBC) [Mass/Vol] 33.4 g/dL 32-36 [facility] Work Phone: No Panel Informationon 11-12 Estimated Creatinine Clearance Calc 30.08 ml/min [facility] Work Phone: Estimated GFR (MDRD) Amer 122 mL/min >60 [facility] Work Phone: Comment on above: GFR Calc Estimated GFR (MDRD) Non-Af Amer 101 mL/min >60 [facility] Work Phone: Comment on above: Non- GFR Calc Platelets bldon 11-12-2021 Platelets (Bld) [#/Vol] 204 10*3/uL 150-450 [facility] Work Phone: Serum or plasma calcium josué urement (mass/volume)on 11-12-2021 Calcium [Mass/Vol] 8.6 mg/dL 8.5-10.1 [facility] Work Phone: Serum or plasma creatinine m easurement (mass/volume)on 11-12-2021 Creatinine [Mass/Vol] 0.60 mg/dL 0.55-1.02 [facility] Work Phone: Comment on above: The validity of the calculated GFR & GFRAA in patients over 70 years has not been determined. Clinical correlation is essential. Serum or plasma urea nitroge n measurement (mass/volume)on 11-12-2021 Urea nitrogen [Mass/Vol] 13 mg/dL 7-18 [facility] Work Phone: Thin prep Papanicolaou smear with manual screeningon 11-12-2021 Thin prep Papanicolaou smear with manual screening 3 5-15 [facility] Work Phone: [phone] INR in Blood by Coagulation assayon 11-11-2021 INR Coag (Bld) [Relative time] 2.3 {INR} [facility] Work Phone: [phone] Laboratory - Coagulationon 0 11-11-2021 PT Coag (PPP) [Time] 24.6 s 11.7-14.9 [facility] Work Phone: INR in Blood by Coagulation assayon 11-08-2021 INR Coag (Bld) [Relative time] 3.0 {INR} [facility] Work Phone: Laboratory - Coagulationon 0 11-08-2021 PT Coag (PPP) [Time] 30.5 s 11.7-14.9 [facility] Work Phone: Basophil percentageon 2021 Chloride [Moles/Vol] 106 mmol/L 98-107 [facility] Work Phone: Glucose [Mass/Vol] 107 mg/dL 74-106 [facility] Work Phone: Comment on above: Fasting Glucose resu lt from 100 to 125 mg/dL suggests IMPAIRED HOMEOSTASIS per A.D.A. criteria. Potassium [Moles/Vol] 4.0 mmol/L 3.5-5.1 [facility] Work Phone: Sodium [Moles/Vol] 139 mmol/L 136-145 [facility] Work Phone: Laboratory - Chemistry and C hemistry - challengeon 11-07-2021 CO2 [Moles/Vol] 30.0 mmol/L 21.0-32.0 [facility] Work Phone: Urea nitrogen/Creatinine [Mass ratio] 22.2 mg/mg 10-20 [facility] Work Phone: No Panel Informationon 11-07 Estimated Creatinine Clearance Calc 30.08 ml/min [facility] Work Phone: Estimated GFR (MDRD) Amer 116 mL/min >60 [facility] Work Phone: Comment on above: GFR Calc Estimated GFR (MDRD) Non-Af Amer 96 mL/min >60 [facility] Work Phone: Comment on above: Non- GFR Calc Serum or plasma calcium josué urement (mass/volume)on 11-07-2021 Calcium [Mass/Vol] 8.9 mg/dL 8.5-10.1 [facility] Work Phone: Serum or plasma creatinine m easurement (mass/volume)on 11-07-2021 Creatinine [Mass/Vol] 0.63 mg/dL 0.55-1.02 [facility] Work Phone: Comment on above: The validity of the calculated GFR & GFRAA in patients over 70 years has not been determined. Clinical correlation is essential. Serum or plasma urea nitroge n measurement (mass/volume)on 11-07-2021 Urea nitrogen [Mass/Vol] 14 mg/dL 7-18 [facility] Work Phone: Thin prep Papanicolaou smear with manual screeningon 11-07-2021 Thin prep Papanicolaou smear with manual screening 3 5-15 [facility] Work Phone: Absolute lymphocyte counton 11-05-2021 Lymphocytes Auto (Unsp spec) [#/Vol] 2.23 10*3/uL 0.83-4.51 [facility] Work Phone: Basophil percentageon 2021 Basophils/100 WBC (Bld) 0.7 % 0-1 [facility] Work Phone: Eosinophils/100 WBC (Bld) 2.6 % 0-5 [facility] Work Phone: Neutrophils (Bld) [#/Vol] 3.9 10*3/uL 2.0-7.7 [facility] Work Phone: Neutrophils/100 WBC (Bld) 56.0 % 47-70 [facility] Work Phone: WBC (Bld) [#/Vol] 7.0 10*3/uL 4.4-11.0 [facility] Work Phone: Blood erythrocytes count (nu mber/volume)on 11-05-2021 RBC (Bld) [#/Vol] 4.10 10*6/uL 4.2-5.4 [facility] Work Phone: Blood hemoglobin measurement (mass/volume)on 11-05-2021 Hemoglobin (Bld) [Mass/Vol] 12.8 g/dL 12.0-15.0 [facility] Work Phone: Blood lymphocytes/100 leukoc yteson 11-05-2021 Lymphocytes/100 WBC (Bld) 31.9 % 19-41 [facility] Work Phone: Blood monocytes/100 leukocyt eson 11-05-2021 Monocytes/100 WBC (Bld) 8.4 % 0-10 [facility] Work Phone: Blood platelet mean volumeon 11-05-2021 Platelet mean volume (Bld) [Entitic vol] 10.1 fL 6.2-12.0 [facility] Work Phone: Determination of erythrocyte mean corpuscular volume (MCV)on 11-05-2021 MCV (RBC) [Entitic vol] 91.5 fL 81-99 [facility] Work Phone: Hematocrit Auto (Bld) [Volum e fraction]on 11-05-2021 Hematocrit (Bld) [Volume fraction] 37.5 % 37-47 [facility] Work Phone: Laboratory - Hematology and Cell countson 11-05-2021 Erythrocyte distribution width (RBC) [Entitic vol] 41.1 fL 35.1-43.9 [facility] Work Phone: Erythrocyte distribution width (RBC) [Ratio] 12.4 % 11.6-14.6 [facility] Work Phone: Immature granulocytes/100 WBC (Bld) 0.400 % 0.0-0.9 [facility] Work Phone: Comment on above: IG% - Immature Granu locytes (promyelocytes, myelocytes and metamyelocytes) > 1% indicates that a LEFT SHIFT is Present. MCH (RBC) [Entitic mass] 31.2 pg 27.0-32.0 [facility] Work Phone: Nucleated RBC/100 WBC (Bld) [Ratio] 0 % 0-5 [facility] Work Phone: MCHC Auto (RBC) [Mass/Vol]on 11-05-2021 MCHC (RBC) [Mass/Vol] 34.1 g/dL 32-36 [facility] Work Phone: Platelets bldon 11-05-2021 Platelets (Bld) [#/Vol] 211 10*3/uL 150-450 [facility] Work Phone: Basophil percentageon 2021 Chloride [Moles/Vol] 105 mmol/L 98-107 [facility] Work Phone: Glucose [Mass/Vol] 106 mg/dL 74-106 [facility] Work Phone: Comment on above: Fasting Glucose resu lt from 100 to 125 mg/dL suggests IMPAIRED HOMEOSTASIS per A.D.A. criteria. Potassium [Moles/Vol] 3.5 mmol/L 3.5-5.1 [facility] Work Phone: Sodium [Moles/Vol] 137 mmol/L 136-145 [facility] Work Phone: Laboratory - Chemistry and C hemistry - challengeon 11-04-2021 CO2 [Moles/Vol] 26.0 mmol/L 21.0-32.0 [facility] Work Phone: Urea nitrogen/Creatinine [Mass ratio] 17.1 mg/mg 10-20 [facility] Work Phone: No Panel Informationon 11-04 Estimated Creatinine Clearance Calc 30.08 ml/min [facility] Work Phone: Estimated GFR (MDRD) Amer 126 mL/min >60 [facility] Work Phone: Comment on above: GFR Calc Estimated GFR (MDRD) Non-Af Amer 104 mL/min >60 [facility] Work Phone: Comment on above: Non- GFR Calc Serum or plasma calcium josué urement (mass/volume)on 11-04-2021 Calcium [Mass/Vol] 8.7 mg/dL 8.5-10.1 [facility] Work Phone: Serum or plasma creatinine m easurement (mass/volume)on 11-04-2021 Creatinine [Mass/Vol] 0.58 mg/dL 0.55-1.02 [facility] Work Phone: Comment on above: The validity of the calculated GFR & GFRAA in patients over 70 years has not been determined. Clinical correlation is essential. Serum or plasma urea nitroge n measurement (mass/volume)on 11-04-2021 Urea nitrogen [Mass/Vol] 10 mg/dL 7-18 [facility] Work Phone: Thin prep Papanicolaou smear with manual screeningon 11-04-2021 Thin prep Papanicolaou smear with manual screening 6 5-15 [facility] Work Phone: Absolute lymphocyte counton 11-03-2021 Lymphocytes Auto (Unsp spec) [#/Vol] 1.58 10*3/uL 0.83-4.51 [facility] Work Phone: Basophil percentageon 2021 Basophils/100 WBC (Bld) 0.6 % 0-1 [facility] Work Phone: Eosinophils/100 WBC (Bld) 1.7 % 0-5 [facility] Work Phone: Neutrophils (Bld) [#/Vol] 4.2 10*3/uL 2.0-7.7 [facility] Work Phone: Neutrophils/100 WBC (Bld) 63.5 % 47-70 [facility] Work Phone: WBC (Bld) [#/Vol] 6.6 10*3/uL 4.4-11.0 [facility] Work [facility]: Blood erythrocytes count (nu mber/volume)on 11-03-2021 RBC (Bld) [#/Vol] 4.46 10*6/uL 4.2-5.4 [facility] Work [facility]: Blood hemoglobin measurement (mass/volume)on 11-03-2021 Hemoglobin (Bld) [Mass/Vol] 13.8 g/dL 12.0-15.0 [facility] Work Phone: Blood lymphocytes/100 leukoc yteson 11-03-2021 Lymphocytes/100 WBC (Bld) 23.8 % 19-41 [facility] Work Phone: Blood monocytes/100 leukocyt eson 11-03-2021 Monocytes/100 WBC (Bld) 10.1 % 0-10 [facility] Work Phone: Blood platelet mean volumeon 11-03-2021 Platelet mean volume (Bld) [Entitic vol] 10.4 fL 6.2-12.0 [facility] Work Phone: Determination of erythrocyte mean corpuscular volume (MCV)on 11-03-2021 MCV (RBC) [Entitic vol] 90.4 fL 81-99 [facility] Work Phone: Hematocrit Auto (Bld) [Volum e fraction]on 11-03-2021 Hematocrit (Bld) [Volume fraction] 40.3 % 37-47 [facility] Work Phone: INR in Blood by Coagulation assayon 11-03-2021 INR Coag (Bld) [Relative time] 2.5 {INR} [facility] Work Phone: Laboratory - Coagulationon 0 11-03-2021 PT Coag (PPP) [Time] 26.7 s 11.7-14.9 [facility] Work Phone: Laboratory - Hematology and Cell countson 11-03-2021 Erythrocyte distribution width (RBC) [Entitic vol] 39.0 fL 35.1-43.9 [facility] Work Phone: Erythrocyte distribution width (RBC) [Ratio] 11.9 % 11.6-14.6 [facility] Work Phone: Immature granulocytes/100 WBC (Bld) 0.300 % 0.0-0.9 [facility] Work Phone: Comment on above: IG% - Immature Granu locytes (promyelocytes, myelocytes and metamyelocytes) > 1% indicates that a LEFT SHIFT is Present. MCH (RBC) [Entitic mass] 30.9 pg 27.0-32.0 [facility] Work Phone: Nucleated RBC/100 WBC (Bld) [Ratio] 0 % 0-5 [facility] Work Phone: MCHC Auto (RBC) [Mass/Vol]on 11-03-2021 MCHC (RBC) [Mass/Vol] 34.2 g/dL 32-36 [facility] Work Phone: Platelets bldon 11-03-2021 Platelets (Bld) [#/Vol] 188 10*3/uL 150-450 [facility] Work Phone: [phone] Absolute lymphocyte counton 11-02-2021 Lymphocytes Auto (Unsp spec) [#/Vol] 1.37 10*3/uL 0.83-4.51 [facility] Work Phone: [phone] Basophil percentageon 2021 Basophil percentage 0 SEEN /hpf 0-5 [facility] Work Phone: Basophils/100 WBC (Bld) 0.4 % 0-1 [facility] Work Phone: Chloride [Moles/Vol] 92 mmol/L 98-107 [facility] Work [facility]: Eosinophils/100 WBC (Bld) 0.3 % 0-5 [facility] Work Phone: Glucose [Mass/Vol] 182 mg/dL 74-106 [facility] Work Phone: Comment on above: Fasting Glucose resu lt greater than or equal to 126 mg/dL suggests DIABETES MELLITUS per A.D.A. criteria. Neutrophils (Bld) [#/Vol] 6.0 10*3/uL 2.0-7.7 [facility] Work Phone: Neutrophils/100 WBC (Bld) 75.5 % 47-70 [facility] Work Phone: Potassium [Moles/Vol] 3.2 mmol/L 3.5-5.1 [facility] Work Phone: Sodium [Moles/Vol] 129 mmol/L 136-145 [facility] Work Phone: WBC (Bld) [#/Vol] 7.9 10*3/uL 4.4-11.0 [facility] Work Phone: Bilirubin Test strip Ql (U)o n 11-02-2021 Bilirubin Ql (U) Negative Negative [facility] Work Phone: Blood erythrocytes count (nu mber/volume)on 11-02-2021 RBC (Bld) [#/Vol] 4.51 10*6/uL 4.2-5.4 [facility] Work [facility]: Blood hemoglobin measurement (mass/volume)on 11-02-2021 Hemoglobin (Bld) [Mass/Vol] 14.1 g/dL 12.0-15.0 [facility] Work Phone: [phone] Blood lymphocytes/100 leukoc yteson 11-02-2021 Lymphocytes/100 WBC (Bld) 17.4 % 19-41 [facility] Work Phone: Blood monocytes/100 leukocyt eson 11-02-2021 Monocytes/100 WBC (Bld) 6.1 % 0-10 [facility] Work Phone: Blood platelet mean volumeon 11-02-2021 Platelet mean volume (Bld) [Entitic vol] 10.1 fL 6.2-12.0 [facility] Work Phone: Determination of erythrocyte mean corpuscular volume (MCV)on 11-02-2021 MCV (RBC) [Entitic vol] 89.1 fL 81-99 [facility] Work Phone: Hematocrit Auto (Bld) [Volum e fraction]on 11-02-2021 Hematocrit (Bld) [Volume fraction] 40.2 % 37-47 [facility] Work Phone: INR in Blood by Coagulation assayon 11-02-2021 INR Coag (Bld) [Relative time] 2.2 {INR} [facility] Work Phone: Ketones Test strip Ql (U)on 11-02-2021 Ketones Ql (U) 5 mg/dl Negative [facility] Work Phone: Laboratory - Chemistry and C hemistry - challengeon 11-02-2021 Sodium (U) [Moles/Vol] 35 mmol/L Not Establ. [facility] Work Phone: CO2 [Moles/Vol] 30.0 mmol/L 21.0-32.0 [facility] Work Phone: Urea nitrogen/Creatinine [Mass ratio] 18.4 mg/mg 10-20 [facility] Work Phone: Laboratory - Coagulationon 0 11-02-2021 PT Coag (PPP) [Time] 23.8 s 11.7-14.9 [facility] Work Phone: Laboratory - Hematology and Cell countson 11-02-2021 Erythrocyte distribution width (RBC) [Entitic vol] 37.6 fL 35.1-43.9 [facility] Work Phone: Erythrocyte distribution width (RBC) [Ratio] 11.7 % 11.6-14.6 [facility] Work Phone: Immature granulocytes/100 WBC (Bld) 0.300 % 0.0-0.9 [facility] Work Phone: Comment on above: IG% - Immature Granu locytes (promyelocytes, myelocytes and metamyelocytes) > 1% indicates that a LEFT SHIFT is Present. MCH (RBC) [Entitic mass] 31.3 pg 27.0-32.0 [facility] Work Phone: Nucleated RBC/100 WBC (Bld) [Ratio] 0 % 0-5 [facility] Work Phone: MCHC Auto (RBC) [Mass/Vol]on 11-02-2021 MCHC (RBC) [Mass/Vol] 35.1 g/dL 32-36 [facility] Work Phone: Mucus LM Ql (Urine sed)on Mucus Ql (Urine sed) 0 SEEN /hpf [facility] Work Phone: Nitrite Test strip Ql (U)on 11-02-2021 Nitrite Ql (U) Negative Negative [facility] Work Phone: No Panel Informationon 11-02 Estimated Creatinine Clearance Calc 36.68 ml/min [facility] Work Phone: Estimated GFR (MDRD) Amer 86 mL/min >60 [facility] Work Phone: Comment on above: GFR Calc Estimated GFR (MDRD) Non-Af Amer 71 mL/min >60 [facility] Work Phone: Comment on above: Non- GFR Calc Troponin I High Sensitivity 12 pg/mL 3.0-54.0 [facility] Work Phone: Comment on above: Please Note: New Amber t Units and Gender Specific Reference Ranges. For more information see Policy Stat Procedure [place] High Sensitivity Troponin (TNIH) and attachments. Platelets bldon 11-02-2021 Platelets (Bld) [#/Vol] 222 10*3/uL 150-450 [facility] Work Phone: Protein Test strip Ql (U)on 11-02-2021 Protein Ql (U) Negative Negative [facility] Work Phone: Serum or plasma calcium josué urement (mass/volume)on 11-02-2021 Calcium [Mass/Vol] 9.1 mg/dL 8.5-10.1 [facility] Work Phone: Serum or plasma creatinine m easurement (mass/volume)on 11-02-2021 Creatinine [Mass/Vol] 0.82 mg/dL 0.55-1.02 [facility] Work Phone: Comment on above: The validity of the calculated GFR & GFRAA in patients over 70 years has not been determined. Clinical correlation is essential. Serum or plasma urea nitroge n measurement (mass/volume)on 11-02-2021 Urea nitrogen [Mass/Vol] 15 mg/dL 7-18 [facility] Work Phone: Squamous epithelial cells de tection in urine sediment by light microscopyon 11-02-2021 Epithelial cells.squamous LM Ql (Urine sed) 0-5 SEEN /hpf 5-10 [facility] Work Phone: Thin prep Papanicolaou smear with manual screeningon 11-02-2021 Thin prep Papanicolaou smear with manual screening 275 mOsm/KG 280-301 [facility] Work Phone: Thin prep Papanicolaou smear with manual screening 7 5-15 [facility] Work Phone: Urine blood detectionon RBC Ql (U) 25 /ul Negative [facility] Work Phone: RBC Ql (U) 0-5 SEEN /hpf 0-5 [facility] Work Phone: Urine clarityon 11-02-2021 Clarity (U) Clear Clear [facility] Work Phone: Urine color determinationon 11-02-2021 Color (U) Yellow Yellow [facility] Work Phone: Urine glucose detectionon Glucose Ql (U) Normal mg/dl Normal [facility] Work Phone: Urine leukocyte esterase det ection by dipstickon 11-02-2021 Leukocyte esterase Test strip Ql (U) Negative Negative [facility] Work Phone: Urine osmolality measurement on 11-02-2021 Osmolality (U) [Osmolality] 253 mOsm/KG >50 [facility] Work Phone: Comment on above: Normal Urine Referen ce Ranges Random: 50 - 1200 mOsm/kg H20 depending on fluid intake Random: >850 mOsm/kg after 12 hour fluid restriction 24 hour: ~300 - 900 mOsm/kg H2O Urine pHon 11-02-2021 pH (U) 6.0 [pH] 5.0 - 8.0 [facility] Work Phone: Urine sediment bacteria coun t by microscopy (number/high power field)on 11-02-2021 Bacteria LM.HPF (Urine sed) [#/Area] 0 /[HPF] None Seen [facility] Work Phone: Urine specific gravity measu rementon 11-02-2021 Specific gravity (U) [Rel density] 1.015 1.002-1.030 [facility] Work Phone: Urobilinogen Auto test strip Ql (U)on 11-02-2021 Urobilinogen Ql (U) Normal mg/dl Normal [place] [facility] Work Phone: Basophil percentageon 2021 Chloride [Moles/Vol] 99 mmol/L 98-[address] [facility] Work Phone: Glucose [Mass/Vol] 108 mg/dL 74-106 [place] [facility] Work Phone: Comment on above: Fasting Glucose resu lt from 100 to 125 mg/dL suggests IMPAIRED HOMEOSTASIS per A.D.A. criteria. Potassium [Moles/Vol] 4.2 mmol/L 3.5-5.1 [facility] Work Phone: Sodium [Moles/Vol] 137 mmol/L 136-145 [facility] Work Phone: INR in Blood by Coagulation assayon 10-21-2021 INR Coag (Bld) [Relative time] 2.1 {INR} [facility] Work Phone: Laboratory - Chemistry and C hemistry - challengeon 10-21-2021 CO2 [Moles/Vol] 34.0 mmol/L 21.0-32.0 [facility] Work Phone: Urea nitrogen/Creatinine [Mass ratio] 19.7 mg/mg 10-20 [facility] Work Phone: Laboratory - Coagulationon 0 10-21-2021 PT Coag (PPP) [Time] 23.2 s 11.7-14.9 [facility] Work Phone: No Panel Informationon 10-21 Estimated GFR (MDRD) Amer 93 mL/min >60 [facility] Work Phone: Comment on above: GFR Calc Estimated GFR (MDRD) Non-Af Amer 77 mL/min >60 [facility] Work Phone: Comment on above: Non- GFR Calc Serum or plasma calcium josué urement (mass/volume)on 10-21-2021 Calcium [Mass/Vol] 9.1 mg/dL 8.5-10.1 [facility] Work Phone: Serum or plasma creatinine m easurement (mass/volume)on 10-21-2021 Creatinine [Mass/Vol] 0.76 mg/dL 0.55-1.02 [facility] Work Phone: Comment on above: The validity of the calculated GFR & GFRAA in patients over 70 years has not been determined. Clinical correlation is essential. Serum or plasma urea nitroge n measurement (mass/volume)on 10-21-2021 Urea nitrogen [Mass/Vol] 15 mg/dL 7-18 [facility] Work Phone: Thin prep Papanicolaou smear with manual screeningon 10-21-2021 Thin prep Papanicolaou smear with manual screening 4 - [facility] Work Phone: INR in Blood by Coagulation assayon 10-13-2021 INR Coag (Bld) [Relative time] 3.1 {INR} [facility] Work Phone: Laboratory - Coagulationon 0 10-13-2021 PT Coag (PPP) [Time] 31.8 s 11.7-14.9 [facility] Work Phone: Laboratory - Coagulationon 0 10-06-2021 INR Coag (Bld) [Relative time] 1.6 {INR} [facility] Work Phone: Comment on above: Critical Value > 4.0 Whole blood prothrombin time on 10-06-2021 PT Coag (Bld) [Time] 19.7 s 11.7-14.9 [facility] Work Phone: Basophil percentageon 2021 Chloride [Moles/Vol] 100 mmol/L 98-107 [facility] Work Phone: Glucose [Mass/Vol] 87 mg/dL 74-106 [facility] Work Phone: Potassium [Moles/Vol] 3.6 mmol/L 3.5-5.1 [facility] Work Phone: [phone] Sodium [Moles/Vol] 138 mmol/L 136-145 [facility] Work Phone: Laboratory - Chemistry and C hemistry - challengeon 09-29-2021 CO2 [Moles/Vol] 31.0 mmol/L 21.0-32.0 [facility] Work Phone: [phone] Natriuretic peptide B (Bld) [Mass/Vol] 372.7 pg/mL 0-100 [facility] Work Phone: Urea nitrogen/Creatinine [Mass ratio] 17.1 mg/mg 10-20 [facility] Work Phone: No Panel Informationon 09-29 Estimated GFR (MDRD) Amer 113 mL/min >60 [facility] Work Phone: Comment on above: GFR Calc Estimated GFR (MDRD) Non-Af Amer 94 mL/min >60 [facility] Work Phone: Comment on above: Non- GFR Calc Serum or plasma calcium josué urement (mass/volume)on 09-29-2021 Calcium [Mass/Vol] 8.7 mg/dL 8.5-10.1 [facility] Work Phone: Serum or plasma creatinine m easurement (mass/volume)on 09-29-2021 Creatinine [Mass/Vol] 0.64 mg/dL 0.55-1.02 [facility] Work Phone: Comment on above: The validity of the calculated GFR & GFRAA in patients over 70 years has not been determined. Clinical correlation is essential. Serum or plasma urea nitroge n measurement (mass/volume)on 09-29-2021 Urea nitrogen [Mass/Vol] 11 mg/dL 7-18 [facility] Work Phone: Thin prep Papanicolaou smear with manual screeningon 09-29-2021 Thin prep Papanicolaou smear with manual screening 7 5-15 [facility] Work Phone: Laboratory - Coagulationon 0 09-14-2021 INR Coag (Bld) [Relative time] 2.1 {INR} [facility] Work Phone: Comment on above: Critical Value > 4.0 Whole blood prothrombin time on 09-14-2021 PT Coag (Bld) [Time] 25.1 s 11.7-14.9 [facility] Work Phone: Laboratory - Coagulationon 0 08-27-2021 INR Coag (Bld) [Relative time] 2.4 {INR} [facility] Work Phone: Comment on above: Critical Value > 4.0 Whole blood prothrombin time on 08-27-2021 PT Coag (Bld) [Time] 27.5 s 11.7-14.9 [facility] Work Phone: Laboratory - Coagulationon 0 08-11-2021 INR Coag (Bld) [Relative time] 1.3 {INR} [facility] Work Phone: Comment on above: Critical Value > 4.0 Whole blood prothrombin time on 08-11-2021 PT Coag (Bld) [Time] 15.7 s 11.7-14.9 [facility] Work Phone: Laboratory - Coagulationon 0 07-28-2021 INR Coag (Bld) [Relative time] 1.2 {INR} [facility] Work Phone: Comment on above: Critical Value > 4.0 Whole blood prothrombin time on 07-28-2021 PT Coag (Bld) [Time] 15.1 s 11.7-14.9 [facility] Work Phone: Laboratory - Coagulationon 0 07-14-2021 INR Coag (Bld) [Relative time] 1.5 {INR} [facility] Work Phone: Comment on above: Critical Value > 4.0 Whole blood prothrombin time on 07-14-2021 PT Coag (Bld) [Time] 18.2 s 11.9-14.4 [facility] Work Phone: Absolute lymphocyte counton 06-26-2021 Lymphocytes Auto (Unsp spec) [#/Vol] 2.42 10*3/uL 0.83-4.51 [facility] Work Phone: Basophil percentageon 2021 Basophils/100 WBC (Bld) 0.7 % 0-1 [facility] Work Phone: Chloride [Moles/Vol] 105 mmol/L 98-107 [facility] Work Phone: Eosinophils/100 WBC (Bld) 3.6 % 0-5 [facility] Work Phone: Glucose [Mass/Vol] 122 mg/dL 74-106 [facility] Work Phone: [phone] Comment on above: Fasting Glucose resu lt from 100 to 125 mg/dL suggests IMPAIRED HOMEOSTASIS per A.D.A. criteria. Neutrophils (Bld) [#/Vol] 5.0 10*3/uL 2.0-7.7 [facility] Work Phone: Neutrophils/100 WBC (Bld) 58.8 % 47-70 [facility] Work Phone: Potassium [Moles/Vol] 3.8 mmol/L 3.5-5.1 [facility] Work Phone: Sodium [Moles/Vol] 140 mmol/L 136-145 [facility] Work Phone: WBC (Bld) [#/Vol] 8.6 10*3/uL 4.4-11.0 [facility] Work Phone: Blood erythrocytes count (nu mber/volume)on 06-26-2021 RBC (Bld) [#/Vol] 5.15 10*6/uL 4.2-5.4 [facility] Work Phone: Blood hemoglobin measurement (mass/volume)on 06-26-2021 Hemoglobin (Bld) [Mass/Vol] 15.7 g/dL 12.0-15.0 [facility] Work Phone: Blood lymphocytes/100 leukoc yteson 06-26-2021 Lymphocytes/100 WBC (Bld) 28.3 % 19-41 [facility] Work Phone: Blood monocytes/100 leukocyt eson 06-26-2021 Monocytes/100 WBC (Bld) 8.4 % 0-10 [facility] Work Phone: Blood platelet mean volumeon 06-26-2021 Platelet mean volume (Bld) [Entitic vol] 10.2 fL 6.2-12.0 [facility] Work Phone: Determination of erythrocyte mean corpuscular volume (MCV)on 06-26-2021 MCV (RBC) [Entitic vol] 94.0 fL 81-99 [facility] Work Phone: Hematocrit Auto (Bld) [Volum e fraction]on 06-26-2021 Hematocrit (Bld) [Volume fraction] 48.4 % 37-47 [facility] Work Phone: Laboratory - Chemistry and C hemistry - challengeon 06-26-2021 CO2 [Moles/Vol] 32.0 mmol/L 21.0-32.0 [facility] Work Phone: Urea nitrogen/Creatinine [Mass ratio] 20.4 mg/mg 10-20 [facility] Work Phone: Laboratory - Hematology and Cell countson 06-26-2021 Erythrocyte distribution width (RBC) [Entitic vol] 43.7 fL 35.1-43.9 [facility] Work Phone: Erythrocyte distribution width (RBC) [Ratio] 12.7 % 11.6-14.6 [facility] Work Phone: Immature granulocytes/100 WBC (Bld) 0.200 % 0.0-0.9 [facility] Work Phone: Comment on above: IG% - Immature Granu locytes (promyelocytes, myelocytes and metamyelocytes) > 1% indicates that a LEFT SHIFT is Present. MCH (RBC) [Entitic mass] 30.5 pg 27.0-32.0 [facility] Work Phone: Nucleated RBC/100 WBC (Bld) [Ratio] 0 % 0-5 [facility] Work Phone: MCHC Auto (RBC) [Mass/Vol]on 06-26-2021 MCHC (RBC) [Mass/Vol] 32.4 g/dL 32-36 [facility] Work Phone: No Panel Informationon 06-26 Estimated Creatinine Clearance Calc 32.17 ml/min [facility] Work Phone: Estimated GFR (MDRD) Amer 114 mL/min >60 [facility] Work Phone: Comment on above: GFR Calc Estimated GFR (MDRD) Non-Af Amer 94 mL/min >60 [facility] Work Phone: Comment on above: Non- GFR Calc Platelets bldon 06-26-2021 Platelets (Bld) [#/Vol] 234 10*3/uL 150-450 [facility] Work Phone: Serum or plasma calcium josué urement (mass/volume)on 06-26-2021 Calcium [Mass/Vol] 8.6 mg/dL 8.5-10.1 [facility] Work Phone: Serum or plasma creatinine m easurement (mass/volume)on 06-26-2021 Creatinine [Mass/Vol] 0.64 mg/dL 0.55-1.02 [facility] Work Phone: Comment on above: The validity of the calculated GFR & GFRAA in patients over 70 years has not been determined. Clinical correlation is essential. Serum or plasma urea nitroge n measurement (mass/volume)on 06-26-2021 Urea nitrogen [Mass/Vol] 13 mg/dL 7-18 [facility] Work Phone: Thin prep Papanicolaou smear with manual screeningon 06-26-2021 Thin prep Papanicolaou smear with manual screening 3 5-15 [facility] Work Phone: INR in Blood by Coagulation assayon 06-24-2021 INR Coag (Bld) [Relative time] 1.4 {INR} [facility] Work Phone: Laboratory - Coagulationon 0 06-24-2021 PT Coag (PPP) [Time] 16.2 s 11.7-14.9 [facility] Work Phone: No Panel Informationon 06-24 SARS-CoV-2 Antigen (Rapid) [facility] Work Phone: Absolute lymphocyte counton 06-18-2021 Lymphocytes Auto (Unsp spec) [#/Vol] 1.81 10*3/uL 0.83-4.51 [facility] Work Phone: [phone] Basophil percentageon 2021 Basophils/100 WBC (Bld) 0.5 % 0-1 [facility] Work Phone: Chloride [Moles/Vol] 103 mmol/L 98-107 [facility] Work Phone: [phone] Eosinophils/100 WBC (Bld) 4.1 % 0-5 [facility] Work Phone: Glucose [Mass/Vol] 127 mg/dL 74-106 [facility] Work Phone: Comment on above: Fasting Glucose resu lt greater than or equal to 126 mg/dL suggests DIABETES MELLITUS per A.D.A. criteria. Neutrophils (Bld) [#/Vol] 5.7 10*3/uL 2.0-7.7 [facility] Work Phone: Neutrophils/100 WBC (Bld) 66.6 % 47-70 [facility] Work Phone: Potassium [Moles/Vol] 3.7 mmol/L 3.5-5.1 [facility] Work Phone: Sodium [Moles/Vol] 136 mmol/L 136-145 [facility] Work Phone: WBC (Bld) [#/Vol] 8.5 10*3/uL 4.4-11.0 [facility] Work Phone: Blood erythrocytes count (nu mber/volume)on 06-18-2021 RBC (Bld) [#/Vol] 4.20 10*6/uL 4.2-5.4 [facility] Work Phone: Blood hemoglobin measurement (mass/volume)on 06-18-2021 Hemoglobin (Bld) [Mass/Vol] 13.0 g/dL 12.0-15.0 [facility] Work Phone: Blood lymphocytes/100 leukoc yteson 06-18-2021 Lymphocytes/100 WBC (Bld) 21.3 % 19-41 [facility] Work Phone: Blood monocytes/100 leukocyt eson 06-18-2021 Monocytes/100 WBC (Bld) 7.4 % 0-10 [facility] Work Phone: Blood platelet mean volumeon 06-18-2021 Platelet mean volume (Bld) [Entitic vol] 10.5 fL 6.2-12.0 [facility] Work Phone: Determination of erythrocyte mean corpuscular volume (MCV)on 06-18-2021 MCV (RBC) [Entitic vol] 89.8 fL 81-99 [facility] Work Phone: Hematocrit Auto (Bld) [Volum e fraction]on 06-18-2021 Hematocrit (Bld) [Volume fraction] 37.7 % 37-47 [facility] Work Phone: INR in Blood by Coagulation assayon 06-18-2021 INR Coag (Bld) [Relative time] 2.3 {INR} [facility] Work Phone: Laboratory - Chemistry and C hemistry - challengeon 06-18-2021 CO2 [Moles/Vol] 28.0 mmol/L 21.0-32.0 [facility] Work Phone: Urea nitrogen/Creatinine [Mass ratio] 23.0 mg/mg 10-20 [facility] Work Phone: Laboratory - Coagulationon 0 06-18-2021 PT Coag (PPP) [Time] 24.7 s 11.7-14.9 [facility] Work Phone: Laboratory - Hematology and Cell countson 06-18-2021 Erythrocyte distribution width (RBC) [Entitic vol] 40.2 fL 35.1-43.9 [facility] Work Phone: Erythrocyte distribution width (RBC) [Ratio] 12.2 % 11.6-14.6 [facility] Work Phone: Immature granulocytes/100 WBC (Bld) 0.100 % 0.0-0.9 [facility] Work Phone: Comment on above: IG% - Immature Granu locytes (promyelocytes, myelocytes and metamyelocytes) > 1% indicates that a LEFT SHIFT is Present. MCH (RBC) [Entitic mass] 31.0 pg 27.0-32.0 [facility] Work Phone: Nucleated RBC/100 WBC (Bld) [Ratio] 0 % 0-5 [facility] Work Phone: MCHC Auto (RBC) [Mass/Vol]on 06-18-2021 MCHC (RBC) [Mass/Vol] 34.5 g/dL 32-36 [facility] Work Phone: No Panel Informationon 06-18 SARS-CoV-2 Antigen (Rapid) [facility] Work Phone: Estimated Creatinine Clearance Calc 32.17 ml/min [facility] Work Phone: Estimated GFR (MDRD) Amer 103 mL/min >60 [facility] Work Phone: Comment on above: GFR Calc Estimated GFR (MDRD) Non-Af Amer 85 mL/min >60 [facility] Work Phone: Comment on above: Non- GFR Calc Platelets bldon 06-18-2021 Platelets (Bld) [#/Vol] 180 10*3/uL 150-450 [facility] Work Phone: Serum or plasma calcium josué urement (mass/volume)on 06-18-2021 Calcium [Mass/Vol] 8.1 mg/dL 8.5-10.1 [facility] Work Phone: Serum or plasma creatinine m easurement (mass/volume)on 06-18-2021 Creatinine [Mass/Vol] 0.70 mg/dL 0.55-1.02 [facility] Work Phone: Comment on above: The validity of the calculated GFR & GFRAA in patients over 70 years has not been determined. Clinical correlation is essential. Serum or plasma urea nitroge n measurement (mass/volume)on 06-18-2021 Urea nitrogen [Mass/Vol] 16 mg/dL 7-18 [facility] Work Phone: Thin prep Papanicolaou smear with manual screeningon 06-18-2021 Thin prep Papanicolaou smear with manual screening 5 5-15 [facility] Work Phone: Basophil percentageon 2021 Bilirubin [Mass/Vol] 0.50 mg/dL 0.20-1.00 [facility] Work Phone: Comment on above: For patients on eltr ombopag therapy, use of [employer] [place] TBIL is not recommended. Protein [Mass/Vol] 6.8 g/dL 6.4-8.2 [facility] Work Phone: Laboratory - Chemistry and C hemistry - challengeon 06-17-2021 ALP [Catalytic activity/Vol] 68 U/L 45-117 [facility] Work Phone: ALT [Catalytic activity/Vol] 24 U/L 13-56 [facility] Work Phone: Globulin (S) [Mass/Vol] 3.7 g/dL 2.2-4.2 [facility] Work Phone: Serum or plasma albumin josué urement (mass/volume)on 06-17-2021 Albumin [Mass/Vol] 3.1 g/dL 3.2-5.0 [facility] Work Phone: Serum or plasma albumin/glob ulin mass ratioon 06-17-2021 Albumin/Globulin [Mass ratio] 0.8 {ratio} 0.9-2.4 [facility] Work Phone: Thin prep Papanicolaou smear with manual screeningon 06-17-2021 Thin prep Papanicolaou smear with manual screening 23 U/L 15-37 [facility] Work Phone: Laboratory - Coagulationon 0 06-10-2021 INR Coag (Bld) [Relative time] 2.0 {INR} [facility] Work Phone: Comment on above: Critical Value > 4.0 Whole blood prothrombin time on 06-10-2021 PT Coag (Bld) [Time] 22.8 s 11.9-14.4 [facility] Work Phone: Laboratory - Coagulationon 1 07-13-2020 INR Coag (Bld) [Relative time] 1.9 {INR} [facility] Work Phone: Comment on above: Critical Value > 4.0 Whole blood prothrombin time on 05-12-2021 PT Coag (Bld) [Time] 22.0 s 11.9-14.4 [facility] Work Phone: PROon 04-16-2019 INR Coag (PPP) [Relative time] 2.3 {INR} Normal [facility] ([place]) Comment on above: Order Comment: order ed secondary to warfarin order Result Comment: [employer] (CHEST, 1992, [id number]) recommended therapeutic range for oral anticoagulant therapy is: LOW RISK: Prophylaxis of venous thrombosis INR: 2.0-3.0 Treatment of pulmonary embolism 2.0-3.0 Prevention of systemic embolism 2.0-3.0 HIGH RISK: Mechanical prosthetic valves 2.5-3.5 Performed By: #### C BC, ADIFF, ANEU, PRO, CMP, GFR #### [facility] [address] [place] [address] PT Coag (PPP) [Time] 26.9 s High 9.0-14.6 [facility] ([place]) Comment on above: Order Comment: order ed secondary to warfarin order Result Comment: Effe ctive 12/11/07, Protime results may be affected by some antibiotics (i.e. Ciprofloxacin, Azithromycin, Bactrim) which may potentiate the action of oral anticoagulants, with further increases in Protime/INR. Performed By: #### C BC, ADIFF, ANEU, PRO, CMP, GFR #### [address] [address] .Auto Diffon 04-15-2019 Ammonia (P) [Mass/Vol] 0.50 10 3/mcL Normal 0.09-1.40 [facility] ([place]) Comment on above: Performed By: #### C BC, ADIFF, ANEU, PRO, CMP, GFR #### [place] [address] Basophils (Bld) [#/Vol] 0.10 10 3/mcL Normal 0.00-0.27 [facility] ([place]) Comment on above: Performed By: #### C BC, ADIFF, ANEU, PRO, CMP, GFR #### [place] [id number] Basophils/100 WBC (Bld) 0.8 % Normal 0.0-2.5 [facility] ([place]) Comment on above: Performed By: #### C BC, ADIFF, ANEU, PRO, CMP, GFR #### [address] [address] Eosinophils (Bld) [#/Vol] 0.40 10 3/mcL Normal 0.00-0.65 [facility] ([place]) Comment on above: Performed By: #### C BC, ADIFF, ANEU, PRO, CMP, GFR #### [place] [id number] Eosinophils/100 WBC (Bld) 5.9 % Normal 0.0-6.0 [facility] ([place]) Comment on above: Performed By: #### C BC, ADIFF, ANEU, PRO, CMP, GFR #### [address] [address] Lymphocytes (Bld) [#/Vol] 2.40 10 3/mcL Normal 0.90-4.32 [facility] ([place]) Comment on above: Performed By: #### C BC, ADIFF, ANEU, PRO, CMP, GFR #### [address] [address] Lymphocytes/100 WBC (Bld) 34.4 % Normal 20.0-40.0 [facility] ([place]) Comment on above: Performed By: #### C BC, ADIFF, ANEU, PRO, CMP, GFR #### [address] [address] Monocytes/100 WBC (Bld) 6.5 % Normal 2.0-13.0 [facility] ([place]) Comment on above: Performed By: #### C BC, ADIFF, ANEU, PRO, CMP, GFR #### [address] [address] Neutrophils/100 WBC (Bld) 52.4 % Normal 50.0-75.0 [facility] ([place]) Comment on above: Performed By: #### C BC, ADIFF, ANEU, PRO, CMP, GFR #### [address] [address] .GFRon 04-15-2019 GFR >60 Normal [facility] ([place]) Comment on above: Result Comment: GFR Population [...] BC, ADIFF, ANEU, PRO, CMP, GFR #### [address] [address] GFR Non- >60 Normal [facility] ([place]) Comment on above: Result Comment: GFR Population [...] BC, ADIFF, ANEU, PRO, CMP, GFR #### [address] [address] .NEUABSon 04-15-2019 Neutrophils (Bld) [#/Vol] 3.60 10 3/mcL Normal 2.25-8.10 [facility] ([place]) Comment on above: Performed By: #### C BC, ADIFF, ANEU, PRO, CMP, GFR #### [address] [address] BMPon 04-15-2019 Creatinine [Mass/Vol] 0.64 mg/dL Normal 0.50-1.20 [facility] ([place] Comment on above: Performed By: #### C BC, ADIFF, ANEU, PRO, CMP, GFR #### [place] [address] Urea nitrogen/Creatinine [Mass ratio] 17.2 ratio Normal 10.0-22.0 [facility] ([place] Comment on above: Performed By: #### C BC, ADIFF, ANEU, PRO, CMP, GFR #### [place] [id number] Calcium [Mass/Vol] 7.9 mg/dL Low 8.4-10.1 [facility] ([place]) Comment on above: Performed By: #### C BC, ADIFF, ANEU, PRO, CMP, GFR #### [place] [id number] Chloride [Moles/Vol] 109 mmol/L Normal 98-110 [facility] ([place]) Comment on above: Performed By: #### C BC, ADIFF, ANEU, PRO, CMP, GFR #### [address] [address] CO2 [Moles/Vol] 29 mmol/L Normal 22-32 [facility] ([place]) Comment on above: Performed By: #### C BC, ADIFF, ANEU, PRO, CMP, GFR #### [place] [address] Electrolyte Balance 6.0 mEq/L Normal 4.0-15.0 Replaced by [facility] ([place]) Comment on above: Performed By: #### C BC, ADIFF, ANEU, PRO, CMP, GFR #### [place] [id number] Glucose [Mass/Vol] 100 mg/dL Normal 82-115 [facility] ([place]) Comment on above: Performed By: #### C BC, ADIFF, ANEU, PRO, CMP, GFR #### [place] [address] Potassium [Moles/Vol] 4.0 mmol/L Normal 3.5-5.0 [facility] [place] Comment on above: Performed By: #### C BC, ADIFF, ANEU, PRO, CMP, GFR #### [place] [id number] Sodium [Moles/Vol] 144 mmol/L Normal 136-145 [facility] ([place]) Comment on above: Performed By: #### C BC, ADIFF, ANEU, PRO, CMP, GFR #### [place] [id number] Urea nitrogen [Mass/Vol] 11.0 mg/dL Normal 8.0-22.0 [facility] ([place]) Comment on above: Performed By: #### C BC, ADIFF, ANEU, PRO, CMP, GFR #### [place] [id number] CBCon 04-15-2019 Erythrocyte distribution width (RBC) [Ratio] 13.5 % Normal 11.5-15.5 [facility] ([place] Comment on above: Performed By: #### C BC, ADIFF, ANEU, PRO, CMP, GFR #### [place] [phone] Hematocrit (Bld) [Volume fraction] 33.9 % Low 34.0-46.0 [facility] ([place] Comment on above: Performed By: #### C BC, ADIFF, ANEU, PRO, CMP, GFR #### [place] [address] Hemoglobin (Bld) [Mass/Vol] 11.6 G/dL Low 12.0-16.0 [facility] ([place] Comment on above: Performed By: #### C BC, ADIFF, ANEU, PRO, CMP, GFR #### [place] [id number] MCH (RBC) [Entitic mass] 31.8 pg Normal 27.0-33.0 [facility] ([place] Comment on above: Performed By: #### C BC, ADIFF, ANEU, PRO, CMP, GFR #### [place] [id number] MCHC (RBC) [Mass/Vol] 34.3 G/dL Normal 32.0-36.0 [facility] [place] Comment on above: Performed By: #### C BC, ADIFF, ANEU, PRO, CMP, GFR #### [place] [phone] MCV (RBC) [Entitic vol] 92.7 fL Normal 80.0-99.0 [facility] ([place]) Comment on above: Performed By: #### C BC, ADIFF, ANEU, PRO, CMP, GFR #### [place] [id number] Platelet mean volume (Bld) [Entitic vol] 8.6 fL Normal 6.6-10.5 [facility] ([place] Comment on above: Performed By: #### C BC, ADIFF, ANEU, PRO, CMP, GFR #### [place] [id number] Platelets (Bld) [#/Vol] 198 10 3/mcL Normal 150-450 [facility] ([place]) Comment on above: Performed By: #### C BC, ADIFF, ANEU, PRO, CMP, GFR #### [address] [address] RBC (Bld) [#/Vol] 3.65 10 6/mcL Low 4.10-5.30 [facility] ([place]) Comment on above: Performed By: #### C BC, ADIFF, ANEU, PRO, CMP, GFR #### [place] [id number] [address] [place] [id number] WBC (Bld) [#/Vol] 6.90 10 3/mcL Normal 4.50-10.80 [facility] ([place]) Comment on above: Performed By: #### C BC, ADIFF, ANEU, PRO, CMP, GFR #### [place] [address] MGon 04-15-2019 Magnesium [Mass/Vol] 2.2 mg/dL Normal 1.6-2.4 [facility] ([place]) Comment on above: Performed By: #### C BC, ADIFF, ANEU, PRO, CMP, GFR #### [place] [address] PROon 04-15-2019 INR Coag (PPP) [Relative time] 2.0 {INR} Normal [facility] ([place]) Comment on above: Order Comment: order ed secondary to warfarin order Result Comment: [employer] (CHEST, 1992, 102:312S-25S) recommended therapeutic range for oral anticoagulant therapy is: LOW RISK: Prophylaxis of venous thrombosis INR: 2.0-3.0 Treatment of pulmonary embolism 2.0-3.0 Prevention of systemic embolism 2.0-3.0 HIGH RISK: Mechanical prosthetic valves 2.5-3.5 Performed By: #### C BC, ADIFF, ANEU, PRO, CMP, GFR #### [address] [address] PT Coag (PPP) [Time] 23.4 s High 9.0-14.6 [facility] ([place]) Comment on above: Order Comment: order ed secondary to warfarin order Result Comment: Effe ctive 12/11/07, Protime results may be affected by some antibiotics (i.e. Ciprofloxacin, Azithromycin, Bactrim) which may potentiate the action of oral anticoagulants, with further increases in Protime/INR. Performed By: #### C BC, ADIFF, ANEU, PRO, CMP, GFR #### [address] [address] .Auto Diffon 04-14-2019 Ammonia (P) [Mass/Vol] 0.40 10 3/mcL Normal 0.09-1.40 [facility] ([place]) Comment on above: Performed By: #### C BC, ADIFF, ANEU, PRO, CMP, GFR #### [address] [address] Basophils (Bld) [#/Vol] 0.00 10 3/mcL Normal 0.00-0.27 [facility] ([place]) Comment on above: Performed By: #### C BC, ADIFF, ANEU, PRO, CMP, GFR #### [place] [id number] Basophils/100 WBC (Bld) 0.6 % Normal 0.0-2.5 [facility] ([place]) Comment on above: Performed By: #### C BC, ADIFF, ANEU, PRO, CMP, GFR #### [address] [address] Eosinophils (Bld) [#/Vol] 0.30 10 3/mcL Normal 0.00-0.65 [facility] ([place]) Comment on above: Performed By: #### C BC, ADIFF, ANEU, PRO, CMP, GFR #### [address] [address] Eosinophils/100 WBC (Bld) 5.1 % Normal 0.0-6.0 [facility] ([place]) Comment on above: Performed By: #### C BC, ADIFF, ANEU, PRO, CMP, GFR #### [address] [address] Lymphocytes (Bld) [#/Vol] 2.30 10 3/mcL Normal 0.90-4.32 [facility] ([place]) Comment on above: Performed By: #### C BC, ADIFF, ANEU, PRO, CMP, GFR #### [address] [address] Lymphocytes/100 WBC (Bld) 35.3 % Normal 20.0-40.0 [facility] ([place]) Comment on above: Performed By: #### C BC, ADIFF, ANEU, PRO, CMP, GFR #### [address] [address] Monocytes/100 WBC (Bld) 6.9 % Normal 2.0-13.0 [facility] ([place]) Comment on above: Performed By: #### C BC, ADIFF, ANEU, PRO, CMP, GFR #### [address] [address] Neutrophils/100 WBC (Bld) 52.1 % Normal 50.0-75.0 [facility] ([place]) Comment on above: Performed By: #### C BC, ADIFF, ANEU, PRO, CMP, GFR #### [address] [address] .GFRon 04-14-2019 GFR >60 Normal [facility] ([place]) Comment on above: Result Comment: GFR Population [...] BC, ADIFF, ANEU, PRO, CMP, GFR #### [address] [address] GFR Non- >60 Normal [facility] ([place]) Comment on above: Result Comment: GFR Population [...] BC, ADIFF, ANEU, PRO, CMP, GFR #### [address] [address] .NEUABSon 04-14-2019 Neutrophils (Bld) [#/Vol] 3.30 10 3/mcL Normal 2.25-8.10 [facility] ([place]) Comment on above: Performed By: #### C BC, ADIFF, ANEU, PRO, CMP, GFR #### [place] [address] A1Con 04-14-2019 HbA1c (Bld) [Mass fraction] 6.1 % High 4.0-6.0 [facility] ([place]) Comment on above: Performed By: #### C BC, ADIFF, ANEU, PRO, CMP, GFR #### [place] [address] BMPon 04-14-2019 Calcium [Mass/Vol] 7.8 mg/dL Low 8.4-10.1 [facility] ([place]) Comment on above: Performed By: #### C BC, ADIFF, ANEU, PRO, CMP, GFR #### [address] [address] Chloride [Moles/Vol] 107 mmol/L Normal 98-110 [facility] ([place]) Comment on above: Performed By: #### C BC, ADIFF, ANEU, PRO, CMP, GFR #### [address] [address] CO2 [Moles/Vol] 30 mmol/L Normal 22-32 [facility] ([place]) Comment on above: Performed By: #### C BC, ADIFF, ANEU, PRO, CMP, GFR #### [facility] [address] [place], [place] [address] Creatinine [Mass/Vol] 0.66 mg/dL Normal 0.50-1.20 [facility] [place] Comment on above: Performed By: #### C BC, ADIFF, ANEU, PRO, CMP, GFR #### [place] [id number] Electrolyte Balance 5.0 mEq/L Normal 4.0-15.0 Replaced by [facility] ([place]) Comment on above: Performed By: #### C BC, ADIFF, ANEU, PRO, CMP, GFR #### [place] [phone] Glucose [Mass/Vol] 102 mg/dL Normal 82-115 [facility] ([place]) Comment on above: Performed By: #### C BC, ADIFF, ANEU, PRO, CMP, GFR #### [place] [address] Potassium [Moles/Vol] 3.9 mmol/L Normal 3.5-5.0 [facility] [place] Comment on above: Performed By: #### C BC, ADIFF, ANEU, PRO, CMP, GFR #### [place] [address] Sodium [Moles/Vol] 142 mmol/L Normal 136-145 [facility] ([place]) Comment on above: Performed By: #### C BC, ADIFF, ANEU, PRO, CMP, GFR #### [place] [address] Urea nitrogen [Mass/Vol] 13.0 mg/dL Normal 8.0-22.0 [facility] ([place]) Comment on above: Performed By: #### C BC, ADIFF, ANEU, PRO, CMP, GFR #### [place] [id number] Urea nitrogen/Creatinine [Mass ratio] 19.7 ratio Normal 10.0-22.0 [facility] ([place]) Comment on above: Performed By: #### C BC, ADIFF, ANEU, PRO, CMP, GFR #### [place] [id number] CBCon 04-14-2019 Erythrocyte distribution width (RBC) [Ratio] 13.1 % Normal 11.5-15.5 [facility] ([place] Comment on above: Performed By: #### C BC, ADIFF, ANEU, PRO, CMP, GFR #### [place] [phone] Hematocrit (Bld) [Volume fraction] 33.9 % Low 34.0-46.0 [facility] ([place] Comment on above: Performed By: #### C BC, ADIFF, ANEU, PRO, CMP, GFR #### [place] [phone] Hemoglobin (Bld) [Mass/Vol] 11.6 G/dL Low 12.0-16.0 [facility] ([place] Comment on above: Performed By: #### C BC, ADIFF, ANEU, PRO, CMP, GFR #### [place] [phone] MCH (RBC) [Entitic mass] 31.9 pg Normal 27.0-33.0 [facility] ([place] Comment on above: Performed By: #### C BC, ADIFF, ANEU, PRO, CMP, GFR #### [place] [phone] MCHC (RBC) [Mass/Vol] 34.2 G/dL Normal 32.0-36.0 [facility] [place] Comment on [place]: Performed By: #### C BC, ADIFF, ANEU, PRO, CMP, GFR #### [place] [phone] MCV (RBC) [Entitic vol] 93.4 fL Normal 80.0-99.0 [facility] ([place]) Comment on above: Performed By: #### C BC, ADIFF, ANEU, PRO, CMP, GFR #### [place] [phone] Platelet mean volume (Bld) [Entitic vol] 9.2 fL Normal 6.6-10.5 [facility] ([place]) Comment on above: Performed By: #### C BC, ADIFF, ANEU, PRO, CMP, GFR #### [address] [address] Platelets (Bld) [#/Vol] 197 10 3/mcL Normal 150-450 [facility] ([place]) Comment on above: Performed By: #### C BC, ADIFF, ANEU, PRO, CMP, GFR #### [address] [address] RBC (Bld) [#/Vol] 3.63 10 6/mcL Low 4.10-5.30 [facility] ([place]) Comment on above: Performed By: #### C BC, ADIFF, ANEU, PRO, CMP, GFR #### [address] [address] WBC (Bld) [#/Vol] 6.40 10 3/mcL Normal 4.50-10.80 [facility] ([place]) Comment on above: Performed By: #### C BC, ADIFF, ANEU, PRO, CMP, GFR #### [place] [id number] MGon 04-14-2019 Magnesium [Mass/Vol] 2.1 mg/dL Normal 1.6-2.4 [facility] ([place]) Comment on above: Performed By: #### C BC, ADIFF, ANEU, PRO, CMP, GFR #### [address] [address] PROon 04-14-2019 INR Coag (PPP) [Relative time] 1.8 {INR} Normal [facility] ([place]) Comment on above: Order Comment: order ed secondary to warfarin order Result Comment: [employer] (CHEST, 1992, 102:312S-25S) recommended therapeutic range for oral anticoagulant therapy is: LOW RISK: Prophylaxis of venous thrombosis INR: 2.0-3.0 Treatment of pulmonary embolism 2.0-3.0 Prevention of systemic embolism 2.0-3.0 HIGH RISK: Mechanical prosthetic valves 2.5-3.5 Performed By: #### C BC, ADIFF, ANEU, PRO, CMP, GFR #### [address] [address] PT Coag (PPP) [Time] 21.7 s High 9.0-14.6 [facility] ([place]) Comment on above: Order Comment: order ed secondary to warfarin order Result Comment: Effe ctive 12/11/07, Protime results may be affected by some antibiotics (i.e. Ciprofloxacin, Azithromycin, Bactrim) which may potentiate the action of oral anticoagulants, with further increases in Protime/INR. Performed By: #### C BC, ADIFF, ANEU, PRO, CMP, GFR #### [address] [address] .Auto Diffon 04-13-2019 Ammonia (P) [Mass/Vol] 0.60 10 3/mcL Normal 0.09-1.40 [facility] ([place]) Comment on above: Performed By: #### C BC, ADIFF, ANEU, BMP, GFR, LIPID, TROPI #### [address] [address] Basophils (Bld) [#/Vol] 0.00 10 3/mcL Normal 0.00-0.27 [facility] ([place]) Comment on above: Performed By: #### C BC, ADIFF, ANEU, BMP, GFR, LIPID, TROPI #### [address] [address] Basophils/100 WBC (Bld) 0.6 % Normal 0.0-2.5 [facility] ([place]) Comment on above: Performed By: #### C BC, ADIFF, ANEU, BMP, GFR, LIPID, TROPI #### [address] [address] Eosinophils (Bld) [#/Vol] 0.30 10 3/mcL Normal 0.00-0.65 [facility] ([place]) Comment on above: Performed By: #### C BC, ADIFF, ANEU, BMP, GFR, LIPID, TROPI #### [address] [address] Eosinophils/100 WBC (Bld) 4.5 % Normal 0.0-6.0 [facility] ([place]) Comment on above: Performed By: #### C BC, ADIFF, ANEU, BMP, GFR, LIPID, TROPI #### [address] [address] Lymphocytes (Bld) [#/Vol] 2.60 10 3/mcL Normal 0.90-4.32 [facility] ([place]) Comment on above: Performed By: #### C BC, ADIFF, ANEU, BMP, GFR, LIPID, TROPI #### [address] [address] Lymphocytes/100 WBC (Bld) 34.8 % Normal 20.0-40.0 [facility] ([place]) Comment on above: Performed By: #### C BC, ADIFF, ANEU, BMP, GFR, LIPID, TROPI #### [address] [address] Monocytes/100 WBC (Bld) 7.5 % Normal 2.0-13.0 [facility] ([place]) Comment on above: Performed By: #### C BC, ADIFF, ANEU, BMP, GFR, LIPID, TROPI #### [address] [address] Neutrophils/100 WBC (Bld) 52.6 % Normal 50.0-75.0 [facility] ([place]) Comment on above: Performed By: #### C BC, ADIFF, ANEU, BMP, GFR, LIPID, TROPI #### [address] [address] .GFRon 04-13-2019 GFR Non- >60 Normal [facility] ([place]) Comment on above: Result Comment: GFR Population [...] BC, ADIFF, ANEU, PRO, CMP, GFR #### [address] [address] GFR >60 Normal [facility] ([place]) Comment on above: Result Comment: GFR Population [...] BC, ADIFF, ANEU, PRO, CMP, GFR #### [address] [address] .NEUABSon 04-13-2019 Neutrophils (Bld) [#/Vol] 4.00 10 3/mcL Normal 2.25-8.10 [facility] ([place]) Comment on above: Performed By: #### C BC, ADIFF, ANEU, PRO, CMP, GFR #### [address] [address] BMPon 04-13-2019 Calcium [Mass/Vol] 7.8 mg/dL Low 8.4-10.1 [facility] ([place]) Comment on above: Performed By: #### C BC, ADIFF, ANEU, PRO, CMP, GFR #### [address] [address] Chloride [Moles/Vol] 106 mmol/L Normal 98-110 [facility] ([place]) Comment on above: Performed By: #### C BC, ADIFF, ANEU, PRO, CMP, GFR #### [address] [address] CO2 [Moles/Vol] 31 mmol/L Normal 22-32 [facility] ([place]) Comment on above: Performed By: #### C BC, ADIFF, ANEU, PRO, CMP, GFR #### [address] [address] Creatinine [Mass/Vol] 0.74 mg/dL Normal 0.50-1.20 [facility] [place] Comment [place] above: Performed By: #### C BC, ADIFF, ANEU, PRO, CMP, GFR #### [address] [address] Electrolyte Balance 6.0 mEq/L Normal 4.0-15.0 Replaced by [facility] ([place]) Comment on above: Performed By: #### C BC, ADIFF, ANEU, PRO, CMP, GFR #### [address] [address] Glucose [Mass/Vol] 107 mg/dL Normal 82-115 [facility] ([place]) Comment on above: Performed By: #### C BC, ADIFF, ANEU, PRO, CMP, GFR #### [place] [phone] Potassium [Moles/Vol] 4.0 mmol/L Normal 3.5-5.0 [facility] [place] Comment [place] above: Performed By: #### C BC, ADIFF, ANEU, PRO, CMP, GFR #### [address] [address] Sodium [Moles/Vol] 143 mmol/L Normal 136-145 [facility] ([place]) Comment on above: Performed By: #### C BC, ADIFF, ANEU, PRO, CMP, GFR #### [address] [address] Urea nitrogen [Mass/Vol] 16.0 mg/dL Normal 8.0-22.0 [facility] ([place]) Comment on above: Performed By: #### C BC, ADIFF, ANEU, PRO, CMP, GFR #### [address] [address] Urea nitrogen/Creatinine [Mass ratio] 21.6 ratio Normal 10.0-22.0 [facility] ([place]) Comment on above: Performed By: #### C BC, ADIFF, ANEU, PRO, CMP, GFR #### [address] [address] CBCon 04-13-2019 WBC (Bld) [#/Vol] 7.50 10 3/mcL Normal 4.50-10.80 [facility] ([place]) Comment on above: Result Comment: No n ormals available: specimen drawn from IV arm. Performed By: #### C BC, ADIFF, ANEU, BMP, GFR, LIPID, TROPI #### [place] [phone] Erythrocyte distribution width (RBC) [Ratio] 13.5 % Normal 11.5-15.5 [facility] ([place]) Comment on above: Performed By: #### C BC, ADIFF, ANEU, BMP, GFR, LIPID, TROPI #### [place] [address] Hematocrit (Bld) [Volume fraction] 32.9 % Low 34.0-46.0 [facility] ([place]) Comment on above: Performed By: #### C BC, ADIFF, ANEU, BMP, GFR, LIPID, TROPI #### [place] [phone] Hemoglobin (Bld) [Mass/Vol] 10.9 G/dL Low 12.0-16.0 [facility] ([place] Comment on above: Performed By: #### C BC, ADIFF, ANEU, BMP, GFR, LIPID, TROPI #### [place] [phone] MCH (RBC) [Entitic mass] 31.2 pg Normal 27.0-33.0 [facility] ([place]) Comment on above: Performed By: #### C BC, ADIFF, ANEU, BMP, GFR, LIPID, TROPI #### [place] [phone] MCHC (RBC) [Mass/Vol] 33.2 G/dL Normal 32.0-36.0 [facility] [place] Comment on above: Performed By: #### C BC, ADIFF, ANEU, BMP, GFR, LIPID, TROPI #### [facility] [address] [place], [place] [address] MCV (RBC) [Entitic vol] 94.0 fL Normal 80.0-99.0 [facility] ([place]) Comment on above: Performed By: #### C BC, ADIFF, ANEU, BMP, GFR, LIPID, TROPI #### [facility] [address] [place] [address] Platelet mean volume (Bld) [Entitic vol] 8.4 fL Normal 6.6-10.5 [facility] ([place]) Comment on above: Performed By: #### C BC, ADIFF, ANEU, BMP, GFR, LIPID, TROPI #### [facility] [address] [place] [address] Platelets (Bld) [#/Vol] 188 10 3/mcL Normal 150-450 [facility] ([place]) Comment on above: Performed By: #### C BC, ADIFF, ANEU, BMP, GFR, LIPID, TROPI #### [place] [id number] [address] [place], [place] [id number] RBC (Bld) [#/Vol] 3.49 10 6/mcL Low 4.10-5.30 [facility] ([place]) Comment on above: Performed By: #### C BC, ADIFF, ANEU, BMP, GFR, LIPID, TROPI #### [facility] [address] [place] [address] [address] ANGIOGRAPHY HEAD W/ CONTR Tariq 04-13-2019 [...] Date: 04/13/2019 8:46:53 PM Ordering Provider:Naomie Richards [facility] ([place]) [place] ANGIOGRAPHY NECK W/CONTRA Xavin 04-13-2019 CT ANGIOGRAPHY NECK W/CONTRAST ORIGINAL CT [...] Date: 04/13/2019 8:25:57 PM Ordering Provider:Naomie Solano [facility] ([place]) LIPIDon 04-13-2019 Cholesterol in HDL [Mass/Vol] 30 mg/dL Low 40-59 [facility] ([place]) Comment on above: Result Comment: HDL Reference Interval: Less than 40 Low - high risk 60 or above Optimal/lowers risk Performed By: #### C BC, ADIFF, ANEU, PRO, CMP, GFR #### [address] [address] Cholesterol in LDL [Mass/Vol] 78 mg/dL Normal 0-129 [facility] ([place]) Comment on above: Result Comment: LDL is a calculated result and requires a 12-hr fast. LDL Reference Interval: Less than 100 Optimal 100-129 Near or above optimal 130-159 Borderline high risk 160-189 High risk 190 and above Very high risk Performed By: #### C BC, ADIFF, ANEU, PRO, CMP, GFR #### [address] [address] Cholesterol [Mass/Vol] 135 mg/dL Normal 50-199 [facility] ([place]) Comment on above: Result Comment: Chol esterol Reference Interval: Less than 200 Desirable 200-239 Borderline high risk 240 and above High risk Performed By: #### C BC, ADIFF, ANEU, PRO, CMP, GFR #### [address] [address] Triglyceride [Mass/Vol] 134 mg/dL Normal 3-149 [facility] ([place]) Comment on above: Result Comment: Trig lyceride Reference Interval: Less than 150 Normal 150-199 Borderline high risk 200-499 High risk 500 or higher Very high risk Performed By: #### C BC, ADIFF, ANEU, PRO, CMP, GFR #### [place] [address] [place] [address] MRI BRAIN W/O CONTRASTon MRI BRAIN W/O [...] Date: 04/13/2019 11:39:49 AM Ordering Provider:Naomie Solano [facility] ([place]) PROon 04-13-2019 INR Coag (PPP) [Relative time] 1.8 {INR} [facility] ([place]) Comment on above: Order Comment: order ed secondary to warfarin order Result Comment: [employer] (CHEST, 1992, 102:312S-25S) recommended therapeutic range for oral anticoagulant therapy is: LOW RISK: Prophylaxis of venous thrombosis INR: 2.0-3.0 Treatment of pulmonary embolism 2.0-3.0 Prevention of systemic embolism 2.0-3.0 HIGH RISK: Mechanical prosthetic valves 2.5-3.5 Performed By: #### C BC, ADIFF, ANEU, PRO, CMP, GFR #### [place] [id number] [place] [address] PT Coag (PPP) [Time] 21.0 s High 9.0-14.6 [facility] ([place]) Comment on above: Order Comment: order ed secondary to warfarin order Result Comment: Effe ctive 12/11/07, Protime results may be affected by some antibiotics (i.e. Ciprofloxacin, Azithromycin, Bactrim) which may potentiate the action of oral anticoagulants, with further increases in Protime/INR. Performed By: #### C BC, ADIFF, ANEU, PRO, CMP, GFR #### [address] [address] TROPIon 04-13-2019 Troponin I.cardiac [Mass/Vol] ng/mL Normal 0.000-0.040 [facility] ([place]) Comment on above: Result Comment: Trop onin I reference ranges (02/03/14): 0.00-0.040 ng/mL Negative and non-diagnostic. >0.040 ng/mL Consistent with cardiac damage, increased clinical risk and possibility of myocardial infarction. Serial measurements, a rise & fall in test results, clinical history, appropriate symptoms and/or ECG changes may help assess possibility of [place]. *Other non-acute coronary syndrome conditions such as CHF, myocarditis, pulmonary emboli, sepsis and cardiac surgery could result in myocardial damage and increased troponin levels. Performed By: #### C BC, ADIFF, ANEU, PRO, CMP, GFR #### [address] [address] Troponin I.cardiac [Mass/Vol] ng/mL Normal 0.000-0.040 [facility] ([place]) Comment on above: Result Comment: Trop onin I reference ranges (02/03/14): 0.00-0.040 ng/mL Negative and non-diagnostic. >0.040 ng/mL Consistent with cardiac damage, increased clinical risk and possibility of myocardial infarction. Serial measurements, a rise & fall in test results, clinical history, appropriate symptoms and/or ECG changes may help assess possibility of [place]. *Other non-acute coronary syndrome conditions such as CHF, myocarditis, pulmonary emboli, sepsis and cardiac surgery could result in myocardial damage and increased troponin levels. Performed By: #### T ROPI #### [address] [address] Troponin I.cardiac [Mass/Vol] ng/mL Normal 0.000-0.040 [facility] ([place]) Comment on above: Result Comment: Trop onin I reference ranges (02/03/14): 0.00-0.040 ng/mL Negative and non-diagnostic. >0.040 ng/mL Consistent with cardiac damage, increased clinical risk and possibility of myocardial infarction. Serial measurements, a rise & fall in test results, clinical history, appropriate symptoms and/or ECG changes may help assess possibility of [place]. *Other non-acute coronary syndrome conditions such as CHF, myocarditis, pulmonary emboli, sepsis and cardiac surgery could result in myocardial damage and increased troponin levels. Performed By: #### T ROPI #### [address] [address] .Auto Diffon 04-12-2019 Ammonia (P) [Mass/Vol] 0.60 10 3/mcL Normal 0.09-1.40 [facility] ([place]) Comment on above: Performed By: #### C BC, ADIFF, ANEU, PRO, CMP, GFR #### [address] [address] Basophils (Bld) [#/Vol] 0.10 10 3/mcL Normal 0.00-0.27 [facility] ([place]) Comment on above: Performed By: #### C BC, ADIFF, ANEU, PRO, CMP, GFR #### [address] [address] Basophils/100 WBC (Bld) 0.6 % Normal 0.0-2.5 [facility] ([place]) Comment on above: Performed By: #### C BC, ADIFF, ANEU, PRO, CMP, GFR #### [address] [address] Eosinophils (Bld) [#/Vol] 0.40 10 3/mcL Normal 0.00-0.65 [facility] ([place]) Comment on above: Performed By: #### C BC, ADIFF, ANEU, PRO, CMP, GFR #### [address] [address] Eosinophils/100 WBC (Bld) 4.4 % Normal 0.0-6.0 [facility] ([place]) Comment on above: Performed By: #### C BC, ADIFF, ANEU, PRO, CMP, GFR #### [address] [address] Lymphocytes (Bld) [#/Vol] 3.20 10 3/mcL Normal 0.90-4.32 [facility] ([place]) Comment on above: Performed By: #### C BC, ADIFF, ANEU, PRO, CMP, GFR #### [address] [address] Lymphocytes/100 WBC (Bld) 37.2 % Normal 20.0-40.0 [facility] ([place]) Comment on above: Performed By: #### C BC, ADIFF, ANEU, PRO, CMP, GFR #### [address] [address] Monocytes/100 WBC (Bld) 6.7 % Normal 2.0-13.0 [facility] ([place]) Comment on above: Performed By: #### C BC, ADIFF, ANEU, PRO, CMP, GFR #### [address] [address] Neutrophils/100 WBC (Bld) 51.1 % Normal 50.0-75.0 [facility] ([place]) Comment on above: Performed By: #### C BC, ADIFF, ANEU, PRO, CMP, GFR #### [address] [address] .GFRon 04-12-2019 GFR >60 Normal [facility] ([place]) Comment on above: Result Comment: GFR Population [...] BC, ADIFF, ANEU, PRO, CMP, GFR #### [place] [address] GFR Non- >60 Normal [facility] ([place]) Comment on above: Result Comment: GFR Population [...] BC, ADIFF, ANEU, PRO, CMP, GFR #### [place] [address] .NEUABSon 04-12-2019 Neutrophils (Bld) [#/Vol] 4.40 10 3/mcL Normal 2.25-8.10 [facility] ([place]) Comment on above: Performed By: #### C BC, ADIFF, ANEU, PRO, CMP, GFR #### [address] [address] CBCon 04-12-2019 Erythrocyte distribution width (RBC) [Ratio] 13.5 % Normal 11.5-15.5 [facility] ([place]) Comment on above: Performed By: #### C BC, ADIFF, ANEU, PRO, CMP, GFR #### [place] [address] Hematocrit (Bld) [Volume fraction] 35.5 % Normal 34.0-46.0 [facility] ([place]) Comment on above: Performed By: #### C BC, ADIFF, ANEU, PRO, CMP, GFR #### [facility] [address] [place], [place] [address] Hemoglobin (Bld) [Mass/Vol] 12.0 G/dL Normal 12.0-16.0 [facility] ([place] Comment on above: Performed By: #### C BC, ADIFF, ANEU, PRO, CMP, GFR #### [address] [address] MCH (RBC) [Entitic mass] 32.0 pg Normal 27.0-33.0 [facility] ([place]) Comment on above: Performed By: #### C BC, ADIFF, ANEU, PRO, CMP, GFR #### [address] [address] MCHC (RBC) [Mass/Vol] 33.8 G/dL Normal 32.0-36.0 [facility] [place] Comment on above: Performed By: #### C BC, ADIFF, ANEU, PRO, CMP, GFR #### [address] [address] MCV (RBC) [Entitic vol] 94.7 fL Normal 80.0-99.0 [facility] ([place]) Comment on above: Performed By: #### C BC, ADIFF, ANEU, PRO, CMP, GFR #### [address] [address] Platelet mean volume (Bld) [Entitic vol] 8.7 fL Normal 6.6-10.5 [facility] ([place]) Comment on above: Performed By: #### C BC, ADIFF, ANEU, PRO, CMP, GFR #### [address] [address] Platelets (Bld) [#/Vol] 209 10 3/mcL Normal 150-450 [facility] ([place] Comment on above: Performed By: #### C BC, ADIFF, ANEU, PRO, CMP, GFR #### [address] [address] RBC (Bld) [#/Vol] 3.75 10 6/mcL Low 4.10-5.30 [facility] ([place]) Comment on above: Performed By: #### C BC, ADIFF, ANEU, PRO, CMP, GFR #### [place] [id number] WBC (Bld) [#/Vol] 8.60 10 3/mcL Normal 4.50-10.80 [facility] ([place]) Comment on above: Performed By: #### C BC, ADIFF, ANEU, PRO, CMP, GFR #### [address] [address] CMPon 04-12-2019 Albumin/Globulin [Mass ratio] 1.0 {ratio} Normal 0.9-1.6 [facility] ([place] Comment on above: Performed By: #### C BC, ADIFF, ANEU, PRO, CMP, GFR #### [place] [id number] ALP [Catalytic activity/Vol] 72 U/L Normal 38-126 [facility] ([place] Comment on above: Performed By: #### C BC, ADIFF, ANEU, PRO, CMP, GFR #### [place] [id number] Bili Total 0.3 mg/dL Normal 0.2-1.2 [facility] ([place] Comment on above: Performed By: #### C BC, ADIFF, ANEU, PRO, CMP, GFR #### [place] [id number] Creatinine [Mass/Vol] 0.66 mg/dL Normal 0.50-1.20 [facility] [place] Comment on above: Performed By: #### C BC, ADIFF, ANEU, PRO, CMP, GFR #### [place] [id number] Globulin (S) [Mass/Vol] 3.0 G/dL Normal 1.5-3.8 [facility] ([place]) Comment on above: Performed By: #### C BC, ADIFF, ANEU, PRO, CMP, GFR #### [place] [id number] Protein [Mass/Vol] 6.0 G/dL Normal 6.0-8.5 [facility] ([place]) Comment on above: Performed By: #### C BC, ADIFF, ANEU, PRO, CMP, GFR #### [address] [address] Urea nitrogen/Creatinine [Mass ratio] 27.3 ratio High 10.0-22.0 [facility] ([place] Comment on above: Performed By: #### C BC, ADIFF, ANEU, PRO, CMP, GFR #### [address] [address] Albumin [Mass/Vol] 3.0 G/dL Low 3.2-4.8 [facility] ([place] Comment on above: Performed By: #### C BC, ADIFF, ANEU, PRO, CMP, GFR #### [address] [address] ALT [Catalytic activity/Vol] 24 U/L Normal 10-49 [facility] ([place] Comment on above: Performed By: #### C BC, ADIFF, ANEU, PRO, CMP, GFR #### [address] [address] AST [Catalytic activity/Vol] 20 U/L Normal 8-34 [facility] ([place] Comment on above: Performed By: #### C BC, ADIFF, ANEU, PRO, CMP, GFR #### [place] [id number] Calcium [Mass/Vol] 8.2 mg/dL Low 8.4-10.1 [facility] ([place]) Comment on above: Performed By: #### C BC, ADIFF, ANEU, PRO, CMP, GFR #### [address] [address] Chloride [Moles/Vol] 105 mmol/L Normal 98-110 [facility] ([place]) Comment on above: Performed By: #### C BC, ADIFF, ANEU, PRO, CMP, GFR #### [address] [address] CO2 [Moles/Vol] 28 mmol/L Normal 22-32 [facility] ([place]) Comment on above: Performed By: #### C BC, ADIFF, ANEU, PRO, CMP, GFR #### [address] [address] Electrolyte Balance 8.0 mEq/L Normal 4.0-15.0 Replaced by [facility] ([place]) Comment on above: Performed By: #### C BC, ADIFF, ANEU, PRO, CMP, GFR #### [address] [address] Glucose [Mass/Vol] 108 mg/dL Normal 82-115 [facility] ([place]) Comment on above: Performed By: #### C BC, ADIFF, ANEU, PRO, CMP, GFR #### [place] [id number] Potassium [Moles/Vol] 3.7 mmol/L Normal 3.5-5.0 [facility] [place] Comment on above: Performed By: #### C BC, ADIFF, ANEU, PRO, CMP, GFR #### [place] [id number] Sodium [Moles/Vol] 141 mmol/L Normal 136-145 [facility] ([place]) Comment on above: Performed By: #### C BC, ADIFF, ANEU, PRO, CMP, GFR #### [place] [id number] Urea nitrogen [Mass/Vol] 18.0 mg/dL Normal 8.0-22.0 [facility] ([place]) Comment on above: Performed By: #### C BC, ADIFF, ANEU, PRO, CMP, GFR #### [address] [address] PROon 04-12-2019 INR Coag (PPP) [Relative time] 1.8 {INR} Normal [facility] ([place]) Comment on above: Result Comment: The [employer] (CHEST, 1992, 102:312S-[id number]) recommended therapeutic range for oral anticoagulant therapy is: LOW RISK: Prophylaxis of venous thrombosis INR: 2.0-3.0 Treatment of pulmonary embolism 2.0-3.0 Prevention of systemic embolism 2.0-3.0 HIGH RISK: Mechanical prosthetic valves 2.5-3.5 Performed By: #### C BC, ADIFF, ANEU, PRO, CMP, GFR #### [address] [address] PT Coag (PPP) [Time] 20.9 s High 9.0-14.6 [facility] ([place]) Comment on above: Result Comment: Effe ctive 12/11/07, Protime results may be affected by some antibiotics (i.e. Ciprofloxacin, Azithromycin, Bactrim) which may potentiate the action of oral anticoagulants, with further increases in Protime/INR. Performed By: #### C BC, ADIFF, ANEU, PRO, CMP, GFR #### [facility] [address] [place] [id number] CNCOon 09-08-2017 CNCO Letter Text [facility] Cardiology [id number] . [facility] [id number]: [phone] Nifbbpk E. Shafer, MDApril 2017Colette Richardson3383 [facility] [id number]/21/1936Dear Colette Richardson,We missed seeing you for your scheduled appointment with Dr. Kathleen on09/05/17.Our goal is to offer the best possible care to our patients, so we areconcerned when you are unable to keep a scheduled appointment.Please call us at [phone] so that we can reschedule your appointment fora day and time that will work for you.If you find it difficult to keep your appointment, please notify our officeat least 24 hours in advance so that we may reschedule your appointment.We are glad that you have chosen [facility] for yourcardiovascular needs and hope to continue serving you in the future.Sincerely,Sarath Kathleen MD(Signed electronically to expedite mailing) Normal [facility] Culture, urine Bacteria identified Cx Nom (U) Culture exhibits no growth. [facility] Work Phone: Bacteria identified Cx Nom (U) Staphylococcus epidermidis [facility] Work Phone: Influenza virus A and B and SARS-CoV-2 (COVID-19) Ag panel - Upper respiratory specim SARS-CoV-2 (COVID-19) RNA REMINGTON+probe Ql (Resp) [facility] Work Phone: Laboratory - Microbiology an d Antimicrobial susceptibility Bacteria identified Cx Nom (Bld) No growth in 5 days. [facility] Work Phone: No Panel Information SARS-CoV-2 & FLU Antigen (Rapid) [facility] Work Phone: Vital Signs Date Time Vital Sign Value Performing Clinician Faci lity 12-17-2024 10:56-0400 Body mass index (BMI) [Ratio] 27.9 kg/m2 Diana Simon MD Work Phone: [facility] 12-17-2024 10:56-0400 Body weight 64.8 kg Diana Simon MD Work Phone: [facility] 12-17-2024 10:56-0400 SaO2% (BldA) [Mass fraction] 96 % Diana Simon MD Work Phone: [facility] 10-09-2024 20:54-0400 Body temperature 98 [degF] Dr. Melo Shrestha MD [facility] 10-09-2024 20:54-0400 Diastolic blood pressure 80 mm[Hg] Dr. Melo Shrestha MD [facility] 10-09-2024 20:54-0400 Heart rate 68 /min Dr. Melo Shrestha MD [facility] 10-09-2024 20:54-0400 Respiratory rate 18 /min Dr. Melo Shrestha MD [facility] 10-09-2024 20:54-0400 SaO2% (BldA) [Mass fraction] 96 % Dr. Melo Shrestha MD [facility] 10-09-2024 20:54-0400 Systolic blood pressure 188 mm[Hg] Dr. Melo Shrestha MD [facility] 10-09-2024 19:02-0400 Body height 154.[address] Melo Shrestha MD [facility] 10-09-2024 19:02-0400 Body mass index (BMI) [Ratio] 27.6 kg/m2 Dr. Melo Shrestha MD [facility] 10-09-2024 19:02-0400 Body weight 66.[address] Melo Shrestha MD [facility] 02-02-2023 18:43-0400 Diastolic blood pressure 92 mm[Hg] Dr. Hortensia Unger Work Phone: [facility] 02-02-2023 18:43-0400 Heart rate 66 /min Dr. Hortensia Unger Work Phone: [facility] 02-02-2023 18:43-0400 Systolic blood pressure 186 mm[Hg] Dr. Hortensia Unger Work Phone: [facility] 02-02-2023 15:12-0400 Body height 154.[address] Hortensia Unger Work Phone: [facility] 02-02-2023 15:12-0400 Body temperature 97.9 [degF] Dr. Hortensia Unger Work Phone: [facility] 02-02-2023 15:12-0400 Respiratory rate 18 /min Dr. Hortensia Unger Work Phone: [facility] 02-02-2023 15:12-0400 SaO2% (BldA) [Mass fraction] 97 % Dr. Hortensia Unger Work Phone: [facility] 01-09-2023 10:02-0400 Body mass index (BMI) [Ratio] 30.1 kg/m2 Dr. Hortensia Unger Work Phone: [facility] 01-09-2023 10:02-0400 Body temperature 98 [degF] Dr. Hortensia Unger Work Phone: [facility] 01-09-2023 10:02-0400 Body weight 72.[address] Hortensia Unger Work Phone: [facility] 01-09-2023 10:02-0400 Diastolic blood pressure 60 mm[Hg] Dr. Hortensia Unger Work Phone: [facility] 01-09-2023 10:02-0400 Heart rate 63 /min Dr. Hortensia Unger Work Phone: [facility] 01-09-2023 10:02-0400 Respiratory rate 17 /min Dr. Hortensia Unger Work Phone: [facility] 01-09-2023 10:02-0400 SaO2% (BldA) [Mass fraction] 95 % Dr. Hortensia Unger Work Phone: [facility] 01-09-2023 10:02-0400 Systolic blood pressure 140 mm[Hg] Dr. Hortensia Unger Work Phone: [facility] 06-17-2022 14:56-0500 Body temperature 98.2 [degF] Dr. Hortensia Unger Work Phone: [facility] 06-17-2022 14:56-0500 Diastolic blood pressure 65 mm[Hg] Dr. Hortensia Unger Work Phone: [facility] 06-17-2022 14:56-0500 Heart rate 62 /min Dr. Hortensia Unger Work Phone: [facility] 06-17-2022 14:56-0500 Respiratory rate 18 /min Dr. Hortensia Unger Work Phone: [facility] 06-17-2022 14:56-0500 SaO2% (BldA) [Mass fraction] 95 % Dr. Hortensia Unger Work Phone: [facility] 06-17-2022 14:56-0500 Systolic blood pressure 116 mm[Hg] Dr. Hortensia Unger Work Phone: [facility] 06-17-2022 11:51-0500 Body mass index (BMI) [Ratio] 32.6 kg/m2 Dr. Hortensia Unegr Work Phone: [facility] 06-16-2022 18:14-0500 Diastolic blood pressure 67 mm[Hg] [facility] 06-16-2022 18:14-0500 Systolic blood pressure 156 mm[Hg] [facility] 06-16-2022 18:07-0500 Body height 154.[address] Hortensia Unger Work Phone: [facility] 06-16-2022 18:07-0500 Body weight 78.[address] Hortensia Unger Work Phone: [facility] 06-16-2022 17:33-0500 Body temperature 97.6 [degF] [facility] 06-16-2022 17:33-0500 Heart rate 67 /min [facility] 06-16-2022 17:33-0500 Respiratory rate 20 /min [facility] 06-16-2022 17:33-0500 SaO2% (BldA) [Mass fraction] 95 % [facility] 06-16-2022 12:16-0500 Body height 154.99 cm [facility] 06-16-2022 12:16-0500 Body mass index (BMI) [Ratio] 32.6 kg/m2 [facility] 06-16-2022 12:16-0500 Body weight 78.4 kg [facility] 03-07-2022 18:00-0400 Body temperature 97.8 [degF] [facility] 03-07-2022 18:00-0400 Diastolic blood pressure 89 mm[Hg] [facility] 03-07-2022 18:00-0400 Heart rate 83 /min [facility] 03-07-2022 18:00-0400 Respiratory rate 18 /min [facility] 03-07-2022 18:00-0400 SaO2% (BldA) [Mass fraction] 94 % [facility] 03-07-2022 18:00-0400 Systolic blood pressure 126 mm[Hg] [facility] 03-07-2022 14:47-0400 Body height 154.94 cm [facility] Work Phone: 03-07-2022 14:47-0400 Body mass index (BMI) [Ratio] 31.4 kg/m2 [facility] 03-07-2022 14:47-0400 Body weight 75.29 kg [facility] 03-07-2022 14:47-0400 Inhaled oxygen flow rate 2 L/min [facility] 11-12-2021 13:19-0400 Body temperature 98.5 [degF] Dr. Joao Simon Work Phone: [facility] Work Phone: 11-12-2021 13:19-0400 Diastolic blood pressure 83 mm[Hg] Dr. Joao Simon Work Phone: [facility] Work Phone: 11-12-2021 13:19-0400 Heart rate 63 /min Dr. Joao Simon Work Phone: [facility] Work Phone: 11-12-2021 13:19-0400 Respiratory rate 16 /min Dr. Joao Simon Work Phone: [facility] Work Phone: 11-12-2021 13:19-0400 SaO2% (BldA) [Mass fraction] 98 % Dr. Joao Simon Work Phone: [facility] Work Phone: 11-12-2021 13:19-0400 Systolic blood pressure 131 mm[Hg] Dr. Joao Simon Work Phone: [facility] Work Phone: 11-10-2021 12:44-0400 Body height 152.[address] Joao Simon Work Phone: [facility] Work Phone: 11-10-2021 12:44-0400 Body weight 75.[address] Joao Simon Work Phone: [facility] Work Phone: 11-10-2021 09:26-0400 Diastolic blood pressure 61 mm[Hg] Dr. Joao Simon Work Phone: [facility] Work Phone: 11-10-2021 09:26-0400 Heart rate 70 /min Dr. Joao Simon Work Phone: [facility] Work Phone: 11-10-2021 09:26-0400 Systolic blood pressure 131 mm[Hg] Dr. Joao Smion Work Phone: [facility] Work Phone: 11-09-2021 14:57-0400 Body weight 75.[address] Joao Simon Work Phone: [facility] Work Phone: 11-09-2021 14:00-0400 Body temperature 97.6 [degF] Dr. Joao Simon Work Phone: [facility] Work Phone: 11-09-2021 14:00-0400 Respiratory rate 16 /min Dr. Joao Simon Work Phone: [facility] Work Phone: 11-09-2021 14:00-0400 SaO2% (BldA) [Mass fraction] 97 % Dr. Joao Simon Work Phone: [facility] Work Phone: 11-05-2021 16:00-0400 Body height 152.[address] Joao Simon Work Phone: [facility] Work Phone: 11-04-2021 18:29-0400 Body mass index (BMI) [Ratio] 33.1 kg/m2 Dr. Joao Simon Work Phone: [facility] Work Phone: 11-04-2021 14:52-0400 Body temperature 98 [degF] Dr. Joao Simon Work Phone: [facility] Work Phone: 11-04-2021 14:52-0400 Diastolic blood pressure 57 mm[Hg] Dr. Joao Simon Work Phone: [facility] Work Phone: 11-04-2021 14:52-0400 Heart rate 72 /min Dr. Joao Simon Work Phone: [facility] Work Phone: 11-04-2021 14:52-0400 Respiratory rate 16 /min Dr. Joao Simon Work Phone: [facility] Work Phone: 11-04-2021 14:52-0400 SaO2% (BldA) [Mass fraction] 97 % Dr. Joao Simon Work Phone: [facility] Work Phone: 11-04-2021 14:52-0400 Systolic blood pressure 138 mm[Hg] Dr. Joao Simon Work Phone: [facility] Work Phone: 11-02-2021 17:39-0400 Body height 152.[address] Joao Simon Work Phone: [facility] Work Phone: 11-02-2021 17:39-0400 Body mass index (BMI) [Ratio] 32.1 kg/m2 Dr. Joao Simon Work Phone: [facility] Work Phone: 11-02-2021 17:39-0400 Body weight 74.[address] Joao Simon Work Phone: [facility] Work Phone: 11-02-2021 17:03-0400 Heart rate 74 /min Dr. Joao Simon Work Phone: [facility] Work Phone: 11-02-2021 15:36-0400 Body temperature 98.7 [degF] Dr. Joao Simon Work Phone: [facility] Work Phone: 11-02-2021 15:36-0400 Diastolic blood pressure 86 mm[Hg] Dr. Joao Simon Work Phone: [facility] Work Phone: 11-02-2021 15:36-0400 Respiratory rate 17 /min Dr. Joao Simon Work Phone: [facility] Work Phone: 11-02-2021 15:36-0400 SaO2% (BldA) [Mass fraction] 95 % Dr. Joao Simon Work Phone: [facility] Work Phone: 11-02-2021 15:36-0400 Systolic blood pressure 169 mm[Hg] Dr. Joao Simon Work Phone: [facility] Work Phone: 11-02-2021 11:48-0400 Body height 152.[address] Joao Simon Work Phone: [facility] Work Phone: 11-02-2021 11:48-0400 Body mass index (BMI) [Ratio] 32.8 kg/m2 Dr. Joao Simon Work Phone: [facility] Work Phone: 11-02-2021 11:48-0400 Body weight 76.[address] Joao Simon Work Phone: [facility] Work Phone: 09-29-2021 14:32-0400 Body mass index (BMI) [Ratio] 32.5 kg/m2 Dr. Joao Simon Work Phone: [facility] Work Phone: 09-29-2021 14:32-0400 Body weight 78.[address] Joao Simon Work Phone: [facility] Work Phone: 09-29-2021 14:32-0400 Diastolic blood pressure 83 mm[Hg] Dr. Joao Simon Work Phone: [facility] Work Phone: 09-29-2021 14:32-0400 Heart rate 66 /min Dr. Joao Simon Work Phone: [facility] Work Phone: 09-29-2021 14:32-0400 Respiratory rate 16 /min Dr. Joao Simon Work Phone: [facility] Work Phone: 09-29-2021 14:32-0400 SaO2% (BldA) [Mass fraction] 94 % Dr. Joao Simon Work Phone: [facility] Work Phone: 09-29-2021 14:32-0400 Systolic blood pressure 155 mm[Hg] Dr. Joao Simon Work Phone: [facility] Work Phone: 09-29-2021 14:32-0400 Body height 154.[address] Joe Rosario Work Phone: [facility] Work Phone: 09-29-2021 14:32-0400 Body mass index (BMI) [Ratio] 32.5 kg/m2 Dr. Joe Rosario Work Phone: [facility] Work Phone: 09-29-2021 14:32-0400 Body weight 78.[address] Joe Rosario Work Phone: [facility] Work Phone: 09-29-2021 14:32-0400 Diastolic blood pressure 83 mm[Hg] Dr. Joe Rosario Work Phone: [facility] Work Phone: 09-29-2021 14:32-0400 Heart rate 66 /min Dr. Joe Rosario Work Phone: [facility] Work Phone: 09-29-2021 14:32-0400 Respiratory rate 16 /min Dr. Joe Rosario Work Phone: [facility] Work Phone: 09-29-2021 14:32-0400 SaO2% (BldA) [Mass fraction] 94 % Dr. Joe Rosario Work Phone: [facility] Work Phone: 09-29-2021 14:32-0400 Systolic blood pressure 155 mm[Hg] Dr. Joe Rosario Work Phone: [facility] Work Phone: 06-26-2021 05:00-0500 Diastolic blood pressure 64 mm[Hg] Dr. Joe Rosario Work Phone: [facility] Work Phone: 06-26-2021 05:00-0500 Heart rate 69 /min Dr. Joe Rosario Work Phone: [facility] Work Phone: 06-26-2021 05:00-0500 Systolic blood pressure 141 mm[Hg] Dr. Joe Rosario Work Phone: [facility] Work Phone: 06-25-2021 13:03-0500 Body temperature 98.6 [degF] Dr. Joe Rosario Work Phone: [facility] Work Phone: 06-25-2021 13:03-0500 Respiratory rate 18 /min Dr. Joe Rosario Work Phone: [facility] Work Phone: 06-25-2021 13:03-0500 SaO2% (BldA) [Mass fraction] 92 % Dr. Joe Rosario Work Phone: [facility] Work Phone: 06-23-2021 13:54-0500 Body height 154.[address] Joe Rosario Work Phone: [facility] Work Phone: 06-23-2021 13:54-0500 Body weight 77.[address] Joe Rosario Work Phone: [facility] Work Phone: 06-18-2021 14:47-0500 Body mass index (BMI) [Ratio] 33.3 kg/m2 Dr. Joe Rosario Work Phone: [facility] Work Phone: 06-18-2021 11:04-0500 SaO2% (BldA) [Mass fraction] 92 % Dr. Joe Rosario Work Phone: [facility] Work Phone: 06-18-2021 10:40-0500 Body temperature 98.1 [degF] Dr. Joe Rosario Work Phone: [facility] Work Phone: 06-18-2021 10:40-0500 Diastolic blood pressure 67 mm[Hg] Dr. Joe Rosario Work Phone: [facility] Work Phone: 06-18-2021 10:40-0500 Heart rate 58 /min Dr. Joe Rosario Work Phone: [facility] Work Phone: 06-18-2021 10:40-0500 Respiratory rate 18 /min Dr. Joe Rosario Work Phone: [facility] Work Phone: 06-18-2021 10:40-0500 Systolic blood pressure 116 mm[Hg] Dr. Joe Rosario Work Phone: [facility] Work Phone: 06-18-2021 01:05-0500 Body weight 80.[address] Joe Rosario Work Phone: [facility] Work Phone: 06-17-2021 11:59-0500 Body mass index (BMI) [Ratio] 33 kg/m2 Dr. Joe Rosario Work Phone: [facility] Work Phone: Encounters Encounter Date Encounter Type Care Provider Facility Start: 12-17-2024 End: 12-17-2024 Office outpatient new 45 minutes Diana Simon MD Work Phone: Neurology Comment on above: Parkinsonism, unspec ified Parkinsonism type (HCC) (Primary Dx); Multifactorial gait disorder Start: 12-17-2024 End: 12-17-2024 ambulatory [facility] Facility:[facility] Start: 12-13-2024 ambulatory Melo THOMAS Facil ity:[facility] Start: 10-22-2024 End: 10-22-[address] Melo Shrestha MD [facility] Work Phone: Start: 10-22-2024 End: 10-22-[address] Melo Shrestha MD -[facility] Work Phone: Start: 10-22-2024 End: 10-22-2024 ambulatory Melo THOMAS Facility:[facility] Start: 10-09-2024 End: 10-09-2024 Emergency department patient visit Dr. Melo Shrestha MD -Emergency Department Work Phone: Start: 09-09-2024 End: 09-09-[address] Melo Shrestha MD [facility] Work Phone: Start: 09-09-2024 End: 09-09-[address] Melo Shrestha MD -[facility] Work Phone: Start: 09-09-2024 End: 09-09-2024 ambulatory Melo THOMAS Facility:[facility] Start: 08-12-2024 End: 08-12-[address] Melo Shrestha MD [facility] Work Phone: Start: 08-12-2024 End: 08-12-[address] [facility] Work Phone: Start: 08-12-2024 End: 08-12-2024 ambulatory Melo THOMAS Facility:[facility] Start: 07-29-2024 End: 07-29-[address] Melo Shrestha MD [facility] Work Phone: Start: 07-29-2024 End: 07-29-[address] [facility] Work Phone: Start: 07-29-[address] Melo delaney MD -[facility] Work Phone: Start: 07-29-2024 End: 07-29-2024 ambulatory Melo THOMAS Facility:[facility] Start: 07-25-2024 End: 07-25-[address] Melo Shrestha MD [facility] Work Phone: Start: 07-25-2024 End: 07-25-[address] [facility] Work Phone: Start: 07-25-[address] [facility] Work Phone: Start: 07-24-2024 End: 07-25-[address] Melo Shrestha MD [facility] Work Phone: Start: 07-24-2024 End: 07-24-[address] [facility] Work Phone: Start: 07-24-[address] [facility] Work Phone: Start: 07-24-2024 End: 07-24-2024 ambulatory Melo THOMAS Facility:[facility] Start: 2024 End: [address] Melo Shrestha MD [facility] Work Phone: Start: 2024 End: [address] [facility] Work Phone: Start: [address] [facility] Work Phone: Start: 2024 End: 2024 ambulatory Melo THOMAS Facility:[facility] Start: 07-18-2024 ambulatory Melo THOMAS Facil ity:[facility] Start: 07-18-[address] [facility] Work Phone: Start: 07-17-2024 End: 07-17-[address] Melo Shrestha MD [facility] Work Phone: Start: 07-17-2024 End: 07-17-[address] [facility] Work Phone: Start: 07-17-[address] [facility] Work Phone: Start: 07-16-2024 End: 07-17-2024 ambulatory Melo THOMAS Facility:[facility] Start: 07-16-[address] [facility] Work Phone: Start: 07-15-2024 ambulatory Melo THOMAS Facil ity:[facility] Start: 07-15-[address] [facility] Work Phone: Start: 07-12-2024 End: 07-12-[address] Melo Shrestha MD [facility] Work Phone: Start: 07-12-2024 End: 07-12-[address] [facility] Work Phone: Start: 07-12-[address] [facility] Work Phone: Start: 07-12-2024 End: 07-12-2024 ambulatory Melo THOMAS Facility:[facility] Start: 07-09-2024 ambulatory Melo THOMAS Facil ity:[facility] Start: 07-09-[address] [facility] Work Phone: Start: 07-08-2024 End: 07-08-[address] Melo Shrestha MD [facility] Work Phone: Start: 07-08-2024 End: 07-08-[address] [facility] Work Phone: Start: 07-08-[address] [facility] Work Phone: Start: 07-08-2024 End: 07-08-2024 ambulatory Melo THOMAS Facility:[facility] Start: 07-05-2024 End: 07-05-[address] Melo Shrestha MD [facility] Work Phone: Start: 07-05-2024 End: 07-05-[address] [facility] Work Phone: Start: 07-05-[address] [facility] Work Phone: Start: 07-04-2024 End: 07-05-2024 ambulatory Melo THOMAS Facility:[facility] Start: 07-04-[address] [facility] Work Phone: Start: 07-03-2024 End: 07-03-[address] Melo Shrestha MD [facility] Work Phone: Start: 07-03-2024 End: 07-03-[address] [facility] Work Phone: Start: 07-03-[address] [facility] Work Phone: Start: 07-02-2024 End: 07-03-[address] Melo Shrestha MD [facility] Work Phone: Start: 07-02-2024 End: 07-02-[address] [facility] Work Phone: Start: 07-01-2024 End: 07-02-[address] Melo Shrestha MD [facility] Work Phone: Start: 07-01-2024 End: 07-01-[address] [facility] Work Phone: Start: 07-01-[address] [facility] Work Phone: Start: 07-01-2024 End: 07-01-2024 ambulatory Melo THOMAS Facility:[facility] Start: 06-17-2024 ambulatory Melo THOMAS Facil ity:[facility] Start: 06-17-[address] [facility] Work Phone: Start: 06-16-2024 End: 06-16-[address] Melo Shrestha MD [facility] Work Phone: Start: 06-16-2024 End: 06-16-[address] [facility] Work Phone: Start: 06-16-[address] [facility] Work Phone: Start: 06-16-2024 End: 06-16-2024 ambulatory Melo THOMAS Facility:[facility] Start: 04-04-2024 End: 04-04-[address] [facility] Work Phone: Start: 04-04-2024 End: 04-04-2024 ambulatory Melo THOMAS Facility:[facility] Start: 03-25-2024 End: 03-25-2024 ambulatory Melo THOMAS Facility:[facility] Start: 03-24-2024 End: 03-24-2024 Emergency department patient visit Melo THOMAS Facility:[facility] Start: 03-22-2024 End: 03-22-2024 ambulatory Melo THOMAS Facility:[facility] Start: 03-21-2024 End: 03-21-2024 ambulatory Melo THOMAS Facility:[facility] Start: 03-20-2024 End: 03-20-2024 ambulatory Melo Hopsonins OLS Facility:[facility] Start: 03-19-2024 End: 03-19-2024 ambulatory Melo Hopsonins OLS Facility:[facility] Start: 03-18-2024 End: 03-18-2024 ambulatory Melo Hopsonins OLS Facility:[facility] Start: 03-14-2024 End: 03-14-2024 ambulatory Melo Hopsonins OLS Facility:[facility] Start: 02-29-2024 End: 02-29-2024 ambulatory Melo Hopsonins OLS Facility:[facility] Start: 02-21-2024 End: 02-21-2024 ambulatory Melo Hopsonins OLS Facility:[facility] Start: 02-20-2024 End: 02-20-2024 ambulatory Melo Hopsonins MARTHA Facility:[facility] Start: 02-19-2024 End: 02-19-2024 ambulatory Joao Simon Facility:[facility] Start: 01-09-2024 End: 01-09-2024 ambulatory Melo Shrestha MARTHA Facility:[facility] Start: 09-11-2023 End: 09-11-2023 ambulatory [facility] Work Phone: Start: 09-11-2023 End: 09-11-20[address] Depart[address] [facility] [facility] Work Phone: Start: 08-30-2023 End: 08-30-2023 ambulatory [facility] Work Phone: Start: 08-30-2023 End: 08-30-2023 Departed Referred [facility] Work Phone: Start: 08-09-2023 End: 08-09-2023 ambulatory [facility] Work Phone: Start: 08-09-2023 End: 08-09-2023 Departed Referred [facility] Work Phone: Start: 07-26-2023 End: 07-26-2023 ambulatory [facility] Work Phone: Start: 07-26-2023 End: 07-26-2023 Departed Referred [facility] Work Phone: Start: 07-11-2023 End: 07-11-2023 ambulatory [facility] Work Phone: Start: 07-11-2023 End: 07-11-2023 Departed Referred [facility] Work Phone: Start: 06-28-2023 End: 06-28-2023 ambulatory [facility] Work Phone: Start: 06-28-2023 End: 06-28-2023 Departed Referred [facility] Work Phone: Start: 06-28-2023 Registered Referred [facility] Work Phone: Start: 06-14-2023 End: 06-14-2023 ambulatory [facility] Work Phone: Start: 06-14-2023 End: 06-14-2023 Departed Referred [facility] Work Phone: Start: 05-31-2023 End: 05-31-2023 ambulatory [facility] Work Phone: Start: 05-31-2023 End: 05-31-2023 Departed Referred [facility] Work Phone: Start: 05-23-2023 End: 05-23-2023 ambulatory [facility] Work Phone: Start: 05-23-2023 End: 05-23-2023 Departed Referred [facility] Work Phone: Start: 05-08-2023 End: 05-08-2023 ambulatory [facility] Work Phone: Start: 05-08-2023 End: 05-08-2023 [facility] Work Phone: Start: 04-06-2023 End: 04-06-[address] Hortensia Unger Work Phone: [facility] Work Phone: Start: 04-06-2023 End: 04-06-[address] Hortensia Unger Work Phone: [facility] Work Phone: Start: 03-06-2023 End: 03-06-[address] Hortensia Unger Work Phone: [facility] Work Phone: Start: 02-21-2023 End: 02-21-[address] Hortensia Unger Work Phone: [facility] Work Phone: Start: 02-21-2023 End: 02-21-[address] Hortensia Unger Work Phone: [facility] Work Phone: Start: 02-14-2023 End: 02-14-[address] Hortensia Unger Work Phone: [facility] Work Phone: Start: 02-14-2023 End: 02-14-[address] Hortensia Unger Work Phone: [facility] Work Phone: Start: 02-14-[address] Hortensia menchaca Work Phone: [facility] Work Phone: Start: 02-07-2023 End: 02-07-[address] Hortensia Unger Work Phone: [facility] Work Phone: Start: 02-07-2023 End: 02-07-[address] Hortensia Unger Work Phone: [facility] Work Phone: Start: 02-02-2023 End: 02-02-2023 Emergency department patient visit Dr. Hortensia Unger Work Phone: [facility] Work Phone: Start: 01-09-2023 End: 01-09-[address] Hortensia Unger Work Phone: [facility] Work Phone: Start: 01-03-2023 End: 01-03-[address] Hortensia Unger Work Phone: [facility] Work Phone: Start: 11-30-2022 End: 11-30-2022 ambulatory [facility] Work Phone: Start: 11-30-2022 End: 11-30-2022 Departed Referred [facility] Work Phone: Start: 11-30-2022 Registered Referred [facility] Work Phone: Start: 11-16-2022 End: 11-16-2022 ambulatory [facility] Work Phone: Start: 11-16-2022 End: 11-16-2022 Departed Referred [facility] Work Phone: Start: 11-02-2022 End: 11-02-2022 ambulatory [facility] Work Phone: Start: 11-02-2022 End: 11-02-2022 Departed Referred [facility] Start: 10-19-2022 End: 10-19-2022 Departed Referred [facility] Start: 10-05-2022 End: 10-05-[address] Hortensia Unger Work Phone: [facility] Work Phone: Start: 10-05-2022 End: 10-05-[address] Hortensia Unger Work Phone: [facility] Start: 10-03-2022 End: 10-03-[address] Hortensia Unger Work Phone: [facility] Work Phone: Start: 10-03-2022 End: 10-03-[address] Hortensia Unger Work Phone: [facility] Start: 09-28-2022 End: 09-28-[address] Hortensia Unger Work Phone: [facility] Work Phone: Start: 09-28-2022 End: 09-28-[address] Hortensia Unger Work Phone: [facility] Start: 09-28-[address] Hortensia menchaca Work Phone: [facility] Start: 09-20-2022 End: 09-20-[address] Hortensia Unger Work Phone: [facility] Start: 09-16-2022 End: 09-16-[address] Hortensia Unger Work Phone: [facility] Work Phone: Start: 09-16-2022 End: 09-16-[address] Hortensia Unger Work Phone: [facility] Start: 09-16-[address] Hortensia menchaca Work Phone: [facility] Start: 08-29-2022 End: 08-29-[address] Hortensia Unger Work Phone: [facility] Work Phone: Start: 08-29-2022 End: 08-29-[address] Hortensia Unger Work Phone: [facility] Start: 08-08-2022 End: 08-08-[address] Hortensia Unger Work Phone: [facility] Start: 07-28-2022 End: 07-28-[address] Hortensia Unger Work Phone: [facility] Start: 07-11-2022 End: 07-11-[address] Hortensia Unger Work Phone: [facility] Work Phone: Start: 07-11-2022 End: 07-11-[address] Hortensia Unger Work Phone: [facility] Start: 07-01-2022 End: 07-01-[address] Hortensia Unger Work Phone: [facility] Start: 06-17-2022 Non-patient / Non-visit Dr. Isacc Unger Work Phone: [facility] Start: 06-16-2022 Non-patient / Non-visit Dr. Isacc Unger Work Phone: [facility] Start: 06-16-2022 End: 06-17-2022 Evaluation and management of inpatient [facility] Start: 06-16-2022 End: 06-17-[address] Hortensia Unger Work Phone: [facility] Work Phone: Start: 06-06-2022 End: 06-06-2022 ambulatory [facility] Work Phone: Start: 06-06-2022 End: 06-06-2022 [facility] Start: 05-09-2022 End: 05-09-2022 [facility] Start: 04-07-2022 End: 04-07-2022 ambulatory [facility] Work Phone: Start: 04-07-2022 End: 04-07-2022 [facility] Start: 03-26-2022 End: 03-26-2022 ambulatory [facility] Work Phone: Start: 03-26-2022 End: 03-26-2022 [facility] Start: 03-26-2022 [facility] Start: 03-16-2022 End: 03-16-2022 ambulatory [facility] Work Phone: Start: 03-16-2022 End: 03-16-2022 [facility] Start: 03-16-2022 [facility] Start: 03-15-2022 End: 03-15-2022 ambulatory [facility] Work Phone: Start: 03-15-2022 End: 03-15-2022 [facility] Start: 03-07-2022 End: 03-07-2022 Emergency department patient visit [facility] Start: 03-07-2022 End: 03-07-2022 ambulatory [facility] Work Phone: Start: 03-07-2022 End: 03-07-2022 [facility] Start: 02-03-2022 End: 02-03-[address] Joao Simon Work Phone: [facility] Work Phone: Start: 02-03-2022 End: 02-03-[address] Joao Simon Work Phone: [facility] Start: 01-06-2022 End: 01-06-[address] Joao Simon Work Phone: [facility] Work Phone: Start: 01-06-2022 End: 01-06-[address] Joao Simon Work Phone: [facility] Start: 12-20-[address] Joao morin Work Phone: [facility] Start: 12-13-[address] Joao morin Work Phone: [facility] Start: 12-10-[address] Joao morin Work Phone: [facility] Start: 12-02-[address] Joao morin Work Phone: [facility] Start: 11-25-[address] Joao morin Work Phone: [facility] Start: 11-23-[address] Joao morin Work Phone: [facility] Start: 11-18-2021 End: 11-18-[address] Joao Simon Work Phone: [facility] Start: 11-04-2021 End: 11-12-2021 Evaluation and management of inpatient Dr. Joao Simon Work Phone: [facility] Start: 11-04-2021 Non-patient / Non-visit Dr. Rodrick Simon Work Phone: [facility] Start: 11-03-2021 Non-patient / Non-visit Dr. Rodrick Simon Work Phone: [facility] Start: 11-02-2021 End: 11-04-2021 Evaluation and management of inpatient [facility] Start: 10-21-2021 End: 10-21-[address] Joao Simon Work [facility] Start: 10-13-2021 End: 10-13-[address] Joao Simon [facility] Start: 10-06-2021 End: 10-06-[address] Joao Simon Work [facility] Start: 09-29-2021 End: 09-29-[address] Joe Rosario Work Phone: [facility] Start: 09-14-2021 End: 09-14-[address] Joe Rosario Work Phone[facility] Start: 08-27-2021 End: 08-27-[address] Joe Rosario Work Phone: [facility] Start: 08-11-2021 End: 08-11-[address] Joe Rosario Work Phone: [facility] Start: 07-28-2021 End: 07-28-[address] Joe Rosario Work Phone: [facility] Start: 07-14-2021 End: 07-14-[address] Joe Rosario Work Phone: [facility] Start: 06-18-2021 End: 06-26-2021 Evaluation and management of inpatient Dr. Joe Rosario Work Phone: [facility] Start: 06-18-2021 Non-patient / Non-visit Dr. Peraza Work Phone: [facility] Start: 06-17-2021 Non-patient / Non-visit Dr. Peraza Work Phone: [facility] Start: 06-17-2021 End: 06-18-2021 Evaluation and management of inpatient [facility]. Joe Rosario [facility] Start: 06-10-2021 End: 06-10-[address] Joe Rosario Work Phone: [facility] Start: 05-12-[address] [facility] Rosario Work [facility] Procedures Date Procedure Procedure Detail Performing Clinician Start: 10-09-2024 CT cervical spine without contrast Dr. Mleo Shrestha MD Start: 10-09-2024 CT of head [...] 06-17-2021 CT of head without contrast Dr. Joe Rosario Work Phone: Start: 06-17-2021 Plain x-ray [...] Treatment Date Care Activity Detail Author Start: 01-27-2025 Influenza vaccination Influenza Vaccine (#1) [facility] Start: 10-09-2024 [facility] Start: 05-29-2024 Advance Directive Discussion Advance Directive Discussion [facility] Start: 05-29-2024 Medicare Advantage Annual Wellness Visit Medicare Advantage Annual Wellness Visit [facility] Start: 01-29-2023 Patient referral [facility] Work Phone: Start: 06-17-2022 Patient discharge [facility] Start: 06-16-2022 Assessment of risk of venous thromboembolism [facility] Start: 06-16-2022 Cardiac monitoring [facility] Start: 06-16-2022 Catheterization of vein [facility] Start: 06-16-2022 Continuous pulse oximetry [facility] Start: 06-16-2022 Exercises [facility] Start: 06-16-2022 Insertion of catheter into peripheral vein [facility] Start: 06-16-2022 Measuring intake and output [facility] Start: 06-16-2022 Notification of physician [facility] Start: 06-16-2022 Oxygen therapy [facility] Start: 06-16-2022 Providing care according to standard [facility] Start: 06-16-2022 Provision of activity privileges [facility] Start: 06-16-2022 Referral to occupational therapist [facility] Start: 06-16-2022 Referral to service [facility] Start: 06-16-2022 Speech therapy assessment [facility] Start: 06-16-2022 [facility] Start: 06-16-2022 Following clinical pathway protocol [facility] Start: 06-16-2022 Verification routine [facility] Start: 06-16-2022 Admission procedure [facility] Start: 06-16-2022 [facility] Start: 12-24-2021 Blood chemistry [facility] Work Phone: Start: 12-17-2021 Blood chemistry [facility] Work Phone: Start: 12-10-2021 Blood chemistry [facility] Work Phone: Start: 12-03-2021 Blood chemistry [facility] Work Phone: Start: 11-29-2021 Prothrombin time [facility] Work Phone: Start: 11-26-2021 Blood chemistry [facility] Work Phone: Start: 11-25-2021 Prothrombin time [facility] Work Phone: Start: 11-22-2021 Prothrombin time [facility] Work Phone: Start: 11-19-2021 Blood chemistry [facility] Work Phone: Start: 11-18-2021 Prothrombin time [facility] Work Phone: Start: 11-15-2021 Prothrombin time [facility] Work Phone: Start: 11-14-2021 Development of care plan [facility] Work Phone: Start: 11-12-2021 Blood chemistry [facility] Work Phone: Start: 11-12-2021 Patient discharge [facility] Work Phone: Start: 11-11-2021 SARS-CoV-2 (COVID-19) Ag [Presence] in Respiratory specimen by Rapid immunoassay [facility] Work Phone: Start: 11-11-2021 [facility] Work Phone: Start: 11-11-2021 Prothrombin time [facility] Work Phone: Start: 11-10-2021 Referral to service [facility] Work Phone: Start: 11-08-2021 [facility] Work Phone: Start: 11-05-2021 Speech therapy management [facility] Work Phone: Start: 11-05-2021 Developing a treatment plan [facility] Work Phone: Start: 11-05-2021 Development of care plan [facility] Work Phone: Start: 11-05-2021 Speech therapy assessment [facility] Work Phone: Start: 11-04-2021 Following clinical pathway protocol [facility] Work Phone: Start: 11-04-2021 Admission procedure [facility] Work Phone: Start: 11-04-2021 Measuring intake and output [facility] Work Phone: Start: 11-04-2021 Patient referral to dietitian [facility] Work Phone: Start: 11-04-2021 Referral to occupational therapist [facility] Work Phone: Start: 11-04-2021 Referral to service [facility] Work Phone: Start: 11-04-2021 Verification routine [facility] Work Phone: Start: 11-04-2021 Vital signs measurements [facility] Work Phone: Start: 11-04-2021 [facility] Work Phone: Start: 11-04-2021 Patient discharge [facility] Work Phone: Start: 11-03-2021 Inhalation therapy procedure [facility] Work Phone: Start: 11-02-2021 Assessment of risk of venous thromboembolism [facility] Work Phone: Start: 11-02-2021 Insertion of catheter into peripheral vein [facility] Work Phone: Start: 11-02-2021 Providing care according to standard [facility] Work Phone: Start: 11-02-2021 Provision of activity privileges [facility] Work Phone: Start: 11-02-2021 Referral to occupational therapist [facility] Work Phone: Start: 11-02-2021 Referral to service [facility] Work Phone: Start: 11-02-2021 [facility] Work Phone: Start: 11-02-2021 Following clinical pathway protocol [facility] Work Phone: Start: 11-02-2021 Admission procedure [facility] Work Phone: Start: 03-07-2018 Diabetic foot examination Diabetic Foot Exam [facility] Start: 03-06-2018 Hepatitis B screening Urine Albumin:Creatinine Ratio [facility] Start: 03-06-2018 Hepatitis B surface antibody level LDL Cholesterol [facility] Start: 09-04-2017 Hemoglobin A1c measurement HbA1C [facility] Start: 04-29-2017 Glaucoma screening Dilated Retinal Exam [facility] Start: 02-06-2016 Urine microalbumin profile DTaP,Tdap,Td Vaccine (1 - Tdap) [facility] Start: 2012 RSV Vaccine (1 - 1-dose 75+ series) RSV Vaccine (1 - 1-dose 75+ series) [facility] Start: 1987 Shingrix Vaccine (1 of 2) Shingrix Vaccine (1 of 2) [facility] Anion gap measurement [facility] Work Phone: BUN/Creatinine ratio [facility] Work Phone: Calcium [Mass/volume ] in Serum or Plasma [facility] Work Phone: Carbon dioxide, tota l [Moles/volume] in Serum or Plasma [facility] Work Phone: Chloride [Moles/volu me] in Serum or Plasma [facility] Work Phone: Creatinine [Moles/vo lume] in Serum or Plasma [facility] Work Phone: Folate [Mass/volume] in Serum or Plasma [facility] Glucose [Mass/volume ] in Serum or Plasma [facility] Work Phone: Hematocrit [Volume Fraction] of Blood [facility] Work Phone: Hemoglobin [Mass/vol ume] in Blood [facility] Work Phone: INR in Blood by Coag ulation assay [facility] Work Phone: [place] and lambda lig ht chains [facility] Leukocytes [#/volume ] in Blood [facility] Work Phone: Mean corpuscular hem oglobin concentration determination [facility] Work Phone: Mean corpuscular hem oglobin determination [facility] Work Phone: Measurement of renal function [facility] Work Phone: Neutrophil count [facility] Work Phone: Neutrophil percent differential count [facility] Work Phone: Patient Education [facility] Work Phone: Patient referral [facility] Work Phone: Platelets [#/volume] in Blood [facility] Work Phone: Potassium [Moles/vol ume] in Serum or Plasma [facility] Work Phone: Prothrombin time [facility] Work Phone: Red blood cell count [facility] Work Phone: Red cell distributio n width determination [facility] Work Phone: Sodium [Moles/volume ] in Serum or Plasma [facility] Work Phone: Thiamine measurement [facility] Thyroid stimulating hormone measurement [facility] Urea nitrogen [Mass/ volume] in Serum or Plasma [facility] Work Phone: [place] Heart [facility] Work Phone: Vitamin B12 measurement [facility] Immunizations Immunization Date Immunization Notes Care Provider Fran perez 11-09-2021 Covid (Pfizer) Dr. Joao lakhani Work Phone: [facility] 04-16-[address] Joe Rosario Work Phone: [facility] 03-17-2021 Covid (Pfizer) Dr. Joe Riggs nnedy Work Phone: [facility] 07-16-2020 Covid (Pfizer) Dr. Joe Riggs nnedy Work Phone: [facility] 06-24-2020 Covid (Pfizer) Dr. Joe Riggs nnedy Work Phone: [facility] 02-15-2017 influenza, high dose seasonal, preservative-free Diana Simon MD Work Phone: [facility] 02-15-2017 influenza virus vacc ine, unspecified formulation Diana Simon MD Work Phone: [facility] 05-13-2016 influenza, high dose seasonal, preservative-free Diana Simon MD Work Phone: [facility] 03-08-[address] Joe Rosario Work Phone: [facility] 02-05-2016 tetanus and diphther ia toxoids, adsorbed, preservative free, for adult use (5 Lf of tetanus toxoid and 2 Lf of diphtheria toxoid) Diana Simon MD Work Phone: [facility] 03-31-2015 influenza, high dose seasonal, preservative-free Diana Simon MD Work Phone: [facility] 06-30-2014 pneumococcal conjuga te vaccine, 13 valent Diana Simon MD Work Phone: [facility] 03-26-2014 influenza, seasonal, injectable Diana Simon MD Work Phone: [facility] 03-30-2013 influenza virus vacc ine, unspecified formulation Diana Simon MD Work Phone: [facility] 05-07-2012 influenza virus vacc ine, unspecified formulation Diana Simon MD Work Phone: [facility] 04-18-2011 influenza virus vacc ine, unspecified formulation Diana Simon MD Work Phone: [facility] 02-17-2009 influenza virus vacc ine, unspecified formulation Diana Simon MD Work Phone: [facility] Work Phone: 04-01-2008 influenza virus vacc ine, unspecified formulation Diana iSmon MD Work Phone: [facility] 03-28-2007 influenza virus vacc ine, unspecified formulation Diana Simon MD Work Phone: [facility] Work Phone: 05-15-2006 influenza virus vacc ine, unspecified formulation Diana Simon MD Work Phone: [facility] 02-26-2006 pneumococcal polysaccharide vaccine, 23 valent Diana Simon MD Work Phone: [facility] 01-13-2006 tetanus and diphther ia toxoids, adsorbed, preservative free, for adult use (2 Lf of tetanus toxoid and 2 Lf of diphtheria toxoid) Diana Simon MD Work Phone: [facility] 03-22-2005 influenza virus vacc ine, unspecified formulation Diana Simon MD Work Phone: [facility] Payers Date Payer Category Payer Self-pay [id number] 2018 Medicare (Managed Care) MMO [employer] PPO [id number] 2015 Medicare [id number] Unknown [id number] 2.16.840.1.044785.3.579 .2.462 Unknown [id number] 2.16.840.1.235100.3.579 .2.462 Unknown [id number] 2.16.840.1.760991.3.579 .2.462 Unknown [id number] 2.16.840.1.695979.3.579 .2.462 Unknown [id number] 2.16.840.1.319349.3.579 .2.462 Unknown [id number] 2.16.840.1.447544.3.579 .2.462 Unknown [id number] 2.16.840.1.549986.3.579 .2.462 Unknown [id number] 2.16.840.1.780165.3.579 .2.462 Unknown [id number] 2.16.840.1.431853.3.579 .2.462 Unknown [id number] 2.16.840.1.344800.3.579 .2.462 Unknown [id number] 2.16.840.1.737366.3.579 .2.462 Unknown [id number] 2.16.840.1.889659.3.579 .2.462 Unknown [id number] 2.16.840.1.461878.3.579 .2.462 Unknown [id number] 2.16.840.1.416333.3.579 .2.462 Unknown [id number] 2.16.840.1.398687.3.579 .2.462 Unknown [id number] 2.16.840.1.025987.3.579 .2.462 Unknown [id number] 2.16.840.1.329158.3.579 .2.462 Unknown [id number] 2.16.840.1.272743.3.579 .2.462 Unknown [id number] 2.16.840.1.927778.3.579 .2.462 Unknown [id number] 2.16.840.1.639294.3.579 .2.462 Unknown [id number] 2.16.840.1.942707.3.579 .2.462 Unknown [id number] 2.16.840.1.636022.3.579 .2.462 Unknown [id number] 2.16.840.1.490058.3.579 .2.462 Unknown [id number] 2.16.840.1.182768.3.579 .2.462 Unknown [id number] 2.16.840.1.028498.3.579 .2.462 Unknown [id number] 2.16.840.1.471812.3.579 .2.462 Unknown [id number] 2.16.840.1.107182.3.579 .2.462 Unknown [id number] 2.16840.1.491799.3.579 .2.462 Unknown [id number] 2.16840.1.794283.3.579 .2.462 Unknown [id number] 2.16.840.1.646653.3.579 .2.462 Unknown [id number] 2.16.840.1.906284.3.579 .2.462 Unknown [id number] 2.16.840.1.337006.3.579 .2.462 Unknown [id number] 2.16840.1.785314.3.579 .2.462 Unknown [id number] 2.16840.1.510399.3.579 .2.462 Unknown [id number] 2.16840.1.213093.3.579 .2.462 Unknown [id number] 2.16840.1.098754.3.579 .2.462 Unknown [id number] 2.16840.1.300893.3.579 .2.462 Social History Date Type Detail Facility Start: 06-18-2021 End: 02-02-2023 Tobacco smoking status NHIS Unknown if ever smoked [facility] Start: 04-11-2019 None [facility] Start: 09-06-2019 Alone [facility] Start: 1935 Sex Assigned At Female [facility] Start: 03-24-2024 End: 12-17-2024 Tobacco smoking status NHIS Ex-smoker (finding) [facility] Start: 08-02-2024 End: 09-10-2024 Sex Female (finding) [facility] Start: [birth year]-29-1962 End: 05-29-1987 History of tobacco use Current smoker [facility] Start: 05-29-1962 End: 05-29-1987 History of tobacco use Cigarette Smoker [facility] Start: 12-17-2024 Cigarettes smoked current (pack per day) - Reported 1 [facility] Start: 12-17-2024 Tobacco use and exposure Smokeless tobacco non-user [facility] Start: 12-17-2024 Alcoholic beverage intake Current drinker of alcohol (finding) [facility] Start: 12-17-2024 Tobacco use panel [facility] Adult Depression Screening Assessment 1 [facility] Start: 03-29-2013 Alcohol Comment 1 glass of win e per month or less [facility] Start: 1935 Sex assigned at Not on file [facility] Medical Equipment Procedure Code Equipment Code Equipment Origin al Text Equipment Identifier Dates [place] Ptfe 1.2 Cm X 10 Cm - [id number] Start: 04-02-2013 Comment on above: Description: [place] pl edgets Test blood sugar(s) one times daily. Dx: Type 2 DM - Controlled E11.40 Insulin: No [id number] Start: 02-16-2016 End: 12-20-2024 Test blood sugar(s) one times daily. Dx: Type 2 DM - Controlled E11.40 Insulin: No [id number] Start: 02-16-2016 End: 12-20-2024 Goals Date Patient Goal Desired Activity /State Functional Status Date Assessment Result Facility 06-17-2022 Functional status Bedrest [facility] Work Phone: 11-12-2021 Functional status Ambulates;Up ad romero [facility] Work Phone: 11-10-2021 Functional status Ambulates;Up ad romero [facility] Work Phone: 11-04-2021 Functional status Chair [facility] Work Phone: 06-25-2021 Functional status Activity Abili ty Independent [facility] Work Phone: 06-22-2021 Functional status Ambulates [facility] Work Phone: 06-18-2021 Functional status Patient Activity Chair [facility] Work Phone: 06-18-2021 Functional status Activity Abili ty With Assist of 1 [facility] Work Phone: 10-13-2015 Are you deaf, or do you have serious difficulty hearing No 10/13/2015 9:43 AM Henrietta Ortega RN No [facility] 10-13-2015 Are you blind, or do you have serious difficulty seeing, even when wearing glasses No 10/13/2015 9:43 AM Henrietta Ortega RN No [facility] 10-13-2015 Do you have serious difficulty walking or climbing stairs No 10/13/2015 9:43 AM Henrietta Ortega, SAI No [facility] 10-13-2015 Do you have difficul ty dressing or bathing No 10/13/2015 9:43 AM Henrietta Ortega, SAI No [facility] 10-13-2015 Because of a physica l, mental, or emotional condition, do you have difficulty doing errands alone such as visiting a physician's office or shopping No 10/13/2015 9:43 AM Henrietta Ortega RN No [facility] Mental Status Date Assessment Result Facility 06-17-2022 Cognitive function Voice/Name [facility] Work Phone: 06-16-2022 Cognitive function Voice/Name [facility] Work Phone: 11-12-2021 Cognitive function Voice/Name [facility] Work Phone: 11-10-2021 Cognitive function Comprehension Ability Demonstrates ability to follow instructions/comprehend [facility] Work Phone: 11-09-2021 Cognitive function Voice/Name [facility] Work Phone: 11-05-2021 Cognitive function Comprehension Ability Demonstrates ability to follow instructions/comprehend [facility] Work Phone: 11-04-2021 Cognitive function Appropriate;Cooperativ e [facility] Work Phone: 06-25-2021 Cognitive function Voice/Name [facility] Work Phone: 06-18-2021 Cognitive function Voice/Name [facility] Work Phone: 10-13-2015 Because of a physica l, mental, or emotional condition, do you have serious difficulty concentrating, remembering, or making decisions No 10/13/2015 9:43 AM EDT Henrietta Newberry RN [facility] Clinical Notes 04-02-2013 to 12-20-2024 Diana Simon MD - 12/20/2024 5:46 PM EDT Note Date & Type Note Facility 12-20-2024 Note HNO ID: [id number] Author: DIANA SIMON MD Service: ? Author Type: Physician Type: Progress Notes Filed: 12/20/2024 17:59 Note Text: [facility] PATIENT EVALUATION Recording using ambient Food[employer] software for draft documentation of the visit was discussed with the patient/authorized technical account representative; all questions welcomed and answered. Patient/authorized technical account representative agreed to proceed Referring Provider: Melo Shrestha [address] [facility] [address] Dear Melo Shrestha: Thank you for referring Ms. Richardson to [...] three years ago by a neurologist in [place]. At the time of diagnosis, she was [...] physical therapy and an exercise class called [employer] at her [facility], which she enjoys. She does not endorse [...] dry mouth but also wet in the corn (more content not included)... [facility] 12-20-2024 History of Present illness Narrative [facility] - NEW PATIENT EVALUATION Recording using [employer] software for draft documentation of the visit was discussed with the patient/authorized technical account representative; all questions welcomed and answered. Patient/authorized technical account representative agreed to proceed Referring Provider: Melo Shrestha 0 [facility] Physicians [facility] [address] Dear Melo Shrestha: Thank you for referring Ms. Richardson to [...] three years ago by a neurologist in [place]. At the time of diagnosis, she was [...] physical therapy and an exercise class called [employer] at her [facility], which she enjoys. 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), Coronary atherosclerosis of unspecified type of vessel, tunica-biloxi or graft (01/24/2005), Depressive disorder, not elsewhere classified (10/15/2008), Diverticulosis of colon (without mention of hemorrhage), DVT (deep venous thrombosis) ([facility]) (03/04/2009), Dysmetabolic syndrome X (07/30/2008), 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 Patient has had a hysterectomy. Body mass index is 27.9 kg/m . Neurological Exam Mental Status Awake and alert. [...] Vibration sense reduced at ankles. Coordination Right: Vfoqpl-hx-epqi normal. Rapid alternating movement normal.Left: Jfjiat-ya-ojsx normal. Rapid alternating movement normal. Movement Disorders [...] diagnosed 3 years ago by neurology in [place]; currently on carbidopa-levodopa (Sinemet) with unclear benefit. [...] vibratory sensation in ankles, mild tremor on ghampo-fg-zlox testing, micrographia, and slowed speech. More convincing [...] mg twice daily Level of service : 94914 (45-59 min). Time spent 56 min on the day of service, which included preparing to see the patient, buov-fv-zenp patient care, completing clinical documentation, obtaining and/or reviewing separately obtained history, performing a medically appropriate examination, counseling and educating the patient/family/caregiver, and ordering medications, tests, or procedures. Thank you for allowing me to be part of the clinical care of this patient! I look forward to continued participation in the patient s care with you. Please do not hesitate to call with any questions. Sincerely, Diana Simon MD documented in this encounter [facility] 10-09-2024 Radiology Diagnostic study note [facility] Imaging Services [address] [place] [address] [id number] Spine Cervical without Contras MR#: [id number] Acct: [id number] Name: COLETTE RICHARDSON Rep #: [id number] : 1935 F 89 From: Kristen Schmidt MD PCP: Dr. Melo Shrestha MD Status: REG ER Study:Spine Cervical without Contras Date of Exam: 10/09/24 Exam# [id number] Ordering Dr: Se Schmidt DO EXAM: CT [...] changes cervical spine as described. Reading Location: [facility] CC: Dr. Melo Shrestha MD; Dr. Se Schmidt DO ~ Slide Maker: Signed [facility] 10-09-2024 Radiology Diagnostic study note [facility] Imaging Services [address] [place], [place] [address] Brain/Head without Contrast MR#: [id number] Acct: [id number] Name: COLETTE RICHARDSON Rep #: [id number] : 1935 F 89 From: Kristen Schmidt MD PCP: Dr. Melo Shrestha MD Status: REG ER Study:Brain/Head without Contrast Date of Exa m: 10/09/24 Exam# [id number] Ordering Dr: Se Schmidt DO EXAM: CT [...] evaluation with MRI is recommended. Reading Location: [facility] CC: Dr. Melo Shrestha MD; Dr. Se Schmidt DO ~ Slide Maker: Signed [facility] 10-09-2024 Hospital Discharge instructions Additional Instructions Your INR is 2.[address] head and neck negative for acute process. Use Tylenol as needed. Follow-up with your doctor. [facility] Work Phone: 02-02-2023 Discharge summary Note Date/Time February 02, 2023 5:54pm [facility] Medical Records Department [address] [place] [address] Emergency Department Summary 02/02/23 MR#: [id number] Acct: [id number] Name: COLETTE RICHARDSON Rep #:[id number] : 1935 87 From: Matt Coy [...] concerned that that might be causing this. 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 Atrial fibrillation with RVR (10/01/16) Bilateral breast cancer Depression Essential hypertension Frequent falls History of non-ST elevation myocardial infarction (NSTEMI) (10/01/16) History of Parkinson's disease History of pulmonary embolus (PE) Hypercoagulable state senior care current use of anticoagulant Memory loss Nonrheumatic [...] release 24 hr 150 mg PO BREAKFAST XFKEGXPGVB50/07/22 [History Last Taken 06/16/22 09:15] alprazolam 0.25 [...] AdvReac Itching Verified 02/02/23 15:12 [From Vicodin] Msuitlh-CZJ-HzJ Reductase AdvReac Other Verified 02/02/23 15:12 Inhibitor [Gxjrjlq-Rls-Hpo Reductase Inhibitor] Surgical History H/O coronary artery [...] % (Auto) 65.1 Lymph % (Auto) 24.4 Kershaw % (Auto) 7.9 Eos % (Auto) 1.7 [...] Clarity Clear Urine pH 6.5 Ur Specific [place] 1.015 Urine Protein Negative Urine Glucose (UA) [...] day three times weekly on , [facility] car[facility]opa-lev[facility]opa 10-100 mg tablet,disintegrating 1 tab PO [...] 3-5 Days if not improving Disposition Disposition: Detention Facility What to do if you have Problems For any increased pain, shortness of breath, bleeding, nausea or vomiting, chestpain, or any unexpected problems, contact your Primary Care Provider. Call [facility] ([phone]) or report to the closest Emergency Room. Call 911 if necessary. 02/02/232013 <Electronically signed by Matt Coy MD> Cosigner Signature (if applicable): CC: Dr. Joao Simon MD ~ Signed [facility] Work Phone: 1(636) 949-236101-20-[address] Lopez [facility] June 17, 2022 1:53pm Note Date/Time June 17, 2022 1 2:29pm [facility] Medical Records Department [address] [place] [address] Instructions for Home/Discharge Instructions 06/17/22 1229 MR#: [id number] Acct: [id number] Name: COLETTE RICHARDSON Rep #:[id number] : 1935 86 From: Jesenia Lopez [...] Dr. Hortensia Unger MD; Dr. Gonzalo Stephens DO ~ Signed [facility] Work Phone: 1(191) 810-193201-19-2023 History and physical note Author Dr. Stephens [facility] June 16, 2022 8:43pm Note Date/Time June 16, 2022 8 :34pm [facility] Medical Records Department [address] [place] [address] H&P Exam - Hospitalist 06/16/222028 MR#: [id number] Acct: [id number] Name: COLETTE RICHARDSON Rep #:[id number] : 1935 86 From: Gonzalo Stephens DO PCP: Dr. Hortensia Unger MD Status:ADM HUGO Location: [place] [address] HPI - General General Date of Admission: 06/16/22 Date of Service: 06/16/22 Chief Complaint: Right upper extremity weakness, slurred speech HPI Narrative COLETTE RICHARDSON, is a 86 F who presents to the emergency room at [facility] from assisted living facility with complaints of [...] her speech is slurred at this time. 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 Atrial fibrillation with RVR (10/01/16) Bilateral breast cancer Depression Essential hypertension Frequent falls History of non-ST elevation myocardial infarction (NSTEMI) (10/01/16) History of pulmonary embolus (PE) Hypercoagulable state senior care current use of anticoagulant Memory loss Nonrheumatic [...] release 24 hr 150 mg PO BREAKFAST LXCEMEURRL21/07/22 [History Last Taken 06/16/22 09:15] alprazolam 0.25 [...] AdvReac Itching Verified 06/16/22 12:15 [From Vicodin] Lkqixip-ZXB-NmL Reductase AdvReac Other Verified 06/16/22 16:35 Inhibitor [Ujkegpi-Izg-Nok Reductase Inhibitor] Surgical History H/O coronary artery [...] % (Auto) 56.3, Lymph % (Auto) 30.6, Kershaw % (Auto) 8.2, Eos % (Auto) 3.9, [...] GFR (MDRD) Non-Af 83, BUN/Creatinine Ratio 16.8, Tgytazg40, Calcium 8.9, Troponin I High Sens 9 [...] team: 55-minute Charges/Coding Visit Charges Inpatient E&M: 81057 Init Hosp L2 06/16/222042 <Electronically signed by Gonzalo Stephens DO> Cosigner Signature (if applicable): CC: Dr. Hortensia Unger MD; Dr. Gonzalo Stephens DO~ Signed [facility] Work Phone: 1(168) 549-573301-19-[address] 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 Atrial fibrillation with RVR (10/01/16) Bilateral breast cancer Depression Essential hypertension Frequent falls History of non-ST elevation myocardial infarction (NSTEMI) (10/01/16) History of pulmonary embolus (PE) 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 Patient placed on cardiac/vascular sonographer. Stroke teamwas activated after my evaluation of [...] % (Auto) 56.3 Lymph % (Auto) 30.6 Kershaw % (Auto) 8.2 Eos % (Auto) 3.9 [...] of Parkinson's disease Disposition Disposition: Acute Care Hospital [facility] What to do if you have Problems For any increased pain, shortness of breath, bleeding, nausea or vomiting, chestpain, or any unexpected problems, contact your Primary Care Provider. Call [facility] ([phone]) or report to the closest Emergency Room. Call 911 if necessary. 06/16/22 1646 <Electronically signed by Jesse Davis DO> Cosigner Signature (if applicable): CC: Dr. 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, 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 Heart failure with preserved ejection fraction chronic Acute hyponatremia acute Acute metabolic encephalopathy acute Hypokalemia acute [facility] Work Phone: 1(539) 533-600011-05-2013 Evaluation note* Diagnosis Onset Date Resolution Status Dyspnea on minimal exertion acute Essential hypertension acute Paroxysmal atrial fibrillation acute 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, 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 Heart failure with preserved ejection fraction chronic Acute hyponatremia acute Acute metabolic encephalopathy acute Frequent falls acute Hypokalemia acute Memory loss acute Poor balance acute [facility] Work Phone: 1(670) 941-397011-05-2013 Evaluation note* Diagnosis Onset Date Resolution Status [...] Restrictive lung disease acu te Hypertension chronic [facility] Work Phone: 1(924) 477-809811-05-2013 Evaluation note* Diagnosis Onset Date Resolution Status [...] resolved Acute metabolic encephalopathy resolved Hypokalemia resolved [facility] Work Phone: Evaluation note* Diagnosis Onset Date Resolution Status Allergic rhinitis acute Atrial fibrillation acute Coronary artery disease acut e Debility acute Depression acute Edema acute Hyperlipidemia acute Insomnia acute Left hip pain acute Left rotator cuff tear arthropathy acute [facility] Work Phone: Evaluation note* Diagnosis Onset Date Resolution Status Hyperlipidemia acute Allergic rhinitis resolved Debility resolved Depression resolved Insomnia resolved Left hip pain resolved Left rotator cuff tear arthropathy resolved Dyspnea on minimal exertion acute Essential hypertension acute Paroxysmal atrial fibrillation acute 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, 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 Heart failure with preserved ejection fraction chronic [facility] Work Phone: Evaluation note* Diagnosis Onset Date Resolution Status Acute hyponatremia resolved Acute metabolic encephalopathy resolved Hypokalemia resolved Atrial fibrillation acute Coronary artery disease acut e Debility acute Depression acute Edema acute Hyperlipidemia acute Insomnia acute Restrictive lung disease acu te Hypertension chronic Acute hyponatremia resolved Acute metabolic encephalopathy resolved Hypokalemia resolved [facility] Work Phone: Evaluation noteNo assessment information available [facility] Work Phone: Evaluation note* Diagnosis Onset Date Resolution Status Acute CVA (cerebrovascular accident) acute History of atrial fibrillation acute History of hypertension acut e History of Parkinson's disease acute [facility] Work Phone: Evaluation note* Diagnosis Onset Date Resolution Status Acute CVA (cerebrovascular accident) acute History of atrial fibrillation acute History of hypertension acut e History of Parkinson's disease acute Right arm weakness acute [facility] Work Phone: Evaluation note* Diagnosis Onset Date Resolution Status History of atrial fibrillation acute History of hypertension acut e History of Parkinson's disease acute Acute CVA (cerebrovascular accident) resolved Right arm weakness resolved [facility] Work Phone: Evaluation note* Diagnosis Onset Date Resolution Status Abnormality of gait and mobility acute History of stroke acute Parkinsonism acute Polyneuropathy acute Dementia chronic [facility] Work Phone: Evaluation note* Diagnosis Parkinsonism, unspecified Parkinsonism type (HCC)- Primary Multifactorial gait disorder Abnormality of gait documented in this encounter [facility]: Reason for referral (narrative)No reason for referral information available[facility] Work Phone: Summary Purpose Family History No [...] Date/ Time Name of Medical Power of Time Cycle Operator pool castillo June 17, 2021 1:59pm Living Will Yes June 21 12:54pm Power of Time Cycle Operator Yes June 21, 2021 12:54pm Advance Directive Response Recorded Date/ Time Living Will Yes June 21 12:54pm Power of Time Cycle Operator Yes June 21, 2021 12:54pm Advance Directive Response Recorded Date/ Time Living Will Yes November 02, 2021 3 :59pm Power of Time Cycle Operator Yes November 02, 2021 3:59pm Advance Directive Response Recorded Date/ Time Name of Medical Power of Time Cycle Operator DAUGHTER, KRISTIN GRIER November 02, 2021 3:59pm Name of Medical Power of Time Cycle Operator Pool castillo November 05, 2021 2:10pm Living Will Yes November 05, 2021 2:10pm Power of Time Cycle Operator Yes November 05 2:10pm Advance Directive Response Recorded Date/ Time Living Will No March 07 3:07pm Power of Time Cycle Operator No March 07, 2022 3:07pm Advance Directive Response Recorded Date/ Time Living Will No March 07 2:07pm Power of Time Cycle Operator No March 07, 2022 2:07pm Advance Directive Response Recorded Date/ Time Name of Medical Power of Time Cycle Operator Pool castillo June 16, 2022 6:12pm Living Will Yes June 16 6:12pm Power of Time Cycle Operator Yes June 16, 2022 6:12pm Advance Directive Response Recorded Date/ Time Name of Medical Power of Time Cycle Operator Pool castillo June 16, 2022 7:12pm Living Will Yes June 16 7:12pm Power of Time Cycle Operator Yes June 16, 2022 7:12pm Advance Directive Response Recorded Date/ Time Living Will Yes June 16 7:12pm Power of Time Cycle Operator Yes June 16, 2022 7:12pm Advance Directive Response Recorded Date/ Time Living Will Yes June 16 6:12pm Power of Time Cycle Operator Yes June 16, 2022 6:12pm Advance Directive Response Recorded Date/ Time Do you have a Healthcare Power of Time Cycle Operator? No October 09, 2024 7:14pm Chief Complaint [...] ENCEPHALOPATHY, HYPONATREMIA HYPONATREMIA, METABOLIC ENCEPHALOPATHY, FREQ FALLS FDC LABWORK Reason for Visit Dyspnea on minimal [...] ENCEPHALOPATHY, HYPONATREMIA HYPONATREMIA, METABOLIC ENCEPHALOPATHY, FREQ FALLS FDC LABWORK FDC LABWORK FDC LAB WORK FDC LAB WORK FDC LABWORK FDC LABWORK FDC LABWORK FDC LAB WORK Reason for Visit Dyspnea on [...] ENCEPHALOPATHY, HYPONATREMIA HYPONATREMIA, METABOLIC ENCEPHALOPATHY, FREQ FALLS FDC LABWORK FDC LABWORK FDC LAB WORK FDC LAB WORK FDC LABWORK FDC LABWORK FDC LABWORK FDC LAB WORK FDC LAB WORK Reason for Visit Acute hyponatremia Acute metabolic encephalopathy Hypokalemia Atrial fibrillation Coronary artery disease Debility Depression Edema Hyperlipidemia Insomnia Restrictive lung disease Hypertension Acute hyponatremia Acute metabolic encephalopathy Hypokalemia Chief Complaint FDC LABWORK FDC LABWORK FDC LAB WORK FDC LAB WORK FDC LABWORK FDC LABWORK FDC LABWORK FDC LAB WORK FDC LAB WORK FDC LAB WORK SOB Chief Complaint FDC LABWORK FDC LABWORK FDC LAB WORK FDC LAB WORK FDC LABWORK FDC LABWORK FDC LABWORK FDC LAB WORK FDC LAB WORK FDC LAB WORK SOB FDC LABWORK Chief Complaint FDC LAB WOR K FDC LAB WORK FDC LABWORK FDC LABWORK FDC LABWORK FDC LAB WORK FDC LAB WORK FDC LAB WORK SOB FDC LABWORK FDC LAB WORK Chief Complaint FDC LABWORK FDC LABWORK FDC LABWORK FDC LAB WORK FDC LAB WORK FDC LAB WORK SOB FDC LABWORK FDC LAB WORK FDC LABWORK Chief Complaint FDC LABWORK FDC LAB WORK FDC LAB WORK FDC LAB WORK SOB FDC LABWORK FDC LAB WORK FDC LAB WORK FDC LABWORK Chief Complaint FDC LAB WOR K SOB FDC LABWORK FDC LAB WORK FDC LAB WORK FDC LABWORK FDC LAB WORK FDC LABWORK Chief Complaint FDC LAB WOR K SOB FDC LABWORK FDC LAB WORK FDC LAB WORK FDC LABWORK FDC LAB WORK FDC LABWORK RIGHT UPPER EXTREMITY WEAKNESS, SLURRED SPEECH Reason for Visit Acute CVA (cerebrova scular accident) History of atrial fibrillation History of hypertension History of Parkinson's disease Chief Complaint FDC LAB WOR K SOB FDC LABWORK FDC LAB WORK FDC LAB WORK FDC LABWORK FDC LAB WORK FDC LABWORK RIGHT UPPER EXTREMITY WEAKNESS, SLURRED SPEECH RIGHT UPPER EXTREMITY WEAKNESS, SLURRED SPEECH Reason for Visit Acute CVA (cerebrova scular accident) History of atrial fibrillation History of hypertension History of Parkinson's disease Right arm weakness Chief Complaint FDC LABWORK FDC LAB WORK FDC LABWORK RIGHT UPPER EXTREMITY WEAKNESS, SLURRED SPEECH RIGHT UPPER EXTREMITY WEAKNESS, SLURRED SPEECH RIGHT UPPER EXTREMITY WEAKNESS, SLURRED SPEECH FDC LABWORK LABWORK FDC LABWORK Reason for Visit History of atrial fi brillation History of hypertension History of Parkinson's disease Acute CVA (cerebrovascular accident) Right arm weakness Chief Complaint FDC LABWORK RIGHT UPPER EXTREMITY WEAKNESS, SLURRED SPEECH RIGHT UPPER EXTREMITY WEAKNESS, SLURRED SPEECH RIGHT UPPER EXTREMITY WEAKNESS, SLURRED SPEECH FDC LABWORK LABWORK FDC LABWORK LABWORK LABWORK Reason for Visit History of atrial fi brillation History of hypertension History of Parkinson's disease Acute CVA (cerebrovascular accident) Right arm weakness Chief Complaint FDC LABWORK RIGHT UPPER EXTREMITY WEAKNESS, SLURRED SPEECH RIGHT UPPER EXTREMITY WEAKNESS, SLURRED SPEECH RIGHT UPPER EXTREMITY WEAKNESS, SLURRED SPEECH FDC LABWORK LABWORK FDC LABWORK LABWORK LABWORK FDC LAB WORK LABWORK Reason for Visit History of atrial fi brillation History of hypertension History of Parkinson's disease Acute CVA (cerebrovascular accident) Right arm weakness Chief Complaint FDC LABWORK RIGHT UPPER EXTREMITY WEAKNESS, SLURRED SPEECH RIGHT UPPER EXTREMITY WEAKNESS, SLURRED SPEECH RIGHT UPPER EXTREMITY WEAKNESS, SLURRED SPEECH FDC LABWORK LABWORK FDC LABWORK LABWORK LABWORK FDC LABWORK FDC LAB WORK LABWORK Reason for Visit History of atrial fi brillation History of hypertension History of Parkinson's disease Acute CVA (cerebrovascular accident) Right arm weakness Chief Complaint RIGHT UPPER EXTREMIT Y WEAKNESS, SLURRED SPEECH RIGHT UPPER EXTREMITY WEAKNESS, SLURRED SPEECH RIGHT UPPER EXTREMITY WEAKNESS, SLURRED SPEECH FDC LABWORK LABWORK FDC LABWORK LABWORK LABWORK FDC LABWORK FDC LAB WORK LABWORK LABWORK Reason for Visit History of atrial fi brillation History of hypertension History of Parkinson's disease Acute CVA (cerebrovascular accident) Right arm weakness Chief Complaint RIGHT UPPER EXTREMIT Y WEAKNESS, SLURRED SPEECH RIGHT UPPER EXTREMITY WEAKNESS, SLURRED SPEECH RIGHT UPPER EXTREMITY WEAKNESS, SLURRED SPEECH FDC LABWORK LABWORK FDC LABWORK LABWORK LABWORK FDC LABWORK FDC LAB WORK FDC LAB WORK LABWORK LABWORK Reason for Visit History of atrial fi brillation History of hypertension History of Parkinson's disease Acute CVA (cerebrovascular accident) Right arm weakness Chief Complaint FDC LABWORK LABWORK LABWORK FDC LABWORK FDC LAB WORK FDC LAB WORK LABWORK LABWORK LABWORK FDC LAB WORK Chief Complaint FDC LABWORK FDC LAB WORK FDC LAB WORK LABWORK LABWORK LABWORK FDC LAB WORK FDC LAB WORK FDC LAB WORK Chief Complaint LABWORK LABWORK FDC LAB WORK FDC LAB WORK FDC LAB WORK FDC LABWORK TROUBLE WALKING, UNSTEADY n/v Reason for Visit Abnormality of gait and mobility History of stroke Parkinsonism Polyneuropathy Dementia Chief Complaint FDC LAB WOR K FDC LAB WORK FDC LAB WORK FDC LABWORK TROUBLE WALKING, UNSTEADY n/v FDC LABWORK Reason for Visit Abnormality of gait and mobility History of stroke Parkinsonism Polyneuropathy Dementia Chief Complaint FDC LAB WOR K FDC LAB WORK FDC LAB WORK FDC LABWORK TROUBLE WALKING, UNSTEADY n/v FDC LABWORK FDC LAB WORK FDC LAB WORK Reason for Visit Abnormality of gait and mobility History of stroke Parkinsonism Polyneuropathy Dementia Chief Complaint FDC LABWORK TROUBLE WALKING, UNSTEADY n/v FDC LABWORK FDC LAB WORK FDC LAB WORK FDC LABWORK FDC LABWORK Reason for Visit Abnormality of gait and mobility History of stroke Parkinsonism Polyneuropathy Dementia Chief Complaint n/v FDC LABWORK FDC LAB WORK FDC LAB WORK FDC LABWORK FDC LABWORK FDC LAB WORK Chief Complaint n/v FDC LABWORK FDC LAB WORK FDC LAB WORK FDC LABWORK FDC LABWORK FDC LAB WORK FDC LABWORK Chief Complaint n/v FDC LABWORK FDC LAB WORK FDC LAB WORK FDC LABWORK FDC LABWORK FDC LAB WORK FDC LABWORK FDC LAB WORK Chief Complaint FDC LABWORK FDC LABWORK FDC LAB WORK FDC LABWORK FDC LAB WORK FDC LAB WORK FDC LAB WORK Chief Complaint FDC LABWORK FDC LAB WORK FDC LABWORK FDC LAB WORK FDC LAB WORK FDC LAB WORK LABWORK Chief Complaint FDC LABWORK FDC LAB WORK FDC LABWORK FDC LAB WORK FDC LAB WORK FDC LAB WORK LABWORK FDC LAB WORK Chief Complaint FDC LAB WOR K FDC LABWORK FDC LAB WORK FDC LAB WORK FDC LAB WORK LABWORK FDC LAB WORK FDC LAB WORK Chief Complaint FDC LAB WOR K FDC LABWORK FDC LAB WORK FDC LAB WORK FDC LAB WORK LABWORK FDC LAB WORK FDC LAB WORK LABWORK Chief Complaint FDC LABWORK FDC LAB WORK FDC LAB WORK FDC LAB WORK LABWORK FDC LAB WORK FDC LAB WORK LABWORK FDC LAB WORK Chief Complaint Admit Date FDC LAB WORK April 04, 2024 5:00am LABWORK June 16, 2024 1 1:03am LABWORK June 17, 2024 5 :00am FDC LAB WORK July 01, 2024 5:00am FDC LAB WORK July 02, 2024 5:00am LABWORK July 03, 2024 5 :00am LABWORK July 05, 2024 5 :00am FDC LAB WORK July 08 5:00am LABWORK July 12, 2024 5:00am FDC LAB WORK July 17 5:00am LABWORK 2024 5:00am FDC LAB WORK July 25 4:00am Chief Complaint Admit Date LABWORK June 16, 2024 1 1:03am LABWORK June 17, 2024 5 :00am FDC LAB WORK July 01, 2024 5:00am FDC LAB WORK July 02, 2024 5:00am LABWORK July 03, 2024 5 :00am LABWORK July 04, 2024 5 :00am LABWORK July 05, 2024 5 :00am FDC LAB WORK July 08 5:00am FDC LAB WORK July 09 5:00am LABWORK July 12, 2024 5:00am FDC LAB WORK July 15 5:00am LABWORK July 16, 2024 5:00am FDC LAB WORK July 17 5:00am LABWORK July 18, 2024 5:00am LABWORK 2024 5:00am FDC LAB WORK July 24 5:00am FDC LAB WORK July 25 4:00am LABWORK July 29, 2024 5:00 am FDC LAB WORK August 12, 2024 4 :00am Chief Complaint Admit Date LABWORK June 16, 2024 1 1:03am LABWORK June 17, 2024 5 :00am FDC LAB WORK July 01, 2024 5:00am FDC LAB WORK July 02, 2024 5:00am LABWORK July 03, 2024 5 :00am LABWORK July 04, 2024 5 :00am LABWORK July 05, 2024 5 :00am FDC LAB WORK July 08 5:00am FDC LAB WORK July 09 5:00am LABWORK July 12, 2024 5:00am FDC LAB WORK July 15 5:00am LABWORK July 16, 2024 5:00am FDC LAB WORK July 17 5:00am LABWORK July 18, 2024 5:00am LABWORK 2024 5:00am FDC LAB WORK July 24 5:00am FDC LAB WORK July 25 4:00am LABWORK July 29, 2024 5:00 am FDC LAB WORK August 12, 2024 4 :00am FDC LAB WORK September 09, 2024 4 :00am Chief Complaint Admit Date LABWORK June 16, 2024 1 1:03am LABWORK June 17, 2024 5 :00am FDC LAB WORK July 01, 2024 5:00am FDC LAB WORK July 02, 2024 5:00am LABWORK July 03, 2024 5 :00am LABWORK July 04, 2024 5 :00am LABWORK July 05, 2024 5 :00am FDC LAB WORK July 08 5:00am FDC LAB WORK July 09 5:00am LABWORK July 12, 2024 5:00am FDC LAB WORK July 15 5:00am LABWORK July 16, 2024 5:00am FDC LAB WORK July 17 5:00am LABWORK July 18, 2024 5:00am LABWORK 2024 5:00am FDC LAB WORK July 24 5:00am FDC LAB WORK July 25 4:00am LABWORK July 29, 2024 5:00 am FDC LAB WORK August 12, 2024 4 :00am FDC LAB WORK September 09, 2024 4 :00am fall, head injury October 09, 2024 7:00p m Chief Complaint Admit Date FDC LAB WORK July 01, 2024 5:00am FDC LAB WORK July 02, 2024 5:00am LABWORK July 03, 2024 5 :00am LABWORK July 04, 2024 5 :00am LABWORK July 05, 2024 5 :00am FDC LAB WORK July 08 5:00am FDC LAB WORK July 09 5:00am LABWORK July 12, 2024 5:00am FDC LAB WORK July 15 5:00am LABWORK July 16, 2024 5:00am FDC LAB WORK July 17 5:00am LABWORK July 18, 2024 5:00am LABWORK 2024 5:00am FDC LAB WORK July 24 5:00am FDC LAB WORK July 25 4:00am LABWORK July 29, 2024 5:00 am FDC LAB WORK August 12, 2024 4 :00am FDC LAB WORK September 09, 2024 4 :00am fall, head injury October 09, 2024 7:00p m FDC LAB WORK October 22, 2024 4:0 0am Additional Source Comments INFORMATION SOURCE (unrecogn ized section and content) DATE CREATED AUTHOR 11/16/2017 [facility] DATE CREATED AUTHOR AUTHOR'S ORGANIZ ATION 04/23/2019 [facility] ([place]) DATE CREATED AUTHOR AUTHOR'S ORGANIZ ATION 12/22/2024 [facility] DATE CREATED AUTHOR AUTHOR'S ORGANIZ ATION 01/03/2025 [facility] Goals (unrecognized section and content) Goals may [...] Simon MD Primary Care Provider Active Hortensia THOMAS MD Attending Provider Active Team Status: Inactive [...] MD Primary Care Provider Active Dr. Matt Cyo MD Emergency Provider Active Team Status: Inactive [...] Active Start: July 29, 2024 Dr. Melo THOMAS MD [...] 2024 End: August 12, 2024 Dr. 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 Specialty Start Date End Date [facility] [address] [place], [place] [id number] Specialty Blade Operator Physical Therapy 07/08/13 Fredo Kathleen MD [address] [place], [place] [id number] Specialty Blade Operator Cardiology 07/08/13 Power Avina MD [address] [place], [place] [id number] Specialty Blade Operator Radiation Oncology 07/08/13 Source Comments (unrecognize d section and content) In the event this informatio n is protected by the Federal Confidentiality of Alcohol and Drug Abuse Patient Records regulations: The Federal rules restrict any use of the information to criminally investigate or prosecute any alcohol or drug abuse patient.[facility] Reason for Visit (unrecogniz ed section and content) Reason Comments New Patient FOR RECORDS PERTAINING TO PATIENTS WHO ARE [...] BE BASED ON THE PRIMARY CLINICAL RECORDS. [facility] [employer] [facility]. provides no warranty or guarantee of the accuracy or completeness of information in this document.
--- OUTSIDE RECORDS SUMMARY | 2025-02-07 03:59 | XMS RPT_ITS | CCD ---
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 Joe Rosario Emergency [...] Other Provider Jessica, Dr. Ba Attending Provider Jsesica, Dr. Ba Other Provider Dr. Hortensia Unger S Primary Care Provider Dr. Jesse Davsi Emergency Provider Dr. Gonzalo Stephens Admit Provider [...] MD, Dr. Alejo Primary Care Provider Unawild Shrestha [...] Unavailable Shrestha OLS, Melo Primary Care Unavailable eSrge Gómez Attending Unavailable Shrestha OLS, Melo Attending [...] sources) Acetaminophen Drug Allergy 06-17-19 22 Itching [facility] [place] [facility] (20 sources) Codeine; Translations: [CODEINE] Drug Allergy 01-25-20 05 Nausea [facility] [place] [facility] (20 sources) ezetimibe; Translations: [EZETIMIBE] Drug Allergy 06-28-19 07 Intolerance [facility] [place] [facility] (20 sources) HYDROcodone; Translations: [hydrocodone bitartrate] Drug Allergy 06-17-19 Itching [facility] [place] [facility] (20 sources) Penicillins; Translations: [PENICILLINS] Allergy to substance 01-25-20 05 Anaphylaxis [facility] [place] [facility] (20 sources) Wnlvwtr-Bdq-Gpa Reductase Inhibitor; Translations: [Kkbsbgy-Brm-Hll Reductase Inhibitor] Propensity to adverse reactions 06-17-19 22 Other [facility] [place] [facility] Comment on above: TOLERATES LIPITOR (4 sources) Memantine; Translations: [MEMANTINE] Drug Allergy 10-10-19 25 Intolerance [facility] [place] [facility] (2 sources) Acetaminophen / HYDROcodone; Translations: [HYDROCODONE-ACET AMINOPHEN] Drug Allergy 07-15-19 12 Itching [facility] (2 sources) donepezil; Translations: [DONEPEZIL] Drug Allergy 12-18-19 25 Intolerance [facility] (2 sources) HMG-CoA reductase inhibitor; Translations: [VYLSEAT-VDO-UGD REDUCTASE INHIBITORS] Drug Intolerance 11-23-19 06 Other: See Comments [facility] (2 sources) Lovastatin; Translations: [LOVASTATIN] Drug Allergy 01-09-20 15 Myalgia [facility] Work Phone: (1 source) Acetaminophen Drug Allergy 03-24-20 [facility] [place] [facility] Repository (1 source) Codeine Drug Allergy 10-10-19 [facility] [place] [facility] Repository (1 source) ezetimibe Drug Allergy 10-10-19 [facility] [place] [facility] Repository (1 source) Memantine Drug Allergy 10-10-19 [facility] Repository Medications Current Medications Medication [...] Active docusate sodium 50 mg / sennosides, chcf 8.6 mg oral tablet (1 source) take [...] neuropathy, without long-term current use of insulin ([facility]) Glucose Meter of Choice - Kit - [...] 06-23-2021 End: 09-23-2021 Fluticasone Propionate 50 mcg/actuation [place],Suspension Discontinued 1 NMA NASAL TWICE A DAY [...] 8:44pm Start: 11-25-2010 take 2 puff(s) by [facility] twice daily fluticasone (FLOVENT HFA) 110 [...] source) Anticholinergic Start: 03-16-2015 End: 12-20-2024 Ipratropium Thurston (ATROVENT) 0.03 % nasal spray Indications: Other [...] Coronary arteriosclerosis; Translations: [Atherosclerotic heart disease of lumbee coronary artery without angina pectoris] Onset: 5 [...] sources) Long-term current use of anticoagulant; Translations: [custodial (current) use of anticoagulants] 09-23-2021 Episodic Other aftercare (2 sources) custodial (current) use of anticoagulants; Translations: [vermin exterminator (current) use of anticoagulants] Onset: Episodic Other [...] 09-24-2024 Episodic Other aftercare (2 sources) Other vermin exterminator (current) drug therapy; Translations: [Other vermin exterminator (current) drug therapy] Onset: 4 Episodic Other [...] Test Name Value Interpretation Reference Range Facility [facility] 12-17-2024 CNOV Office Visit (NRMDN) COLETTE RICHARDSON ([id number]) 1935 F Date Time Provider Department 12/17/24 11:00 AM [facility] During your visit today, we recorded the following information about you: Weight 64.8 kg Diana Simon MD 12/20/2024 5:59 PM Signed [facility] PATIENT EVALUATION Recording using [employer] software for draft documentation of the visit was discussed with the patient/authorized account representative; all questions welcomed and answered. Patient/authorized account representative agreed to proceed Referring Provider: Melo Shrestha [address] [place] [id number] Dear Melo Shrestha: Thank you for referring [...] three years ago by a neurologist in [place]. At the time of diagnosis, she was [...] physical therapy and an exercise class called [employer] at her [facility], which she enjoys. She does not [...] (none) Urinar (more content not included)... Normal [facility] International normalized rat io (INR) calculationOrdered By: Melo Shrestha on 10-22-2024 INR Coag (Bld) [Relative time] 2.3 {INR} [facility] [place] [facility] Prothrombin timeOrdered By: Melo Shrestha on 10-22-2024 PT Coag (PPP) [Time] 26.0 s High 11.7-14.9 [facility] Absolute lymphocyte countOrd ered By: Se Schmidt on 10-09-2024 Lymphocytes Auto (Unsp spec) [#/Vol] 1.87 10*3/uL 0.83-4.51 [facility] [place] [facility] Absolute neutrophil countOrd ered By: Se Schmidt on 10-09-2024 Neutrophils (Bld) [#/Vol] 2.9 10*3/uL 2.0-7.7 [facility] [place] [facility] Activated partial thrombopla stin time (aPTT) in platelet poor plasma by coagulation aOrdered By: Se Schmidt on 10-09-2024 aPTT Coag (PPP) [Time] 32.4 s 24.1-36.2 [facility] Anion gap in Serum or Plasma Ordered By: Se Schmidt on 10-09-2024 Anion gap [Moles/Vol] 7 mmol/L 5-15 [facility] Automated lymphocyte count a s percentage of total leukocytesOrdered By: Se Schmidt on 10-09-2024 Lymphocytes/100 WBC Auto (Unsp spec) 33.8 % [facility] [place] [facility] BUN/creatinine ratioOrdered By: Se Schmidt on 10-09-2024 Urea nitrogen/Creatinine [Mass ratio] 20.6 mg/mg High 03-17 [facility] [place] [facility] Basic Metabolic Profile (BMP )on 10-09-2024 BUN/CRE 20.6 RATIO High 03-17 [facility] [place] [facility] Comment on above: Performed By: #### L 500.2500, L100.0100, L300.4310, L300.3900 #### [facility] [place] [facility] Laboratory [address] [place], [address] Calcium [Mass/Vol] 8.8 mg/dL Normal 7.6-11.0 [facility] Comment on above: Performed By: #### L 500.2500, L100.0100, L300.4310, L300.3900 #### [facility] [place] [facility] [address] [place], [address] Chloride [Moles/Vol] 99 mmol/L Normal 98-108 [facility] Comment on above: Performed By: #### L 500.2500, L100.0100, L300.4310, L300.3900 #### [facility] [place] [facility] [address] [place], [address] CO2 [Moles/Vol] 28.1 mmol/L Normal 21.0-32.0 [facility] [place] [facility] Comment on above: Performed By: #### L 500.2500, L100.0100, L300.4310, L300.3900 #### [facility] [place] [facility] [address] [place], [address] Creatinine [Mass/Vol] 0.66 mg/dL Low 0.70-1.20 [facility] Comment on above: Performed By: #### L 500.2500, L100.0100, L300.4310, L300.3900 #### [facility] [place] [facility] [address] [place], [address] ECRCL 43.20 ml/min Low 50-250 [facility] [place] [facility] Comment on above: Performed By: #### L 500.2500, L100.0100, L300.4310, L300.3900 #### [facility] [place] [facility] [address] [place], [address] GAP 7 Normal 5-15 [facility] [place] [facility] Comment on above: Performed By: #### L 500.2500, L100.0100, L300.4310, L300.3900 #### [facility] [place] [facility] [address] [place], [address] GFR/1.73 sq M.predicted among non-blacks MDRD (S/P/Bld) [Vol rate/Area] 85 mL/min/{1.73_m2} Normal >60 [facility] [place] [facility] Comment on above: Result Comment: mL/m in/1.73m2 CKD-EPI Creatinine Equation (2020) Performed By: #### L 500.2500, L100.0100, L300.4310, L300.3900 #### [facility] [place] [facility] [address] [place], [address] Glucose [Mass/Vol] 131 mg/dL High 70-99 [facility] Comment on above: Performed By: #### L 500.2500, L100.0100, L300.4310, L300.3900 #### [facility] [place] [facility] [address] [place], [address] Potassium [Moles/Vol] 4.3 mmol/L Normal 3.3-5.1 [place] [facility] Comment on above: Performed By: #### L 500.2500, L100.0100, L300.4310, L300.3900 #### [facility] [place] [facility] [address] [place], [address] Sodium [Moles/Vol] 134 mmol/L Normal 133-145 [facility] Comment on above: Performed By: #### L 500.2500, L100.0100, L300.4310, L300.3900 #### [facility] [place] [facility] [address] [place], [address] Urea nitrogen [Mass/Vol] 14 mg/dL Normal 4-19 [facility] [place] [facility] Comment on above: Performed By: #### L 500.2500, L100.0100, L300.4310, L300.3900 #### [facility] [place] [facility] [address] [place], [address] Basophil percentageOrdered B y: Se Schmidt on 10-09-2024 Basophils/100 WBC (Bld) 0.7 % 0-1 [facility] [place] [facility] Brain/Head without Contrasto n 10-09-2024 Brain/Head without Contrast [facility] Imaging Services [address] [place] [address] Brain/Head without Contrast MR#: [id number] Acct: [id number] Name: COLETTE RICHARDSON Rep #: [id number] : 1935 F 89 From: Gonzalo Schmidt MD PCP: Dr. Melo Shrestha MD Status: [facility] Study: Brain/Head without Contrast Date of Exam: 09/26 09/20 Exam# [id number] Ordering Dr: Se Schmidt DO EXAM: CT [...] with MRI is recommended. Reading Location: [facility] CC: Dr. Melo Shrestha MD; Dr. Se Schmidt DO Certified Marine Mechanic: Signed Normal [facility] [place] [facility] CBC W/Diff, Automatedon 09-26 Absolute Lymph 1.87 X10 3/uL Normal 0.83-4.51 [facility] [place] [facility] Comment on above: Performed By: #### L 500.2500, L100.0100, L300.4310, L300.3900 #### [facility] [place] [facility] [address] [place], [address] Absolute Neut 2.9 X10 3/uL Normal 2.0-7.7 [facility] [place] [facility] Comment on above: Performed By: #### L 500.2500, L100.0100, L300.4310, L300.3900 #### [facility] [place] [facility] [address] [place], [address] Basophils/100 WBC (Bld) 0.7 % Normal 0-1 [facility] [place] [facility] Comment on above: Performed By: #### L 500.2500, L100.0100, L300.4310, L300.3900 #### [facility] [place] [facility] [address] [place], [address] Eosinophils/100 WBC (Bld) 4.2 % Normal 0-5 [facility] [place] [facility] Comment on above: Performed By: #### L 500.2500, L100.0100, L300.4310, L300.3900 #### [facility] [place] [facility] [address] [place], [address] Erythrocyte distribution width (RBC) [Ratio] 12.3 % Normal 11.6-14.6 [facility] [place] [facility] Comment on above: Performed By: #### L 500.2500, L100.0100, L300.4310, L300.3900 #### [facility] [place] [facility] [address] [place], [address] Hematocrit (Bld) [Volume fraction] 38.7 % Normal 37-47 [facility] [place] [facility] Comment on above: Performed By: #### L 500.2500, L100.0100, L300.4310, L300.3900 #### [facility] [place] [facility] [address] [place], [address] Hemoglobin (Bld) [Mass/Vol] 13.1 g/dL Normal 12.0-15.0 [facility] [place] [facility] Comment on above: Performed By: #### L 500.2500, L100.0100, L300.4310, L300.3900 #### [facility] [place] [facility] [address] [place], [address] IG% 0.200 Normal 0.0-0.9 [facility] [place] [facility] Comment on above: Result Comment: IG% - Immature Granulocytes (promyelocytes, myelocytes and metamyelocytes) > 1% indicates that a LEFT SHIFT is Present. Performed By: #### L 500.2500, L100.0100, L300.4310, L300.3900 #### [facility] [place] [facility] [address] [place], [address] Lymphocytes/100 WBC (Bld) 33.8 % Normal 19-41 [facility] [place] [facility] Comment on above: Performed By: #### L 500.2500, L100.0100, L300.4310, L300.3900 #### [facility] [place] [facility] [address] [place], [address] MCH (RBC) [Entitic mass] 31.3 pg Normal 27.0-32.0 [facility] [place] [facility] Comment on above: Performed By: #### L 500.2500, L100.0100, L300.4310, L300.3900 #### [facility] [place] [facility] [address] [place], [address] MCHC (RBC) [Mass/Vol] 33.9 g/dL Normal 32-36 [facility] Comment on above: Performed By: #### L 500.2500, L100.0100, L300.4310, L300.3900 #### [facility] [place] [facility] [address] [place], [address] MCV (RBC) [Entitic vol] 92.6 fL Normal 81-99 [facility] Comment on above: Performed By: #### L 500.2500, L100.0100, L300.4310, L300.3900 #### [facility] [place] [facility] [address] [place], [address] Monocytes/100 WBC (Bld) 8.5 % Normal 0-10 [facility] Comment on above: Performed By: #### L 500.2500, L100.0100, L300.4310, L300.3900 #### [facility] [place] [facility] [address] [place], [address] Neutrophils/100 WBC (Bld) 52.6 % Normal 47-70 [facility] [place] [facility] Comment on above: Performed By: #### L 500.2500, L100.0100, L300.4310, L300.3900 #### [facility] [place] [facility] [address] [place], [address] Nucleated RBC (Bld) [#/Vol] 0 10*3/uL Normal 0-5 [facility] [place] [facility] Comment on above: Performed By: #### L 500.2500, L100.0100, L300.4310, L300.3900 #### [facility] [place] [facility] [address] [place], [address] Platelet mean volume (Bld) [Entitic vol] 10.3 fL Normal 6.2-12.0 [facility] [place] [facility] Comment on above: Performed By: #### L 500.2500, L100.0100, L300.4310, L300.3900 #### [facility] [place] [facility] [address] [place], [address] Platelets (Bld) [#/Vol] 196 10*3/uL Normal 150-450 [facility] [place] [facility] Comment on above: Performed By: #### L 500.2500, L100.0100, L300.4310, L300.3900 #### [facility] [place] [facility] [address] [place], [address] RBC (Bld) [#/Vol] 4.18 10*6/uL Low 4.2-5.4 [facility] Comment on above: Performed By: #### L 500.2500, L100.0100, L300.4310, L300.3900 #### [facility] [place] [facility] [address] [place], [address] RDW SD 42.1 fl Normal 35.1-43.9 [facility] [place] [facility] Comment on above: Performed By: #### L 500.2500, L100.0100, L300.4310, L300.3900 #### [facility] [place] [facility] [address] [place], [address] WBC (Bld) [#/Vol] 5.5 10*3/uL Normal 4.4-11.0 [facility] Comment on above: Performed By: #### L 500.2500, L100.0100, L300.4310, L300.3900 #### [facility] [place] [facility] [address] [place], [address] Carbon dioxide, total [Moles /volume] in Central venous bloodOrdered By: Se Schmidt on 10-09-2024 CO2 [Moles/Vol] 28.1 mmol/L 21.0-32.0 [facility] [place] [facility] Chloride assayOrdered By: Cedric Schmidt on 10-09-2024 Chloride [Moles/Vol] 99 mmol/L 98-108 [facility] Emergency Department Summary on 10-09-2024 Emergency Department Summary [facility] Medical Records Department [address] [place] [address] Emergency Department Summary 10/09/24 MR#: [id number] Acct: [id number] Name: COLETTE RICHARDSON Rep #: [id number] : 1935 89 From: Se Lu PCP: Dr. Melo Shrestha MD Status:DEP ER Location: ED HPI HPI - Fall History of Present Illness Chief Complaint: Head Injury Informant: patient and family Narrative Narrative: Brought from [place] assisted living by EMS daughter present for [...] forehead and mild discomfort to left wrist. [facility] Medical History History of Parkinson's disease Memory loss Nonrheumatic aortic (valve) stenosis Poor balance Frequent falls custodial current use of anticoagulant Rheumatoid arthritis Parkinsonian syndrome History of pulmonary embolus (PE) Postoperative atrial fibrillation (04/04/13) Recurrent deep vein thrombosis (DVT) Hypercoagulable state History of non-ST elevation myocardial infarction (NSTEMI) (10/01/16) Atherosclerotic heart disease of lumbee coronary artery without angina pectoris Paroxysmal atrial [...] (From AdvReac Itching Verified 10/09/24 19:02 Vicodin) Hdaodmr-RRF-FvV Reductase AdvReac Other Verified 10/09/24 19:02 Inhibitor (Qvtshxq-Ucc-Tfk Reductase Inhibitor) Surgical History History of coronary [...] dysuria, hematur (more content not included)... Normal [facility] [place] [facility] Eosinophil percentageOrdered By: Se Schmidt on 10-09-2024 Eosinophils/100 WBC (Bld) 4.2 % 0-5 [facility] [place] [facility] Erythrocyte distribution wid th ratioOrdered By: Se Schmidt on 10-09-2024 Erythrocyte distribution width (RBC) [Ratio] 12.3 % 11.6-14.6 [facility] [place] [facility] Erythrocyte distribution wid th standard deviationOrdered By: Se Schmidt on 10-09-2024 Erythrocyte distribution width (RBC) [Ratio] 42.1 fl 35.1-43.9 [facility] [place] [facility] Glomerular filtration rate ( GFR) estimation/1.73 sq m using serum, plasma, or whole bOrdered By: Se Schmidt on 10-09-2024 GFR/1.73 sq M.predicted among non-blacks MDRD (S/P/Bld) [Vol rate/Area] 85 mL/min/{1.73_m2} >60 [facility] [place] [facility] Comment on above: mL/min/1.73m2 CKD-EP I Creatinine Equation (2020) Hematocrit Auto (Bld) [Volum e fraction]Ordered By: Se Schmidt on 10-09-2024 Hematocrit (Bld) [Volume fraction] 38.7 % 37-47 [facility] [place] [facility] Hemoglobin measurementOrdere d By: Se Schmidt on 10-09-2024 Hemoglobin (Bld) [Mass/Vol] 13.1 g/dL 12.0-15.0 [facility] [place] [facility] Immature granulocytes/100 WB C Auto (Bld)Ordered By: Se Schmidt on 10-09-2024 Immature granulocytes/100 WBC (Bld) 0.200 % 0.0-0.9 [facility] [place] [facility] Comment on above: IG% - Immature Granu locytes (promyelocytes, myelocytes and metamyelocytes) > 1% indicates that a LEFT SHIFT is Present. International normalized rat io (INR) calculationOrdered By: Se Schmidt on 10-09-2024 INR Coag (Bld) [Relative time] 2.4 {INR} [facility] [place] [facility] MCV (mean corpuscular volume ) determinationOrdered By: Se Schmidt on 10-09-2024 MCV (RBC) [Entitic vol] 92.6 fL 81-99 [facility] [place] [facility] Mean corpuscular hemoglobin (MCH) determinationOrdered By: Se Schmidt on 10-09-2024 MCH (RBC) [Entitic mass] 31.3 pg 27.0-32.0 [facility] [place] [facility] Mean corpuscular hemoglobin concentration (MCHC) determinationOrdered By: Se Schmidt on 10-09-2024 MCHC (RBC) [Mass/Vol] 33.9 g/dL 32-36 [facility] Mean platelet volume determi nationOrdered By: Se Schmidt on 10-09-2024 Platelet mean volume (Bld) [Entitic vol] 10.3 fL 6.2-12.0 [facility] [place] [facility] Monocyte percentageOrdered B y: Se Schmidt on 10-09-2024 Monocytes/100 WBC (Bld) 8.5 % 0-10 [facility] [place] [facility] Neutrophil percentageOrdered By: Se Schmidt on 10-09-2024 Neutrophils/100 WBC (Bld) 52.6 % 47-70 [facility] [place] [facility] Nucleated red blood cell per centageOrdered By: Se Schmidt on 10-09-2024 Nucleated RBC/100 WBC (Bld) [Ratio] 0 % 0-5 [facility] [place] [facility] Partial Thromboplast Timeon 10-09-2024 aPTT Coag (Bld) [Time] 32.4 s Normal 24.1-36.2 [facility] Comment on above: Performed By: #### L 500.2500, L100.0100, L300.4310, L300.3900 #### [facility] [place] [facility] Laboratory [address] [place], [address] Platelet countOrdered By: Cedric Schmidt on 10-09-2024 Platelets (Bld) [#/Vol] 196 10*3/uL 150-450 [facility] [place] [facility] Potassium measurement (mass/ volume)Ordered By: Se Schmidt on 10-09-2024 Potassium (Unsp spec) [Mass/Vol] 4.3 mmol/L 3.3-5.1 [facility] [place] [facility] Prothrombin Time w/INRon INR Coag (PPP) [Relative time] 2.4 {INR} Normal [facility] [place] [facility] Comment on above: Performed By: #### L 500.2500, L100.0100, L300.4310, L300.3900 #### [facility] [place] [facility] [address] [place], [address] PT Coag (PPP) [Time] 26.6 s High 11.7-14.9 [facility] Comment on above: Performed By: #### L 500.2500, L100.0100, L300.4310, L300.3900 #### [facility] [place] [facility] [address] [place], [address] Prothrombin timeOrdered By: Se Schmidt on 10-09-2024 PT Coag (PPP) [Time] 26.6 s High 11.7-14.9 [facility] RBC Auto (Bld) [#/Vol]Ordere d By: Se Schmidt on 10-09-2024 RBC (Bld) [#/Vol] 4.18 10*6/uL Low 4.2-5.4 [facility] Serum creatinine measurement (mass/volume)Ordered By: Se Schmidt on 10-09-2024 Creatinine [Mass/Vol] 0.66 mg/dL Low 0.70-1.20 [facility] Serum glucose measurement (m ass/volume)Ordered By: Se Schmidt on 10-09-2024 Glucose [Mass/Vol] 131 mg/dL High 70-99 [facility] Serum or plasma calcium josué urement (mass/volume)Ordered By: Se Schmidt on 10-09-2024 Calcium [Mass/Vol] 8.8 mg/dL 7.6-11.0 [facility] Serum or plasma urea nitroge n measurement (mass/volume)Ordered By: Se Schmidt on 10-09-2024 Urea nitrogen [Mass/Vol] 14 mg/dL 4-19 [facility] [place] [facility] Sodium levelOrdered By: Se Schmidt on 10-09-2024 Sodium [Moles/Vol] 134 mmol/L 133-145 [facility] Spine Cervical without Contr ason 10-09-2024 Spine Cervical without Contras [facility] Imaging Services [address] [place] [id number] Spine Cervical without Contras MR#: [id number] Acct: [id number] Name: COLETTE RICHARDSON Rep #: [id number] : 1935 F 89 From: Gonzalo Schmidt MD PCP: Dr. Melo Shrestha MD Status: REG ER Study: Spine Cervical without Contras Date of Exam: 0 10/09/24 Exam# [id number] Ordering Dr: Se Schmidt DO EXAM: CT [...] cervical spine as described. Reading Location: [facility] CC: Dr. Melo Shrestha MD; Dr. Se Schmidt DO Certified Marine Mechanic: Signed Normal [facility] [place] [facility] White blood cell (WBC) count Ordered By: Se Schmidt on 10-09-2024 WBC (Bld) [#/Vol] 5.5 10*3/uL 4.4-11.0 [facility] International normalized rat io (INR) calculationOrdered By: Melo Shrestha on 09-09-2024 INR Coag (Bld) [Relative time] 2.5 {INR} [facility] [place] [facility] Prothrombin timeOrdered By: Melo Shrestha on 09-09-2024 PT Coag (PPP) [Time] 27.6 s High 11.7-14.9 [facility] normalized rat io (INR) calculationOrdered By: Melo Shrestha on 08-12-2024 INR Coag (Bld) [Relative time] 2.5 {INR} [facility] [place] [facility] Prothrombin timeOrdered By: Melo Shrestha on 08-12-2024 PT Coag (PPP) [Time] 27.8 s High 11.7-14.9 [facility] normalized rat io (INR) calculationOrdered By: Melo Shrestha on 07-29-2024 INR Coag (Bld) [Relative time] 2.8 {INR} [facility] [place] [facility] Prothrombin timeOrdered By: Melo Shrestha on 07-29-2024 PT Coag (PPP) [Time] 30.2 s High 11.7-14.9 [facility] INR Coag (BldC) [Relative ti me]Ordered By: Melo Shrestha on 07-25-2024 INR Coag (Bld) [Relative time] 2.2 {INR} [facility] Comment on above: Critical Value > 4.0 International normalized rat io (INR) measurement by fingerstickOrdered By: Melo Shrestha on 07-25-2024 INR Coag (BldC) [Relative time] 2.2 [facility] Comment on above: Critical Value > 4.0 PT Coag (Bld) [Time]Ordered By: Melo Shrestha on 07-25-2024 Bedside Prothrombin Time 24.3 SEC High 11.7-14.9 [facility] Whole blood prothrombin time Ordered By: Melo Shrestha on 07-25-2024 PT Coag (Bld) [Time] 24.3 s High 11.7-14.9 [facility] INR Coag (BldC) [Relative ti me]Ordered By: Melo Shrestha on 07-24-2024 INR Coag (Bld) [Relative time] 2.1 {INR} [facility] Comment on above: Critical Value > 4.0 International normalized rat io (INR) measurement by fingerstickOrdered By: Melo Shrestha on 07-24-2024 INR Coag (BldC) [Relative time] 2.1 [facility] Comment on above: Critical Value > 4.0 PT Coag (Bld) [Time]Ordered By: Melo Shrestha on 07-24-2024 Bedside Prothrombin Time 23.3 SEC High 11.7-14.9 [facility] Whole blood prothrombin time Ordered By: Melo Shrestha on 07-24-2024 PT Coag (Bld) [Time] 23.3 s High 11.7-14.9 [facility] International normalized rat io (INR) calculationOrdered By: Melo Shrestha on 2024 INR Coag (Bld) [Relative time] 1.9 {INR} [facility] Prothrombin timeOrdered By: Melo Shrestha on 2024 PT Coag (PPP) [Time] 22.5 s High 11.7-14.9 [facility] International normalized rat io (INR) calculationOrdered By: Melo Shrestha on 07-18-2024 INR Coag (Bld) [Relative time] 2.2 {INR} [facility] Prothrombin timeOrdered By: Melo Shrestha on 07-18-2024 PT Coag (PPP) [Time] 25.3 s High 11.7-14.9 [facility] INR Coag (BldC) [Relative ti me]Ordered By: Melo Shrestha on 07-17-2024 INR Coag (Bld) [Relative time] 1.6 {INR} [facility] Comment on above: Critical Value > 4.0 International normalized rat io (INR) measurement by fingerstickOrdered By: Melo Shrestha on 07-17-2024 INR Coag (BldC) [Relative time] 1.6 [facility] Comment on above: Critical Value > 4.0 PT Coag (Bld) [Time]Ordered By: Melo Shrestha on 07-17-2024 Bedside Prothrombin Time 18.3 SEC High 11.7-14.9 [facility] Whole blood prothrombin time Ordered By: Melo Shrestha on 07-17-2024 PT Coag (Bld) [Time] 18.3 s High 11.7-14.9 [facility] International normalized rat io (INR) calculationOrdered By: Melo Shrestha on 07-16-2024 INR Coag (Bld) [Relative time] 1.9 {INR} [facility] Prothrombin timeOrdered By: Melo Shrestha on 07-16-2024 PT Coag (PPP) [Time] 22.3 s High 11.7-14.9 [facility] International normalized rat io (INR) calculationOrdered By: Melo Shrestha on 07-15-2024 INR Coag (Bld) [Relative time] 1.8 {INR} [facility] Prothrombin timeOrdered By: Melo Shrestha on 07-15-2024 PT Coag (PPP) [Time] 21.5 s High 11.7-14.9 [facility] INR Coag (BldC) [Relative ti me]Ordered By: Melo Shrestha on 07-12-2024 INR Coag (Bld) [Relative time] 1.7 {INR} [facility] Comment on above: Critical Value > 4.0 International normalized rat io (INR) measurement by fingerstickOrdered By: Melo Shrestha on 07-12-2024 INR Coag (BldC) [Relative time] 1.7 [facility] Comment on above: Critical Value > 4.0 PT Coag (Bld) [Time]Ordered By: Melo Shrestha on 07-12-2024 Bedside Prothrombin Time 18.8 SEC High 11.7-14.9 [facility] Whole blood prothrombin time Ordered By: Melo Shrestha on 07-12-2024 PT Coag (Bld) [Time] 18.8 s High 11.7-14.9 [facility] International normalized rat io (INR) calculationOrdered By: Melo Shrestha on 07-09-2024 INR Coag (Bld) [Relative time] 2.1 {INR} [facility] Prothrombin timeOrdered By: Melo Shrestha on 07-09-2024 PT Coag (PPP) [Time] 23.8 s High 11.7-14.9 [facility] INR Coag (BldC) [Relative ti me]Ordered By: Melo Shrestha on 07-08-2024 INR Coag (Bld) [Relative time] 1.9 {INR} [facility] Comment on above: Critical Value > 4.0 International normalized rat io (INR) measurement by fingerstickOrdered By: Melo Shrestha on 07-08-2024 INR Coag (BldC) [Relative time] 1.9 [facility] Comment on above: Critical Value > 4.0 PT Coag (Bld) [Time]Ordered By: Melo Shrestha on 07-08-2024 Bedside Prothrombin Time 21.2 SEC High 11.7-14.9 [facility] Whole blood prothrombin time Ordered By: Melo Shrestha on 07-08-2024 PT Coag (Bld) [Time] 21.2 s High 11.7-14.9 [facility] INR Coag (BldC) [Relative ti me]Ordered By: Melo Shrestha on 07-05-2024 INR Coag (Bld) [Relative time] 1.2 {INR} [facility] Comment on above: Critical Value > 4.0 International normalized rat io (INR) measurement by fingerstickOrdered By: Melo Shrestha on 07-05-2024 INR Coag (BldC) [Relative time] 1.2 [facility] Comment on above: Critical Value > 4.0 PT Coag (Bld) [Time]Ordered By: Melo Shrestha on 07-05-2024 Bedside Prothrombin Time 14.0 SEC 11.7-14.9 [facility] Whole blood prothrombin time Ordered By: Melo Shrestha on 07-05-2024 PT Coag (Bld) [Time] 14.0 s 11.7-14.9 [facility] International normalized rat io (INR) calculationOrdered By: Melo Shrestha on 07-04-2024 INR Coag (Bld) [Relative time] 1.3 {INR} [facility] Prothrombin timeOrdered By: Melo Shrestha on 07-04-2024 PT Coag (PPP) [Time] 16.4 s High 11.7-14.9 [facility] INR Coag (BldC) [Relative ti me]Ordered By: Melo Shrestha on 07-03-2024 INR Coag (Bld) [Relative time] 1.1 {INR} [facility] Comment on above: Critical Value > 4.0 International normalized rat io (INR) measurement by fingerstickOrdered By: Melo Shrestha on 07-03-2024 INR Coag (BldC) [Relative time] 1.1 [facility] Comment on above: Critical Value > 4.0 PT Coag (Bld) [Time]Ordered By: Melo Shrestha on 07-03-2024 Bedside Prothrombin Time 13.5 SEC 11.7-14.9 [facility] Whole blood prothrombin time Ordered By: Melo Shrestha on 07-03-2024 PT Coag (Bld) [Time] 13.5 s 11.7-14.9 [facility] International normalized rat io (INR) calculationOrdered By: Melo Shrestha on 07-02-2024 INR Coag (Bld) [Relative time] 1.1 {INR} [facility] Prothrombin timeOrdered By: Melo Shrestha on 07-02-2024 PT Coag (PPP) [Time] 14.7 s 11.7-14.9 [facility] INR Coag (BldC) [Relative ti me]Ordered By: Melo Shrestha on 07-01-2024 INR Coag (Bld) [Relative time] 1.2 {INR} [facility] Comment on above: Critical Value > 4.0 International normalized rat io (INR) measurement by fingerstickOrdered By: Melo Shrestha on 07-01-2024 INR Coag (BldC) [Relative time] 1.2 [facility] Comment on above: Critical Value > 4.0 PT Coag (Bld) [Time]Ordered By: Melo Shrestha on 07-01-2024 Bedside Prothrombin Time 13.8 SEC 11.7-14.9 [facility] Whole blood prothrombin time Ordered By: Melo Shrestha on 07-01-2024 PT Coag (Bld) [Time] 13.8 s 11.7-14.9 [facility] Absolute lymphocyte countOrd ered By: Melo Shrestha on 06-17-2024 Lymphocytes Auto (Unsp spec) [#/Vol] 1.14 10*3/uL 0.83-4.51 [facility] Absolute neutrophil countOrd ered By: Melo Shrestha on 06-17-2024 Neutrophils (Bld) [#/Vol] 3.1 10*3/uL 2.0-7.7 [facility] Albumin to globulin ratioOrd ered By: Melo Shrestha on 06-17-2024 Albumin/Globulin [Mass ratio] 1.0 {ratio} 0.9-2.4 [facility] Automated lymphocyte count a s percentage of total leukocytesOrdered By: Melo Shrestha on 06-17-2024 Lymphocytes/100 WBC Auto (Unsp spec) 23.9 % 19-41 [facility] Basophil percentageOrdered B y: Melo Shrestha on 06-17-2024 Basophils/100 WBC (Bld) 0.6 % 0-1 [facility] Bilirubin, totalOrdered By: Melo Shrestha on 06-17-2024 Bilirubin [Mass/Vol] 0.50 mg/dL 0.20-1.00 [facility] Comment on above: For patients on eltr ombopag therapy, use of Dimension Virgin TBIL is not recommended. Blood urea nitrogen (BUN)/cr eatinine ratioOrdered By: Melo Shrestha on 06-17-2024 Urea nitrogen/Creatinine [Mass ratio] 20.8 mg/mg High 10-20 [facility] Carbon dioxide measurementOr dered By: Melo Shrestha on 06-17-2024 CO2 [Moles/Vol] 29.0 mmol/L 21.0-32.0 [facility] Chloride measurementOrdered By: Melo Shrestha on 06-17-2024 Chloride [Moles/Vol] 107 mmol/L 98-107 [facility] Eosinophil percentageOrdered By: Melo Shrestha on 06-17-2024 Eosinophils/100 WBC (Bld) 2.5 % 0-5 [facility] Erythrocyte distribution wid th ratioOrdered By: Melo Shrestha on 06-17-2024 Erythrocyte distribution width (RBC) [Ratio] 12.5 % 11.6-14.6 [facility] Erythrocyte distribution wid th standard deviationOrdered By: Melo Shrestha on 06-17-2024 Erythrocyte distribution width (RBC) [Entitic vol] 43.2 fL 35.1-43.9 [facility] Erythrocyte distribution width (RBC) [Ratio] 43.2 fl 35.1-43.9 [facility] Estimated glomerular filtrat ion rate (GFR) AmericanOrdered By: Melo Shrestha on 06-17-2024 Estimated GFR (MDRD) Amer 116 mL/min >60 [facility] Comment on above: GFR Calc Glomerular filtration rate ( GFR) estimationOrdered By: Melo Shrestha on 06-17-2024 Estimated GFR (MDRD) Non-Af Amer 96 mL/min >60 [facility] Comment on above: Non- GFR Calc GFR/1.73 sq M.predicted among non-blacks MDRD (S/P/Bld) [Vol rate/Area] 96 mL/min/{1.73_m2} >60 [facility] Comment on above: Non- GFR Calc Glucose measurementOrdered B y: Melo Shrestha on 06-17-2024 Glucose [Mass/Vol] 113 mg/dL High 74-106 [facility] Comment on above: Fasting Glucose resu lt from 100 to 125 mg/dL suggests IMPAIRED HOMEOSTASIS per A.D.A. criteria. Hematocrit Auto (Bld) [Volum e fraction]Ordered By: Melo Shrestha on 06-17-2024 Hematocrit (Bld) [Volume fraction] 37.9 % 37-47 [facility] Hemoglobin measurementOrdere d By: Melo Shrestha on 06-17-2024 Hemoglobin (Bld) [Mass/Vol] 12.1 g/dL 12.0-15.0 [facility] Immature granulocytes/100 WB C Auto (Bld)Ordered By: Melo Shrestha on 06-17-2024 Immature granulocytes/100 WBC (Bld) 0.200 % 0.0-0.9 [facility] Comment on above: IG% - Immature Granu locytes (promyelocytes, myelocytes and metamyelocytes) > 1% indicates that a LEFT SHIFT is Present. Laboratory - Chemistry and C hemistry - challengeOrdered By: Melo Shrestha on 06-17-2024 AST [Catalytic activity/Vol] 16 U/L 15-37 [facility] Lymphocytes Auto (Unsp spec) [#/Vol]Ordered By: Melo Shrestha on 06-17-2024 Lymphocytes (Bld) [#/Vol] 1.14 10*3/uL 0.83-4.51 [facility] Lymphocytes/100 WBC Auto (Un sp spec)Ordered By: Melo Shrestha on 06-17-2024 Lymphocytes/100 WBC (Bld) 23.9 % 19-41 [facility] MCV (mean corpuscular volume ) determinationOrdered By: Melo Shrestha on 06-17-2024 MCV (RBC) [Entitic vol] 94.0 fL 81-99 [facility] Mean corpuscular hemoglobin (MCH) determinationOrdered By: Melo Shrestha on 06-17-2024 MCH (RBC) [Entitic mass] 30.0 pg 27.0-32.0 [facility] Mean corpuscular hemoglobin concentration (MCHC) determinationOrdered By: Melo Shrestha on 06-17-2024 MCHC (RBC) [Mass/Vol] 31.9 g/dL Low 32-36 [facility] Mean platelet volume determi nationOrdered By: Melo Shrestha on 06-17-2024 Platelet mean volume (Bld) [Entitic vol] 10.1 fL 6.2-12.0 [facility] Monocyte percentageOrdered B y: Melo Shrestha on 06-17-2024 Monocytes/100 WBC (Bld) 8.0 % 0-10 [facility] Neutrophil percentageOrdered By: Melo Shrestha on 06-17-2024 Neutrophils/100 WBC (Bld) 64.8 % 47-70 [facility] Nucleated red blood cell per centageOrdered By: Melo Shrestha on 06-17-2024 Nucleated RBC/100 WBC (Bld) [Ratio] 0 % 0-5 [facility] Platelet countOrdered By: Bennie Shrestha on 06-17-2024 Platelets (Bld) [#/Vol] 188 10*3/uL 150-450 [facility] Potassium measurementOrdered By: Melo Shrestha on 06-17-2024 Potassium [Moles/Vol] 4.3 mmol/L 3.5-5.1 [facility] RBC Auto (Bld) [#/Vol]Ordere d By: Melo Shrestha on 06-17-2024 RBC (Bld) [#/Vol] 4.03 10*6/uL Low 4.2-5.4 [facility] Serum anion gap measurementO rdered By: Melo Shrestha on 06-17-2024 Anion gap [Moles/Vol] 3 mmol/L Low 5-15 [facility] Serum globulin measurementOr dered By: Melo Shrestha on 06-17-2024 Globulin (S) [Mass/Vol] 3.2 g/dL 2.2-4.2 [facility] Serum or plasma alanine dudley otransferase (ALT) measurementOrdered By: Melo Shrestha on 06-17-2024 ALT [Catalytic activity/Vol] 7 U/L Low 13-56 [facility] Serum or plasma albumin josué urement (mass/volume)Ordered By: Melo Shrestha on 06-17-2024 Albumin [Mass/Vol] 3.1 g/dL Low 3.2-5.0 [facility] Serum or plasma alkaline juventino sphatase measurementOrdered By: Melo Shrestha on 06-17-2024 ALP [Catalytic activity/Vol] 56 U/L 45-117 [facility] Serum or plasma calcium josué urement (mass/volume)Ordered By: Melo Shrestha on 06-17-2024 Calcium [Mass/Vol] 8.9 mg/dL 8.5-10.1 [facility] Serum or plasma creatinine m easurement (mass/volume)Ordered By: Melo Shrestha on 06-17-2024 Creatinine [Mass/Vol] 0.62 mg/dL 0.55-1.02 [facility] Comment on above: The validity of the calculated GFR & GFRAA in patients over 70 years has not been determined. Clinical correlation is essential. Serum or plasma urea nitroge n measurement (mass/volume)Ordered By: Melo Shrestha on 06-17-2024 Urea nitrogen [Mass/Vol] 13 mg/dL 7-18 [facility] Sodium levelOrdered By: Neo Shrestha on 06-17-2024 Sodium [Moles/Vol] 140 mmol/L 136-145 [facility] Total proteinOrdered By: Enoc Shrestha on 06-17-2024 Protein [Mass/Vol] 6.3 g/dL Low 6.4-8.2 [facility] White blood cell (WBC) count Ordered By: Melo Shrestha on 06-17-2024 WBC (Bld) [#/Vol] 4.8 10*3/uL 4.4-11.0 [facility] Bilirubin Test strip Ql (U)O rdered By: Melo Shrestha on 06-16-2024 Bilirubin Ql (U) Negative Negative [facility] Epithelial cells.squamous LM Ql (Urine sed)Ordered By: Melo Shrestha on 06-16-2024 Epithelial cells.squamous LM.HPF (Urine sed) [#/Area] 0 /[HPF] 5-10 [facility] Glucose Ql (U)Ordered By: Bennie Shrestha on 06-16-2024 Urine Glucose (UA) Normal mg/dl Normal [facility] Ketones Test strip Ql (U)Ord ered By: Melo Shrestha on 06-16-2024 Ketones Ql (U) Negative Negative [facility] Microscopic analysis of urin e for red blood cells (RBC)Ordered By: Melo Shrestha on 06-16-2024 Microscopic analysis of urine for red blood cells (RBC) 0 SEEN /hpf 0-5 [facility] Urine RBC 0 SEEN /hpf 0-5 [facility] Mucus LM Ql (Urine sed)Order ed By: Melo Shrestha on 06-16-2024 Mucus Ql (Urine sed) 0 SEEN /hpf [facility] Nitrite Test strip Ql (U)Ord ered By: Melo Shrestha on 06-16-2024 Nitrite Ql (U) Negative Negative [facility] Protein Test strip Ql (U)Ord ered By: Melo Shrestha on 06-16-2024 Protein Ql (U) Negative Negative [facility] Squamous epithelial cells de tection in urine sediment by light microscopyOrdered By: Melo Shrestha on 06-16-2024 Epithelial cells.squamous LM Ql (Urine sed) 0 SEEN /hpf 5-10 [facility] Urine blood detectionOrdered By: Melo Shrestha on 06-16-2024 Urine Occult Blood Negative Negative [facility] Urine clarityOrdered By: Enoc Shrestha on 06-16-2024 Clarity (U) Clear Clear [facility] Urine color determinationOrd ered By: Melo Shrestha on 06-16-2024 Color (U) Straw Yellow [facility] Urine cultureOrdered By: Enoc Shrestha on 06-16-2024 Bacteria identified Cx Nom (U) Culture exhibits no growth. [facility] Bacteria identified Cx Nom (U) Culture exhibits no growth. [facility] Urine glucose detectionOrder ed By: Melo Shrestha on 06-16-2024 Glucose Ql (U) Normal mg/dl Normal [facility] Urine leukocyte esterase det ection by dipstickOrdered By: Melo Shrestha on 06-16-2024 Leukocyte esterase Test strip Ql (U) Negative Negative [facility] Urine pHOrdered By: Melo flores on 06-16-2024 pH (U) 7.0 [pH] 5.0 - 8.0 [facility] Urine sediment bacteria coun t by microscopy (number/high power field)Ordered By: Melo Shrestha on 06-16-2024 Bacteria LM.HPF (Urine sed) [#/Area] 0 /[HPF] None Seen [facility] Urine specific gravity measu rementOrdered By: Melo Shrestha on 06-16-2024 Specific gravity (U) [Rel density] 1.005 1.002-1.030 [facility] Urine urobilinogen measureme ntOrdered By: Melo Shrestha on 06-16-2024 Urobilinogen Ql (U) Normal mg/dl Normal [facility] Urobilinogen Ql (U)Ordered B y: Melo Shrestha on 06-16-2024 Urine Urobilinogen Normal mg/dl Normal [facility] White blood cell countOrdere d By: Melo Shrestha on 06-16-2024 Urine WBC 0 SEEN /hpf 0-5 [facility] White blood cell count 0 SEEN /hpf 0-5 [facility] Blood urea nitrogen (BUN)/cr eatinine ratioOrdered By: Melo Shrestha on 04-04-2024 Urea nitrogen/Creatinine [Mass ratio] 20.8 mg/mg High 10-20 [facility] Carbon dioxide measurementOr dered By: Melo Shrestha on 04-04-2024 CO2 [Moles/Vol] 29.0 mmol/L 21.0-32.0 [facility] Chloride measurementOrdered By: Melo Shrestha on 04-04-2024 Chloride [Moles/Vol] 105 mmol/L 98-107 [facility] Direct serum free thyroxine (FT4) measurementOrdered By: Melo Shrestha on 04-04-2024 Free T4 [Mass/Vol] 0.92 ng/dL 0.76-1.46 [facility] Erythrocyte distribution wid th ratioOrdered By: Melo Shrestha on 04-04-2024 Erythrocyte distribution width (RBC) [Ratio] 12.8 % 11.6-14.6 [facility] Erythrocyte distribution wid th standard deviationOrdered By: Melo Shrestha on 04-04-2024 Erythrocyte distribution width (RBC) [Entitic vol] 44.6 fL High 35.1-43.9 [facility] Estimated glomerular filtrat ion rate (GFR) AmericanOrdered By: Melo Shrestha on 04-04-2024 Estimated GFR (MDRD) Amer 116 mL/min >60 [facility] Comment on above: GFR Calc Glomerular filtration rate ( GFR) estimationOrdered By: Melo Shrestha on 04-04-2024 Estimated GFR (MDRD) Non-Af Amer 96 mL/min >60 [facility] Comment on above: Non- GFR Calc Glucose measurementOrdered B y: Melo Shrestha on 04-04-2024 Glucose [Mass/Vol] 102 mg/dL 74-106 [facility] Comment on above: Fasting Glucose resu lt from 100 to 125 mg/dL suggests IMPAIRED HOMEOSTASIS per A.D.A. criteria. Hematocrit Auto (Bld) [Volum e fraction]Ordered By: Melo Shrestha on 04-04-2024 Hematocrit (Bld) [Volume fraction] 37.1 % 37-47 [facility] Hemoglobin measurementOrdere d By: Melo Shrestha on 04-04-2024 Hemoglobin (Bld) [Mass/Vol] 11.8 g/dL Low 12.0-15.0 [facility] MCV (mean corpuscular volume ) determinationOrdered By: Melo Shrestha on 04-04-2024 MCV (RBC) [Entitic vol] 94.9 fL 81-99 [facility] Mean corpuscular hemoglobin (MCH) determinationOrdered By: Melo Shrestha on 04-04-2024 MCH (RBC) [Entitic mass] 30.2 pg 27.0-32.0 [facility] Mean corpuscular hemoglobin concentration (MCHC) determinationOrdered By: Melo Shrestha on 04-04-2024 MCHC (RBC) [Mass/Vol] 31.8 g/dL Low 32-36 [facility] Mean platelet volume determi nationOrdered By: Melo Shrestha on 04-04-2024 Platelet mean volume (Bld) [Entitic vol] 9.4 fL 6.2-12.0 [facility] Platelet countOrdered By: Bennie Shrestha on 04-04-2024 Platelets (Bld) [#/Vol] 294 10*3/uL 150-450 [facility] Potassium measurementOrdered By: Melo Shrestha on 04-04-2024 Potassium [Moles/Vol] 4.0 mmol/L 3.5-5.1 [facility] RBC Auto (Bld) [#/Vol]Ordere d By: Melo Shrestha on 04-04-2024 RBC (Bld) [#/Vol] 3.91 10*6/uL Low 4.2-5.4 [facility] Serum anion gap measurementO rdered By: Melo Shrestha on 04-04-2024 Anion gap [Moles/Vol] 3 mmol/L Low 5-15 [facility] Serum or plasma calcium josué urement (mass/volume)Ordered By: Melo Shrestha on 04-04-2024 Calcium [Mass/Vol] 8.7 mg/dL 8.5-10.1 [facility] Serum or plasma creatinine m easurement (mass/volume)Ordered By: Melo Shrestha on 04-04-2024 Creatinine [Mass/Vol] 0.62 mg/dL 0.55-1.02 [facility] Comment on above: The validity of the calculated GFR & GFRAA in patients over 70 years has not been determined. Clinical correlation is essential. Serum or plasma urea nitroge n measurement (mass/volume)Ordered By: Melo Shrestha on 04-04-2024 Urea nitrogen [Mass/Vol] 13 mg/dL 7-18 [facility] Serum prealbumin measurement by immunoassayOrdered By: Melo Shrestha on 04-04-2024 Prealbumin [Mass/Vol] 16 mg/dL 9-32 [facility] Comment on above: Performed at: [address] [id number] Director: Rolando Bocanegra PhD, Phone: [phone] Sodium levelOrdered By: Neo Shrestha on 04-04-2024 Sodium [Moles/Vol] 137 mmol/L 136-145 [facility] TSH QnOrdered By: Melo wyatt on 04-04-2024 Thyroid Stimulating Hormone (TSH) 1.710 uIU/mL 0.358-3.740 [facility] White blood cell (WBC) count Ordered By: Melo Shrestha on 04-04-2024 WBC (Bld) [#/Vol] 4.9 10*3/uL 4.4-11.0 [facility] Chest 1 View (Portable)on Chest 1 View (Portable) [facility] Imaging Services [address] [place] [address] [id number] Chest 1 View (Portable) MR#: [id number] Acct: [id number] Name: COLETTE RICHARDSON Soheila Rep #: [id number] : 1935 F 88 From: Tyrel Pierson PCP: Dr. Melo Shrestha MD Status: REG ER Study: Chest 1 View (Portable) Date of Exam: 03/24/24 Exam# [id number] Ordering Dr: Serge Gómez DO [id number] INDICATION: Cough EXAMINATION/TECHNIQUE : X-RAY - XR [...] Serge Gómez DO; Dr. Melo Shrestha MD Certified Marine [employer]ic: Signed Normal [facility] Emergency Department Summary on 03-24-2024 Emergency Department Summary [facility] Medical Records Department [address] [place] [address] Emergency Department Summary 03/24/24 MR#: [id number] Acct: [id number] Name: COLETTE RICHARDSON Rep #: [id number] : 1935 88 From: Serge Gómez DO [...] Negative for Parasthesia or Loss of Funtion [facility] Medical History History of Parkinson's disease Memory loss Nonrheumatic aortic (valve) stenosis Poor balance 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 Rheumatoid arthritis Parkinsonian syndrome History of pulmonary embolus (PE) Postoperative atrial fibrillation (04/04/13) Recurrent deep vein thrombosis (DVT) Hypercoagulable state History of non-ST elevation myocardial infarction (NSTEMI) (10/01/16) Atherosclerotic heart disease of [place] coronary artery without angina pectoris Paroxysmal atrial [...] (From AdvReac Itching Verified 03/24/24 11:05 Vicodin) Yyieuql-TRH-ZcS Reductase AdvReac Other Verified 03/24/24 11:05 Inhibitor (Gojietw-Etl-Rwt Reductase Inhibitor) Surgical History History of coronary [...] Cardiovascular Cardiov (more content not included)... Normal [facility] Extremity Lower without Cont raon 03-24-2024 Extremity Lower without Contra [facility] Imaging Services [address] [place] [address] Extremity Lower without Contra MR#: [id number] Acct: [id number] Name: COLETTE RICHARDSON Rep #: [id number] : 1935 F 88 From: Tyrel Pierson PCP: Dr. Melo Shrestha MD Status: REG ER Study: Extremity Lower without Contra Date of Exam: 1 Exam# [id number] Ordering Dr: Serge Gómez DO [id number] STUDY: CT RIGHT HIP REASON FOR EXAM: [...] Serge Gómez DO; Dr. Melo Shrestha MD Certified Marine Mechanic: Signed Normal [facility] HIP, UNI W/ Pelvis 2-3 Views on 03-24-2024 HIP, UNI W/ Pelvis 2-3 Views [facility] Imaging Services [address] [place] [id number] HIP, UNI W/ Pelvis 2-3 Views MR#: [id number] Acct: [id number] Name: COLETTE RICHARDSON Rep #: [id number] : 1935 F 88 From: Tyrel Pierson PCP: Dr. Melo Shrestha MD Status: [facility] Study: HIP, UNI W/ Pelvis 2-3 Views Date of Exam: Exam# [id number] Ordering Dr: Serge Gómez DO [id number] INDICATION: Injury/Pain EXAMINATION/TECHNIQUE : X-RAY - XR [...] Serge Gómez, ; Dr. Melo Shrestha MD Certified Marine Mechanic: Signed Normal [facility] Laboratory - CoagulationOrde red By: Joao Simon on 09-11-2023 INR Coag (Bld) [Relative time] 2.3 {INR} [facility] PT Coag (PPP) [Time] 25.2 s 11.7-14.9 [facility] Capillary blood internationa l normalized ratio (INR)Ordered By: Joao Simon on 08-30-2023 INR Coag (BldC) [Relative time] 1.9 [facility] Comment on above: Critical Value > 4.0 Whole blood prothrombin time Ordered By: Joao Simon on 08-30-2023 PT Coag (Bld) [Time] 19.9 s 11.7-14.9 [facility] Laboratory - CoagulationOrde red By: Joao Simon on 08-09-2023 INR Coag (Bld) [Relative time] 2.7 {INR} [facility] PT Coag (PPP) [Time] 28.2 s 11.7-14.9 [facility] Laboratory - CoagulationOrde red By: Joao Simon on 07-26-2023 INR Coag (Bld) [Relative time] 2.7 {INR} [facility] PT Coag (PPP) [Time] 28.2 s 11.7-14.9 [facility] Laboratory - CoagulationOrde red By: Joao Simon on 07-11-2023 INR Coag (Bld) [Relative time] 2.8 {INR} [facility] PT Coag (PPP) [Time] 30.2 s 11.7-14.9 [facility] Capillary blood internationa l normalized ratio (INR)Ordered By: Joao Simon on 06-28-2023 INR Coag (BldC) [Relative time] 2.6 [facility] Comment on above: Critical Value > 4.0 Whole blood prothrombin time Ordered By: Joao Simon on 06-28-2023 PT Coag (Bld) [Time] 27.9 s 11.7-14.9 [facility] Capillary blood internationa l normalized ratio (INR)Ordered By: Joao Simon on 06-14-2023 INR Coag (BldC) [Relative time] 1.8 [facility] Comment on above: Critical Value > 4.0 Whole blood prothrombin time Ordered By: Joao Simon on 06-14-2023 PT Coag (Bld) [Time] 19.7 s 11.7-14.9 [facility] Laboratory - CoagulationOrde red By: Joao Simon on 05-31-2023 INR Coag (Bld) [Relative time] 2.5 {INR} [facility] Comment on above: Critical Value > 4.0 Whole blood prothrombin time Ordered By: Joao Simon on 05-31-2023 PT Coag (Bld) [Time] 26.7 s 11.7-14.9 [facility] Laboratory - CoagulationOrde red By: Joao Simon on 05-23-2023 INR Coag (Bld) [Relative time] 3.4 {INR} [facility] Comment on above: Critical Value > 4.0 Whole blood prothrombin time Ordered By: Joao Simon on 05-23-2023 PT Coag (Bld) [Time] 36.3 s 11.7-14.9 [facility] Laboratory - CoagulationOrde red By: Joao Simon on 05-08-2023 INR Coag (Bld) [Relative time] 2.4 {INR} [facility] Comment on above: Critical Value > 4.0 Whole blood prothrombin time Ordered By: Joao Simon on 05-08-2023 PT Coag (Bld) [Time] 26.0 s 11.7-14.9 [facility] Laboratory - CoagulationOrde red By: Joao Simon on 04-06-2023 INR Coag (Bld) [Relative time] 2.8 {INR} [facility] Comment on above: Critical Value > 4.0 Whole blood prothrombin time Ordered By: Joao Simon on 04-06-2023 PT Coag (Bld) [Time] 29.8 s 11.7-14.9 [facility] Basophil percentageOrdered B y: Joao Simon on 03-06-2023 Cholesterol [Mass/Vol] 113 mg/dL <200 [facility] Comment on above: <200 mg/dL Desirable 200-240 mg/dL Borderline >240 mg/dL High Risk Triglyceride [Mass/Vol] 82 mg/dL <199 [facility] Comment on above: The drugs N-Acetylcy steine and Metamizole may falsely depress this assay.Serum Triglycerides Reference Interval Normal <150 mg/dL Borderline high 150 - 199 mg/dL High 200 - 499 mg/dL Very High > or = 500 mg/dL WBC (Bld) [#/Vol] 5.8 10*3/uL 4.4-11.0 [facility] Blood erythrocytes count (nu mber/volume)Ordered By: Joao Simon on 03-06-2023 RBC (Bld) [#/Vol] 3.97 10*6/uL 4.2-5.4 [facility] Blood hemoglobin measurement (mass/volume)Ordered By: Joao Simon on 03-06-2023 Hemoglobin (Bld) [Mass/Vol] 12.1 g/dL 12.0-15.0 [facility] Blood platelet mean volumeOr dered By: Joao Simon on 03-06-2023 Platelet mean volume (Bld) [Entitic vol] 10.9 fL 6.2-12.0 [facility] Determination of erythrocyte mean corpuscular volume (MCV)Ordered By: Joao Simon on 03-06-2023 MCV (RBC) [Entitic vol] 96.5 fL 81-99 [facility] Hematocrit Auto (Bld) [Volum e fraction]Ordered By: Joao Simon on 03-06-2023 Hematocrit (Bld) [Volume fraction] 38.3 % 37-47 [facility] Laboratory - Hematology and Cell countsOrdered By: Joao Simon on 03-06-2023 Erythrocyte distribution width (RBC) [Entitic vol] 44.8 fL 35.1-43.9 [facility] Erythrocyte distribution width (RBC) [Ratio] 12.7 % 11.6-14.6 [facility] MCH (RBC) [Entitic mass] 30.5 pg 27.0-32.0 [facility] MCHC Auto (RBC) [Mass/Vol]Or dered By: Joao Simon on 03-06-2023 MCHC (RBC) [Mass/Vol] 31.6 g/dL 32-36 [facility] No Panel InformationOrdered By: Joao Simon on 03-06-2023 Thyroid Stimulating Hormone (TSH) 1.71 uIU/mL 0.358-3.74 [facility] Platelets bldOrdered By: Brittany Simon on 03-06-2023 Platelets (Bld) [#/Vol] 195 10*3/uL 150-450 [facility] Serum or plasma cholesterol in HDL measurement (mass/volume)Ordered By: Joao Simon on 03-06-2023 Cholesterol in HDL [Mass/Vol] 44 mg/dL >40 [facility] Comment on above: The drugs N-Acetylcy steine and Metamizole may falsely depress this assay. Reference Range HDL <40 mg/dL Low HDL Cholesterol HDL >or= 60 mg/dL High HDL Cholesterol Serum or plasma cholesterol in VLDL measurement (mass/volume)Ordered By: Joao Simon on 03-06-2023 Cholesterol in VLDL [Mass/Vol] 16 mg/dL 5-40 [facility] Serum or plasma low density lipoprotein (LDL) cholesterol measurement (mass/volume)Ordered By: Joao Simon on 03-06-2023 Cholesterol in LDL [Mass/Vol] 53 mg/dL 0-130 [facility] Laboratory - CoagulationOrde red By: Joao Simon on 02-21-2023 INR Coag (Bld) [Relative time] 3.1 {INR} [facility] Comment on above: Critical Value > 4.0 Whole blood prothrombin time Ordered By: Joao Simon on 02-21-2023 PT Coag (Bld) [Time] 32.7 s 11.7-14.9 [facility] Laboratory - CoagulationOrde red By: Joao Simon on 02-14-2023 INR Coag (Bld) [Relative time] 1.9 {INR} [facility] Comment on above: Critical Value > 4.0 Whole blood prothrombin time Ordered By: Joao Simon on 02-14-2023 PT Coag (Bld) [Time] 21.2 s 11.7-14.9 [facility] INR in Blood by Coagulation assayOrdered By: Joao Simon on 02-07-2023 INR Coag (Bld) [Relative time] 4.3 {INR} [facility] Laboratory - Chemistry and C hemistry - challengeOrdered By: Joao Simon on 02-07-2023 Cobalamin (Vitamin B12) [Mass/Vol] 243 pg/mL 211-911 [facility] Laboratory - CoagulationOrde red By: Joao Simon on 02-07-2023 PT Coag (PPP) [Time] 41.7 s 11.7-14.9 [facility] Absolute lymphocyte countOrd ered By: Matt Coy on 02-02-2023 Lymphocytes Auto (Unsp spec) [#/Vol] 1.73 10*3/uL 0.83-4.51 [facility] Basophil percentageOrdered B y: Matt Coy on 02-02-2023 Basophil percentage 0-5 SEEN /hpf 0-5 [facility] Basophils/100 WBC (Bld) 0.6 % 0-1 [facility] Bilirubin [Mass/Vol] 0.30 mg/dL 0.20-1.00 [facility] Comment on above: For patients on eltr ombopag therapy, use of Dimension Virgin TBIL is not recommended. Chloride [Moles/Vol] 104 mmol/L 98-107 [facility] Eosinophils/100 WBC (Bld) 1.7 % 0-5 [facility] Glucose [Mass/Vol] 133 mg/dL 74-106 [facility] Comment on above: Fasting Glucose resu lt greater than or equal to 126 mg/dL suggests DIABETES MELLITUS per A.D.A. criteria. Neutrophils (Bld) [#/Vol] 4.6 10*3/uL 2.0-7.7 [facility] Neutrophils/100 WBC (Bld) 65.1 % 47-70 [facility] Potassium [Moles/Vol] 4.5 mmol/L 3.5-5.1 [facility] Protein [Mass/Vol] 6.9 g/dL 6.4-8.2 [facility] Sodium [Moles/Vol] 137 mmol/L 136-145 [facility] WBC (Bld) [#/Vol] 7.1 10*3/uL 4.4-11.0 [facility] Bilirubin Test strip Ql (U)O rdered By: Matt Coy on 02-02-2023 Bilirubin Ql (U) Negative Negative [facility] Blood erythrocytes count (nu mber/volume)Ordered By: Matt Coy on 02-02-2023 RBC (Bld) [#/Vol] 4.68 10*6/uL 4.2-5.4 [facility] Blood hemoglobin measurement (mass/volume)Ordered By: Matt Coy on 02-02-2023 Hemoglobin (Bld) [Mass/Vol] 14.3 g/dL 12.0-15.0 [facility] Blood lymphocytes/100 leukoc ytesOrdered By: Matt Coy on 02-02-2023 Lymphocytes/100 WBC (Bld) 24.4 % 19-41 [facility] Blood monocytes/100 leukocyt esOrdered By: Matt Coy on 02-02-2023 Monocytes/100 WBC (Bld) 7.9 % 0-10 [facility] Blood platelet mean volumeOr dered By: Matt Coy on 02-02-2023 Platelet mean volume (Bld) [Entitic vol] 10.3 fL 6.2-12.0 [facility] Determination of erythrocyte mean corpuscular volume (MCV)Ordered By: Matt Coy on 02-02-2023 MCV (RBC) [Entitic vol] 94.0 fL 81-99 [facility] Hematocrit Auto (Bld) [Volum e fraction]Ordered By: Matt Coy on 02-02-2023 Hematocrit (Bld) [Volume fraction] 44.0 % 37-47 [facility] INR in Blood by Coagulation assayOrdered By: Matt Coy on 02-02-2023 INR Coag (Bld) [Relative time] 3.5 {INR} [facility] Ketones Test strip Ql (U)Ord ered By: Matt Coy on 02-02-2023 Ketones Ql (U) Negative Negative [facility] Laboratory - Chemistry and C hemistry - challengeOrdered By: Matt Coy on 02-02-2023 ALP [Catalytic activity/Vol] 73 U/L 45-117 [facility] ALT [Catalytic activity/Vol] 15 U/L 13-56 [facility] CO2 [Moles/Vol] 30.0 mmol/L 21.0-32.0 [facility] Globulin (S) [Mass/Vol] 3.7 g/dL 2.2-4.2 [facility] Lipase [Catalytic activity/Vol] 15 U/L 13-75 [facility] Comment on above: Please note:LIPASE r evised reference range effective 22. New Lipase methodology. Expected to produce lower values than the previous assay method. NEW Reference Range: 13 - 75 U/L Urea nitrogen/Creatinine [Mass ratio] 16.2 mg/mg 10-20 [facility] Laboratory - CoagulationOrde red By: Matt Coy on 02-02-2023 PT Coag (PPP) [Time] 36.0 s 11.7-14.9 [facility] Laboratory - Hematology and Cell countsOrdered By: Matt Coy on 02-02-2023 Erythrocyte distribution width (RBC) [Entitic vol] 42.9 fL 35.1-43.9 [facility] Erythrocyte distribution width (RBC) [Ratio] 12.5 % 11.6-14.6 [facility] Immature granulocytes/100 WBC (Bld) 0.300 % 0.0-0.9 [facility] Comment on above: IG% - Immature Granu locytes (promyelocytes, myelocytes and metamyelocytes) > 1% indicates that a LEFT SHIFT is Present. MCH (RBC) [Entitic mass] 30.6 pg 27.0-32.0 [facility] Nucleated RBC/100 WBC (Bld) [Ratio] 0 % 0-5 [facility] MCHC Auto (RBC) [Mass/Vol]Or dered By: Matt Coy on 02-02-2023 MCHC (RBC) [Mass/Vol] 32.5 g/dL 32-36 [facility] Mucus LM Ql (Urine sed)Order ed By: Matt Coy on 02-02-2023 Mucus Ql (Urine sed) 1+ /hpf [facility] Nitrite Test strip Ql (U)Ord ered By: Matt Coy on 02-02-2023 Nitrite Ql (U) Negative Negative [facility] No Panel InformationOrdered By: Matt Coy on 02-02-2023 Estimated GFR (MDRD) Amer 106 mL/min >60 [facility] Comment on above: GFR Calc Estimated GFR (MDRD) Non-Af Amer 87 mL/min >60 [facility] Comment on above: Non- GFR Calc Platelets bldOrdered By: Macey Coy on 02-02-2023 Platelets (Bld) [#/Vol] 216 10*3/uL 150-450 [facility] Protein Test strip Ql (U)Ord ered By: Matt Coy on 02-02-2023 Protein Ql (U) Negative Negative [facility] Serum or plasma albumin josué urement (mass/volume)Ordered By: Matt Coy on 02-02-2023 Albumin [Mass/Vol] 3.2 g/dL 3.2-5.0 [facility] Serum or plasma albumin/glob ulin mass ratioOrdered By: Matt Coy on 02-02-2023 Albumin/Globulin [Mass ratio] 0.9 {ratio} 0.9-2.4 [facility] Serum or plasma calcium josué urement (mass/volume)Ordered By: Matt Coy on 02-02-2023 Calcium [Mass/Vol] 8.9 mg/dL 8.5-10.1 [facility] Serum or plasma creatinine m easurement (mass/volume)Ordered By: Matt Coy on 02-02-2023 Creatinine [Mass/Vol] 0.68 mg/dL 0.55-1.02 [facility] Comment on above: The validity of the calculated GFR & GFRAA in patients over 70 years has not been determined. Clinical correlation is essential. Serum or plasma urea nitroge n measurement (mass/volume)Ordered By: Matt Coy on 02-02-2023 Urea nitrogen [Mass/Vol] 11 mg/dL 7-18 [facility] Squamous epithelial cells de tection in urine sediment by light microscopyOrdered By: Matt Coy on 02-02-2023 Epithelial cells.squamous LM Ql (Urine sed) 0 SEEN /hpf 5-10 [facility] Thin prep Papanicolaou smear with manual screeningOrdered By: Matt Coy on 02-02-2023 Thin prep Papanicolaou smear with manual screening 18 U/L 15-37 [facility] Thin prep Papanicolaou smear with manual screening 3 5-15 [facility] Urine blood detectionOrdered By: Matt Coy on 02-02-2023 RBC Ql (U) 25 /ul Negative [facility] RBC Ql (U) 0-5 SEEN /hpf 0-5 [facility] Urine clarityOrdered By: Macey Coy on 02-02-2023 Clarity (U) Clear Clear [facility] Urine color determinationOrd ered By: Matt Coy on 02-02-2023 Color (U) Yellow Yellow [facility] Urine glucose detectionOrder ed By: Matt Coy on 02-02-2023 Glucose Ql (U) Normal mg/dl Normal [facility] Urine leukocyte esterase det ection by dipstickOrdered By: Matt Coy on 02-02-2023 Leukocyte esterase Test strip Ql (U) 25 /ul Negative [facility] Urine pHOrdered By: Matt jacob on 02-02-2023 pH (U) 6.5 [pH] 5.0 - 8.0 [facility] Urine sediment bacteria coun t by microscopy (number/high power field)Ordered By: Matt Coy on 02-02-2023 Bacteria LM.HPF (Urine sed) [#/Area] 0 /[HPF] None Seen [facility] Urine specific gravity measu rementOrdered By: Matt Coy on 02-02-2023 Specific gravity (U) [Rel density] 1.015 1.002-1.030 [facility] Urobilinogen Auto test strip Ql (U)Ordered By: Matt Coy on 02-02-2023 Urobilinogen Ql (U) Normal mg/dl Normal [facility] Basophil percentageOrdered B y: Joao Simon on 01-03-2023 Sodium [Moles/Vol] 141 mmol/L 136-145 [facility] WBC (Bld) [#/Vol] 5.7 10*3/uL 4.4-11.0 [facility] Blood erythrocytes count (nu mber/volume)Ordered By: Joao Simon on 01-03-2023 RBC (Bld) [#/Vol] 4.44 10*6/uL 4.2-5.4 [facility] Blood hemoglobin measurement (mass/volume)Ordered By: Joao Simon on 01-03-2023 Hemoglobin (Bld) [Mass/Vol] 13.5 g/dL 12.0-15.0 [facility] Blood platelet mean volumeOr dered By: Joao Simon on 01-03-2023 Platelet mean volume (Bld) [Entitic vol] 10.6 fL 6.2-12.0 [facility] Determination of erythrocyte mean corpuscular volume (MCV)Ordered By: Joao Simon on 01-03-2023 MCV (RBC) [Entitic vol] 96.2 fL 81-99 [facility] Hematocrit Auto (Bld) [Volum e fraction]Ordered By: Joao Simon on 01-03-2023 Hematocrit (Bld) [Volume fraction] 42.7 % 37-47 [facility] INR in Blood by Coagulation assayOrdered By: Joao Simon on 01-03-2023 INR Coag (Bld) [Relative time] 2.0 {INR} [facility] Laboratory - CoagulationOrde red By: Joao Simon on 01-03-2023 PT Coag (PPP) [Time] 23.0 s 11.7-14.9 [facility] Laboratory - Hematology and Cell countsOrdered By: Joao Simon on 01-03-2023 Erythrocyte distribution width (RBC) [Entitic vol] 45.0 fL 35.1-43.9 [facility] Erythrocyte distribution width (RBC) [Ratio] 12.7 % 11.6-14.6 [facility] MCH (RBC) [Entitic mass] 30.4 pg 27.0-32.0 [facility] MCHC Auto (RBC) [Mass/Vol]Or dered By: Joao Simon on 01-03-2023 MCHC (RBC) [Mass/Vol] 31.6 g/dL 32-36 [facility] Platelets bldOrdered By: Brittany Simon on 01-03-2023 Platelets (Bld) [#/Vol] 214 10*3/uL 150-450 [facility] Basophil percentageOrdered B y: Joao Simon on 11-30-2022 Cholesterol [Mass/Vol] 127 mg/dL <200 [facility] Comment on above: <200 mg/dL Desirable 200-240 mg/dL Borderline >240 mg/dL High Risk Sodium [Moles/Vol] 139 mmol/L 136-145 [facility] Triglyceride [Mass/Vol] 73 mg/dL <199 [facility] Comment on above: The drugs N-Acetylcy steine and Metamizole may falsely depress this assay.Serum Triglycerides Reference Interval Normal <150 mg/dL Borderline high 150 - 199 mg/dL High 200 - 499 mg/dL Very High > or = 500 mg/dL INR in Blood by Coagulation assayOrdered By: Joao Simon on 11-30-2022 INR Coag (Bld) [Relative time] 3.3 {INR} [facility] Laboratory - CoagulationOrde red By: Joao Simon on 11-30-2022 PT Coag (PPP) [Time] 34.0 s 11.7-14.9 [facility] Serum or plasma cholesterol in HDL measurement (mass/volume)Ordered By: Joao Simon on 11-30-2022 Cholesterol in HDL [Mass/Vol] 49 mg/dL >40 [facility] Comment on above: The drugs N-Acetylcy steine and Metamizole may falsely depress this assay. Reference Range HDL <40 mg/dL Low HDL Cholesterol HDL >or= 60 mg/dL High HDL Cholesterol Serum or plasma cholesterol in VLDL measurement (mass/volume)Ordered By: Joao Simon on 11-30-2022 Cholesterol in VLDL [Mass/Vol] 15 mg/dL 5-40 [facility] Serum or plasma low density lipoprotein (LDL) cholesterol measurement (mass/volume)Ordered By: Joao Simon on 11-30-2022 Cholesterol in LDL [Mass/Vol] 63 mg/dL 0-130 [facility] Laboratory - CoagulationOrde red By: Joao Simon on 11-16-2022 INR Coag (Bld) [Relative time] 3.0 {INR} [facility] Comment on above: Critical Value > 4.0 Whole blood prothrombin time Ordered By: Joao Simon on 11-16-2022 PT Coag (Bld) [Time] 32.0 s 11.7-14.9 [facility] Basophil percentageOrdered B y: Joao Simon on 11-02-2022 Chloride [Moles/Vol] 108 mmol/L 98-107 [facility] Glucose [Mass/Vol] 120 mg/dL 74-106 [facility] Comment on above: Fasting Glucose resu lt from 100 to 125 mg/dL suggests IMPAIRED HOMEOSTASIS per A.D.A. criteria. Potassium [Moles/Vol] 4.8 mmol/L 3.5-5.1 [facility] Sodium [Moles/Vol] 141 mmol/L 136-145 [facility] WBC (Bld) [#/Vol] 6.2 10*3/uL 4.4-11.0 [facility] Blood erythrocytes count (nu mber/volume)Ordered By: Joao Simon on 11-02-2022 RBC (Bld) [#/Vol] 4.44 10*6/uL 4.2-5.4 [facility] Blood hemoglobin measurement (mass/volume)Ordered By: Joao Simon on 11-02-2022 Hemoglobin (Bld) [Mass/Vol] 13.6 g/dL 12.0-15.0 [facility] Blood platelet mean volumeOr dered By: Joao Simon on 11-02-2022 Platelet mean volume (Bld) [Entitic vol] 10.7 fL 6.2-12.0 [facility] Determination of erythrocyte mean corpuscular volume (MCV)Ordered By: Joao Simon on 11-02-2022 MCV (RBC) [Entitic vol] 95.5 fL 81-99 [facility] Hematocrit Auto (Bld) [Volum e fraction]Ordered By: Joao Simon on 11-02-2022 Hematocrit (Bld) [Volume fraction] 42.4 % 37-47 [facility] INR in Blood by Coagulation assayOrdered By: Joao Simon on 11-02-2022 INR Coag (Bld) [Relative time] 2.9 {INR} [facility] Laboratory - Chemistry and C hemistry - challengeOrdered By: Joao Simon on 11-02-2022 CO2 [Moles/Vol] 30.0 mmol/L 21.0-32.0 [facility] Urea nitrogen/Creatinine [Mass ratio] 14.5 mg/mg 10-20 [facility] Laboratory - CoagulationOrde red By: Joao Simon on 11-02-2022 PT Coag (PPP) [Time] 30.9 s 11.7-14.9 [facility] Laboratory - Hematology and Cell countsOrdered By: Joao Simon on 11-02-2022 Erythrocyte distribution width (RBC) [Entitic vol] 46.2 fL 35.1-43.9 [facility] Erythrocyte distribution width (RBC) [Ratio] 13.1 % 11.6-14.6 [facility] MCH (RBC) [Entitic mass] 30.6 pg 27.0-32.0 [facility] MCHC Auto (RBC) [Mass/Vol]Or dered By: Joao Simon on 11-02-2022 MCHC (RBC) [Mass/Vol] 32.1 g/dL 32-36 [facility] No Panel InformationOrdered By: Joao Simon on 11-02-2022 Estimated GFR (MDRD) Amer 104 mL/min >60 [facility] Comment on above: GFR Calc Estimated GFR (MDRD) Non-Af Amer 86 mL/min >60 [facility] Comment on above: Non- GFR Calc Platelets bldOrdered By: Brittnay Simon on 11-02-2022 Platelets (Bld) [#/Vol] 226 10*3/uL 150-450 [facility] Serum or plasma calcium josué urement (mass/volume)Ordered By: Joao Simon on 11-02-2022 Calcium [Mass/Vol] 9.2 mg/dL 8.5-10.1 [facility] Serum or plasma creatinine m easurement (mass/volume)Ordered By: Joao Simon on 11-02-2022 Creatinine [Mass/Vol] 0.69 mg/dL 0.55-1.02 [facility] Comment on above: The validity of the calculated GFR & GFRAA in patients over 70 years has not been determined. Clinical correlation is essential. Serum or plasma urea nitroge n measurement (mass/volume)Ordered By: Joao Simon on 11-02-2022 Urea nitrogen [Mass/Vol] 10 mg/dL 7-18 [facility] Thin prep Papanicolaou smear with manual screeningOrdered By: Jooa Simon on 11-02-2022 Thin prep Papanicolaou smear with manual screening 3 5-15 [facility] Basophil percentageOrdered B y: Joao Simon on 10-19-2022 Sodium [Moles/Vol] 140 mmol/L 136-145 [facility] INR in Blood by Coagulation assayOrdered By: Joao Simon on 10-19-2022 INR Coag (Bld) [Relative time] 2.8 {INR} [facility] Laboratory - CoagulationOrde red By: Joao Simon on 10-19-2022 PT Coag (PPP) [Time] 30.0 s 11.7-14.9 [facility] - CoagulationOrde red By: Joao Simon on 10-05-2022 INR Coag (Bld) [Relative time] 1.7 {INR} [facility] Comment on above: Critical Value > 4.0 Whole blood prothrombin time Ordered By: Joao Simon on 10-05-2022 PT Coag (Bld) [Time] 19.0 s 11.7-14.9 [facility] Basophil percentageOrdered B y: Joao Simon on 10-03-2022 Chloride [Moles/Vol] 103 mmol/L 98-107 [facility] Glucose [Mass/Vol] 121 mg/dL 74-106 [facility] Comment on above: Fasting Glucose resu lt from 100 to 125 mg/dL suggests IMPAIRED HOMEOSTASIS per A.D.A. criteria. Potassium [Moles/Vol] 4.3 mmol/L 3.5-5.1 [facility] Sodium [Moles/Vol] 136 mmol/L 136-145 [facility] Laboratory - Chemistry and C hemistry - challengeOrdered By: Joao Simon on 10-03-2022 CO2 [Moles/Vol] 29.0 mmol/L 21.0-32.0 [facility] Urea nitrogen/Creatinine [Mass ratio] 17.3 mg/mg 10-20 [facility] No Panel InformationOrdered By: Joao Simon on 10-03-2022 Estimated GFR (MDRD) Amer 104 mL/min >60 [facility] Comment on above: GFR Calc Estimated GFR (MDRD) Non-Af Amer 86 mL/min >60 [facility] Comment on above: Non- GFR Calc Serum or plasma calcium josué urement (mass/volume)Ordered By: Joao Simon on 10-03-2022 Calcium [Mass/Vol] 9.0 mg/dL 8.5-10.1 [facility] Serum or plasma creatinine m easurement (mass/volume)Ordered By: Joao Simon on 10-03-2022 Creatinine [Mass/Vol] 0.69 mg/dL 0.55-1.02 [facility] Comment on above: The validity of the calculated GFR & GFRAA in patients over 70 years has not been determined. Clinical correlation is essential. Serum or plasma urea nitroge n measurement (mass/volume)Ordered By: Joao Simon on 10-03-2022 Urea nitrogen [Mass/Vol] 12 mg/dL 7-18 [facility] Thin prep Papanicolaou smear with manual screeningOrdered By: Joao Simon on 10-03-2022 Thin prep Papanicolaou smear with manual screening 4 5-15 [facility] Laboratory - CoagulationOrde red By: Joao Simon on 09-28-2022 INR Coag (Bld) [Relative time] 2.2 {INR} [facility] Comment on above: Critical Value > 4.0 Whole blood prothrombin time Ordered By: Joao Simon on 09-28-2022 PT Coag (Bld) [Time] 24.4 s 11.7-14.9 [facility] Basophil percentageOrdered B y: Joao Simon on 09-20-2022 Chloride [Moles/Vol] 96 mmol/L 98-107 [facility] Glucose [Mass/Vol] 94 mg/dL 74-106 [facility] Potassium [Moles/Vol] 4.4 mmol/L 3.5-5.1 [facility] Sodium [Moles/Vol] 132 mmol/L 136-145 [facility] WBC (Bld) [#/Vol] 6.7 10*3/uL 4.4-11.0 [facility] Blood erythrocytes count (nu mber/volume)Ordered By: Joao Simon on 09-20-2022 RBC (Bld) [#/Vol] 4.21 10*6/uL 4.2-5.4 [facility] Blood hemoglobin measurement (mass/volume)Ordered By: Joao Simon on 09-20-2022 Hemoglobin (Bld) [Mass/Vol] 13.0 g/dL 12.0-15.0 [facility] Blood platelet mean volumeOr dered By: Joao Simon on 09-20-2022 Platelet mean volume (Bld) [Entitic vol] 10.2 fL 6.2-12.0 [facility] Determination of erythrocyte mean corpuscular volume (MCV)Ordered By: Joao Simon on 09-20-2022 MCV (RBC) [Entitic vol] 91.0 fL 81-99 [facility] Hematocrit Auto (Bld) [Volum e fraction]Ordered By: Joao Simon on 09-20-2022 Hematocrit (Bld) [Volume fraction] 38.3 % 37-47 [facility] Laboratory - Chemistry and C hemistry - challengeOrdered By: Joao Simon on 09-20-2022 CO2 [Moles/Vol] 33.0 mmol/L 21.0-32.0 [facility] Urea nitrogen/Creatinine [Mass ratio] 12.7 mg/mg 10-20 [facility] Laboratory - Hematology and Cell countsOrdered By: Joao Simon on 09-20-2022 Erythrocyte distribution width (RBC) [Entitic vol] 40.4 fL 35.1-43.9 [facility] Erythrocyte distribution width (RBC) [Ratio] 12.1 % 11.6-14.6 [facility] MCH (RBC) [Entitic mass] 30.9 pg 27.0-32.0 [facility] MCHC Auto (RBC) [Mass/Vol]Or dered By: Joao Simon on 04-25-2023 MCHC (RBC) [Mass/Vol] 33.9 g/dL 32-36 [facility] No Panel InformationOrdered By: Joao Simon on 09-20-2022 Estimated GFR (MDRD) Amer 89 mL/min >60 [facility] Comment on above: GFR Calc Estimated GFR (MDRD) Non-Af Amer 74 mL/min >60 [facility] Comment on above: Non- GFR Calc Platelets bldOrdered By: Brittany Simon on 09-20-2022 Platelets (Bld) [#/Vol] 229 10*3/uL 150-450 [facility] Serum or plasma calcium josué urement (mass/volume)Ordered By: Joao Simon on 09-20-2022 Calcium [Mass/Vol] 8.8 mg/dL 8.5-10.1 [facility] Serum or plasma creatinine m easurement (mass/volume)Ordered By: Joao Simon on 09-20-2022 Creatinine [Mass/Vol] 0.79 mg/dL 0.55-1.02 [facility] Comment on above: The validity of the calculated GFR & GFRAA in patients over 70 years has not been determined. Clinical correlation is essential. Serum or plasma urea nitroge n measurement (mass/volume)Ordered By: Joao Simon on 09-20-2022 Urea nitrogen [Mass/Vol] 10 mg/dL 7-18 [facility] Thin prep Papanicolaou smear with manual screeningOrdered By: Joao Simon on 09-20-2022 Thin prep Papanicolaou smear with manual screening 3 5-15 [facility] Culture, urineOrdered By: Rodrick Simon on 09-17-2022 Bacteria identified Cx Nom (U) Positive [facility] Bilirubin Test strip Ql (U)O rdered By: Joao Simon on 09-16-2022 Bilirubin Ql (U) Negative Negative [facility] Culture, urineOrdered By: Rodrick Simon on 09-16-2022 Bacteria identified Cx Nom (U) Positive [facility] Ketones Test strip Ql (U)Ord ered By: Joao Simon on 09-16-2022 Ketones Ql (U) Negative Negative [facility] Nitrite Test strip Ql (U)Ord ered By: Joao Simon on 09-16-2022 Nitrite Ql (U) Negative Negative [facility] Protein Test strip Ql (U)Ord ered By: Joao Simon on 09-16-2022 Protein Ql (U) 15 mg/dl Negative [facility] Urine blood detectionOrdered By: Joao Simon on 09-16-2022 RBC Ql (U) 10 /ul Negative [facility] Urine clarityOrdered By: Brittany Simon on 09-16-2022 Clarity (U) Sl. Cloudy Clear [facility] Urine color determinationOrd ered By: Joao Simon on 09-16-2022 Color (U) Yellow Yellow [facility] Urine glucose detectionOrder ed By: Joao Simon on 09-16-2022 Glucose Ql (U) Normal mg/dl Normal [facility] Urine leukocyte esterase det ection by dipstickOrdered By: Joao Simon on 09-16-2022 Leukocyte esterase Test strip Ql (U) 500 /ul Negative [facility] Urine pHOrdered By: Joao almeida on 09-16-2022 pH (U) 6.0 [pH] 5.0 - 8.0 [facility] Urine specific gravity measu rementOrdered By: Joao Simon on 09-16-2022 Specific gravity (U) [Rel density] 1.020 1.002-1.030 [facility] Urobilinogen Auto test strip Ql (U)Ordered By: Joao Simon on 09-16-2022 Urobilinogen Ql (U) Normal mg/dl Normal [facility] Basophil percentageOrdered B y: Hortensia Unger on 08-29-2022 Cholesterol [Mass/Vol] 126 mg/dL <200 [facility] Comment on above: <200 mg/dL Desirable 200-240 mg/dL Borderline >240 mg/dL High Risk Triglyceride [Mass/Vol] 105 mg/dL <199 [facility] Comment on above: The drugs N-Acetylcy steine and Metamizole may falsely depress this assay.Serum Triglycerides Reference Interval Normal <150 mg/dL Borderline high 150 - 199 mg/dL High 200 - 499 mg/dL Very High > or = 500 mg/dL WBC (Bld) [#/Vol] 6.4 10*3/uL 4.4-11.0 [facility] Blood erythrocytes count (nu mber/volume)Ordered By: Hortensia Unger on 08-29-2022 RBC (Bld) [#/Vol] 4.38 10*6/uL 4.2-5.4 [facility] Blood hemoglobin measurement (mass/volume)Ordered By: Hortensia Unger on 08-29-2022 Hemoglobin (Bld) [Mass/Vol] 13.4 g/dL 12.0-15.0 [facility] Blood platelet mean volumeOr dered By: Hortensia Unger on 08-29-2022 Platelet mean volume (Bld) [Entitic vol] 10.0 fL 6.2-12.0 [facility] Determination of erythrocyte mean corpuscular volume (MCV)Ordered By: Hortensia Unger on 08-29-2022 MCV (RBC) [Entitic vol] 92.9 fL 81-99 [facility] Hematocrit Auto (Bld) [Volum e fraction]Ordered By: Hortensia Unger on 08-29-2022 Hematocrit (Bld) [Volume fraction] 40.7 % 37-47 [facility] INR in Blood by Coagulation assayOrdered By: Hortensia Unger on 08-29-2022 INR Coag (Bld) [Relative time] 1.9 {INR} [facility] Laboratory - CoagulationOrde red By: Hortensia Unger on 08-29-2022 PT Coag (PPP) [Time] 21.3 s 11.7-14.9 [facility] Laboratory - Hematology and Cell countsOrdered By: Hortensia Unger on 08-29-2022 Erythrocyte distribution width (RBC) [Entitic vol] 42.1 fL 35.1-43.9 [facility] Erythrocyte distribution width (RBC) [Ratio] 12.3 % 11.6-14.6 [facility] MCH (RBC) [Entitic mass] 30.6 pg 27.0-32.0 [facility] MCHC Auto (RBC) [Mass/Vol]Or dered By: Hortensia Unger on 08-29-2022 MCHC (RBC) [Mass/Vol] 32.9 g/dL 32-36 [facility] Platelets bldOrdered By: Hortensia Unger on 08-29-2022 Platelets (Bld) [#/Vol] 215 10*3/uL 150-450 [facility] Serum or plasma cholesterol in HDL measurement (mass/volume)Ordered By: Hortensia Unger on 08-29-2022 Cholesterol in HDL [Mass/Vol] 48 mg/dL >40 [facility] Comment on above: The drugs N-Acetylcy steine and Metamizole may falsely depress this assay. Reference Range HDL <40 mg/dL Low HDL Cholesterol HDL >or= 60 mg/dL High HDL Cholesterol Serum or plasma cholesterol in VLDL measurement (mass/volume)Ordered By: Hortensia Unger on 08-29-2022 Cholesterol in VLDL [Mass/Vol] 21 mg/dL 5-40 [facility] Serum or plasma low density lipoprotein (LDL) cholesterol measurement (mass/volume)Ordered By: Hortensia Unger on 08-29-2022 Cholesterol in LDL [Mass/Vol] 57 mg/dL 0-130 [facility] Basophil percentageOrdered B y: Hortensia Unger on 08-08-2022 Sodium [Moles/Vol] 137 mmol/L 136-145 [facility] Basophil percentageOrdered B y: Hortensia Unger on 07-28-2022 Bilirubin [Mass/Vol] 0.30 mg/dL 0.20-1.00 [facility] Comment on above: For patients on eltr ombopag therapy, use of Dimension Virgin TBIL is not recommended. Chloride [Moles/Vol] 95 mmol/L 98-107 [facility] Glucose [Mass/Vol] 118 mg/dL 74-106 [facility] Comment on above: Fasting Glucose resu lt from 100 to 125 mg/dL suggests IMPAIRED HOMEOSTASIS per A.D.A. criteria. Potassium [Moles/Vol] 3.5 mmol/L 3.5-5.1 [facility] Protein [Mass/Vol] 7.0 g/dL 6.4-8.2 [facility] Sodium [Moles/Vol] 135 mmol/L 136-145 [facility] WBC (Bld) [#/Vol] 6.4 10*3/uL 4.4-11.0 [facility] Blood erythrocytes count (nu mber/volume)Ordered By: Hortensia Unger on 07-28-2022 RBC (Bld) [#/Vol] 4.56 10*6/uL 4.2-5.4 [facility] Blood hemoglobin measurement (mass/volume)Ordered By: Hortensia Unger on 07-28-2022 Hemoglobin (Bld) [Mass/Vol] 14.0 g/dL 12.0-15.0 [facility] Blood platelet mean volumeOr dered By: Hortensia Unger on 07-28-2022 Platelet mean volume (Bld) [Entitic vol] 10.4 fL 6.2-12.0 [facility] Determination of erythrocyte mean corpuscular volume (MCV)Ordered By: Hortensia Unger on 07-28-2022 MCV (RBC) [Entitic vol] 93.9 fL 81-99 [facility] Hematocrit Auto (Bld) [Volum e fraction]Ordered By: Hortensia Unger on 07-28-2022 Hematocrit (Bld) [Volume fraction] 42.8 % 37-47 [facility] INR in Blood by Coagulation assayOrdered By: Hortensia Unger on 07-28-2022 INR Coag (Bld) [Relative time] 1.7 {INR} [facility] Laboratory - Chemistry and C hemistry - challengeOrdered By: Hortensia Unger on 07-28-2022 ALP [Catalytic activity/Vol] 65 U/L 45-117 [facility] ALT [Catalytic activity/Vol] 25 U/L 13-56 [facility] CO2 [Moles/Vol] 31.0 mmol/L 21.0-32.0 [facility] Globulin (S) [Mass/Vol] 3.7 g/dL 2.2-4.2 [facility] Urea nitrogen/Creatinine [Mass ratio] 14.2 mg/mg 10-20 [facility] Laboratory - CoagulationOrde red By: Hortensia Unger on 07-28-2022 PT Coag (PPP) [Time] 19.5 s 11.7-14.9 [facility] Laboratory - Hematology and Cell countsOrdered By: Hortensia Unger on 07-28-2022 Erythrocyte distribution width (RBC) [Entitic vol] 42.4 fL 35.1-43.9 [facility] Erythrocyte distribution width (RBC) [Ratio] 12.2 % 11.6-14.6 [facility] MCH (RBC) [Entitic mass] 30.7 pg 27.0-32.0 [facility] MCHC Auto (RBC) [Mass/Vol]Or dered By: Hortensia Unger on 07-28-2022 MCHC (RBC) [Mass/Vol] 32.7 g/dL 32-36 [facility] No Panel InformationOrdered By: Hortensia Unger on 07-28-2022 Estimated GFR (MDRD) Amer 101 mL/min >60 [facility] Comment on above: GFR Calc Estimated GFR (MDRD) Non-Af Amer 84 mL/min >60 [facility] Comment on above: Non- GFR Calc Platelets bldOrdered By: Hortensia Unger on 07-28-2022 Platelets (Bld) [#/Vol] 234 10*3/uL 150-450 [facility] Serum or plasma albumin josué urement (mass/volume)Ordered By: Hortensia Unger on 07-28-2022 Albumin [Mass/Vol] 3.3 g/dL 3.2-5.0 [facility] Serum or plasma albumin/glob ulin mass ratioOrdered By: Hortensia Unger on 07-28-2022 Albumin/Globulin [Mass ratio] 0.9 {ratio} 0.9-2.4 [facility] Serum or plasma calcium josué urement (mass/volume)Ordered By: Hortensia Unger on 07-28-2022 Calcium [Mass/Vol] 8.7 mg/dL 8.5-10.1 [facility] Serum or plasma creatinine m easurement (mass/volume)Ordered By: Hortensia Unger on 07-28-2022 Creatinine [Mass/Vol] 0.70 mg/dL 0.55-1.02 [facility] Comment on above: The validity of the calculated GFR & GFRAA in patients over 70 years has not been determined. Clinical correlation is essential. Serum or plasma urea nitroge n measurement (mass/volume)Ordered By: Hortensia Unger on 07-28-2022 Urea nitrogen [Mass/Vol] 10 mg/dL 7-18 [facility] Thin prep Papanicolaou smear with manual screeningOrdered By: Hortensia Unger on 07-28-2022 Thin prep Papanicolaou smear with manual screening 23 U/L 15-37 [facility] Thin prep Papanicolaou smear with manual screening 9 5-15 [facility] Basophil percentageOrdered B y: Hortensia Unger on 07-11-2022 Bilirubin [Mass/Vol] 0.50 mg/dL 0.20-1.00 [facility] Comment on above: For patients on eltr ombopag therapy, use of Dimension Virgin TBIL is not recommended. Chloride [Moles/Vol] 100 mmol/L 98-107 [facility] Glucose [Mass/Vol] 120 mg/dL 74-106 [facility] Comment on above: Fasting Glucose resu lt from 100 to 125 mg/dL suggests IMPAIRED HOMEOSTASIS per A.D.A. criteria. Potassium [Moles/Vol] 3.8 mmol/L 3.5-5.1 [facility] Protein [Mass/Vol] 7.0 g/dL 6.4-8.2 [facility] Sodium [Moles/Vol] 136 mmol/L 136-145 [facility] WBC (Bld) [#/Vol] 6.2 10*3/uL 4.4-11.0 [facility] Blood erythrocytes count (nu mber/volume)Ordered By: Hortensia Unger on 07-11-2022 RBC (Bld) [#/Vol] 4.39 10*6/uL 4.2-5.4 [facility] Blood hemoglobin measurement (mass/volume)Ordered By: Hortensia Unger on 07-11-2022 Hemoglobin (Bld) [Mass/Vol] 13.4 g/dL 12.0-15.0 [facility] Blood platelet mean volumeOr dered By: Hortensia Unger on 07-11-2022 Platelet mean volume (Bld) [Entitic vol] 10.5 fL 6.2-12.0 [facility] Determination of erythrocyte mean corpuscular volume (MCV)Ordered By: Hortensia Unger on 07-11-2022 MCV (RBC) [Entitic vol] 93.2 fL 81-99 [facility] Hematocrit Auto (Bld) [Volum e fraction]Ordered By: Hortensia Unger on 07-11-2022 Hematocrit (Bld) [Volume fraction] 40.9 % 37-47 [facility] Laboratory - Chemistry and C hemistry - challengeOrdered By: Hortensia Unger on 07-11-2022 ALP [Catalytic activity/Vol] 61 U/L 45-117 [facility] ALT [Catalytic activity/Vol] 21 U/L 13-56 [facility] CO2 [Moles/Vol] 30.0 mmol/L 21.0-32.0 [facility] Globulin (S) [Mass/Vol] 3.6 g/dL 2.2-4.2 [facility] Urea nitrogen/Creatinine [Mass ratio] 13.6 mg/mg 10-20 [facility] Laboratory - Hematology and Cell countsOrdered By: Hortensia Unger on 07-11-2022 Erythrocyte distribution width (RBC) [Entitic vol] 42.7 fL 35.1-43.9 [facility] Erythrocyte distribution width (RBC) [Ratio] 12.5 % 11.6-14.6 [facility] MCH (RBC) [Entitic mass] 30.5 pg 27.0-32.0 [facility] MCHC Auto (RBC) [Mass/Vol]Or dered By: Hortensia Unger on 07-11-2022 MCHC (RBC) [Mass/Vol] 32.8 g/dL 32-36 [facility] No Panel InformationOrdered By: Hortensia Unger on 07-11-2022 Estimated GFR (MDRD) Amer 87 mL/min >60 [facility] Comment on above: GFR Calc Estimated GFR (MDRD) Non-Af Amer 72 mL/min >60 [facility] Comment on above: Non- GFR Calc Platelets bldOrdered By: Hortensia Unger on 07-11-2022 Platelets (Bld) [#/Vol] 224 10*3/uL 150-450 [facility] Serum or plasma albumin josué urement (mass/volume)Ordered By: Hortensia Unger on 07-11-2022 Albumin [Mass/Vol] 3.4 g/dL 3.2-5.0 [facility] Serum or plasma albumin/glob ulin mass ratioOrdered By: Hortensia Unger on 07-11-2022 Albumin/Globulin [Mass ratio] 0.9 {ratio} 0.9-2.4 [facility] Serum or plasma calcium josué urement (mass/volume)Ordered By: Hortensia Unger on 07-11-2022 Calcium [Mass/Vol] 8.9 mg/dL 8.5-10.1 [facility] Serum or plasma creatinine m easurement (mass/volume)Ordered By: Hortensia Unger on 07-11-2022 Creatinine [Mass/Vol] 0.81 mg/dL 0.55-1.02 [facility] Comment on above: The validity of the calculated GFR & GFRAA in patients over 70 years has not been determined. Clinical correlation is essential. Serum or plasma urea nitroge n measurement (mass/volume)Ordered By: Hortensia Unger on 07-11-2022 Urea nitrogen [Mass/Vol] 11 mg/dL 7-18 [facility] Thin prep Papanicolaou smear with manual screeningOrdered By: Hortensia Unger on 07-11-2022 Thin prep Papanicolaou smear with manual screening 23 U/L 15-37 [facility] Thin prep Papanicolaou smear with manual screening 6 5-15 [facility] Basophil percentageOrdered B y: Hortensia Unger on 07-01-2022 Bilirubin [Mass/Vol] 0.40 mg/dL 0.20-1.00 [facility] Comment on above: For patients on eltr ombopag therapy, use of Dimension Virgin TBIL is not recommended. Chloride [Moles/Vol] 101 mmol/L 98-107 [facility] Glucose [Mass/Vol] 151 mg/dL 74-106 [facility] Comment on above: Fasting Glucose resu lt greater than or equal to 126 mg/dL suggests DIABETES MELLITUS per A.D.A. criteria. Potassium [Moles/Vol] 4.2 mmol/L 3.5-5.1 [facility] Protein [Mass/Vol] 6.3 g/dL 6.4-8.2 [facility] Sodium [Moles/Vol] 137 mmol/L 136-145 [facility] WBC (Bld) [#/Vol] 5.1 10*3/uL 4.4-11.0 [facility] Blood erythrocytes count (nu mber/volume)Ordered By: Hortensia Unger on 07-01-2022 RBC (Bld) [#/Vol] 4.03 10*6/uL 4.2-5.4 [facility] Blood hemoglobin measurement (mass/volume)Ordered By: Hortensia Unger on 07-01-2022 Hemoglobin (Bld) [Mass/Vol] 12.7 g/dL 12.0-15.0 [facility] Blood platelet mean volumeOr dered By: Hortensia Unger on 07-01-2022 Platelet mean volume (Bld) [Entitic vol] 10.1 fL 6.2-12.0 [facility] Determination of erythrocyte mean corpuscular volume (MCV)Ordered By: Hortensia Unger on 07-01-2022 MCV (RBC) [Entitic vol] 92.1 fL 81-99 [facility] Hematocrit Auto (Bld) [Volum e fraction]Ordered By: Hortensia Unger on 07-01-2022 Hematocrit (Bld) [Volume fraction] 37.1 % 37-47 [facility] INR in Blood by Coagulation assayOrdered By: Hortensia Unger on 07-01-2022 INR Coag (Bld) [Relative time] 2.0 {INR} [facility] Laboratory - Chemistry and C hemistry - challengeOrdered By: Hortensia Unger on 07-01-2022 ALP [Catalytic activity/Vol] 55 U/L 45-117 [facility] ALT [Catalytic activity/Vol] 20 U/L 13-56 [facility] CO2 [Moles/Vol] 30.0 mmol/L 21.0-32.0 [facility] Globulin (S) [Mass/Vol] 3.3 g/dL 2.2-4.2 [facility] Urea nitrogen/Creatinine [Mass ratio] 21.0 mg/mg 10-20 [facility] [facility] CoagulationOrde red By: Hortensia Unger on 07-01-2022 PT Coag (PPP) [Time] 22.0 s 11.7-14.9 [facility] - Hematology and Cell countsOrdered By: Hortensia Unger on 07-01-2022 Erythrocyte distribution width (RBC) [Entitic vol] 42.5 fL 35.1-43.9 [facility] Erythrocyte distribution width (RBC) [Ratio] 12.5 % 11.6-14.6 [facility] MCH (RBC) [Entitic mass] 31.5 pg 27.0-32.0 [facility] MCHC Auto (RBC) [Mass/Vol]Or dered By: Hortensia Unger on 07-01-2022 MCHC (RBC) [Mass/Vol] 34.2 g/dL 32-36 [facility] No Panel InformationOrdered By: Hortensia Unger on 07-01-2022 Estimated GFR (MDRD) Amer 108 mL/min >60 [facility] Comment on above: GFR Calc Estimated GFR (MDRD) Non-Af Amer 89 mL/min >60 [facility] Comment on above: Non- GFR Calc Platelets bldOrdered By: Hortensia Unger on 07-01-2022 Platelets (Bld) [#/Vol] 208 10*3/uL 150-450 [facility] Serum or plasma albumin josué urement (mass/volume)Ordered By: Hortensia Unger on 07-01-2022 Albumin [Mass/Vol] 3.0 g/dL 3.2-5.0 [facility] Serum or plasma albumin/glob ulin mass ratioOrdered By: Hortensia Unger on 07-01-2022 Albumin/Globulin [Mass ratio] 0.9 {ratio} 0.9-2.4 [facility] Serum or plasma calcium josué urement (mass/volume)Ordered By: Hortensia Unger on 07-01-2022 Calcium [Mass/Vol] 8.6 mg/dL 8.5-10.1 [facility] Serum or plasma creatinine m easurement (mass/volume)Ordered By: Hortensia Unger on 07-01-2022 Creatinine [Mass/Vol] 0.67 mg/dL 0.55-1.02 [facility] Comment on above: The validity of the calculated GFR & GFRAA in patients over 70 years has not been determined. Clinical correlation is essential. Serum or plasma urea nitroge n measurement (mass/volume)Ordered By: Hortensia Unger on 07-01-2022 Urea nitrogen [Mass/Vol] 14 mg/dL 7-18 [facility] Thin prep Papanicolaou smear with manual screeningOrdered By: Hortensia Unger on 07-01-2022 Thin prep Papanicolaou smear with manual screening 22 U/L 15-37 [facility] Thin prep Papanicolaou smear with manual screening 6 5-15 [facility] Basophil percentageOrdered B y: Dr. Stephens on 06-17-2022 Cholesterol [Mass/Vol] 112 mg/dL <200 [facility] Comment on above: <200 mg/dL Desirable 200-240 mg/dL Borderline >240 mg/dL High Risk Triglyceride [Mass/Vol] 78 mg/dL <199 [facility] Comment on above: The drugs N-Acetylcy steine and Metamizole may falsely depress this assay.Serum Triglycerides Reference Interval Normal <150 mg/dL Borderline high 150 - 199 mg/dL High 200 - 499 mg/dL Very High > or = 500 mg/dL INR in Blood by Coagulation assayOrdered By: Dr. Stephens on 06-17-2022 INR Coag (Bld) [Relative time] 1.8 {INR} [facility] Laboratory - CoagulationOrde red By: Dr. Stephens on 06-17-2022 PT Coag (PPP) [Time] 20.2 s 11.7-14.9 [facility] Serum or plasma cholesterol in HDL measurement (mass/volume)Ordered By: Dr. Stephens on 06-17-2022 Cholesterol in HDL [Mass/Vol] 45 mg/dL >40 [facility] Comment on above: The drugs N-Acetylcy steine and Metamizole may falsely depress this assay. Reference Range HDL <40 mg/dL Low HDL Cholesterol HDL >or= 60 mg/dL High HDL Cholesterol Serum or plasma cholesterol in VLDL measurement (mass/volume)Ordered By: Dr. Stephens on 06-17-2022 Cholesterol in VLDL [Mass/Vol] 16 mg/dL 5-40 [facility] Serum or plasma low density lipoprotein (LDL) cholesterol measurement (mass/volume)Ordered By: Dr. Stephens on 06-17-2022 Cholesterol in LDL [Mass/Vol] 51 mg/dL 0-130 [facility] Absolute lymphocyte countOrd ered By: Dr. Davis on 06-16-2022 Lymphocytes Auto (Unsp spec) [#/Vol] 1.94 10*3/uL 0.83-4.51 [facility] Basophil percentageOrdered B y: Dr. Davis on 06-16-2022 Basophils/100 WBC (Bld) 0.8 % 0-1 [facility] Chloride [Moles/Vol] 99 mmol/L 98-107 [facility] Eosinophils/100 WBC (Bld) 3.9 % 0-5 [facility] Glucose [Mass/Vol] 98 mg/dL 74-106 [facility] Neutrophils (Bld) [#/Vol] 3.6 10*3/uL 2.0-7.7 [facility] Neutrophils/100 WBC (Bld) 56.3 % 47-70 [facility] Potassium [Moles/Vol] 4.2 mmol/L 3.5-5.1 [facility] Sodium [Moles/Vol] 135 mmol/L 136-145 [facility] WBC (Bld) [#/Vol] 6.4 10*3/uL 4.4-11.0 [facility] Blood erythrocytes count (nu mber/volume)Ordered By: Dr. Davis on 06-16-2022 RBC (Bld) [#/Vol] 4.32 10*6/uL 4.2-5.4 [facility] Blood hemoglobin measurement (mass/volume)Ordered By: Dr. Davis on 06-16-2022 Hemoglobin (Bld) [Mass/Vol] 13.1 g/dL 12.0-15.0 [facility] Blood lymphocytes/100 leukoc ytesOrdered By: Dr. Davis on 06-16-2022 Lymphocytes/100 WBC (Bld) 30.6 % 19-41 [facility] Blood monocytes/100 leukocyt esOrdered By: Dr. Davis on 06-16-2022 Monocytes/100 WBC (Bld) 8.2 % 0-10 [facility] Blood platelet mean volumeOr dered By: Dr. Davis on 06-16-2022 Platelet mean volume (Bld) [Entitic vol] 10.1 fL 6.2-12.0 [facility] Determination of erythrocyte mean corpuscular volume (MCV)Ordered By: Dr. Davis on 06-16-2022 MCV (RBC) [Entitic vol] 91.4 fL 81-99 [facility] Hematocrit Auto (Bld) [Volum e fraction]Ordered By: Dr. Davis on 06-16-2022 Hematocrit (Bld) [Volume fraction] 39.5 % 37-47 [facility] INR in Blood by Coagulation assayOrdered By: Dr. Davis on 06-16-2022 INR Coag (Bld) [Relative time] 1.9 {INR} [facility] Laboratory - Chemistry and C hemistry - challengeOrdered By: Dr. Davis on 06-16-2022 CO2 [Moles/Vol] 32.0 mmol/L 21.0-32.0 [facility] Urea nitrogen/Creatinine [Mass ratio] 16.8 mg/mg 10-20 [facility] Laboratory - CoagulationOrde red By: Dr. Davis on 06-16-2022 aPTT Coag (Bld) [Time] 30.2 s 24.1-36.2 [facility] PT Coag (PPP) [Time] 21.0 s 11.7-14.9 [facility] - Hematology and Cell countsOrdered By: Dr. Davis on 06-16-2022 Erythrocyte distribution width (RBC) [Entitic vol] 41.0 fL 35.1-43.9 [facility] Erythrocyte distribution width (RBC) [Ratio] 12.3 % 11.6-14.6 [facility] Immature granulocytes/100 WBC (Bld) 0.200 % 0.0-0.9 [facility] Comment on above: IG% - Immature Granu locytes (promyelocytes, myelocytes and metamyelocytes) > 1% indicates that a LEFT SHIFT is Present. MCH (RBC) [Entitic mass] 30.3 pg 27.0-32.0 [facility] Nucleated RBC/100 WBC (Bld) [Ratio] 0 % 0-5 [facility] MCHC Auto (RBC) [Mass/Vol]Or dered By: Dr. Davis on 06-16-2022 MCHC (RBC) [Mass/Vol] 33.2 g/dL 32-36 [facility] No Panel InformationOrdered By: Dr. Davis on 06-16-2022 Estimated Creatinine Clearance Calc 31.60 ml/min [facility] Estimated GFR (MDRD) Amer 100 mL/min >60 [facility] Comment on above: GFR Calc Estimated GFR (MDRD) Non-Af Amer 83 mL/min >60 [facility] Comment on above: Non- GFR Calc Troponin I High Sensitivity 9 pg/mL 3.0-54.0 [facility] Comment on above: Please Note: New Amber t Units and Gender Specific Reference Ranges. For more information see Policy Stat Procedure [place] High Sensitivity Troponin (TNIH) and attachments. Platelets bldOrdered By: Dr. Davis on 06-16-2022 Platelets (Bld) [#/Vol] 233 10*3/uL 150-450 [facility] Serum or plasma calcium josué urement (mass/volume)Ordered By: Dr. Davis on 06-16-2022 Calcium [Mass/Vol] 8.9 mg/dL 8.5-10.1 [facility] Serum or plasma creatinine m easurement (mass/volume)Ordered By: Dr. Davis on 06-16-2022 Creatinine [Mass/Vol] 0.72 mg/dL 0.55-1.02 [facility] Comment on above: The validity of the calculated GFR & GFRAA in patients over 70 years has not been determined. Clinical correlation is essential. Serum or plasma urea nitroge n measurement (mass/volume)Ordered By: Dr. Davis on 06-16-2022 Urea nitrogen [Mass/Vol] 12 mg/dL 7-18 [facility] Thin prep Papanicolaou smear with manual screeningOrdered By: Dr. Davis on 06-16-2022 Thin prep Papanicolaou smear with manual screening 4 5-15 [facility] Basophil percentageOrdered B y: Hortensia Unger on 06-06-2022 Bilirubin [Mass/Vol] 0.30 mg/dL 0.20-1.00 [facility] Comment on above: For patients on eltr ombopag therapy, use of Dimension [place] TBIL is not recommended. Chloride [Moles/Vol] 101 mmol/L 98-107 [facility] Cholesterol [Mass/Vol] 111 mg/dL <200 [facility] Comment on above: <200 mg/dL Desirable 200-240 mg/dL Borderline >240 mg/dL High Risk Glucose [Mass/Vol] 93 mg/dL 74-106 [facility] Potassium [Moles/Vol] 4.0 mmol/L 3.5-5.1 [facility] Protein [Mass/Vol] 6.0 g/dL 6.4-8.2 [facility] Sodium [Moles/Vol] 140 mmol/L 136-145 [facility] Triglyceride [Mass/Vol] 51 mg/dL <199 [facility] Comment on above: The drugs N-Acetylcy steine and Metamizole may falsely depress this assay.Serum Triglycerides Reference Interval Normal <150 mg/dL Borderline high 150 - 199 mg/dL High 200 - 499 mg/dL Very High > or = 500 mg/dL WBC (Bld) [#/Vol] 5.9 10*3/uL 4.4-11.0 [facility] Blood erythrocytes count (nu mber/volume)Ordered By: Hortensia Unger on 06-06-2022 RBC (Bld) [#/Vol] 3.99 10*6/uL 4.2-5.4 [facility] Blood hemoglobin measurement (mass/volume)Ordered By: Hortensia Unger on 06-06-2022 Hemoglobin (Bld) [Mass/Vol] 12.2 g/dL 12.0-15.0 [facility] Blood platelet mean volumeOr dered By: Hortensia Unger on 06-06-2022 Platelet mean volume (Bld) [Entitic vol] 10.5 fL 6.2-12.0 [facility] Determination of erythrocyte mean corpuscular volume (MCV)Ordered By: Hortensia Unger on 06-06-2022 MCV (RBC) [Entitic vol] 92.7 fL 81-99 [facility] Hematocrit Auto (Bld) [Volum e fraction]Ordered By: Hortensia Unger on 06-06-2022 Hematocrit (Bld) [Volume fraction] 37.0 % 37-47 [facility] INR in Blood by Coagulation assayOrdered By: Hortensia Unger on 06-06-2022 INR Coag (Bld) [Relative time] 2.1 {INR} [facility] Laboratory - Chemistry and C hemistry - challengeOrdered By: Hortenisa Unger on 06-06-2022 ALP [Catalytic activity/Vol] 54 U/L 45-117 [facility] ALT [Catalytic activity/Vol] 25 U/L 13-56 [facility] CO2 [Moles/Vol] 31.0 mmol/L 21.0-32.0 [facility] Globulin (S) [Mass/Vol] 3.1 g/dL 2.2-4.2 [facility] Urea nitrogen/Creatinine [Mass ratio] 19.7 mg/mg 10-20 [facility] Laboratory - CoagulationOrde red By: Hortensia Unger on 06-06-2022 PT Coag (PPP) [Time] 23.1 s 11.7-14.9 [facility] - Hematology and Cell countsOrdered By: Hortensia Unger on 06-06-2022 Erythrocyte distribution width (RBC) [Entitic vol] 43.4 fL 35.1-43.9 [facility] Erythrocyte distribution width (RBC) [Ratio] 12.7 % 11.6-14.6 [facility] MCH (RBC) [Entitic mass] 30.6 pg 27.0-32.0 [facility] MCHC Auto (RBC) [Mass/Vol]Or dered By: Hortensia Unger on 06-06-2022 MCHC (RBC) [Mass/Vol] 33.0 g/dL 32-36 [facility] No Panel InformationOrdered By: Hortensia Unger on 06-06-2022 Estimated GFR (MDRD) Amer 93 mL/min >60 [facility] Comment on above: GFR Calc Estimated GFR (MDRD) Non-Af Amer 77 mL/min >60 [facility] Comment on above: Non- GFR Calc Platelets bldOrdered By: Hortensia Unger on 06-06-2022 Platelets (Bld) [#/Vol] 214 10*3/uL 150-450 [facility] Serum or plasma albumin josué urement (mass/volume)Ordered By: Hortensia Unger on 06-06-2022 Albumin [Mass/Vol] 2.9 g/dL 3.2-5.0 [facility] Serum or plasma albumin/glob ulin mass ratioOrdered By: Hortensia Unger on 06-06-2022 Albumin/Globulin [Mass ratio] 0.9 {ratio} 0.9-2.4 [facility] Serum or plasma calcium josué urement (mass/volume)Ordered By: Hortensia Unger on 01-09-2023 Calcium [Mass/Vol] 8.3 mg/dL 8.5-10.1 [facility] Serum or plasma cholesterol in HDL measurement (mass/volume)Ordered By: Hortensia Unger on 06-06-2022 Cholesterol in HDL [Mass/Vol] 47 mg/dL >40 [facility] Comment on above: The drugs N-Acetylcy steine and Metamizole may falsely depress this assay. Reference Range HDL <40 mg/dL Low HDL Cholesterol HDL >or= 60 mg/dL High HDL Cholesterol Serum or plasma cholesterol in VLDL measurement (mass/volume)Ordered By: Hortensia Unger on 06-06-2022 Cholesterol in VLDL [Mass/Vol] 10 mg/dL 5-40 [facility] Serum or plasma creatinine m easurement (mass/volume)Ordered By: Hortensia Unger on 06-06-2022 Creatinine [Mass/Vol] 0.76 mg/dL 0.55-1.02 [facility] Comment on above: The validity of the calculated GFR & GFRAA in patients over 70 years has not been determined. Clinical correlation is essential. Serum or plasma low density lipoprotein (LDL) cholesterol measurement (mass/volume)Ordered By: Hortensia Unger on 06-06-2022 Cholesterol in LDL [Mass/Vol] 54 mg/dL 0-130 [facility] Serum or plasma urea nitroge n measurement (mass/volume)Ordered By: Hortensia Unger on 06-06-2022 Urea nitrogen [Mass/Vol] 15 mg/dL 7-18 [facility] Thin prep Papanicolaou smear with manual screeningOrdered By: Hortensia Unger on 06-06-2022 Thin prep Papanicolaou smear with manual screening 21 U/L 15-37 [facility] Thin prep Papanicolaou smear with manual screening 8 5-15 [facility] Basophil percentageOrdered B y: Hortensia Unger on 05-09-2022 Bilirubin [Mass/Vol] 0.50 mg/dL 0.20-1.00 [facility] Comment on above: For patients on eltr ombopag therapy, use of Dimension [place] TBIL is not recommended. Chloride [Moles/Vol] 99 mmol/L 98-107 [facility] Glucose [Mass/Vol] 115 mg/dL 74-106 [facility] Comment on above: Fasting Glucose resu lt from 100 to 125 mg/dL suggests IMPAIRED HOMEOSTASIS per A.D.A. criteria. Potassium [Moles/Vol] 4.1 mmol/L 3.5-5.1 [facility] Protein [Mass/Vol] 6.9 g/dL 6.4-8.2 [facility] Sodium [Moles/Vol] 135 mmol/L 136-145 [facility] WBC (Bld) [#/Vol] 5.8 10*3/uL 4.4-11.0 [facility] Blood erythrocytes count (nu mber/volume)Ordered By: Hortensia Unger on 05-09-2022 RBC (Bld) [#/Vol] 4.41 10*6/uL 4.2-5.4 [facility] Blood hemoglobin measurement (mass/volume)Ordered By: Hortensia Unger on 05-09-2022 Hemoglobin (Bld) [Mass/Vol] 13.4 g/dL 12.0-15.0 [facility] Blood platelet mean volumeOr dered By: Hortensia Unger on 05-09-2022 Platelet mean volume (Bld) [Entitic vol] 10.5 fL 6.2-12.0 [facility] Determination of erythrocyte mean corpuscular volume (MCV)Ordered By: Hortensia Unger on 05-09-2022 MCV (RBC) [Entitic vol] 93.0 fL 81-99 [facility] Hematocrit Auto (Bld) [Volum e fraction]Ordered By: Hortensia Unger on 05-09-2022 Hematocrit (Bld) [Volume fraction] 41.0 % 37-47 [facility] INR in Blood by Coagulation assayOrdered By: Hortensia Unger on 05-09-2022 INR Coag (Bld) [Relative time] 1.8 {INR} [facility] Laboratory - Chemistry and C hemistry - challengeOrdered By: Hortensia Unger on 05-09-2022 ALP [Catalytic activity/Vol] 61 U/L 45-117 [facility] ALT [Catalytic activity/Vol] 29 U/L 13-56 [facility] CO2 [Moles/Vol] 32.0 mmol/L 21.0-32.0 [facility] Globulin (S) [Mass/Vol] 3.7 g/dL 2.2-4.2 [facility] Urea nitrogen/Creatinine [Mass ratio] 15.6 mg/mg 10-20 [facility] Laboratory - CoagulationOrde red By: Hortensia Unger on 05-09-2022 PT Coag (PPP) [Time] 20.3 s 11.7-14.9 [facility] - Hematology and Cell countsOrdered By: Hortensia Unger on 05-09-2022 Erythrocyte distribution width (RBC) [Entitic vol] 42.8 fL 35.1-43.9 [facility] Erythrocyte distribution width (RBC) [Ratio] 12.4 % 11.6-14.6 [facility] MCH (RBC) [Entitic mass] 30.4 pg 27.0-32.0 [facility] MCHC Auto (RBC) [Mass/Vol]Or dered By: Hortensia Unger on 05-09-2022 MCHC (RBC) [Mass/Vol] 32.7 g/dL 32-36 [facility] No Panel InformationOrdered By: Hortensia Unger on 05-09-2022 Estimated GFR (MDRD) Amer 92 mL/min >60 [facility] Comment on above: GFR Calc Estimated GFR (MDRD) Non-Af Amer 76 mL/min >60 [facility] Comment on above: Non- GFR Calc Platelets bldOrdered By: Hortensia Unger on 05-09-2022 Platelets (Bld) [#/Vol] 257 10*3/uL 150-450 [facility] Serum or plasma albumin josué urement (mass/volume)Ordered By: Hortensia Unger on 05-09-2022 Albumin [Mass/Vol] 3.2 g/dL 3.2-5.0 [facility] Serum or plasma albumin/glob ulin mass ratioOrdered By: Hortensia Unger on 05-09-2022 Albumin/Globulin [Mass ratio] 0.9 {ratio} 0.9-2.4 [facility] Serum or plasma calcium josué urement (mass/volume)Ordered By: Hortensia Unger on 05-09-2022 Calcium [Mass/Vol] 8.8 mg/dL 8.5-10.1 [facility] Serum or plasma creatinine m easurement (mass/volume)Ordered By: Hortensia Unger on 05-09-2022 Creatinine [Mass/Vol] 0.77 mg/dL 0.55-1.02 [facility] Comment on above: The validity of the calculated GFR & GFRAA in patients over 70 years has not been determined. Clinical correlation is essential. Serum or plasma urea nitroge n measurement (mass/volume)Ordered By: Hortensia Unger on 05-09-2022 Urea nitrogen [Mass/Vol] 12 mg/dL 7-18 [facility] Thin prep Papanicolaou smear with manual screeningOrdered By: Hortensia Unger on 05-09-2022 Thin prep Papanicolaou smear with manual screening 23 U/L 15-37 [facility] Thin prep Papanicolaou smear with manual screening 4 5-15 [facility] Basophil percentageOrdered B y: Hortensia Unger on 04-07-2022 Bilirubin [Mass/Vol] 0.50 mg/dL 0.20-1.00 [facility] Comment on above: For patients on eltr ombopag therapy, use of Dimension [place] TBIL is not recommended. Chloride [Moles/Vol] 99 mmol/L 98-107 [facility] Glucose [Mass/Vol] 100 mg/dL 74-106 [facility] Comment on above: Fasting Glucose resu lt from 100 to 125 mg/dL suggests IMPAIRED HOMEOSTASIS per A.D.A. criteria. Potassium [Moles/Vol] 3.8 mmol/L 3.5-5.1 [facility] Protein [Mass/Vol] 6.4 g/dL 6.4-8.2 [facility] Sodium [Moles/Vol] 136 mmol/L 136-145 [facility] WBC (Bld) [#/Vol] 5.5 10*3/uL 4.4-11.0 [facility] Blood erythrocytes count (nu mber/volume)Ordered By: Hortensia Unger on 04-07-2022 RBC (Bld) [#/Vol] 4.14 10*6/uL 4.2-5.4 [facility] Blood hemoglobin measurement (mass/volume)Ordered By: Hortensia Unger on 04-07-2022 Hemoglobin (Bld) [Mass/Vol] 13.0 g/dL 12.0-15.0 [facility] Blood platelet mean volumeOr dered By: Hortensia Unger on 04-07-2022 Platelet mean volume (Bld) [Entitic vol] 10.0 fL 6.2-12.0 [facility] Determination of erythrocyte mean corpuscular volume (MCV)Ordered By: Hortensia Unger on 04-07-2022 MCV (RBC) [Entitic vol] 92.0 fL 81-99 [facility] Hematocrit Auto (Bld) [Volum e fraction]Ordered By: Hortensia Unger on 04-07-2022 Hematocrit (Bld) [Volume fraction] 38.1 % 37-47 [facility] INR in Blood by Coagulation assayOrdered By: Hortensia Unger on 04-07-2022 INR Coag (Bld) [Relative time] 2.0 {INR} [facility] Laboratory - Chemistry and C hemistry - challengeOrdered By: Hortensia Unger on 04-07-2022 ALP [Catalytic activity/Vol] 58 U/L 45-117 [facility] ALT [Catalytic activity/Vol] 18 U/L 13-56 [facility] CO2 [Moles/Vol] 29.0 mmol/L 21.0-32.0 [facility] Globulin (S) [Mass/Vol] 3.4 g/dL 2.2-4.2 [facility] Urea nitrogen/Creatinine [Mass ratio] 13.1 mg/mg 10-20 [facility] Laboratory - CoagulationOrde red By: Hortensia Unger on 04-07-2022 PT Coag (PPP) [Time] 22.6 s 11.7-14.9 [facility] - Hematology and Cell countsOrdered By: Hortensia Unger on 04-07-2022 Erythrocyte distribution width (RBC) [Entitic vol] 42.2 fL 35.1-43.9 [facility] Erythrocyte distribution width (RBC) [Ratio] 12.6 % 11.6-14.6 [facility] MCH (RBC) [Entitic mass] 31.4 pg 27.0-32.0 [facility] MCHC Auto (RBC) [Mass/Vol]Or dered By: Hortensia Unger on 04-07-2022 MCHC (RBC) [Mass/Vol] 34.1 g/dL 32-36 [facility] No Panel InformationOrdered By: Hortensia Unger on 04-07-2022 Estimated GFR (MDRD) Amer 104 mL/min >60 [facility] Comment on above: GFR Calc Estimated GFR (MDRD) Non-Af Amer 86 mL/min >60 [facility] Comment on above: Non- GFR Calc Platelets bldOrdered By: Hortensia Unger on 04-07-2022 Platelets (Bld) [#/Vol] 219 10*3/uL 150-450 [facility] Serum or plasma albumin josué urement (mass/volume)Ordered By: Hortensia Unger on 04-07-2022 Albumin [Mass/Vol] 3.0 g/dL 3.2-5.0 [facility] Serum or plasma albumin/glob ulin mass ratioOrdered By: Hortensia Unger on 04-07-2022 Albumin/Globulin [Mass ratio] 0.9 {ratio} 0.9-2.4 [facility] Serum or plasma calcium josué urement (mass/volume)Ordered By: Hortensia Unger on 04-07-2022 Calcium [Mass/Vol] 8.7 mg/dL 8.5-10.1 [facility] Serum or plasma creatinine m easurement (mass/volume)Ordered By: Hortensia Unger on 04-07-2022 Creatinine [Mass/Vol] 0.69 mg/dL 0.55-1.02 [facility] Comment on above: The validity of the calculated GFR & GFRAA in patients over 70 years has not been determined. Clinical correlation is essential. Serum or plasma urea nitroge n measurement (mass/volume)Ordered By: Hortensia Unger on 04-07-2022 Urea nitrogen [Mass/Vol] 9 mg/dL 7-18 [facility] Thin prep Papanicolaou smear with manual screeningOrdered By: Hortensia Unger on 04-07-2022 Thin prep Papanicolaou smear with manual screening 17 U/L 15-37 [facility] [facility] Thin prep Papanicolaou smear with manual screening 8 5-15 [facility] Culture, urineOrdered By: Isacc Unger on 03-28-2022 Bacteria identified Cx Nom (U) Culture exhibits no growth. [facility] Basophil percentageOrdered B y: Hortensia Unger on 03-26-2022 Basophil percentage 0 SEEN /hpf 0-5 [facility] Bilirubin Test strip Ql (U)O rdered By: Hortensia Unger on 03-26-2022 Bilirubin Ql (U) Negative Negative [facility] Ketones Test strip Ql (U)Ord ered By: Hortensia Unger on 03-26-2022 Ketones Ql (U) Negative Negative [facility] Mucus LM Ql (Urine sed)Order ed By: Hortensia Unger on 03-26-2022 Mucus Ql (Urine sed) 0 SEEN /hpf [facility] Nitrite Test strip Ql (U)Ord ered By: Hortensia Unger on 03-26-2022 Nitrite Ql (U) Negative Negative [facility] Protein Test strip Ql (U)Ord ered By: Hortensia Unger on 03-26-2022 Protein Ql (U) Negative Negative [facility] Squamous epithelial cells de tection in urine sediment by light microscopyOrdered By: Hortensia Unger on 03-26-2022 Epithelial cells.squamous LM Ql (Urine sed) 0 SEEN /hpf 5-10 [facility] Urine blood detectionOrdered By: Hortensia Unger on 03-26-2022 RBC Ql (U) 10 /ul Negative [facility] RBC Ql (U) 0 SEEN /hpf 0-5 [facility] Urine clarityOrdered By: Hortensia Unger on 03-26-2022 Clarity (U) Clear Clear [facility] Urine color determinationOrd ered By: Hortensia Unger on 03-26-2022 Color (U) Yellow Yellow [facility] Urine glucose detectionOrder ed By: Hortensia Unger on 03-26-2022 Glucose Ql (U) Normal mg/dl Normal [facility] Urine leukocyte esterase det ection by dipstickOrdered By: Hortensia Unger on 03-26-2022 Leukocyte esterase Test strip Ql (U) Negative Negative [facility] Urine pHOrdered By: Hortensia Szymanski iff on 03-26-2022 pH (U) 6.5 [pH] 5.0 - 8.0 [facility] Urine sediment bacteria coun t by microscopy (number/high power field)Ordered By: Hortensia Unger on 03-26-2022 Bacteria LM.HPF (Urine sed) [#/Area] 0 /[HPF] None Seen [facility] Urine specific gravity measu rementOrdered By: Hortensia Unger on 03-26-2022 Specific gravity (U) [Rel density] 1.015 1.002-1.030 [facility] Urobilinogen Auto test strip Ql (U)Ordered By: Hortensia Unger on 03-26-2022 Urobilinogen Ql (U) Normal mg/dl Normal [facility] Culture, urineOrdered By: Isacc Unger on 03-17-2022 Bacteria identified Cx Nom (U) Staphylococcus epidermidis [facility] Laboratory - CoagulationOrde red By: Hortensia Unger on 03-16-2022 INR Coag (Bld) [Relative time] 2.2 {INR} [facility] Comment on above: Critical Value > 4.0 Whole blood prothrombin time Ordered By: Hortensia Unger on 03-16-2022 PT Coag (Bld) [Time] 26.0 s 11.7-14.9 [facility] Bilirubin Test strip Ql (U)O rdered By: Hortensia Unger on 03-15-2022 Bilirubin Ql (U) Negative Negative [facility] Ketones Test strip Ql (U)Ord ered By: Hortensia Unger on 03-15-2022 Ketones Ql (U) Negative Negative [facility] Nitrite Test strip Ql (U)Ord ered By: Hortensia Unger on 03-15-2022 Nitrite Ql (U) Negative Negative [facility] Protein Test strip Ql (U)Ord ered By: Hortensia Unger on 03-15-2022 Protein Ql (U) Negative Negative [facility] Urine blood detectionOrdered By: Hortensia Unger on 03-15-2022 RBC Ql (U) Negative Negative [facility] Urine clarityOrdered By: Hortensia Unger on 03-15-2022 Clarity (U) Clear Clear [facility] Urine color determinationOrd ered By: Hortensia Unger on 03-15-2022 Color (U) Yellow Yellow [facility] Urine glucose detectionOrder ed By: Hortensia Unger on 03-15-2022 Glucose Ql (U) Normal mg/dl Normal [facility] Urine leukocyte esterase det ection by dipstickOrdered By: Hortensia Unger on 03-15-2022 Leukocyte esterase Test strip Ql (U) Negative Negative [facility] Urine pHOrdered By: Hortensia noef on 03-15-2022 pH (U) 7.0 [pH] 5.0 - 8.0 [facility] Urine specific gravity measu rementOrdered By: Hortensia Unger on 03-15-2022 Specific gravity (U) [Rel density] 1.010 1.002-1.030 [facility] Urobilinogen Auto test strip Ql (U)Ordered By: Hortensia Unger on 03-15-2022 Urobilinogen Ql (U) Normal mg/dl Normal [facility] Laboratory - Microbiology an d Antimicrobial susceptibilityOrdered By: Dr. Rios on 03-13-2022 Bacteria identified Cx Nom (Bld) No growth in 5 days. [facility] Culture, urineOrdered By: Dr Jose Rios on 03-10-2022 Bacteria identified Cx Nom (U) Culture exhibits no growth. [facility] Absolute lymphocyte countOrd ered By: Dr. Rios on 03-07-2022 Lymphocytes Auto (Unsp spec) [#/Vol] 2.09 10*3/uL 0.83-4.51 [facility] Basophil percentageOrdered B y: Dr. Rios on 03-07-2022 Basophil percentage 0 SEEN /hpf 0-5 [facility] Basophils/100 WBC (Bld) 0.2 % 0-1 [facility] Bilirubin [Mass/Vol] 0.60 mg/dL 0.20-1.00 [facility] Comment on above: For patients on eltr ombopag therapy, use of Dimension Virgin TBIL is not recommended. Chloride [Moles/Vol] 97 mmol/L 98-107 [facility] Eosinophils/100 WBC (Bld) 1.0 % 0-5 [facility] Glucose [Mass/Vol] 122 mg/dL 74-106 [facility] Comment on above: Fasting Glucose resu lt from 100 to 125 mg/dL suggests IMPAIRED HOMEOSTASIS per A.D.A. criteria. Neutrophils (Bld) [#/Vol] 10.6 10*3/uL 2.0-7.7 [facility] Neutrophils/100 WBC (Bld) 73.9 % 47-70 [facility] Potassium [Moles/Vol] 3.6 mmol/L 3.5-5.1 [facility] Protein [Mass/Vol] 7.4 g/dL 6.4-8.2 [facility] Sodium [Moles/Vol] 134 mmol/L 136-145 [facility] WBC (Bld) [#/Vol] 14.3 10*3/uL 4.4-11.0 [facility] Basophil percentageOrdered B y: Hortensia Unger on 03-07-2022 Bilirubin [Mass/Vol] 0.70 mg/dL 0.20-1.00 [facility] Comment on above: For patients on eltr ombopag therapy, use of Dimension Virgin TBIL is not recommended. Chloride [Moles/Vol] 95 mmol/L 98-107 [facility] Cholesterol [Mass/Vol] 119 mg/dL <200 [facility] Comment on above: <200 mg/dL Desirable 200-240 mg/dL Borderline >240 mg/dL High Risk Glucose [Mass/Vol] 147 mg/dL 74-106 [facility] Comment on above: Fasting Glucose resu lt greater than or equal to 126 mg/dL suggests DIABETES MELLITUS per A.D.A. criteria. Potassium [Moles/Vol] 3.6 mmol/L 3.5-5.1 [facility] Protein [Mass/Vol] 7.5 g/dL 6.4-8.2 [facility] Sodium [Moles/Vol] 133 mmol/L 136-145 [facility] Triglyceride [Mass/Vol] 81 mg/dL <199 [facility] Comment on above: The drugs N-Acetylcy steine and Metamizole may falsely depress this assay.Serum Triglycerides Reference Interval Normal <150 mg/dL Borderline high 150 - 199 mg/dL High 200 - 499 mg/dL Very High > or = 500 mg/dL WBC (Bld) [#/Vol] 13.6 10*3/uL 4.4-11.0 [facility] Bilirubin Test strip Ql (U)O rdered By: Dr. Rios on 03-07-2022 Bilirubin Ql (U) Negative Negative [facility] Blood erythrocytes count (nu mber/volume)Ordered By: Dr. Rios on 03-07-2022 RBC (Bld) [#/Vol] 4.30 10*6/uL 4.2-5.4 [facility] Blood erythrocytes count (nu mber/volume)Ordered By: Hortensia Unger on 03-07-2022 RBC (Bld) [#/Vol] 4.37 10*6/uL 4.2-5.4 [facility] Blood hemoglobin measurement (mass/volume)Ordered By: Dr. Rios on 03-07-2022 Hemoglobin (Bld) [Mass/Vol] 13.5 g/dL 12.0-15.0 [facility] Blood hemoglobin measurement (mass/volume)Ordered By: Hortensia Unger on 03-07-2022 Hemoglobin (Bld) [Mass/Vol] 13.9 g/dL 12.0-15.0 [facility] Blood lymphocytes/100 leukoc ytesOrdered By: Dr. Rios on 03-07-2022 Lymphocytes/100 WBC (Bld) 14.7 % 19-41 [facility] Blood monocytes/100 leukocyt esOrdered By: Dr. Rios on 03-07-2022 Monocytes/100 WBC (Bld) 9.8 % 0-10 [facility] Blood platelet mean volumeOr dered By: Dr. Rios on 03-07-2022 Platelet mean volume (Bld) [Entitic vol] 10.2 fL 6.2-12.0 [facility] Blood platelet mean volumeOr dered By: Hortensia Unger on 03-07-2022 Platelet mean volume (Bld) [Entitic vol] 10.6 fL 6.2-12.0 [facility] Determination of erythrocyte mean corpuscular volume (MCV)Ordered By: Dr. Rios on 03-07-2022 MCV (RBC) [Entitic vol] 91.2 fL 81-99 [facility] Determination of erythrocyte mean corpuscular volume (MCV)Ordered By: Hortensia Unger on 03-07-2022 MCV (RBC) [Entitic vol] 93.4 fL 81-99 [facility] Direct bilirubinOrdered By: Dr. Rios on 03-07-2022 Bilirubin.direct [Mass/Vol] 0.17 mg/dL 0.00-0.30 [facility] Hematocrit Auto (Bld) [Volum e fraction]Ordered By: Dr. Rios on 03-07-2022 Hematocrit (Bld) [Volume fraction] 39.2 % 37- [facility] Hematocrit Auto (Bld) [Volum e fraction]Ordered By: Hortensia Unger on 03-07-2022 Hematocrit (Bld) [Volume fraction] 40.8 % 37-47 [facility] INR in Blood by Coagulation assayOrdered By: Dr. Rios on 03-07-2022 INR Coag (Bld) [Relative time] 5.6 {INR} [facility] Comment on above: CRITICAL VALUE VERIF IED. CALLED TO BJ BENZ03/07/22 1646 Westley Nath.RESULTS READ BACK BY SAME . INR in Blood by Coagulation assayOrdered By: Hortensia Unger on 03-07-2022 INR Coag (Bld) [Relative time] 4.9 {INR} [facility] Comment on above: CRITICAL VALUE VERIF IED. CALLED TO KHRIS KHAN)03/07/22 1009 Mono Menon.RESULTS READ BACK BY SAME. Influenza virus A and B and SARS-CoV-2 (COVID-19) Ag panel - Upper respiratory specimOrdered By: Dr. Rios on 03-07-2022 SARS-CoV-2 (COVID-19) RNA REMINGTON+probe Ql (Resp) [facility] Ketones Test strip Ql (U)Ord ered By: Dr. Rios on 03-07-2022 Ketones Ql (U) Negative Negative [facility] Laboratory - Chemistry and C hemistry - challengeOrdered By: Dr. Rios on 03-07-2022 ALP [Catalytic activity/Vol] 64 U/L 45-117 [facility] ALT [Catalytic activity/Vol] 17 U/L 13-56 [facility] CO2 [Moles/Vol] 30.0 mmol/L 21.0-32.0 [facility] Globulin (S) [Mass/Vol] 4.1 g/dL 2.2-4.2 [facility] Urea nitrogen/Creatinine [Mass ratio] 17.7 mg/mg 10-20 [facility] Laboratory - Chemistry and C hemistry - challengeOrdered By: Hortensia Unger on 03-07-2022 ALP [Catalytic activity/Vol] 74 U/L 45-117 [facility] ALT [Catalytic activity/Vol] 22 U/L 13-56 [facility] CO2 [Moles/Vol] 28.0 mmol/L 21.0-32.0 [facility] Globulin (S) [Mass/Vol] 4.3 g/dL 2.2-4.2 [facility] Urea nitrogen/Creatinine [Mass ratio] 16.1 mg/mg 03-17 [facility] Laboratory - CoagulationOrde red By: Dr. Rios on 03-07-2022 PT Coag (PPP) [Time] 50.6 s 11.7-14.9 [facility] Laboratory - CoagulationOrde red By: Hortensia Unger on 03-07-2022 PT Coag (PPP) [Time] 45.7 s 11.7-14.9 [facility] Laboratory - Hematology and Cell countsOrdered By: Dr. Rios on 03-07-2022 Erythrocyte distribution width (RBC) [Entitic vol] 40.9 fL 35.1-43.9 [facility] Erythrocyte distribution width (RBC) [Ratio] 12.3 % 11.6-14.6 [facility] Immature granulocytes/100 WBC (Bld) 0.400 % 0.0-0.9 [facility] Comment on above: IG% - Immature Granu locytes (promyelocytes, myelocytes and metamyelocytes) > 1% indicates that a LEFT SHIFT is Present. MCH (RBC) [Entitic mass] 31.4 pg 27.0-32.0 [facility] Nucleated RBC/100 WBC (Bld) [Ratio] 0 % 0-5 [facility] Laboratory - Hematology and Cell countsOrdered By: Hortensia Unger on 03-07-2022 Erythrocyte distribution width (RBC) [Entitic vol] 42.1 fL 35.1-43.9 [facility] Erythrocyte distribution width (RBC) [Ratio] 12.2 % 11.6-14.6 [facility] MCH (RBC) [Entitic mass] 31.8 pg 27.0-32.0 [facility] MCHC Auto (RBC) [Mass/Vol]Or dered By: Dr. Rios on 03-07-2022 MCHC (RBC) [Mass/Vol] 34.4 g/dL 32-36 [facility] MCHC Auto (RBC) [Mass/Vol]Or dered By: Hortensia Unger on 03-07-2022 MCHC (RBC) [Mass/Vol] 34.1 g/dL 32-36 [facility] Mucus LM Ql (Urine sed)Order ed By: Dr. Rios on 03-07-2022 Mucus Ql (Urine sed) 0 SEEN /hpf [facility] Nitrite Test strip Ql (U)Ord ered By: Dr. Rios on 03-07-2022 Nitrite Ql (U) Negative Negative [facility] No Panel InformationOrdered By: Dr. Rios on 03-07-2022 Estimated Creatinine Clearance Calc 31.60 ml/min [facility] Estimated GFR (MDRD) Amer 97 mL/min >60 [facility] Comment on above: GFR Calc Estimated GFR (MDRD) Non-Af Amer 80 mL/min >60 [facility] Comment on above: Non- GFR Calc Troponin I High Sensitivity 9 pg/mL 3.0-54.0 [facility] Comment on above: Please Note: New Amber t Units and Gender Specific Reference Ranges. For more information see Policy Stat Procedure Virgin High Sensitivity Troponin (TNIH) and attachments. No Panel InformationOrdered By: Hortensia Unger on 03-07-2022 Estimated GFR (MDRD) Amer 95 mL/min >60 [facility] Comment on above: GFR Calc Estimated GFR (MDRD) Non-Af Amer 79 mL/min >60 [facility] Comment on above: Non- GFR Calc Platelets bldOrdered By: Dr. Rios on 03-07-2022 Platelets (Bld) [#/Vol] 229 10*3/uL 150-450 [facility] Platelets bldOrdered By: Hortensia Unger on 03-07-2022 Platelets (Bld) [#/Vol] 223 10*3/uL 150-450 [facility] Protein Test strip Ql (U)Ord ered By: Dr. Rios on 03-07-2022 Protein Ql (U) Negative Negative [facility] Serum or plasma albumin josué urement (mass/volume)Ordered By: Dr. Rios on 03-07-2022 Albumin [Mass/Vol] 3.3 g/dL 3.2-5.0 [facility] Serum or plasma albumin josué urement (mass/volume)Ordered By: Hortensia Unger on 03-07-2022 Albumin [Mass/Vol] 3.2 g/dL 3.2-5.0 [facility] Serum or plasma albumin/glob ulin mass ratioOrdered By: Hortensia Unger on 03-07-2022 Albumin/Globulin [Mass ratio] 0.7 {ratio} 0.9-2.4 [facility] Serum or plasma calcium josué urement (mass/volume)Ordered By: Dr. Rios on 03-07-2022 Calcium [Mass/Vol] 9.0 mg/dL 8.5-10.1 [facility] Serum or plasma calcium josué urement (mass/volume)Ordered By: Hortensia Unger on 03-07-2022 Calcium [Mass/Vol] 8.9 mg/dL 8.5-10.1 [facility] Serum or plasma cholesterol in HDL measurement (mass/volume)Ordered By: Hortensia Unger on 03-07-2022 Cholesterol in HDL [Mass/Vol] 57 mg/dL >40 [facility] Comment on above: The drugs N-Acetylcy steine and Metamizole may falsely depress this assay. Reference Range HDL <40 mg/dL Low HDL Cholesterol HDL >or= 60 mg/dL High HDL Cholesterol Serum or plasma cholesterol in VLDL measurement (mass/volume)Ordered By: Hortensia Unger on 03-07-2022 Cholesterol in VLDL [Mass/Vol] 16 mg/dL 5-40 [facility] Serum or plasma creatinine m easurement (mass/volume)Ordered By: Dr. Rios on 03-07-2022 Creatinine [Mass/Vol] 0.73 mg/dL 0.55-1.02 [facility] Comment on above: The validity of the calculated GFR & GFRAA in patients over 70 years has not been determined. Clinical correlation is essential. Serum or plasma creatinine m easurement (mass/volume)Ordered By: Hortensia Unger on 03-07-2022 Creatinine [Mass/Vol] 0.75 mg/dL 0.55-1.02 [facility] Comment on above: The validity of the calculated GFR & GFRAA in patients over 70 years has not been determined. Clinical correlation is essential. Serum or plasma low density lipoprotein (LDL) cholesterol measurement (mass/volume)Ordered By: Hortensia Unger on 03-07-2022 Cholesterol in LDL [Mass/Vol] 46 mg/dL 0-130 [facility] Serum or plasma urea nitroge n measurement (mass/volume)Ordered By: Dr. Rios on 03-07-2022 Urea nitrogen [Mass/Vol] 13 mg/dL 7-18 [facility] Serum or plasma urea nitroge n measurement (mass/volume)Ordered By: Hortensia Unger on 03-07-2022 Urea nitrogen [Mass/Vol] 12 mg/dL - [facility] Squamous epithelial cells de tection in urine sediment by light microscopyOrdered By: Dr. Rios on 03-07-2022 Epithelial cells.squamous LM Ql (Urine sed) 0-5 SEEN /hpf 5-10 [facility] Thin prep Papanicolaou smear with manual screeningOrdered By: Dr. Rios on 03-07-2022 Thin prep Papanicolaou smear with manual screening 15 U/L 15- [facility] Thin prep Papanicolaou smear with manual screening 7 5-15 [facility] Thin prep Papanicolaou smear with manual screeningOrdered By: Hortensia Unger on 03-07-2022 Thin prep Papanicolaou smear with manual screening 20 U/L 15-37 [facility] Thin prep Papanicolaou smear with manual screening 10 5-15 [facility] Urine blood detectionOrdered By: Dr. Rios on 03-07-2022 RBC Ql (U) 25 /ul Negative [facility] RBC Ql (U) 5-10 SEEN /hpf 0-5 [facility] Urine clarityOrdered By: Dr. Rios on 03-07-2022 Clarity (U) Clear Clear [facility] Urine color determinationOrd ered By: Dr. Rios on 03-07-2022 Color (U) Yellow Yellow [facility] Urine glucose detectionOrder ed By: Dr. Rios on 03-07-2022 Glucose Ql (U) Normal mg/dl Normal [facility] Urine leukocyte esterase det ection by dipstickOrdered By: Dr. Rois on 03-07-2022 Leukocyte esterase Test strip Ql (U) Negative Negative [facility] Urine pHOrdered By: Dr. Ricky bone on 03-07-2022 pH (U) 6.5 [pH] 5.0 - 8.0 [facility] Urine sediment bacteria coun t by microscopy (number/high power field)Ordered By: Dr. Rios on 03-07-2022 Bacteria LM.HPF (Urine sed) [#/Area] RARE /hpf None Seen [facility] Urine specific gravity measu rementOrdered By: Dr. Rios on 03-07-2022 Specific gravity (U) [Rel density] 1.010 1.002-1.030 [facility] Urobilinogen Auto test strip Ql (U)Ordered By: Dr. Rios on 03-07-2022 Urobilinogen Ql (U) 1 mg/dl Normal [facility] Laboratory - Coagulationon 0 02-03-2022 INR Coag (Bld) [Relative time] 2.1 {INR} [facility] Work Phone: Comment on above: Critical Value > 4.0 Whole blood prothrombin time on 02-03-2022 PT Coag (Bld) [Time] 24.8 s 11.7-14.9 [facility] Work Phone: Laboratory - Coagulationon 0 01-06-2022 INR Coag (Bld) [Relative time] 2.2 {INR} [facility] Work Phone: Comment on above: Critical Value > 4.0 Whole blood prothrombin time on 01-06-2022 PT Coag (Bld) [Time] 25.9 s 11.7-14.9 [facility] Work Phone: Laboratory - Coagulationon 0 12-20-2021 INR Coag (Bld) [Relative time] 2.1 {INR} [facility] Work Phone: Comment on above: Critical Value > 4.0 Whole blood prothrombin time on 12-20-2021 PT Coag (Bld) [Time] 25.2 s 11.7-14.9 [facility] Work Phone: Laboratory - Coagulationon 0 12-13-2021 INR Coag (Bld) [Relative time] 1.4 {INR} [facility] Work Phone: Comment on above: Critical Value > 4.0 Whole blood prothrombin time on 12-13-2021 PT Coag (Bld) [Time] 17.2 s 11.7-14.9 [facility] Work Phone: Basophil percentageon 2021 Chloride [Moles/Vol] 98 mmol/L 98-107 [facility] Work Phone: Cholesterol [Mass/Vol] 114 mg/dL <200 [facility] Work Phone: Comment on above: <200 mg/dL Desirable 200-240 mg/dL Borderline >240 mg/dL High Risk Glucose [Mass/Vol] 111 mg/dL 74-106 [facility] Work Phone: Comment on above: Fasting Glucose resu lt from 100 to 125 mg/dL suggests IMPAIRED HOMEOSTASIS per A.D.A. criteria. Potassium [Moles/Vol] 3.7 mmol/L 3.5-5.1 [facility] Work Phone: Sodium [Moles/Vol] 135 mmol/L 136-145 [facility] Work Phone: Triglyceride [Mass/Vol] 61 mg/dL <199 [facility] Work Phone: Comment on above: The drugs N-Acetylcy steine and Metamizole may falsely depress this assay.Serum Triglycerides Reference Interval Normal <150 mg/dL Borderline high 150 - 199 mg/dL High 200 - 499 mg/dL Very High > or = 500 mg/dL WBC (Bld) [#/Vol] 5.9 10*3/uL 4.4-11.0 [facility] Work Phone: Blood erythrocytes count (nu mber/volume)on 12-10-2021 RBC (Bld) [#/Vol] 3.91 10*6/uL 4.2-5.4 [facility] Work Phone: Blood hemoglobin measurement (mass/volume)on 12-10-2021 Hemoglobin (Bld) [Mass/Vol] 12.4 g/dL 12.0-15.0 [facility] Work Phone: Blood platelet mean volumeon 12-10-2021 Platelet mean volume (Bld) [Entitic vol] 10.3 fL 6.2-12.0 [facility] Work Phone: Determination of erythrocyte mean corpuscular volume (MCV)on 12-10-2021 MCV (RBC) [Entitic vol] 92.1 fL 81-99 [facility] Work Phone: Hematocrit Auto (Bld) [Volum e fraction]on 12-10-2021 Hematocrit (Bld) [Volume fraction] 36.0 % 37-47 [facility] Work Phone: Laboratory - Chemistry and C hemistry - challengeon 12-10-2021 CO2 [Moles/Vol] 32.0 mmol/L 21.0-32.0 [facility] Work Phone: Urea nitrogen/Creatinine [Mass ratio] 18.8 mg/mg 10-20 [facility] Work Phone: Laboratory - Hematology and Cell countson 12-10-2021 Erythrocyte distribution width (RBC) [Entitic vol] 41.1 fL 35.1-43.9 [facility] Work Phone: Erythrocyte distribution width (RBC) [Ratio] 12.3 % 11.6-14.6 [facility] Work Phone: MCH (RBC) [Entitic mass] 31.7 pg 27.0-32.0 [facility] Work Phone: MCHC Auto (RBC) [Mass/Vol]on 12-10-2021 MCHC (RBC) [Mass/Vol] 34.4 g/dL 32-36 [facility] Work Phone: No Panel Informationon 12-10 Estimated GFR (MDRD) Amer 114 mL/min >60 [facility] Work Phone: Comment on above: GFR Calc Estimated GFR (MDRD) Non-Af Amer 94 mL/min >60 [facility] [facility] Work Phone: Comment on above: Non- GFR Calc Platelets bldon 12-10-2021 Platelets (Bld) [#/Vol] 206 10*3/uL 150-450 [facility] Work Phone: Serum or plasma calcium josué urement (mass/volume)on 12-10-2021 Calcium [Mass/Vol] 8.7 mg/dL 8.5-10.1 [facility] Work Phone: Serum or plasma cholesterol in HDL measurement (mass/volume)on 12-10-2021 Cholesterol in HDL [Mass/Vol] 48 mg/dL >40 [facility] Work Phone: Comment on above: The drugs N-Acetylcy steine and Metamizole may falsely depress this assay. Reference Range HDL <40 mg/dL Low HDL Cholesterol HDL >or= 60 mg/dL High HDL Cholesterol Serum or plasma cholesterol in VLDL measurement (mass/volume)on 12-10-2021 Cholesterol in VLDL [Mass/Vol] 12 mg/dL 5-40 [facility] Work Phone: Serum or plasma creatinine m easurement (mass/volume)on 12-10-2021 Creatinine [Mass/Vol] 0.64 mg/dL 0.55-1.02 [facility] Work Phone: Comment on above: The validity of the calculated GFR & GFRAA in patients over 70 years has not been determined. Clinical correlation is essential. Serum or plasma low density lipoprotein (LDL) cholesterol measurement (mass/volume)on 12-10-2021 Cholesterol in LDL [Mass/Vol] 54 mg/dL 0-130 [facility] Work Phone: Serum or plasma urea nitroge n measurement (mass/volume)on 12-10-2021 Urea nitrogen [Mass/Vol] 12 mg/dL 7-18 [facility] Work Phone: Thin prep Papanicolaou smear with manual screeningon 12-10-2021 Thin prep Papanicolaou smear with manual screening 5 5-15 [facility] Work Phone: Basophil percentageon 2021 Chloride [Moles/Vol] 96 mmol/L 98-107 [facility] Work Phone: Glucose [Mass/Vol] 126 mg/dL 74-106 [facility] Work Phone: Comment on above: Fasting Glucose resu lt greater than or equal to 126 mg/dL suggests DIABETES MELLITUS per A.D.A. criteria. Potassium [Moles/Vol] 3.5 mmol/L 3.5-5.1 [facility] Work Phone: Sodium [Moles/Vol] 133 mmol/L 136-145 [facility] Work Phone: WBC (Bld) [#/Vol] 7.2 10*3/uL 4.4-11.0 [facility] Work Phone: Blood erythrocytes count (nu mber/volume)on 12-02-2021 RBC (Bld) [#/Vol] 4.59 10*6/uL 4.2-5.4 [facility] Work Phone: Blood hemoglobin measurement (mass/volume)on 12-02-2021 Hemoglobin (Bld) [Mass/Vol] 14.4 g/dL 12.0-15.0 [facility] Work Phone: Blood platelet mean volumeon 12-02-2021 Platelet mean volume (Bld) [Entitic vol] 10.6 fL 6.2-12.0 [facility] Work Phone: Determination of erythrocyte mean corpuscular volume (MCV)on 12-02-2021 MCV (RBC) [Entitic vol] 92.4 fL 81-99 [facility] Work Phone: Hematocrit Auto (Bld) [Volum e fraction]on 12-02-2021 Hematocrit (Bld) [Volume fraction] 42.4 % 37-47 [facility] Work Phone: INR in Blood by Coagulation assayon 12-02-2021 INR Coag (Bld) [Relative time] 1.7 {INR} [facility] Work Phone: Laboratory - Chemistry and C hemistry - challengeon 12-02-2021 CO2 [Moles/Vol] 33.0 mmol/L 21.0-32.0 [facility] Work Phone: Urea nitrogen/Creatinine [Mass ratio] 17.2 mg/mg 10-20 [facility] Work Phone: Laboratory - Coagulationon 0 12-02-2021 PT Coag (PPP) [Time] 19.9 s 11.7-14.9 [facility] Work Phone: Laboratory - Hematology and Cell countson 12-02-2021 Erythrocyte distribution width (RBC) [Entitic vol] 41.6 fL 35.1-43.9 [facility] Work Phone: Erythrocyte distribution width (RBC) [Ratio] 12.2 % 11.6-14.6 [facility] Work Phone: MCH (RBC) [Entitic mass] 31.4 pg 27.0-32.0 [facility] Work Phone: MCHC Auto (RBC) [Mass/Vol]on 12-02-2021 MCHC (RBC) [Mass/Vol] 34.0 g/dL 32-36 [facility] Work Phone: No Panel Informationon 12-02 Estimated GFR (MDRD) Amer 94 mL/min >60 [facility] Work Phone: Comment on above: GFR Calc Estimated GFR (MDRD) Non-Af Amer 78 mL/min >60 [facility] Work Phone: Comment on above: Non- GFR Calc Platelets bldon 12-02-2021 Platelets (Bld) [#/Vol] 248 10*3/uL 150-450 [facility] Work Phone: Serum or plasma calcium josué urement (mass/volume)on 12-02-2021 Calcium [Mass/Vol] 8.9 mg/dL 8.5-10.1 [facility] Work Phone: Serum or plasma creatinine m easurement (mass/volume)on 12-02-2021 Creatinine [Mass/Vol] 0.75 mg/dL 0.55-1.02 [facility] Work Phone: Comment on above: The validity of the calculated GFR & GFRAA in patients over 70 years has not been determined. Clinical correlation is essential. Serum or plasma urea nitroge n measurement (mass/volume)on 12-02-2021 Urea nitrogen [Mass/Vol] 13 mg/dL 7-18 [facility] Work Phone: Thin prep Papanicolaou smear with manual screeningon 12-02-2021 Thin prep Papanicolaou smear with manual screening 4 5-15 [facility] Work Phone: Basophil percentageon 2021 Chloride [Moles/Vol] 102 mmol/L 98-107 [facility] Work Phone: Glucose [Mass/Vol] 110 mg/dL 74-106 [facility] Work Phone: Comment on above: Fasting Glucose resu lt from 100 to 125 mg/dL suggests IMPAIRED HOMEOSTASIS per A.D.A. criteria. Potassium [Moles/Vol] 4.7 mmol/L 3.5-5.1 [facility] Work Phone: Sodium [Moles/Vol] 136 mmol/L 136-145 [facility] Work Phone: WBC (Bld) [#/Vol] 6.5 10*3/uL 4.4-11.0 [facility] Work Phone: Blood erythrocytes count (nu mber/volume)on 11-25-2021 RBC (Bld) [#/Vol] 4.15 10*6/uL 4.2-5.4 [facility] Work Phone: Blood hemoglobin measurement (mass/volume)on 11-25-2021 Hemoglobin (Bld) [Mass/Vol] 13.0 g/dL 12.0-15.0 [facility] Work Phone: Blood platelet mean volumeon 11-25-2021 Platelet mean volume (Bld) [Entitic vol] 10.3 fL 6.2-12.0 [facility] Work Phone: Determination of erythrocyte mean corpuscular volume (MCV)on 11-25-2021 MCV (RBC) [Entitic vol] 91.6 fL 81-99 [facility] Work Phone: Hematocrit Auto (Bld) [Volum e fraction]on 11-25-2021 Hematocrit (Bld) [Volume fraction] 38.0 % 37-47 [facility] Work Phone: Laboratory - Chemistry and C hemistry - challengeon 11-25-2021 CO2 [Moles/Vol] 30.0 mmol/L 21.0-32.0 [facility] Work Phone: Urea nitrogen/Creatinine [Mass ratio] 15.3 mg/mg 10-20 [facility] Work Phone: Laboratory - Hematology and Cell countson 11-25-2021 Erythrocyte distribution width (RBC) [Entitic vol] 41.4 fL 35.1-43.9 [facility] Work Phone: Erythrocyte distribution width (RBC) [Ratio] 12.4 % 11.6-14.6 [facility] Work Phone: MCH (RBC) [Entitic mass] 31.3 pg 27.0-32.0 [facility] Work Phone: MCHC Auto (RBC) [Mass/Vol]on 11-25-2021 MCHC (RBC) [Mass/Vol] 34.2 g/dL 32-36 [facility] Work Phone: No Panel Informationon 11-25 Estimated GFR (MDRD) Amer 99 mL/min >60 [facility] Work Phone: Comment on above: GFR Calc Estimated GFR (MDRD) Non-Af Amer 82 mL/min >60 [facility] Work Phone: Comment on above: Non- GFR Calc Platelets bldon 11-25-2021 Platelets (Bld) [#/Vol] 209 10*3/uL 150-450 [facility] Work Phone: Serum or plasma calcium josué urement (mass/volume)on 11-25-2021 Calcium [Mass/Vol] 8.8 mg/dL 8.5-10.1 [facility] Work Phone: Serum or plasma creatinine m easurement (mass/volume)on 11-25-2021 Creatinine [Mass/Vol] 0.72 mg/dL 0.55-1.02 [facility] Work Phone: Comment on above: The validity of the calculated GFR & GFRAA in patients over 70 years has not been determined. Clinical correlation is essential. Serum or plasma urea nitroge n measurement (mass/volume)on 11-25-2021 Urea nitrogen [Mass/Vol] 11 mg/dL 7-18 [facility] Work Phone: Thin prep Papanicolaou smear with manual screeningon 11-25-2021 Thin prep Papanicolaou smear with manual screening 4 5-15 [facility] Work Phone: Basophil percentageon 2021 Chloride [Moles/Vol] 98 mmol/L 98-107 [facility] Work Phone: Glucose [Mass/Vol] 112 mg/dL 74-106 [facility] Work Phone: Comment on above: Fasting Glucose resu lt from 100 to 125 mg/dL suggests IMPAIRED HOMEOSTASIS per A.D.A. criteria. Potassium [Moles/Vol] 4.9 mmol/L 3.5-5.1 [facility] Work Phone: Sodium [Moles/Vol] 133 mmol/L 136-145 [facility] Work Phone: Laboratory - Chemistry and C hemistry - challengeon 11-23-2021 CO2 [Moles/Vol] 30.0 mmol/L 21.0-32.0 [facility] Work Phone: Urea nitrogen/Creatinine [Mass ratio] 15.5 mg/mg 10-20 [facility] Work Phone: No Panel Informationon 11-23 Estimated GFR (MDRD) Amer 101 mL/min >60 [facility] Work Phone: Comment on above: GFR Calc Estimated GFR (MDRD) Non-Af Amer 84 mL/min >60 [facility] Work Phone: Comment on above: Non- GFR Calc Serum or plasma calcium josué urement (mass/volume)on 11-23-2021 Calcium [Mass/Vol] 9.3 mg/dL 8.5-10.1 [facility] Work Phone: Serum or plasma creatinine m easurement (mass/volume)on 11-23-2021 Creatinine [Mass/Vol] 0.71 mg/dL 0.55-1.02 [facility] Work Phone: Comment on above: The validity of the calculated GFR & GFRAA in patients over 70 years has not been determined. Clinical correlation is essential. Serum or plasma urea nitroge n measurement (mass/volume)on 11-23-2021 Urea nitrogen [Mass/Vol] 11 mg/dL 7-18 [facility] Work Phone: Thin prep Papanicolaou smear with manual screeningon 11-23-2021 Thin prep Papanicolaou smear with manual screening 5 5-15 [facility] Work Phone: Basophil percentageon 2021 Chloride [Moles/Vol] 97 mmol/L 98-107 [facility] Work Phone: Glucose [Mass/Vol] 99 mg/dL 74-106 [facility] Work Phone: Potassium [Moles/Vol] 4.2 mmol/L 3.5-5.1 [facility] Work Phone: Sodium [Moles/Vol] 132 mmol/L 136-145 [facility] Work [facility]: WBC (Bld) [#/Vol] 6.8 10*3/uL 4.4-11.0 [facility] Work Phone: Blood erythrocytes count (nu mber/volume)on 11-18-2021 RBC (Bld) [#/Vol] 4.12 10*6/uL 4.2-5.4 [facility]: Blood hemoglobin measurement (mass/volume)on 11-18-2021 Hemoglobin (Bld) [Mass/Vol] 12.8 g/dL 12.0-15.0 [facility] Work Phone: Blood platelet mean volumeon 11-18-2021 Platelet mean volume (Bld) [Entitic vol] 10.5 fL 6.2-12.0 [facility] Work Phone: Determination of erythrocyte mean corpuscular volume (MCV)on 11-18-2021 MCV (RBC) [Entitic vol] 92.5 fL 81-99 [facility] Work Phone: Hematocrit Auto (Bld) [Volum e fraction]on 11-18-2021 Hematocrit (Bld) [Volume fraction] 38.1 % 37-47 [facility] Work Phone: Laboratory - Chemistry and C hemistry - challengeon 11-18-2021 CO2 [Moles/Vol] 30.0 mmol/L 21.0-32.0 [facility] Work Phone: Urea nitrogen/Creatinine [Mass ratio] 21.1 mg/mg 10-20 [facility] Work Phone: Laboratory - Hematology and Cell countson 11-18-2021 Erythrocyte distribution width (RBC) [Entitic vol] 41.6 fL 35.1-43.9 [facility] Work Phone: Erythrocyte distribution width (RBC) [Ratio] 12.3 % 11.6-14.6 [facility] Work Phone: MCH (RBC) [Entitic mass] 31.1 pg 27.0-32.0 [facility] Work Phone: MCHC Auto (RBC) [Mass/Vol]on 11-18-2021 MCHC (RBC) [Mass/Vol] 33.6 g/dL 32-36 [facility] Work Phone: No Panel Informationon 11-18 Estimated GFR (MDRD) Amer 94 mL/min >60 [facility] Work Phone: Comment on above: GFR Calc Estimated GFR (MDRD) Non-Af Amer 77 mL/min >60 [facility] Work Phone: Comment on above: Non- GFR Calc Platelets bldon 11-18-2021 Platelets (Bld) [#/Vol] 220 10*3/uL 150-450 [facility] Work Phone: Serum or plasma calcium josué urement (mass/volume)on 11-18-2021 Calcium [Mass/Vol] 8.8 mg/dL 8.5-10.1 [facility] Work Phone: Serum or plasma creatinine m easurement (mass/volume)on 11-18-2021 Creatinine [Mass/Vol] 0.76 mg/dL 0.55-1.02 [facility] Work Phone: Comment on above: The validity of the calculated GFR & GFRAA in patients over 70 years has not been determined. Clinical correlation is essential. Serum or plasma urea nitroge n measurement (mass/volume)on 11-18-2021 Urea nitrogen [Mass/Vol] 16 mg/dL 7-18 [facility] Work Phone: Thin prep Papanicolaou smear with manual screeningon 11-18-2021 Thin prep Papanicolaou smear with manual screening 5 5-15 [facility] Work Phone: Absolute lymphocyte counton 11-12-2021 Lymphocytes Auto (Unsp spec) [#/Vol] 1.86 10*3/uL 0.83-4.51 [facility] Work Phone: Basophil percentageon 2021 Basophils/100 WBC (Bld) 0.6 % 0-1 [facility] Work Phone: [phone] Chloride [Moles/Vol] 104 mmol/L 98-107 [facility] Work Phone: Eosinophils/100 WBC (Bld) 3.9 % 0-5 [facility] Work Phone: Glucose [Mass/Vol] 103 mg/dL 74-106 [facility] Work Phone: Comment on above: Fasting Glucose resu lt from 100 to 125 mg/dL suggests IMPAIRED HOMEOSTASIS per A.D.A. criteria. Neutrophils (Bld) [#/Vol] 3.7 10*3/uL 2.0-7.7 [facility] Work Phone: Neutrophils/100 WBC (Bld) 56.9 % 47-70 [facility] Work Phone: Potassium [Moles/Vol] 4.1 mmol/L 3.5-5.1 [facility] Work Phone: Sodium [Moles/Vol] 137 mmol/L 136-145 [facility] Work Phone: [phone] WBC (Bld) [#/Vol] 6.4 10*3/uL 4.4-11.0 [facility] Work Phone: Blood erythrocytes count (nu mber/volume)on 11-12-2021 RBC (Bld) [#/Vol] 3.99 10*6/uL 4.2-5.4 [facility] Work Phone: Blood hemoglobin measurement (mass/volume)on 11-12-2021 Hemoglobin (Bld) [Mass/Vol] 12.5 g/dL 12.0-15.0 [facility] Work Phone: Blood lymphocytes/100 leukoc yteson 11-12-2021 Lymphocytes/100 WBC (Bld) 29.0 % 19-41 [facility] Work Phone: Blood monocytes/100 leukocyt eson 11-12-2021 Monocytes/100 WBC (Bld) 9.4 % 0-10 [facility] Work Phone: Blood platelet mean volumeon 11-12-2021 Platelet mean volume (Bld) [Entitic vol] 10.1 fL 6.2-12.0 [facility] Work Phone: Determination of erythrocyte mean corpuscular volume (MCV)on 11-12-2021 MCV (RBC) [Entitic vol] 93.7 fL 81-99 [facility] Work Phone: Hematocrit Auto (Bld) [Volum e fraction]on 11-12-2021 Hematocrit (Bld) [Volume fraction] 37.4 % 37-47 [facility] Work Phone: Laboratory - Chemistry and C hemistry - challengeon 11-12-2021 CO2 [Moles/Vol] 30.0 mmol/L 21.0-32.0 [facility] Work Phone: Urea nitrogen/Creatinine [Mass ratio] 21.6 mg/mg 10-20 [facility] Work Phone: Laboratory - Hematology and Cell countson 11-12-2021 Erythrocyte distribution width (RBC) [Entitic vol] 41.7 fL 35.1-43.9 [facility] Work Phone: Erythrocyte distribution width (RBC) [Ratio] 12.0 % 11.6-14.6 [facility] Work Phone: Immature granulocytes/100 WBC (Bld) 0.200 % 0.0-0.9 [facility] Work Phone: Comment on above: IG% - Immature Granu locytes (promyelocytes, myelocytes and metamyelocytes) > 1% indicates that a LEFT SHIFT is Present. MCH (RBC) [Entitic mass] 31.3 pg 27.0-32.0 [facility] Work Phone: Nucleated RBC/100 WBC (Bld) [Ratio] 0 % 0-5 [facility] Work Phone: MCHC Auto (RBC) [Mass/Vol]on 11-12-2021 MCHC (RBC) [Mass/Vol] 33.4 g/dL 32-36 [facility] Work Phone: No Panel Informationon 11-12 Estimated Creatinine Clearance Calc 30.08 ml/min [facility] Work Phone: Estimated GFR (MDRD) Amer 122 mL/min >60 [facility] Work Phone: Comment on above: GFR Calc Estimated GFR (MDRD) Non-Af Amer 101 mL/min >60 [facility] Work Phone: Comment on above: Non- GFR Calc Platelets bldon 11-12-2021 Platelets (Bld) [#/Vol] 204 10*3/uL 150-450 [facility] Work Phone: Serum or plasma calcium josué urement (mass/volume)on 11-12-2021 Calcium [Mass/Vol] 8.6 mg/dL 8.5-10.1 [facility] Work Phone: Serum or plasma creatinine m easurement (mass/volume)on 11-12-2021 Creatinine [Mass/Vol] 0.60 mg/dL 0.55-1.02 [facility] Work Phone: Comment on above: The validity of the calculated GFR & GFRAA in patients over 70 years has not been determined. Clinical correlation is essential. Serum or plasma urea nitroge n measurement (mass/volume)on 11-12-2021 Urea nitrogen [Mass/Vol] 13 mg/dL 7-18 [facility] Work Phone: Thin prep Papanicolaou smear with manual screeningon 11-12-2021 Thin prep Papanicolaou smear with manual screening 3 5-15 [facility] Work Phone: [phone] INR in Blood by Coagulation assayon 11-11-2021 INR Coag (Bld) [Relative time] 2.3 {INR} [facility] Work Phone: [phone] Laboratory - Coagulationon 0 11-11-2021 PT Coag (PPP) [Time] 24.6 s 11.7-14.9 [facility] Work Phone: INR in Blood by Coagulation assayon 11-08-2021 INR Coag (Bld) [Relative time] 3.0 {INR} [facility] Work Phone: Laboratory - Coagulationon 0 11-08-2021 PT Coag (PPP) [Time] 30.5 s 11.7-14.9 [facility] Work Phone: Basophil percentageon 2021 Chloride [Moles/Vol] 106 mmol/L 98-107 [facility] Work Phone: Glucose [Mass/Vol] 107 mg/dL 74-106 [facility] Work Phone: Comment on above: Fasting Glucose resu lt from 100 to 125 mg/dL suggests IMPAIRED HOMEOSTASIS per A.D.A. criteria. Potassium [Moles/Vol] 4.0 mmol/L 3.5-5.1 [facility] Work Phone: Sodium [Moles/Vol] 139 mmol/L 136-145 [facility] Work Phone: Laboratory - Chemistry and C hemistry - challengeon 11-07-2021 CO2 [Moles/Vol] 30.0 mmol/L 21.0-32.0 [facility] Work Phone: Urea nitrogen/Creatinine [Mass ratio] 22.2 mg/mg 10-20 [facility] Work Phone: No Panel Informationon 11-07 Estimated Creatinine Clearance Calc 30.08 ml/min [facility] Work Phone: Estimated GFR (MDRD) Amer 116 mL/min >60 [facility] Work Phone: Comment on above: GFR Calc Estimated GFR (MDRD) Non-Af Amer 96 mL/min >60 [facility] Work Phone: Comment on above: Non- GFR Calc Serum or plasma calcium josué urement (mass/volume)on 11-07-2021 Calcium [Mass/Vol] 8.9 mg/dL 8.5-10.1 [facility] Work Phone: Serum or plasma creatinine m easurement (mass/volume)on 11-07-2021 Creatinine [Mass/Vol] 0.63 mg/dL 0.55-1.02 [facility] Work Phone: Comment on above: The validity of the calculated GFR & GFRAA in patients over 70 years has not been determined. Clinical correlation is essential. Serum or plasma urea nitroge n measurement (mass/volume)on 11-07-2021 Urea nitrogen [Mass/Vol] 14 mg/dL 7-18 [facility] Work Phone: Thin prep Papanicolaou smear with manual screeningon 11-07-2021 Thin prep Papanicolaou smear with manual screening 3 5-15 [facility] Work Phone: Absolute lymphocyte counton 11-05-2021 Lymphocytes Auto (Unsp spec) [#/Vol] 2.23 10*3/uL 0.83-4.51 [facility] Work Phone: Basophil percentageon 2021 Basophils/100 WBC (Bld) 0.7 % 0-1 [facility] Work Phone: Eosinophils/100 WBC (Bld) 2.6 % 0-5 [facility] Work Phone: Neutrophils (Bld) [#/Vol] 3.9 10*3/uL 2.0-7.7 [facility] Work Phone: Neutrophils/100 WBC (Bld) 56.0 % 47-70 [facility] Work Phone: WBC (Bld) [#/Vol] 7.0 10*3/uL 4.4-11.0 [facility] Work Phone: Blood erythrocytes count (nu mber/volume)on 11-05-2021 RBC (Bld) [#/Vol] 4.10 10*6/uL 4.2-5.4 [facility] Work Phone: Blood hemoglobin measurement (mass/volume)on 11-05-2021 Hemoglobin (Bld) [Mass/Vol] 12.8 g/dL 12.0-15.0 [facility] Work Phone: Blood lymphocytes/100 leukoc yteson 11-05-2021 Lymphocytes/100 WBC (Bld) 31.9 % 19-41 [facility] Work Phone: Blood monocytes/100 leukocyt eson 11-05-2021 Monocytes/100 WBC (Bld) 8.4 % 0-10 [facility] Work Phone: Blood platelet mean volumeon 11-05-2021 Platelet mean volume (Bld) [Entitic vol] 10.1 fL 6.2-12.0 [facility] Work Phone: Determination of erythrocyte mean corpuscular volume (MCV)on 11-05-2021 MCV (RBC) [Entitic vol] 91.5 fL 81-99 [facility] Work Phone: Hematocrit Auto (Bld) [Volum e fraction]on 11-05-2021 Hematocrit (Bld) [Volume fraction] 37.5 % 37-47 [facility] Work Phone: Laboratory - Hematology and Cell countson 11-05-2021 Erythrocyte distribution width (RBC) [Entitic vol] 41.1 fL 35.1-43.9 [facility] Work Phone: Erythrocyte distribution width (RBC) [Ratio] 12.4 % 11.6-14.6 [facility] Work Phone: Immature granulocytes/100 WBC (Bld) 0.400 % 0.0-0.9 [facility] Work Phone: Comment on above: IG% - Immature Granu locytes (promyelocytes, myelocytes and metamyelocytes) > 1% indicates that a LEFT SHIFT is Present. MCH (RBC) [Entitic mass] 31.2 pg 27.0-32.0 [facility] Work Phone: Nucleated RBC/100 WBC (Bld) [Ratio] 0 % 0-5 [facility] Work Phone: MCHC Auto (RBC) [Mass/Vol]on 11-05-2021 MCHC (RBC) [Mass/Vol] 34.1 g/dL 32-36 [facility] Work Phone: Platelets bldon 11-05-2021 Platelets (Bld) [#/Vol] 211 10*3/uL 150-450 [facility] Work Phone: Basophil percentageon 2021 Chloride [Moles/Vol] 105 mmol/L 98-107 [facility] Work Phone: Glucose [Mass/Vol] 106 mg/dL 74-106 [facility] Work Phone: Comment on above: Fasting Glucose resu lt from 100 to 125 mg/dL suggests IMPAIRED HOMEOSTASIS per A.D.A. criteria. Potassium [Moles/Vol] 3.5 mmol/L 3.5-5.1 [facility] Work Phone: Sodium [Moles/Vol] 137 mmol/L 136-145 [facility] Work Phone: Laboratory - Chemistry and C hemistry - challengeon 11-04-2021 CO2 [Moles/Vol] 26.0 mmol/L 21.0-32.0 [facility] Work Phone: Urea nitrogen/Creatinine [Mass ratio] 17.1 mg/mg 10-20 [facility] Work Phone: No Panel Informationon 11-04 Estimated Creatinine Clearance Calc 30.08 ml/min [facility] Work Phone: Estimated GFR (MDRD) Amer 126 mL/min >60 [facility] Work Phone: Comment on above: GFR Calc Estimated GFR (MDRD) Non-Af Amer 104 mL/min >60 [facility] Work Phone: Comment on above: Non- GFR Calc Serum or plasma calcium josué urement (mass/volume)on 11-04-2021 Calcium [Mass/Vol] 8.7 mg/dL 8.5-10.1 [facility] Work Phone: Serum or plasma creatinine m easurement (mass/volume)on 11-04-2021 Creatinine [Mass/Vol] 0.58 mg/dL 0.55-1.02 [facility] Work Phone: Comment on above: The validity of the calculated GFR & GFRAA in patients over 70 years has not been determined. Clinical correlation is essential. Serum or plasma urea nitroge n measurement (mass/volume)on 11-04-2021 Urea nitrogen [Mass/Vol] 10 mg/dL 7-18 [facility] Work Phone: Thin prep Papanicolaou smear with manual screeningon 11-04-2021 Thin prep Papanicolaou smear with manual screening 6 5-15 [facility] Work Phone: Absolute lymphocyte counton 11-03-2021 Lymphocytes Auto (Unsp spec) [#/Vol] 1.58 10*3/uL 0.83-4.51 [facility] Work Phone: Basophil percentageon 2021 Basophils/100 WBC (Bld) 0.6 % 0-1 [facility] Work Phone: Eosinophils/100 WBC (Bld) 1.7 % 0-5 [facility] Work Phone: Neutrophils (Bld) [#/Vol] 4.2 10*3/uL 2.0-7.7 [facility] Work Phone: Neutrophils/100 WBC (Bld) 63.5 % 47-70 [facility] Work Phone: WBC (Bld) [#/Vol] 6.6 10*3/uL 4.4-11.0 [facility]: Blood erythrocytes count (nu mber/volume)on 11-03-2021 RBC (Bld) [#/Vol] 4.46 10*6/uL [facility]: Blood hemoglobin measurement (mass/volume)on 11-03-2021 Hemoglobin (Bld) [Mass/Vol] 13.8 g/dL 12.0-15.0 [facility] Work Phone: Blood lymphocytes/100 leukoc yteson 11-03-2021 Lymphocytes/100 WBC (Bld) 23.8 % 19-41 [facility] Work Phone: Blood monocytes/100 leukocyt eson 11-03-2021 Monocytes/100 WBC (Bld) 10.1 % 0-10 [facility] Work Phone: Blood platelet mean volumeon 11-03-2021 Platelet mean volume (Bld) [Entitic vol] 10.4 fL 6.2-12.0 [facility] Work Phone: Determination of erythrocyte mean corpuscular volume (MCV)on 11-03-2021 MCV (RBC) [Entitic vol] 90.4 fL 81-99 [facility] Work Phone: Hematocrit Auto (Bld) [Volum e fraction]on 11-03-2021 Hematocrit (Bld) [Volume fraction] 40.3 % 37-47 [facility] Work Phone: INR in Blood by Coagulation assayon 11-03-2021 INR Coag (Bld) [Relative time] 2.5 {INR} [facility] Work Phone: Laboratory - Coagulationon 0 11-03-2021 PT Coag (PPP) [Time] 26.7 s 11.7-14.9 [facility] Work Phone: Laboratory - Hematology and Cell countson 11-03-2021 Erythrocyte distribution width (RBC) [Entitic vol] 39.0 fL 35.1-43.9 [facility] Work Phone: Erythrocyte distribution width (RBC) [Ratio] 11.9 % 11.6-14.6 [facility] Work Phone: Immature granulocytes/100 WBC (Bld) 0.300 % 0.0-0.9 [facility] Work Phone: [phone] Comment on above: IG% - Immature Granu locytes (promyelocytes, myelocytes and metamyelocytes) > 1% indicates that a LEFT SHIFT is Present. MCH (RBC) [Entitic mass] 30.9 pg 27.0-32.0 [facility] Work Phone: Nucleated RBC/100 WBC (Bld) [Ratio] 0 % 0-5 [facility] Work Phone: MCHC Auto (RBC) [Mass/Vol]on 11-03-2021 MCHC (RBC) [Mass/Vol] 34.2 g/dL 32-36 [facility] Work Phone: Platelets bldon 11-03-2021 Platelets (Bld) [#/Vol] 188 10*3/uL 150-450 [facility] Work Phone: [phone] Absolute lymphocyte counton 11-02-2021 Lymphocytes Auto (Unsp spec) [#/Vol] 1.37 10*3/uL 0.83-4.51 [facility] Work Phone: [phone] Basophil percentageon 2021 Basophil percentage 0 SEEN /hpf 0-5 [facility] Work Phone: Basophils/100 WBC (Bld) 0.4 % 0-1 [facility] Work Phone: Chloride [Moles/Vol] 92 mmol/L 98-107 [facility] Work Phone: Eosinophils/100 WBC (Bld) 0.3 % 0-5 [facility] Work Phone: Glucose [Mass/Vol] 182 mg/dL 74-106 [facility] Work Phone: Comment on above: Fasting Glucose resu lt greater than or equal to 126 mg/dL suggests DIABETES MELLITUS per A.D.A. criteria. Neutrophils (Bld) [#/Vol] 6.0 10*3/uL 2.0-7.7 [facility] Work Phone: Neutrophils/100 WBC (Bld) 75.5 % 47-70 [facility] Work Phone: Potassium [Moles/Vol] 3.2 mmol/L 3.5-5.1 [facility] Work Phone: Sodium [Moles/Vol] 129 mmol/L 136-145 [facility] Work Phone: WBC (Bld) [#/Vol] 7.9 10*3/uL 4.4-11.0 [facility] Work Phone: Bilirubin Test strip Ql (U)o n 11-02-2021 Bilirubin Ql (U) Negative Negative [facility] Work Phone: Blood erythrocytes count (nu mber/volume)on 11-02-2021 RBC (Bld) [#/Vol] 4.51 10*6/uL 4.2-5.4 [facility]: Blood hemoglobin measurement (mass/volume)on 11-02-2021 Hemoglobin (Bld) [Mass/Vol] 14.1 g/dL 12.0-15.0 [facility] Work Phone: [phone] Blood lymphocytes/100 leukoc yteson 11-02-2021 Lymphocytes/100 WBC (Bld) 17.4 % 19-41 [facility] Work Phone: Blood monocytes/100 leukocyt eson 11-02-2021 Monocytes/100 WBC (Bld) 6.1 % 0-10 [facility] Work Phone: Blood platelet mean volumeon 11-02-2021 Platelet mean volume (Bld) [Entitic vol] 10.1 fL 6.2-12.0 [facility] Work Phone: Determination of erythrocyte mean corpuscular volume (MCV)on 11-02-2021 MCV (RBC) [Entitic vol] 89.1 fL 81-99 [facility] Work Phone: Hematocrit Auto (Bld) [Volum e fraction]on 11-02-2021 Hematocrit (Bld) [Volume fraction] 40.2 % 37-47 [facility] Work Phone: INR in Blood by Coagulation assayon 11-02-2021 INR Coag (Bld) [Relative time] 2.2 {INR} [facility] Work Phone: Ketones Test strip Ql (U)on 11-02-2021 Ketones Ql (U) 5 mg/dl Negative [facility] Work Phone: Laboratory - Chemistry and C hemistry - challengeon 11-02-2021 Sodium (U) [Moles/Vol] 35 mmol/L Not Establ. [facility] Work Phone: CO2 [Moles/Vol] 30.0 mmol/L 21.0-32.0 [facility] Work Phone: Urea nitrogen/Creatinine [Mass ratio] 18.4 mg/mg 10-20 [facility] Work Phone: Laboratory - Coagulationon 0 11-02-2021 PT Coag (PPP) [Time] 23.8 s 11.7-14.9 [facility] Work Phone: Laboratory - Hematology and Cell countson 11-02-2021 Erythrocyte distribution width (RBC) [Entitic vol] 37.6 fL 35.1-43.9 [facility] Work Phone: Erythrocyte distribution width (RBC) [Ratio] 11.7 % 11.6-14.6 [facility] Work Phone: Immature granulocytes/100 WBC (Bld) 0.300 % 0.0-0.9 [facility] Work Phone: Comment on above: IG% - Immature Granu locytes (promyelocytes, myelocytes and metamyelocytes) > 1% indicates that a LEFT SHIFT is Present. MCH (RBC) [Entitic mass] 31.3 pg 27.0-32.0 [facility] Work Phone: Nucleated RBC/100 WBC (Bld) [Ratio] 0 % 0-5 [facility] Work Phone: MCHC Auto (RBC) [Mass/Vol]on 11-02-2021 MCHC (RBC) [Mass/Vol] 35.1 g/dL 32-36 [facility] Work Phone: Mucus LM Ql (Urine sed)on Mucus Ql (Urine sed) 0 SEEN /hpf [facility] Work Phone: Nitrite Test strip Ql (U)on 11-02-2021 Nitrite Ql (U) Negative Negative [facility] Work Phone: No Panel Informationon 11-02 Estimated Creatinine Clearance Calc 36.68 ml/min [facility] Work Phone: Estimated GFR (MDRD) Amer 86 mL/min >60 [facility] Work Phone: Comment on above: GFR Calc Estimated GFR (MDRD) Non-Af Amer 71 mL/min >60 [facility] Work Phone: Comment on above: Non- GFR Calc Troponin I High Sensitivity 12 pg/mL 3.0-54.0 [facility] Work Phone: Comment on above: Please Note: New Amber t Units and Gender Specific Reference Ranges. For more information see Policy Stat Procedure [employer] High Sensitivity Troponin (TNIH) and attachments. Platelets bldon 11-02-2021 Platelets (Bld) [#/Vol] 222 10*3/uL 150-450 [facility] Work Phone: Protein Test strip Ql (U)on 11-02-2021 Protein Ql (U) Negative Negative [facility] Work Phone: Serum or plasma calcium josué urement (mass/volume)on 11-02-2021 Calcium [Mass/Vol] 9.1 mg/dL 8.5-10.1 [facility] Work Phone: Serum or plasma creatinine m easurement (mass/volume)on 11-02-2021 Creatinine [Mass/Vol] 0.82 mg/dL 0.55-1.02 [facility] Work Phone: Comment on above: The validity of the calculated GFR & GFRAA in patients over 70 years has not been determined. Clinical correlation is essential. Serum or plasma urea nitroge n measurement (mass/volume)on 11-02-2021 Urea nitrogen [Mass/Vol] 15 mg/dL 7-18 [facility] Work Phone: Squamous epithelial cells de tection in urine sediment by light microscopyon 11-02-2021 Epithelial cells.squamous LM Ql (Urine sed) 0-5 SEEN /hpf 5-10 [facility] Work Phone: Thin prep Papanicolaou smear with manual screeningon 11-02-2021 Thin prep Papanicolaou smear with manual screening 275 mOsm/KG 280-301 [facility] Work Phone: Thin prep Papanicolaou smear with manual screening 7 5-15 [facility] Work Phone: Urine blood detectionon RBC Ql (U) 25 /ul Negative [facility] Work Phone: RBC Ql (U) 0-5 SEEN /hpf 0-5 [facility] Work Phone: Urine clarityon 11-02-2021 Clarity (U) Clear Clear [facility] Work Phone: Urine color determinationon 11-02-2021 Color (U) Yellow Yellow [facility] Work Phone: Urine glucose detectionon Glucose Ql (U) Normal mg/dl Normal [facility] Work Phone: Urine leukocyte esterase det ection by dipstickon 11-02-2021 Leukocyte esterase Test strip Ql (U) Negative Negative [facility] Work Phone: Urine osmolality measurement on 11-02-2021 Osmolality (U) [Osmolality] 253 mOsm/KG >50 [facility] Work Phone: Comment on above: Normal Urine Referen ce Ranges Random: 50 - 1200 mOsm/kg H20 depending on fluid intake Random: >850 mOsm/kg after 12 hour fluid restriction 24 hour: ~300 - 900 mOsm/kg H2O Urine pHon 11-02-2021 pH (U) 6.0 [pH] 5.0 - 8.0 [facility] Work Phone: Urine sediment bacteria coun t by microscopy (number/high power field)on 11-02-2021 Bacteria LM.HPF (Urine sed) [#/Area] 0 /[HPF] None Seen [facility] Work Phone: Urine specific gravity measu rementon 11-02-2021 Specific gravity (U) [Rel density] 1.015 1.002-1.030 [facility] Work Phone: Urobilinogen Auto test strip Ql (U)on 11-02-2021 Urobilinogen Ql (U) Normal mg/dl Normal [facility] Work Phone: Basophil percentageon 2021 Chloride [Moles/Vol] 99 mmol/L 98-[address] [facility] Work Phone: Glucose [Mass/Vol] 108 mg/dL 74-106 [facility] Work Phone: Comment on above: Fasting Glucose resu lt from 100 to 125 mg/dL suggests IMPAIRED HOMEOSTASIS per A.D.A. criteria. Potassium [Moles/Vol] 4.2 mmol/L 3.5-5.1 [facility] Work Phone: Sodium [Moles/Vol] 137 mmol/L 136-145 [facility] Work Phone: INR in Blood by Coagulation assayon 10-21-2021 INR Coag (Bld) [Relative time] 2.1 {INR} [facility] Work Phone: Laboratory - Chemistry and C hemistry - challengeon 10-21-2021 CO2 [Moles/Vol] 34.0 mmol/L 21.0-32.0 [facility] Work Phone: Urea nitrogen/Creatinine [Mass ratio] 19.7 mg/mg 10-20 [facility] Work Phone: Laboratory - Coagulationon 0 10-21-2021 PT Coag (PPP) [Time] 23.2 s 11.7-14.9 [facility] Work Phone: No Panel Informationon 10-21 Estimated GFR (MDRD) Amer 93 mL/min >60 [facility] Work Phone: Comment on above: GFR Calc Estimated GFR (MDRD) Non-Af Amer 77 mL/min >60 [facility] Work Phone: Comment on above: Non- GFR Calc Serum or plasma calcium josué urement (mass/volume)on 10-21-2021 Calcium [Mass/Vol] 9.1 mg/dL 8.5-10.1 [facility] Work Phone: Serum or plasma creatinine m easurement (mass/volume)on 10-21-2021 Creatinine [Mass/Vol] 0.76 mg/dL 0.55-1.02 [facility] Work Phone: Comment on above: The validity of the calculated GFR & GFRAA in patients over 70 years has not been determined. Clinical correlation is essential. Serum or plasma urea nitroge n measurement (mass/volume)on 10-21-2021 Urea nitrogen [Mass/Vol] 15 mg/dL 7-18 [facility] Work Phone: Thin prep Papanicolaou smear with manual screeningon 10-21-2021 Thin prep Papanicolaou smear with manual screening 4 - [facility] Work Phone: INR in Blood by Coagulation assayon 10-13-2021 INR Coag (Bld) [Relative time] 3.1 {INR} [facility] Work Phone: Laboratory - Coagulationon 0 10-13-2021 PT Coag (PPP) [Time] 31.8 s 11.7-14.9 [facility] Work Phone: Laboratory - Coagulationon 0 10-06-2021 INR Coag (Bld) [Relative time] 1.6 {INR} [facility] Work Phone: Comment on above: Critical Value > 4.0 Whole blood prothrombin time on 10-06-2021 PT Coag (Bld) [Time] 19.7 s 11.7-14.9 [facility] Work Phone: Basophil percentageon 2021 Chloride [Moles/Vol] 100 mmol/L 98-107 [facility] Work Phone: Glucose [Mass/Vol] 87 mg/dL 74-106 [facility] Work Phone: Potassium [Moles/Vol] 3.6 mmol/L 3.5-5.1 [facility] Work Phone: [phone] Sodium [Moles/Vol] 138 mmol/L 136-145 [facility] Work Phone: Laboratory - Chemistry and C hemistry - challengeon 09-29-2021 CO2 [Moles/Vol] 31.0 mmol/L 21.0-32.0 [facility] Work Phone: [phone] Natriuretic peptide B (Bld) [Mass/Vol] 372.7 pg/mL 0-100 [facility] Work Phone: Urea nitrogen/Creatinine [Mass ratio] 17.1 mg/mg 10-20 [facility] Work Phone: No Panel Informationon 09-29 Estimated GFR (MDRD) Amer 113 mL/min >60 [facility] Work Phone: Comment on above: GFR Calc Estimated GFR (MDRD) Non-Af Amer 94 mL/min >60 [facility] Work Phone: Comment on above: Non- GFR Calc Serum or plasma calcium josué urement (mass/volume)on 09-29-2021 Calcium [Mass/Vol] 8.7 mg/dL 8.5-10.1 [facility] Work Phone: Serum or plasma creatinine m easurement (mass/volume)on 09-29-2021 Creatinine [Mass/Vol] 0.64 mg/dL 0.55-1.02 [facility] Work Phone: Comment on above: The validity of the calculated GFR & GFRAA in patients over 70 years has not been determined. Clinical correlation is essential. Serum or plasma urea nitroge n measurement (mass/volume)on 09-29-2021 Urea nitrogen [Mass/Vol] 11 mg/dL 7-18 [facility] Work Phone: Thin prep Papanicolaou smear with manual screeningon 09-29-2021 Thin prep Papanicolaou smear with manual screening 7 5-15 [facility] Work Phone: Laboratory - Coagulationon 0 09-14-2021 INR Coag (Bld) [Relative time] 2.1 {INR} [facility] Work Phone: Comment on above: Critical Value > 4.0 Whole blood prothrombin time on 09-14-2021 PT Coag (Bld) [Time] 25.1 s 11.7-14.9 [facility] Work Phone: Laboratory - Coagulationon 0 08-27-2021 INR Coag (Bld) [Relative time] 2.4 {INR} [facility] Work Phone: Comment on above: Critical Value > 4.0 Whole blood prothrombin time on 08-27-2021 PT Coag (Bld) [Time] 27.5 s 11.7-14.9 [facility] Work Phone: Laboratory - Coagulationon 0 08-11-2021 INR Coag (Bld) [Relative time] 1.3 {INR} [facility] Work Phone: Comment on above: Critical Value > 4.0 Whole blood prothrombin time on 08-11-2021 PT Coag (Bld) [Time] 15.7 s 11.7-14.9 [facility] Work Phone: Laboratory - Coagulationon 0 07-28-2021 INR Coag (Bld) [Relative time] 1.2 {INR} [facility] Work Phone: Comment on above: Critical Value > 4.0 Whole blood prothrombin time on 07-28-2021 PT Coag (Bld) [Time] 15.1 s 11.7-14.9 [facility] Work Phone: Laboratory - Coagulationon 0 07-14-2021 INR Coag (Bld) [Relative time] 1.5 {INR} [facility] Work Phone: Comment on above: Critical Value > 4.0 Whole blood prothrombin time on 07-14-2021 PT Coag (Bld) [Time] 18.2 s 11.9-14.4 [facility] Work Phone: Absolute lymphocyte counton 06-26-2021 Lymphocytes Auto (Unsp spec) [#/Vol] 2.42 10*3/uL 0.83-4.51 [facility] Work Phone: Basophil percentageon 2021 Basophils/100 WBC (Bld) 0.7 % 0-1 [facility] Work Phone: Chloride [Moles/Vol] 105 mmol/L 98-107 [facility] Work Phone: Eosinophils/100 WBC (Bld) 3.6 % 0-5 [facility] Work Phone: Glucose [Mass/Vol] 122 mg/dL 74-106 [facility] Work Phone: Comment on above: Fasting Glucose resu lt from 100 to 125 mg/dL suggests IMPAIRED HOMEOSTASIS per A.D.A. criteria. Neutrophils (Bld) [#/Vol] 5.0 10*3/uL 2.0-7.7 [facility] Work Phone: Neutrophils/100 WBC (Bld) 58.8 % 47-70 [facility] Work Phone: Potassium [Moles/Vol] 3.8 mmol/L 3.5-5.1 [facility] Work Phone: Sodium [Moles/Vol] 140 mmol/L 136-145 [facility] Work Phone: WBC (Bld) [#/Vol] 8.6 10*3/uL 4.4-11.0 [facility] Work Phone: Blood erythrocytes count (nu mber/volume)on 06-26-2021 RBC (Bld) [#/Vol] 5.15 10*6/uL 4.2-5.4 [facility] Work Phone: Blood hemoglobin measurement (mass/volume)on 06-26-2021 Hemoglobin (Bld) [Mass/Vol] 15.7 g/dL 12.0-15.0 [facility] Work Phone: Blood lymphocytes/100 leukoc yteson 06-26-2021 Lymphocytes/100 WBC (Bld) 28.3 % 19-41 [facility] Work Phone: Blood monocytes/100 leukocyt eson 06-26-2021 Monocytes/100 WBC (Bld) 8.4 % 0-10 [facility] Work Phone: Blood platelet mean volumeon 06-26-2021 Platelet mean volume (Bld) [Entitic vol] 10.2 fL 6.2-12.0 [facility] Work Phone: Determination of erythrocyte mean corpuscular volume (MCV)on 06-26-2021 MCV (RBC) [Entitic vol] 94.0 fL 81-99 [facility] Work Phone: Hematocrit Auto (Bld) [Volum e fraction]on 06-26-2021 Hematocrit (Bld) [Volume fraction] 48.4 % 37-47 [facility] Work Phone: Laboratory - Chemistry and C hemistry - challengeon 06-26-2021 CO2 [Moles/Vol] 32.0 mmol/L 21.0-32.0 [facility] Work Phone: Urea nitrogen/Creatinine [Mass ratio] 20.4 mg/mg 10-20 [facility] Work Phone: Laboratory - Hematology and Cell countson 06-26-2021 Erythrocyte distribution width (RBC) [Entitic vol] 43.7 fL 35.1-43.9 [facility] Work Phone: Erythrocyte distribution width (RBC) [Ratio] 12.7 % 11.6-14.6 [facility] Work Phone: Immature granulocytes/100 WBC (Bld) 0.200 % 0.0-0.9 [facility] Work Phone: Comment on above: IG% - Immature Granu locytes (promyelocytes, myelocytes and metamyelocytes) > 1% indicates that a LEFT SHIFT is Present. MCH (RBC) [Entitic mass] 30.5 pg 27.0-32.0 [facility] Work Phone: Nucleated RBC/100 WBC (Bld) [Ratio] 0 % 0-5 [facility] Work Phone: MCHC Auto (RBC) [Mass/Vol]on 06-26-2021 MCHC (RBC) [Mass/Vol] 32.4 g/dL 32-36 [facility] Work Phone: No Panel Informationon 06-26 Estimated Creatinine Clearance Calc 32.17 ml/min [facility] Work Phone: Estimated GFR (MDRD) Amer 114 mL/min >60 [facility] Work Phone: Comment on above: GFR Calc Estimated GFR (MDRD) Non-Af Amer 94 mL/min >60 [facility] Work Phone: Comment on above: Non- GFR Calc Platelets bldon 06-26-2021 Platelets (Bld) [#/Vol] 234 10*3/uL 150-450 [facility] Work Phone: Serum or plasma calcium josué urement (mass/volume)on 06-26-2021 Calcium [Mass/Vol] 8.6 mg/dL 8.5-10.1 [facility] Work Phone: Serum or plasma creatinine m easurement (mass/volume)on 06-26-2021 Creatinine [Mass/Vol] 0.64 mg/dL 0.55-1.02 [facility] Work Phone: Comment on above: The validity of the calculated GFR & GFRAA in patients over 70 years has not been determined. Clinical correlation is essential. Serum or plasma urea nitroge n measurement (mass/volume)on 06-26-2021 Urea nitrogen [Mass/Vol] 13 mg/dL 7-18 [facility] Work Phone: Thin prep Papanicolaou smear with manual screeningon 06-26-2021 Thin prep Papanicolaou smear with manual screening 3 5-15 [facility] Work Phone: INR in Blood by Coagulation assayon 06-24-2021 INR Coag (Bld) [Relative time] 1.4 {INR} [facility] Work Phone: Laboratory - Coagulationon 0 06-24-2021 PT Coag (PPP) [Time] 16.2 s 11.7-14.9 [facility] Work Phone: No Panel Informationon 06-24 SARS-CoV-2 Antigen (Rapid) [facility] Work Phone: Absolute lymphocyte counton 06-18-2021 Lymphocytes Auto (Unsp spec) [#/Vol] 1.81 10*3/uL 0.83-4.51 [facility] Work Phone: [phone] Basophil percentageon 2021 Basophils/100 WBC (Bld) 0.5 % 0-1 [facility] Work Phone: Chloride [Moles/Vol] 103 mmol/L 98-107 [facility] Work Phone: [phone] Eosinophils/100 WBC (Bld) 4.1 % 0-5 [facility] Work Phone: Glucose [Mass/Vol] 127 mg/dL 74-106 [facility] Work Phone: Comment on above: Fasting Glucose resu lt greater than or equal to 126 mg/dL suggests DIABETES MELLITUS per A.D.A. criteria. Neutrophils (Bld) [#/Vol] 5.7 10*3/uL 2.0-7.7 [facility] Work Phone: Neutrophils/100 WBC (Bld) 66.6 % 47-70 [facility] Work Phone: Potassium [Moles/Vol] 3.7 mmol/L 3.5-5.1 [facility] Work Phone: Sodium [Moles/Vol] 136 mmol/L 136-145 [facility] Work Phone: WBC (Bld) [#/Vol] 8.5 10*3/uL 4.4-11.0 [facility] Work Phone: Blood erythrocytes count (nu mber/volume)on 06-18-2021 RBC (Bld) [#/Vol] 4.20 10*6/uL 4.2-5.4 [facility] Work Phone: Blood hemoglobin measurement (mass/volume)on 06-18-2021 Hemoglobin (Bld) [Mass/Vol] 13.0 g/dL 12.0-15.0 [facility] Work Phone: Blood lymphocytes/100 leukoc yteson 06-18-2021 Lymphocytes/100 WBC (Bld) 21.3 % 19-41 [facility] Work Phone: Blood monocytes/100 leukocyt eson 06-18-2021 Monocytes/100 WBC (Bld) 7.4 % 0-10 [facility] Work Phone: Blood platelet mean volumeon 06-18-2021 Platelet mean volume (Bld) [Entitic vol] 10.5 fL 6.2-12.0 [facility] Work Phone: Determination of erythrocyte mean corpuscular volume (MCV)on 06-18-2021 MCV (RBC) [Entitic vol] 89.8 fL 81-99 [facility] Work Phone: Hematocrit Auto (Bld) [Volum e fraction]on 06-18-2021 Hematocrit (Bld) [Volume fraction] 37.7 % 37-47 [facility] Work Phone: INR in Blood by Coagulation assayon 06-18-2021 INR Coag (Bld) [Relative time] 2.3 {INR} [facility] Work Phone: Laboratory - Chemistry and C hemistry - challengeon 06-18-2021 CO2 [Moles/Vol] 28.0 mmol/L 21.0-32.0 [facility] Work Phone: Urea nitrogen/Creatinine [Mass ratio] 23.0 mg/mg 10-20 [facility] Work Phone: Laboratory - Coagulationon 0 06-18-2021 PT Coag (PPP) [Time] 24.7 s 11.7-14.9 [facility] Work Phone: Laboratory - Hematology and Cell countson 06-18-2021 Erythrocyte distribution width (RBC) [Entitic vol] 40.2 fL 35.1-43.9 [facility] Work Phone: Erythrocyte distribution width (RBC) [Ratio] 12.2 % 11.6-14.6 [facility] Work Phone: Immature granulocytes/100 WBC (Bld) 0.100 % 0.0-0.9 [facility] Work Phone: Comment on above: IG% - Immature Granu locytes (promyelocytes, myelocytes and metamyelocytes) > 1% indicates that a LEFT SHIFT is Present. MCH (RBC) [Entitic mass] 31.0 pg 27.0-32.0 [facility] Work Phone: Nucleated RBC/100 WBC (Bld) [Ratio] 0 % 0-5 [facility] Work Phone: MCHC Auto (RBC) [Mass/Vol]on 06-18-2021 MCHC (RBC) [Mass/Vol] 34.5 g/dL 32-36 [facility] Work Phone: No Panel Informationon 06-18 SARS-CoV-2 Antigen (Rapid) [facility] Work Phone: Estimated Creatinine Clearance Calc 32.17 ml/min [facility] Work Phone: Estimated GFR (MDRD) Amer 103 mL/min >60 [facility] Work Phone: Comment on above: GFR Calc Estimated GFR (MDRD) Non-Af Amer 85 mL/min >60 [facility] Work Phone: Comment on above: Non- GFR Calc Platelets bldon 06-18-2021 Platelets (Bld) [#/Vol] 180 10*3/uL 150-450 [facility] Work Phone: Serum or plasma calcium josué urement (mass/volume)on 06-18-2021 Calcium [Mass/Vol] 8.1 mg/dL 8.5-10.1 [facility] Work Phone: Serum or plasma creatinine m easurement (mass/volume)on 06-18-2021 Creatinine [Mass/Vol] 0.70 mg/dL 0.55-1.02 [facility] Work Phone: Comment on above: The validity of the calculated GFR & GFRAA in patients over 70 years has not been determined. Clinical correlation is essential. Serum or plasma urea nitroge n measurement (mass/volume)on 06-18-2021 Urea nitrogen [Mass/Vol] 16 mg/dL 7-18 [facility] Work Phone: Thin prep Papanicolaou smear with manual screeningon 06-18-2021 Thin prep Papanicolaou smear with manual screening 5 5-15 [facility] Work Phone: Basophil percentageon 2021 Bilirubin [Mass/Vol] 0.50 mg/dL 0.20-1.00 [facility] Work Phone: Comment on above: For patients on eltr ombopag therapy, use of Dimension Virgin TBIL is not recommended. Protein [Mass/Vol] 6.8 g/dL 6.4-8.2 [facility] Work Phone: Laboratory - Chemistry and C hemistry - challengeon 06-17-2021 ALP [Catalytic activity/Vol] 68 U/L 45-117 [facility] Work Phone: ALT [Catalytic activity/Vol] 24 U/L 13-56 [facility] Work Phone: Globulin (S) [Mass/Vol] 3.7 g/dL 2.2-4.2 [facility] Work Phone: Serum or plasma albumin josué urement (mass/volume)on 06-17-2021 Albumin [Mass/Vol] 3.1 g/dL 3.2-5.0 [facility] Work Phone: Serum or plasma albumin/glob ulin mass ratioon 06-17-2021 Albumin/Globulin [Mass ratio] 0.8 {ratio} 0.9-2.4 [facility] Work Phone: Thin prep Papanicolaou smear with manual screeningon 06-17-2021 Thin prep Papanicolaou smear with manual screening 23 U/L 15-37 [facility] Work Phone: Laboratory - Coagulationon 0 06-10-2021 INR Coag (Bld) [Relative time] 2.0 {INR} [facility] Work Phone: Comment on above: Critical Value > 4.0 Whole blood prothrombin time on 06-10-2021 PT Coag (Bld) [Time] 22.8 s 11.9-14.4 [facility] Work Phone: Laboratory - Coagulationon 1 07-13-2020 INR Coag (Bld) [Relative time] 1.9 {INR} [facility] Work Phone: Comment on above: Critical Value > 4.0 Whole blood prothrombin time on 05-12-2021 PT Coag (Bld) [Time] 22.0 s 11.9-14.4 [facility] Work Phone: PROon 04-16-2019 INR Coag (PPP) [Relative time] 2.3 {INR} Normal [facility] ([place]) Comment on above: Order Comment: order ed secondary to warfarin order Result Comment: [employer] (CHEST, 1992, 102:312S-25S) recommended therapeutic range for oral anticoagulant therapy is: LOW RISK: Prophylaxis of venous thrombosis INR: 2.0-3.0 Treatment of pulmonary embolism 2.0-3.0 Prevention of systemic embolism 2.0-3.0 HIGH RISK: Mechanical prosthetic valves 2.5-3.5 Performed By: #### C BC, ADIFF, ANEU, PRO, CMP, GFR #### [facility] [address] [place] [address] PT Coag (PPP) [Time] 26.9 s High 9.0-14.6 [facility] [place] Comment on above: Order Comment: order ed secondary to warfarin order Result Comment: Effe ctive 12/11/07, Protime results may be affected by some antibiotics (i.e. Ciprofloxacin, Azithromycin, Bactrim) which may potentiate the action of oral anticoagulants, with further increases in Protime/INR. Performed By: #### C BC, ADIFF, ANEU, PRO, CMP, GFR #### [address] [address] .Auto Diffon 04-15-2019 Ammonia (P) [Mass/Vol] 0.50 10 3/mcL Normal 0.09-1.40 [facility] ([place]) Comment on above: Performed By: #### C BC, ADIFF, ANEU, PRO, CMP, GFR #### [place] [address] Basophils (Bld) [#/Vol] 0.10 10 3/mcL Normal 0.00-0.27 [facility] ([place]) Comment on above: Performed By: #### C BC, ADIFF, ANEU, PRO, CMP, GFR #### [place] [id number] Basophils/100 WBC (Bld) 0.8 % Normal 0.0-2.5 [facility] [place] Comment on above: Performed By: #### C BC, ADIFF, ANEU, PRO, CMP, GFR #### [address] [address] Eosinophils (Bld) [#/Vol] 0.40 10 3/mcL Normal 0.00-0.65 [facility] ([place]) Comment on above: Performed By: #### C BC, ADIFF, ANEU, PRO, CMP, GFR #### [place] [id number] Eosinophils/100 WBC (Bld) 5.9 % Normal 0.0-6.0 [facility] ([place]) Comment on above: Performed By: #### C BC, ADIFF, ANEU, PRO, CMP, GFR #### [address] [address] Lymphocytes (Bld) [#/Vol] 2.40 10 3/mcL Normal 0.90-4.32 [facility] ([place]) Comment on above: Performed By: #### C BC, ADIFF, ANEU, PRO, CMP, GFR #### [address] [address] Lymphocytes/100 WBC (Bld) 34.4 % Normal 20.0-40.0 [facility] ([place] Comment on above: Performed By: #### C BC, ADIFF, ANEU, PRO, CMP, GFR #### [address] [address] Monocytes/100 WBC (Bld) 6.5 % Normal 2.0-13.0 [facility] Comment on above: Performed By: #### C BC, ADIFF, ANEU, PRO, CMP, GFR #### [address] [address] Neutrophils/100 WBC (Bld) 52.4 % Normal 50.0-75.0 [facility] ([place] Comment on above: Performed By: #### C BC, ADIFF, ANEU, PRO, CMP, GFR #### [address] [address] .GFRon 04-15-2019 GFR >60 [facility] [place] Comment on above: Result Comment: GFR Population [...] BC, ADIFF, ANEU, PRO, CMP, GFR #### [address] [address] GFR Non- >60 Normal [facility] ([place] Comment on above: Result Comment: GFR Population [...] BC, ADIFF, ANEU, PRO, CMP, GFR #### [address] [address] .NEUABSon 04-15-2019 Neutrophils (Bld) [#/Vol] 3.60 10 3/mcL Normal 2.25-8.10 [facility] ([place]) Comment on above: Performed By: #### C BC, ADIFF, ANEU, PRO, CMP, GFR #### [address] [address] BMPon 04-15-2019 Creatinine [Mass/Vol] 0.64 mg/dL Normal 0.50-1.20 [facility] ([place]) Comment on above: Performed By: #### C BC, ADIFF, ANEU, PRO, CMP, GFR #### [place] [address] Urea nitrogen/Creatinine [Mass ratio] 17.2 ratio Normal 10.0-22.0 [facility] ([place] Comment on above: Performed By: #### C BC, ADIFF, ANEU, PRO, CMP, GFR #### [place] [phone] Calcium [Mass/Vol] 7.9 mg/dL Low 8.4-10.1 [facility] ([place]) Comment on above: Performed By: #### C BC, ADIFF, ANEU, PRO, CMP, GFR #### [place] [phone] Chloride [Moles/Vol] 109 mmol/L Normal 98-110 [facility] [place] Comment on above: Performed By: #### C BC, ADIFF, ANEU, PRO, CMP, GFR #### [address] [address] CO2 [Moles/Vol] 29 mmol/L Normal 22-32 [facility] ([place] Comment on above: Performed By: #### C BC, ADIFF, ANEU, PRO, CMP, GFR #### [place] [address] Electrolyte Balance 6.0 mEq/L Normal 4.0-15.0 [facility] ([place]) Comment on above: Performed By: #### C BC, ADIFF, ANEU, PRO, CMP, GFR #### [place] [phone] Glucose [Mass/Vol] 100 mg/dL Normal 82-115 [facility] ([place]) Comment on above: Performed By: #### C BC, ADIFF, ANEU, PRO, CMP, GFR #### [place] [address] Potassium [Moles/Vol] 4.0 mmol/L Normal 3.5-5.0 [facility] ([place] Comment on above: Performed By: #### C BC, ADIFF, ANEU, PRO, CMP, GFR #### [place] [phone] Sodium [Moles/Vol] 144 mmol/L Normal 136-145 [facility] ([place]) Comment on above: Performed By: #### C BC, ADIFF, ANEU, PRO, CMP, GFR #### [place] [phone] Urea nitrogen [Mass/Vol] 11.0 mg/dL Normal 8.0-22.0 [facility] ([place] Comment on above: Performed By: #### C BC, ADIFF, ANEU, PRO, CMP, GFR #### [place] [phone] CBCon 04-15-2019 Erythrocyte distribution width (RBC) [Ratio] 13.5 % Normal 11.5-15.5 [facility] ([place] Comment on above: Performed By: #### C BC, ADIFF, ANEU, PRO, CMP, GFR #### [place] [phone] Hematocrit (Bld) [Volume fraction] 33.9 % Low 34.0-46.0 [facility] ([place] Comment on above: Performed By: #### C BC, ADIFF, ANEU, PRO, CMP, GFR #### [place] [address] Hemoglobin (Bld) [Mass/Vol] 11.6 G/dL Low 12.0-16.0 [facility] ([place] Comment on above: Performed By: #### C BC, ADIFF, ANEU, PRO, CMP, GFR #### [place] [phone] MCH (RBC) [Entitic mass] 31.8 pg Normal 27.0-33.0 [facility] ([place] Comment on above: Performed By: #### C BC, ADIFF, ANEU, PRO, CMP, GFR #### [place] [phone] MCHC (RBC) [Mass/Vol] 34.3 G/dL Normal 32.0-36.0 [facility] ([place] Comment on above: Performed By: #### C BC, ADIFF, ANEU, PRO, CMP, GFR #### [place] [phone] MCV (RBC) [Entitic vol] 92.7 fL Normal 80.0-99.0 [facility] ([place]) Comment on above: Performed By: #### C BC, ADIFF, ANEU, PRO, CMP, GFR #### [place] [phone] Platelet mean volume (Bld) [Entitic vol] 8.6 fL Normal 6.6-10.5 [facility] ([place] Comment on above: Performed By: #### C BC, ADIFF, ANEU, PRO, CMP, GFR #### [place] [phone] Platelets (Bld) [#/Vol] 198 10 3/mcL Normal 150-450 [facility] ([place] Comment on above: Performed By: #### C BC, ADIFF, ANEU, PRO, CMP, GFR #### [address] [address] RBC (Bld) [#/Vol] 3.65 10 6/mcL Low 4.10-5.30 [facility] [place] Comment on above: Performed By: #### C BC, ADIFF, ANEU, PRO, CMP, GFR #### [place] [id number] [address] [place] [address] WBC (Bld) [#/Vol] 6.90 10 3/mcL Normal 4.50-10.80 [facility] [place] Comment on above: Performed By: #### C BC, ADIFF, ANEU, PRO, CMP, GFR #### [place] [address] MGon 04-15-2019 Magnesium [Mass/Vol] 2.2 mg/dL Normal 1.6-2.4 [facility] [place] Comment on above: Performed By: #### C BC, ADIFF, ANEU, PRO, CMP, GFR #### [place] [address] PROon 04-15-2019 INR Coag (PPP) [Relative time] 2.0 {INR} Normal [facility] ([place] Comment on above: Order Comment: order ed secondary to warfarin order Result Comment: [employer] (CHEST, 1992, 102:312S-25S) recommended therapeutic range for oral anticoagulant therapy is: LOW RISK: Prophylaxis of venous thrombosis INR: 2.0-3.0 Treatment of pulmonary embolism 2.0-3.0 Prevention of systemic embolism 2.0-3.0 HIGH RISK: Mechanical prosthetic valves 2.5-3.5 Performed By: #### C BC, ADIFF, ANEU, PRO, CMP, GFR #### [address] [address] PT Coag (PPP) [Time] 23.4 s High 9.0-14.6 [facility] [place] Comment on above: Order Comment: order ed secondary to warfarin order Result Comment: Effe ctive 12/11/07, Protime results may be affected by some antibiotics (i.e. Ciprofloxacin, Azithromycin, Bactrim) which may potentiate the action of oral anticoagulants, with further increases in Protime/INR. Performed By: #### C BC, ADIFF, ANEU, PRO, CMP, GFR #### [address] [address] .Auto Diffon 04-14-2019 Ammonia (P) [Mass/Vol] 0.40 10 3/mcL Normal 0.09-1.40 [facility] ([place]) Comment on above: Performed By: #### C BC, ADIFF, ANEU, PRO, CMP, GFR #### [address] [address] Basophils (Bld) [#/Vol] 0.00 10 3/mcL Normal 0.00-0.27 [facility] ([place]) Comment on above: Performed By: #### C BC, ADIFF, ANEU, PRO, CMP, GFR #### [place] [phone] Basophils/100 WBC (Bld) 0.6 % Normal 0.0-2.5 [facility] [place] Comment on above: Performed By: #### C BC, ADIFF, ANEU, PRO, CMP, GFR #### [address] [address] Eosinophils (Bld) [#/Vol] 0.30 10 3/mcL Normal 0.00-0.65 [facility] ([place]) Comment on above: Performed By: #### C BC, ADIFF, ANEU, PRO, CMP, GFR #### [address] [address] Eosinophils/100 WBC (Bld) 5.1 % Normal 0.0-6.0 [facility] ([place]) Comment on above: Performed By: #### C BC, ADIFF, ANEU, PRO, CMP, GFR #### [address] [address] Lymphocytes (Bld) [#/Vol] 2.30 10 3/mcL Normal 0.90-4.32 [facility] ([place]) Comment on above: Performed By: #### C BC, ADIFF, ANEU, PRO, CMP, GFR #### [address] [address] Lymphocytes/100 WBC (Bld) 35.3 % Normal 20.0-40.0 [facility] ([place] Comment on above: Performed By: #### C BC, ADIFF, ANEU, PRO, CMP, GFR #### [address] [address] Monocytes/100 WBC (Bld) 6.9 % Normal 2.0-13.0 [facility] [place] Comment on above: Performed By: #### C BC, ADIFF, ANEU, PRO, CMP, GFR #### [address] [address] Neutrophils/100 WBC (Bld) 52.1 % Normal 50.0-75.0 [facility] ([place] Comment on above: Performed By: #### C BC, ADIFF, ANEU, PRO, CMP, GFR #### [address] [address] .GFRon 04-14-2019 GFR >60 Normal [facility] [place] Comment on above: Result Comment: GFR Population [...] BC, ADIFF, ANEU, PRO, CMP, GFR #### [address] [address] GFR Non- >60 Normal [facility] ([place] Comment on above: Result Comment: GFR Population [...] BC, ADIFF, ANEU, PRO, CMP, GFR #### [address] [address] .NEUABSon 04-14-2019 Neutrophils (Bld) [#/Vol] 3.30 10 3/mcL Normal 2.25-8.10 [facility] ([place]) Comment on above: Performed By: #### C BC, ADIFF, ANEU, PRO, CMP, GFR #### [place] [address] A1Con 04-14-2019 HbA1c (Bld) [Mass fraction] 6.1 % High 4.0-6.0 [facility] ([place] Comment on above: Performed By: #### C BC, ADIFF, ANEU, PRO, CMP, GFR #### [place] [address] BMPon 04-14-2019 Calcium [Mass/Vol] 7.8 mg/dL Low 8.4-10.1 [facility] ([place]) Comment on above: Performed By: #### C BC, ADIFF, ANEU, PRO, CMP, GFR #### [address] [address] Chloride [Moles/Vol] 107 mmol/L Normal 98-110 [facility] [place] Comment on above: Performed By: #### C BC, ADIFF, ANEU, PRO, CMP, GFR #### [address] [address] CO2 [Moles/Vol] 30 mmol/L Normal 22-32 [facility] ([place]) Comment on above: Performed By: #### C BC, ADIFF, ANEU, PRO, CMP, GFR #### [facility] [address] [place], [place] [address] Creatinine [Mass/Vol] 0.66 mg/dL Normal 0.50-1.20 [facility] ([place] Comment on above: Performed By: #### C BC, ADIFF, ANEU, PRO, CMP, GFR #### [place] [phone] Electrolyte Balance 5.0 mEq/L Normal 4.0-15.0 [facility] ([place]) Comment on above: Performed By: #### C BC, ADIFF, ANEU, PRO, CMP, GFR #### [place] [phone] Glucose [Mass/Vol] 102 mg/dL Normal 82-115 [facility] ([place]) Comment on above: Performed By: #### C BC, ADIFF, ANEU, PRO, CMP, GFR #### [place] [address] Potassium [Moles/Vol] 3.9 mmol/L Normal 3.5-5.0 [facility] ([place]) Comment on above: Performed By: #### C BC, ADIFF, ANEU, PRO, CMP, GFR #### [place] [address] Sodium [Moles/Vol] 142 mmol/L Normal 136-145 [facility] ([place]) Comment on above: Performed By: #### C BC, ADIFF, ANEU, PRO, CMP, GFR #### [place] [address] Urea nitrogen [Mass/Vol] 13.0 mg/dL Normal 8.0-22.0 [facility] ([place]) Comment on above: Performed By: #### C BC, ADIFF, ANEU, PRO, CMP, GFR #### [place] [phone] Urea nitrogen/Creatinine [Mass ratio] 19.7 ratio Normal 10.0-22.0 [facility] ([place]) Comment on above: Performed By: #### C BC, ADIFF, ANEU, PRO, CMP, GFR #### [place] [phone] CBCon 04-14-2019 Erythrocyte distribution width (RBC) [Ratio] 13.1 % Normal 11.5-15.5 [facility] ([place] Comment on above: Performed By: #### C BC, ADIFF, ANEU, PRO, CMP, GFR #### [place] [phone] Hematocrit (Bld) [Volume fraction] 33.9 % Low 34.0-46.0 [facility] ([place] Comment on above: Performed By: #### C BC, ADIFF, ANEU, PRO, CMP, GFR #### [place] [phone] Hemoglobin (Bld) [Mass/Vol] 11.6 G/dL Low 12.0-16.0 [facility] ([place] Comment on above: Performed By: #### C BC, ADIFF, ANEU, PRO, CMP, GFR #### [place] [phone] MCH (RBC) [Entitic mass] 31.9 pg Normal 27.0-33.0 [facility] ([place]) Comment on above: Performed By: #### C BC, ADIFF, ANEU, PRO, CMP, GFR #### [place] [phone] MCHC (RBC) [Mass/Vol] 34.2 G/dL Normal 32.0-36.0 [facility] ([place] Comment on above: Performed By: #### C BC, ADIFF, ANEU, PRO, CMP, GFR #### [place] [phone] MCV (RBC) [Entitic vol] 93.4 fL Normal 80.0-99.0 [facility] ([place]) Comment on above: Performed By: #### C BC, ADIFF, ANEU, PRO, CMP, GFR #### [place] [phone] Platelet mean volume (Bld) [Entitic vol] 9.2 fL Normal 6.6-10.5 [facility] ([place] Comment on above: Performed By: #### C BC, ADIFF, ANEU, PRO, CMP, GFR #### [address] [address] Platelets (Bld) [#/Vol] 197 10 3/mcL Normal 150-450 [facility] ([place] Comment on above: Performed By: #### C BC, ADIFF, ANEU, PRO, CMP, GFR #### [address] [address] RBC (Bld) [#/Vol] 3.63 10 6/mcL Low 4.10-5.30 [facility] [place] Comment on above: Performed By: #### C BC, ADIFF, ANEU, PRO, CMP, GFR #### [address] [address] WBC (Bld) [#/Vol] 6.40 10 3/mcL Normal 4.50-10.80 [facility] [place] Comment on above: Performed By: #### C BC, ADIFF, ANEU, PRO, CMP, GFR #### [place] [phone] MGon 04-14-2019 Magnesium [Mass/Vol] 2.1 mg/dL Normal 1.6-2.4 [facility] [place] Comment on above: Performed By: #### C BC, ADIFF, ANEU, PRO, CMP, GFR #### [address] [address] PROon 04-14-2019 INR Coag (PPP) [Relative time] 1.8 {INR} Normal [facility] ([place]) Comment on above: Order Comment: order ed secondary to warfarin order Result Comment: [employer] (CHEST, 1992, 102:312S-25S) recommended therapeutic range for oral anticoagulant therapy is: LOW RISK: Prophylaxis of venous thrombosis INR: 2.0-3.0 Treatment of pulmonary embolism 2.0-3.0 Prevention of systemic embolism 2.0-3.0 HIGH RISK: Mechanical prosthetic valves 2.5-3.5 Performed By: #### C BC, ADIFF, ANEU, PRO, CMP, GFR #### [address] [address] PT Coag (PPP) [Time] 21.7 s High 9.0-14.6 [facility] [place] Comment on above: Order Comment: order ed secondary to warfarin order Result Comment: Effe ctive 12/11/07, Protime results may be affected by some antibiotics (i.e. Ciprofloxacin, Azithromycin, Bactrim) which may potentiate the action of oral anticoagulants, with further increases in Protime/INR. Performed By: #### C BC, ADIFF, ANEU, PRO, CMP, GFR #### [address] [address] .Auto Diffon 04-13-2019 Ammonia (P) [Mass/Vol] 0.60 10 3/mcL Normal 0.09-1.40 [facility] ([place]) Comment on above: Performed By: #### C BC, ADIFF, ANEU, BMP, GFR, LIPID, TROPI #### [address] [address] Basophils (Bld) [#/Vol] 0.00 10 3/mcL Normal 0.00-0.27 [facility] ([place] Comment on above: Performed By: #### C BC, ADIFF, ANEU, BMP, GFR, LIPID, TROPI #### [address] [address] Basophils/100 WBC (Bld) 0.6 % Normal 0.0-2.5 [facility] [place] Comment on above: Performed By: #### C BC, ADIFF, ANEU, BMP, GFR, LIPID, TROPI #### [address] [address] Eosinophils (Bld) [#/Vol] 0.30 10 3/mcL Normal 0.00-0.65 [facility] ([place] Comment on above: Performed By: #### C BC, ADIFF, ANEU, BMP, GFR, LIPID, TROPI #### [address] [address] Eosinophils/100 WBC (Bld) 4.5 % Normal 0.0-6.0 [facility] ([place] Comment on above: Performed By: #### C BC, ADIFF, ANEU, BMP, GFR, LIPID, TROPI #### [address] [address] Lymphocytes (Bld) [#/Vol] 2.60 10 3/mcL Normal 0.90-4.32 [facility] ([place]) Comment on above: Performed By: #### C BC, ADIFF, ANEU, BMP, GFR, LIPID, TROPI #### [address] [address] Lymphocytes/100 WBC (Bld) 34.8 % Normal 20.0-40.0 [facility] ([place]) Comment on above: Performed By: #### C BC, ADIFF, ANEU, BMP, GFR, LIPID, TROPI #### [address] [address] Monocytes/100 WBC (Bld) 7.5 % Normal 2.0-13.0 [facility] [place] Comment on above: Performed By: #### C BC, ADIFF, ANEU, BMP, GFR, LIPID, TROPI #### [address] [address] Neutrophils/100 WBC (Bld) 52.6 % Normal 50.0-75.0 [facility] ([place] Comment on above: Performed By: #### C BC, ADIFF, ANEU, BMP, GFR, LIPID, TROPI #### [address] [address] .GFRon 04-13-2019 GFR Non- >60 Normal [facility] ([place] Comment on above: Result Comment: GFR Population [...] BC, ADIFF, ANEU, PRO, CMP, GFR #### [address] [address] GFR >60 Normal [facility] [place] Comment on above: Result Comment: GFR Population [...] BC, ADIFF, ANEU, PRO, CMP, GFR #### [address] [address] .NEUABSon 04-13-2019 Neutrophils (Bld) [#/Vol] 4.00 10 3/mcL Normal 2.25-8.10 [facility] ([place] Comment on above: Performed By: #### C BC, ADIFF, ANEU, PRO, CMP, GFR #### [address] [address] BMPon 04-13-2019 Calcium [Mass/Vol] 7.8 mg/dL Low 8.4-10.1 [facility] ([place]) Comment on above: Performed By: #### C BC, ADIFF, ANEU, PRO, CMP, GFR #### [address] [address] Chloride [Moles/Vol] 106 mmol/L Normal 98-110 [facility] [place] Comment on above: Performed By: #### C BC, ADIFF, ANEU, PRO, CMP, GFR #### [address] [address] CO2 [Moles/Vol] 31 mmol/L Normal 22-32 [facility] ([place] Comment on above: Performed By: #### C BC, ADIFF, ANEU, PRO, CMP, GFR #### [address] [address] Creatinine [Mass/Vol] 0.74 mg/dL Normal 0.50-1.20 [facility] ([place]) Comment on above: Performed By: #### C BC, ADIFF, ANEU, PRO, CMP, GFR #### [address] [address] Electrolyte Balance 6.0 mEq/L Normal 4.0-15.0 [facility] ([place]) Comment on above: Performed By: #### C BC, ADIFF, ANEU, PRO, CMP, GFR #### [address] [address] Glucose [Mass/Vol] 107 mg/dL Normal 82-115 [facility] ([place]) Comment on above: Performed By: #### C BC, ADIFF, ANEU, PRO, CMP, GFR #### [place] [id number] Potassium [Moles/Vol] 4.0 mmol/L Normal 3.5-5.0 [facility] ([place]) Comment on above: Performed By: #### C BC, ADIFF, ANEU, PRO, CMP, GFR #### [address] [address] Sodium [Moles/Vol] 143 mmol/L Normal 136-145 [facility] ([place]) Comment on above: Performed By: #### C BC, ADIFF, ANEU, PRO, CMP, GFR #### [address] [address] Urea nitrogen [Mass/Vol] 16.0 mg/dL Normal 8.0-22.0 [facility] ([place]) Comment on above: Performed By: #### C BC, ADIFF, ANEU, PRO, CMP, GFR #### [address] [address] Urea nitrogen/Creatinine [Mass ratio] 21.6 ratio Normal 10.0-22.0 [facility] ([place]) Comment on above: Performed By: #### C BC, ADIFF, ANEU, PRO, CMP, GFR #### [address] [address] CBCon 04-13-2019 WBC (Bld) [#/Vol] 7.50 10 3/mcL Normal 4.50-10.80 [facility] [place]) Comment on [place]: Result Comment: No n ormals available: specimen drawn from IV arm. Performed By: #### C BC, ADIFF, ANEU, BMP, GFR, LIPID, TROPI #### [place] [id number] Erythrocyte distribution width (RBC) [Ratio] 13.5 % Normal 11.5-15.5 [facility] ([place]) Comment on above: Performed By: #### C BC, ADIFF, ANEU, BMP, GFR, LIPID, TROPI #### [place] [address] Hematocrit (Bld) [Volume fraction] 32.9 % Low 34.0-46.0 [facility] ([place] Comment on above: Performed By: #### C BC, ADIFF, ANEU, BMP, GFR, LIPID, TROPI #### [place] [phone] Hemoglobin (Bld) [Mass/Vol] 10.9 G/dL Low 12.0-16.0 [facility] ([place]) Comment on above: Performed By: #### C BC, ADIFF, ANEU, BMP, GFR, LIPID, TROPI #### [place] [id number] MCH (RBC) [Entitic mass] 31.2 pg Normal 27.0-33.0 [facility] ([place]) Comment on above: Performed By: #### C BC, ADIFF, ANEU, BMP, GFR, LIPID, TROPI #### [place] [id number] MCHC (RBC) [Mass/Vol] 33.2 G/dL Normal 32.0-36.0 [facility] ([place] Comment on above: Performed By: #### C BC, ADIFF, ANEU, BMP, GFR, LIPID, TROPI #### [facility] [address] [place], [place] [address] MCV (RBC) [Entitic vol] 94.0 fL Normal 80.0-99.0 [facility] [place]) Comment on above: Performed By: #### C BC, ADIFF, ANEU, BMP, GFR, LIPID, TROPI #### [facility] [address] [place] [address] Platelet mean volume (Bld) [Entitic vol] 8.4 fL Normal 6.6-10.5 [facility] ([place]) Comment on above: Performed By: #### C BC, ADIFF, ANEU, BMP, GFR, LIPID, TROPI #### [facility] [address] [place] [address] Platelets (Bld) [#/Vol] 188 10 3/mcL Normal 150-450 [facility] ([place]) Comment on above: Performed By: #### C BC, ADIFF, ANEU, BMP, GFR, LIPID, TROPI #### [place] [address] [address] [place], [place] [id number] RBC (Bld) [#/Vol] 3.49 10 6/mcL Low 4.10-5.30 [facility] [place] Comment on above: Performed By: #### C BC, ADIFF, ANEU, BMP, GFR, LIPID, TROPI #### [facility] [address] [place] [address] [address] ANGIOGRAPHY HEAD W/ CONTR Tariq 04-13-2019 [...] Date: 04/13/2019 8:46:53 PM Ordering Provider:Naomie Richards [facility] ([place]) CT ANGIOGRAPHY NECK W/CONTRA Xavin 04-13-2019 CT [...] Date: 04/13/2019 8:25:57 PM Ordering Provider:Naomie Solano [facility] ([place]) LIPIDon 04-13-2019 Cholesterol in HDL [Mass/Vol] 30 mg/dL Low 40-59 [facility] ([place]) Comment on above: Result Comment: HDL Reference Interval: Less than 40 Low - high risk 60 or above Optimal/lowers risk Performed By: #### C BC, ADIFF, ANEU, PRO, CMP, GFR #### [address] [address] Cholesterol in LDL [Mass/Vol] 78 mg/dL Normal 0-129 [facility] ([place]) Comment on above: Result Comment: LDL is a calculated result and requires a 12-hr fast. LDL Reference Interval: Less than 100 Optimal 100-129 Near or above optimal 130-159 Borderline high risk 160-189 High risk 190 and above Very high risk Performed By: #### C BC, ADIFF, ANEU, PRO, CMP, GFR #### [address] [address] Cholesterol [Mass/Vol] 135 mg/dL Normal 50-199 [facility] ([place]) Comment on above: Result Comment: Chol esterol Reference Interval: Less than 200 Desirable 200-239 Borderline high risk 240 and above High risk Performed By: #### C BC, ADIFF, ANEU, PRO, CMP, GFR #### [address] [address] Triglyceride [Mass/Vol] 134 mg/dL Normal 3-149 [facility] ([place]) Comment on above: Result Comment: Trig lyceride Reference Interval: Less than 150 Normal 150-199 Borderline high risk 200-499 High risk 500 or higher Very high risk Performed By: #### C BC, ADIFF, ANEU, PRO, CMP, GFR #### [place] [address] [place] [address] MRI BRAIN W/O CONTRASTon MRI BRAIN W/O [...] 11:39:49 AM Ordering Provider:Naomie Solano [facility] ([place]) PROon 04-13-2019 INR Coag (PPP) [Relative time] 1.8 {INR} [facility] ([place]) Comment on above: Order Comment: order ed secondary to warfarin order Result Comment: [employer] (CHEST, 1992, 102:312S-25S) recommended therapeutic range for oral anticoagulant therapy is: LOW RISK: Prophylaxis of venous thrombosis INR: 2.0-3.0 Treatment of pulmonary embolism 2.0-3.0 Prevention of systemic embolism 2.0-3.0 HIGH RISK: Mechanical prosthetic valves 2.5-3.5 Performed By: #### C BC, ADIFF, ANEU, PRO, CMP, GFR #### [place] [id number] [place] [address] PT Coag (PPP) [Time] 21.0 s High 9.0-14.6 [facility] [place] Comment on above: Order Comment: order ed secondary to warfarin order Result Comment: Effe ctive 12/11/07, Protime results may be affected by some antibiotics (i.e. Ciprofloxacin, Azithromycin, Bactrim) which may potentiate the action of oral anticoagulants, with further increases in Protime/INR. Performed By: #### C BC, ADIFF, ANEU, PRO, CMP, GFR #### [address] [address] TROPIon 04-13-2019 Troponin I.cardiac [Mass/Vol] ng/mL Normal 0.000-0.040 [facility] ([place]) Comment on above: Result Comment: Trop onin I reference ranges (02/03/14): 0.00-0.040 ng/mL Negative and non-diagnostic. >0.040 ng/mL Consistent with cardiac damage, increased clinical risk and possibility of myocardial infarction. Serial measurements, a rise & fall in test results, clinical history, appropriate symptoms and/or ECG changes may help assess possibility of MA. *Other non-acute coronary syndrome conditions such as CHF, myocarditis, pulmonary emboli, sepsis and cardiac surgery could result in myocardial damage and increased troponin levels. Performed By: #### C BC, ADIFF, ANEU, PRO, CMP, GFR #### [address] [address] Troponin I.cardiac [Mass/Vol] ng/mL Normal 0.000-0.040 [facility] ([place]) Comment on above: Result Comment: Trop onin I reference ranges (02/03/14): 0.00-0.040 ng/mL Negative and non-diagnostic. >0.040 ng/mL Consistent with cardiac damage, increased clinical risk and possibility of myocardial infarction. Serial measurements, a rise & fall in test results, clinical history, appropriate symptoms and/or ECG changes may help assess possibility of MA. *Other non-acute coronary syndrome conditions such as CHF, myocarditis, pulmonary emboli, sepsis and cardiac surgery could result in myocardial damage and increased troponin levels. Performed By: #### T ROPI #### [address] [address] Troponin I.cardiac [Mass/Vol] ng/mL Normal 0.000-0.040 [facility] ([place]) Comment on above: Result Comment: Trop onin I reference ranges (02/03/14): 0.00-0.040 ng/mL Negative and non-diagnostic. >0.040 ng/mL Consistent with cardiac damage, increased clinical risk and possibility of myocardial infarction. Serial measurements, a rise & fall in test results, clinical history, appropriate symptoms and/or ECG changes may help assess possibility of MA. *Other non-acute coronary syndrome conditions such as CHF, myocarditis, pulmonary emboli, sepsis and cardiac surgery could result in myocardial damage and increased troponin levels. Performed By: #### T ROPI #### [address] [address] .Auto Diffon 04-12-2019 Ammonia (P) [Mass/Vol] 0.60 10 3/mcL Normal 0.09-1.40 [facility] ([place]) Comment on above: Performed By: #### C BC, ADIFF, ANEU, PRO, CMP, GFR #### [address] [address] Basophils (Bld) [#/Vol] 0.10 10 3/mcL Normal 0.00-0.27 [facility] ([place]) Comment on above: Performed By: #### C BC, ADIFF, ANEU, PRO, CMP, GFR #### [address] [address] Basophils/100 WBC (Bld) 0.6 % Normal 0.0-2.5 [facility] [place] Comment on above: Performed By: #### C BC, ADIFF, ANEU, PRO, CMP, GFR #### [address] [address] Eosinophils (Bld) [#/Vol] 0.40 10 3/mcL Normal 0.00-0.65 [facility] ([place]) Comment on above: Performed By: #### C BC, ADIFF, ANEU, PRO, CMP, GFR #### [address] [address] Eosinophils/100 WBC (Bld) 4.4 % Normal 0.0-6.0 [facility] ([place]) Comment on above: Performed By: #### C BC, ADIFF, ANEU, PRO, CMP, GFR #### [address] [address] Lymphocytes (Bld) [#/Vol] 3.20 10 3/mcL Normal 0.90-4.32 [facility] ([place]) Comment on above: Performed By: #### C BC, ADIFF, ANEU, PRO, CMP, GFR #### [address] [address] Lymphocytes/100 WBC (Bld) 37.2 % Normal 20.0-40.0 [facility] ([place]) Comment on above: Performed By: #### C BC, ADIFF, ANEU, PRO, CMP, GFR #### [address] [address] Monocytes/100 WBC (Bld) 6.7 % Normal 2.0-13.0 [facility] [place] Comment on above: Performed By: #### C BC, ADIFF, ANEU, PRO, CMP, GFR #### [address] [address] Neutrophils/100 WBC (Bld) 51.1 % Normal 50.0-75.0 [facility] ([place]) Comment on above: Performed By: #### C BC, ADIFF, ANEU, PRO, CMP, GFR #### [address] [address] .GFRon 04-12-2019 GFR >60 Normal [facility] [place] Comment on above: Result Comment: GFR Population [...] BC, ADIFF, ANEU, PRO, CMP, GFR #### [place] [address] GFR Non- >60 Normal [facility] ([place]) Comment on above: Result Comment: GFR Population [...] BC, ADIFF, ANEU, PRO, CMP, GFR #### [place] [address] .NEUABSon 04-12-2019 Neutrophils (Bld) [#/Vol] 4.40 10 3/mcL Normal 2.25-8.10 [facility] ([place]) Comment on above: Performed By: #### C BC, ADIFF, ANEU, PRO, CMP, GFR #### [address] [address] CBCon 04-12-2019 Erythrocyte distribution width (RBC) [Ratio] 13.5 % Normal 11.5-15.5 [facility] ([place]) Comment on above: Performed By: #### C BC, ADIFF, ANEU, PRO, CMP, GFR #### [place] [address] Hematocrit (Bld) [Volume fraction] 35.5 % Normal 34.0-46.0 [facility] ([place]) Comment on above: Performed By: #### C BC, ADIFF, ANEU, PRO, CMP, GFR #### [facility] [address] [place], [place] [address] Hemoglobin (Bld) [Mass/Vol] 12.0 G/dL Normal 12.0-16.0 [facility] ([place]) Comment on above: Performed By: #### C BC, ADIFF, ANEU, PRO, CMP, GFR #### [address] [address] MCH (RBC) [Entitic mass] 32.0 pg Normal 27.0-33.0 [facility] ([place]) Comment on above: Performed By: #### C BC, ADIFF, ANEU, PRO, CMP, GFR #### [address] [address] MCHC (RBC) [Mass/Vol] 33.8 G/dL Normal 32.0-36.0 [facility] ([place]) Comment on above: Performed By: #### C BC, ADIFF, ANEU, PRO, CMP, GFR #### [address] [address] MCV (RBC) [Entitic vol] 94.7 fL Normal 80.0-99.0 [facility] ([place]) Comment on above: Performed By: #### C BC, ADIFF, ANEU, PRO, CMP, GFR #### [address] [address] Platelet mean volume (Bld) [Entitic vol] 8.7 fL Normal 6.6-10.5 [facility] ([place]) Comment on above: Performed By: #### C BC, ADIFF, ANEU, PRO, CMP, GFR #### [address] [address] Platelets (Bld) [#/Vol] 209 10 3/mcL Normal 150-450 [facility] ([place]) Comment on above: Performed By: #### C BC, ADIFF, ANEU, PRO, CMP, GFR #### [address] [address] RBC (Bld) [#/Vol] 3.75 10 6/mcL Low 4.10-5.30 [facility] [place] Comment on above: Performed By: #### C BC, ADIFF, ANEU, PRO, CMP, GFR #### [place] [id number] WBC (Bld) [#/Vol] 8.60 10 3/mcL Normal 4.50-10.80 [facility] [place] Comment on above: Performed By: #### C BC, ADIFF, ANEU, PRO, CMP, GFR #### [address] [address] CMPon 04-12-2019 Albumin/Globulin [Mass ratio] 1.0 {ratio} Normal 0.9-1.6 [facility] ([place]) Comment on above: Performed By: #### C BC, ADIFF, ANEU, PRO, CMP, GFR #### [place] [phone] ALP [Catalytic activity/Vol] 72 U/L Normal 38-126 [facility] ([place]) Comment on above: Performed By: #### C BC, ADIFF, ANEU, PRO, CMP, GFR #### [place] [id number] Bili Total 0.3 mg/dL Normal 0.2-1.2 [facility] ([place]) Comment on above: Performed By: #### C BC, ADIFF, ANEU, PRO, CMP, GFR #### [place] [phone] Creatinine [Mass/Vol] 0.66 mg/dL Normal 0.50-1.20 [facility] ([place]) Comment on above: Performed By: #### C BC, ADIFF, ANEU, PRO, CMP, GFR #### [place] [phone] Globulin (S) [Mass/Vol] 3.0 G/dL Normal 1.5-3.8 [facility] ([place]) Comment on above: Performed By: #### C BC, ADIFF, ANEU, PRO, CMP, GFR #### [place] [phone] Protein [Mass/Vol] 6.0 G/dL Normal 6.0-8.5 [facility] ([place]) Comment on above: Performed By: #### C BC, ADIFF, ANEU, PRO, CMP, GFR #### [address] [address] Urea nitrogen/Creatinine [Mass ratio] 27.3 ratio High 10.0-22.0 [facility] ([place]) Comment on above: Performed By: #### C BC, ADIFF, ANEU, PRO, CMP, GFR #### [address] [address] Albumin [Mass/Vol] 3.0 G/dL Low 3.2-4.8 [facility] ([place]) Comment on above: Performed By: #### C BC, ADIFF, ANEU, PRO, CMP, GFR #### [address] [address] ALT [Catalytic activity/Vol] 24 U/L Normal 10-49 [facility] ([place]) Comment on above: Performed By: #### C BC, ADIFF, ANEU, PRO, CMP, GFR #### [address] [address] AST [Catalytic activity/Vol] 20 U/L Normal 8-34 [facility] ([place]) Comment on above: Performed By: #### C BC, ADIFF, ANEU, PRO, CMP, GFR #### [place] [id number] Calcium [Mass/Vol] 8.2 mg/dL Low 8.4-10.1 [facility] ([place]) Comment on above: Performed By: #### C BC, ADIFF, ANEU, PRO, CMP, GFR #### [address] [address] Chloride [Moles/Vol] 105 mmol/L Normal 98-110 [facility] [place] Comment on above: Performed By: #### C BC, ADIFF, ANEU, PRO, CMP, GFR #### [address] [address] CO2 [Moles/Vol] 28 mmol/L Normal 22-32 [facility] ([place]) Comment on above: Performed By: #### C BC, ADIFF, ANEU, PRO, CMP, GFR #### [address] [address] Electrolyte Balance 8.0 mEq/L Normal 4.0-15.0 [facility] ([place]) Comment on above: Performed By: #### C BC, ADIFF, ANEU, PRO, CMP, GFR #### [address] [address] Glucose [Mass/Vol] 108 mg/dL Normal 82-115 [facility] ([place]) Comment on above: Performed By: #### C BC, ADIFF, ANEU, PRO, CMP, GFR #### [place] [id number] Potassium [Moles/Vol] 3.7 mmol/L Normal 3.5-5.0 [facility] ([place]) Comment on above: Performed By: #### C BC, ADIFF, ANEU, PRO, CMP, GFR #### [place] [phone] Sodium [Moles/Vol] 141 mmol/L Normal 136-145 [facility] ([place]) Comment on above: Performed By: #### C BC, ADIFF, ANEU, PRO, CMP, GFR #### [place] [phone] Urea nitrogen [Mass/Vol] 18.0 mg/dL Normal 8.0-22.0 [facility] ([place]) Comment on above: Performed By: #### C BC, ADIFF, ANEU, PRO, CMP, GFR #### [address] [address] PROon 04-12-2019 INR Coag (PPP) [Relative time] 1.8 {INR} Normal [facility] ([place]) Comment on above: Result Comment: [employer] (CHEST, 1992, 102:312S-25S) recommended therapeutic range for oral anticoagulant therapy is: LOW RISK: Prophylaxis of venous thrombosis INR: 2.0-3.0 Treatment of pulmonary embolism 2.0-3.0 Prevention of systemic embolism 2.0-3.0 HIGH RISK: Mechanical prosthetic valves 2.5-3.5 Performed By: #### C BC, ADIFF, ANEU, PRO, CMP, GFR #### [address] [address] PT Coag (PPP) [Time] 20.9 s High 9.0-14.6 [facility] ([place]) Comment on above: Result Comment: Effe ctive 12/11/07, Protime results may be affected by some antibiotics (i.e. Ciprofloxacin, Azithromycin, Bactrim) which may potentiate the action of oral anticoagulants, with further increases in Protime/INR. Performed By: #### C BC, ADIFF, ANEU, PRO, CMP, GFR #### [facility] [address] [place] [address] CNCOon 09-08-2017 CNCO Letter Text [facility] Cardiology [id number] . Exchange [facility] [id number]: [phone] Wrnfplr E. Shafer, MDApril 2017Colette Richardson3383 [facility] [id number] Colette Richardson,We missed seeing you for your scheduled appointment with Dr. Kathleen on09/05/17.Our goal is to offer the best possible care to our patients, so we areconcerned when you are unable to keep a scheduled appointment.Please call us at [phone] so that we can reschedule your appointment fora day and time that will work for you.If you find it difficult to keep your appointment, please notify our officeat least 24 hours in advance so that we may reschedule your appointment.We are glad that you have chosen [facility] for yourcardiovascular needs and hope to continue serving you in the future.Sincerely,Sarath Kathleen MD(Signed electronically to expedite mailing) Normal [facility] Culture, urine Bacteria identified Cx Nom (U) Culture exhibits no growth. [facility] Work Phone: Bacteria identified Cx Nom (U) Staphylococcus epidermidis [facility] Work Phone: Influenza virus A and B and SARS-CoV-2 (COVID-19) Ag panel - Upper respiratory specim SARS-CoV-2 (COVID-19) RNA REMINGTON+probe Ql (Resp) [facility] Work Phone: Laboratory - Microbiology an d Antimicrobial susceptibility Bacteria identified Cx Nom (Bld) No growth in 5 days. [facility] Work Phone: No Panel Information SARS-CoV-2 & FLU Antigen (Rapid) [facility] Work Phone: Vital Signs Date Time Vital Sign Value Performing Clinician Faci lity 12-17-2024 10:56-0400 Body mass index (BMI) [Ratio] 27.9 kg/m2 Diana iSmon MD Work Phone: [facility] 12-17-2024 10:56-0400 Body weight 64.8 kg Diana Simon MD Work Phone: [facility] 12-17-2024 10:56-0400 SaO2% (BldA) [Mass fraction] 96 % Diana Simon MD Work Phone: [facility] 10-09-2024 20:54-0400 Body temperature 98 [degF] Dr. Melo Shrestha MD [facility] 10-09-2024 20:54-0400 Diastolic blood pressure 80 mm[Hg] Dr. Melo Shrestha MD [facility] 10-09-2024 20:54-0400 Heart rate 68 /min Dr. Melo Shrestha MD [facility] 10-09-2024 20:54-0400 Respiratory rate 18 /min Dr. Melo Shrestha MD [facility] 10-09-2024 20:54-0400 SaO2% (BldA) [Mass fraction] 96 % Dr. Melo Shrestha MD [facility] 10-09-2024 20:54-0400 Systolic blood pressure 188 mm[Hg] Dr. Melo Shrestah MD [facility] 10-09-2024 19:02-0400 Body height 154.[address] Melo Shrestha MD [facility] 10-09-2024 19:02-0400 Body mass index (BMI) [Ratio] 27.6 kg/m2 Dr. Melo Shrestha MD [facility] 10-09-2024 19:02-0400 Body weight 66.[address] Melo Shrestha MD [facility] 02-02-2023 18:43-0400 Diastolic blood pressure 92 mm[Hg] Dr. Hortensia Unger Work Phone: [facility] 02-02-2023 18:43-0400 Heart rate 66 /min Dr. Hortensia Unger Work Phone: [facility] 02-02-2023 18:43-0400 Systolic blood pressure 186 mm[Hg] Dr. Hortensia Unger Work Phone: [facility] 02-02-2023 15:12-0400 Body height 154.[address] Hortensia Unger Work Phone: [facility] 02-02-2023 15:12-0400 Body temperature 97.9 [degF] Dr. Hortensia Unger Work Phone: [facility] 02-02-2023 15:12-0400 Respiratory rate 18 /min Dr. Hortensia Unger Work Phone: [facility] 02-02-2023 15:12-0400 SaO2% (BldA) [Mass fraction] 97 % Dr. Hortensia Unger Work Phone: [facility] 01-09-2023 10:02-0400 Body mass index (BMI) [Ratio] 30.1 kg/m2 Dr. Hortensia Unger Work Phone: [facility] 01-09-2023 10:02-0400 Body temperature 98 [degF] Dr. Hortensia Unger Work Phone: [facility] 01-09-2023 10:02-0400 Body weight 72.[address] Hortensia Unger Work Phone: [facility] 01-09-2023 10:02-0400 Diastolic blood pressure 60 mm[Hg] Dr. Hortensia Unger Work Phone: [facility] 01-09-2023 10:02-0400 Heart rate 63 /min Dr. Hortensia Unger Work Phone: [facility] 01-09-2023 10:02-0400 Respiratory rate 17 /min Dr. Hortensia Unger Work Phone: [facility] 01-09-2023 10:02-0400 SaO2% (BldA) [Mass fraction] 95 % Dr. Hortensia Unger Work Phone: [facility] 01-09-2023 10:02-0400 Systolic blood pressure 140 mm[Hg] Dr. Hortensia Unger Work Phone: [facility] 06-17-2022 14:56-0500 Body temperature 98.2 [degF] Dr. Hortensia Unger Work Phone: [facility] 06-17-2022 14:56-0500 Diastolic blood pressure 65 mm[Hg] Dr. Hortensia Unger Work Phone: [facility] 06-17-2022 14:56-0500 Heart rate 62 /min Dr. Hortensia Unger Work Phone: [facility] 06-17-2022 14:56-0500 Respiratory rate 18 /min Dr. Hortensia Unger Work Phone: [facility] 06-17-2022 14:56-0500 SaO2% (BldA) [Mass fraction] 95 % Dr. Hortensia Unger Work Phone: [facility] 06-17-2022 14:56-0500 Systolic blood pressure 116 mm[Hg] Dr. Hortensia Unger Work Phone: [facility] 06-17-2022 11:51-0500 Body mass index (BMI) [Ratio] 32.6 kg/m2 Dr. Hortensia Unger Work Phone: [facility] 06-16-2022 18:14-0500 Diastolic blood pressure 67 mm[Hg] [facility] 06-16-2022 18:14-0500 Systolic blood pressure 156 mm[Hg] [facility] 06-16-2022 18:07-0500 Body height 154.[address] Hortensia Unger Work Phone: [facility] 06-16-2022 18:07-0500 Body weight 78.[address] Hortensia Unger Work Phone: [facility] 06-16-2022 17:33-0500 Body temperature 97.6 [degF] [facility] 06-16-2022 17:33-0500 Heart rate 67 /min [facility] 06-16-2022 17:33-0500 Respiratory rate 20 /min [facility] 06-16-2022 17:33-0500 SaO2% (BldA) [Mass fraction] 95 % [facility] 06-16-2022 12:16-0500 Body height 154.99 cm [facility] 06-16-2022 12:16-0500 Body mass index (BMI) [Ratio] 32.6 kg/m2 [facility] 06-16-2022 12:16-0500 Body weight 78.4 kg [facility] 03-07-2022 18:00-0400 Body temperature 97.8 [degF] [facility] 03-07-2022 18:00-0400 Diastolic blood pressure 89 mm[Hg] [facility] 03-07-2022 18:00-0400 Heart rate 83 /min [facility] 03-07-2022 18:00-0400 Respiratory rate 18 /min [facility] 03-07-2022 18:00-0400 SaO2% (BldA) [Mass fraction] 94 % [facility] 03-07-2022 18:00-0400 Systolic blood pressure 126 mm[Hg] [facility] 03-07-2022 14:47-0400 Body height 154.94 cm [facility] Work Phone: 03-07-2022 14:47-0400 Body mass index (BMI) [Ratio] 31.4 kg/m2 [facility] 03-07-2022 14:47-0400 Body weight 75.29 kg [facility] 03-07-2022 14:47-0400 Inhaled oxygen flow rate 2 L/min [facility] 11-12-2021 13:19-0400 Body temperature 98.5 [degF] Dr. Joao Simon Work Phone: [facility] Work Phone: 11-12-2021 13:19-0400 Diastolic blood pressure 83 mm[Hg] Dr. Joao Simon Work Phone: [facility] Work Phone: 11-12-2021 13:19-0400 Heart rate 63 /min Dr. Joao Simon Work Phone: [facility] Work Phone: 11-12-2021 13:19-0400 Respiratory rate 16 /min Dr. Joao Simon Work Phone: [facility] Work Phone: 11-12-2021 13:19-0400 SaO2% (BldA) [Mass fraction] 98 % Dr. Joao Simon Work Phone: [facility] Work Phone: 11-12-2021 13:19-0400 Systolic blood pressure 131 mm[Hg] Dr. Joao Simon Work Phone: [facility] Work Phone: 11-10-2021 12:44-0400 Body height 152.[address] Joao Simon Work Phone: [facility] Work Phone: 11-10-2021 12:44-0400 Body weight 75.[address] Joao Simon Work Phone: [facility] Work Phone: 11-10-2021 09:26-0400 Diastolic blood pressure 61 mm[Hg] Dr. Joao Simon Work Phone: [facility] Work Phone: 11-10-2021 09:26-0400 Heart rate 70 /min Dr. Joao Simon Work Phone: [facility] Work Phone: 11-10-2021 09:26-0400 Systolic blood pressure 131 mm[Hg] Dr. Joao Simon Work Phone: [facility] Work Phone: 11-09-2021 14:57-0400 Body weight 75.[address] Joao Simon Work Phone: [facility] Work Phone: 11-09-2021 14:00-0400 Body temperature 97.6 [degF] Dr. Joao Simon Work Phone: [facility] Work Phone: 11-09-2021 14:00-0400 Respiratory rate 16 /min Dr. Joao Simon Work Phone: [facility] Work Phone: 11-09-2021 14:00-0400 SaO2% (BldA) [Mass fraction] 97 % Dr. Joao Simon Work Phone: [facility] Work Phone: 11-05-2021 16:00-0400 Body height 152.[address] Joao Simon Work Phone: [facility] Work Phone: 11-04-2021 18:29-0400 Body mass index (BMI) [Ratio] 33.1 kg/m2 Dr. Joao Simon Work Phone: [facility] Work Phone: 11-04-2021 14:52-0400 Body temperature 98 [degF] Dr. Joao Simon Work Phone: [facility] Work Phone: 11-04-2021 14:52-0400 Diastolic blood pressure 57 mm[Hg] Dr. Joao Simon Work Phone: [facility] Work Phone: 11-04-2021 14:52-0400 Heart rate 72 /min Dr. Joao Simon Work Phone: [facility] Work Phone: 11-04-2021 14:52-0400 Respiratory rate 16 /min Dr. Joao Simon Work Phone: [facility] Work Phone: 11-04-2021 14:52-0400 SaO2% (BldA) [Mass fraction] 97 % Dr. Joao Simon Work Phone: [facility] Work Phone: 11-04-2021 14:52-0400 Systolic blood pressure 138 mm[Hg] Dr. Joao Simon Work Phone: [facility] Work Phone: 11-02-2021 17:39-0400 Body height 152.[address] Joao Simon Work Phone: [facility] Work Phone: 11-02-2021 17:39-0400 Body mass index (BMI) [Ratio] 32.1 kg/m2 Dr. Joao Simon Work Phone: [facility] Work Phone: 11-02-2021 17:39-0400 Body weight 74.[address] Joao Simon Work Phone: [facility] Work Phone: 11-02-2021 17:03-0400 Heart rate 74 /min Dr. Joao Simon Work Phone: [facility] Work Phone: 11-02-2021 15:36-0400 Body temperature 98.7 [degF] Dr. Joao Simon Work Phone: [facility] Work Phone: 11-02-2021 15:36-0400 Diastolic blood pressure 86 mm[Hg] Dr. Joao Simon Work Phone: [facility] Work Phone: 11-02-2021 15:36-0400 Respiratory rate 17 /min Dr. Joao Simon Work Phone: [facility] Work Phone: 11-02-2021 15:36-0400 SaO2% (BldA) [Mass fraction] 95 % Dr. Joao Simon Work Phone: [facility] Work Phone: 11-02-2021 15:36-0400 Systolic blood pressure 169 mm[Hg] Dr. Joao Simon Work Phone: [facility] Work Phone: 11-02-2021 11:48-0400 Body height 152.[address] Joao Simon Work Phone: [facility] Work Phone: 11-02-2021 11:48-0400 Body mass index (BMI) [Ratio] 32.8 kg/m2 Dr. Joao Simon Work Phone: [facility] Work Phone: 11-02-2021 11:48-0400 Body weight 76.[address] Joao Simon Work Phone: [facility] Work Phone: 09-29-2021 14:32-0400 Body mass index (BMI) [Ratio] 32.5 kg/m2 Dr. Joao Simon Work Phone: [facility] Work Phone: 09-29-2021 14:32-0400 Body weight 78.[address] Joao Simon Work Phone: [facility] Work Phone: 09-29-2021 14:32-0400 Diastolic blood pressure 83 mm[Hg] Dr. Joao Simon Work Phone: [facility] Work Phone: 09-29-2021 14:32-0400 Heart rate 66 /min Dr. Joao Simon Work Phone: [facility] Work Phone: 09-29-2021 14:32-0400 Respiratory rate 16 /min Dr. Joao iSmon Work Phone: [facility] Work Phone: 09-29-2021 14:32-0400 SaO2% (BldA) [Mass fraction] 94 % Dr. Joao Simon Work Phone: [facility] Work Phone: 09-29-2021 14:32-0400 Systolic blood pressure 155 mm[Hg] Dr. Joao Simon Work Phone: [facility] Work Phone: 09-29-2021 14:32-0400 Body height 154.[address] Joe Rosario Work Phone: [facility] Work Phone: 09-29-2021 14:32-0400 Body mass index (BMI) [Ratio] 32.5 kg/m2 Dr. Joe Rosario Work Phone: [facility] Work Phone: 09-29-2021 14:32-0400 Body weight 78.[address] Joe Rosario Work Phone: [facility] Work Phone: 09-29-2021 14:32-0400 Diastolic blood pressure 83 mm[Hg] Dr. Joe Rosario Work Phone: [facility] Work Phone: 09-29-2021 14:32-0400 Heart rate 66 /min Dr. Joe Rosario Work Phone: [facility] Work Phone: 09-29-2021 14:32-0400 Respiratory rate 16 /min Dr. Joe Rosario Work Phone: [facility] Work Phone: 09-29-2021 14:32-0400 SaO2% (BldA) [Mass fraction] 94 % Dr. Joe Rosario Work Phone: [facility] Work Phone: 09-29-2021 14:32-0400 Systolic blood pressure 155 mm[Hg] Dr. Joe Rosario Work Phone: [facility] Work Phone: 06-26-2021 05:00-0500 Diastolic blood pressure 64 mm[Hg] Dr. Joe Rosario Work Phone: [facility] Work Phone: 06-26-2021 05:00-0500 Heart rate 69 /min Dr. Joe Rosario Work Phone: [facility] Work Phone: 06-26-2021 05:00-0500 Systolic blood pressure 141 mm[Hg] Dr. Joe Rosario Work Phone: [facility] Work Phone: 06-25-2021 13:03-0500 Body temperature 98.6 [degF] Dr. Joe Rosario Work Phone: [facility] Work Phone: 06-25-2021 13:03-0500 Respiratory rate 18 /min Dr. Joe Rosario Work Phone: [facility] Work Phone: 06-25-2021 13:03-0500 SaO2% (BldA) [Mass fraction] 92 % Dr. Joe Rosario Work Phone: [facility] Work Phone: 06-23-2021 13:54-0500 Body height 154.[address] Joe Rosario Work Phone: [facility] Work Phone: 06-23-2021 13:54-0500 Body weight 77.[address] Joe Rosario Work Phone: [facility] Work Phone: 06-18-2021 14:47-0500 Body mass index (BMI) [Ratio] 33.3 kg/m2 Dr. Joe Rosario Work Phone: [facility] Work Phone: 06-18-2021 11:04-0500 SaO2% (BldA) [Mass fraction] 92 % Dr. Joe Rosario Work Phone: [facility] Work Phone: 06-18-2021 10:40-0500 Body temperature 98.1 [degF] Dr. Joe Rosario Work Phone: [facility] Work Phone: 06-18-2021 10:40-0500 Diastolic blood pressure 67 mm[Hg] Dr. Joe Rosario Work Phone: [facility] Work Phone: 06-18-2021 10:40-0500 Heart rate 58 /min Dr. Joe Rosario Work Phone: [facility] Work Phone: 06-18-2021 10:40-0500 Respiratory rate 18 /min Dr. Joe Rosario Work Phone: [facility] Work Phone: 06-18-2021 10:40-0500 Systolic blood pressure 116 mm[Hg] Dr. Joe Rosario Work Phone: [facility] Work Phone: 06-18-2021 01:05-0500 Body weight 80.[address] Joe Rosario Work Phone: [facility] Work Phone: 06-17-2021 11:59-0500 Body mass index (BMI) [Ratio] 33 kg/m2 Dr. Joe Rosario Work Phone: [facility] Work Phone: Encounters Encounter Date Encounter Type Care Provider Facility Start: 12-17-2024 End: 12-17-2024 Office outpatient new 45 minutes Diana Simon MD Work Phone: Neurology Comment on above: Parkinsonism, unspec ified Parkinsonism type (HCC) (Primary Dx); Multifactorial gait disorder Start: 12-17-2024 End: 12-17-2024 ambulatory [facility] Facility:[facility] Start: 12-13-2024 ambulatory Melo THOMAS Facil ity:[facility] Start: 10-22-2024 End: 10-22-[address] Melo Shrestha MD [facility] Work Phone: Start: 10-22-2024 End: 10-22-[address] Melo Shrestha MD -[facility] Work Phone: Start: 10-22-2024 End: 10-22-2024 ambulatory Melo THOMAS Facility:[facility] Start: 10-09-2024 End: 10-09-2024 Emergency department patient visit Dr. Melo Shrestha MD -Emergency Department Work Phone: Start: 09-09-2024 End: 09-09-[address] Melo Shrestha MD [facility] Work Phone: Start: 09-09-2024 End: 09-09-[address] Melo Shrestha MD -[facility] Work Phone: Start: 09-09-2024 End: 09-09-2024 ambulatory Melo THOMAS Facility:[facility] Start: 08-12-2024 End: 08-12-[address] Melo Shrestha MD [facility] Work Phone: Start: 08-12-2024 End: 08-12-[address] [facility] Work Phone: Start: 08-12-2024 End: 08-12-2024 ambulatory Melo THOMAS Facility:[facility] Start: 07-29-2024 End: 07-29-[address] Melo Shrestha MD [facility] Work Phone: Start: 07-29-2024 End: 07-29-[address] Melo [facility] Work Phone: Start: 07-29-[address] Melo delaney MD -[facility] Work Phone: Start: 07-29-2024 End: 07-29-2024 ambulatory Melo THOMAS Facility:[facility] Start: 07-25-2024 End: 07-25-[address] Melo Shrestha MD [facility] Work Phone: Start: 07-25-2024 End: 07-25-[address] [facility] Work Phone: Start: 07-25-[address] Mel[facility] Work Phone: Start: 07-24-2024 End: 07-25-[address] Melo Shrestha MD [facility] Work Phone: Start: 07-24-2024 End: 07-24-[address] Melo [facility] Work Phone: Start: 07-24-[address] Melo [facility] Work Phone: Start: 07-24-2024 End: 07-24-2024 ambulatory Melo THOMAS Facility:[facility] Start: 2024 End: [address] Melo Shrestha MD [facility] Work Phone: Start: 2024 End: [address] [facility] Work Phone: Start: [address] Mel[facility] Work Phone: Start: 2024 End: 2024 ambulatory Melo THOMAS Facility:[facility] Start: 07-18-2024 ambulatory Melo THOMAS Facil ity:[facility] Start: 07-18-[address] [facility] Work Phone: Start: 07-17-2024 End: 07-17-[address] Melo Shrestha MD [facility] Work Phone: Start: 07-17-2024 End: 07-17-[address] Melo [facility] Work Phone: Start: 07-17-[address] [facility] Work Phone: Start: 07-16-2024 End: 07-17-2024 ambulatory Melo THOMAS Facility:[facility] Start: 07-16-[address] [facility] Work Phone: Start: 07-15-2024 ambulatory Melo THOMAS Facil ity:[facility] Start: 07-15-[address] Mel[facility] Work Phone: Start: 07-12-2024 End: 07-12-[address] Melo Shrestha MD [facility] Work Phone: Start: 07-12-2024 End: 07-12-[address] Mel[facility] Work Phone: Start: 07-12-[address] [facility] Work Phone: Start: 07-12-2024 End: 07-12-2024 ambulatory Melo THOMAS Facility:[facility] Start: 07-09-2024 ambulatory Melo THOMAS Facil ity:[facility] Start: 07-09-[address] [facility] Work Phone: Start: 07-08-2024 End: 07-08-[address] Melo Shrestha MD [facility] Work Phone: Start: 07-08-2024 End: 07-08-[address] [facility] Work Phone: Start: 07-08-[address] [facility] Work Phone: Start: 07-08-2024 End: 07-08-2024 ambulatory Melo THOMAS Facility:[facility] Start: 07-05-2024 End: 07-05-[address] Melo Shrestha MD [facility] Work Phone: Start: 07-05-2024 End: 07-05-[address] [facility] Work Phone: Start: 07-05-[address] [facility] Work Phone: Start: 07-04-2024 End: 07-05-2024 ambulatory Melo THOMAS Facility:[facility] Start: 07-04-[address] [facility] Work Phone: Start: 07-03-2024 End: 07-03-[address] Melo Shrestha MD [facility] Work Phone: Start: 07-03-2024 End: 07-03-[address] [facility] Work Phone: Start: 07-03-[address] [facility] Work Phone: Start: 07-02-2024 End: 07-03-[address] Melo Shrestha MD [facility] Work Phone: Start: 07-02-2024 End: 07-02-[address] [facility] Work Phone: Start: 07-01-2024 End: 07-02-[address] Melo Shrestha MD [facility] Work Phone: Start: 07-01-2024 End: 07-01-[address] [facility] Work Phone: Start: 07-01-[address] [facility] Work Phone: Start: 07-01-2024 End: 07-01-2024 ambulatory Melo THOMAS Facility:[facility] Start: 06-17-2024 ambulatory Melo THOMAS Facil ity:[facility] Start: 06-17-[address] [facility] Work Phone: Start: 06-16-2024 End: 06-16-[address] Melo Shrestha MD [facility] Work Phone: Start: 06-16-2024 End: 06-16-[address] [facility] Work Phone: Start: 06-16-[address] [facility] Work Phone: Start: 06-16-2024 End: 06-16-2024 ambulatory Melo THOMAS Facility:[facility] Start: 04-04-2024 End: 04-04-[address] [facility] Work Phone: Start: 04-04-2024 End: 04-04-2024 ambulatory Melo THOMAS Facility:[facility] Start: 03-25-2024 End: 03-25-2024 ambulatory Melo THOMAS Facility:[facility] Start: 03-24-2024 End: 03-24-2024 Emergency department patient visit Melo THOMAS Facility:[facility] Start: 03-22-2024 End: 03-22-2024 ambulatory Melo THOMAS Facility:[facility] Start: 03-21-2024 End: 03-21-2024 ambulatory Melo THOMAS Facility:[facility] Start: 03-20-2024 End: 03-20-2024 ambulatory Melo Hopsonins OLS Facility:[facility] Start: 03-19-2024 End: 03-19-2024 ambulatory Melo Hopsonins OLS Facility:[facility] Start: 03-18-2024 End: 03-18-2024 ambulatory Melo Hopsonins OLS Facility:[facility] Start: 03-14-2024 End: 03-14-2024 ambulatory Melo Hopsonins OLS Facility:[facility] Start: 02-29-2024 End: 02-29-2024 ambulatory Melo Hopsonins OLS Facility:[facility] Start: 02-21-2024 End: 02-21-2024 ambulatory Melo Hopsonins OLS Facility:[facility] Start: 02-20-2024 End: 02-20-2024 ambulatory Melo Hopsonins MARTHA Facility:[facility] Start: 02-19-2024 End: 02-19-2024 ambulatory Joao Simon Facility:[facility] Start: 01-09-2024 End: 01-09-2024 ambulatory Melo Shrestha MARTHA Facility:[facility] Start: 09-11-2023 End: 09-11-2023 ambulatory [facility] Work Phone: Start: 09-11-2023 End: 09-11-[address] [facility] Work Phone: Start: 08-30-2023 End: 08-30-2023 ambulatory [facility] Work Phone: Start: 08-30-2023 End: 08-30-[address] [facility] Work Phone: Start: 08-09-2023 End: 08-09-2023 ambulatory [facility] Work Phone: Start: 08-09-2023 End: 08-09-[address] [facility] Work Phone: Start: 07-26-2023 End: 07-26-2023 ambulatory [facility] Work Phone: Start: 07-26-2023 End: 07-26-2023 Departed Referred [facility] Work Phone: Start: 07-11-2023 End: 07-11-2023 ambulatory [facility] Work Phone: Start: 07-11-2023 End: 07-11-2023 Departed Referred [facility] Work Phone: Start: 06-28-2023 End: 06-28-2023 ambulatory [facility] Work Phone: Start: 06-28-2023 End: 06-28-2023 Departed Referred [facility] Work Phone: Start: 06-28-2023 Registered Referred [facility] Work Phone: Start: 06-14-2023 End: 06-14-2023 ambulatory [facility] Work Phone: Start: 06-14-2023 End: 06-14-2023 Departed Referred [facility] Work Phone: Start: 05-31-2023 End: 05-31-2023 ambulatory [facility] Work Phone: Start: 05-31-2023 End: 05-31-2023 Departed Referred [facility] Work Phone: Start: 05-23-2023 End: 05-23-2023 ambulatory [facility] Work Phone: Start: 05-23-2023 End: 05-23-2023 Departed Referred [facility] Work Phone: Start: 05-08-2023 End: 05-08-2023 ambulatory [facility] Work Phone: Start: 05-08-2023 End: 05-08-2023 [facility] Work Phone: Start: 04-06-2023 End: 04-06-[address] Hortensia Unger Work Phone: [facility] Work Phone: Start: 04-06-2023 End: 04-06-[address] Hortensia Unger Work Phone: [facility] Work Phone: Start: 03-06-2023 End: 03-06-[address] Hortensia Unger Work Phone: [facility] Work Phone: Start: 02-21-2023 End: 02-21-[address] Hortensia Unger Work Phone: [facility] Work Phone: Start: 02-21-2023 End: 02-21-[address] Hortensia Unger Work Phone: [facility] Work Phone: Start: 02-14-2023 End: 02-14-[address] Hortensia Unger Work Phone: [facility] Work Phone: Start: 02-14-2023 End: 02-14-[address] Hortensia Unger Work Phone: [facility] Work Phone: Start: 02-14-[address] Hortensia menchaca Work Phone: [facility] Work Phone: Start: 02-07-2023 End: 02-07-[address] Hortensia Unger Work Phone: [facility] Work Phone: Start: 02-07-2023 End: 02-07-[address] Hortensia Unger Work Phone: [facility] Work Phone: Start: 02-02-2023 End: 02-02-2023 Emergency department patient visit Dr. Hortensia Unger Work Phone: [facility]-Emergency Department Work Phone: Start: 01-09-2023 End: 01-09-[address] Hortensia Unger Work Phone: [facility] Work Phone: Start: 01-03-2023 End: 01-03-[address] Hortensia Unger Work Phone: [facility] Work Phone: Start: 11-30-2022 End: 11-30-2022 ambulatory [facility] Work Phone: Start: 11-30-2022 End: 11-30-[address] [facility] Work Phone: Start: 11-30-2022 Registered Referred [facility] Work Phone: Start: 11-16-2022 End: 11-16-2022 ambulatory [facility] Work Phone: Start: 11-16-2022 End: 11-16-[address] [facility] Work Phone: Start: 11-02-2022 End: 11-02-2022 ambulatory [facility] Work Phone: Start: 11-02-2022 End: 11-02-[address] [facility] Start: 10-19-2022 End: 10-19-[address] [facility] Start: 10-05-2022 End: 10-05-[address] Hortensia Unger Work Phone: [facility] Work Phone: Start: 10-05-2022 End: 10-05-[address] Hortensia Unger Work Phone: [facility] Start: 10-03-2022 End: 10-03-[address] Hortensia Unger Work Phone: [facility] Work Phone: Start: 10-03-2022 End: 10-03-[address] Hortensia Unger Work Phone: [facility] Start: 09-28-2022 End: 09-28-[address] Hortensia Unger Work Phone: [facility] Work Phone: Start: 09-28-2022 End: 09-28-[address] Hortensia Unger Work Phone: [facility] Start: 09-28-[address] Hortensia menchaca Work Phone: [facility] Start: 09-20-2022 End: 09-20-[address] Hortensia Unger Work Phone: [facility] Start: 09-16-2022 End: 09-16-[address] Hortensia Unger Work Phone: [facility] Work Phone: Start: 09-16-2022 End: 09-16-[address] Hortensia Unger Work Phone: [facility] Start: 09-16-[address] Hortensia menchaca Work Phone: [facility] Start: 08-29-2022 End: 08-29-[address] Hortensia Unger Work Phone: [facility] Work Phone: Start: 08-29-2022 End: 08-29-[address] Hortensia Unger Work Phone: [facility] Start: 08-08-2022 End: 08-08-[address] Hortensia Unger Work Phone: [facility] Start: 07-28-2022 End: 07-28-[address] Hortensia Unger Work Phone: [facility] Start: 07-11-2022 End: 07-11-[address] Hortensia Unger Work Phone: [facility] Work Phone: Start: 07-11-2022 End: 07-11-[address] Hortensia Unger Work Phone: [facility] Start: 07-01-2022 End: 07-01-[address] Hortensia Unger Work Phone: [facility] Start: 06-17-2022 Non-patient / Non-visit Dr. Isacc Unger Work Phone: [facility] Start: 06-16-2022 Non-patient / Non-visit Dr. Isacc Unger Work Phone: [facility] Start: 06-16-2022 End: 06-17-2022 Evaluation and management of inpatient [facility] Start: 06-16-2022 End: 06-17-[address] Hortensia Unger Work Phone: [facility] Work Phone: Start: 06-06-2022 End: 06-06-2022 ambulatory [facility] Work Phone: Start: 06-06-2022 End: 06-06-2022 Departed Referred [facility] Start: 05-09-2022 End: 05-09-2022 Departed Referred [facility] Start: 04-07-2022 End: 04-07-2022 ambulatory [facility] Work Phone: Start: 04-07-2022 End: 04-07-2022 Departed Referred [facility] Start: 03-26-2022 End: 03-26-2022 ambulatory [facility] Work Phone: Start: 03-26-2022 End: 03-26-2022 Departed Referred [facility] Start: 03-26-2022 Registered Referred [facility] Start: 03-16-2022 End: 03-16-2022 ambulatory [facility] Work Phone: Start: 03-16-2022 End: 03-16-2022 Departed Referred [facility] Start: 03-16-2022 Registered Referred [facility] Start: 03-15-2022 End: 03-15-2022 ambulatory [facility] Work Phone: Start: 03-15-2022 End: 03-15-2022 Departed Referred [facility] Start: 03-07-2022 End: 03-07-2022 Emergency department patient visit [facility] Start: 03-07-2022 End: 03-07-2022 ambulatory [facility] Work Phone: Start: 03-07-2022 End: 03-07-2022 [facility] Start: 02-03-2022 End: 02-03-[address] Joao Simon Work Phone: [facility] Work Phone: Start: 02-03-2022 End: 02-03-[address] Joao Simon Work Phone: [facility] Start: 01-06-2022 End: 01-06-[address] Joao Simon Work Phone: [facility] Work Phone: Start: 01-06-2022 End: 01-06-[address] Joao Simon Work Phone: [facility] Start: 12-20-[address] Joao morin Work Phone: [facility] Start: 12-13-[address] Joao morin Work Phone: [facility] Start: 12-10-[address] Joao morin Work Phone: [facility] Start: 12-02-[address] Joao morin Work Phone: [facility] Start: 11-25-[address] Joao morin Work Phone: [facility] Start: 11-23-[address] Joao morin Work Phone: [facility] Start: 11-18-2021 End: 11-18-[address] Joao Simon Work Phone: [facility] Start: 11-04-2021 End: 11-12-2021 Evaluation and management of inpatient Dr. Joao Simon Work Phone: [facility] Start: 11-04-2021 Non-patient / Non-visit Dr. Rodrick Simon Work Phone: [facility] Start: 11-03-2021 Non-patient / Non-visit Dr. Rodrick Simon Work Phone: [facility] Start: 11-02-2021 End: 11-04-2021 Evaluation and management of inpatient [facility] Start: 10-21-2021 End: 10-21-[address] [facility] Start: 10-13-2021 End: 10-13-[address] [facility] Start: 10-06-2021 End: 10-06-[address] [facility] Start: 09-29-2021 End: 09-29-[address] Joe Rosario Work Phone: [facility] Start: 09-14-2021 End: 09-14-[address] [facility] Start: 08-27-2021 End: 08-27-[address] [facility] Start: 08-11-2021 End: 08-11-[address] [facility] Start: 07-28-2021 End: 07-28-[address] [facility] Start: 07-14-2021 End: 07-14-[address] Joe Rosario Work Phone: [facility] Start: 06-18-2021 End: 06-26-2021 Evaluation and management of inpatient Dr. Joe Rosario Work Phone: [facility] Start: 06-18-2021 Non-patient / Non-visit Dr. Peraza Work Phone: [facility] Start: 06-17-2021 Non-patient / Non-visit Dr. Peraza Work Phone: [facility] Start: 06-17-2021 End: 06-18-2021 Evaluation and management of inpatient [facility]. Joe Rosario [facility] Start: 06-10-2021 End: 06-10-[address] Joe Rosario Work Phone: [facility] Start: 05-12-[address] [facility] Procedures Date Procedure Procedure Detail Performing Clinician [...] 11-02-2021 CT of head without contrast Dr. Jooa Simon Work Phone: Start: 11-02-2021 Plain chest [...] Start: 01-27-2025 Influenza vaccination Influenza Vaccine (#1) [facility] Start: 10-09-2024 [facility] Start: 05-29-2024 Advance Directive Discussion Advance Directive Discussion [facility] Start: 05-29-2024 Medicare Advantage Annual Wellness Visit Medicare Advantage Annual Wellness Visit [facility] Start: 01-29-2023 Patient referral [facility] Work Phone: Start: 06-17-2022 Patient discharge [facility] Start: 06-16-2022 Assessment of risk of venous thromboembolism [facility] Start: 06-16-2022 Cardiac monitoring [facility] Start: 06-16-2022 Catheterization of vein [facility] Start: 06-16-2022 Continuous pulse oximetry [facility] Start: 06-16-2022 Exercises [facility] Start: 06-16-2022 Insertion of catheter into peripheral vein [facility] Start: 06-16-2022 Measuring intake and output [facility] Start: 06-16-2022 Notification of physician [facility] Start: 06-16-2022 Oxygen therapy [facility] Start: 06-16-2022 Providing care according to standard [facility] Start: 06-16-2022 Provision of activity privileges [facility] Start: 06-16-2022 Referral to occupational therapist [facility] Start: 06-16-2022 Referral to service [facility] Start: 06-16-2022 Speech therapy assessment [facility] Start: 06-16-2022 [facility] Start: 06-16-2022 Following clinical pathway protocol [facility] Start: 06-16-2022 Verification routine [facility] Start: 06-16-2022 Admission procedure [facility] Start: 06-16-2022 [facility] Start: 12-24-2021 Blood chemistry [facility] Work Phone: Start: 12-17-2021 Blood chemistry [facility] Work Phone: Start: 12-10-2021 Blood chemistry [facility] Work Phone: Start: 12-03-2021 Blood chemistry [facility] Work Phone: Start: 11-29-2021 Prothrombin time [facility] Work Phone: Start: 11-26-2021 Blood chemistry [facility] Work Phone: Start: 11-25-2021 Prothrombin time [facility] Work Phone: Start: 11-22-2021 Prothrombin time [facility] Work Phone: Start: 11-19-2021 Blood chemistry [facility] Work Phone: Start: 11-18-2021 Prothrombin time [facility] Work Phone: Start: 11-15-2021 Prothrombin time [facility] Work Phone: Start: 11-14-2021 Development of care plan [facility] Work Phone: Start: 11-12-2021 Blood chemistry [facility] Work Phone: Start: 11-12-2021 Patient discharge [facility] Work Phone: Start: 11-11-2021 SARS-CoV-2 (COVID-19) Ag [Presence] in Respiratory specimen by Rapid immunoassay [facility] Work Phone: Start: 11-11-2021 [facility] Work Phone: Start: 11-11-2021 Prothrombin time [facility] Work Phone: Start: 11-10-2021 Referral to service [facility] Work Phone: Start: 11-08-2021 [facility] Work Phone: Start: 11-05-2021 Speech therapy management [facility] Work Phone: Start: 11-05-2021 Developing a treatment plan [facility] Work Phone: Start: 11-05-2021 Development of care plan [facility] Work Phone: Start: 11-05-2021 Speech therapy assessment [facility] Work Phone: Start: 11-04-2021 Following clinical pathway protocol [facility] Work Phone: Start: 11-04-2021 Admission procedure [facility] Work Phone: Start: 11-04-2021 Measuring intake and output [facility] Work Phone: Start: 11-04-2021 Patient referral to dietitian [facility] Work Phone: Start: 11-04-2021 Referral to occupational therapist [facility] Work Phone: Start: 11-04-2021 Referral to service [facility] Work Phone: Start: 11-04-2021 Verification routine [facility] Work Phone: Start: 11-04-2021 Vital signs measurements [facility] Work Phone: Start: 11-04-2021 [facility] Work Phone: Start: 11-04-2021 Patient discharge [facility] Work Phone: Start: 11-03-2021 Inhalation therapy procedure [facility] Work Phone: Start: 11-02-2021 Assessment of risk of venous thromboembolism [facility] Work Phone: Start: 11-02-2021 Insertion of catheter into peripheral vein [facility] Work Phone: Start: 11-02-2021 Providing care according to standard [facility] Work Phone: Start: 11-02-2021 Provision of activity privileges [facility] Work Phone: Start: 11-02-2021 Referral to occupational therapist [facility] Work Phone: Start: 11-02-2021 Referral to service [facility] Work Phone: Start: 11-02-2021 [facility] Work Phone: Start: 11-02-2021 Following clinical pathway protocol [facility] Work Phone: Start: 11-02-2021 Admission procedure [facility] Work Phone: Start: 03-07-2018 Diabetic foot examination Diabetic Foot Exam [facility] Start: 03-06-2018 Hepatitis B screening Urine Albumin:Creatinine Ratio [facility] Start: 03-06-2018 Hepatitis B surface antibody level LDL Cholesterol [facility] Start: 09-04-2017 Hemoglobin A1c measurement HbA1C [facility] Start: 04-29-2017 Glaucoma screening Dilated Retinal Exam [facility] Start: 02-06-2016 Urine microalbumin profile DTaP,Tdap,Td Vaccine (1 - Tdap) [facility] Start: 2012 RSV Vaccine (1 - 1-dose 75+ series) RSV Vaccine (1 - 1-dose 75+ series) [facility] Start: 1987 Shingrix Vaccine (1 of 2) Shingrix Vaccine (1 of 2) [facility] Anion gap measurement [facility] Work Phone: BUN/Creatinine ratio [facility] Work Phone: Calcium [Mass/volume ] in Serum or Plasma [facility] Work Phone: Carbon dioxide, tota l [Moles/volume] in Serum or Plasma [facility] Work Phone: Chloride [Moles/volu me] in Serum or Plasma [facility] Work Phone: Creatinine [Moles/vo lume] in Serum or Plasma [facility] Work Phone: Folate [Mass/volume] in Serum or Plasma [facility] Glucose [Mass/volume ] in Serum or Plasma [facility] Work Phone: Hematocrit [Volume Fraction] of Blood [facility] Work Phone: Hemoglobin [Mass/vol ume] in Blood [facility] Work Phone: INR in Blood by Coag ulation assay [facility] Work Phone: [place] and lambda lig ht chains [facility] Leukocytes [#/volume ] in Blood [facility] Work Phone: Mean corpuscular hem oglobin concentration determination [facility] Work Phone: Mean corpuscular hem oglobin determination [facility] Work Phone: Measurement of renal function [facility] Work Phone: Neutrophil count [facility] Work Phone: Neutrophil percent differential count [facility] Work Phone: Patient Education [facility] Work Phone: Patient referral [facility] Work Phone: Platelets [#/volume] in Blood [facility] Work Phone: Potassium [Moles/vol ume] in Serum or Plasma [facility] Work Phone: Prothrombin time [facility] Work Phone: Red blood cell count [facility] Work Phone: Red cell distributio n width determination [facility] Work Phone: Sodium [Moles/volume ] in Serum or Plasma [facility] Work Phone: Thiamine measurement [facility] Thyroid stimulating hormone measurement [facility] Urea nitrogen [Mass/ volume] in Serum or Plasma [facility] Work Phone: US Heart [facility] Work Phone: Vitamin B12 measurement [facility] Immunizations Immunization Date Immunization Notes Care Provider Fran perez 11-09-2021 Covid (Pfizer) Dr. Joao lakhani Work Phone: [facility] 04-16-[address] Joe Rosario Work Phone: [facility] 03-17-2021 Covid (Pfizer) Dr. Joe Riggs nnedy Work Phone: [facility] 07-16-2020 Covid (Pfizer) Dr. Joe Riggs nnedy Work Phone: [facility] 06-24-2020 Covid (Pfizer) Dr. Joe Riggs nnedy Work Phone: [facility] 02-15-2017 influenza, high dose seasonal, preservative-free Diana Simon MD Work Phone: [facility] 02-15-2017 influenza virus vacc ine, unspecified formulation Diana Simon MD Work Phone: [facility] 05-13-2016 influenza, high dose seasonal, preservative-free Diana Simon MD Work Phone: [facility] 03-08-[address] Joe Rosario Work Phone: [facility] 02-05-2016 tetanus and diphther ia toxoids, adsorbed, preservative free, for adult use (5 Lf of tetanus toxoid and 2 Lf of diphtheria toxoid) Diana Simon MD Work Phone: [facility] 03-31-2015 influenza, high dose seasonal, preservative-free Diana Simon MD Work Phone: [facility] 06-30-2014 pneumococcal conjuga te vaccine, 13 valent Diana Simon MD Work Phone: [facility] 03-26-2014 influenza, seasonal, injectable Diana Simon MD Work Phone: [facility] 03-30-2013 influenza virus vacc ine, unspecified formulation Diana Simon MD Work Phone: [facility] 05-07-2012 influenza virus vacc ine, unspecified formulation Diana Simon MD Work Phone: [facility] 04-18-2011 influenza virus vacc ine, unspecified formulation Diana Simon MD Work Phone: [facility] 02-17-2009 influenza virus vacc ine, unspecified formulation Diana Simon MD Work Phone: [facility] Work Phone: 04-01-2008 influenza virus vacc ine, unspecified formulation Diana Simon MD Work Phone: [facility] 03-28-2007 influenza virus vacc ine, unspecified formulation Diana Simon MD Work Phone: [facility] Work Phone: 05-15-2006 influenza virus vacc ine, unspecified formulation Diana Simon MD Work Phone: [facility] 02-26-2006 pneumococcal polysaccharide vaccine, 23 valent Diana Simon MD Work Phone: [facility] 01-13-2006 tetanus and diphther ia toxoids, adsorbed, preservative free, for adult use (2 Lf of tetanus toxoid and 2 Lf of diphtheria toxoid) Diana Simon MD Work Phone: [facility] 03-22-2005 influenza virus vacc ine, unspecified formulation Diana Simon MD Work Phone: [facility] Payers Date Payer Category Payer Self-pay [id number] 2018 Medicare (Managed Care) [employer]MO [employer] PPO [id number] 2015 Medicare [id number] Unknown [id number] [id number] .2.462 Unknown [id number] 2.16.840.1.941910.3.579 .2.462 Unknown [id number] 2.16.840.1.745817.3.579 .2.462 Unknown [id number] 2.16.840.1.923106.3.579 .2.462 Unknown [id number] 2.16.840.1.630417.3.579 .2.462 Unknown [id number] 2.16.840.1.957351.3.579 .2.462 Unknown [id number] 2.16.840.1.053907.3.579 .2.462 Unknown [id number] 2.16.840.1.295083.3.579 .2.462 Unknown [id number] 2.16.840.1.726445.3.579 .2.462 Unknown [id number] 2.16.840.1.669350.3.579 .2.462 Unknown [id number] 2.16.840.1.428491.3.579 .2.462 Unknown [id number] 2.16.840.1.592718.3.579 .2.462 Unknown [id number] 2.16.840.1.419722.3.579 .2.462 Unknown [id number] 2.16.840.1.625523.3.579 .2.462 Unknown [id number] 2.16.840.1.300882.3.579 .2.462 Unknown [id number] 2.16.840.1.901252.3.579 .2.462 Unknown [id number] 2.16.840.1.637269.3.579 .2.462 Unknown [id number] 2.16.840.1.465860.3.579 .2.462 Unknown [id number] 2.16.840.1.460174.3.579 .2.462 Unknown [id number] 2.16.840.1.698819.3.579 .2.462 Unknown [id number] 2.16.840.1.863652.3.579 .2.462 Unknown [id number] 2.16.840.1.882514.3.579 .2.462 Unknown [id number] 2.16.840.1.386306.3.579 .2.462 Unknown [id number] 2.16.840.1.574454.3.579 .2.462 Unknown [id number] 2.16.840.1.727622.3.579 .2.462 Unknown [id number] 2.16.840.1.435678.3.579 .2.462 Unknown [id number] 2.16.840.1.006372.3.579 .2.462 Unknown [id number] 2.16840.1.181768.3.579 .2.462 Unknown [id number] 2.16840.1.600924.3.579 .2.462 Unknown [id number] 2.16.840.1.129011.3.579 .2.462 Unknown [id number] 2.16.840.1.773032.3.579 .2.462 Unknown [id number] 2.16.840.1.266227.3.579 .2.462 Unknown [id number] 2.16840.1.808937.3.579 .2.462 Unknown [id number] 2.16840.1.711480.3.579 .2.462 Unknown [id number] 2.16840.1.583304.3.579 .2.462 Unknown [id number] 2.16840.1.290000.3.579 .2.462 Unknown [id number] 2.16840.1.800866.3.579 .2.462 Social History Date Type Detail Facility Start: 06-18-2021 End: 02-02-2023 Tobacco smoking status NHIS Unknown if ever smoked [facility] Start: 04-11-2019 None [facility] Start: 09-06-2019 Alone [facility] Start: 1935 Sex Assigned At Female [facility] Start: 03-24-2024 End: 12-17-2024 Tobacco smoking status NHIS Ex-smoker (finding) [facility] Start: 08-02-2024 End: 09-10-2024 Sex Female (finding) [facility] Start: [birth year]-29-1960 End: 05-29-1987 History of tobacco use Current smoker [facility] Start: 05-29-1962 End: 05-29-1987 History of tobacco use Cigarette Smoker [facility] Start: 12-17-2024 Cigarettes smoked current (pack per day) - Reported 1 [facility] Start: 12-17-2024 Tobacco use and exposure Smokeless tobacco non-user [facility] Start: 12-17-2024 Alcoholic beverage intake Current drinker of alcohol (finding) [facility] Start: 12-17-2024 Tobacco use panel [facility] Adult Depression Screening Assessment 1 [facility] Start: 03-29-2013 Alcohol Comment 1 glass of win e per month or [facility] Start: 1935 Sex assigned at Not on file [facility] Medical Equipment Procedure Code Equipment Code Equipment Origin al Text Equipment Identifier Dates Stendal Ptfe 1.2 Cm X 10 Cm - [id number] Start: 04-02-2013 Comment on above: Description: Stendal pl edgets Test blood sugar(s) one times daily. Dx: Type 2 DM - Controlled E11.40 Insulin: No [id number] Start: 02-16-2016 End: 12-20-2024 Test blood sugar(s) one times daily. Dx: Type 2 DM - Controlled E11.40 Insulin: No [id number] Start: 02-16-2016 End: 12-20-2024 Goals Date Patient Goal Desired Activity /State Functional Status Date Assessment Result Facility 06-17-2022 Functional status Bedrest [facility] Work Phone: 11-12-2021 Functional status Ambulates;Up ad romero [facility] Work Phone: 11-10-2021 Functional status Ambulates;Up ad romero [facility] Work Phone: 11-04-2021 Functional status Chair [facility] Work Phone: 06-25-2021 Functional status Activity Abili ty Independent [facility] Work Phone: 06-22-2021 Functional status Ambulates [facility] Work Phone: 06-18-2021 Functional status Patient Activity Chair [facility] Work Phone: 06-18-2021 Functional status Activity Abili ty With Assist of 1 [facility] Work Phone: 10-13-2015 Are you deaf, or do you have serious difficulty hearing No 10/13/2015 9:43 AM Henrietta Ortega RN No [facility] 10-13-2015 Are you blind, or do you have serious difficulty seeing, even when wearing glasses No 10/13/2015 9:43 AM Henrietta Ortega RN No [facility] 10-13-2015 Do you have serious difficulty walking or climbing stairs No 10/13/2015 9:43 AM Henrietta Ortega, SAI No [facility] 10-13-2015 Do you have difficul ty dressing or bathing No 10/13/2015 9:43 AM Henrietta Ortega, SAI No [facility] 10-13-2015 Because of a physica l, mental, or emotional condition, do you have difficulty doing errands alone such as visiting a physician's office or shopping No 10/13/2015 9:43 AM Henrietta Ortega RN No [facility] Mental Status Date Assessment Result Facility 06-17-2022 Cognitive function Voice/Name [facility] Work Phone: 06-16-2022 Cognitive function Voice/Name [facility] Work Phone: 11-12-2021 Cognitive function Voice/Name [facility] Work Phone: 11-10-2021 Cognitive function Comprehension Ability Demonstrates ability to follow instructions/comprehend [facility] Work Phone: 11-09-2021 Cognitive function Voice/Name [facility] Work Phone: 11-05-2021 Cognitive function Comprehension Ability Demonstrates ability to follow instructions/comprehend [facility] Work Phone: 11-04-2021 Cognitive function Appropriate;Cooperativ e [facility] Work Phone: 06-25-2021 Cognitive function Voice/Name [facility] Work Phone: 06-18-2021 Cognitive function Voice/Name [facility] Work Phone: 10-13-2015 Because of a physica l, mental, or emotional condition, do you have serious difficulty concentrating, remembering, or making decisions No 10/13/2015 9:43 AM EDT Henrietta Newberry RN [facility] Clinical Notes 04-02-2013 to 12-20-2024 Diana Simon MD - 12/20/2024 5:46 PM EDT Note Date & Type Note Facility 12-20-2024 Note HNO ID: [id number] Author: DIANA SIMON MD Service: ? Author Type: Physician Type: Progress Notes Filed: 12/20/2024 17:59 Note Text: [facility] PATIENT EVALUATION Recording using ambient Comply365 software for draft documentation of the visit was discussed with the patient/authorized account representative; all questions welcomed and answered. Patient/authorized account representative agreed to proceed Referring Provider: Melo Shrestha [address] [facility] [address] Dear Melo Shrestha: Thank you for referring [...] three years ago by a neurologist in [place]. At the time of diagnosis, she was [...] physical therapy and an exercise class called [employer] at her [facility], which she enjoys. She does not [...] in the corn (more content not included)... [facility] 12-20-2024 History of Present illness Narrative [facility] - NEW PATIENT EVALUATION Recording using [employer] software for draft documentation of the visit was discussed with the patient/authorized account representative; all questions welcomed and answered. Patient/authorized account representative agreed to proceed Referring Provider: Melo Shrestha 0 [facility] [address] Dear Melo Shrestha: Thank you for referring [...] three years ago by a neurologist in [place]. At the time of diagnosis, she was [...] physical therapy and an exercise class called [employer] at her [facility], which she enjoys. 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 Coordination Right: Mifnrg-si-ecjf normal. Rapid alternating movement normal.Left: Bmrcwr-un-qfys normal. Rapid alternating movement normal. Movement Disorders [...] diagnosed 3 years ago by neurology in [place]; currently on carbidopa-levodopa (Sinemet) with unclear benefit. [...] vibratory sensation in ankles, mild tremor on ikmixd-uo-gjrd testing, micrographia, and slowed speech. More convincing [...] mg twice daily Level of service : 80630 (45-59 min). Time spent 56 min on the day of service, which included preparing to see the patient, pufk-fx-gyse patient care, completing clinical documentation, obtaining and/or [...] Diana Simon MD documented in this encounter [facility] 10-09-2024 Radiology Diagnostic study note [facility] Imaging Services [address] [place] [address] [id number] Spine Cervical without Contras MR#: [id number] Acct: [id number] Name: COLETTE RICHARDSON Rep #: [id number] 4 : 1935 F 89 From: Kristen Schmidt MD PCP: Dr. Melo Shrestha MD Status: REG ER Study:Spine Cervical without Contras Date of Exam: 10/09/24 Exam# [id number] Ordering Dr: Se Schmidt DO EXAM: CT [...] changes cervical spine as described. Reading Location: [facility]-HOME CC: Dr. Melo Shrestha MD; Dr. 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 Melo Shrestha MD Status: REG ER Study:Brain/Head without Contrast Date of Exa m: 10/09/24 Exam# [id number] Ordering Dr: Se Schmidt DO EXAM: CT [...] evaluation with MRI is recommended. Reading Location: [facility]-HOME CC: Dr. Melo Shrestha MD; Dr. 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 head and neck negative for acute process. Use Tylenol as needed. Follow-up with your doctor. [facility] Work Phone: 02-02-2023 Discharge summary Note Date/Time February 02, 2023 5:54pm [facility] Medical Records Department [address] [place] [address] Emergency Department Summary 02/02/23 MR#: [id number] Acct: [id number] Name: COLETTE RICHARDSON Rep #:[id number] : 1935 87 From: Matt Coy [...] concerned that that might be causing this. [facility] Medical History Atherosclerotic heart disease of lumbee coronary artery without angina pectoris Atrial fibrillation with RVR (10/01/16) Bilateral breast cancer Depression Essential hypertension Frequent falls History of non-ST elevation myocardial infarction (NSTEMI) (10/01/16) History of Parkinson's disease History of pulmonary embolus (PE) Hypercoagulable state custodial current use of anticoagulant Memory loss Nonrheumatic [...] release 24 hr 150 mg PO BREAKFAST [id number]/07/22 [History Last Taken 06/16/22 09:15] alprazolam 0.25 [...] AdvReac Itching Verified 02/02/23 15:12 [From Vicodin] Xacinbu-BGY-IvC Reductase AdvReac Other Verified 02/02/23 15:12 Inhibitor [Fbdmxcc-Zrl-Kro Reductase Inhibitor] Surgical History H/O coronary artery [...] % (Auto) 65.1 Lymph % (Auto) 24.4 Appling % (Auto) 7.9 Eos % (Auto) 1.7 [...] Clarity Clear Urine pH 6.5 Ur Specific [place] 1.015 Urine Protein Negative Urine Glucose (UA) [...] times weekly on , and [facility] carbidopa-levodopa 10-100 mg tablet,disintegrating 1 tab PO [...] 3-5 Days if not improving Disposition Disposition: Long-Term Facility What to do if you have Problems For any increased pain, shortness of breath, bleeding, nausea or vomiting, chestpain, or any unexpected problems, contact your Primary Care Provider. Call [facility] ([phone]) or report to the closest Emergency Room. Call 911 if necessary. 02/02/232013 <Electronically signed by Matt Coy MD> Cosigner Signature (if applicable): CC: Dr. Joao Simon MD ~ Signed [facility] Work Phone: 1(208) 983-264401-20-[address] Lopez [facility] June 17, 2022 1:53pm Note Date/Time June 17, 2022 1 2:29pm [facility] Medical Records Department [address] [place] [address] Instructions for Home/Discharge Instructions 06/17/22 1229 MR#: [id number] Acct: [id number] Name: COLETTE RICHARDSON Rep #:[id number] : 1935 86 From: Jesenia Lopez [...] MD; Dr. Gonzalo Stephens DO ~ Signed [facility] Work Phone: 1(440) 798-334701-19-2023 History and physical note Author Dr. Stephens [facility] June 16, 2022 8:43pm Note Date/Time June 16, 2022 8 :34pm [facility] Medical Records Department [address] [place] [address] H&P Exam - Hospitalist 06/16/222028 MR#: [id number] Acct: [id number] Name: COLETTE RICHARDSON Rep #:[id number] 4 : 1935 86 From: Gonzalo Stephens DO PCP: Dr. Hortensia Unger MD Status:ADM HUGO Location: [place] [address] HPI - General General Date of Admission: 06/16/22 Date of Service: 06/16/22 Chief Complaint: Right upper extremity weakness, slurred speech HPI Narrative COLETTE RICHARDSON, is a 86 F who presents to the emergency room at [facility] from assisted living facility with complaints of [...] her speech is slurred at this time. [facility] Medical History Atherosclerotic heart disease of lumbee coronary artery without angina pectoris Atrial fibrillation with RVR (10/01/16) Bilateral breast cancer Depression Essential hypertension Frequent falls History of non-ST elevation myocardial infarction (NSTEMI) (10/01/16) History of pulmonary embolus (PE) Hypercoagulable state custodial current use of anticoagulant Memory loss Nonrheumatic [...] release 24 hr 150 mg PO BREAKFAST HCGRSNGVFN19/07/22 [History Last Taken 06/16/22 09:15] alprazolam 0.25 [...] AdvReac Itching Verified 06/16/22 12:15 [From Vicodin] Qohatra-UFJ-QhB Reductase AdvReac Other Verified 06/16/22 16:35 Inhibitor [Qbijygn-Kzf-Ouw Reductase Inhibitor] Surgical History H/O coronary artery [...] % (Auto) 56.3, Lymph % (Auto) 30.6, Appling % (Auto) 8.2, Eos % (Auto) 3.9, [...] GFR (MDRD) Non-Af 83, BUN/Creatinine Ratio 16.8, Rxifyov10, Calcium 8.9, Troponin I High Sens 9 [...] team: 55-minute Charges/Coding Visit Charges Inpatient E&M: 89448 Init Hosp L2 06/16/222042 <Electronically signed by Gonzalo Stephens DO> Cosigner Signature (if applicable): CC: Dr. Hortensia Unger MD; Dr. Gonzalo Stephens DO~ Signed [facility] Work Phone: 1(184) 544-403001-19-[address] Davis [facility] June 16, 2022 4:46pm Note Date/Time June 16, 2022 1 2:52pm [facility] Medical Records Department [address] [place] [address] Emergency Department Summary 06/16/22 MR#: [id number] Acct: [id number] Name: COLETTE RICHARDSON Rep #:[id number] 4 : 1935 86 From: Jesse Davis [...] PFSH Medical History Atherosclerotic heart disease of lumbee coronary artery without angina pectoris Atrial fibrillation with RVR (10/01/16) Bilateral breast cancer Depression Essential hypertension Frequent falls History of non-ST elevation myocardial infarction (NSTEMI) (10/01/16) History of pulmonary embolus (PE) 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 Patient placed on manager creative services. Stroke teamwas activated after my evaluation of [...] % (Auto) 56.3 Lymph % (Auto) 30.6 Appling % (Auto) 8.2 Eos % (Auto) 3.9 [...] Parkinson's disease Disposition Disposition: Acute Care Hospital [facility] What to do if you have Problems For any increased pain, shortness of breath, bleeding, nausea or vomiting, chestpain, or any unexpected problems, contact your Primary Care Provider. Call [facility] ([phone]) or report to the closest Emergency Room. Call 911 if necessary. 06/16/22 1646 <Electronically signed by Jesse Davis DO> Cosigner Signature (if applicable): CC: Dr. 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 Heart failure with preserved ejection fraction chronic [facility] Work Phone: 1(216) 662-731611-05-2013 Evaluation note* Diagnosis Onset Date Resolution Status Dyspnea on minimal exertion acute Essential hypertension acute Paroxysmal atrial fibrillation acute 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, 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 Heart failure with preserved ejection fraction chronic Acute hyponatremia acute Acute metabolic encephalopathy acute Hypokalemia acute [facility] Work Phone: 1(848) 324-979811-05-2013 Evaluation note* Diagnosis Onset Date Resolution Status Dyspnea on minimal exertion acute Essential hypertension acute Paroxysmal atrial fibrillation acute 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, 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 Heart failure with preserved ejection fraction chronic Acute hyponatremia acute Acute metabolic encephalopathy acute Frequent falls acute Hypokalemia acute Memory loss acute Poor balance acute [facility] Work Phone: 1(997) 207-899911-05-2013 Evaluation note* Diagnosis Onset Date Resolution Status [...] Restrictive lung disease acu te Hypertension chronic [facility] Work Phone: 1(176) 287-945111-05-2013 Evaluation note* Diagnosis Onset Date Resolution Status [...] resolved Acute metabolic encephalopathy resolved Hypokalemia resolved [facility] Work Phone: Evaluation note* Diagnosis Onset Date Resolution Status Allergic rhinitis acute Atrial fibrillation acute Coronary artery disease acut e Debility acute Depression acute Edema acute Hyperlipidemia acute Insomnia acute Left hip pain acute Left rotator cuff tear arthropathy acute [facility] Work Phone: Evaluation note* Diagnosis Onset Date Resolution Status Hyperlipidemia acute Allergic rhinitis resolved Debility resolved Depression resolved Insomnia resolved Left hip pain resolved Left rotator cuff tear arthropathy resolved Dyspnea on minimal exertion acute Essential hypertension acute Paroxysmal atrial fibrillation acute 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, 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 Heart failure with preserved ejection fraction chronic [facility] Work Phone: Evaluation note* Diagnosis Onset Date Resolution Status Acute hyponatremia resolved Acute metabolic encephalopathy resolved Hypokalemia resolved Atrial fibrillation acute Coronary artery disease acut e Debility acute Depression acute Edema acute Hyperlipidemia acute Insomnia acute Restrictive lung disease acu te Hypertension chronic Acute hyponatremia resolved Acute metabolic encephalopathy resolved Hypokalemia resolved [facility] Work Phone: Evaluation noteNo assessment information available [facility] Work Phone: Evaluation note* Diagnosis Onset Date Resolution Status Acute CVA (cerebrovascular accident) acute History of atrial fibrillation acute History of hypertension acut e History of Parkinson's disease acute [facility] Work Phone: Evaluation note* Diagnosis Onset Date Resolution Status Acute CVA (cerebrovascular accident) acute History of atrial fibrillation acute History of hypertension acut e History of Parkinson's disease acute Right arm weakness acute [facility] Work Phone: Evaluation note* Diagnosis Onset Date Resolution Status History of atrial fibrillation acute History of hypertension acut e History of Parkinson's disease acute Acute CVA (cerebrovascular accident) resolved Right arm weakness resolved [facility] Work Phone: Evaluation note* Diagnosis Onset Date Resolution Status Abnormality of gait and mobility acute History of stroke acute Parkinsonism acute Polyneuropathy acute Dementia chronic [facility] Work Phone: Evaluation note* Diagnosis Parkinsonism, unspecified Parkinsonism type (HCC)- Primary Multifactorial gait disorder Abnormality of gait documented in [facility] encounter [facility]: Reason for referral (narrative)No reason for referral information available[facility] Work Phone: Summary Purpose Family History No [...] Date/ Time Name of Medical Power of Manager Pet pool castillo June 17, 2021 1:59pm Living Will Yes June 21 12:54pm Power of Manager Pet Yes June 21, 2021 12:54pm Advance Directive Response Recorded Date/ Time Living Will Yes June 21 12:54pm Power of Manager Pet Yes June 21, 2021 12:54pm Advance Directive Response Recorded Date/ Time Living Will Yes November 02, 2021 3 :59pm Power of Manager Pet Yes November 02, 2021 3:59pm Advance Directive Response Recorded Date/ Time Name of Medical Power of Manager Pet DAUGHTER, KRISTIN GRIER November 02, 2021 3:59pm Name of Medical Power of Manager Pet Pool castillo November 05, 2021 2:10pm Living Will Yes November 05, 2021 2:10pm Power of Manager Pet Yes November 05 2:10pm Advance Directive Response Recorded Date/ Time Living Will No March 07 3:07pm Power of Manager Pet No March 07, 2022 3:07pm Advance Directive Response Recorded Date/ Time Living Will No March 07 2:07pm Power of Manager Pet No March 07, 2022 2:07pm Advance Directive Response Recorded Date/ Time Name of Medical Power of Manager Pet Pool castillo June 16, 2022 6:12pm Living Will Yes June 16 6:12pm Power of Manager Pet Yes June 16, 2022 6:12pm Advance Directive Response Recorded Date/ Time Name of Medical Power of Manager Pet Pool castillo June 16, 2022 7:12pm Living Will Yes June 16 7:12pm Power of Manager Pet Yes June 16, 2022 7:12pm Advance Directive Response Recorded Date/ Time Living Will Yes June 16 7:12pm Power of Manager Pet Yes June 16, 2022 7:12pm Advance Directive Response Recorded Date/ Time Living Will Yes June 16 6:12pm Power of Manager Pet Yes June 16, 2022 6:12pm Advance Directive Response Recorded Date/ Time Do you have a Healthcare Power of Manager Pet? No October 09, 2024 7:14pm Chief Complaint [...] ENCEPHALOPATHY, HYPONATREMIA HYPONATREMIA, METABOLIC ENCEPHALOPATHY, FREQ FALLS CORRECTION LABWORK Reason for Visit Dyspnea on minimal [...] ENCEPHALOPATHY, HYPONATREMIA HYPONATREMIA, METABOLIC ENCEPHALOPATHY, FREQ FALLS CORRECTION LABWORK CORRECTION LABWORK CORRECTION LAB WORK CORRECTION LAB WORK CORRECTION LABWORK CORRECTION LABWORK CORRECTION LABWORK CORRECTION LAB WORK Reason for Visit Dyspnea on [...] ENCEPHALOPATHY, HYPONATREMIA HYPONATREMIA, METABOLIC ENCEPHALOPATHY, FREQ FALLS CORRECTION LABWORK CORRECTION LABWORK CORRECTION LAB WORK CORRECTION LAB WORK CORRECTION LABWORK CORRECTION LABWORK CORRECTION LABWORK CORRECTION LAB WORK CORRECTION LAB WORK Reason for Visit Acute hyponatremia Acute metabolic encephalopathy Hypokalemia Atrial fibrillation Coronary artery disease Debility Depression Edema Hyperlipidemia Insomnia Restrictive lung disease Hypertension Acute hyponatremia Acute metabolic encephalopathy Hypokalemia Chief Complaint CORRECTION LABWORK CORRECTION LABWORK CORRECTION LAB WORK CORRECTION LAB WORK CORRECTION LABWORK CORRECTION LABWORK CORRECTION LABWORK CORRECTION LAB WORK CORRECTION LAB WORK CORRECTION LAB WORK SOB Chief Complaint CORRECTION LABWORK CORRECTION LABWORK CORRECTION LAB WORK CORRECTION LAB WORK CORRECTION LABWORK CORRECTION LABWORK CORRECTION LABWORK CORRECTION LAB WORK CORRECTION LAB WORK CORRECTION LAB WORK SOB CORRECTION LABWORK Chief Complaint CORRECTION LAB WOR K CORRECTION LAB WORK CORRECTION LABWORK CORRECTION LABWORK CORRECTION LABWORK CORRECTION LAB WORK CORRECTION LAB WORK CORRECTION LAB WORK SOB CORRECTION LABWORK CORRECTION LAB WORK Chief Complaint CORRECTION LABWORK CORRECTION LABWORK CORRECTION LABWORK CORRECTION LAB WORK CORRECTION LAB WORK CORRECTION LAB WORK SOB CORRECTION LABWORK CORRECTION LAB WORK CORRECTION LABWORK Chief Complaint CORRECTION LABWORK CORRECTION LAB WORK CORRECTION LAB WORK CORRECTION LAB WORK SOB CORRECTION LABWORK CORRECTION LAB WORK CORRECTION LAB WORK CORRECTION LABWORK Chief Complaint CORRECTION LAB WOR K SOB CORRECTION LABWORK CORRECTION LAB WORK CORRECTION LAB WORK CORRECTION LABWORK CORRECTION LAB WORK CORRECTION LABWORK Chief Complaint CORRECTION LAB WOR K SOB CORRECTION LABWORK CORRECTION LAB WORK CORRECTION LAB WORK CORRECTION LABWORK CORRECTION LAB WORK CORRECTION LABWORK RIGHT UPPER EXTREMITY WEAKNESS, SLURRED SPEECH Reason for Visit Acute CVA (cerebrova scular accident) History of atrial fibrillation History of hypertension History of Parkinson's disease Chief Complaint CORRECTION LAB WOR K SOB CORRECTION LABWORK CORRECTION LAB WORK CORRECTION LAB WORK CORRECTION LABWORK CORRECTION LAB WORK CORRECTION LABWORK RIGHT UPPER EXTREMITY WEAKNESS, SLURRED SPEECH RIGHT UPPER EXTREMITY WEAKNESS, SLURRED SPEECH Reason for Visit Acute CVA (cerebrova scular accident) History of atrial fibrillation History of hypertension History of Parkinson's disease Right arm weakness Chief Complaint CORRECTION LABWORK CORRECTION LAB WORK CORRECTION LABWORK RIGHT UPPER EXTREMITY WEAKNESS, SLURRED SPEECH RIGHT UPPER EXTREMITY WEAKNESS, SLURRED SPEECH RIGHT UPPER EXTREMITY WEAKNESS, SLURRED SPEECH CORRECTION LABWORK LABWORK CORRECTION LABWORK Reason for Visit History of atrial fi brillation History of hypertension History of Parkinson's disease Acute CVA (cerebrovascular accident) Right arm weakness Chief Complaint CORRECTION LABWORK RIGHT UPPER EXTREMITY WEAKNESS, SLURRED SPEECH RIGHT UPPER EXTREMITY WEAKNESS, SLURRED SPEECH RIGHT UPPER EXTREMITY WEAKNESS, SLURRED SPEECH CORRECTION LABWORK LABWORK CORRECTION LABWORK LABWORK LABWORK Reason for Visit History of atrial fi brillation History of hypertension History of Parkinson's disease Acute CVA (cerebrovascular accident) Right arm weakness Chief Complaint CORRECTION LABWORK RIGHT UPPER EXTREMITY WEAKNESS, SLURRED SPEECH RIGHT UPPER EXTREMITY WEAKNESS, SLURRED SPEECH RIGHT UPPER EXTREMITY WEAKNESS, SLURRED SPEECH CORRECTION LABWORK LABWORK CORRECTION LABWORK LABWORK LABWORK CORRECTION LAB WORK LABWORK Reason for Visit History of atrial fi brillation History of hypertension History of Parkinson's disease Acute CVA (cerebrovascular accident) Right arm weakness Chief Complaint CORRECTION LABWORK RIGHT UPPER EXTREMITY WEAKNESS, SLURRED SPEECH RIGHT UPPER EXTREMITY WEAKNESS, SLURRED SPEECH RIGHT UPPER EXTREMITY WEAKNESS, SLURRED SPEECH CORRECTION LABWORK LABWORK CORRECTION LABWORK LABWORK LABWORK CORRECTION LABWORK CORRECTION LAB WORK LABWORK Reason for Visit History of atrial fi brillation History of hypertension History of Parkinson's disease Acute CVA (cerebrovascular accident) Right arm weakness Chief Complaint RIGHT UPPER EXTREMIT Y WEAKNESS, SLURRED SPEECH RIGHT UPPER EXTREMITY WEAKNESS, SLURRED SPEECH RIGHT UPPER EXTREMITY WEAKNESS, SLURRED SPEECH CORRECTION LABWORK LABWORK CORRECTION LABWORK LABWORK LABWORK CORRECTION LABWORK CORRECTION LAB WORK LABWORK LABWORK Reason for Visit History of atrial fi brillation History of hypertension History of Parkinson's disease Acute CVA (cerebrovascular accident) Right arm weakness Chief Complaint RIGHT UPPER EXTREMIT Y WEAKNESS, SLURRED SPEECH RIGHT UPPER EXTREMITY WEAKNESS, SLURRED SPEECH RIGHT UPPER EXTREMITY WEAKNESS, SLURRED SPEECH CORRECTION LABWORK LABWORK CORRECTION LABWORK LABWORK LABWORK CORRECTION LABWORK CORRECTION LAB WORK CORRECTION LAB WORK LABWORK LABWORK Reason for Visit History of atrial fi brillation History of hypertension History of Parkinson's disease Acute CVA (cerebrovascular accident) Right arm weakness Chief Complaint CORRECTION LABWORK LABWORK LABWORK CORRECTION LABWORK CORRECTION LAB WORK CORRECTION LAB WORK LABWORK LABWORK LABWORK CORRECTION LAB WORK Chief Complaint CORRECTION LABWORK CORRECTION LAB WORK CORRECTION LAB WORK LABWORK LABWORK LABWORK CORRECTION LAB WORK CORRECTION LAB WORK CORRECTION LAB WORK Chief Complaint LABWORK LABWORK CORRECTION LAB WORK CORRECTION LAB WORK CORRECTION LAB WORK CORRECTION LABWORK TROUBLE WALKING, UNSTEADY n/v Reason for Visit Abnormality of gait and mobility History of stroke Parkinsonism Polyneuropathy Dementia Chief Complaint CORRECTION LAB WOR K CORRECTION LAB WORK CORRECTION LAB WORK CORRECTION LABWORK TROUBLE WALKING, UNSTEADY n/v CORRECTION LABWORK Reason for Visit Abnormality of gait and mobility History of stroke Parkinsonism Polyneuropathy Dementia Chief Complaint CORRECTION LAB WOR K CORRECTION LAB WORK CORRECTION LAB WORK CORRECTION LABWORK TROUBLE WALKING, UNSTEADY n/v CORRECTION LABWORK CORRECTION LAB WORK CORRECTION LAB WORK Reason for Visit Abnormality of gait and mobility History of stroke Parkinsonism Polyneuropathy Dementia Chief Complaint CORRECTION LABWORK TROUBLE WALKING, UNSTEADY n/v CORRECTION LABWORK CORRECTION LAB WORK CORRECTION LAB WORK CORRECTION LABWORK CORRECTION LABWORK Reason for Visit Abnormality of gait and mobility History of stroke Parkinsonism Polyneuropathy Dementia Chief Complaint n/v CORRECTION LABWORK CORRECTION LAB WORK CORRECTION LAB WORK CORRECTION LABWORK CORRECTION LABWORK CORRECTION LAB WORK Chief Complaint n/v CORRECTION LABWORK CORRECTION LAB WORK CORRECTION LAB WORK CORRECTION LABWORK CORRECTION LABWORK CORRECTION LAB WORK CORRECTION LABWORK Chief Complaint n/v CORRECTION LABWORK CORRECTION LAB WORK CORRECTION LAB WORK CORRECTION LABWORK CORRECTION LABWORK CORRECTION LAB WORK CORRECTION LABWORK CORRECTION LAB WORK Chief Complaint CORRECTION LABWORK CORRECTION LABWORK CORRECTION LAB WORK CORRECTION LABWORK CORRECTION LAB WORK CORRECTION LAB WORK CORRECTION LAB WORK Chief Complaint CORRECTION LABWORK CORRECTION LAB WORK CORRECTION LABWORK CORRECTION LAB WORK CORRECTION LAB WORK CORRECTION LAB WORK LABWORK Chief Complaint CORRECTION LABWORK CORRECTION LAB WORK CORRECTION LABWORK CORRECTION LAB WORK CORRECTION LAB WORK CORRECTION LAB WORK LABWORK CORRECTION LAB WORK Chief Complaint CORRECTION LAB WOR K CORRECTION LABWORK CORRECTION LAB WORK CORRECTION LAB WORK CORRECTION LAB WORK LABWORK CORRECTION LAB WORK CORRECTION LAB WORK Chief Complaint CORRECTION LAB WOR K CORRECTION LABWORK CORRECTION LAB WORK CORRECTION LAB WORK CORRECTION LAB WORK LABWORK CORRECTION LAB WORK CORRECTION LAB WORK LABWORK Chief Complaint CORRECTION LABWORK CORRECTION LAB WORK CORRECTION LAB WORK CORRECTION LAB WORK LABWORK CORRECTION LAB WORK CORRECTION LAB WORK LABWORK CORRECTION LAB WORK Chief Complaint Admit Date CORRECTION LAB WORK April 04, 2024 5:00am LABWORK June 16, 2024 1 1:03am LABWORK June 17, 2024 5 :00am CORRECTION LAB WORK July 01, 2024 5:00am CORRECTION LAB WORK July 02, 2024 5:00am LABWORK July 03, 2024 5 :00am LABWORK July 05, 2024 5 :00am CORRECTION LAB WORK July 08 5:00am LABWORK July 12, 2024 5:00am CORRECTION LAB WORK July 17 5:00am LABWORK 2024 5:00am CORRECTION LAB WORK July 25 4:00am Chief Complaint Admit Date LABWORK June 16, 2024 1 1:03am LABWORK June 17, 2024 5 :00am CORRECTION LAB WORK July 01, 2024 5:00am CORRECTION LAB WORK July 02, 2024 5:00am LABWORK July 03, 2024 5 :00am LABWORK July 04, 2024 5 :00am LABWORK July 05, 2024 5 :00am CORRECTION LAB WORK July 08 5:00am CORRECTION LAB WORK July 09 5:00am LABWORK July 12, 2024 5:00am CORRECTION LAB WORK July 15 5:00am LABWORK July 16, 2024 5:00am CORRECTION LAB WORK July 17 5:00am LABWORK July 18, 2024 5:00am LABWORK 2024 5:00am CORRECTION LAB WORK July 24 5:00am CORRECTION LAB WORK July 25 4:00am LABWORK July 29, 2024 5:00 am CORRECTION LAB WORK August 12, 2024 4 :00am Chief Complaint Admit Date LABWORK June 16, 2024 1 1:03am LABWORK June 17, 2024 5 :00am CORRECTION LAB WORK July 01, 2024 5:00am CORRECTION LAB WORK July 02, 2024 5:00am LABWORK July 03, 2024 5 :00am LABWORK July 04, 2024 5 :00am LABWORK July 05, 2024 5 :00am CORRECTION LAB WORK July 08 5:00am CORRECTION LAB WORK July 09 5:00am LABWORK July 12, 2024 5:00am CORRECTION LAB WORK July 15 5:00am LABWORK July 16, 2024 5:00am CORRECTION LAB WORK July 17 5:00am LABWORK July 18, 2024 5:00am LABWORK 2024 5:00am CORRECTION LAB WORK July 24 5:00am CORRECTION LAB WORK July 25 4:00am LABWORK July 29, 2024 5:00 am CORRECTION LAB WORK August 12, 2024 4 :00am CORRECTION LAB WORK September 09, 2024 4 :00am Chief Complaint Admit Date LABWORK June 16, 2024 1 1:03am LABWORK June 17, 2024 5 :00am CORRECTION LAB WORK July 01, 2024 5:00am CORRECTION LAB WORK July 02, 2024 5:00am LABWORK July 03, 2024 5 :00am LABWORK July 04, 2024 5 :00am LABWORK July 05, 2024 5 :00am CORRECTION LAB WORK July 08 5:00am CORRECTION LAB WORK July 09 5:00am LABWORK July 12, 2024 5:00am CORRECTION LAB WORK July 15 5:00am LABWORK July 16, 2024 5:00am CORRECTION LAB WORK July 17 5:00am LABWORK July 18, 2024 5:00am LABWORK 2024 5:00am CORRECTION LAB WORK July 24 5:00am CORRECTION LAB WORK July 25 4:00am LABWORK July 29, 2024 5:00 am CORRECTION LAB WORK August 12, 2024 4 :00am CORRECTION LAB WORK September 09, 2024 4 :00am fall, head injury October 09, 2024 7:00p m Chief Complaint Admit Date CORRECTION LAB WORK July 01, 2024 5:00am CORRECTION LAB WORK July 02, 2024 5:00am LABWORK July 03, 2024 5 :00am LABWORK July 04, 2024 5 :00am LABWORK July 05, 2024 5 :00am CORRECTION LAB WORK July 08 5:00am CORRECTION LAB WORK July 09 5:00am LABWORK July 12, 2024 5:00am CORRECTION LAB WORK July 15 5:00am LABWORK July 16, 2024 5:00am CORRECTION LAB WORK July 17 5:00am LABWORK July 18, 2024 5:00am LABWORK 2024 5:00am CORRECTION LAB WORK July 24 5:00am CORRECTION LAB WORK July 25 4:00am LABWORK July 29, 2024 5:00 am CORRECTION LAB WORK August 12, 2024 4 :00am CORRECTION LAB WORK September 09, 2024 4 :00am fall, head injury October 09, 2024 7:00p m CORRECTION LAB WORK October 22, 2024 4:0 0am Additional Source Comments INFORMATION SOURCE (unrecogn ized section and content) DATE CREATED AUTHOR 11/16/2017 [facility] DATE CREATED AUTHOR AUTHOR'S ORGANIZ ATION 04/23/2019 [facility] ([place]) DATE CREATED AUTHOR AUTHOR'S ORGANIZ ATION 12/22/2024 [facility] DATE CREATED AUTHOR AUTHOR'S ORGANIZ ATION [...] Joao Simon MD Primary Care Provider Active Jaoo THOMAS Attending Provider, Referring Provide r Active [...] Inactive Member Role Status Dates Dr. 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 Start Date End Date [facility] [address] [place], [place] [id number] Specialty Data Integrity Consultant Physical Therapy 07/08/13 Fredo Kathleen MD [address] [place], [place] [id number] Specialty Data Integrity Consultant Cardiology 07/08/13 Power Avina MD [address] [place], [place] [id number] Specialty Data Integrity Consultant Radiation Oncology 07/08/13 Source Comments (unrecognize d section and content) In the event this informatio n is protected by the Federal Confidentiality of Alcohol and Drug Abuse Patient Records regulations: The Federal rules restrict any use of the information to criminally investigate or prosecute any alcohol or drug abuse patient.[facility] Reason for Visit (unrecogniz ed section and [...] BE BASED ON THE PRIMARY CLINICAL RECORDS. [facility]. provides no warranty or guarantee of the accuracy or completeness of information in this document.
[2025-02-07 07:10] LABS: Hematocrit 39.2 % (37-47); Hemoglobin 13.1 g/dL (12.0-15.0); Immature Granulocytes Count 0.000 X10^3/uL (0.0-0.0); Mean Corp Hgb Conc 33.4 g/dL (32-36); Mean Corpuscular Volume 92.9 fL (81-99); Mean Platelet Vol. 10.4 fl (6.2-12.0); NRBC Flagged by Analyzer 0 % (0-5); Platelet Count 193 K/mm3 (150-450); RBC Distribution Width CV 12.4 % (11.6-14.6); RBC Distribution Width SD 42.1 fl (35.1-43.9); Red Blood Count 4.22 M/mm3 (4.2-5.4); White Blood Count 5.7 K/mm3 (4.4-11.0)
[2025-02-07 07:11] LABS: Ammonia 21.2 umol/L (11-51)
[2025-02-07 07:20] LABS: AST(SGOT) 20 U/L (<=31); Alanine Aminotransfer ALT/SGPT 8 U/L (<=34); Albumin, Serum 3.9 g/dL (3.4-4.8); Alkaline Phosphatase 52 U/L (35-104); Anion Gap 10 (5-15); BUN 11 mg/dL (4-19); BUN/Creat Ratio 18.7 RATIO (10-20); Calcium,Total 9.0 mg/dL (7.6-11.0); Carbon Dioxide 26.8 mmol/L (21.0-32.0); Chloride 104 mmol/L (98-108); Globulin 2.8 g/dL (2.2-4.2); Glucose 106 mg/dL (70-99); Potassium 4.1 mmol/L (3.3-5.1); T4 Total, Thyroxin 5.9 ug/dL (4.8-13.9)
== END ==
PROVIDERS: PCP Family Medicine; Visit Provider Family Medicine
DX: I10 Essential (primary) hypertension (principal); E78.1 Pure hyperglyceridemia; E78.5 Hyperlipidemia, unspecified; E87.6 Hypokalemia; F41.1 Generalized anxiety disorder; R46.89 Other symptoms and signs involving appearance and behavior; Z79.899 Other long term (current) drug therapy
CPT/HCPCS: 36415; 80053; 82140; 83036; 84436; 84443; 85025

== ENCOUNTER → 2025-02-24 | Outpatient (REF) | payer MEDICARE, SELFPAY ==
--- OUTSIDE RECORDS SUMMARY | 2024-12-17 10:50 | XMS RPT_ITS ---
Author Name Auto Generated Organization [facility] Care Team Providers Care Cloth Examiner Hand Name Role Phone AMY MONZON Referring Unavailable DIANA CMKEON Attending Unavailable PROBLEMS DATE TYPE CONDITION / CODE ATTENDING STATUS ARMIDA RCE 12/17/2024 Active New Patient / UNK(Unknown) DIANA MCKEON Active [facility] PROCEDURES No Procedure Records Found RESULTS PROGRESS Observed: 12/20/2024 5:46 PM Status: COMPLETED Source: [facility] HNO ID: [id number] Author: DIANA MCKEON MD Service: ? Author Type: Physician Type: Progress Notes Filed: 12/20/2024 17:59 Note Text: [facility] - NEW PATIENT EVALUATION Recording using C2FO software for draft documentation of the visit was discussed with the patient/authorized field support representative; all questions welcomed and answered. Patient/authorized field support representative agreed to proceed Referring Provider: Amy Monzon [address] [facility] [id number] Dear Amy Monzon: Thank you for referring Ms. Richardson to our clinic today. As you know she is a 89 year old right-handed female who is seen in consultation for evaluation of since . Subjective HISTORY OF PRESENT ILLNESS: Colette Richardson is an 89-year-old female with a history of Parkinson's disease. She is accompanied by her daughter, who provides additional history. Colette was diagnosed with Parkinson's disease three years ago by a neurologist in [place]. At the time of diagnosis, she was experiencing frequent falls and confusion, which were attributed to balance issues and electrolyte imbalances. Her daughter reports that Colette has since developed more pronounced Parkinsonian symptoms, including a pill-rolling tremor in her right hand and a tendency to rub her leg or other surfaces with her hands. She sometimes uses both hands to steady a coffee cup due to a fear of spilling, though she does not endorse significant tremors when eating. Her speech has reportedly slowed over the years, and she has difficulty finding words. She also experiences significant memory impairment, which has progressed over the past few years. Her daughter notes that Colette has become more irritable and impatient, particularly in social settings at her assisted living facility. She has been taking quetiapine, which was started for agitation, but she does not feel it has been effective. Colette reports difficulty with balance and mobility, requiring a walker for ambulation. She has fallen a couple of times per year, often without clear explanation. She experiences weakness in her legs but does not endorse significant arm weakness. She has a history of carpal tunnel surgery on one hand and reports that her hands feel like sandpaper, though they appear smooth to touch. She also reports low back pain, which she attributes to her sleeping position. She has a history of macular degeneration and dry eyes, for which she uses lubricating eye drops three times daily. She reports difficulty reading and concentrating, which she attributes more to cognitive issues than to vision problems. She has a diminished sense of smell and does not endorse acting out dreams or experiencing hallucinations. She is currently taking carbidopa-levodopa three times daily but does not recall when she started the medication or whether it has been effective. She also takes trazodone for sleep and has been on Xanax for most of her life. She is on Coumadin for atrial fibrillation and has a history of at least one stroke and multiple TIAs. She has had several falls resulting in head injuries and has undergone multiple surgeries, including shoulder surgery. She participates in physical therapy and an exercise class called [employer] at her [facility], which she enjoys. She does not endorse significant joint or muscle pain and does not report dizziness or lightheadedness. She has three daughters, two of whom have a history of breast cancer. She does not have a known family history of Parkinson's disease. Past Diagnostic Results: - (06/2020) EMG: Severe carpal tunnel syndrome in the right arm. - (04/13/2019) Brain MRI: Acute infarct in the posterior limb of the left internal capsule, remote right frontal infarct, moderate microvascular changes. Movement Disorders Medications Schedule - as of the start of the visit: Medications Sinemet 25/100 1 1 Sinemet 10/100 1 trazodone seroquel 12.5 mg twice daily Questionnaires In addition, the following areas that may be affected by abnormal involuntary movements were evaluated: Daily activities Difficulties with eating: Yes (slight) Difficulties in dressin (none) Difficulties with hygiene activities: 0 (none) Difficulties with handwriting: Yes (moderate) Difficulties with doing hobbies and other activities: Yes (slight) Difficulties turning in bed: 0 (none) Difficulties getting out of bed, car or chair: Yes (slight) Tremors/Gait/Balance Shaking or tremors: Yes (slight) Walking and balance problems: Yes (moderate) Number of falls in the Last Month: 0 Gait freezin (none) Autonomic/Pain Lightheadeness on standin (none) Urinary problems: 0 (none) Constipation problems: Yes (moderate) Pain and other sensations: 0 (none) Speech/Swallowing Speech problems: Yes (moderate) Drooling: Yes (moderate) dry mouth but also wet in the corners Chewing and swallowing problems: 0 (none) Sleep/Fatigue Sleep problems: Yes (slight) Daytime sleepiness: Yes (mild) Fatigue: Yes (mild) Mood/Behavior Depression: PHQ-9 Score: 8 usually representing mild (5-9) depression. Anxiety: MAYLIN-7 Total Score: 6 usually representing mild (5-9) anxiety. Finally, the following table shows the patient's overall global physical and mental health using the PROMIS scale: PROMIS-10 Flowsheet Row Office Visit from 12/17/2024 in Neurology Office Visit from 12/23/2015 in [facility] Global Physical Health T Score 42.3 42.3 Global Mental Health T Score 36.3 43.5 0-10 Standard Pain Scale 4 3 *PROMIS-10 scoring scale: mean = 50, over 50 is above average, under 50 is below average In addition, the following non-motor symptoms and palliative concerns were evaluated: Sleep/Fatigue: REM sleep behavior disorder: No Restless Legs Syndrome: Leg swelling: Impaired sense of smell: No Cognition: Memory and Thinkin - Severe. Cognitive dysfunction precludes my ability to carry out normal activities and social interactions. Hallucinations and Psychosis: 0 - Normal. No hallucinations or psychotic behavior. Depressed Mood: Anxious Mood: Apathy: Impulse Control: MoCA Cognitive assessment: Palliative Concerns: Caregiver burden: Spiritual concerns: Advanced directives on file: Palliative services: Therapy and Exercise: Last PT Date: Last OT Date: Last ST Date: Exercises Regularly: ALLERGIES Allergen Reactions Lovastatin Myalgia Leg pains Statins [Statins-Hm* Other: See Comments elevated liver enzymes. Aricept [Donepezil] Intolerance Side effects Codeine nausea Namenda [Memantine] Intolerance Penicillins felt throat was swollen Vicodin [Hydrocodon* Itching Zetia [Ezetimibe] Intolerance elevated liver enzymes Current Outpatient Medications Medication Sig acetaminophen (TYLENOL) 325 mg tablet Take 650 mg by mouth every 6 hours as needed for pain. ALBUTEROL INHALATION Inhale as instructed every 6 hours as needed. ALPRAZolam (XANAX) 0.5 mg tablet Take 0.25 mg by mouth three times a day. PRN carbidopa-levodopa (SINEMET 10-100) 10-100 mg per tablet Take 1 tablet by mouth once daily. 1 tab at noon carbidopa-levodopa (SINEMET 25-100) 25-100 mg per tablet Take 1 tablet by mouth two times a day. docusate sodium (COLACE CLEAR) 50 mg capsule Take 50 mg by mouth as needed for constipation. hydrOXYchloroQUINE (PLAQUENIL) 200 mg tablet Take 200 mg by mouth two times a day. losartan (COZAAR) 100 mg tablet potassium chloride ER (KLOR-CON) 20 mEq tablet Polyethylene Glycol 3350 powd once daily. sodium chloride (SALINE NASAL) 0.65 % nasal spray Use 1 spray in the nose as needed for cold/allergy symptoms. warfarin (COUMADIN) 2 mg tablet Take 2 mg by mouth daily as directed. Taking with the 5mg QUEtiapine (SEROQUEL) 25 mg tablet Take 25 mg by mouth two times a day. 12.5 mg BID senna-docusate (SENNA-TIME S) 8.6-50 mg per tablet Take 1 tablet by mouth once daily. warfarin (COUMADIN) 5 mg tablet Take 1 tablet by mouth once daily. venlafaxine (EFFEXOR) 75 mg tablet Take two (2) tablets in the AM and one (1) tablet in the PM. metoprolol tartrate, short acting, (LOPRESSOR) 50 mg tablet Take 2 tablets by mouth twice daily. (Patient taking differently: Take 100 mg by mouth two times a day. 1 tab BID) traZODone (DESYREL) 100 mg tablet Take 1 tablet by mouth daily at bedtime. ondansetron orally disintegrating (ZOFRAN ODT) 4 mg disintegrating tablet Take 1 tablet by mouth every 8 hours as needed for Nausea/Vomiting. fluticasone (FLOVENT HFA) 110 mcg/Actuation INHALATION inhaler Inhale 2 Puffs as instructed twice daily. Use with spacer. Rinse mouth out after use. No current facility-administered medications for this visit. 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), Coronary atherosclerosis of unspecified type of vessel, [place] sal[place] or graft (01/24/2005), Depressive disorder, not elsewhere classified (10/15/2008), Diverticulosis of colon (without mention of hemorrhage), DVT (deep venous thrombosis) ([facility]) (03/04/2009), Dysmetabolic syndrome X (07/30/2008), 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), Female stress incontinence (01/24/2005), Intestinal adhesions (07/09/2011), Lumbago (06/17/09), Malignant neoplasm of breast (female), unspecified site (01/24/2005), Malignant neoplasm of breast (female), unspecified site (2012), Microcalcifications of the breast, Nonspecific abnormal results of liver function study (01/24/2005), Other and unspecified hyperlipidemia (01/24/2005), Other pulmonary embolism and infarction (03/10/2007), S/P epidural steroid injection (Dec 2015), Snoring, Type II or unspecified type diabetes mellitus without mention of complication, not stated as uncontrolled (10/15/2008), Unspecified essential hypertension (01/24/2005), and Unspecified venous (peripheral) insufficiency (01/24/2005). She has no past medical history of Chronic renal insufficiency, Congestive heart failure ([facility]), Epilepsy ([facility]), Hypothyroidism, correction (current) use of systemic steroids, Obstructive sleep apnea, Stroke ([facility]), or Substance abuse ([facility]). has a past surgical history that includes appendectomy (2002); vaginal hysterectomy uterus 250 gm/< (1968); rpr 1st ingun hrna age 7 yrs/> reducible (1959 and 1967); past surgical history of (1997); mastectomy (1990); rpr umbilical hernia < 5 yrs reducible (2003); arthroscopy knee diagnostic w/wo synovial bx spx (1994); stent placement (2003); arthroscopy knee diagnostic w/wo synovial bx spx (06-21-05); colonoscopy flx dx w/collj spec when pfrmd (05/30/2004); open repair of rotator cuff acute; xcapsl ctrc rmvl insj io lens prosth w/o ecp; past surgical history of; colonoscopy flx dx w/collj spec when pfrmd (09/15/09); egd transoral biopsy single/multiple (03/28/11); mastectomy, simple, complete (11/26/1990); laps surg cholecystectomy w/cholangiography (07/08/11); bx breast perc vacuum/rotn (06/21/12); mastectomy, partial (07-11-12); bx/exc lymph node open deep axillary node (07-11-12); cystoscopy (01/01/13); dilation AND curettage dxAND/ther nonobstetric; coronary artery byp w/vein AND artery graft 2 vein (); colonoscopy flx dx w/collj spec when pfrmd (02/19/15); and left heart cath,percutaneous (10/12/2015). Social History Tobacco Use Smoking status: Former Current packs/day: 0.00 Average packs/day: 1 pack/day for 25.0 years (25.0 ttl pk-yrs) Types: Cigarettes Start date: 05/29/1962 Quit date: 05/29/1987 Years since quittin.5 Smokeless tobacco: Never Substance Use Topics Alcohol use: Yes Comment: 1 glass of wine per month or less Drug use: No Family History: family history includes Breast Cancer in her daughter and daughter; Colon Cancer in her mother; Diabetes in her maternal grandmother; Heart in her brother and daughter; Ischemic Heart Disease in her maternal grandfather; Lipids in her mother; Stroke in her maternal grandmother; UNKNOWN in her father. Objective Vital Signs: Wt 64.8 kg (142 lb 13.7 oz) SpO2 96% BMI 27.90 kg/m? Orthostatic Vitals: Sitting: BP 154/77 Pulse 60 Standing: BP 144/78 Pulse 59 Weight: 64.8 kg (142 lb 13.7 oz) No LMP recorded. Patient has had a hysterectomy. Body mass index is 27.9 kg/m?. Neurological Exam Mental Status Awake and alert. Language is fluent with no aphasia. Cranial Nerves CN III, IV, : Extraocular movements intact bilaterally. CN V: Facial sensation is normal. CN VII: Full and symmetric facial movement. CN XI: Shoulder shrug strength is normal. CN XII: Tongue midline without atrophy or fasciculations. Motor Right Left Shoulder abduction 5 5 Elbow flexion 5 5 Wrist extension 5 5 Hip flexion 5 5 Dorsiflexion 5 5 Sensory Vibration sense reduced at ankles. Coordination Right: Uceqrq-on-riqc normal. Rapid alternating movement normal.Left: Wczouq-kw-yzfh normal. Rapid alternating movement normal. Movement Disorders Scales Performed: MDS-UPDRS Motor subscale condition of exam Medication Off/On/Naiive ON Time of UPDRS 1143 Time of Last Medication Last Medication Taken DBS Right DBS Left MDS-UPDRS Motor subscale scores Speech 1-Slight. Loss of modulation, diction or volume, but still all words easy to understand. Facial Expression 1-Slight. Minimal masked facies manifested only by decreased frequency of blinking. Rigidity Neck 2-Mild. Rigidity detected without the activation maneuver, but full range of motion is easily achieved. Rigidity Right Upper Extremity 0-Normal. No rigidity. Rigidity Left Upper Extremity 0-Normal. No rigidity. Rigidity Right Lower Extremity 0-Normal. No rigidity. Rigidity Left Lower Extremity 0-Normal. No rigidity. Finger Taps Right 1-Slight. a) the regular rhythm is broken with one or two interruptions or hesitations of the tapping movement, b) slight slowing, c) the amplitude decrements near the end of the 10 taps. Finger Taps Left 1-Slight. a) the regular rhythm is broken with one or two interruptions or hesitations of the tapping movement, b) slight slowing, c) the amplitude decrements near the end of the 10 taps. Hand Movements Right 0-Normal. No problem. Hand Movements Left 0-Normal. No problem. Arm Movements Right 0-Normal. No problems. Arm Movements Left 0-Normal. No problems. Toe Taps Right 2-Mild. a) 3 to 5 interruptions during the tapping movements, b) mild slowing, c) the amplitude decrements midway in the task. Toe Taps Left 1-Slight. a) the regular rhythm is broken with one or two interruptions or hesitations of the tapping movement, b) slight slowing, c) the amplitude decrements near the end of the ten taps. Leg Agility Right 1-Slight. a) the regular rhythm is broken with one or two interruptions or hesitations of the movement, b) slight slowing, c) the amplitude decrements near the end of the task. Leg Agility Left 2-Mild. a) 3 to 5 interruptions during the movements, b) mild slowness, c) the amplitude decrements midway in the task. Arise From Chair 2-Mild. Pushes self up from arms of chair without difficulty. Gait 3-Moderate. Requires an assistance device for safe walking (walking stick, walker) but not a person. Gait Freezing 0-Normal. No freezing. Posture Stability 0-Normal. No problems: recovers with one or two steps. (deferred) Posture 2-Mild. Definite flexion, scoliosis or leaning to one side, but patient can correct posture to normal posture when asked to do so. Body Bradykinesia 2-Mild. Mild global slowness and poverty of spontaneous movements. Postural Tremor Hand Right 0-Normal. No tremor. Postural Tremor Hand Left 0-Normal. No tremor. Kinetic Tremor Right 1-Slight. Tremor is present but less than 1cm in amplitude. Kinetic Tremor Left 1-Slight. Tremor is present but less than 1cm in amplitude. Rest Tremor Amplitude Right Upper Extremity 0-Normal. No tremor. Rest Tremor Amplitude Left Upper Extremity 0-Normal. No tremor. Rest Tremor Amplitude Right Lower Extremity 0-Normal. No tremor. Rest Tremor Amplitude Left Lower Extremity 0-Normal. No tremor. Rest Tremor Amplitude Lip/Jaw 0-Normal. No tremor. Rest Tremor Constancy 0-Normal. No tremor. MDS-UPDRS Motor subscale totals Left Total 5 Right Total 5 Midline Total 13 Tremor Total / 10 2 PIGD Total / 3 3 Overall Total 23 Change Better/Worse % Change Compared to Last Filed Total Assessment and Plan: Assessment Ms. Richardson is a right-handed 89 year old year old female with Parkinsonism and multfactorial gait disorder The following are the current problems noted and addressed during this visit: Parkinsonism, unspecified parkinsonism type (hcc) (primary encounter diagnosis) Multifactorial gait disorder Plan 12/17/2024 Visit: 1. Parkinsonism, unspecified Parkinsonism type (HCC) (G20.C) 2. 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 - Reviewed Neurocare notes from 2020: EMG (06/2020) showed severe right carpal tunnel; MRI (04/13/2019) showed acute infarct in posterior limb of left internal capsule, remote right frontal infarct, and moderate microvascular changes. - Exam: shuffling gait, impaired balance, decreased vibratory sensation in ankles, mild tremor on hgffan-sd-biwo testing, micrographia, and slowed speech. More convincing parkinsonism could be masked by Sinemet. - Differential includes idiopathic Parkinson's disease vs. more likely vascular parkinsonism; discussed FERNIE scan and skin biopsy as diagnostic options, but not pursued due to limited impact on management. - We discussed tapering off Sinemet and reasses for change but she will continue it. Will switch all doses to 25/100. Discussed that Sinemet dose will not be increased due to risk of side effects and limited benefit for balance; patient and family understand and agree with current management. - Encourage ongoing physical therapy and participation in seated exercise classes (e.g., [employer]); advised against walking backwards and emphasized use of walker for safety. - Recommend labs to evaluate for neuropathy: B12, folate, SPEP if not already done - Follow-up as needed for changes in symptoms or concerns. Patient's perception of importance for healthcare provider to let them know of research trials for which they may be eligible? Somewhat important Updated Movement Disorders Medication Schedule: Medications Sinemet 25/100 1 1 1 trazodone seroquel 12.5 mg twice daily Level of service : 54825 (45-59 min). Time spent 56 min on the day of service, which included preparing to see the patient, [id number] patient care, completing clinical documentation, obtaining and/or reviewing separately obtained history, performing a medically appropriate examination, counseling and educating the patient/family/caregiver, and ordering medications, tests, or procedures. Thank you for allowing me to be part of the clinical care of this patient! I look forward to continued participation in the patient?s care with you. Please do not hesitate to call with any questions. Sincerely, Diana Mckeon MD CNOV Observed: 12/17/2024 11:00 AM Status: COMPLETED Source: [facility] Office Visit (NRMDN) COLETTE RICHARDSON ([id number]) 1935 F Date Time Provider Department 12/17/24 11:00 AM DIANA MCKEON AMANDA During your visit today, we recorded the following information about you: Weight 64.8 kg Diana Mckeon MD 12/20/2024 5:59 PM Signed [facility] - NEW PATIENT EVALUATION Recording using C2FO software for draft documentation of the visit was discussed with the patient/authorized field support representative; all questions welcomed and answered. Patient/authorized field support representative agreed to proceed Referring Provider: Amy Monzon [address] [place] [id number] Dear Amy Monzon: Thank you for referring Ms. Richardson to our clinic today. As you know she is a 89 year old right-handed female who is seen in consultation for evaluation of since . Subjective HISTORY OF PRESENT ILLNESS: Colette Richardson is an 89-year-old female with a history of Parkinson's disease. She is accompanied by her daughter, who provides additional history. Colette was diagnosed with Parkinson's disease three years ago by a neurologist in [place]. At the time of diagnosis, she was experiencing frequent falls and confusion, which were attributed to balance issues and electrolyte imbalances. Her daughter reports that Colette has since developed more pronounced Parkinsonian symptoms, including a pill-rolling tremor in her right hand and a tendency to rub her leg or other surfaces with her hands. She sometimes uses both hands to steady a coffee cup due to a fear of spilling, though she does not endorse significant tremors when eating. Her speech has reportedly slowed over the years, and she has difficulty finding words. She also experiences significant memory impairment, which has progressed over the past few years. Her daughter notes that Colette has become more irritable and impatient, particularly in social settings at her assisted living facility. She has been taking quetiapine, which was started for agitation, but she does not feel it has been effective. Colette reports difficulty with balance and mobility, requiring a walker for ambulation. She has fallen a couple of times per year, often without clear explanation. She experiences weakness in her legs but does not endorse significant arm weakness. She has a history of carpal tunnel surgery on one hand and reports that her hands feel like sandpaper, though they appear smooth to touch. She also reports low back pain, which she attributes to her sleeping position. She has a history of macular degeneration and dry eyes, for which she uses lubricating eye drops three times daily. She reports difficulty reading and concentrating, which she attributes more to cognitive issues than to vision problems. She has a diminished sense of smell and does not endorse acting out dreams or experiencing hallucinations. She is currently taking carbidopa-levodopa three times daily but does not recall when she started the medication or whether it has been effective. She also takes trazodone for sleep and has been on Xanax for most of her life. She is on Coumadin for atrial fibrillation and has a history of at least one stroke and multiple TIAs. She has had several falls resulting in head injuries and has undergone multiple surgeries, including shoulder surgery. She participates in physical therapy and an exercise class called [employer] at her [facility], which she enjoys. She does not endorse significant joint or muscle pain and does not report dizziness or lightheadedness. She has three daughters, two of whom have a history of breast cancer. She does not have a known family history of Parkinson's disease. Past Diagnostic Results: - (06/2020) EMG: Severe carpal tunnel syndrome in the right arm. - (04/13/2019) Brain MRI: Acute infarct in the posterior limb of the left internal capsule, remote right frontal infarct, moderate microvascular changes. Movement Disorders Medications Schedule - as of the start of the visit: Medications Sinemet 25/100 1 1 Sinemet 10/100 1 trazodone seroquel 12.5 mg twice daily Questionnaires In addition, the following areas that may be affected by abnormal involuntary movements were evaluated: Daily activities Difficulties with eating: Yes (slight) Difficulties in dressin (none) Difficulties with hygiene activities: 0 (none) Difficulties with handwriting: Yes (moderate) Difficulties with doing hobbies and other activities: Yes (slight) Difficulties turning in bed: 0 (none) Difficulties getting out of bed, car or chair: Yes (slight) Tremors/Gait/Balance Shaking or tremors: Yes (slight) Walking and balance problems: Yes (moderate) Number of falls in the Last Month: 0 Gait freezin (none) Autonomic/Pain Lightheadeness on standin (none) Urinary problems: 0 (none) Constipation problems: Yes (moderate) Pain and other sensations: 0 (none) Speech/Swallowing Speech problems: Yes (moderate) Drooling: Yes (moderate) dry mouth but also wet in the corners Chewing and swallowing problems: 0 (none) Sleep/Fatigue Sleep problems: Yes (slight) Daytime sleepiness: Yes (mild) Fatigue: Yes (mild) Mood/Behavior Depression: PHQ-9 Score: 8 usually representing mild (5-9) depression. Anxiety: MAYLIN-7 Total Score: 6 usually representing mild (5-9) anxiety. Finally, the following table shows the patient's overall global physical and mental health using the PROMIS scale: PROMIS-10 Flowsheet Row Office Visit from 12/17/2024 in Neurology Office Visit from 12/23/2015 in [facility] Global Physical Health T Score 42.3 42.3 Global Mental Health T Score 36.3 43.5 0-10 Standard Pain Scale 4 3 *PROMIS-10 scoring scale: mean = 50, over 50 is above average, under 50 is below average In addition, the following non-motor symptoms and palliative concerns were evaluated: Sleep/Fatigue: REM sleep behavior disorder: No Restless Legs Syndrome: Leg swelling: Impaired sense of smell: No Cognition: Memory and Thinkin - Severe. Cognitive dysfunction precludes my ability to carry out normal activities and social interactions. Hallucinations and Psychosis: 0 - Normal. No hallucinations or psychotic behavior. Depressed Mood: Anxious Mood: Apathy: Impulse Control: MoCA Cognitive assessment: Palliative Concerns: Caregiver burden: Spiritual concerns: Advanced directives on file: Palliative services: Therapy and Exercise: Last PT Date: Last OT Date: Last Date: Exercises Regularly: ALLERGIES Allergen Reactions Lovastatin Myalgia Leg pains Statins [Statins-Hm* Other: See Comments elevated liver enzymes. Aricept [Donepezil] Intolerance Side effects Codeine nausea Namenda [Memantine] Intolerance Penicillins felt throat was swollen Vicodin [Hydrocodon* Itching Zetia [Ezetimibe] Intolerance elevated liver enzymes Current Outpatient Medications Medication Sig acetaminophen (TYLENOL) 325 mg tablet Take 650 mg by mouth every 6 hours as needed for pain. ALBUTEROL INHALATION Inhale as instructed every 6 hours as needed. ALPRAZolam (XANAX) 0.5 mg tablet Take 0.25 mg by mouth three times a day. PRN carbidopa-levodopa (SINEMET 10-100) 10-100 mg per tablet Take 1 tablet by mouth once daily. 1 tab at noon carbidopa-levodopa (SINEMET 25-100) 25-100 mg per tablet Take 1 tablet by mouth two times a day. docusate sodium (COLACE CLEAR) 50 mg capsule Take 50 mg by mouth as needed for constipation. hydrOXYchloroQUINE (PLAQUENIL) 200 mg tablet Take 200 mg by mouth two times a day. losartan (COZAAR) 100 mg tablet potassium chloride ER (KLOR-CON) 20 mEq tablet Polyethylene Glycol 3350 powd once daily. sodium chloride (SALINE NASAL) 0.65 % nasal spray Use 1 spray in the nose as needed for cold/allergy symptoms. warfarin (COUMADIN) 2 mg tablet Take 2 mg by mouth daily as directed. Taking with the 5mg QUEtiapine (SEROQUEL) 25 mg tablet Take 25 mg by mouth two times a day. 12.5 mg BID senna-docusate (SENNA-TIME S) 8.6-50 mg per tablet Take 1 tablet by mouth once daily. warfarin (COUMADIN) 5 mg tablet Take 1 tablet by mouth once daily. venlafaxine (EFFEXOR) 75 mg tablet Take two (2) tablets in the AM and one (1) tablet in the PM. metoprolol tartrate, short acting, (LOPRESSOR) 50 mg tablet Take 2 tablets by mouth twice daily. (Patient taking differently: Take 100 mg by mouth two times a day. 1 tab BID) traZODone (DESYREL) 100 mg tablet Take 1 tablet by mouth daily at bedtime. ondansetron orally disintegrating (ZOFRAN ODT) 4 mg disintegrating tablet Take 1 tablet by mouth every 8 hours as needed for Nausea/Vomiting. fluticasone (FLOVENT HFA) 110 mcg/Actuation INHALATION inhaler Inhale 2 Puffs as instructed twice daily. Use with spacer. Rinse mouth out after use. No current facility-administered medications for this visit. 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), Coronary atherosclerosis of unspecified type of vessel, [place] or graft (01/24/2005), Depressive disorder, not elsewhere classified (10/15/2008), Diverticulosis of colon (without mention of hemorrhage), DVT (deep venous thrombosis) ([facility]) (03/04/2009), Dysmetabolic syndrome X (07/30/2008), 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), Female stress incontinence (01/24/2005), Intestinal adhesions (07/09/2011), Lumbago (06/17/09), Malignant neoplasm of breast (female), unspecified site (01/24/2005), Malignant neoplasm of breast (female), unspecified site (2012), Microcalcifications of the breast, Nonspecific abnormal results of liver function study (01/24/2005), Other and unspecified hyperlipidemia (01/24/2005), Other pulmonary embolism and infarction (03/10/2007), S/P epidural steroid injection (Dec 2015), Snoring, Type II or unspecified type diabetes mellitus without mention of complication, not stated as uncontrolled (10/15/2008), Unspecified essential hypertension (01/24/2005), and Unspecified venous (peripheral) insufficiency (01/24/2005). 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 has a past surgical history that includes appendectomy (2002); vaginal hysterectomy uterus 250 gm/< (1968); rpr 1st ingun hrna age 7 yrs/> reducible (1959 and 1967); past surgical history of (1997); mastectomy (1990); rpr umbilical hernia < 5 yrs reducible (2003); arthroscopy knee diagnostic w/wo synovial bx spx (1994); stent placement (2003); arthroscopy knee diagnostic w/wo synovial bx spx (06-21-05); colonoscopy flx dx w/collj spec when pfrmd (05/30/2004); open repair of rotator cuff acute; xcapsl ctrc rmvl insj io lens prosth w/o ecp; past surgical history of; colonoscopy flx dx w/collj spec when pfrmd (09/15/09); egd transoral biopsy single/multiple (03/28/11); mastectomy, simple, complete (11/26/1990); laps surg cholecystectomy w/cholangiography (07/08/11); bx breast perc vacuum/rotn (06/21/12); mastectomy, partial (07-11-12); bx/exc lymph node open deep axillary node (07-11-12); cystoscopy (01/01/13); dilation AND curettage dxAND/ther nonobstetric; coronary artery byp w/vein AND artery graft 2 vein (); colonoscopy flx dx w/collj spec when pfrmd (02/19/15); and left heart cath,percutaneous (10/12/2015). Social History Tobacco Use Smoking status: Former Current packs/day: 0.00 Average packs/day: 1 pack/day for 25.0 years (25.0 ttl pk-yrs) Types: Cigarettes Start date: 05/29/1962 Quit date: 05/29/1987 Years since quittin.5 Smokeless tobacco: Never Substance Use Topics Alcohol use: Yes Comment: 1 glass of wine per month or less Drug use: No Family History: family history includes Breast Cancer in her daughter and daughter; Colon Cancer in her mother; Diabetes in her maternal grandmother; Heart in her brother and daughter; Ischemic Heart Disease in her maternal grandfather; Lipids in her mother; Stroke in her maternal grandmother; UNKNOWN in her father. Objective Vital Signs: Wt 64.8 kg (142 lb 13.7 oz) SpO2 96% BMI 27.90 kg/m? Orthostatic Vitals: Sitting: BP 154/77 Pulse 60 Standing: BP 144/78 Pulse 59 Weight: 64.8 kg (142 lb 13.7 oz) No LMP recorded. Patient has had a hysterectomy. Body mass index is 27.9 kg/m?. Neurological Exam Mental Status Awake and alert. Language is fluent with no aphasia. Cranial Nerves CN III, IV, : Extraocular movements intact bilaterally. CN V: Facial sensation is normal. CN VII: Full and symmetric facial movement. CN XI: Shoulder shrug strength is normal. CN XII: Tongue midline without atrophy or fasciculations. Motor Right Left Shoulder abduction 5 5 Elbow flexion 5 5 Wrist extension 5 5 Hip flexion 5 5 Dorsiflexion 5 5 Sensory Vibration sense reduced at ankles. Coordination Right: [id number] normal. Rapid alternating movement normal.Left: Sjrmxm-id-zinc normal. Rapid alternating movement normal. Movement Disorders Scales Performed: MDS-UPDRS Motor subscale condition of exam Medication Off/On/Naiive ON Time of UPDRS 1143 Time of Last Medication Last Medication Taken DBS Right DBS Left MDS-UPDRS Motor subscale scores Speech 1-Slight. Loss of modulation, diction or volume, but still all words easy to understand. Facial Expression 1-Slight. Minimal masked facies manifested only by decreased frequency of blinking. Rigidity Neck 2-Mild. Rigidity detected without the activation maneuver, but full range of motion is easily achieved. Rigidity Right Upper Extremity 0-Normal. No rigidity. Rigidity Left Upper Extremity 0-Normal. No rigidity. Rigidity Right Lower Extremity 0-Normal. No rigidity. Rigidity Left Lower Extremity 0-Normal. No rigidity. Finger Taps Right 1-Slight. a) the regular rhythm is broken with one or two interruptions or hesitations of the tapping movement, b) slight slowing, c) the amplitude decrements near the end of the 10 taps. Finger Taps Left 1-Slight. a) the regular rhythm is broken with one or two interruptions or hesitations of the tapping movement, b) slight slowing, c) the amplitude decrements near the end of the 10 taps. Hand Movements Right 0-Normal. No problem. Hand Movements Left 0-Normal. No problem. Arm Movements Right 0-Normal. No problems. Arm Movements Left 0-Normal. No problems. Toe Taps Right 2-Mild. a) 3 to 5 interruptions during the tapping movements, b) mild slowing, c) the amplitude decrements midway in the task. Toe Taps Left 1-Slight. a) the regular rhythm is broken with one or two interruptions or hesitations of the tapping movement, b) slight slowing, c) the amplitude decrements near the end of the ten taps. Leg Agility Right 1-Slight. a) the regular rhythm is broken with one or two interruptions or hesitations of the movement, b) slight slowing, c) the amplitude decrements near the end of the task. Leg Agility Left 2-Mild. a) 3 to 5 interruptions during the movements, b) mild slowness, c) the amplitude decrements midway in the task. Arise From Chair 2-Mild. Pushes self up from arms of chair without difficulty. Gait 3-Moderate. Requires an assistance device for safe walking (walking stick, walker) but not a person. Gait Freezing 0-Normal. No freezing. Posture Stability 0-Normal. No problems: recovers with one or two steps. (deferred) Posture 2-Mild. Definite flexion, scoliosis or leaning to one side, but patient can correct posture to normal posture when asked to do so. Body Bradykinesia 2-Mild. Mild global slowness and poverty of spontaneous movements. Postural Tremor Hand Right 0-Normal. No tremor. Postural Tremor Hand Left 0-Normal. No tremor. Kinetic Tremor Right 1-Slight. Tremor is present but less than 1cm in amplitude. Kinetic Tremor Left 1-Slight. Tremor is present but less than 1cm in amplitude. Rest Tremor Amplitude Right Upper Extremity 0-Normal. No tremor. Rest Tremor Amplitude Left Upper Extremity 0-Normal. No tremor. Rest Tremor Amplitude Right Lower Extremity 0-Normal. No tremor. Rest Tremor Amplitude Left Lower Extremity 0-Normal. No tremor. Rest Tremor Amplitude Lip/Jaw 0-Normal. No tremor. Rest Tremor Constancy 0-Normal. No tremor. MDS-UPDRS Motor subscale totals Left Total 5 Right Total 5 Midline Total 13 Tremor Total / 10 2 PIGD Total / 3 3 Overall Total 23 Change Better/Worse % Change Compared to Last Filed Total Assessment and Plan: Assessment Ms. Richardson is a right-handed 89 year old year old female with Parkinsonism and multfactorial gait disorder The following are the current problems noted and addressed during this visit: Parkinsonism, unspecified parkinsonism type (hcc) (primary encounter diagnosis) Multifactorial gait disorder Plan 12/17/2024 Visit: 1. Parkinsonism, unspecified Parkinsonism type (HCC) (G20.C) 2. 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 - Reviewed Neurocare notes from 2020: EMG (06/2020) showed severe right carpal tunnel; MRI (04/13/2019) showed acute infarct in posterior limb of left internal capsule, remote right frontal infarct, and moderate microvascular changes. - Exam: shuffling gait, impaired balance, decreased vibratory sensation in ankles, mild tremor on svdscx-dc-yccm testing, micrographia, and slowed speech. More convincing parkinsonism could be masked by Sinemet. - Differential includes idiopathic Parkinson's disease vs. more likely vascular parkinsonism; discussed FERNIE scan and skin biopsy as diagnostic options, but not pursued due to limited impact on management. - We discussed tapering off Sinemet and reasses for change but she will continue it. Will switch all doses to 25/100. Discussed that Sinemet dose will not be increased due to risk of side effects and limited benefit for balance; patient and family understand and agree with current management. - Encourage ongoing physical therapy and participation in seated exercise classes (e.g., [employer]); advised against walking backwards and emphasized use of walker for safety. - Recommend labs to evaluate for neuropathy: B12, folate, SPEP if not already done - Follow-up as needed for changes in symptoms or concerns. Patient's perception of importance for healthcare provider to let them know of research trials for which they may be eligible? Somewhat important Updated Movement Disorders Medication Schedule: Medications Sinemet 25/100 1 1 1 trazodone seroquel 12.5 mg twice daily Level of service : [id number] (45-59 min). Time spent 56 min on the day of service, which included preparing to see the patient, [id number] patient care, completing clinical documentation, obtaining and/or reviewing separately obtained history, performing a medically appropriate examination, counseling and educating the patient/family/caregiver, and ordering medications, tests, or procedures. Thank you for allowing me to be part of the clinical care of this patient! I look forward to continued participation in the patient?s care with you. Please do not hesitate to call with any questions. Sincerely, Diana Mckeon MD Referring Provider: AMY MONZON [[id number]] Allergies As of Date: 12/17/2024 Noted Allergy Reaction LOVASTATIN 01/08/2015 17 - Myalgia Comments: Leg pains STATINS ([id number] REDUCTAS*11/22/2005 14 - Other: See Comments Comments: elevated liver enzymes. ARICEPT (DONEPEZIL) 12/17/2024 5 - Intolerance Comments: Side effects CODEINE 01/24/2005 Comments: nausea NAMENDA (MEMANTINE) 12/17/2024 5 - Intolerance PENICILLINS 01/24/2005 Comments: felt throat was swollen VICODIN (HYDROCODONE-ACETAMINOPHE*07/15/2011 9 - Itching ZETIA (EZETIMIBE) 06/28/2006 5 - Intolerance Comments: elevated liver enzymes Date Reviewed: 12/17/2024 Reviewed by: Noelle Hilton MA - Fully Assessed Reason for Visit: New Patient [[id number]] Primary Visit Diagnosis:Parkinsonism, unspecified Parkinsonism type (HCC) [G20.C] Other Visit Diagnosis:Multifactorial gait disorder [R26.89] Prescriptions as of 12/20/2024 - acetaminophen (TYLENOL) 325 mg tablet Take 650 mg by mouth every 6 hours as needed for pain. - ALBUTEROL INHALATION Inhale as instructed every 6 hours as needed. - ALPRAZolam (XANAX) 0.5 mg tablet Take 0.25 mg by mouth three times a day. PRN - carbidopa-levodopa (SINEMET 25-100) 25-100 mg per tablet Take 1 tablet by mouth two times a day. - docusate sodium (COLACE CLEAR) 50 mg capsule Take 50 mg by mouth as needed for constipation. - hydrOXYchloroQUINE (PLAQUENIL) 200 mg tablet Take 200 mg by mouth two times a day. - losartan (COZAAR) 100 mg tablet - potassium chloride ER (KLOR-CON) 20 mEq tablet - Polyethylene Glycol 3350 powd once daily. - sodium chloride (SALINE NASAL) 0.65 % nasal spray Use 1 spray in the nose as needed for cold/allergy symptoms. - warfarin (COUMADIN) 2 mg tablet Take 2 mg by mouth daily as directed. Taking with the 5mg - QUEtiapine (SEROQUEL) 25 mg tablet Take 25 mg by mouth two times a day. 12.5 mg BID - senna-docusate (SENNA-TIME S) 8.6-50 mg per tablet Take 1 tablet by mouth once daily. - warfarin (COUMADIN) 5 mg tablet Take 1 tablet by mouth once daily. - venlafaxine (EFFEXOR) 75 mg tablet Take two (2) tablets in the AM and one (1) tablet in the PM. - metoprolol tartrate, short acting, (LOPRESSOR) 50 mg tablet Take 2 tablets by mouth twice daily. - traZODone (DESYREL) 100 mg tablet Take 1 tablet by mouth daily at bedtime. - ondansetron orally disintegrating (ZOFRAN ODT) 4 mg disintegrating tablet Take 1 tablet by mouth every 8 hours as needed for Nausea/Vomiting. - fluticasone (FLOVENT HFA) 110 mcg/Actuation INHALATION inhaler Inhale 2 Puffs as instructed twice daily. Use with spacer. Rinse mouth out after use. Problem List As Of Date 12/17/2024 Noted Resolved Coronary atherosclerosis [I25.10] 01/24/2005 Essential hypertension [I10] 01/24/2005 Venous (peripheral) insufficiency [I87.2] 01/24/2005 Anxiety state [F41.1] 01/24/2005 FEMALE STRESS INCONTINENCE [N39.3] 01/24/2005 ABNORMAL LIVER FUNCTION STUDY [R94.5] 01/24/2005 01/13/2006 Allergic rhinitis [J30.9] 01/24/2005 INT DERANGEMENT KNEE NOS [M23.90] 04/27/2005 07/12/2005 TEAR MED MENISC KNEE-CURRENT [[id number]] 05/06/2005 07/12/2005 LATERAL EPICONDYLITIS [M77.10] 06/03/2005 06/03/2005 MONONEURITIS ARM NEC [G56.80] 06/03/2005 06/03/2005 AFTERCARE NOS [Z51.89] 06/28/2005 07/12/2005 Primary Localized Osteoarthrosis, Lower Leg [M1*08/05/2005 02/09/2009 PES ANSERINUS TENDINITIS [[id number]] 08/29/2005 01/13/2006 SYMPTOMATIC FEMALE CLIMACTERIC STATE [N95.1] 03/02/2006 PULM EMBOLISM/INFARCT NOS [I26.99] 03/10/2007 02/29/2008 Asthma [J45.909] 05/01/2007 DIABETES MELLITUS TYPE II-UNCOMPL [E11.9] 11/15/2007 09/15/2008 Dermatophytosis of nail [B35.1] 11/15/2007 05/31/2012 Other acquired deformity of toe [M20.5X9] 11/15/2007 11/22/2011 Hallux valgus (acquired) [M20.10] 11/15/2007 05/31/2012 Pain in limb [M79.609] 11/15/2007 05/31/2012 DIABETES TYPE II W NEURO MANIFESTATIONS [E11.49]11/15/2007 09/15/2008 Unspecified deformity of ankle and foot, acquir*11/29/2007 11/22/2011 Dysmetabolic Syndrome X [E88.810] 07/30/2008 02/18/2009 PULMONARY EMBOLISM [I26.99] 09/09/2008 10/15/2008 Depressive disorder [F32.A] 10/15/2008 Diabetes mellitus type II, controlled (HCC) [E1*10/15/2008 Lumbago [M54.50] 06/17/2009 03/07/2017 Enthesopathy of hip region [M76.899] 03/05/2010 05/31/2012 Unspecified arthropathy, pelvic region and thig*03/05/2010 05/31/2012 Irritated//Inflamed seborrheic keratosis [L82.0]04/08/2010 05/31/2012 Other seborrheic keratoses [L82.1] 04/08/2010 05/31/2012 Actinic Damage//Sun-damaged skin [L57.8] 04/08/2010 05/31/2012 Solar lentigines [L81.4] 04/08/2010 05/31/2012 Skin tag [L91.8] 04/08/2010 05/31/2012 Epidermal cyst [L72.0] 04/08/2010 05/31/2012 Milia [L72.0] 04/08/2010 05/31/2012 Sebaceous Hyperplasia [L73.9] 04/08/2010 05/31/2012 Abdominal pain, acute, right upper quadrant [R1*03/08/2011 11/22/2011 Acute gastritis without mention of hemorrhage [*03/28/2011 12/30/2014 Abdominal pain, unspecified site [R10.9] 03/28/2011 11/22/2011 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] 06/24/2011 Biliary colic [K80.50] 07/09/2011 05/31/2012 Intestinal adhesions [K66.0] 07/09/2011 11/22/2011 Abnormal mammogram, unspecified [R92.8] 06/15/2012 12/30/2014 Breast cancer [C50.919] 06/26/2012 12/30/2014 ER+ DC+ carcinoma of breast [C50.919, Z17.0, Z1*07/25/2012 Memory disturbance [R41.3] 09/07/2012 03/07/2017 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] 04/02/2013 Respiratory acidosis [E87.29] 04/03/2013 04/07/2013 KASIA (acute kidney injury) (HCC) [N17.9] 04/04/2013 04/07/2013 Acute blood loss anemia [D62] 04/04/2013 12/26/2013 Atrial fibrillation [I48.91] 04/04/2013 Hypoxemia [R09.02] 04/05/2013 04/07/2013 Atelectasis/Pleural Effusion/FVO [J98.11] 04/06/2013 12/26/2013 Hyperlipidemia with target LDL less than 70 [E7*04/09/2013 History of venous thromboembolism [Z86.718] 04/11/2013 03/07/2017 Anticoagulation management encounter [Z51.81, Z*04/11/2013 Non-proliferative diabetic retinopathy (HCC) [E*01/03/2014 Vaginal burning [N94.89] 06/12/2014 12/30/2014 Hematuria [R31.9] 06/12/2014 03/07/2017 UTI (lower urinary tract infection) [N39.0] 06/12/2014 12/30/2014 Right flank pain [R10.9] 06/12/2014 12/30/2014 Family history of malignant neoplasm of gastroi*02/19/2015 02/19/2015 Vitamin D deficiency [E55.9] 03/19/2015 Pain in right hip [M25.551] 10/02/2015 Unstable angina (HCC) [I20.0] 10/11/2015 02/07/2016 HTN (hypertension) [I10] 10/11/2015 03/07/2017 CAD (coronary artery disease) [I25.10] 10/11/2015 03/07/2017 VTE (venous thromboembolism) [I82.90] 10/11/2015 07/26/2016 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*01/12/2016 03/07/2017 Chronic right-sided low back pain with right-si*03/09/2016 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] 05/26/2016 03/07/2017 Chronic right SI joint pain [M53.3, G89.29] 09/07/2016 Connective 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*11/25/2016 03/07/2017 Medications Discontinued During This Encounter Prescriptions - blood sugar diagnostic (BLOOD GLUCOSE TEST) test strip (Discontinued) Reported on 12/17/2024 - Blood-Glucose Meter monitoring kit (Discontinued) Reported on 12/17/2024 - anastrozole (ARIMIDEX) 1 mg tablet (Discontinued) Reported on 12/17/2024 - aspirin 81 mg chewable tablet (Discontinued) Reported on 12/17/2024 - atorvastatin (LIPITOR) 40 mg tablet (Discontinued) Reported on 12/17/2024 - COMPOUNDED PRESCRIPTION (Discontinued) Reported on 12/17/2024 - COMPOUNDED PRESCRIPTION (Discontinued) Reported on 12/17/2024 - ergocalciferol, vitamin D2, (DRISDOL) 50,000 unit capsule (Discontinued) Reported on 12/17/2024 - furosemide (LASIX) 20 mg tablet (Discontinued) Reported on 12/17/2024 - traMADol (ULTRAM) 50 mg tablet (Discontinued) Reported on 12/17/2024 - HYDROcodone-acetaminophen (NORCO) 5-325 mg per tablet (Discontinued) Reported on 12/17/2024 - ipratropium-albuterol (COMBIVENT RESPIMAT) 20-100 mcg/actuation mist (Discontinued) Reported on 12/17/2024 - nitroglycerin sublingual (NITROQUICK) 0.4 mg SL tablet (Discontinued) Reported on 12/17/2024 - lisinopril (PRINIVIL) 20 mg tablet (Discontinued) Reported on 12/17/2024 - Ipratropium [place] (ATROVENT) 0.03 % nasal spray (Discontinued) Reported on 12/17/2024 - pantoprazole DR (PROTONIX) 20 mg tablet (Discontinued) Reported on 12/17/2024 - meclizine (ANTIVERT) 25 mg tab (Discontinued) Reported on 12/17/2024 - TENS Units jahaira (Discontinued) Reported on 12/17/2024 - TENS unit and electrodes cmpk (Discontinued) Reported on 12/17/2024 - Lancets lancets (Discontinued) Reported on 12/17/2024 - therapeutic multivitamin tablet (Discontinued) Reported on 12/17/2024 - carbidopa-levodopa (SINEMET 10-100) 10-100 mg per tablet (Discontinued) Take 1 tablet by mouth once daily. 1 tab at noon Level of Service: OFFICE/OUTPATIENT [facility] 45 MINUTES [01452] Encounter Status:Closed by DIANA MCKOEN on 12/20/24 ALLERGIES DATE TYPE / CODE NAME / CODE REACTION SEVERITY SOURCE 12/17/2024 DRUG INGREDI/930690 003(SNOMED CT) DONEPEZIL INTOLERANCE [facility] 12/17/2024 DRUG INGREDI/873142 003(SNOMED CT) MEMANTINE INTOLERANCE [facility] 01/08/2015 DRUG INGREDI/835121 003(SNOMED CT) LOVASTATIN Myalgia Med [facility] 07/15/2011 DRUG/[id number] (SNOMED CT) HYDROCODONE-ACETAMIN OPHEN ITCHING [facility] 06/28/2006 DRUG INGREDI/657927 003(SNOMED CT) EZETIMIBE INTOLERANCE [facility] 11/22/2005 Drug Class/[id number] 3(SNOMED CT) ISETHUH-INW-ZPG REDUCTASE INHIBITORS OTHER: SEE C Med [facility] 01/24/2005 DRUG INGREDI/143023 003(SNOMED CT) CODEINE [facility] 01/24/2005 Drug Class/[id number] 3(SNOMED CT) PENICILLINS [facility] ENCOUNTERS ADMIT/DISCHARGE ACCOUNT NUMBER ADMITTING ENCOUNTER CLASS LOC ATION SOURCE 12/17/2024/ 5 [id number] Ambulatory [facility] HospitalBuild ing:NMDN [facility] PAYERS ENCOUNTER GUARANTOR PAYER SUBSCRIBER SOURCE 12/17/2024 Primary Insuranc e:CRISS SEQUEIRA PPOPolicy Number: [id number] Date:[id number] Name:Raj GARCIA: [id number] [place] [address] [facility]
--- OUTSIDE RECORDS SUMMARY | 2024-12-17 10:50 | XMS RPT_ITS ---
Author Name Auto Generated Organization [facility] Care Team Providers Care Computer Specialist Name Role Phone AMY MONZON Referring Unavailable DIANA MCKEON Attending Unavailable PROBLEMS DATE TYPE CONDITION / CODE ATTENDING STATUS [place] RCE 12/17/2024 Active New Patient / UNK(Unknown) DIANA MCKEON Active [facility] PROCEDURES No Procedure Records Found RESULTS PROGRESS Observed: 12/20/2024 5:46 PM Status: COMPLETED Source: [facility] HNO ID: [id number] Author: DIANA MCKEON MD Service: ? Author Type: Physician Type: Progress Notes Filed: 12/20/2024 17:59 Note Text: [facility] - NEW PATIENT EVALUATION Recording using iCAD software for draft documentation of the visit was discussed with the patient/authorized billing customer service representative; all questions welcomed and answered. Patient/authorized billing customer service representative agreed to proceed Referring Provider: Amy Mnozon [address] [facility] Physicians [facility] [address] Dear Amy Monzon: Thank you for referring [...] three years ago by a neurologist in [place]. At the time of diagnosis, she was [...] physical therapy and an exercise class called [employer] at her [facility], which she enjoys. 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), Coronary atherosclerosis of unspecified type of vessel, [place] or graft (01/24/2005), Depressive disorder, not elsewhere classified (10/15/2008), Diverticulosis of colon (without mention of hemorrhage), DVT (deep venous thrombosis) ([facility]) (03/04/2009), Dysmetabolic syndrome X (07/30/2008), 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 has a past surgical history that includes [...] Vibration sense reduced at ankles. Coordination Right: Gkngct-dp-cmdc normal. Rapid alternating movement normal.Left: Eeykah-zm-tbkp normal. Rapid alternating movement normal. Movement Disorders [...] diagnosed 3 years ago by neurology in [place]; currently on carbidopa-levodopa (Sinemet) with unclear benefit. [...] vibratory sensation in ankles, mild tremor on qrndgm-gf-bnhl testing, micrographia, and slowed speech. More convincing [...] mg twice daily Level of service : 64651 (45-59 min). Time spent 56 min on the day of service, which included preparing to see the patient, zymc-hv-gilp patient care, completing clinical documentation, obtaining and/or [...] Observed: 12/17/2024 11:00 AM Status: COMPLETED Source: [facility] Office Visit (NRMDN) COLETTE RICHARDSON ([id number]) 1935 F Date Time Provider Department 12/17/24 11:00 AM DIANA MCKEON AMANDA During your visit today, we recorded the following information about you: Weight 64.8 kg Diana Mckoen MD 12/20/2024 5:59 PM Signed [facility] - NEW PATIENT EVALUATION Recording using iCAD software for draft documentation of the visit was discussed with the patient/authorized billing customer service representative; all questions welcomed and answered. Patient/authorized billing customer service representative agreed to proceed Referring Provider: Amy Monzon [address] [place] [id number] Dear Amy Monzon: Thank you for referring [...] three years ago by a neurologist in [place]. At the time of diagnosis, she was [...] an exercise class called [employer] at her [facility], which she enjoys. 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 Coordination Right: Cyhcmc-nc-pegw normal. Rapid alternating movement normal.Left: Wboovi-du-hpzw normal. Rapid alternating movement normal. Movement Disorders [...] diagnosed 3 years ago by neurology in [place]; currently on carbidopa-levodopa (Sinemet) with unclear benefit. [...] vibratory sensation in ankles, mild tremor on zfjhxs-cz-csar testing, micrographia, and slowed speech. More convincing [...] mg twice daily Level of service : 50185 (45-59 min). Time spent 56 min on the day of service, which included preparing to see the patient, iolw-sr-jnni patient care, completing clinical documentation, obtaining and/or [...] Diana Mckeon MD Referring Provider: AMY MONZON [[id number]] Allergies As of Date: 12/17/2024 Noted Allergy Reaction LOVASTATIN 01/08/2015 17 - Myalgia Comments: Leg pains STATINS (NTEOBDC-RKZ-KSM REDUCTAS*11/22/2005 14 - Other: See Comments Comments: [...] [M23.90] 04/27/2005 07/12/2005 TEAR MED MENISC KNEE-CURRENT [[id number]] 05/06/2005 07/12/2005 LATERAL EPICONDYLITIS [M77.10] 06/03/2005 06/03/2005 MONONEURITIS ARM NEC [G56.80] 06/03/2005 06/03/2005 AFTERCARE NOS [Z51.89] 06/28/2005 07/12/2005 Primary Localized Osteoarthrosis, Lower Leg [M1*08/05/2005 02/09/2009 PES ANSERINUS TENDINITIS [[id number]] 08/29/2005 01/13/2006 SYMPTOMATIC FEMALE CLIMACTERIC STATE [N95.1] [...] 12/30/2014 Breast cancer [C50.919] 06/26/2012 12/30/2014 ER+ IA+ carcinoma of breast [C50.919, Z17.0, Z1*07/25/2012 Memory [...] tablet (Discontinued) Reported on 12/17/2024 - Ipratropium Richardson (ATROVENT) 0.03 % nasal spray (Discontinued) Reported [...] tab at noon Level of Service: OFFICE/OUTPATIENT [facility] 45 MINUTES [13352] Encounter Status:Closed by DIANA MCKEON on 12/20/24 ALLERGIES DATE TYPE / CODE NAME / CODE REACTION SEVERITY SOURCE 12/17/2024 DRUG INGREDI/905490 003(SNOMED CT) DONEPEZIL INTOLERANCE [facility] 12/17/2024 DRUG INGREDI/466415 003(SNOMED CT) MEMANTINE INTOLERANCE [facility] 01/08/2015 DRUG INGREDI/247016 003(SNOMED CT) LOVASTATIN Myalgia Med [facility] 07/15/2011 DRUG/[id number] (SNOMED CT) HYDROCODONE-ACETAMIN OPHEN ITCHING [facility] 06/28/2006 DRUG INGREDI/164289 003(SNOMED CT) EZETIMIBE INTOLERANCE [facility] 11/22/2005 Drug Class/[id number] 3(SNOMED CT) EFZPWWA-JCW-ULW REDUCTASE INHIBITORS OTHER: SEE C Med [facility] 01/24/2005 DRUG INGREDI/756265 003(SNOMED CT) CODEINE [facility] 01/24/2005 Drug Class/94649242 3(SNOMED CT) PENICILLINS [facility] ENCOUNTERS ADMIT/DISCHARGE ACCOUNT NUMBER ADMITTING ENCOUNTER CLASS LOC ATION SOURCE 12/17/2024/ 5 [id number] Ambulatory [facility] HospitalBuild ing:NMDN [facility] PAYERS ENCOUNTER GUARANTOR PAYER SUBSCRIBER SOURCE 12/17/2024 Primary Insuranc e:CRISS SEQUEIRA PPOPolicy Number: [id number] Date:[id number] Name:Raj GARCIA: [id number] [place] [address] [facility]
[2025-02-24 09:22] LABS: Anion Gap 12 (5-15); BUN 10 mg/dL (4-19); BUN/Creat Ratio 15.5 RATIO (10-20); Calcium,Total 9.0 mg/dL (7.6-11.0); Carbon Dioxide 24.4 mmol/L (21.0-32.0); Chloride 103 mmol/L (98-108); Glucose 99 mg/dL (70-99); Potassium 4.3 mmol/L (3.3-5.1)
== END ==
PROVIDERS: PCP Family Medicine
DX: I10 Essential (primary) hypertension (principal); E78.5 Hyperlipidemia, unspecified; E87.6 Hypokalemia; R60.9 Edema, unspecified; Z79.01 Long term (current) use of anticoagulants
CPT/HCPCS: 36415; 80048

== ENCOUNTER → 2025-02-25 | Outpatient (REF) | payer MEDICARE, SELFPAY ==
--- OUTSIDE RECORDS SUMMARY | 2024-12-17 10:50 | XMS RPT_ITS ---
Author Name Auto Generated Organization [facility] Care Team Providers Care Roll Examiner Name Role Phone AMY MONZON Referring Unavailable DIANA MCKEON Attending Unavailable PROBLEMS DATE TYPE CONDITION / CODE ATTENDING STATUS [place] RCE 12/17/2024 Active New Patient / UNK(Unknown) DIANA MCKEON Active [facility] PROCEDURES No Procedure Records Found RESULTS PROGRESS Observed: 12/20/2024 5:46 PM Status: COMPLETED Source: [facility] HNO ID: [id number] Author: DIANA MCKEON MD Service: ? Author Type: Physician Type: Progress Notes Filed: 12/20/2024 17:59 Note Text: [facility] - NEW PATIENT EVALUATION Recording using DineroMail software for draft documentation of the visit was discussed with the patient/authorized student services representative; all questions welcomed and answered. Patient/authorized student services representative agreed to proceed Referring Provider: Amy Monzon [address] [facility] Physicians [facility] [address] Dear Amy Monzon: Thank you for referring [...] three years ago by a neurologist in [place]. At the time of diagnosis, she was experiencing frequent falls and confusion, which were attributed to balance issues and electrolyte imbalances. Her daughter reports that Colette has since developed more pronounced Parkinsonian symptoms, including a "pill-rolling" tremor in her right hand and a [...] and reports that her hands feel like "sandpaper," though they appear smooth to touch. She [...] an exercise class called [employer] at her [facility], which she enjoys. 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), Coronary atherosclerosis of unspecified type of vessel, [place] or graft (01/24/2005), Depressive disorder, not elsewhere classified (10/15/2008), Diverticulosis of colon (without mention of hemorrhage), DVT (deep venous thrombosis) ([facility]) (03/04/2009), Dysmetabolic syndrome X (07/30/2008), ER+ [place]+ carcinoma of breast (07/25/2012), Female stress incontinence [...] of Chronic renal insufficiency, Congestive heart failure ([facility]), Epilepsy ([facility]), 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 has a past surgical history that includes [...] Vibration sense reduced at ankles. Coordination Right: Tpclos-ts-vwcm normal. Rapid alternating movement normal.Left: Lnsuid-bl-kdea normal. Rapid alternating movement normal. Movement Disorders [...] diagnosed 3 years ago by neurology in [place]; currently on carbidopa-levodopa (Sinemet) with unclear benefit. [...] vibratory sensation in ankles, mild tremor on bbmuay-nd-nuia testing, micrographia, and slowed speech. More convincing [...] mg twice daily Level of service : 98529 (45-59 min). Time spent 56 min on the day of service, which included preparing to see the patient, plsb-pi-eimz patient care, completing clinical documentation, obtaining and/or [...] 11:00 AM Status: COMPLETED Source: [facility] Office Visit (NRMDN) COLETTE RICHARDSON ([id number]) 1935 F Date Time Provider Department 12/17/24 11:00 AM DIANA MCKEON NRAMANDA During your visit today, we recorded the following information about you: Weight 64.8 kg Diana Mckeon MD 12/20/2024 5:59 PM Signed [facility] PATIENT EVALUATION Recording using DineroMail software for draft documentation of the visit was discussed with the patient/authorized student services representative; all questions welcomed and answered. Patient/authorized student services representative agreed to proceed Referring Provider: Amy Monzon [address] [place] [address] Dear Amy Monzon: Thank you for referring [...] three years ago by a neurologist in [place]. At the time of diagnosis, she was experiencing frequent falls and confusion, which were attributed to balance issues and electrolyte imbalances. Her daughter reports that Colette has since developed more pronounced Parkinsonian symptoms, including a "pill-rolling" tremor in her right hand and a [...] and reports that her hands feel like "sandpaper," though they appear smooth to touch. She [...] physical therapy and an exercise class called TUNJI at her [facility], which she enjoys. 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 Coordination Right: Sgvenp-pw-fuwq normal. Rapid alternating movement normal.Left: Khvkam-pr-krou normal. Rapid alternating movement normal. Movement Disorders [...] diagnosed 3 years ago by neurology in [place]; currently on carbidopa-levodopa (Sinemet) with unclear benefit. [...] vibratory sensation in ankles, mild tremor on ijcngl-ku-ebey testing, micrographia, and slowed speech. More convincing [...] mg twice daily Level of service : 66115 (45-59 min). Time spent 56 min on the day of service, which included preparing to see the patient, urhi-qu-inkg patient care, completing clinical documentation, obtaining and/or [...] Diana Mckeon MD Referring Provider: AMY MONZON [[id number]] Allergies As of Date: 12/17/2024 Noted Allergy Reaction LOVASTATIN 01/08/2015 17 - Myalgia Comments: Leg pains STATINS (HOYDHSY-SXQ-BYA REDUCTAS*11/22/2005 14 - Other: See Comments Comments: [...] [M23.90] 04/27/2005 07/12/2005 TEAR MED MENISC KNEE-CURRENT [[id number]] 05/06/2005 07/12/2005 LATERAL EPICONDYLITIS [M77.10] 06/03/2005 06/03/2005 MONONEURITIS ARM NEC [G56.80] 06/03/2005 06/03/2005 AFTERCARE NOS [Z51.89] 06/28/2005 07/12/2005 Primary Localized Osteoarthrosis, Lower Leg [M1*08/05/2005 02/09/2009 PES ANSERINUS TENDINITIS [WJA5900] 08/29/2005 01/13/2006 SYMPTOMATIC FEMALE CLIMACTERIC STATE [N95.1] [...] 12/30/2014 Breast cancer [C50.919] 06/26/2012 12/30/2014 ER+ TN+ carcinoma of breast [C50.919, Z17.0, Z1*07/25/2012 Memory [...] tablet (Discontinued) Reported on 12/17/2024 - Ipratropium [place] (ATROVENT) 0.03 % nasal spray (Discontinued) Reported [...] tab at noon Level of Service: OFFICE/OUTPATIENT [facility] 45 MINUTES [62201] Encounter Status:Closed by DIANA MCKEON on 12/20/24 ALLERGIES DATE TYPE / CODE NAME / CODE REACTION SEVERITY SOURCE 12/17/2024 DRUG INGREDI/975679 003(SNOMED CT) DONEPEZIL INTOLERANCE [facility] 12/17/2024 DRUG INGREDI/988311 003(SNOMED CT) MEMANTINE INTOLERANCE [facility] 01/08/2015 DRUG INGREDI/265269 003(SNOMED CT) LOVASTATIN Myalgia Med [facility] 07/15/2011 DRUG/[id number] (SNOMED CT) HYDROCODONE-ACETAMIN OPHEN ITCHING [facility] 06/28/2006 DRUG INGREDI/825838 003(SNOMED CT) EZETIMIBE INTOLERANCE [facility] 11/22/2005 Drug Class/44682367 3(SNOMED CT) BIPGSNX-KXR-TRY REDUCTASE INHIBITORS OTHER: SEE C Med [facility] 01/24/2005 DRUG INGREDI/474751 003(SNOMED CT) CODEINE [facility] 01/24/2005 Drug Class/63758336 3(SNOMED CT) PENICILLINS [facility] ENCOUNTERS ADMIT/DISCHARGE ACCOUNT NUMBER ADMITTING ENCOUNTER CLASS LOC ATION SOURCE 12/17/2024/ 5 [id number] Ambulatory [facility] HospitalBuild ing:NMDN [facility] PAYERS ENCOUNTER GUARANTOR PAYER SUBSCRIBER SOURCE 12/17/2024 Primary Insuranc e:[facility] PPOPolicy Number: [id number] Date:[id number] Name:Raj RICHARDSONDOB: [id number] [place] [address] [facility]
[2025-02-25 09:07] LABS: Anion Gap 12 (5-15); BUN 11 mg/dL (4-19); BUN/Creat Ratio 16.0 RATIO (10-20); Calcium,Total 9.4 mg/dL (7.6-11.0); Carbon Dioxide 27.3 mmol/L (21.0-32.0); Chloride 99 mmol/L (98-108); Glucose 111 mg/dL (70-99); Potassium 4.0 mmol/L (3.3-5.1)
== END ==
PROVIDERS: PCP Family Medicine
DX: I10 Essential (primary) hypertension (principal); E78.5 Hyperlipidemia, unspecified; E87.6 Hypokalemia; R60.9 Edema, unspecified; Z79.01 Long term (current) use of anticoagulants
CPT/HCPCS: 36415; 80048

== ENCOUNTER → 2025-03-05 | Outpatient (REF) | payer MEDICARE, SELFPAY ==
[2025-03-05 08:07] LABS: Mucous, Urine 0 SEEN /hpf (<or=2+); Red Blood Cells-Urine 0 SEEN /hpf (0-5); Squamous Epithelial Cells - UA 0 SEEN /hpf (5-10)
[2025-03-05 08:28] LABS: Color, Urine Yellow (Yellow); Glucose, Dipstick Normal (Normal); Ketone-Dipstick Negative (Negative); Leukocyte Esterase-Dipstick Negative /ul (Negative); Nitrite-Dipstick Negative (Negative); Occult Blood-Urine Negative /ul (Negative); Protein-Dipstick 15 mg/dl (Negative); Specific Gravity, Urine 1.010 (1.002-1.030); Urine Bilirubin Dipstick Negative (Negative)
== END ==
PROVIDERS: PCP Family Medicine; Visit Provider Internal Medicine
DX: N39.0 Urinary tract infection, site not specified (principal)
CPT/HCPCS: 81001; 87086

== ENCOUNTER → 2025-03-26 05:00 | Outpatient (REF) | payer MEDICARE, SELFPAY ==
[2025-03-26 08:18] LABS: INR Fingerstick 2.2
== END ==
PROVIDERS: PCP Family Medicine; Visit Provider Pediatrics Pediatric Endocrinology
DX: Z79.01 Long term (current) use of anticoagulants (principal)
CPT/HCPCS: 36416; 85610

== ENCOUNTER → 2025-04-21 | Outpatient (REF) | payer MEDICARE, SELFPAY ==
--- OUTSIDE RECORDS SUMMARY | 2025-04-21 04:00 | XMS RPT_ITS | CCD ---
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 Joe Rosario Emergency [...] Admit Provider Dr. Gonzalo Stephens Attending Provider Kat, Dr. Sánchez Other Provider Jessica, Dr. Ba Attending Provider Jessica, Dr. Ba Other Provider Dr. Hortensia Unger Primary Care Provider Dr. Hortensia Unger Referring Provider Dr. Tom Sorenson Attending Provider Dr. Hortensia Unger Primary Care Provider Dr. Hortensia Unger Referring Provider Dr. Tom Sorenson Attending Provider Dr. Melo Monzon MD Primary Care Provider Unawild Monzon MD, Dr. Alejo Attending Provider Unavail Dr. Melo Jhaveri MD Referring Provider Unavail able Fady HOLLAND, Dr. Alejo Primary Care Provider Dr. Melo Mir MD Attending Provider Unavail able Dr. Melo Monzon MD Referring Provider Unavail able Dr. Se Schmidt DO Emergency Provider [phone] Melo Monzon MD Primary Care Provider UnaDr. Melo Hernández MD Attending Provider Unavail able Dr. Se Schmidt DO Attending Provider Akin Post Unavailable Fredo Kathleen MD Unavailable Fabrice HOLLAND, Power Unavailable MELO MONZON Referring Unavailable DIANA MCKEON Attending Unavailable Melo Wallace Attending Unavailable Monzon OLS, Melo Referring Unavailable Monzon OLS, Melo Primary Care Unavailable Monzon OLS, Melo Attending Unavailable Monzon OLS, Melo Primary Care Unavailable Monzon OLS, Melo Attending Unavailable Monzon OLS, Melo Primary Care Unavailable Monzon OLS, Melo Attending Unavailable Monzon OLS, Melo Referring Unavailable Monzon OLS, Melo Primary Care Unavailable Monzon OLS, Melo Attending Unavailable Monzon OLS, Melo Primary Care Unavailable Branden Soares Attending Unavailable Monzon OLS, Melo Primary Care Unavailable Monzon OLS, Melo Attending Unavailable Monzon OLS, Melo Primary Care Unavailable Monzon OLS, Melo Attending Unavailable Monzon OLS, Melo Primary Care Unavailable Monzon OLS, Melo Attending Unavailable Monzon OLS, Melo Primary Care Unavailable Monzon OLS, Melo Attending Unavailable Se Schmidt Attending Unavailable Monzon OLS, Melo Primary Care Unavailable Monzon OLS, Melo Referring Unavailable Monzon OLS, Melo Primary Care Unavailable Monzon OLS, Melo Attending Unavailable Monzon OLS, Melo Referring Unavailable Monzon OLS, Melo Primary Care Unavailable Monzon OLS, Melo Attending Unavailable Monzon OLS, Melo Primary Care Unavailable Monzon OLS, Melo Attending Unavailable Monzon OLS, Melo Primary Care Unavailable Monzon OLS, Melo Attending Unavailable Monzon OLS, Melo Primary Care Unavailable Freddy Rodriguez Attending Unavailable Rani Soares Referring Unavailable Rani Soares Attending Unavailable Monzon OLS, Melo Primary Care Unavailable Monzon OLS, Melo Primary Care Unavailable Carley Luo Attending Unavailabl e Monzon OLS, Melo Primary Care Unavailable Monzon OLS, Melo Attending Unavailable Monzon OLS, Melo Primary Care Unavailable Monzon OLS, Melo Attending Unavailable Monzon OLS, Melo Primary Care Unavailable Monzon OLS, Melo Attending Unavailable Monzon OLS, Melo Primary Care Unavailable Monzon OLS, Melo Attending Unavailable Monzon OLS, Melo Primary Care Unavailable Monzon OLS, Melo Attending Unavailable Monzon OLS, Melo Primary Care Unavailable Monzon OLS, Melo Attending Unavailable Monzon OLS, Melo Primary Care Unavailable Monzon OLS, Melo Attending Unavailable Monzon OLS, Melo Primary Care Unavailable Monzon OLS, Melo Attending Unavailable Monzon OLS, Melo Primary Care Unavailable Monzon OLS, Melo Attending Unavailable Monzon OLS, Melo Primary Care Unavailable Monzon OLS, Melo Attending Unavailable Monzon OLS, Melo Primary Care Unavailable Monzon OLS, Melo Attending Unavailable Monzon OLS, Melo Primary Care Unavailable Monzon OLS, Melo Attending Unavailable Allergies Allergy Classification Reported Allergen(s) Allergy Type Date of Onset Reaction(s) Facility (20 sources) Acetaminophen Drug Allergy 06-17-19 [place] (20 sources) Codeine; Translations: [CODEINE] Drug Allergy 01-25-20 05 Nausea [facility] (20 sources) ezetimibe; Translations: [EZETIMIBE] Drug Allergy 06-28-19 07 Intolerance [facility] (20 sources) HYDROcodone; Translations: [hydrocodone bitartrate] Drug Allergy 06-17-19 Itching [facility] (20 sources) Penicillins; Translations: [PENICILLINS] Allergy to substance 01-25-20 05 Anaphylaxis [facility] (20 sources) Tcrwnsw-Dyx-Vdy Reductase Inhibitor; Translations: [Dhtiwcv-Iiq-Lxs Reductase Inhibitor] Propensity to adverse reactions 06-17-19 Other [facility] Comment on above: TOLERATES LIPITOR (4 sources) Memantine; Translations: [MEMANTINE] Drug Allergy 10-10-19 25 Intolerance [facility] (2 sources) Acetaminophen / HYDROcodone; Translations: [HYDROCODONE-ACET AMINOPHEN] Drug Allergy 07-15-19 12 Itching [facility] (2 sources) donepezil; Translations: [DONEPEZIL] Drug Allergy 12-18-19 25 Intolerance [facility] (2 sources) HMG-CoA reductase inhibitor; Translations: [VWKVFBC-QBT-CZG REDUCTASE INHIBITORS] Drug Intolerance 11-23-19 06 Other: See Comments [facility] (2 sources) Lovastatin; Translations: [LOVASTATIN] Drug Allergy 01-09-20 15 Myalgia [facility] Work Phone: (1 source) Acetaminophen Drug Allergy 03-17-20 [facility] (1 source) Codeine Drug Allergy 03-17-20 [facility] (1 source) ezetimibe Drug Allergy 03-17-20 [facility] (1 source) Memantine Drug Allergy 03-17-20 [facility] Medications Current Medications Medication Drug [...] Active docusate sodium 50 mg / sennosides, penitentiary 8.6 mg oral tablet (1 source) take [...] Start: 11-02-2021 take 1 tablet by gisella twice daily Hydroxychloroquine 200 mg tablet Active [...] Active 20 meq PO DAILY WITH MEALS 30 November 10, 2021 12:00am QUEtiapine 25 mg [...] times weekly on , and Sun in the evening Start: 06-16-2022 End: 01-09-2023 Warfarin 5 mg tablet Active 5 mg PO WITH DINNER January 09, 2023 10:34am 1 tb PO one time a day four times weekly on Mon, Wed, Mon, and Sat Evening. Start: 03-07-2022 Warfarin Activ e 3 MG PO WITH DINNER March 06, 2022 11:00pm for a total of 7mg give with 4mg tablet Start: 03-07-2022 Warfarin Activ e 4 MG PO WITH DINNER March 06, 2022 11:00pm take with 3mg tablet for total dose of 7mg Start: 11-10-2021 Warfarin (Jant oven) 1 mg Tablet Active 1 MG [...] mg capsule Discontinued 81 mg PO DAILY 30 June 17, 2022 1:00am March 24, 2024 [...] neuropathy, without long-term current use of insulin ([facility]) Glucose Meter of Choice - Kit [...] 06-23-2021 End: 09-23-2021 Fluticasone Propionate 50 mcg/actuation [place],Suspension Discontinued 1 NMA NASAL TWICE A DAY [...] 8:44pm Start: 11-25-2010 take 2 puff(s) by mo [facility] twice daily fluticasone (FLOVENT HFA) 110 mcg/Actuation [...] mg tablet Discontinued 25 mg PO DAILY September 30, 2021 12:00am November 04, 2021 3:03pm ipratropium bromide 0.021 mg/actuat metered dose nasal spray (1 source) Anticholinergic Start: 03-16-2015 End: 12-20-2024 Ipratropium [place]well (ATROVENT) 0.03 % nasal spray Indications: Other [...] elevation (NSTEMI) myocardial infarction] Chronic Anxiety disorders (2 sources) Anxiety state; Translations: [Generalized anxiety disorder] Onset: [...] Coronary arteriosclerosis; Translations: [Atherosclerotic heart disease of [place] coronary artery without angina pectoris] Onset: 5 [...] (primary) hypertension] Onset: 5 Resolved: 7 Chronic Fever of unknown origin (1 source) Fever, unspecified; Translations: [Fever, unspecified] Onset: 5 Episodic Fluid and electrolyte disorders (20 sources) Acute hyponatremia; Translations: [Hypo-osmolality and hyponatremia] Onset: 3 Resolved: 3 Episodic Genitourinary symptoms and ill-defined conditions (1 source) Female stress incontinence; Translations: [Stress incontinence (female) (male)] Onset: 5 09-24-2024 Chronic Heart valve disorders (20 sources) Aortic stenosis, non-rheumatic ; Translations: [Nonrheumatic aortic (valve) stenosis] 09-30-2021 Chronic Malaise and fatigue (20 sources) Asthenia; Translations: [Other malaise] Onset: 5 Episodic Menopausal disorders (1 source) Menopausal symptom; Translations: [Menopausal and female climacteric states] Onset: 6 09-24-2024 Chronic Mood disorders (20 sources) Depressive disorder; Translations: [Depression] Onset: 9 Chronic Nausea and vomiting (20 sources) Nausea and vomiting; Translations: [Nausea with vomiting, unspecified] 02-02-2023 Episodic Nutritional deficiencies (1 source) Vitamin D deficiency; Translations: [Vitamin D deficiency, unspecified] Onset: 5 03-19-2015 Chronic Other aftercare (20 sources) Anticoagulant control - finding; Translations: [Encounter for therapeutic drug level monitoring] 04-13-2019 Episodic Other aftercare (20 sources) Long-term current use of anticoagulant; Translations: [half-way (current) use of anticoagulants] 09-23-2021 Episodic Other aftercare (2 sources) half-way (current) use of anticoagulants; Translations: [intermission coordinator (current) use of anticoagulants] Onset: Episodic Other aftercare (2 sources) Other intermediate (current) drug therapy; Translations: [Other intermission coordinator (current) drug therapy] Onset: Episodic Other circulatory disease (3 sources) [...] Translations: [Edema, unspecified] Episodic Residual codes; unclassified (10 sources) Edema, unspecified; Translations: [Edema] Onset: Episodic Residual codes; unclassified (10 sources) Insomnia, [...] [Transient cerebral ischemic attack, unspecified] 08-01-2017 Chronic Urinary tract infections (2 sources) Lower urinary tract infectious disease; Translations: [Urinary tract infection, site not specified] Onset: 5 Resolved: 5 12-30-2014 Episodic Past or Other Problems Problem Classification Problem [...] unspecified; Translations: [Anemia, unspecified] Onset: 4 Episodic Gastritis and duodenitis (1 source) Acute [...] of knee, current] Onset: 5 Resolved: 6 09-24-2024 Episodic Mycoses (1 source) Onychomycosis due to [...] left hip] Onset: 6 09-23-2021 Episodic Other nutritional; endocrine; and metabolic disorders [...] side] Onset: 0 Resolved: 7 03-09-2016 Episodic Results Test Name Value Interpretation Reference Range Facility [facility] 12-17-2024 CN Office Visit (NRMDN) COLETTE RICHARDSON ([id number]) 1935 F Date Time Provider Department 12/17/24 11:00 AM DIANA MCKEON During your visit today, we recorded the following information about you: Weight 64.8 kg Diana Mckeon MD 12/20/2024 5:59 PM Signed [facility] PATIENT EVALUATION Recording using Zayo software for draft documentation of the visit was discussed with the patient/authorized service center representative; all questions welcomed and answered. Patient/authorized service center representative agreed to proceed Referring Provider: Melo Monzon [address] [facility] [address] Dear Melo Monzon: Thank you for referring Ms. Richardson [...] three years ago by a neurologist in [place]. At the time of diagnosis, she was [...] physical therapy and an exercise class called [employer] at her [facility], which she enjoys. [...] (none) Urinar (more content not included)... Normal [facility] normalized rat io (INR) calculationOrdered By: Melo Monzon on 10-22-2024 INR Coag (Bld) [Relative time] 2.3 {INR} [facility] Prothrombin timeOrdered By: Melo Monzon on 10-22-2024 PT Coag (PPP) [Time] 26.0 s High 11.7-14.9 [facility] Absolute lymphocyte countOrd ered By: Se Schmidt on 10-09-2024 Lymphocytes Auto (Unsp spec) [#/Vol] 1.87 10*3/uL 0.83-4.51 [facility] Absolute neutrophil countOrd ered By: Se Schmidt on 10-09-2024 Neutrophils (Bld) [#/Vol] 2.9 10*3/uL 2.0-7.7 [facility] Activated partial thrombopla stin time (aPTT) in platelet poor plasma by coagulation aOrdered By: Se Schmidt on 10-09-2024 aPTT Coag (PPP) [Time] 32.4 s 24.1-36.2 [facility] Anion gap in Serum or Plasma Ordered By: Se Schmidt on 10-09-2024 Anion gap [Moles/Vol] 7 mmol/L 5-15 [facility] Automated lymphocyte count a s percentage of total leukocytesOrdered By: Se Schmidt on 10-09-2024 Lymphocytes/100 WBC Auto (Unsp spec) 33.8 % 19-41 [facility] BUN/creatinine ratioOrdered By: Se Schmidt on 10-09-2024 Urea nitrogen/Creatinine [Mass ratio] 20.6 mg/mg High 10-20 [facility] Basic Metabolic Profile (BMP )on 10-09-2024 BUN/CRE 20.6 RATIO High 10-20 [facility] Comment on above: Performed By: #### L 500.2500, L100.0100, L300.4310, L300.3900 #### [facility] [address] [place], [address] Calcium [Mass/Vol] 8.8 mg/dL Normal 7.6-11.0 [facility] Comment on above: Performed By: #### L 500.2500, L100.0100, L300.4310, L300.3900 #### [facility] [address] [place], [address] Chloride [Moles/Vol] 99 mmol/L Normal 98-108 [facility] Comment on above: Performed By: #### L 500.2500, L100.0100, L300.4310, L300.3900 #### [facility] [address] [place], [address] CO2 [Moles/Vol] 28.1 mmol/L Normal 21.0-32.0 [facility] Comment on above: Performed By: #### L 500.2500, L100.0100, L300.4310, L300.3900 #### [facility] [address] [place], [address] Creatinine [Mass/Vol] 0.66 mg/dL Low 0.70-1.20 [facility] Comment on above: Performed By: #### L 500.2500, L100.0100, L300.4310, L300.3900 #### [facility] [address] [place], [address] ECRCL 43.20 ml/min Low 50-250 [facility] Comment on above: Performed By: #### L 500.2500, L100.0100, L300.4310, L300.3900 #### [facility] [address] [place], [address] GAP 7 Normal 5-15 [facility] Comment on above: Performed By: #### L 500.2500, L100.0100, L300.4310, L300.3900 #### [facility] [address] [place], [address] GFR/1.73 sq M.predicted among non-blacks MDRD (S/P/Bld) [Vol rate/Area] 85 mL/min/{1.73_m2} Normal >60 [facility] Comment on above: Result Comment: mL/m in/1.73m2 CKD-EPI Creatinine Equation (2020) Performed By: #### L 500.2500, L100.0100, L300.4310, L300.3900 #### [facility] [address] [place], [address] Glucose [Mass/Vol] 131 mg/dL High 70-99 [facility] Comment on above: Performed By: #### L 500.2500, L100.0100, L300.4310, L300.3900 #### [facility] [address] [place], [address] Potassium [Moles/Vol] 4.3 mmol/L Normal 3.3-5.1 [facility] Comment on above: Performed By: #### L 500.2500, L100.0100, L300.4310, L300.3900 #### [facility] [address] [place], [address] Sodium [Moles/Vol] 134 mmol/L Normal 133-145 [facility] Comment on above: Performed By: #### L 500.2500, L100.0100, L300.4310, L300.3900 #### [facility] [address] [place], [address] Urea nitrogen [Mass/Vol] 14 mg/dL Normal 4-19 [facility] Comment on above: Performed By: #### L 500.2500, L100.0100, L300.4310, L300.3900 #### [facility] [address] [place], [place], [address] Basophil percentageOrdered B y: Se Schmidt on 10-09-2024 Basophils/100 WBC (Bld) 0.7 % 0-1 [facility] Brain/Head without Contrasto n 10-09-2024 Brain/Head without Contrast [facility] [address] [place] [address] Brain/Head without Contrast MR#: [id number] Acct: [id number] Name: COLETTE RICHARDSON Rep #: [id number] : 1935 F 89 From: Gonzalo Schmidt MD PCP: Dr. Melo Monzon MD Status: REG ER Study: Brain/Head without Contrast Date of Exam: 09/26 09/20 Exam# [id number] Ordering Dr: Se Schmidt DO EXAM: CT [...] with MRI is recommended. Reading Location: [facility] CC: Dr. Melo Monzon MD; Dr. Se Schmidt DO Pc Technician: Signed Normal [facility] CBC W/Diff, Automatedon 05 Absolute Lymph 1.87 X10 3/uL Normal 0.83-4.51 [facility] Comment on above: Performed By: #### L 500.2500, L100.0100, L300.4310, L300.3900 #### [facility] [address] [place], [address] Absolute Neut 2.9 X10 3/uL Normal 2.0-7.7 [facility] Comment on above: Performed By: #### L 500.2500, L100.0100, L300.4310, L300.3900 #### [facility] [address] [place], [address] Basophils/100 WBC (Bld) 0.7 % Normal 0-1 [facility] Comment on above: Performed By: #### L 500.2500, L100.0100, L300.4310, L300.3900 #### [facility] [address] [place], [address] Eosinophils/100 WBC (Bld) 4.2 % Normal 0-5 [facility] Comment on above: Performed By: #### L 500.2500, L100.0100, L300.4310, L300.3900 #### [facility] [address] [place], [address] Erythrocyte distribution width (RBC) [Ratio] 12.3 % Normal 11.6-14.6 [facility] Comment on above: Performed By: #### L 500.2500, L100.0100, L300.4310, L300.3900 #### [facility] [address] [place], [address] Hematocrit (Bld) [Volume fraction] 38.7 % Normal 37-47 [facility] Comment on above: Performed By: #### L 500.2500, L100.0100, L300.4310, L300.3900 #### [facility] [address] [place], [address] Hemoglobin (Bld) [Mass/Vol] 13.1 g/dL Normal 12.0-15.0 [facility] Comment on above: Performed By: #### L 500.2500, L100.0100, L300.4310, L300.3900 #### [facility] [address] [place], [address] IG% 0.200 Normal 0.0-0.9 [facility] Comment on above: Result Comment: IG% - Immature Granulocytes (promyelocytes, myelocytes and metamyelocytes) > 1% indicates that a LEFT SHIFT is Present. Performed By: #### L 500.2500, L100.0100, L300.4310, L300.3900 #### [facility] [address] [place], [address] Lymphocytes/100 WBC (Bld) 33.8 % Normal 19-41 [facility] Comment on above: Performed By: #### L 500.2500, L100.0100, L300.4310, L300.3900 #### [facility] [address] [place], [address] MCH (RBC) [Entitic mass] 31.3 pg Normal 27.0-32.0 [facility] Comment on above: Performed By: #### L 500.2500, L100.0100, L300.4310, L300.3900 #### [facility] [address] [place], [address] MCHC (RBC) [Mass/Vol] 33.9 g/dL Normal 32-36 [facility] Comment on above: Performed By: #### L 500.2500, L100.0100, L300.4310, L300.3900 #### [facility] [address] [place], [address] MCV (RBC) [Entitic vol] 92.6 fL Normal 81-99 [facility] Comment on above: Performed By: #### L 500.2500, L100.0100, L300.4310, L300.3900 #### [facility] [address] [place], [address] Monocytes/100 WBC (Bld) 8.5 % Normal 0-10 [facility] Comment on above: Performed By: #### L 500.2500, L100.0100, L300.4310, L300.3900 #### [facility] [address] [place], [address] Neutrophils/100 WBC (Bld) 52.6 % Normal 47-70 [facility] Comment on above: Performed By: #### L 500.2500, L100.0100, L300.4310, L300.3900 #### [facility] [address] [place], [address] Nucleated RBC (Bld) [#/Vol] 0 10*3/uL Normal 0-5 [facility] Comment on above: Performed By: #### L 500.2500, L100.0100, L300.4310, L300.3900 #### [facility] [address] [place], [address] Platelet mean volume (Bld) [Entitic vol] 10.3 fL Normal 6.2-12.0 [facility] Comment on above: Performed By: #### L 500.2500, L100.0100, L300.4310, L300.3900 #### [facility] [address] [place], [address] Platelets (Bld) [#/Vol] 196 10*3/uL Normal 150-450 [facility] Comment on above: Performed By: #### L 500.2500, L100.0100, L300.4310, L300.3900 #### [facility] [address] [place], [address] RBC (Bld) [#/Vol] 4.18 10*6/uL Low 4.2-5.4 [facility] Comment on above: Performed By: #### L 500.2500, L100.0100, L300.4310, L300.3900 #### [facility] [address] [place], [address] RDW SD 42.1 fl Normal 35.1-43.9 [facility] Comment on above: Performed By: #### L 500.2500, L100.0100, L300.4310, L300.3900 #### [facility] [address] [place], [address] WBC (Bld) [#/Vol] 5.5 10*3/uL Normal 4.4-11.0 [facility] Comment on above: Performed By: #### L 500.2500, L100.0100, L300.4310, L300.3900 #### [facility] [address] [place], [address] Carbon dioxide, total [Moles /volume] in Central venous bloodOrdered By: Se Schmidt on 10-09-2024 CO2 [Moles/Vol] 28.1 mmol/L 21.0-32.0 [facility] Chloride assayOrdered By: Cedric Schmidt on 10-09-2024 Chloride [Moles/Vol] 99 mmol/L 98-108 [facility] Emergency Department Summary on 10-09-2024 Emergency Department Summary [facility] Medical Records Department [address] [place] [address] Emergency Department Summary 10/09/24 MR#: [id number] Acct: [id number] Name: COLETTE RICHARDSON Rep #: [id number] : 1935 89 From: Se Lu PCP: Dr. Melo Monzon MD Status:DEP ER Location: ED HPI HPI - Fall History of Present Illness Chief Complaint: Head Injury Informant: patient and family Narrative Narrative: Brought from [facility] living by EMS daughter present for [...] aortic (valve) stenosis Poor balance Frequent falls half-way current use of anticoagulant Rheumatoid arthritis Parkinsonian syndrome History of pulmonary embolus (PE) Postoperative atrial fibrillation (04/04/13) Recurrent deep vein thrombosis (DVT) Hypercoagulable state History of non-ST elevation myocardial infarction (NSTEMI) (10/01/16) Atherosclerotic heart disease of [place] coronary artery without angina pectoris Paroxysmal atrial [...] (From AdvReac Itching Verified 10/09/24 19:02 Vicodin) Tiatpuj-FOR-GtI Reductase AdvReac Other Verified 10/09/24 19:02 Inhibitor (Tkvqtdy-Ykl-Avu Reductase Inhibitor) Surgical History History of coronary [...] dysuria, hematur (more content not included)... Normal [facility] Eosinophil percentageOrdered By: Se Schmidt on 10-09-2024 Eosinophils/100 WBC (Bld) 4.2 % 0-5 [facility] Erythrocyte distribution wid th ratioOrdered By: Se Schmidt on 10-09-2024 Erythrocyte distribution width (RBC) [Ratio] 12.3 % 11.6-14.6 [facility] Erythrocyte distribution wid th standard deviationOrdered By: Se Schmidt on 10-09-2024 Erythrocyte distribution width (RBC) [Ratio] 42.1 fl 35.1-43.9 [facility] Glomerular filtration rate ( GFR) estimation/1.73 sq m using serum, plasma, or whole bOrdered By: Se Schmidt on 10-09-2024 GFR/1.73 sq M.predicted among non-blacks MDRD (S/P/Bld) [Vol rate/Area] 85 mL/min/{1.73_m2} >60 [facility] Comment on above: mL/min/1.73m2 CKD-EP I Creatinine Equation (2020) Hematocrit Auto (Bld) [Volum e fraction]Ordered By: Se Schmidt on 10-09-2024 Hematocrit (Bld) [Volume fraction] 38.7 % 37-47 [facility] Hemoglobin measurementOrdere d By: Se Schmidt on 10-09-2024 Hemoglobin (Bld) [Mass/Vol] 13.1 g/dL 12.0-15.0 [facility] Immature granulocytes/100 WB C Auto (Bld)Ordered By: Se Schmidt on 10-09-2024 Immature granulocytes/100 WBC (Bld) 0.200 % 0.0-0.9 [facility] Comment on above: IG% - Immature Granu locytes (promyelocytes, myelocytes and metamyelocytes) > 1% indicates that a LEFT SHIFT is Present. International normalized rat io (INR) calculationOrdered By: Se Schmidt on 10-09-2024 INR Coag (Bld) [Relative time] 2.4 {INR} [facility] MCV (mean corpuscular volume ) determinationOrdered By: Se Schmidt on 10-09-2024 MCV (RBC) [Entitic vol] 92.6 fL 81-99 [facility] Mean corpuscular hemoglobin (MCH) determinationOrdered By: Se Schmidt on 10-09-2024 MCH (RBC) [Entitic mass] 31.3 pg 27.0-32.0 [facility] Mean corpuscular hemoglobin concentration (MCHC) determinationOrdered By: Se Schmidt on 10-09-2024 MCHC (RBC) [Mass/Vol] 33.9 g/dL 32-36 [facility] Mean platelet volume determi nationOrdered By: Se Schmidt on 10-09-2024 Platelet mean volume (Bld) [Entitic vol] 10.3 fL 6.2-12.0 [facility] Monocyte percentageOrdered B y: Se Schmidt on 10-09-2024 Monocytes/100 WBC (Bld) 8.5 % 0-10 [facility] Neutrophil percentageOrdered By: Se Schmidt on 10-09-2024 Neutrophils/100 WBC (Bld) 52.6 % 47-70 [facility] Nucleated red blood cell per centageOrdered By: Se Schmidt on 10-09-2024 Nucleated RBC/100 WBC (Bld) [Ratio] 0 % 0-5 [facility] Partial Thromboplast Timeon 10-09-2024 aPTT Coag (Bld) [Time] 32.4 s Normal 24.1-36.2 [facility] Comment on above: Performed By: #### L 500.2500, L100.0100, L300.4310, L300.3900 #### [facility] [address] [place], [address] Platelet countOrdered By: Cedric Schmidt on 10-09-2024 Platelets (Bld) [#/Vol] 196 10*3/uL 150-450 [facility] Potassium measurement (mass/ volume)Ordered By: Se Schmidt on 10-09-2024 Potassium (Unsp spec) [Mass/Vol] 4.3 mmol/L 3.3-5.1 [facility] Prothrombin Time w/INRon INR Coag (PPP) [Relative time] 2.4 {INR} Normal [facility] Comment on above: Performed By: #### L 500.2500, L100.0100, L300.4310, L300.3900 #### [facility] [address] [place], [address] PT Coag (PPP) [Time] 26.6 s High 11.7-14.9 [facility] Comment on above: Performed By: #### L 500.2500, L100.0100, L300.4310, L300.3900 #### [facility] [address] [place], [address] Prothrombin timeOrdered By: Se Schmidt on 10-09-2024 PT Coag (PPP) [Time] 26.6 s High 11.7-14.9 [facility] RBC Auto (Bld) [#/Vol]Ordere d By: Se Schmidt on 10-09-2024 RBC (Bld) [#/Vol] 4.18 10*6/uL Low 4.2-5.4 [facility] Serum creatinine measurement (mass/volume)Ordered By: Se Schmidt on 10-09-2024 Creatinine [Mass/Vol] 0.66 mg/dL Low 0.70-1.20 [facility] Serum glucose measurement (m ass/volume)Ordered By: Se Schmidt on 10-09-2024 Glucose [Mass/Vol] 131 mg/dL High 70-99 [facility] Serum or plasma calcium josué urement (mass/volume)Ordered By: Se Schmidt on 10-09-2024 Calcium [Mass/Vol] 8.8 mg/dL 7.6-11.0 [facility] Serum or plasma urea nitroge n measurement (mass/volume)Ordered By: Se Schmidt on 10-09-2024 Urea nitrogen [Mass/Vol] 14 mg/dL 4-19 [facility] Sodium levelOrdered By: Se Schmidt on 10-09-2024 Sodium [Moles/Vol] 134 mmol/L 133-145 [facility] Spine Cervical without Contr ason 10-09-2024 Spine Cervical without Contras [facility] [address] [place], [place] [address] Spine Cervical without Contras MR#: [id number] Acct: [id number] Name: COLETTE RICHARDSON Rep #: [id number] : [id number] F 89 From: Gonzalo Schmidt MD PCP: Dr. Melo Monzon MD Status: REG ER Study: Spine Cervical without Contras Date of Exam: 0 10/09/24 Exam# [id number] Ordering Dr: Se Schmidt DO EXAM: CT [...] cervical spine as described. Reading Location: [facility] CC: Dr. Melo Monzon MD; Dr. Se Schmidt DO Pc Technician: Signed Normal [facility] White blood cell (WBC) count Ordered By: Se Schmidt on 10-09-2024 WBC (Bld) [#/Vol] 5.5 10*3/uL 4.4-11.0 [facility] International normalized rat io (INR) calculationOrdered By: Melo Monzon on 09-09-2024 INR Coag (Bld) [Relative time] 2.5 {INR} [facility] Prothrombin timeOrdered By: Melo Monzon on 09-09-2024 PT Coag (PPP) [Time] 27.6 s High 11.7-14.9 [facility] International normalized rat io (INR) calculationOrdered By: Melo Monzon on 08-12-2024 INR Coag (Bld) [Relative time] 2.5 {INR} [facility] Prothrombin timeOrdered By: Melo Monzon on 08-12-2024 PT Coag (PPP) [Time] 27.8 s High 11.7-14.9 [facility] International normalized rat io (INR) calculationOrdered By: Melo Monzon on 07-29-2024 INR Coag (Bld) [Relative time] 2.8 {INR} [facility] Prothrombin timeOrdered By: Melo Monzon on 07-29-2024 PT Coag (PPP) [Time] 30.2 s High 11.7-14.9 [facility] INR Coag (BldC) [Relative ti me]Ordered By: Melo Monzon on 07-25-2024 INR Coag (Bld) [Relative time] 2.2 {INR} [facility] Comment on above: Critical Value > 4.0 International normalized rat io (INR) measurement by fingerstickOrdered By: Melo Monzon on 07-25-2024 INR Coag (BldC) [Relative time] 2.2 [facility] Comment on above: Critical Value > 4.0 PT Coag (Bld) [Time]Ordered By: Melo Monzon on 07-25-2024 Bedside Prothrombin Time 24.3 SEC High 11.7-14.9 [facility] Whole blood prothrombin time Ordered By: Melo Monzon on 07-25-2024 PT Coag (Bld) [Time] 24.3 s High 11.7-14.9 [facility] INR Coag (BldC) [Relative ti me]Ordered By: Melo Monzon on 07-24-2024 INR Coag (Bld) [Relative time] 2.1 {INR} [facility] Comment on above: Critical Value > 4.0 International normalized rat io (INR) measurement by fingerstickOrdered By: Melo Monzon on 07-24-2024 INR Coag (BldC) [Relative time] 2.1 [facility] Comment on above: Critical Value > 4.0 PT Coag (Bld) [Time]Ordered By: Melo Monzon on 07-24-2024 Bedside Prothrombin Time 23.3 SEC High 11.7-14.9 [facility] Whole blood prothrombin time Ordered By: Melo Monzon on 07-24-2024 PT Coag (Bld) [Time] 23.3 s High 11.7-14.9 [facility] International normalized rat io (INR) calculationOrdered By: Melo Monzon on 2024 INR Coag (Bld) [Relative time] 1.9 {INR} [facility] Prothrombin timeOrdered By: Melo Monzon on 2024 PT Coag (PPP) [Time] 22.5 s High 11.7-14.9 [facility] International normalized rat io (INR) calculationOrdered By: Melo Monzon on 07-18-2024 INR Coag (Bld) [Relative time] 2.2 {INR} [facility] Prothrombin timeOrdered By: Melo Monzon on 07-18-2024 PT Coag (PPP) [Time] 25.3 s High 11.7-14.9 [facility] INR Coag (BldC) [Relative ti me]Ordered By: Melo Monzon on 07-17-2024 INR Coag (Bld) [Relative time] 1.6 {INR} [facility] Comment on above: Critical Value > 4.0 International normalized rat io (INR) measurement by fingerstickOrdered By: Melo Monzon on 07-17-2024 INR Coag (BldC) [Relative time] 1.6 [facility] Comment on above: Critical Value > 4.0 PT Coag (Bld) [Time]Ordered By: Melo Monzon on 07-17-2024 Bedside Prothrombin Time 18.3 SEC High 11.7-14.9 [facility] Whole blood prothrombin time Ordered By: Melo Monzon on 07-17-2024 PT Coag (Bld) [Time] 18.3 s High 11.7-14.9 [facility] International normalized rat io (INR) calculationOrdered By: Melo Monzon on 07-16-2024 INR Coag (Bld) [Relative time] 1.9 {INR} [facility] Prothrombin timeOrdered By: Melo Monzon on 07-16-2024 PT Coag (PPP) [Time] 22.3 s High 11.7-14.9 [facility] International normalized rat io (INR) calculationOrdered By: Melo Monzon on 07-15-2024 INR Coag (Bld) [Relative time] 1.8 {INR} [facility] Prothrombin timeOrdered By: Melo Monzon on 07-15-2024 PT Coag (PPP) [Time] 21.5 s High 11.7-14.9 [facility] INR Coag (BldC) [Relative ti me]Ordered By: Melo Monzon on 07-12-2024 INR Coag (Bld) [Relative time] 1.7 {INR} [facility] Comment on above: Critical Value > 4.0 International normalized rat io (INR) measurement by fingerstickOrdered By: Melo Monzon on 07-12-2024 INR Coag (BldC) [Relative time] 1.7 [facility] Comment on above: Critical Value > 4.0 PT Coag (Bld) [Time]Ordered By: Melo Monzon on 07-12-2024 Bedside Prothrombin Time 18.8 SEC High 11.7-14.9 [facility] Whole blood prothrombin time Ordered By: Melo Monzon on 07-12-2024 PT Coag (Bld) [Time] 18.8 s High 11.7-14.9 [facility] International normalized rat io (INR) calculationOrdered By: Melo Monzon on 07-09-2024 INR Coag (Bld) [Relative time] 2.1 {INR} [facility] Prothrombin timeOrdered By: Melo Monzon on 07-09-2024 PT Coag (PPP) [Time] 23.8 s High 11.7-14.9 [facility] INR Coag (BldC) [Relative ti me]Ordered By: Melo Monzon on 07-08-2024 INR Coag (Bld) [Relative time] 1.9 {INR} [facility] Comment on above: Critical Value > 4.0 International normalized rat io (INR) measurement by fingerstickOrdered By: Melo Monzon on 07-08-2024 INR Coag (BldC) [Relative time] 1.9 [facility] Comment on above: Critical Value > 4.0 PT Coag (Bld) [Time]Ordered By: Melo Monzon on 07-08-2024 Bedside Prothrombin Time 21.2 SEC High 11.7-14.9 [facility] Whole blood prothrombin time Ordered By: Melo Monzon on 07-08-2024 PT Coag (Bld) [Time] 21.2 s High 11.7-14.9 [facility] INR Coag (BldC) [Relative ti me]Ordered By: Melo Monzon on 07-05-2024 INR Coag (Bld) [Relative time] 1.2 {INR} [facility] Comment on above: Critical Value > 4.0 International normalized rat io (INR) measurement by fingerstickOrdered By: Melo Monzon on 07-05-2024 INR Coag (BldC) [Relative time] 1.2 [facility] Comment on above: Critical Value > 4.0 PT Coag (Bld) [Time]Ordered By: Melo Monzon on 07-05-2024 Bedside Prothrombin Time 14.0 SEC 11.7-14.9 [facility] Whole blood prothrombin time Ordered By: Melo Monzon on 07-05-2024 PT Coag (Bld) [Time] 14.0 s 11.7-14.9 [facility] International normalized rat io (INR) calculationOrdered By: Melo Monzon on 07-04-2024 INR Coag (Bld) [Relative time] 1.3 {INR} [facility] Prothrombin timeOrdered By: Melo Monzon on 07-04-2024 PT Coag (PPP) [Time] 16.4 s High 11.7-14.9 [facility] INR Coag (BldC) [Relative ti me]Ordered By: Melo Monzon on 07-03-2024 INR Coag (Bld) [Relative time] 1.1 {INR} [facility] Comment on above: Critical Value > 4.0 International normalized rat io (INR) measurement by fingerstickOrdered By: Melo Monzon on 07-03-2024 INR Coag (BldC) [Relative time] 1.1 [facility] Comment on above: Critical Value > 4.0 PT Coag (Bld) [Time]Ordered By: Melo Monzon on 07-03-2024 Bedside Prothrombin Time 13.5 SEC 11.7-14.9 [facility] Whole blood prothrombin time Ordered By: Melo Monzon on 07-03-2024 PT Coag (Bld) [Time] 13.5 s 11.7-14.9 [facility] International normalized rat io (INR) calculationOrdered By: Melo Monzon on 07-02-2024 INR Coag (Bld) [Relative time] 1.1 {INR} [facility] Prothrombin timeOrdered By: Melo Monzon on 07-02-2024 PT Coag (PPP) [Time] 14.7 s 11.7-14.9 [facility] INR Coag (BldC) [Relative ti me]Ordered By: Melo Monzon on 07-01-2024 INR Coag (Bld) [Relative time] 1.2 {INR} [facility] Comment on above: Critical Value > 4.0 International normalized rat io (INR) measurement by fingerstickOrdered By: Melo Monzon on 07-01-2024 INR Coag (BldC) [Relative time] 1.2 [facility] Comment on above: Critical Value > 4.0 PT Coag (Bld) [Time]Ordered By: Melo Monzon on 07-01-2024 Bedside Prothrombin Time 13.8 SEC 11.7-14.9 [facility] Whole blood prothrombin time Ordered By: Melo Monzon on 07-01-2024 PT Coag (Bld) [Time] 13.8 s 11.7-14.9 [facility] Absolute lymphocyte countOrd ered By: Melo Monzon on 06-17-2024 Lymphocytes Auto (Unsp spec) [#/Vol] 1.14 10*3/uL 0.83-4.51 [facility] Absolute neutrophil countOrd ered By: Melo Monzon on 06-17-2024 Neutrophils (Bld) [#/Vol] 3.1 10*3/uL 2.0-7.7 [facility] Albumin to globulin ratioOrd ered By: Melo Monzon on 06-17-2024 Albumin/Globulin [Mass ratio] 1.0 {ratio} 0.9-2.4 [facility] Automated lymphocyte count a s percentage of total leukocytesOrdered By: Melo Monzon on 06-17-2024 Lymphocytes/100 WBC Auto (Unsp spec) 23.9 % 19-41 [facility] Basophil percentageOrdered B y: Melo Monzon on 06-17-2024 Basophils/100 WBC (Bld) 0.6 % 0-1 [facility] Bilirubin, totalOrdered By: Melo Monzon on 06-17-2024 Bilirubin [Mass/Vol] 0.50 mg/dL 0.20-1.00 [facility] Comment on above: For patients on eltr ombopag therapy, use of [place] TBIL is not recommended. Blood urea nitrogen (BUN)/cr eatinine ratioOrdered By: Melo Monzon on 06-17-2024 Urea nitrogen/Creatinine [Mass ratio] 20.8 mg/mg High 10- [facility] Carbon dioxide measurementOr dered By: Melo Monzon on 06-17-2024 CO2 [Moles/Vol] 29.0 mmol/L 21.0-32.0 [facility] Chloride measurementOrdered By: Melo Monzon on 06-17-2024 Chloride [Moles/Vol] 107 mmol/L 98-107 [facility] Eosinophil percentageOrdered By: Melo Monzon on 06-17-2024 Eosinophils/100 WBC (Bld) 2.5 % 0-5 [facility] Erythrocyte distribution wid th ratioOrdered By: Melo Monzon on 06-17-2024 Erythrocyte distribution width (RBC) [Ratio] 12.5 % 11.6-14.6 [facility] Erythrocyte distribution wid th standard deviationOrdered By: Melo Monzon on 06-17-2024 Erythrocyte distribution width (RBC) [Entitic vol] 43.2 fL 35.1-43.9 [facility] Erythrocyte distribution width (RBC) [Ratio] 43.2 fl 35.1-43.9 [facility] Estimated glomerular filtrat ion rate (GFR) AmericanOrdered By: Melo Monzon on 06-17-2024 Estimated GFR (MDRD) Amer 116 mL/min >60 [facility] Comment on above: GFR Calc Glomerular filtration rate ( GFR) estimationOrdered By: Melo Monzon on 06-17-2024 Estimated GFR (MDRD) Non-Af Amer 96 mL/min >60 [facility] Comment on above: Non- GFR Calc GFR/1.73 sq M.predicted among non-blacks MDRD (S/P/Bld) [Vol rate/Area] 96 mL/min/{1.73_m2} >60 [facility] Comment on above: Non- GFR Calc Glucose measurementOrdered B y: Melo Monzon on 06-17-2024 Glucose [Mass/Vol] 113 mg/dL High 74-106 [facility] Comment on above: Fasting Glucose resu lt from 100 to 125 mg/dL suggests IMPAIRED HOMEOSTASIS per A.D.A. criteria. Hematocrit Auto (Bld) [Volum e fraction]Ordered By: Melo Monzon on 06-17-2024 Hematocrit (Bld) [Volume fraction] 37.9 % 37-47 [facility] Hemoglobin measurementOrdere d By: Melo Monzon on 06-17-2024 Hemoglobin (Bld) [Mass/Vol] 12.1 g/dL 12.0-15.0 [facility] Immature granulocytes/100 WB C Auto (Bld)Ordered By: Melo Monzon on 06-17-2024 Immature granulocytes/100 WBC (Bld) 0.200 % 0.0-0.9 [facility] Comment on above: IG% - Immature Granu locytes (promyelocytes, myelocytes and metamyelocytes) > 1% indicates that a LEFT SHIFT is Present. Laboratory - Chemistry and C hemistry - challengeOrdered By: Melo Monzon on 06-17-2024 AST [Catalytic activity/Vol] 16 U/L 15-37 [facility] Lymphocytes Auto (Unsp spec) [#/Vol]Ordered By: Melo Monzon on 06-17-2024 Lymphocytes (Bld) [#/Vol] 1.14 10*3/uL 0.83-4.51 [facility] Lymphocytes/100 WBC Auto (Un sp spec)Ordered By: Melo Monzon on 06-17-2024 Lymphocytes/100 WBC (Bld) 23.9 % 19-41 [facility] MCV (mean corpuscular volume ) determinationOrdered By: Melo Monzon on 06-17-2024 MCV (RBC) [Entitic vol] 94.0 fL 81-99 [facility] Mean corpuscular hemoglobin (MCH) determinationOrdered By: Melo Monzon on 06-17-2024 MCH (RBC) [Entitic mass] 30.0 pg 27.0-32.0 [facility] Mean corpuscular hemoglobin concentration (MCHC) determinationOrdered By: Melo Monzon on 06-17-2024 MCHC (RBC) [Mass/Vol] 31.9 g/dL Low 32-36 [facility] Mean platelet volume determi nationOrdered By: Melo Monzon on 06-17-2024 Platelet mean volume (Bld) [Entitic vol] 10.1 fL 6.2-12.0 [facility] Monocyte percentageOrdered B y: Melo Monzon on 06-17-2024 Monocytes/100 WBC (Bld) 8.0 % 0-10 [facility] Neutrophil percentageOrdered By: Melo Monzon on 06-17-2024 Neutrophils/100 WBC (Bld) 64.8 % 47-70 [facility] Nucleated red blood cell per centageOrdered By: Melo Monzon on 06-17-2024 Nucleated RBC/100 WBC (Bld) [Ratio] 0 % 0-5 [facility] Platelet countOrdered By: Bennie Monzon on 06-17-2024 Platelets (Bld) [#/Vol] 188 10*3/uL 150-450 [facility] Potassium measurementOrdered By: Melo Monzon on 06-17-2024 Potassium [Moles/Vol] 4.3 mmol/L 3.5-5.1 [facility] RBC Auto (Bld) [#/Vol]Ordere d By: Melo Monzon on 06-17-2024 RBC (Bld) [#/Vol] 4.03 10*6/uL Low 4.2-5.4 [facility] Serum anion gap measurementO rdered By: Melo Monzon on 06-17-2024 Anion gap [Moles/Vol] 3 mmol/L Low 5-15 [facility] Serum globulin measurementOr dered By: Melo Monzon on 06-17-2024 Globulin (S) [Mass/Vol] 3.2 g/dL 2.2-4.2 [facility] Serum or plasma alanine dudley otransferase (ALT) measurementOrdered By: Melo Monzon on 06-17-2024 ALT [Catalytic activity/Vol] 7 U/L Low 13-56 [facility] Serum or plasma albumin josué urement (mass/volume)Ordered By: Melo Monzon on 06-17-2024 Albumin [Mass/Vol] 3.1 g/dL Low 3.2-5.0 [facility] Serum or plasma alkaline juventino sphatase measurementOrdered By: Melo Monzon on 06-17-2024 ALP [Catalytic activity/Vol] 56 U/L 45-117 [facility] Serum or plasma calcium josué urement (mass/volume)Ordered By: Melo Monzon on 06-17-2024 Calcium [Mass/Vol] 8.9 mg/dL 8.5-10.1 [facility] Serum or plasma creatinine m easurement (mass/volume)Ordered By: Melo Monzon on 06-17-2024 Creatinine [Mass/Vol] 0.62 mg/dL 0.55-1.02 [facility] Comment on above: The validity of the calculated GFR & GFRAA in patients over 70 years has not been determined. Clinical correlation is essential. Serum or plasma urea nitroge n measurement (mass/volume)Ordered By: Melo Monzon on 06-17-2024 Urea nitrogen [Mass/Vol] 13 mg/dL 7-18 [facility] Sodium levelOrdered By: Neo Monzon on 06-17-2024 Sodium [Moles/Vol] 140 mmol/L 136-145 [facility] Total proteinOrdered By: Enoc Monzon on 06-17-2024 Protein [Mass/Vol] 6.3 g/dL Low 6.4-8.2 [facility] White blood cell (WBC) count Ordered By: Melo Monzon on 06-17-2024 WBC (Bld) [#/Vol] 4.8 10*3/uL 4.4-11.0 [facility] Bilirubin Test strip Ql (U)O rdered By: Melo Monzon on 06-16-2024 Bilirubin Ql (U) Negative Negative [facility] Epithelial cells.squamous LM Ql (Urine sed)Ordered By: Melo Monzon on 06-16-2024 Epithelial cells.squamous LM.HPF (Urine sed) [#/Area] 0 /[HPF] 5-10 [facility] Glucose Ql (U)Ordered By: Bennie Monzon on 06-16-2024 Urine Glucose (UA) Normal mg/dl Normal [facility] Ketones Test strip Ql (U)Ord ered By: Melo Monzon on 06-16-2024 Ketones Ql (U) Negative Negative [facility] Microscopic analysis of urin e for red blood cells (RBC)Ordered By: Melo Monzon on 06-16-2024 Microscopic analysis of urine for red blood cells (RBC) 0 SEEN /hpf 0-5 [facility] Urine RBC 0 SEEN /hpf 0-5 [facility] Mucus LM Ql (Urine sed)Order ed By: Melo Monzon on 06-16-2024 Mucus Ql (Urine sed) 0 SEEN /hpf [facility] Nitrite Test strip Ql (U)Ord ered By: Melo Monzon on 06-16-2024 Nitrite Ql (U) Negative Negative [facility] Protein Test strip Ql (U)Ord ered By: Melo Monzon on 06-16-2024 Protein Ql (U) Negative Negative [facility] Squamous epithelial cells de tection in urine sediment by light microscopyOrdered By: Melo Monzon on 06-16-2024 Epithelial cells.squamous LM Ql (Urine sed) 0 SEEN /hpf 5-10 [facility] Urine blood detectionOrdered By: Melo Monzon on 06-16-2024 Urine Occult Blood Negative Negative [facility] Urine clarityOrdered By: Enoc Monzon on 06-16-2024 Clarity (U) Clear Clear [facility] Urine color determinationOrd ered By: Melo Monzon on 06-16-2024 Color (U) Straw Yellow [facility] Urine cultureOrdered By: Enoc Monzon on 06-16-2024 Bacteria identified Cx Nom (U) Culture exhibits no growth. [facility] Bacteria identified Cx Nom (U) Culture exhibits no growth. [facility] Urine glucose detectionOrder ed By: Melo Monzon on 06-16-2024 Glucose Ql (U) Normal mg/dl Normal [facility] Urine leukocyte esterase det ection by dipstickOrdered By: Melo Monzon on 06-16-2024 Leukocyte esterase Test strip Ql (U) Negative Negative [facility] Urine pHOrdered By: Melo flores on 06-16-2024 pH (U) 7.0 [pH] 5.0 - 8.0 [facility] Urine sediment bacteria coun t by microscopy (number/high power field)Ordered By: Melo Monzon on 06-16-2024 Bacteria LM.HPF (Urine sed) [#/Area] 0 /[HPF] None Seen [facility] Urine specific gravity measu rementOrdered By: Melo Monzon on 06-16-2024 Specific gravity (U) [Rel density] 1.005 1.002-1.030 [facility] Urine urobilinogen measureme ntOrdered By: Melo Monzon on 06-16-2024 Urobilinogen Ql (U) Normal mg/dl Normal [facility] Urobilinogen Ql (U)Ordered B y: Melo Monzon on 06-16-2024 Urine Urobilinogen Normal mg/dl Normal [facility] White blood cell countOrdere d By: Melo Monzon on 06-16-2024 Urine WBC 0 SEEN /hpf 0-5 [facility] White blood cell count 0 SEEN /hpf 0-5 [facility] Blood urea nitrogen (BUN)/cr eatinine ratioOrdered By: Melo Monzon on 04-04-2024 Urea nitrogen/Creatinine [Mass ratio] 20.8 mg/mg High 10-20 [facility] Carbon dioxide measurementOr dered By: Melo Monzon on 04-04-2024 CO2 [Moles/Vol] 29.0 mmol/L 21.0-32.0 [facility] Chloride measurementOrdered By: Melo Monzon on 04-04-2024 Chloride [Moles/Vol] 105 mmol/L 98-107 [facility] Direct serum free thyroxine (FT4) measurementOrdered By: Melo Monzon on 04-04-2024 Free T4 [Mass/Vol] 0.92 ng/dL 0.76-1.46 [facility] Erythrocyte distribution wid th ratioOrdered By: Melo Monzon on 04-04-2024 Erythrocyte distribution width (RBC) [Ratio] 12.8 % 11.6-14.6 [facility] Erythrocyte distribution wid th standard deviationOrdered By: Melo Monzon on 04-04-2024 Erythrocyte distribution width (RBC) [Entitic vol] 44.6 fL High 35.1-43.9 [facility] Estimated glomerular filtrat ion rate (GFR) AmericanOrdered By: Melo Monzon on 04-04-2024 Estimated GFR (MDRD) Amer 116 mL/min >60 [facility] Comment on above: GFR Calc Glomerular filtration rate ( GFR) estimationOrdered By: Melo Monzon on 04-04-2024 Estimated GFR (MDRD) Non-Af Amer 96 mL/min >60 [facility] Comment on above: Non- GFR Calc Glucose measurementOrdered B y: Melo Monzon on 04-04-2024 Glucose [Mass/Vol] 102 mg/dL 74-106 [facility] Comment on above: Fasting Glucose resu lt from 100 to 125 mg/dL suggests IMPAIRED HOMEOSTASIS per A.D.A. criteria. Hematocrit Auto (Bld) [Volum e fraction]Ordered By: Melo Monzon on 04-04-2024 Hematocrit (Bld) [Volume fraction] 37.1 % 37-47 [facility] Hemoglobin measurementOrdere d By: Melo Monzon on 04-04-2024 Hemoglobin (Bld) [Mass/Vol] 11.8 g/dL Low 12.0-15.0 [facility] MCV (mean corpuscular volume ) determinationOrdered By: Melo Monzon on 04-04-2024 MCV (RBC) [Entitic vol] 94.9 fL 81-99 [facility] Mean corpuscular hemoglobin (MCH) determinationOrdered By: Melo Monzon on 04-04-2024 MCH (RBC) [Entitic mass] 30.2 pg 27.0-32.0 [facility] Mean corpuscular hemoglobin concentration (MCHC) determinationOrdered By: Melo Monzon on 04-04-2024 MCHC (RBC) [Mass/Vol] 31.8 g/dL Low 32-36 [facility] Mean platelet volume determi nationOrdered By: Melo Monzon on 04-04-2024 Platelet mean volume (Bld) [Entitic vol] 9.4 fL 6.2-12.0 [facility] Platelet countOrdered By: Bennie Monzon on 04-04-2024 Platelets (Bld) [#/Vol] 294 10*3/uL 150-450 [facility] Potassium measurementOrdered By: Melo Monzon on 04-04-2024 Potassium [Moles/Vol] 4.0 mmol/L 3.5-5.1 [facility] RBC Auto (Bld) [#/Vol]Ordere d By: Melo Monzon on 04-04-2024 RBC (Bld) [#/Vol] 3.91 10*6/uL Low 4.2-5.4 [facility] Serum anion gap measurementO rdered By: Melo Monzon on 04-04-2024 Anion gap [Moles/Vol] 3 mmol/L Low 5-15 [facility] Serum or plasma calcium josué urement (mass/volume)Ordered By: Melo Monzon on 04-04-2024 Calcium [Mass/Vol] 8.7 mg/dL 8.5-10.1 [facility] Serum or plasma creatinine m easurement (mass/volume)Ordered By: Melo Monzon on 04-04-2024 Creatinine [Mass/Vol] 0.62 mg/dL 0.55-1.02 [facility] Comment on above: The validity of the calculated GFR & GFRAA in patients over 70 years has not been determined. Clinical correlation is essential. Serum or plasma urea nitroge n measurement (mass/volume)Ordered By: Melo Monzon on 04-04-2024 Urea nitrogen [Mass/Vol] 13 mg/dL 7-18 [facility] Serum prealbumin measurement by immunoassayOrdered By: Melo Monzon on 04-04-2024 Prealbumin [Mass/Vol] 16 mg/dL - [facility] Comment on above: Performed at: [address] [id number] Director: Rolando Bocanegra PhD, Phone: [phone] Sodium levelOrdered By: Neo Monzon on 04-04-2024 Sodium [Moles/Vol] 137 mmol/L 136-145 [facility] TSH QnOrdered By: Melo wyatt on 04-04-2024 Thyroid Stimulating Hormone (TSH) 1.710 uIU/mL 0.358-3.740 [facility] White blood cell (WBC) count Ordered By: Melo Monzon on 04-04-2024 WBC (Bld) [#/Vol] 4.9 10*3/uL 4.4-11.0 [facility] Laboratory - CoagulationOrde red By: Joao Simon on 09-11-2023 INR Coag (Bld) [Relative time] 2.3 {INR} [facility] PT Coag (PPP) [Time] 25.2 s 11.7-14.9 [facility] Capillary blood internationa l normalized ratio (INR)Ordered By: Joao Simon on 08-30-2023 INR Coag (BldC) [Relative time] 1.9 [facility] Comment on above: Critical Value > 4.0 Whole blood prothrombin time Ordered By: Joao Simon on 08-30-2023 PT Coag (Bld) [Time] 19.9 s 11.7-14.9 [facility] Laboratory - CoagulationOrde red By: Joao Simon on 08-09-2023 INR Coag (Bld) [Relative time] 2.7 {INR} [facility] PT Coag (PPP) [Time] 28.2 s 11.7-14.9 [facility] Laboratory - CoagulationOrde red By: Joao Simon on 07-26-2023 INR Coag (Bld) [Relative time] 2.7 {INR} [facility] PT Coag (PPP) [Time] 28.2 s 11.7-14.9 [facility] Laboratory - CoagulationOrde red By: Joao Simon on 07-11-2023 INR Coag (Bld) [Relative time] 2.8 {INR} [facility] PT Coag (PPP) [Time] 30.2 s 11.7-14.9 [facility] Capillary blood internationa l normalized ratio (INR)Ordered By: Joao Simon on 06-28-2023 INR Coag (BldC) [Relative time] 2.6 [facility] Comment on above: Critical Value > 4.0 Whole blood prothrombin time Ordered By: Joao Simon on 06-28-2023 PT Coag (Bld) [Time] 27.9 s 11.7-14.9 [facility] Capillary blood internationa l normalized ratio (INR)Ordered By: Joao Simon on 06-14-2023 INR Coag (BldC) [Relative time] 1.8 [facility] Comment on above: Critical Value > 4.0 Whole blood prothrombin time Ordered By: Joao Simon on 06-14-2023 PT Coag (Bld) [Time] 19.7 s 11.7-14.9 [facility] Laboratory - CoagulationOrde red By: Joao Simon on 05-31-2023 INR Coag (Bld) [Relative time] 2.5 {INR} [facility] Comment on above: Critical Value > 4.0 Whole blood prothrombin time Ordered By: Joao Simon on 05-31-2023 PT Coag (Bld) [Time] 26.7 s 11.7-14.9 [facility] Laboratory - CoagulationOrde red By: Joao Simon on 05-23-2023 INR Coag (Bld) [Relative time] 3.4 {INR} [facility] Comment on above: Critical Value > 4.0 Whole blood prothrombin time Ordered By: Joao Simon on 05-23-2023 PT Coag (Bld) [Time] 36.3 s 11.7-14.9 [facility] Laboratory - CoagulationOrde red By: Joao Simon on 05-08-2023 INR Coag (Bld) [Relative time] 2.4 {INR} [facility] Comment on above: Critical Value > 4.0 Whole blood prothrombin time Ordered By: Joao Simon on 05-08-2023 PT Coag (Bld) [Time] 26.0 s 11.7-14.9 [facility] Laboratory - CoagulationOrde red By: Joao Simon on 04-06-2023 INR Coag (Bld) [Relative time] 2.8 {INR} [facility] Comment on above: Critical Value > 4.0 Whole blood prothrombin time Ordered By: Joao Simon on 04-06-2023 PT Coag (Bld) [Time] 29.8 s 11.7-14.9 [facility] Basophil percentageOrdered B y: Joao Simon on 03-06-2023 Cholesterol [Mass/Vol] 113 mg/dL <200 [facility] Comment on above: <200 mg/dL Desirable 200-240 mg/dL Borderline >240 mg/dL High Risk Triglyceride [Mass/Vol] 82 mg/dL <199 [facility] Comment on above: The drugs N-Acetylcy steine and Metamizole may falsely depress this assay.Serum Triglycerides Reference Interval Normal <150 mg/dL Borderline high 150 - 199 mg/dL High 200 - 499 mg/dL Very High > or = 500 mg/dL WBC (Bld) [#/Vol] 5.8 10*3/uL 4.4-11.0 [facility] Blood erythrocytes count (nu mber/volume)Ordered By: Joao Simon on 03-06-2023 RBC (Bld) [#/Vol] 3.97 10*6/uL 4.2-5.4 [facility] Blood hemoglobin measurement (mass/volume)Ordered By: Joao Simon on 03-06-2023 Hemoglobin (Bld) [Mass/Vol] 12.1 g/dL 12.0-15.0 [facility] Blood platelet mean volumeOr dered By: oJao Simon on 03-06-2023 Platelet mean volume (Bld) [Entitic vol] 10.9 fL 6.2-12.0 [facility] Determination of erythrocyte mean corpuscular volume (MCV)Ordered By: Joao Simon on 03-06-2023 MCV (RBC) [Entitic vol] 96.5 fL 81-99 [facility] Hematocrit Auto (Bld) [Volum e fraction]Ordered By: Joao Simon on 03-06-2023 Hematocrit (Bld) [Volume fraction] 38.3 % 37-47 [facility] Laboratory - Hematology and Cell countsOrdered By: Joao Simon on 03-06-2023 Erythrocyte distribution width (RBC) [Entitic vol] 44.8 fL 35.1-43.9 [facility] Erythrocyte distribution width (RBC) [Ratio] 12.7 % 11.6-14.6 [facility] MCH (RBC) [Entitic mass] 30.5 pg 27.0-32.0 [facility] MCHC Auto (RBC) [Mass/Vol]Or dered By: Joao Simon on 03-06-2023 MCHC (RBC) [Mass/Vol] 31.6 g/dL 32-36 [facility] No Panel InformationOrdered By: Joao Simon on 03-06-2023 Thyroid Stimulating Hormone (TSH) 1.71 uIU/mL 0.358-3.74 [facility] Platelets bldOrdered By: Brittany Simon on 03-06-2023 Platelets (Bld) [#/Vol] 195 10*3/uL 150-450 [facility] Serum or plasma cholesterol in HDL measurement (mass/volume)Ordered By: Joao Simon on 03-06-2023 Cholesterol in HDL [Mass/Vol] 44 mg/dL >40 [facility] Comment on above: The drugs N-Acetylcy steine and Metamizole may falsely depress this assay. Reference Range HDL <40 mg/dL Low HDL Cholesterol HDL >or= 60 mg/dL High HDL Cholesterol Serum or plasma cholesterol in VLDL measurement (mass/volume)Ordered By: Joao Simon on 03-06-2023 Cholesterol in VLDL [Mass/Vol] 16 mg/dL 5-40 [facility] Serum or plasma low density lipoprotein (LDL) cholesterol measurement (mass/volume)Ordered By: Joao Simon on 03-06-2023 Cholesterol in LDL [Mass/Vol] 53 mg/dL 0-130 [facility] - CoagulationOrde red By: Joao Simon on 02-21-2023 INR Coag (Bld) [Relative time] 3.1 {INR} [facility] Comment on above: Critical Value > 4.0 Whole blood prothrombin time Ordered By: Joao Simon on 02-21-2023 PT Coag (Bld) [Time] 32.7 s 11.7-14.9 [facility] Laboratory - CoagulationOrde red By: Joao Simon on 02-14-2023 INR Coag (Bld) [Relative time] 1.9 {INR} [facility] Comment on above: Critical Value > 4.0 Whole blood prothrombin time Ordered By: Joao Simon on 02-14-2023 PT Coag (Bld) [Time] 21.2 s 11.7-14.9 [facility] INR in Blood by Coagulation assayOrdered By: Joao Simon on 02-07-2023 INR Coag (Bld) [Relative time] 4.3 {INR} [facility] Laboratory - Chemistry and C hemistry - challengeOrdered By: Joao Simon on 02-07-2023 Cobalamin (Vitamin B12) [Mass/Vol] 243 pg/mL 211-911 [facility] - CoagulationOrde red By: Joao Simon on 02-07-2023 PT Coag (PPP) [Time] 41.7 s 11.7-14.9 [facility] Absolute lymphocyte countOrd ered By: Matt Coy on 02-02-2023 Lymphocytes Auto (Unsp spec) [#/Vol] 1.73 10*3/uL 0.83-4.51 [facility] Basophil percentageOrdered B y: Matt Coy on 02-02-2023 Basophil percentage 0-5 SEEN /hpf 0-5 [facility] Basophils/100 WBC (Bld) 0.6 % 0-1 [facility] Bilirubin [Mass/Vol] 0.30 mg/dL 0.20-1.00 [facility] Comment on above: For patients on eltr ombopag therapy, use of [place] TBIL is not recommended. Chloride [Moles/Vol] 104 mmol/L 98-107 [facility] Eosinophils/100 WBC (Bld) 1.7 % 0-5 [facility] Glucose [Mass/Vol] 133 mg/dL 74-106 [facility] Comment on above: Fasting Glucose resu lt greater than or equal to 126 mg/dL suggests DIABETES MELLITUS per A.D.A. criteria. Neutrophils (Bld) [#/Vol] 4.6 10*3/uL 2.0-7.7 [facility] Neutrophils/100 WBC (Bld) 65.1 % 47-70 [facility] Potassium [Moles/Vol] 4.5 mmol/L 3.5-5.1 [facility] Protein [Mass/Vol] 6.9 g/dL 6.4-8.2 [facility] Sodium [Moles/Vol] 137 mmol/L 136-145 [facility] WBC (Bld) [#/Vol] 7.1 10*3/uL 4.4-11.0 [facility] Bilirubin Test strip Ql (U)O rdered By: Matt Coy on 02-02-2023 Bilirubin Ql (U) Negative Negative [facility] Blood erythrocytes count (nu mber/volume)Ordered By: Matt Coy on 02-02-2023 RBC (Bld) [#/Vol] 4.68 10*6/uL 4.2-5.4 [facility] Blood hemoglobin measurement (mass/volume)Ordered By: Matt Coy on 02-02-2023 Hemoglobin (Bld) [Mass/Vol] 14.3 g/dL 12.0-15.0 [facility] Blood lymphocytes/100 leukoc ytesOrdered By: Matt Coy on 02-02-2023 Lymphocytes/100 WBC (Bld) 24.4 % 19-41 [facility] Blood monocytes/100 leukocyt esOrdered By: Matt Coy on 02-02-2023 Monocytes/100 WBC (Bld) 7.9 % 0-10 [facility] Blood platelet mean volumeOr dered By: Matt Coy on 02-02-2023 Platelet mean volume (Bld) [Entitic vol] 10.3 fL 6.2-12.0 [facility] Determination of erythrocyte mean corpuscular volume (MCV)Ordered By: Matt Coy on 02-02-2023 MCV (RBC) [Entitic vol] 94.0 fL 81-99 [facility] Hematocrit Auto (Bld) [Volum e fraction]Ordered By: Matt Coy on 02-02-2023 Hematocrit (Bld) [Volume fraction] 44.0 % 37-47 [facility] INR in Blood by Coagulation assayOrdered By: Matt Coy on 02-02-2023 INR Coag (Bld) [Relative time] 3.5 {INR} [facility] Ketones Test strip Ql (U)Ord ered By: Matt Coy on 02-02-2023 Ketones Ql (U) Negative Negative [facility] Laboratory - Chemistry and C hemistry - challengeOrdered By: Matt Coy on 02-02-2023 ALP [Catalytic activity/Vol] 73 U/L 45-117 [facility] ALT [Catalytic activity/Vol] 15 U/L 13-56 [facility] CO2 [Moles/Vol] 30.0 mmol/L 21.0-32.0 [facility] Globulin (S) [Mass/Vol] 3.7 g/dL 2.2-4.2 [facility] Lipase [Catalytic activity/Vol] 15 U/L 13-75 [facility] Comment on above: Please note:LIPASE r evised reference range effective 22. New Lipase methodology. Expected to produce lower values than the previous assay method. NEW Reference Range: 13 - 75 U/L Urea nitrogen/Creatinine [Mass ratio] 16.2 mg/mg 10-20 [facility] - CoagulationOrde red By: Matt Coy on 02-02-2023 PT Coag (PPP) [Time] 36.0 s 11.7-14.9 [facility] Laboratory - Hematology and Cell countsOrdered By: Matt Coy on 02-02-2023 Erythrocyte distribution width (RBC) [Entitic vol] 42.9 fL 35.1-43.9 [facility] Erythrocyte distribution width (RBC) [Ratio] 12.5 % 11.6-14.6 [facility] Immature granulocytes/100 WBC (Bld) 0.300 % 0.0-0.9 [facility] Comment on above: IG% - Immature Granu locytes (promyelocytes, myelocytes and metamyelocytes) > 1% indicates that a LEFT SHIFT is Present. MCH (RBC) [Entitic mass] 30.6 pg 27.0-32.0 [facility] Nucleated RBC/100 WBC (Bld) [Ratio] 0 % 0-5 [facility] MCHC Auto (RBC) [Mass/Vol]Or dered By: Matt Coy on 02-02-2023 MCHC (RBC) [Mass/Vol] 32.5 g/dL 32-36 [facility] Mucus LM Ql (Urine sed)Order ed By: Matt Coy on 02-02-2023 Mucus Ql (Urine sed) 1+ /hpf [facility] Nitrite Test strip Ql (U)Ord ered By: Matt Coy on 02-02-2023 Nitrite Ql (U) Negative Negative [facility] No Panel InformationOrdered By: Matt Coy on 02-02-2023 Estimated GFR (MDRD) Amer 106 mL/min >60 [facility] Comment on above: GFR Calc Estimated GFR (MDRD) Non-Af Amer 87 mL/min >60 [facility] Comment on above: Non- GFR Calc Platelets bldOrdered By: Macey jules Anneliese on 02-02-2023 Platelets (Bld) [#/Vol] 216 10*3/uL 150-450 [facility] Protein Test strip Ql (U)Ord ered By: Matt Coy on 02-02-2023 Protein Ql (U) Negative Negative [facility] Serum or plasma albumin josué urement (mass/volume)Ordered By: Matt Coy on 02-02-2023 Albumin [Mass/Vol] 3.2 g/dL 3.2-5.0 [facility] Serum or plasma albumin/glob ulin mass ratioOrdered By: Matt Coy on 02-02-2023 Albumin/Globulin [Mass ratio] 0.9 {ratio} 0.9-2.4 [facility] Serum or plasma calcium josué urement (mass/volume)Ordered By: Matt Coy on 02-02-2023 Calcium [Mass/Vol] 8.9 mg/dL 8.5-10.1 [facility] Serum or plasma creatinine m easurement (mass/volume)Ordered By: Matt Coy on 02-02-2023 Creatinine [Mass/Vol] 0.68 mg/dL 0.55-1.02 [facility] Comment on above: The validity of the calculated GFR & GFRAA in patients over 70 years has not been determined. Clinical correlation is essential. Serum or plasma urea nitroge n measurement (mass/volume)Ordered By: Matt Coy on 02-02-2023 Urea nitrogen [Mass/Vol] 11 mg/dL 7-18 [facility] Squamous epithelial cells de tection in urine sediment by light microscopyOrdered By: Matt Coy on 02-02-2023 Epithelial cells.squamous LM Ql (Urine sed) 0 SEEN /hpf 5-10 [facility] Thin prep Papanicolaou smear with manual screeningOrdered By: Matt Coy on 02-02-2023 Thin prep Papanicolaou smear with manual screening 18 U/L 15-37 [facility] Thin prep Papanicolaou smear with manual screening 3 5-15 [facility] Urine blood detectionOrdered By: Matt Coy on 02-02-2023 RBC Ql (U) 25 /ul Negative [facility] RBC Ql (U) 0-5 SEEN /hpf 0-5 [facility] Urine clarityOrdered By: Macey Coy on 02-02-2023 Clarity (U) Clear Clear [facility] Urine color determinationOrd ered By: Matt Coy on 02-02-2023 Color (U) Yellow Yellow [facility] Urine glucose detectionOrder ed By: Matt Coy on 02-02-2023 Glucose Ql (U) Normal mg/dl Normal [facility] Urine leukocyte esterase det ection by dipstickOrdered By: Matt Coy on 02-02-2023 Leukocyte esterase Test strip Ql (U) 25 /ul Negative [facility] Urine pHOrdered By: Matt jacob on 02-02-2023 pH (U) 6.5 [pH] 5.0 - 8.0 [facility] Urine sediment bacteria coun t by microscopy (number/high power field)Ordered By: Matt Coy on 02-02-2023 Bacteria LM.HPF (Urine sed) [#/Area] 0 /[HPF] None Seen [facility] Urine specific gravity measu rementOrdered By: Matt Coy on 02-02-2023 Specific gravity (U) [Rel density] 1.015 1.002-1.030 [facility] Urobilinogen Auto test strip Ql (U)Ordered By: Matt Coy on 02-02-2023 Urobilinogen Ql (U) Normal mg/dl Normal [facility] Basophil percentageOrdered B y: Joao Simon on 01-03-2023 Sodium [Moles/Vol] 141 mmol/L 136-145 [facility] WBC (Bld) [#/Vol] 5.7 10*3/uL 4.4-11.0 [facility] Blood erythrocytes count (nu mber/volume)Ordered By: Joao Simon on 01-03-2023 RBC (Bld) [#/Vol] 4.44 10*6/uL 4.2-5.4 [facility] Blood hemoglobin measurement (mass/volume)Ordered By: Joao Simon on 01-03-2023 Hemoglobin (Bld) [Mass/Vol] 13.5 g/dL 12.0-15.0 [facility] Blood platelet mean volumeOr dered By: Joao Simon on 01-03-2023 Platelet mean volume (Bld) [Entitic vol] 10.6 fL 6.2-12.0 [facility] Determination of erythrocyte mean corpuscular volume (MCV)Ordered By: Joao Simon on 01-03-2023 MCV (RBC) [Entitic vol] 96.2 fL 81-99 [facility] Hematocrit Auto (Bld) [Volum e fraction]Ordered By: Joao Simon on 01-03-2023 Hematocrit (Bld) [Volume fraction] 42.7 % 37-47 [facility] INR in Blood by Coagulation assayOrdered By: Joao Simon on 01-03-2023 INR Coag (Bld) [Relative time] 2.0 {INR} [facility] - CoagulationOrde red By: Joao Simon on 01-03-2023 PT Coag (PPP) [Time] 23.0 s 11.7-14.9 [facility] Laboratory - Hematology and Cell countsOrdered By: Joao Simon on 01-03-2023 Erythrocyte distribution width (RBC) [Entitic vol] 45.0 fL 35.1-43.9 [facility] Erythrocyte distribution width (RBC) [Ratio] 12.7 % 11.6-14.6 [facility] MCH (RBC) [Entitic mass] 30.4 pg 27.0-32.0 [facility] MCHC Auto (RBC) [Mass/Vol]Or dered By: Joao Simon on 01-03-2023 MCHC (RBC) [Mass/Vol] 31.6 g/dL 32-36 [facility] Platelets bldOrdered By: Brittany Simon on 01-03-2023 Platelets (Bld) [#/Vol] 214 10*3/uL 150-450 [facility] Basophil percentageOrdered B y: Joao Simon on 11-30-2022 Cholesterol [Mass/Vol] 127 mg/dL <200 [facility] Comment on above: <200 mg/dL Desirable 200-240 mg/dL Borderline >240 mg/dL High Risk Sodium [Moles/Vol] 139 mmol/L 136-145 [facility] Triglyceride [Mass/Vol] 73 mg/dL <199 [facility] Comment on above: The drugs N-Acetylcy steine and Metamizole may falsely depress this assay.Serum Triglycerides Reference Interval Normal <150 mg/dL Borderline high 150 - 199 mg/dL High 200 - 499 mg/dL Very High > or = 500 mg/dL INR in Blood by Coagulation assayOrdered By: Joao Simon on 11-30-2022 INR Coag (Bld) [Relative time] 3.3 {INR} [facility] - CoagulationOrde red By: Joao Simon on 11-30-2022 PT Coag (PPP) [Time] 34.0 s 11.7-14.9 [facility] Serum or plasma cholesterol in HDL measurement (mass/volume)Ordered By: Joao Simon on 11-30-2022 Cholesterol in HDL [Mass/Vol] 49 mg/dL >40 [facility] Comment on above: The drugs N-Acetylcy steine and Metamizole may falsely depress this assay. Reference Range HDL <40 mg/dL Low HDL Cholesterol HDL >or= 60 mg/dL High HDL Cholesterol Serum or plasma cholesterol in VLDL measurement (mass/volume)Ordered By: Joao Simon on 11-30-2022 Cholesterol in VLDL [Mass/Vol] 15 mg/dL 5-40 [facility] Serum or plasma low density lipoprotein (LDL) cholesterol measurement (mass/volume)Ordered By: Joao Simon on 11-30-2022 Cholesterol in LDL [Mass/Vol] 63 mg/dL 0-130 [facility] - CoagulationOrde red By: Joao Simon on 11-16-2022 INR Coag (Bld) [Relative time] 3.0 {INR} [facility] Comment on above: Critical Value > 4.0 Whole blood prothrombin time Ordered By: Joao Simon on 11-16-2022 PT Coag (Bld) [Time] 32.0 s 11.7-14.9 [facility] Basophil percentageOrdered B y: Joao Simon on 11-02-2022 Chloride [Moles/Vol] 108 mmol/L 98-107 [facility] Glucose [Mass/Vol] 120 mg/dL 74-106 [facility] Comment on above: Fasting Glucose resu lt from 100 to 125 mg/dL suggests IMPAIRED HOMEOSTASIS per A.D.A. criteria. Potassium [Moles/Vol] 4.8 mmol/L 3.5-5.1 [facility] Sodium [Moles/Vol] 141 mmol/L 136-145 [facility] WBC (Bld) [#/Vol] 6.2 10*3/uL 4.4-11.0 [facility] Blood erythrocytes count (nu mber/volume)Ordered By: Joao Simon on 11-02-2022 RBC (Bld) [#/Vol] 4.44 10*6/uL 4.2-5.4 [facility] Blood hemoglobin measurement (mass/volume)Ordered By: Joao Simon on 11-02-2022 Hemoglobin (Bld) [Mass/Vol] 13.6 g/dL 12.0-15.0 [facility] Blood platelet mean volumeOr dered By: Joao Simon on 11-02-2022 Platelet mean volume (Bld) [Entitic vol] 10.7 fL 6.2-12.0 [facility] Determination of erythrocyte mean corpuscular volume (MCV)Ordered By: Joao Simon on 11-02-2022 MCV (RBC) [Entitic vol] 95.5 fL 81-99 [facility] Hematocrit Auto (Bld) [Volum e fraction]Ordered By: Joao Simon on 11-02-2022 Hematocrit (Bld) [Volume fraction] 42.4 % 37-47 [facility] INR in Blood by Coagulation assayOrdered By: Joao Simon on 11-02-2022 INR Coag (Bld) [Relative time] 2.9 {INR} [facility] Laboratory - Chemistry and C hemistry - challengeOrdered By: Joao Simon on 11-02-2022 CO2 [Moles/Vol] 30.0 mmol/L 21.0-32.0 [facility] Urea nitrogen/Creatinine [Mass ratio] 14.5 mg/mg 10-20 [facility] - CoagulationOrde red By: Joao Simon on 11-02-2022 PT Coag (PPP) [Time] 30.9 s 11.7-14.9 [facility] Laboratory - Hematology and Cell countsOrdered By: Joao Simon on 11-02-2022 Erythrocyte distribution width (RBC) [Entitic vol] 46.2 fL 35.1-43.9 [facility] Erythrocyte distribution width (RBC) [Ratio] 13.1 % 11.6-14.6 [facility] MCH (RBC) [Entitic mass] 30.6 pg 27.0-32.0 [facility] MCHC Auto (RBC) [Mass/Vol]Or dered By: Joao Simon on 11-02-2022 MCHC (RBC) [Mass/Vol] 32.1 g/dL 32-36 [facility] No Panel InformationOrdered By: Joao Simon on 11-02-2022 Estimated GFR (MDRD) Amer 104 mL/min >60 [facility] Comment on above: GFR Calc Estimated GFR (MDRD) Non-Af Amer 86 mL/min >60 [facility] Comment on above: Non- GFR Calc Platelets bldOrdered By: Brittany Simon on 11-02-2022 Platelets (Bld) [#/Vol] 226 10*3/uL 150-450 [facility] Serum or plasma calcium josué urement (mass/volume)Ordered By: Joao Simon on 11-02-2022 Calcium [Mass/Vol] 9.2 mg/dL 8.5-10.1 [facility] Serum or plasma creatinine m easurement (mass/volume)Ordered By: Joao Simon on 11-02-2022 Creatinine [Mass/Vol] 0.69 mg/dL 0.55-1.02 [facility] Comment on above: The validity of the calculated GFR & GFRAA in patients over 70 years has not been determined. Clinical correlation is essential. Serum or plasma urea nitroge n measurement (mass/volume)Ordered By: Joao Simon on 11-02-2022 Urea nitrogen [Mass/Vol] 10 mg/dL 7-18 [facility] Thin prep Papanicolaou smear with manual screeningOrdered By: Joao Simon on 11-02-2022 Thin prep Papanicolaou smear with manual screening 3 5-15 [facility] Basophil percentageOrdered B y: Joao Simon on 10-19-2022 Sodium [Moles/Vol] 140 mmol/L 136-145 [facility] INR in Blood by Coagulation assayOrdered By: Joao Simon on 10-19-2022 INR Coag (Bld) [Relative time] 2.8 {INR} [facility] - CoagulationOrde red By: Joao Simon on 10-19-2022 PT Coag (PPP) [Time] 30.0 s 11.7-14.9 [facility] Laboratory - CoagulationOrde red By: Joao Simon on 10-05-2022 INR Coag (Bld) [Relative time] 1.7 {INR} [facility] Comment on above: Critical Value > 4.0 Whole blood prothrombin time Ordered By: Joao Simon on 10-05-2022 PT Coag (Bld) [Time] 19.0 s 11.7-14.9 [facility] Basophil percentageOrdered B y: Joao Simon on 10-03-2022 Chloride [Moles/Vol] 103 mmol/L 98-107 [facility] Glucose [Mass/Vol] 121 mg/dL 74-106 [facility] Comment on above: Fasting Glucose resu lt from 100 to 125 mg/dL suggests IMPAIRED HOMEOSTASIS per A.D.A. criteria. Potassium [Moles/Vol] 4.3 mmol/L 3.5-5.1 [facility] Sodium [Moles/Vol] 136 mmol/L 136-145 [facility] Laboratory - Chemistry and C hemistry - challengeOrdered By: Joao Simon on 10-03-2022 CO2 [Moles/Vol] 29.0 mmol/L 21.0-32.0 [facility] Urea nitrogen/Creatinine [Mass ratio] 17.3 mg/mg 10-20 [facility] No Panel InformationOrdered By: Joao Simon on 10-03-2022 Estimated GFR (MDRD) Amer 104 mL/min >60 [facility] Comment on above: GFR Calc Estimated GFR (MDRD) Non-Af Amer 86 mL/min >60 [facility] Comment on above: Non- GFR Calc Serum or plasma calcium josué urement (mass/volume)Ordered By: Joao Simon on 10-03-2022 Calcium [Mass/Vol] 9.0 mg/dL 8.5-10.1 [facility] Serum or plasma creatinine m easurement (mass/volume)Ordered By: Joao Simon on 10-03-2022 Creatinine [Mass/Vol] 0.69 mg/dL 0.55-1.02 [facility] Comment on above: The validity of the calculated GFR & GFRAA in patients over 70 years has not been determined. Clinical correlation is essential. Serum or plasma urea nitroge n measurement (mass/volume)Ordered By: Joao Simon on 10-03-2022 Urea nitrogen [Mass/Vol] 12 mg/dL 7-18 [facility] Thin prep Papanicolaou smear with manual screeningOrdered By: Joao Simon on 10-03-2022 Thin prep Papanicolaou smear with manual screening 4 5-15 [facility] Laboratory - CoagulationOrde red By: Joao Simon on 09-28-2022 INR Coag (Bld) [Relative time] 2.2 {INR} [facility] Comment on above: Critical Value > 4.0 Whole blood prothrombin time Ordered By: Joao iSmon on 09-28-2022 PT Coag (Bld) [Time] 24.4 s 11.7-14.9 [facility] Basophil percentageOrdered B y: Joao Simon on 09-20-2022 Chloride [Moles/Vol] 96 mmol/L 98-107 [facility] Glucose [Mass/Vol] 94 mg/dL 74-106 [facility] Potassium [Moles/Vol] 4.4 mmol/L 3.5-5.1 [facility] Sodium [Moles/Vol] 132 mmol/L 136-145 [facility] WBC (Bld) [#/Vol] 6.7 10*3/uL 4.4-11.0 [facility] Blood erythrocytes count (nu mber/volume)Ordered By: Jooa Simon on 09-20-2022 RBC (Bld) [#/Vol] 4.21 10*6/uL 4.2-5.4 [facility] Blood hemoglobin measurement (mass/volume)Ordered By: Joao Simon on 09-20-2022 Hemoglobin (Bld) [Mass/Vol] 13.0 g/dL 12.0-15.0 [facility] Blood platelet mean volumeOr dered By: Joao Simon on 09-20-2022 Platelet mean volume (Bld) [Entitic vol] 10.2 fL 6.2-12.0 [facility] Determination of erythrocyte mean corpuscular volume (MCV)Ordered By: Joao Simon on 09-20-2022 MCV (RBC) [Entitic vol] 91.0 fL 81-99 [facility] Hematocrit Auto (Bld) [Volum e fraction]Ordered By: Joao Simon on 09-20-2022 Hematocrit (Bld) [Volume fraction] 38.3 % 37-47 [facility] Laboratory - Chemistry and C hemistry - challengeOrdered By: Joao Simon on 09-20-2022 CO2 [Moles/Vol] 33.0 mmol/L 21.0-32.0 [facility] Urea nitrogen/Creatinine [Mass ratio] 12.7 mg/mg 10-20 [facility] Laboratory - Hematology and Cell countsOrdered By: Joao Simon on 09-20-2022 Erythrocyte distribution width (RBC) [Entitic vol] 40.4 fL 35.1-43.9 [facility] Erythrocyte distribution width (RBC) [Ratio] 12.1 % 11.6-14.6 [facility] MCH (RBC) [Entitic mass] 30.9 pg 27.0-32.0 [facility] MCHC Auto (RBC) [Mass/Vol]Or dered By: Joao Simon on 09-20-2022 MCHC (RBC) [Mass/Vol] 33.9 g/dL 32-36 [facility] No Panel InformationOrdered By: Joao Simon on 09-20-2022 Estimated GFR (MDRD) Amer 89 mL/min >60 [facility] Comment on above: GFR Calc Estimated GFR (MDRD) Non-Af Amer 74 mL/min >60 [facility] Comment on above: Non- GFR Calc Platelets bldOrdered By: Brittany Simon on 09-20-2022 Platelets (Bld) [#/Vol] 229 10*3/uL 150-450 [facility] Serum or plasma calcium josué urement (mass/volume)Ordered By: Joao Simon on 09-20-2022 Calcium [Mass/Vol] 8.8 mg/dL 8.5-10.1 [facility] Serum or plasma creatinine m easurement (mass/volume)Ordered By: Joao Simon on 09-20-2022 Creatinine [Mass/Vol] 0.79 mg/dL 0.55-1.02 [facility] Comment on above: The validity of the calculated GFR & GFRAA in patients over 70 years has not been determined. Clinical correlation is essential. Serum or plasma urea nitroge n measurement (mass/volume)Ordered By: Joao Simon on 09-20-2022 Urea nitrogen [Mass/Vol] 10 mg/dL 7-18 [facility] Thin prep Papanicolaou smear with manual screeningOrdered By: Joao Simon on 09-20-2022 Thin prep Papanicolaou smear with manual screening 3 5-15 [facility] Culture, urineOrdered By: Rodrick Simon on 09-17-2022 Bacteria identified Cx Nom (U) Positive [facility] Bilirubin Test strip Ql (U)O rdered By: Joao Simon on 09-16-2022 Bilirubin Ql (U) Negative Negative [facility] Culture, urineOrdered By: Rodirck Simon on 09-16-2022 Bacteria identified Cx Nom (U) Positive [facility] Ketones Test strip Ql (U)Ord ered By: Joao Simon on 09-16-2022 Ketones Ql (U) Negative Negative [facility] Nitrite Test strip Ql (U)Ord ered By: Joao Simon on 09-16-2022 Nitrite Ql (U) Negative Negative [facility] Protein Test strip Ql (U)Ord ered By: Joao Simon on 09-16-2022 Protein Ql (U) 15 mg/dl Negative [facility] Urine blood detectionOrdered By: Joao Simon on 09-16-2022 RBC Ql (U) 10 /ul Negative [facility] Urine clarityOrdered By: Brittany Simon on 09-16-2022 Clarity (U) Sl. Cloudy Clear [facility] Urine color determinationOrd ered By: Joao Simon on 09-16-2022 Color (U) Yellow Yellow [facility] Urine glucose detectionOrder ed By: Joao Simon on 09-16-2022 Glucose Ql (U) Normal mg/dl Normal [facility] Urine leukocyte esterase det ection by dipstickOrdered By: Joao Simon on 09-16-2022 Leukocyte esterase Test strip Ql (U) 500 /ul Negative [facility] Urine pHOrdered By: Joao almeida on 09-16-2022 pH (U) 6.0 [pH] 5.0 - 8.0 [facility] Urine specific gravity measu rementOrdered By: Joao Simon on 09-16-2022 Specific gravity (U) [Rel density] 1.020 1.002-1.030 [facility] Urobilinogen Auto test strip Ql (U)Ordered By: Joao Simon on 09-16-2022 Urobilinogen Ql (U) Normal mg/dl Normal [facility] Basophil percentageOrdered B y: Hortensia Unger on 08-29-2022 Cholesterol [Mass/Vol] 126 mg/dL <200 [facility] Comment on above: <200 mg/dL Desirable 200-240 mg/dL Borderline >240 mg/dL High Risk Triglyceride [Mass/Vol] 105 mg/dL <199 [facility] Comment on above: The drugs N-Acetylcy steine and Metamizole may falsely depress this assay.Serum Triglycerides Reference Interval Normal <150 mg/dL Borderline high 150 - 199 mg/dL High 200 - 499 mg/dL Very High > or = 500 mg/dL WBC (Bld) [#/Vol] 6.4 10*3/uL 4.4-11.0 [facility] Blood erythrocytes count (nu mber/volume)Ordered By: Hortensia Unger on 08-29-2022 RBC (Bld) [#/Vol] 4.38 10*6/uL 4.2-5.4 [facility] Blood hemoglobin measurement (mass/volume)Ordered By: Hortensia Unger on 08-29-2022 Hemoglobin (Bld) [Mass/Vol] 13.4 g/dL 12.0-15.0 [facility] Blood platelet mean volumeOr dered By: Hortensia Unger on 08-29-2022 Platelet mean volume (Bld) [Entitic vol] 10.0 fL 6.2-12.0 [facility] Determination of erythrocyte mean corpuscular volume (MCV)Ordered By: Hortensia Unger on 08-29-2022 MCV (RBC) [Entitic vol] 92.9 fL 81-99 [facility] Hematocrit Auto (Bld) [Volum e fraction]Ordered By: Hortensia Unger on 08-29-2022 Hematocrit (Bld) [Volume fraction] 40.7 % 37-47 [facility] INR in Blood by Coagulation assayOrdered By: Hortensia Unger on 08-29-2022 INR Coag (Bld) [Relative time] 1.9 {INR} [facility] Laboratory - CoagulationOrde red By: Hortensia Unger on 08-29-2022 PT Coag (PPP) [Time] 21.3 s 11.7-14.9 [facility] Laboratory - Hematology and Cell countsOrdered By: Hortensia Unger on 08-29-2022 Erythrocyte distribution width (RBC) [Entitic vol] 42.1 fL 35.1-43.9 [facility] Erythrocyte distribution width (RBC) [Ratio] 12.3 % 11.6-14.6 [facility] MCH (RBC) [Entitic mass] 30.6 pg 27.0-32.0 [facility] MCHC Auto (RBC) [Mass/Vol]Or dered By: Hortensia Unger on 08-29-2022 MCHC (RBC) [Mass/Vol] 32.9 g/dL 32-36 [facility] Platelets bldOrdered By: Hortensia Unger on 08-29-2022 Platelets (Bld) [#/Vol] 215 10*3/uL 150-450 [facility] Serum or plasma cholesterol in HDL measurement (mass/volume)Ordered By: Hortensia Unger on 08-29-2022 Cholesterol in HDL [Mass/Vol] 48 mg/dL >40 [facility] Comment on above: The drugs N-Acetylcy steine and Metamizole may falsely depress this assay. Reference Range HDL <40 mg/dL Low HDL Cholesterol HDL >or= 60 mg/dL High HDL Cholesterol Serum or plasma cholesterol in VLDL measurement (mass/volume)Ordered By: Hortensia Unger on 08-29-2022 Cholesterol in VLDL [Mass/Vol] 21 mg/dL 5-40 [facility] Serum or plasma low density lipoprotein (LDL) cholesterol measurement (mass/volume)Ordered By: Hortensia Unger on 08-29-2022 Cholesterol in LDL [Mass/Vol] 57 mg/dL 0-130 [facility] Basophil percentageOrdered B y: Hortensia Unger on 08-08-2022 Sodium [Moles/Vol] 137 mmol/L 136-145 [facility] Basophil percentageOrdered B y: Hortensia Unger on 07-28-2022 Bilirubin [Mass/Vol] 0.30 mg/dL 0.20-1.00 [facility] Comment on above: For patients on eltr ombopag therapy, use of [employer] [place] TBIL is not recommended. Chloride [Moles/Vol] 95 mmol/L 98-107 [facility] Glucose [Mass/Vol] 118 mg/dL 74-106 [facility] Comment on above: Fasting Glucose resu lt from 100 to 125 mg/dL suggests IMPAIRED HOMEOSTASIS per A.D.A. criteria. Potassium [Moles/Vol] 3.5 mmol/L 3.5-5.1 [facility] Protein [Mass/Vol] 7.0 g/dL 6.4-8.2 [facility] Sodium [Moles/Vol] 135 mmol/L 136-145 [facility] WBC (Bld) [#/Vol] 6.4 10*3/uL 4.4-11.0 [facility] Blood erythrocytes count (nu mber/volume)Ordered By: Hortensia Unger on 07-28-2022 RBC (Bld) [#/Vol] 4.56 10*6/uL 4.2-5.4 [facility] Blood hemoglobin measurement (mass/volume)Ordered By: Hortensia Unger on 07-28-2022 Hemoglobin (Bld) [Mass/Vol] 14.0 g/dL 12.0-15.0 [facility] Blood platelet mean volumeOr dered By: Hortensia Unger on 07-28-2022 Platelet mean volume (Bld) [Entitic vol] 10.4 fL 6.2-12.0 [facility] Determination of erythrocyte mean corpuscular volume (MCV)Ordered By: Hortensia Unger on 07-28-2022 MCV (RBC) [Entitic vol] 93.9 fL 81-99 [facility] Hematocrit Auto (Bld) [Volum e fraction]Ordered By: Hortensia Unger on 07-28-2022 Hematocrit (Bld) [Volume fraction] 42.8 % 37-47 [facility] INR in Blood by Coagulation assayOrdered By: Hortensia Unger on 07-28-2022 INR Coag (Bld) [Relative time] 1.7 {INR} [facility] Laboratory - Chemistry and C hemistry - challengeOrdered By: Hortensia Unger on 07-28-2022 ALP [Catalytic activity/Vol] 65 U/L 45-117 [facility] ALT [Catalytic activity/Vol] 25 U/L 13-56 [facility] CO2 [Moles/Vol] 31.0 mmol/L 21.0-32.0 [facility] Globulin (S) [Mass/Vol] 3.7 g/dL 2.2-4.2 [facility] Urea nitrogen/Creatinine [Mass ratio] 14.2 mg/mg 10-20 [facility] Laboratory - CoagulationOrde red By: Hortensia Unger on 07-28-2022 PT Coag (PPP) [Time] 19.5 s 11.7-14.9 [facility] Laboratory - Hematology and Cell countsOrdered By: Hortensia Unger on 07-28-2022 Erythrocyte distribution width (RBC) [Entitic vol] 42.4 fL 35.1-43.9 [facility] Erythrocyte distribution width (RBC) [Ratio] 12.2 % 11.6-14.6 [facility] MCH (RBC) [Entitic mass] 30.7 pg 27.0-32.0 [facility] MCHC Auto (RBC) [Mass/Vol]Or dered By: Hortensia Unger on 07-28-2022 MCHC (RBC) [Mass/Vol] 32.7 g/dL 32-36 [facility] No Panel InformationOrdered By: Hortensia Unger on 07-28-2022 Estimated GFR (MDRD) Amer 101 mL/min >60 [facility] Comment on above: GFR Calc Estimated GFR (MDRD) Non-Af Amer 84 mL/min >60 [facility] Comment on above: Non- GFR Calc Platelets bldOrdered By: Hortensia Unger on 07-28-2022 Platelets (Bld) [#/Vol] 234 10*3/uL 150-450 [facility] Serum or plasma albumin josué urement (mass/volume)Ordered By: Hortensia Unger on 07-28-2022 Albumin [Mass/Vol] 3.3 g/dL 3.2-5.0 [facility] Serum or plasma albumin/glob ulin mass ratioOrdered By: Hortensia Unger on 07-28-2022 Albumin/Globulin [Mass ratio] 0.9 {ratio} 0.9-2.4 [facility] Serum or plasma calcium josué urement (mass/volume)Ordered By: Hortensia Unger on 07-28-2022 Calcium [Mass/Vol] 8.7 mg/dL 8.5-10.1 [facility] Serum or plasma creatinine m easurement (mass/volume)Ordered By: Hortensia Unger on 07-28-2022 Creatinine [Mass/Vol] 0.70 mg/dL 0.55-1.02 [facility] Comment on above: The validity of the calculated GFR & GFRAA in patients over 70 years has not been determined. Clinical correlation is essential. Serum or plasma urea nitroge n measurement (mass/volume)Ordered By: Hortensia Unger on 07-28-2022 Urea nitrogen [Mass/Vol] 10 mg/dL 7-18 [facility] Thin prep Papanicolaou smear with manual screeningOrdered By: Hortensia Unger on 07-28-2022 Thin prep Papanicolaou smear with manual screening 23 U/L 15-37 [facility] Thin prep Papanicolaou smear with manual screening 9 5-15 [facility] Basophil percentageOrdered B y: Hortensia Unger on 07-11-2022 Bilirubin [Mass/Vol] 0.50 mg/dL 0.20-1.00 [facility] Comment on above: For patients on eltr ombopag therapy, use of [place] TBIL is not recommended. Chloride [Moles/Vol] 100 mmol/L 98-107 [facility] Glucose [Mass/Vol] 120 mg/dL 74-106 [facility] Comment on above: Fasting Glucose resu lt from 100 to 125 mg/dL suggests IMPAIRED HOMEOSTASIS per A.D.A. criteria. Potassium [Moles/Vol] 3.8 mmol/L 3.5-5.1 [facility] Protein [Mass/Vol] 7.0 g/dL 6.4-8.2 [facility] Sodium [Moles/Vol] 136 mmol/L 136-145 [facility] WBC (Bld) [#/Vol] 6.2 10*3/uL 4.4-11.0 [facility] Blood erythrocytes count (nu mber/volume)Ordered By: Hortensia Unger on 07-11-2022 RBC (Bld) [#/Vol] 4.39 10*6/uL 4.2-5.4 [facility] Blood hemoglobin measurement (mass/volume)Ordered By: Hortensia Unger on 07-11-2022 Hemoglobin (Bld) [Mass/Vol] 13.4 g/dL 12.0-15.0 [facility] Blood platelet mean volumeOr dered By: Hortensia Unger on 07-11-2022 Platelet mean volume (Bld) [Entitic vol] 10.5 fL 6.2-12.0 [facility] Determination of erythrocyte mean corpuscular volume (MCV)Ordered By: Hortensia Unger on 07-11-2022 MCV (RBC) [Entitic vol] 93.2 fL 81-99 [facility] Hematocrit Auto (Bld) [Volum e fraction]Ordered By: Hortensia Unger on 07-11-2022 Hematocrit (Bld) [Volume fraction] 40.9 % 37-47 [facility] Laboratory - Chemistry and C hemistry - challengeOrdered By: Hortensia Unger on 07-11-2022 ALP [Catalytic activity/Vol] 61 U/L 45-117 [facility] ALT [Catalytic activity/Vol] 21 U/L 13-56 [facility] CO2 [Moles/Vol] 30.0 mmol/L 21.0-32.0 [facility] Globulin (S) [Mass/Vol] 3.6 g/dL 2.2-4.2 [facility] Urea nitrogen/Creatinine [Mass ratio] 13.6 mg/mg 10-20 [facility] Laboratory - Hematology and Cell countsOrdered By: Hortensia Unger on 07-11-2022 Erythrocyte distribution width (RBC) [Entitic vol] 42.7 fL 35.1-43.9 [facility] Erythrocyte distribution width (RBC) [Ratio] 12.5 % 11.6-14.6 [facility] MCH (RBC) [Entitic mass] 30.5 pg 27.0-32.0 [facility] ([facility]) [Mass/Vol]Or dered By: Hortensia Unger on 07-11-2022 MCHC (RBC) [Mass/Vol] 32.8 g/dL 32-36 [facility] No Panel InformationOrdered By: Hortensia Unger on 07-11-2022 Estimated GFR (MDRD) Amer 87 mL/min >60 [facility] Comment on above: GFR Calc Estimated GFR (MDRD) Non-Af Amer 72 mL/min >60 [facility] Comment on above: Non- GFR Calc Platelets bldOrdered By: Hortensia Unger on 07-11-2022 Platelets (Bld) [#/Vol] 224 10*3/uL 150-450 [facility] Serum or plasma albumin josué urement (mass/volume)Ordered By: Hortensia Unger on 07-11-2022 Albumin [Mass/Vol] 3.4 g/dL 3.2-5.0 [facility] Serum or plasma albumin/glob ulin mass ratioOrdered By: Hortensia Unger on 07-11-2022 Albumin/Globulin [Mass ratio] 0.9 {ratio} 0.9-2.4 [facility] Serum or plasma calcium josué urement (mass/volume)Ordered By: Hortensia Unger on 07-11-2022 Calcium [Mass/Vol] 8.9 mg/dL 8.5-10.1 [facility] Serum or plasma creatinine m easurement (mass/volume)Ordered By: Hortensia Unger on 07-11-2022 Creatinine [Mass/Vol] 0.81 mg/dL 0.55-1.02 [facility] Comment on above: The validity of the calculated GFR & GFRAA in patients over 70 years has not been determined. Clinical correlation is essential. Serum or plasma urea nitroge n measurement (mass/volume)Ordered By: Hortensia Unger on 07-11-2022 Urea nitrogen [Mass/Vol] 11 mg/dL 7-18 [facility] Thin prep Papanicolaou smear with manual screeningOrdered By: Hortensia Unger on 07-11-2022 Thin prep Papanicolaou smear with manual screening 23 U/L 15-37 [facility] Thin prep Papanicolaou smear with manual screening 6 5-15 [facility] Basophil percentageOrdered B y: Hortensia Unger on 07-01-2022 Bilirubin [Mass/Vol] 0.40 mg/dL 0.20-1.00 [facility] Comment on above: For patients on eltr ombopag therapy, use of [place] TBIL is not recommended. Chloride [Moles/Vol] 101 mmol/L 98-107 [facility] Glucose [Mass/Vol] 151 mg/dL 74-106 [facility] Comment on above: Fasting Glucose resu lt greater than or equal to 126 mg/dL suggests DIABETES MELLITUS per A.D.A. criteria. Potassium [Moles/Vol] 4.2 mmol/L 3.5-5.1 [facility] Protein [Mass/Vol] 6.3 g/dL 6.4-8.2 [facility] Sodium [Moles/Vol] 137 mmol/L 136-145 [facility] WBC (Bld) [#/Vol] 5.1 10*3/uL 4.4-11.0 [facility] Blood erythrocytes count (nu mber/volume)Ordered By: Hortensia Unger on 07-01-2022 RBC (Bld) [#/Vol] 4.03 10*6/uL 4.2-5.4 [facility] Blood hemoglobin measurement (mass/volume)Ordered By: Hortensia Unger on 07-01-2022 Hemoglobin (Bld) [Mass/Vol] 12.7 g/dL 12.0-15.0 [facility] Blood platelet mean volumeOr dered By: Hortensia Unger on 07-01-2022 Platelet mean volume (Bld) [Entitic vol] 10.1 fL 6.2-12.0 [facility] Determination of erythrocyte mean corpuscular volume (MCV)Ordered By: Hortensia Unger on 07-01-2022 MCV (RBC) [Entitic vol] 92.1 fL 81-99 [facility] Hematocrit Auto (Bld) [Volum e fraction]Ordered By: Hortensia Unger on 07-01-2022 Hematocrit (Bld) [Volume fraction] 37.1 % 37-47 [facility] INR in Blood by Coagulation assayOrdered By: Hortensia Unger on 07-01-2022 INR Coag (Bld) [Relative time] 2.0 {INR} [facility] Laboratory - Chemistry and C hemistry - challengeOrdered By: Hortensia Unger on 07-01-2022 ALP [Catalytic activity/Vol] 55 U/L 45-117 [facility] ALT [Catalytic activity/Vol] 20 U/L 13-56 [facility] CO2 [Moles/Vol] 30.0 mmol/L 21.0-32.0 [facility] Globulin (S) [Mass/Vol] 3.3 g/dL 2.2-4.2 [facility] Urea nitrogen/Creatinine [Mass ratio] 21.0 mg/mg 10-20 [facility] Laboratory - CoagulationOrde red By: Hortensia Unger on 07-01-2022 PT Coag (PPP) [Time] 22.0 s 11.7-14.9 [facility] Laboratory - Hematology and Cell countsOrdered By: Hortensia Unger on 07-01-2022 Erythrocyte distribution width (RBC) [Entitic vol] 42.5 fL 35.1-43.9 [facility] Erythrocyte distribution width (RBC) [Ratio] 12.5 % 11.6-14.6 [facility] MCH (RBC) [Entitic mass] 31.5 pg 27.0-32.0 [facility] MCHC Auto (RBC) [Mass/Vol]Or dered By: Hortensia Unger on 07-01-2022 MCHC (RBC) [Mass/Vol] 34.2 g/dL 32-36 [facility] No Panel InformationOrdered By: Hortensia Unger on 07-01-2022 Estimated GFR (MDRD) Amer 108 mL/min >60 [facility] Comment on above: GFR Calc Estimated GFR (MDRD) Non-Af Amer 89 mL/min >60 [facility] Comment on above: Non- GFR Calc Platelets bldOrdered By: Hortensia Unger on 07-01-2022 Platelets (Bld) [#/Vol] 208 10*3/uL 150-450 [facility] Serum or plasma albumin josué urement (mass/volume)Ordered By: Hortensia Unger on 07-01-2022 Albumin [Mass/Vol] 3.0 g/dL 3.2-5.0 [facility] Serum or plasma albumin/glob ulin mass ratioOrdered By: Hortensia Unger on 07-01-2022 Albumin/Globulin [Mass ratio] 0.9 {ratio} 0.9-2.4 [facility] Serum or plasma calcium josué urement (mass/volume)Ordered By: Hortensia Unger on 07-01-2022 Calcium [Mass/Vol] 8.6 mg/dL 8.5-10.1 [facility] Serum or plasma creatinine m easurement (mass/volume)Ordered By: Hortensia Unger on 07-01-2022 Creatinine [Mass/Vol] 0.67 mg/dL 0.55-1.02 [facility] Comment on above: The validity of the calculated GFR & GFRAA in patients over 70 years has not been determined. Clinical correlation is essential. Serum or plasma urea nitroge n measurement (mass/volume)Ordered By: Hortensia Unger on 07-01-2022 Urea nitrogen [Mass/Vol] 14 mg/dL 7-18 [facility] Thin prep Papanicolaou smear with manual screeningOrdered By: Hortensia Unger on 07-01-2022 Thin prep Papanicolaou smear with manual screening 22 U/L 15-37 [facility] Thin prep Papanicolaou smear with manual screening 6 5-15 [facility] Basophil percentageOrdered B y: Dr. Stephens on 06-17-2022 Cholesterol [Mass/Vol] 112 mg/dL <200 [facility] Comment on above: <200 mg/dL Desirable 200-240 mg/dL Borderline >240 mg/dL High Risk Triglyceride [Mass/Vol] 78 mg/dL <199 [facility] Comment on above: The drugs N-Acetylcy steine and Metamizole may falsely depress this assay.Serum Triglycerides Reference Interval Normal <150 mg/dL Borderline high 150 - 199 mg/dL High 200 - 499 mg/dL Very High > or = 500 mg/dL INR in Blood by Coagulation assayOrdered By: Dr. Stephens on 06-17-2022 INR Coag (Bld) [Relative time] 1.8 {INR} [facility] - CoagulationOrde red By: Dr. Stephens on 06-17-2022 PT Coag (PPP) [Time] 20.2 s 11.7-14.9 [facility] Serum or plasma cholesterol in HDL measurement (mass/volume)Ordered By: Dr. Stephens on 06-17-2022 Cholesterol in HDL [Mass/Vol] 45 mg/dL >40 [facility] Comment on above: The drugs N-Acetylcy steine and Metamizole may falsely depress this assay. Reference Range HDL <40 mg/dL Low HDL Cholesterol HDL >or= 60 mg/dL High HDL Cholesterol Serum or plasma cholesterol in VLDL measurement (mass/volume)Ordered By: Dr. Stephens on 06-17-2022 Cholesterol in VLDL [Mass/Vol] 16 mg/dL 5-40 [facility] Serum or plasma low density lipoprotein (LDL) cholesterol measurement (mass/volume)Ordered By: Dr. Stephens on 06-17-2022 Cholesterol in LDL [Mass/Vol] 51 mg/dL 0-130 [facility] Absolute lymphocyte countOrd ered By: Dr. Davis on 06-16-2022 Lymphocytes Auto (Unsp spec) [#/Vol] 1.94 10*3/uL 0.83-4.51 [facility] Basophil percentageOrdered B y: Dr. Davis on 06-16-2022 Basophils/100 WBC (Bld) 0.8 % 0-1 [facility] Chloride [Moles/Vol] 99 mmol/L 98-107 [facility] Eosinophils/100 WBC (Bld) 3.9 % 0-5 [facility] Glucose [Mass/Vol] 98 mg/dL 74-106 [facility] Neutrophils (Bld) [#/Vol] 3.6 10*3/uL 2.0-7.7 [facility] Neutrophils/100 WBC (Bld) 56.3 % 47-70 [facility] Potassium [Moles/Vol] 4.2 mmol/L 3.5-5.1 [facility] Sodium [Moles/Vol] 135 mmol/L 136-145 [facility] WBC (Bld) [#/Vol] 6.4 10*3/uL 4.4-11.0 [facility] Blood erythrocytes count (nu mber/volume)Ordered By: Dr. Davis on 06-16-2022 RBC (Bld) [#/Vol] 4.32 10*6/uL 4.2-5.4 [facility] Blood hemoglobin measurement (mass/volume)Ordered By: Dr. Davis on 06-16-2022 Hemoglobin (Bld) [Mass/Vol] 13.1 g/dL 12.0-15.0 [facility] Blood lymphocytes/100 leukoc ytesOrdered By: Dr. Davis on 06-16-2022 Lymphocytes/100 WBC (Bld) 30.6 % 19-41 [facility] Blood monocytes/100 leukocyt esOrdered By: Dr. Dvais on 06-16-2022 Monocytes/100 WBC (Bld) 8.2 % 0-10 [facility] Blood platelet mean volumeOr dered By: Dr. Davis on 06-16-2022 Platelet mean volume (Bld) [Entitic vol] 10.1 fL 6.2-12.0 [facility] Determination of erythrocyte mean corpuscular volume (MCV)Ordered By: Dr. Davis on 06-16-2022 MCV (RBC) [Entitic vol] 91.4 fL 81-99 [facility] Hematocrit Auto (Bld) [Volum e fraction]Ordered By: Dr. Davis on 06-16-2022 Hematocrit (Bld) [Volume fraction] 39.5 % 37-47 [facility] INR in Blood by Coagulation assayOrdered By: Dr. Davis on 06-16-2022 INR Coag (Bld) [Relative time] 1.9 {INR} [facility] Laboratory - Chemistry and C hemistry - challengeOrdered By: Dr. Davis on 06-16-2022 CO2 [Moles/Vol] 32.0 mmol/L 21.0-32.0 [facility] Urea nitrogen/Creatinine [Mass ratio] 16.8 mg/mg 10-20 [facility] Laboratory - CoagulationOrde red By: Dr. Davis on 06-16-2022 aPTT Coag (Bld) [Time] 30.2 s 24.1-36.2 [facility] PT Coag (PPP) [Time] 21.0 s 11.7-14.9 [facility] Laboratory - Hematology and Cell countsOrdered By: Dr. Davis on 06-16-2022 Erythrocyte distribution width (RBC) [Entitic vol] 41.0 fL 35.1-43.9 [facility] Erythrocyte distribution width (RBC) [Ratio] 12.3 % 11.6-14.6 [facility] Immature granulocytes/100 WBC (Bld) 0.200 % 0.0-0.9 [facility] Comment on above: IG% - Immature Granu locytes (promyelocytes, myelocytes and metamyelocytes) > 1% indicates that a LEFT SHIFT is Present. MCH (RBC) [Entitic mass] 30.3 pg 27.0-32.0 [facility] Nucleated RBC/100 WBC (Bld) [Ratio] 0 % 0-5 [facility] MCHC Auto (RBC) [Mass/Vol]Or dered By: Dr. Davis on 06-16-2022 MCHC (RBC) [Mass/Vol] 33.2 g/dL 32-36 [facility] No Panel InformationOrdered By: Dr. Davis on 06-16-2022 Estimated Creatinine Clearance Calc 31.60 ml/min [facility] Estimated GFR (MDRD) Amer 100 mL/min >60 [facility] Comment on above: GFR Calc Estimated GFR (MDRD) Non-Af Amer 83 mL/min >60 [facility] Comment on above: Non- GFR Calc Troponin I High Sensitivity 9 pg/mL 3.0-54.0 [facility] Comment on above: Please Note: New Amber t Units and Gender Specific Reference Ranges. For more information see Policy Stat Procedure [place] High Sensitivity Troponin (TNIH) and attachments. Platelets bldOrdered By: Dr. Davis on 06-16-2022 Platelets (Bld) [#/Vol] 233 10*3/uL 150-450 [facility] Serum or plasma calcium josué urement (mass/volume)Ordered By: Dr. Davis on 06-16-2022 Calcium [Mass/Vol] 8.9 mg/dL 8.5-10.1 [facility] Serum or plasma creatinine m easurement (mass/volume)Ordered By: Dr. Davis on 06-16-2022 Creatinine [Mass/Vol] 0.72 mg/dL 0.55-1.02 [facility] Comment on above: The validity of the calculated GFR & GFRAA in patients over 70 years has not been determined. Clinical correlation is essential. Serum or plasma urea nitroge n measurement (mass/volume)Ordered By: Dr. Davis on 06-16-2022 Urea nitrogen [Mass/Vol] 12 mg/dL 7-18 [facility] Thin prep Papanicolaou smear with manual screeningOrdered By: Dr. Davis on 06-16-2022 Thin prep Papanicolaou smear with manual screening 4 5-15 [facility] Basophil percentageOrdered B y: Hortensia Unger on 06-06-2022 Bilirubin [Mass/Vol] 0.30 mg/dL 0.20-1.00 [facility] Comment on above: For patients on eltr ombopag therapy, use of [employer] [place] TBIL is not recommended. Chloride [Moles/Vol] 101 mmol/L 98-107 [facility] Cholesterol [Mass/Vol] 111 mg/dL <200 [facility] Comment on above: <200 mg/dL Desirable 200-240 mg/dL Borderline >240 mg/dL High Risk Glucose [Mass/Vol] 93 mg/dL 74-106 [facility] Potassium [Moles/Vol] 4.0 mmol/L 3.5-5.1 [facility] Protein [Mass/Vol] 6.0 g/dL 6.4-8.2 [facility] Sodium [Moles/Vol] 140 mmol/L 136-145 [facility] Triglyceride [Mass/Vol] 51 mg/dL <199 [facility] Comment on above: The drugs N-Acetylcy steine and Metamizole may falsely depress this assay.Serum Triglycerides Reference Interval Normal <150 mg/dL Borderline high 150 - 199 mg/dL High 200 - 499 mg/dL Very High > or = 500 mg/dL WBC (Bld) [#/Vol] 5.9 10*3/uL 4.4-11.0 [facility] Blood erythrocytes count (nu mber/volume)Ordered By: Hortensia Unger on 06-06-2022 RBC (Bld) [#/Vol] 3.99 10*6/uL 4.2-5.4 [facility] Blood hemoglobin measurement (mass/volume)Ordered By: Hortensia Unger on 06-06-2022 Hemoglobin (Bld) [Mass/Vol] 12.2 g/dL 12.0-15.0 [facility] Blood platelet mean volumeOr dered By: Hortensia Unger on 06-06-2022 Platelet mean volume (Bld) [Entitic vol] 10.5 fL 6.2-12.0 [facility] Determination of erythrocyte mean corpuscular volume (MCV)Ordered By: Hortensia Unger on 06-06-2022 MCV (RBC) [Entitic vol] 92.7 fL 81-99 [facility] Hematocrit Auto (Bld) [Volum e fraction]Ordered By: Hortensia Unger on 06-06-2022 Hematocrit (Bld) [Volume fraction] 37.0 % 37-47 [facility] INR in Blood by Coagulation assayOrdered By: Hortensia Unger on 06-06-2022 INR Coag (Bld) [Relative time] 2.1 {INR} [facility] Laboratory - Chemistry and C hemistry - challengeOrdered By: Hortensia Unger on 06-06-2022 ALP [Catalytic activity/Vol] 54 U/L 45-117 [facility] ALT [Catalytic activity/Vol] 25 U/L 13-56 [facility] CO2 [Moles/Vol] 31.0 mmol/L 21.0-32.0 [facility] Globulin (S) [Mass/Vol] 3.1 g/dL 2.2-4.2 [facility] Urea nitrogen/Creatinine [Mass ratio] 19.7 mg/mg 10-20 [facility] Laboratory - CoagulationOrde red By: Hortensia Unger on 06-06-2022 PT Coag (PPP) [Time] 23.1 s 11.7-14.9 [facility] Laboratory - Hematology and Cell countsOrdered By: Hortensia Unger on 06-06-2022 Erythrocyte distribution width (RBC) [Entitic vol] 43.4 fL 35.1-43.9 [facility] Erythrocyte distribution width (RBC) [Ratio] 12.7 % 11.6-14.6 [facility] MCH (RBC) [Entitic mass] 30.6 pg 27.0-32.0 [facility] MCHC Auto (RBC) [Mass/Vol]Or dered By: Hortensia Unger on 06-06-2022 MCHC (RBC) [Mass/Vol] 33.0 g/dL 32-36 [facility] No Panel InformationOrdered By: Hortensia Unger on 06-06-2022 Estimated GFR (MDRD) Amer 93 mL/min >60 [facility] Comment on above: GFR Calc Estimated GFR (MDRD) Non-Af Amer 77 mL/min >60 [facility] Comment on above: Non- GFR Calc Platelets bldOrdered By: Hortensia Unger on 06-06-2022 Platelets (Bld) [#/Vol] 214 10*3/uL 150-450 [facility] Serum or plasma albumin josué urement (mass/volume)Ordered By: Hortensia Unger on 06-06-2022 Albumin [Mass/Vol] 2.9 g/dL 3.2-5.0 [facility] Serum or plasma albumin/glob ulin mass ratioOrdered By: Hortensia Unger on 06-06-2022 Albumin/Globulin [Mass ratio] 0.9 {ratio} 0.9-2.4 [facility] Serum or plasma calcium josué urement (mass/volume)Ordered By: Hortensia Unger on 06-06-2022 Calcium [Mass/Vol] 8.3 mg/dL 8.5-10.1 [facility] Serum or plasma cholesterol in HDL measurement (mass/volume)Ordered By: Hortensia Unger on 06-06-2022 Cholesterol in HDL [Mass/Vol] 47 mg/dL >40 [facility] Comment on above: The drugs N-Acetylcy steine and Metamizole may falsely depress this assay. Reference Range HDL <40 mg/dL Low HDL Cholesterol HDL >or= 60 mg/dL High HDL Cholesterol Serum or plasma cholesterol in VLDL measurement (mass/volume)Ordered By: oHrtensia Unger on 06-06-2022 Cholesterol in VLDL [Mass/Vol] 10 mg/dL 5-40 [facility] Serum or plasma creatinine m easurement (mass/volume)Ordered By: Hortensia Unger on 06-06-2022 Creatinine [Mass/Vol] 0.76 mg/dL 0.55-1.02 [facility] Comment on above: The validity of the calculated GFR & GFRAA in patients over 70 years has not been determined. Clinical correlation is essential. Serum or plasma low density lipoprotein (LDL) cholesterol measurement (mass/volume)Ordered By: Hortensia Unger on 06-06-2022 Cholesterol in LDL [Mass/Vol] 54 mg/dL 0-130 [facility] Serum or plasma urea nitroge n measurement (mass/volume)Ordered By: Hortensia Unger on 06-06-2022 Urea nitrogen [Mass/Vol] 15 mg/dL 7-18 [facility] Thin prep Papanicolaou smear with manual screeningOrdered By: Hortensia Unger on 06-06-2022 Thin prep Papanicolaou smear with manual screening 21 U/L 15-37 [facility] Thin prep Papanicolaou smear with manual screening 8 5-15 [facility] Basophil percentageOrdered B y: Hortensia Unger on 05-09-2022 Bilirubin [Mass/Vol] 0.50 mg/dL 0.20-1.00 [facility] Comment on above: For patients on eltr ombopag therapy, use of [employer] [place] TBIL is not recommended. Chloride [Moles/Vol] 99 mmol/L 98-107 [facility] Glucose [Mass/Vol] 115 mg/dL 74-106 [facility] Comment on above: Fasting Glucose resu lt from 100 to 125 mg/dL suggests IMPAIRED HOMEOSTASIS per A.D.A. criteria. Potassium [Moles/Vol] 4.1 mmol/L 3.5-5.1 [facility] Protein [Mass/Vol] 6.9 g/dL 6.4-8.2 [facility] Sodium [Moles/Vol] 135 mmol/L 136-145 [facility] WBC (Bld) [#/Vol] 5.8 10*3/uL 4.4-11.0 [facility] Blood erythrocytes count (nu mber/volume)Ordered By: Hortensia Unger on 05-09-2022 RBC (Bld) [#/Vol] 4.41 10*6/uL 4.2-5.4 [facility] Blood hemoglobin measurement (mass/volume)Ordered By: Hortensia Unger on 05-09-2022 Hemoglobin (Bld) [Mass/Vol] 13.4 g/dL 12.0-15.0 [facility] Blood platelet mean volumeOr dered By: Hortensia Unger on 05-09-2022 Platelet mean volume (Bld) [Entitic vol] 10.5 fL 6.2-12.0 [facility] Determination of erythrocyte mean corpuscular volume (MCV)Ordered By: Hortensia Unger on 05-09-2022 MCV (RBC) [Entitic vol] 93.0 fL 81-99 [facility] Hematocrit Auto (Bld) [Volum e fraction]Ordered By: Hortensia Unger on 05-09-2022 Hematocrit (Bld) [Volume fraction] 41.0 % 37-47 [facility] INR in Blood by Coagulation assayOrdered By: Hortensia Unger on 05-09-2022 INR Coag (Bld) [Relative time] 1.8 {INR} [facility] Laboratory - Chemistry and C hemistry - challengeOrdered By: Hortensia Unger on 05-09-2022 ALP [Catalytic activity/Vol] 61 U/L 45-117 [facility] ALT [Catalytic activity/Vol] 29 U/L 13-56 [facility] CO2 [Moles/Vol] 32.0 mmol/L 21.0-32.0 [facility] Globulin (S) [Mass/Vol] 3.7 g/dL 2.2-4.2 [facility] Urea nitrogen/Creatinine [Mass ratio] 15.6 mg/mg 10-20 [facility] - CoagulationOrde red By: Hortensia Unger on 05-09-2022 PT Coag (PPP) [Time] 20.3 s 11.7-14.9 [facility] Laboratory - Hematology and Cell countsOrdered By: Hortensia Unger on 05-09-2022 Erythrocyte distribution width (RBC) [Entitic vol] 42.8 fL 35.1-43.9 [facility] Erythrocyte distribution width (RBC) [Ratio] 12.4 % 11.6-14.6 [facility] MCH (RBC) [Entitic mass] 30.4 pg 27.0-32.0 [facility] MCHC Auto (RBC) [Mass/Vol]Or dered By: Hortensia Unger on 05-09-2022 MCHC (RBC) [Mass/Vol] 32.7 g/dL 32-36 [facility] No Panel InformationOrdered By: Hortensia Unger on 05-09-2022 Estimated GFR (MDRD) Amer 92 mL/min >60 [facility] Comment on above: GFR Calc Estimated GFR (MDRD) Non-Af Amer 76 mL/min >60 [facility] Comment on above: Non- GFR Calc Platelets bldOrdered By: Hortensia Unger on 05-09-2022 Platelets (Bld) [#/Vol] 257 10*3/uL 150-450 [facility] Serum or plasma albumin josué urement (mass/volume)Ordered By: Hortensia Unger on 05-09-2022 Albumin [Mass/Vol] 3.2 g/dL 3.2-5.0 [facility] Serum or plasma albumin/glob ulin mass ratioOrdered By: Hortensia Unger on 05-09-2022 Albumin/Globulin [Mass ratio] 0.9 {ratio} 0.9-2.4 [facility] Serum or plasma calcium josué urement (mass/volume)Ordered By: Hortensia Unger on 05-09-2022 Calcium [Mass/Vol] 8.8 mg/dL 8.5-10.1 [facility] Serum or plasma creatinine m easurement (mass/volume)Ordered By: Hortensia Unger on 05-09-2022 Creatinine [Mass/Vol] 0.77 mg/dL 0.55-1.02 [facility] Comment on above: The validity of the calculated GFR & GFRAA in patients over 70 years has not been determined. Clinical correlation is essential. Serum or plasma urea nitroge n measurement (mass/volume)Ordered By: Hortensia Unger on 05-09-2022 Urea nitrogen [Mass/Vol] 12 mg/dL 7-18 [facility] Thin prep Papanicolaou smear with manual screeningOrdered By: Hortensia Unger on 05-09-2022 Thin prep Papanicolaou smear with manual screening 23 U/L 15-37 [facility] Thin prep Papanicolaou smear with manual screening 4 5-15 [facility] Basophil percentageOrdered B y: Hortensia Unger on 04-07-2022 Bilirubin [Mass/Vol] 0.50 mg/dL 0.20-1.00 [facility] Comment on above: For patients on eltr ombopag therapy, use of [employer] [place] TBIL is not recommended. Chloride [Moles/Vol] 99 mmol/L 98-107 [facility] Glucose [Mass/Vol] 100 mg/dL 74-106 [facility] Comment on above: Fasting Glucose resu lt from 100 to 125 mg/dL suggests IMPAIRED HOMEOSTASIS per A.D.A. criteria. Potassium [Moles/Vol] 3.8 mmol/L 3.5-5.1 [facility] Protein [Mass/Vol] 6.4 g/dL 6.4-8.2 [facility] Sodium [Moles/Vol] 136 mmol/L 136-145 [facility] WBC (Bld) [#/Vol] 5.5 10*3/uL 4.4-11.0 [facility] Blood erythrocytes count (nu mber/volume)Ordered By: Hortensia Unger on 04-07-2022 RBC (Bld) [#/Vol] 4.14 10*6/uL 4.2-5.4 [facility] Blood hemoglobin measurement (mass/volume)Ordered By: Hortensia Unger on 04-07-2022 Hemoglobin (Bld) [Mass/Vol] 13.0 g/dL 12.0-15.0 [facility] Blood platelet mean volumeOr dered By: Hortensia Unger on 04-07-2022 Platelet mean volume (Bld) [Entitic vol] 10.0 fL 6.2-12.0 [facility] Determination of erythrocyte mean corpuscular volume (MCV)Ordered By: Hortensia Unger on 04-07-2022 MCV (RBC) [Entitic vol] 92.0 fL 81-99 [facility] Hematocrit Auto (Bld) [Volum e fraction]Ordered By: Hortensia Unger on 04-07-2022 Hematocrit (Bld) [Volume fraction] 38.1 % 37-47 [facility] INR in Blood by Coagulation assayOrdered By: Hortensia Unger on 04-07-2022 INR Coag (Bld) [Relative time] 2.0 {INR} [facility] Laboratory - Chemistry and C hemistry - challengeOrdered By: Hortensia Unger on 04-07-2022 ALP [Catalytic activity/Vol] 58 U/L 45-117 [facility] ALT [Catalytic activity/Vol] 18 U/L 13-56 [facility] CO2 [Moles/Vol] 29.0 mmol/L 21.0-32.0 [facility] Globulin (S) [Mass/Vol] 3.4 g/dL 2.2-4.2 [facility] Urea nitrogen/Creatinine [Mass ratio] 13.1 mg/mg 10-20 [facility] Laboratory - CoagulationOrde red By: Hortensia Unger on 04-07-2022 PT Coag (PPP) [Time] 22.6 s 11.7-14.9 [facility] Laboratory - Hematology and Cell countsOrdered By: Hortensia Unger on 04-07-2022 Erythrocyte distribution width (RBC) [Entitic vol] 42.2 fL 35.1-43.9 [facility] Erythrocyte distribution width (RBC) [Ratio] 12.6 % 11.6-14.6 [facility] MCH (RBC) [Entitic mass] 31.4 pg 27.0-32.0 [facility] MCHC Auto (RBC) [Mass/Vol]Or dered By: Hortensia Unger on 04-07-2022 MCHC (RBC) [Mass/Vol] 34.1 g/dL 32-36 [facility] No Panel InformationOrdered By: Hortensia Unger on 04-07-2022 Estimated GFR (MDRD) Amer 104 mL/min >60 [facility] Comment on above: GFR Calc Estimated GFR (MDRD) Non-Af Amer 86 mL/min >60 [facility] Comment on above: Non- GFR Calc Platelets bldOrdered By: Hortensia Unger on 04-07-2022 Platelets (Bld) [#/Vol] 219 10*3/uL 150-450 [facility] Serum or plasma albumin josué urement (mass/volume)Ordered By: Hortensia Unger on 04-07-2022 Albumin [Mass/Vol] 3.0 g/dL 3.2-5.0 [facility] Serum or plasma albumin/glob ulin mass ratioOrdered By: Hortensia Unger on 04-07-2022 Albumin/Globulin [Mass ratio] 0.9 {ratio} 0.9-2.4 [facility] Serum or plasma calcium josué urement (mass/volume)Ordered By: Hortensia Unger on 04-07-2022 Calcium [Mass/Vol] 8.7 mg/dL 8.5-10.1 [facility] Serum or plasma creatinine m easurement (mass/volume)Ordered By: Hortensia Unger on 04-07-2022 Creatinine [Mass/Vol] 0.69 mg/dL 0.55-1.02 [facility] Comment on above: The validity of the calculated GFR & GFRAA in patients over 70 years has not been determined. Clinical correlation is essential. Serum or plasma urea nitroge n measurement (mass/volume)Ordered By: Hortensia Unger on 04-07-2022 Urea nitrogen [Mass/Vol] 9 mg/dL 7-18 [facility] Thin prep Papanicolaou smear with manual screeningOrdered By: Hortensia Unger on 04-07-2022 Thin prep Papanicolaou smear with manual screening 17 U/L 15-37 [facility] Thin prep Papanicolaou smear with manual screening 8 5-15 [facility] Culture, urineOrdered By: Isacc Unger on 03-28-2022 Bacteria identified Cx Nom (U) Culture exhibits no growth. [facility] Basophil percentageOrdered B y: Hortensia Unger on 03-26-2022 Basophil percentage 0 SEEN /hpf 0-5 [facility] Bilirubin Test strip Ql (U)O rdered By: Hortensia Unger on 03-26-2022 Bilirubin Ql (U) Negative Negative [facility] Ketones Test strip Ql (U)Ord ered By: Hortensia Unger on 03-26-2022 Ketones Ql (U) Negative Negative [facility] Mucus LM Ql (Urine sed)Order ed By: Hortensia Unger on 03-26-2022 Mucus Ql (Urine sed) 0 SEEN /hpf [facility] Nitrite Test strip Ql (U)Ord ered By: Hortensia Unger on 03-26-2022 Nitrite Ql (U) Negative Negative [facility] Protein Test strip Ql (U)Ord ered By: Hortensia Unger on 03-26-2022 Protein Ql (U) Negative Negative [facility] Squamous epithelial cells de tection in urine sediment by light microscopyOrdered By: Hortensia Unger on 03-26-2022 Epithelial cells.squamous LM Ql (Urine sed) 0 SEEN /hpf 5-10 [facility] Urine blood detectionOrdered By: Hortensia Unger on 03-26-2022 RBC Ql (U) 10 /ul Negative [facility] RBC Ql (U) 0 SEEN /hpf 0-5 [facility] Urine clarityOrdered By: Hortensia Unger on 03-26-2022 Clarity (U) Clear Clear [facility] Urine color determinationOrd ered By: Hortensia Unger on 03-26-2022 Color (U) Yellow Yellow [facility] Urine glucose detectionOrder ed By: Hortensia Unger on 03-26-2022 Glucose Ql (U) Normal mg/dl Normal [facility] Urine leukocyte esterase det ection by dipstickOrdered By: Hortensia Unger on 03-26-2022 Leukocyte esterase Test strip Ql (U) Negative Negative [facility] Urine pHOrdered By: Hortensia Szymanski iff on 03-26-2022 pH (U) 6.5 [pH] 5.0 - 8.0 [facility] Urine sediment bacteria coun t by microscopy (number/high power field)Ordered By: Hortensia Unger on 03-26-2022 Bacteria LM.HPF (Urine sed) [#/Area] 0 /[HPF] None Seen [facility] Urine specific gravity measu rementOrdered By: Hortensia Ungre on 03-26-2022 Specific gravity (U) [Rel density] 1.015 1.002-1.030 [facility] Urobilinogen Auto test strip Ql (U)Ordered By: Hortensia Unger on 03-26-2022 Urobilinogen Ql (U) Normal mg/dl Normal [facility] Culture, urineOrdered By: Isacc Unger on 03-17-2022 Bacteria identified Cx Nom (U) Staphylococcus epidermidis [facility] Laboratory - CoagulationOrde red By: Hortensia Unger on 03-16-2022 INR Coag (Bld) [Relative time] 2.2 {INR} [facility] Comment on above: Critical Value > 4.0 Whole blood prothrombin time Ordered By: Hortensia Unger on 03-16-2022 PT Coag (Bld) [Time] 26.0 s 11.7-14.9 [facility] Bilirubin Test strip Ql (U)O rdered By: Hortensia Unger on 03-15-2022 Bilirubin Ql (U) Negative Negative [facility] Ketones Test strip Ql (U)Ord ered By: Hortensia Unger on 03-15-2022 Ketones Ql (U) Negative Negative [facility] Nitrite Test strip Ql (U)Ord ered By: Hortensia Unger on 03-15-2022 Nitrite Ql (U) Negative Negative [facility] Protein Test strip Ql (U)Ord ered By: Hortensia Unger on 03-15-2022 Protein Ql (U) Negative Negative [facility] Urine blood detectionOrdered By: Hortensia Unger on 03-15-2022 RBC Ql (U) Negative Negative [facility] Urine clarityOrdered By: Hortensia Unger on 03-15-2022 Clarity (U) Clear Clear [facility] Urine color determinationOrd ered By: Hortensia Unger on 03-15-2022 Color (U) Yellow Yellow [facility] Urine glucose detectionOrder ed By: Hortensia Unger on 03-15-2022 Glucose Ql (U) Normal mg/dl Normal [facility] Urine leukocyte esterase det ection by dipstickOrdered By: Hortensia Unger on 03-15-2022 Leukocyte esterase Test strip Ql (U) Negative Negative [facility] Urine pHOrdered By: Hortensia noef on 03-15-2022 pH (U) 7.0 [pH] 5.0 - 8.0 [facility] Urine specific gravity measu rementOrdered By: Hortensia Unger on 03-15-2022 Specific gravity (U) [Rel density] 1.010 1.002-1.030 [facility] Urobilinogen Auto test strip Ql (U)Ordered By: Hortensia Unger on 03-15-2022 Urobilinogen Ql (U) Normal mg/dl Normal [facility] Laboratory - Microbiology an d Antimicrobial susceptibilityOrdered By: Dr. Rios on 03-13-2022 Bacteria identified Cx Nom (Bld) No growth in 5 days. [facility] Culture, urineOrdered By: Dr Jose Rios on 03-10-2022 Bacteria identified Cx Nom (U) Culture exhibits no growth. [facility] Absolute lymphocyte countOrd ered By: Dr. Rios on 03-07-2022 Lymphocytes Auto (Unsp spec) [#/Vol] 2.09 10*3/uL 0.83-4.51 [facility] Basophil percentageOrdered B y: Dr. Rios on 03-07-2022 Basophil percentage 0 SEEN /hpf 0-5 [facility] Basophils/100 WBC (Bld) 0.2 % 0-1 [facility] Bilirubin [Mass/Vol] 0.60 mg/dL 0.20-1.00 [facility] Comment on above: For patients on eltr ombopag therapy, use of [employer] [place] TBIL is not recommended. Chloride [Moles/Vol] 97 mmol/L 98-107 [facility] Eosinophils/100 WBC (Bld) 1.0 % 0-5 [facility] Glucose [Mass/Vol] 122 mg/dL 74-106 [facility] Comment on above: Fasting Glucose resu lt from 100 to 125 mg/dL suggests IMPAIRED HOMEOSTASIS per A.D.A. criteria. Neutrophils (Bld) [#/Vol] 10.6 10*3/uL 2.0-7.7 [facility] Neutrophils/100 WBC (Bld) 73.9 % 47-70 [facility] Potassium [Moles/Vol] 3.6 mmol/L 3.5-5.1 [facility] Protein [Mass/Vol] 7.4 g/dL 6.4-8.2 [facility] Sodium [Moles/Vol] 134 mmol/L 136-145 [facility] WBC (Bld) [#/Vol] 14.3 10*3/uL 4.4-11.0 [facility] Basophil percentageOrdered B y: Hortensia Unger on 03-07-2022 Bilirubin [Mass/Vol] 0.70 mg/dL 0.20-1.00 [facility] Comment on above: For patients on eltr ombopag therapy, use of [employer] [place] TBIL is not recommended. Chloride [Moles/Vol] 95 mmol/L 98-107 [facility] Cholesterol [Mass/Vol] 119 mg/dL <200 [facility] Comment on above: <200 mg/dL Desirable 200-240 mg/dL Borderline >240 mg/dL High Risk Glucose [Mass/Vol] 147 mg/dL 74-106 [facility] Comment on above: Fasting Glucose resu lt greater than or equal to 126 mg/dL suggests DIABETES MELLITUS per A.D.A. criteria. Potassium [Moles/Vol] 3.6 mmol/L 3.5-5.1 [facility] Protein [Mass/Vol] 7.5 g/dL 6.4-8.2 [facility] Sodium [Moles/Vol] 133 mmol/L 136-145 [facility] Triglyceride [Mass/Vol] 81 mg/dL <199 [facility] Comment on above: The drugs N-Acetylcy steine and Metamizole may falsely depress this assay.Serum Triglycerides Reference Interval Normal <150 mg/dL Borderline high 150 - 199 mg/dL High 200 - 499 mg/dL Very High > or = 500 mg/dL WBC (Bld) [#/Vol] 13.6 10*3/uL 4.4-11.0 [facility] Bilirubin Test strip Ql (U)O rdered By: Dr. Rios on 03-07-2022 Bilirubin Ql (U) Negative Negative [facility] Blood erythrocytes count (nu mber/volume)Ordered By: Dr. Rios on 03-07-2022 RBC (Bld) [#/Vol] 4.30 10*6/uL 4.2-5.4 [facility] Blood erythrocytes count (nu mber/volume)Ordered By: Hortensia Unger on 03-07-2022 RBC (Bld) [#/Vol] 4.37 10*6/uL 4.2-5.4 [facility] Blood hemoglobin measurement (mass/volume)Ordered By: Dr. Rios on 03-07-2022 Hemoglobin (Bld) [Mass/Vol] 13.5 g/dL 12.0-15.0 [facility] Blood hemoglobin measurement (mass/volume)Ordered By: Hortensia Unger on 03-07-2022 Hemoglobin (Bld) [Mass/Vol] 13.9 g/dL 12.0-15.0 [facility] Blood lymphocytes/100 leukoc ytesOrdered By: Dr. Rios on 03-07-2022 Lymphocytes/100 WBC (Bld) 14.7 % 19-41 [facility] Blood monocytes/100 leukocyt esOrdered By: Dr. Rios on 03-07-2022 Monocytes/100 WBC (Bld) 9.8 % 0-10 [facility] Blood platelet mean volumeOr dered By: Dr. Rios on 03-07-2022 Platelet mean volume (Bld) [Entitic vol] 10.2 fL 6.2-12.0 [facility] Blood platelet mean volumeOr dered By: Hortensia Unger on 03-07-2022 Platelet mean volume (Bld) [Entitic vol] 10.6 fL 6.2-12.0 [facility] Determination of erythrocyte mean corpuscular volume (MCV)Ordered By: Dr. Rios on 03-07-2022 MCV (RBC) [Entitic vol] 91.2 fL 81-99 [facility] Determination of erythrocyte mean corpuscular volume (MCV)Ordered By: Hortensia Unger on 03-07-2022 MCV (RBC) [Entitic vol] 93.4 fL 81-99 [facility] Direct bilirubinOrdered By: Dr. Rios on 03-07-2022 Bilirubin.direct [Mass/Vol] 0.17 mg/dL 0.00-0.30 [facility] Hematocrit Auto (Bld) [Volum e fraction]Ordered By: Dr. Rios on 03-07-2022 Hematocrit (Bld) [Volume fraction] 39.2 % 37-47 [facility] Hematocrit Auto (Bld) [Volum e fraction]Ordered By: Hortensia Unger on 03-07-2022 Hematocrit (Bld) [Volume fraction] 40.8 % 37-47 [facility] INR in Blood by Coagulation assayOrdered By: Dr. Rios on 03-07-2022 INR Coag (Bld) [Relative time] 5.6 {INR} [facility] Comment on above: CRITICAL VALUE VERIF IED. CALLED TO BJ BENZ03/07/22 Zoe Nath.RESULTS READ BACK BY SAME . INR in Blood by Coagulation assayOrdered By: Hortensia Unger on 03-07-2022 INR Coag (Bld) [Relative time] 4.9 {INR} [facility] Comment on above: CRITICAL VALUE VERIF IED. CALLED TO KHRIS FLORIAN (ALICE)03/07/22 1009 Mono [place].RESULTS READ BACK BY SAME. Influenza virus A and B and SARS-CoV-2 (COVID-19) Ag panel - Upper respiratory specimOrdered By: Dr. Rios on 03-07-2022 SARS-CoV-2 (COVID-19) RNA REMINGTON+probe Ql (Resp) [facility] Ketones Test strip Ql (U)Ord ered By: Dr. Rios on 03-07-2022 Ketones Ql (U) Negative Negative [facility] Laboratory - Chemistry and C hemistry - challengeOrdered By: Dr. Rios on 03-07-2022 ALP [Catalytic activity/Vol] 64 U/L - [facility] ALT [Catalytic activity/Vol] 17 U/L [facility] CO2 [Moles/Vol] 30.0 mmol/L 21.0-32.0 [facility] Globulin (S) [Mass/Vol] 4.1 g/dL 2.2-4.2 [facility] Urea nitrogen/Creatinine [Mass ratio] 17.7 mg/mg 03-17 [facility] Laboratory - Chemistry and C hemistry - challengeOrdered By: Hortensia Unger on 03-07-2022 ALP [Catalytic activity/Vol] 74 U/L [facility] ALT [Catalytic activity/Vol] 22 U/L [facility] CO2 [Moles/Vol] 28.0 mmol/L 21.0-32.0 [facility] Globulin (S) [Mass/Vol] 4.3 g/dL 2.2-4.2 [facility] Urea nitrogen/Creatinine [Mass ratio] 16.1 mg/mg 03-17 [facility] Laboratory - CoagulationOrde red By: Dr. Rios on 03-07-2022 PT Coag (PPP) [Time] 50.6 s 11.7-14.9 [facility] Laboratory - CoagulationOrde red By: Hortensia Unger on 03-07-2022 PT Coag (PPP) [Time] 45.7 s 11.7-14.9 [facility] Laboratory - Hematology and Cell countsOrdered By: Dr. Rios on 03-07-2022 Erythrocyte distribution width (RBC) [Entitic vol] 40.9 fL 35.1-43.9 [facility] Erythrocyte distribution width (RBC) [Ratio] 12.3 % 11.6-14.6 [facility] Immature granulocytes/100 WBC (Bld) 0.400 % 0.0-0.9 [facility] Comment on above: IG% - Immature Granu locytes (promyelocytes, myelocytes and metamyelocytes) > 1% indicates that a LEFT SHIFT is Present. MCH (RBC) [Entitic mass] 31.4 pg 27.0-32.0 [facility] Nucleated RBC/100 WBC (Bld) [Ratio] 0 % 0-5 [facility] Laboratory - Hematology and Cell countsOrdered By: Hortensia Unger on 03-07-2022 Erythrocyte distribution width (RBC) [Entitic vol] 42.1 fL 35.1-43.9 [facility] Erythrocyte distribution width (RBC) [Ratio] 12.2 % 11.6-14.6 [facility] MCH (RBC) [Entitic mass] 31.8 pg 27.0-32.0 [facility] MCHC Auto (RBC) [Mass/Vol]Or dered By: Dr. Rios on 03-07-2022 MCHC (RBC) [Mass/Vol] 34.4 g/dL 32-36 [facility] MCHC Auto (RBC) [Mass/Vol]Or dered By: Hortensia Unger on 03-07-2022 MCHC (RBC) [Mass/Vol] 34.1 g/dL 32-36 [facility] Mucus LM Ql (Urine sed)Order ed By: Dr. Rios on 03-07-2022 Mucus Ql (Urine sed) 0 SEEN /hpf [facility] Nitrite Test strip Ql (U)Ord ered By: Dr. Rios on 03-07-2022 Nitrite Ql (U) Negative Negative [facility] No Panel InformationOrdered By: Dr. Rios on 03-07-2022 Estimated Creatinine Clearance Calc 31.60 ml/min [facility] Estimated GFR (MDRD) Amer 97 mL/min >60 [facility] Comment on above: GFR Calc Estimated GFR (MDRD) Non-Af Amer 80 mL/min >60 [facility] Comment on above: Non- GFR Calc Troponin I High Sensitivity 9 pg/mL 3.0-54.0 [facility] Comment on above: Please Note: New Amber t Units and Gender Specific Reference Ranges. For more information see Policy Stat Procedure [place] High Sensitivity Troponin (TNIH) and attachments. No Panel InformationOrdered By: Hortensia Unger on 03-07-2022 Estimated GFR (MDRD) Amer 95 mL/min >60 [facility] Comment on above: GFR Calc Estimated GFR (MDRD) Non-Af Amer 79 mL/min >60 [facility] Comment on above: Non- GFR Calc Platelets bldOrdered By: Dr. Rios on 03-07-2022 Platelets (Bld) [#/Vol] 229 10*3/uL 150-450 [facility] Platelets bldOrdered By: Hortensia Unger on 03-07-2022 Platelets (Bld) [#/Vol] 223 10*3/uL 150-450 [facility] Protein Test strip Ql (U)Ord ered By: Dr. Rios on 03-07-2022 Protein Ql (U) Negative Negative [facility] Serum or plasma albumin josué urement (mass/volume)Ordered By: Dr. Rios on 03-07-2022 Albumin [Mass/Vol] 3.3 g/dL 3.2-5.0 [facility] Serum or plasma albumin josué urement (mass/volume)Ordered By: Hortensia Unger on 03-07-2022 Albumin [Mass/Vol] 3.2 g/dL 3.2-5.0 [facility] Serum or plasma albumin/glob ulin mass ratioOrdered By: Hortensia Unger on 03-07-2022 Albumin/Globulin [Mass ratio] 0.7 {ratio} 0.9-2.4 [facility] Serum or plasma calcium josué urement (mass/volume)Ordered By: Dr. Rios on 03-07-2022 Calcium [Mass/Vol] 9.0 mg/dL 8.5-10.1 [facility] Serum or plasma calcium josué urement (mass/volume)Ordered By: Hortensia Unger on 03-07-2022 Calcium [Mass/Vol] 8.9 mg/dL 8.5-10.1 [facility] Serum or plasma cholesterol in HDL measurement (mass/volume)Ordered By: Hortensia Unger on 03-07-2022 Cholesterol in HDL [Mass/Vol] 57 mg/dL >40 [facility] Comment on above: The drugs N-Acetylcy steine and Metamizole may falsely depress this assay. Reference Range HDL <40 mg/dL Low HDL Cholesterol HDL >or= 60 mg/dL High HDL Cholesterol Serum or plasma cholesterol in VLDL measurement (mass/volume)Ordered By: Hortensia Unger on 03-07-2022 Cholesterol in VLDL [Mass/Vol] 16 mg/dL 5-40 [facility] Serum or plasma creatinine m easurement (mass/volume)Ordered By: Dr. Rios on 03-07-2022 Creatinine [Mass/Vol] 0.73 mg/dL 0.55-1.02 [facility] Comment on above: The validity of the calculated GFR & GFRAA in patients over 70 years has not been determined. Clinical correlation is essential. Serum or plasma creatinine m easurement (mass/volume)Ordered By: Hortensia Unger on 03-07-2022 Creatinine [Mass/Vol] 0.75 mg/dL 0.55-1.02 [facility] Comment on above: The validity of the calculated GFR & GFRAA in patients over 70 years has not been determined. Clinical correlation is essential. Serum or plasma low density lipoprotein (LDL) cholesterol measurement (mass/volume)Ordered By: Hortensia Unger on 03-07-2022 Cholesterol in LDL [Mass/Vol] 46 mg/dL 0-130 [facility] Serum or plasma urea nitroge n measurement (mass/volume)Ordered By: Dr. Rios on 03-07-2022 Urea nitrogen [Mass/Vol] 13 mg/dL 7-18 [facility] Serum or plasma urea nitroge n measurement (mass/volume)Ordered By: Hortensia Unger on 03-07-2022 Urea nitrogen [Mass/Vol] 12 mg/dL 7-18 [facility] Squamous epithelial cells de tection in urine sediment by light microscopyOrdered By: Dr. Rios on 03-07-2022 Epithelial cells.squamous LM Ql (Urine sed) 0-5 SEEN /hpf 5-10 [facility] Thin prep Papanicolaou smear with manual screeningOrdered By: Dr. Rios on 03-07-2022 Thin prep Papanicolaou smear with manual screening 15 U/L 15- [facility] Thin prep Papanicolaou smear with manual screening 7 5-15 [facility] Thin prep Papanicolaou smear with manual screeningOrdered By: Hortensia Unger on 03-07-2022 Thin prep Papanicolaou smear with manual screening 20 U/L 15-37 [facility] Thin prep Papanicolaou smear with manual screening 10 5-15 [facility] Urine blood detectionOrdered By: Dr. Rios on 03-07-2022 RBC Ql (U) 25 /ul Negative [facility] RBC Ql (U) 5-10 SEEN /hpf 0-5 [facility] Urine clarityOrdered By: Dr. Rios on 03-07-2022 Clarity (U) Clear Clear [facility] Urine color determinationOrd ered By: Dr. Rios on 03-07-2022 Color (U) Yellow Yellow [facility] Urine glucose detectionOrder ed By: Dr. Rios on 03-07-2022 Glucose Ql (U) Normal mg/dl Normal [facility] Urine leukocyte esterase det ection by dipstickOrdered By: Dr. Rios on 03-07-2022 Leukocyte esterase Test strip Ql (U) Negative Negative [facility] Urine pHOrdered By: Dr. Ricky ortiz on 03-07-2022 pH (U) 6.5 [pH] 5.0 - 8.0 [facility] Urine sediment bacteria coun t by microscopy (number/high power field)Ordered By: Dr. Rios on 03-07-2022 Bacteria LM.HPF (Urine sed) [#/Area] RARE /hpf None Seen [facility] Urine specific gravity measu rementOrdered By: Dr. Rios on 03-07-2022 Specific gravity (U) [Rel density] 1.010 1.002-1.030 [facility] Urobilinogen Auto test strip Ql (U)Ordered By: Dr. Rios on 03-07-2022 Urobilinogen Ql (U) 1 mg/dl Normal [facility] Laboratory - Coagulationon 0 9-08-2022 INR Coag (Bld) [Relative time] 2.1 {INR} [facility] Work Phone: Comment on above: Critical Value > 4.0 Whole blood prothrombin time on 02-03-2022 PT Coag (Bld) [Time] 24.8 s 11.7-14.9 [facility] Work Phone: Laboratory - Coagulationon 0 01-06-2022 INR Coag (Bld) [Relative time] 2.2 {INR} [facility] Work Phone: Comment on above: Critical Value > 4.0 Whole blood prothrombin time on 01-06-2022 PT Coag (Bld) [Time] 25.9 s 11.7-14.9 [facility] Work Phone: Laboratory - Coagulationon 0 12-20-2021 INR Coag (Bld) [Relative time] 2.1 {INR} [facility] Work Phone: Comment on above: Critical Value > 4.0 Whole blood prothrombin time on 12-20-2021 PT Coag (Bld) [Time] 25.2 s 11.7-14.9 [facility] Work Phone: Laboratory - Coagulationon 0 12-13-2021 INR Coag (Bld) [Relative time] 1.4 {INR} [facility] Work Phone: Comment on above: Critical Value > 4.0 Whole blood prothrombin time on 12-13-2021 PT Coag (Bld) [Time] 17.2 s 11.7-14.9 [facility] Work Phone: Basophil percentageon 2021 Chloride [Moles/Vol] 98 mmol/L 98-107 [facility] Work Phone: Cholesterol [Mass/Vol] 114 mg/dL <200 [facility] Work Phone: Comment on above: <200 mg/dL Desirable 200-240 mg/dL Borderline >240 mg/dL High Risk Glucose [Mass/Vol] 111 mg/dL 74-106 [facility] Work Phone: Comment on above: Fasting Glucose resu lt from 100 to 125 mg/dL suggests IMPAIRED HOMEOSTASIS per A.D.A. criteria. Potassium [Moles/Vol] 3.7 mmol/L 3.5-5.1 [facility] Work Phone: Sodium [Moles/Vol] 135 mmol/L 136-145 [facility] Work Phone: Triglyceride [Mass/Vol] 61 mg/dL <199 [facility] Work Phone: Comment on above: The drugs N-Acetylcy steine and Metamizole may falsely depress this assay.Serum Triglycerides Reference Interval Normal <150 mg/dL Borderline high 150 - 199 mg/dL High 200 - 499 mg/dL Very High > or = 500 mg/dL WBC (Bld) [#/Vol] 5.9 10*3/uL 4.4-11.0 [facility] Work Phone: Blood erythrocytes count (nu mber/volume)on 12-10-2021 RBC (Bld) [#/Vol] 3.91 10*6/uL 4.2-5.4 [facility] Work Phone: Blood hemoglobin measurement (mass/volume)on 12-10-2021 Hemoglobin (Bld) [Mass/Vol] 12.4 g/dL 12.0-15.0 [facility] Work Phone: Blood platelet mean volumeon 12-10-2021 Platelet mean volume (Bld) [Entitic vol] 10.3 fL 6.2-12.0 [facility] Work Phone: Determination of erythrocyte mean corpuscular volume (MCV)on 12-10-2021 MCV (RBC) [Entitic vol] 92.1 fL 81-99 [facility] Work Phone: Hematocrit Auto (Bld) [Volum e fraction]on 12-10-2021 Hematocrit (Bld) [Volume fraction] 36.0 % 37-47 [facility] Work Phone: Laboratory - Chemistry and C hemistry - challengeon 12-10-2021 CO2 [Moles/Vol] 32.0 mmol/L 21.0-32.0 [facility] Work Phone: Urea nitrogen/Creatinine [Mass ratio] 18.8 mg/mg 10-20 [facility] Work Phone: Laboratory - Hematology and Cell countson 12-10-2021 Erythrocyte distribution width (RBC) [Entitic vol] 41.1 fL 35.1-43.9 [facility] Work Phone: Erythrocyte distribution width (RBC) [Ratio] 12.3 % 11.6-14.6 [facility] Work Phone: MCH (RBC) [Entitic mass] 31.7 pg 27.0-32.0 [facility] Work Phone: MCHC Auto (RBC) [Mass/Vol]on 12-10-2021 MCHC (RBC) [Mass/Vol] 34.4 g/dL 32-36 [facility] Work Phone: No Panel Informationon 12-10 Estimated GFR (MDRD) Amer 114 mL/min >60 [facility] Work Phone: Comment on above: GFR Calc Estimated GFR (MDRD) Non-Af Amer 94 mL/min >60 [facility] Work Phone: Comment on above: Non- GFR Calc Platelets bldon 12-10-2021 Platelets (Bld) [#/Vol] 206 10*3/uL 150-450 [facility] Work Phone: Serum or plasma calcium josué urement (mass/volume)on 12-10-2021 Calcium [Mass/Vol] 8.7 mg/dL 8.5-10.1 [facility] Work Phone: Serum or plasma cholesterol in HDL measurement (mass/volume)on 12-10-2021 Cholesterol in HDL [Mass/Vol] 48 mg/dL >40 [facility] Work Phone: Comment on above: The drugs N-Acetylcy steine and Metamizole may falsely depress this assay. Reference Range HDL <40 mg/dL Low HDL Cholesterol HDL >or= 60 mg/dL High HDL Cholesterol Serum or plasma cholesterol in VLDL measurement (mass/volume)on 12-10-2021 Cholesterol in VLDL [Mass/Vol] 12 mg/dL 5-40 [facility] Work Phone: Serum or plasma creatinine m easurement (mass/volume)on 12-10-2021 Creatinine [Mass/Vol] 0.64 mg/dL 0.55-1.02 [facility] Work Phone: Comment on above: The validity of the calculated GFR & GFRAA in patients over 70 years has not been determined. Clinical correlation is essential. Serum or plasma low density lipoprotein (LDL) cholesterol measurement (mass/volume)on 12-10-2021 Cholesterol in LDL [Mass/Vol] 54 mg/dL 0-130 [facility] Work Phone: Serum or plasma urea nitroge n measurement (mass/volume)on 12-10-2021 Urea nitrogen [Mass/Vol] 12 mg/dL 7-18 [facility] Work Phone: Thin prep Papanicolaou smear with manual screeningon 12-10-2021 Thin prep Papanicolaou smear with manual screening 5 5-15 [facility] Work Phone: Basophil percentageon 2021 Chloride [Moles/Vol] 96 mmol/L 98-107 [facility] Work Phone: Glucose [Mass/Vol] 126 mg/dL 74-106 [facility] Work Phone: Comment on above: Fasting Glucose resu lt greater than or equal to 126 mg/dL suggests DIABETES MELLITUS per A.D.A. criteria. Potassium [Moles/Vol] 3.5 mmol/L 3.5-5.1 [facility] Work Phone: Sodium [Moles/Vol] 133 mmol/L 136-145 [facility] Work Phone: WBC (Bld) [#/Vol] 7.2 10*3/uL 4.4-11.0 [facility] Work Phone: Blood erythrocytes count (nu mber/volume)on 12-02-2021 RBC (Bld) [#/Vol] 4.59 10*6/uL 4.2-5.4 [facility] Work Phone: Blood hemoglobin measurement (mass/volume)on 12-02-2021 Hemoglobin (Bld) [Mass/Vol] 14.4 g/dL 12.0-15.0 [facility] Work Phone: Blood platelet mean volumeon 12-02-2021 Platelet mean volume (Bld) [Entitic vol] 10.6 fL 6.2-12.0 [facility] Work Phone: Determination of erythrocyte mean corpuscular volume (MCV)on 12-02-2021 MCV (RBC) [Entitic vol] 92.4 fL 81-99 [facility] Work Phone: Hematocrit Auto (Bld) [Volum e fraction]on 12-02-2021 Hematocrit (Bld) [Volume fraction] 42.4 % 37-47 [facility] Work Phone: INR in Blood by Coagulation assayon 12-02-2021 INR Coag (Bld) [Relative time] 1.7 {INR} [facility] Work Phone: Laboratory - Chemistry and C hemistry - challengeon 12-02-2021 CO2 [Moles/Vol] 33.0 mmol/L 21.0-32.0 [facility] Work Phone: Urea nitrogen/Creatinine [Mass ratio] 17.2 mg/mg 10-20 [facility] Work Phone: Laboratory - Coagulationon 0 12-02-2021 PT Coag (PPP) [Time] 19.9 s 11.7-14.9 [facility] Work Phone: Laboratory - Hematology and Cell countson 12-02-2021 Erythrocyte distribution width (RBC) [Entitic vol] 41.6 fL 35.1-43.9 [facility] Work Phone: Erythrocyte distribution width (RBC) [Ratio] 12.2 % 11.6-14.6 [facility] Work Phone: MCH (RBC) [Entitic mass] 31.4 pg 27.0-32.0 [facility] Work Phone: MCHC Auto (RBC) [Mass/Vol]on 12-02-2021 MCHC (RBC) [Mass/Vol] 34.0 g/dL 32-36 [facility] Work Phone: No Panel Informationon 12-02 Estimated GFR (MDRD) Amer 94 mL/min >60 [facility] Work Phone: Comment on above: GFR Calc Estimated GFR (MDRD) Non-Af Amer 78 mL/min >60 [facility] Work Phone: Comment on above: Non- GFR Calc Platelets bldon 12-02-2021 Platelets (Bld) [#/Vol] 248 10*3/uL 150-450 [facility] Work Phone: Serum or plasma calcium josué urement (mass/volume)on 12-02-2021 Calcium [Mass/Vol] 8.9 mg/dL 8.5-10.1 [facility] Work Phone: Serum or plasma creatinine m easurement (mass/volume)on 12-02-2021 Creatinine [Mass/Vol] 0.75 mg/dL 0.55-1.02 [facility] Work Phone: Comment on above: The validity of the calculated GFR & GFRAA in patients over 70 years has not been determined. Clinical correlation is essential. Serum or plasma urea nitroge n measurement (mass/volume)on 12-02-2021 Urea nitrogen [Mass/Vol] 13 mg/dL 7-18 [facility] Work Phone: Thin prep Papanicolaou smear with manual screeningon 12-02-2021 Thin prep Papanicolaou smear with manual screening 4 5-15 [facility] Work Phone: Basophil percentageon 2021 Chloride [Moles/Vol] 102 mmol/L 98-107 [facility] Work Phone: Glucose [Mass/Vol] 110 mg/dL 74-106 [facility] Work Phone: Comment on above: Fasting Glucose resu lt from 100 to 125 mg/dL suggests IMPAIRED HOMEOSTASIS per A.D.A. criteria. Potassium [Moles/Vol] 4.7 mmol/L 3.5-5.1 [facility] Work Phone: Sodium [Moles/Vol] 136 mmol/L 136-145 [facility] Work Phone: WBC (Bld) [#/Vol] 6.5 10*3/uL 4.4-11.0 [facility] Work Phone: Blood erythrocytes count (nu mber/volume)on 11-25-2021 RBC (Bld) [#/Vol] 4.15 10*6/uL 4.2-5.4 [facility] Work Phone: Blood hemoglobin measurement (mass/volume)on 11-25-2021 Hemoglobin (Bld) [Mass/Vol] 13.0 g/dL 12.0-15.0 [facility] Work Phone: Blood platelet mean volumeon 11-25-2021 Platelet mean volume (Bld) [Entitic vol] 10.3 fL 6.2-12.0 [facility] Work Phone: Determination of erythrocyte mean corpuscular volume (MCV)on 11-25-2021 MCV (RBC) [Entitic vol] 91.6 fL 81-99 [facility] Work Phone: Hematocrit Auto (Bld) [Volum e fraction]on 11-25-2021 Hematocrit (Bld) [Volume fraction] 38.0 % 37-47 [facility] Work Phone: Laboratory - Chemistry and C hemistry - challengeon 11-25-2021 CO2 [Moles/Vol] 30.0 mmol/L 21.0-32.0 [facility] Work Phone: Urea nitrogen/Creatinine [Mass ratio] 15.3 mg/mg 10-20 [facility] Work Phone: Laboratory - Hematology and Cell countson 11-25-2021 Erythrocyte distribution width (RBC) [Entitic vol] 41.4 fL 35.1-43.9 [facility] Work Phone: Erythrocyte distribution width (RBC) [Ratio] 12.4 % 11.6-14.6 [facility] Work Phone: MCH (RBC) [Entitic mass] 31.3 pg 27.0-32.0 [facility] Work Phone: MCHC Auto (RBC) [Mass/Vol]on 11-25-2021 MCHC (RBC) [Mass/Vol] 34.2 g/dL 32-36 [facility] Work Phone: No Panel Informationon 11-25 Estimated GFR (MDRD) Amer 99 mL/min >60 [facility] Work Phone: Comment on above: GFR Calc Estimated GFR (MDRD) Non-Af Amer 82 mL/min >60 [facility] Work Phone: Comment on above: Non- GFR Calc Platelets bldon 11-25-2021 Platelets (Bld) [#/Vol] 209 10*3/uL 150-450 [facility] Work Phone: Serum or plasma calcium josué urement (mass/volume)on 11-25-2021 Calcium [Mass/Vol] 8.8 mg/dL 8.5-10.1 [facility] Work Phone: Serum or plasma creatinine m easurement (mass/volume)on 11-25-2021 Creatinine [Mass/Vol] 0.72 mg/dL 0.55-1.02 [facility] Work Phone: Comment on above: The validity of the calculated GFR & GFRAA in patients over 70 years has not been determined. Clinical correlation is essential. Serum or plasma urea nitroge n measurement (mass/volume)on 11-25-2021 Urea nitrogen [Mass/Vol] 11 mg/dL 7-18 [facility] Work Phone: Thin prep Papanicolaou smear with manual screeningon 11-25-2021 Thin prep Papanicolaou smear with manual screening 4 5-15 [facility] Work Phone: Basophil percentageon 2021 Chloride [Moles/Vol] 98 mmol/L 98-107 [facility] Work Phone: Glucose [Mass/Vol] 112 mg/dL 74-106 [facility] Work Phone: Comment on above: Fasting Glucose resu lt from 100 to 125 mg/dL suggests IMPAIRED HOMEOSTASIS per A.D.A. criteria. Potassium [Moles/Vol] 4.9 mmol/L 3.5-5.1 [facility] Work Phone: Sodium [Moles/Vol] 133 mmol/L 136-145 [facility] Work Phone: Laboratory - Chemistry and C hemistry - challengeon 11-23-2021 CO2 [Moles/Vol] 30.0 mmol/L 21.0-32.0 [facility] Work Phone: Urea nitrogen/Creatinine [Mass ratio] 15.5 mg/mg 10-20 [facility] Work Phone: No Panel Informationon 11-23 Estimated GFR (MDRD) Amer 101 mL/min >60 [facility] Work Phone: Comment on above: GFR Calc Estimated GFR (MDRD) Non-Af Amer 84 mL/min >60 [facility] Work Phone: Comment on above: Non- GFR Calc Serum or plasma calcium josué urement (mass/volume)on 11-23-2021 Calcium [Mass/Vol] 9.3 mg/dL 8.5-10.1 [facility] Work Phone: Serum or plasma creatinine m easurement (mass/volume)on 11-23-2021 Creatinine [Mass/Vol] 0.71 mg/dL 0.55-1.02 [facility] Work Phone: Comment on above: The validity of the calculated GFR & GFRAA in patients over 70 years has not been determined. Clinical correlation is essential. Serum or plasma urea nitroge n measurement (mass/volume)on 11-23-2021 Urea nitrogen [Mass/Vol] 11 mg/dL 7-18 [facility] Work Phone: Thin prep Papanicolaou smear with manual screeningon 11-23-2021 Thin prep Papanicolaou smear with manual screening 5 5-15 [facility] Work Phone: Basophil percentageon 2021 Chloride [Moles/Vol] 97 mmol/L 98-107 [facility] Work Phone: Glucose [Mass/Vol] 99 mg/dL 74-106 [facility] Work Phone: Potassium [Moles/Vol] 4.2 mmol/L 3.5-5.1 [facility] Work Phone: Sodium [Moles/Vol] 132 mmol/L 136-145 [facility] Work Phone: WBC (Bld) [#/Vol] 6.8 10*3/uL 4.4-11.0 [facility] Work Phone: Blood erythrocytes count (nu mber/volume)on 11-18-2021 RBC (Bld) [#/Vol] 4.12 10*6/uL 4.2-5.4 [facility] Work Phone: Blood hemoglobin measurement (mass/volume)on 11-18-2021 Hemoglobin (Bld) [Mass/Vol] 12.8 g/dL 12.0-15.0 [facility] Work Phone: Blood platelet mean volumeon 11-18-2021 Platelet mean volume (Bld) [Entitic vol] 10.5 fL 6.2-12.0 [facility] Work Phone: Determination of erythrocyte mean corpuscular volume (MCV)on 11-18-2021 MCV (RBC) [Entitic vol] 92.5 fL 81-99 [facility] Work Phone: Hematocrit Auto (Bld) [Volum e fraction]on 11-18-2021 Hematocrit (Bld) [Volume fraction] 38.1 % 37-47 [facility] Work Phone: Laboratory - Chemistry and C hemistry - challengeon 11-18-2021 CO2 [Moles/Vol] 30.0 mmol/L 21.0-32.0 [facility] Work Phone: Urea nitrogen/Creatinine [Mass ratio] 21.1 mg/mg 10-20 [facility] Work Phone: Laboratory - Hematology and Cell countson 11-18-2021 Erythrocyte distribution width (RBC) [Entitic vol] 41.6 fL 35.1-43.9 [facility] Work Phone: Erythrocyte distribution width (RBC) [Ratio] 12.3 % 11.6-14.6 [facility] Work Phone: MCH (RBC) [Entitic mass] 31.1 pg 27.0-32.0 [facility] Work Phone: MCHC Auto (RBC) [Mass/Vol]on 11-18-2021 MCHC (RBC) [Mass/Vol] 33.6 g/dL 32-36 [facility] Work Phone: No Panel Informationon 11-18 Estimated GFR (MDRD) Amer 94 mL/min >60 [facility] Work Phone: Comment on above: GFR Calc Estimated GFR (MDRD) Non-Af Amer 77 mL/min >60 [facility] Work Phone: Comment on above: Non- GFR Calc Platelets bldon 11-18-2021 Platelets (Bld) [#/Vol] 220 10*3/uL 150-450 [facility] Work Phone: Serum or plasma calcium josué urement (mass/volume)on 11-18-2021 Calcium [Mass/Vol] 8.8 mg/dL 8.5-10.1 [facility] Work Phone: Serum or plasma creatinine m easurement (mass/volume)on 11-18-2021 Creatinine [Mass/Vol] 0.76 mg/dL 0.55-1.02 [facility] Work Phone: Comment on above: The validity of the calculated GFR & GFRAA in patients over 70 years has not been determined. Clinical correlation is essential. Serum or plasma urea nitroge n measurement (mass/volume)on 11-18-2021 Urea nitrogen [Mass/Vol] 16 mg/dL 7-18 [facility] Work Phone: Thin prep Papanicolaou smear with manual screeningon 11-18-2021 Thin prep Papanicolaou smear with manual screening 5 5-15 [facility] Work Phone: Absolute lymphocyte counton 11-12-2021 Lymphocytes Auto (Unsp spec) [#/Vol] 1.86 10*3/uL 0.83-4.51 [facility] Work Phone: Basophil percentageon 2021 Basophils/100 WBC (Bld) 0.6 % 0-1 [facility] Work Phone: Chloride [Moles/Vol] 104 mmol/L 98-107 [facility] Work Phone: Eosinophils/100 WBC (Bld) 3.9 % 0-5 [facility] Work Phone: Glucose [Mass/Vol] 103 mg/dL 74-106 [facility] Work Phone: Comment on above: Fasting Glucose resu lt from 100 to 125 mg/dL suggests IMPAIRED HOMEOSTASIS per A.D.A. criteria. Neutrophils (Bld) [#/Vol] 3.7 10*3/uL 2.0-7.7 [facility] Work Phone: Neutrophils/100 WBC (Bld) 56.9 % 47-70 [facility] Work Phone: Potassium [Moles/Vol] 4.1 mmol/L 3.5-5.1 [facility] Work Phone: Sodium [Moles/Vol] 137 mmol/L 136-145 [facility] Work Phone: WBC (Bld) [#/Vol] 6.4 10*3/uL 4.4-11.0 [facility] Work Phone: Blood erythrocytes count (nu mber/volume)on 11-12-2021 RBC (Bld) [#/Vol] 3.99 10*6/uL 4.2-5.4 [facility] Work Phone: Blood hemoglobin measurement (mass/volume)on 11-12-2021 Hemoglobin (Bld) [Mass/Vol] 12.5 g/dL 12.0-15.0 [facility] Work Phone: Blood lymphocytes/100 leukoc yteson 11-12-2021 Lymphocytes/100 WBC (Bld) 29.0 % 19-41 [facility] Work Phone: Blood monocytes/100 leukocyt eson 11-12-2021 Monocytes/100 WBC (Bld) 9.4 % 0-10 [facility] Work Phone: Blood platelet mean volumeon 11-12-2021 Platelet mean volume (Bld) [Entitic vol] 10.1 fL 6.2-12.0 [facility] Work Phone: Determination of erythrocyte mean corpuscular volume (MCV)on 11-12-2021 MCV (RBC) [Entitic vol] 93.7 fL 81-99 [facility] Work Phone: Hematocrit Auto (Bld) [Volum e fraction]on 11-12-2021 Hematocrit (Bld) [Volume fraction] 37.4 % 37-47 [facility] Work Phone: Laboratory - Chemistry and C hemistry - challengeon 11-12-2021 CO2 [Moles/Vol] 30.0 mmol/L 21.0-32.0 [facility] Work Phone: Urea nitrogen/Creatinine [Mass ratio] 21.6 mg/mg 10-20 [facility] Work Phone: Laboratory - Hematology and Cell countson 11-12-2021 Erythrocyte distribution width (RBC) [Entitic vol] 41.7 fL 35.1-43.9 [facility] Work Phone: Erythrocyte distribution width (RBC) [Ratio] 12.0 % 11.6-14.6 [facility] Work Phone: Immature granulocytes/100 WBC (Bld) 0.200 % 0.0-0.9 [facility] Work Phone: Comment on above: IG% - Immature Granu locytes (promyelocytes, myelocytes and metamyelocytes) > 1% indicates that a LEFT SHIFT is Present. MCH (RBC) [Entitic mass] 31.3 pg 27.0-32.0 [facility] Work Phone: Nucleated RBC/100 WBC (Bld) [Ratio] 0 % 0-5 [facility] Work Phone: MCHC Auto (RBC) [Mass/Vol]on 11-12-2021 MCHC (RBC) [Mass/Vol] 33.4 g/dL 32-36 [facility] Work Phone: No Panel Informationon 11-12 Estimated Creatinine Clearance Calc 30.08 ml/min [facility] Work Phone: Estimated GFR (MDRD) Amer 122 mL/min >60 [facility] Work Phone: Comment on above: GFR Calc Estimated GFR (MDRD) Non-Af Amer 101 mL/min >60 [facility] Work Phone: Comment on above: Non- GFR Calc Platelets bldon 11-12-2021 Platelets (Bld) [#/Vol] 204 10*3/uL 150-450 [facility] Work Phone: Serum or plasma calcium josué urement (mass/volume)on 11-12-2021 Calcium [Mass/Vol] 8.6 mg/dL 8.5-10.1 [facility] Work Phone: Serum or plasma creatinine m easurement (mass/volume)on 11-12-2021 Creatinine [Mass/Vol] 0.60 mg/dL 0.55-1.02 [facility] Work Phone: Comment on above: The validity of the calculated GFR & GFRAA in patients over 70 years has not been determined. Clinical correlation is essential. Serum or plasma urea nitroge n measurement (mass/volume)on 11-12-2021 Urea nitrogen [Mass/Vol] 13 mg/dL 7-18 [facility] Work Phone: Thin prep Papanicolaou smear with manual screeningon 11-12-2021 Thin prep Papanicolaou smear with manual screening 3 5-15 [facility] Work Phone: INR in Blood by Coagulation assayon 11-11-2021 INR Coag (Bld) [Relative time] 2.3 {INR} [facility] Work Phone: Laboratory - Coagulationon 0 11-11-2021 PT Coag (PPP) [Time] 24.6 s 11.7-14.9 [facility] Work Phone: INR in Blood by Coagulation assayon 11-08-2021 INR Coag (Bld) [Relative time] 3.0 {INR} [facility] Work Phone: Laboratory - Coagulationon 0 11-08-2021 PT Coag (PPP) [Time] 30.5 s 11.7-14.9 [facility] Work Phone: Basophil percentageon 2021 Chloride [Moles/Vol] 106 mmol/L 98-107 [facility] Work Phone: Glucose [Mass/Vol] 107 mg/dL 74-106 [facility] Work Phone: Comment on above: Fasting Glucose resu lt from 100 to 125 mg/dL suggests IMPAIRED HOMEOSTASIS per A.D.A. criteria. Potassium [Moles/Vol] 4.0 mmol/L 3.5-5.1 [facility] Work Phone: Sodium [Moles/Vol] 139 mmol/L 136-145 [facility] Work Phone: Laboratory - Chemistry and C hemistry - challengeon 11-07-2021 CO2 [Moles/Vol] 30.0 mmol/L 21.0-32.0 [facility] Work Phone: Urea nitrogen/Creatinine [Mass ratio] 22.2 mg/mg 10-20 [facility] Work Phone: No Panel Informationon 11-07 Estimated Creatinine Clearance Calc 30.08 ml/min [facility] Work Phone: Estimated GFR (MDRD) Amer 116 mL/min >60 [facility] Work Phone: Comment on above: GFR Calc Estimated GFR (MDRD) Non-Af Amer 96 mL/min >60 [facility] Work Phone: Comment on above: Non- GFR Calc Serum or plasma calcium josué urement (mass/volume)on 11-07-2021 Calcium [Mass/Vol] 8.9 mg/dL 8.5-10.1 [facility] Work Phone: Serum or plasma creatinine m easurement (mass/volume)on 11-07-2021 Creatinine [Mass/Vol] 0.63 mg/dL 0.55-1.02 [facility] Work Phone: Comment on above: The validity of the calculated GFR & GFRAA in patients over 70 years has not been determined. Clinical correlation is essential. Serum or plasma urea nitroge n measurement (mass/volume)on 11-07-2021 Urea nitrogen [Mass/Vol] 14 mg/dL 7-18 [facility] Work Phone: Thin prep Papanicolaou smear with manual screeningon 11-07-2021 Thin prep Papanicolaou smear with manual screening 3 5-15 [facility] Work Phone: Absolute lymphocyte counton 11-05-2021 Lymphocytes Auto (Unsp spec) [#/Vol] 2.23 10*3/uL 0.83-4.51 [facility] Work Phone: Basophil percentageon 2021 Basophils/100 WBC (Bld) 0.7 % 0-1 [facility] Work Phone: Eosinophils/100 WBC (Bld) 2.6 % 0-5 [facility] Work Phone: Neutrophils (Bld) [#/Vol] 3.9 10*3/uL 2.0-7.7 [facility] Work Phone: Neutrophils/100 WBC (Bld) 56.0 % 47-70 [facility] Work Phone: WBC (Bld) [#/Vol] 7.0 10*3/uL 4.4-11.0 [facility] Work Phone: Blood erythrocytes count (nu mber/volume)on 11-05-2021 RBC (Bld) [#/Vol] 4.10 10*6/uL 4.2-5.4 [facility] Work Phone: Blood hemoglobin measurement (mass/volume)on 11-05-2021 Hemoglobin (Bld) [Mass/Vol] 12.8 g/dL 12.0-15.0 [facility] Work Phone: Blood lymphocytes/100 leukoc yteson 11-05-2021 Lymphocytes/100 WBC (Bld) 31.9 % 19-41 [facility] Work Phone: Blood monocytes/100 leukocyt eson 11-05-2021 Monocytes/100 WBC (Bld) 8.4 % 0-10 [facility] Work Phone: Blood platelet mean volumeon 11-05-2021 Platelet mean volume (Bld) [Entitic vol] 10.1 fL 6.2-12.0 [facility] Work Phone: Determination of erythrocyte mean corpuscular volume (MCV)on 11-05-2021 MCV (RBC) [Entitic vol] 91.5 fL 81-99 [facility] Work Phone: Hematocrit Auto (Bld) [Volum e fraction]on 11-05-2021 Hematocrit (Bld) [Volume fraction] 37.5 % 37-47 [facility] Work Phone: Laboratory - Hematology and Cell countson 11-05-2021 Erythrocyte distribution width (RBC) [Entitic vol] 41.1 fL 35.1-43.9 [facility] Work Phone: Erythrocyte distribution width (RBC) [Ratio] 12.4 % 11.6-14.6 [facility] Work Phone: Immature granulocytes/100 WBC (Bld) 0.400 % 0.0-0.9 [facility] Work Phone: Comment on above: IG% - Immature Granu locytes (promyelocytes, myelocytes and metamyelocytes) > 1% indicates that a LEFT SHIFT is Present. MCH (RBC) [Entitic mass] 31.2 pg 27.0-32.0 [facility] Work Phone: Nucleated RBC/100 WBC (Bld) [Ratio] 0 % 0-5 [facility] Work Phone: MCHC Auto (RBC) [Mass/Vol]on 11-05-2021 MCHC (RBC) [Mass/Vol] 34.1 g/dL 32-36 [facility] Work Phone: Platelets bldon 11-05-2021 Platelets (Bld) [#/Vol] 211 10*3/uL 150-450 [facility] Work Phone: Basophil percentageon 2021 Chloride [Moles/Vol] 105 mmol/L 98-107 [facility] Work Phone: Glucose [Mass/Vol] 106 mg/dL 74-106 [facility] Work Phone: Comment on above: Fasting Glucose resu lt from 100 to 125 mg/dL suggests IMPAIRED HOMEOSTASIS per A.D.A. criteria. Potassium [Moles/Vol] 3.5 mmol/L 3.5-5.1 [facility] Work Phone: Sodium [Moles/Vol] 137 mmol/L 136-145 [facility] Work Phone: Laboratory - Chemistry and C hemistry - challengeon 11-04-2021 CO2 [Moles/Vol] 26.0 mmol/L 21.0-32.0 [facility] Work Phone: Urea nitrogen/Creatinine [Mass ratio] 17.1 mg/mg 10-20 [facility] Work Phone: No Panel Informationon 11-04 Estimated Creatinine Clearance Calc 30.08 ml/min [facility] Work Phone: Estimated GFR (MDRD) Amer 126 mL/min >60 [facility] Work Phone: Comment on above: GFR Calc Estimated GFR (MDRD) Non-Af Amer 104 mL/min >60 [facility] Work Phone: Comment on above: Non- GFR Calc Serum or plasma calcium josué urement (mass/volume)on 11-04-2021 Calcium [Mass/Vol] 8.7 mg/dL 8.5-10.1 [facility] Work Phone: Serum or plasma creatinine m easurement (mass/volume)on 06-09-2022 Creatinine [Mass/Vol] 0.58 mg/dL 0.55-1.02 [facility] Work Phone: Comment on above: The validity of the calculated GFR & GFRAA in patients over 70 years has not been determined. Clinical correlation is essential. Serum or plasma urea nitroge n measurement (mass/volume)on 11-04-2021 Urea nitrogen [Mass/Vol] 10 mg/dL 7-18 [facility] Work Phone: Thin prep Papanicolaou smear with manual screeningon 11-04-2021 Thin prep Papanicolaou smear with manual screening 6 5-15 [facility] Work Phone: Absolute lymphocyte counton 11-03-2021 Lymphocytes Auto (Unsp spec) [#/Vol] 1.58 10*3/uL 0.83-4.51 [facility] Work Phone: Basophil percentageon 2021 Basophils/100 WBC (Bld) 0.6 % 0-1 [facility] Work Phone: Eosinophils/100 WBC (Bld) 1.7 % 0-5 [facility] Work Phone: Neutrophils (Bld) [#/Vol] 4.2 10*3/uL 2.0-7.7 [facility] Work Phone: Neutrophils/100 WBC (Bld) 63.5 % 47-70 [facility] Work Phone: WBC (Bld) [#/Vol] 6.6 10*3/uL 4.4-11.0 [facility] Work Phone: Blood erythrocytes count (nu mber/volume)on 11-03-2021 RBC (Bld) [#/Vol] 4.46 10*6/uL 4.2-5.4 [facility] Work Phone: Blood hemoglobin measurement (mass/volume)on 11-03-2021 Hemoglobin (Bld) [Mass/Vol] 13.8 g/dL 12.0-15.0 [facility] Work Phone: Blood lymphocytes/100 leukoc yteson 11-03-2021 Lymphocytes/100 WBC (Bld) 23.8 % 19-41 [facility] Work Phone: Blood monocytes/100 leukocyt eson 11-03-2021 Monocytes/100 WBC (Bld) 10.1 % 0-10 [facility] Work Phone: Blood platelet mean volumeon 11-03-2021 Platelet mean volume (Bld) [Entitic vol] 10.4 fL 6.2-12.0 [facility] Work Phone: Determination of erythrocyte mean corpuscular volume (MCV)on 11-03-2021 MCV (RBC) [Entitic vol] 90.4 fL 81-99 [facility] Work Phone: Hematocrit Auto (Bld) [Volum e fraction]on 11-03-2021 Hematocrit (Bld) [Volume fraction] 40.3 % 37-47 [facility] Work Phone: INR in Blood by Coagulation assayon 11-03-2021 INR Coag (Bld) [Relative time] 2.5 {INR} [facility] Work Phone: Laboratory - Coagulationon 0 11-03-2021 PT Coag (PPP) [Time] 26.7 s 11.7-14.9 [facility] Work Phone: Laboratory - Hematology and Cell countson 11-03-2021 Erythrocyte distribution width (RBC) [Entitic vol] 39.0 fL 35.1-43.9 [facility] Work Phone: Erythrocyte distribution width (RBC) [Ratio] 11.9 % 11.6-14.6 [facility] Work Phone: Immature granulocytes/100 WBC (Bld) 0.300 % 0.0-0.9 [facility] Work Phone: Comment on above: IG% - Immature Granu locytes (promyelocytes, myelocytes and metamyelocytes) > 1% indicates that a LEFT SHIFT is Present. MCH (RBC) [Entitic mass] 30.9 pg 27.0-32.0 [facility] Work Phone: Nucleated RBC/100 WBC (Bld) [Ratio] 0 % 0-5 [facility] Work Phone: MCHC Auto (RBC) [Mass/Vol]on 11-03-2021 MCHC (RBC) [Mass/Vol] 34.2 g/dL 32-36 [facility] Work Phone: Platelets bldon 11-03-2021 Platelets (Bld) [#/Vol] 188 10*3/uL 150-450 [facility] Work Phone: Absolute lymphocyte counton 11-02-2021 Lymphocytes Auto (Unsp spec) [#/Vol] 1.37 10*3/uL 0.83-4.51 [facility] Work Phone: Basophil percentageon 2021 Basophil percentage 0 SEEN /hpf 0-5 [facility] Work Phone: Basophils/100 WBC (Bld) 0.4 % 0-1 [facility] Work Phone: Chloride [Moles/Vol] 92 mmol/L 98-107 [facility] Work Phone: Eosinophils/100 WBC (Bld) 0.3 % 0-5 [facility] Work Phone: Glucose [Mass/Vol] 182 mg/dL 74-106 [facility] Work Phone: Comment on above: Fasting Glucose resu lt greater than or equal to 126 mg/dL suggests DIABETES MELLITUS per A.D.A. criteria. Neutrophils (Bld) [#/Vol] 6.0 10*3/uL 2.0-7.7 [facility] Work Phone: Neutrophils/100 WBC (Bld) 75.5 % 47-70 [facility] Work Phone: [phone] Potassium [Moles/Vol] 3.2 mmol/L 3.5-5.1 [facility] Work Phone: Sodium [Moles/Vol] 129 mmol/L 136-145 [facility] Work Phone: WBC (Bld) [#/Vol] 7.9 10*3/uL 4.4-11.0 [facility] Work Phone: Bilirubin Test strip Ql (U)o n 11-02-2021 Bilirubin Ql (U) Negative Negative [facility] Work Phone: Blood erythrocytes count (nu mber/volume)on 11-02-2021 RBC (Bld) [#/Vol] 4.51 10*6/uL 4.2-5.4 [facility] Work [facility]: Blood hemoglobin measurement (mass/volume)on 11-02-2021 Hemoglobin (Bld) [Mass/Vol] 14.1 g/dL 12.0-15.0 [facility] Work Phone: Blood lymphocytes/100 leukoc yteson 11-02-2021 Lymphocytes/100 WBC (Bld) 17.4 % 19-41 [facility] Work Phone: Blood monocytes/100 leukocyt eson 11-02-2021 Monocytes/100 WBC (Bld) 6.1 % 0-10 [facility] Work Phone: Blood platelet mean volumeon 11-02-2021 Platelet mean volume (Bld) [Entitic vol] 10.1 fL 6.2-12.0 [facility] Work Phone: Determination of erythrocyte mean corpuscular volume (MCV)on 11-02-2021 MCV (RBC) [Entitic vol] 89.1 fL 81-99 [facility] Work Phone: Hematocrit Auto (Bld) [Volum e fraction]on 11-02-2021 Hematocrit (Bld) [Volume fraction] 40.2 % 37-47 [facility] Work Phone: INR in Blood by Coagulation assayon 11-02-2021 INR Coag (Bld) [Relative time] 2.2 {INR} [facility] Work Phone: Ketones Test strip Ql (U)on 11-02-2021 Ketones Ql (U) 5 mg/dl Negative [facility] Work Phone: Laboratory - Chemistry and C hemistry - challengeon 11-02-2021 Sodium (U) [Moles/Vol] 35 mmol/L Not Establ. [facility] Work Phone: CO2 [Moles/Vol] 30.0 mmol/L 21.0-32.0 [facility] Work Phone: Urea nitrogen/Creatinine [Mass ratio] 18.4 mg/mg 10-20 [facility] Work Phone: Laboratory - Coagulationon 0 11-02-2021 PT Coag (PPP) [Time] 23.8 s 11.7-14.9 [facility] Work Phone: Laboratory - Hematology and Cell countson 11-02-2021 Erythrocyte distribution width (RBC) [Entitic vol] 37.6 fL 35.1-43.9 [facility] Work Phone: Erythrocyte distribution width (RBC) [Ratio] 11.7 % 11.6-14.6 [facility] Work Phone: Immature granulocytes/100 WBC (Bld) 0.300 % 0.0-0.9 [facility] Work Phone: Comment on above: IG% - Immature Granu locytes (promyelocytes, myelocytes and metamyelocytes) > 1% indicates that a LEFT SHIFT is Present. MCH (RBC) [Entitic mass] 31.3 pg 27.0-32.0 [facility] Work Phone: Nucleated RBC/100 WBC (Bld) [Ratio] 0 % 0-5 [facility] Work Phone: MCHC Auto (RBC) [Mass/Vol]on 11-02-2021 MCHC (RBC) [Mass/Vol] 35.1 g/dL 32-36 [facility] Work Phone: Mucus LM Ql (Urine sed)on Mucus Ql (Urine sed) 0 SEEN /hpf [facility] Work Phone: Nitrite Test strip Ql (U)on 11-02-2021 Nitrite Ql (U) Negative Negative [facility] Work Phone: No Panel Informationon 11-02 Estimated Creatinine Clearance Calc 36.68 ml/min [facility] Work Phone: Estimated GFR (MDRD) Amer 86 mL/min >60 [facility] Work Phone: Comment on above: GFR Calc Estimated GFR (MDRD) Non-Af Amer 71 mL/min >60 [facility] Work Phone: Comment on above: Non- GFR Calc Troponin I High Sensitivity 12 pg/mL 3.0-54.0 [facility] Work Phone: Comment on above: Please Note: New Amber t Units and Gender Specific Reference Ranges. For more information see Policy Stat Procedure [place] High Sensitivity Troponin (TNIH) and attachments. Platelets bldon 11-02-2021 Platelets (Bld) [#/Vol] 222 10*3/uL 150-450 [facility] Work Phone: Protein Test strip Ql (U)on 11-02-2021 Protein Ql (U) Negative Negative [facility] Work Phone: Serum or plasma calcium josué urement (mass/volume)on 11-02-2021 Calcium [Mass/Vol] 9.1 mg/dL 8.5-10.1 [facility] Work Phone: Serum or plasma creatinine m easurement (mass/volume)on 11-02-2021 Creatinine [Mass/Vol] 0.82 mg/dL 0.55-1.02 [facility] Work Phone: Comment on above: The validity of the calculated GFR & GFRAA in patients over 70 years has not been determined. Clinical correlation is essential. Serum or plasma urea nitroge n measurement (mass/volume)on 11-02-2021 Urea nitrogen [Mass/Vol] 15 mg/dL 7-18 [facility] Work Phone: Squamous epithelial cells de tection in urine sediment by light microscopyon 11-02-2021 Epithelial cells.squamous LM Ql (Urine sed) 0-5 SEEN /hpf 5-10 [facility] Work Phone: Thin prep Papanicolaou smear with manual screeningon 11-02-2021 Thin prep Papanicolaou smear with manual screening 275 mOsm/KG 280-301 [facility] Work Phone: Thin prep Papanicolaou smear with manual screening 7 5-15 [facility] Work Phone: Urine blood detectionon 0 RBC Ql (U) 25 /ul Negative [facility] Work Phone: RBC Ql (U) 0-5 SEEN /hpf 0-5 [facility] Work Phone: Urine clarityon 11-02-2021 Clarity (U) Clear Clear [facility] Work Phone: Urine color determinationon 11-02-2021 Color (U) Yellow Yellow [facility] Work Phone: Urine glucose detectionon Glucose Ql (U) Normal mg/dl Normal [facility] Work Phone: Urine leukocyte esterase det ection by dipstickon 11-02-2021 Leukocyte esterase Test strip Ql (U) Negative Negative [facility] Work Phone: Urine osmolality measurement on 11-02-2021 Osmolality (U) [Osmolality] 253 mOsm/KG >50 [facility] Work Phone: Comment on above: Normal Urine Referen ce Ranges Random: 50 - 1200 mOsm/kg H20 depending on fluid intake Random: >850 mOsm/kg after 12 hour fluid restriction 24 hour: ~300 - 900 mOsm/kg H2O Urine pHon 11-02-2021 pH (U) 6.0 [pH] 5.0 - 8.0 [facility] Work Phone: Urine sediment bacteria coun t by microscopy (number/high power field)on 11-02-2021 Bacteria LM.HPF (Urine sed) [#/Area] 0 /[HPF] None Seen [facility] Work Phone: Urine specific gravity measu rementon 11-02-2021 Specific gravity (U) [Rel density] 1.015 1.002-1.030 [facility] Work Phone: Urobilinogen Auto test strip Ql (U)on 11-02-2021 Urobilinogen Ql (U) Normal mg/dl Normal [facility] Work Phone: Basophil percentageon 2021 Chloride [Moles/Vol] 99 mmol/L 98-107 [facility] Work Phone: Glucose [Mass/Vol] 108 mg/dL 74-106 [facility] Work Phone: Comment on above: Fasting Glucose resu lt from 100 to 125 mg/dL suggests IMPAIRED HOMEOSTASIS per A.D.A. criteria. Potassium [Moles/Vol] 4.2 mmol/L 3.5-5.1 [facility] Work Phone: Sodium [Moles/Vol] 137 mmol/L 136-145 [facility] Work Phone: INR in Blood by Coagulation assayon 10-21-2021 INR Coag (Bld) [Relative time] 2.1 {INR} [facility] Work Phone: Laboratory - Chemistry and C hemistry - challengeon 10-21-2021 CO2 [Moles/Vol] 34.0 mmol/L 21.0-32.0 [facility] Work Phone: Urea nitrogen/Creatinine [Mass ratio] 19.7 mg/mg 10-20 [facility] Work Phone: Laboratory - Coagulationon 0 10-21-2021 PT Coag (PPP) [Time] 23.2 s 11.7-14.9 [facility] Work Phone: No Panel Informationon 10-21 Estimated GFR (MDRD) Amer 93 mL/min >60 [facility] Work Phone: Comment on above: GFR Calc Estimated GFR (MDRD) Non-Af Amer 77 mL/min >60 [facility] Work Phone: Comment on above: Non- GFR Calc Serum or plasma calcium josué urement (mass/volume)on 10-21-2021 Calcium [Mass/Vol] 9.1 mg/dL 8.5-10.1 [facility] Work Phone: Serum or plasma creatinine m easurement (mass/volume)on 10-21-2021 Creatinine [Mass/Vol] 0.76 mg/dL 0.55-1.02 [facility] Work Phone: Comment on above: The validity of the calculated GFR & GFRAA in patients over 70 years has not been determined. Clinical correlation is essential. Serum or plasma urea nitroge n measurement (mass/volume)on 10-21-2021 Urea nitrogen [Mass/Vol] 15 mg/dL 7 [facility] Work Phone: Thin prep Papanicolaou smear with manual screeningon 10-21-2021 Thin prep Papanicolaou smear with manual screening 4 5-15 [facility] Work Phone: INR in Blood by Coagulation assayon 10-13-2021 INR Coag (Bld) [Relative time] 3.1 {INR} [facility] Work Phone: Laboratory - Coagulationon 0 10-13-2021 PT Coag (PPP) [Time] 31.8 s 11.7-14.9 [facility] Work Phone: Laboratory - Coagulationon 0 10-06-2021 INR Coag (Bld) [Relative time] 1.6 {INR} [facility] Work Phone: Comment on above: Critical Value > 4.0 Whole blood prothrombin time on 10-06-2021 PT Coag (Bld) [Time] 19.7 s 11.7-14.9 [facility] Work Phone: Basophil percentageon 2021 Chloride [Moles/Vol] 100 mmol/L 98-107 [facility] Work Phone: Glucose [Mass/Vol] 87 mg/dL 74-106 [facility] Work Phone: Potassium [Moles/Vol] 3.6 mmol/L 3.5-5.1 [facility] Work Phone: Sodium [Moles/Vol] 138 mmol/L 136-145 [facility] Work Phone: Laboratory - Chemistry and C hemistry - challengeon 09-29-2021 CO2 [Moles/Vol] 31.0 mmol/L 21.0-32.0 [facility] Work Phone: Natriuretic peptide B (Bld) [Mass/Vol] 372.7 pg/mL 0-100 [facility] Work Phone: Urea nitrogen/Creatinine [Mass ratio] 17.1 mg/mg 10-20 [facility] Work Phone: No Panel Informationon 09-29 Estimated GFR (MDRD) Amer 113 mL/min >60 [facility] Work Phone: Comment on above: GFR Calc Estimated GFR (MDRD) Non-Af Amer 94 mL/min >60 [facility] Work Phone: Comment on above: Non- GFR Calc Serum or plasma calcium josué urement (mass/volume)on 09-29-2021 Calcium [Mass/Vol] 8.7 mg/dL 8.5-10.1 [facility] Work Phone: Serum or plasma creatinine m easurement (mass/volume)on 09-29-2021 Creatinine [Mass/Vol] 0.64 mg/dL 0.55-1.02 [facility] Work Phone: Comment on above: The validity of the calculated GFR & GFRAA in patients over 70 years has not been determined. Clinical correlation is essential. Serum or plasma urea nitroge n measurement (mass/volume)on 09-29-2021 Urea nitrogen [Mass/Vol] 11 mg/dL -18 [facility] Work Phone: Thin prep Papanicolaou smear with manual screeningon 09-29-2021 Thin prep Papanicolaou smear with manual screening 7 - [facility] Work Phone: Laboratory - Coagulationon 0 09-14-2021 INR Coag (Bld) [Relative time] 2.1 {INR} [facility] Work Phone: Comment on above: Critical Value > 4.0 Whole blood prothrombin time on 09-14-2021 PT Coag (Bld) [Time] 25.1 s 11.7-14.9 [facility] Work Phone: Laboratory - Coagulationon 0 08-27-2021 INR Coag (Bld) [Relative time] 2.4 {INR} [facility] Work Phone: Comment on above: Critical Value > 4.0 Whole blood prothrombin time on 08-27-2021 PT Coag (Bld) [Time] 27.5 s 11.7-14.9 [facility] Work Phone: Laboratory - Coagulationon 0 08-11-2021 INR Coag (Bld) [Relative time] 1.3 {INR} [facility] Work Phone: Comment on above: Critical Value > 4.0 Whole blood prothrombin time on 08-11-2021 PT Coag (Bld) [Time] 15.7 s 11.7-14.9 [facility] Work Phone: Laboratory - Coagulationon 0 07-28-2021 INR Coag (Bld) [Relative time] 1.2 {INR} [facility] Work Phone: Comment on above: Critical Value > 4.0 Whole blood prothrombin time on 07-28-2021 PT Coag (Bld) [Time] 15.1 s 11.7-14.9 [facility] Work Phone: Laboratory - Coagulationon 0 07-14-2021 INR Coag (Bld) [Relative time] 1.5 {INR} [facility] Work Phone: [phone] Comment on above: Critical Value > 4.0 Whole blood prothrombin time on 07-14-2021 PT Coag (Bld) [Time] 18.2 s 11.9-14.4 [facility] Work Phone: Absolute lymphocyte counton 06-26-2021 Lymphocytes Auto (Unsp spec) [#/Vol] 2.42 10*3/uL 0.83-4.51 [facility] Work Phone: Basophil percentageon 2021 Basophils/100 WBC (Bld) 0.7 % 0-1 [facility] Work Phone: Chloride [Moles/Vol] 105 mmol/L 98-107 [facility] Work Phone: Eosinophils/100 WBC (Bld) 3.6 % 0-5 [facility] Work Phone: Glucose [Mass/Vol] 122 mg/dL 74-106 [facility] Work Phone: Comment on above: Fasting Glucose resu lt from 100 to 125 mg/dL suggests IMPAIRED HOMEOSTASIS per A.D.A. criteria. Neutrophils (Bld) [#/Vol] 5.0 10*3/uL 2.0-7.7 [facility] Work Phone: Neutrophils/100 WBC (Bld) 58.8 % 47-70 [facility] Work Phone: [phone] Potassium [Moles/Vol] 3.8 mmol/L 3.5-5.1 [facility] Work Phone: Sodium [Moles/Vol] 140 mmol/L 136-145 [facility] Work Phone: WBC (Bld) [#/Vol] 8.6 10*3/uL 4.4-11.0 [facility] Work Phone: Blood erythrocytes count (nu mber/volume)on 06-26-2021 RBC (Bld) [#/Vol] 5.15 10*6/uL 4.2-5.4 [facility] Work Phone: Blood hemoglobin measurement (mass/volume)on 06-26-2021 Hemoglobin (Bld) [Mass/Vol] 15.7 g/dL 12.0-15.0 [facility] Work Phone: Blood lymphocytes/100 leukoc yteson 06-26-2021 Lymphocytes/100 WBC (Bld) 28.3 % 19-41 [facility] Work Phone: Blood monocytes/100 leukocyt eson 06-26-2021 Monocytes/100 WBC (Bld) 8.4 % 0-10 [facility] Work Phone: Blood platelet mean volumeon 06-26-2021 Platelet mean volume (Bld) [Entitic vol] 10.2 fL 6.2-12.0 [facility] Work Phone: Determination of erythrocyte mean corpuscular volume (MCV)on 06-26-2021 MCV (RBC) [Entitic vol] 94.0 fL 81-99 [facility] Work Phone: Hematocrit Auto (Bld) [Volum e fraction]on 06-26-2021 Hematocrit (Bld) [Volume fraction] 48.4 % 37-47 [facility] Work Phone: Laboratory - Chemistry and C hemistry - challengeon 06-26-2021 CO2 [Moles/Vol] 32.0 mmol/L 21.0-32.0 [facility] Work Phone: Urea nitrogen/Creatinine [Mass ratio] 20.4 mg/mg 10-20 [facility] Work Phone: Laboratory - Hematology and Cell countson 06-26-2021 Erythrocyte distribution width (RBC) [Entitic vol] 43.7 fL 35.1-43.9 [facility] Work Phone: Erythrocyte distribution width (RBC) [Ratio] 12.7 % 11.6-14.6 [facility] Work Phone: Immature granulocytes/100 WBC (Bld) 0.200 % 0.0-0.9 [facility] Work Phone: Comment on above: IG% - Immature Granu locytes (promyelocytes, myelocytes and metamyelocytes) > 1% indicates that a LEFT SHIFT is Present. MCH (RBC) [Entitic mass] 30.5 pg 27.0-32.0 [facility] Work Phone: Nucleated RBC/100 WBC (Bld) [Ratio] 0 % 0-5 [facility] Work Phone: MCHC Auto (RBC) [Mass/Vol]on 06-26-2021 MCHC (RBC) [Mass/Vol] 32.4 g/dL 32-36 [facility] Work Phone: No Panel Informationon 06-26 Estimated Creatinine Clearance Calc 32.17 ml/min [facility] Work Phone: Estimated GFR (MDRD) Amer 114 mL/min >60 [facility] Work Phone: Comment on above: GFR Calc Estimated GFR (MDRD) Non-Af Amer 94 mL/min >60 [facility] Work Phone: Comment on above: Non- GFR Calc Platelets bldon 06-26-2021 Platelets (Bld) [#/Vol] 234 10*3/uL 150-450 [facility] Work Phone: Serum or plasma calcium josué urement (mass/volume)on 06-26-2021 Calcium [Mass/Vol] 8.6 mg/dL 8.5-10.1 [facility] Work Phone: Serum or plasma creatinine m easurement (mass/volume)on 06-26-2021 Creatinine [Mass/Vol] 0.64 mg/dL 0.55-1.02 [facility] Work Phone: Comment on above: The validity of the calculated GFR & GFRAA in patients over 70 years has not been determined. Clinical correlation is essential. Serum or plasma urea nitroge n measurement (mass/volume)on 06-26-2021 Urea nitrogen [Mass/Vol] 13 mg/dL 7-18 [facility] Work Phone: Thin prep Papanicolaou smear with manual screeningon 06-26-2021 Thin prep Papanicolaou smear with manual screening 3 5-15 [facility] Work Phone: INR in Blood by Coagulation assayon 06-24-2021 INR Coag (Bld) [Relative time] 1.4 {INR} [facility] Work Phone: Laboratory - Coagulationon 0 06-24-2021 PT Coag (PPP) [Time] 16.2 s 11.7-14.9 [facility] Work Phone: No Panel Informationon 06-24 SARS-CoV-2 Antigen (Rapid) [facility] Work Phone: Absolute lymphocyte counton 06-18-2021 Lymphocytes Auto (Unsp spec) [#/Vol] 1.81 10*3/uL 0.83-4.51 [facility] Work Phone: Basophil percentageon 2021 Basophils/100 WBC (Bld) 0.5 % 0-1 [facility] Work Phone: Chloride [Moles/Vol] 103 mmol/L 98-107 [facility] Work Phone: Eosinophils/100 WBC (Bld) 4.1 % 0-5 [facility] Work Phone: Glucose [Mass/Vol] 127 mg/dL 74-106 [facility] Work Phone: Comment on above: Fasting Glucose resu lt greater than or equal to 126 mg/dL suggests DIABETES MELLITUS per A.D.A. criteria. Neutrophils (Bld) [#/Vol] 5.7 10*3/uL 2.0-7.7 [facility] Work Phone: Neutrophils/100 WBC (Bld) 66.6 % 47-70 [facility] Work Phone: Potassium [Moles/Vol] 3.7 mmol/L 3.5-5.1 [facility] Work Phone: Sodium [Moles/Vol] 136 mmol/L 136-145 [facility] Work Phone: WBC (Bld) [#/Vol] 8.5 10*3/uL 4.4-11.0 [facility] Work Phone: Blood erythrocytes count (nu mber/volume)on 06-18-2021 RBC (Bld) [#/Vol] 4.20 10*6/uL 4.2-5.4 [facility] Work Phone: Blood hemoglobin measurement (mass/volume)on 06-18-2021 Hemoglobin (Bld) [Mass/Vol] 13.0 g/dL 12.0-15.0 [facility] Work Phone: Blood lymphocytes/100 leukoc yteson 06-18-2021 Lymphocytes/100 WBC (Bld) 21.3 % 19-41 [facility] Work Phone: Blood monocytes/100 leukocyt eson 06-18-2021 Monocytes/100 WBC (Bld) 7.4 % 0-10 [facility] Work Phone: Blood platelet mean volumeon 06-18-2021 Platelet mean volume (Bld) [Entitic vol] 10.5 fL 6.2-12.0 [facility] Work Phone: [phone] Determination of erythrocyte mean corpuscular volume (MCV)on 06-18-2021 MCV (RBC) [Entitic vol] 89.8 fL 81-99 [facility] Work Phone: Hematocrit Auto (Bld) [Volum e fraction]on 06-18-2021 Hematocrit (Bld) [Volume fraction] 37.7 % 37-47 [facility] Work Phone: INR in Blood by Coagulation assayon 06-18-2021 INR Coag (Bld) [Relative time] 2.3 {INR} [facility] Work Phone: Laboratory - Chemistry and C hemistry - challengeon 06-18-2021 CO2 [Moles/Vol] 28.0 mmol/L 21.0-32.0 [facility] Work Phone: Urea nitrogen/Creatinine [Mass ratio] 23.0 mg/mg 10-20 [facility] Work Phone: Laboratory - Coagulationon 0 06-18-2021 PT Coag (PPP) [Time] 24.7 s 11.7-14.9 [facility] Work Phone: Laboratory - Hematology and Cell countson 06-18-2021 Erythrocyte distribution width (RBC) [Entitic vol] 40.2 fL 35.1-43.9 [facility] Work Phone: Erythrocyte distribution width (RBC) [Ratio] 12.2 % 11.6-14.6 [facility] Work Phone: Immature granulocytes/100 WBC (Bld) 0.100 % 0.0-0.9 [facility] Work Phone: Comment on above: IG% - Immature Granu locytes (promyelocytes, myelocytes and metamyelocytes) > 1% indicates that a LEFT SHIFT is Present. MCH (RBC) [Entitic mass] 31.0 pg 27.0-32.0 [facility] Work Phone: Nucleated RBC/100 WBC (Bld) [Ratio] 0 % 0-5 [facility] Work Phone: MCHC Auto (RBC) [Mass/Vol]on 06-18-2021 MCHC (RBC) [Mass/Vol] 34.5 g/dL 32-36 [facility] Work Phone: No Panel Informationon 06-18 SARS-CoV-2 Antigen (Rapid) [facility] Work Phone: Estimated Creatinine Clearance Calc 32.17 ml/min [facility] Work Phone: Estimated GFR (MDRD) Amer 103 mL/min >60 [facility] Work Phone: Comment on above: GFR Calc Estimated GFR (MDRD) Non-Af Amer 85 mL/min >60 [facility] Work Phone: Comment on above: Non- GFR Calc Platelets bldon 06-18-2021 Platelets (Bld) [#/Vol] 180 10*3/uL 150-450 [facility] Work Phone: Serum or plasma calcium josué urement (mass/volume)on 06-18-2021 Calcium [Mass/Vol] 8.1 mg/dL 8.5-10.1 [facility] Work Phone: Serum or plasma creatinine m easurement (mass/volume)on 06-18-2021 Creatinine [Mass/Vol] 0.70 mg/dL 0.55-1.02 [facility] Work Phone: Comment on above: The validity of the calculated GFR & GFRAA in patients over 70 years has not been determined. Clinical correlation is essential. Serum or plasma urea nitroge n measurement (mass/volume)on 06-18-2021 Urea nitrogen [Mass/Vol] 16 mg/dL 7-18 [facility] Work Phone: Thin prep Papanicolaou smear with manual screeningon 06-18-2021 Thin prep Papanicolaou smear with manual screening 5 5-15 [facility] Work Phone: Basophil percentageon 2021 Bilirubin [Mass/Vol] 0.50 mg/dL 0.20-1.00 [facility] Work Phone: Comment on above: For patients on eltr ombopag therapy, use of [place] TBIL is not recommended. Protein [Mass/Vol] 6.8 g/dL 6.4-8.2 [facility] Work Phone: Laboratory - Chemistry and C hemistry - challengeon 06-17-2021 ALP [Catalytic activity/Vol] 68 U/L 45-117 [facility] Work Phone: ALT [Catalytic activity/Vol] 24 U/L 13-56 [facility] Work Phone: Globulin (S) [Mass/Vol] 3.7 g/dL 2.2-4.2 [facility] Work Phone: Serum or plasma albumin josué urement (mass/volume)on 06-17-2021 Albumin [Mass/Vol] 3.1 g/dL 3.2-5.0 [facility] Work Phone: Serum or plasma albumin/glob ulin mass ratioon 06-17-2021 Albumin/Globulin [Mass ratio] 0.8 {ratio} 0.9-2.4 [facility] Work Phone: Thin prep Papanicolaou smear with manual screeningon 06-17-2021 Thin prep Papanicolaou smear with manual screening 23 U/L 15-37 [facility] Work Phone: Laboratory - Coagulationon 0 06-10-2021 INR Coag (Bld) [Relative time] 2.0 {INR} [facility] Work Phone: Comment on above: Critical Value > 4.0 Whole blood prothrombin time on 06-10-2021 PT Coag (Bld) [Time] 22.8 s 11.9-14.4 [facility] Work Phone: Laboratory - Coagulationon 1 07-13-2020 INR Coag (Bld) [Relative time] 1.9 {INR} [facility] Work Phone: Comment on above: Critical Value > 4.0 Whole blood prothrombin time on 05-12-2021 PT Coag (Bld) [Time] 22.0 s 11.9-14.4 [facility] Work Phone: PROon 04-16-2019 INR Coag (PPP) [Relative time] 2.3 {INR} Normal [facility] ([place]) Comment on above: Order Comment: order ed secondary to warfarin order Result Comment: [employer] (CHEST, 1992, [id number]) recommended therapeutic range for oral anticoagulant therapy is: LOW RISK: Prophylaxis of venous thrombosis INR: 2.0-3.0 Treatment of pulmonary embolism 2.0-3.0 Prevention of systemic embolism 2.0-3.0 HIGH RISK: Mechanical prosthetic valves 2.5-3.5 Performed By: #### C BC, ADIFF, ANEU, PRO, CMP, GFR #### [address] [id number] PT Coag (PPP) [Time] 26.9 s High 9.0-14.6 [facility] ([place]) Comment on above: Order Comment: order ed secondary to warfarin order Result Comment: Effe ctive 12/11/07, Protime results may be affected by some antibiotics (i.e. Ciprofloxacin, Azithromycin, Bactrim) which may potentiate the action of oral anticoagulants, with further increases in Protime/INR. Performed By: #### C BC, ADIFF, ANEU, PRO, CMP, GFR #### [address] [address] .Auto Diffon 04-15-2019 Ammonia (P) [Mass/Vol] 0.50 10 3/mcL Normal 0.09-1.40 [facility] ([place]) Comment on above: Performed By: #### C BC, ADIFF, ANEU, PRO, CMP, GFR #### [address] [address] Basophils (Bld) [#/Vol] 0.10 10 3/mcL Normal 0.00-0.27 [facility] ([place]) Comment on above: Performed By: #### C BC, ADIFF, ANEU, PRO, CMP, GFR #### [address] [address] Basophils/100 WBC (Bld) 0.8 % Normal 0.0-2.5 [facility] ([place]) Comment on above: Performed By: #### C BC, ADIFF, ANEU, PRO, CMP, GFR #### [address] [address] Eosinophils (Bld) [#/Vol] 0.40 10 3/mcL Normal 0.00-0.65 [facility] ([place]) Comment on above: Performed By: #### C BC, ADIFF, ANEU, PRO, CMP, GFR #### [address] [address] Eosinophils/100 WBC (Bld) 5.9 % Normal 0.0-6.0 [facility] ([place]) Comment on above: Performed By: #### C BC, ADIFF, ANEU, PRO, CMP, GFR #### [address] [address] Lymphocytes (Bld) [#/Vol] 2.40 10 3/mcL Normal 0.90-4.32 [facility] ([place]) Comment on above: Performed By: #### C BC, ADIFF, ANEU, PRO, CMP, GFR #### [address] [address] Lymphocytes/100 WBC (Bld) 34.4 % Normal 20.0-40.0 [facility] ([place]) Comment on above: Performed By: #### C BC, ADIFF, ANEU, PRO, CMP, GFR #### [address] [address] Monocytes/100 WBC (Bld) 6.5 % Normal 2.0-13.0 [facility] ([place]) Comment on above: Performed By: #### C BC, ADIFF, ANEU, PRO, CMP, GFR #### [address] [address] Neutrophils/100 WBC (Bld) 52.4 % Normal 50.0-75.0 [facility] ([place]) Comment on above: Performed By: #### C BC, ADIFF, ANEU, PRO, CMP, GFR #### [address] [address] .GFRon 04-15-2019 GFR >[address] [facility] ([place]) Comment on above: Result Comment: GFR Population [...] BC, ADIFF, ANEU, PRO, CMP, GFR #### [address] [address] GFR Non- >60 Normal [facility] ([place]) Comment on above: Result Comment: GFR Population [...] BC, ADIFF, ANEU, PRO, CMP, GFR #### [address] [address] .NEUABSon 04-15-2019 Neutrophils (Bld) [#/Vol] 3.60 10 3/mcL Normal 2.25-8.10 [facility] ([place]) Comment on above: Performed By: #### C BC, ADIFF, ANEU, PRO, CMP, GFR #### [address] [address] BMPon 04-15-2019 Creatinine [Mass/Vol] 0.64 mg/dL Normal 0.50-1.20 [facility] ([place]) Comment on above: Performed By: #### C BC, ADIFF, ANEU, PRO, CMP, GFR #### [place] [address] Urea nitrogen/Creatinine [Mass ratio] 17.2 ratio Normal 10.0-22.0 [facility] ([place]) Comment on above: Performed By: #### C BC, ADIFF, ANEU, PRO, CMP, GFR #### [place] [address] Calcium [Mass/Vol] 7.9 mg/dL Low 8.4-10.1 [facility] ([place]) Comment on above: Performed By: #### C BC, ADIFF, ANEU, PRO, CMP, GFR #### [place] [address] Chloride [Moles/Vol] 109 mmol/L Normal 98-110 [facility] ([place]) Comment on above: Performed By: #### C BC, ADIFF, ANEU, PRO, CMP, GFR #### [place] [id number] CO2 [Moles/Vol] 29 mmol/L Normal 22-32 [facility] ([place]) Comment on above: Performed By: #### C BC, ADIFF, ANEU, PRO, CMP, GFR #### [place] [id number] Electrolyte Balance 6.0 mEq/L Normal 4.0-15.0 [facility] ([place]) Comment on above: Performed By: #### C BC, ADIFF, ANEU, PRO, CMP, GFR #### [place] [id number] Glucose [Mass/Vol] 100 mg/dL Normal 82-115 [facility] ([place]) Comment on above: Performed By: #### C BC, ADIFF, ANEU, PRO, CMP, GFR #### [place] [id number] Potassium [Moles/Vol] 4.0 mmol/L Normal 3.5-5.0 [facility] ([place]) Comment on above: Performed By: #### C BC, ADIFF, ANEU, PRO, CMP, GFR #### [place] [id number] Sodium [Moles/Vol] 144 mmol/L Normal 136-145 [facility] ([place]) Comment on above: Performed By: #### C BC, ADIFF, ANEU, PRO, CMP, GFR #### [place] [address] Urea nitrogen [Mass/Vol] 11.0 mg/dL Normal 8.0-22.0 [facility] ([place]) Comment on above: Performed By: #### C BC, ADIFF, ANEU, PRO, CMP, GFR #### [place] [id number] CBCon 04-15-2019 Erythrocyte distribution width (RBC) [Ratio] 13.5 % Normal 11.5-15.5 [facility] ([place]) Comment on above: Performed By: #### C BC, ADIFF, ANEU, PRO, CMP, GFR #### [place] [id number] Hematocrit (Bld) [Volume fraction] 33.9 % Low 34.0-46.0 [facility] ([place]) Comment on above: Performed By: #### C BC, ADIFF, ANEU, PRO, CMP, GFR #### [place] [id number] Hemoglobin (Bld) [Mass/Vol] 11.6 G/dL Low 12.0-16.0 [facility] ([place]) Comment on above: Performed By: #### C BC, ADIFF, ANEU, PRO, CMP, GFR #### [place] [id number] MCH (RBC) [Entitic mass] 31.8 pg Normal 27.0-33.0 [facility] ([place]) Comment on above: Performed By: #### C BC, ADIFF, ANEU, PRO, CMP, GFR #### [place] [id number] MCHC (RBC) [Mass/Vol] 34.3 G/dL Normal 32.0-36.0 [facility] ([place]) Comment on above: Performed By: #### C BC, ADIFF, ANEU, PRO, CMP, GFR #### [place] [id number] MCV (RBC) [Entitic vol] 92.7 fL Normal 80.0-99.0 [facility] ([place]) Comment on above: Performed By: #### C BC, ADIFF, ANEU, PRO, CMP, GFR #### [place] [id number] Platelet mean volume (Bld) [Entitic vol] 8.6 fL Normal 6.6-10.5 [facility] ([place]) Comment on above: Performed By: #### C BC, ADIFF, ANEU, PRO, CMP, GFR #### [place] [id number] Platelets (Bld) [#/Vol] 198 10 3/mcL Normal 150-450 [facility] ([place]) Comment on above: Performed By: #### C BC, ADIFF, ANEU, PRO, CMP, GFR #### [place] [id number] RBC (Bld) [#/Vol] 3.65 10 6/mcL Low 4.10-5.30 [facility] ([place]) Comment on above: Performed By: #### C BC, ADIFF, ANEU, PRO, CMP, GFR #### [place] [id number] WBC (Bld) [#/Vol] 6.90 10 3/mcL Normal 4.50-10.80 [facility] ([place]) Comment on above: Performed By: #### C BC, ADIFF, ANEU, PRO, CMP, GFR #### [place] [id number] MGon 04-15-2019 Magnesium [Mass/Vol] 2.2 mg/dL Normal 1.6-2.4 [facility] ([place]) Comment on above: Performed By: #### C BC, ADIFF, ANEU, PRO, CMP, GFR #### [address] [address] PROon 04-15-2019 INR Coag (PPP) [Relative time] 2.0 {INR} Normal [facility] ([place]) Comment on above: Order Comment: order ed secondary to warfarin order Result Comment: [employer] (CHEST, 1991, 102:312S-25S) recommended therapeutic range for oral anticoagulant therapy is: LOW RISK: Prophylaxis of venous thrombosis INR: 2.0-3.0 Treatment of pulmonary embolism 2.0-3.0 Prevention of systemic embolism 2.0-3.0 HIGH RISK: Mechanical prosthetic valves 2.5-3.5 Performed By: #### C BC, ADIFF, ANEU, PRO, CMP, GFR #### [address] [address] PT Coag (PPP) [Time] 23.4 s High 9.0-14.6 [facility] ([place]) Comment on above: Order Comment: order ed secondary to warfarin order Result Comment: Effe ctive 12/11/07, Protime results may be affected by some antibiotics (i.e. Ciprofloxacin, Azithromycin, Bactrim) which may potentiate the action of oral anticoagulants, with further increases in Protime/INR. Performed By: #### C BC, ADIFF, ANEU, PRO, CMP, GFR #### [address] [address] .Auto Diffon 04-14-2019 Ammonia (P) [Mass/Vol] 0.40 10 3/mcL Normal 0.09-1.40 [facility] ([place]) Comment on above: Performed By: #### C BC, ADIFF, ANEU, PRO, CMP, GFR #### [address] [address] Basophils (Bld) [#/Vol] 0.00 10 3/mcL Normal 0.00-0.27 [facility] ([place]) Comment on above: Performed By: #### C BC, ADIFF, ANEU, PRO, CMP, GFR #### [address] [address] Basophils/100 WBC (Bld) 0.6 % Normal 0.0-2.5 [facility] ([place]) Comment on above: Performed By: #### C BC, ADIFF, ANEU, PRO, CMP, GFR #### [address] [address] Eosinophils (Bld) [#/Vol] 0.30 10 3/mcL Normal 0.00-0.65 [facility] ([place]) Comment on above: Performed By: #### C BC, ADIFF, ANEU, PRO, CMP, GFR #### [address] [address] Eosinophils/100 WBC (Bld) 5.1 % Normal 0.0-6.0 [facility] ([place]) Comment on above: Performed By: #### C BC, ADIFF, ANEU, PRO, CMP, GFR #### [address] [address] Lymphocytes (Bld) [#/Vol] 2.30 10 3/mcL Normal 0.90-4.32 [facility] ([place]) Comment on above: Performed By: #### C BC, ADIFF, ANEU, PRO, CMP, GFR #### [address] [address] Lymphocytes/100 WBC (Bld) 35.3 % Normal 20.0-40.0 [facility] ([place]) Comment on above: Performed By: #### C BC, ADIFF, ANEU, PRO, CMP, GFR #### [address] [address] Monocytes/100 WBC (Bld) 6.9 % Normal 2.0-13.0 [facility] ([place]) Comment on above: Performed By: #### C BC, ADIFF, ANEU, PRO, CMP, GFR #### [address] [address] Neutrophils/100 WBC (Bld) 52.1 % Normal 50.0-75.0 [facility] ([place]) Comment on above: Performed By: #### C BC, ADIFF, ANEU, PRO, CMP, GFR #### [address] [address] .GFRon 04-14-2019 GFR >[address] [facility] ([place]) Comment on above: Result Comment: GFR Population [...] BC, ADIFF, ANEU, PRO, CMP, GFR #### [address] [address] GFR Non- >60 Normal [facility] ([place]) Comment on above: Result Comment: GFR Population [...] BC, ADIFF, ANEU, PRO, CMP, GFR #### [address] [address] .NEUABSon 04-14-2019 Neutrophils (Bld) [#/Vol] 3.30 10 3/mcL Normal 2.25-8.10 [facility] ([place]) Comment on above: Performed By: #### C BC, ADIFF, ANEU, PRO, CMP, GFR #### [address] [address] HbA1c (Bld) [Mass fraction] 6.1 % High 4.0-6.0 [facility] ([place]) Comment on above: Performed By: #### C BC, ADIFF, ANEU, PRO, CMP, GFR #### [place] [address] BMPon 04-14-2019 Calcium [Mass/Vol] 7.8 mg/dL Low 8.4-10.1 [facility] ([place]) Comment on above: Performed By: #### C BC, ADIFF, ANEU, PRO, CMP, GFR #### [place] [address] Chloride [Moles/Vol] 107 mmol/L Normal 98-110 [facility] ([place]) Comment on above: Performed By: #### C BC, ADIFF, ANEU, PRO, CMP, GFR #### [place] [id number] CO2 [Moles/Vol] 30 mmol/L Normal 22-32 [facility] ([place]) Comment on above: Performed By: #### C BC, ADIFF, ANEU, PRO, CMP, GFR #### [place] [address] Creatinine [Mass/Vol] 0.66 mg/dL Normal 0.50-1.20 [facility] ([place]) Comment on above: Performed By: #### C BC, ADIFF, ANEU, PRO, CMP, GFR #### [place] [address] Electrolyte Balance 5.0 mEq/L Normal 4.0-15.0 [facility] ([place]) Comment on above: Performed By: #### C BC, ADIFF, ANEU, PRO, CMP, GFR #### [place] [address] Glucose [Mass/Vol] 102 mg/dL Normal 82-115 [facility] ([place]) Comment on above: Performed By: #### C BC, ADIFF, ANEU, PRO, CMP, GFR #### [place] [address] Potassium [Moles/Vol] 3.9 mmol/L Normal 3.5-5.0 [facility] ([place]) Comment on above: Performed By: #### C BC, ADIFF, ANEU, PRO, CMP, GFR #### [place] [id number] Sodium [Moles/Vol] 142 mmol/L Normal 136-145 [facility] ([place]) Comment on above: Performed By: #### C BC, ADIFF, ANEU, PRO, CMP, GFR #### [place] [address] Urea nitrogen [Mass/Vol] 13.0 mg/dL Normal 8.0-22.0 [facility] ([place]) Comment on above: Performed By: #### C BC, ADIFF, ANEU, PRO, CMP, GFR #### [place] [address] Urea nitrogen/Creatinine [Mass ratio] 19.7 ratio Normal 10.0-22.0 [facility] ([place]) Comment on above: Performed By: #### C BC, ADIFF, ANEU, PRO, CMP, GFR #### [place] [id number] CBCon 04-14-2019 Erythrocyte distribution width (RBC) [Ratio] 13.1 % Normal 11.5-15.5 [facility] ([place]) Comment on above: Performed By: #### C BC, ADIFF, ANEU, PRO, CMP, GFR #### [place] [id number] Hematocrit (Bld) [Volume fraction] 33.9 % Low 34.0-46.0 [facility] ([place]) Comment on above: Performed By: #### C BC, ADIFF, ANEU, PRO, CMP, GFR #### [place] [id number] Hemoglobin (Bld) [Mass/Vol] 11.6 G/dL Low 12.0-16.0 [facility] ([place]) Comment on above: Performed By: #### C BC, ADIFF, ANEU, PRO, CMP, GFR #### [address] [address] MCH (RBC) [Entitic mass] 31.9 pg Normal 27.0-33.0 [facility] ([place]) Comment on above: Performed By: #### C BC, ADIFF, ANEU, PRO, CMP, GFR #### [place] [id number] MCHC (RBC) [Mass/Vol] 34.2 G/dL Normal 32.0-36.0 [facility] ([place]) Comment on above: Performed By: #### C BC, ADIFF, ANEU, PRO, CMP, GFR #### [place] [address] MCV (RBC) [Entitic vol] 93.4 fL Normal 80.0-99.0 [facility] ([place]) Comment on above: Performed By: #### C BC, ADIFF, ANEU, PRO, CMP, GFR #### [place] [id number] Platelet mean volume (Bld) [Entitic vol] 9.2 fL Normal 6.6-10.5 [facility] ([place]) Comment on above: Performed By: #### C BC, ADIFF, ANEU, PRO, CMP, GFR #### [place] [id number] Platelets (Bld) [#/Vol] 197 10 3/mcL Normal 150-450 [facility] ([place]) Comment on above: Performed By: #### C BC, ADIFF, ANEU, PRO, CMP, GFR #### [place] [id number] RBC (Bld) [#/Vol] 3.63 10 6/mcL Low 4.10-5.30 [facility] ([place]) Comment on above: Performed By: #### C BC, ADIFF, ANEU, PRO, CMP, GFR #### [place] [id number] WBC (Bld) [#/Vol] 6.40 10 3/mcL Normal 4.50-10.80 [facility] ([place]) Comment on above: Performed By: #### C BC, ADIFF, ANEU, PRO, CMP, GFR #### [address] [address] MGon 04-14-2019 Magnesium [Mass/Vol] 2.1 mg/dL Normal 1.6-2.4 [facility] ([place]) Comment on above: Performed By: #### C BC, ADIFF, ANEU, PRO, CMP, GFR #### [address] [address] PROon 04-14-2019 INR Coag (PPP) [Relative time] 1.8 {INR} Normal [facility] ([place]) Comment on above: Order Comment: order ed secondary to warfarin order Result Comment: The [employer] (CHEST, 1992, 102:312S-25S) recommended therapeutic range for oral anticoagulant therapy is: LOW RISK: Prophylaxis of venous thrombosis INR: 2.0-3.0 Treatment of pulmonary embolism 2.0-3.0 Prevention of systemic embolism 2.0-3.0 HIGH RISK: Mechanical prosthetic valves 2.5-3.5 Performed By: #### C BC, ADIFF, ANEU, PRO, CMP, GFR #### [place] [id number] PT Coag (PPP) [Time] 21.7 s High 9.0-14.6 [facility] ([place]) Comment on above: Order Comment: order ed secondary to warfarin order Result Comment: Effe ctive 12/11/07, Protime results may be affected by some antibiotics (i.e. Ciprofloxacin, Azithromycin, Bactrim) which may potentiate the action of oral anticoagulants, with further increases in Protime/INR. Performed By: #### C BC, ADIFF, ANEU, PRO, CMP, GFR #### [address] [address] .Auto Diffon 04-13-2019 Ammonia (P) [Mass/Vol] 0.60 10 3/mcL Normal 0.09-1.40 [facility] ([place]) Comment on above: Performed By: #### C BC, ADIFF, ANEU, BMP, GFR, LIPID, TROPI #### [address] [address] Basophils (Bld) [#/Vol] 0.00 10 3/mcL Normal 0.00-0.27 [facility] ([place]) Comment on above: Performed By: #### C BC, ADIFF, ANEU, BMP, GFR, LIPID, TROPI #### [address] [address] Basophils/100 WBC (Bld) 0.6 % Normal 0.0-2.5 [facility] ([place]) Comment on above: Performed By: #### C BC, ADIFF, ANEU, BMP, GFR, LIPID, TROPI #### [address] [address] Eosinophils (Bld) [#/Vol] 0.30 10 3/mcL Normal 0.00-0.65 [facility] ([place]) Comment on above: Performed By: #### C BC, ADIFF, ANEU, BMP, GFR, LIPID, TROPI #### [address] [address] Eosinophils/100 WBC (Bld) 4.5 % Normal 0.0-6.0 [facility] ([place]) Comment on above: Performed By: #### C BC, ADIFF, ANEU, BMP, GFR, LIPID, TROPI #### [address] [address] Lymphocytes (Bld) [#/Vol] 2.60 10 3/mcL Normal 0.90-4.32 [facility] ([place]) Comment on above: Performed By: #### C BC, ADIFF, ANEU, BMP, GFR, LIPID, TROPI #### [address] [address] Lymphocytes/100 WBC (Bld) 34.8 % Normal 20.0-40.0 [facility] ([place]) Comment on above: Performed By: #### C BC, ADIFF, ANEU, BMP, GFR, LIPID, TROPI #### [address] [address] Monocytes/100 WBC (Bld) 7.5 % Normal 2.0-13.0 [facility] ([place]) Comment on above: Performed By: #### C BC, ADIFF, ANEU, BMP, GFR, LIPID, TROPI #### [address] [address] Neutrophils/100 WBC (Bld) 52.6 % Normal 50.0-75.0 [facility] ([place]) Comment on above: Performed By: #### C BC, ADIFF, ANEU, BMP, GFR, LIPID, TROPI #### [address] [address] .GFRon 04-13-2019 GFR Non- >60 Normal [facility] ([place]) Comment on above: Result Comment: GFR Population [...] BC, ADIFF, ANEU, PRO, CMP, GFR #### [address] [address] GFR >[address] [facility] ([place]) Comment on above: Result Comment: GFR Population [...] BC, ADIFF, ANEU, PRO, CMP, GFR #### [address] [address] .NEUABSon 04-13-2019 Neutrophils (Bld) [#/Vol] 4.00 10 3/mcL Normal 2.25-8.10 [facility] ([place]) Comment on above: Performed By: #### C BC, ADIFF, ANEU, PRO, CMP, GFR #### [address] [address] BMPon 04-13-2019 Calcium [Mass/Vol] 7.8 mg/dL Low 8.4-10.1 [facility] ([place]) Comment on above: Performed By: #### C BC, ADIFF, ANEU, PRO, CMP, GFR #### [place] [address] Chloride [Moles/Vol] 106 mmol/L Normal 98-110 [facility] ([place]) Comment on above: Performed By: #### C BC, ADIFF, ANEU, PRO, CMP, GFR #### [place] [address] CO2 [Moles/Vol] 31 mmol/L Normal 22-32 [facility] ([place]) Comment on above: Performed By: #### C BC, ADIFF, ANEU, PRO, CMP, GFR #### [place] [address] Creatinine [Mass/Vol] 0.74 mg/dL Normal 0.50-1.20 [facility] ([place]) Comment on above: Performed By: #### C BC, ADIFF, ANEU, PRO, CMP, GFR #### [place] [address] Electrolyte Balance 6.0 mEq/L Normal 4.0-15.0 [facility] ([place]) Comment on above: Performed By: #### C BC, ADIFF, ANEU, PRO, CMP, GFR #### [place] [address] Glucose [Mass/Vol] 107 mg/dL Normal 82-115 [facility] ([place]) Comment on above: Performed By: #### C BC, ADIFF, ANEU, PRO, CMP, GFR #### [address] [address] Potassium [Moles/Vol] 4.0 mmol/L Normal 3.5-5.0 [facility] ([place]) Comment on above: Performed By: #### C BC, ADIFF, ANEU, PRO, CMP, GFR #### [address] [address] Sodium [Moles/Vol] 143 mmol/L Normal 136-145 [facility] ([place]) Comment on above: Performed By: #### C BC, ADIFF, ANEU, PRO, CMP, GFR #### [place] [id number] Urea nitrogen [Mass/Vol] 16.0 mg/dL Normal 8.0-22.0 [facility] ([place]) Comment on above: Performed By: #### C BC, ADIFF, ANEU, PRO, CMP, GFR #### [place] [id number] Urea nitrogen/Creatinine [Mass ratio] 21.6 ratio Normal 10.0-22.0 [facility] ([place]) Comment on above: Performed By: #### C BC, ADIFF, ANEU, PRO, CMP, GFR #### [place] [id number] CBCon 04-13-2019 WBC (Bld) [#/Vol] 7.50 10 3/mcL Normal 4.50-10.80 [facility] ([place]) Comment on above: Result Comment: No n ormals available: specimen drawn from IV arm. Performed By: #### C BC, ADIFF, ANEU, BMP, GFR, LIPID, TROPI #### [address] [address] Erythrocyte distribution width (RBC) [Ratio] 13.5 % Normal 11.5-15.5 [facility] ([place]) Comment on above: Performed By: #### C BC, ADIFF, ANEU, BMP, GFR, LIPID, TROPI #### [place] [id number] Hematocrit (Bld) [Volume fraction] 32.9 % Low 34.0-46.0 [facility] ([place]) Comment on above: Performed By: #### C BC, ADIFF, ANEU, BMP, GFR, LIPID, TROPI #### [place] [id number] Hemoglobin (Bld) [Mass/Vol] 10.9 G/dL Low 12.0-16.0 [facility] ([place]) Comment on above: Performed By: #### C BC, ADIFF, ANEU, BMP, GFR, LIPID, TROPI #### [place] [id number] MCH (RBC) [Entitic mass] 31.2 pg Normal 27.0-33.0 [facility] ([place]) Comment on above: Performed By: #### C BC, ADIFF, ANEU, BMP, GFR, LIPID, TROPI #### [place] [id number] MCHC (RBC) [Mass/Vol] 33.2 G/dL Normal 32.0-36.0 [facility] ([place]) Comment on above: Performed By: #### C BC, ADIFF, ANEU, BMP, GFR, LIPID, TROPI #### [place] [id number] MCV (RBC) [Entitic vol] 94.0 fL Normal 80.0-99.0 [facility] ([place]) Comment on above: Performed By: #### C BC, ADIFF, ANEU, BMP, GFR, LIPID, TROPI #### [place] [id number] Platelet mean volume (Bld) [Entitic vol] 8.4 fL Normal 6.6-10.5 [facility] ([place]) Comment on above: Performed By: #### C BC, ADIFF, ANEU, BMP, GFR, LIPID, TROPI #### [place] [id number] Platelets (Bld) [#/Vol] 188 10 3/mcL Normal 150-450 [facility] ([place]) Comment on above: Performed By: #### C BC, ADIFF, ANEU, BMP, GFR, LIPID, TROPI #### [address] [place], [place] [address] RBC (Bld) [#/Vol] 3.49 10 6/mcL Low 4.10-5.30 [facility] ([place]) Comment on above: Performed By: #### C BC, ADIFF, ANEU, BMP, GFR, LIPID, TROPI #### [address] [address] [address] ANGIOGRAPHY HEAD W/ CONTR Tariq 04-13-2019 [...] 8:46:53 PM Ordering Provider:Naomie Solano [facility] ([place]) CT ANGIOGRAPHY NECK W/CONTRA STon 04-13-2019 CT [...] 8:25:57 PM Ordering Provider:Naomie Solano [facility] ([place]) LIPIDon 04-13-2019 Cholesterol in HDL [Mass/Vol] 30 mg/dL Low 40-59 [facility] ([place]) Comment on above: Result Comment: HDL Reference Interval: Less than 40 Low - high risk 60 or above Optimal/lowers risk Performed By: #### C BC, ADIFF, ANEU, PRO, CMP, GFR #### [facility] [address] [place] [address] Cholesterol in LDL [Mass/Vol] 78 mg/dL Normal 0-129 [facility] ([place]) Comment on above: Result Comment: LDL is a calculated result and requires a 12-hr fast. LDL Reference Interval: Less than 100 Optimal 100-129 Near or above optimal 130-159 Borderline high risk 160-189 High risk 190 and above Very high risk Performed By: #### C BC, ADIFF, ANEU, PRO, CMP, GFR #### [facility] [address] [place] [address] Cholesterol [Mass/Vol] 135 mg/dL Normal 50-199 [facility] ([place]) Comment on above: Result Comment: Chol esterol Reference Interval: Less than 200 Desirable 200-239 Borderline high risk 240 and above High risk Performed By: #### C BC, ADIFF, ANEU, PRO, CMP, GFR #### [place] [id number] [place] [address] Triglyceride [Mass/Vol] 134 mg/dL Normal 3-149 [facility] ([place]) Comment on above: Result Comment: Trig lyceride Reference Interval: Less than 150 Normal 150-199 Borderline high risk 200-499 High risk 500 or higher Very high risk Performed By: #### C BC, ADIFF, ANEU, PRO, CMP, GFR #### [place] [id number] [place] [address] MRI BRAIN W/O CONTRASTon MRI BRAIN W/O [...] 11:39:49 AM Ordering Provider:Naomie Solano [facility] ([place]) PROon 04-13-2019 INR Coag (PPP) [Relative time] 1.8 {INR} Normal [facility] Comment on above: Order Comment: order ed secondary to warfarin order Result Comment: [employer] (CHEST, 1992, 102:312S-25S) recommended therapeutic range for oral anticoagulant therapy is: LOW RISK: Prophylaxis of venous thrombosis INR: 2.0-3.0 Treatment of pulmonary embolism 2.0-3.0 Prevention of systemic embolism 2.0-3.0 HIGH RISK: Mechanical prosthetic valves 2.5-3.5 Performed By: #### C BC, ADIFF, ANEU, PRO, CMP, GFR #### [address] [address] PT Coag (PPP) [Time] 21.0 s High 9.0-14.6 [facility] ([place]) Comment on above: Order Comment: order ed secondary to warfarin order Result Comment: Effe ctive 12/11/07, Protime results may be affected by some antibiotics (i.e. Ciprofloxacin, Azithromycin, Bactrim) which may potentiate the action of oral anticoagulants, with further increases in Protime/INR. Performed By: #### C BC, ADIFF, ANEU, PRO, CMP, GFR #### [address] [address] TROPIon 04-13-2019 Troponin I.cardiac [Mass/Vol] ng/mL Normal 0.000-0.040 [facility] ([place]) Comment on above: Result Comment: Trop onin I reference ranges (02/03/14): 0.00-0.040 ng/mL Negative and non-diagnostic. >0.040 ng/mL Consistent with cardiac damage, increased clinical risk and possibility of myocardial infarction. Serial measurements, a rise & fall in test results, clinical history, appropriate symptoms and/or ECG changes may help assess possibility of TN. *Other non-acute coronary syndrome conditions such as CHF, myocarditis, pulmonary emboli, sepsis and cardiac surgery could result in myocardial damage and increased troponin levels. Performed By: #### C BC, ADIFF, ANEU, PRO, CMP, GFR #### [address] [address] Troponin I.cardiac [Mass/Vol] ng/mL Normal 0.000-0.040 [facility] ([place]) Comment on above: Result Comment: Trop onin I reference ranges (02/03/14): 0.00-0.040 ng/mL Negative and non-diagnostic. >0.040 ng/mL Consistent with cardiac damage, increased clinical risk and possibility of myocardial infarction. Serial measurements, a rise & fall in test results, clinical history, appropriate symptoms and/or ECG changes may help assess possibility of TN. *Other non-acute coronary syndrome conditions such as CHF, myocarditis, pulmonary emboli, sepsis and cardiac surgery could result in myocardial damage and increased troponin levels. Performed By: #### T NILDAI #### [address] [address] Troponin I.cardiac [Mass/Vol] ng/mL Normal 0.000-0.040 [facility] ([place]) Comment on above: Result Comment: Trop onin I reference ranges (02/03/14): 0.00-0.040 ng/mL Negative and non-diagnostic. >0.040 ng/mL Consistent with cardiac damage, increased clinical risk and possibility of myocardial infarction. Serial measurements, a rise & fall in test results, clinical history, appropriate symptoms and/or ECG changes may help assess possibility of TN. *Other non-acute coronary syndrome conditions such as CHF, myocarditis, pulmonary emboli, sepsis and cardiac surgery could result in myocardial damage and increased troponin levels. Performed By: #### T CLOTILDE #### [address] [address] .Auto Diffon 04-12-2019 Ammonia (P) [Mass/Vol] 0.60 10 3/mcL Normal 0.09-1.40 [facility] ([place]) Comment on above: Performed By: #### C BC, ADIFF, ANEU, PRO, CMP, GFR #### [address] [address] Basophils (Bld) [#/Vol] 0.10 10 3/mcL Normal 0.00-0.27 [facility] ([place]) Comment on above: Performed By: #### C BC, ADIFF, ANEU, PRO, CMP, GFR #### [address] [address] Basophils/100 WBC (Bld) 0.6 % Normal 0.0-2.5 [facility] ([place]) Comment on above: Performed By: #### C BC, ADIFF, ANEU, PRO, CMP, GFR #### [address] [address] Eosinophils (Bld) [#/Vol] 0.40 10 3/mcL Normal 0.00-0.65 [facility] ([place]) Comment on above: Performed By: #### C BC, ADIFF, ANEU, PRO, CMP, GFR #### [address] [address] Eosinophils/100 WBC (Bld) 4.4 % Normal 0.0-6.0 [facility] ([place]) Comment on above: Performed By: #### C BC, ADIFF, ANEU, PRO, CMP, GFR #### [address] [address] Lymphocytes (Bld) [#/Vol] 3.20 10 3/mcL Normal 0.90-4.32 [facility] ([place]) Comment on above: Performed By: #### C BC, ADIFF, ANEU, PRO, CMP, GFR #### [address] [address] Lymphocytes/100 WBC (Bld) 37.2 % Normal 20.0-40.0 [facility] ([place]) Comment on above: Performed By: #### C BC, ADIFF, ANEU, PRO, CMP, GFR #### [address] [address] Monocytes/100 WBC (Bld) 6.7 % Normal 2.0-13.0 [facility] ([place]) Comment on above: Performed By: #### C BC, ADIFF, ANEU, PRO, CMP, GFR #### [address] [address] Neutrophils/100 WBC (Bld) 51.1 % Normal 50.0-75.0 [facility] ([place]) Comment on above: Performed By: #### C BC, ADIFF, ANEU, PRO, CMP, GFR #### [address] [address] .GFRon 04-12-2019 GFR >[address] [facility] ([place]) Comment on above: Result Comment: GFR Population [...] BC, ADIFF, ANEU, PRO, CMP, GFR #### [address] [address] GFR Non- >60 Normal [facility] ([place]) Comment on above: Result Comment: GFR Population [...] BC, ADIFF, ANEU, PRO, CMP, GFR #### [address] [address] .NEUABSon 04-12-2019 Neutrophils (Bld) [#/Vol] 4.40 10 3/mcL Normal 2.25-8.10 [facility] ([place]) Comment on above: Performed By: #### C BC, ADIFF, ANEU, PRO, CMP, GFR #### [place] [id number] CBCon 04-12-2019 Erythrocyte distribution width (RBC) [Ratio] 13.5 % Normal 11.5-15.5 [facility] ([place] Comment on above: Performed By: #### C BC, ADIFF, ANEU, PRO, CMP, GFR #### [place] [address] Hematocrit (Bld) [Volume fraction] 35.5 % Normal 34.0-46.0 [facility] ([place]) Comment on above: Performed By: #### C BC, ADIFF, ANEU, PRO, CMP, GFR #### [place] [address] Hemoglobin (Bld) [Mass/Vol] 12.0 G/dL Normal 12.0-16.0 [facility] ([place]) Comment on above: Performed By: #### C BC, ADIFF, ANEU, PRO, CMP, GFR #### [place] [address] MCH (RBC) [Entitic mass] 32.0 pg Normal 27.0-33.0 [facility] ([place]) Comment on above: Performed By: #### C BC, ADIFF, ANEU, PRO, CMP, GFR #### [place] [address] MCHC (RBC) [Mass/Vol] 33.8 G/dL Normal 32.0-36.0 [facility] ([place]) Comment on above: Performed By: #### C BC, ADIFF, ANEU, PRO, CMP, GFR #### [facility] [address] [place], [place] [address] MCV (RBC) [Entitic vol] 94.7 fL Normal 80.0-99.0 [facility] ([place]) Comment on above: Performed By: #### C BC, ADIFF, ANEU, PRO, CMP, GFR #### [place] [address] Platelet mean volume (Bld) [Entitic vol] 8.7 fL Normal 6.6-10.5 [facility] ([place]) Comment on above: Performed By: #### C BC, ADIFF, ANEU, PRO, CMP, GFR #### [place] [address] Platelets (Bld) [#/Vol] 209 10 3/mcL Normal 150-450 [facility] ([place]) Comment on above: Performed By: #### C BC, ADIFF, ANEU, PRO, CMP, GFR #### [place] [id number] RBC (Bld) [#/Vol] 3.75 10 6/mcL Low 4.10-5.30 [facility] ([place]) Comment on above: Performed By: #### C BC, ADIFF, ANEU, PRO, CMP, GFR #### [place] [id number] WBC (Bld) [#/Vol] 8.60 10 3/mcL Normal 4.50-10.80 [facility] ([place]) Comment on above: Performed By: #### C BC, ADIFF, ANEU, PRO, CMP, GFR #### [place] [address] CMPon 04-12-2019 Albumin/Globulin [Mass ratio] 1.0 {ratio} Normal 0.9-1.6 [facility] ([place]) Comment on above: Performed By: #### C BC, ADIFF, ANEU, PRO, CMP, GFR #### [place] [address] ALP [Catalytic activity/Vol] 72 U/L Normal 38-126 [facility] ([place]) Comment on above: Performed By: #### C BC, ADIFF, ANEU, PRO, CMP, GFR #### [address] [address] Bili Total 0.3 mg/dL Normal 0.2-1.2 [facility] ([place] Comment on above: Performed By: #### C BC, ADIFF, ANEU, PRO, CMP, GFR #### [address] [address] Creatinine [Mass/Vol] 0.66 mg/dL Normal 0.50-1.20 [facility] ([place]) Comment on above: Performed By: #### C BC, ADIFF, ANEU, PRO, CMP, GFR #### [address] [address] Globulin (S) [Mass/Vol] 3.0 G/dL Normal 1.5-3.8 [facility] ([place]) Comment on above: Performed By: #### C BC, ADIFF, ANEU, PRO, CMP, GFR #### [place] [id number] Protein [Mass/Vol] 6.0 G/dL Normal 6.0-8.5 [facility] ([place]) Comment on above: Performed By: #### C BC, ADIFF, ANEU, PRO, CMP, GFR #### [address] [address] Urea nitrogen/Creatinine [Mass ratio] 27.3 ratio High 10.0-22.0 [facility] ([place] Comment on above: Performed By: #### C BC, ADIFF, ANEU, PRO, CMP, GFR #### [address] [address] Albumin [Mass/Vol] 3.0 G/dL Low 3.2-4.8 [facility] ([place]) Comment on above: Performed By: #### C BC, ADIFF, ANEU, PRO, CMP, GFR #### [address] [address] ALT [Catalytic activity/Vol] 24 U/L Normal 10-49 [facility] ([place]) Comment on above: Performed By: #### C BC, ADIFF, ANEU, PRO, CMP, GFR #### [address] [address] AST [Catalytic activity/Vol] 20 U/L Normal 8-34 [facility] ([place] Comment on above: Performed By: #### C BC, ADIFF, ANEU, PRO, CMP, GFR #### [address] [address] Calcium [Mass/Vol] 8.2 mg/dL Low 8.4-10.1 [facility] ([place] Comment on above: Performed By: #### C BC, ADIFF, ANEU, PRO, CMP, GFR #### [address] [address] Chloride [Moles/Vol] 105 mmol/L Normal 98-110 [facility] ([place]) Comment on above: Performed By: #### C BC, ADIFF, ANEU, PRO, CMP, GFR #### [address] [address] CO2 [Moles/Vol] 28 mmol/L Normal 22-32 [facility] ([place] Comment on above: Performed By: #### C BC, ADIFF, ANEU, PRO, CMP, GFR #### [place] [id number] Electrolyte Balance 8.0 mEq/L Normal 4.0-15.0 [facility] ([place]) Comment on above: Performed By: #### C BC, ADIFF, ANEU, PRO, CMP, GFR #### [address] [address] Glucose [Mass/Vol] 108 mg/dL Normal 82-115 [facility] ([place]) Comment on above: Performed By: #### C BC, ADIFF, ANEU, PRO, CMP, GFR #### [address] [address] Potassium [Moles/Vol] 3.7 mmol/L Normal 3.5-5.0 [facility] ([place]) Comment on above: Performed By: #### C BC, ADIFF, ANEU, PRO, CMP, GFR #### [place] [id number] Sodium [Moles/Vol] 141 mmol/L Normal 136-145 [facility] ([place]) Comment on above: Performed By: #### C BC, ADIFF, ANEU, PRO, CMP, GFR #### [address] [address] Urea nitrogen [Mass/Vol] 18.0 mg/dL Normal 8.0-22.0 [facility] Comment on above: Performed By: #### C BC, ADIFF, ANEU, PRO, CMP, GFR #### [facility] [address] [place] [id number] PROon 04-12-2019 INR Coag (PPP) [Relative time] 1.8 {INR} Normal [facility] ([place]) Comment on above: Result Comment: The [employer] (CHEST, 1992, [id number]) recommended therapeutic range for oral anticoagulant therapy is: LOW RISK: Prophylaxis of venous thrombosis INR: 2.0-3.0 Treatment of pulmonary embolism 2.0-3.0 Prevention of systemic embolism 2.0-3.0 HIGH RISK: Mechanical prosthetic valves 2.5-3.5 Performed By: #### C BC, ADIFF, ANEU, PRO, CMP, GFR #### [address] [address] PT Coag (PPP) [Time] 20.9 s High 9.0-14.6 [facility] ([place]) Comment on above: Result Comment: Effe ctive 12/11/07, Protime results may be affected by some antibiotics (i.e. Ciprofloxacin, Azithromycin, Bactrim) which may potentiate the action of oral anticoagulants, with further increases in Protime/INR. Performed By: #### C BC, ADIFF, ANEU, PRO, CMP, GFR #### [address] [address] CNCOon 09-08-2017 [facility] Letter Text [facility] [id number] [place] [id number]: [phone] DsgdjjjFredo Kathleen MDAprlatricia 2017Colette Richardson3383 [facility] [id number] Richardson,We missed seeing you for your scheduled appointment with Dr. Kathleen on09/05/17.Our goal is to offer the best possible care to our patients, so we areconcerned when you are unable to keep a scheduled appointment.Please call us at [phone] so that we can reschedule your appointment fora day and time that will work for you.If you find it difficult to keep your appointment, please notify our officeat least 24 hours in advance so that we may reschedule your appointment.We are glad that you have chosen [facility] for yourcardiovascular needs and hope to continue serving you in the future.Sincerely,Sarath Kathleen MD(Signed electronically to expedite mailing) Normal [facility] Culture, urine Bacteria identified Cx Nom (U) Culture exhibits no growth. [facility] Work Phone: Bacteria identified Cx Nom (U) Staphylococcus epidermidis [facility] Work Phone: Influenza virus A and B and SARS-CoV-2 (COVID-19) Ag panel - Upper respiratory specim SARS-CoV-2 (COVID-19) RNA REMINGTON+probe Ql (Resp) [facility] Work Phone: Laboratory - Microbiology an d Antimicrobial susceptibility Bacteria identified Cx Nom (Bld) No growth in 5 days. [facility] Work Phone: No Panel Information SARS-CoV-2 & FLU Antigen (Rapid) [facility] Work Phone: Vital Signs Date Time Vital Sign Value Performing Clinician Faci lity 12-17-2024 10:56-0400 Body mass index (BMI) [Ratio] 27.9 kg/m2 Diana Mckeon MD Work Phone: [facility] 12-17-2024 10:56-0400 Body weight 64.8 kg Diana Mckeon MD Work Phone: [facility] 12-17-2024 10:56-0400 SaO2% (BldA) [Mass fraction] 96 % Diana Mckeon MD Work Phone: [facility] 10-09-2024 20:54-0400 Body temperature 98 [degF] Dr. Melo Monzon MD [facility] 10-09-2024 20:54-0400 Diastolic blood pressure 80 mm[Hg] Dr. Melo Monzon MD [facility] 10-09-2024 20:54-0400 Heart rate 68 /min Dr. Melo Monzon MD [facility] 10-09-2024 20:54-0400 Respiratory rate 18 /min Dr. Melo Monzon MD [facility] 10-09-2024 20:54-0400 SaO2% (BldA) [Mass fraction] 96 % Dr. Melo Monzon MD [facility] 10-09-2024 20:54-0400 Systolic blood pressure 188 mm[Hg] Dr. Melo Monzon MD [facility] 10-09-2024 19:02-0400 Body height 154.[address] Melo Monzon MD [facility] 10-09-2024 19:02-0400 Body mass index (BMI) [Ratio] 27.6 kg/m2 Dr. Melo Monzon MD [facility] 10-09-2024 19:02-0400 Body weight 66.[address] Melo Monzon MD [facility] 02-02-2023 18:43-0400 Diastolic blood pressure 92 mm[Hg] Dr. Hortensia Unger Work Phone: [facility] 02-02-2023 18:43-0400 Heart rate 66 /min Dr. Hortensia Unger Work Phone: [facility] 02-02-2023 18:43-0400 Systolic blood pressure 186 mm[Hg] Dr. Hortensia Unger Work Phone: [facility] 02-02-2023 15:12-0400 Body height 154.[address] Hortensia Unger Work Phone: [facility] 02-02-2023 15:12-0400 Body temperature 97.9 [degF] Dr. Hortensia Unger Work Phone: [facility] 02-02-2023 15:12-0400 Respiratory rate 18 /min Dr. Hortensia Unger Work Phone: [facility] 02-02-2023 15:12-0400 SaO2% (BldA) [Mass fraction] 97 % Dr. Hortensia Unger Work Phone: [facility] 01-09-2023 10:02-0400 Body mass index (BMI) [Ratio] 30.1 kg/m2 Dr. Hortensia Unger Work Phone: [facility] 01-09-2023 10:02-0400 Body temperature 98 [degF] Dr. Hortensia Unger Work Phone: [facility] 01-09-2023 10:02-0400 Body weight 72.[address] Hortensia Unger Work Phone: [facility] 01-09-2023 10:02-0400 Diastolic blood pressure 60 mm[Hg] Dr. Hortensia Unger Work Phone: [facility] 01-09-2023 10:02-0400 Heart rate 63 /min Dr. Hortensia Unger Work Phone: [facility] 01-09-2023 10:02-0400 Respiratory rate 17 /min Dr. Hortensia Unger Work Phone: [facility] 01-09-2023 10:02-0400 SaO2% (BldA) [Mass fraction] 95 % Dr. Hortensia Unger Work Phone: [facility] 01-09-2023 10:02-0400 Systolic blood pressure 140 mm[Hg] Dr. Hortensia Unger Work Phone: [facility] 06-17-2022 14:56-0500 Body temperature 98.2 [degF] Dr. Hortensia Unger Work Phone: [facility] 06-17-2022 14:56-0500 Diastolic blood pressure 65 mm[Hg] Dr. Hortensia Unger Work Phone: [facility] 06-17-2022 14:56-0500 Heart rate 62 /min Dr. Hortensia Unger Work Phone: [facility] 06-17-2022 14:56-0500 Respiratory rate 18 /min Dr. Hortensia Unger Work Phone: [facility] 06-17-2022 14:56-0500 SaO2% (BldA) [Mass fraction] 95 % Dr. Hortensia Unger Work Phone: [facility] 06-17-2022 14:56-0500 Systolic blood pressure 116 mm[Hg] Dr. Hortensia Unger Work Phone: [facility] 06-17-2022 11:51-0500 Body mass index (BMI) [Ratio] 32.6 kg/m2 Dr. Hortensia Unger Work Phone: [facility] 06-16-2022 18:14-0500 Diastolic blood pressure 67 mm[Hg] [facility] 06-16-2022 18:14-0500 Systolic blood pressure 156 mm[Hg] [facility] 06-16-2022 18:07-0500 Body height 154.[address] Hortensia Unger Work Phone: [facility] 06-16-2022 18:07-0500 Body weight 78.[address] Hortensia Unger Work Phone: [facility] 06-16-2022 17:33-0500 Body temperature 97.6 [degF] [facility] 06-16-2022 17:33-0500 Heart rate 67 /min [facility] 06-16-2022 17:33-0500 Respiratory rate 20 /min [facility] 06-16-2022 17:33-0500 SaO2% (BldA) [Mass fraction] 95 % [facility] 06-16-2022 12:16-0500 Body height 154.99 cm [facility] 06-16-2022 12:16-0500 Body mass index (BMI) [Ratio] 32.6 kg/m2 [facility] 06-16-2022 12:16-0500 Body weight 78.4 kg [facility] 03-07-2022 18:00-0400 Body temperature 97.8 [degF] [facility] 03-07-2022 18:00-0400 Diastolic blood pressure 89 mm[Hg] [facility] 03-07-2022 18:00-0400 Heart rate 83 /min [facility] 03-07-2022 18:00-0400 Respiratory rate 18 /min [facility] 03-07-2022 18:00-0400 SaO2% (BldA) [Mass fraction] 94 % [facility] 03-07-2022 18:00-0400 Systolic blood pressure 126 mm[Hg] [facility] 03-07-2022 14:47-0400 Body height 154.94 cm [facility] Work Phone: 03-07-2022 14:47-0400 Body mass index (BMI) [Ratio] 31.4 kg/m2 [facility] 03-07-2022 14:47-0400 Body weight 75.29 kg [facility] 03-07-2022 14:47-0400 Inhaled oxygen flow rate 2 L/min [facility] 11-12-2021 13:19-0400 Body temperature 98.5 [degF] Dr. Joao Simon Work Phone: [facility] Work Phone: 11-12-2021 13:19-0400 Diastolic blood pressure 83 mm[Hg] Dr. Joao Simon Work Phone: [facility] Work Phone: 11-12-2021 13:19-0400 Heart rate 63 /min Dr. Joao Simon Work Phone: [facility] Work Phone: 11-12-2021 13:19-0400 Respiratory rate 16 /min Dr. Joao Simon Work Phone: [facility] Work Phone: 11-12-2021 13:19-0400 SaO2% (BldA) [Mass fraction] 98 % Dr. Joao Simon Work Phone: [facility] Work Phone: 11-12-2021 13:19-0400 Systolic blood pressure 131 mm[Hg] Dr. Joao Simon Work Phone: [facility] Work Phone: 11-10-2021 12:44-0400 Body height 152.[address] Joao Simon Work Phone: [facility] Work Phone: 11-10-2021 12:44-0400 Body weight 75.[address] Joao Simon Work Phone: [facility] Work Phone: 11-10-2021 09:26-0400 Diastolic blood pressure 61 mm[Hg] Dr. Joao Simon Work Phone: [facility] Work Phone: 11-10-2021 09:26-0400 Heart rate 70 /min Dr. Joao Simon Work Phone: [facility] Work Phone: 11-10-2021 09:26-0400 Systolic blood pressure 131 mm[Hg] Dr. Joao Simon Work Phone: [facility] Work Phone: 11-09-2021 14:57-0400 Body weight 75.[address] Joao Simon Work Phone: [facility] Work Phone: 11-09-2021 14:00-0400 Body temperature 97.6 [degF] Dr. Joao Simon Work Phone: [facility] Work Phone: 11-09-2021 14:00-0400 Respiratory rate 16 /min Dr. Joao Simon Work Phone: [facility] Work Phone: 11-09-2021 14:00-0400 SaO2% (BldA) [Mass fraction] 97 % Dr. Joao Simon Work Phone: [facility] Work Phone: 11-05-2021 16:00-0400 Body height 152.[address] Joao Simon Work Phone: [facility] Work Phone: 11-04-2021 18:29-0400 Body mass index (BMI) [Ratio] 33.1 kg/m2 Dr. Joao Simon Work Phone: [facility] Work Phone: 11-04-2021 14:52-0400 Body temperature 98 [degF] Dr. Joao Simon Work Phone: [facility] Work Phone: 11-04-2021 14:52-0400 Diastolic blood pressure 57 mm[Hg] Dr. Joao Simon Work Phone: [facility] Work Phone: 11-04-2021 14:52-0400 Heart rate 72 /min Dr. Joao Simon Work Phone: [facility] Work Phone: 11-04-2021 14:52-0400 Respiratory rate 16 /min Dr. Joao Simon Work Phone: [facility] Work Phone: 11-04-2021 14:52-0400 SaO2% (BldA) [Mass fraction] 97 % Dr. Joao Simon Work Phone: [facility] Work Phone: 11-04-2021 14:52-0400 Systolic blood pressure 138 mm[Hg] Dr. Joao Simon Work Phone: [facility] Work Phone: 11-02-2021 17:39-0400 Body height 152.[address] Joao Simon Work Phone: [facility] Work Phone: 11-02-2021 17:39-0400 Body mass index (BMI) [Ratio] 32.1 kg/m2 Dr. Joao Simon Work Phone: [facility] Work Phone: 11-02-2021 17:39-0400 Body weight 74.[address] Joao Simon Work Phone: [facility] Work Phone: 11-02-2021 17:03-0400 Heart rate 74 /min Dr. Joao Simon Work Phone: [facility] Work Phone: 11-02-2021 15:36-0400 Body temperature 98.7 [degF] Dr. Joao Simon Work Phone: [facility] Work Phone: 11-02-2021 15:36-0400 Diastolic blood pressure 86 mm[Hg] Dr. Joao Simon Work Phone: [facility] Work Phone: 11-02-2021 15:36-0400 Respiratory rate 17 /min Dr. Joao Simon Work Phone: [facility] Work Phone: 11-02-2021 15:36-0400 SaO2% (BldA) [Mass fraction] 95 % Dr. Joao Simon Work Phone: [facility] Work Phone: 11-02-2021 15:36-0400 Systolic blood pressure 169 mm[Hg] Dr. Joao Simon Work Phone: [facility] Work Phone: 11-02-2021 11:48-0400 Body height 152.[address] Joao Simon Work Phone: [facility] Work Phone: 11-02-2021 11:48-0400 Body mass index (BMI) [Ratio] 32.8 kg/m2 Dr. Joao Simon Work Phone: [facility] Work Phone: 11-02-2021 11:48-0400 Body weight 76.[address] Joao Simon Work Phone: [facility] Work Phone: 09-29-2021 14:32-0400 Body mass index (BMI) [Ratio] 32.5 kg/m2 Dr. Joao Simon Work Phone: [facility] Work Phone: 09-29-2021 14:32-0400 Body weight 78.[address] Joao Simon Work Phone: [facility] Work Phone: 09-29-2021 14:32-0400 Diastolic blood pressure 83 mm[Hg] Dr. Joao Simon Work Phone: [facility] Work Phone: 09-29-2021 14:32-0400 Heart rate 66 /min Dr. Joao Simon Work Phone: [facility] Work Phone: 09-29-2021 14:32-0400 Respiratory rate 16 /min Dr. Joao Simon Work Phone: [facility] Work Phone: 09-29-2021 14:32-0400 SaO2% (BldA) [Mass fraction] 94 % Dr. Joao Simon Work Phone: [facility] Work Phone: 09-29-2021 14:32-0400 Systolic blood pressure 155 mm[Hg] Dr. Joao Simon Work Phone: [facility] Work Phone: 09-29-2021 14:32-0400 Body height 154.[address] Joe Rosario Work Phone: [facility] Work Phone: 09-29-2021 14:32-0400 Body mass index (BMI) [Ratio] 32.5 kg/m2 Dr. Joe Rosario Work Phone: [facility] Work Phone: 09-29-2021 14:32-0400 Body weight 78.[address] Joe Rosario Work Phone: [facility] Work Phone: 09-29-2021 14:32-0400 Diastolic blood pressure 83 mm[Hg] Dr. Joe Rosario Work Phone: [facility] Work Phone: 09-29-2021 14:32-0400 Heart rate 66 /min Dr. Joe Rosario Work Phone: [facility] Work Phone: 09-29-2021 14:32-0400 Respiratory rate 16 /min Dr. Joe Rosario Work Phone: [facility] Work Phone: 09-29-2021 14:32-0400 SaO2% (BldA) [Mass fraction] 94 % Dr. Joe Rosario Work Phone: [facility] Work Phone: 09-29-2021 14:32-0400 Systolic blood pressure 155 mm[Hg] Dr. Joe Rosario Work Phone: [facility] Work Phone: 06-26-2021 05:00-0500 Diastolic blood pressure 64 mm[Hg] Dr. Joe Rosario Work Phone: [facility] Work Phone: 06-26-2021 05:00-0500 Heart rate 69 /min Dr. Joe Rosario Work Phone: [facility] Work Phone: 06-26-2021 05:00-0500 Systolic blood pressure 141 mm[Hg] Dr. Joe Rosario Work Phone: [facility] Work Phone: 06-25-2021 13:03-0500 Body temperature 98.6 [degF] Dr. Joe Rosario Work Phone: [facility] Work Phone: 06-25-2021 13:03-0500 Respiratory rate 18 /min Dr. Joe Rosario Work Phone: [facility] Work Phone: 06-25-2021 13:03-0500 SaO2% (BldA) [Mass fraction] 92 % Dr. Joe Rosario Work Phone: [facility] Work Phone: 06-23-2021 13:54-0500 Body height 154.[address] Joe Rosario Work Phone: [facility] Work Phone: 06-23-2021 13:54-0500 Body weight 77.[address] Joe Rosario Work Phone: [facility] Work Phone: 06-18-2021 14:47-0500 Body mass index (BMI) [Ratio] 33.3 kg/m2 Dr. Joe Rosario Work Phone: [facility] Work Phone: 06-18-2021 11:04-0500 SaO2% (BldA) [Mass fraction] 92 % Dr. Joe Rosario Work Phone: [facility] Work Phone: 06-18-2021 10:40-0500 Body temperature 98.1 [degF] Dr. Joe Rosario Work Phone: [facility] Work Phone: 06-18-2021 10:40-0500 Diastolic blood pressure 67 mm[Hg] Dr. Joe Rosario Work Phone: [facility] Work Phone: 06-18-2021 10:40-0500 Heart rate 58 /min Dr. Joe Rosario Work Phone: [facility] Work Phone: 06-18-2021 10:40-0500 Respiratory rate 18 /min Dr. Joe Rosario Work Phone: [facility] Work Phone: 06-18-2021 10:40-0500 Systolic blood pressure 116 mm[Hg] Dr. Joe Rosario Work Phone: [facility] Work Phone: 06-18-2021 01:05-0500 Body weight 80.[address] Joe Rosario Work Phone: [facility] Work Phone: 06-17-2021 11:59-0500 Body mass index (BMI) [Ratio] 33 kg/m2 Dr. Joe Rosario Work Phone: [facility] Work Phone: Encounters Encounter Date Encounter Type Care Provider Facility Start: 03-26-2025 ambulatory Melo THOMAS Facil ity:[facility] Start: 03-05-2025 End: 03-05-2025 ambulatory Melo THOMAS Facility:[facility] Start: 02-25-2025 ambulatory Rani Soares Facility:[facility] Start: 02-24-2025 End: 02-24-2025 ambulatory Melo THOMAS Facility:[facility] Start: 02-06-2025 End: 02-07-2025 ambulatory Melo THOMAS Facility:[facility] Start: 12-17-2024 End: 12-17-2024 Office outpatient new 45 minutes Diana Mckeon MD Work Phone: Neurology Comment on above: Parkinsonism, unspec ified Parkinsonism type (HCC) (Primary Dx); Multifactorial gait disorder Start: 12-17-2024 End: 12-17-2024 ambulatory MELO MONZON Facility:[facility] Start: 12-13-2024 ambulatory Melo THOMAS Facil ity:[facility] Start: 10-22-2024 End: 10-22-[address] Melo Monzon MD [facility] Work Phone: Start: 10-22-2024 End: 10-22-[address] Melo Monzon MD [facility] Work Phone: Start: 10-22-2024 End: 10-22-2024 ambulatory Melo THOMAS Facility:[facility] Start: 10-09-2024 End: 10-09-2024 Emergency department patient visit Dr. Melo Monzon MD -Emergency Department Work Phone: Start: 09-09-2024 End: 09-09-[address] Mleo Monzon MD [facility] Work Phone: Start: 09-09-2024 End: 09-09-[address] Melo Monzon MD -[facility] Work Phone: Start: 09-09-2024 End: 09-09-2024 ambulatory Melo THOMAS Facility:[facility] Start: 08-12-2024 End: 08-12-[address] Melo Monzon MD [facility] Work Phone: Start: 08-12-2024 End: 08-12-[address] Melo Monzon MD -[facility] Work Phone: Start: 08-12-2024 End: 08-12-2024 ambulatory Melo THOMAS Facility:[facility] Start: 07-29-2024 End: 07-29-[address] Melo Monzon MD [facility] Work Phone: Start: 07-29-2024 End: 07-29-[address] Melo Monzon MD -[facility] Work Phone: Start: 07-29-[address] Melo delaney MD -[facility] Work Phone: Start: 07-29-2024 End: 07-29-2024 ambulatory Melo THOMAS Facility:[facility] Start: 07-25-2024 End: 07-25-[address] Melo Monzon MD [facility] Work Phone: Start: 07-25-2024 End: 07-25-[address] [facility] Work Phone: Start: 07-25-[address] [facility] Work Phone: Start: 07-24-2024 End: 07-25-[address] Melo Monzon MD [facility] Work Phone: Start: 07-24-2024 End: 07-24-[address] [facility] Work Phone: Start: 07-24-[address] [facility] Work Phone: Start: 07-24-2024 End: 07-24-2024 ambulatory Melo THOMAS Facility:[facility] Start: 2024 End: [address] Melo Monzon MD [facility] Work Phone: Start: 2024 End: [address] [facility] Work Phone: Start: [address] [facility] Work Phone: Start: 2024 End: 2024 ambulatory Melo THOMAS Facility:[facility] Start: 07-18-2024 ambulatory Melo THOMAS Facil ity:[facility] Start: 07-18-[address] [facility] Work Phone: Start: 07-17-2024 End: 07-17-[address] Melo Monzon MD [facility] Work Phone: Start: 07-17-2024 End: 07-17-[address] [facility] Work Phone: Start: 07-17-[address] [facility] Work Phone: Start: 07-16-2024 End: 07-17-2024 ambulatory Melo THOMAS Facility:[facility] Start: 07-16-[address] [facility] Work Phone: Start: [facility] Start: 07-15-[address] [facility] Work Phone: Start: 07-12-2024 End: 07-12-[address] Melo Monzon MD [facility] Work Phone: Start: 07-12-2024 End: 07-12-[address] [facility] Work Phone: Start: 07-12-[address] [facility] Work Phone: Start: 07-12-2024 End: 07-12-2024 ambulatory Melo THOMAS Facility:[facility] Start: 07-09-2024 ambulatory Melo THOMAS Facil ity:[facility] Start: 07-09-[address] [facility] Work Phone: Start: 07-08-2024 End: 07-08-[address] Melo Monzon MD [facility] Work Phone: Start: 07-08-2024 End: 07-08-[address] [facility] Work Phone: Start: 07-08-[address] [facility] Work Phone: Start: 07-08-2024 End: 07-08-2024 ambulatory Melo THOMAS Facility:[facility] Start: 07-05-2024 End: 07-05-[address] Melo Monzon MD [facility] Work Phone: Start: 07-05-2024 End: 07-05-2024 Departed Referred Dr[facility] Work Phone: Start: 07-05-[address] Melo delaney MD -[facility] Work Phone: Start: 07-04-2024 End: 07-05-2024 ambulatory Melo THOMAS Facility:[facility] Start: 07-04-[address] [facility] Work Phone: Start: 07-03-2024 End: 07-03-[address] Melo Monzon MD [facility] Work Phone: Start: 07-03-2024 End: 07-03-[address] [facility] Work Phone: Start: 07-03-[address] [facility] Work Phone: Start: 07-02-2024 End: 07-03-[address] Melo Monzon MD [facility] Work Phone: Start: 07-02-2024 End: 07-02-[address] [facility] Work Phone: Start: 07-01-2024 End: 07-02-[address] Melo Monzon MD [facility] Work Phone: Start: 07-01-2024 End: 07-01-[address] [facility] Work Phone: Start: 07-01-[address] [facility]o [facility] Work Phone: Start: 07-01-2024 End: 07-01-2024 ambulatory Melo THOMAS Facility:[facility] Start: 06-17-2024 ambulatory [place] Fady THOMAS Facil ity:[facility] Start: 06-17-[address] Melo delaney MD [facility] Work Phone: Start: 06-16-2024 End: 06-16-[address] Melo Monzon MD [facility] Work Phone: Start: 06-16-2024 End: 06-16-[address] Melo Monzon MD [facility] Work Phone: Start: 06-16-[address] Melo delaney MD -[facility] Work Phone: Start: 06-16-2024 End: 06-16-2024 ambulatory Melo THOMAS Facility:[facility] Start: 04-04-2024 End: 04-04-[address] Melo Monzon MD -[facility] Work Phone: Start: 04-04-2024 End: 04-04-2024 ambulatory Melo THOMAS Facility:[facility] Start: 09-11-2023 End: 09-11-2023 ambulatory [facility] Work Phone: Start: 09-11-2023 End: 09-11-2023 Departed Referred [facility] Work Phone: Start: 08-30-2023 End: 08-30-2023 ambulatory [facility] Work Phone: Start: 08-30-2023 End: 08-30-2023 Departed Referred [facility] Work Phone: Start: 08-09-2023 End: 08-09-2023 ambulatory [facility] Work Phone: Start: 08-09-2023 End: 08-09-2023 Departed Referred [facility] Work Phone: Start: 07-26-2023 End: 07-26-2023 ambulatory [facility] Work Phone: Start: 07-26-2023 End: 07-26-2023 Departed Referred [facility] Work Phone: Start: 07-11-2023 End: 07-11-2023 ambulatory [facility] Work Phone: Start: 07-11-2023 End: 07-11-2023 Departed Referred [facility] Work Phone: Start: 06-28-2023 End: 06-28-2023 ambulatory [facility] Work Phone: Start: 06-28-2023 End: 06-28-2023 [facility] Start: 06-28-2023 [facility] Start: 06-14-2023 End: 06-14-2023 ambulatory [facility] Work Phone: Start: 06-14-2023 End: 06-14-2023 [facility] Start: 05-31-2023 End: 05-31-2023 ambulatory [facility] Work Phone: Start: 05-31-2023 End: 05-31-2023 Departed Referred [facility] Work Phone: Start: 05-23-2023 End: 05-23-2023 ambulatory [facility] Work Phone: Start: 05-23-2023 End: 05-23-2023 [facility]: Start: 05-08-2023 End: 05-08-2023 ambulatory [facility] Work Phone: Start: 05-08-2023 End: 05-08-2023 Departed Referred [facility] Work Phone: Start: 04-06-2023 End: 04-06-[address] Hortensia Unger Work Phone: [facility] Work Phone: Start: 04-06-2023 End: 04-06-[address] Hortensia Unger Work Phone: [facility] Work Phone: Start: 03-06-2023 End: 03-06-[address] Hortensia Unger Work Phone: [facility] Work Phone: Start: 02-21-2023 End: 02-21-[address] Hortensia Unger Work Phone: [facility] Work Phone: Start: 02-21-2023 End: 02-21-[address] Hortensia Unger Work Phone: [facility] Work Phone: Start: 02-14-2023 End: 02-14-[address] Hortensia Unger Work Phone: [facility] Work Phone: Start: 02-14-2023 End: 02-14-[address] Hortensia Unger Work Phone: [facility] Work Phone: Start: 02-14-[address] Hortensia menchaca Work Phone: [facility] Work Phone: Start: 02-07-2023 End: 02-07-[address] Hortensia Unger Work Phone: [facility] Work Phone: Start: 02-07-2023 End: 02-07-[address] Hortensia Unger Work Phone: [facility] Work Phone: Start: 02-02-2023 End: 02-02-2023 Emergency department patient visit Dr. Hortensia Unger Work Phone: [facility] Work Phone: Start: 01-09-2023 End: 01-09-[address] Hortensia Unger Work Phone: [facility] Work Phone: Start: 01-03-2023 End: 01-03-[address] Hortensia Unger Work Phone: [facility] Work Phone: Start: 11-30-2022 End: 11-30-2022 ambulatory [facility] Work Phone: Start: 11-30-2022 End: 11-30-2022 Departed Referred [facility] Work Phone: Start: 11-30-2022 Registered Referred [facility] Work Phone: Start: 11-16-2022 End: 11-16-2022 ambulatory [facility] Work Phone: Start: 11-16-2022 End: 11-16-2022 Departed Referred [facility] Work Phone: Start: 11-02-2022 End: 11-02-2022 ambulatory [facility] Work Phone: Start: 11-02-2022 End: 11-02-2022 Departed Referred [facility] Start: 10-19-2022 End: 10-19-2022 Departed Referred [facility] Start: 10-05-2022 End: 10-05-[address] Hortensia Unger Work Phone: [facility] Work Phone: Start: 10-05-2022 End: 10-05-[address] Hortensia Unger Work Phone: [facility] Start: 10-03-2022 End: 10-03-[address] Hortensia Unger Work Phone: [facility] Work Phone: Start: 10-03-2022 End: 10-03-[address] Hortensia Unger Work Phone: [facility] Start: 09-28-2022 End: 09-28-[address] Hortensia Unger Work Phone: [facility] Work Phone: Start: 09-28-2022 End: 09-28-[address] Hortensia Unger Work Phone: [facility] Start: 09-28-[address] Hortensia menchaca Work Phone: [facility] Start: 09-20-2022 End: 09-20-[address] Hortensia Unger Work Phone: [facility] Start: 09-16-2022 End: 09-16-[address] Hortensia Unger Work Phone: [facility] Work Phone: Start: 09-16-2022 End: 09-16-[address] Hortensia Unger Work Phone: [facility] Start: 09-16-[address] Hortensia menchaca Work Phone: [facility] Start: 08-29-2022 End: 08-29-[address] Hortensia Unger Work Phone: [facility] Work Phone: Start: 08-29-2022 End: 08-29-[address] Hortensia Unger Work Phone: [facility] Start: 08-08-2022 End: 08-08-[address] Hortensia Unger Work Phone: [facility] Start: 07-28-2022 End: 07-28-[address] Hortensia Unger Work Phone: [facility] Start: 07-11-2022 End: 07-11-[address] Hortensia Unger Work Phone: [facility] Work Phone: Start: 07-11-2022 End: 07-11-[address] Hortensia Unger Work Phone: [facility] Start: 07-01-2022 End: 07-01-[address] Hortensia Unger Work Phone: [facility] Start: 06-17-2022 Non-patient / Non-visit Dr. Isacc Unger Work Phone: [facility] Start: 06-16-2022 Non-patient / Non-visit Dr. Isacc Unger Work Phone: [facility] Start: 06-16-2022 End: 06-17-2022 Evaluation and management of inpatient [facility] Start: 06-16-2022 End: 06-17-[address] Hortensia Unger Work Phone: [facility] Work Phone: Start: 06-06-2022 End: 06-06-2022 ambulatory [facility] Work Phone: Start: 06-06-2022 End: 06-06-2022 Departed Referred [facility] Start: 05-09-2022 End: 05-09-2022 Departed Referred [facility] Start: 04-07-2022 End: 04-07-2022 ambulatory [facility] Work Phone: Start: 04-07-2022 End: 04-07-2022 Departed Referred [facility] Start: 03-26-2022 End: 03-26-2022 ambulatory [facility] Work Phone: Start: 03-26-2022 End: 03-26-2022 Departed Referred [facility] Start: 03-26-2022 Registered Referred [facility] Start: 03-16-2022 End: 03-16-2022 ambulatory [facility] Work Phone: Start: 03-16-2022 End: 03-16-2022 Departed Referred [facility] Start: 03-16-2022 Registered Referred [facility] Start: 03-15-2022 End: 03-15-2022 ambulatory [facility] Work Phone: Start: 03-15-2022 End: 03-15-2022 Departed Referred [facility] Start: 03-07-2022 End: 03-07-2022 Emergency department patient visit [facility] Start: 03-07-2022 End: 03-07-2022 ambulatory [facility] Work Phone: Start: 03-07-2022 End: 03-07-2022 Departed Referred [facility] Start: 02-03-2022 End: 02-03-[address] Joao Simon Work Phone: [facility] Work Phone: Start: 02-03-2022 End: 02-03-[address] Joao Simon Work Phone: [facility] Start: 01-06-2022 End: 01-06-[address] Joao Simon Work Phone: [facility] Work Phone: Start: 01-06-2022 End: 01-06-[address] Joao Simon Work Phone: [facility] Start: 12-20-[address] Joao morin Work Phone: [facility] Start: 12-13-[address] Joao morin Work Phone: [facility] Start: 12-10-[address] Joao morin Work Phone: [facility] Start: 12-02-[address] Joao morin Work Phone: [facility] Start: 11-25-[address] Joao morin Work Phone: [facility] Start: 11-23-[address] Joao morin Work Phone: [facility] Start: 11-18-2021 End: 11-18-[address] Joao Simon Work Phone: [facility] Start: 11-04-2021 End: 11-12-2021 Evaluation and management of inpatient Dr. Joao Simon Work Phone: [facility]Trans[facility] Start: 11-04-2021 Non-patient / Non-visit Dr. Rodrick Simon Work Phone: [facility] Start: 11-03-2021 Non-patient / Non-visit Dr. Rodrick Simon Work Phone: [facility] Start: 11-02-2021 End: 11-04-2021 Evaluation and management of inpatient Dr. Joao Simon Work Phone: [facility] 3 Start: 10-21-2021 End: 10-21-[address] [facility] Start: 10-13-2021 End: 10-13-[address] [facility] Start: 10-06-2021 End: 10-06-[address] [facility] Start: 09-29-2021 End: 09-29-[address] Joe Rosario Work Phone: [facility] Start: 09-14-2021 End: 09-14-[address] [facility] Start: 08-27-2021 End: 08-27-[address] [facility] Start: 08-11-2021 End: 08-11-[address] [facility] Start: 07-28-2021 End: 07-28-[address] Joe Rosario Work Phone: [facility] Start: 07-14-2021 End: 07-14-[address] Joe Rosario Work Phone: [facility] Start: 06-18-2021 End: 06-26-2021 Evaluation and management of inpatient [facility] Start: 06-18-2021 Non-patient / Non-visit Dr. Peraza Work Phone: [facility] Start: 06-17-2021 Non-patient / Non-visit Dr. Peraza Work Phone: [facility] Start: 06-17-2021 End: 06-18-2021 Evaluation and management of inpatient [facility]. [facility] Start: 06-10-2021 End: 06-10-[address] [facility] Start: 05-12-[address] [facility] Procedures Date Procedure Procedure Detail Performing Clinician Start: 10-09-2024 CT cervical spine without contrast Dr. Melo Monzon MD Start: 10-09-2024 CT of head without contrast Dr. Melo Monzon MD Start: 10-09-[address] Melo Monzon MD Start: 06-17-2024 Measurement of renal function Dr. Melo Monzon MD Comment on above: GFR Calc Start: 06-16-[address] Melo Monzon MD Start: 06-16-2024 Urnls dip stick/tabl et reagent auto microscopy Dr. Melo Monzon MD Start: 09-16-2022 Urine culture Start: 06-17-2022 [...] Start: 01-27-2025 Influenza vaccination Influenza Vaccine (#1) [facility] Start: 10-09-2024 [facility] Start: 05-29-2024 Advance Directive Discussion Advance Directive Discussion [facility] Start: 05-29-2024 Medicare Advantage Annual Wellness Visit Medicare Advantage Annual Wellness Visit [facility] Start: 01-29-2023 Patient referral [facility] Work Phone: Start: 06-17-2022 Patient discharge [facility] Start: 06-16-2022 Assessment of risk of venous thromboembolism [facility] Start: 06-16-2022 Cardiac monitoring [facility] Start: 06-16-2022 Catheterization of vein [facility] Start: 06-16-2022 Continuous pulse oximetry [facility] Start: 06-16-2022 Exercises [facility] Start: 06-16-2022 Insertion of catheter into peripheral vein [facility] Start: 06-16-2022 Measuring intake and output [facility] Start: 06-16-2022 Notification of physician [facility] Start: 06-16-2022 Oxygen therapy [facility] Start: 06-16-2022 Providing care according to standard [facility] Start: 06-16-2022 Provision of activity privileges [facility] Start: 06-16-2022 Referral to occupational therapist [facility] Start: 06-16-2022 Referral to service [facility] Start: 06-16-2022 Speech therapy assessment [facility] Start: 06-16-2022 [facility] Start: 06-16-2022 Following clinical pathway protocol [facility] Start: 06-16-2022 Verification routine [facility] Start: 06-16-2022 Admission procedure [facility] Start: 06-16-2022 [facility] Start: 12-24-2021 Blood chemistry [facility] Work Phone: Start: 12-17-2021 Blood chemistry [facility] Work Phone: Start: 12-10-2021 Blood chemistry [facility] Work Phone: Start: 12-03-2021 Blood chemistry [facility] Work Phone: Start: 11-29-2021 Prothrombin time [facility] Work Phone: Start: 11-26-2021 Blood chemistry [facility] Work Phone: Start: 11-25-2021 Prothrombin time [facility] Work Phone: Start: 11-22-2021 Prothrombin time [facility] Work Phone: Start: 11-19-2021 Blood chemistry [facility] Work Phone: Start: 11-18-2021 Prothrombin time [facility] Work Phone: Start: 11-15-2021 Prothrombin time [facility] Work Phone: Start: 11-14-2021 Development of care plan [facility] Work Phone: Start: 11-12-2021 Blood chemistry [facility] Work Phone: Start: 11-12-2021 Patient discharge [facility] Work Phone: Start: 11-11-2021 SARS-CoV-2 (COVID-19) Ag [Presence] in Respiratory specimen by Rapid immunoassay [facility] Work Phone: Start: 11-11-2021 [facility] Work Phone: Start: 11-11-2021 Prothrombin time [facility] Work Phone: Start: 11-10-2021 Referral to service [facility] Work Phone: Start: 11-08-2021 [facility] Work Phone: Start: 11-05-2021 Speech therapy management [facility] Work Phone: Start: 11-05-2021 Developing a treatment plan [facility] Work Phone: Start: 11-05-2021 Development of care plan [facility] Work Phone: Start: 11-05-2021 Speech therapy assessment [facility] Work Phone: Start: 11-04-2021 Following clinical pathway protocol [facility] Work Phone: Start: 11-04-2021 Admission procedure [facility] Work Phone: Start: 11-04-2021 Measuring intake and output [facility] Work Phone: Start: 11-04-2021 Patient referral to dietitian [facility] Work Phone: Start: 11-04-2021 Referral to occupational therapist [facility] Work Phone: Start: 11-04-2021 Referral to service [facility] Work Phone: Start: 11-04-2021 Verification routine [facility] Work Phone: Start: 11-04-2021 Vital signs measurements [facility] Work Phone: Start: 11-04-2021 [facility] Work Phone: Start: 11-04-2021 Patient discharge [facility] Work Phone: Start: 11-03-2021 Inhalation therapy procedure [facility] Work Phone: Start: 11-02-2021 Assessment of risk of venous thromboembolism [facility] Work Phone: Start: 11-02-2021 Insertion of catheter into peripheral vein [facility] Work Phone: Start: 11-02-2021 Providing care according to standard [facility] Work Phone: Start: 11-02-2021 Provision of activity privileges [facility] Work Phone: Start: 11-02-2021 Referral to occupational therapist [facility] Work Phone: Start: 11-02-2021 Referral to service [facility] Work Phone: Start: 11-02-2021 [facility] Work Phone: Start: 11-02-2021 Following clinical pathway protocol [facility] Work Phone: Start: 11-02-2021 Admission procedure [facility] Work Phone: Start: 03-07-2018 Diabetic foot examination Diabetic Foot Exam [facility] Start: 03-06-2018 Hepatitis B screening Urine Albumin:Creatinine Ratio [facility] Start: 03-06-2018 Hepatitis B surface antibody level LDL Cholesterol [facility] Start: 09-04-2017 Hemoglobin A1c measurement HbA1C [facility] Start: 04-29-2017 Glaucoma screening Dilated Retinal Exam [facility] Start: 02-06-2016 Urine microalbumin profile DTaP,Tdap,Td Vaccine (1 - Tdap) [facility] Start: 2012 RSV Vaccine (1 - 1-dose 75+ series) RSV Vaccine (1 - 1-dose 75+ series) [facility] Start: 1987 Shingrix Vaccine (1 of 2) Shingrix Vaccine (1 of 2) [facility] Anion gap measurement [facility] Work Phone: BUN/Creatinine ratio [facility] Work Phone: Calcium [Mass/volume ] in Serum or Plasma [facility] Work Phone: Carbon dioxide, tota l [Moles/volume] in Serum or Plasma [facility] Work Phone: Chloride [Moles/volu me] in Serum or Plasma [facility] Work Phone: Creatinine [Moles/vo lume] in Serum or Plasma [facility] Work Phone: Folate [Mass/volume] in Serum or Plasma [facility] Glucose [Mass/volume ] in Serum or Plasma [facility] Work Phone: Hematocrit [Volume Fraction] of Blood [facility] Work Phone: Hemoglobin [Mass/vol ume] in Blood [facility] Work Phone: INR in Blood by Coag ulation assay [facility] Work Phone: Ulmer and lambda lig ht chains [facility] Leukocytes [#/volume ] in Blood [facility] Work Phone: Mean corpuscular hem oglobin concentration determination [facility] Work Phone: Mean corpuscular hem oglobin determination [facility] Work Phone: Measurement of renal function [facility] Work Phone: Neutrophil count [facility] Work Phone: Neutrophil percent differential count [facility] Work Phone: Patient Education [facility] Work Phone: Patient referral [facility] Work Phone: Platelets [#/volume] in Blood [facility] Work Phone: Potassium [Moles/vol ume] in Serum or Plasma [facility] Work Phone: Prothrombin time [facility] Work Phone: Red blood cell count [facility] Work Phone: Red cell distributio n width determination [facility] Work Phone: Sodium [Moles/volume ] in Serum or Plasma [facility] Work Phone: Thiamine measurement [facility] Thyroid stimulating hormone measurement [facility] Urea nitrogen [Mass/ volume] in Serum or Plasma [facility] Work Phone: [facility] Work Phone: Vitamin B12 measurement [facility] Immunizations Immunization Date Immunization Notes Care Provider Fran perez 11-09-2021 Covid (Pfizer) Dr. Joao lakhani Work Phone: [facility] 04-16-[address] Joe Rosario Work Phone: [facility] 03-17-2021 Covid (Pfizer) Dr. Joe Riggs nnedy Work Phone: [facility] 07-16-2020 Covid (Pfizer) Dr. Joe Riggs nnedy Work Phone: [facility] 06-24-2020 Covid (Pfizer) Dr. Joe Riggs nnedy Work Phone: [facility] 02-15-2017 influenza, high dose seasonal, preservative-free Diana Mckeon MD Work Phone: [facility] 02-15-2017 influenza virus vacc ine, unspecified formulation Diana Mckeon MD Work Phone: [facility] 05-13-2016 influenza, high dose seasonal, preservative-free Diana Mckeon MD Work Phone: [facility] 03-08-[address] Joe Rosario Work Phone: [facility] 02-05-2016 tetanus and diphther ia toxoids, adsorbed, preservative free, for adult use (5 Lf of tetanus toxoid and 2 Lf of diphtheria toxoid) Diana Mckeon MD Work Phone: [facility] 03-31-2015 influenza, high dose seasonal, preservative-free Diana Mckeon MD Work Phone: [facility] [facility] 06-30-2014 pneumococcal conjuga te vaccine, 13 valent Diana Mckeon MD Work Phone: [facility] 03-26-2014 influenza, seasonal, injectable Diana Mckeon MD Work Phone: [facility] 03-30-2013 influenza virus vacc ine, unspecified formulation Diana Mckeon MD Work Phone: [facility] 05-07-2012 influenza virus vacc ine, unspecified formulation Diana Mckeon MD Work Phone: [facility] 04-18-2011 influenza virus vacc ine, unspecified formulation Diana Mckeon MD Work Phone: [facility] 02-17-2009 influenza virus vacc ine, unspecified formulation Diana Mckeon MD Work Phone: [facility] Work Phone: 04-01-2008 influenza virus vacc ine, unspecified formulation Diana Mckeon MD Work Phone: [facility] 03-28-2007 influenza virus vacc ine, unspecified formulation Diana Mckeon MD Work Phone: [facility] Work Phone: 05-15-2006 influenza virus vacc ine, unspecified formulation Diana Mckeon MD Work Phone: [facility] 02-26-2006 pneumococcal polysaccharide vaccine, 23 valent Diana Mckeon MD Work Phone: [facility] 01-13-2006 tetanus and diphther ia toxoids, adsorbed, preservative free, for adult use (2 Lf of tetanus toxoid and 2 Lf of diphtheria toxoid) Diana Mckeon MD Work Phone: [facility] 03-22-2005 influenza virus vacc ine, unspecified formulation Diana Mckeon MD Work Phone: [facility] Payers Date Payer Category Payer Self-pay [id number] 2018 Medicare (Managed Care) MMO [employer] PPO [id number] 2015 Medicare [id number] Unknown [id number] 2.16.840.1.580199.3.579 .2.462 Unknown [id number] 2.16.840.1.531928.3.579 .2.462 Unknown [id number] 2.16.840.1.257512.3.579 .2.462 Unknown [id number] 2.16.840.1.212418.3.579 .2.462 Unknown [id number] 2.16.840.1.490299.3.579 .2.462 Unknown [id number] 2.16.840.1.953490.3.579 .2.462 Unknown [id number] 2.16.840.1.876890.3.579 .2.462 Unknown [id number] 2.16.840.1.925211.3.579 .2.462 Unknown [id number] 2.16.840.1.867051.3.579 .2.462 Unknown [id number] 2.16.840.1.811196.3.579 .2.462 Unknown [id number] 2.16.840.1.756832.3.579 .2.462 Unknown [id number] 2.16.840.1.773898.3.579 .2.462 Unknown [id number] 2.16.840.1.639513.3.579 .2.462 Unknown [id number] 2.16.840.1.525706.3.579 .2.462 Unknown [id number] 2.16.840.1.682760.3.579 .2.462 Unknown [id number] 2.16.840.1.246142.3.579 .2.462 Unknown [id number] 2.16.840.1.755403.3.579 .2.462 Unknown [id number] 2.16.840.1.415628.3.579 .2.462 Unknown [id number] 2.16.840.1.507539.3.579 .2.462 Unknown [id number] 2.16.840.1.174435.3.579 .2.462 Unknown [id number] 2.16.840.1.097234.3.579 .2.462 Unknown [id number] 2.16.840.1.368477.3.579 .2.462 Unknown [id number] 2.16.840.1.948602.3.579 .2.462 Unknown [id number] 2.16.840.1.587570.3.579 .2.462 Unknown [id number] 2.16.840.1.349184.3.579 .2.462 Unknown [id number] 2.16.840.1.456526.3.579 .2.462 Unknown [id number] 2.16.840.1.698498.3.579 .2.462 Unknown [id number] 2.16.840.1.296241.3.579 .2.462 Unknown [id number] 2.16.840.1.110574.3.579 .2.462 Social History Date Type Detail Facility Start: 06-18-2021 End: 02-02-2023 Tobacco smoking status VAIS Unknown if ever smoked [facility] Start: 04-11-[address] [facility] Start: 09-06-[address] [facility] Start: 1935 Sex Assigned At Female [facility] Start: 03-24-2024 End: 12-17-2024 Tobacco smoking status VAIS Ex-smoker (finding) [facility] Start: 08-02-2024 End: 09-10-2024 Sex Female (finding) [facility] Start: 05-29-1962 End: 05-29-1987 History of tobacco use Current smoker [facility] Start: 05-29-1962 End: 05-29-1987 History of tobacco use Cigarette Smoker [facility] Start: 12-17-2024 Cigarettes smoked current (pack per day) - Reported 1 [facility] Start: 12-17-2024 Tobacco use and exposure Smokeless tobacco non-user [facility] Start: 12-17-2024 Alcoholic beverage intake Current drinker of alcohol (finding) [facility] Start: 12-17-2024 Tobacco use panel [facility] Adult Depression Screening Assessment 1 [facility] Start: 03-29-2013 Alcohol Comment 1 glass of win e per month or less [facility] Start: 1935 Sex assigned at Not on file [facility] Medical Equipment Procedure Code Equipment Code Equipment Origin al Text Equipment Identifier Dates [place] Ptfe 1.2 Cm X 10 Cm - [id number] Start: 04-02-2013 Comment on above: Description: [place] pl edgets Test blood sugar(s) one times daily. Dx: Type 2 DM - Controlled E11.40 Insulin: No [id number] Start: 02-16-2016 End: 12-20-2024 Test blood sugar(s) one times daily. Dx: Type 2 DM - Controlled E11.40 Insulin: No [id number] Start: 02-16-2016 End: 12-20-2024 Goals Date Patient Goal Desired Activity /State Functional Status Date Assessment Result Facility 06-17-2022 Functional status Bedrest [facility] Work Phone: 11-12-2021 Functional status Ambulates;Up ad romero [facility] Work Phone: 11-10-2021 Functional status Ambulates;Up ad romero [facility] Work Phone: 11-04-2021 Functional status Chair [facility] Work Phone: 06-25-2021 Functional status Activity Abili ty Independent [facility] Work Phone: 06-22-2021 Functional status Ambulates [facility] Work Phone: 06-18-2021 Functional status Patient Activity Chair [facility] Work Phone: 06-18-2021 Functional status Activity Abili ty With Assist of 1 [facility] Work Phone: 10-13-2015 Are you deaf, or do you have serious difficulty hearing No 10/13/2015 9:43 AM Henrietta Ortega RN No [facility] 10-13-2015 Are you blind, or do you have serious difficulty seeing, even when wearing glasses No 10/13/2015 9:43 AM Henrietta Ortega, SAI No [facility] 10-13-2015 Do you have serious difficulty walking or climbing stairs No 10/13/2015 9:43 AM Henrietta Ortega, SAI No [facility] 10-13-2015 Do you have difficul ty dressing or bathing No 10/13/2015 9:43 AM Henrietta Ortega RN No [facility] 10-13-2015 Because of a physica l, mental, or emotional condition, do you have difficulty doing errands alone such as visiting a physician's office or shopping No 10/13/2015 9:43 AM Henrietta Ortega RN No [facility] Mental Status Date Assessment Result Facility 06-17-2022 Cognitive function Voice/Name [facility] Work Phone: 06-16-2022 Cognitive function Voice/Name [facility] Work Phone: 11-12-2021 Cognitive function Voice/Name [facility] Work Phone: 11-10-2021 Cognitive function Comprehension Ability Demonstrates ability to follow instructions/comprehend [facility] Work Phone: 11-09-2021 Cognitive function Voice/Name [facility] Work Phone: 11-05-2021 Cognitive function Comprehension Ability Demonstrates ability to follow instructions/comprehend [facility] Work Phone: 11-04-2021 Cognitive function Appropriate;Cooperativ e [facility] Work Phone: 06-25-2021 Cognitive function Voice/Name [facility] Work Phone: 06-18-2021 Cognitive function Voice/Name [facility] Work Phone: 10-13-2015 Because of a physica l, mental, or emotional condition, do you have serious difficulty concentrating, remembering, or making decisions No 10/13/2015 9:43 AM EDT Henrietta Newberry RN No [facility] Clinical Notes 04-02-2013 to 12-20-2024 Diana Mckeon MD - 12/20/2024 5:46 PM EDT Note Date & Type Note Facility 12-20-2024 Note HNO ID: [id number] Author: DIANA MCKEON MD Service: ? Author Type: Physician Type: Progress Notes Filed: 12/20/2024 17:59 Note Text: [facility] - NEW PATIENT EVALUATION Recording using Zayo software for draft documentation of the visit was discussed with the patient/authorized service center representative; all questions welcomed and answered. Patient/authorized service center representative agreed to proceed Referring Provider: Melo Monzon [address] [place] [address] Dear Melo Monzon: Thank you for referring Ms. Richardson [...] three years ago by a neurologist in [place]. At the time of diagnosis, she was [...] physical therapy and an exercise class called [employer] at her [facility], which she enjoys. [...] in the corn (more content not included)... [facility] 12-20-[facility] History of Present illness Narrative [facility] - NEW PATIENT EVALUATION Recording using Zayo software for draft documentation of the visit was discussed with the patient/authorized service center representative; all questions welcomed and answered. Patient/authorized service center representative agreed to proceed Referring Provider: Melo Monzon [address] [place] [address] Dear Melo Monzon: Thank you for referring Ms. Richardson [...] three years ago by a neurologist in [place]. At the time of diagnosis, she was [...] physical therapy and an exercise class called [employer] at her [facility], which she enjoys. 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), Coronary atherosclerosis of unspecified type of vessel, [place] or graft (01/24/2005), Depressive disorder, not elsewhere classified (10/15/2008), Diverticulosis of colon (without mention of hemorrhage), DVT (deep venous thrombosis) ([facility]) (03/04/2009), Dysmetabolic syndrome X (07/30/2008), 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 has a past surgical history that [...] Vibration sense reduced at ankles. Coordination Right: Rqszse-oz-zkeg normal. Rapid alternating movement normal.Left: Iaghts-ew-xzsq normal. Rapid alternating movement normal. Movement Disorders [...] diagnosed 3 years ago by neurology in [place]; currently on carbidopa-levodopa (Sinemet) with unclear benefit. [...] vibratory sensation in ankles, mild tremor on hhdklm-ge-mzgz testing, micrographia, and slowed speech. More convincing [...] mg twice daily Level of service : 00297 (45-59 min). Time spent 56 min on the day of service, which included preparing to see the patient, zvik-oe-ghmk patient care, completing clinical documentation, obtaining and/or [...] with any questions. Sincerely, Diana Mckeon MD documented in this encounter [facility] 10-09-2024 Radiology Diagnostic study note [facility] Services [address] [place] [address] Spine Cervical without Contras MR#: [id number] Acct: [id number] Name: COLETTE RICHARDSON Rep #: [id number] 4 : 1935 F 89 From: Kristen Schmidt MD PCP: Dr. Melo Monzon MD Status: REG ER Study:Spine Cervical without Contras Date of Exam: 10/09/24 Exam# [id number] Ordering Dr: Se Schmidt DO EXAM: CT [...] cervical spine as described. Reading Location: [facility] CC: Dr. Melo Monzon MD; Dr. eS Schmidt DO ~ Pc Technician: Signed [facility] 10-09-2024 Radiology Diagnostic study note [facility] Imaging Services [address] [place] [address] Brain/Head without Contrast MR#: [id number] Acct: [id number] Name: COLETTE RICHARDSON Rep #: [id number] 2 : 1935 F 89 From: Kristen Schmidt MD PCP: Dr. Melo Monzon MD Status: REG ER Study:Brain/Head without Contrast Date of Exa m: 10/09/24 Exam# [id number] Ordering Dr: Se Schmidt DO EXAM: CT [...] with MRI is recommended. Reading Location: [facility] CC: Dr. Melo Monzon MD; Dr. Se Schmidt DO ~ Pc Technician: Signed [facility] 10-09-2024 Hospital Discharge instructions Additional Instructions Your INR is 2.[address] head and neck negative for acute process. Use Tylenol as needed. Follow-up with your doctor. [facility] Work Phone: 02-02-2023 Discharge summary Note Date/Time February 02, 2023 5:54pm [facility] Medical Records Department [address] [place] [address] Emergency Department Summary 02/02/23 MR#: [id number] Acct: [id number] Name: COLETTE RICHARDSON Rep #:[id number] : 1935 87 From: Matt Coy [...] concerned that that might be causing this. [facility] Medical History Atherosclerotic heart disease of [place] coronary artery without angina pectoris Atrial fibrillation with RVR (10/01/16) Bilateral breast cancer Depression Essential hypertension Frequent falls History of non-ST elevation myocardial infarction (NSTEMI) (10/01/16) History of Parkinson's disease History of pulmonary embolus (PE) Hypercoagulable state half-way current use of anticoagulant Memory loss Nonrheumatic [...] release 24 hr 150 mg PO BREAKFAST [id number]/07/22 [History Last Taken 06/16/22 09:15] alprazolam 0.25 [...] AdvReac Itching Verified 02/02/23 15:12 [From Vicodin] Pzgwmus-QZS-AeT Reductase AdvReac Other Verified 02/02/23 15:12 Inhibitor [Cheqzyb-Lnc-Dyr Reductase Inhibitor] Surgical History H/O coronary artery [...] % (Auto) 65.1 Lymph % (Auto) 24.4 [place] % (Auto) 7.9 Eos % (Auto) 1.7 [...] Clarity Clear Urine pH 6.5 Ur Specific [place] 1.015 Urine Protein Negative Urine Glucose (UA) [...] your Primary Care Provider. Call [facility] ([phone]) or report to the closest Emergency Room. Call 911 if necessary. 02/02/232013 <Electronically signed by Matt Coy MD> Cosigner Signature (if applicable): CC: Dr. Joao Simon MD ~ Signed [facility] Work Phone: 1(961) 727-978901-20-[address] Lopez [facility] June 17, 2022 1:53pm Note Date/Time June 17, 2022 1 2:29pm [facility] Medical Records Department [address] [place] [address] Instructions for Home/Discharge Instructions 06/17/22 1229 MR#: [id number] Acct: [id number] Name: COLETTE RICHARDSON Rep #:[id number] : 1935 86 From: Jesenia Lopez [...] Primary Care Provider: Hortensia Unger Consulting Providers: Gnozalo Stephens Discharge Orders/Prescriptions Prescriptions: New aspirin 81 [...] can be placed): NonSkilled NH/[facility] 06/17/22 7453<Electronically signed by Jesenia Lopez MD>Jesenia Lopez MD CC: Dr. Hortensia Unger MD; Dr. Gonzalo Stephens DO ~ Signed [facility] Work Phone: 1(478) 483-993101-19-2023 History and physical note Author Dr. Stephens [facility] June 16, 2022 8:43pm Note Date/Time June 16, 2022 8 :34pm [facility] Medical Records Department [address] [place] [address] H&P Exam - Hospitalist 06/16/222028 MR#: [id number] Acct: [id number] Name: COLETTE RICHARDSON Rep #:[id number] : 1935 86 From: Gonzalo Stephens DO PCP: Dr. Hortensia Unger MD Status:[facility] Location: [facility] [place] [address] HPI - General General Date of Admission: 06/16/22 Date of Service: 06/16/22 Chief Complaint: Right upper extremity weakness, slurred speech HPI Narrative COLETTE RICHARDSON, is a 86 F who presents to the emergency room at [facility] from assisted living facility with complaints [...] her speech is slurred at this time. [facility] Medical History Atherosclerotic heart disease of [place] coronary artery without angina pectoris Atrial fibrillation with RVR (10/01/16) Bilateral breast cancer Depression Essential hypertension Frequent falls History of non-ST elevation myocardial infarction (NSTEMI) (10/01/16) History of pulmonary embolus (PE) Hypercoagulable state half-way current use of anticoagulant Memory loss Nonrheumatic [...] release 24 hr 150 mg PO BREAKFAST [id number]/07/22 [History Last Taken 06/16/22 09:15] alprazolam 0.25 [...] AdvReac Itching Verified 06/16/22 12:15 [From Vicodin] Cmyjsde-FHD-VcR Reductase AdvReac Other Verified 06/16/22 16:35 Inhibitor [Iudfslt-Cza-Qlh Reductase Inhibitor] Surgical History H/O coronary artery [...] % (Auto) 56.3, Lymph % (Auto) 30.6, Doddridge % (Auto) 8.2, Eos % (Auto) 3.9, [...] GFR (MDRD) Non-Af 83, BUN/Creatinine Ratio 16.8, Tibcgjf17, Calcium 8.9, Troponin I High Sens 9 [...] team: 55-minute Charges/Coding Visit Charges Inpatient E&M: 75724 Init Hosp L2 06/16/222042 <Electronically signed by Gonzalo Stephens DO> Cosigner Signature (if applicable): CC: Dr. Hortensia Unger MD; Dr. Gonzalo Stephens DO~ Signed [facility] Work Phone: 1(254) 981-137001-19-[address] Davis [facility] June 16, 2022 4:46pm Note Date/Time June 16, 2022 1 2:52pm [facility] Medical Records Department [address] [place] [address] Emergency Department Summary 06/16/22 MR#: [id number] Acct: [id number] Name: COLETTE RICHARDSON Rep #:[id number] 4 : 1935 86 From: Jesse Davis [...] [facility] Medical History Atherosclerotic heart disease of [place] coronary artery without angina pectoris Atrial fibrillation with RVR (10/01/16) Bilateral breast cancer Depression Essential hypertension Frequent falls History of non-ST elevation myocardial infarction (NSTEMI) (10/01/16) History of pulmonary embolus (PE) Hypercoagulable state half-way current use of anticoagulant Memory loss Nonrheumatic [...] release 24 hr 150 mg PO BREAKFAST [id number]/07/22 [History Last Taken 06/16/22 09:15] alprazolam 0.25 [...] AdvReac Itching Verified 06/16/22 12:15 [From Vicodin] Axbecrb-RZN-AoW Reductase AdvReac Other Verified 06/16/22 12:15 Inhibitor [Umjobur-Int-Cmz Reductase Inhibitor] Surgical History H/O coronary artery [...] line established on arrival. 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 Stroke teamwas activated after my evaluation of [...] % (Auto) 56.3 Lymph % (Auto) 30.6 [place] % (Auto) 8.2 Eos % (Auto) 3.9 [...] Parkinson's disease Disposition Disposition: Acute Care Hospital [facility] What to do if you have Problems For any increased pain, shortness of breath, bleeding, nausea or vomiting, chestpain, or any unexpected problems, contact your Primary Care Provider. Call [facility] ([phone]) or report to the closest Emergency Room. Call 911 if necessary. 06/16/22 1646 <Electronically signed by Jesse Davis DO> Cosigner Signature (if applicable): CC: Dr. 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, 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 Heart failure with preserved ejection fraction chronic Acute hyponatremia acute Acute metabolic encephalopathy acute Hypokalemia [facility] Work Phone: 1(783) 444-579611-05-2013 Evaluation note* Diagnosis Onset Date Resolution Status Dyspnea on minimal exertion acute Essential hypertension acute Paroxysmal atrial fibrillation acute 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, 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 Heart failure with preserved ejection fraction chronic Acute hyponatremia acute Acute metabolic encephalopathy acute Frequent falls acute Hypokalemia acute Memory loss acute Poor balance [facility] Work Phone: 1(177) 232-336111-05-2013 Evaluation note* Diagnosis Onset Date Resolution Status [...] Restrictive lung disease acu te Hypertension chronic [facility] Work Phone: 1(324) 484-882311-05-2013 Evaluation note* Diagnosis Onset Date Resolution Status [...] resolved Acute metabolic encephalopathy resolved Hypokalemia resolved [facility] Work Phone: evaluation note* Diagnosis Onset Date Resolution Status Allergic rhinitis acute Atrial fibrillation acute Coronary artery disease acut e Debility acute Depression acute Edema acute Hyperlipidemia acute Insomnia acute Left hip pain acute Left rotator cuff tear arthropathy acute [facility] Work Phone: Evaluation note* Diagnosis Onset Date Resolution Status Hyperlipidemia acute Allergic rhinitis resolved Debility resolved Depression resolved Insomnia resolved Left hip pain resolved Left rotator cuff tear arthropathy resolved Dyspnea on minimal exertion acute Essential hypertension acute Paroxysmal atrial fibrillation acute 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, 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 Heart failure with preserved ejection fraction chronic [facility] Work Phone: Evaluation note* Diagnosis Onset Date Resolution Status Acute hyponatremia resolved Acute metabolic encephalopathy resolved Hypokalemia resolved Atrial fibrillation acute Coronary artery disease acut e Debility acute Depression acute Edema acute Hyperlipidemia acute Insomnia acute Restrictive lung disease acu te Hypertension chronic Acute hyponatremia resolved Acute metabolic encephalopathy resolved Hypokalemia resolved [facility] Work Phone: evaluation noteNo assessment information available [facility] Work Phone: evaluation note* Diagnosis Onset Date Resolution Status Acute CVA (cerebrovascular accident) acute History of atrial fibrillation acute History of hypertension acut e History of Parkinson's disease acute [facility] Work Phone: Evaluation note* Diagnosis Onset Date Resolution Status Acute CVA (cerebrovascular accident) acute History of atrial fibrillation acute History of hypertension acut e History of Parkinson's disease acute Right arm weakness acute [facility] Work Phone: Evaluation note* Diagnosis Onset Date Resolution Status History of atrial fibrillation acute History of hypertension acut e History of Parkinson's disease acute Acute CVA (cerebrovascular accident) resolved Right arm weakness resolved [facility] Work Phone: Evaluation note* Diagnosis Onset Date Resolution Status Abnormality of gait and mobility acute History of stroke acute Parkinsonism acute Polyneuropathy acute Dementia chronic [facility] Work Phone: Evaluation note* Diagnosis Parkinsonism, unspecified Parkinsonism type (HCC)- Primary Multifactorial gait disorder Abnormality of gait documented in this encounter [facility]: Reason for referral (narrative)No reason for referral information availableWLancaster [facility] Hospital Work Phone: Summary Purpose Family History [...] Date/ Time Name of Medical Power of Mortgage Funder pool crouch son June 17, 2021 1:59pm Living Will Yes June 21 12:54pm Power of Mortgage Funder Yes June 21, 2021 12:54pm Advance Directive Response Recorded Date/ Time Living Will Yes June 21 12:54pm Power of Mortgage Funder Yes June 21, 2021 12:54pm Advance Directive Response Recorded Date/ Time Living Will Yes November 02, 2021 3 :59pm Power of Mortgage Funder Yes November 02, 2021 3:59pm Advance Directive Response Recorded Date/ Time Name of Medical Power of Mortgage Funder DAUGHTER, KRISTIN GRIER November 02, 2021 3:59pm Name of Medical Power of Mortgage Funder Pool castillo November 05, 2021 2:10pm Living Will Yes November 05, 2021 2:10pm Power of Mortgage Funder Yes November 05 2:10pm Advance Directive Response Recorded Date/ Time Living Will No March 07 3:07pm Power of Mortgage Funder No March 07, 2022 3:07pm Advance Directive Response Recorded Date/ Time Living Will No March 07 2:07pm Power of Mortgage Funder No March 07, 2022 2:07pm Advance Directive Response Recorded Date/ Time Name of Medical Power of Mortgage Funder Pool castillo June 16, 2022 6:12pm Living Will Yes June 16 6:12pm Power of Mortgage Funder Yes June 16, 2022 6:12pm Advance Directive Response Recorded Date/ Time Name of Medical Power of Mortgage Funder Pool castillo June 16, 2022 7:12pm Living Will Yes June 16 7:12pm Power of Mortgage Funder Yes June 16, 2022 7:12pm Advance Directive Response Recorded Date/ Time Living Will Yes June 16 7:12pm Power of Mortgage Funder Yes June 16, 2022 7:12pm Advance Directive Response Recorded Date/ Time Living Will Yes June 16 6:12pm Power of Mortgage Funder Yes June 16, 2022 6:12pm Advance Directive Response Recorded Date/ Time Do you have a Healthcare Power of Mortgage Funder? No October 09, 2024 7:14pm Chief Complaint [...] ENCEPHALOPATHY, HYPONATREMIA HYPONATREMIA, METABOLIC ENCEPHALOPATHY, FREQ FALLS PRISON LABWORK Reason for Visit Dyspnea on minimal [...] ENCEPHALOPATHY, HYPONATREMIA HYPONATREMIA, METABOLIC ENCEPHALOPATHY, FREQ FALLS PRISON LABWORK PRISON LABWORK PRISON LAB WORK PRISON LAB WORK PRISON LABWORK PRISON LABWORK PRISON LABWORK PRISON LAB WORK Reason for Visit Dyspnea on [...] ENCEPHALOPATHY, HYPONATREMIA HYPONATREMIA, METABOLIC ENCEPHALOPATHY, FREQ FALLS PRISON LABWORK PRISON LABWORK PRISON LAB WORK PRISON LAB WORK PRISON LABWORK PRISON LABWORK PRISON LABWORK PRISON LAB WORK PRISON LAB WORK Reason for Visit Acute hyponatremia Acute metabolic encephalopathy Hypokalemia Atrial fibrillation Coronary artery disease Debility Depression Edema Hyperlipidemia Insomnia Restrictive lung disease Hypertension Acute hyponatremia Acute metabolic encephalopathy Hypokalemia Chief Complaint PRISON LABWORK PRISON LABWORK PRISON LAB WORK PRISON LAB WORK PRISON LABWORK PRISON LABWORK PRISON LABWORK PRISON LAB WORK PRISON LAB WORK PRISON LAB WORK SOB Chief Complaint PRISON LABWORK PRISON LABWORK PRISON LAB WORK PRISON LAB WORK PRISON LABWORK PRISON LABWORK PRISON LABWORK PRISON LAB WORK PRISON LAB WORK PRISON LAB WORK SOB PRISON LABWORK Chief Complaint PRISON LAB WOR K PRISON LAB WORK PRISON LABWORK PRISON LABWORK PRISON LABWORK PRISON LAB WORK PRISON LAB WORK PRISON LAB WORK SOB PRISON LABWORK PRISON LAB WORK Chief Complaint PRISON LABWORK PRISON LABWORK PRISON LABWORK PRISON LAB WORK PRISON LAB WORK PRISON LAB WORK SOB PRISON LABWORK PRISON LAB WORK PRISON LABWORK Chief Complaint PRISON LABWORK PRISON LAB WORK PRISON LAB WORK PRISON LAB WORK SOB PRISON LABWORK PRISON LAB WORK PRISON LAB WORK PRISON LABWORK Chief Complaint PRISON LAB WOR K SOB PRISON LABWORK PRISON LAB WORK PRISON LAB WORK PRISON LABWORK PRISON LAB WORK PRISON LABWORK Chief Complaint PRISON LAB WOR K SOB PRISON LABWORK PRISON LAB WORK PRISON LAB WORK PRISON LABWORK PRISON LAB WORK PRISON LABWORK RIGHT UPPER EXTREMITY WEAKNESS, SLURRED SPEECH Reason for Visit Acute CVA (cerebrova scular accident) History of atrial fibrillation History of hypertension History of Parkinson's disease Chief Complaint PRISON LAB WOR K SOB PRISON LABWORK PRISON LAB WORK PRISON LAB WORK PRISON LABWORK PRISON LAB WORK PRISON LABWORK RIGHT UPPER EXTREMITY WEAKNESS, SLURRED SPEECH RIGHT UPPER EXTREMITY WEAKNESS, SLURRED SPEECH Reason for Visit Acute CVA (cerebrova scular accident) History of atrial fibrillation History of hypertension History of Parkinson's disease Right arm weakness Chief Complaint PRISON LABWORK PRISON LAB WORK PRISON LABWORK RIGHT UPPER EXTREMITY WEAKNESS, SLURRED SPEECH RIGHT UPPER EXTREMITY WEAKNESS, SLURRED SPEECH RIGHT UPPER EXTREMITY WEAKNESS, SLURRED SPEECH PRISON LABWORK LABWORK PRISON LABWORK Reason for Visit History of atrial fi brillation History of hypertension History of Parkinson's disease Acute CVA (cerebrovascular accident) Right arm weakness Chief Complaint PRISON LABWORK RIGHT UPPER EXTREMITY WEAKNESS, SLURRED SPEECH RIGHT UPPER EXTREMITY WEAKNESS, SLURRED SPEECH RIGHT UPPER EXTREMITY WEAKNESS, SLURRED SPEECH PRISON LABWORK LABWORK PRISON LABWORK LABWORK LABWORK Reason for Visit History of atrial fi brillation History of hypertension History of Parkinson's disease Acute CVA (cerebrovascular accident) Right arm weakness Chief Complaint PRISON LABWORK RIGHT UPPER EXTREMITY WEAKNESS, SLURRED SPEECH RIGHT UPPER EXTREMITY WEAKNESS, SLURRED SPEECH RIGHT UPPER EXTREMITY WEAKNESS, SLURRED SPEECH PRISON LABWORK LABWORK PRISON LABWORK LABWORK LABWORK PRISON LAB WORK LABWORK Reason for Visit History of atrial fi brillation History of hypertension History of Parkinson's disease Acute CVA (cerebrovascular accident) Right arm weakness Chief Complaint PRISON LABWORK RIGHT UPPER EXTREMITY WEAKNESS, SLURRED SPEECH RIGHT UPPER EXTREMITY WEAKNESS, SLURRED SPEECH RIGHT UPPER EXTREMITY WEAKNESS, SLURRED SPEECH PRISON LABWORK LABWORK PRISON LABWORK LABWORK LABWORK PRISON LABWORK PRISON LAB WORK LABWORK Reason for Visit History of atrial fi brillation History of hypertension History of Parkinson's disease Acute CVA (cerebrovascular accident) Right arm weakness Chief Complaint RIGHT UPPER EXTREMIT Y WEAKNESS, SLURRED SPEECH RIGHT UPPER EXTREMITY WEAKNESS, SLURRED SPEECH RIGHT UPPER EXTREMITY WEAKNESS, SLURRED SPEECH PRISON LABWORK LABWORK PRISON LABWORK LABWORK LABWORK PRISON LABWORK PRISON LAB WORK LABWORK LABWORK Reason for Visit History of atrial fi brillation History of hypertension History of Parkinson's disease Acute CVA (cerebrovascular accident) Right arm weakness Chief Complaint RIGHT UPPER EXTREMIT Y WEAKNESS, SLURRED SPEECH RIGHT UPPER EXTREMITY WEAKNESS, SLURRED SPEECH RIGHT UPPER EXTREMITY WEAKNESS, SLURRED SPEECH PRISON LABWORK LABWORK PRISON LABWORK LABWORK LABWORK PRISON LABWORK PRISON LAB WORK PRISON LAB WORK LABWORK LABWORK Reason for Visit History of atrial fi brillation History of hypertension History of Parkinson's disease Acute CVA (cerebrovascular accident) Right arm weakness Chief Complaint PRISON LABWORK LABWORK LABWORK PRISON LABWORK PRISON LAB WORK PRISON LAB WORK LABWORK LABWORK LABWORK PRISON LAB WORK Chief Complaint PRISON LABWORK PRISON LAB WORK PRISON LAB WORK LABWORK LABWORK LABWORK PRISON LAB WORK PRISON LAB WORK PRISON LAB WORK Chief Complaint LABWORK LABWORK PRISON LAB WORK PRISON LAB WORK PRISON LAB WORK PRISON LABWORK TROUBLE WALKING, UNSTEADY n/v Reason for Visit Abnormality of gait and mobility History of stroke Parkinsonism Polyneuropathy Dementia Chief Complaint PRISON LAB WOR K PRISON LAB WORK PRISON LAB WORK PRISON LABWORK TROUBLE WALKING, UNSTEADY n/v PRISON LABWORK Reason for Visit Abnormality of gait and mobility History of stroke Parkinsonism Polyneuropathy Dementia Chief Complaint PRISON LAB WOR K PRISON LAB WORK PRISON LAB WORK PRISON LABWORK TROUBLE WALKING, UNSTEADY n/v PRISON LABWORK PRISON LAB WORK PRISON LAB WORK Reason for Visit Abnormality of gait and mobility History of stroke Parkinsonism Polyneuropathy Dementia Chief Complaint PRISON LABWORK TROUBLE WALKING, UNSTEADY n/v PRISON LABWORK PRISON LAB WORK PRISON LAB WORK PRISON LABWORK PRISON LABWORK Reason for Visit Abnormality of gait and mobility History of stroke Parkinsonism Polyneuropathy Dementia Chief Complaint n/v PRISON LABWORK PRISON LAB WORK PRISON LAB WORK PRISON LABWORK PRISON LABWORK PRISON LAB WORK Chief Complaint n/v PRISON LABWORK PRISON LAB WORK PRISON LAB WORK PRISON LABWORK PRISON LABWORK PRISON LAB WORK PRISON LABWORK Chief Complaint n/v PRISON LABWORK PRISON LAB WORK PRISON LAB WORK PRISON LABWORK PRISON LABWORK PRISON LAB WORK PRISON LABWORK PRISON LAB WORK Chief Complaint PRISON LABWORK PRISON LABWORK PRISON LAB WORK PRISON LABWORK PRISON LAB WORK PRISON LAB WORK PRISON LAB WORK Chief Complaint PRISON LABWORK PRISON LAB WORK PRISON LABWORK PRISON LAB WORK PRISON LAB WORK PRISON LAB WORK LABWORK Chief Complaint PRISON LABWORK PRISON LAB WORK PRISON LABWORK PRISON LAB WORK PRISON LAB WORK PRISON LAB WORK LABWORK PRISON LAB WORK Chief Complaint PRISON LAB WOR K PRISON LABWORK PRISON LAB WORK PRISON LAB WORK PRISON LAB WORK LABWORK PRISON LAB WORK PRISON LAB WORK Chief Complaint PRISON LAB WOR K PRISON LABWORK PRISON LAB WORK PRISON LAB WORK PRISON LAB WORK LABWORK PRISON LAB WORK PRISON LAB WORK LABWORK Chief Complaint PRISON LABWORK PRISON LAB WORK PRISON LAB WORK PRISON LAB WORK LABWORK PRISON LAB WORK PRISON LAB WORK LABWORK PRISON LAB WORK Chief Complaint Admit Date PRISON LAB WORK April 04, 2024 5:00am LABWORK June 16, 2024 1 1:03am LABWORK June 17, 2024 5 :00am PRISON LAB WORK July 01, 2024 5:00am PRISON LAB WORK July 02, 2024 5:00am LABWORK July 03, 2024 5 :00am LABWORK July 05, 2024 5 :00am PRISON LAB WORK July 08 5:00am LABWORK July 12, 2024 5:00am PRISON LAB WORK July 17 5:00am LABWORK 2024 5:00am PRISON LAB WORK July 25 4:00am Chief Complaint Admit Date LABWORK June 16, 2024 1 1:03am LABWORK June 17, 2024 5 :00am PRISON LAB WORK July 01, 2024 5:00am PRISON LAB WORK July 02, 2024 5:00am LABWORK July 03, 2024 5 :00am LABWORK July 04, 2024 5 :00am LABWORK July 05, 2024 5 :00am PRISON LAB WORK July 08 5:00am PRISON LAB WORK July 09 5:00am LABWORK July 12, 2024 5:00am PRISON LAB WORK July 15 5:00am LABWORK July 16, 2024 5:00am PRISON LAB WORK July 17 5:00am LABWORK July 18, 2024 5:00am LABWORK 2024 5:00am PRISON LAB WORK July 24 5:00am PRISON LAB WORK July 25 4:00am LABWORK July 29, 2024 5:00 am PRISON LAB WORK August 12, 2024 4 :00am Chief Complaint Admit Date LABWORK June 16, 2024 1 1:03am LABWORK June 17, 2024 5 :00am PRISON LAB WORK July 01, 2024 5:00am PRISON LAB WORK July 02, 2024 5:00am LABWORK July 03, 2024 5 :00am LABWORK July 04, 2024 5 :00am LABWORK July 05, 2024 5 :00am PRISON LAB WORK July 08 5:00am PRISON LAB WORK July 09 5:00am LABWORK July 12, 2024 5:00am PRISON LAB WORK July 15 5:00am LABWORK July 16, 2024 5:00am PRISON LAB WORK July 17 5:00am LABWORK July 18, 2024 5:00am LABWORK 2024 5:00am PRISON LAB WORK July 24 5:00am PRISON LAB WORK July 25 4:00am LABWORK July 29, 2024 5:00 am PRISON LAB WORK August 12, 2024 4 :00am PRISON LAB WORK September 09, 2024 4 :00am Chief Complaint Admit Date LABWORK June 16, 2024 1 1:03am LABWORK June 17, 2024 5 :00am PRISON LAB WORK July 01, 2024 5:00am PRISON LAB WORK July 02, 2024 5:00am LABWORK July 03, 2024 5 :00am LABWORK July 04, 2024 5 :00am LABWORK July 05, 2024 5 :00am PRISON LAB WORK July 08 5:00am PRISON LAB WORK July 09 5:00am LABWORK July 12, 2024 5:00am PRISON LAB WORK July 15 5:00am LABWORK July 16, 2024 5:00am PRISON LAB WORK July 17 5:00am LABWORK July 18, 2024 5:00am LABWORK 2024 5:00am PRISON LAB WORK July 24 5:00am PRISON LAB WORK July 25 4:00am LABWORK July 29, 2024 5:00 am PRISON LAB WORK August 12, 2024 4 :00am PRISON LAB WORK September 09, 2024 4 :00am fall, head injury October 09, 2024 7:00p m Chief Complaint Admit Date PRISON LAB WORK July 01, 2024 5:00am PRISON LAB WORK July 02, 2024 5:00am LABWORK July 03, 2024 5 :00am LABWORK July 04, 2024 5 :00am LABWORK July 05, 2024 5 :00am PRISON LAB WORK July 08 5:00am PRISON LAB WORK July 09 5:00am LABWORK July 12, 2024 5:00am PRISON LAB WORK July 15 5:00am LABWORK July 16, 2024 5:00am PRISON LAB WORK July 17 5:00am LABWORK July 18, 2024 5:00am LABWORK 2024 5:00am PRISON LAB WORK July 24 5:00am PRISON LAB WORK July 25 4:00am LABWORK July 29, 2024 5:00 am PRISON LAB WORK August 12, 2024 4 :00am PRISON LAB WORK September 09, 2024 4 :00am fall, head injury October 09, 2024 7:00p m PRISON LAB WORK October 22, 2024 4:0 0am Additional Source Comments INFORMATION SOURCE (unrecogn ized section and content) DATE CREATED AUTHOR 11/16/2017 [facility] DATE CREATED AUTHOR AUTHOR'S ORGANIZ ATION 04/23/2019 [facility] [place] [facility] ([place]) DATE CREATED AUTHOR AUTHOR'S ORGANIZ ATION 12/22/2024 [facility] DATE CREATED AUTHOR AUTHOR'S ORGANIZ ATION 03/01/2025 [facility] DATE CREATED AUTHOR AUTHOR'S ORGANIZ ATION 04/01/2025 [facility] Goals (unrecognized section and content) [...] Status: Active Member Role Status Dates Dr. oHrtensia Unger MD Primary Care Provider Active Dr. Jesse Davis , Emergency Provider Active Dr. Gonzalo Stephens DO [...] Active Start: July 16, 2024 Dr. 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 Specialty Start Date End Date [facility] [address] [facility] [address] [place], [place] [id number] Specialty Powder Operator Physical Therapy 07/08/13 Fredo Kathleen MD [address] [place], [place] [id number] Specialty Powder Operator Cardiology 07/08/13 Power Avina MD [address] [place], [place] [id number] Specialty Powder Operator Radiation Oncology 07/08/13 Source Comments (unrecognize d section and content) In the event this informatio n is protected by the Federal Confidentiality of Alcohol and Drug Abuse Patient Records regulations: The Federal rules restrict any use of the information to criminally investigate or prosecute any alcohol or drug abuse patient.[facility] Reason for Visit (unrecogniz ed section [...] THE PRIMARY CLINICAL RECORDS. [facility] [employer] [facility]. provides no warranty or guarantee of the accuracy or completeness of information in this document.
[2025-04-21 08:45] LABS: INR Fingerstick 2.8
== END ==
PROVIDERS: PCP Family Medicine
DX: Z79.01 Long term (current) use of anticoagulants (principal)
CPT/HCPCS: 36416; 85610

== ENCOUNTER 2025-05-07 13:44 | Emergency (ER) | payer MEDICARE, SELFPAY ==
[2025-05-07 13:44] VITALS: BP 178/80; PULSE 68; RESP 17; TEMP 36.6; O2SAT 96
--- NOTE | 2025-05-07 14:22 | CT_ITS ---
PROCEDURE: BRAIN/HEAD WITHOUT CONTRAST 05/07/2025 REASON FOR EXAM: BLUNT HEAD TRAUMA ON COUMADIN TECHNIQUE: Procedure Code: CTBR Modality: CT Procedure: BRAIN/HEAD WITHOUT CONTRAST Coronal and Sagittal reconstruction series were provided. One or more dose reduction techniques were used (e.g., Automated exposure control, adjustment of the mA and/or kV according to patient size, use of iterative reconstruction technique. RADIATION DOSE SUMMARY: CTDlvol: 47.36 mGy DLP: 925.62 mGycm COMPARISON: CT head October 09, 2024. FINDINGS: Brain: No acute territorial infarction. No acute intracranial hemorrhage. No mass-effect or midline shift. Diffuse white matter hypodensities which are nonspecific but likely due to chronic small-vessel ischemia. Parenchymal volume loss consistent with brain atrophy. No ventriculomegaly. The orbits are unremarkable. The craniocervical junction is unremarkable. CSF Spaces: Brain atrophy. Sinuses/Mastoids: Clear. Bones: No acute bony abnormalities. CT/Brain/Head without Contrast IMPRESSION: No acute intracranial hemorrhage. Reading Location: [id number]
[2025-05-07 14:44] VITALS: BP 139/69; PULSE 68
[2025-05-07 14:45] LABS: Prothrombin Time (Protime)PT. 32.4 SECONDS (11.7-14.9)
[2025-05-07 15:00] VITALS: BP 142/101
--- NOTE | 2025-05-07 15:59 | EDS_ITS ---
HPI History of Present Illness Chief Complaint: Fall Detail of Chief Complaint: Mechanical fall with blunt head trauma left side on Coumadin Onset/Context/Timing Onset: Today and Hours Mechanism/Context: Blunt Injury and Fall Location of pain/injuries: - (Hit left side of the head) Quality of Pain: - (Presently has no pain) Location: Left scalp Current Severity: Gone Maximum Severity: Mild Worsened by: Nothing/not applicable Relieved by: Not applicable Associated Symptoms Associated Symptoms: Negative for Parasthesias, Weakness, Loss of function, Inability to ambulate, Loss of consciousness or Amnesia Narrative Narrative: Patient is a 89-year-old woman who presents from [facility]. She presents because of fall. She hit her head. She is on Coumadin for multiple reasons which include recurrent DVT, atrial fibrillation and stroke. She also has history of generalized anxiety, history of falls, major depression, hyperlipidemia, essential hypertension, atherosclerotic heart disease. Patient states he was getting up on the table. She did not hold on. She slipped. She fell onto her left side. She denies pain in her left lower extremity or left upper extremity. She denies double vision, blurred vision loss of vision. Eyes ringers decreased hearing. Has trouble with speech or swallowing. She has cardiac respiratory symptoms. She denies black or maroon-colored stool. 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 Rheumatoid arthritis Parkinsonian syndrome History of pulmonary embolus (PE) Postoperative atrial fibrillation (04/04/13) Recurrent deep vein thrombosis (DVT) Hypercoagulable state History of non-ST elevation myocardial infarction (NSTEMI) (10/01/16) Atherosclerotic heart disease of [place] coronary artery without angina pectoris Paroxysmal atrial fibrillation Essential hypertension Restrictive airway disease Atrial fibrillation with RVR (10/01/16) Bilateral breast cancer Depression Home Medications ?Medication ?Instructions ?Recorded ?Last Taken ?Type venlafaxine 75 mg tablet 75 mg PO QHS DEPRESSION 01/2706/15/22 20:45 History albuterol sulfate 90 mcg/actuation 2 puff inhalation Q 6H PRN Wheezing 09/23/21 Unknown History aerosol inhaler (Ventolin HFA) losartan 100 mg tablet 100 mg PO DAILY BP 09/23/21 06/16/22 09:15 History trazodone 100 mg tablet 100 mg PO QHS Sleep 09/23/21 06/15/22 20:45 History hydroxychloroquine 200 mg tablet 200 mg PO BID RA /12/1706/16/22 09:15 History venlafaxine 150 mg 150 mg PO BREAKFAST DEPRESSI ON 11/02/21 06/16/22 09:15 History capsule,extended release 24 hr alprazolam 0.25 mg tablet 0.25 mg PO QHS PRN PRN 11/1006/15/22 11:30 Rx Anxiety/Restlessness/Sleep #0 tabs potassium chloride 20 mEq 20 meq PO DAILYCM 30 days #3 0 tabs 11/10/21 06/16/22 09:15 Rx tablet,extended release(part/cryst) (Klor-Con M) alprazolam 0.5 mg tablet 0.5 mg PO QHS DEPRESSION 06/15/22 20:45 History metoprolol tartrate 100 mg tablet 100 mg PO BID HTN 06/16/22 09:15 History carbidopa 10 mg-levodopa 100 mg 1 tab PO TID 01/09/23 Unknown History disintegrating tablet metoprolol tartrate 100 mg tablet 100 mg PO BID Unknown History warfarin 5 mg tablet 5 mg PO DINNER AFIB 01/09/23 Unknown History warfarin 6 mg tablet 6 mg PO .3XW 01/09/23 Unknow n History ondansetron 4 mg disintegrating 4 mg PO Q8H PRN PRN Na usea #10 tabs 02/02/23 Unknown Rx tablet clindamycin HCl 300 mg capsule 300 mg PO TID #30 caps 04/28/25 Unknown Rx (Cleocin HCl) mirtazapine 15 mg tablet 15 mg PO QHS 04/28/25 Unknow n History quetiapine 25 mg tablet 25 mg PO QHS 04/28/25 Unknow n History tobramycin 0.3 % eye drops 1 drp ophthalmic (eye) Q2H #5 mL 04/28/25 Unknown Rx Allergy/AdvReac Type Severity Reaction Status Date / Time memantine Allergy PT UNSURE Verified 05/07/25 13:47 OF REACTION Penicillins Allergy Anaphylaxis Verified 05/07/25 13:47 acetaminophen (From Vicodin) AdvReac Itching Verified 05/07/25 13:47 codeine AdvReac Nausea Verified 05/07/25 13:47 ezetimibe (From Zetia) AdvReac Itching Verified 05/07/25 13:47 hydrocodone bitartrate (From AdvReac Itching Verified 05/07/25 13:47 Vicodin) Boiewek-CRT-TbV Reductase AdvReac Other Verified 05/07/25 13:47 Inhibitor (Wecbcrx-Vrs-Vit Reductase Inhibitor) Surgical History History of coronary artery stent placement (12/2003) History of left heart catheterization (10/13/15) History of cardioversion (10/01/16) 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) History of appendectomy Social History household members: none Smoking Status: Former smoker how long ago did patient quit smokin, 1ppd second hand exposure: Yes alcohol intake: never substance use type: does not use ROS ROS ED Constitutional Constitutional ED: Denies chills, fever(s), subjective or sweats Eyes Eyes: Denies blurry vision or change in vision Cardiovascular Cardiovascular: Denies chest pain or palpitations Respiratory/Chest Respiratory/Chest: Denies cough, dyspnea or dyspnea on exertion Gastrointestinal Gastrointestinal: Reports abdominal pain; Denies nausea or vomiting Musculoskeletal Musculoskeletal: Denies arthralgias, back pain, myalgias or neck pain Integumentary Denies Abrasions or rash Neurologic Neurologic: Denies headache(s) or paresthesias Psychiatric Psychiatric: Denies anxiety or depression Hematologic/Lymphatic Hematologic/Lymphatic: Reports easy bruising EXAM Physical Exam Const Vital Signs: 05/07/25 13:44 05/07/25 14:03 05/07/25 14:44 Temperature 97.9 F Temperature Source Oral Pulse Rate 68 68 Respiratory Rate 17 Respiratory Effort Normal Non-Labored Respiratory Depth Normal Respiratory Pattern Normal Blood Pressure 178/80 H 139/69 H Blood Pressure Mean 112 92 Pulse Ox 96 Oxygen Delivery Method Room Air Room Air 05/07/25 15:00 Temperature Temperature Source Pulse Rate Respiratory Rate Respiratory Effort Respiratory Depth Respiratory Pattern Blood Pressure 142/101 H Blood Pressure Mean 114 Pulse Ox Oxygen Delivery Method Positive well nourished and well developed; Negative for cachectic, contractures or unkempt Constitutional Narrative: Vital signs noted. Her blood pressure is slightly elevated. General Appearance ED: well developed and NAD; Negative for unkempt, cachectic or contractures Nutritional Appearance: Negative for cachectic HEENT Denies TM's clear HEENT Narrative: There is no dental trauma. There is no trismus. Posterior pharynx is normal. Uvula is midline. There is no deviation tongue or protrusion. atraumatic and tenderness Nose: Negative for septum abnormal Tympanic Membrane ED: Negative for TM's clear Eyes PERRL and EOMs intact bilaterally General Eye ED: Yes other Other Details: There is no subconjunctival hemorrhage. There is no nystagmus. Neck full ROM General: Negative for tenderness Chest Wall inspection of chest normal and palpation of chest normal Resp normal respiratory effort and clear to auscultation bilaterally Cardio regular rhythm, S1 normal heart sound, S2 normal heart sound and no murmurs GI normal to inspection, nondistended, normoactive bowel sounds, non-tender, non- distended and no masses Back/Spine normal to inspection Extremity normal to inspection and full ROM Neuro oriented x3, CN's II-XII intact bilaterally, moves all extremities, no focal motor deficits and no sensory deficits noted [place] Coma Scale: document GCS findings Spontaneous Obeys Commands Oriented 15 Sensorium / Orientation: alert Motor Exam: strength 5/5 throughout Deep Tendon Reflexes: Rt Triceps (C7): 1+, Lt Triceps (C7): 1+, Rt Biceps (C5, C6): 1+, Lt Biceps (C5, C6): 1+, Rt Brachioradialis (C6): 1+, Lt Brachioradialis (C6): 1+, Rt Patellar (L4): 1+, Lt Patellar (L4): 1+, Rt Ankle (S1): 1+ and Lt Ankle (S1): 1+ Deep Tendon Reflexes Back: Rt Patellar (L4): 1+, Lt Patellar (L4): 1+, Rt Ankle (S1): 1+ and Lt Ankle (S1): 1+ Plantar Reflex: Downgoing: bilateral (There is no clonus at the ankles.) Psych mental status grossly normal and thought process normal Appearance: Negative for unkempt Skin no rashes or lesions noted, no wounds, skin turgor normal and no jaundice MDM MDM MDM Narrative Medical decision making narrative: Per both the [place] CT head rule and [place] rule imaging is required since patient is greater than the age of 65 and 62 respectively on Coumadin. PT/INR was obtained. If greater than 4 she will need a repeat scan and probable observation. Lab Data Lab results narrative: PT INR is 32.4 and 3.1. Labs: Laboratory Results - last 24 hr 05/07/25 14:00 PT 32.4 H INR 3.1 Radiography Diagnostic Testing: Clinical Impression(s) from Imaging Studies Brain CT 05/07/25 14:22 IMPRESSION: No acute intracranial hemorrhage. Reading Location: [facility] CT was reviewed by me. Radiologist read as no acute intracranial process. Therefore we will discharge to home. Discharge Plan Triage Chief Complaint: Fall ED Provider: Adam Sigala Dx/Rx/DC Orders Clinical Impression: Blunt head trauma, Anticoagulant long-term use, Injury due to fall, Essential hypertension, Hyperlipidemia, Heart failure with preserved ejection fraction, Paroxysmal atrial fibrillation, Recurrent deep vein thrombosis (DVT), Atrial fibrillation Instructions: ED Head Injury (Adult) Prescriptions: No Action trazodone 100 mg tablet 100 mg PO QHS Patient Comments: TAKE 1 TABLET BY MOUTH AT BEDTIME albuterol sulfate [Ventolin HFA] 90 mcg/actuation HFA aerosol inhaler 2 puff inhalation Q6H PRN (Reason: Wheezing) losartan 100 mg tablet 100 mg PO DAILY Patient Comments: DAUGHTER IS UNSURE IF PT IS STILL TAKING. SHE WILL VERIFY AND [facility] warfarin 6 mg tablet 6 mg PO .3XW Rx Instructions: take on tab PO on time a day three times weekly on , Th and Sun in the evening carbidopa-levodopa 10-100 mg tablet,disintegrating 1 tab PO TID metoprolol tartrate 100 mg tablet 100 mg PO BID quetiapine 25 mg tablet 25 mg PO QHS mirtazapine 15 mg tablet 15 mg PO QHS tobramycin 0.3 % drops 1 drp ophthalmic (eye) Q2H Qty: 5 0RF Rx Instructions: to both eyes while awake first 24 hours, then 3x/day on days 2-5 clindamycin HCl [Cleocin HCl] 300 mg capsule 300 mg PO TID Qty: 30 0RF venlafaxine 75 MG tablet 75 mg PO QHS venlafaxine 150 mg Capsule,Extended Release 24hr 150 mg PO BREAKFAST hydroxychloroquine 200 mg tablet 200 mg PO BID Patient Comments: TAKE 1 TABLET BY MOUTH TWICE DAILY alprazolam 0.25 mg Tablet 0.25 mg PO QHS PRN PRN (Reason: Anxiety/Restlessness/Sleep) Qty: 0 0RF potassium chloride [Klor-Con M20] 20 mEq Tablet,Er Particles/Crystals 20 meq PO DAILYCM 30 Days Qty: 30 0RF metoprolol tartrate 100 mg tablet 100 mg PO BID alprazolam 0.5 mg tablet 0.5 mg PO QHS warfarin 5 mg tablet 5 mg PO DINNER Rx Instructions: 1 tb PO one time a day four times weekly on Mon, Wed, Fri, and Sat Evening. ondansetron [ondansetron] 4 mg tablet,disintegrating 4 mg PO Q8H PRN PRN (Reason: Nausea) Qty: 10 0RF Primary Care Provider: Melo Shrestha Referrals: Melo Shrestha DO [Primary Care Provider, Medical] - As Needed Print Language: Lithuanian Disposition Disposition: Home, Self Care
[2025-05-07 16:21] VITALS: BP 174/81; PULSE 76; RESP 16; TEMP 36.7; O2SAT 100
== END 2025-05-07 16:23 | disposition home or self-care (01) ==
PROVIDERS: Emergency Provider Emergency Medicine; Visit Provider Emergency Medicine
DX: S09.90XA Unspecified injury of head, initial encounter (principal); G20.A1 Parkinson's disease without dyskinesia, without mention of fluctuations; I11.0 Hypertensive heart disease with heart failure; I50.30 Unspecified diastolic (congestive) heart failure; I48.0 Paroxysmal atrial fibrillation; W01.10XA Fall on same level from slipping, tripping and stumbling with subsequent striking against unspecified object, initial encounter; I25.10 Atherosclerotic heart disease of native coronary artery without angina pectoris; E78.5 Hyperlipidemia, unspecified; R29.6 Repeated falls; Z95.5 Presence of coronary angioplasty implant and graft; Z79.01 Long term (current) use of anticoagulants; Z79.899 Other long term (current) drug therapy; Z86.711 Personal history of pulmonary embolism; Z86.718 Personal history of other venous thrombosis and embolism; Z87.891 Personal history of nicotine dependence
CPT/HCPCS: 70450; 85610; 99285; A4216

== ENCOUNTER → 2025-05-26 04:00 | Outpatient (REF) | payer MEDICARE, SELFPAY ==
--- OUTSIDE RECORDS SUMMARY | 2025-05-26 03:43 | XMS RPT_ITS | CCD ---
Author Organization [facility] Care Team Providers Care Ice Maker Name Role Phone Dr. Joe Rosario Emergency [...] Se Schmidt DO Emergency Provider Dr. Melo Monzon MD Primary Care [...] Care Unavailable Monzon OLS, Melo Attending Unavailable Monzno OLS, Melo Primary Care Unavailable Monzon OLS, [...] Facility (20 sources) Acetaminophen Drug Allergy 06-17-19 [facility] (20 sources) Codeine; Translations: [CODEINE] Drug Allergy 01-25-20 05 Nausea [facility] (20 sources) ezetimibe; Translations: [EZETIMIBE] Drug Allergy 06-28-19 07 Intolerance [facility] (20 sources) HYDROcodone; Translations: [hydrocodone bitartrate] Drug Allergy 06-17-19 Itching [facility] (20 sources) Penicillins; Translations: [PENICILLINS] Allergy to substance 01-25-20 05 Anaphylaxis [facility] (20 sources) Akqazmb-Dbo-Dol Reductase Inhibitor; Translations: [Vjsneto-Uii-Gem Reductase Inhibitor] Propensity to adverse reactions 06-17-19 Other [facility] Comment on above: TOLERATES LIPITOR (4 sources) Memantine; Translations: [MEMANTINE] Drug Allergy 10-10-19 25 Intolerance [facility] (2 sources) Acetaminophen / HYDROcodone; Translations: [HYDROCODONE-ACET AMINOPHEN] Drug Allergy 07-15-19 12 Itching [facility] (2 sources) donepezil; Translations: [DONEPEZIL] Drug Allergy 12-18-19 25 Intolerance [facility] (2 sources) HMG-CoA reductase inhibitor; Translations: [HEJHDZB-YFX-TQL REDUCTASE INHIBITORS] Drug Intolerance 11-23-19 06 Other: See Comments [facility] (2 sources) Lovastatin; Translations: [LOVASTATIN] Drug Allergy 01-09-20 15 Myalgia [facility] Work Phone: (1 source) Acetaminophen Drug Allergy 03-17-20 [facility] (1 source) Codeine Drug Allergy 03-17-20 [facility] (1 source) ezetimibe Drug Allergy 03-17-20 [facility] (1 source) Memantine Drug Allergy 03-17-20 [facility] Medications Current Medications Medication Drug [...] Active docusate sodium 50 mg / sennosides, half-way 8.6 mg oral tablet (1 source) take [...] neuropathy, without long-term current use of insulin ([facility]) Glucose Meter of Choice - Kit [...] 06-23-2021 End: 09-23-2021 Fluticasone Propionate 50 mcg/actuation [place],Suspension Discontinued 1 NMA NASAL TWICE A DAY [...] Start: 11-25-2010 take 2 puff(s) by [facility] twice daily fluticasone (FLOVENT HFA) 110 mcg/Actuation [...] source) Anticholinergic Start: 03-16-2015 End: 12-20-2024 Ipratropium [place] (ATROVENT) 0.03 % nasal spray Indications: Other [...] Coronary arteriosclerosis; Translations: [Atherosclerotic heart disease of [place] coronary artery without angina pectoris] Onset: 5 [...] sources) Long-term current use of anticoagulant; Translations: [detention (current) use of anticoagulants] 09-23-2021 Episodic Other aftercare (2 sources) detention (current) use of anticoagulants; Translations: [intermediate frame tender (current) use of anticoagulants] Onset: Episodic Other aftercare (2 sources) Other group home (current) drug therapy; Translations: [Other intermediate manager (current) drug therapy] Onset: Episodic Other circulatory [...] Test Name Value Interpretation Reference Range Facility [facility] 12-17-2024 CN Office Visit (NRMDN) COLETTE RICHARDSON ([id number]) 1935 F Date Time Provider Department 12/17/24 11:00 AM DIANA MCKEON During your visit today, we recorded the following information about you: Weight 64.8 kg Diana Mckeon MD 12/20/2024 5:59 PM [facility]igned [facility] PATIENT EVALUATION Recording using [employer] software for draft documentation of the visit was discussed with the patient/authorized area representative; all questions welcomed and answered. Patient/authorized area representative agreed to proceed Referring Provider: Melo Monzon [address] [facility] [address] Dear Melo Monzon: Thank you for referring [...] three years ago by a neurologist in [place]. At the time of diagnosis, she was [...] physical therapy and an exercise class called [employer] [facility], which she enjoys. She does not [...] (none) Urinar (more content not included)... Normal [facility] normalized rat io (INR) calculationOrdered By: Melo Monzon on 10-22-2024 INR Coag (Bld) [Relative time] 2.3 {INR} [facility] Prothrombin timeOrdered By: Melo Monzon on 10-22-2024 PT Coag (PPP) [Time] 26.0 s High 11.7-14.9 [facility] Absolute lymphocyte countOrd ered By: Se Schmidt on 10-09-2024 Lymphocytes Auto (Unsp spec) [#/Vol] 1.87 10*3/uL 0.83-4.51 [facility] Absolute neutrophil countOrd ered By: Se Schmidt on 10-09-2024 Neutrophils (Bld) [#/Vol] 2.9 10*3/uL 2.0-7.7 [facility] Activated partial thrombopla stin time (aPTT) in platelet poor plasma by coagulation aOrdered By: Se Schmidt on 10-09-2024 aPTT Coag (PPP) [Time] 32.4 s 24.1-36.[address] [facility] Anion gap in Serum or Plasma Ordered By: Se Schmidt on 10-09-2024 Anion gap [Moles/Vol] 7 mmol/L 5-15 [facility] Automated lymphocyte count a s percentage of total leukocytesOrdered By: Se Schmidt on 10-09-2024 Lymphocytes/100 WBC Auto (Unsp spec) 33.8 % 19-41 [facility] BUN/creatinine ratioOrdered By: Se Schmidt on 10-09-2024 Urea nitrogen/Creatinine [Mass ratio] 20.6 mg/mg High 10-20 [facility] Basic Metabolic Profile (BMP )on 10-09-2024 BUN/CRE 20.6 RATIO High 10-20 [facility] Comment on above: Performed By: #### L 500.2500, L100.0100, L300.4310, L300.3900 #### [facility] [address] [place], [address] Calcium [Mass/Vol] 8.8 mg/dL Normal 7.6-11.0 [facility] Comment on above: Performed By: #### L 500.2500, L100.0100, L300.4310, L300.3900 #### [facility] [address] [place], [address] Chloride [Moles/Vol] 99 mmol/L Normal 98-108 [facility] Comment on above: Performed By: #### L 500.2500, L100.0100, L300.4310, L300.3900 #### [facility] [address] [place], [address] CO2 [Moles/Vol] 28.1 mmol/L Normal 21.0-32.0 [facility] Comment on above: Performed By: #### L 500.2500, L100.0100, L300.4310, L300.3900 #### [facility] [address] [place], [address] Creatinine [Mass/Vol] 0.66 mg/dL Low 0.70-1.20 [facility] Comment on above: Performed By: #### L 500.2500, L100.0100, L300.4310, L300.3900 #### [facility] [address] [place], [address] ECRCL 43.20 ml/min Low 50-250 [facility] Comment on above: Performed By: #### L 500.2500, L100.0100, L300.4310, L300.3900 #### [facility] [address] [place], [address] GAP 7 Normal 5-15 [facility] Comment on above: Performed By: #### L 500.2500, L100.0100, L300.4310, L300.3900 #### [facility] [address] [place], [address] GFR/1.73 sq M.predicted among non-blacks MDRD (S/P/Bld) [Vol rate/Area] 85 mL/min/{1.73_m2} Normal >60 [facility] Comment on above: Result Comment: mL/m in/1.73m2 CKD-EPI Creatinine Equation (2020) Performed By: #### L 500.2500, L100.0100, L300.4310, L300.3900 #### [facility] [address] [place], [address] Glucose [Mass/Vol] 131 mg/dL High 70-99 [facility] Comment on above: Performed By: #### L 500.2500, L100.0100, L300.4310, L300.3900 #### [facility] [address] [place], [address] Potassium [Moles/Vol] 4.3 mmol/L Normal 3.3-5.1 [facility] Comment on above: Performed By: #### L 500.2500, L100.0100, L300.4310, L300.3900 #### [facility] [address] [place], [address] Sodium [Moles/Vol] 134 mmol/L Normal 133-145 [facility] Comment on above: Performed By: #### L 500.2500, L100.0100, L300.4310, L300.3900 #### [facility] [address] [place], [address] Urea nitrogen [Mass/Vol] 14 mg/dL Normal 4-19 [facility] Comment on above: Performed By: #### L 500.2500, L100.0100, L300.4310, L300.3900 #### [facility] [address] [place], [place], [address] Basophil percentageOrdered B y: Se Schmidt on 10-09-2024 Basophils/100 WBC (Bld) 0.7 % 0-[address] [facility] Brain/Head without Contrasto n 10-09-2024 Brain/Head without Contrast [facility] Imaging Services [address] [place] [address] Brain/Head without Contrast MR#: [id number] Acct: [id number] Name: COLETTE RICHARDSON Rep #: [id number] : 1935 F 89 From: Gonzalo Schmidt MD PCP: Dr. Melo Monzon MD Status: REG ER Study: Brain/Head without Contrast Date of Exam: 09/26 09/20 Exam# [id number] Ordering Dr: Se Schmidt DO EXAM: CT [...] evaluation with MRI is recommended. Reading Location: [facility] CC: Dr. Melo Monzon MD; Dr. Se Schmidt DO Straightener And Aligner: Signed Normal [facility] CBC W/Diff, Automatedon 05 Absolute Lymph 1.87 X10 3/uL Normal 0.83-4.51 [facility] Comment on above: Performed By: #### L 500.2500, L100.0100, L300.4310, L300.3900 #### [facility] [address] [place], [address] Absolute Neut 2.9 X10 3/uL Normal 2.0-7.7 [facility] Comment on above: Performed By: #### L 500.2500, L100.0100, L300.4310, L300.3900 #### [facility] [address] [place], [address] Basophils/100 WBC (Bld) 0.7 % Normal 0-[address] [facility] Comment on above: Performed By: #### L 500.2500, L100.0100, L300.4310, L300.3900 #### [facility] [address] [place], [address] Eosinophils/100 WBC (Bld) 4.2 % Normal 0-5 [facility] Comment on above: Performed By: #### L 500.2500, L100.0100, L300.4310, L300.3900 #### [facility] [address] [place], [address] Erythrocyte distribution width (RBC) [Ratio] 12.3 % Normal 11.6-14.6 [facility] Comment on above: Performed By: #### L 500.2500, L100.0100, L300.4310, L300.3900 #### [facility] [address] [place], [address] Hematocrit (Bld) [Volume fraction] 38.7 % Normal 37-47 [facility] Comment on above: Performed By: #### L 500.2500, L100.0100, L300.4310, L300.3900 #### [facility] [address] [place], [address] Hemoglobin (Bld) [Mass/Vol] 13.1 g/dL Normal 12.0-15.0 [facility] Comment on above: Performed By: #### L 500.2500, L100.0100, L300.4310, L300.3900 #### [facility] [address] [place], [address] IG% 0.200 Normal 0.0-0.9 [facility] Comment on above: Result Comment: IG% - Immature Granulocytes (promyelocytes, myelocytes and metamyelocytes) > 1% indicates that a LEFT SHIFT is Present. Performed By: #### L 500.2500, L100.0100, L300.4310, L300.3900 #### [facility] [address] [place], [address] Lymphocytes/100 WBC (Bld) 33.8 % Normal 19-41 [facility] Comment on above: Performed By: #### L 500.2500, L100.0100, L300.4310, L300.3900 #### [facility] [address] [place], [address] MCH (RBC) [Entitic mass] 31.3 pg Normal 27.0-32.0 [facility] Comment on above: Performed By: #### L 500.2500, L100.0100, L300.4310, L300.3900 #### [facility] [address] [place], [address] MCHC (RBC) [Mass/Vol] 33.9 g/dL Normal 32-36 [facility] Comment on above: Performed By: #### L 500.2500, L100.0100, L300.4310, L300.3900 #### [facility] [address] [place], [address] MCV (RBC) [Entitic vol] 92.6 fL Normal 81-[address] [facility] Comment on above: Performed By: #### L 500.2500, L100.0100, L300.4310, L300.3900 #### [facility] [address] [place], [address] Monocytes/100 WBC (Bld) 8.5 % Normal 0-10 [facility] Comment on above: Performed By: #### L 500.2500, L100.0100, L300.4310, L300.3900 #### [facility] [address] [place], [address] Neutrophils/100 WBC (Bld) 52.6 % Normal 47-70 [facility] Comment on above: Performed By: #### L 500.2500, L100.0100, L300.4310, L300.3900 #### [facility] [address] [place], [address] Nucleated RBC (Bld) [#/Vol] 0 10*3/uL Normal 0-5 [facility] Comment on above: Performed By: #### L 500.2500, L100.0100, L300.4310, L300.3900 #### [facility] [address] [place], [address] Platelet mean volume (Bld) [Entitic vol] 10.3 fL Normal 6.2-12.0 [facility] Comment on above: Performed By: #### L 500.2500, L100.0100, L300.4310, L300.3900 #### [facility] [address] [place], [address] Platelets (Bld) [#/Vol] 196 10*3/uL Normal 150-450 [facility] Comment on above: Performed By: #### L 500.2500, L100.0100, L300.4310, L300.3900 #### [facility] [address] [place], [address] RBC (Bld) [#/Vol] 4.18 10*6/uL Low 4.2-5.4 [facility] Comment on above: Performed By: #### L 500.2500, L100.0100, L300.4310, L300.3900 #### [facility] [address] [place], [address] RDW SD 42.1 fl Normal 35.1-43.9 [facility] Comment on above: Performed By: #### L 500.2500, L100.0100, L300.4310, L300.3900 #### [facility] [address] [place], [address] WBC (Bld) [#/Vol] 5.5 10*3/uL Normal 4.4-11.0 [facility] Comment on above: Performed By: #### L 500.2500, L100.0100, L300.4310, L300.3900 #### [facility] [address] [place], [address] Carbon dioxide, total [Moles /volume] in Central venous bloodOrdered By: Se Schmidt on 10-09-2024 CO2 [Moles/Vol] 28.1 mmol/L 21.0-32.0 [facility] Chloride assayOrdered By: Cedric Schmidt on 10-09-2024 Chloride [Moles/Vol] 99 mmol/L 98-108 [facility] Emergency Department Summary on 10-09-2024 Emergency Department Summary [facility] Medical Records Department [address] [place] [address] Emergency Department Summary 10/09/24 MR#: [id number] Acct: [id number] Name: COLETTE RICHARDSON Rep #: [id number] : 1935 89 From: Se Lu PCP: Dr. Melo Monzon MD Status:DEP ER Location: ED HPI HPI - Fall History of Present Illness Chief Complaint: Head Injury Informant: patient and family Narrative Narrative: Brought from [facility] living by EMS daughter present for the [...] aortic (valve) stenosis Poor balance Frequent falls detention current use of anticoagulant Rheumatoid arthritis Parkinsonian syndrome History of pulmonary embolus (PE) Postoperative atrial fibrillation (04/04/13) Recurrent deep vein thrombosis (DVT) Hypercoagulable state History of non-ST elevation myocardial infarction (NSTEMI) (10/01/16) Atherosclerotic heart disease of [place] coronary artery without angina pectoris Paroxysmal atrial [...] (From AdvReac Itching Verified 10/09/24 19:02 Vicodin) Vmuvzuj-JWW-MiW Reductase AdvReac Other Verified 10/09/24 19:02 Inhibitor (Phuzdsx-Syl-Lqb Reductase Inhibitor) Surgical History History of coronary [...] dysuria, hematur (more content not included)... Normal [facility] Eosinophil percentageOrdered By: Se Schmidt on 10-09-2024 Eosinophils/100 WBC (Bld) 4.2 % 0-5 [facility] Erythrocyte distribution wid th ratioOrdered By: Se Schmidt on 10-09-2024 Erythrocyte distribution width (RBC) [Ratio] 12.3 % 11.6-14.6 [facility] Erythrocyte distribution wid th standard deviationOrdered By: Se Schmidt on 10-09-2024 Erythrocyte distribution width (RBC) [Ratio] 42.1 fl 35.1-43.9 [facility] Glomerular filtration rate ( GFR) estimation/1.73 sq m using serum, plasma, or whole bOrdered By: Se Schmidt on 10-09-2024 GFR/1.73 sq M.predicted among non-blacks MDRD (S/P/Bld) [Vol rate/Area] 85 mL/min/{1.73_m2} >60 [facility] Comment on above: mL/min/1.73m2 CKD-EP I Creatinine Equation (2020) Hematocrit Auto (Bld) [Volum e fraction]Ordered By: Se Schmidt on 10-09-2024 Hematocrit (Bld) [Volume fraction] 38.7 % 37-47 [facility] Hemoglobin measurementOrdere d By: Se Schmidt on 10-09-2024 Hemoglobin (Bld) [Mass/Vol] 13.1 g/dL 12.0-15.0 [facility] Immature granulocytes/100 WB C Auto (Bld)Ordered By: Se Schmidt on 10-09-2024 Immature granulocytes/100 WBC (Bld) 0.200 % 0.0-0.9 [facility] Comment on above: IG% - Immature Granu locytes (promyelocytes, myelocytes and metamyelocytes) > 1% indicates that a LEFT SHIFT is Present. International normalized rat io (INR) calculationOrdered By: Se Schmidt on 10-09-2024 INR Coag (Bld) [Relative time] 2.4 {INR} [facility] MCV (mean corpuscular volume ) determinationOrdered By: Se Schmidt on 10-09-2024 MCV (RBC) [Entitic vol] 92.6 fL 81-99 [facility] Mean corpuscular hemoglobin (MCH) determinationOrdered By: Se Schmidt on 10-09-2024 MCH (RBC) [Entitic mass] 31.3 pg 27.0-32.0 [facility] Mean corpuscular hemoglobin concentration (MCHC) determinationOrdered By: Se Schmidt on 10-09-2024 MCHC (RBC) [Mass/Vol] 33.9 g/dL 32-36 [facility] Mean platelet volume determi nationOrdered By: Se Schmidt on 10-09-2024 Platelet mean volume (Bld) [Entitic vol] 10.3 fL 6.2-12.0 [facility] Monocyte percentageOrdered B y: Se Schmidt on 10-09-2024 Monocytes/100 WBC (Bld) 8.5 % 0-[address] [facility] Neutrophil percentageOrdered By: Se Schmidt on 10-09-2024 Neutrophils/100 WBC (Bld) 52.6 % 47-70 [facility] Nucleated red blood cell per centageOrdered By: Se Schmidt on 10-09-2024 Nucleated RBC/100 WBC (Bld) [Ratio] 0 % 0-5 [facility] Partial Thromboplast Timeon 10-09-2024 aPTT Coag (Bld) [Time] 32.4 s Normal 24.1-36.[address] [facility] Comment on above: Performed By: #### L 500.2500, L100.0100, L300.4310, L300.3900 #### [facility] [address] [place], [address] Platelet countOrdered By: Cedric Schmidt on 10-09-2024 Platelets (Bld) [#/Vol] 196 10*3/uL 150-450 [facility] Potassium measurement (mass/ volume)Ordered By: Se Schmidt on 10-09-2024 Potassium (Unsp spec) [Mass/Vol] 4.3 mmol/L 3.3-5.1 [facility] Prothrombin Time w/INRon INR Coag (PPP) [Relative time] 2.4 {INR} Normal [facility] Comment on above: Performed By: #### L 500.2500, L100.0100, L300.4310, L300.3900 #### [facility] [address] [place], [address] PT Coag (PPP) [Time] 26.6 s High 11.7-14.9 [facility] Comment on above: Performed By: #### L 500.2500, L100.0100, L300.4310, L300.3900 #### [facility] [address] [place], [address] Prothrombin timeOrdered By: Se Schmidt on 10-09-2024 PT Coag (PPP) [Time] 26.6 s High 11.7-14.9 [facility] RBC Auto (Bld) [#/Vol]Ordere d By: Se Schmidt on 10-09-2024 RBC (Bld) [#/Vol] 4.18 10*6/uL Low 4.2-5.4 [facility] Serum creatinine measurement (mass/volume)Ordered By: Se Schmidt on 10-09-2024 Creatinine [Mass/Vol] 0.66 mg/dL Low 0.70-1.20 [facility] Serum glucose measurement (m ass/volume)Ordered By: Se Schmidt on 10-09-2024 Glucose [Mass/Vol] 131 mg/dL High 70-99 [facility] Serum or plasma calcium josué urement (mass/volume)Ordered By: Se Schmidt on 10-09-2024 Calcium [Mass/Vol] 8.8 mg/dL 7.6-11.0 [facility] Serum or plasma urea nitroge n measurement (mass/volume)Ordered By: Se Schmidt on 10-09-2024 Urea nitrogen [Mass/Vol] 14 mg/dL 4-19 [facility] Sodium levelOrdered By: Se Schmidt on 10-09-2024 Sodium [Moles/Vol] 134 mmol/L 133-145 [facility] Spine Cervical without Contr ason 10-09-2024 Spine Cervical without Contras [facility] Imaging Services [address] [place], [place] [address] Spine Cervical without Contras MR#: [id number] Acct: [id number] Name: COLETTE RICHARDSON Rep #: [id number] : 1935 F 89 From: Gonzalo Schmidt MD PCP: Dr. Melo Monzon MD Status: REG ER Study: Spine Cervical without Contras Date of Exam: 0 10/09/24 Exam# [id number] Ordering Dr: Se Schmidt DO EXAM: CT [...] changes cervical spine as described. Reading Location: [facility] CC: Dr. Melo Monzon MD; Dr. Se Schmidt DO Straightener And Aligner: Signed Normal [facility] White blood cell (WBC) count Ordered By: Se Schmidt on 10-09-2024 WBC (Bld) [#/Vol] 5.5 10*3/uL 4.4-11.0 [facility] International normalized rat io (INR) calculationOrdered By: Melo Monzon on 09-09-2024 INR Coag (Bld) [Relative time] 2.5 {INR} [facility] Prothrombin timeOrdered By: Melo Monzon on 09-09-2024 PT Coag (PPP) [Time] 27.6 s High 11.7-14.9 [facility] International normalized rat io (INR) calculationOrdered By: Melo Monzon on 08-12-2024 INR Coag (Bld) [Relative time] 2.5 {INR} [facility] Prothrombin timeOrdered By: Melo Monzon on 08-12-2024 PT Coag (PPP) [Time] 27.8 s High 11.7-14.9 [facility] International normalized rat io (INR) calculationOrdered By: Melo Monzon on 07-29-2024 INR Coag (Bld) [Relative time] 2.8 {INR} [facility] Prothrombin timeOrdered By: Melo Monzon on 07-29-2024 PT Coag (PPP) [Time] 30.2 s High 11.7-14.9 [facility] INR Coag (BldC) [Relative ti me]Ordered By: Melo Monzon on 07-25-2024 INR Coag (Bld) [Relative time] 2.2 {INR} [facility] Comment on above: Critical Value > 4.0 International normalized rat io (INR) measurement by fingerstickOrdered By: Melo Monzon on 07-25-2024 INR Coag (BldC) [Relative time] 2.2 [facility] Comment on above: Critical Value > 4.0 PT Coag (Bld) [Time]Ordered By: Melo Monzon on 07-25-2024 Bedside Prothrombin Time 24.3 SEC High 11.7-14.9 [facility] Whole blood prothrombin time Ordered By: Melo Monzon on 07-25-2024 PT Coag (Bld) [Time] 24.3 s High 11.7-14.9 [facility] INR Coag (BldC) [Relative ti me]Ordered By: Melo Monzon on 07-24-2024 INR Coag (Bld) [Relative time] 2.1 {INR} [facility] Comment on above: Critical Value > 4.0 International normalized rat io (INR) measurement by fingerstickOrdered By: Melo Monzon on 07-24-2024 INR Coag (BldC) [Relative time] 2.1 [facility] Comment on above: Critical Value > 4.0 PT Coag (Bld) [Time]Ordered By: Melo Monzon on 07-24-2024 Bedside Prothrombin Time 23.3 SEC High 11.7-14.9 [facility] Whole blood prothrombin time Ordered By: Melo Monzon on 07-24-2024 PT Coag (Bld) [Time] 23.3 s High 11.7-14.9 [facility] International normalized rat io (INR) calculationOrdered By: Melo Monzon on 2024 INR Coag (Bld) [Relative time] 1.9 {INR} [facility] Prothrombin timeOrdered By: Melo Monzon on 2024 PT Coag (PPP) [Time] 22.5 s High 11.7-14.9 [facility] International normalized rat io (INR) calculationOrdered By: Melo Monzon on 07-18-2024 INR Coag (Bld) [Relative time] 2.2 {INR} [facility] Prothrombin timeOrdered By: Melo Monzon on 07-18-2024 PT Coag (PPP) [Time] 25.3 s High 11.7-14.9 [facility] [place] INR Coag (BldC) [Relative ti me]Ordered By: Melo Monzon on 07-17-2024 INR Coag (Bld) [Relative time] 1.6 {INR} [facility] Comment on above: Critical Value > 4.0 International normalized rat io (INR) measurement by fingerstickOrdered By: Melo Monzon on 07-17-2024 INR Coag (BldC) [Relative time] 1.6 [facility] Comment on above: Critical Value > 4.0 PT Coag (Bld) [Time]Ordered By: Melo Monzon on 07-17-2024 Bedside Prothrombin Time 18.3 SEC High 11.7-14.9 [facility] Whole blood prothrombin time Ordered By: Melo Monzon on 07-17-2024 PT Coag (Bld) [Time] 18.3 s High 11.7-14.9 [facility] [place] International normalized rat io (INR) calculationOrdered By: Melo Monzon on 07-16-2024 INR Coag (Bld) [Relative time] 1.9 {INR} [facility] Prothrombin timeOrdered By: Melo Monzon on 07-16-2024 PT Coag (PPP) [Time] 22.3 s High 11.7-14.9 [facility] [place] International normalized rat io (INR) calculationOrdered By: Melo Monzon on 07-15-2024 INR Coag (Bld) [Relative time] 1.8 {INR} [facility] Prothrombin timeOrdered By: Melo Monzon on 07-15-2024 PT Coag (PPP) [Time] 21.5 s High 11.7-14.9 [facility] [place] INR Coag (BldC) [Relative ti me]Ordered By: Melo Monzon on 07-12-2024 INR Coag (Bld) [Relative time] 1.7 {INR} [facility] Comment on above: Critical Value > 4.0 International normalized rat io (INR) measurement by fingerstickOrdered By: Melo Monzon on 07-12-2024 INR Coag (BldC) [Relative time] 1.7 [facility] Comment on above: Critical Value > 4.0 PT Coag (Bld) [Time]Ordered By: Melo Monzon on 07-12-2024 Bedside Prothrombin Time 18.8 SEC High 11.7-14.9 [facility] Whole blood prothrombin time Ordered By: Melo Monzon on 07-12-2024 PT Coag (Bld) [Time] 18.8 s High 11.7-14.9 [facility] [place] International normalized rat io (INR) calculationOrdered By: Melo Monzon on 07-09-2024 INR Coag (Bld) [Relative time] 2.1 {INR} [facility] Prothrombin timeOrdered By: Melo Monzon on 07-09-2024 PT Coag (PPP) [Time] 23.8 s High 11.7-14.9 [facility] [place] INR Coag (BldC) [Relative ti me]Ordered By: Melo Monzon on 07-08-2024 INR Coag (Bld) [Relative time] 1.9 {INR} [facility] Comment on above: Critical Value > 4.0 International normalized rat io (INR) measurement by fingerstickOrdered By: Melo Monzon on 07-08-2024 INR Coag (BldC) [Relative time] 1.9 [facility] Comment on above: Critical Value > 4.0 PT Coag (Bld) [Time]Ordered By: Melo Monzon on 07-08-2024 Bedside Prothrombin Time 21.2 SEC High 11.7-14.9 [facility] Whole blood prothrombin time Ordered By: Melo Monzon on 07-08-2024 PT Coag (Bld) [Time] 21.2 s High 11.7-14.9 [facility] [place] INR Coag (BldC) [Relative ti me]Ordered By: Melo Monzon on 07-05-2024 INR Coag (Bld) [Relative time] 1.2 {INR} [facility] Comment on above: Critical Value > 4.0 International normalized rat io (INR) measurement by fingerstickOrdered By: Melo Monzon on 07-05-2024 INR Coag (BldC) [Relative time] 1.2 [facility] Comment on above: Critical Value > 4.0 PT Coag (Bld) [Time]Ordered By: Melo Monzon on 07-05-2024 Bedside Prothrombin Time 14.0 SEC 11.7-14.9 [facility] Whole blood prothrombin time Ordered By: Melo Monzon on 07-05-2024 PT Coag (Bld) [Time] 14.0 s 11.7-14.9 [facility] [place] International normalized rat io (INR) calculationOrdered By: Melo Monzon on 07-04-2024 INR Coag (Bld) [Relative time] 1.3 {INR} [facility] Prothrombin timeOrdered By: Melo Monzon on 07-04-2024 PT Coag (PPP) [Time] 16.4 s High 11.7-14.9 [facility] [place] INR Coag (BldC) [Relative ti me]Ordered By: Melo Monzon on 07-03-2024 INR Coag (Bld) [Relative time] 1.1 {INR} [facility] Comment on above: Critical Value > 4.0 International normalized rat io (INR) measurement by fingerstickOrdered By: Melo Monzon on 07-03-2024 INR Coag (BldC) [Relative time] 1.1 [facility] Comment on above: Critical Value > 4.0 PT Coag (Bld) [Time]Ordered By: Melo Monzon on 07-03-2024 Bedside Prothrombin Time 13.5 SEC 11.7-14.9 [facility] Whole blood prothrombin time Ordered By: Melo Monzon on 07-03-2024 PT Coag (Bld) [Time] 13.5 s 11.7-14.9 [facility] [place] International normalized rat io (INR) calculationOrdered By: Melo Monzon on 07-02-2024 INR Coag (Bld) [Relative time] 1.1 {INR} [facility] Prothrombin timeOrdered By: Melo Monzon on 07-02-2024 PT Coag (PPP) [Time] 14.7 s 11.7-14.9 [facility] [place] INR Coag (BldC) [Relative ti me]Ordered By: Melo Monzon on 07-01-2024 INR Coag (Bld) [Relative time] 1.2 {INR} [facility] Comment on above: Critical Value > 4.0 International normalized rat io (INR) measurement by fingerstickOrdered By: Melo Monzon on 07-01-2024 INR Coag (BldC) [Relative time] 1.2 [facility] Comment on above: Critical Value > 4.0 PT Coag (Bld) [Time]Ordered By: Melo Monzon on 07-01-2024 Bedside Prothrombin Time 13.8 SEC 11.7-14.9 [facility] Whole blood prothrombin time Ordered By: Melo Monzon on 07-01-2024 PT Coag (Bld) [Time] 13.8 s 11.7-14.9 [facility] [place] Absolute lymphocyte countOrd ered By: Melo Monzon on 06-17-2024 Lymphocytes Auto (Unsp spec) [#/Vol] 1.14 10*3/uL 0.83-4.51 [facility] Absolute neutrophil countOrd ered By: Melo Monzon on 06-17-2024 Neutrophils (Bld) [#/Vol] 3.1 10*3/uL 2.0-7.7 [facility] Albumin to globulin ratioOrd ered By: Melo Monzon on 06-17-2024 Albumin/Globulin [Mass ratio] 1.0 {ratio} 0.9-2.4 [facility] Automated lymphocyte count a s percentage of total leukocytesOrdered By: Melo Monzon on 06-17-2024 Lymphocytes/100 WBC Auto (Unsp spec) 23.9 % 19-41 [facility] Basophil percentageOrdered B y: Melo Monzon on 06-17-2024 Basophils/100 WBC (Bld) 0.6 % 0-[address] [facility] Bilirubin, totalOrdered By: Melo Monzon on 06-17-2024 Bilirubin [Mass/Vol] 0.50 mg/dL 0.20-1.00 [facility] [place] Comment on above: For patients on eltr ombopag therapy, use of Dimension [place] TBIL is not recommended. Blood urea nitrogen (BUN)/cr eatinine ratioOrdered By: Melo Monzon on 06-17-2024 Urea nitrogen/Creatinine [Mass ratio] 20.8 mg/mg High 10- [facility] Carbon dioxide measurementOr dered By: Melo Monzon on 06-17-2024 CO2 [Moles/Vol] 29.0 mmol/L 21.0-32.0 [facility] Chloride measurementOrdered By: Melo Monzon on 06-17-2024 Chloride [Moles/Vol] 107 mmol/L 98-107 [facility] [place] Eosinophil percentageOrdered By: Melo Monzon on 06-17-2024 Eosinophils/100 WBC (Bld) 2.5 % 0-5 [facility] Erythrocyte distribution wid th ratioOrdered By: Melo Monzon on 06-17-2024 Erythrocyte distribution width (RBC) [Ratio] 12.5 % 11.6-14.6 [facility] Erythrocyte distribution wid th standard deviationOrdered By: Melo Monzon on 06-17-2024 Erythrocyte distribution width (RBC) [Entitic vol] 43.2 fL 35.1-43.9 [facility] Erythrocyte distribution width (RBC) [Ratio] 43.2 fl 35.1-43.9 [facility] Estimated glomerular filtrat ion rate (GFR) AmericanOrdered By: Melo Monzon on 06-17-2024 Estimated GFR (MDRD) Amer 116 mL/min >60 [facility] Comment on above: GFR Calc Glomerular filtration rate ( GFR) estimationOrdered By: Melo Monzon on 06-17-2024 Estimated GFR (MDRD) Non-Af Amer 96 mL/min >60 [facility] Comment on above: Non- GFR Calc GFR/1.73 sq M.predicted among non-blacks MDRD (S/P/Bld) [Vol rate/Area] 96 mL/min/{1.73_m2} >60 [facility] Comment on above: Non- GFR Calc Glucose measurementOrdered B y: Melo Monzon on 06-17-2024 Glucose [Mass/Vol] 113 mg/dL High 74-106 [facility] Comment on above: Fasting Glucose resu lt from 100 to 125 mg/dL suggests IMPAIRED HOMEOSTASIS per A.D.A. criteria. Hematocrit Auto (Bld) [Volum e fraction]Ordered By: Melo Monzon on 06-17-2024 Hematocrit (Bld) [Volume fraction] 37.9 % 37-47 [facility] Hemoglobin measurementOrdere d By: Melo Monzon on 06-17-2024 Hemoglobin (Bld) [Mass/Vol] 12.1 g/dL 12.0-15.0 [facility] Immature granulocytes/100 WB C Auto (Bld)Ordered By: Melo Monzon on 06-17-2024 Immature granulocytes/100 WBC (Bld) 0.200 % 0.0-0.9 [facility] Comment on above: IG% - Immature Granu locytes (promyelocytes, myelocytes and metamyelocytes) > 1% indicates that a LEFT SHIFT is Present. Laboratory - Chemistry and C hemistry - challengeOrdered By: Melo Monzon on 06-17-2024 AST [Catalytic activity/Vol] 16 U/L 15-37 [facility] Lymphocytes Auto (Unsp spec) [#/Vol]Ordered By: Melo Monzon on 06-17-2024 Lymphocytes (Bld) [#/Vol] 1.14 10*3/uL 0.83-4.51 [facility] Lymphocytes/100 WBC Auto (Un sp spec)Ordered By: Melo Monzon on 06-17-2024 Lymphocytes/100 WBC (Bld) 23.9 % 19-41 [facility] MCV (mean corpuscular volume ) determinationOrdered By: Melo Monzon on 06-17-2024 MCV (RBC) [Entitic vol] 94.0 fL 81-99 [facility] Mean corpuscular hemoglobin (MCH) determinationOrdered By: Melo Monzon on 06-17-2024 MCH (RBC) [Entitic mass] 30.0 pg 27.0-32.0 [facility] Mean corpuscular hemoglobin concentration (MCHC) determinationOrdered By: Melo Monzon on 06-17-2024 MCHC (RBC) [Mass/Vol] 31.9 g/dL Low 32-36 [facility] Mean platelet volume determi nationOrdered By: Melo Monzon on 06-17-2024 Platelet mean volume (Bld) [Entitic vol] 10.1 fL 6.2-12.0 [facility] Monocyte percentageOrdered B y: Melo Monzon on 06-17-2024 Monocytes/100 WBC (Bld) 8.0 % 0-10 [facility] Neutrophil percentageOrdered By: Melo Monzon on 06-17-2024 Neutrophils/100 WBC (Bld) 64.8 % 47-70 [facility] Nucleated red blood cell per centageOrdered By: Melo Monzon on 06-17-2024 Nucleated RBC/100 WBC (Bld) [Ratio] 0 % 0-5 [facility] Platelet countOrdered By: Bennie Monzon on 06-17-2024 Platelets (Bld) [#/Vol] 188 10*3/uL 150-450 [facility] Potassium measurementOrdered By: Melo Monzon on 06-17-2024 Potassium [Moles/Vol] 4.3 mmol/L 3.5-5.1 [facility] RBC Auto (Bld) [#/Vol]Ordere d By: Melo Monzon on 06-17-2024 RBC (Bld) [#/Vol] 4.03 10*6/uL Low 4.2-5.4 [facility] Serum anion gap measurementO rdered By: Melo Monzon on 06-17-2024 Anion gap [Moles/Vol] 3 mmol/L Low 5-15 [facility] Serum globulin measurementOr dered By: Melo Monzon on 06-17-2024 Globulin (S) [Mass/Vol] 3.2 g/dL 2.2-4.2 [facility] Serum or plasma alanine dudley otransferase (ALT) measurementOrdered By: Melo Monzon on 06-17-2024 ALT [Catalytic activity/Vol] 7 U/L Low 13-56 [facility] Serum or plasma albumin josué urement (mass/volume)Ordered By: Melo Monzon on 06-17-2024 Albumin [Mass/Vol] 3.1 g/dL Low 3.2-5.0 [facility] Serum or plasma alkaline juventino sphatase measurementOrdered By: Melo Monzon on 06-17-2024 ALP [Catalytic activity/Vol] 56 U/L 45-117 [facility] Serum or plasma calcium josué urement (mass/volume)Ordered By: Melo Monzon on 06-17-2024 Calcium [Mass/Vol] 8.9 mg/dL 8.5-10.1 [facility] Serum or plasma creatinine m easurement (mass/volume)Ordered By: Melo Monzon on 06-17-2024 Creatinine [Mass/Vol] 0.62 mg/dL 0.55-1.02 [facility] Comment on above: The validity of the calculated GFR & GFRAA in patients over 70 years has not been determined. Clinical correlation is essential. Serum or plasma urea nitroge n measurement (mass/volume)Ordered By: Melo Monzon on 06-17-2024 Urea nitrogen [Mass/Vol] 13 mg/dL 7-18 [facility] Sodium levelOrdered By: Neo Monzon on 06-17-2024 Sodium [Moles/Vol] 140 mmol/L 136-145 [facility] Total proteinOrdered By: Enoc Monzon on 06-17-2024 Protein [Mass/Vol] 6.3 g/dL Low 6.4-8.2 [facility] White blood cell (WBC) count Ordered By: Melo Monzon on 06-17-2024 WBC (Bld) [#/Vol] 4.8 10*3/uL 4.4-11.0 [facility] Bilirubin Test strip Ql (U)O rdered By: Melo Monzon on 06-16-2024 Bilirubin Ql (U) Negative Negative [facility] Epithelial cells.squamous LM Ql (Urine sed)Ordered By: Melo Monzon on 06-16-2024 Epithelial cells.squamous LM.HPF (Urine sed) [#/Area] 0 /[HPF] 5-10 [facility] Glucose Ql (U)Ordered By: Bennie Monzon on 06-16-2024 Urine Glucose (UA) Normal mg/dl Normal [facility] [place] Ketones Test strip Ql (U)Ord ered By: Melo Monzon on 06-16-2024 Ketones Ql (U) Negative Negative [facility] Microscopic analysis of urin e for red blood cells (RBC)Ordered By: Melo Monzon on 06-16-2024 Microscopic analysis of urine for red blood cells (RBC) 0 SEEN /hpf 0-5 [facility] Urine RBC 0 SEEN /hpf 0-5 [facility] Mucus LM Ql (Urine sed)Order ed By: Melo Monzon on 06-16-2024 Mucus Ql (Urine sed) 0 SEEN /hpf [facility] Nitrite Test strip Ql (U)Ord ered By: Melo Monzon on 06-16-2024 Nitrite Ql (U) Negative Negative [facility] Protein Test strip Ql (U)Ord ered By: Melo Monzon on 06-16-2024 Protein Ql (U) Negative Negative [facility] Squamous epithelial cells de tection in urine sediment by light microscopyOrdered By: Melo Monzon on 06-16-2024 Epithelial cells.squamous LM Ql (Urine sed) 0 SEEN /hpf 5-10 [facility] Urine blood detectionOrdered By: Melo Monzon on 06-16-2024 Urine Occult Blood Negative Negative [facility] Urine clarityOrdered By: Enoc Monzon on 06-16-2024 Clarity (U) Clear Clear [facility] Urine color determinationOrd ered By: Melo Monzon on 06-16-2024 Color (U) Straw Yellow [facility] Urine cultureOrdered By: Enoc Monzon on 06-16-2024 Bacteria identified Cx Nom (U) Culture exhibits no growth. [facility] Bacteria identified Cx Nom (U) Culture exhibits no growth. [facility] Urine glucose detectionOrder ed By: Melo Monzon on 06-16-2024 Glucose Ql (U) Normal mg/dl Normal [facility] Urine leukocyte esterase det ection by dipstickOrdered By: Melo Monzon on 06-16-2024 Leukocyte esterase Test strip Ql (U) Negative Negative [facility] Urine pHOrdered By: Melo flores on 06-16-2024 pH (U) 7.0 [pH] 5.0 - 8.0 [facility] Urine sediment bacteria coun t by microscopy (number/high power field)Ordered By: Melo Monzon on 06-16-2024 Bacteria LM.HPF (Urine sed) [#/Area] 0 /[HPF] None Seen [facility] Urine specific gravity measu rementOrdered By: Melo Monzon on 06-16-2024 Specific gravity (U) [Rel density] 1.005 1.002-1.030 [facility] Urine urobilinogen measureme ntOrdered By: Melo Monzon on 06-16-2024 Urobilinogen Ql (U) Normal mg/dl Normal [facility] Urobilinogen Ql (U)Ordered B y: Melo Monzon on 06-16-2024 Urine Urobilinogen Normal mg/dl Normal [facility] [place] White blood cell countOrdere d By: Melo Monzon on 06-16-2024 Urine WBC 0 SEEN /hpf 0-5 [facility] White blood cell count 0 SEEN /hpf 0-[address] [facility] Blood urea nitrogen (BUN)/cr eatinine ratioOrdered By: Melo Monzon on 04-04-2024 Urea nitrogen/Creatinine [Mass ratio] 20.8 mg/mg High 10-20 [facility] Carbon dioxide measurementOr dered By: Melo Monzon on 04-04-2024 CO2 [Moles/Vol] 29.0 mmol/L 21.0-32.0 [facility] Chloride measurementOrdered By: Melo Monzon on 04-04-2024 Chloride [Moles/Vol] 105 mmol/L 98-107 [facility] [place] Direct serum free thyroxine (FT4) measurementOrdered By: Melo Monzon on 04-04-2024 Free T4 [Mass/Vol] 0.92 ng/dL 0.76-1.46 [facility] Erythrocyte distribution wid th ratioOrdered By: Melo Monzon on 04-04-2024 Erythrocyte distribution width (RBC) [Ratio] 12.8 % 11.6-14.6 [facility] Erythrocyte distribution wid th standard deviationOrdered By: Melo Monzon on 04-04-2024 Erythrocyte distribution width (RBC) [Entitic vol] 44.6 fL High 35.1-43.9 [facility] Estimated glomerular filtrat ion rate (GFR) AmericanOrdered By: Meol Monzon on 04-04-2024 Estimated GFR (MDRD) Amer 116 mL/min >60 [facility] Comment on above: GFR Calc Glomerular filtration rate ( GFR) estimationOrdered By: Melo Monzon on 04-04-2024 Estimated GFR (MDRD) Non-Af Amer 96 mL/min >60 [facility] Comment on above: Non- GFR Calc Glucose measurementOrdered B y: Melo Monzon on 04-04-2024 Glucose [Mass/Vol] 102 mg/dL 74-106 [facility] Comment on above: Fasting Glucose resu lt from 100 to 125 mg/dL suggests IMPAIRED HOMEOSTASIS per A.D.A. criteria. Hematocrit Auto (Bld) [Volum e fraction]Ordered By: Melo Monzon on 04-04-2024 Hematocrit (Bld) [Volume fraction] 37.1 % 37-47 [facility] Hemoglobin measurementOrdere d By: Melo Monzon on 04-04-2024 Hemoglobin (Bld) [Mass/Vol] 11.8 g/dL Low 12.0-15.0 [facility] MCV (mean corpuscular volume ) determinationOrdered By: Melo Monzon on 04-04-2024 MCV (RBC) [Entitic vol] 94.9 fL 81-[address] [facility] Mean corpuscular hemoglobin (MCH) determinationOrdered By: Melo Monzon on 04-04-2024 MCH (RBC) [Entitic mass] 30.2 pg 27.0-32.0 [facility] Mean corpuscular hemoglobin concentration (MCHC) determinationOrdered By: Melo Monzon on 04-04-2024 MCHC (RBC) [Mass/Vol] 31.8 g/dL Low 32-36 [facility] Mean platelet volume determi nationOrdered By: Melo Monzon on 04-04-2024 Platelet mean volume (Bld) [Entitic vol] 9.4 fL 6.2-12.0 [facility] Platelet countOrdered By: Bennie Monzon on 04-04-2024 Platelets (Bld) [#/Vol] 294 10*3/uL 150-450 [facility] Potassium measurementOrdered By: Melo Monzon on 04-04-2024 Potassium [Moles/Vol] 4.0 mmol/L 3.5-5.1 [facility] RBC Auto (Bld) [#/Vol]Ordere d By: Melo Monzon on 04-04-2024 RBC (Bld) [#/Vol] 3.91 10*6/uL Low 4.2-5.4 [facility] Serum anion gap measurementO rdered By: Melo Monzon on 04-04-2024 Anion gap [Moles/Vol] 3 mmol/L Low 5-15 [facility] Serum or plasma calcium josué urement (mass/volume)Ordered By: Melo Monzon on 04-04-2024 Calcium [Mass/Vol] 8.7 mg/dL 8.5-10.1 [facility] Serum or plasma creatinine m easurement (mass/volume)Ordered By: Melo Monzon on 04-04-2024 Creatinine [Mass/Vol] 0.62 mg/dL 0.55-1.02 [facility] Comment on above: The validity of the calculated GFR & GFRAA in patients over 70 years has not been determined. Clinical correlation is essential. Serum or plasma urea nitroge n measurement (mass/volume)Ordered By: Melo Monzon on 04-04-2024 Urea nitrogen [Mass/Vol] 13 mg/dL 7-18 [facility] Serum prealbumin measurement by immunoassayOrdered By: Melo Monzon on 04-04-2024 Prealbumin [Mass/Vol] 16 mg/dL - [facility] Comment on above: Performed at: [address] [id number] Director: Rolando Bocanegra PhD, Phone: [phone] Sodium levelOrdered By: Neo Monzon on 04-04-2024 Sodium [Moles/Vol] 137 mmol/L 136-145 [facility] TSH QnOrdered By: Melo wyatt on 04-04-2024 Thyroid Stimulating Hormone (TSH) 1.710 uIU/mL 0.358-3.740 [facility] White blood cell (WBC) count Ordered By: Melo Monzon on 04-04-2024 WBC (Bld) [#/Vol] 4.9 10*3/uL 4.4-11.0 [facility] Laboratory - CoagulationOrde red By: Joao Simon on 09-11-2023 INR Coag (Bld) [Relative time] 2.3 {INR} [facility] PT Coag (PPP) [Time] 25.2 s 11.7-14.9 [facility] [place] Capillary blood internationa l normalized ratio (INR)Ordered By: Joao Simon on 08-30-2023 INR Coag (BldC) [Relative time] 1.9 [facility] Comment on above: Critical Value > 4.0 Whole blood prothrombin time Ordered By: Joao Simon on 08-30-2023 PT Coag (Bld) [Time] 19.9 s 11.7-14.9 [facility] [place] Laboratory - CoagulationOrde red By: Joao Simon on 08-09-2023 INR Coag (Bld) [Relative time] 2.7 {INR} [facility] PT Coag (PPP) [Time] 28.2 s 11.7-14.9 [facility] [place] Laboratory - CoagulationOrde red By: Joao Simon on 07-26-2023 INR Coag (Bld) [Relative time] 2.7 {INR} [facility] PT Coag (PPP) [Time] 28.2 s 11.7-14.9 [facility] [place] Laboratory - CoagulationOrde red By: Joao Simon on 07-11-2023 INR Coag (Bld) [Relative time] 2.8 {INR} [facility] PT Coag (PPP) [Time] 30.2 s 11.7-14.9 [facility] [place] Capillary blood internationa l normalized ratio (INR)Ordered By: Joao Simon on 06-28-2023 INR Coag (BldC) [Relative time] 2.6 [facility] Comment on above: Critical Value > 4.0 Whole blood prothrombin time Ordered By: Joao Simon on 06-28-2023 PT Coag (Bld) [Time] 27.9 s 11.7-14.9 [facility] [place] Capillary blood internationa l normalized ratio (INR)Ordered By: Joao Simon on 06-14-2023 INR Coag (BldC) [Relative time] 1.8 [facility] Comment on above: Critical Value > 4.0 Whole blood prothrombin time Ordered By: Joao Simon on 06-14-2023 PT Coag (Bld) [Time] 19.7 s 11.7-14.9 [facility] [place] Laboratory - CoagulationOrde red By: Joao Simon on 05-31-2023 INR Coag (Bld) [Relative time] 2.5 {INR} [facility] Comment on above: Critical Value > 4.0 Whole blood prothrombin time Ordered By: Joao Simon on 05-31-2023 PT Coag (Bld) [Time] 26.7 s 11.7-14.9 [facility] [place] Laboratory - CoagulationOrde red By: Joao Simon on 05-23-2023 INR Coag (Bld) [Relative time] 3.4 {INR} [facility] Comment on above: Critical Value > 4.0 Whole blood prothrombin time Ordered By: Joao Simon on 05-23-2023 PT Coag (Bld) [Time] 36.3 s 11.7-14.9 [facility] [place] Laboratory - CoagulationOrde red By: Joao Simon on 05-08-2023 INR Coag (Bld) [Relative time] 2.4 {INR} [facility] Comment on above: Critical Value > 4.0 Whole blood prothrombin time Ordered By: Joao Simon on 05-08-2023 PT Coag (Bld) [Time] 26.0 s 11.7-14.9 [facility] [place] Laboratory - CoagulationOrde red By: Joao Simon on 04-06-2023 INR Coag (Bld) [Relative time] 2.8 {INR} [facility] Comment on above: Critical Value > 4.0 Whole blood prothrombin time Ordered By: Joao Simon on 04-06-2023 PT Coag (Bld) [Time] 29.8 s 11.7-14.9 [facility] [place] Basophil percentageOrdered B y: Joao Simon on 03-06-2023 Cholesterol [Mass/Vol] 113 mg/dL <[address] [facility] Comment on above: <200 mg/dL Desirable 200-240 mg/dL Borderline >240 mg/dL High Risk Triglyceride [Mass/Vol] 82 mg/dL <[address] [facility] Comment on above: The drugs N-Acetylcy steine and Metamizole may falsely depress this assay.Serum Triglycerides Reference Interval Normal <150 mg/dL Borderline high 150 - 199 mg/dL High 200 - 499 mg/dL Very High > or = 500 mg/dL WBC (Bld) [#/Vol] 5.8 10*3/uL 4.4-11.0 [facility] Blood erythrocytes count (nu mber/volume)Ordered By: Joao Simon on 03-06-2023 RBC (Bld) [#/Vol] 3.97 10*6/uL 4.2-5.4 [facility] Blood hemoglobin measurement (mass/volume)Ordered By: Joao Simon on 03-06-2023 Hemoglobin (Bld) [Mass/Vol] 12.1 g/dL 12.0-15.0 [facility] Blood platelet mean volumeOr dered By: Joao Simon on 03-06-2023 Platelet mean volume (Bld) [Entitic vol] 10.9 fL 6.2-12.0 [facility] Determination of erythrocyte mean corpuscular volume (MCV)Ordered By: Joao Simon on 03-06-2023 MCV (RBC) [Entitic vol] 96.5 fL 81-[address] [facility] Hematocrit Auto (Bld) [Volum e fraction]Ordered By: Joao Simon on 03-06-2023 Hematocrit (Bld) [Volume fraction] 38.3 % 37-47 [facility] Laboratory - Hematology and Cell countsOrdered By: Joao Simon on 03-06-2023 Erythrocyte distribution width (RBC) [Entitic vol] 44.8 fL 35.1-43.9 [facility] Erythrocyte distribution width (RBC) [Ratio] 12.7 % 11.6-14.6 [facility] MCH (RBC) [Entitic mass] 30.5 pg 27.0-32.0 [facility] MCHC Auto (RBC) [Mass/Vol]Or dered By: Joao Simon on 03-06-2023 MCHC (RBC) [Mass/Vol] 31.6 g/dL 32-36 [facility] No Panel InformationOrdered By: Joao Simon on 03-06-2023 Thyroid Stimulating Hormone (TSH) 1.71 uIU/mL 0.358-3.74 [facility] Platelets bldOrdered By: Brittany Simon on 03-06-2023 Platelets (Bld) [#/Vol] 195 10*3/uL 150-450 [facility] Serum or plasma cholesterol in HDL measurement (mass/volume)Ordered By: Joao Simon on 03-06-2023 Cholesterol in HDL [Mass/Vol] 44 mg/dL >40 [facility] Comment on above: The drugs N-Acetylcy steine and Metamizole may falsely depress this assay. Reference Range HDL <40 mg/dL Low HDL Cholesterol HDL >or= 60 mg/dL High HDL Cholesterol Serum or plasma cholesterol in VLDL measurement (mass/volume)Ordered By: Joao Simon on 03-06-2023 Cholesterol in VLDL [Mass/Vol] 16 mg/dL 5-40 [facility] Serum or plasma low density lipoprotein (LDL) cholesterol measurement (mass/volume)Ordered By: Joao Simon on 03-06-2023 Cholesterol in LDL [Mass/Vol] 53 mg/dL 0-130 [facility] - CoagulationOrde red By: Joao Simon on 02-21-2023 INR Coag (Bld) [Relative time] 3.1 {INR} [facility] Comment on above: Critical Value > 4.0 Whole blood prothrombin time Ordered By: Joao Simon on 02-21-2023 PT Coag (Bld) [Time] 32.7 s 11.7-14.9 [facility] Laboratory - CoagulationOrde red By: Joao Simon on 02-14-2023 INR Coag (Bld) [Relative time] 1.9 {INR} [facility] Comment on above: Critical Value > 4.0 Whole blood prothrombin time Ordered By: Joao Simon on 02-14-2023 PT Coag (Bld) [Time] 21.2 s 11.7-14.9 [facility] INR in Blood by Coagulation assayOrdered By: Joao Simon on 02-07-2023 INR Coag (Bld) [Relative time] 4.3 {INR} [facility] Laboratory - Chemistry and C hemistry - challengeOrdered By: Joao Simon on 02-07-2023 Cobalamin (Vitamin B12) [Mass/Vol] 243 pg/mL 211-911 [facility] - CoagulationOrde red By: Joao Simon on 02-07-2023 PT Coag (PPP) [Time] 41.7 s 11.7-14.9 [facility] Absolute lymphocyte countOrd ered By: Matt Coy on 02-02-2023 Lymphocytes Auto (Unsp spec) [#/Vol] 1.73 10*3/uL 0.83-4.51 [facility] Basophil percentageOrdered B y: Matt Coy on 02-02-2023 Basophil percentage 0-5 SEEN /hpf 0-[address] [facility] Basophils/100 WBC (Bld) 0.6 % 0-1 [facility] Bilirubin [Mass/Vol] 0.30 mg/dL 0.20-1.00 [facility] Comment on above: For patients on eltr ombopag therapy, use of Dimension [place] TBIL is not recommended. Chloride [Moles/Vol] 104 mmol/L 98-107 [facility] Eosinophils/100 WBC (Bld) 1.7 % 0-5 [facility] Glucose [Mass/Vol] 133 mg/dL 74-106 [facility] Comment on above: Fasting Glucose resu lt greater than or equal to 126 mg/dL suggests DIABETES MELLITUS per A.D.A. criteria. Neutrophils (Bld) [#/Vol] 4.6 10*3/uL 2.0-7.7 [facility] Neutrophils/100 WBC (Bld) 65.1 % 47-70 [facility] Potassium [Moles/Vol] 4.5 mmol/L 3.5-5.1 [facility] Protein [Mass/Vol] 6.9 g/dL 6.4-8.2 [facility] Sodium [Moles/Vol] 137 mmol/L 136-145 [facility] WBC (Bld) [#/Vol] 7.1 10*3/uL 4.4-11.0 [facility] Bilirubin Test strip Ql (U)O rdered By: Matt Coy on 02-02-2023 Bilirubin Ql (U) Negative Negative [facility] Blood erythrocytes count (nu mber/volume)Ordered By: Matt Coy on 02-02-2023 RBC (Bld) [#/Vol] 4.68 10*6/uL 4.2-5.4 [facility] Blood hemoglobin measurement (mass/volume)Ordered By: Matt Coy on 02-02-2023 Hemoglobin (Bld) [Mass/Vol] 14.3 g/dL 12.0-15.0 [facility] Blood lymphocytes/100 leukoc ytesOrdered By: Matt Coy on 02-02-2023 Lymphocytes/100 WBC (Bld) 24.4 % 19-41 [facility] Blood monocytes/100 leukocyt esOrdered By: Matt Coy on 02-02-2023 Monocytes/100 WBC (Bld) 7.9 % 0-[address] [facility] Blood platelet mean volumeOr dered By: Matt Coy on 02-02-2023 Platelet mean volume (Bld) [Entitic vol] 10.3 fL 6.2-12.0 [facility] Determination of erythrocyte mean corpuscular volume (MCV)Ordered By: Matt Coy on 02-02-2023 MCV (RBC) [Entitic vol] 94.0 fL 81-[address] [facility] Hematocrit Auto (Bld) [Volum e fraction]Ordered By: Mtat Coy on 02-02-2023 Hematocrit (Bld) [Volume fraction] 44.0 % 37-47 [facility] INR in Blood by Coagulation assayOrdered By: Matt Coy on 02-02-2023 INR Coag (Bld) [Relative time] 3.5 {INR} [facility] Ketones Test strip Ql (U)Ord ered By: Matt Coy on 02-02-2023 Ketones Ql (U) Negative Negative [facility] Laboratory - Chemistry and C hemistry - challengeOrdered By: Matt Coy on 02-02-2023 ALP [Catalytic activity/Vol] 73 U/L 45-117 [facility] ALT [Catalytic activity/Vol] 15 U/L 13-56 [facility] CO2 [Moles/Vol] 30.0 mmol/L 21.0-32.0 [facility] Globulin (S) [Mass/Vol] 3.7 g/dL 2.2-4.[address] [facility] Lipase [Catalytic activity/Vol] 15 U/L 13-75 [facility] Comment on above: Please note:LIPASE r evised reference range effective 22. New Lipase methodology. Expected to produce lower values than the previous assay method. NEW Reference Range: 13 - 75 U/L Urea nitrogen/Creatinine [Mass ratio] 16.2 mg/mg 10-20 [facility] Laboratory - CoagulationOrde red By: Matt Coy on 02-02-2023 PT Coag (PPP) [Time] 36.0 s 11.7-14.9 [facility] Laboratory - Hematology and Cell countsOrdered By: Matt Coy on 02-02-2023 Erythrocyte distribution width (RBC) [Entitic vol] 42.9 fL 35.1-43.9 [facility] Erythrocyte distribution width (RBC) [Ratio] 12.5 % 11.6-14.6 [facility] Immature granulocytes/100 WBC (Bld) 0.300 % 0.0-0.9 [facility] Comment on above: IG% - Immature Granu locytes (promyelocytes, myelocytes and metamyelocytes) > 1% indicates that a LEFT SHIFT is Present. MCH (RBC) [Entitic mass] 30.6 pg 27.0-32.0 [facility] Nucleated RBC/100 WBC (Bld) [Ratio] 0 % 0-5 [facility] MCHC Auto (RBC) [Mass/Vol]Or dered By: Matt Coy on 02-02-2023 MCHC (RBC) [Mass/Vol] 32.5 g/dL 32-36 [facility] Mucus LM Ql (Urine sed)Order ed By: Matt Coy on 02-02-2023 Mucus Ql (Urine sed) 1+ /hpf [facility] Nitrite Test strip Ql (U)Ord ered By: Matt Coy on 02-02-2023 Nitrite Ql (U) Negative Negative [facility] No Panel InformationOrdered By: Matt Coy on 02-02-2023 Estimated GFR (MDRD) Amer 106 mL/min >60 [facility] Comment on above: GFR Calc Estimated GFR (MDRD) Non-Af Amer 87 mL/min >60 [facility] Comment on above: Non- GFR Calc Platelets bldOrdered By: Macey jules Anneliese on 02-02-2023 Platelets (Bld) [#/Vol] 216 10*3/uL 150-450 [facility] Protein Test strip Ql (U)Ord ered By: Matt Coy on 02-02-2023 Protein Ql (U) Negative Negative [facility] Serum or plasma albumin josué urement (mass/volume)Ordered By: Matt Coy on 02-02-2023 Albumin [Mass/Vol] 3.2 g/dL 3.2-5.0 [facility] Serum or plasma albumin/glob ulin mass ratioOrdered By: Matt Coy on 02-02-2023 Albumin/Globulin [Mass ratio] 0.9 {ratio} 0.9-2.4 [facility] Serum or plasma calcium josué urement (mass/volume)Ordered By: Matt Coy on 02-02-2023 Calcium [Mass/Vol] 8.9 mg/dL 8.5-10.1 [facility] Serum or plasma creatinine m easurement (mass/volume)Ordered By: Matt Coy on 02-02-2023 Creatinine [Mass/Vol] 0.68 mg/dL 0.55-1.02 [facility] Comment on above: The validity of the calculated GFR & GFRAA in patients over 70 years has not been determined. Clinical correlation is essential. Serum or plasma urea nitroge n measurement (mass/volume)Ordered By: Matt Coy on 02-02-2023 Urea nitrogen [Mass/Vol] 11 mg/dL 7-18 [facility] Squamous epithelial cells de tection in urine sediment by light microscopyOrdered By: Matt Coy on 02-02-2023 Epithelial cells.squamous LM Ql (Urine sed) 0 SEEN /hpf 5-10 [facility] Thin prep Papanicolaou smear with manual screeningOrdered By: Matt Coy on 02-02-2023 Thin prep Papanicolaou smear with manual screening 18 U/L 15-37 [facility] Thin prep Papanicolaou smear with manual screening 3 5-15 [facility] Urine blood detectionOrdered By: Matt Coy on 02-02-2023 RBC Ql (U) 25 /ul Negative [facility] RBC Ql (U) 0-5 SEEN /hpf 0-5 [facility] Urine clarityOrdered By: Macey Coy on 02-02-2023 Clarity (U) Clear Clear [facility] Urine color determinationOrd ered By: Matt Coy on 02-02-2023 Color (U) Yellow Yellow [facility] Urine glucose detectionOrder ed By: Matt Coy on 02-02-2023 Glucose Ql (U) Normal mg/dl Normal [facility] Urine leukocyte esterase det ection by dipstickOrdered By: Matt Coy on 02-02-2023 Leukocyte esterase Test strip Ql (U) 25 /ul Negative [facility] Urine pHOrdered By: Matt jacbo on 02-02-2023 pH (U) 6.5 [pH] 5.0 - 8.0 [facility] Urine sediment bacteria coun t by microscopy (number/high power field)Ordered By: Matt Coy on 02-02-2023 Bacteria LM.HPF (Urine sed) [#/Area] 0 /[HPF] None Seen [facility] Urine specific gravity measu rementOrdered By: Matt Coy on 02-02-2023 Specific gravity (U) [Rel density] 1.015 1.002-1.030 [facility] Urobilinogen Auto test strip Ql (U)Ordered By: Matt Coy on 02-02-2023 Urobilinogen Ql (U) Normal mg/dl Normal [facility] Basophil percentageOrdered B y: Joao Simon on 01-03-2023 Sodium [Moles/Vol] 141 mmol/L 136-145 [facility] WBC (Bld) [#/Vol] 5.7 10*3/uL 4.4-11.0 [facility] Blood erythrocytes count (nu mber/volume)Ordered By: Joao Simon on 01-03-2023 RBC (Bld) [#/Vol] 4.44 10*6/uL 4.2-5.4 [facility] Blood hemoglobin measurement (mass/volume)Ordered By: Joao Simon on 01-03-2023 Hemoglobin (Bld) [Mass/Vol] 13.5 g/dL 12.0-15.0 [facility] Blood platelet mean volumeOr dered By: Joao Simon on 01-03-2023 Platelet mean volume (Bld) [Entitic vol] 10.6 fL 6.2-12.0 [facility] Determination of erythrocyte mean corpuscular volume (MCV)Ordered By: Joao Simon on 01-03-2023 MCV (RBC) [Entitic vol] 96.2 fL 81-[address] [facility] Hematocrit Auto (Bld) [Volum e fraction]Ordered By: Joao Simon on 01-03-2023 Hematocrit (Bld) [Volume fraction] 42.7 % 37-47 [facility] INR in Blood by Coagulation assayOrdered By: Joao Simon on 01-03-2023 INR Coag (Bld) [Relative time] 2.0 {INR} [facility] Laboratory - CoagulationOrde red By: Joao Simon on 01-03-2023 PT Coag (PPP) [Time] 23.0 s 11.7-14.9 [facility] [place] Laboratory - Hematology and Cell countsOrdered By: Joao Simon on 01-03-2023 Erythrocyte distribution width (RBC) [Entitic vol] 45.0 fL 35.1-43.9 [facility] Erythrocyte distribution width (RBC) [Ratio] 12.7 % 11.6-14.6 [facility] MCH (RBC) [Entitic mass] 30.4 pg 27.0-32.0 [facility] MCHC Auto (RBC) [Mass/Vol]Or dered By: Joao Simon on 01-03-2023 MCHC (RBC) [Mass/Vol] 31.6 g/dL 32-36 [facility] Platelets bldOrdered By: Brittany Simon on 01-03-2023 Platelets (Bld) [#/Vol] 214 10*3/uL 150-450 [facility] Basophil percentageOrdered B y: Joao Simon on 11-30-2022 Cholesterol [Mass/Vol] 127 mg/dL <[address] [facility] Comment on above: <200 mg/dL Desirable 200-240 mg/dL Borderline >240 mg/dL High Risk Sodium [Moles/Vol] 139 mmol/L 136-145 [facility] Triglyceride [Mass/Vol] 73 mg/dL <[address] [facility] Comment on above: The drugs N-Acetylcy steine and Metamizole may falsely depress this assay.Serum Triglycerides Reference Interval Normal <150 mg/dL Borderline high 150 - 199 mg/dL High 200 - 499 mg/dL Very High > or = 500 mg/dL INR in Blood by Coagulation assayOrdered By: Joao Simon on 11-30-2022 INR Coag (Bld) [Relative time] 3.3 {INR} [facility] - CoagulationOrde red By: Joao Simon on 11-30-2022 PT Coag (PPP) [Time] 34.0 s 11.7-14.9 [facility] Serum or plasma cholesterol in HDL measurement (mass/volume)Ordered By: Joao Simon on 11-30-2022 Cholesterol in HDL [Mass/Vol] 49 mg/dL >40 [facility] Comment on above: The drugs N-Acetylcy steine and Metamizole may falsely depress this assay. Reference Range HDL <40 mg/dL Low HDL Cholesterol HDL >or= 60 mg/dL High HDL Cholesterol Serum or plasma cholesterol in VLDL measurement (mass/volume)Ordered By: Joao Simon on 11-30-2022 Cholesterol in VLDL [Mass/Vol] 15 mg/dL 5-40 [facility] Serum or plasma low density lipoprotein (LDL) cholesterol measurement (mass/volume)Ordered By: Joao Simon on 11-30-2022 Cholesterol in LDL [Mass/Vol] 63 mg/dL 0-130 [facility] - CoagulationOrde red By: Joao Simon on 11-16-2022 INR Coag (Bld) [Relative time] 3.0 {INR} [facility] Comment on above: Critical Value > 4.0 Whole blood prothrombin time Ordered By: Joao Simon on 11-16-2022 PT Coag (Bld) [Time] 32.0 s 11.7-14.9 [facility] Basophil percentageOrdered B y: Joao Simon on 11-02-2022 Chloride [Moles/Vol] 108 mmol/L 98-107 [facility] Glucose [Mass/Vol] 120 mg/dL 74-106 [facility] Comment on above: Fasting Glucose resu lt from 100 to 125 mg/dL suggests IMPAIRED HOMEOSTASIS per A.D.A. criteria. Potassium [Moles/Vol] 4.8 mmol/L 3.5-5.1 [facility] Sodium [Moles/Vol] 141 mmol/L 136-145 [facility] WBC (Bld) [#/Vol] 6.2 10*3/uL 4.4-11.0 [facility] Blood erythrocytes count (nu mber/volume)Ordered By: Joao Simon on 11-02-2022 RBC (Bld) [#/Vol] 4.44 10*6/uL 4.2-5.4 [facility] Blood hemoglobin measurement (mass/volume)Ordered By: Joao Simon on 11-02-2022 Hemoglobin (Bld) [Mass/Vol] 13.6 g/dL 12.0-15.0 [facility] Blood platelet mean volumeOr dered By: Joao Simon on 11-02-2022 Platelet mean volume (Bld) [Entitic vol] 10.7 fL 6.2-12.0 [facility] Determination of erythrocyte mean corpuscular volume (MCV)Ordered By: Joao Simon on 11-02-2022 MCV (RBC) [Entitic vol] 95.5 fL 81-[address] [facility] Hematocrit Auto (Bld) [Volum e fraction]Ordered By: Joao Simon on 11-02-2022 Hematocrit (Bld) [Volume fraction] 42.4 % 37-47 [facility] INR in Blood by Coagulation assayOrdered By: Joao Simon on 11-02-2022 INR Coag (Bld) [Relative time] 2.9 {INR} [facility] Laboratory - Chemistry and C hemistry - challengeOrdered By: Joao Simon on 11-02-2022 CO2 [Moles/Vol] 30.0 mmol/L 21.0-32.0 [facility] Urea nitrogen/Creatinine [Mass ratio] 14.5 mg/mg 10-20 [facility] Laboratory - CoagulationOrde red By: Joao Simon on 11-02-2022 PT Coag (PPP) [Time] 30.9 s 11.7-14.9 [facility] [place] Laboratory - Hematology and Cell countsOrdered By: Joao Simon on 11-02-2022 Erythrocyte distribution width (RBC) [Entitic vol] 46.2 fL 35.1-43.9 [facility] Erythrocyte distribution width (RBC) [Ratio] 13.1 % 11.6-14.6 [facility] MCH (RBC) [Entitic mass] 30.6 pg 27.0-32.0 [facility] MCHC Auto (RBC) [Mass/Vol]Or dered By: Joao Simon on 11-02-2022 MCHC (RBC) [Mass/Vol] 32.1 g/dL 32-36 [facility] No Panel InformationOrdered By: Joao Simon on 11-02-2022 Estimated GFR (MDRD) Amer 104 mL/min >60 [facility] Comment on above: GFR Calc Estimated GFR (MDRD) Non-Af Amer 86 mL/min >60 [facility] Comment on above: Non- GFR Calc Platelets bldOrdered By: Brittany Simon on 11-02-2022 Platelets (Bld) [#/Vol] 226 10*3/uL 150-450 [facility] Serum or plasma calcium josué urement (mass/volume)Ordered By: Joao Simon on 11-02-2022 Calcium [Mass/Vol] 9.2 mg/dL 8.5-10.1 [facility] Serum or plasma creatinine m easurement (mass/volume)Ordered By: Joao Simon on 11-02-2022 Creatinine [Mass/Vol] 0.69 mg/dL 0.55-1.02 [facility] Comment on above: The validity of the calculated GFR & GFRAA in patients over 70 years has not been determined. Clinical correlation is essential. Serum or plasma urea nitroge n measurement (mass/volume)Ordered By: Joao Simon on 11-02-2022 Urea nitrogen [Mass/Vol] 10 mg/dL 7-18 [facility] Thin prep Papanicolaou smear with manual screeningOrdered By: Joao Simon on 11-02-2022 Thin prep Papanicolaou smear with manual screening 3 5-15 [facility] Basophil percentageOrdered B y: Joao Simon on 10-19-2022 Sodium [Moles/Vol] 140 mmol/L 136-145 [facility] INR in Blood by Coagulation assayOrdered By: Joao Simon on 10-19-2022 INR Coag (Bld) [Relative time] 2.8 {INR} [facility] - CoagulationOrde red By: Joao Simon on 10-19-2022 PT Coag (PPP) [Time] 30.0 s 11.7-14.9 [facility] Laboratory - CoagulationOrde red By: Joao Simon on 10-05-2022 INR Coag (Bld) [Relative time] 1.7 {INR} [facility] Comment on above: Critical Value > 4.0 Whole blood prothrombin time Ordered By: Joao Simon on 10-05-2022 PT Coag (Bld) [Time] 19.0 s 11.7-14.9 [facility] Basophil percentageOrdered B y: Joao Simon on 10-03-2022 Chloride [Moles/Vol] 103 mmol/L 98-107 [facility] Glucose [Mass/Vol] 121 mg/dL 74-106 [facility] Comment on above: Fasting Glucose resu lt from 100 to 125 mg/dL suggests IMPAIRED HOMEOSTASIS per A.D.A. criteria. Potassium [Moles/Vol] 4.3 mmol/L 3.5-5.1 [facility] Sodium [Moles/Vol] 136 mmol/L 136-145 [facility] Laboratory - Chemistry and C hemistry - challengeOrdered By: Joao Simon on 10-03-2022 CO2 [Moles/Vol] 29.0 mmol/L 21.0-32.0 [facility] Urea nitrogen/Creatinine [Mass ratio] 17.3 mg/mg 10-20 [facility] No Panel InformationOrdered By: Joao Simon on 10-03-2022 Estimated GFR (MDRD) Amer 104 mL/min >60 [facility] Comment on above: GFR Calc Estimated GFR (MDRD) Non-Af Amer 86 mL/min >60 [facility] Comment on above: Non- GFR Calc Serum or plasma calcium josué urement (mass/volume)Ordered By: Joao Simon on 10-03-2022 Calcium [Mass/Vol] 9.0 mg/dL 8.5-10.1 [facility] Serum or plasma creatinine m easurement (mass/volume)Ordered By: Joao Simon on 10-03-2022 Creatinine [Mass/Vol] 0.69 mg/dL 0.55-1.02 [facility] Comment on above: The validity of the calculated GFR & GFRAA in patients over 70 years has not been determined. Clinical correlation is essential. Serum or plasma urea nitroge n measurement (mass/volume)Ordered By: Joao Simon on 10-03-2022 Urea nitrogen [Mass/Vol] 12 mg/dL 7-18 [facility] Thin prep Papanicolaou smear with manual screeningOrdered By: Joao Simon on 10-03-2022 Thin prep Papanicolaou smear with manual screening 4 5-15 [facility] - CoagulationOrde red By: Joao Simon on 09-28-2022 INR Coag (Bld) [Relative time] 2.2 {INR} [facility] Comment on above: Critical Value > 4.0 Whole blood prothrombin time Ordered By: Joao Simon on 09-28-2022 PT Coag (Bld) [Time] 24.4 s 11.7-14.9 [facility] Basophil percentageOrdered B y: Joao Simon on 09-20-2022 Chloride [Moles/Vol] 96 mmol/L 98-107 [facility] Glucose [Mass/Vol] 94 mg/dL 74-106 [facility] Potassium [Moles/Vol] 4.4 mmol/L 3.5-5.1 [facility] Sodium [Moles/Vol] 132 mmol/L 136-145 [facility] WBC (Bld) [#/Vol] 6.7 10*3/uL 4.4-11.0 [facility] Blood erythrocytes count (nu mber/volume)Ordered By: Joao Simon on 09-20-2022 RBC (Bld) [#/Vol] 4.21 10*6/uL 4.2-5.4 [facility] Blood hemoglobin measurement (mass/volume)Ordered By: Joao Simon on 09-20-2022 Hemoglobin (Bld) [Mass/Vol] 13.0 g/dL 12.0-15.0 [facility] Blood platelet mean volumeOr dered By: Joao Simon on 09-20-2022 Platelet mean volume (Bld) [Entitic vol] 10.2 fL 6.2-12.0 [facility] Determination of erythrocyte mean corpuscular volume (MCV)Ordered By: Joao Simon on 09-20-2022 MCV (RBC) [Entitic vol] 91.0 fL 81-[address] [facility] Hematocrit Auto (Bld) [Volum e fraction]Ordered By: Joao Simon on 09-20-2022 Hematocrit (Bld) [Volume fraction] 38.3 % 37-47 [facility] Laboratory - Chemistry and C hemistry - challengeOrdered By: Joao Simon on 09-20-2022 CO2 [Moles/Vol] 33.0 mmol/L 21.0-32.0 [facility] Urea nitrogen/Creatinine [Mass ratio] 12.7 mg/mg 10-20 [facility] Laboratory - Hematology and Cell countsOrdered By: Joao Simon on 09-20-2022 Erythrocyte distribution width (RBC) [Entitic vol] 40.4 fL 35.1-43.9 [facility] Erythrocyte distribution width (RBC) [Ratio] 12.1 % 11.6-14.6 [facility] MCH (RBC) [Entitic mass] 30.9 pg 27.0-32.0 [facility] MCHC Auto (RBC) [Mass/Vol]Or dered By: Joao Simon on 09-20-2022 MCHC (RBC) [Mass/Vol] 33.9 g/dL 32-36 [facility] No Panel InformationOrdered By: Joao Simon on 09-20-2022 Estimated GFR (MDRD) Amer 89 mL/min >60 [facility] Comment on above: GFR Calc Estimated GFR (MDRD) Non-Af Amer 74 mL/min >60 [facility] Comment on above: Non- GFR Calc Platelets bldOrdered By: Brittany Simon on 09-20-2022 Platelets (Bld) [#/Vol] 229 10*3/uL 150-450 [facility] Serum or plasma calcium josué urement (mass/volume)Ordered By: Joao Simon on 09-20-2022 Calcium [Mass/Vol] 8.8 mg/dL 8.5-10.1 [facility] Serum or plasma creatinine m easurement (mass/volume)Ordered By: Joao Simon on 09-20-2022 Creatinine [Mass/Vol] 0.79 mg/dL 0.55-1.02 [facility] Comment on above: The validity of the calculated GFR & GFRAA in patients over 70 years has not been determined. Clinical correlation is essential. Serum or plasma urea nitroge n measurement (mass/volume)Ordered By: Joao Simon on 09-20-2022 Urea nitrogen [Mass/Vol] 10 mg/dL 7-18 [facility] Thin prep Papanicolaou smear with manual screeningOrdered By: Joao Simon on 09-20-2022 Thin prep Papanicolaou smear with manual screening 3 5-15 [facility] Culture, urineOrdered By: Rodrick Simon on 09-17-2022 Bacteria identified Cx Nom (U) Positive [facility] Bilirubin Test strip Ql (U)O rdered By: Joao Simon on 09-16-2022 Bilirubin Ql (U) Negative Negative [facility] Culture, urineOrdered By: Rodrick Simon on 09-16-2022 Bacteria identified Cx Nom (U) Positive [facility] Ketones Test strip Ql (U)Ord ered By: Joao Simon on 09-16-2022 Ketones Ql (U) Negative Negative [facility] Nitrite Test strip Ql (U)Ord ered By: Joao Simon on 09-16-2022 Nitrite Ql (U) Negative Negative [facility] Protein Test strip Ql (U)Ord ered By: Joao Simon on 09-16-2022 Protein Ql (U) 15 mg/dl Negative [facility] Urine blood detectionOrdered By: Joao Simon on 09-16-2022 RBC Ql (U) 10 /ul Negative [facility] Urine clarityOrdered By: Brittany Simon on 09-16-2022 Clarity (U) Sl. Cloudy Clear [facility] Urine color determinationOrd ered By: Joao Simon on 09-16-2022 Color (U) Yellow Yellow [facility] Urine glucose detectionOrder ed By: Joao Simon on 09-16-2022 Glucose Ql (U) Normal mg/dl Normal [facility] Urine leukocyte esterase det ection by dipstickOrdered By: Joao Simon on 09-16-2022 Leukocyte esterase Test strip Ql (U) 500 /ul Negative [facility] Urine pHOrdered By: Joao almeida on 09-16-2022 pH (U) 6.0 [pH] 5.0 - 8.0 [facility] Urine specific gravity measu rementOrdered By: Joao Simon on 09-16-2022 Specific gravity (U) [Rel density] 1.020 1.002-1.030 [facility] Urobilinogen Auto test strip Ql (U)Ordered By: Joao Simon on 09-16-2022 Urobilinogen Ql (U) Normal mg/dl Normal [facility] Basophil percentageOrdered B y: Hortensia Unger on 08-29-2022 Cholesterol [Mass/Vol] 126 mg/dL <[address] [facility] Comment on above: <200 mg/dL Desirable 200-240 mg/dL Borderline >240 mg/dL High Risk Triglyceride [Mass/Vol] 105 mg/dL <[address] [facility] Comment on above: The drugs N-Acetylcy steine and Metamizole may falsely depress this assay.Serum Triglycerides Reference Interval Normal <150 mg/dL Borderline high 150 - 199 mg/dL High 200 - 499 mg/dL Very High > or = 500 mg/dL WBC (Bld) [#/Vol] 6.4 10*3/uL 4.4-11.0 [facility] Blood erythrocytes count (nu mber/volume)Ordered By: Hortensia Unger on 08-29-2022 RBC (Bld) [#/Vol] 4.38 10*6/uL 4.2-5.4 [facility] Blood hemoglobin measurement (mass/volume)Ordered By: Hortensia Unger on 08-29-2022 Hemoglobin (Bld) [Mass/Vol] 13.4 g/dL 12.0-15.0 [facility] Blood platelet mean volumeOr dered By: Hortensia Unger on 08-29-2022 Platelet mean volume (Bld) [Entitic vol] 10.0 fL 6.2-12.0 [facility] Determination of erythrocyte mean corpuscular volume (MCV)Ordered By: Hortensia Unger on 08-29-2022 MCV (RBC) [Entitic vol] 92.9 fL 81-99 [facility] Hematocrit Auto (Bld) [Volum e fraction]Ordered By: Hortensia Unger on 08-29-2022 Hematocrit (Bld) [Volume fraction] 40.7 % 37-47 [facility] INR in Blood by Coagulation assayOrdered By: Hortensia Unger on 08-29-2022 INR Coag (Bld) [Relative time] 1.9 {INR} [facility] Laboratory - CoagulationOrde red By: Hortensia Unger on 08-29-2022 PT Coag (PPP) [Time] 21.3 s 11.7-14.9 [facility] [place] Laboratory - Hematology and Cell countsOrdered By: Hortensia Unger on 08-29-2022 Erythrocyte distribution width (RBC) [Entitic vol] 42.1 fL 35.1-43.9 [facility] Erythrocyte distribution width (RBC) [Ratio] 12.3 % 11.6-14.6 [facility] MCH (RBC) [Entitic mass] 30.6 pg 27.0-32.0 [facility] MCHC Auto (RBC) [Mass/Vol]Or dered By: Hortensia Unger on 08-29-2022 MCHC (RBC) [Mass/Vol] 32.9 g/dL 32-36 [facility] Platelets bldOrdered By: Hortensia Unger on 08-29-2022 Platelets (Bld) [#/Vol] 215 10*3/uL 150-450 [facility] Serum or plasma cholesterol in HDL measurement (mass/volume)Ordered By: Hortensia Unger on 08-29-2022 Cholesterol in HDL [Mass/Vol] 48 mg/dL >40 [facility] Comment on above: The drugs N-Acetylcy steine and Metamizole may falsely depress this assay. Reference Range HDL <40 mg/dL Low HDL Cholesterol HDL >or= 60 mg/dL High HDL Cholesterol Serum or plasma cholesterol in VLDL measurement (mass/volume)Ordered By: Hortensia Unger on 08-29-2022 Cholesterol in VLDL [Mass/Vol] 21 mg/dL 5-40 [facility] Serum or plasma low density lipoprotein (LDL) cholesterol measurement (mass/volume)Ordered By: Hortensia Unger on 08-29-2022 Cholesterol in LDL [Mass/Vol] 57 mg/dL 0-130 [facility] Basophil percentageOrdered B y: Hortensia Unger on 08-08-2022 Sodium [Moles/Vol] 137 mmol/L 136-145 [facility] Basophil percentageOrdered B y: Hortensia Unger on 07-28-2022 Bilirubin [Mass/Vol] 0.30 mg/dL 0.20-1.00 [facility] Comment on above: For patients on eltr ombopag therapy, use of Dimension [place] TBIL is not recommended. Chloride [Moles/Vol] 95 mmol/L 98-107 [facility] Glucose [Mass/Vol] 118 mg/dL 74-106 [facility] Comment on above: Fasting Glucose resu lt from 100 to 125 mg/dL suggests IMPAIRED HOMEOSTASIS per A.D.A. criteria. Potassium [Moles/Vol] 3.5 mmol/L 3.5-5.1 [facility] Protein [Mass/Vol] 7.0 g/dL 6.4-8.2 [facility] Sodium [Moles/Vol] 135 mmol/L 136-145 [facility] WBC (Bld) [#/Vol] 6.4 10*3/uL 4.4-11.0 [facility] Blood erythrocytes count (nu mber/volume)Ordered By: Hortensia Unger on 07-28-2022 RBC (Bld) [#/Vol] 4.56 10*6/uL 4.2-5.4 [facility] Blood hemoglobin measurement (mass/volume)Ordered By: Hortensia Unger on 07-28-2022 Hemoglobin (Bld) [Mass/Vol] 14.0 g/dL 12.0-15.0 [facility] Blood platelet mean volumeOr dered By: Hortensia Unger on 07-28-2022 Platelet mean volume (Bld) [Entitic vol] 10.4 fL 6.2-12.0 [facility] Determination of erythrocyte mean corpuscular volume (MCV)Ordered By: Hortensia Unger on 07-28-2022 MCV (RBC) [Entitic vol] 93.9 fL 81-[address] [facility] Hematocrit Auto (Bld) [Volum e fraction]Ordered By: Hortensia Unger on 07-28-2022 Hematocrit (Bld) [Volume fraction] 42.8 % 37-47 [facility] INR in Blood by Coagulation assayOrdered By: Hortensia Unger on 07-28-2022 INR Coag (Bld) [Relative time] 1.7 {INR} [facility] Laboratory - Chemistry and C hemistry - challengeOrdered By: Hortensia Unger on 07-28-2022 ALP [Catalytic activity/Vol] 65 U/L 45-117 [facility] ALT [Catalytic activity/Vol] 25 U/L 13-56 [facility] CO2 [Moles/Vol] 31.0 mmol/L 21.0-32.0 [facility] Globulin (S) [Mass/Vol] 3.7 g/dL 2.2-4.[address] [facility] Urea nitrogen/Creatinine [Mass ratio] 14.2 mg/mg 10-20 [facility] Laboratory - CoagulationOrde red By: Hortensia Unger on 07-28-2022 PT Coag (PPP) [Time] 19.5 s 11.7-14.9 [facility] [place] Laboratory - Hematology and Cell countsOrdered By: Hortensia Unger on 07-28-2022 Erythrocyte distribution width (RBC) [Entitic vol] 42.4 fL 35.1-43.9 [facility] Erythrocyte distribution width (RBC) [Ratio] 12.2 % 11.6-14.6 [facility] MCH (RBC) [Entitic mass] 30.7 pg 27.0-32.0 [facility] MCHC Auto (RBC) [Mass/Vol]Or dered By: Hortensia Unger on 07-28-2022 MCHC (RBC) [Mass/Vol] 32.7 g/dL 32-36 [facility] No Panel InformationOrdered By: Hortensia Unger on 07-28-2022 Estimated GFR (MDRD) Amer 101 mL/min >60 [facility] Comment on above: GFR Calc Estimated GFR (MDRD) Non-Af Amer 84 mL/min >60 [facility] Comment on above: Non- GFR Calc Platelets bldOrdered By: Hortensia Unger on 07-28-2022 Platelets (Bld) [#/Vol] 234 10*3/uL 150-450 [facility] Serum or plasma albumin josué urement (mass/volume)Ordered By: Hortensia Unger on 07-28-2022 Albumin [Mass/Vol] 3.3 g/dL 3.2-5.0 [facility] Serum or plasma albumin/glob ulin mass ratioOrdered By: Hortensia Unger on 07-28-2022 Albumin/Globulin [Mass ratio] 0.9 {ratio} 0.9-2.4 [facility] Serum or plasma calcium josué urement (mass/volume)Ordered By: Hortensia Unger on 07-28-2022 Calcium [Mass/Vol] 8.7 mg/dL 8.5-10.1 [facility] Serum or plasma creatinine m easurement (mass/volume)Ordered By: Hortensia Unger on 07-28-2022 Creatinine [Mass/Vol] 0.70 mg/dL 0.55-1.02 [facility] Comment on above: The validity of the calculated GFR & GFRAA in patients over 70 years has not been determined. Clinical correlation is essential. Serum or plasma urea nitroge n measurement (mass/volume)Ordered By: Hortensia Unger on 07-28-2022 Urea nitrogen [Mass/Vol] 10 mg/dL 7-18 [facility] Thin prep Papanicolaou smear with manual screeningOrdered By: Hortensia Unger on 07-28-2022 Thin prep Papanicolaou smear with manual screening 23 U/L 15-37 [facility] Thin prep Papanicolaou smear with manual screening 9 5-15 [facility] Basophil percentageOrdered B y: Hortensia Unger on 07-11-2022 Bilirubin [Mass/Vol] 0.50 mg/dL 0.20-1.00 [facility] [place] Comment on above: For patients on eltr ombopag therapy, use of Dimension [place] TBIL is not recommended. Chloride [Moles/Vol] 100 mmol/L 98-107 [facility] Glucose [Mass/Vol] 120 mg/dL 74-106 [facility] Comment on above: Fasting Glucose resu lt from 100 to 125 mg/dL suggests IMPAIRED HOMEOSTASIS per A.D.A. criteria. Potassium [Moles/Vol] 3.8 mmol/L 3.5-5.1 [facility] Protein [Mass/Vol] 7.0 g/dL 6.4-8.2 [facility] Sodium [Moles/Vol] 136 mmol/L 136-145 [facility] WBC (Bld) [#/Vol] 6.2 10*3/uL 4.4-11.0 [facility] Blood erythrocytes count (nu mber/volume)Ordered By: Hortensia Unger on 07-11-2022 RBC (Bld) [#/Vol] 4.39 10*6/uL 4.2-5.4 [facility] Blood hemoglobin measurement (mass/volume)Ordered By: Hortensia Unger on 07-11-2022 Hemoglobin (Bld) [Mass/Vol] 13.4 g/dL 12.0-15.0 [facility] Blood platelet mean volumeOr dered By: Hortensia Unger on 07-11-2022 Platelet mean volume (Bld) [Entitic vol] 10.5 fL 6.2-12.0 [facility] Determination of erythrocyte mean corpuscular volume (MCV)Ordered By: Hortensia Unger on 07-11-2022 MCV (RBC) [Entitic vol] 93.2 fL 81-99 [facility] Hematocrit Auto (Bld) [Volum e fraction]Ordered By: Hortensia Unger on 07-11-2022 Hematocrit (Bld) [Volume fraction] 40.9 % 37-47 [facility] Laboratory - Chemistry and C hemistry - challengeOrdered By: Hortensia Unger on 07-11-2022 ALP [Catalytic activity/Vol] 61 U/L 45-117 [facility] ALT [Catalytic activity/Vol] 21 U/L 13-56 [facility] CO2 [Moles/Vol] 30.0 mmol/L 21.0-32.0 [facility] Globulin (S) [Mass/Vol] 3.6 g/dL 2.2-4.2 [facility] Urea nitrogen/Creatinine [Mass ratio] 13.6 mg/mg 10-20 [facility] Laboratory - Hematology and Cell countsOrdered By: Hortensia Unger on 07-11-2022 Erythrocyte distribution width (RBC) [Entitic vol] 42.7 fL 35.1-43.9 [facility] Erythrocyte distribution width (RBC) [Ratio] 12.5 % 11.6-14.6 [facility] MCH (RBC) [Entitic mass] 30.5 [facility] 27.0-[facility].0 [facility] [Mass/Vol]Or dered By: Hortensia Unger on 07-11-2022 MCHC (RBC) [Mass/Vol] 32.8 g/dL 32-36 [facility] No Panel InformationOrdered By: Hortensia Unger on 07-11-2022 Estimated GFR (MDRD) Amer 87 mL/min >60 [facility] Comment on above: GFR Calc Estimated GFR (MDRD) Non-Af Amer 72 mL/min >60 [facility] Comment on above: Non- GFR Calc Platelets bldOrdered By: Hortensia Unger on 07-11-2022 Platelets (Bld) [#/Vol] 224 10*3/uL 150-450 [facility] Serum or plasma albumin josué urement (mass/volume)Ordered By: Hortensia Unger on 07-11-2022 Albumin [Mass/Vol] 3.4 g/dL 3.2-5.0 [facility] Serum or plasma albumin/glob ulin mass ratioOrdered By: Hortensia Unger on 07-11-2022 Albumin/Globulin [Mass ratio] 0.9 {ratio} 0.9-2.4 [facility] Serum or plasma calcium josué urement (mass/volume)Ordered By: Hortensia Unger on 07-11-2022 Calcium [Mass/Vol] 8.9 mg/dL 8.5-10.1 [facility] Serum or plasma creatinine m easurement (mass/volume)Ordered By: Hortensia Unger on 07-11-2022 Creatinine [Mass/Vol] 0.81 mg/dL 0.55-1.02 [facility] Comment on above: The validity of the calculated GFR & GFRAA in patients over 70 years has not been determined. Clinical correlation is essential. Serum or plasma urea nitroge n measurement (mass/volume)Ordered By: Hortensia Unger on 07-11-2022 Urea nitrogen [Mass/Vol] 11 mg/dL 7-18 [facility] Thin prep Papanicolaou smear with manual screeningOrdered By: Hortensia Unger on 07-11-2022 Thin prep Papanicolaou smear with manual screening 23 U/L 15-37 [facility] Thin prep Papanicolaou smear with manual screening 6 5-15 [facility] Basophil percentageOrdered B y: Hortensia Unger on 07-01-2022 Bilirubin [Mass/Vol] 0.40 mg/dL 0.20-1.00 [facility] Comment on above: For patients on eltr ombopag therapy, use of Dimension [place] TBIL is not recommended. Chloride [Moles/Vol] 101 mmol/L 98-107 [facility] Glucose [Mass/Vol] 151 mg/dL 74-106 [facility] Comment on above: Fasting Glucose resu lt greater than or equal to 126 mg/dL suggests DIABETES MELLITUS per A.D.A. criteria. Potassium [Moles/Vol] 4.2 mmol/L 3.5-5.1 [facility] Protein [Mass/Vol] 6.3 g/dL 6.4-8.2 [facility] Sodium [Moles/Vol] 137 mmol/L 136-145 [facility] WBC (Bld) [#/Vol] 5.1 10*3/uL 4.4-11.0 [facility] Blood erythrocytes count (nu mber/volume)Ordered By: Hortensia Unger on 07-01-2022 RBC (Bld) [#/Vol] 4.03 10*6/uL 4.2-5.4 [facility] Blood hemoglobin measurement (mass/volume)Ordered By: Hortensia Unger on 07-01-2022 Hemoglobin (Bld) [Mass/Vol] 12.7 g/dL 12.0-15.0 [facility] Blood platelet mean volumeOr dered By: Hortensia Unger on 07-01-2022 Platelet mean volume (Bld) [Entitic vol] 10.1 fL 6.2-12.0 [facility] Determination of erythrocyte mean corpuscular volume (MCV)Ordered By: Hortensia Unger on 07-01-2022 MCV (RBC) [Entitic vol] 92.1 fL 81-[address] [facility] Hematocrit Auto (Bld) [Volum e fraction]Ordered By: Hortensia Unger on 07-01-2022 Hematocrit (Bld) [Volume fraction] 37.1 % 37-47 [facility] INR in Blood by Coagulation assayOrdered By: Hortensia Unger on 07-01-2022 INR Coag (Bld) [Relative time] 2.0 {INR} [facility] Laboratory - Chemistry and C hemistry - challengeOrdered By: Hortensia Unger on 07-01-2022 ALP [Catalytic activity/Vol] 55 U/L 45-117 [facility] ALT [Catalytic activity/Vol] 20 U/L 13-56 [facility] CO2 [Moles/Vol] 30.0 mmol/L 21.0-32.0 [facility] Globulin (S) [Mass/Vol] 3.3 g/dL 2.2-4.[address] [facility] Urea nitrogen/Creatinine [Mass ratio] 21.0 mg/mg 10-20 [facility] Laboratory - CoagulationOrde red By: Hortensia Unger on 07-01-2022 PT Coag (PPP) [Time] 22.0 s 11.7-14.9 [facility] Laboratory - Hematology and Cell countsOrdered By: Hrotensia Unger on 07-01-2022 Erythrocyte distribution width (RBC) [Entitic vol] 42.5 fL 35.1-43.9 [facility] Erythrocyte distribution width (RBC) [Ratio] 12.5 % 11.6-14.6 [facility] MCH (RBC) [Entitic mass] 31.5 pg 27.0-32.0 [facility] MCHC Auto (RBC) [Mass/Vol]Or dered By: Hortensia Unger on 07-01-2022 MCHC (RBC) [Mass/Vol] 34.2 g/dL 32-36 [facility] No Panel InformationOrdered By: Hortensia Unger on 07-01-2022 Estimated GFR (MDRD) Amer 108 mL/min >60 [facility] Comment on above: GFR Calc Estimated GFR (MDRD) Non-Af Amer 89 mL/min >60 [facility] Comment on above: Non- GFR Calc Platelets bldOrdered By: Hortensia Unger on 07-01-2022 Platelets (Bld) [#/Vol] 208 10*3/uL 150-450 [facility] Serum or plasma albumin josué urement (mass/volume)Ordered By: Hortensia Unger on 07-01-2022 Albumin [Mass/Vol] 3.0 g/dL 3.2-5.0 [facility] Serum or plasma albumin/glob ulin mass ratioOrdered By: Hortensia Unger on 07-01-2022 Albumin/Globulin [Mass ratio] 0.9 {ratio} 0.9-2.4 [facility] Serum or plasma calcium josué urement (mass/volume)Ordered By: Hortensia Unger on 07-01-2022 Calcium [Mass/Vol] 8.6 mg/dL 8.5-10.1 [facility] Serum or plasma creatinine m easurement (mass/volume)Ordered By: Hortensia Unger on 07-01-2022 Creatinine [Mass/Vol] 0.67 mg/dL 0.55-1.02 [facility] Comment on above: The validity of the calculated GFR & GFRAA in patients over 70 years has not been determined. Clinical correlation is essential. Serum or plasma urea nitroge n measurement (mass/volume)Ordered By: Hortensia Unger on 07-01-2022 Urea nitrogen [Mass/Vol] 14 mg/dL 7-18 [facility] Thin prep Papanicolaou smear with manual screeningOrdered By: Hortensia Unger on 07-01-2022 Thin prep Papanicolaou smear with manual screening 22 U/L 15-37 [facility] Thin prep Papanicolaou smear with manual screening 6 5-15 [facility] Basophil percentageOrdered B y: Dr. Stephens on 06-17-2022 Cholesterol [Mass/Vol] 112 mg/dL <[address] [facility] Comment on above: <200 mg/dL Desirable 200-240 mg/dL Borderline >240 mg/dL High Risk Triglyceride [Mass/Vol] 78 mg/dL <[address] [facility] Comment on above: The drugs N-Acetylcy steine and Metamizole may falsely depress this assay.Serum Triglycerides Reference Interval Normal <150 mg/dL Borderline high 150 - 199 mg/dL High 200 - 499 mg/dL Very High > or = 500 mg/dL INR in Blood by Coagulation assayOrdered By: Dr. Stephens on 06-17-2022 INR Coag (Bld) [Relative time] 1.8 {INR} [facility] Laboratory - CoagulationOrde red By: Dr. Stephens on 06-17-2022 PT Coag (PPP) [Time] 20.2 s 11.7-14.9 [facility] Serum or plasma cholesterol in HDL measurement (mass/volume)Ordered By: Dr. Stephens on 06-17-2022 Cholesterol in HDL [Mass/Vol] 45 mg/dL >40 [facility] Comment on above: The drugs N-Acetylcy steine and Metamizole may falsely depress this assay. Reference Range HDL <40 mg/dL Low HDL Cholesterol HDL >or= 60 mg/dL High HDL Cholesterol Serum or plasma cholesterol in VLDL measurement (mass/volume)Ordered By: Dr. Stephens on 06-17-2022 Cholesterol in VLDL [Mass/Vol] 16 mg/dL 5-40 [facility] Serum or plasma low density lipoprotein (LDL) cholesterol measurement (mass/volume)Ordered By: Dr. Stephens on 06-17-2022 Cholesterol in LDL [Mass/Vol] 51 mg/dL 0-130 [facility] Absolute lymphocyte countOrd ered By: Dr. Davis on 06-16-2022 Lymphocytes Auto (Unsp spec) [#/Vol] 1.94 10*3/uL 0.83-4.51 [facility] Basophil percentageOrdered B y: Dr. Davis on 06-16-2022 Basophils/100 WBC (Bld) 0.8 % 0-[address] [facility] Chloride [Moles/Vol] 99 mmol/L 98-107 [facility] Eosinophils/100 WBC (Bld) 3.9 % 0-5 [facility] Glucose [Mass/Vol] 98 mg/dL 74-106 [facility] Neutrophils (Bld) [#/Vol] 3.6 10*3/uL 2.0-7.7 [facility] Neutrophils/100 WBC (Bld) 56.3 % 47-70 [facility] Potassium [Moles/Vol] 4.2 mmol/L 3.5-5.1 [facility] Sodium [Moles/Vol] 135 mmol/L 136-145 [facility] WBC (Bld) [#/Vol] 6.4 10*3/uL 4.4-11.0 [facility] Blood erythrocytes count (nu mber/volume)Ordered By: Dr. Davis on 06-16-2022 RBC (Bld) [#/Vol] 4.32 10*6/uL 4.2-5.4 [facility] Blood hemoglobin measurement (mass/volume)Ordered By: Dr. Davis on 06-16-2022 Hemoglobin (Bld) [Mass/Vol] 13.1 g/dL 12.0-15.0 [facility] Blood lymphocytes/100 leukoc ytesOrdered By: Dr. Davis on 06-16-2022 Lymphocytes/100 WBC (Bld) 30.6 % 19-41 [facility] Blood monocytes/100 leukocyt esOrdered By: Dr. Davis on 06-16-2022 Monocytes/100 WBC (Bld) 8.2 % 0-[address] [facility] Blood platelet mean volumeOr dered By: Dr. Davis on 06-16-2022 Platelet mean volume (Bld) [Entitic vol] 10.1 fL 6.2-12.0 [facility] Determination of erythrocyte mean corpuscular volume (MCV)Ordered By: Dr. Davis on 06-16-2022 MCV (RBC) [Entitic vol] 91.4 fL 81-[address] [facility] Hematocrit Auto (Bld) [Volum e fraction]Ordered By: Dr. Davis on 06-16-2022 Hematocrit (Bld) [Volume fraction] 39.5 % 37-47 [facility] INR in Blood by Coagulation assayOrdered By: Dr. Davis on 06-16-2022 INR Coag (Bld) [Relative time] 1.9 {INR} [facility] Laboratory - Chemistry and C hemistry - challengeOrdered By: Dr. Davis on 06-16-2022 CO2 [Moles/Vol] 32.0 mmol/L 21.0-32.0 [facility] Urea nitrogen/Creatinine [Mass ratio] 16.8 mg/mg 10-20 [facility] - CoagulationOrde red By: Dr. Davis on 06-16-2022 aPTT Coag (Bld) [Time] 30.2 s 24.1-36.[address] [facility] PT Coag (PPP) [Time] 21.0 s 11.7-14.9 [facility] [place] Laboratory - Hematology and Cell countsOrdered By: Dr. Davis on 06-16-2022 Erythrocyte distribution width (RBC) [Entitic vol] 41.0 fL 35.1-43.9 [facility] Erythrocyte distribution width (RBC) [Ratio] 12.3 % 11.6-14.6 [facility] Immature granulocytes/100 WBC (Bld) 0.200 % 0.0-0.9 [facility] Comment on above: IG% - Immature Granu locytes (promyelocytes, myelocytes and metamyelocytes) > 1% indicates that a LEFT SHIFT is Present. MCH (RBC) [Entitic mass] 30.3 pg 27.0-32.0 [facility] Nucleated RBC/100 WBC (Bld) [Ratio] 0 % 0-5 [facility] MCHC Auto (RBC) [Mass/Vol]Or dered By: Dr. Davis on 06-16-2022 MCHC (RBC) [Mass/Vol] 33.2 g/dL 32-36 [facility] No Panel InformationOrdered By: Dr. Davis on 06-16-2022 Estimated Creatinine Clearance Calc 31.60 ml/min [facility] Estimated GFR (MDRD) Amer 100 mL/min >60 [facility] Comment on above: GFR Calc Estimated GFR (MDRD) Non-Af Amer 83 mL/min >60 [facility] Comment on above: Non- GFR Calc Troponin I High Sensitivity 9 pg/mL 3.0-54.0 [facility] Comment on above: Please Note: New Amber t Units and Gender Specific Reference Ranges. For more information see Policy Stat Procedure [place] High Sensitivity Troponin (TNIH) and attachments. Platelets bldOrdered By: Dr. Davis on 06-16-2022 Platelets (Bld) [#/Vol] 233 10*3/uL 150-450 [facility] Serum or plasma calcium josué urement (mass/volume)Ordered By: Dr. Davis on 06-16-2022 Calcium [Mass/Vol] 8.9 mg/dL 8.5-10.1 [facility] Serum or plasma creatinine m easurement (mass/volume)Ordered By: Dr. Davis on 06-16-2022 Creatinine [Mass/Vol] 0.72 mg/dL 0.55-1.02 [facility] Comment on above: The validity of the calculated GFR & GFRAA in patients over 70 years has not been determined. Clinical correlation is essential. Serum or plasma urea nitroge n measurement (mass/volume)Ordered By: Dr. Davis on 06-16-2022 Urea nitrogen [Mass/Vol] 12 mg/dL 7-18 [facility] Thin prep Papanicolaou smear with manual screeningOrdered By: Dr. Davis on 06-16-2022 Thin prep Papanicolaou smear with manual screening 4 5-15 [facility] Basophil percentageOrdered B y: Hortensia Unger on 06-06-2022 Bilirubin [Mass/Vol] 0.30 mg/dL 0.20-1.00 [facility] [place] Comment on above: For patients on eltr ombopag therapy, use of Dimension [place] TBIL is not recommended. Chloride [Moles/Vol] 101 mmol/L 98-107 [facility] [place] Cholesterol [Mass/Vol] 111 mg/dL <[address] [facility] Comment on above: <200 mg/dL Desirable 200-240 mg/dL Borderline >240 mg/dL High Risk Glucose [Mass/Vol] 93 mg/dL 74-106 [facility] Potassium [Moles/Vol] 4.0 mmol/L 3.5-5.1 [facility] Protein [Mass/Vol] 6.0 g/dL 6.4-8.2 [facility] Sodium [Moles/Vol] 140 mmol/L 136-145 [facility] Triglyceride [Mass/Vol] 51 mg/dL <[address] [facility] Comment on above: The drugs N-Acetylcy steine and Metamizole may falsely depress this assay.Serum Triglycerides Reference Interval Normal <150 mg/dL Borderline high 150 - 199 mg/dL High 200 - 499 mg/dL Very High > or = 500 mg/dL WBC (Bld) [#/Vol] 5.9 10*3/uL 4.4-11.0 [facility] Blood erythrocytes count (nu mber/volume)Ordered By: Hortensia Unger on 06-06-2022 RBC (Bld) [#/Vol] 3.99 10*6/uL 4.2-5.4 [facility] Blood hemoglobin measurement (mass/volume)Ordered By: Hortensia Unger on 06-06-2022 Hemoglobin (Bld) [Mass/Vol] 12.2 g/dL 12.0-15.0 [facility] Blood platelet mean volumeOr dered By: Hortensia Unger on 06-06-2022 Platelet mean volume (Bld) [Entitic vol] 10.5 fL 6.2-12.0 [facility] Determination of erythrocyte mean corpuscular volume (MCV)Ordered By: Hortensia Unger on 06-06-2022 MCV (RBC) [Entitic vol] 92.7 fL 81-[address] [facility] Hematocrit Auto (Bld) [Volum e fraction]Ordered By: Hortensia Unger on 06-06-2022 Hematocrit (Bld) [Volume fraction] 37.0 % 37-47 [facility] INR in Blood by Coagulation assayOrdered By: Hortensia Unger on 06-06-2022 INR Coag (Bld) [Relative time] 2.1 {INR} [facility] Laboratory - Chemistry and C hemistry - challengeOrdered By: Hortensia Unger on 06-06-2022 ALP [Catalytic activity/Vol] 54 U/L 45-117 [facility] ALT [Catalytic activity/Vol] 25 U/L 13-56 [facility] CO2 [Moles/Vol] 31.0 mmol/L 21.0-32.0 [facility] Globulin (S) [Mass/Vol] 3.1 g/dL 2.2-4.[address] [facility] Urea nitrogen/Creatinine [Mass ratio] 19.7 mg/mg 10-20 [facility] Laboratory - CoagulationOrde red By: Hortensia Unger on 06-06-2022 PT Coag (PPP) [Time] 23.1 s 11.7-14.9 [facility] [place] Laboratory - Hematology and Cell countsOrdered By: Hortensia Unger on 06-06-2022 Erythrocyte distribution width (RBC) [Entitic vol] 43.4 fL 35.1-43.9 [facility] Erythrocyte distribution width (RBC) [Ratio] 12.7 % 11.6-14.6 [facility] MCH (RBC) [Entitic mass] 30.6 pg 27.0-32.0 [facility] MCHC Auto (RBC) [Mass/Vol]Or dered By: Hortensia Unger on 06-06-2022 MCHC (RBC) [Mass/Vol] 33.0 g/dL 32-36 [facility] No Panel InformationOrdered By: Hortensia Unger on 06-06-2022 Estimated GFR (MDRD) Amer 93 mL/min >60 [facility] Comment on above: GFR Calc Estimated GFR (MDRD) Non-Af Amer 77 mL/min >60 [facility] Comment on above: Non- GFR Calc Platelets bldOrdered By: Hortensia Unger on 06-06-2022 Platelets (Bld) [#/Vol] 214 10*3/uL 150-450 [facility] Serum or plasma albumin josué urement (mass/volume)Ordered By: Hortensia Unger on 06-06-2022 Albumin [Mass/Vol] 2.9 g/dL 3.2-5.0 [facility] Serum or plasma albumin/glob ulin mass ratioOrdered By: Hortensia Unger on 06-06-2022 Albumin/Globulin [Mass ratio] 0.9 {ratio} 0.9-2.4 [facility] Serum or plasma calcium josué urement (mass/volume)Ordered By: Hortensia Unger on 06-06-2022 Calcium [Mass/Vol] 8.3 mg/dL 8.5-10.1 [facility] Serum or plasma cholesterol in HDL measurement (mass/volume)Ordered By: Hortensia Unger on 06-06-2022 Cholesterol in HDL [Mass/Vol] 47 mg/dL >40 [facility] Comment on above: The drugs N-Acetylcy steine and Metamizole may falsely depress this assay. Reference Range HDL <40 mg/dL Low HDL Cholesterol HDL >or= 60 mg/dL High HDL Cholesterol Serum or plasma cholesterol in VLDL measurement (mass/volume)Ordered By: Hortensia Unger on 06-06-2022 Cholesterol in VLDL [Mass/Vol] 10 mg/dL 5-40 [facility] Serum or plasma creatinine m easurement (mass/volume)Ordered By: Hortensia Unger on 06-06-2022 Creatinine [Mass/Vol] 0.76 mg/dL 0.55-1.02 [facility] Comment on above: The validity of the calculated GFR & GFRAA in patients over 70 years has not been determined. Clinical correlation is essential. Serum or plasma low density lipoprotein (LDL) cholesterol measurement (mass/volume)Ordered By: Hortensia Unger on 06-06-2022 Cholesterol in LDL [Mass/Vol] 54 mg/dL 0-130 [facility] Serum or plasma urea nitroge n measurement (mass/volume)Ordered By: Hortensia Unger on 06-06-2022 Urea nitrogen [Mass/Vol] 15 mg/dL 7-18 [facility] Thin prep Papanicolaou smear with manual screeningOrdered By: Hortensia Unger on 06-06-2022 Thin prep Papanicolaou smear with manual screening 21 U/L 15-37 [facility] Thin prep Papanicolaou smear with manual screening 8 5-15 [facility] Basophil percentageOrdered B y: Hortensia Unger on 05-09-2022 Bilirubin [Mass/Vol] 0.50 mg/dL 0.20-1.00 [facility] [place] Comment on above: For patients on eltr ombopag therapy, use of Dimension [place] TBIL is not recommended. Chloride [Moles/Vol] 99 mmol/L 98-107 [facility] [place] Glucose [Mass/Vol] 115 mg/dL 74-106 [facility] Comment on above: Fasting Glucose resu lt from 100 to 125 mg/dL suggests IMPAIRED HOMEOSTASIS per A.D.A. criteria. Potassium [Moles/Vol] 4.1 mmol/L 3.5-5.1 [facility] Protein [Mass/Vol] 6.9 g/dL 6.4-8.2 [facility] Sodium [Moles/Vol] 135 mmol/L 136-145 [facility] WBC (Bld) [#/Vol] 5.8 10*3/uL 4.4-11.0 [facility] Blood erythrocytes count (nu mber/volume)Ordered By: Hortensia Unger on 05-09-2022 RBC (Bld) [#/Vol] 4.41 10*6/uL 4.2-5.4 [facility] Blood hemoglobin measurement (mass/volume)Ordered By: Hortensia Unger on 05-09-2022 Hemoglobin (Bld) [Mass/Vol] 13.4 g/dL 12.0-15.0 [facility] Blood platelet mean volumeOr dered By: Hortensia Unger on 05-09-2022 Platelet mean volume (Bld) [Entitic vol] 10.5 fL 6.2-12.0 [facility] Determination of erythrocyte mean corpuscular volume (MCV)Ordered By: Hortensia Unger on 05-09-2022 MCV (RBC) [Entitic vol] 93.0 fL 81-[address] [facility] Hematocrit Auto (Bld) [Volum e fraction]Ordered By: Hortensia Unger on 05-09-2022 Hematocrit (Bld) [Volume fraction] 41.0 % 37-47 [facility] INR in Blood by Coagulation assayOrdered By: Hortensia Unger on 05-09-2022 INR Coag (Bld) [Relative time] 1.8 {INR} [facility] Laboratory - Chemistry and C hemistry - challengeOrdered By: Hortensia Unger on 05-09-2022 ALP [Catalytic activity/Vol] 61 U/L 45-117 [facility] ALT [Catalytic activity/Vol] 29 U/L 13-56 [facility] CO2 [Moles/Vol] 32.0 mmol/L 21.0-32.0 [facility] Globulin (S) [Mass/Vol] 3.7 g/dL 2.2-4.[address] [facility] Urea nitrogen/Creatinine [Mass ratio] 15.6 mg/mg 10-20 [facility] Laboratory - CoagulationOrde red By: Hortensia Unger on 05-09-2022 PT Coag (PPP) [Time] 20.3 s 11.7-14.9 [facility] [place] Laboratory - Hematology and Cell countsOrdered By: Hortensia Unger on 05-09-2022 Erythrocyte distribution width (RBC) [Entitic vol] 42.8 fL 35.1-43.9 [facility] Erythrocyte distribution width (RBC) [Ratio] 12.4 % 11.6-14.6 [facility] MCH (RBC) [Entitic mass] 30.4 pg 27.0-32.0 [facility] MCHC Auto (RBC) [Mass/Vol]Or dered By: Hortensia Unger on 05-09-2022 MCHC (RBC) [Mass/Vol] 32.7 g/dL 32-36 [facility] No Panel InformationOrdered By: Hortensia Unger on 05-09-2022 Estimated GFR (MDRD) Amer 92 mL/min >60 [facility] Comment on above: GFR Calc Estimated GFR (MDRD) Non-Af Amer 76 mL/min >60 [facility] Comment on above: Non- GFR Calc Platelets bldOrdered By: Hortensia Unger on 05-09-2022 Platelets (Bld) [#/Vol] 257 10*3/uL 150-450 [facility] Serum or plasma albumin josué urement (mass/volume)Ordered By: Hortensia Unger on 05-09-2022 Albumin [Mass/Vol] 3.2 g/dL 3.2-5.0 [facility] Serum or plasma albumin/glob ulin mass ratioOrdered By: Hortensia Unger on 05-09-2022 Albumin/Globulin [Mass ratio] 0.9 {ratio} 0.9-2.4 [facility] Serum or plasma calcium josué urement (mass/volume)Ordered By: Hortensia Unger on 05-09-2022 Calcium [Mass/Vol] 8.8 mg/dL 8.5-10.1 [facility] Serum or plasma creatinine m easurement (mass/volume)Ordered By: Hortensia Unger on 05-09-2022 Creatinine [Mass/Vol] 0.77 mg/dL 0.55-1.02 [facility] Comment on above: The validity of the calculated GFR & GFRAA in patients over 70 years has not been determined. Clinical correlation is essential. Serum or plasma urea nitroge n measurement (mass/volume)Ordered By: Hortensia Unger on 05-09-2022 Urea nitrogen [Mass/Vol] 12 mg/dL 7-18 [facility] Thin prep Papanicolaou smear with manual screeningOrdered By: Hortensia Unger on 05-09-2022 Thin prep Papanicolaou smear with manual screening 23 U/L 15-37 [facility] Thin prep Papanicolaou smear with manual screening 4 5-15 [facility] Basophil percentageOrdered B y: Hortensia Unger on 04-07-2022 Bilirubin [Mass/Vol] 0.50 mg/dL 0.20-1.00 [facility] [place] Comment on above: For patients on eltr ombopag therapy, use of Dimension [place] TBIL is not recommended. Chloride [Moles/Vol] 99 mmol/L 98-107 [facility] [place] Glucose [Mass/Vol] 100 mg/dL 74-106 [facility] Comment on above: Fasting Glucose resu lt from 100 to 125 mg/dL suggests IMPAIRED HOMEOSTASIS per A.D.A. criteria. Potassium [Moles/Vol] 3.8 mmol/L 3.5-5.1 [facility] Protein [Mass/Vol] 6.4 g/dL 6.4-8.2 [facility] Sodium [Moles/Vol] 136 mmol/L 136-145 [facility] WBC (Bld) [#/Vol] 5.5 10*3/uL 4.4-11.0 [facility] Blood erythrocytes count (nu mber/volume)Ordered By: Hortensia Unger on 04-07-2022 RBC (Bld) [#/Vol] 4.14 10*6/uL 4.2-5.4 [facility] Blood hemoglobin measurement (mass/volume)Ordered By: Hortensia Unger on 04-07-2022 Hemoglobin (Bld) [Mass/Vol] 13.0 g/dL 12.0-15.0 [facility] Blood platelet mean volumeOr dered By: Hortensia Unger on 04-07-2022 Platelet mean volume (Bld) [Entitic vol] 10.0 fL 6.2-12.0 [facility] Determination of erythrocyte mean corpuscular volume (MCV)Ordered By: Hortensia Unger on 04-07-2022 MCV (RBC) [Entitic vol] 92.0 fL 81-[address] [facility] Hematocrit Auto (Bld) [Volum e fraction]Ordered By: Hortensia Unger on 04-07-2022 Hematocrit (Bld) [Volume fraction] 38.1 % 37-47 [facility] INR in Blood by Coagulation assayOrdered By: Hortensia Unger on 04-07-2022 INR Coag (Bld) [Relative time] 2.0 {INR} [facility] Laboratory - Chemistry and C hemistry - challengeOrdered By: Hortensia Unger on 04-07-2022 ALP [Catalytic activity/Vol] 58 U/L 45-117 [facility] ALT [Catalytic activity/Vol] 18 U/L 13-56 [facility] CO2 [Moles/Vol] 29.0 mmol/L 21.0-32.0 [facility] Globulin (S) [Mass/Vol] 3.4 g/dL 2.2-4.[address] [facility] Urea nitrogen/Creatinine [Mass ratio] 13.1 mg/mg 10-20 [facility] Laboratory - CoagulationOrde red By: Hortensia Unger on 04-07-2022 PT Coag (PPP) [Time] 22.6 s 11.7-14.9 [facility] [place] Laboratory - Hematology and Cell countsOrdered By: Hortensia Unger on 04-07-2022 Erythrocyte distribution width (RBC) [Entitic vol] 42.2 fL 35.1-43.9 [facility] Erythrocyte distribution width (RBC) [Ratio] 12.6 % 11.6-14.6 [facility] MCH (RBC) [Entitic mass] 31.4 pg 27.0-32.0 [facility] MCHC Auto (RBC) [Mass/Vol]Or dered By: Hortensia Unger on 04-07-2022 MCHC (RBC) [Mass/Vol] 34.1 g/dL 32-36 [facility] No Panel InformationOrdered By: Hortensia Unger on 04-07-2022 Estimated GFR (MDRD) Amer 104 mL/min >60 [facility] Comment on above: GFR Calc Estimated GFR (MDRD) Non-Af Amer 86 mL/min >60 [facility] Comment on above: Non- GFR Calc Platelets bldOrdered By: Hortensia Unger on 04-07-2022 Platelets (Bld) [#/Vol] 219 10*3/uL 150-450 [facility] Serum or plasma albumin josué urement (mass/volume)Ordered By: Hortensia Unger on 04-07-2022 Albumin [Mass/Vol] 3.0 g/dL 3.2-5.0 [facility] Serum or plasma albumin/glob ulin mass ratioOrdered By: Hortensia Unger on 04-07-2022 Albumin/Globulin [Mass ratio] 0.9 {ratio} 0.9-2.4 [facility] Serum or plasma calcium josué urement (mass/volume)Ordered By: Hortensia Unger on 04-07-2022 Calcium [Mass/Vol] 8.7 mg/dL 8.5-10.1 [facility] Serum or plasma creatinine m easurement (mass/volume)Ordered By: Hortensia Unger on 04-07-2022 Creatinine [Mass/Vol] 0.69 mg/dL 0.55-1.02 [facility] Comment on above: The validity of the calculated GFR & GFRAA in patients over 70 years has not been determined. Clinical correlation is essential. Serum or plasma urea nitroge n measurement (mass/volume)Ordered By: Hortensia Unger on 04-07-2022 Urea nitrogen [Mass/Vol] 9 mg/dL 7-18 [facility] Thin prep Papanicolaou smear with manual screeningOrdered By: Hortensia Unger on 04-07-2022 Thin prep Papanicolaou smear with manual screening 17 U/L 15-37 [facility] Thin prep Papanicolaou smear with manual screening 8 5-15 [facility] Culture, urineOrdered By: Isacc Unger on 03-28-2022 Bacteria identified Cx Nom (U) Culture exhibits no growth. [facility] Basophil percentageOrdered B y: Hortensia Unger on 03-26-2022 Basophil percentage 0 SEEN /hpf 0-5 [facility] [place] Bilirubin Test strip Ql (U)O rdered By: Hortensia Unger on 03-26-2022 Bilirubin Ql (U) Negative Negative [facility] Ketones Test strip Ql (U)Ord ered By: Hortensia Unger on 03-26-2022 Ketones Ql (U) Negative Negative [facility] Mucus LM Ql (Urine sed)Order ed By: Hortensia Unger on 03-26-2022 Mucus Ql (Urine sed) 0 SEEN /hpf [facility] Nitrite Test strip Ql (U)Ord ered By: Hortensia Unger on 03-26-2022 Nitrite Ql (U) Negative Negative [facility] Protein Test strip Ql (U)Ord ered By: Hortensia Unger on 03-26-2022 Protein Ql (U) Negative Negative [facility] Squamous epithelial cells de tection in urine sediment by light microscopyOrdered By: Hortensia Unger on 03-26-2022 Epithelial cells.squamous LM Ql (Urine sed) 0 SEEN /hpf 5-10 [facility] Urine blood detectionOrdered By: Hortensia Unger on 03-26-2022 RBC Ql (U) 10 /ul Negative [facility] RBC Ql (U) 0 SEEN /hpf 0-5 [facility] Urine clarityOrdered By: Hortensia Unger on 03-26-2022 Clarity (U) Clear Clear [facility] Urine color determinationOrd ered By: Hortensia Unger on 03-26-2022 Color (U) Yellow Yellow [facility] Urine glucose detectionOrder ed By: Hortensia Unger on 03-26-2022 Glucose Ql (U) Normal mg/dl Normal [facility] Urine leukocyte esterase det ection by dipstickOrdered By: Hortensia Unger on 03-26-2022 Leukocyte esterase Test strip Ql (U) Negative Negative [facility] Urine pHOrdered By: Hortensia Szymanski iff on 03-26-2022 pH (U) 6.5 [pH] 5.0 - 8.0 [facility] Urine sediment bacteria coun t by microscopy (number/high power field)Ordered By: Hortensia Unger on 03-26-2022 Bacteria LM.HPF (Urine sed) [#/Area] 0 /[HPF] None Seen [facility] Urine specific gravity measu rementOrdered By: Hortensia Unger on 03-26-2022 Specific gravity (U) [Rel density] 1.015 1.002-1.030 [facility] Urobilinogen Auto test strip Ql (U)Ordered By: Hortensia Unger on 03-26-2022 Urobilinogen Ql (U) Normal mg/dl Normal [facility] Culture, urineOrdered By: Isacc Unger on 03-17-2022 Bacteria identified Cx Nom (U) Staphylococcus epidermidis [facility] Laboratory - CoagulationOrde red By: Hortensia Unger on 03-16-2022 INR Coag (Bld) [Relative time] 2.2 {INR} [facility] Comment on above: Critical Value > 4.0 Whole blood prothrombin time Ordered By: Hortensia Unger on 03-16-2022 PT Coag (Bld) [Time] 26.0 s 11.7-14.9 [facility] [place] Bilirubin Test strip Ql (U)O rdered By: Hortensia Unger on 03-15-2022 Bilirubin Ql (U) Negative Negative [facility] Ketones Test strip Ql (U)Ord ered By: Hortensia Unger on 03-15-2022 Ketones Ql (U) Negative Negative [facility] Nitrite Test strip Ql (U)Ord ered By: Hortensia Unger on 03-15-2022 Nitrite Ql (U) Negative Negative [facility] Protein Test strip Ql (U)Ord ered By: Hortensia Unger on 03-15-2022 Protein Ql (U) Negative Negative [facility] Urine blood detectionOrdered By: Hortensia Unger on 03-15-2022 RBC Ql (U) Negative Negative [facility] Urine clarityOrdered By: Hortensia Unger on 03-15-2022 Clarity (U) Clear Clear [facility] Urine color determinationOrd ered By: Hortensia Unger on 03-15-2022 Color (U) Yellow Yellow [facility] Urine glucose detectionOrder ed By: Hortensia Unger on 03-15-2022 Glucose Ql (U) Normal mg/dl Normal [facility] Urine leukocyte esterase det ection by dipstickOrdered By: Hortensia Unger on 03-15-2022 Leukocyte esterase Test strip Ql (U) Negative Negative [facility] Urine pHOrdered By: Hortensia noef on 03-15-2022 pH (U) 7.0 [pH] 5.0 - 8.0 [facility] Urine specific gravity measu rementOrdered By: Hortensia Unger on 03-15-2022 Specific gravity (U) [Rel density] 1.010 1.002-1.030 [facility] Urobilinogen Auto test strip Ql (U)Ordered By: Hortensia Unger on 03-15-2022 Urobilinogen Ql (U) Normal mg/dl Normal [facility] Laboratory - Microbiology an d Antimicrobial susceptibilityOrdered By: Dr. Rios on 03-13-2022 Bacteria identified Cx Nom (Bld) No growth in 5 days. [facility] Culture, urineOrdered By: Dr Jose Rios on 03-10-2022 Bacteria identified Cx Nom (U) Culture exhibits no growth. [facility] Absolute lymphocyte countOrd ered By: Dr. Rios on 03-07-2022 Lymphocytes Auto (Unsp spec) [#/Vol] 2.09 10*3/uL 0.83-4.51 [facility] Basophil percentageOrdered B y: Dr. Rios on 03-07-2022 Basophil percentage 0 SEEN /hpf 0-5 [facility] [place] Basophils/100 WBC (Bld) 0.2 % 0-1 [facility] Bilirubin [Mass/Vol] 0.60 mg/dL 0.20-1.00 [facility] [place] Comment on above: For patients on eltr ombopag therapy, use of Dimension [place] TBIL is not recommended. Chloride [Moles/Vol] 97 mmol/L 98-107 [facility] [place] Eosinophils/100 WBC (Bld) 1.0 % 0-5 [facility] Glucose [Mass/Vol] 122 mg/dL 74-106 [facility] Comment on above: Fasting Glucose resu lt from 100 to 125 mg/dL suggests IMPAIRED HOMEOSTASIS per A.D.A. criteria. Neutrophils (Bld) [#/Vol] 10.6 10*3/uL 2.0-7.7 [facility] Neutrophils/100 WBC (Bld) 73.9 % 47-70 [facility] Potassium [Moles/Vol] 3.6 mmol/L 3.5-5.1 [facility] Protein [Mass/Vol] 7.4 g/dL 6.4-8.2 [facility] Sodium [Moles/Vol] 134 mmol/L 136-145 [facility] WBC (Bld) [#/Vol] 14.3 10*3/uL 4.4-11.0 [facility] Basophil percentageOrdered B y: Hortensia Unger on 03-07-2022 Bilirubin [Mass/Vol] 0.70 mg/dL 0.20-1.00 [facility] [place] Comment on above: For patients on eltr ombopag therapy, use of Dimension [place] TBIL is not recommended. Chloride [Moles/Vol] 95 mmol/L 98-107 [facility] [place] Cholesterol [Mass/Vol] 119 mg/dL <[address] [facility] Comment on above: <200 mg/dL Desirable 200-240 mg/dL Borderline >240 mg/dL High Risk Glucose [Mass/Vol] 147 mg/dL 74-106 [facility] Comment on above: Fasting Glucose resu lt greater than or equal to 126 mg/dL suggests DIABETES MELLITUS per A.D.A. criteria. Potassium [Moles/Vol] 3.6 mmol/L 3.5-5.1 [facility] Protein [Mass/Vol] 7.5 g/dL 6.4-8.2 [facility] Sodium [Moles/Vol] 133 mmol/L 136-145 [facility] Triglyceride [Mass/Vol] 81 mg/dL <199 [facility] Comment on above: The drugs N-Acetylcy steine and Metamizole may falsely depress this assay.Serum Triglycerides Reference Interval Normal <150 mg/dL Borderline high 150 - 199 mg/dL High 200 - 499 mg/dL Very High > or = 500 mg/dL WBC (Bld) [#/Vol] 13.6 10*3/uL 4.4-11.0 [facility] Bilirubin Test strip Ql (U)O rdered By: Dr. Rios on 03-07-2022 Bilirubin Ql (U) Negative Negative [facility] Blood erythrocytes count (nu mber/volume)Ordered By: Dr. Rios on 03-07-2022 RBC (Bld) [#/Vol] 4.30 10*6/uL 4.2-5.4 [facility] Blood erythrocytes count (nu mber/volume)Ordered By: Hortensia Unger on 03-07-2022 RBC (Bld) [#/Vol] 4.37 10*6/uL 4.2-5.4 [facility] Blood hemoglobin measurement (mass/volume)Ordered By: Dr. Rios on 03-07-2022 Hemoglobin (Bld) [Mass/Vol] 13.5 g/dL 12.0-15.0 [facility] Blood hemoglobin measurement (mass/volume)Ordered By: Hortensia Unger on 03-07-2022 Hemoglobin (Bld) [Mass/Vol] 13.9 g/dL 12.0-15.0 [facility] Blood lymphocytes/100 leukoc ytesOrdered By: Dr. Rios on 03-07-2022 Lymphocytes/100 WBC (Bld) 14.7 % 19-41 [facility] Blood monocytes/100 leukocyt esOrdered By: Dr. Rios on 03-07-2022 Monocytes/100 WBC (Bld) 9.8 % 0-[address] [facility] Blood platelet mean volumeOr dered By: Dr. Rios on 03-07-2022 Platelet mean volume (Bld) [Entitic vol] 10.2 fL 6.2-12.0 [facility] Blood platelet mean volumeOr dered By: Hortensia Unger on 03-07-2022 Platelet mean volume (Bld) [Entitic vol] 10.6 fL 6.2-12.0 [facility] Determination of erythrocyte mean corpuscular volume (MCV)Ordered By: Dr. Rios on 03-07-2022 MCV (RBC) [Entitic vol] 91.2 fL 81-[address] [facility] Determination of erythrocyte mean corpuscular volume (MCV)Ordered By: Hortensia Unger on 03-07-2022 MCV (RBC) [Entitic vol] 93.4 fL 81-[address] [facility] Direct bilirubinOrdered By: Dr. Rios on 03-07-2022 Bilirubin.direct [Mass/Vol] 0.17 mg/dL 0.00-0.30 [facility] Hematocrit Auto (Bld) [Volum e fraction]Ordered By: Dr. Rios on 03-07-2022 Hematocrit (Bld) [Volume fraction] 39.2 % 37-47 [facility] Hematocrit Auto (Bld) [Volum e fraction]Ordered By: Hortensia Unger on 03-07-2022 Hematocrit (Bld) [Volume fraction] 40.8 % 37-47 [facility] INR in Blood by Coagulation assayOrdered By: Dr. Rios on 03-07-2022 INR Coag (Bld) [Relative time] 5.6 {INR} [facility] Comment on above: CRITICAL VALUE VERIF IED. CALLED TO BJ BENZ03/07/22 Zoe Nath.RESULTS READ BACK BY SAME . INR in Blood by Coagulation assayOrdered By: Hortensia Unger on 03-07-2022 INR Coag (Bld) [Relative time] 4.9 {INR} [facility] Comment on above: CRITICAL VALUE VERIF IED. CALLED TO KHRIS FLORIAN (ALICE)03/07/22 1009 [place].RESULTS READ BACK BY SAME. Influenza virus A and B and SARS-CoV-2 (COVID-19) Ag panel - Upper respiratory specimOrdered By: Dr. Rios on 03-07-2022 SARS-CoV-2 (COVID-19) RNA REMINGTON+probe Ql (Resp) [facility] Ketones Test strip Ql (U)Ord ered By: Dr. Rios on 03-07-2022 Ketones Ql (U) Negative Negative [facility] Laboratory - Chemistry and C hemistry - challengeOrdered By: Dr. Rios on 03-07-2022 ALP [Catalytic activity/Vol] 64 U/L - [facility] ALT [Catalytic activity/Vol] 17 U/L [facility] CO2 [Moles/Vol] 30.0 mmol/L 21.0-32.0 [facility] Globulin (S) [Mass/Vol] 4.1 g/dL 2.2-4.[address] [facility] Urea nitrogen/Creatinine [Mass ratio] 17.7 mg/mg 03-17 [facility] Laboratory - Chemistry and C hemistry - challengeOrdered By: Hortensia Unger on 03-07-2022 ALP [Catalytic activity/Vol] 74 U/L [facility] ALT [Catalytic activity/Vol] 22 U/L [facility] CO2 [Moles/Vol] 28.0 mmol/L 21.0-32.0 [facility] Globulin (S) [Mass/Vol] 4.3 g/dL 2.2-4.[address] [facility] Urea nitrogen/Creatinine [Mass ratio] 16.1 mg/mg 03-17 [facility] Laboratory - CoagulationOrde red By: Dr. Rios on 03-07-2022 PT Coag (PPP) [Time] 50.6 s 11.7-14.9 [facility] [place] Laboratory - CoagulationOrde red By: Hortensia Unger on 03-07-2022 PT Coag (PPP) [Time] 45.7 s 11.7-14.9 [facility] [place] Laboratory - Hematology and Cell countsOrdered By: Dr. Rios on 03-07-2022 Erythrocyte distribution width (RBC) [Entitic vol] 40.9 fL 35.1-43.9 [facility] Erythrocyte distribution width (RBC) [Ratio] 12.3 % 11.6-14.6 [facility] Immature granulocytes/100 WBC (Bld) 0.400 % 0.0-0.9 [facility] Comment on above: IG% - Immature Granu locytes (promyelocytes, myelocytes and metamyelocytes) > 1% indicates that a LEFT SHIFT is Present. MCH (RBC) [Entitic mass] 31.4 pg 27.0-32.0 [facility] Nucleated RBC/100 WBC (Bld) [Ratio] 0 % 0-5 [facility] Laboratory - Hematology and Cell countsOrdered By: Hortensia Unger on 03-07-2022 Erythrocyte distribution width (RBC) [Entitic vol] 42.1 fL 35.1-43.9 [facility] Erythrocyte distribution width (RBC) [Ratio] 12.2 % 11.6-14.6 [facility] MCH (RBC) [Entitic mass] 31.8 pg 27.0-32.0 [facility] MCHC Auto (RBC) [Mass/Vol]Or dered By: Dr. Rios on 03-07-2022 MCHC (RBC) [Mass/Vol] 34.4 g/dL 32-36 [facility] MCHC Auto (RBC) [Mass/Vol]Or dered By: Hortensia Unger on 03-07-2022 MCHC (RBC) [Mass/Vol] 34.1 g/dL 32-36 [facility] Mucus LM Ql (Urine sed)Order ed By: Dr. Rios on 03-07-2022 Mucus Ql (Urine sed) 0 SEEN /hpf [facility] Nitrite Test strip Ql (U)Ord ered By: Dr. Rios on 03-07-2022 Nitrite Ql (U) Negative Negative [facility] No Panel InformationOrdered By: Dr. Rios on 03-07-2022 Estimated Creatinine Clearance Calc 31.60 ml/min [facility] Estimated GFR (MDRD) Amer 97 mL/min >60 [facility] Comment on above: GFR Calc Estimated GFR (MDRD) Non-Af Amer 80 mL/min >60 [facility] Comment on above: Non- GFR Calc Troponin I High Sensitivity 9 pg/mL 3.0-54.0 [facility] Comment on above: Please Note: New Amber t Units and Gender Specific Reference Ranges. For more information see Policy Stat Procedure [place] High Sensitivity Troponin (TNIH) and attachments. No Panel InformationOrdered By: Hortensia Unger on 03-07-2022 Estimated GFR (MDRD) Amer 95 mL/min >60 [facility] Comment on above: GFR Calc Estimated GFR (MDRD) Non-Af Amer 79 mL/min >60 [facility] Comment on above: Non- GFR Calc Platelets bldOrdered By: Dr. Rios on 03-07-2022 Platelets (Bld) [#/Vol] 229 10*3/uL 150-450 [facility] Platelets bldOrdered By: Hortensia Unger on 03-07-2022 Platelets (Bld) [#/Vol] 223 10*3/uL 150-450 [facility] Protein Test strip Ql (U)Ord ered By: Dr. Rios on 03-07-2022 Protein Ql (U) Negative Negative [facility] Serum or plasma albumin josué urement (mass/volume)Ordered By: Dr. Rios on 03-07-2022 Albumin [Mass/Vol] 3.3 g/dL 3.2-5.0 [facility] Serum or plasma albumin josué urement (mass/volume)Ordered By: Hortensia Unger on 03-07-2022 Albumin [Mass/Vol] 3.2 g/dL 3.2-5.0 [facility] Serum or plasma albumin/glob ulin mass ratioOrdered By: Hortensia Unger on 03-07-2022 Albumin/Globulin [Mass ratio] 0.7 {ratio} 0.9-2.4 [facility] Serum or plasma calcium josué urement (mass/volume)Ordered By: Dr. Rios on 03-07-2022 Calcium [Mass/Vol] 9.0 mg/dL 8.5-10.1 [facility] Serum or plasma calcium josué urement (mass/volume)Ordered By: Hortensia Unger on 03-07-2022 Calcium [Mass/Vol] 8.9 mg/dL 8.5-10.1 [facility] Serum or plasma cholesterol in HDL measurement (mass/volume)Ordered By: Hortensia Unger on 03-07-2022 Cholesterol in HDL [Mass/Vol] 57 mg/dL >40 [facility] Comment on above: The drugs N-Acetylcy steine and Metamizole may falsely depress this assay. Reference Range HDL <40 mg/dL Low HDL Cholesterol HDL >or= 60 mg/dL High HDL Cholesterol Serum or plasma cholesterol in VLDL measurement (mass/volume)Ordered By: Hortensia Unger on 03-07-2022 Cholesterol in VLDL [Mass/Vol] 16 mg/dL 5-40 [facility] Serum or plasma creatinine m easurement (mass/volume)Ordered By: Dr. Rios on 03-07-2022 Creatinine [Mass/Vol] 0.73 mg/dL 0.55-1.02 [facility] Comment on above: The validity of the calculated GFR & GFRAA in patients over 70 years has not been determined. Clinical correlation is essential. Serum or plasma creatinine m easurement (mass/volume)Ordered By: Hortensia Unger on 03-07-2022 Creatinine [Mass/Vol] 0.75 mg/dL 0.55-1.02 [facility] Comment on above: The validity of the calculated GFR & GFRAA in patients over 70 years has not been determined. Clinical correlation is essential. Serum or plasma low density lipoprotein (LDL) cholesterol measurement (mass/volume)Ordered By: Hortensia Unger on 03-07-2022 Cholesterol in LDL [Mass/Vol] 46 mg/dL 0-130 [facility] Serum or plasma urea nitroge n measurement (mass/volume)Ordered By: Dr. Rios on 03-07-2022 Urea nitrogen [Mass/Vol] 13 mg/dL 7-18 [facility] Serum or plasma urea nitroge n measurement (mass/volume)Ordered By: Hortensia Unger on 03-07-2022 Urea nitrogen [Mass/Vol] 12 mg/dL 7-18 [facility] Squamous epithelial cells de tection in urine sediment by light microscopyOrdered By: Dr. Rios on 03-07-2022 Epithelial cells.squamous LM Ql (Urine sed) 0-5 SEEN /hpf 5-10 [facility] Thin prep Papanicolaou smear with manual screeningOrdered By: Dr. Rios on 03-07-2022 Thin prep Papanicolaou smear with manual screening 15 U/L 15- [facility] Thin prep Papanicolaou smear with manual screening 7 5-15 [facility] Thin prep Papanicolaou smear with manual screeningOrdered By: Hortensia Unger on 03-07-2022 Thin prep Papanicolaou smear with manual screening 20 U/L 15-37 [facility] Thin prep Papanicolaou smear with manual screening 10 5-15 [facility] Urine blood detectionOrdered By: Dr. Rios on 03-07-2022 RBC Ql (U) 25 /ul Negative [facility] RBC Ql (U) 5-10 SEEN /hpf 0-5 [facility] Urine clarityOrdered By: Dr. Rios on 03-07-2022 Clarity (U) Clear Clear [facility] Urine color determinationOrd ered By: Dr. Rios on 03-07-2022 Color (U) Yellow Yellow [facility] Urine glucose detectionOrder ed By: Dr. Rios on 03-07-2022 Glucose Ql (U) Normal mg/dl Normal [facility] Urine leukocyte esterase det ection by dipstickOrdered By: Dr. Rios on 03-07-2022 Leukocyte esterase Test strip Ql (U) Negative Negative [facility] Urine pHOrdered By: Dr. Ricky ortiz on 03-07-2022 pH (U) 6.5 [pH] 5.0 - 8.0 [facility] Urine sediment bacteria coun t by microscopy (number/high power field)Ordered By: Dr. Rios on 03-07-2022 Bacteria LM.HPF (Urine sed) [#/Area] RARE /hpf None Seen [facility] Urine specific gravity measu rementOrdered By: Dr. Rios on 03-07-2022 Specific gravity (U) [Rel density] 1.010 1.002-1.030 [facility] Urobilinogen Auto test strip Ql (U)Ordered By: Dr. Rios on 03-07-2022 Urobilinogen Ql (U) 1 mg/dl Normal [facility] Laboratory - Coagulationon 0 9-08-2022 INR Coag (Bld) [Relative time] 2.1 {INR} [facility] Work Phone: Comment on above: Critical Value > 4.0 Whole blood prothrombin time on 02-03-2022 PT Coag (Bld) [Time] 24.8 s 11.7-14.9 [facility] [place] Work Phone: Laboratory - Coagulationon 0 01-06-2022 INR Coag (Bld) [Relative time] 2.2 {INR} [facility] Work Phone: Comment on above: Critical Value > 4.0 Whole blood prothrombin time on 01-06-2022 PT Coag (Bld) [Time] 25.9 s 11.7-14.9 [facility] [place] Work Phone: Laboratory - Coagulationon 0 12-20-2021 INR Coag (Bld) [Relative time] 2.1 {INR} [facility] Work Phone: Comment on above: Critical Value > 4.0 Whole blood prothrombin time on 12-20-2021 PT Coag (Bld) [Time] 25.2 s 11.7-14.9 [facility] [place] Work Phone: Laboratory - Coagulationon 0 12-13-2021 INR Coag (Bld) [Relative time] 1.4 {INR} [facility] Work Phone: Comment on above: Critical Value > 4.0 Whole blood prothrombin time on 12-13-2021 PT Coag (Bld) [Time] 17.2 s 11.7-14.9 [facility] [place] Work Phone: Basophil percentageon 2021 Chloride [Moles/Vol] 98 mmol/L 98-107 [facility] [place] Work Phone: Cholesterol [Mass/Vol] 114 mg/dL <[address] [facility] Work Phone: Comment on above: <200 mg/dL Desirable 200-240 mg/dL Borderline >240 mg/dL High Risk Glucose [Mass/Vol] 111 mg/dL 74-106 [facility] Work Phone: Comment on above: Fasting Glucose resu lt from 100 to 125 mg/dL suggests IMPAIRED HOMEOSTASIS per A.D.A. criteria. Potassium [Moles/Vol] 3.7 mmol/L 3.5-5.1 [facility] Work Phone: Sodium [Moles/Vol] 135 mmol/L 136-145 [facility] Work Phone: Triglyceride [Mass/Vol] 61 mg/dL <[address] [facility] Work Phone: Comment on above: The drugs N-Acetylcy steine and Metamizole may falsely depress this assay.Serum Triglycerides Reference Interval Normal <150 mg/dL Borderline high 150 - 199 mg/dL High 200 - 499 mg/dL Very High > or = 500 mg/dL WBC (Bld) [#/Vol] 5.9 10*3/uL 4.4-11.0 [facility] Work Phone: Blood erythrocytes count (nu mber/volume)on 12-10-2021 RBC (Bld) [#/Vol] 3.91 10*6/uL 4.2-5.4 [facility] Work Phone: Blood hemoglobin measurement (mass/volume)on 12-10-2021 Hemoglobin (Bld) [Mass/Vol] 12.4 g/dL 12.0-15.0 [facility] Work Phone: Blood platelet mean volumeon 12-10-2021 Platelet mean volume (Bld) [Entitic vol] 10.3 fL 6.2-12.0 [facility] Work Phone: Determination of erythrocyte mean corpuscular volume (MCV)on 12-10-2021 MCV (RBC) [Entitic vol] 92.1 fL 81-[address] [facility] Work Phone: Hematocrit Auto (Bld) [Volum e fraction]on 12-10-2021 Hematocrit (Bld) [Volume fraction] 36.0 % 37-47 [facility] Work Phone: Laboratory - Chemistry and C hemistry - challengeon 12-10-2021 CO2 [Moles/Vol] 32.0 mmol/L 21.0-32.0 [facility] Work Phone: Urea nitrogen/Creatinine [Mass ratio] 18.8 mg/mg 10-20 [facility] Work Phone: Laboratory - Hematology and Cell countson 12-10-2021 Erythrocyte distribution width (RBC) [Entitic vol] 41.1 fL 35.1-43.9 [facility] Work Phone: Erythrocyte distribution width (RBC) [Ratio] 12.3 % 11.6-14.6 [facility] Work Phone: MCH (RBC) [Entitic mass] 31.7 pg 27.0-32.0 [facility] Work Phone: MCHC Auto (RBC) [Mass/Vol]on 12-10-2021 MCHC (RBC) [Mass/Vol] 34.4 g/dL 32-36 [facility] Work Phone: No Panel Informationon 12-10 Estimated GFR (MDRD) Amer 114 mL/min >60 [facility] Work Phone: Comment on above: GFR Calc Estimated GFR (MDRD) Non-Af Amer 94 mL/min >60 [facility] Work Phone: Comment on above: Non- GFR Calc Platelets bldon 12-10-2021 Platelets (Bld) [#/Vol] 206 10*3/uL 150-450 [facility] Work Phone: Serum or plasma calcium josué urement (mass/volume)on 12-10-2021 Calcium [Mass/Vol] 8.7 mg/dL 8.5-10.1 [facility] Work Phone: Serum or plasma cholesterol in HDL measurement (mass/volume)on 12-10-2021 Cholesterol in HDL [Mass/Vol] 48 mg/dL >40 [facility] Work Phone: Comment on above: The drugs N-Acetylcy steine and Metamizole may falsely depress this assay. Reference Range HDL <40 mg/dL Low HDL Cholesterol HDL >or= 60 mg/dL High HDL Cholesterol Serum or plasma cholesterol in VLDL measurement (mass/volume)on 12-10-2021 Cholesterol in VLDL [Mass/Vol] 12 mg/dL 5-40 [facility] Work Phone: Serum or plasma creatinine m easurement (mass/volume)on 12-10-2021 Creatinine [Mass/Vol] 0.64 mg/dL 0.55-1.02 [facility] Work Phone: Comment on above: The validity of the calculated GFR & GFRAA in patients over 70 years has not been determined. Clinical correlation is essential. Serum or plasma low density lipoprotein (LDL) cholesterol measurement (mass/volume)on 12-10-2021 Cholesterol in LDL [Mass/Vol] 54 mg/dL 0-130 [facility] Work Phone: Serum or plasma urea nitroge n measurement (mass/volume)on 12-10-2021 Urea nitrogen [Mass/Vol] 12 mg/dL 7-18 [facility] Work Phone: Thin prep Papanicolaou smear with manual screeningon 12-10-2021 Thin prep Papanicolaou smear with manual screening 5 5-15 [facility] Work Phone: Basophil percentageon 2021 Chloride [Moles/Vol] 96 mmol/L 98-107 [facility] [place] Work Phone: Glucose [Mass/Vol] 126 mg/dL 74-106 [facility] Work Phone: Comment on above: Fasting Glucose resu lt greater than or equal to 126 mg/dL suggests DIABETES MELLITUS per A.D.A. criteria. Potassium [Moles/Vol] 3.5 mmol/L 3.5-5.1 [facility] Work Phone: Sodium [Moles/Vol] 133 mmol/L 136-145 [facility] Work Phone: WBC (Bld) [#/Vol] 7.2 10*3/uL 4.4-11.0 [facility] Work Phone: Blood erythrocytes count (nu mber/volume)on 12-02-2021 RBC (Bld) [#/Vol] 4.59 10*6/uL 4.2-5.4 [facility] Work Phone: Blood hemoglobin measurement (mass/volume)on 12-02-2021 Hemoglobin (Bld) [Mass/Vol] 14.4 g/dL 12.0-15.0 [facility] Work Phone: Blood platelet mean volumeon 12-02-2021 Platelet mean volume (Bld) [Entitic vol] 10.6 fL 6.2-12.0 [facility] Work Phone: Determination of erythrocyte mean corpuscular volume (MCV)on 12-02-2021 MCV (RBC) [Entitic vol] 92.4 fL 81-[address] [facility] Work Phone: Hematocrit Auto (Bld) [Volum e fraction]on 12-02-2021 Hematocrit (Bld) [Volume fraction] 42.4 % 37-47 [facility] Work Phone: INR in Blood by Coagulation assayon 12-02-2021 INR Coag (Bld) [Relative time] 1.7 {INR} [facility] Work Phone: Laboratory - Chemistry and C hemistry - challengeon 12-02-2021 CO2 [Moles/Vol] 33.0 mmol/L 21.0-32.0 [facility] Work Phone: Urea nitrogen/Creatinine [Mass ratio] 17.2 mg/mg 10-20 [facility] Work Phone: Laboratory - Coagulationon 0 12-02-2021 PT Coag (PPP) [Time] 19.9 s 11.7-14.9 [facility] [place] Work Phone: Laboratory - Hematology and Cell countson 12-02-2021 Erythrocyte distribution width (RBC) [Entitic vol] 41.6 fL 35.1-43.9 [facility] Work Phone: Erythrocyte distribution width (RBC) [Ratio] 12.2 % 11.6-14.6 [facility] Work Phone: MCH (RBC) [Entitic mass] 31.4 pg 27.0-32.0 [facility] Work Phone: MCHC Auto (RBC) [Mass/Vol]on 12-02-2021 MCHC (RBC) [Mass/Vol] 34.0 g/dL 32-36 [facility] Work Phone: No Panel Informationon 12-02 Estimated GFR (MDRD) Amer 94 mL/min >60 [facility] Work Phone: Comment on above: GFR Calc Estimated GFR (MDRD) Non-Af Amer 78 mL/min >60 [facility] Work Phone: Comment on above: Non- GFR Calc Platelets bldon 12-02-2021 Platelets (Bld) [#/Vol] 248 10*3/uL 150-450 [facility] Work Phone: Serum or plasma calcium josué urement (mass/volume)on 12-02-2021 Calcium [Mass/Vol] 8.9 mg/dL 8.5-10.1 [facility] Work Phone: Serum or plasma creatinine m easurement (mass/volume)on 12-02-2021 Creatinine [Mass/Vol] 0.75 mg/dL 0.55-1.02 [facility] Work Phone: Comment on above: The validity of the calculated GFR & GFRAA in patients over 70 years has not been determined. Clinical correlation is essential. Serum or plasma urea nitroge n measurement (mass/volume)on 12-02-2021 Urea nitrogen [Mass/Vol] 13 mg/dL 7-18 [facility] Work Phone: Thin prep Papanicolaou smear with manual screeningon 12-02-2021 Thin prep Papanicolaou smear with manual screening 4 5-15 [facility] Work Phone: Basophil percentageon 2021 Chloride [Moles/Vol] 102 mmol/L 98-107 [facility] [place] Work Phone: Glucose [Mass/Vol] 110 mg/dL 74-106 [facility] Work Phone: Comment on above: Fasting Glucose resu lt from 100 to 125 mg/dL suggests IMPAIRED HOMEOSTASIS per A.D.A. criteria. Potassium [Moles/Vol] 4.7 mmol/L 3.5-5.1 [facility] Work Phone: Sodium [Moles/Vol] 136 mmol/L 136-145 [facility] Work Phone: WBC (Bld) [#/Vol] 6.5 10*3/uL 4.4-11.0 [facility] Work Phone: Blood erythrocytes count (nu mber/volume)on 11-25-2021 RBC (Bld) [#/Vol] 4.15 10*6/uL 4.2-5.4 [facility] Work Phone: Blood hemoglobin measurement (mass/volume)on 11-25-2021 Hemoglobin (Bld) [Mass/Vol] 13.0 g/dL 12.0-15.0 [facility] Work Phone: Blood platelet mean volumeon 11-25-2021 Platelet mean volume (Bld) [Entitic vol] 10.3 fL 6.2-12.0 [facility] Work Phone: Determination of erythrocyte mean corpuscular volume (MCV)on 11-25-2021 MCV (RBC) [Entitic vol] 91.6 fL 81-[address] [facility] Work Phone: Hematocrit Auto (Bld) [Volum e fraction]on 11-25-2021 Hematocrit (Bld) [Volume fraction] 38.0 % 37-47 [facility] Work Phone: Laboratory - Chemistry and C hemistry - challengeon 11-25-2021 CO2 [Moles/Vol] 30.0 mmol/L 21.0-32.0 [facility] Work Phone: Urea nitrogen/Creatinine [Mass ratio] 15.3 mg/mg 10-20 [facility] Work Phone: Laboratory - Hematology and Cell countson 11-25-2021 Erythrocyte distribution width (RBC) [Entitic vol] 41.4 fL 35.1-43.9 [facility] Work Phone: Erythrocyte distribution width (RBC) [Ratio] 12.4 % 11.6-14.6 [facility] Work Phone: MCH (RBC) [Entitic mass] 31.3 pg 27.0-32.0 [facility] Work Phone: MCHC Auto (RBC) [Mass/Vol]on 11-25-2021 MCHC (RBC) [Mass/Vol] 34.2 g/dL 32-36 [facility] Work Phone: No Panel Informationon 11-25 Estimated GFR (MDRD) Amer 99 mL/min >60 [facility] Work Phone: Comment on above: GFR Calc Estimated GFR (MDRD) Non-Af Amer 82 mL/min >60 [facility] Work Phone: Comment on above: Non- GFR Calc Platelets bldon 11-25-2021 Platelets (Bld) [#/Vol] 209 10*3/uL 150-450 [facility] Work Phone: Serum or plasma calcium josué urement (mass/volume)on 11-25-2021 Calcium [Mass/Vol] 8.8 mg/dL 8.5-10.1 [facility] Work Phone: Serum or plasma creatinine m easurement (mass/volume)on 11-25-2021 Creatinine [Mass/Vol] 0.72 mg/dL 0.55-1.02 [facility] Work Phone: Comment on above: The validity of the calculated GFR & GFRAA in patients over 70 years has not been determined. Clinical correlation is essential. Serum or plasma urea nitroge n measurement (mass/volume)on 11-25-2021 Urea nitrogen [Mass/Vol] 11 mg/dL 7-18 [facility] Work Phone: Thin prep Papanicolaou smear with manual screeningon 11-25-2021 Thin prep Papanicolaou smear with manual screening 4 5-15 [facility] Work Phone: Basophil percentageon 2021 Chloride [Moles/Vol] 98 mmol/L 98-107 [facility] [place] Work Phone: Glucose [Mass/Vol] 112 mg/dL 74-106 [facility] Work Phone: Comment on above: Fasting Glucose resu lt from 100 to 125 mg/dL suggests IMPAIRED HOMEOSTASIS per A.D.A. criteria. Potassium [Moles/Vol] 4.9 mmol/L 3.5-5.1 [facility] Work Phone: Sodium [Moles/Vol] 133 mmol/L 136-145 [facility] Work Phone: Laboratory - Chemistry and C hemistry - challengeon 11-23-2021 CO2 [Moles/Vol] 30.0 mmol/L 21.0-32.0 [facility] Work Phone: Urea nitrogen/Creatinine [Mass ratio] 15.5 mg/mg 10-20 [facility] Work Phone: No Panel Informationon 11-23 Estimated GFR (MDRD) Amer 101 mL/min >60 [facility] Work Phone: Comment on above: GFR Calc Estimated GFR (MDRD) Non-Af Amer 84 mL/min >60 [facility] Work Phone: Comment on above: Non- GFR Calc Serum or plasma calcium josué urement (mass/volume)on 11-23-2021 Calcium [Mass/Vol] 9.3 mg/dL 8.5-10.1 [facility] Work Phone: Serum or plasma creatinine m easurement (mass/volume)on 11-23-2021 Creatinine [Mass/Vol] 0.71 mg/dL 0.55-1.02 [facility] Work Phone: Comment on above: The validity of the calculated GFR & GFRAA in patients over 70 years has not been determined. Clinical correlation is essential. Serum or plasma urea nitroge n measurement (mass/volume)on 11-23-2021 Urea nitrogen [Mass/Vol] 11 mg/dL 7-18 [facility] Work Phone: Thin prep Papanicolaou smear with manual screeningon 11-23-2021 Thin prep Papanicolaou smear with manual screening 5 5-15 [facility] Work Phone: Basophil percentageon 2021 Chloride [Moles/Vol] 97 mmol/L 98-107 [facility] [facility] [place] Work Phone: Glucose [Mass/Vol] 99 mg/dL 74-106 [facility] Work Phone: Potassium [Moles/Vol] 4.2 mmol/L 3.5-5.1 [facility] Work Phone: Sodium [Moles/Vol] 132 mmol/L 136-145 [facility] Work Phone: WBC (Bld) [#/Vol] 6.8 10*3/uL 4.4-11.0 [facility] Work Phone: Blood erythrocytes count (nu mber/volume)on 11-18-2021 RBC (Bld) [#/Vol] 4.12 10*6/uL 4.2-5.4 [facility] Work Phone: Blood hemoglobin measurement (mass/volume)on 11-18-2021 Hemoglobin (Bld) [Mass/Vol] 12.8 g/dL 12.0-15.0 [facility] Work Phone: Blood platelet mean volumeon 11-18-2021 Platelet mean volume (Bld) [Entitic vol] 10.5 fL 6.2-12.0 [facility] Work Phone: Determination of erythrocyte mean corpuscular volume (MCV)on 11-18-2021 MCV (RBC) [Entitic vol] 92.5 fL 81-[address] [facility] Work Phone: Hematocrit Auto (Bld) [Volum e fraction]on 11-18-2021 Hematocrit (Bld) [Volume fraction] 38.1 % 37-47 [facility] Work Phone: Laboratory - Chemistry and C hemistry - challengeon 11-18-2021 CO2 [Moles/Vol] 30.0 mmol/L 21.0-32.0 [facility] Work Phone: Urea nitrogen/Creatinine [Mass ratio] 21.1 mg/mg 10-20 [facility] Work Phone: Laboratory - Hematology and Cell countson 11-18-2021 Erythrocyte distribution width (RBC) [Entitic vol] 41.6 fL 35.1-43.9 [facility] Work Phone: Erythrocyte distribution width (RBC) [Ratio] 12.3 % 11.6-14.6 [facility] Work Phone: MCH (RBC) [Entitic mass] 31.1 pg 27.0-32.0 [facility] Work Phone: MCHC Auto (RBC) [Mass/Vol]on 11-18-2021 MCHC (RBC) [Mass/Vol] 33.6 g/dL 32-36 [facility] Work Phone: No Panel Informationon 11-18 Estimated GFR (MDRD) Amer 94 mL/min >60 [facility] Work Phone: Comment on above: GFR Calc Estimated GFR (MDRD) Non-Af Amer 77 mL/min >60 [facility] Work Phone: Comment on above: Non- GFR Calc Platelets bldon 11-18-2021 Platelets (Bld) [#/Vol] 220 10*3/uL 150-450 [facility] Work Phone: Serum or plasma calcium josué urement (mass/volume)on 11-18-2021 Calcium [Mass/Vol] 8.8 mg/dL 8.5-10.1 [facility] Work Phone: Serum or plasma creatinine m easurement (mass/volume)on 11-18-2021 Creatinine [Mass/Vol] 0.76 mg/dL 0.55-1.02 [facility] Work Phone: Comment on above: The validity of the calculated GFR & GFRAA in patients over 70 years has not been determined. Clinical correlation is essential. Serum or plasma urea nitroge n measurement (mass/volume)on 11-18-2021 Urea nitrogen [Mass/Vol] 16 mg/dL 7-18 [facility] Work Phone: Thin prep Papanicolaou smear with manual screeningon 11-18-2021 Thin prep Papanicolaou smear with manual screening 5 5-15 [facility] Work Phone: Absolute lymphocyte counton 11-12-2021 Lymphocytes Auto (Unsp spec) [#/Vol] 1.86 10*3/uL 0.83-4.51 [facility] Work Phone: [phone] Basophil percentageon 2021 Basophils/100 WBC (Bld) 0.6 % 0-[address] [facility] Work Phone: Chloride [Moles/Vol] 104 mmol/L 98-107 [facility] [place] Work Phone: Eosinophils/100 WBC (Bld) 3.9 % 0-5 [facility] Work Phone: Glucose [Mass/Vol] 103 mg/dL 74-106 [facility] Work Phone: Comment on above: Fasting Glucose resu lt from 100 to 125 mg/dL suggests IMPAIRED HOMEOSTASIS per A.D.A. criteria. Neutrophils (Bld) [#/Vol] 3.7 10*3/uL 2.0-7.7 [facility] Work Phone: Neutrophils/100 WBC (Bld) 56.9 % 47-70 [facility] Work Phone: Potassium [Moles/Vol] 4.1 mmol/L 3.5-5.1 [facility] Work Phone: Sodium [Moles/Vol] 137 mmol/L 136-145 [facility] Work Phone: WBC (Bld) [#/Vol] 6.4 10*3/uL 4.4-11.0 [facility] Work Phone: Blood erythrocytes count (nu mber/volume)on 11-12-2021 RBC (Bld) [#/Vol] 3.99 10*6/uL 4.2-5.4 [facility] Work Phone: Blood hemoglobin measurement (mass/volume)on 11-12-2021 Hemoglobin (Bld) [Mass/Vol] 12.5 g/dL 12.0-15.0 [facility] Work Phone: Blood lymphocytes/100 leukoc yteson 11-12-2021 Lymphocytes/100 WBC (Bld) 29.0 % 19-41 [facility] Work Phone: [phone] Blood monocytes/100 leukocyt eson 11-12-2021 Monocytes/100 WBC (Bld) 9.4 % 0-[address] [facility] Work Phone: Blood platelet mean volumeon 11-12-2021 Platelet mean volume (Bld) [Entitic vol] 10.1 fL 6.2-12.0 [facility] Work Phone: Determination of erythrocyte mean corpuscular volume (MCV)on 11-12-2021 MCV (RBC) [Entitic vol] 93.7 fL 81-[address] [facility] Work Phone: Hematocrit Auto (Bld) [Volum e fraction]on 11-12-2021 Hematocrit (Bld) [Volume fraction] 37.4 % 37-47 [facility] Work Phone: Laboratory - Chemistry and C hemistry - challengeon 11-12-2021 CO2 [Moles/Vol] 30.0 mmol/L 21.0-32.0 [facility] Work Phone: Urea nitrogen/Creatinine [Mass ratio] 21.6 mg/mg 10-20 [facility] Work Phone: Laboratory - Hematology and Cell countson 11-12-2021 Erythrocyte distribution width (RBC) [Entitic vol] 41.7 fL 35.1-43.9 [facility] Work Phone: Erythrocyte distribution width (RBC) [Ratio] 12.0 % 11.6-14.6 [facility] Work Phone: Immature granulocytes/100 WBC (Bld) 0.200 % 0.0-0.9 [facility] Work Phone: Comment on above: IG% - Immature Granu locytes (promyelocytes, myelocytes and metamyelocytes) > 1% indicates that a LEFT SHIFT is Present. MCH (RBC) [Entitic mass] 31.3 pg 27.0-32.0 [facility] Work Phone: Nucleated RBC/100 WBC (Bld) [Ratio] 0 % 0-5 [facility] Work Phone: MCHC Auto (RBC) [Mass/Vol]on 11-12-2021 MCHC (RBC) [Mass/Vol] 33.4 g/dL 32-36 [facility] Work Phone: No Panel Informationon 11-12 Estimated Creatinine Clearance Calc 30.08 ml/min [facility] Work Phone: Estimated GFR (MDRD) Amer 122 mL/min >60 [facility] Work Phone: Comment on above: GFR Calc Estimated GFR (MDRD) Non-Af Amer 101 mL/min >60 [facility] Work Phone: Comment on above: Non- GFR Calc Platelets bldon 11-12-2021 Platelets (Bld) [#/Vol] 204 10*3/uL 150-450 [facility] Work Phone: Serum or plasma calcium josué urement (mass/volume)on 11-12-2021 Calcium [Mass/Vol] 8.6 mg/dL 8.5-10.1 [facility] Work Phone: Serum or plasma creatinine m easurement (mass/volume)on 11-12-2021 Creatinine [Mass/Vol] 0.60 mg/dL 0.55-1.02 [facility] Work Phone: Comment on above: The validity of the calculated GFR & GFRAA in patients over 70 years has not been determined. Clinical correlation is essential. Serum or plasma urea nitroge n measurement (mass/volume)on 11-12-2021 Urea nitrogen [Mass/Vol] 13 mg/dL 7-18 [facility] Work Phone: Thin prep Papanicolaou smear with manual screeningon 11-12-2021 Thin prep Papanicolaou smear with manual screening 3 5-15 [facility] Work Phone: INR in Blood by Coagulation assayon 11-11-2021 INR Coag (Bld) [Relative time] 2.3 {INR} [facility] Work Phone: Laboratory - Coagulationon 0 11-11-2021 PT Coag (PPP) [Time] 24.6 s 11.7-14.9 [facility] [place] Work Phone: INR in Blood by Coagulation assayon 11-08-2021 INR Coag (Bld) [Relative time] 3.0 {INR} [facility] Work Phone: Laboratory - Coagulationon 0 11-08-2021 PT Coag (PPP) [Time] 30.5 s 11.7-14.9 [facility] [place] Work Phone: Basophil percentageon 2021 Chloride [Moles/Vol] 106 mmol/L 98-107 [facility] [place] Work Phone: Glucose [Mass/Vol] 107 mg/dL 74-106 [facility] Work Phone: Comment on above: Fasting Glucose resu lt from 100 to 125 mg/dL suggests IMPAIRED HOMEOSTASIS per A.D.A. criteria. Potassium [Moles/Vol] 4.0 mmol/L 3.5-5.1 [facility] Work Phone: Sodium [Moles/Vol] 139 mmol/L 136-145 [facility] Work Phone: Laboratory - Chemistry and C hemistry - challengeon 11-07-2021 CO2 [Moles/Vol] 30.0 mmol/L 21.0-32.0 [facility] Work Phone: Urea nitrogen/Creatinine [Mass ratio] 22.2 mg/mg 10-20 [facility] Work Phone: No Panel Informationon 11-07 Estimated Creatinine Clearance Calc 30.08 ml/min [facility] Work Phone: Estimated GFR (MDRD) Amer 116 mL/min >60 [facility] Work Phone: Comment on above: GFR Calc Estimated GFR (MDRD) Non-Af Amer 96 mL/min >60 [facility] Work Phone: Comment on above: Non- GFR Calc Serum or plasma calcium josué urement (mass/volume)on 11-07-2021 Calcium [Mass/Vol] 8.9 mg/dL 8.5-10.1 [facility] Work Phone: Serum or plasma creatinine m easurement (mass/volume)on 11-07-2021 Creatinine [Mass/Vol] 0.63 mg/dL 0.55-1.02 [facility] Work Phone: Comment on above: The validity of the calculated GFR & GFRAA in patients over 70 years has not been determined. Clinical correlation is essential. Serum or plasma urea nitroge n measurement (mass/volume)on 11-07-2021 Urea nitrogen [Mass/Vol] 14 mg/dL 7-18 [facility] Work Phone: Thin prep Papanicolaou smear with manual screeningon 11-07-2021 Thin prep Papanicolaou smear with manual screening 3 5-15 [facility] Work Phone: Absolute lymphocyte counton 11-05-2021 Lymphocytes Auto (Unsp spec) [#/Vol] 2.23 10*3/uL 0.83-4.51 [facility] Work Phone: Basophil percentageon 2021 Basophils/100 WBC (Bld) 0.7 % 0-[address] [facility] Work Phone: Eosinophils/100 WBC (Bld) 2.6 % 0-5 [facility] Work Phone: Neutrophils (Bld) [#/Vol] 3.9 10*3/uL 2.0-7.7 [facility] Work Phone: Neutrophils/100 WBC (Bld) 56.0 % 47-70 [facility] Work Phone: WBC (Bld) [#/Vol] 7.0 10*3/uL 4.4-11.0 [facility] Work Phone: Blood erythrocytes count (nu mber/volume)on 11-05-2021 RBC (Bld) [#/Vol] 4.10 10*6/uL 4.2-5.4 [facility] Work Phone: Blood hemoglobin measurement (mass/volume)on 11-05-2021 Hemoglobin (Bld) [Mass/Vol] 12.8 g/dL 12.0-15.0 [facility] Work Phone: Blood lymphocytes/100 leukoc yteson 11-05-2021 Lymphocytes/100 WBC (Bld) 31.9 % 19-41 [facility] Work Phone: Blood monocytes/100 leukocyt eson 11-05-2021 Monocytes/100 WBC (Bld) 8.4 % 0-[address] [facility] Work Phone: Blood platelet mean volumeon 11-05-2021 Platelet mean volume (Bld) [Entitic vol] 10.1 fL 6.2-12.0 [facility] Work Phone: Determination of erythrocyte mean corpuscular volume (MCV)on 11-05-2021 MCV (RBC) [Entitic vol] 91.5 fL 81-[address] [facility] Work Phone: Hematocrit Auto (Bld) [Volum e fraction]on 11-05-2021 Hematocrit (Bld) [Volume fraction] 37.5 % 37-47 [facility] Work Phone: Laboratory - Hematology and Cell countson 11-05-2021 Erythrocyte distribution width (RBC) [Entitic vol] 41.1 fL 35.1-43.9 [facility] Work Phone: Erythrocyte distribution width (RBC) [Ratio] 12.4 % 11.6-14.6 [facility] Work Phone: Immature granulocytes/100 WBC (Bld) 0.400 % 0.0-0.9 [facility] Work Phone: Comment on above: IG% - Immature Granu locytes (promyelocytes, myelocytes and metamyelocytes) > 1% indicates that a LEFT SHIFT is Present. MCH (RBC) [Entitic mass] 31.2 pg 27.0-32.0 [facility] Work Phone: Nucleated RBC/100 WBC (Bld) [Ratio] 0 % 0-5 [facility] Work Phone: MCHC Auto (RBC) [Mass/Vol]on 11-05-2021 MCHC (RBC) [Mass/Vol] 34.1 g/dL 32-36 [facility] Work Phone: Platelets bldon 11-05-2021 Platelets (Bld) [#/Vol] 211 10*3/uL 150-450 [facility] Work Phone: Basophil percentageon 2021 Chloride [Moles/Vol] 105 mmol/L 98-107 [facility] [place] Work Phone: Glucose [Mass/Vol] 106 mg/dL 74-106 [facility] Work Phone: Comment on above: Fasting Glucose resu lt from 100 to 125 mg/dL suggests IMPAIRED HOMEOSTASIS per A.D.A. criteria. Potassium [Moles/Vol] 3.5 mmol/L 3.5-5.1 [facility] Work Phone: Sodium [Moles/Vol] 137 mmol/L 136-145 [facility] Work Phone: Laboratory - Chemistry and C hemistry - challengeon 11-04-2021 CO2 [Moles/Vol] 26.0 mmol/L 21.0-32.0 [facility] Work Phone: Urea nitrogen/Creatinine [Mass ratio] 17.1 mg/mg 10-20 [facility] Work Phone: No Panel Informationon 11-04 Estimated Creatinine Clearance Calc 30.08 ml/min [facility] Work Phone: Estimated GFR (MDRD) Amer 126 mL/min >60 [facility] Work Phone: Comment on above: GFR Calc Estimated GFR (MDRD) Non-Af Amer 104 mL/min >60 [facility] Work Phone: Comment on above: Non- GFR Calc Serum or plasma calcium josué urement (mass/volume)on 11-04-2021 Calcium [Mass/Vol] 8.7 mg/dL 8.5-10.1 [facility] Work Phone: Serum or plasma creatinine m easurement (mass/volume)on 06-09-2022 Creatinine [Mass/Vol] 0.58 mg/dL 0.55-1.02 [facility] Work Phone: Comment on above: The validity of the calculated GFR & GFRAA in patients over 70 years has not been determined. Clinical correlation is essential. Serum or plasma urea nitroge n measurement (mass/volume)on 11-04-2021 Urea nitrogen [Mass/Vol] 10 mg/dL 7-18 [facility] Work Phone: Thin prep Papanicolaou smear with manual screeningon 11-04-2021 Thin prep Papanicolaou smear with manual screening 6 5-15 [facility] Work Phone: Absolute lymphocyte counton 11-03-2021 Lymphocytes Auto (Unsp spec) [#/Vol] 1.58 10*3/uL 0.83-4.51 [facility] Work Phone: Basophil percentageon 2021 Basophils/100 WBC (Bld) 0.6 % 0-[address] [facility] Work Phone: Eosinophils/100 WBC (Bld) 1.7 % 0-5 [facility] Work Phone: [phone] Neutrophils (Bld) [#/Vol] 4.2 10*3/uL 2.0-7.7 [facility] Work Phone: Neutrophils/100 WBC (Bld) 63.5 % 47-70 [facility] Work Phone: WBC (Bld) [#/Vol] 6.6 10*3/uL 4.4-11.0 [facility] Work Phone: Blood erythrocytes count (nu mber/volume)on 11-03-2021 RBC (Bld) [#/Vol] 4.46 10*6/uL 4.2-5.4 [facility] Work Phone: Blood hemoglobin measurement (mass/volume)on 11-03-2021 Hemoglobin (Bld) [Mass/Vol] 13.8 g/dL 12.0-15.0 [facility] Work Phone: Blood lymphocytes/100 leukoc yteson 11-03-2021 Lymphocytes/100 WBC (Bld) 23.8 % 19-41 [facility] Work Phone: Blood monocytes/100 leukocyt eson 11-03-2021 Monocytes/100 WBC (Bld) 10.1 % 0-[address] [facility] Work Phone: Blood platelet mean volumeon 11-03-2021 Platelet mean volume (Bld) [Entitic vol] 10.4 fL 6.2-12.0 [facility] Work Phone: Determination of erythrocyte mean corpuscular volume (MCV)on 11-03-2021 MCV (RBC) [Entitic vol] 90.4 fL 81-[address] [facility] Work Phone: Hematocrit Auto (Bld) [Volum e fraction]on 11-03-2021 Hematocrit (Bld) [Volume fraction] 40.3 % 37-47 [facility] Work Phone: INR in Blood by Coagulation assayon 11-03-2021 INR Coag (Bld) [Relative time] 2.5 {INR} [facility] Work Phone: Laboratory - Coagulationon 0 11-03-2021 PT Coag (PPP) [Time] 26.7 s 11.7-14.9 [facility] [place] Work Phone: Laboratory - Hematology and Cell countson 11-03-2021 Erythrocyte distribution width (RBC) [Entitic vol] 39.0 fL 35.1-43.9 [facility] Work Phone: Erythrocyte distribution width (RBC) [Ratio] 11.9 % 11.6-14.6 [facility] Work Phone: Immature granulocytes/100 WBC (Bld) 0.300 % 0.0-0.9 [facility] Work Phone: Comment on above: IG% - Immature Granu locytes (promyelocytes, myelocytes and metamyelocytes) > 1% indicates that a LEFT SHIFT is Present. MCH (RBC) [Entitic mass] 30.9 pg 27.0-32.0 [facility] Work Phone: Nucleated RBC/100 WBC (Bld) [Ratio] 0 % 0-5 [facility] Work Phone: MCHC Auto (RBC) [Mass/Vol]on 11-03-2021 MCHC (RBC) [Mass/Vol] 34.2 g/dL 32-36 [facility] Work Phone: Platelets bldon 11-03-2021 Platelets (Bld) [#/Vol] 188 10*3/uL 150-450 [facility] Work Phone: Absolute lymphocyte counton 11-02-2021 Lymphocytes Auto (Unsp spec) [#/Vol] 1.37 10*3/uL 0.83-4.51 [facility] Work Phone: Basophil percentageon 2021 Basophil percentage 0 SEEN /hpf 0-5 [facility] [place] Work Phone: Basophils/100 WBC (Bld) 0.4 % 0-[address] [facility] Work Phone: Chloride [Moles/Vol] 92 mmol/L 98-107 [facility] [place] Work Phone: Eosinophils/100 WBC (Bld) 0.3 % 0-5 [facility] Work Phone: Glucose [Mass/Vol] 182 mg/dL 74-106 [facility] Work Phone: Comment on above: Fasting Glucose resu lt greater than or equal to 126 mg/dL suggests DIABETES MELLITUS per A.D.A. criteria. Neutrophils (Bld) [#/Vol] 6.0 10*3/uL 2.0-7.7 [facility] Work Phone: Neutrophils/100 WBC (Bld) 75.5 % 47-70 [facility] Work Phone: [phone] Potassium [Moles/Vol] 3.2 mmol/L 3.5-5.1 [facility] Work Phone: Sodium [Moles/Vol] 129 mmol/L 136-145 [facility] Work Phone: WBC (Bld) [#/Vol] 7.9 10*3/uL 4.4-11.0 [facility] Work Phone: Bilirubin Test strip Ql (U)o n 11-02-2021 Bilirubin Ql (U) Negative Negative [facility] Work Phone: Blood erythrocytes count (nu mber/volume)on 11-02-2021 RBC (Bld) [#/Vol] 4.51 10*6/uL 4.2-5.4 [facility] Work Phone: Blood hemoglobin measurement (mass/volume)on 11-02-2021 Hemoglobin (Bld) [Mass/Vol] 14.1 g/dL 12.0-15.0 [facility] Work Phone: Blood lymphocytes/100 leukoc yteson 11-02-2021 Lymphocytes/100 WBC (Bld) 17.4 % 19-41 [facility] Work Phone: Blood monocytes/100 leukocyt eson 11-02-2021 Monocytes/100 WBC (Bld) 6.1 % 0-[address] [facility] Work Phone: Blood platelet mean volumeon 11-02-2021 Platelet mean volume (Bld) [Entitic vol] 10.1 fL 6.2-12.0 [facility] Work Phone: Determination of erythrocyte mean corpuscular volume (MCV)on 11-02-2021 MCV (RBC) [Entitic vol] 89.1 fL 81-[address] [facility] Work Phone: Hematocrit Auto (Bld) [Volum e fraction]on 11-02-2021 Hematocrit (Bld) [Volume fraction] 40.2 % 37-47 [facility] Work Phone: INR in Blood by Coagulation assayon 11-02-2021 INR Coag (Bld) [Relative time] 2.2 {INR} [facility] Work Phone: Ketones Test strip Ql (U)on 11-02-2021 Ketones Ql (U) 5 mg/dl Negative [facility] Work Phone: Laboratory - Chemistry and C hemistry - challengeon 11-02-2021 Sodium (U) [Moles/Vol] 35 mmol/L Not Establ. [facility] Work Phone: CO2 [Moles/Vol] 30.0 mmol/L 21.0-32.0 [facility] Work Phone: Urea nitrogen/Creatinine [Mass ratio] 18.4 mg/mg 10-20 [facility] Work Phone: Laboratory - Coagulationon 0 11-02-2021 PT Coag (PPP) [Time] 23.8 s 11.7-14.9 [facility] [place] Work Phone: Laboratory - Hematology and Cell countson 11-02-2021 Erythrocyte distribution width (RBC) [Entitic vol] 37.6 fL 35.1-43.9 [facility] Work Phone: Erythrocyte distribution width (RBC) [Ratio] 11.7 % 11.6-14.6 [facility] Work Phone: Immature granulocytes/100 WBC (Bld) 0.300 % 0.0-0.9 [facility] Work Phone: Comment on above: IG% - Immature Granu locytes (promyelocytes, myelocytes and metamyelocytes) > 1% indicates that a LEFT SHIFT is Present. MCH (RBC) [Entitic mass] 31.3 pg 27.0-32.0 [facility] Work Phone: Nucleated RBC/100 WBC (Bld) [Ratio] 0 % 0-5 [facility] Work Phone: MCHC Auto (RBC) [Mass/Vol]on 11-02-2021 MCHC (RBC) [Mass/Vol] 35.1 g/dL 32-36 [facility] Work Phone: Mucus LM Ql (Urine sed)on Mucus Ql (Urine sed) 0 SEEN /hpf [facility] Work Phone: Nitrite Test strip Ql (U)on 11-02-2021 Nitrite Ql (U) Negative Negative [facility] Work Phone: No Panel Informationon 11-02 Estimated Creatinine Clearance Calc 36.68 ml/min [facility] Work Phone: Estimated GFR (MDRD) Amer 86 mL/min >60 [facility] Work Phone: Comment on above: GFR Calc Estimated GFR (MDRD) Non-Af Amer 71 mL/min >60 [facility] Work Phone: Comment on above: Non- GFR Calc Troponin I High Sensitivity 12 pg/mL 3.0-54.0 [facility] Work Phone: Comment on above: Please Note: New Amber t Units and Gender Specific Reference Ranges. For more information see Policy Stat Procedure [place] High Sensitivity Troponin (TNIH) and attachments. Platelets bldon 11-02-2021 Platelets (Bld) [#/Vol] 222 10*3/uL 150-450 [facility] Work Phone: Protein Test strip Ql (U)on 11-02-2021 Protein Ql (U) Negative Negative [facility] Work Phone: Serum or plasma calcium josué urement (mass/volume)on 11-02-2021 Calcium [Mass/Vol] 9.1 mg/dL 8.5-10.1 [facility] Work Phone: Serum or plasma creatinine m easurement (mass/volume)on 11-02-2021 Creatinine [Mass/Vol] 0.82 mg/dL 0.55-1.02 [facility] Work Phone: Comment on above: The validity of the calculated GFR & GFRAA in patients over 70 years has not been determined. Clinical correlation is essential. Serum or plasma urea nitroge n measurement (mass/volume)on 11-02-2021 Urea nitrogen [Mass/Vol] 15 mg/dL 7-18 [facility] Work Phone: Squamous epithelial cells de tection in urine sediment by light microscopyon 11-02-2021 Epithelial cells.squamous LM Ql (Urine sed) 0-5 SEEN /hpf 5-10 [facility] Work Phone: Thin prep Papanicolaou smear with manual screeningon 11-02-2021 Thin prep Papanicolaou smear with manual screening 275 mOsm/KG 280-301 [facility] Work Phone: Thin prep Papanicolaou smear with manual screening 7 5-15 [facility] Work Phone: Urine blood detectionon 0 RBC Ql (U) 25 /ul Negative [facility] Work Phone: RBC Ql (U) 0-5 SEEN /hpf 0-5 [facility] Work Phone: Urine clarityon 11-02-2021 Clarity (U) Clear Clear [facility] Work Phone: Urine color determinationon 11-02-2021 Color (U) Yellow Yellow [facility] Work Phone: Urine glucose detectionon Glucose Ql (U) Normal mg/dl Normal [facility] Work Phone: Urine leukocyte esterase det ection by dipstickon 11-02-2021 Leukocyte esterase Test strip Ql (U) Negative Negative [facility] Work Phone: Urine osmolality measurement on 11-02-2021 Osmolality (U) [Osmolality] 253 mOsm/KG >50 [facility] Work Phone: Comment on above: Normal Urine Referen ce Ranges Random: 50 - 1200 mOsm/kg H20 depending on fluid intake Random: >850 mOsm/kg after 12 hour fluid restriction 24 hour: ~300 - 900 mOsm/kg H2O Urine pHon 11-02-2021 pH (U) 6.0 [pH] 5.0 - 8.0 [facility] Work Phone: Urine sediment bacteria coun t by microscopy (number/high power field)on 11-02-2021 Bacteria LM.HPF (Urine sed) [#/Area] 0 /[HPF] None Seen [facility] Work Phone: Urine specific gravity measu rementon 11-02-2021 Specific gravity (U) [Rel density] 1.015 1.002-1.030 [facility] Work Phone: Urobilinogen Auto test strip Ql (U)on 11-02-2021 Urobilinogen Ql (U) Normal mg/dl Normal [facility] Work Phone: Basophil percentageon 2021 Chloride [Moles/Vol] 99 mmol/L 98-107 [facility] [place] Work Phone: Glucose [Mass/Vol] 108 mg/dL 74-106 [facility] Work Phone: Comment on above: Fasting Glucose resu lt from 100 to 125 mg/dL suggests IMPAIRED HOMEOSTASIS per A.D.A. criteria. Potassium [Moles/Vol] 4.2 mmol/L 3.5-5.1 [facility] Work Phone: Sodium [Moles/Vol] 137 mmol/L 136-145 [facility] Work Phone: INR in Blood by Coagulation assayon 10-21-2021 INR Coag (Bld) [Relative time] 2.1 {INR} [facility] Work Phone: Laboratory - Chemistry and C hemistry - challengeon 10-21-2021 CO2 [Moles/Vol] 34.0 mmol/L 21.0-32.0 [facility] Work Phone: Urea nitrogen/Creatinine [Mass ratio] 19.7 mg/mg 10-20 [facility] Work Phone: Laboratory - Coagulationon 0 10-21-2021 PT Coag (PPP) [Time] 23.2 s 11.7-14.9 [facility] [place] Work Phone: No Panel Informationon 10-21 Estimated GFR (MDRD) Amer 93 mL/min >60 [facility] Work Phone: Comment on above: GFR Calc Estimated GFR (MDRD) Non-Af Amer 77 mL/min >60 [facility] Work Phone: Comment on above: Non- GFR Calc Serum or plasma calcium josué urement (mass/volume)on 10-21-2021 Calcium [Mass/Vol] 9.1 mg/dL 8.5-10.1 [facility] Work Phone: Serum or plasma creatinine m easurement (mass/volume)on 10-21-2021 Creatinine [Mass/Vol] 0.76 mg/dL 0.55-1.02 [facility] Work Phone: Comment on above: The validity of the calculated GFR & GFRAA in patients over 70 years has not been determined. Clinical correlation is essential. Serum or plasma urea nitroge n measurement (mass/volume)on 10-21-2021 Urea nitrogen [Mass/Vol] 15 mg/dL 7 [facility] Work Phone: Thin prep Papanicolaou smear with manual screeningon 10-21-2021 Thin prep Papanicolaou smear with manual screening 4 5-15 [facility] Work Phone: INR in Blood by Coagulation assayon 10-13-2021 INR Coag (Bld) [Relative time] 3.1 {INR} [facility] Work Phone: Laboratory - Coagulationon 0 10-13-2021 PT Coag (PPP) [Time] 31.8 s 11.7-14.9 [facility] [place] Work Phone: Laboratory - Coagulationon 0 10-06-2021 INR Coag (Bld) [Relative time] 1.6 {INR} [facility] Work Phone: Comment on above: Critical Value > 4.0 Whole blood prothrombin time on 10-06-2021 PT Coag (Bld) [Time] 19.7 s 11.7-14.9 [facility] [place] Work Phone: Basophil percentageon 2021 Chloride [Moles/Vol] 100 mmol/L 98-107 [facility] [place] Work Phone: Glucose [Mass/Vol] 87 mg/dL 74-106 [facility] Work Phone: Potassium [Moles/Vol] 3.6 mmol/L 3.5-5.1 [facility] Work Phone: Sodium [Moles/Vol] 138 mmol/L 136-145 [facility] Work Phone: Laboratory - Chemistry and C hemistry - challengeon 09-29-2021 CO2 [Moles/Vol] 31.0 mmol/L 21.0-32.0 [facility] Work Phone: Natriuretic peptide B (Bld) [Mass/Vol] 372.7 pg/mL 0-100 [facility] Work Phone: Urea nitrogen/Creatinine [Mass ratio] 17.1 mg/mg 10-20 [facility] Work Phone: No Panel Informationon 09-29 Estimated GFR (MDRD) Amer 113 mL/min >60 [facility] Work Phone: Comment on above: GFR Calc Estimated GFR (MDRD) Non-Af Amer 94 mL/min >60 [facility] Work Phone: Comment on above: Non- GFR Calc Serum or plasma calcium josué urement (mass/volume)on 09-29-2021 Calcium [Mass/Vol] 8.7 mg/dL 8.5-10.1 [facility] Work Phone: Serum or plasma creatinine m easurement (mass/volume)on 09-29-2021 Creatinine [Mass/Vol] 0.64 mg/dL 0.55-1.02 [facility] Work Phone: Comment on above: The validity of the calculated GFR & GFRAA in patients over 70 years has not been determined. Clinical correlation is essential. Serum or plasma urea nitroge n measurement (mass/volume)on 09-29-2021 Urea nitrogen [Mass/Vol] 11 mg/dL -18 [facility] Work Phone: Thin prep Papanicolaou smear with manual screeningon 09-29-2021 Thin prep Papanicolaou smear with manual screening 7 - [facility] Work Phone: Laboratory - Coagulationon 0 09-14-2021 INR Coag (Bld) [Relative time] 2.1 {INR} [facility] Work Phone: Comment on above: Critical Value > 4.0 Whole blood prothrombin time on 09-14-2021 PT Coag (Bld) [Time] 25.1 s 11.7-14.9 [facility] [place] Work Phone: Laboratory - Coagulationon 0 08-27-2021 INR Coag (Bld) [Relative time] 2.4 {INR} [facility] Work Phone: Comment on above: Critical Value > 4.0 Whole blood prothrombin time on 08-27-2021 PT Coag (Bld) [Time] 27.5 s 11.7-14.9 [facility] [place] Work Phone: Laboratory - Coagulationon 0 08-11-2021 INR Coag (Bld) [Relative time] 1.3 {INR} [facility] Work Phone: Comment on above: Critical Value > 4.0 Whole blood prothrombin time on 08-11-2021 PT Coag (Bld) [Time] 15.7 s 11.7-14.9 [facility] [place] Work Phone: Laboratory - Coagulationon 0 07-28-2021 INR Coag (Bld) [Relative time] 1.2 {INR} [facility] Work Phone: Comment on above: Critical Value > 4.0 Whole blood prothrombin time on 07-28-2021 PT Coag (Bld) [Time] 15.1 s 11.7-14.9 [facility] [place] Work Phone: Laboratory - Coagulationon 0 07-14-2021 INR Coag (Bld) [Relative time] 1.5 {INR} [facility] Work Phone: Comment on above: Critical Value > 4.0 Whole blood prothrombin time on 07-14-2021 PT Coag (Bld) [Time] 18.2 s 11.9-14.4 [facility] [place] Work Phone: Absolute lymphocyte counton 06-26-2021 Lymphocytes Auto (Unsp spec) [#/Vol] 2.42 10*3/uL 0.83-4.51 [facility] Work Phone: Basophil percentageon 2021 Basophils/100 WBC (Bld) 0.7 % 0-[address] [facility] Work Phone: Chloride [Moles/Vol] 105 mmol/L 98-107 [facility] [place] Work Phone: Eosinophils/100 WBC (Bld) 3.6 % 0-5 [facility] Work Phone: Glucose [Mass/Vol] 122 mg/dL 74-106 [facility] Work Phone: Comment on above: Fasting Glucose resu lt from 100 to 125 mg/dL suggests IMPAIRED HOMEOSTASIS per A.D.A. criteria. Neutrophils (Bld) [#/Vol] 5.0 10*3/uL 2.0-7.7 [facility] Work Phone: Neutrophils/100 WBC (Bld) 58.8 % 47-70 [facility] Work Phone: [phone] Potassium [Moles/Vol] 3.8 mmol/L 3.5-5.1 [facility] Work Phone: Sodium [Moles/Vol] 140 mmol/L 136-145 [facility] Work Phone: WBC (Bld) [#/Vol] 8.6 10*3/uL 4.4-11.0 [facility] Work Phone: Blood erythrocytes count (nu mber/volume)on 06-26-2021 RBC (Bld) [#/Vol] 5.15 10*6/uL 4.2-5.4 [facility] Work Phone: Blood hemoglobin measurement (mass/volume)on 06-26-2021 Hemoglobin (Bld) [Mass/Vol] 15.7 g/dL 12.0-15.0 [facility] Work Phone: Blood lymphocytes/100 leukoc yteson 06-26-2021 Lymphocytes/100 WBC (Bld) 28.3 % 19-41 [facility] Work Phone: Blood monocytes/100 leukocyt eson 06-26-2021 Monocytes/100 WBC (Bld) 8.4 % 0-[address] [facility] Work Phone: Blood platelet mean volumeon 06-26-2021 Platelet mean volume (Bld) [Entitic vol] 10.2 fL 6.2-12.0 [facility] Work Phone: Determination of erythrocyte mean corpuscular volume (MCV)on 06-26-2021 MCV (RBC) [Entitic vol] 94.0 fL 81-[address] [facility] Work Phone: Hematocrit Auto (Bld) [Volum e fraction]on 06-26-2021 Hematocrit (Bld) [Volume fraction] 48.4 % 37-47 [facility] Work Phone: Laboratory - Chemistry and C hemistry - challengeon 06-26-2021 CO2 [Moles/Vol] 32.0 mmol/L 21.0-32.0 [facility] Work Phone: Urea nitrogen/Creatinine [Mass ratio] 20.4 mg/mg 10-20 [facility] Work Phone: Laboratory - Hematology and Cell countson 06-26-2021 Erythrocyte distribution width (RBC) [Entitic vol] 43.7 fL 35.1-43.9 [facility] Work Phone: Erythrocyte distribution width (RBC) [Ratio] 12.7 % 11.6-14.6 [facility] Work Phone: Immature granulocytes/100 WBC (Bld) 0.200 % 0.0-0.9 [facility] Work Phone: Comment on above: IG% - Immature Granu locytes (promyelocytes, myelocytes and metamyelocytes) > 1% indicates that a LEFT SHIFT is Present. MCH (RBC) [Entitic mass] 30.5 pg 27.0-32.0 [facility] Work Phone: Nucleated RBC/100 WBC (Bld) [Ratio] 0 % 0-5 [facility] Work Phone: MCHC Auto (RBC) [Mass/Vol]on 06-26-2021 MCHC (RBC) [Mass/Vol] 32.4 g/dL 32-36 [facility] Work Phone: No Panel Informationon 06-26 Estimated Creatinine Clearance Calc 32.17 ml/min [facility] Work Phone: Estimated GFR (MDRD) Amer 114 mL/min >60 [facility] Work Phone: Comment on above: GFR Calc Estimated GFR (MDRD) Non-Af Amer 94 mL/min >60 [facility] Work Phone: Comment on above: Non- GFR Calc Platelets bldon 06-26-2021 Platelets (Bld) [#/Vol] 234 10*3/uL 150-450 [facility] Work Phone: Serum or plasma calcium josué urement (mass/volume)on 06-26-2021 Calcium [Mass/Vol] 8.6 mg/dL 8.5-10.1 [facility] Work Phone: Serum or plasma creatinine m easurement (mass/volume)on 06-26-2021 Creatinine [Mass/Vol] 0.64 mg/dL 0.55-1.02 [facility] Work Phone: Comment on above: The validity of the calculated GFR & GFRAA in patients over 70 years has not been determined. Clinical correlation is essential. Serum or plasma urea nitroge n measurement (mass/volume)on 06-26-2021 Urea nitrogen [Mass/Vol] 13 mg/dL 7-18 [facility] Work Phone: Thin prep Papanicolaou smear with manual screeningon 06-26-2021 Thin prep Papanicolaou smear with manual screening 3 5-15 [facility] Work Phone: INR in Blood by Coagulation assayon 06-24-2021 INR Coag (Bld) [Relative time] 1.4 {INR} [facility] Work Phone: Laboratory - Coagulationon 0 06-24-2021 PT Coag (PPP) [Time] 16.2 s 11.7-14.9 [facility] [place] Work Phone: No Panel Informationon 06-24 SARS-CoV-2 Antigen (Rapid) [facility] Work Phone: Absolute lymphocyte counton 06-18-2021 Lymphocytes Auto (Unsp spec) [#/Vol] 1.81 10*3/uL 0.83-4.51 [facility] Work Phone: Basophil percentageon 2021 Basophils/100 WBC (Bld) 0.5 % 0-[address] [facility] Work Phone: Chloride [Moles/Vol] 103 mmol/L 98-107 [facility] [place] Work Phone: Eosinophils/100 WBC (Bld) 4.1 % 0-5 [facility] Work Phone: Glucose [Mass/Vol] 127 mg/dL 74-106 [facility] Work Phone: Comment on above: Fasting Glucose resu lt greater than or equal to 126 mg/dL suggests DIABETES MELLITUS per A.D.A. criteria. Neutrophils (Bld) [#/Vol] 5.7 10*3/uL 2.0-7.7 [facility] Work Phone: Neutrophils/100 WBC (Bld) 66.6 % 47-70 [facility] Work Phone: Potassium [Moles/Vol] 3.7 mmol/L 3.5-5.1 [facility] Work Phone: Sodium [Moles/Vol] 136 mmol/L 136-145 [facility] Work Phone: WBC (Bld) [#/Vol] 8.5 10*3/uL 4.4-11.0 [facility] Work Phone: Blood erythrocytes count (nu mber/volume)on 06-18-2021 RBC (Bld) [#/Vol] 4.20 10*6/uL 4.2-5.4 [facility] Work Phone: Blood hemoglobin measurement (mass/volume)on 06-18-2021 Hemoglobin (Bld) [Mass/Vol] 13.0 g/dL 12.0-15.0 [facility] Work Phone: Blood lymphocytes/100 leukoc yteson 06-18-2021 Lymphocytes/100 WBC (Bld) 21.3 % 19-41 [facility] Work Phone: Blood monocytes/100 leukocyt eson 06-18-2021 Monocytes/100 WBC (Bld) 7.4 % 0-[address] [facility] Work Phone: Blood platelet mean volumeon 06-18-2021 Platelet mean volume (Bld) [Entitic vol] 10.5 fL 6.2-12.0 [facility] Work Phone: Determination of erythrocyte mean corpuscular volume (MCV)on 06-18-2021 MCV (RBC) [Entitic vol] 89.8 fL 81-[address] [facility] Work Phone: Hematocrit Auto (Bld) [Volum e fraction]on 06-18-2021 Hematocrit (Bld) [Volume fraction] 37.7 % 37-47 [facility] Work Phone: INR in Blood by Coagulation assayon 06-18-2021 INR Coag (Bld) [Relative time] 2.3 {INR} [facility] Work Phone: Laboratory - Chemistry and C hemistry - challengeon 06-18-2021 CO2 [Moles/Vol] 28.0 mmol/L 21.0-32.0 [facility] Work Phone: Urea nitrogen/Creatinine [Mass ratio] 23.0 mg/mg 10-20 [facility] Work Phone: Laboratory - Coagulationon 0 06-18-2021 PT Coag (PPP) [Time] 24.7 s 11.7-14.9 [facility] [place] Work Phone: Laboratory - Hematology and Cell countson 06-18-2021 Erythrocyte distribution width (RBC) [Entitic vol] 40.2 fL 35.1-43.9 [facility] Work Phone: Erythrocyte distribution width (RBC) [Ratio] 12.2 % 11.6-14.6 [facility] Work Phone: Immature granulocytes/100 WBC (Bld) 0.100 % 0.0-0.9 [facility] Work Phone: Comment on above: IG% - Immature Granu locytes (promyelocytes, myelocytes and metamyelocytes) > 1% indicates that a LEFT SHIFT is Present. MCH (RBC) [Entitic mass] 31.0 pg 27.0-32.0 [facility] Work Phone: Nucleated RBC/100 WBC (Bld) [Ratio] 0 % 0-5 [facility] Work Phone: MCHC Auto (RBC) [Mass/Vol]on 06-18-2021 MCHC (RBC) [Mass/Vol] 34.5 g/dL 32-36 [facility] Work Phone: No Panel Informationon 06-18 SARS-CoV-2 Antigen (Rapid) [facility] Work Phone: Estimated Creatinine Clearance Calc 32.17 ml/min [facility] Work Phone: Estimated GFR (MDRD) Amer 103 mL/min >60 [facility] Work Phone: Comment on above: GFR Calc Estimated GFR (MDRD) Non-Af Amer 85 mL/min >60 [facility] Work Phone: Comment on above: Non- GFR Calc Platelets bldon 06-18-2021 Platelets (Bld) [#/Vol] 180 10*3/uL 150-450 [facility] Work Phone: Serum or plasma calcium josué urement (mass/volume)on 06-18-2021 Calcium [Mass/Vol] 8.1 mg/dL 8.5-10.1 [facility] Work Phone: Serum or plasma creatinine m easurement (mass/volume)on 06-18-2021 Creatinine [Mass/Vol] 0.70 mg/dL 0.55-1.02 [facility] Work Phone: Comment on above: The validity of the calculated GFR & GFRAA in patients over 70 years has not been determined. Clinical correlation is essential. Serum or plasma urea nitroge n measurement (mass/volume)on 06-18-2021 Urea nitrogen [Mass/Vol] 16 mg/dL 7-18 [facility] Work Phone: Thin prep Papanicolaou smear with manual screeningon 06-18-2021 Thin prep Papanicolaou smear with manual screening 5 5-15 [facility] Work Phone: Basophil percentageon 2021 Bilirubin [Mass/Vol] 0.50 mg/dL 0.20-1.00 [facility] [place] Work Phone: Comment on above: For patients on eltr ombopag therapy, use of Dimension [place] TBIL is not recommended. Protein [Mass/Vol] 6.8 g/dL 6.4-8.2 [facility] Work Phone: Laboratory - Chemistry and C hemistry - challengeon 06-17-2021 ALP [Catalytic activity/Vol] 68 U/L 45-117 [facility] Work Phone: ALT [Catalytic activity/Vol] 24 U/L 13-56 [facility] Work Phone: Globulin (S) [Mass/Vol] 3.7 g/dL 2.2-4.[address] [facility] Work Phone: Serum or plasma albumin josué urement (mass/volume)on 06-17-2021 Albumin [Mass/Vol] 3.1 g/dL 3.2-5.0 [facility] Work Phone: Serum or plasma albumin/glob ulin mass ratioon 06-17-2021 Albumin/Globulin [Mass ratio] 0.8 {ratio} 0.9-2.4 [facility] Work Phone: Thin prep Papanicolaou smear with manual screeningon 06-17-2021 Thin prep Papanicolaou smear with manual screening 23 U/L 15-37 [facility] Work Phone: Laboratory - Coagulationon 0 06-10-2021 INR Coag (Bld) [Relative time] 2.0 {INR} [facility] Work Phone: Comment on above: Critical Value > 4.0 Whole blood prothrombin time on 06-10-2021 PT Coag (Bld) [Time] 22.8 s 11.9-14.4 [facility] [place] Work Phone: Laboratory - Coagulationon 1 07-13-2020 INR Coag (Bld) [Relative time] 1.9 {INR} [facility] Work Phone: Comment on above: Critical Value > 4.0 Whole blood prothrombin time on 05-12-2021 PT Coag (Bld) [Time] 22.0 s 11.9-14.4 [facility] [place] Work Phone: PROon 04-16-2019 INR Coag (PPP) [Relative time] 2.3 {INR} Normal [facility] ([place]) Comment on above: Order Comment: order ed secondary to warfarin order Result Comment: [employer] (CHEST, 1992, [id number]) recommended therapeutic range for oral anticoagulant therapy is: LOW RISK: Prophylaxis of venous thrombosis INR: 2.0-3.0 Treatment of pulmonary embolism 2.0-3.0 Prevention of systemic embolism 2.0-3.0 HIGH RISK: Mechanical prosthetic valves 2.5-3.5 Performed By: #### C BC, ADIFF, ANEU, PRO, CMP, GFR #### [address] [address] PT Coag (PPP) [Time] 26.9 s High 9.0-14.6 [facility] ([place]) Comment on above: Order Comment: order ed secondary to warfarin order Result Comment: Effe ctive 12/11/07, Protime results may be affected by some antibiotics (i.e. Ciprofloxacin, Azithromycin, Bactrim) which may potentiate the action of oral anticoagulants, with further increases in Protime/INR. Performed By: #### C BC, ADIFF, ANEU, PRO, CMP, GFR #### [address] [address] .Auto Diffon 04-15-2019 Ammonia (P) [Mass/Vol] 0.50 10 3/mcL Normal 0.09-1.40 [facility] ([place]) Comment on above: Performed By: #### C BC, ADIFF, ANEU, PRO, CMP, GFR #### [address] [address] Basophils (Bld) [#/Vol] 0.10 10 3/mcL Normal 0.00-0.27 [facility] ([place]) Comment on above: Performed By: #### C BC, ADIFF, ANEU, PRO, CMP, GFR #### [address] [address] Basophils/100 WBC (Bld) 0.8 % Normal 0.0-2.5 [facility] ([place]) Comment on above: Performed By: #### C BC, ADIFF, ANEU, PRO, CMP, GFR #### [address] [address] Eosinophils (Bld) [#/Vol] 0.40 10 3/mcL Normal 0.00-0.65 [facility] ([place]) Comment on above: Performed By: #### C BC, ADIFF, ANEU, PRO, CMP, GFR #### [address] [address] Eosinophils/100 WBC (Bld) 5.9 % Normal 0.0-6.0 [facility] ([place]) Comment on above: Performed By: #### C BC, ADIFF, ANEU, PRO, CMP, GFR #### [address] [address] Lymphocytes (Bld) [#/Vol] 2.40 10 3/mcL Normal 0.90-4.32 [facility] ([place]) Comment on above: Performed By: #### C BC, ADIFF, ANEU, PRO, CMP, GFR #### [address] [address] Lymphocytes/100 WBC (Bld) 34.4 % Normal 20.0-40.0 [facility] ([place]) Comment on above: Performed By: #### C BC, ADIFF, ANEU, PRO, CMP, GFR #### [address] [address] Monocytes/100 WBC (Bld) 6.5 % Normal 2.0-13.0 [facility] ([place]) Comment on above: Performed By: #### C BC, ADIFF, ANEU, PRO, CMP, GFR #### [address] [address] Neutrophils/100 WBC (Bld) 52.4 % Normal 50.0-75.0 [facility] ([place]) Comment on above: Performed By: #### C BC, ADIFF, ANEU, PRO, CMP, GFR #### [address] [address] .GFRon 04-15-2019 GFR >60 Normal [facility] ([place]) Comment on above: Result Comment: GFR Population [...] BC, ADIFF, ANEU, PRO, CMP, GFR #### [address] [address] GFR Non- >60 Normal [facility] ([place]) Comment on above: Result Comment: GFR Population [...] BC, ADIFF, ANEU, PRO, CMP, GFR #### [address] [address] .NEUABSon 04-15-2019 Neutrophils (Bld) [#/Vol] 3.60 10 3/mcL Normal 2.25-8.10 [facility] ([place]) Comment on above: Performed By: #### C BC, ADIFF, ANEU, PRO, CMP, GFR #### [address] [address] BMPon 04-15-2019 Creatinine [Mass/Vol] 0.64 mg/dL Normal 0.50-1.20 [facility] ([place]) Comment on above: Performed By: #### C BC, ADIFF, ANEU, PRO, CMP, GFR #### [place] [address] Urea nitrogen/Creatinine [Mass ratio] 17.2 ratio Normal 10.0-22.0 [facility] ([place]) Comment on above: Performed By: #### C BC, ADIFF, ANEU, PRO, CMP, GFR #### [place] [address] Calcium [Mass/Vol] 7.9 mg/dL Low 8.4-10.1 [facility] ([place]) Comment on above: Performed By: #### C BC, ADIFF, ANEU, PRO, CMP, GFR #### [place] [address] Chloride [Moles/Vol] 109 mmol/L Normal 98-110 [facility] ([place]) Comment on above: Performed By: #### C BC, ADIFF, ANEU, PRO, CMP, GFR #### [place] [id number] CO2 [Moles/Vol] 29 mmol/L Normal 22-32 [facility] ([place]) Comment on above: Performed By: #### C BC, ADIFF, ANEU, PRO, CMP, GFR #### [place] [id number] Electrolyte Balance 6.0 mEq/L Normal 4.0-15.0 [facility] ([place]) Comment on above: Performed By: #### C BC, ADIFF, ANEU, PRO, CMP, GFR #### [place] [id number] Glucose [Mass/Vol] 100 mg/dL Normal 82-115 [facility] ([place]) Comment on above: Performed By: #### C BC, ADIFF, ANEU, PRO, CMP, GFR #### [place] [id number] Potassium [Moles/Vol] 4.0 mmol/L Normal 3.5-5.0 [facility] ([place]) Comment on above: Performed By: #### C BC, ADIFF, ANEU, PRO, CMP, GFR #### [place] [id number] Sodium [Moles/Vol] 144 mmol/L Normal 136-145 [facility] ([place]) Comment on above: Performed By: #### C BC, ADIFF, ANEU, PRO, CMP, GFR #### [place] [address] Urea nitrogen [Mass/Vol] 11.0 mg/dL Normal 8.0-22.0 [facility] ([place]) Comment on above: Performed By: #### C BC, ADIFF, ANEU, PRO, CMP, GFR #### [place] [id number] CBCon 04-15-2019 Erythrocyte distribution width (RBC) [Ratio] 13.5 % Normal 11.5-15.5 [facility] ([place]) Comment on above: Performed By: #### C BC, ADIFF, ANEU, PRO, CMP, GFR #### [place] [id number] Hematocrit (Bld) [Volume fraction] 33.9 % Low 34.0-46.0 [facility] ([place]) Comment on above: Performed By: #### C BC, ADIFF, ANEU, PRO, CMP, GFR #### [place] [id number] Hemoglobin (Bld) [Mass/Vol] 11.6 G/dL Low 12.0-16.0 [facility] ([place]) Comment on above: Performed By: #### C BC, ADIFF, ANEU, PRO, CMP, GFR #### [place] [id number] MCH (RBC) [Entitic mass] 31.8 pg Normal 27.0-33.0 [facility] ([place]) Comment on above: Performed By: #### C BC, ADIFF, ANEU, PRO, CMP, GFR #### [place] [id number] MCHC (RBC) [Mass/Vol] 34.3 G/dL Normal 32.0-36.0 [facility] ([place]) Comment on above: Performed By: #### C BC, ADIFF, ANEU, PRO, CMP, GFR #### [place] [id number] MCV (RBC) [Entitic vol] 92.7 fL Normal 80.0-99.0 A [facility] ([place]) Comment on above: Performed By: #### C BC, ADIFF, ANEU, PRO, CMP, GFR #### [place] [id number] Platelet mean volume (Bld) [Entitic vol] 8.6 fL Normal 6.6-10.5 [facility] ([place]) Comment on above: Performed By: #### C BC, ADIFF, ANEU, PRO, CMP, GFR #### [place] [id number] Platelets (Bld) [#/Vol] 198 10 3/mcL Normal 150-450 [facility] ([place]) Comment on above: Performed By: #### C BC, ADIFF, ANEU, PRO, CMP, GFR #### [place] [id number] RBC (Bld) [#/Vol] 3.65 10 6/mcL Low 4.10-5.30 [facility] ([place]) Comment on above: Performed By: #### C BC, ADIFF, ANEU, PRO, CMP, GFR #### [place] [id number] WBC (Bld) [#/Vol] 6.90 10 3/mcL Normal 4.50-10.80 [facility] ([place]) Comment on above: Performed By: #### C BC, ADIFF, ANEU, PRO, CMP, GFR #### [place] [id number] MGon 04-15-2019 Magnesium [Mass/Vol] 2.2 mg/dL Normal 1.6-2.4 [facility] ([place]) Comment on above: Performed By: #### C BC, ADIFF, ANEU, PRO, CMP, GFR #### [address] [address] PROon 04-15-2019 INR Coag (PPP) [Relative time] 2.0 {INR} Normal [facility] ([place]) Comment on above: Order Comment: order ed secondary to warfarin order Result Comment: [employer] (CHEST, 1991, [id number]) recommended therapeutic range for oral anticoagulant therapy is: LOW RISK: Prophylaxis of venous thrombosis INR: 2.0-3.0 Treatment of pulmonary embolism 2.0-3.0 Prevention of systemic embolism 2.0-3.0 HIGH RISK: Mechanical prosthetic valves 2.5-3.5 Performed By: #### C BC, ADIFF, ANEU, PRO, CMP, GFR #### [address] [address] PT Coag (PPP) [Time] 23.4 s High 9.0-14.6 [facility] ([place]) Comment on above: Order Comment: order ed secondary to warfarin order Result Comment: Effe ctive 12/11/07, Protime results may be affected by some antibiotics (i.e. Ciprofloxacin, Azithromycin, Bactrim) which may potentiate the action of oral anticoagulants, with further increases in Protime/INR. Performed By: #### C BC, ADIFF, ANEU, PRO, CMP, GFR #### [address] [address] .Auto Diffon 04-14-2019 Ammonia (P) [Mass/Vol] 0.40 10 3/mcL Normal 0.09-1.40 [facility] ([place]) Comment on above: Performed By: #### C BC, ADIFF, ANEU, PRO, CMP, GFR #### [address] [address] Basophils (Bld) [#/Vol] 0.00 10 3/mcL Normal 0.00-0.27 [facility] ([place]) Comment on above: Performed By: #### C BC, ADIFF, ANEU, PRO, CMP, GFR #### [address] [address] Basophils/100 WBC (Bld) 0.6 % Normal 0.0-2.5 [facility] ([place]) Comment on above: Performed By: #### C BC, ADIFF, ANEU, PRO, CMP, GFR #### [address] [address] Eosinophils (Bld) [#/Vol] 0.30 10 3/mcL Normal 0.00-0.65 [facility] ([place]) Comment on above: Performed By: #### C BC, ADIFF, ANEU, PRO, CMP, GFR #### [address] [address] Eosinophils/100 WBC (Bld) 5.1 % Normal 0.0-6.0 [facility] ([place]) Comment on above: Performed By: #### C BC, ADIFF, ANEU, PRO, CMP, GFR #### [address] [address] Lymphocytes (Bld) [#/Vol] 2.30 10 3/mcL Normal 0.90-4.32 [facility] ([place]) Comment on above: Performed By: #### C BC, ADIFF, ANEU, PRO, CMP, GFR #### [address] [address] Lymphocytes/100 WBC (Bld) 35.3 % Normal 20.0-40.0 [facility] ([place]) Comment on above: Performed By: #### C BC, ADIFF, ANEU, PRO, CMP, GFR #### [address] [address] Monocytes/100 WBC (Bld) 6.9 % Normal 2.0-13.0 [facility] ([place]) Comment on above: Performed By: #### C BC, ADIFF, ANEU, PRO, CMP, GFR #### [address] [address] Neutrophils/100 WBC (Bld) 52.1 % Normal 50.0-75.0 [facility] ([place]) Comment on above: Performed By: #### C BC, ADIFF, ANEU, PRO, CMP, GFR #### [address] [address] .GFRon 04-14-2019 GFR >60 Normal [facility] ([place]) Comment on above: Result Comment: GFR Population [...] BC, ADIFF, ANEU, PRO, CMP, GFR #### [address] [address] GFR Non- >60 Normal [facility] ([place]) Comment on above: Result Comment: GFR Population [...] BC, ADIFF, ANEU, PRO, CMP, GFR #### [address] [address] .NEUABSon 04-14-2019 Neutrophils (Bld) [#/Vol] 3.30 10 3/mcL Normal 2.25-8.10 [facility] ([place]) Comment on above: Performed By: #### C BC, ADIFF, ANEU, PRO, CMP, GFR #### [address] [address] HbA1c (Bld) [Mass fraction] 6.1 % High 4.0-6.0 [facility] ([place]) Comment on above: Performed By: #### C BC, ADIFF, ANEU, PRO, CMP, GFR #### [place] [address] BMPon 04-14-2019 Calcium [Mass/Vol] 7.8 mg/dL Low 8.4-10.1 [facility] ([place]) Comment on above: Performed By: #### C BC, ADIFF, ANEU, PRO, CMP, GFR #### [place] [address] Chloride [Moles/Vol] 107 mmol/L Normal 98-110 [facility] ([place]) Comment on above: Performed By: #### C BC, ADIFF, ANEU, PRO, CMP, GFR #### [place] [id number] CO2 [Moles/Vol] 30 mmol/L Normal 22-32 [facility] ([place]) Comment on above: Performed By: #### C BC, ADIFF, ANEU, PRO, CMP, GFR #### [place] [address] Creatinine [Mass/Vol] 0.66 mg/dL Normal 0.50-1.20 [facility] ([place]) Comment on above: Performed By: #### C BC, ADIFF, ANEU, PRO, CMP, GFR #### [place] [address] Electrolyte Balance 5.0 mEq/L Normal 4.0-15.0 [facility] ([place]) Comment on above: Performed By: #### C BC, ADIFF, ANEU, PRO, CMP, GFR #### [place] [address] Glucose [Mass/Vol] 102 mg/dL Normal 82-115 [facility] ([place]) Comment on above: Performed By: #### C BC, ADIFF, ANEU, PRO, CMP, GFR #### [place] [address] Potassium [Moles/Vol] 3.9 mmol/L Normal 3.5-5.0 [facility] ([place]) Comment on above: Performed By: #### C BC, ADIFF, ANEU, PRO, CMP, GFR #### [place] [id number] Sodium [Moles/Vol] 142 mmol/L Normal 136-145 [facility] ([place]) Comment on above: Performed By: #### C BC, ADIFF, ANEU, PRO, CMP, GFR #### [place] [address] Urea nitrogen [Mass/Vol] 13.0 mg/dL Normal 8.0-22.0 [facility] ([place]) Comment on above: Performed By: #### C BC, ADIFF, ANEU, PRO, CMP, GFR #### [place] [address] Urea nitrogen/Creatinine [Mass ratio] 19.7 ratio Normal 10.0-22.0 [facility] ([place]) Comment on above: Performed By: #### C BC, ADIFF, ANEU, PRO, CMP, GFR #### [place] [id number] CBCon 04-14-2019 Erythrocyte distribution width (RBC) [Ratio] 13.1 % Normal 11.5-15.5 [facility] ([place]) Comment on above: Performed By: #### C BC, ADIFF, ANEU, PRO, CMP, GFR #### [place] [id number] Hematocrit (Bld) [Volume fraction] 33.9 % Low 34.0-46.0 [facility] ([place]) Comment on above: Performed By: #### C BC, ADIFF, ANEU, PRO, CMP, GFR #### [place] [id number] Hemoglobin (Bld) [Mass/Vol] 11.6 G/dL Low 12.0-16.0 [facility] ([place]) Comment on above: Performed By: #### C BC, ADIFF, ANEU, PRO, CMP, GFR #### [address] [address] MCH (RBC) [Entitic mass] 31.9 pg Normal 27.0-33.0 [facility] ([place]) Comment on above: Performed By: #### C BC, ADIFF, ANEU, PRO, CMP, GFR #### [place] [id number] MCHC (RBC) [Mass/Vol] 34.2 G/dL Normal 32.0-36.0 [facility] ([place]) Comment on above: Performed By: #### C BC, ADIFF, ANEU, PRO, CMP, GFR #### [place] [address] MCV (RBC) [Entitic vol] 93.4 fL Normal 80.0-99.0 [facility] ([place]) Comment on above: Performed By: #### C BC, ADIFF, ANEU, PRO, CMP, GFR #### [place] [id number] Platelet mean volume (Bld) [Entitic vol] 9.2 fL Normal 6.6-10.5 [facility] ([place]) Comment on above: Performed By: #### C BC, ADIFF, ANEU, PRO, CMP, GFR #### [place] [id number] Platelets (Bld) [#/Vol] 197 10 3/mcL Normal 150-450 [facility] ([place]) Comment on above: Performed By: #### C BC, ADIFF, ANEU, PRO, CMP, GFR #### [place] [id number] RBC (Bld) [#/Vol] 3.63 10 6/mcL Low 4.10-5.30 [facility] ([place]) Comment on above: Performed By: #### C BC, ADIFF, ANEU, PRO, CMP, GFR #### [place] [id number] WBC (Bld) [#/Vol] 6.40 10 3/mcL Normal 4.50-10.80 [facility] ([place]) Comment on above: Performed By: #### C BC, ADIFF, ANEU, PRO, CMP, GFR #### [address] [address] MGon 04-14-2019 Magnesium [Mass/Vol] 2.1 mg/dL Normal 1.6-2.4 [facility] ([place]) Comment on above: Performed By: #### C BC, ADIFF, ANEU, PRO, CMP, GFR #### [address] [address] PROon 04-14-2019 INR Coag (PPP) [Relative time] 1.8 {INR} Normal [facility] ([place]) Comment on above: Order Comment: order ed secondary to warfarin order Result Comment: [employer] (CHEST, 1992, 102:312S-25S) recommended therapeutic range for oral anticoagulant therapy is: LOW RISK: Prophylaxis of venous thrombosis INR: 2.0-3.0 Treatment of pulmonary embolism 2.0-3.0 Prevention of systemic embolism 2.0-3.0 HIGH RISK: Mechanical prosthetic valves 2.5-3.5 Performed By: #### C BC, ADIFF, ANEU, PRO, CMP, GFR #### [place] [id number] PT Coag (PPP) [Time] 21.7 s High 9.0-14.6 [facility] ([place]) Comment on above: Order Comment: order ed secondary to warfarin order Result Comment: Effe ctive 12/11/07, Protime results may be affected by some antibiotics (i.e. Ciprofloxacin, Azithromycin, Bactrim) which may potentiate the action of oral anticoagulants, with further increases in Protime/INR. Performed By: #### C BC, ADIFF, ANEU, PRO, CMP, GFR #### [address] [address] .Auto Diffon 04-13-2019 Ammonia (P) [Mass/Vol] 0.60 10 3/mcL Normal 0.09-1.40 [facility] ([place]) Comment on above: Performed By: #### C BC, ADIFF, ANEU, BMP, GFR, LIPID, TROPI #### [address] [address] Basophils (Bld) [#/Vol] 0.00 10 3/mcL Normal 0.00-0.27 [facility] ([place]) Comment on above: Performed By: #### C BC, ADIFF, ANEU, BMP, GFR, LIPID, TROPI #### [address] [address] Basophils/100 WBC (Bld) 0.6 % Normal 0.0-2.5 [facility] ([place]) Comment on above: Performed By: #### C BC, ADIFF, ANEU, BMP, GFR, LIPID, TROPI #### [address] [address] Eosinophils (Bld) [#/Vol] 0.30 10 3/mcL Normal 0.00-0.65 [facility] ([place]) Comment on above: Performed By: #### C BC, ADIFF, ANEU, BMP, GFR, LIPID, TROPI #### [address] [address] Eosinophils/100 WBC (Bld) 4.5 % Normal 0.0-6.0 [facility] ([place]) Comment on above: Performed By: #### C BC, ADIFF, ANEU, BMP, GFR, LIPID, TROPI #### [address] [address] Lymphocytes (Bld) [#/Vol] 2.60 10 3/mcL Normal 0.90-4.32 [facility] ([place]) Comment on above: Performed By: #### C BC, ADIFF, ANEU, BMP, GFR, LIPID, TROPI #### [address] [address] Lymphocytes/100 WBC (Bld) 34.8 % Normal 20.0-40.0 [facility] ([place]) Comment on above: Performed By: #### C BC, ADIFF, ANEU, BMP, GFR, LIPID, TROPI #### [address] [address] Monocytes/100 WBC (Bld) 7.5 % Normal 2.0-13.0 [facility] ([place]) Comment on above: Performed By: #### C BC, ADIFF, ANEU, BMP, GFR, LIPID, TROPI #### [address] [address] Neutrophils/100 WBC (Bld) 52.6 % Normal 50.0-75.0 [facility] ([place]) Comment on above: Performed By: #### C BC, ADIFF, ANEU, BMP, GFR, LIPID, TROPI #### [address] [address] .GFRon 04-13-2019 GFR Non- >60 Normal [facility] ([place]) Comment on above: Result Comment: GFR Population [...] BC, ADIFF, ANEU, PRO, CMP, GFR #### [address] [address] GFR >60 Normal [facility] ([place]) Comment on above: Result Comment: GFR Population [...] BC, ADIFF, ANEU, PRO, CMP, GFR #### [address] [address] .NEUABSon 04-13-2019 Neutrophils (Bld) [#/Vol] 4.00 10 3/mcL Normal 2.25-8.10 [facility] ([place]) Comment on above: Performed By: #### C BC, ADIFF, ANEU, PRO, CMP, GFR #### [address] [address] BMPon 04-13-2019 Calcium [Mass/Vol] 7.8 mg/dL Low 8.4-10.1 [facility] ([place]) Comment on above: Performed By: #### C BC, ADIFF, ANEU, PRO, CMP, GFR #### [place] [address] Chloride [Moles/Vol] 106 mmol/L Normal 98-110 [facility] ([place]) Comment on above: Performed By: #### C BC, ADIFF, ANEU, PRO, CMP, GFR #### [place] [address] CO2 [Moles/Vol] 31 mmol/L Normal 22-32 [facility] ([place]) Comment on above: Performed By: #### C BC, ADIFF, ANEU, PRO, CMP, GFR #### [place] [address] Creatinine [Mass/Vol] 0.74 mg/dL Normal 0.50-1.20 [facility] ([place]) Comment on above: Performed By: #### C BC, ADIFF, ANEU, PRO, CMP, GFR #### [place] [address] Electrolyte Balance 6.0 mEq/L Normal 4.0-15.0 [facility] ([place]) Comment on above: Performed By: #### C BC, ADIFF, ANEU, PRO, CMP, GFR #### [place] [address] Glucose [Mass/Vol] 107 mg/dL Normal 82-115 [facility] ([place]) Comment on above: Performed By: #### C BC, ADIFF, ANEU, PRO, CMP, GFR #### [address] [address] Potassium [Moles/Vol] 4.0 mmol/L Normal 3.5-5.0 [facility] ([place]) Comment on above: Performed By: #### C BC, ADIFF, ANEU, PRO, CMP, GFR #### [address] [address] Sodium [Moles/Vol] 143 mmol/L Normal 136-145 [facility] ([place]) Comment on above: Performed By: #### C BC, ADIFF, ANEU, PRO, CMP, GFR #### [place] [id number] Urea nitrogen [Mass/Vol] 16.0 mg/dL Normal 8.0-22.0 [facility] ([place]) Comment on above: Performed By: #### C BC, ADIFF, ANEU, PRO, CMP, GFR #### [place] [id number] Urea nitrogen/Creatinine [Mass ratio] 21.6 ratio Normal 10.0-22.0 [facility] ([place]) Comment on above: Performed By: #### C BC, ADIFF, ANEU, PRO, CMP, GFR #### [place] [id number] CBCon 04-13-2019 WBC (Bld) [#/Vol] 7.50 10 3/mcL Normal 4.50-10.80 [facility] ([place]) Comment on above: Result Comment: No n ormals available: specimen drawn from IV arm. Performed By: #### C BC, ADIFF, ANEU, BMP, GFR, LIPID, TROPI #### [address] [address] Erythrocyte distribution width (RBC) [Ratio] 13.5 % Normal 11.5-15.5 [facility] ([place]) Comment on above: Performed By: #### C BC, ADIFF, ANEU, BMP, GFR, LIPID, TROPI #### [place] [id number] Hematocrit (Bld) [Volume fraction] 32.9 % Low 34.0-46.0 [facility] ([place]) Comment on above: Performed By: #### C BC, ADIFF, ANEU, BMP, GFR, LIPID, TROPI #### [place] [id number] Hemoglobin (Bld) [Mass/Vol] 10.9 G/dL Low 12.0-16.0 [facility] ([place]) Comment on above: Performed By: #### C BC, ADIFF, ANEU, BMP, GFR, LIPID, TROPI #### [place] [id number] MCH (RBC) [Entitic mass] 31.2 pg Normal 27.0-33.0 [facility] ([place]) Comment on above: Performed By: #### C BC, ADIFF, ANEU, BMP, GFR, LIPID, TROPI #### [place] [id number] MCHC (RBC) [Mass/Vol] 33.2 G/dL Normal 32.0-36.0 [facility] ([place]) Comment on above: Performed By: #### C BC, ADIFF, ANEU, BMP, GFR, LIPID, TROPI #### [place] [id number] MCV (RBC) [Entitic vol] 94.0 fL Normal 80.0-99.0 [facility] ([place]) Comment on above: Performed By: #### C BC, ADIFF, ANEU, BMP, GFR, LIPID, TROPI #### [place] [id number] Platelet mean volume (Bld) [Entitic vol] 8.4 fL Normal 6.6-10.5 [facility] ([place]) Comment on above: Performed By: #### C BC, ADIFF, ANEU, BMP, GFR, LIPID, TROPI #### [place] [id number] Platelets (Bld) [#/Vol] 188 10 3/mcL Normal 150-450 [facility] ([place]) Comment on above: Performed By: #### C BC, ADIFF, ANEU, BMP, GFR, LIPID, TROPI #### [address] [place], [place] [address] RBC (Bld) [#/Vol] 3.49 10 6/mcL Low 4.10-5.30 [facility] ([place]) Comment on above: Performed By: #### C BC, ADIFF, ANEU, BMP, GFR, LIPID, TROPI #### [address] [address] [address] ANGIOGRAPHY HEAD W/ CONTR Tariq 04-13-2019 [...] Date: 04/13/2019 8:46:53 PM Ordering Provider:Naomie Solano [facility] ([place]) CT ANGIOGRAPHY NECK W/CONTRA STon 04-13-2019 CT [...] Date: 04/13/2019 8:25:57 PM Ordering Provider:Naomie Solano [facility] ([place]) LIPIDon 04-13-2019 Cholesterol in HDL [Mass/Vol] 30 mg/dL Low 40-59 [facility] ([place]) Comment on above: Result Comment: HDL Reference Interval: Less than 40 Low - high risk 60 or above Optimal/lowers risk Performed By: #### C BC, ADIFF, ANEU, PRO, CMP, GFR #### [facility] [address] [place] [address] Cholesterol in LDL [Mass/Vol] 78 mg/dL Normal 0-129 [facility] ([place]) Comment on above: Result Comment: LDL is a calculated result and requires a 12-hr fast. LDL Reference Interval: Less than 100 Optimal 100-129 Near or above optimal 130-159 Borderline high risk 160-189 High risk 190 and above Very high risk Performed By: #### C BC, ADIFF, ANEU, PRO, CMP, GFR #### [facility] [address] [place] [address] Cholesterol [Mass/Vol] 135 mg/dL Normal 50-199 [facility] ([place]) Comment on above: Result Comment: Chol esterol Reference Interval: Less than 200 Desirable 200-239 Borderline high risk 240 and above High risk Performed By: #### C BC, ADIFF, ANEU, PRO, CMP, GFR #### [place] [id number] [address] [place] [address] Triglyceride [Mass/Vol] 134 mg/dL Normal 3-149 [facility] ([place]) Comment on above: Result Comment: Trig lyceride Reference Interval: Less than 150 Normal 150-199 Borderline high risk 200-499 High risk 500 or higher Very high risk Performed By: #### C BC, ADIFF, ANEU, PRO, CMP, GFR #### [place] [id number] [address] [place] [address] MRI BRAIN W/O CONTRASTon MRI BRAIN W/O [...] Date: 04/13/2019 11:39:49 AM Ordering Provider:Naomie Solano [facility] ([place]) PROon 04-13-2019 INR Coag (PPP) [Relative time] 1.8 {INR} Normal [facility]) Comment on above: Order Comment: order ed secondary to warfarin order Result Comment: [employer] (CHEST, 1992, 102:312S-25S) recommended therapeutic range for oral anticoagulant therapy is: LOW RISK: Prophylaxis of venous thrombosis INR: 2.0-3.0 Treatment of pulmonary embolism 2.0-3.0 Prevention of systemic embolism 2.0-3.0 HIGH RISK: Mechanical prosthetic valves 2.5-3.5 Performed By: #### C BC, ADIFF, ANEU, PRO, CMP, GFR #### [address] [address] PT Coag (PPP) [Time] 21.0 s High 9.0-14.6 [facility] ([place]) Comment on above: Order Comment: order ed secondary to warfarin order Result Comment: Effe ctive 12/11/07, Protime results may be affected by some antibiotics (i.e. Ciprofloxacin, Azithromycin, Bactrim) which may potentiate the action of oral anticoagulants, with further increases in Protime/INR. Performed By: #### C BC, ADIFF, ANEU, PRO, CMP, GFR #### [address] [address] TROPIon 04-13-2019 Troponin I.cardiac [Mass/Vol] ng/mL Normal 0.000-0.040 [facility] ([place]) Comment on above: Result Comment: Trop onin [...] BC, ADIFF, ANEU, PRO, CMP, GFR #### [address] [address] Troponin I.cardiac [Mass/Vol] ng/mL Normal 0.000-0.040 [facility] ([place]) Comment on above: Result Comment: Trop onin [...] levels. Performed By: #### T NILDAI #### [address] [address] Troponin I.cardiac [Mass/Vol] ng/mL Normal 0.000-0.040 [facility] ([place]) Comment on above: Result Comment: Trop onin [...] levels. Performed By: #### T CLOTILDE #### [address] [address] .Auto Diffon 04-12-2019 Ammonia (P) [Mass/Vol] 0.60 10 3/mcL Normal 0.09-1.40 [facility] ([place]) Comment on above: Performed By: #### C BC, ADIFF, ANEU, PRO, CMP, GFR #### [address] [address] Basophils (Bld) [#/Vol] 0.10 10 3/mcL Normal 0.00-0.27 [facility] ([place]) Comment on above: Performed By: #### C BC, ADIFF, ANEU, PRO, CMP, GFR #### [address] [address] Basophils/100 WBC (Bld) 0.6 % Normal 0.0-2.5 [facility] ([place]) Comment on above: Performed By: #### C BC, ADIFF, ANEU, PRO, CMP, GFR #### [address] [address] Eosinophils (Bld) [#/Vol] 0.40 10 3/mcL Normal 0.00-0.65 [facility] ([place]) Comment on above: Performed By: #### C BC, ADIFF, ANEU, PRO, CMP, GFR #### [address] [address] Eosinophils/100 WBC (Bld) 4.4 % Normal 0.0-6.0 [facility] ([place]) Comment on above: Performed By: #### C BC, ADIFF, ANEU, PRO, CMP, GFR #### [address] [address] Lymphocytes (Bld) [#/Vol] 3.20 10 3/mcL Normal 0.90-4.32 [facility] ([place]) Comment on above: Performed By: #### C BC, ADIFF, ANEU, PRO, CMP, GFR #### [address] [address] Lymphocytes/100 WBC (Bld) 37.2 % Normal 20.0-40.0 [facility] ([place]) Comment on above: Performed By: #### C BC, ADIFF, ANEU, PRO, CMP, GFR #### [address] [address] Monocytes/100 WBC (Bld) 6.7 % Normal 2.0-13.0 [facility] ([place]) Comment on above: Performed By: #### C BC, ADIFF, ANEU, PRO, CMP, GFR #### [address] [address] Neutrophils/100 WBC (Bld) 51.1 % Normal 50.0-75.0 [facility] ([place]) Comment on above: Performed By: #### C BC, ADIFF, ANEU, PRO, CMP, GFR #### [address] [address] .GFRon 04-12-2019 GFR >60 Normal [facility] ([place]) Comment on above: Result Comment: GFR Population [...] BC, ADIFF, ANEU, PRO, CMP, GFR #### [address] [address] GFR Non- >60 Normal [facility] ([place]) Comment on above: Result Comment: GFR Population [...] BC, ADIFF, ANEU, PRO, CMP, GFR #### [address] [address] .NEUABSon 04-12-2019 Neutrophils (Bld) [#/Vol] 4.40 10 3/mcL Normal 2.25-8.10 [facility] ([place]) Comment on above: Performed By: #### C BC, ADIFF, ANEU, PRO, CMP, GFR #### [place] [id number] CBCon 04-12-2019 Erythrocyte distribution width (RBC) [Ratio] 13.5 % Normal 11.5-15.5 [facility] ([place]) Comment on above: Performed By: #### C BC, ADIFF, ANEU, PRO, CMP, GFR #### [place] [address] Hematocrit (Bld) [Volume fraction] 35.5 % Normal 34.0-46.0 [facility] ([place]) Comment on above: Performed By: #### C BC, ADIFF, ANEU, PRO, CMP, GFR #### [place] [address] Hemoglobin (Bld) [Mass/Vol] 12.0 G/dL Normal 12.0-16.0 [facility] ([place]) Comment on above: Performed By: #### C BC, ADIFF, ANEU, PRO, CMP, GFR #### [place] [address] MCH (RBC) [Entitic mass] 32.0 pg Normal 27.0-33.0 [facility] ([place]) Comment on above: Performed By: #### C BC, ADIFF, ANEU, PRO, CMP, GFR #### [place] [address] MCHC (RBC) [Mass/Vol] 33.8 G/dL Normal 32.0-36.0 [facility] ([place]) Comment on above: Performed By: #### C BC, ADIFF, ANEU, PRO, CMP, GFR #### [facility] [address] [place], [place] [address] MCV (RBC) [Entitic vol] 94.7 fL Normal 80.0-99.0 [facility] ([place]) Comment on above: Performed By: #### C BC, ADIFF, ANEU, PRO, CMP, GFR #### [place] [address] Platelet mean volume (Bld) [Entitic vol] 8.7 fL Normal 6.6-10.5 [facility] ([place]) Comment on above: Performed By: #### C BC, ADIFF, ANEU, PRO, CMP, GFR #### [place] [address] Platelets (Bld) [#/Vol] 209 10 3/mcL Normal 150-450 [facility] ([place]) Comment on above: Performed By: #### C BC, ADIFF, ANEU, PRO, CMP, GFR #### [place] [id number] RBC (Bld) [#/Vol] 3.75 10 6/mcL Low 4.10-5.30 [facility] ([place]) Comment on above: Performed By: #### C BC, ADIFF, ANEU, PRO, CMP, GFR #### [place] [id number] WBC (Bld) [#/Vol] 8.60 10 3/mcL Normal 4.50-10.80 [facility] ([place]) Comment on above: Performed By: #### C BC, ADIFF, ANEU, PRO, CMP, GFR #### [place] [address] CMPon 04-12-2019 Albumin/Globulin [Mass ratio] 1.0 {ratio} Normal 0.9-1.6 [facility] ([place]) Comment on above: Performed By: #### C BC, ADIFF, ANEU, PRO, CMP, GFR #### [place] [address] ALP [Catalytic activity/Vol] 72 U/L Normal 38-126 [facility] ([place]) Comment on above: Performed By: #### C BC, ADIFF, ANEU, PRO, CMP, GFR #### [address] [address] Bili Total 0.3 mg/dL Normal 0.2-1.2 [facility] ([place]) Comment on above: Performed By: #### C BC, ADIFF, ANEU, PRO, CMP, GFR #### [address] [address] Creatinine [Mass/Vol] 0.66 mg/dL Normal 0.50-1.20 [facility] ([place]) Comment on above: Performed By: #### C BC, ADIFF, ANEU, PRO, CMP, GFR #### [address] [address] Globulin (S) [Mass/Vol] 3.0 G/dL Normal 1.5-3.8 [facility] ([place]) Comment on above: Performed By: #### C BC, ADIFF, ANEU, PRO, CMP, GFR #### [place] [id number] Protein [Mass/Vol] 6.0 G/dL Normal 6.0-8.5 [facility] ([place]) Comment on above: Performed By: #### C BC, ADIFF, ANEU, PRO, CMP, GFR #### [address] [address] Urea nitrogen/Creatinine [Mass ratio] 27.3 ratio High 10.0-22.0 [facility] ([place]) Comment on above: Performed By: #### C BC, ADIFF, ANEU, PRO, CMP, GFR #### [address] [address] Albumin [Mass/Vol] 3.0 G/dL Low 3.2-4.8 [facility] ([place]) Comment on above: Performed By: #### C BC, ADIFF, ANEU, PRO, CMP, GFR #### [address] [address] ALT [Catalytic activity/Vol] 24 U/L Normal 10-49 [facility] ([place]) Comment on above: Performed By: #### C BC, ADIFF, ANEU, PRO, CMP, GFR #### [address] [address] AST [Catalytic activity/Vol] 20 U/L Normal 8-34 [facility] ([place]) Comment on above: Performed By: #### C BC, ADIFF, ANEU, PRO, CMP, GFR #### [address] [address] Calcium [Mass/Vol] 8.2 mg/dL Low 8.4-10.1 [facility] ([place]) Comment on above: Performed By: #### C BC, ADIFF, ANEU, PRO, CMP, GFR #### [address] [address] Chloride [Moles/Vol] 105 mmol/L Normal 98-110 [facility] ([place]) Comment on above: Performed By: #### C BC, ADIFF, ANEU, PRO, CMP, GFR #### [address] [address] CO2 [Moles/Vol] 28 mmol/L Normal 22-32 [facility] ([place]) Comment on above: Performed By: #### C BC, ADIFF, ANEU, PRO, CMP, GFR #### [place] [id number] Electrolyte Balance 8.0 mEq/L Normal 4.0-15.0 [facility] ([place]) Comment on above: Performed By: #### C BC, ADIFF, ANEU, PRO, CMP, GFR #### [address] [address] Glucose [Mass/Vol] 108 mg/dL Normal 82-115 [facility] ([place]) Comment on above: Performed By: #### C BC, ADIFF, ANEU, PRO, CMP, GFR #### [address] [address] Potassium [Moles/Vol] 3.7 mmol/L Normal 3.5-5.0 [facility] ([place]) Comment on above: Performed By: #### C BC, ADIFF, ANEU, PRO, CMP, GFR #### [place] [id number] Sodium [Moles/Vol] 141 mmol/L Normal 136-145 [facility] ([place]) Comment on above: Performed By: #### C BC, ADIFF, ANEU, PRO, CMP, GFR #### [address] [address] Urea nitrogen [Mass/Vol] 18.0 mg/dL Normal 8.0-22.0 [facility]) Comment on above: Performed By: #### C BC, ADIFF, ANEU, PRO, CMP, GFR #### [facility] [address] [place] [id number] PROon 04-12-2019 INR Coag (PPP) [Relative time] 1.8 {INR} Normal [facility] ([place]) Comment on above: Result Comment: The [employer] (CHEST, 1992, 102:[id number]) recommended therapeutic range for oral anticoagulant therapy is: LOW RISK: Prophylaxis of venous thrombosis INR: 2.0-3.0 Treatment of pulmonary embolism 2.0-3.0 Prevention of systemic embolism 2.0-3.0 HIGH RISK: Mechanical prosthetic valves 2.5-3.5 Performed By: #### C BC, ADIFF, ANEU, PRO, CMP, GFR #### [address] [address] PT Coag (PPP) [Time] 20.9 s High 9.0-14.6 [facility] ([place]) Comment on above: Result Comment: Effe ctive 12/11/07, Protime results may be affected by some antibiotics (i.e. Ciprofloxacin, Azithromycin, Bactrim) which may potentiate the action of oral anticoagulants, with further increases in Protime/INR. Performed By: #### C BC, ADIFF, ANEU, PRO, CMP, GFR #### [address] [address] CNCOon 09-08-2017 [facility]CO Letter Text [facility] [address] [place] [address]Nsna: [phone] VmixczbFredo Kathleen MDAprlatricia 2017Colette Richardson3383 [facility] [id number] Richardson,We missed seeing you for your scheduled appointment with Dr. Kathleen on09/05/17.Our goal is to offer the best possible care to our patients, so we areconcerned when you are unable to keep a scheduled appointment.Please call us at [phone] so that we can reschedule your appointment fora day and time that will work for you.If you find it difficult to keep your appointment, please notify our officeat least 24 hours in advance so that we may reschedule your appointment.We are glad that you have chosen [facility] for your[facility]ovascular needs and hope to continue serving you in the future.Sincerely,Sarath Kathleen MD(Signed electronically to expedite mailing) Normal [facility] Culture, urine Bacteria identified Cx Nom (U) Culture exhibits no growth. [facility] Work Phone: Bacteria identified Cx Nom (U) Staphylococcus epidermidis [facility] Work Phone: Influenza virus A and B and SARS-CoV-2 (COVID-19) Ag panel - Upper respiratory specim SARS-CoV-2 (COVID-19) RNA REMINGTON+probe Ql (Resp) [facility] Work Phone: Laboratory - Microbiology an d Antimicrobial susceptibility Bacteria identified Cx Nom (Bld) No growth in 5 days. [facility] Work Phone: No Panel Information SARS-CoV-2 & FLU Antigen (Rapid) [facility] Work Phone: Vital Signs Date Time Vital Sign Value Performing Clinician Faci lity 12-17-2024 10:56-0400 Body mass index (BMI) [Ratio] 27.9 kg/m2 Diana Mckeon MD Work Phone: [facility] 12-17-2024 10:56-0400 Body weight 64.8 kg Diana Mckeon MD Work Phone: [facility] 12-17-2024 10:56-0400 SaO2% (BldA) [Mass fraction] 96 % Diana Mckeon MD Work Phone: [facility] 10-09-2024 20:54-0400 Body temperature 98 [degF] Dr. Melo Monzon MD [facility] 10-09-2024 20:54-0400 Diastolic blood pressure 80 mm[Hg] Dr. Melo Monzon MD [facility] 10-09-2024 20:54-0400 Heart rate 68 /min Dr. Melo Monzon MD [facility] 10-09-2024 20:54-0400 Respiratory rate 18 /min Dr. Melo Monzon MD [facility] 10-09-2024 20:54-0400 SaO2% (BldA) [Mass fraction] 96 % Dr. Melo Monzon MD [facility] 10-09-2024 20:54-0400 Systolic blood pressure 188 mm[Hg] Dr. Melo Monzon MD [facility] 10-09-2024 19:02-0400 Body height 154.[address] Melo Monzon MD [facility] 10-09-2024 19:02-0400 Body mass index (BMI) [Ratio] 27.6 kg/m2 Dr. Melo Monzon MD [facility] 10-09-2024 19:02-0400 Body weight 66.[address] Melo Monzon MD [facility] 02-02-2023 18:43-0400 Diastolic blood pressure 92 mm[Hg] Dr. Hortensia Unger Work Phone: [facility] 02-02-2023 18:43-0400 Heart rate 66 /min Dr. Hortensia Unger Work Phone: [facility] 02-02-2023 18:43-0400 Systolic blood pressure 186 mm[Hg] Dr. Hortensia Unger Work Phone: [facility] 02-02-2023 15:12-0400 Body height 154.[address] Hortensia Unger Work Phone: [facility] 02-02-2023 15:12-0400 Body temperature 97.9 [degF] Dr. Hortensia Unger Work Phone: [facility] 02-02-2023 15:12-0400 Respiratory rate 18 /min Dr. Hortensia Unger Work Phone: [facility] 02-02-2023 15:12-0400 SaO2% (BldA) [Mass fraction] 97 % Dr. Hortensia Unger Work Phone: [facility] 01-09-2023 10:02-0400 Body mass index (BMI) [Ratio] 30.1 kg/m2 Dr. Hortensia Unger Work Phone: [facility] 01-09-2023 10:02-0400 Body temperature 98 [degF] Dr. Hortensia Unger Work Phone: [facility] 01-09-2023 10:02-0400 Body weight 72.[address] Hortensia Unger Work Phone: [facility] 01-09-2023 10:02-0400 Diastolic blood pressure 60 mm[Hg] Dr. Hortensia Unger Work Phone: [facility] 01-09-2023 10:02-0400 Heart rate 63 /min Dr. Hortensia Unger Work Phone: [facility] 01-09-2023 10:02-0400 Respiratory rate 17 /min Dr. Hortensia Unger Work Phone: [facility] 01-09-2023 10:02-0400 SaO2% (BldA) [Mass fraction] 95 % Dr. Hortensia Unger Work Phone: [facility] 01-09-2023 10:02-0400 Systolic blood pressure 140 mm[Hg] Dr. Hortensia Unger Work Phone: [facility] 06-17-2022 14:56-0500 Body temperature 98.2 [degF] Dr. Hortensia Unger Work Phone: [facility] 06-17-2022 14:56-0500 Diastolic blood pressure 65 mm[Hg] Dr. Hortensia Unger Work Phone: [facility] 06-17-2022 14:56-0500 Heart rate 62 /min Dr. Hortensia Unger Work Phone: [facility] 06-17-2022 14:56-0500 Respiratory rate 18 /min Dr. Hortensia Unger Work Phone: [facility] 06-17-2022 14:56-0500 SaO2% (BldA) [Mass fraction] 95 % Dr. Hortensia Unger Work Phone: [facility] 06-17-2022 14:56-0500 Systolic blood pressure 116 mm[Hg] Dr. Hortensia Unger Work Phone: [facility] 06-17-2022 11:51-0500 Body mass index (BMI) [Ratio] 32.6 kg/m2 Dr. Hortensia Unger Work Phone: [facility] 06-16-2022 18:14-0500 Diastolic blood pressure 67 mm[Hg] [facility] 06-16-2022 18:14-0500 Systolic blood pressure 156 mm[Hg] [facility] 06-16-2022 18:07-0500 Body height 154.[address] Hortensia Unger Work Phone: [facility] 06-16-2022 18:07-0500 Body weight 78.[address] Hortensia Unger Work Phone: [facility] 06-16-2022 17:33-0500 Body temperature 97.6 [degF] [facility] 06-16-2022 17:33-0500 Heart rate 67 /min [facility] 06-16-2022 17:33-0500 Respiratory rate 20 /min [facility] 06-16-2022 17:33-0500 SaO2% (BldA) [Mass fraction] 95 % [facility] 06-16-2022 12:16-0500 Body height 154.99 cm [facility] 06-16-2022 12:16-0500 Body mass index (BMI) [Ratio] 32.6 kg/m2 [facility] 06-16-2022 12:16-0500 Body weight 78.4 kg [facility] 03-07-2022 18:00-0400 Body temperature 97.8 [degF] [facility] 03-07-2022 18:00-0400 Diastolic blood pressure 89 mm[Hg] [facility] 03-07-2022 18:00-0400 Heart rate 83 /min [facility] 03-07-2022 18:00-0400 Respiratory rate 18 /min [facility] 03-07-2022 18:00-0400 SaO2% (BldA) [Mass fraction] 94 % [facility] 03-07-2022 18:00-0400 Systolic blood pressure 126 mm[Hg] [facility] 03-07-2022 14:47-0400 Body height 154.94 cm [facility] Work Phone: 03-07-2022 14:47-0400 Body mass index (BMI) [Ratio] 31.4 kg/m2 [facility] 03-07-2022 14:47-0400 Body weight 75.29 kg [facility] 03-07-2022 14:47-0400 Inhaled oxygen flow rate 2 L/min [facility] 11-12-2021 13:19-0400 Body temperature 98.5 [degF] Dr. Joao Simon Work Phone: [facility] Work Phone: 11-12-2021 13:19-0400 Diastolic blood pressure 83 mm[Hg] Dr. Joao Simon Work Phone: [facility] Work Phone: 11-12-2021 13:19-0400 Heart rate 63 /min Dr. Joao Simon Work Phone: [facility] Work Phone: 11-12-2021 13:19-0400 Respiratory rate 16 /min Dr. Joao Simon Work Phone: [facility] Work Phone: 11-12-2021 13:19-0400 SaO2% (BldA) [Mass fraction] 98 % Dr. Joao Simon Work Phone: [facility] Work Phone: 11-12-2021 13:19-0400 Systolic blood pressure 131 mm[Hg] Dr. Joao Simon Work Phone: [facility] Work Phone: 11-10-2021 12:44-0400 Body height 152.[address] Joao Simon Work Phone: [facility] Work Phone: 11-10-2021 12:44-0400 Body weight 75.[address] Joao Simon Work Phone: [facility] Work Phone: 11-10-2021 09:26-0400 Diastolic blood pressure 61 mm[Hg] Dr. Joao Simon Work Phone: [facility] Work Phone: 11-10-2021 09:26-0400 Heart rate 70 /min Dr. Joao Simon Work Phone: [facility] Work Phone: 11-10-2021 09:26-0400 Systolic blood pressure 131 mm[Hg] Dr. Joao Simon Work Phone: [facility] Work Phone: 11-09-2021 14:57-0400 Body weight 75.[address] Joao Simon Work Phone: [facility] Work Phone: 11-09-2021 14:00-0400 Body temperature 97.6 [degF] Dr. Joao Simon Work Phone: [facility] Work Phone: 11-09-2021 14:00-0400 Respiratory rate 16 /min Dr. Joao Simon Work Phone: [facility] Work Phone: 11-09-2021 14:00-0400 SaO2% (BldA) [Mass fraction] 97 % Dr. Joao Simon Work Phone: [facility] Work Phone: 11-05-2021 16:00-0400 Body height 152.[address] Joao Simon Work Phone: [facility] Work Phone: 11-04-2021 18:29-0400 Body mass index (BMI) [Ratio] 33.1 kg/m2 Dr. Joao Simon Work Phone: [facility] Work Phone: 11-04-2021 14:52-0400 Body temperature 98 [degF] Dr. Joao Simon Work Phone: [facility] Work Phone: 11-04-2021 14:52-0400 Diastolic blood pressure 57 mm[Hg] Dr. Joao Simon Work Phone: [facility] Work Phone: 11-04-2021 14:52-0400 Heart rate 72 /min Dr. Joao Simon Work Phone: [facility] Work Phone: 11-04-2021 14:52-0400 Respiratory rate 16 /min Dr. Joao Simon Work Phone: [facility] Work Phone: 11-04-2021 14:52-0400 SaO2% (BldA) [Mass fraction] 97 % Dr. Joao Simon Work Phone: [facility] Work Phone: 11-04-2021 14:52-0400 Systolic blood pressure 138 mm[Hg] Dr. Joao Simon Work Phone: [facility] Work Phone: 11-02-2021 17:39-0400 Body height 152.[address] Joao Simon Work Phone: [facility] Work Phone: 11-02-2021 17:39-0400 Body mass index (BMI) [Ratio] 32.1 kg/m2 Dr. Joao Simon Work Phone: [facility] Work Phone: 11-02-2021 17:39-0400 Body weight 74.[address] Joao Simon Work Phone: [facility] Work Phone: 11-02-2021 17:03-0400 Heart rate 74 /min Dr. Joao Simon Work Phone: [facility] Work Phone: 11-02-2021 15:36-0400 Body temperature 98.7 [degF] Dr. Joao Simon Work Phone: [facility] Work Phone: 11-02-2021 15:36-0400 Diastolic blood pressure 86 mm[Hg] Dr. Joao Simon Work Phone: [facility] Work Phone: 11-02-2021 15:36-0400 Respiratory rate 17 /min Dr. Joao Simon Work Phone: [facility] Work Phone: 11-02-2021 15:36-0400 SaO2% (BldA) [Mass fraction] 95 % Dr. Joao Simon Work Phone: [facility] Work Phone: 11-02-2021 15:36-0400 Systolic blood pressure 169 mm[Hg] Dr. Joao Simon Work Phone: [facility] Work Phone: 11-02-2021 11:48-0400 Body height 152.[address] Joao Simon Work Phone: [facility] Work Phone: 11-02-2021 11:48-0400 Body mass index (BMI) [Ratio] 32.8 kg/m2 Dr. Joao Simon Work Phone: [facility] Work Phone: 11-02-2021 11:48-0400 Body weight 76.[address] Joao Simon Work Phone: [facility] Work Phone: 09-29-2021 14:32-0400 Body mass index (BMI) [Ratio] 32.5 kg/m2 Dr. Joao Simon Work Phone: [facility] Work Phone: 09-29-2021 14:32-0400 Body weight 78.[address] Joao Simon Work Phone: [facility] Work Phone: 09-29-2021 14:32-0400 Diastolic blood pressure 83 mm[Hg] Dr. Joao Simon Work Phone: [facility] Work Phone: 09-29-2021 14:32-0400 Heart rate 66 /min Dr. Joao Simon Work Phone: [facility] Work Phone: 09-29-2021 14:32-0400 Respiratory rate 16 /min Dr. Joao Simon Work Phone: [facility] Work Phone: 09-29-2021 14:32-0400 SaO2% (BldA) [Mass fraction] 94 % Dr. Joao Simon Work Phone: [facility] Work Phone: 09-29-2021 14:32-0400 Systolic blood pressure 155 mm[Hg] Dr. Joao Siomn Work Phone: [facility] Work Phone: 09-29-2021 14:32-0400 Body height 154.[address] Joe Rosario Work Phone: [facility] Work Phone: 09-29-2021 14:32-0400 Body mass index (BMI) [Ratio] 32.5 kg/m2 Dr. Joe Rosario Work Phone: [facility] Work Phone: 09-29-2021 14:32-0400 Body weight 78.[address] Joe Rosario Work Phone: [facility] Work Phone: 09-29-2021 14:32-0400 Diastolic blood pressure 83 mm[Hg] Dr. Joe Rosario Work Phone: [facility] Work Phone: 09-29-2021 14:32-0400 Heart rate 66 /min Dr. Joe Rosario Work Phone: [facility] Work Phone: 09-29-2021 14:32-0400 Respiratory rate 16 /min Dr. Joe Rosario Work Phone: [facility] Work Phone: 09-29-2021 14:32-0400 SaO2% (BldA) [Mass fraction] 94 % Dr. Joe Rosario Work Phone: [facility] Work Phone: 09-29-2021 14:32-0400 Systolic blood pressure 155 mm[Hg] Dr. Joe Rosario Work Phone: [facility] Work Phone: 06-26-2021 05:00-0500 Diastolic blood pressure 64 mm[Hg] Dr. Joe Rosario Work Phone: [facility] Work Phone: 06-26-2021 05:00-0500 Heart rate 69 /min Dr. Joe Rosario Work Phone: [facility] Work Phone: 06-26-2021 05:00-0500 Systolic blood pressure 141 mm[Hg] Dr. Joe Rosario Work Phone: [facility] Work Phone: 06-25-2021 13:03-0500 Body temperature 98.6 [degF] Dr. Joe Rosario Work Phone: [facility] Work Phone: 06-25-2021 13:03-0500 Respiratory rate 18 /min Dr. Joe Rosario Work Phone: [facility] Work Phone: 06-25-2021 13:03-0500 SaO2% (BldA) [Mass fraction] 92 % Dr. Joe Rosario Work Phone: [facility] Work Phone: 06-23-2021 13:54-0500 Body height 154.[address] Joe Rosario Work Phone: [facility] Work Phone: 06-23-2021 13:54-0500 Body weight 77.[address] Joe Rosario Work Phone: [facility] Work Phone: 06-18-2021 14:47-0500 Body mass index (BMI) [Ratio] 33.3 kg/m2 Dr. Joe Rosario Work Phone: [facility] Work Phone: 06-18-2021 11:04-0500 SaO2% (BldA) [Mass fraction] 92 % Dr. Joe Rosraio Work Phone: [facility] Work Phone: 06-18-2021 10:40-0500 Body temperature 98.1 [degF] Dr. Joe Rosario Work Phone: [facility] Work Phone: 06-18-2021 10:40-0500 Diastolic blood pressure 67 mm[Hg] Dr. Joe Rosario Work Phone: [facility] Work Phone: 06-18-2021 10:40-0500 Heart rate 58 /min Dr. Joe Rosario Work Phone: [facility] Work Phone: 06-18-2021 10:40-0500 Respiratory rate 18 /min Dr. Joe Rosario Work Phone: [facility] Work Phone: 06-18-2021 10:40-0500 Systolic blood pressure 116 mm[Hg] Dr. Joe Rosario Work Phone: [facility] Work Phone: 06-18-2021 01:05-0500 Body weight 80.[address] Joe Rosario Work Phone: [facility] Work Phone: 06-17-2021 11:59-0500 Body mass index (BMI) [Ratio] 33 kg/m2 Dr. Joe Rosario Work Phone: [facility] Work Phone: Encounters Encounter Date Encounter Type Care Provider Facility Start: 03-26-2025 ambulatory Melo THOMAS Facil ity:[facility] Start: 03-05-2025 End: 03-05-2025 ambulatory Melo THOMAS Facility:[facility] Start: 02-25-2025 ambulatory Rani Soares Facility:[facility] Start: 02-24-2025 End: 02-24-2025 ambulatory Melo THOMAS Facility:[facility] Start: 02-06-2025 End: 02-07-2025 ambulatory Melo THOMAS Facility:[facility] Start: 12-17-2024 End: 12-17-2024 Office outpatient new 45 minutes Diana Mckeon MD Work Phone: Neurology Comment on above: Parkinsonism, unspec ified Parkinsonism type (HCC) (Primary Dx); Multifactorial gait disorder Start: 12-17-2024 End: 12-17-2024 ambulatory MELO MONZON Facility:[facility] Start: 12-13-2024 ambulatory Melo THOMAS Facil ity:[facility] Start: 10-22-2024 End: 10-22-[address] Melo Monzon MD [facility] Work Phone: Start: 10-22-2024 End: 10-22-[address] Melo Monzon MD [facility] Work Phone: Start: 10-22-2024 End: 10-22-2024 ambulatory Melo THOMAS Facility:[facility] Start: 10-09-2024 End: 10-09-2024 Emergency department patient visit Dr. Melo Monzon MD -Emergency Department Work Phone: Start: 09-09-2024 End: 09-09-[address] Melo Monzon MD [facility] Work Phone: Start: 09-09-2024 End: 09-09-[address] Melo Monzon MD -[facility] Work Phone: Start: 09-09-2024 End: 09-09-2024 ambulatory Melo THOMAS Facility:[facility] Start: 08-12-2024 End: 08-12-[address] Melo Monzon MD [facility] Work Phone: Start: 08-12-2024 End: 08-12-[address] Melo Monzon MD -[facility] Work Phone: Start: 08-12-2024 End: 08-12-2024 ambulatory Melo THOMAS Facility:[facility] Start: 07-29-2024 End: 07-29-[address] Melo Monzon MD [facility] Work Phone: Start: 07-29-2024 End: 07-29-[address] Melo Monzon MD -[facility] Work Phone: Start: 07-29-[address] Melo delaney MD -[facility] Work Phone: Start: 07-29-2024 End: 07-29-2024 ambulatory Melo THOMAS Facility:[facility] Start: 07-25-2024 End: 07-25-[address] Melo Monzon MD [facility] Work Phone: Start: 07-25-2024 End: 07-25-[address] [facility] Work Phone: Start: 07-25-[address] [facility] Work Phone: Start: 07-24-2024 End: 07-25-[address] Melo Monzon MD [facility] Work Phone: Start: 07-24-2024 End: 07-24-[address] [facility] Work Phone: Start: 07-24-[address] [facility] Work Phone: Start: 07-24-2024 End: 07-24-2024 ambulatory Melo THOMAS Facility:[facility] Start: 2024 End: [address] Melo Monzon MD [facility] Work Phone: Start: 2024 End: [address] [facility] Work Phone: Start: [address] [facility] Work Phone: Start: 2024 End: 2024 ambulatory Melo THOMAS Facility:[facility] Start: 07-18-2024 ambulatory Melo THOMAS Facil ity:[facility] Start: 07-18-[address] [facility] Work Phone: Start: 07-17-2024 End: 07-17-[address] Melo Monzon MD [facility] Work Phone: Start: 07-17-2024 End: 07-17-[address] [facility] Work Phone: Start: 07-17-[address] [facility] Work Phone: Start: 07-16-2024 End: 07-17-2024 ambulatory Melo THOMAS Facility:[facility] Start: 07-16-[address] [facility] Work Phone: Start: 07-15-[facility] Start: 07-15-[address] [facility] Work Phone: Start: 07-12-2024 End: 07-12-[address] Melo Monzon MD [facility] Work Phone: Start: 07-12-2024 End: 07-12-[address] [facility] Work Phone: Start: 07-12-[address] [facility] Work Phone: Start: 07-12-2024 End: 07-12-2024 ambulatory Melo THOMAS Facility:[facility] Start: 07-09-2024 ambulatory Melo THOMAS Facil ity:[facility] Start: 07-09-[address] [facility] Work Phone: Start: 07-08-2024 End: 07-08-[address] Melo Monzon MD [facility] Work Phone: Start: 07-08-2024 End: 07-08-[address] [facility] Work Phone: Start: 07-08-[address] [facility] Work Phone: Start: 07-08-2024 End: 07-08-2024 ambulatory Melo THOMAS Facility:[facility] Start: 07-05-2024 End: 07-05-[address] Melo Monzon MD [facility] Work Phone: Start: 07-05-2024 End: 07-05-[address] [facility] Work Phone: Start: 07-05-[address] Melo delaney MD -[facility] Work Phone: Start: 07-04-2024 End: 07-05-2024 ambulatory Melo THOMAS Facility:[facility] Start: 07-04-[address] [facility] Work Phone: Start: 07-03-2024 End: 07-03-[address] Melo Monzon MD [facility] Work Phone: Start: 07-03-2024 End: 07-03-[address] [facility] Work Phone: Start: 07-03-[address] [facility] Work Phone: Start: 07-02-2024 End: 07-03-[address] Melo Monzon MD [facility] Work Phone: Start: 07-02-2024 End: 07-02-[address] [facility] Work Phone: Start: 07-01-2024 End: 07-02-[address] Melo Monzon MD [facility] Work Phone: Start: 07-01-2024 End: 07-01-[address] [facility] Work Phone: Start: 07-01-[address] [facility] Work Phone: Start: 07-01-2024 End: 07-01-2024 ambulatory Melo THOMAS Facility:[facility] Start: 06-17-2024 ambulatory Lutz Fady THOMAS Facil ity:[facility] Start: 06-17-[address] Melo delaney MD -[facility] Work Phone: Start: 06-16-2024 End: 06-16-[address] Melo Monzon MD [facility] Work Phone: Start: 06-16-2024 End: 06-16-[address] Melo Monzon MD -[facility] Work Phone: Start: 06-16-[address] Melo delnaey MD -[facility] Work Phone: Start: 06-16-2024 End: 06-16-2024 ambulatory Melo THOMAS Facility:[facility] Start: 04-04-2024 End: 04-04-2024 Departed Referred Dr. Melo Monzon MD -[facility] Work Phone: Start: 04-04-2024 End: 04-04-2024 ambulatory Melo THOMAS Facility:[facility] Start: 09-11-2023 End: 09-11-2023 ambulatory [facility] Work Phone: Start: 09-11-2023 End: 09-11-2023 Departed Referred [facility] Work Phone: Start: 08-30-2023 End: 08-30-2023 ambulatory [facility] Work Phone: Start: 08-30-2023 End: 08-30-2023 Departed Referred [facility] Work Phone: Start: 08-09-2023 End: 08-09-2023 ambulatory [facility] Work Phone: Start: 08-09-2023 End: 08-09-2023 Departed Referred [facility] Work Phone: Start: 07-26-2023 End: 07-26-2023 ambulatory [facility] Work Phone: Start: 07-26-2023 End: 07-26-2023 Departed Referred [facility] Work Phone: Start: 07-11-2023 End: 07-11-2023 ambulatory [facility] Work Phone: Start: 07-11-2023 End: 07-11-2023 Departed Referred [facility] Work Phone: Start: 06-28-2023 End: 06-28-2023 ambulatory [facility] Work Phone: Start: 06-28-2023 End: 06-28-2023 [facility] Work [facility]: Start: 06-28-2023 [facility] Work Phone: Start: 06-14-2023 End: 06-14-2023 ambulatory [facility] Work Phone: Start: 06-14-2023 End: 06-14-2023 [facility] Work Phone: Start: 05-31-2023 End: 05-31-2023 ambulatory [facility] Work Phone: Start: 05-31-2023 End: 05-31-2023 Departed Referred [facility] Work Phone: Start: 05-23-2023 End: 05-23-2023 ambulatory [facility] Work Phone: Start: 05-23-2023 End: 05-23-2023 [facility] Work Phone: Start: 05-08-2023 End: 05-08-2023 ambulatory [facility] Work Phone: Start: 05-08-2023 End: 05-08-2023 Departed Referred [facility] Work Phone: Start: 04-06-2023 End: 04-06-[address] Hortensia Unger Work Phone: [facility] Work Phone: Start: 04-06-2023 End: 04-06-[address] Hortensia Unger Work Phone: [facility] Work Phone: Start: 03-06-2023 End: 03-06-[address] Hortensia Unger Work Phone: [facility] Work Phone: Start: 02-21-2023 End: 02-21-[address] Hortensia Unger Work Phone: [facility] Work Phone: Start: 02-21-2023 End: 02-21-[address] Hortensia Unger Work Phone: [facility] Work Phone: Start: 02-14-2023 End: 02-14-[address] Hortensia Unger Work Phone: [facility] Work Phone: Start: 02-14-2023 End: 02-14-[address] Hortensia Unger Work Phone: [facility] Work Phone: Start: 02-14-[address] Hortensia menchaca Work Phone: [facility] Work Phone: Start: 02-07-2023 End: 02-07-[address] Hortensia Unger Work Phone: [facility] Work Phone: Start: 02-07-2023 End: 02-07-[address] Hortensia Unger Work Phone: [facility] Work Phone: Start: 02-02-2023 End: 02-02-2023 Emergency department patient visit Dr. Hortensia Unger Work Phone: [facility] Work Phone: Start: 01-09-2023 End: 01-09-[address] Hortensia Unger Work Phone: [facility] Work Phone: Start: 01-03-2023 End: 01-03-[address] Hortensia Unger Work Phone: [facility] Work Phone: Start: 11-30-2022 End: 11-30-2022 ambulatory [facility] Work Phone: Start: 11-30-2022 End: 11-30-2022 Departed Referred [facility] Work Phone: Start: 11-30-2022 Registered Referred [facility] Work Phone: Start: 11-16-2022 End: 11-16-2022 ambulatory [facility] Work Phone: Start: 11-16-2022 End: 11-16-2022 Departed Referred [facility] Work Phone: Start: 11-02-2022 End: 11-02-2022 ambulatory [facility] Work Phone: Start: 11-02-2022 End: 11-02-2022 Departed Referred [facility] Start: 10-19-2022 End: 10-19-2022 Departed Referred [facility] Start: 10-05-2022 End: 10-05-[address] Hortensia Unger Work Phone: [facility] Work Phone: Start: 10-05-2022 End: 10-05-[address] Hortensia Unger Work Phone: [facility] Start: 10-03-2022 End: 10-03-[address] Hortensia Unger Work Phone: [facility] Work Phone: Start: 10-03-2022 End: 10-03-[address] Hortensia Unger Work Phone: [facility] Start: 09-28-2022 End: 09-28-[address] Hortensia Unger Work Phone: [facility] Work Phone: Start: 09-28-2022 End: 09-28-[address] Hortensia Unger Work Phone: [facility] Start: 09-28-[address] Hortensia menchaca Work Phone: [facility] Start: 09-20-2022 End: 09-20-[address] Hortensia Unger Work Phone: [facility] Start: 09-16-2022 End: 09-16-[address] Hortensia Unger Work Phone: [facility] Work Phone: Start: 09-16-2022 End: 09-16-[address] Hortensia Unger Work Phone: [facility] Start: 09-16-[address] Hortensia menchaca Work Phone: [facility] Start: 08-29-2022 End: 08-29-[address] Hortensia Unger Work Phone: [facility] Work Phone: Start: 08-29-2022 End: 08-29-[address] Hortensia Unger Work Phone: [facility] Start: 08-08-2022 End: 08-08-[address] Hortensia Unger Work Phone: [facility] Start: 07-28-2022 End: 07-28-[address] Hortensia Unger Work Phone: [facility] Start: 07-11-2022 End: 07-11-[address] Hortensia Unger Work Phone: [facility] Work Phone: Start: 07-11-2022 End: 07-11-[address] Hortensia Unger Work Phone: [facility] Start: 07-01-2022 End: 07-01-[address] Hortensia Unger Work Phone: [facility] Start: 06-17-2022 Non-patient / Non-visit Dr. Isacc Unger Work Phone: [facility] Start: 06-16-2022 Non-patient / Non-visit Dr. Isacc Unger Work Phone: [facility] Start: 06-16-2022 End: 06-17-2022 Evaluation and management of inpatient [facility] Start: 06-16-2022 End: 06-17-[address] Hortensia Unger Work Phone: [facility] Work Phone: Start: 06-06-2022 End: 06-06-2022 ambulatory [facility] Work Phone: Start: 06-06-2022 End: 06-06-2022 Departed Referred [facility] Start: 05-09-2022 End: 05-09-2022 Departed Referred [facility] Start: 04-07-2022 End: 04-07-2022 ambulatory [facility] Work Phone: Start: 04-07-2022 End: 04-07-2022 Departed Referred [facility] Start: 03-26-2022 End: 03-26-2022 ambulatory [facility] Work Phone: Start: 03-26-2022 End: 03-26-2022 Departed Referred [facility] Start: 03-26-2022 Registered Referred [facility] Start: 03-16-2022 End: 03-16-2022 ambulatory [facility] Work Phone: Start: 03-16-2022 End: 03-16-2022 Departed Referred [facility] Start: 03-16-2022 Registered Referred [facility] Start: 03-15-2022 End: 03-15-2022 ambulatory [facility] Work Phone: Start: 03-15-2022 End: 03-15-2022 Departed Referred [facility] Start: 03-07-2022 End: 03-07-2022 Emergency department patient visit [facility] Start: 03-07-2022 End: 03-07-2022 ambulatory [facility] Work Phone: Start: 03-07-2022 End: 03-07-2022 Departed Referred [facility] Start: 02-03-2022 End: 02-03-[address] Joao Simon Work Phone: [facility] Work Phone: Start: 02-03-2022 End: 02-03-[address] Joao Simon Work Phone: [facility] Start: 01-06-2022 End: 01-06-[address] Joao Simon Work Phone: [facility] Work Phone: Start: 01-06-2022 End: 01-06-[address] Joao Simon Work Phone: [facility] Start: 12-20-[address] Joao morin Work Phone: [facility] Start: 12-13-[address] Joao morin Work Phone: [facility] Start: 12-10-[address] Joao morin Work Phone: [facility] Start: 12-02-[address] Joao morin Work Phone: [facility] Start: 11-25-[address] Joao morin Work Phone: [facility] Start: 11-23-[address] Joao morin Work Phone: [facility] Start: 11-18-2021 End: 11-18-[address] Joao Simon Work Phone: [facility] Start: 11-04-2021 End: 11-12-2021 Evaluation and management of inpatient Dr. Joao Simon Work Phone: [facility]Trans[facility] Start: 11-04-2021 Non-patient / Non-visit Dr. Rodrick Simon Work Phone: [facility] Start: 11-03-2021 Non-patient / Non-visit Dr. Rodrick Simon Work Phone: [facility] Start: 11-02-2021 End: 11-04-2021 Evaluation and management of inpatient Dr. Joao Simon Work Phone: [facility]Medical Surgical 3 Start: 10-21-2021 End: 10-21-[address] [facility] Start: 10-13-2021 End: 10-13-[address] [facility] Start: 10-06-2021 End: 10-06-[address] [facility] Start: 09-29-2021 End: 09-29-[address] Joe Rosario Work Phone: [facility] Start: 09-14-2021 End: 09-14-[address] [facility] Start: 08-27-2021 End: 08-27-[address] [facility] Start: 08-11-2021 End: 08-11-[address] [facility] Start: 07-28-2021 End: 07-28-[address] Joe Rosario Work Phone: [facility] Start: 07-14-2021 End: 07-14-[address] Joe Rosario Work Phone: [facility] Start: 06-18-2021 End: 06-26-2021 Evaluation and management of inpatient Dr. Joe Rosaroi [facility] Start: 06-18-2021 Non-patient / Non-visit Dr. Peraza Work Phone: [facility] Start: 06-17-2021 Non-patient / Non-visit Dr. Peraza Work Phone: [facility] Start: 06-17-2021 End: 06-18-2021 Evaluation and management of inpatient Dr. Joe Rosario [facility] Start: 06-10-2021 End: 06-10-[address] [facility] Start: 05-12-[address] [facility] Procedures Date Procedure Procedure Detail Performing [...] Start: 01-27-2025 Influenza vaccination Influenza Vaccine (#1) [facility] Start: 10-09-2024 [facility] Start: 05-29-2024 Advance Directive Discussion Advance Directive Discussion [facility] Start: 05-29-2024 Medicare Advantage Annual Wellness Visit Medicare Advantage Annual Wellness Visit [facility] Start: 01-29-2023 Patient referral [facility] Work Phone: Start: 06-17-2022 Patient discharge [facility] Start: 06-16-2022 Assessment of risk of venous thromboembolism [facility] Start: 06-16-2022 Cardiac monitoring [facility] Start: 06-16-2022 Catheterization of vein [facility] Start: 06-16-2022 Continuous pulse oximetry [facility] Start: 06-16-2022 Exercises [facility] Start: 06-16-2022 Insertion of catheter into peripheral vein [facility] Start: 06-16-2022 Measuring intake and output [facility] Start: 06-16-2022 Notification of physician [facility] Start: 06-16-2022 Oxygen therapy [facility] Start: 06-16-2022 Providing care according to standard [facility] Start: 06-16-2022 Provision of activity privileges [facility] Start: 06-16-2022 Referral to occupational therapist [facility] Start: 06-16-2022 Referral to service [facility] Start: 06-16-2022 Speech therapy assessment [facility] Start: 06-16-2022 [facility] Start: 06-16-2022 Following clinical pathway protocol [facility] Start: 06-16-2022 Verification routine [facility] Start: 06-16-2022 Admission procedure [facility] Start: 06-16-2022 [facility] Start: 12-24-2021 Blood chemistry [facility] Work Phone: Start: 12-17-2021 Blood chemistry [facility] Work Phone: Start: 12-10-2021 Blood chemistry [facility] Work Phone: Start: 12-03-2021 Blood chemistry [facility] Work Phone: Start: 11-29-2021 Prothrombin time [facility] Work Phone: Start: 11-26-2021 Blood chemistry [facility] Work Phone: Start: 11-25-2021 Prothrombin time [facility] Work Phone: Start: 11-22-2021 Prothrombin time [facility] Work Phone: Start: 11-19-2021 Blood chemistry [facility] Work Phone: Start: 11-18-2021 Prothrombin time [facility] Work Phone: Start: 11-15-2021 Prothrombin time [facility] Work Phone: Start: 11-14-2021 Development of care plan [facility] Work Phone: Start: 11-12-2021 Blood chemistry [facility] Work Phone: Start: 11-12-2021 Patient discharge [facility] Work Phone: Start: 11-11-2021 SARS-CoV-2 (COVID-19) Ag [Presence] in Respiratory specimen by Rapid immunoassay [facility] Work Phone: Start: 11-11-2021 [facility] Work Phone: Start: 11-11-2021 Prothrombin time [facility] Work Phone: Start: 11-10-2021 Referral to service [facility] Work Phone: Start: 11-08-2021 [facility] Work Phone: Start: 11-05-2021 Speech therapy management [facility] Work Phone: Start: 11-05-2021 Developing a treatment plan [facility] Work Phone: Start: 11-05-2021 Development of care plan [facility] Work Phone: Start: 11-05-2021 Speech therapy assessment [facility] Work Phone: Start: 11-04-2021 Following clinical pathway protocol [facility] Work Phone: Start: 11-04-2021 Admission procedure [facility] Work Phone: Start: 11-04-2021 Measuring intake and output [facility] Work Phone: Start: 11-04-2021 Patient referral to dietitian [facility] Work Phone: Start: 11-04-2021 Referral to occupational therapist [facility] Work Phone: Start: 11-04-2021 Referral to service [facility] Work Phone: Start: 11-04-2021 Verification routine [facility] Work Phone: Start: 11-04-2021 Vital signs measurements [facility] Work Phone: Start: 11-04-2021 [facility] Work Phone: Start: 11-04-2021 Patient discharge [facility] Work Phone: Start: 11-03-2021 Inhalation therapy procedure [facility] Work Phone: Start: 11-02-2021 Assessment of risk of venous thromboembolism [facility] Work Phone: Start: 11-02-2021 Insertion of catheter into peripheral vein [facility] Work Phone: Start: 11-02-2021 Providing care according to standard [facility] Work Phone: Start: 11-02-2021 Provision of activity privileges [facility] Work Phone: Start: 11-02-2021 Referral to occupational therapist [facility] Work Phone: Start: 11-02-2021 Referral to service [facility] Work Phone: Start: 11-02-2021 [facility] Work Phone: Start: 11-02-2021 Following clinical pathway protocol [facility] Work Phone: Start: 11-02-2021 Admission procedure [facility] Work Phone: Start: 03-07-2018 Diabetic foot examination Diabetic Foot Exam [facility] Start: 03-06-2018 Hepatitis B screening Urine Albumin:Creatinine Ratio [facility] Start: 03-06-2018 Hepatitis B surface antibody level LDL Cholesterol [facility] Start: 09-04-2017 Hemoglobin A1c measurement HbA1C [facility] Start: 04-29-2017 Glaucoma screening Dilated Retinal Exam [facility] Start: 02-06-2016 Urine microalbumin profile DTaP,Tdap,Td Vaccine (1 - Tdap) [facility] Start: 2012 RSV Vaccine (1 - 1-dose 75+ series) RSV Vaccine (1 - 1-dose 75+ series) [facility] Start: 1987 Shingrix Vaccine (1 of 2) Shingrix Vaccine (1 of 2) [facility] Anion gap measurement [facility] Work Phone: BUN/Creatinine ratio [facility] Work Phone: Calcium [Mass/volume ] in Serum or Plasma [facility] Work Phone: Carbon dioxide, tota l [Moles/volume] in Serum or Plasma [facility] Work Phone: Chloride [Moles/volu me] in Serum or Plasma [facility] Work Phone: Creatinine [Moles/vo lume] in Serum or Plasma [facility] Work Phone: Folate [Mass/volume] in Serum or Plasma [facility] Glucose [Mass/volume ] in Serum or Plasma [facility] Work Phone: Hematocrit [Volume Fraction] of Blood [facility] Work Phone: Hemoglobin [Mass/vol ume] in Blood [facility] Work Phone: INR in Blood by Coag ulation assay [facility] Work Phone: [place] and lambda lig ht chains [facility] Leukocytes [#/volume ] in Blood [facility] Work Phone: Mean corpuscular hem oglobin concentration determination [facility] Work Phone: Mean corpuscular hem oglobin determination [facility] Work Phone: Measurement of renal function [facility] Work Phone: Neutrophil count [facility] Work Phone: Neutrophil percent differential count [facility] Work Phone: Patient Education [facility] Work Phone: Patient referral [facility] Work Phone: Platelets [#/volume] in Blood [facility] Work Phone: Potassium [Moles/vol ume] in Serum or Plasma [facility] Work Phone: Prothrombin time [facility] Work Phone: Red blood cell count [facility] Work Phone: Red cell distributio n width determination [facility] Work Phone: Sodium [Moles/volume ] in Serum or Plasma [facility] Work Phone: Thiamine measurement [facility] Thyroid stimulating hormone measurement [facility] Urea nitrogen [Mass/ volume] in Serum or Plasma [facility] Work Phone: [place] Heart [facility] Work Phone: Vitamin B12 measurement [facility] Immunizations Immunization Date Immunization Notes Care Provider Fran perez 11-09-2021 Covid (Pfizer) Dr. Joao lakhani Work Phone: [facility] 04-16-[address] Joe Rosario Work Phone: [facility] 03-17-2021 Covid (Pfizer) Dr. Joe Riggs nnedy Work Phone: [facility] 07-16-2020 Covid (Pfizer) Dr. Joe Riggs nnedy Work Phone: [facility] 06-24-2020 Covid (Pfizer) Dr. Joe Riggs nnedy Work Phone: [facility] 02-15-2017 influenza, high dose seasonal, preservative-free Diana Mckeon MD Work Phone: [facility] 02-15-2017 influenza virus vacc ine, unspecified formulation Diana Mckeon MD Work Phone: [facility] 05-13-2016 influenza, high dose seasonal, preservative-free Diana Mckeon MD Work Phone: [facility] 03-08-[address] Joe Rosario Work Phone: [facility] 02-05-2016 tetanus and diphther ia toxoids, adsorbed, preservative free, for adult use (5 Lf of tetanus toxoid and 2 Lf of diphtheria toxoid) Diana Mckeon MD Work Phone: [facility] 03-31-2015 influenza, high dose seasonal, preservative-free Diana Mckeon MD Work Phone: [facility] 06-30-2014 pneumococcal conjuga te vaccine, 13 valent Diana Mckeon MD Work Phone: [facility] 03-26-2014 influenza, seasonal, injectable Diana Mckeon MD Work Phone: [facility] 03-30-2013 influenza virus vacc ine, unspecified formulation Diana Mckeon MD Work Phone: [facility] 05-07-2012 influenza virus vacc ine, unspecified formulation Diana Mckeon MD Work Phone: [facility] 04-18-2011 influenza virus vacc ine, unspecified formulation Diana Mckeon MD Work Phone: [facility] 02-17-2009 influenza virus vacc ine, unspecified formulation Diana Mckeon MD Work Phone: [facility] Work Phone: 04-01-2008 influenza virus vacc ine, unspecified formulation Diana Mckeon MD Work Phone: [facility] 03-28-2007 influenza virus vacc ine, unspecified formulation Diana Mckeon MD Work Phone: [facility] Work Phone: 05-15-2006 influenza virus vacc ine, unspecified formulation Diana Mckeon MD Work Phone: [facility] 02-26-2006 pneumococcal polysaccharide vaccine, 23 valent Diana Mckeon MD Work Phone: [facility] 01-13-2006 tetanus and diphther ia toxoids, adsorbed, preservative free, for adult use (2 Lf of tetanus toxoid and 2 Lf of diphtheria toxoid) Diana Mckeon MD Work Phone: [facility] 03-22-2005 influenza virus vacc ine, unspecified formulation Diana Mckeon MD Work Phone: [facility] Payers Date Payer Category Payer Self-pay [id number] 2018 Medicare (Managed Care) [employer] PPO [id number] 2015 Medicare [id number] Unknown [id number] 2.16.840.1.982925.3.579 .2.462 Unknown [id number] 2.16.840.1.098533.3.579 .2.462 Unknown [id number] 2.16.840.1.277657.3.579 .2.462 Unknown [id number] 2.16.840.1.471353.3.579 .2.462 Unknown [id number] 2.16.840.1.092631.3.579 .2.462 Unknown [id number] 2.16.840.1.442132.3.579 .2.462 Unknown [id number] 2.16.840.1.037193.3.579 .2.462 Unknown [id number] 2.16.840.1.637133.3.579 .2.462 Unknown [id number] 2.16.840.1.336014.3.579 .2.462 Unknown [id number] 2.16.840.1.230881.3.579 .2.462 Unknown [id number] 2.16.840.1.864364.3.579 .2.462 Unknown [id number] 2.16.840.1.526508.3.579 .2.462 Unknown [id number] 2.16.840.1.705826.3.579 .2.462 Unknown [id number] 2.16.840.1.603150.3.579 .2.462 Unknown [id number] 2.16.840.1.604318.3.579 .2.462 Unknown [id number] 2.16.840.1.704783.3.579 .2.462 Unknown [id number] 2.16.840.1.400866.3.579 .2.462 Unknown [id number] 2.16.840.1.388774.3.579 .2.462 Unknown [id number] 2.16.840.1.589777.3.579 .2.462 Unknown [id number] 2.16.840.1.864898.3.579 .2.462 Unknown [id number] 2.16.840.1.900932.3.579 .2.462 Unknown [id number] 2.16.840.1.169875.3.579 .2.462 Unknown [id number] 2.16.840.1.948679.3.579 .2.462 Unknown [id number] 2.16.840.1.661295.3.579 .2.462 Unknown [id number] 2.16.840.1.492635.3.579 .2.462 Unknown [id number] 2.16.840.1.035182.3.579 .2.462 Unknown [id number] 2.16.840.1.109391.3.579 .2.462 Unknown [id number] 2.16.840.1.611437.3.579 .2.462 Unknown [id number] 2.16.840.1.888978.3.579 .2.462 Social History Date Type Detail Facility Start: 06-18-2021 End: 02-02-2023 Tobacco smoking status TXIS Unknown if ever smoked [facility] Start: 04-11-2019 None [facility] Start: 09-06-2019 Alone [facility] Start: 1935 Sex Assigned At Female W [facility] Start: 03-24-2024 End: 12-17-2024 Tobacco smoking status TXIS Ex-smoker (finding) [facility] Start: 08-02-2024 End: 09-10-2024 Sex Female (finding) [facility] Start: 05-29-1962 End: 05-29-1987 History of tobacco use Current smoker [facility] Start: 05-29-1962 End: 05-29-1987 History of tobacco use Cigarette Smoker [facility] Start: 12-17-2024 Cigarettes smoked current (pack per day) - Reported 1 [facility] Start: 12-17-2024 Tobacco use and exposure Smokeless tobacco non-user [facility] Start: 12-17-2024 Alcoholic beverage intake Current drinker of alcohol (finding) [facility] Start: 12-17-2024 Tobacco use panel [facility] Adult Depression Screening Assessment 1 [facility] Start: 03-29-2013 Alcohol Comment 1 glass of win e per month or less [facility] Start: 1935 Sex assigned at Not on file C [facility] Medical Equipment Procedure Code Equipment Code Equipment Origin al Text Equipment Identifier Dates [place] Ptfe 1.2 Cm X 10 Cm - [id number] Start: 04-02-2013 Comment on above: Description: [place] [address] edgets Test blood sugar(s) one times daily. Dx: Type 2 DM - Controlled E11.40 Insulin: No [id number] Start: 02-16-2016 End: 12-20-2024 Test blood sugar(s) one times daily. Dx: Type 2 DM - Controlled E11.40 Insulin: No [id number] Start: 02-16-2016 End: 12-20-2024 Goals Date Patient Goal Desired Activity /State Functional Status Date Assessment Result Facility 06-17-2022 Functional status Bedrest [facility] Work Phone: 11-12-2021 Functional status Ambulates;Up ad romero [facility] Work Phone: 11-10-2021 Functional status Ambulates;Up ad romero [facility] Work Phone: 11-04-2021 Functional status Chair [facility] Work Phone: 06-25-2021 Functional status Activity Abili ty Independent [facility] Work Phone: 06-22-2021 Functional status Ambulates [facility] Work Phone: 06-18-2021 Functional status Patient Activity Chair [facility] Work Phone: 06-18-2021 Functional status Activity Abili ty With Assist of 1 [facility] Work Phone: 10-13-2015 Are you deaf, or do you have serious difficulty hearing No 10/13/2015 9:43 AM Henrietta Ortega RN No [facility] 10-13-2015 Are you blind, or do you have serious difficulty seeing, even when wearing glasses No 10/13/2015 9:43 AM Henrietta Ortega, SAI No [facility] 10-13-2015 Do you have serious difficulty walking or climbing stairs No 10/13/2015 9:43 AM Henrietta Ortega, SAI No [facility] 10-13-2015 Do you have difficul ty dressing or bathing No 10/13/2015 9:43 AM Henrietta Ortega RN No [facility] 10-13-2015 Because of a physica l, mental, or emotional condition, do you have difficulty doing errands alone such as visiting a physician's office or shopping No 10/13/2015 9:43 AM Henrietta Ortega RN No [facility] Mental Status Date Assessment Result Facility 06-17-2022 Cognitive function Voice/Name [facility] Work Phone: 06-16-2022 Cognitive function Voice/Name [facility] Work Phone: 11-12-2021 Cognitive function Voice/Name [facility] Work Phone: 11-10-2021 Cognitive function Comprehension Ability Demonstrates ability to follow instructions/comprehend [facility] Work Phone: 11-09-2021 Cognitive function Voice/Name [facility] Work Phone: 11-05-2021 Cognitive function Comprehension Ability Demonstrates ability to follow instructions/comprehend [facility] Work Phone: 11-04-2021 Cognitive function Appropriate;Cooperativ e [facility] Work Phone: 06-25-2021 Cognitive function Voice/Name [facility] Work Phone: 06-18-2021 Cognitive function Voice/Name [facility] Work Phone: 10-13-2015 Because of a physica l, mental, or emotional condition, do you have serious difficulty concentrating, remembering, or making decisions No 10/13/2015 9:43 AM EDT Henrietta Newberry RN No [facility] Clinical Notes 04-02-2013 to 12-20-2024 Diana Mckeon MD - 12/20/2024 5:46 PM EDT Note Date & Type Note Facility 12-20-2024 Note HNO ID: [id number] Author: DIANA MCKEON MD Service: ? Author Type: Physician Type: Progress Notes Filed: 12/20/2024 17:59 Note Text: [facility] - NEW PATIENT EVALUATION Recording using [employer] software for draft documentation of the visit was discussed with the patient/authorized area representative; all questions welcomed and answered. Patient/authorized area representative agreed to proceed Referring Provider: Melo Monzon [address] [place] [id number] Dear Melo Monzon: Thank you for referring [...] three years ago by a neurologist in [place]. At the time of diagnosis, she was [...] physical therapy and an exercise class called [employer] [facility], which she enjoys. She does not [...] in the corn (more content not included)... [facility] 12-20-2024 History of Present illness Narrative [facility] - NEW PATIENT EVALUATION Recording using [employer] software for draft documentation of the visit was discussed with the patient/authorized area representative; all questions welcomed and answered. Patient/authorized area representative agreed to proceed Referring Provider: Melo Monzon [address] [place] [id number] Dear Melo Monzon: Thank you for referring [...] three years ago by a neurologist in [place]. At the time of diagnosis, she was [...] physical therapy and an exercise class called [employer] [facility], which she enjoys. 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), Coronary atherosclerosis of unspecified type of vessel, [place] or graft (01/24/2005), Depressive disorder, not elsewhere classified (10/15/2008), Diverticulosis of colon (without mention of hemorrhage), DVT (deep venous thrombosis) ([facility]) (03/04/2009), Dysmetabolic syndrome X (07/30/2008), 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 has a past surgical history that [...] Vibration sense reduced at ankles. Coordination Right: Niqytd-yd-rjar normal. Rapid alternating movement normal.Left: Wawrst-xb-cfhh normal. Rapid alternating movement normal. Movement Disorders [...] diagnosed 3 years ago by neurology in [place]; currently on carbidopa-levodopa (Sinemet) with unclear benefit. [...] vibratory sensation in ankles, mild tremor on rplhdj-rf-lnkp testing, micrographia, and slowed speech. More convincing [...] mg twice daily Level of service : 52494 (45-59 min). Time spent 56 min on the day of service, which included preparing to see the patient, dafg-hz-qvjc patient care, completing clinical documentation, obtaining and/or [...] Diana Mckeon MD documented in this encounter [facility] 10-09-2024 Radiology Diagnostic study note [facility] Imaging Services [address] [place] [address] Spine Cervical without Contras MR#: [id number] Acct: [id number] Name: COLETTE RICHARDSON Rep #: [id number] : 1935 F 89 From: Kristen Schmidt MD PCP: Dr. Melo Monzon MD Status: REG ER Study:Spine Cervical without Contras Date of Exam: 10/09/24 Exam# [id number] Ordering Dr: Se Schmidt DO EXAM: CT [...] changes cervical spine as described. Reading Location: [facility] CC: Dr. Melo Monzon MD; Dr. Se Schmidt DO ~ Straightener And Aligner: Signed [facility] 10-09-2024 Radiology Diagnostic study note [facility] Imaging Services [address] [place] [address] Brain/Head without Contrast MR#: [id number] Acct: [id number] Name: COLETTE RICHARDSON Rep #: [id number] 2 : 1935 F 89 From: Kristen Schmidt MD PCP: Dr. Melo Monzon MD Status: REG ER Study:Brain/Head without Contrast Date of Exa m: 10/09/24 Exam# [id number] Ordering Dr: Se Schmidt DO EXAM: CT [...] evaluation with MRI is recommended. Reading Location: [facility] CC: Dr. Melo Monzon MD; Dr. Se Schmidt DO ~ Straightener And Aligner: Signed [facility] 10-09-2024 Hospital Discharge instructions Additional Instructions Your INR is 2.[address] head and neck negative for acute process. Use Tylenol as needed. Follow-up with your doctor. [facility] Work Phone: 02-02-2023 Discharge summary Note Date/Time February 02, 2023 5:54pm [facility] Medical Records Department [address] [place] [address] Emergency Department Summary 02/02/23 MR#: [id number] Acct: [id number] Name: COLETTE RICHARDSON Rep #:[id number] : 1935 87 From: Matt Coy [...] concerned that that might be causing this. [facility] Medical History Atherosclerotic heart disease of [place] coronary artery without angina pectoris Atrial fibrillation with RVR (10/01/16) Bilateral breast cancer Depression Essential hypertension Frequent falls History of non-ST elevation myocardial infarction (NSTEMI) (10/01/16) History of Parkinson's disease History of pulmonary embolus (PE) Hypercoagulable state detention current use of anticoagulant Memory loss Nonrheumatic [...] release 24 hr 150 mg PO BREAKFAST FXRYSZYODM44/07/22 [History Last Taken 06/16/22 09:15] alprazolam 0.25 [...] AdvReac Itching Verified 02/02/23 15:12 [From Vicodin] Mfswswo-BPI-LgQ Reductase AdvReac Other Verified 02/02/23 15:12 Inhibitor [Mysxahs-Qnx-Tul Reductase Inhibitor] Surgical History H/O coronary artery [...] % (Auto) 65.1 Lymph % (Auto) 24.4 George % (Auto) 7.9 Eos % (Auto) 1.7 [...] Clarity Clear Urine pH 6.5 Ur Specific Crowley 1.015 Urine Protein Negative Urine Glucose (UA) [...] 3-5 Days if not improving Disposition Disposition: [facility] What to do if you have Problems For any increased pain, shortness of breath, bleeding, nausea or vomiting, chestpain, or any unexpected problems, contact your Primary Care Provider. Call [facility] ([phone]) or report to the closest Emergency Room. Call 911 if necessary. 02/02/232013 <Electronically signed by Matt Coy MD> Cosigner Signature (if applicable): CC: Dr. Joao Simon MD ~ Signed [facility] Work Phone: 1(235) 130-719301-20-[address] Lopez [facility] June 17, 2022 1:53pm Note Date/Time June 17, 2022 1 2:29pm [facility] Medical Records Department [address] [place] [address] Instructions for Home/Discharge Instructions 06/17/22 1229 MR#: [id number] Acct: [id number] Name: COLETTE RICHARDSON Rep #:[id number] : 1935 86 From: Jesenia Lopez [...] can be placed): NonSkilled NH/Intermed Care 06/17/22 7503<Electronically signed by Jesenia Lopez MD>Jesenia Lopez MD CC: Dr. Hortensia Unger MD; Dr. Gonzalo Stephens DO ~ Signed [facility] Work Phone: 1(916) 882-615801-19-2023 History and physical note Author Dr. Stephens [facility] June 16, 2022 8:43pm Note Date/Time June 16, 2022 8 :34pm [facility] Medical Records Department [address] [place] [address] H&P Exam - Hospitalist 06/16/222028 MR#: [id number] Acct: [id number] Name: COLETTE RICHARDSON Rep #:[id number] 4 : 1935 86 From: Gonzalo Stephens DO PCP: Dr. Hortensia Unger MD Status:ADM HUGO Location: [facility] [place] [address] HPI - General General Date of Admission: 06/16/22 Date of Service: 06/16/22 Chief Complaint: Right upper extremity weakness, slurred speech HPI Narrative COLETTE RICHARDSON, is a 86 F who presents to the emergency room at [facility] from assisted living facility with complaints [...] her speech is slurred at this time. [facility] Medical History Atherosclerotic heart disease of [place] coronary artery without angina pectoris Atrial fibrillation with RVR (10/01/16) Bilateral breast cancer Depression Essential hypertension Frequent falls History of non-ST elevation myocardial infarction (NSTEMI) (10/01/16) History of pulmonary embolus (PE) Hypercoagulable state detention current use of anticoagulant Memory loss Nonrheumatic [...] release 24 hr 150 mg PO BREAKFAST ZNMLDMETPI92/07/22 [History Last Taken 06/16/22 09:15] alprazolam 0.25 [...] AdvReac Itching Verified 06/16/22 12:15 [From Vicodin] Ixoylpg-SKQ-AkG Reductase AdvReac Other Verified 06/16/22 16:35 Inhibitor [Zudfwdg-Rox-Cch Reductase Inhibitor] Surgical History H/O coronary artery [...] % (Auto) 56.3, Lymph % (Auto) 30.6, George % (Auto) 8.2, Eos % (Auto) 3.9, [...] GFR (MDRD) Non-Af 83, BUN/Creatinine Ratio 16.8, Xuppdqd42, Calcium 8.9, Troponin I High Sens 9 [...] confirmed on 06/16/2022 13:10:16 (ET). Electronically Signed: Agaptio Jimenez MD at 13:11 EST , Head/Neck [...] team: 55-minute Charges/Coding Visit Charges Inpatient E&M: 34568 Init Hosp L2 06/16/222042 <Electronically signed by Gonzalo Stephens DO> Cosigner Signature (if applicable): CC: Dr. Hortensia Unger MD; Dr. Gonzalo Stephens DO~ Signed [facility] Work Phone: 1(770) 634-508601-19-[address] Davis [facility] June 16, 2022 4:46pm Note Date/Time June 16, 2022 1 2:52pm [facility] Medical Records Department [address] [place] [address] Emergency Department Summary 06/16/22 MR#: [id number] Acct: [id number] Name: COLETTE RICHARDSON Rep #:[id number] 4 : 1935 86 From: Jesse Davis [...] PFSH Medical History Atherosclerotic heart disease of [place] coronary artery without angina pectoris Atrial fibrillation with RVR (10/01/16) Bilateral breast cancer Depression Essential hypertension Frequent falls History of non-ST elevation myocardial infarction (NSTEMI) (10/01/16) History of pulmonary embolus (PE) Hypercoagulable state detention current use of anticoagulant Memory loss Nonrheumatic [...] release 24 hr 150 mg PO BREAKFAST [id number]/07/22 [History Last Taken 06/16/22 09:15] alprazolam 0.25 [...] AdvReac Itching Verified 06/16/22 12:15 [From Vicodin] Roxslkk-LVV-MfJ Reductase AdvReac Other Verified 06/16/22 12:15 Inhibitor [Yrgeqtg-Idd-Fjf Reductase Inhibitor] Surgical History H/O coronary artery [...] line established on arrival. Patient placed on phototypesetting equipment monitor. Stroke teamwas activated after my evaluation of [...] % (Auto) 56.3 Lymph % (Auto) 30.6 George % (Auto) 8.2 Eos % (Auto) 3.9 [...] Parkinson's disease Disposition Disposition: Acute Care Hospital [facility] What to do if you have Problems For any increased pain, shortness of breath, bleeding, nausea or vomiting, chestpain, or any unexpected problems, contact your Primary Care Provider. Call [facility] ([phone]) or report to the closest Emergency Room. Call 911 if necessary. 06/16/22 1646 <Electronically signed by Jesse Davis DO> Cosigner Signature (if applicable): CC: Dr. 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, 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 Heart failure with preserved ejection fraction chronic Acute hyponatremia acute Acute metabolic encephalopathy acute Hypokalemia [facility] Work Phone: 1(410) 953-199711-05-2013 Evaluation note* Diagnosis Onset Date Resolution Status Dyspnea on minimal exertion acute Essential hypertension acute Paroxysmal atrial fibrillation acute 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, 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 Heart failure with preserved ejection fraction chronic Acute hyponatremia acute Acute metabolic encephalopathy acute Frequent falls acute Hypokalemia acute Memory loss acute Poor balance [facility] Work Phone: 1(174) 743-649311-05-2013 Evaluation note* Diagnosis Onset Date Resolution Status [...] Restrictive lung disease acu te Hypertension chronic [facility] Work Phone: 1(728) 708-905311-05-2013 Evaluation note* Diagnosis Onset Date Resolution Status [...] resolved Acute metabolic encephalopathy resolved Hypokalemia resolved [facility] Work Phone: evaluation note* Diagnosis Onset Date Resolution Status Allergic rhinitis acute Atrial fibrillation acute Coronary artery disease acut e Debility acute Depression acute Edema acute Hyperlipidemia acute Insomnia acute Left hip pain acute Left rotator cuff tear arthropathy acute [facility] Work Phone: Evaluation note* Diagnosis Onset Date Resolution Status Hyperlipidemia acute Allergic rhinitis resolved Debility resolved Depression resolved Insomnia resolved Left hip pain resolved Left rotator cuff tear arthropathy resolved Dyspnea on minimal exertion acute Essential hypertension acute Paroxysmal atrial fibrillation acute 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, 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 Heart failure with preserved ejection fraction chronic [facility] Work Phone: Evaluation note* Diagnosis Onset Date Resolution Status Acute hyponatremia resolved Acute metabolic encephalopathy resolved Hypokalemia resolved Atrial fibrillation acute Coronary artery disease acut e Debility acute Depression acute Edema acute Hyperlipidemia acute Insomnia acute Restrictive lung disease acu te Hypertension chronic Acute hyponatremia resolved Acute metabolic encephalopathy resolved Hypokalemia resolved [facility] Work Phone: evaluation noteNo assessment information available [facility] Work Phone: evaluation note* Diagnosis Onset Date Resolution Status Acute CVA (cerebrovascular accident) acute History of atrial fibrillation acute History of hypertension acut e History of Parkinson's disease acute [facility] Work Phone: Evaluation note* Diagnosis Onset Date Resolution Status Acute CVA (cerebrovascular accident) acute History of atrial fibrillation acute History of hypertension acut e History of Parkinson's disease acute Right arm weakness acute [facility] Work Phone: Evaluation note* Diagnosis Onset Date Resolution Status History of atrial fibrillation acute History of hypertension acut e History of Parkinson's disease acute Acute CVA (cerebrovascular accident) resolved Right arm weakness resolved [facility] Work Phone: Evaluation note* Diagnosis Onset Date Resolution Status Abnormality of gait and mobility acute History of stroke acute Parkinsonism acute Polyneuropathy acute Dementia chronic [facility] Work Phone: Evaluation note* Diagnosis Parkinsonism, unspecified Parkinsonism type (HCC)- Primary Multifactorial gait disorder Abnormality of gait documented in [facility] encounter [facility] Phone: Reason for referral (narrative)No reason for referral information available[facility]er[facility] Work Phone: Summary Purpose Family History [...] Date/ Time Name of Medical Power of Director Adult pool crouch son June 17, 2021 1:59pm Living Will Yes June 21 12:54pm Power of Director Adult Yes June 21, 2021 12:54pm Advance Directive Response Recorded Date/ Time Living Will Yes June 21 12:54pm Power of Director Adult Yes June 21, 2021 12:54pm Advance Directive Response Recorded Date/ Time Living Will Yes November 02, 2021 3 :59pm Power of Director Adult Yes November 02, 2021 3:59pm Advance Directive Response Recorded Date/ Time Name of Medical Power of Director Adult DAUGHTER, KRISTIN GRIER November 02, 2021 3:59pm Name of Medical Power of Director Adult Pool castillo November 05, 2021 2:10pm Living Will Yes November 05, 2021 2:10pm Power of Director Adult Yes November 05 2:10pm Advance Directive Response Recorded Date/ Time Living Will No March 07 3:07pm Power of Director Adult No March 07, 2022 3:07pm Advance Directive Response Recorded Date/ Time Living Will No March 07 2:07pm Power of Director Adult No March 07, 2022 2:07pm Advance Directive Response Recorded Date/ Time Name of Medical Power of Director Adult Pool castillo June 16, 2022 6:12pm Living Will Yes June 16 6:12pm Power of Director Adult Yes June 16, 2022 6:12pm Advance Directive Response Recorded Date/ Time Name of Medical Power of Director Adult Pool castillo June 16, 2022 7:12pm Living Will Yes June 16 7:12pm Power of Director Adult Yes June 16, 2022 7:12pm Advance Directive Response Recorded Date/ Time Living Will Yes June 16 7:12pm Power of Director Adult Yes June 16, 2022 7:12pm Advance Directive Response Recorded Date/ Time Living Will Yes June 16 6:12pm Power of Director Adult Yes June 16, 2022 6:12pm Advance Directive Response Recorded Date/ Time Do you have a Healthcare Power of Director Adult? No October 09, 2024 7:14pm Chief Complaint [...] ENCEPHALOPATHY, HYPONATREMIA HYPONATREMIA, METABOLIC ENCEPHALOPATHY, FREQ FALLS [facility]FWAY LABWORK Reason for Visit Dyspnea on minimal [...] ENCEPHALOPATHY, HYPONATREMIA HYPONATREMIA, METABOLIC ENCEPHALOPATHY, FREQ FALLS HALFWAY LABWORK HALFWAY LABWORK HALFWAY LAB WORK HALFWAY LAB WORK HALFWAY LABWORK HALFWAY LABWORK HALFWAY LABWORK HALFWAY LAB WORK Reason for Visit Dyspnea on [...] ENCEPHALOPATHY, HYPONATREMIA HYPONATREMIA, METABOLIC ENCEPHALOPATHY, FREQ FALLS HALFWAY LABWORK HALFWAY LABWORK HALFWAY LAB WORK HALFWAY LAB WORK HALFWAY LABWORK HALFWAY LABWORK HALFWAY LABWORK HALFWAY LAB WORK HALFWAY LAB WORK Reason for Visit Acute hyponatremia Acute metabolic encephalopathy Hypokalemia Atrial fibrillation Coronary artery disease Debility Depression Edema Hyperlipidemia Insomnia Restrictive lung disease Hypertension Acute hyponatremia Acute metabolic encephalopathy Hypokalemia Chief Complaint [facility]WORK [facility]WORK [facility] LAB WORK HALFWAY LAB WORK HALFWAY LABWORK HALFWAY LABWORK HALFWAY LABWORK HALFWAY LAB WORK HALFWAY LAB WORK HALFWAY LAB WORK SOB Chief Complaint HALFWAY LABWORK HALFWAY LABWORK HALFWAY LAB WORK HALFWAY LAB WORK HALFWAY LABWORK HALFWAY LABWORK HALFWAY LABWORK HALFWAY LAB WORK HALFWAY LAB WORK HALFWAY LAB WORK SOB HALFWAY LABWORK Chief Complaint HALFWAY LAB WOR K HALFWAY LAB WORK HALFWAY LABWORK HALFWAY LABWORK HALFWAY LABWORK HALFWAY LAB WORK HALFWAY LAB WORK HALFWAY LAB WORK SOB HALFWAY LABWORK HALFWAY LAB WORK Chief Complaint HALFWAY LABWORK HALFWAY LABWORK HALFWAY LABWORK HALFWAY LAB WORK HALFWAY LAB WORK HALFWAY LAB WORK SOB HALFWAY LABWORK HALFWAY LAB WORK HALFWAY LABWORK Chief Complaint HALFWAY LABWORK HALFWAY LAB WORK HALFWAY LAB WORK HALFWAY LAB WORK SOB HALFWAY LABWORK HALFWAY LAB WORK HALFWAY LAB WORK HALFWAY LABWORK Chief Complaint HALFWAY LAB WOR K SOB HALFWAY LABWORK HALFWAY LAB WORK HALFWAY LAB WORK HALFWAY LABWORK HALFWAY LAB WORK HALFWAY LABWORK Chief Complaint HALFWAY LAB WOR K SOB HALFWAY LABWORK HALFWAY LAB WORK HALFWAY LAB WORK HALFWAY LABWORK HALFWAY LAB WORK [facility]WORK RIGHT UPPER EXTREMITY WEAKNESS, SLURRED SPEECH Reason for Visit Acute CVA (cerebrova scular accident) History of atrial fibrillation History of hypertension History of Parkinson's disease Chief Complaint HALFWAY LAB WOR K SOB [facility]FWAY LABWORK HALFWAY LAB WORK HALFWAY LAB WORK HALFWAY LABWORK HALFWAY LAB WORK [facility]FW[facility] LABWORK RIGHT UPPER EXTREMITY WEAKNESS, SLURRED SPEECH RIGHT UPPER EXTREMITY WEAKNESS, SLURRED SPEECH Reason for Visit Acute CVA (cerebrova scular accident) History of atrial fibrillation History of hypertension History of Parkinson's disease Right arm weakness Chief Complaint [facility]FWAY LABWORK HALFWAY LAB WORK HALFWAY LABWORK RIGHT UPPER EXTREMITY WEAKNESS, SLURRED SPEECH RIGHT UPPER EXTREMITY WEAKNESS, SLURRED SPEECH RIGHT UPPER EXTREMITY WEAKNESS, SLURRED SPEECH HALFWAY LABWORK LABWORK [facility]FWAY LABWORK Reason for Visit History of atrial fi brillation History of hypertension History of Parkinson's disease Acute CVA (cerebrovascular accident) Right arm weakness Chief Complaint [facility]FWAY LABWORK RIGHT UPPER EXTREMITY WEAKNESS, SLURRED SPEECH RIGHT UPPER EXTREMITY WEAKNESS, SLURRED SPEECH RIGHT UPPER EXTREMITY WEAKNESS, SLURRED SPEECH HALFWAY LABWORK LABWORK HALFWAY LABWORK LABWORK LABWORK Reason for Visit History of atrial fi brillation History of hypertension History of Parkinson's disease Acute CVA (cerebrovascular accident) Right arm weakness Chief Complaint [facility]FWAY LABWORK RIGHT UPPER EXTREMITY WEAKNESS, SLURRED SPEECH RIGHT UPPER EXTREMITY WEAKNESS, SLURRED SPEECH RIGHT UPPER EXTREMITY WEAKNESS, SLURRED SPEECH [facility]FWAY LABWORK LABWORK HALFWAY LABWORK LABWORK LABWORK HALFWAY LAB WORK LABWORK Reason for Visit History of atrial fi brillation History of hypertension History of Parkinson's disease Acute CVA (cerebrovascular accident) Right arm weakness Chief Complaint HALFWAY LABWORK RIGHT UPPER EXTREMITY WEAKNESS, SLURRED SPEECH RIGHT UPPER EXTREMITY WEAKNESS, SLURRED SPEECH RIGHT UPPER EXTREMITY WEAKNESS, SLURRED SPEECH HALFWAY LABWORK LABWORK HALFWAY LABWORK LABWORK LABWORK HALFWAY LABWORK HALFWAY LAB WORK LABWORK Reason for Visit History of atrial fi brillation History of hypertension History of Parkinson's disease Acute CVA (cerebrovascular accident) Right arm weakness Chief Complaint RIGHT UPPER EXTREMIT Y WEAKNESS, SLURRED SPEECH RIGHT UPPER EXTREMITY WEAKNESS, SLURRED SPEECH RIGHT UPPER EXTREMITY WEAKNESS, SLURRED SPEECH [facility]FWAY LABWORK LABWORK HALFWAY LABWORK LABWORK LABWORK HALFWAY LABWORK HALFWAY LAB WORK LABWORK LABWORK Reason for Visit History of atrial fi brillation History of hypertension History of Parkinson's disease Acute CVA (cerebrovascular accident) Right arm weakness Chief Complaint RIGHT UPPER EXTREMIT Y WEAKNESS, SLURRED SPEECH RIGHT UPPER EXTREMITY WEAKNESS, SLURRED SPEECH RIGHT UPPER EXTREMITY WEAKNESS, SLURRED SPEECH [facility]FW[facility] LABWORK LABWORK HALFWAY LABWORK LABWORK LABWORK HALFWAY LABWORK HALFWAY LAB WORK HALFWAY LAB WORK LABWORK LABWORK Reason for Visit History of atrial fi brillation History of hypertension History of Parkinson's disease Acute CVA (cerebrovascular accident) Right arm weakness Chief Complaint [facility]FWAY LABWORK LABWORK LABWORK HALFWAY LABWORK HALFWAY LAB WORK HALFWAY LAB WORK LABWORK LABWORK LABWORK HALFWAY LAB WORK Chief Complaint HALFWAY LABWORK HALFWAY LAB WORK HALFWAY LAB WORK LABWORK LABWORK LABWORK HALFWAY LAB WORK HALFWAY LAB WORK HALFWAY LAB WORK Chief Complaint LABWORK LABWORK HALFWAY LAB WORK HALFWAY LAB WORK HALFWAY LAB WORK HALFWAY LABWORK TROUBLE WALKING, UNSTEADY n/v Reason for Visit Abnormality of gait and mobility History of stroke Parkinsonism Polyneuropathy Dementia Chief Complaint HALFWAY LAB WOR K HALFWAY LAB WORK HALFWAY LAB WORK HALFWAY LABWORK TROUBLE WALKING, UNSTEADY n/v [facility] LABWORK Reason for Visit Abnormality of gait and mobility History of stroke Parkinsonism Polyneuropathy Dementia Chief Complaint HALFWAY LAB WOR K HALFWAY LAB WORK HALFWAY LAB WORK HALFWAY LABWORK TROUBLE WALKING, UNSTEADY n/v [facility]FWAY LABWORK HALFWAY LAB WORK HALFWAY LAB WORK Reason for Visit Abnormality of gait and mobility History of stroke Parkinsonism Polyneuropathy Dementia Chief Complaint [facility]FWAY LABWORK TROUBLE WALKING, UNSTEADY n/v [facility]FWAY LABWORK HALFWAY LAB WORK HALFWAY LAB WORK HALFWAY LABWORK HALFWAY LABWORK Reason for Visit Abnormality of gait and mobility History of stroke Parkinsonism Polyneuropathy Dementia Chief Complaint n/v HALFWAY LABWORK HALFWAY LAB WORK HALFWAY LAB WORK HALFWAY LABWORK HALFWAY LABWORK HALFWAY LAB WORK Chief Complaint n/v HALFWAY LABWORK HALFWAY LAB WORK HALFWAY LAB WORK HALFWAY LABWORK HALFWAY LABWORK HALFWAY LAB WORK HALFWAY LABWORK Chief Complaint n/v HALFWAY LABWORK HALFWAY LAB WORK HALFWAY LAB WORK HALFWAY LABWORK HALFWAY LABWORK HALFWAY LAB WORK HALFWAY LABWORK HALFWAY LAB WORK Chief Complaint HALFWAY LABWORK HALFWAY LABWORK HALFWAY LAB WORK HALFWAY LABWORK HALFWAY LAB WORK HALFWAY LAB WORK HALFWAY LAB WORK Chief Complaint HALFWAY LABWORK HALFWAY LAB WORK HALFWAY LABWORK HALFWAY LAB WORK HALFWAY LAB WORK HALFWAY LAB WORK LABWORK Chief Complaint HALFWAY LABWORK HALFWAY LAB WORK HALFWAY LABWORK HALFWAY LAB WORK HALFWAY LAB WORK HALFWAY LAB WORK LABWORK HALFWAY LAB WORK Chief Complaint HALFWAY LAB WOR K HALFWAY LABWORK HALFWAY LAB WORK HALFWAY LAB WORK HALFWAY LAB WORK LABWORK HALFWAY LAB WORK HALFWAY LAB WORK Chief Complaint HALFWAY LAB WOR K HALFWAY LABWORK HALFWAY LAB WORK HALFWAY LAB WORK HALFWAY LAB WORK LABWORK HALFWAY LAB WORK HALFWAY LAB WORK LABWORK Chief Complaint HALFWAY LABWORK HALFWAY LAB WORK HALFWAY LAB WORK HALFWAY LAB WORK LABWORK HALFWAY LAB WORK HALFWAY LAB WORK LABWORK HALFWAY LAB WORK Chief Complaint Admit Date [facility]FW[facility] LAB WORK April 04, 2024 5:00am LABWORK June 16, 2024 1 1:03am LABWORK June 17, 2024 5 :00am HALFW[facility] LAB WORK July 01, 2024 5:00am HALFWAY LAB WORK July 02, 2024 5:00am LABWORK July 03, 2024 5 :00am LABWORK July 05, 2024 5 :00am HALFWAY LAB WORK July 08 5:00am LABWORK July 12, 2024 5:00am HALFWAY LAB WORK July 17 5:00am LABWORK 2024 5:00am HALFWAY LAB WORK July 25 4:00am Chief Complaint Admit Date LABWORK June 16, 2024 1 1:03am LABWORK June 17, 2024 5 :00am HALFWAY LAB WORK July 01, 2024 5:00am HALFWAY LAB WORK July 02, 2024 5:00am LABWORK July 03, 2024 5 :00am LABWORK July 04, 2024 5 :00am LABWORK July 05, 2024 5 :00am HALFWAY LAB WORK July 08 5:00am HALFWAY LAB WORK July 09 5:00am LABWORK July 12, 2024 5:00am HALFWAY LAB WORK July 15 5:00am LABWORK July 16, 2024 5:00am HALFWAY LAB WORK July 17 5:00am LABWORK July 18, 2024 5:00am LABWORK 2024 5:00am HALFWAY LAB WORK July 24 5:00am HALFWAY LAB WORK July 25 4:00am LABWORK July 29, 2024 5:00 am HALFWAY LAB WORK August 12, 2024 4 :00am Chief Complaint Admit Date LABWORK June 16, 2024 1 1:03am LABWORK June 17, 2024 5 :00am HALFWAY LAB WORK July 01, 2024 5:00am HALFWAY LAB WORK July 02, 2024 5:00am LABWORK July 03, 2024 5 :00am LABWORK July 04, 2024 5 :00am LABWORK July 05, 2024 5 :00am HALFWAY LAB WORK July 08 5:00am HALFWAY LAB WORK July 09 5:00am LABWORK July 12, 2024 5:00am HALFWAY LAB WORK July 15 5:00am LABWORK July 16, 2024 5:00am HALFWAY LAB WORK July 17 5:00am LABWORK July 18, 2024 5:00am LABWORK 2024 5:00am HALFWAY LAB WORK July 24 5:00am HALFWAY LAB WORK July 25 4:00am LABWORK July 29, 2024 5:00 am HALFWAY LAB WORK August 12, 2024 4 :00am HALFWAY LAB WORK September 09, 2024 4 :00am Chief Complaint Admit Date LABWORK June 16, 2024 1 1:03am LABWORK June 17, 2024 5 :00am HALFWAY LAB WORK July 01, 2024 5:00am HALFWAY LAB WORK July 02, 2024 5:00am LABWORK July 03, 2024 5 :00am LABWORK July 04, 2024 5 :00am LABWORK July 05, 2024 5 :00am HALFWAY LAB WORK July 08 5:00am HALFWAY LAB WORK July 09 5:00am LABWORK July 12, 2024 5:00am HALFWAY LAB WORK July 15 5:00am LABWORK July 16, 2024 5:00am HALFWAY LAB WORK July 17 5:00am LABWORK July 18, 2024 5:00am LABWORK 2024 5:00am HALFWAY LAB WORK July 24 5:00am HALFWAY LAB WORK July 25 4:00am LABWORK July 29, 2024 5:00 am HALFWAY LAB WORK August 12, 2024 4 :00am HALFWAY LAB WORK September 09, 2024 4 :00am fall, head injury October 09, 2024 7:00p m Chief Complaint Admit Date HALFWAY LAB WORK July 01, 2024 5:00am HALFWAY LAB WORK July 02, 2024 5:00am LABWORK July 03, 2024 5 :00am LABWORK July 04, 2024 5 :00am LABWORK July 05, 2024 5 :00am HALFWAY LAB WORK July 08 5:00am HALFWAY LAB WORK July 09 5:00am LABWORK July 12, 2024 5:00am HALFWAY LAB WORK July 15 5:00am LABWORK July 16, 2024 5:00am HALFWAY LAB WORK July 17 5:00am LABWORK July 18, 2024 5:00am LABWORK 2024 5:00am HALFWAY LAB WORK July 24 5:00am HALFWAY LAB WORK July 25 4:00am LABWORK July 29, 2024 5:00 am HALFWAY LAB WORK August 12, 2024 4 :00am HALFWAY LAB WORK September 09, 2024 4 :00am fall, head injury October 09, 2024 7:00p m HALFWAY LAB WORK October 22, 2024 4:0 0am Additional Source Comments INFORMATION SOURCE (unrecogn ized section and content) DATE CREATED AUTHOR 11/16/2017 [facility] DATE CREATED AUTHOR AUTHOR'S ORGANIZ ATION 04/23/2019 [facility] ([place]) DATE CREATED AUTHOR AUTHOR'S ORGANIZ ATION 12/22/2024 [facility] DATE CREATED AUTHOR AUTHOR'S ORGANIZ ATION 03/01/2025 [facility] DATE CREATED AUTHOR AUTHOR'S ORGANIZ ATION 04/01/2025 [facility] Goals (unrecognized section and content) [...] Inactive Member Role Status Dates Dr. Hortensia Ugner MD Primary Care Provider Active Joao THOMAS [...] Provider Active Start: July 16, 2024 Dr. Meol THOMAS MD Attending Provider Active Start: July [...] October 22, 2024 End: October 22, 2024 Ice Maker Relationship Specialty Start Date End Date [facility] [address] [place] [id number] Specialty Lithographic Stripper Physical Therapy 07/08/13 Fredo Kathleen MD [address], [place] [id number] Specialty Lithographic Stripper Cardiology 07/08/13 Power Avina MD [address] [place], [place] [id number] Specialty Lithographic Stripper Radiation Oncology 07/08/13 Source Comments (unrecognize d section and content) In the event this informatio n is protected by the Federal Confidentiality of Alcohol and Drug Abuse Patient Records regulations: The Federal rules restrict any use of the information to criminally investigate or prosecute any alcohol or drug abuse patient.[facility] Reason for Visit (unrecogniz ed section [...] BE BASED ON THE PRIMARY CLINICAL RECORDS. [facility] [employer] [facility]. provides no warranty or guarantee of the accuracy or completeness of information in this document.
[2025-05-26 07:03] LABS: INR Fingerstick 2.6
== END ==
PROVIDERS: Referring Provider Nurse Practitioner Family; Visit Provider Nurse Practitioner Family
DX: Z79.01 Long term (current) use of anticoagulants (principal)
CPT/HCPCS: 36416; 85610